=== PATIENT | female | born 1965 | race Caucasian/White ===

== ENCOUNTER → 2017-11-01 15:20 | Outpatient (CLI) | payer MEDICARE, MEDICAID, SELFPAY ==
[2017-11-01 17:20] LABS: Absolute Lymphocyte Count 2.15 X10^3/ul (0.83-4.51); Absolute Neutrophil Count 4.9 X10^3/uL (2.0-7.7); Basophil# 0.01 X10^3/uL; Basophil% 0.1 % (0-1); Eosinophil# 0.13 X10^3/uL; Eosinophils% 1.6 % (0-5); Hematocrit 39.1 % (37-47); Hemoglobin 12.7 g/dl (12.0-15.0); Lymphocyte # 2.15 X10^3/ul (4.0); Lymphocyte % 27.2 % (19-41); Mean Corp Hgb Conc 32.5 g/gl (32-36); Mean Corpuscular Volume 92.4 fL (81-99); Mean Platelet Vol. 9.5 fl (6.2-12.0); Monocyte# 0.69 X10^3/uL; Monocyte% 8.7 % (0-10); Neutrophil # 4.86 X10^3/uL (2.7-7.7); Neutrophil % 61.6 % (47-70); Platelet Count 293 K/mm3 (150-450); RBC Distribution Width CV 14.3 % (11.6-14.6); RBC Distribution Width SD 46.8 fl (35.1-43.9); Red Blood Count 4.23 M/mm3 (4.2-5.4); White Blood Count 7.9 K/mm3 (4.4-11.0)
[2017-11-01 17:30] LABS: POSITIVE COUNT NO; POSITIVE DIFFERENTIAL NO; POSITIVE MORPHOLOGY NO
[2017-11-01 17:31] LABS: ALB/GLOB Ratio 0.7 RATIO (0.9-2.4); AST(SGOT) 21 U/L (15-37); Alanine Aminotransfer ALT/SGPT 36 U/L (13-56); Albumin, Serum 3.3 g/dL (3.2-5.0); Alkaline Phosphatase 97 U/L (45-117); Anion Gap 9 (5-15); BUN 18 mg/dL (7-18); BUN/Creat Ratio 35.2 RATIO (10-20); Calcium,Total 8.4 mg/dL (8.5-10.1); Chloride 100 mmol/L (98-107); Creatinine, Serum 0.51 mg/dL (0.55-1.02); EST Glomerular Filtration Rate 133 mL/min (>60); Est Glom Filt Rate - Afr Amer 161 mL/min (>60); Globulin 4.7 g/dL (2.2-4.2); Glucose 91 mg/dL (74-106); Potassium 3.8 mmol/L (3.5-5.1); Sodium Level 140 mmol/L (136-145); Thyroid Stim Hormone (TSH) 1.01 uIU/mL (0.358-3.74)
[2017-11-03 10:28] LABS: Vitamin D,25 Hydroxy 67.4 ng/mL (19.95-100.01)
== END ==
PROVIDERS: Family Provider Family Medicine Geriatric Medicine; PCP Family Medicine Geriatric Medicine; Visit Provider Family Medicine Geriatric Medicine
DX: E11.9 Type 2 diabetes mellitus without complications (principal); E55.9 Vitamin D deficiency, unspecified; I10 Essential (primary) hypertension
CPT/HCPCS: 36415; 80053; 82306; 84443; 85025

== ENCOUNTER → 2017-11-24 12:44 | Outpatient (CLI) | payer MEDICARE, MEDICAID, SELFPAY | PROVIDERS: Family Provider Family Medicine Geriatric Medicine; PCP Family Medicine Geriatric Medicine; Visit Provider Family Medicine Geriatric Medicine | DX: R68.83 Chills (without fever) (principal) | CPT/HCPCS: 87633 ==

== ENCOUNTER → 2018-01-10 11:16 | Outpatient (CLI) | payer MEDICARE, MEDICAID, SELFPAY ==
--- NOTE | 2018-01-10 11:20 | RAD_ITS ---
STUDY: X-RAY - CERVICAL SPINE REASON FOR EXAM: Female, 52 years old. Chronic neck pain which has recently worsened. TECHNIQUE: 4 view(s) of the cervical spine were obtained. COMPARISON: August 03, 2010. FINDINGS: There are degenerative changes of the anterior atlantoaxial articulation. Normal odontoid process. Normal cervical lordosis. There is multi-level endplate spondylosis.. This is most marked at C5-6 and C6-7. Normal disc space heights. There is no evidence of acute fracture or loss of vertebral axial height. There is maintenance of normal alignment. The soft tissue structures are unremarkable. RAD/Cerv Spine 2 or 3 Views IMPRESSION: Stable degenerative changes of the cervical spine. Electronically Signed: Joes Donovan DO at 13:39 EDT Tel [phone], Service support ,
== END ==
PROVIDERS: Family Provider Family Medicine Geriatric Medicine; PCP Family Medicine Geriatric Medicine; Visit Provider Anesthesiology Pain Medicine
DX: M54.2 Cervicalgia (principal); M25.519 Pain in unspecified shoulder
CPT/HCPCS: 72040

== ENCOUNTER → 2018-03-09 12:26 | Outpatient (CLI) | payer MEDICARE, MEDICAID, SELFPAY | PROVIDERS: Family Provider Family Medicine Geriatric Medicine; PCP Family Medicine Geriatric Medicine; Visit Provider Family Medicine Geriatric Medicine | DX: R68.83 Chills (without fever) (principal) | CPT/HCPCS: 87633 ==

== ENCOUNTER → 2018-05-09 15:10 | Outpatient (CLI) | payer MEDICARE, MEDICAID, SELFPAY ==
[2018-05-09 16:17] LABS: Absolute Lymphocyte Count 2.68 X10^3/ul (0.83-4.51); Absolute Neutrophil Count 4.2 X10^3/uL (2.0-7.7); Basophil# 0.03 X10^3/uL; Basophil% 0.4 % (0-1); Eosinophil# 0.09 X10^3/uL; Eosinophils% 1.2 % (0-5); Hematocrit 43.3 % (37-47); Hemoglobin 14.1 g/dl (12.0-15.0); Lymphocyte # 2.68 X10^3/ul (4.0); Lymphocyte % 34.6 % (19-41); Mean Corp Hgb Conc 32.6 g/gl (32-36); Mean Corpuscular Hgb 30.3 pg (27.0-32.0); Mean Corpuscular Volume 93.1 fL (81-99); Mean Platelet Vol. 9.6 fl (6.2-12.0); Monocyte# 0.68 X10^3/uL; Monocyte% 8.8 % (0-10); Neutrophil # 4.23 X10^3/uL (2.7-7.7); Neutrophil % 54.5 % (47-70); Platelet Count 365 K/mm3 (150-450); RBC Distribution Width SD 46.1 fl (35.1-43.9); Red Blood Count 4.65 M/mm3 (4.2-5.4); White Blood Count 7.8 K/mm3 (4.4-11.0)
[2018-05-09 16:19] LABS: POSITIVE DIFFERENTIAL NO
[2018-05-09 16:20] LABS: POSITIVE COUNT NO; POSITIVE MORPHOLOGY NO
[2018-05-09 16:35] LABS: Vitamin D,25 Hydroxy 59.2 ng/mL (29.95-100.01)
[2018-05-09 16:37] LABS: ALB/GLOB Ratio 0.8 RATIO (0.9-2.4); AST(SGOT) 49 U/L (15-37); Alanine Aminotransfer ALT/SGPT 57 U/L (13-56); Albumin, Serum 3.6 g/dL (3.2-5.0); Alkaline Phosphatase 97 U/L (45-117); Anion Gap 9 (5-15); BUN 15 mg/dL (7-18); BUN/Creat Ratio 21.6 RATIO (10-20); Calcium,Total 8.3 mg/dL (8.5-10.1); Chloride 99 mmol/L (98-107); EST Glomerular Filtration Rate 94 mL/min (>60); Est Glom Filt Rate - Afr Amer 113 mL/min (>60); Globulin 4.7 g/dL (2.2-4.2); Glucose 174 mg/dL (74-106); Potassium 3.9 mmol/L (3.5-5.1); Protein, Total 8.3 g/dL (6.4-8.2); Sodium Level 138 mmol/L (136-145); Thyroid Stim Hormone (TSH) 1.57 uIU/mL (0.358-3.74)
[2018-05-11 14:20] LABS: Hep C Antibodies 0.1 s/co ratio (0.0-0.9)
== END ==
PROVIDERS: Family Provider Family Medicine Geriatric Medicine; PCP Family Medicine Geriatric Medicine; Visit Provider Family Medicine Geriatric Medicine
DX: E11.9 Type 2 diabetes mellitus without complications (principal); E55.9 Vitamin D deficiency, unspecified; I10 Essential (primary) hypertension; Z13.89 Encounter for screening for other disorder
CPT/HCPCS: 36415; 80053; 82306; 84443; 85025; 86803

== ENCOUNTER → 2018-08-14 15:37 | Outpatient (CLI) | payer MEDICARE, MEDICAID, SELFPAY ==
[2018-08-14 16:44] LABS: Absolute Lymphocyte Count 2.43 X10^3/ul (0.83-4.51); Absolute Neutrophil Count 4.5 X10^3/uL (2.0-7.7); Basophil# 0.01 X10^3/uL; Basophil% 0.1 % (0-1); Eosinophil# 0.11 X10^3/uL; Eosinophils% 1.4 % (0-5); Hematocrit 42.2 % (37-47); Hemoglobin 13.6 g/dl (12.0-15.0); Lymphocyte # 2.43 X10^3/ul (4.0); Lymphocyte % 31.9 % (19-41); Mean Corp Hgb Conc 32.2 g/gl (32-36); Mean Corpuscular Hgb 29.8 pg (27.0-32.0); Mean Corpuscular Volume 92.3 fL (81-99); Mean Platelet Vol. 9.5 fl (6.2-12.0); Monocyte# 0.56 X10^3/uL; Monocyte% 7.3 % (0-10); Neutrophil % 59.2 % (47-70); Platelet Count 351 K/mm3 (150-450); RBC Distribution Width CV 14.4 % (11.6-14.6); RBC Distribution Width SD 47.8 fl (35.1-43.9); Red Blood Count 4.57 M/mm3 (4.2-5.4); White Blood Count 7.6 K/mm3 (4.4-11.0)
[2018-08-14 17:00] LABS: POSITIVE COUNT NO; POSITIVE DIFFERENTIAL NO; POSITIVE MORPHOLOGY NO
[2018-08-14 17:13] LABS: Vitamin D,25 Hydroxy 84.6 ng/mL (29.95-100.01)
[2018-08-14 17:14] LABS: ALB/GLOB Ratio 0.7 RATIO (0.9-2.4); AST(SGOT) 31 U/L (15-37); Alanine Aminotransfer ALT/SGPT 42 U/L (13-56); Albumin, Serum 3.5 g/dL (3.2-5.0); Alkaline Phosphatase 116 U/L (45-117); Anion Gap 9 (5-15); BUN 14 mg/dL (7-18); BUN/Creat Ratio 21.5 RATIO (10-20); Calcium,Total 8.7 mg/dL (8.5-10.1); Chloride 101 mmol/L (98-107); Creatinine, Serum 0.65 mg/dL (0.55-1.02); EST Glomerular Filtration Rate 101 mL/min (>60); Est Glom Filt Rate - Afr Amer 122 mL/min (>60); Globulin 4.7 g/dL (2.2-4.2); Glucose 151 mg/dL (74-106); Potassium 4.1 mmol/L (3.5-5.1); Protein, Total 8.2 g/dL (6.4-8.2); Sodium Level 142 mmol/L (136-145); Thyroid Stim Hormone (TSH) 2.11 uIU/mL (0.358-3.74); Uric Acid 3.9 mg/dL (2.6-6.0)
== END ==
PROVIDERS: Family Provider Family Medicine Geriatric Medicine; PCP Family Medicine Geriatric Medicine; Visit Provider Family Medicine Geriatric Medicine
DX: E11.9 Type 2 diabetes mellitus without complications (principal); E55.9 Vitamin D deficiency, unspecified; I10 Essential (primary) hypertension; M10.9 Gout, unspecified
CPT/HCPCS: 36415; 80053; 82306; 84443; 84550; 85025

== ENCOUNTER → 2018-10-18 10:44 | Outpatient (CLI) | payer MEDICARE, MEDICAID, SELFPAY ==
[2018-10-18 10:29] VITALS: BMI 41.0
--- NOTE | 2018-10-18 10:46 | RAD_ITS ---
STUDY: X-RAY - LEFT KNEE REASON FOR EXAM: Female, 53 years old. Pain. TECHNIQUE: 4 view(s) of the knee. COMPARISON: None. FINDINGS: Normal visualized distal femur. Normal visualized proximal tibia and fibula. Normal proximal tibiofibular articulation. There is moderate degenerative arthrosis of the medial femorotibial compartment with moderate joint space narrowing. There is moderate degenerative arthrosis of the lateral femorotibial compartment with moderate joint space narrowing. There is moderate degenerative arthrosis of the patellofemoral articulation. There is a soft tissue prominence in the suprapatellar region suggesting a small volume joint effusion. The soft tissue structures are unremarkable. RAD/Knee 4 or More Views IMPRESSION: Degenerative arthrosis. Small joint effusion. Electronically Signed: Dannielle Leroy MD at 22:47 EST Tel , Service support ,
--- NOTE | 2018-10-18 10:46 | RAD_ITS ---
STUDY: X-RAY - RIGHT KNEE REASON FOR EXAM: Female, 53 years old. Pain. TECHNIQUE: 4 view(s) of the knee. COMPARISON: None. FINDINGS: Normal visualized distal femur. Normal visualized proximal tibia and fibula. Normal proximal tibiofibular articulation. There is no demonstrated fracture. There is mild degenerative arthrosis of the medial femorotibial compartment. Normal lateral femorotibial compartment. There is mild degenerative arthrosis of the patellofemoral articulation. There is no demonstrated joint effusion. The soft tissue structures are unremarkable. RAD/Knee 4 or More Views IMPRESSION: Mild degenerative changes. No acute abnormalities. Electronically Signed: Ivan Dovre MD at 16:00 EST , Service support ,
== END ==
PROVIDERS: Family Provider Family Medicine Geriatric Medicine; PCP Family Medicine Geriatric Medicine; Referring Provider Orthopaedic Surgery; Visit Provider Orthopaedic Surgery
DX: M25.561 Pain in right knee (principal); M25.562 Pain in left knee
CPT/HCPCS: 73564

== ENCOUNTER → 2019-01-02 | Outpatient (CLI) | payer MEDICARE, MEDICAID, SELFPAY ==
[2018-11-08 10:05] VITALS: BMI 41.0
== END | disposition home or self-care (01) ==
LOC: PSN 09:15
PROVIDERS: Family Provider Family Medicine Geriatric Medicine; PCP Family Medicine Geriatric Medicine; Referring Provider Family Medicine Geriatric Medicine; Visit Provider Family Medicine Geriatric Medicine
DX: R68.83 Chills (without fever) (principal)
CPT/HCPCS: 87633

== ENCOUNTER → 2019-01-29 | Outpatient (CLI) | payer MEDICARE, MEDICAID, SELFPAY ==
[2018-11-08 10:05] VITALS: BMI 41.0
--- NOTE | 2019-01-29 17:16 | RAD_ITS ---
STUDY: X-RAY CHEST REASON FOR EXAM: Female, 53 years old. Shortness of breath TECHNIQUE: PA and lateral views of the chest COMPARISON: X-Ray Chest history 2016 FINDINGS: Mild bibasilar atelectasis is present. There is no consolidation. There are no pleural effusions. There is no pneumothorax. The heart is normal in size. The visualized osseous structures are within normal limits. RAD/Chest PA and Lateral IMPRESSION: No acute thoracic pathology. Electronically Signed: Tereso Harrison, at 17:59 EDT Tel , Service support ,
== END | disposition home or self-care (01) ==
LOC: RAD 17:12
PROVIDERS: Family Provider Family Medicine Geriatric Medicine; PCP Family Medicine Geriatric Medicine; Referring Provider Family Medicine Geriatric Medicine; Visit Provider Family Medicine Geriatric Medicine
DX: J40 Bronchitis, not specified as acute or chronic (principal); R68.83 Chills (without fever)
CPT/HCPCS: 71046; 87633

== ENCOUNTER → 2019-01-31 | Outpatient (CLI) | payer MEDICARE, MEDICAID, SELFPAY ==
[2018-11-08 10:05] VITALS: BMI 41.0
[2019-01-31 17:36] LABS: Absolute Lymphocyte Count 2.68 X10^3/ul (0.83-4.51); Absolute Neutrophil Count 5.7 X10^3/uL (2.0-7.7); Basophil# 0.01 X10^3/uL; Basophil% 0.1 % (0-1); Eosinophil# 0.02 X10^3/uL; Eosinophils% 0.2 % (0-5); Hematocrit 41.2 % (37-47); Hemoglobin 13.3 g/dl (12.0-15.0); Lymphocyte # 2.68 X10^3/ul (4.0); Lymphocyte % 28.9 % (19-41); Mean Corp Hgb Conc 32.3 g/gl (32-36); Mean Corpuscular Hgb 29.4 pg (27.0-32.0); Mean Corpuscular Volume 90.9 fL (81-99); Mean Platelet Vol. 9.5 fl (6.2-12.0); Monocyte# 0.81 X10^3/uL; Monocyte% 8.7 % (0-10); Neutrophil # 5.69 X10^3/uL (2.7-7.7); Neutrophil % 61.6 % (47-70); Platelet Count 365 K/mm3 (150-450); RBC Distribution Width CV 15.3 % (11.6-14.6); RBC Distribution Width SD 49.2 fl (35.1-43.9); Red Blood Count 4.53 M/mm3 (4.2-5.4); White Blood Count 9.3 K/mm3 (4.4-11.0)
[2019-01-31 17:48] LABS: POSITIVE COUNT NO; POSITIVE DIFFERENTIAL NO; POSITIVE MORPHOLOGY NO
[2019-01-31 17:53] LABS: ALB/GLOB Ratio 0.8 RATIO (0.9-2.4); AST(SGOT) 24 U/L (15-37); Alanine Aminotransfer ALT/SGPT 39 U/L (13-56); Albumin, Serum 3.5 g/dL (3.2-5.0); Alkaline Phosphatase 96 U/L (45-117); Anion Gap 7 (5-15); BUN 18 mg/dL (7-18); BUN/Creat Ratio 24.3 RATIO (10-20); Calcium,Total 8.8 mg/dL (8.5-10.1); Chloride 108 mmol/L (98-107); Creatinine, Serum 0.74 mg/dL (0.55-1.02); EST Glomerular Filtration Rate 87 mL/min (>60); Est Glom Filt Rate - Afr Amer 105 mL/min (>60); Globulin 4.2 g/dL (2.2-4.2); Glucose 82 mg/dL (74-106); Potassium 3.7 mmol/L (3.5-5.1); Protein, Total 7.7 g/dL (6.4-8.2); Sodium Level 141 mmol/L (136-145); Thyroid Stim Hormone (TSH) 0.34 uIU/mL (0.358-3.74)
[2019-01-31 17:55] LABS: Vitamin D,25 Hydroxy 88.5 ng/mL (29.95-100.01)
== END | disposition home or self-care (01) ==
LOC: POLAB3 16:19
PROVIDERS: Family Provider Family Medicine Geriatric Medicine; PCP Family Medicine Geriatric Medicine; Visit Provider Family Medicine Geriatric Medicine
DX: E11.9 Type 2 diabetes mellitus without complications (principal); E55.9 Vitamin D deficiency, unspecified; I10 Essential (primary) hypertension
CPT/HCPCS: 36415; 80053; 82306; 84443; 85025

== ENCOUNTER → 2019-05-30 11:21 | Outpatient (CLI) | payer MEDICARE, MEDICAID, SELFPAY ==
[2018-11-08 10:05] VITALS: BMI 41.0
[2019-05-30 17:35] LABS: Absolute Lymphocyte Count 1.79 X10^3/uL (0.83-4.51); Absolute Neutrophil Count 4.7 X10^3/uL (2.0-7.7); Basophil# 0.02 X10^3/uL; Basophil% 0.3 % (0-1); Eosinophil# 0.06 X10^3/uL; Eosinophils% 0.8 % (0-5); Hemoglobin 13.4 g/dL (12.0-15.0); Lymphocyte # 1.79 X10^3/ul (4.0); Lymphocyte % 24.9 % (19-41); Mean Corp Hgb Conc 31.9 g/dL (32-36); Mean Corpuscular Hgb 30.4 pg (27.0-32.0); Mean Corpuscular Volume 95.2 fL (81-99); Mean Platelet Vol. 9.4 fl (6.2-12.0); Monocyte# 0.56 X10^3/uL; Monocyte% 7.8 % (0-10); NRBC Flagged by Analyzer 0.4 % (0-5); Neutrophil # 4.69 X10^3/uL (2.7-7.7); Neutrophil % 65.4 % (47-70); Platelet Count 325 K/mm3 (150-450); RBC Distribution Width CV 14.1 % (11.6-14.6); RBC Distribution Width SD 48.5 fl (35.1-43.9); Red Blood Count 4.41 M/mm3 (4.2-5.4); White Blood Count 7.2 K/mm3 (4.4-11.0)
[2019-05-30 17:55] LABS: Vitamin D,25 Hydroxy 80.1 ng/mL (29.95-100.01)
[2019-05-30 17:57] LABS: ALB/GLOB Ratio 0.8 RATIO (0.9-2.4); AST(SGOT) 25 U/L (15-37); Alanine Aminotransfer ALT/SGPT 34 U/L (13-56); Albumin, Serum 3.3 g/dL (3.2-5.0); Alkaline Phosphatase 101 U/L (45-117); Anion Gap 9 (5-15); BUN 18 mg/dL (7-18); BUN/Creat Ratio 27.1 RATIO (10-20); Calcium,Total 8.1 mg/dL (8.5-10.1); Chloride 105 mmol/L (98-107); Creatinine, Serum 0.66 mg/dL (0.55-1.02); EST Glomerular Filtration Rate 98 mL/min (>60); Est Glom Filt Rate - Afr Amer 119 mL/min (>60); Globulin 4.4 g/dL (2.2-4.2); Glucose 148 mg/dL (74-106); Protein, Total 7.7 g/dL (6.4-8.2); Sodium Level 142 mmol/L (136-145); Thyroid Stim Hormone (TSH) 0.21 uIU/mL (0.358-3.74)
== END ==
PROVIDERS: Family Provider Family Medicine Geriatric Medicine; PCP Family Medicine Geriatric Medicine; Visit Provider Family Medicine Geriatric Medicine
DX: E11.9 Type 2 diabetes mellitus without complications (principal); E55.9 Vitamin D deficiency, unspecified; I10 Essential (primary) hypertension
CPT/HCPCS: 36415; 80053; 82306; 84443; 85025

== ENCOUNTER → 2019-06-20 16:42 | Outpatient (CLI) | payer MEDICARE, MEDICAID, SELFPAY ==
[2018-11-08 10:05] VITALS: BMI 41.0
--- NOTE | 2019-06-20 16:44 | BI_ITS ---
BILATERAL DIGITAL MAMMOGRAM WITH TOMOSYNTHESIS: Mediolateraloblique and craniocaudal views demonstrate no evidence of dominant parenchymal masses. No cluster of microcalcifications or architectural distortion is seen. No evidence of skin thickening is identified. There has been no significant change since 04/15/2015 . Breast Density: The breast tissue is almost entirely fatty. CAD was used to assist in final assessment. BI/SCREEN MAMM (CAD) W/RACHAEL BILAT IMPRESSION: NORMAL MAMMOGRAM BILATERALLY.) ASSESSMENT CATEGORY: FINAL ASSESSMENT: BI-RAD CATEGORY I (NEGATIVE) YEARLY MAMMOGRAPHY RECOMMENDED Approximately 10% of breast cancers are not detected by mammography. A normal mammogram should not delay biopsy of a clinically suspicious abnormality. [id number] Electronically Signed: Phuc Strange, at 18:02 EDT Tel , Service support ,
== END ==
PROVIDERS: Family Provider Family Medicine Geriatric Medicine; PCP Family Medicine Geriatric Medicine; Referring Provider Family Medicine Geriatric Medicine; Visit Provider Family Medicine Geriatric Medicine
DX: Z12.31 Encounter for screening mammogram for malignant neoplasm of breast (principal)
CPT/HCPCS: 77063; 77067

== ENCOUNTER → 2019-08-28 15:45 | Outpatient (CLI) | payer MEDICARE, MEDICAID, SELFPAY ==
[2018-11-08 10:05] VITALS: BMI 41.0
[2019-08-28 17:18] LABS: Absolute Lymphocyte Count 2.65 X10^3/uL (0.83-4.51); Absolute Neutrophil Count 3.7 X10^3/uL (2.0-7.7); Basophil# 0.04 X10^3/uL; Basophil% 0.6 % (0-1); Eosinophil# 0.07 X10^3/uL; Hematocrit 43.3 % (37-47); Hemoglobin 13.9 g/dL (12.0-15.0); Lymphocyte # 2.65 X10^3/ul (4.0); Lymphocyte % 37.3 % (19-41); Mean Corp Hgb Conc 32.1 g/dL (32-36); Mean Corpuscular Hgb 30.6 pg (27.0-32.0); Mean Corpuscular Volume 95.4 fL (81-99); Mean Platelet Vol. 9.4 fl (6.2-12.0); Monocyte# 0.59 X10^3/uL; Monocyte% 8.3 % (0-10); NRBC Flagged by Analyzer 0 % (0-5); Neutrophil # 3.71 X10^3/uL (2.7-7.7); Neutrophil % 52.1 % (47-70); Platelet Count 326 K/mm3 (150-450); RBC Distribution Width CV 14.9 % (11.6-14.6); RBC Distribution Width SD 50.6 fl (35.1-43.9); Red Blood Count 4.54 M/mm3 (4.2-5.4); White Blood Count 7.1 K/mm3 (4.4-11.0)
[2019-08-28 17:37] LABS: Vitamin D,25 Hydroxy 65.3 ng/mL (29.95-100.01)
[2019-08-28 17:55] LABS: ALB/GLOB Ratio 0.8 RATIO (0.9-2.4); AST(SGOT) 32 U/L (15-37); Alanine Aminotransfer ALT/SGPT 39 U/L (13-56); Albumin, Serum 3.6 g/dL (3.2-5.0); Alkaline Phosphatase 109 U/L (45-117); Anion Gap 5 (5-15); BUN 16 mg/dL (7-18); BUN/Creat Ratio 21.3 RATIO (10-20); Calcium,Total 8.1 mg/dL (8.5-10.1); Chloride 100 mmol/L (98-107); Creatinine, Serum 0.75 mg/dL (0.55-1.02); EST Glomerular Filtration Rate 85 mL/min (>60); Est Glom Filt Rate - Afr Amer 103 mL/min (>60); Globulin 4.4 g/dL (2.2-4.2); Glucose 148 mg/dL (74-106); Potassium 3.5 mmol/L (3.5-5.1); Sodium Level 138 mmol/L (136-145)
== END ==
PROVIDERS: Family Provider Family Medicine Geriatric Medicine; PCP Family Medicine Geriatric Medicine; Visit Provider Family Medicine Geriatric Medicine
DX: E11.9 Type 2 diabetes mellitus without complications (principal); E55.9 Vitamin D deficiency, unspecified; I10 Essential (primary) hypertension
CPT/HCPCS: 36415; 80053; 82306; 84443; 85025

== ENCOUNTER → 2019-10-24 15:57 | Outpatient (CLI) | payer MEDICARE, MEDICAID, SELFPAY ==
[2019-10-16 11:46] VITALS: BMI 41.0
--- NOTE | 2019-10-24 16:01 | CT_ITS ---
HISTORY: [facility] PLANNING TECHNIQUE: Noncontrast bone protocol CT of the left lower extremity was performed without contrast per [facility] planning protocol. 2D reformats were performed by the technologist. Number of images including paperwork: [phone]. A radiation dose optimization technique was used for this scan. COMPARISON: Left knee 10/18/2018 FINDINGS: BONES: No acute fracture. JOINTS: No subluxation. Mild to moderate degenerative changes of the right hip. Severe tricompartmental degenerative changes. Small to moderate sized left knee joint effusion. SOFT TISSUES: Vascular calcifications. FOREIGN BODY: No radiopaque foreign body. Moderate amount of stool in the visualized colon. CT/Extremity Lower without Contra IMPRESSION: No acute findings. Severe degenerative changes of the left knee. Left knee joint effusion. Individualized dose optimization techniques were used for this CT. at 0547 Reported and signed by: Charissa Michelle MD Electronically Signed: Charissa Michelle MD at 5:46 EST Tel , Service support ,
== END ==
PROVIDERS: PCP Family Medicine Geriatric Medicine; Referring Provider Orthopaedic Surgery; Visit Provider Orthopaedic Surgery
DX: M17.12 Unilateral primary osteoarthritis, left knee (principal)
CPT/HCPCS: 73700

== ENCOUNTER 2019-11-12 10:30 | Observation (INO) | payer MEDICARE, MEDICAID, SELFPAY ==
[2019-10-16 11:46] VITALS: BMI 41.0
[2019-10-28 14:38] VITALS: BMI 41.0
[2019-10-29 11:03] VITALS: BP 117/72; PULSE 86; RESP 16; TEMP 36.6; O2SAT 94; BMI 38.9
--- NOTE | 2019-10-29 11:10 | SDCEKG_ITS ---
Test Reason : Blood Pressure : / mmHG Vent. Rate : 082 BPM Atrial Rate : 082 BPM P-R Int : 152 ms QRS Dur : 086 ms QT Int : 382 ms P-R-T Axes : 047 -08 019 degrees QTc Int : 446 ms Normal sinus rhythm Normal ECG Confirmed by JONI VEGA, TEJAS ([id number]), fashion editor JG JUAREZ ([id number]) on 10/30/2019 9:19:39 AM Referred By: Clyde Almanza Confirmed By:TEJAS QUINONES MD
[2019-10-29 11:39] LABS: Hematocrit 40.2 % (37-47); Hemoglobin 13.1 g/dL (12.0-15.0); Mean Corp Hgb Conc 32.6 g/dL (32-36); Mean Corpuscular Hgb 30.8 pg (27.0-32.0); Mean Corpuscular Volume 94.4 fL (81-99); Platelet Count 294 K/mm3 (150-450); RBC Distribution Width CV 14.4 % (11.6-14.6); RBC Distribution Width SD 49.4 fl (35.1-43.9); Red Blood Count 4.26 M/mm3 (4.2-5.4); White Blood Count 5.7 K/mm3 (4.4-11.0)
[2019-10-29 11:48] LABS: Prothrombin Time (Protime)PT. 13.3 SECONDS (11.7-14.9)
[2019-10-29 11:49] LABS: Partial Thromboplast Time 29.2 Seconds (24.1-36.2)
[2019-10-29 12:03] LABS: AST(SGOT) 24 U/L (15-37); Alanine Aminotransfer ALT/SGPT 32 U/L (13-56); Albumin, Serum 3.2 g/dL (3.2-5.0); Alkaline Phosphatase 86 U/L (45-117); Anion Gap 6 (5-15); BUN 16 mg/dL (7-18); Bilirubin, Direct 0.14 mg/dL (0.00-0.30); Calcium,Total 7.7 mg/dL (8.5-10.1); Chloride 108 mmol/L (98-107); Creatinine, Serum 0.73 mg/dL (0.55-1.02); EST Glomerular Filtration Rate 88 mL/min (>60); Est Glom Filt Rate - Afr Amer 107 mL/min (>60); Estimated Creatinine Clearance 87.84 ml/min; Glucose 98 mg/dL (74-106); Potassium 3.8 mmol/L (3.5-5.1); Protein, Total 7.2 g/dL (6.4-8.2); Sodium Level 143 mmol/L (136-145); Thyroid Stim Hormone (TSH) 2.62 uIU/mL (0.358-3.74)
[2019-10-29 12:12] LABS: Hemoglobin A1c 6.7 % (4.2-6.3)
--- NOTE | 2019-11-11 15:06 | PCM.HP.BLA ---
History and Physical Date of Admission: 11/11/19 Intake Vital Signs 10/28/19 BMI 41.0 Intake Visit Reasons: left knee Is patient in pain?: Yes Allergies latex Allergy (Verified 10/18/18 10:29) Rash tetanus and diphtheria toxoids [Tetanus&Diphtheria Toxoid] Allergy (Verified 10/18/18 10:29) Anaphylaxis Medications Albuterol Aerosols [Ventolin Aerosols] 2.5 mg INHALATION Q6H PRN 11/13/15 [History Confirmed 10/28/19] Aspirin [Aspirin, Baby] 81 mg PO DAILY@0800 11/13/15 [History Confirmed 10/28/19] Calcium Carbonate/Vitamin D3 [Oysco D Tablet] 1 ea PO DAILY 11/13/15 [History Confirmed 10/28/19] Ferrous Sulfate [Iron Supplement] 325 mg PO DAILY 11/13/15 [History Confirmed 10/28/19] Atorvastatin Calcium [Lipitor] 80 mg PO QHS 04/28/16 [History Confirmed 10/28/19] Albuterol IH (ProAir) [Proair Hfa] 2 puff INHALATION 4X/DAY PRN PRN #1 inhaler 10/07/16 [Rx Confirmed 10/28/19] Duloxetine Hcl [Cymbalta] 120 mg PO QHS #60 cap 10/07/16 [Rx Confirmed 10/28/19] Acetaminophen [Tylenol Tablet] 650 mg PO Q6H PRN PRN tab 04/21/17 [Rx Confirmed 10/28/19] Cilostazol [Pletal] 100 mg PO BIDAC #1 tab 05/06/17 [Rx Confirmed 10/28/19] celecoxib 200 mg capsule 200 mg PO DAILY 10/18/18 [History Confirmed 10/28/19] cyclobenzaprine 10 mg tablet 10 mg PO TID 10/18/18 [History Confirmed 10/28/19] empagliflozin 25 mg tablet 25 mg PO DAILY 10/18/18 [History Confirmed 10/28/19] levothyroxine 175 mcg tablet 175 mcg PO DAILY 10/18/18 [History Confirmed 10/28/19] lisinopril 5 mg tablet 5 mg PO DAILY 10/18/18 [History Confirmed 10/28/19] loratadine 10 mg capsule 10 mg PO DAILY 10/18/18 [History Confirmed 10/28/19] metformin 1,000 mg tablet 1,000 mg PO DAILY 10/18/18 [History Confirmed 10/28/19] metoprolol succinate 200 mg capsule sprinkle, ext. release 24 hr 200 mg PO DAILY 10/18/18 [History Confirmed 10/28/19] montelukast 10 mg tablet 10 mg PO QPM 10/18/18 [History Confirmed 10/28/19] omeprazole 40 mg capsule,delayed release 40 mg PO DAILY 10/18/18 [History Confirmed 10/28/19] hydrocodone 5 mg-acetaminophen 325 mg tablet 1 tab PO Q6H PRN tab 10/16/19 [History Confirmed 10/28/19] PFSH Medical History (Updated 09/13/17 @ 09:21 by Yudy Coon MD) Depression (Acute) Dermatitis (Acute) Hyperlipemia (Acute) Social History (Updated 10/28/19 @ 15:21 by Clyde Almanza DO) Smoking Status: Former smoker HPI left knee: Details: Parts of this documentation were recorded by a scribe, this documentation accurately reflects the service provided and the decisions made by me, Clyde Almanza DO 10/28/19 0754. REMI TREVINO is a 54 year old F here today for left knee pain and patient does state that she had a recent fall. She tripped and landed directly on the anterior left knee, there is a scab over the abrasion she got. Denies numbness, tingling or other associated symptoms. Patient is ambulating with a cane today. ROS Musc Reports as per HPI, Reports abnormal walking, Reports joint pain, Reports muscle weakness Skin/Breast Reports system reviewed and no additional complaints, except as docu Neuro Yes system reviewed and no additional complaints, except as docu, Yes abnormal walking Ortho Exam Left Knee Skin/Wound: No ecchymosis, No erythema, Yes swelling Knee ROM: Yes ROM-Extension -20 to 0, No ROM-Flexion 0-140 Examination: Yes Pain with flexion KNEE: abrasion anterior left knee with scabbing no sign of infection. Office Procedures Iovera Details:: Preoperative diagnosis : left knee pain Postoperative diagnosis: Same Procedure: Cryotherapy with Iovera device to anterior femoral cutaneous nerve and 2 branches of the infrapatellar saphenous nerve III nerves in total Description of procedure: Patient was brought back to the procedure room the operative extremity was identified by both patient and physician. The PIP flexion crease was measured to the midpoint of the patella and this distance was divided in 3 resulting in 10 cm location proximal to the midpoint of the patella. This line was extended medial and lateral to the extent of the edges of the patella. This was our treatment line for the anterior femoral cutaneous nerve. A second treatment line was made 5 cm medial to the inferior pole of the patella and 5 cm distally. The leg was prepped with alcohol and Betadine. Lidocaine with epi was used along the treatment lines. Using the Iovera device treatment lines were treated with 1 minute cycles. Reproduction of paresthesias was monitored in the area of nerve distribution. Once all 3 nerves were treated across the 2 treatment lines patient was cleaned and a light dressing with 4 x 4 and Mustapha wrap was applied. Patient tolerated the procedure without complication. Assessment & Plan Problems 1. Chronic pain of left knee M25.562; G89.29 Plan Instructed to do all normal activities, allow for healing of the abrasion. Instructed to stop her Aspirin one week prior to her surgery. Reviewed the risk of increased swelling due to her current lower leg edema and that she will go home with compression stockings. Follow up post op or sooner if pain, swelling, numbness or associated symptoms, or concerns develop. All questions answered. Patient in agreement of plan. Orders Orders: Iovera Today M25.569 Coding Level of Care Code Attention Framing Consultant Diagnoses Chronic pain of left knee M25.562; G89.29 ??Chronicity: chronic I have re-examined the patient. There are no clinical changes since date of exam
[2019-11-12] VITALS (10 sets, daily range): BP systolic 94–112; BP diastolic 54–85; PULSE 80–99; RESP 16–18; TEMP 36.3–36.9; O2SAT 91–100; BMI 40.6
[2019-11-12 06:16] LABS: Bedside Glucose 161 mg/dL (70-110)
[2019-11-12] MEDS: Acetaminophen 500 MG Tablet 1000 MG PO ×3 (06:21→22:30)
[2019-11-12] MEDS: Scopolamine 1mg/72hr Patch 1 PATCH TRANSDERM. (06:21)
[2019-11-12] MEDS: Gabapentin 600 MG Tablet PO (06:22)
[2019-11-12] MEDS: Celecoxib 200 MG Capsule 400 MG PO (06:22)
[2019-11-12] MEDS: Lactated Ringers 1,000 ML 100 ML IV (06:23)
[2019-11-12 06:34] LABS: Magnesium 1.4 mg/dL (1.6-2.6)
[2019-11-12] MEDS: dexAMETHasone 10 MG/ML Vial IV (08:03)
[2019-11-12] MEDS: Lactated Ringers 1,000 ML 125 ML IV (09:00)
[2019-11-12] MEDS: Epinephrine (1 mg/ml) 1 MG/ML VIAL (09:39)
[2019-11-12] MEDS: Bupivacaine 0.5% PF 10 ML VIAL (09:40)
[2019-11-12] MEDS: Betamethasone/Betamethasone 30 MG/5 ML Vial (09:40)
[2019-11-12] MEDS: 0.9% Normal Saline (Pres. free 10 ML Vial (09:40)
--- NOTE | 2019-11-12 10:34 | OP.PCM_ITS ---
Report of Operation Date of Procedure: 11/12/19 Description of Surgical Findings:: Preoperative diagnosis: Left knee DJD Postoperative diagnosis: Same Procedure: Left total knee arthroplasty CT guided Robotic Assisted Implant: Kt triathlon press-fit femoral component size 5, press-fit tibial baseplate size 4, cemented asymmetric patella size 35 polyethylene X3 size 9 CS Anesthesia: Spinal with adductor canal block Tourniquet time: 0 minutes Complications: None Condition: Stable to PACU Estimated blood loss: 150 cc Indication for procedure: This is a 54-year-old female with long standing degenerative joint disease of the knee who has failed conservative treatment and wished to proceed with elective total knee arthroplasty. Risk benefits and alternatives were reviewed including; risk of bleeding, infection, nerve artery and tissue damage, continued pain, postoperative stiffness, venous thrombo embolism, need for postoperative rehabilitation, mechanical feel to the knee, and expected postoperative course. The operative CT and templating was performed with component sizing Procedure: The patient was met in the preoperative holding area. The operative extremity was identified by both patient and physician and was marked. Patient was met by anesthesia. An adductor canal block was placed by anesthesia postoperatively the patient was brought back to the operating room on a wheeled cart and transferred to the operating table in the supine position. Anesthesia was started. A well-padded tourniquet was placed on the operative extremity. The patient was prepped and draped in the usual sterile fashion. A timeout was called to ensure the proper patient procedure and extremity were being contemplated. An Esmarch was used to exsanguinate the extremity. The tourniquet was inflated. A 10 blade scalpel was used to make a midline incision down through the skin and subcutaneous tissue. Skin retractors placed. Bovie was used to perform meticulous hemostasis. full-thickness flaps were elevated medial and lateral along the joint capsule. A deep blade scalpel was used to perform a medial parapatellar arthrotomy. The knee was brought to full extension. A Bovie was used to release the soft tissues off the most proximal aspect of the medial tibial plateau a three-quarter inch curved osteotome was also used for this process. The infrapatellar fat pad was excised. The fat pad was excised partially anterior lateral portion the anterior medial was elevated from the femur. At this point our intra-articular femoral array was placed of a 45 degree angle proximal and posterior to the medial epicondyle. Our tibial array was placed greater than 1 hands breath below the incision at a 20 degree angle stab incisions were used for this case were attached and checked with the robotic software. At this point registration cross were taken throughout the knee as well as checkpoints placed in the femur and tibia once the knee was registered then tensioned the medial and lateral ligaments in extension and 90 degrees of flexion. We then used these numbers to adjust our components within parameters to balance the knee in both flexion and extension once this was done on our monitor we then proceeded with using the robotic arm to make our tibial plateau cut and anterior posterior and chamfer cuts on the femur we then trialed and achieved the desired plan with a well-balanced knee. Lug holes were drilled in the femur the tibia preparation was completed with a fin punch and the patella was prepared by first using a caliper to ensure sufficient bone stock and a patellar reamer to remove the desired amount of bone locals were drilled for an asymmetric poly-. We then brought the knee through range of motion with excellent patellar tracking. We thoroughly irrigated the knee with a trial components were removed a posterior capsular injection with her standard [place] was performed the aqua Toi was also used to aid in hemostasis. Betadine rinse was allowed to sit and washed out components were press-fit into place never the patellar component did not have as well of a tight fit and it was decided to cement the patellar component only. Aricept rinse was then used followed by several more rate liters of irrigation after it was allowed to sit. Joint capsule was closed with #1 Ethibond [id number] followed by Vicryl in the subcutaneous tissues staple in the skin arrays and checkpoints were removed prior to closure all counts were correct stab incisions were closed with a stable standard dressing in the form of Mepilex for the main incision Xeroform 4 x 4 and Tegaderm over pin site holes web roll and Mustapha wrap applied from the foot to the groin. Patient tolerated the procedure well she was directed to PACU in stable condition no intraoperative complications
--- NOTE | 2019-11-12 11:10 | RAD_ITS ---
STUDY: X-RAY - LEFT KNEE REASON FOR EXAM: Female, 54 years old. POST OP TECHNIQUE: 2 view(s) of the knee. COMPARISON: FINDINGS: Normal visualized distal femur. Normal visualized proximal tibia and fibula. Normal proximal tibiofibular articulation. Status post interval recent knee arthroplasty with subcutaneous emphysema and skin tawny.. The soft tissue structures are unremarkable. RAD/Knee 1 or 2 Views IMPRESSION: Status post interval recent total knee arthroplasty. Electronically Signed: Favian Bryant MD at 12:35 EST Tel , Service support ,
[2019-11-12] MEDS: Cefazolin 1 GM/50 ML BAG IV ×2 (11:30→19:00)
[2019-11-12 11:51] LABS: Bedside Glucose 134 mg/dL (70-110)
[2019-11-12] MEDS: oxyCODONE 5 MG Tablet PO ×2 (13:18→19:45)
--- NOTE | 2019-11-12 22:04 | PCM.CONS.GEN ---
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: with assisted use Diabetes mellitus complication status: with circulatory complication Diabetes mellitus complication detail: with other circulatory complications Qualified Code(s): E11.59 - Type 2 diabetes mellitus with other circulatory complications; Z79.4 - [facility] (current) use of insulin Comment: poorly controlled diabetic foot Charcot joints (3) HTN (hypertension) Status: Chronic Qualifiers: Hypertension type: essential hypertension Qualified Code(s): I10 - Essential (primary) hypertension (4) Dyslipidemia Status: Chronic (5) Mild intermittent asthma Status: Chronic Qualifiers: Asthma complication type: uncomplicated Qualified Code(s): J45.20 - Mild intermittent asthma, uncomplicated (6) Obesity (BMI 35.0-39.9 without comorbidity) Status: Chronic (7) DM neuropathy, type II diabetes mellitus Status: Chronic (8) Venous stasis dermatitis of both lower extremities Status: Chronic (9) Diabetes type 2, uncontrolled Status: Chronic (10) Skin ulcer of third toe of left foot Status: Chronic (11) Pressure ulcer of toe of left foot, stage 3 Status: Chronic (12) H/O amputation of lesser toe Status: Chronic Qualifiers: Laterality: left Qualified Code(s): Z89.422 - Acquired absence of other left toe(s) Comment: 3rd toe, 04/26 (13) Morbid obesity with BMI of 40.0-44.9, adult Status: Chronic (14) Diabetes, polyneuropathy Status: Chronic Qualifiers: Diabetes mellitus type: type 2 Qualified Code(s): E11.42 - Type 2 diabetes mellitus with diabetic polyneuropathy (15) Hammertoe of left foot Status: Chronic (16) Other specified peripheral vascular diseases Status: Chronic (17) PAD (peripheral artery disease) Status: Chronic Reason for Consult Date of Consultation: 11/12/19 Reason for Consultation: Medical management History of Present Illness: The patient is a 54 year old F with a significant history of asthma; diabetes mellitus; fibromyalgia; restless leg syndrome; sleep apnea; hypertension; PAD; who had a left knee replacement on 11/12/2019 and internal medicine has been consulted for medical management. Pain in the left knee is controllable with pain medicine. Past Medical History Past Medical History (Chronic Problems): Chronic Problems (Last Reviewed 11/12/19 @ 22:[address] Clyde Ervin MD) Hypergammaglobulinemia (Chronic) Diabetes mellitus (Chronic) poorly controlled diabetic foot Charcot joints HTN (hypertension) (Chronic) Dyslipidemia (Chronic) Mild intermittent asthma (Chronic) Obesity (BMI 35.0-39.9 without comorbidity) (Chronic) DM neuropathy, type II diabetes mellitus (Chronic) Venous stasis dermatitis of both lower extremities (Chronic) Diabetes type 2, uncontrolled (Chronic) Skin ulcer of third toe of left foot (Chronic) Pressure ulcer of toe of left foot, stage 3 (Chronic) H/O amputation of lesser toe (Chronic) 3rd toe, 04/26 Morbid obesity with BMI of 40.0-44.9, adult (Chronic) Diabetes, polyneuropathy (Chronic) Hammertoe of left foot (Chronic) Other specified peripheral vascular diseases (Chronic) PAD (peripheral artery disease) (Chronic) Medical History: Medical History (Last Reviewed 11/12/19 @ 23:[address] Clyde Ervin MD) Depression F32.9 Dermatitis L30.9 Hyperlipemia E78.5 Allergies latex Allergy (Verified 11/12/19 05:49) Rash tetanus and diphtheria toxoids [Tetanus&Diphtheria Toxoid] Allergy (Verified 11/12/19 05:49) Anaphylaxis Home Medications: Ambulatory Orders Medication Instructions Recorded Albuterol Aerosols [Ventolin 2.5 mg INHALATION Q6H PRN 11/13/15 Aerosols] Aspirin [Aspirin, Baby] 81 mg PO DAILY@0800 11/13/15 Ferrous Sulfate [Iron Supplement] 325 mg PO DAILY 11/13/15 Atorvastatin Calcium [Lipitor] 80 mg PO QHS 04/28/16 Albuterol IH (ProAir) [Proair Hfa] 2 puff INHALATION 4X/DAY PRN PRN 10/07/16 #1 inhaler Acetaminophen [Tylenol Tablet] 650 mg PO Q6H PRN PRN tab 04/21/17 celecoxib 200 mg capsule 200 mg PO DAILY 10/18/18 cyclobenzaprine 10 mg tablet 10 mg PO QHS 10/18/18 levothyroxine 175 mcg tablet 150 mcg PO DAILY 10/18/18 lisinopril 5 mg tablet 5 mg PO DAILY 10/18/18 loratadine 10 mg capsule 10 mg PO DAILY 10/18/18 metformin 1,000 mg tablet 1,000 mg PO BID 10/18/18 metoprolol succinate 200 mg 200 mg PO DAILY 10/18/18 capsule sprinkle, ext. release 24 hr montelukast 10 mg tablet 10 mg PO QHS 10/18/18 omeprazole 40 mg capsule,delayed 40 mg PO DAILY 10/18/18 release hydrocodone 5 mg-acetaminophen 325 1 tab PO Q6H PRN tab 10/16/19 mg tablet Calcium Carbonate/Vitamin D3 1 ea PO DAILY 10/29/19 [Oyster Shell Calcium-Vit D Tab] Cilostazol [Pletal] 100 mg PO BIDAC 10/29/19 Doxepin HCl [Sinequan] 25 mg PO QHS 10/29/19 Dulaglutide [Trulicity] 1.5 mg SQ QWEEK 10/29/19 Empagliflozin [Jardiance] 25 mg PO DAILY 10/29/19 Ergocalciferol (Vitamin D2) 50,000 unit PO QWEEK 10/29/19 [Vitamin D2] Insulin Glargine,Hum.rec.anlog 75 unit SQ BID 10/29/19 [Basaglar Kwikpen U-100] Paroxetine HCl [Paxil] 40 mg PO DAILY 10/29/19 Potassium Chloride [K-Dur] 20 meq PO DAILY 10/29/19 Pregabalin [Lyrica] 150 mg PO BID 10/29/19 Surgical History: cholecystectomy, - - left partial 1st toe, 3rd toe amp. 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 Smoking Status: Former smoker Tobacco Use: Non-smoker - *Family History Paternal History Items: Diabetes, Heart Disease - Father had DE at age 47., Hypertension Maternal History Items: Diabetes, Hypertension Review of Systems Constitutional: Denies: Chills, Fever, Weight Change HEENT: Denies: Head Aches, Sinus Congestion, Sinus Drainage Cardiovascular: Denies: Chest Pain, Palpitations Respiratory: Denies: Cough, Shortness of breath at rest, Sputum production Gastrointestinal: Denies: Abdominal Pain, Nausea, Vomiting Genitourinary: Denies: Dysuria Musculoskeletal: Denies: Joint Pain, Joint Tenderness Skin: Denies: Rash, Wounds Neurological: Denies: Numbness, Tingling, Focal weakness Psychiatric: Denies: Anxiety, Depression, Homicidal Ideations, Suicidal Ideations Hematologic/ Lymphatic: Denies: Easy Bruising, Easy Bleeding - Physical Exam Vitals/I&O's: Vital Signs Temp Pulse Resp BP Pulse Ox 98.3 F 98 18 112/59 L 95 11/12/19 20:00 11/12/19 20:00 11/12/19 20:00 11/12/19 20:00 11/12/19 20:00 Oxygen Flow Rate (L/min) 2 Oxygen Delivery Method Room Air Weight: 117.8 kg Body Mass Index (BMI) 40.6 Finger Stick Blood Glucose 134 Intake and Output for Last 24 Hours 11/10/19 11/11/19 11/12/19 23:59 23:59 23:59 Intake Total 2538 / 2538 Balance 2538 / 2538 General: Alert, Oriented x3, Cooperative HEENT: Atraumatic, PERRLA, EOMI, Normocephalic Neck: Supple, No JVD, Negative Carotid Bruits Lungs: Clear to auscultation, Normal air movement Cardiovascular: Regular rate, No murmurs Abdomen: Bowel Sounds Present, Soft, Non Tender Extremities: No edema, Capillary Refill Less than 3 Seconds Skin: No rashes, No breakdown Musculoskeletal: - - Left knee with dressing and ice apparatus. Amputation of digits of second and third toe of left knee. Neurological: Cranial nerves II-XII grossly intact Psych/Mental Status: Normal Affect, Appropriate Laboratory Results 11/12/19 06:08: POC Glucose 161 H 11/12/19 06:10: Magnesium 1.4 L 11/12/19 11:45: POC Glucose 134 H Current Medications Acetaminophen (Tylenol) 1,000 mg PO Q8 [facility] Last Admin: 11/12/19 15:10 Dose: 1,000 mg Documented by: Albuterol Sulfate (Ventolin Aerosols) 2.5 mg INHALATION Q4H PRN PRN Apixaban (Eliquis) 2.5 mg PO BID [facility] Atorvastatin Calcium (Lipitor) 80 mg PO QHS [facility] Calcium/Vitamin D (Os-German 500mg + D) 1 tablet PO DAILY [facility] Celecoxib (Celebrex) 200 mg PO DAILY [facility] Cyclobenzaprine HCl (Flexeril) 10 mg PO QHS [facility] Doxepin HCl (Sinequan) 25 mg PO QHS [facility] Empagliflozin (Jardiance) 25 mg PO DAILY [facility] Ergocalciferol (Vitamin D) 50,000 unit PO QWEEK [facility] Ferrous Sulfate (Ferrous Sulfate) 325 mg PO DAILYCM [facility] Hydromorphone HCl (Dilaudid Inj) 0.5 mg IV Q2H PRN PRN PRN Reason: Pain Score 6-10/10 Lactated Ringer's () 1,000 mls @ 100 mls/hr IV .Q10H [facility] Last Admin: 11/12/19 18:57 Dose: Not Given Documented by: Lactated Ringer's () 1,000 mls @ 125 mls/hr IV .Q8H [facility] Last Infusion: 11/12/19 19:36 Dose: Infused Documented by: Lactated Ringer's () 1,000 mls @ 125 mls/hr IV .Q8H [facility] Last Admin: 11/12/19 15:10 Dose: Not Given Documented by: Cefazolin Sodium () 1 gm in 50 mls @ 100 mls/hr IV Q8H [facility] Stop: 11/13/19 03:59 Last Infusion: 11/12/19 19:30 Dose: Infused Documented by: Sodium Chloride () 250 mls @ 15 mls/hr IV .[id number] PRN PRN Reason: Saline Flush Sodium Chloride () 250 mls @ 15 mls/hr IV .[id number] PRN PRN Reason: Additional IVPB Infusion Insulin Glargine (Lantus (Bk)) 75 units SC BID [facility] Insulin Human Lispro (Humalog Kwikpen ([facility])) 1 - 6 unit SC Q4H PRN PRN; Protocol PRN Reason: BG>/= 180, SEE PROTOCOL Insulin Human Lispro (Humalog Kwikpen (Bk)) 0 unit SC ACHS [facility]; Protocol Ketorolac Tromethamine (Toradol ([facility])) 15 mg IV Q6H PRN PRN PRN Reason: Pain Score 1-5/10 Stop: 11/14/19 10:33 Levothyroxine Sodium (Synthroid) 150 mcg PO DAILY@0600 [facility] Lisinopril (Zestril) 5 mg PO DAILY [facility] Loratadine (Claritin) 10 mg PO DAILY [facility] Metoprolol Succinate (Toprol Xl (Beta Zak)) 200 mg PO DAILY [facility] Montelukast Sodium (Singulair) 10 mg PO QHS [facility] Ondansetron HCl (Zofran) 4 mg IV Q6H PRN PRN PRN Reason: NAUSEA Oxycodone HCl (Oxyir) 5 - 10 mg PO Q4H PRN PRN PRN Reason: Pain Score 4-10/10 Last Admin: 11/12/19 19:45 Dose: 10 mg Documented by: Pantoprazole Sodium (Protonix) 40 mg PO DAILY [facility] Paroxetine HCl (Paxil) 40 mg PO DAILY [facility] Potassium Chloride (K-Dur) 20 meq PO DAILY [facility] Pregabalin (Lyrica) 150 mg PO BID [facility] Senna/Docusate Sodium (Senokot-S, Yanely-Colace) 2 tablet PO BID [facility] Sodium Chloride () 10 - 40 ml IV UD PRN PRN Reason: SALINE FLUSH Assessment/Plan All Active Problems (Last Reviewed 11/12/19 @ 22:[address] Clyde Ervin MD) History of MRSA infection (Resolved) Anaphylaxis (Resolved) Cellulitis and abscess of leg, except foot (Resolved) Contusion, shoulder /upper arm (Resolved) Infection of toe (Resolved) Pressure ulcer of foot (Resolved) The patient is a 54 year old F with a significant history of asthma; diabetes mellitus; fibromyalgia; restless leg syndrome; sleep apnea; hypertension; PAD; who had a left knee replacement on 11/12/2019 and internal medicine has been consulted for medical management. Status post left knee replacement On Toradol as needed; Dilaudid as needed. Oxycodone as needed. Celebrex daily. Ice pack in place. Bowel protocol in place. Zofran for antiemetics. Management by orthopedic surgery. Apixaban for DVT prophylaxis. On cefazolin. Fibromyalgia On Lyrica On Flexeril. Diabetes mellitus Patient is noted to have hyperglycemia; mild. A1c is 6.7. Home basal insulin de-escalated. On Jardiance. Home Trulicity held. Accu-Chek QA CHS with correction scale insulin. Vitamin D deficiency On calcium and vitamin D. Asthma Stable PRN albuterol. Claritin continued. Singular continued. Iron deficiency On ferrous sulfate. Depression/anxiety On doxepin. On paroxetine. Hypothyroidism Synthroid continued Hypertension Blood pressure is low normal. Lisinopril and metoprolol continued with parameters placed. Trend blood pressures and adjust blood pressure medication as necessary. GERD On Protonix. PAD Cilostazol held in the setting of recent surgery. Morbid obesity: Complicates care. DVT prophylaxis: on Eliquis. Code Visit Office Visits / Consults: [id number] IP Consult L3
[2019-11-12] MEDS: Atorvastatin Calcium 80 MG Tablet PO (22:27)
[2019-11-12] MEDS: Montelukast 10 MG Tablet PO (22:27)
[2019-11-12] MEDS: Pregabalin 75 MG Capsule 150 MG PO (22:27)
[2019-11-12] MEDS: cycloBENZAPRine HCl 10 MG Tablet PO (22:27)
[2019-11-12] MEDS: Insulin Lispro 100 UNIT/ML INSULN.PEN SC (22:28)
[2019-11-12] MEDS: Senna/Docusate Sodium 1 Tablet 2 TABLET PO (22:30)
[2019-11-12] MEDS: Doxepin Hcl 25 MG Capsule PO (22:52)
[2019-11-13 01:06] LABS: Bedside Glucose 210 mg/dL (70-110)
[2019-11-13 02:00] VITALS: BP 102/63; PULSE 85; RESP 18; TEMP 36.9; O2SAT 97
[2019-11-13] MEDS: oxyCODONE 5 MG Tablet PO ×3 (03:22→15:13)
[2019-11-13] MEDS: Cefazolin 1 GM/50 ML BAG IV (03:22)
[2019-11-13 06:18] LABS: Hematocrit 31.3 % (37-47); Hemoglobin 10.2 g/dL (12.0-15.0); Mean Corp Hgb Conc 32.6 g/dL (32-36); Mean Corpuscular Hgb 30.3 pg (27.0-32.0); Mean Corpuscular Volume 92.9 fL (81-99); Mean Platelet Vol. 9.6 fl (6.2-12.0); Platelet Count 274 K/mm3 (150-450); RBC Distribution Width CV 13.6 % (11.6-14.6); RBC Distribution Width SD 46.1 fl (35.1-43.9); Red Blood Count 3.37 M/mm3 (4.2-5.4); White Blood Count 10.6 K/mm3 (4.4-11.0)
[2019-11-13] MEDS: Acetaminophen 500 MG Tablet 1000 MG PO ×2 (06:24→15:05)
[2019-11-13] MEDS: APIXABAN 2.5 MG TABLET PO (06:25)
[2019-11-13] MEDS: Levothyroxine 150 MCG Tablet PO (06:25)
[2019-11-13 06:44] LABS: Anion Gap 6 (5-15); BUN 17 mg/dL (7-18); BUN/Creat Ratio 23.6 RATIO (10-20); Calcium,Total 7.4 mg/dL (8.5-10.1); Chloride 103 mmol/L (98-107); Creatinine, Serum 0.72 mg/dL (0.55-1.02); EST Glomerular Filtration Rate 89 mL/min (>60); Est Glom Filt Rate - Afr Amer 108 mL/min (>60); Estimated Creatinine Clearance 85.85 ml/min; Glucose 156 mg/dL (74-106); Potassium 3.7 mmol/L (3.5-5.1); Sodium Level 138 mmol/L (136-145)
[2019-11-13 07:20] LABS: Bedside Glucose 141 mg/dL (70-110)
[2019-11-13 07:35] VITALS: BP 118/64; PULSE 88; RESP 16; TEMP 36.6; O2SAT 95
[2019-11-13] MEDS: Empagliflozin 25 MG Tablet PO (07:49)
[2019-11-13] MEDS: Loratadine 10 MG Tablet PO (07:49)
[2019-11-13] MEDS: Ferrous Sulfate 325 MG Tablet PO (07:49)
[2019-11-13] MEDS: Paroxetine 20 MG Tablet 40 MG PO (07:49)
[2019-11-13] MEDS: Senna/Docusate Sodium 1 Tablet 2 TABLET PO (07:49)
[2019-11-13] MEDS: Pantoprazole Sodium 40 MG Tablet PO (07:49)
[2019-11-13] MEDS: Calcium Carb/Vitamin D 1 TABLET Tablet PO (07:49)
[2019-11-13] MEDS: Celecoxib 200 MG Capsule PO (07:54)
[2019-11-13 08:40] LABS: AST(SGOT) 23 U/L (15-37); Alanine Aminotransfer ALT/SGPT 25 U/L (13-56); Albumin, Serum 2.9 g/dL (3.2-5.0); Alkaline Phosphatase 74 U/L (45-117); Bilirubin, Direct 0.07 mg/dL (0.00-0.30); Globulin 3.4 g/dL (2.2-4.2); Magnesium 1.8 mg/dL (1.6-2.6); Protein, Total 6.3 g/dL (6.4-8.2)
--- NOTE | 2019-11-13 11:00 | CASEMGMT ---
SID MENON Face to Face with patient for initial transition planning/care coordination assessment. RN SINAN introduced self and role at [facility]. Patient lying in bed, alert and oriented. Patient willing to participate in assessment and is able to answer all questions appropriately. Care providers, pharmacy, and demographics verified. Patient wishes to discharge home, and would like C at discharge. SID MENON provided list of [facility]gencies in-network with insurance to review. Patient states she has no further needs or concerns at this time. CM to follow for discharge planning needs that may arise. PCP: Sharath Specialists: Cami, ortho; Cheryl, vascular; Fascione, podiatry Preferred Pharmacy: [facility] Insurance: clipkit [facility] Prescription Benefit: yes Living Will/HPOA: yes, daughter Ariella Arriaza LNOK: daughter and mother Living Arrangements: Patient lives alone in 1st floor apartment, no steps to enter the home. Patient independent at home prior to surgery. Transportation: daughter DME/HHC: Patient has shower chair, raised toilet, cane, walker, cpap, and nebulizer at home. Disposition Plan: Patient to discharge home with HHC, family support, and follow-up plans in place. Krystyna REGALADO, RN, CM
[2019-11-13] MEDS: Pregabalin 75 MG Capsule 150 MG PO (11:21)
[2019-11-13] MEDS: Insulin Lispro 100 UNIT/ML INSULN.PEN SC ×2 (11:26→16:50)
[2019-11-13 11:30] VITALS: BP 127/73; PULSE 92
[2019-11-13] MEDS: Lisinopril 5 MG Tablet PO (11:31)
[2019-11-13 11:40] LABS: Bedside Glucose 202 mg/dL (70-110)
--- NOTE | 2019-11-13 12:22 | PCM.DC.SUM ---
Discharge Date and Diagnosis Date of Admission: 11/11/19 Date of Discharge: 11/13/19 - Secondary Discharge Diagnosis Chronic Problems (Last Reviewed 11/12/19 @ 23:[address] Clyde Ervin MD) Hypergammaglobulinemia (Chronic) Diabetes mellitus (Chronic) poorly controlled diabetic foot Charcot joints HTN (hypertension) (Chronic) Dyslipidemia (Chronic) Mild intermittent asthma (Chronic) Obesity (BMI 35.0-39.9 without comorbidity) (Chronic) DM neuropathy, type II diabetes mellitus (Chronic) Venous stasis dermatitis of both lower extremities (Chronic) Diabetes type 2, uncontrolled (Chronic) Skin ulcer of third toe of left foot (Chronic) Pressure ulcer of toe of left foot, stage 3 (Chronic) H/O amputation of lesser toe (Chronic) 3rd toe, 04/26 Morbid obesity with BMI of 40.0-44.9, adult (Chronic) Diabetes, polyneuropathy (Chronic) Hammertoe of left foot (Chronic) Other specified peripheral vascular diseases (Chronic) PAD (peripheral artery disease) (Chronic) Hospital Course and Treatment Operations: total knee replacement, - - Partial left second toe amputation Summary of Care Provided: The patient is a 54 year old F who has long history of degenerative joint disease to the knee who has failed conservative treatment and wished to undergo elective total knee arthroplasty. Patient underwent the aformentioned procedure on the admission date without any intraoperative complications. Patient did receive pre-and postoperative antibiotics which were discontinued within 23 hours postoperatively. Patient did receive spinal anesthesia as well as an adductor canal block postoperatively. pain was controlled with IV and transition to p.o. pain medication Patient will be discharged home with oxycodone and will continue Tylenol as well. Patient had minimal intraoperative blood loss and 2gm tranexamic acid was administered there was no need for postoperative blood transfusion Patients vital signs remained stable. Patient was started on both mechanical and chemical DVT per prophylaxis postoperatively in the form of SCDs BRIDGER hose and Eliquis 2.5 mg twice daily for which she will continue for 2 additional weeks post hospital discharge. Mustapha removed post op day number one and thigh high bridger hose placed over top of the meplix silver dressing. This should be removed 72 hrs post operatively and showering begun daily at that time with warm water and antibacterial soap. not to submerge for 3 weeks. To change dressing daily after first dressing change. Patient will follow-up in the office in 2 weeks. No intrahospital complications. Subjective: Complain of pain but controlled with medication denies nausea vomiting shortness of breath chest pain diarrhea constipation dizziness fever or chills - Physical Exam Vitals/I&O's: Vital Signs Temp Pulse Resp BP Pulse Ox 97.9 F 92 16 127/73 H 95 11/13/19 07:35 11/13/19 11:30 11/13/19 07:35 11/13/19 11:30 11/13/19 07:35 Oxygen Flow Rate (L/min) 2 Oxygen Delivery Method Room Air Weight: 259 lb 11.272 oz Body Mass Index (BMI) 40.6 Finger Stick Blood Glucose 134 Intake and Output for Last 24 Hours 11/11/19 11/12/19 11/13/19 23:59 23:59 23:59 Intake Total 2539 / 2539 1250 / 1250 Output Total 2750 / 2750 Balance 2539 / 1539 -1500 / -1500 General: Alert, Oriented x3, Cooperative, No apparent distress Extremities: - - Dressing clean dry and intact neurovascular intact EHL tibialis anterior gastrocsoleus compartment soft compressible Laboratory Results 11/12/19 22:14: POC Glucose 210 H 11/13/19 05:36: WBC 10.6, RBC 3.37 L, Hgb 10.2 L, Hct 31.3 L, MCV 92.9, MCH 30.3, MCHC 32.6, RDW Std Deviation 46.1 H, RDW Coeff of Kami 13.6, Plt Count 274, MPV 9.6 11/13/19 05:36: Sodium 138, Potassium 3.7, Chloride 103, Carbon Dioxide 29.0, Anion Gap 6, BUN 17, Creatinine 0.72, Estim Creat Clear Calc 85.85, Est GFR (MDRD) Af Amer 108, Est GFR (MDRD) Non-Af 89, BUN/Creatinine Ratio 23.6 H, Glucose 156 H, Calcium 7.4 L 11/13/19 05:36: Magnesium 1.8, Total Bilirubin 0.20, Direct Bilirubin 0.07, AST 23, ALT 25, Alkaline Phosphatase 74, Total Protein 6.3 L, Albumin 2.9 L, Globulin 3.4 11/13/19 06:23: POC Glucose 141 H 11/13/19 11:24: POC Glucose 202 H Current Medications Acetaminophen (Tylenol) 1,000 mg PO Q8 [facility] Last Admin: 11/13/19 06:24 Dose: 1,000 mg Documented by: Albuterol Sulfate (Ventolin Aerosols) 2.5 mg INHALATION Q4H PRN PRN Apixaban (Eliquis) 2.5 mg PO BID [facility] Last Admin: 11/13/19 06:25 Dose: 2.5 mg Documented by: Atorvastatin Calcium (Lipitor) 80 mg PO QHS [facility] Last Admin: 11/12/19 22:27 Dose: 80 mg Documented by: Calcium/Vitamin D (Os-German 500mg + D) 1 tablet PO DAILY [facility] Last Admin: 11/13/19 07:49 Dose: 1 tablet Documented by: Celecoxib (Celebrex) 200 mg PO DAILY [facility] Last Admin: 11/13/19 07:54 Dose: 200 mg Documented by: Cyclobenzaprine HCl (Flexeril) 10 mg PO QHS [facility] Last Admin: 11/12/19 22:27 Dose: 10 mg Documented by: Doxepin HCl (Sinequan) 25 mg PO QHS [facility] Last Admin: 11/12/19 22:52 Dose: 25 mg Documented by: Empagliflozin (Jardiance) 25 mg PO DAILY [facility] Last Admin: 11/13/19 07:49 Dose: 25 mg Documented by: Ergocalciferol (Vitamin D) 50,000 unit PO QWEEK [facility]ous S[facility]) [facility] Last Admin: 11/13/19 07:49 Dose: 325 mg Documented by: Hydromorphone HCl (Dilaudid Inj) 0.5 mg IV Q2H PRN PRN PRN Reason: Pain Score 6-10/10 Sodium Chloride () 250 mls @ 15 mls/hr IV .[id number] PRN PRN Reason: Saline Flush Sodium Chloride () 250 mls @ 15 mls/hr IV .[id number] PRN PRN Reason: Additional IVPB Infusion Insulin Glargine (Lantus ([facility])) 40 units SC BID [facility] Last Admin: 11/13/19 11:22 Dose: 40 units Documented by: Insulin Human Lispro (Humalog Kwikpen ([facility])) 1 - 6 unit SC Q4H PRN PRN; Protocol PRN Reason: BG>/= 180, SEE PROTOCOL Insulin Human Lispro (Humalog Kwikpen (Bk)) 0 unit SC ACHS [facility]; Protocol Last Admin: 11/13/19 11:26 Dose: 4 u Documented by: Ketorolac Tromethamine (Toradol (Bk)) 15 mg IV Q6H PRN PRN PRN Reason: Pain Score 1-5/10 Stop: 11/14/19 10:33 Levothyroxine Sodium (Synthroid) 150 mcg PO DAILY@0600 [facility] Last Admin: 11/13/19 06:25 Dose: 150 mcg Documented by: Lisinopril (Zestril) 5 mg PO DAILY [facility] Last Admin: 11/13/19 11:31 Dose: 5 mg Documented by: Loratadine (Claritin) 10 mg PO DAILY [facility] Last Admin: 11/13/19 07:49 Dose: 10 mg Documented by: Metoprolol Succinate (Toprol Xl (Beta Zak)) 200 mg PO DAILY [facility] Last Admin: 11/13/19 11:30 Dose: Not Given Documented by: Montelukast Sodium (Singulair) 10 mg PO QHS [facility] Last Admin: 11/12/19 22:27 Dose: 10 mg Documented by: Ondansetron HCl (Zofran) 4 mg IV Q6H PRN PRN PRN Reason: NAUSEA Oxycodone HCl (Oxyir) 5 - 10 mg PO Q4H PRN PRN PRN Reason: Pain Score 4-10/10 Last Admin: 11/13/19 07:54 Dose: 10 mg Documented by: Pantoprazole Sodium (Protonix) 40 mg PO DAILY [facility] Last Admin: 11/13/19 07:49 Dose: 40 mg Documented by: Paroxetine HCl (Paxil) 40 mg PO DAILY [facility] Last Admin: 11/13/19 07:49 Dose: 40 mg Documented by: Potassium Chloride (K-Dur) 20 meq PO DAILY [facility] Last Admin: 11/13/19 07:49 Dose: 20 meq Documented by: Pregabalin (Lyrica) 150 mg PO BID [facility] Last Admin: 11/13/19 11:21 Dose: 150 mg Documented by: Senna/Docusate Sodium (Senokot-S, Yanely-Colace) 2 tablet PO BID [facility] Last Admin: 11/13/19 07:49 Dose: 2 tablet Documented by: Sodium Chloride () 10 - 40 ml IV UD PRN PRN Reason: SALINE FLUSH Discharge Diet: No Restrictions Weight Bearing Status: Weight bearing as tolerated Call your doctor if you observe: Fever of 101 or Higher, Shortness of breath, Chest pain Home Medications: Medications to take at Discharge Albuterol Aerosols [Ventolin Aerosols] 2.5 mg INHALATION Q6H PRN 11/13/15 Ferrous Sulfate [Iron Supplement] 325 mg PO DAILY 11/13/15 Atorvastatin Calcium [Lipitor] 80 mg PO QHS 04/28/16 Albuterol IH (ProAir) [Proair Hfa] 2 puff INHALATION 4X/DAY PRN PRN #1 inhaler 10/07/16 celecoxib 200 mg capsule 200 mg PO DAILY 10/18/18 cyclobenzaprine 10 mg tablet 10 mg PO QHS 10/18/18 levothyroxine 175 mcg tablet 150 mcg PO DAILY 10/18/18 lisinopril 5 mg tablet 5 mg PO DAILY 10/18/18 loratadine 10 mg capsule 10 mg PO DAILY 10/18/18 metformin 1,000 mg tablet 1,000 mg PO BID 10/18/18 metoprolol succinate 200 mg capsule sprinkle, ext. release 24 hr 200 mg PO DAILY 10/18/18 montelukast 10 mg tablet 10 mg PO QHS 10/18/18 omeprazole 40 mg capsule,delayed release 40 mg PO DAILY 10/18/18 Calcium Carbonate/Vitamin D3 [Oyster Shell Calcium-Vit D Tab] 1 ea PO DAILY 10/29/19 Cilostazol [Pletal] 100 mg PO BIDAC 10/29/19 Doxepin HCl [Sinequan] 25 mg PO QHS 10/29/19 Dulaglutide [Trulicity] 1.5 mg SQ QWEEK 10/29/19 Empagliflozin [Jardiance] 25 mg PO DAILY 10/29/19 Ergocalciferol (Vitamin D2) [Vitamin D2] 50,000 unit PO QWEEK 10/29/19 Insulin Glargine,Hum.rec.anlog [Basaglar Kwikpen U-100] 75 unit SQ BID 10/29/19 Paroxetine HCl [Paxil] 40 mg PO DAILY 10/29/19 Potassium Chloride [K-Dur] 20 meq PO DAILY 10/29/19 Pregabalin [Lyrica] 150 mg PO BID 10/29/19 Acetaminophen [Tylenol] 1,000 mg PO Q6H PRN #100 tab 11/13/19 Apixaban [Eliquis] 2.5 mg PO BID #28 tab 11/13/19 Oxycodone [Oxyir] 5 - 10 mg PO Q4H PRN PRN #60 tablet 11/13/19 Following Prescrptions Were Given to Patient: Apixaban [Eliquis] 2.5 mg PO BID #28 tab Transmission Status: Pending to [facility] Oxycodone [Oxyir] 5 - 10 mg PO Q4H PRN PRN #60 tablet PRN Reason: Pain Score 4-1010 Transmission Status: Sent to [facility] Acetaminophen [Tylenol] 1,000 mg PO Q6H PRN #100 tab Transmission Status: Pending to [facility] Primary Care Physician: Gulshan Early Chi, MD [Primary Care Provider] - Additional Instructions: Ice and elevate next week while not ambulating. Encourage ambulation weightbearing as tolerated. Encourage FULL knee extension and flexion 1 time EVERY time you get up and down and MULTIPLE times per day. Begin showering postop day #3. Remove the dressing prior to shower gently wash with warm water and antibacterial soap then pat dry place ABD pad and BRIDGER hose over top. This is to be done daily. do not submerge for 3 weeks. If not showering daily must clean incision and change dressing daily. Do not allow animals near incision keep clean. Follow anticoagulation recommendations. Start physical therapy as directed in the hospital. call Dr. Almanza with any concerns. Medical Necessity - Tobacco Use Smoking Status: Former smoker Tobacco Use: Non-smoker Meaningful Use Info Meaningful Use Diagnoses (Choose all that apply): None applicable
[2019-11-13 13:39] VITALS: BP 119/70; PULSE 89; RESP 16; TEMP 36.6; O2SAT 97
--- NOTE | 2019-11-13 14:00 | CASEMGMT ---
SID CM in to review patient's choices for [facility]. Patient would like [facility]. RN CM sent referral and they are able to accept the patient. RN CM updated the patient regarding acceptance.
--- NOTE | 2019-11-13 14:07 | CASEMGMT ---
Intro role of CM to patient and [facility] form explained re: Observation status for treatment of TKR. Explained hospitalization will be paid per? insurance policy for Outpatient billing?and condition will continue to be evaluated for Inpt necessity. Also let pt know that [facility] sends paper in the billing packet with their phone number if questions arise. Discussed Pharmacy section of [facility] form and self administered medication guideline.? Pt verbalizes understanding and does not have further questions. Form signed and placed in chart, copy to pt. EULA LAU BSN CM
--- NOTE | 2019-11-13 15:19 | PN_ITS ---
Reason for Visit: Follow-up on left knee robotic replacement Subjective: Patient was seen and examined. Denied any new complaint. Denied any fever or chills. Been working with therapy. Objective: Physical exam: General: Alert, Oriented x3, Cooperative HEENT: Atraumatic, PERRLA, EOMI, Normocephalic Neck: Supple, No JVD, Negative Carotid Bruits Lungs: Clear to auscultation, Normal air movement Cardiovascular: Regular rate, No murmurs Abdomen: Bowel Sounds Present, Soft, Non Tender Extremities: No edema, Capillary Refill Less than 3 Seconds Skin: No rashes, No breakdown Musculoskeletal: - - Left knee with dressing and ice apparatus. BRIDGER hoses on lower legs. Neurological: Cranial nerves II-XII grossly intact Psych/Mental Status: Normal Affect, Appropriate Vitals/I&O's: Vital Signs Temp Pulse Resp BP Pulse Ox 97.9 F 89 16 119/70 97 11/13/19 13:39 11/13/19 13:39 11/13/19 13:39 11/13/19 13:39 11/13/19 13:39 Oxygen Flow Rate (L/min) 2 Oxygen Delivery Method Room Air Weight: 117.8 kg Body Mass Index (BMI) 40.6 Finger Stick Blood Glucose 134 Intake and Output for Last 24 Hours 11/11/19 11/12/19 11/13/19 23:59 23:59 23:59 Intake Total 2539 / 2539 1250 / 1250 Output Total 2750 / 2750 Balance 2539 / 1539 -1500 / -1500 Laboratory Results 11/12/19 22:14: POC Glucose 210 H 11/13/19 05:36: WBC 10.6, RBC 3.37 L, Hgb 10.2 L, Hct 31.3 L, MCV 92.9, MCH 30.3, MCHC 32.6, RDW Std Deviation 46.1 H, RDW Coeff of Kami 13.6, Plt Count 274, MPV 9.6 11/13/19 05:36: Sodium 138, Potassium 3.7, Chloride 103, Carbon Dioxide 29.0, Anion Gap 6, BUN 17, Creatinine 0.72, Estim Creat Clear Calc 85.85, Est GFR (MDRD) Af Amer 108, Est GFR (MDRD) Non-Af 89, BUN/Creatinine Ratio 23.6 H, Glucose 156 H, Calcium 7.4 L 11/13/19 05:36: Magnesium 1.8, Total Bilirubin 0.20, Direct Bilirubin 0.07, AST 23, ALT 25, Alkaline Phosphatase 74, Total Protein 6.3 L, Albumin 2.9 L, Globulin 3.4 11/13/19 06:23: POC Glucose 141 H 11/13/19 11:24: POC Glucose 202 H Current Medications Acetaminophen (Tylenol) 1,000 mg PO Q8 [facility] Last Admin: 11/13/19 15:05 Dose: 1,000 mg Documented by: Albuterol Sulfate (Ventolin Aerosols) 2.5 mg INHALATION Q4H PRN PRN Apixaban (Eliquis) 2.5 mg PO BID [facility] Last Admin: 11/13/19 06:25 Dose: 2.5 mg Documented by: Atorvastatin Calcium (Lipitor) 80 mg PO QHS [facility] Last Admin: 11/12/19 22:27 Dose: 80 mg Documented by: Calcium/Vitamin D (Os-German 500mg + D) 1 tablet PO DAILY [facility] Last Admin: 11/13/19 07:49 Dose: 1 tablet Documented by: Celecoxib (Celebrex) 200 mg PO DAILY [facility] Last Admin: 11/13/19 07:54 Dose: 200 mg Documented by: Cyclobenzaprine HCl (Flexeril) 10 mg PO QHS [facility] Last Admin: 11/12/19 22:27 Dose: 10 mg Documented by: Doxepin HCl (Sinequan) 25 mg PO QHS [facility] Last Admin: 11/12/19 22:52 Dose: 25 mg Documented by: Empagliflozin (Jardiance) 25 mg PO DAILY [facility] Last Admin: 11/13/19 07:49 Dose: 25 mg Documented by: Ergocalciferol (Vitamin D) 50,000 unit PO QWEEK [facility] Ferrous Sulfate (F[facility]ous Sulfate) [facility] Last Admin: 11/13/19 07:49 Dose: 325 mg Documented by: Hydromorphone HCl (Dilaudid Inj) 0.5 mg IV Q2H PRN PRN PRN Reason: Pain Score 6-10/10 Sodium Chloride () 250 mls @ 15 mls/hr IV .[id number] PRN PRN Reason: Saline Flush Sodium Chloride () 250 mls @ 15 mls/hr IV .[id number] PRN PRN Reason: Additional IVPB Infusion Insulin Glargine (Lantus ([facility])) 40 units SC BID [facility] Last Admin: 11/13/19 11:22 Dose: 40 units Documented by: Insulin Human Lispro (Humalog Kwikpen ([facility])) 1 - 6 unit SC Q4H PRN PRN; Protocol PRN Reason: BG>/= 180, SEE PROTOCOL Insulin Human Lispro (Humalog Kwikpen ([facility])) 0 unit SC ACHS [facility]; Protocol Last Admin: 11/13/19 11:26 Dose: 4 u Documented by: Ketorolac Tromethamine (Toradol ([facility])) 15 mg IV Q6H PRN PRN PRN Reason: Pain Score 1-5/10 Stop: 11/14/19 10:33 Levothyroxine Sodium (Synthroid) 150 mcg PO DAILY@0600 [facility] Last Admin: 11/13/19 06:25 Dose: 150 mcg Documented by: Lisinopril (Zestril) 5 mg PO DAILY [facility] Last Admin: 11/13/19 11:31 Dose: 5 mg Documented by: Loratadine (Claritin) 10 mg PO DAILY [facility] Last Admin: 11/13/19 07:49 Dose: 10 mg Documented by: Metoprolol Succinate (Toprol Xl (Beta Zak)) 200 mg PO DAILY [facility] Last Admin: 11/13/19 11:30 Dose: Not Given Documented by: Montelukast Sodium (Singulair) 10 mg PO QHS [facility] Last Admin: 11/12/19 22:27 Dose: 10 mg Documented by: Ondansetron HCl (Zofran) 4 mg IV Q6H PRN PRN PRN Reason: NAUSEA Oxycodone HCl (Oxyir) 5 - 10 mg PO Q4H PRN PRN PRN Reason: Pain Score 4-10/10 Last Admin: 11/13/19 15:13 Dose: 10 mg Documented by: Pantoprazole Sodium (Protonix) 40 mg PO DAILY [facility] Last Admin: 11/13/19 07:49 Dose: 40 mg Documented by: Paroxetine HCl (Paxil) 40 mg PO DAILY [facility] Last Admin: 11/13/19 07:49 Dose: 40 mg Documented by: Potassium Chloride (K-Dur) 20 meq PO DAILY [facility] Last Admin: 11/13/19 07:49 Dose: 20 meq Documented by: Pregabalin (Lyrica) 150 mg PO BID [facility] Last Admin: 11/13/19 11:21 Dose: 150 mg Documented by: Senna/Docusate Sodium (Senokot-S, Yanely-Colace) 2 tablet PO BID [facility] Last Admin: 11/13/19 07:49 Dose: 2 tablet Documented by: Sodium Chloride () 10 - 40 ml IV UD PRN PRN Reason: SALINE FLUSH STROKE Vital Signs/Narrative: Vital Signs Temp Pulse Resp BP Pulse Ox 11/13/19 13:39 97.9 F 89 16 119/70 97 11/13/19 11:30 92 127/73 H Medical Necessity - Tobacco Use Smoking Status: Former smoker Tobacco Use: Non-smoker Assessment/Plan All Active Problems (Last Reviewed 11/12/19 @ 23:[address] Clyde Ervin MD) History of MRSA infection (Resolved) Anaphylaxis (Resolved) Cellulitis and abscess of leg, except foot (Resolved) Contusion, shoulder /upper arm (Resolved) Infection of toe (Resolved) Pressure ulcer of foot (Resolved) 1. Postop day #1 status post left knee replacement, pain is controlled, continue to orthopedic recommendation 2. Hypomagnesemia, Mg 1.8, replaced 3. Hypertension, controlled, continue current regimen, insulin sliding scale with glucose checks 4. Hypertension, controlled, continue lisinopril and metoprolol 5. Hypothyroidism, continue Synthroid 6. Anxiety/depression, iron deficiency anemia, asthma, vitamin D, fibromyalgia, GERD, all remain stable 7. DVT PPx- on apixaban Code Visit Inpatient E&M: 23834 Subs Hosp L2
[2019-11-13 17:00] LABS: Bedside Glucose 150 mg/dL (70-110)
--- NOTE | 2019-11-13 19:48 | NURSING ---
magnesium oxide had been ordered by dr. maria to be filled at [facility] pharmacy= this rn called pharmacy and pt notified it is over the counter or they can fill and bring up. Pt requested to chart picker at her own pharmacy- and was then d/c'ed home. Notified of low mg level and pt was to take 1 tab qday. understanding verbalized.
== END 2019-11-13 18:10 | disposition home health service (06) ==
LOC: SDC 10:59 → MS3 11:00
PROVIDERS: Anesthesiology; Admitting Provider Orthopaedic Surgery; PCP Family Medicine Geriatric Medicine; Referring Provider Orthopaedic Surgery; Visit Provider Internal Medicine
PROC: 0SRD0JZ Replacement of Left Knee Joint with Synthetic Substitute, Open Approach (ICD-10-PCS; CPT 27447; principal; 2019-11-12 07:15)
DX: M17.12 Unilateral primary osteoarthritis, left knee (principal); K21.9 Gastro-esophageal reflux disease without esophagitis; I10 Essential (primary) hypertension; L30.9 Dermatitis, unspecified; G89.29 Other chronic pain; D89.2 Hypergammaglobulinemia, unspecified; E78.5 Hyperlipidemia, unspecified; J45.20 Mild intermittent asthma, uncomplicated; E66.01 Morbid (severe) obesity due to excess calories; E11.42 Type 2 diabetes mellitus with diabetic polyneuropathy; E11.51 Type 2 diabetes mellitus with diabetic peripheral angiopathy without gangrene; E55.9 Vitamin D deficiency, unspecified; E11.65 Type 2 diabetes mellitus with hyperglycemia; E03.9 Hypothyroidism, unspecified; F41.9 Anxiety disorder, unspecified; F32.9 Major depressive disorder, single episode, unspecified; M79.7 Fibromyalgia; G25.81 Restless legs syndrome; G47.30 Sleep apnea, unspecified; Z79.899 Other long term (current) drug therapy; Z79.82 Long term (current) use of aspirin; Z87.891 Personal history of nicotine dependence; Z68.41 Body mass index [BMI] 40.0-44.9, adult; Z71.3 Dietary counseling and surveillance; Z79.4 Long term (current) use of insulin
CPT/HCPCS: 01400; 27447; 64447; S2900; 36415; 73560; 80048; 80076; 82962; 83036; 83735; 84443; 85027; 85610; 85730; 87077; 87081; 93005; 94762; 96361; 96365; 96366; 97116; 97162; 97166; 97530; 97535; 99218; 99251; C1776; J7120; G0378; G0379; G0463; J0702; J3490

== ENCOUNTER → 2019-12-16 11:01 | Outpatient (CLI) | payer MEDICARE, MEDICAID, SELFPAY ==
[2019-11-25 07:52] VITALS: BMI 40.6
[2019-12-16 12:30] LABS: Erythrocyte Sedimentation Rate 14 mm/hr (0-30)
[2019-12-16 12:31] LABS: Absolute Lymphocyte Count 1.94 X10^3/uL (0.83-4.51); Absolute Neutrophil Count 3.4 X10^3/uL (2.0-7.7); Basophil# 0.03 X10^3/uL; Basophil% 0.5 % (0-1); Eosinophil# 0.24 X10^3/uL; Eosinophils% 3.9 % (0-5); Hematocrit 39.1 % (37-47); Lymphocyte # 1.94 X10^3/ul (4.0); Lymphocyte % 31.1 % (19-41); Mean Corp Hgb Conc 30.7 g/dL (32-36); Mean Corpuscular Hgb 28.4 pg (27.0-32.0); Mean Corpuscular Volume 92.4 fL (81-99); Mean Platelet Vol. 9.1 fl (6.2-12.0); Monocyte# 0.59 X10^3/uL; Monocyte% 9.5 % (0-10); NRBC Flagged by Analyzer 0 % (0-5); Neutrophil % 54.5 % (47-70); Platelet Count 334 K/mm3 (150-450); RBC Distribution Width CV 14.5 % (11.6-14.6); RBC Distribution Width SD 48.8 fl (35.1-43.9); Red Blood Count 4.23 M/mm3 (4.2-5.4); White Blood Count 6.2 K/mm3 (4.4-11.0)
[2019-12-16 12:41] LABS: Anion Gap 7 (5-15); BUN 15 mg/dL (7-18); BUN/Creat Ratio 22.2 RATIO (10-20); Calcium,Total 8.9 mg/dL (8.5-10.1); Chloride 103 mmol/L (98-107); Creatinine, Serum 0.68 mg/dL (0.55-1.02); EST Glomerular Filtration Rate 96 mL/min (>60); Est Glom Filt Rate - Afr Amer 116 mL/min (>60); Glucose 140 mg/dL (74-106); Potassium 4.1 mmol/L (3.5-5.1); Sodium Level 141 mmol/L (136-145)
[2019-12-16 13:37] LABS: M R Staph aureus DNA By PCR Negative (Negative); Probe Check PASS; Specimen Processing Control PASS; Staph aureus DNA By PCR POSITIVE (Negative)
== END ==
PROVIDERS: PCP Family Medicine Geriatric Medicine; Visit Provider Family Medicine Geriatric Medicine
DX: Z22.322 Carrier or suspected carrier of Methicillin resistant Staphylococcus aureus (principal); L03.90 Cellulitis, unspecified
CPT/HCPCS: 80048; 85025; 85652; 86140; 87070; 87186; 87205; 87640

== ENCOUNTER → 2020-03-03 13:48 | Outpatient (CLI) | payer MEDICARE, MEDICAID, SELFPAY ==
[2018-11-08 10:05] VITALS: BMI 41.0
[2020-01-31 11:01] VITALS: BMI 40.6
[2020-03-03 17:41] LABS: Absolute Lymphocyte Count 2.19 X10^3/uL (0.83-4.51); Absolute Neutrophil Count 4.1 X10^3/uL (2.0-7.7); Basophil# 0.03 X10^3/uL; Basophil% 0.4 % (0-1); Eosinophil# 0.12 X10^3/uL; Eosinophils% 1.7 % (0-5); Hematocrit 42.7 % (37-47); Hemoglobin 12.6 g/dL (12.0-15.0); Lymphocyte # 2.19 X10^3/ul (4.0); Lymphocyte % 31.1 % (19-41); Mean Corp Hgb Conc 29.5 g/dL (32-36); Mean Corpuscular Hgb 27.1 pg (27.0-32.0); Mean Corpuscular Volume 91.8 fL (81-99); Mean Platelet Vol. 9.1 fl (6.2-12.0); Monocyte# 0.57 X10^3/uL; Monocyte% 8.1 % (0-10); NRBC Flagged by Analyzer 0 % (0-5); Neutrophil # 4.08 X10^3/uL (2.7-7.7); Neutrophil % 57.8 % (47-70); Platelet Count 408 K/mm3 (150-450); RBC Distribution Width CV 15.9 % (11.6-14.6); RBC Distribution Width SD 53.2 fl (35.1-43.9); Red Blood Count 4.65 M/mm3 (4.2-5.4); White Blood Count 7.1 K/mm3 (4.4-11.0)
[2020-03-03 18:05] LABS: Vitamin D,25 Hydroxy 84.2 ng/mL
[2020-03-03 18:25] LABS: ALB/GLOB Ratio 0.8 RATIO (0.9-2.4); AST(SGOT) 22 U/L (15-37); Alanine Aminotransfer ALT/SGPT 42 U/L (13-56); Albumin, Serum 3.6 g/dL (3.2-5.0); Alkaline Phosphatase 124 U/L (45-117); Anion Gap 7 (5-15); BUN 23 mg/dL (7-18); BUN/Creat Ratio 32.1 RATIO (10-20); Calcium,Total 8.5 mg/dL (8.5-10.1); Chloride 101 mmol/L (98-107); Creatinine, Serum 0.72 mg/dL (0.55-1.02); EST Glomerular Filtration Rate 90 mL/min (>60); Est Glom Filt Rate - Afr Amer 108 mL/min (>60); Globulin 4.7 g/dL (2.2-4.2); Glucose 119 mg/dL (74-106); Potassium 4.4 mmol/L (3.5-5.1); Protein, Total 8.3 g/dL (6.4-8.2); Sodium Level 137 mmol/L (136-145); Thyroid Stim Hormone (TSH) 2.74 uIU/mL (0.358-3.74); Uric Acid 4.4 mg/dL (2.6-6.0)
== END ==
PROVIDERS: Family Provider Family Medicine Geriatric Medicine; PCP Family Medicine Geriatric Medicine; Visit Provider Family Medicine Geriatric Medicine
DX: E11.9 Type 2 diabetes mellitus without complications (principal); E55.9 Vitamin D deficiency, unspecified; M10.9 Gout, unspecified; I10 Essential (primary) hypertension; E03.9 Hypothyroidism, unspecified
CPT/HCPCS: 36415; 80053; 82306; 84443; 84550; 85025

== ENCOUNTER → 2020-06-01 16:10 | Outpatient (CLI) | payer MEDICARE, MEDICAID, SELFPAY ==
[2020-01-31 11:01] VITALS: BMI 40.6
[2020-06-01 17:28] LABS: Absolute Lymphocyte Count 1.38 X10^3/uL (0.83-4.51); Absolute Neutrophil Count 3.2 X10^3/uL (2.0-7.7); Basophil# 0.02 X10^3/uL; Basophil% 0.4 % (0-1); Eosinophil# 0.11 X10^3/uL; Eosinophils% 2.1 % (0-5); Hematocrit 41.5 % (37-47); Hemoglobin 12.9 g/dL (12.0-15.0); Lymphocyte # 1.38 X10^3/ul (4.0); Lymphocyte % 26.5 % (19-41); Mean Corp Hgb Conc 31.1 g/dL (32-36); Mean Corpuscular Hgb 27.9 pg (27.0-32.0); Mean Corpuscular Volume 89.6 fL (81-99); Mean Platelet Vol. 9.8 fl (6.2-12.0); Monocyte# 0.49 X10^3/uL; Monocyte% 9.4 % (0-10); NRBC Flagged by Analyzer 0 % (0-5); Neutrophil # 3.18 X10^3/uL (2.7-7.7); Neutrophil % 61.2 % (47-70); Platelet Count 375 K/mm3 (150-450); RBC Distribution Width CV 15.7 % (11.6-14.6); RBC Distribution Width SD 50.8 fl (35.1-43.9); Red Blood Count 4.63 M/mm3 (4.2-5.4); White Blood Count 5.2 K/mm3 (4.4-11.0)
[2020-06-01 17:44] LABS: Vitamin D,25 Hydroxy 83.3 ng/mL
[2020-06-01 17:54] LABS: ALB/GLOB Ratio 0.8 RATIO (0.9-2.4); AST(SGOT) 48 U/L (15-37); Alanine Aminotransfer ALT/SGPT 48 U/L (13-56); Albumin, Serum 3.6 g/dL (3.2-5.0); Alkaline Phosphatase 107 U/L (45-117); Anion Gap 8 (5-15); BUN 14 mg/dL (7-18); BUN/Creat Ratio 20.5 RATIO (10-20); Calcium,Total 8.8 mg/dL (8.5-10.1); Chloride 104 mmol/L (98-107); Creatinine, Serum 0.68 mg/dL (0.55-1.02); EST Glomerular Filtration Rate 95 mL/min (>60); Est Glom Filt Rate - Afr Amer 114 mL/min (>60); Globulin 4.4 g/dL (2.2-4.2); Glucose 171 mg/dL (74-106); Potassium 4.1 mmol/L (3.5-5.1); Sodium Level 138 mmol/L (136-145); Thyroid Stim Hormone (TSH) 0.13 uIU/mL (0.358-3.74); Uric Acid 4.8 mg/dL (2.6-6.0)
== END ==
PROVIDERS: PCP Family Medicine Geriatric Medicine; Visit Provider Family Medicine Geriatric Medicine
DX: E11.9 Type 2 diabetes mellitus without complications (principal); E55.9 Vitamin D deficiency, unspecified; I10 Essential (primary) hypertension; M10.9 Gout, unspecified
CPT/HCPCS: 36415; 80053; 82306; 84443; 84550; 85025

== ENCOUNTER → 2020-06-22 17:26 | Outpatient (CLI) | payer MEDICARE, MEDICAID, SELFPAY ==
[2020-01-31 11:01] VITALS: BMI 40.6
[2020-06-22 17:52] LABS: Absolute Lymphocyte Count 1.69 X10^3/uL (0.83-4.51); Absolute Neutrophil Count 4.2 X10^3/uL (2.0-7.7); Basophil# 0.02 X10^3/uL; Basophil% 0.3 % (0-1); Eosinophil# 0.13 X10^3/uL; Eosinophils% 1.9 % (0-5); Hematocrit 41.9 % (37-47); Hemoglobin 13.1 g/dL (12.0-15.0); Lymphocyte # 1.69 X10^3/ul (4.0); Lymphocyte % 25.3 % (19-41); Mean Corp Hgb Conc 31.3 g/dL (32-36); Mean Corpuscular Hgb 27.9 pg (27.0-32.0); Mean Corpuscular Volume 89.1 fL (81-99); Mean Platelet Vol. 8.8 fl (6.2-12.0); Monocyte# 0.61 X10^3/uL; Monocyte% 9.1 % (0-10); NRBC Flagged by Analyzer 0 % (0-5); Neutrophil # 4.22 X10^3/uL (2.7-7.7); Neutrophil % 63.1 % (47-70); Platelet Count 356 K/mm3 (150-450); RBC Distribution Width CV 15.5 % (11.6-14.6); RBC Distribution Width SD 50.4 fl (35.1-43.9); White Blood Count 6.7 K/mm3 (4.4-11.0)
[2020-06-22 18:49] LABS: ALB/GLOB Ratio 0.7 RATIO (0.9-2.4); AST(SGOT) 37 U/L (15-37); Alanine Aminotransfer ALT/SGPT 41 U/L (13-56); Albumin, Serum 3.6 g/dL (3.2-5.0); Alkaline Phosphatase 108 U/L (45-117); Anion Gap 8 (5-15); BUN 10 mg/dL (7-18); BUN/Creat Ratio 12.2 RATIO (10-20); Chloride 105 mmol/L (98-107); Creatinine, Serum 0.82 mg/dL (0.55-1.02); EST Glomerular Filtration Rate 76 mL/min (>60); Est Glom Filt Rate - Afr Amer 92 mL/min (>60); Globulin 4.9 g/dL (2.2-4.2); Glucose 171 mg/dL (74-106); Magnesium 1.6 mg/dL (1.6-2.6); Potassium 3.6 mmol/L (3.5-5.1); Protein, Total 8.5 g/dL (6.4-8.2); Sodium Level 140 mmol/L (136-145)
== END ==
PROVIDERS: PCP Family Medicine Geriatric Medicine; Referring Provider Family Medicine Geriatric Medicine; Visit Provider Family Medicine Geriatric Medicine
DX: E86.0 Dehydration (principal); E83.49 Other disorders of magnesium metabolism
CPT/HCPCS: 36415; 80053; 83735; 85025

== ENCOUNTER → 2020-07-17 11:47 | Outpatient (CLI) | payer MEDICARE, MEDICAID, SELFPAY ==
[2020-01-31 11:01] VITALS: BMI 40.6
== END ==
PROVIDERS: PCP Family Medicine Geriatric Medicine; Referring Provider Family Medicine Geriatric Medicine; Visit Provider Family Medicine Geriatric Medicine
DX: R68.89 Other general symptoms and signs (principal)
CPT/HCPCS: 87633

== ENCOUNTER → 2020-08-19 06:19 | Outpatient (CLI) | payer MEDICARE, MEDICAID, SELFPAY ==
[2020-07-22 10:41] VITALS: BMI 38.9
--- NOTE | 2020-08-19 18:11 | STRESSREP_ITS ---
Stress Test Report Pharmacologic myocardial perfusion stress test. 55-year-old lady with a history of hypertension hyperlipidemia. Stress protocol: Resting EKG demonstrates normal sinus rhythm with a rate of 78 bpm normal intervals are noted resting blood pressure is 130/68 mmHg. 0.4 mg of regadenoson was infused per usual protocol followed by rapid venous saline flush injection continuous EKG monitoring is performed. The maximum heart rate attained was 101 bpm which was 61% of max impacted heart rate the maximum workload was 1 metabolic equivalent. At rest there were no ST or T wave changes noted suggest abnormal flow reserve at peak infusion nonspecific ST-T wave changes were noted with no meet the criteria for ischemia. No clinical angina w as noted. The peak blood pressure was 130/68 mmHg. Myocardial perfusion protocol. 14.9 mCi of technetium 99m sestamibi was injected at rest. 0.4 mg of regadenoson was infused per usual protocol. Peak infusion 44.8 mCi of technetium 99m sestamibi was injected stress images were obtained stress and rest images were reconstructed in comparing the short axis vertical long horizontal long axis. Gated images were also obtained Perfusion SPECT analysis: Review of the stress images demonstrate normal uptake of tracer noted in all areas of the myocardium the resting images similarly demonstrate normal uptake of tracer noted in all areas of the myocardium. No areas of reversibility are noted to suggest ischemia. No previous infarct is noted. Gated SPECT analysis: The gated ejection fraction is noted to be 60%. Conclusion: Normal pharmacologic myocardial perfusion stress test Preserved ejection fraction.
== END ==
PROVIDERS: PCP Family Medicine Geriatric Medicine; Referring Provider Internal Medicine Cardiovascular Disease; Visit Provider Internal Medicine Cardiovascular Disease
DX: I20.8 Other forms of angina pectoris (principal)
CPT/HCPCS: 78452; 93017; A9500; A4216; J2785

== ENCOUNTER → 2020-11-16 13:21 | Outpatient (CLI) | payer MEDICARE, MEDICAID, SELFPAY ==
[2020-01-31 11:01] VITALS: BMI 40.6
[2020-07-22 10:41] VITALS: BMI 38.9
--- NOTE | 2020-11-16 14:30 | RAD_ITS ---
STUDY: X-RAY - ABDOMEN/PELVIS REASON FOR EXAM: Female, 55 years old. DIARRHEA TECHNIQUE: 5 views COMPARISON: None. FINDINGS: Normal visualized lung bases. There is an unremarkable bowel gas pattern. There is no demonstrated free abdominal air. The visualized liver, spleen and kidneys are grossly normal in size and morphology. Normal soft tissue structures. There are diffuse degenerative changes of the visualized lumbar spine. There is a rotatory scoliosis RAD/Abd Inc Decub and/or Erect IMPRESSION: No acute findings Degenerative bony changes Electronically Signed: Tomas Lambert MD at 19:04 EST , Service support ,
[2020-11-16 15:23] LABS: Absolute Lymphocyte Count 1.72 X10^3/uL (0.83-4.51); Absolute Neutrophil Count 5.3 X10^3/uL (2.0-7.7); Basophil# 0.04 X10^3/uL; Basophil% 0.5 % (0-1); Eosinophils% 1.3 % (0-5); Hematocrit 41.1 % (37-47); Hemoglobin 13.2 g/dL (12.0-15.0); Lymphocyte # 1.72 X10^3/ul (4.0); Lymphocyte % 21.9 % (19-41); Mean Corp Hgb Conc 32.1 g/dL (32-36); Mean Corpuscular Hgb 29.5 pg (27.0-32.0); Mean Corpuscular Volume 91.9 fL (81-99); Mean Platelet Vol. 9.4 fl (6.2-12.0); Monocyte% 8.9 % (0-10); NRBC Flagged by Analyzer 0 % (0-5); Neutrophil # 5.26 X10^3/uL (2.7-7.7); Neutrophil % 66.9 % (47-70); Platelet Count 419 K/mm3 (150-450); RBC Distribution Width CV 15.1 % (11.6-14.6); RBC Distribution Width SD 50.5 fl (35.1-43.9); Red Blood Count 4.47 M/mm3 (4.2-5.4); White Blood Count 7.9 K/mm3 (4.4-11.0)
[2020-11-16 15:37] LABS: Vitamin D,25 Hydroxy 48.1 ng/mL
[2020-11-16 15:46] LABS: ALB/GLOB Ratio 0.7 RATIO (0.9-2.4); AST(SGOT) 54 U/L (15-37); Alanine Aminotransfer ALT/SGPT 56 U/L (13-56); Albumin, Serum 3.6 g/dL (3.2-5.0); Alkaline Phosphatase 119 U/L (45-117); Anion Gap 8 (5-15); BUN 13 mg/dL (7-18); BUN/Creat Ratio 13.6 RATIO (10-20); Calcium,Total 8.5 mg/dL (8.5-10.1); Chloride 98 mmol/L (98-107); Creatinine, Serum 0.96 mg/dL (0.55-1.02); EST Glomerular Filtration Rate 64 mL/min (>60); Est Glom Filt Rate - Afr Amer 78 mL/min (>60); Globulin 4.9 g/dL (2.2-4.2); Glucose 185 mg/dL (74-106); Potassium 3.5 mmol/L (3.5-5.1); Protein, Total 8.5 g/dL (6.4-8.2); Sodium Level 137 mmol/L (136-145); Thyroid Stim Hormone (TSH) 6.66 uIU/mL (0.358-3.74); Uric Acid 6.3 mg/dL (2.6-6.0)
== END ==
PROVIDERS: PCP Family Medicine Geriatric Medicine; Visit Provider Family Medicine Geriatric Medicine
DX: E11.9 Type 2 diabetes mellitus without complications (principal); E55.9 Vitamin D deficiency, unspecified; I10 Essential (primary) hypertension; M10.9 Gout, unspecified
CPT/HCPCS: 36415; 74019; 80053; 82306; 84443; 84550; 85025

== ENCOUNTER 2020-12-04 12:16 | Outpatient (RCR) | payer MEDICARE, MEDICAID, SELFPAY ==
[2020-07-22 10:41] VITALS: BMI 38.9
== END 2021-02-16 23:59 ==
LOC: IMMUN 12:16
PROVIDERS: PCP Family Medicine Geriatric Medicine; Visit Provider Family Medicine
DX: Z23 Encounter for immunization (principal)
CPT/HCPCS: 0001A; 0002A; 91300

== ENCOUNTER → 2021-02-10 14:50 | Outpatient (CLI) | payer MEDICARE, MEDICAID, SELFPAY ==
[2020-07-22 10:41] VITALS: BMI 38.9
[2021-02-10 16:03] LABS: Absolute Lymphocyte Count 1.58 X10^3/uL (0.83-4.51); Absolute Neutrophil Count 3.8 X10^3/uL (2.0-7.7); Basophil# 0.02 X10^3/uL; Basophil% 0.3 % (0-1); Eosinophil# 0.06 X10^3/uL; Hemoglobin 12.3 g/dL (12.0-15.0); Lymphocyte # 1.58 X10^3/ul (0.83-4.51); Lymphocyte % 26.5 % (19-41); Mean Corp Hgb Conc 32.4 g/dL (32-36); Mean Corpuscular Hgb 30.1 pg (27.0-32.0); Mean Corpuscular Volume 92.9 fL (81-99); Mean Platelet Vol. 9.7 fl (6.2-12.0); Monocyte# 0.51 X10^3/uL; Monocyte% 8.5 % (0-10); NRBC Flagged by Analyzer 0 % (0-5); Neutrophil # 3.78 X10^3/uL (2.7-7.7); Neutrophil % 63.4 % (47-70); Platelet Count 290 K/mm3 (150-450); RBC Distribution Width CV 13.1 % (11.6-14.6); RBC Distribution Width SD 44.8 fl (35.1-43.9); Red Blood Count 4.09 M/mm3 (4.2-5.4)
[2021-02-10 16:32] LABS: ALB/GLOB Ratio 0.8 RATIO (0.9-2.4); AST(SGOT) 32 U/L (15-37); Alanine Aminotransfer ALT/SGPT 42 U/L (13-56); Albumin, Serum 3.5 g/dL (3.2-5.0); Alkaline Phosphatase 102 U/L (45-117); Anion Gap 7 (5-15); BUN 20 mg/dL (7-18); BUN/Creat Ratio 24.9 RATIO (10-20); Calcium,Total 8.5 mg/dL (8.5-10.1); Chloride 100 mmol/L (98-107); EST Glomerular Filtration Rate 78 mL/min (>60); Est Glom Filt Rate - Afr Amer 95 mL/min (>60); Globulin 4.3 g/dL (2.2-4.2); Glucose 149 mg/dL (74-106); Potassium 4.7 mmol/L (3.5-5.1); Protein, Total 7.8 g/dL (6.4-8.2); Sodium Level 139 mmol/L (136-145); Thyroid Stim Hormone (TSH) 1.37 uIU/mL (0.358-3.74); Vitamin D,25 Hydroxy 62.4 ng/mL
== END ==
PROVIDERS: PCP Family Medicine Geriatric Medicine; Visit Provider Family Medicine Geriatric Medicine
DX: E11.9 Type 2 diabetes mellitus without complications (principal); E55.9 Vitamin D deficiency, unspecified; I10 Essential (primary) hypertension
CPT/HCPCS: 36415; 80053; 82306; 84443; 85025

== ENCOUNTER → 2021-05-14 | Outpatient (CLI) | payer MEDICARE, MEDICAID, SELFPAY | END | disposition home or self-care (01) | PROVIDERS: PCP Family Medicine Geriatric Medicine; Visit Provider Family Medicine Geriatric Medicine | DX: N39.0 Urinary tract infection, site not specified (principal) | CPT/HCPCS: 87077; 87086; 87088; 87186 ==

== ENCOUNTER → 2021-05-18 | Outpatient (CLI) | payer MEDICARE, MEDICAID, SELFPAY | END | disposition home or self-care (01) | PROVIDERS: PCP Family Medicine Geriatric Medicine; Referring Provider Physician Assistant Surgical; Visit Provider Physician Assistant Surgical | DX: Z11.52 Encounter for screening for COVID-19 (principal); R68.83 Chills (without fever) | CPT/HCPCS: 87635; U0005; U0003 ==

== ENCOUNTER → 2021-05-20 13:57 | Outpatient (CLI) | payer MEDICARE, SELFPAY ==
--- NOTE | 2021-05-20 13:59 | VDLE_ITS ---
Reason For Study: Swelling RIGHT LEFT GSV is normal. CFV is compressible, spontaneous, phasic, CFV is compressible, spontaneous, phasic, competent, and demonstrates normal competent and demonstrates normal augmentation. augmentation. FV is compressible, spontaneous, phasic, competent and demonstrates normal augmentation. POP V is compressible, spontaneous, phasic, competent and demonstrates normal augmentation. T/P Trunk is compressible. PTV is compressible. RT PerV is compressible. Procedure This is a venous duplex using B-mode, color flow and spectral Doppler. Exam performed in department. A preliminary report was called and/or faxed to [place]. VL/Venous Duplex US, Unilateral Interpretation Summary Deep veins of the right lower extremity are patent and compressible segmentally . There is no evidence of right lower extremity deep vein thrombosis. Valvular competence elva ears intact within the proximal deep venous system on the right . The right great saphenous vein a ppears patent and compressible segmentally. Ordering Physician: Jory Reynoso Referring Physician: Gulshan Early Chi Performed By: Krystyna Rahman RVT
== END ==
LOC: CVS 13:58
PROVIDERS: PCP Family Medicine Geriatric Medicine
DX: M79.604 Pain in right leg (principal); M79.605 Pain in left leg; R60.9 Edema, unspecified
CPT/HCPCS: 93971

== ENCOUNTER → 2021-06-03 15:20 | Outpatient (CLI) | payer MEDICARE, SELFPAY ==
[2021-06-03 16:08] LABS: Absolute Lymphocyte Count 1.82 X10^3/uL (0.83-4.51); Basophil# 0.02 X10^3/uL; Basophil% 0.3 % (0-1); Eosinophil# 0.07 X10^3/uL; Eosinophils% 1.1 % (0-5); Hematocrit 37.5 % (37-47); Hemoglobin 11.7 g/dL (12.0-15.0); Lymphocyte # 1.82 X10^3/ul (0.83-4.51); Lymphocyte % 27.5 % (19-41); Mean Corp Hgb Conc 31.2 g/dL (32-36); Mean Corpuscular Volume 92.8 fL (81-99); Mean Platelet Vol. 9.8 fl (6.2-12.0); Monocyte# 0.63 X10^3/uL; Monocyte% 9.5 % (0-10); NRBC Flagged by Analyzer 0 % (0-5); Neutrophil # 3.98 X10^3/uL (2.7-7.7); Neutrophil % 60.2 % (47-70); Platelet Count 297 K/mm3 (150-450); RBC Distribution Width CV 13.7 % (11.6-14.6); RBC Distribution Width SD 46.3 fl (35.1-43.9); Red Blood Count 4.04 M/mm3 (4.2-5.4); White Blood Count 6.6 K/mm3 (4.4-11.0)
[2021-06-03 16:28] LABS: Vitamin D,25 Hydroxy 68.2 ng/mL
[2021-06-03 16:41] LABS: ALB/GLOB Ratio 0.7 RATIO (0.9-2.4); AST(SGOT) 17 U/L (15-37); Alanine Aminotransfer ALT/SGPT 23 U/L (13-56); Albumin, Serum 3.4 g/dL (3.2-5.0); Alkaline Phosphatase 93 U/L (45-117); Anion Gap 7 (5-15); BUN 17 mg/dL (7-18); BUN/Creat Ratio 16.8 RATIO (10-20); Calcium,Total 8.7 mg/dL (8.5-10.1); Chloride 97 mmol/L (98-107); Cholesterol 113 mg/dL (200); Creatinine, Serum 1.01 mg/dL (0.55-1.02); EST Glomerular Filtration Rate 60 mL/min (>60); Est Glom Filt Rate - Afr Amer 73 mL/min (>60); Globulin 4.6 g/dL (2.2-4.2); Glucose 378 mg/dL (74-106); High Density Lipoprotein 40 mg/dL; Sodium Level 134 mmol/L (136-145); Thyroid Stim Hormone (TSH) 2.91 uIU/mL (0.358-3.74); Triglycerides 318 mg/dL; Uric Acid 3.8 mg/dL (2.6-6.0); Very Low Density Lipoprotein 64 mg/dL (5-40)
== END ==
LOC: POLAB3 15:21
PROVIDERS: PCP Family Medicine Geriatric Medicine; Visit Provider Family Medicine Geriatric Medicine
DX: E11.9 Type 2 diabetes mellitus without complications (principal); E55.9 Vitamin D deficiency, unspecified; E78.5 Hyperlipidemia, unspecified; I10 Essential (primary) hypertension; M10.9 Gout, unspecified
CPT/HCPCS: 36415; 80053; 80061; 82306; 84443; 84550; 85025

== ENCOUNTER → 2021-07-26 15:43 | Outpatient (CLI) | payer MEDICARE, SELFPAY ==
--- NOTE | 2021-07-26 15:44 | MRI_ITS ---
STUDY: MRI LUMBAR SPINE WITHOUT CONTRAST REASON FOR EXAM: Female, 56 years old patient with low back pain and right leg weakness. TECHNIQUE: Standardized fat and water weighted pulse sequences were obtained in the sagittal and axial planes. COMPARISON: Radiographs of the lumbar spine dated 01/25/2021. FINDINGS: T12-L1: There is irregularity of the endplates probably secondary to small Schmorl''s nodes. There is narrowing of the disc. There is annular disc bulge and osteophyte complex. There is mild central acquired canal stenosis. Neural foramina are patent. There is an exaggerated lumbar lordosis. There is mild curvature of the thoracic and lumbar spine with convexity towards the left. Normal conus medullaris that terminates at the L1 level. L1-2: There is irregularity of the endplates suggesting possible sequela Schmorl''s nodes. There is mild annular disk bulge and osteophyte complex. There is mild degenerative arthropathy of the facet joints. Bilateral neuroforamina are moderately narrowed without MR evidence for nerve impingement. There is no significant acquired central canal stenosis. L2-3: There is a broad central disc protrusion with [id number] central canal stenosis. There is severe degenerative arthropathy of the facet joints. The neural foramina are narrowed with potential impingement of the right L2 nerve root at the neural foramen. L3-4: There is a moderately large annular disk bulge and osteophyte complex. There is moderately severe degenerative arthropathy of the facet joints. Bilateral neuroforamina are narrowed with MR evidence for right-sided L3 nerve impingement. There is moderate acquired central canal stenosis. L4-5: There is mild annular disk bulge and osteophyte complex. There is severe degenerative arthropathy of the facet joints. Bilateral neuroforamina are narrowed with MR evidence for potential bilateral L4 nerve impingement. There is moderate acquired central canal stenosis. L5-S1: There is mild annular disk bulge and osteophyte complex. There is mild degenerative arthropathy of the facet joints. Bilateral neuroforamina are narrowed without MR evidence for nerve impingement. There is no significant acquired central canal stenosis. Normal visualized sacral ala. There is mild paraspinal muscular atrophy. MRI/Spine Lumbar (Routine) IMPRESSION: Moderately severe multilevel degenerative disc disease and degenerative arthropathy of the lumbar spine with neural foraminal narrowing, central canal stenosis and potential nerve impingement, as described. Electronically Signed: Salima Sarkar MD at 4:49 EST , Service support ,
--- NOTE | 2021-07-26 16:50 | MRI_ITS ---
STUDY: MRI RIGHT KNEE REASON FOR EXAM: Female, 56 years old. Pain. Knee popping. TECHNIQUE: Standardized fat and water weighted pulse sequences were obtained in all 3 orthogonal planes. COMPARISON: X-ray dated 01/25/2021. FINDINGS: Grade 2/3 cartilage loss at the patellofemoral articulation with additional chondromalacia at the lateral patellar facet. Lateral compartment grade 2/3 cartilage loss. Medial compartment grade 3/4 cartilage loss. No acute fracture, dislocation or bone destruction. Medial meniscus posterior horn oblique tear predominating at the free edge (sagittal images 19 through 21 series 5). Lateral meniscus degeneration with oblique tear at the meniscal body/anterior horn extending to the inferior articular surface (coronal images 16 through 20 series 7). Anterior cruciate ligament degeneration with high-grade partial tear (sagittal image 13 series 5). Posterior cruciate ligament with degeneration without tear. Large volume joint effusion. Small leaking popliteal cyst. Mild subcutaneous soft tissue swelling. Intact medial collateral ligamentous complex (MCL). Normal distal semimembranosus, gracilis and semitendinosus tendons. Normal proximal tibiofibular articulation. Intact lateral collateral (fibular) ligament. Normal popliteus tendon. Normal biceps femoris tendon. Normal medial and lateral patellar retinaculum. Normal quadriceps tendon. Normal patellar tendon. Normal Hoffa''s fat pad. MRI/Lower Ext Joint Only (Routine) IMPRESSION: Medial and lateral meniscal tears ACL degeneration with high-grade partial tear (correlate laxity) PCL degeneration without tear Moderate/severe tricompartmental osteoarthritis predominating medially Large volume joint effusion, small popliteal cyst and mild subcutaneous swelling Electronically Signed: Pérez Elias DO at 9:18 EST Tel , Service support ,
== END ==
PROVIDERS: PCP Family Medicine Geriatric Medicine; Visit Provider Orthopaedic Surgery
DX: M54.16 Radiculopathy, lumbar region (principal); R29.898 Other symptoms and signs involving the musculoskeletal system; M25.561 Pain in right knee; M21.061 Valgus deformity, not elsewhere classified, right knee; M17.11 Unilateral primary osteoarthritis, right knee; M79.604 Pain in right leg; M79.89 Other specified soft tissue disorders
CPT/HCPCS: 72148; 73721

== ENCOUNTER → 2021-08-25 15:22 | Outpatient (CLI) | payer MEDICARE, SELFPAY ==
[2021-08-25 16:41] LABS: Absolute Lymphocyte Count 1.69 X10^3/uL (0.83-4.51); Absolute Neutrophil Count 5.3 X10^3/uL (2.0-7.7); Basophil# 0.03 X10^3/uL; Basophil% 0.4 % (0-1); Eosinophil# 0.09 X10^3/uL; Eosinophils% 1.1 % (0-5); Hematocrit 39.5 % (37-47); Hemoglobin 12.4 g/dL (12.0-15.0); Lymphocyte # 1.69 X10^3/ul (0.83-4.51); Lymphocyte % 21.6 % (19-41); Mean Corp Hgb Conc 31.4 g/dL (32-36); Mean Corpuscular Volume 92.5 fL (81-99); Mean Platelet Vol. 9.5 fl (6.2-12.0); Monocyte# 0.75 X10^3/uL; Monocyte% 9.6 % (0-10); NRBC Flagged by Analyzer 0 % (0-5); Neutrophil # 5.26 X10^3/uL (2.7-7.7); Platelet Count 289 K/mm3 (150-450); RBC Distribution Width CV 14.2 % (11.6-14.6); RBC Distribution Width SD 47.7 fl (35.1-43.9); Red Blood Count 4.27 M/mm3 (4.2-5.4); White Blood Count 7.8 K/mm3 (4.4-11.0)
[2021-08-25 16:55] LABS: Vitamin D,25 Hydroxy 68.4 ng/mL
[2021-08-25 17:11] LABS: ALB/GLOB Ratio 0.8 RATIO (0.9-2.4); AST(SGOT) 16 U/L (15-37); Alanine Aminotransfer ALT/SGPT 28 U/L (13-56); Albumin, Serum 3.4 g/dL (3.2-5.0); Alkaline Phosphatase 82 U/L (45-117); Anion Gap 7 (5-15); BUN 17 mg/dL (7-18); BUN/Creat Ratio 21.5 RATIO (10-20); Calcium,Total 8.1 mg/dL (8.5-10.1); Chloride 104 mmol/L (98-107); Cholesterol 114 mg/dL (200); Creatinine, Serum 0.79 mg/dL (0.55-1.02); EST Glomerular Filtration Rate 80 mL/min (>60); Est Glom Filt Rate - Afr Amer 96 mL/min (>60); Globulin 4.5 g/dL (2.2-4.2); Glucose 127 mg/dL (74-106); High Density Lipoprotein 52 mg/dL; Potassium 4.3 mmol/L (3.5-5.1); Protein, Total 7.9 g/dL (6.4-8.2); Sodium Level 141 mmol/L (136-145); Thyroid Stim Hormone (TSH) 2.03 uIU/mL (0.358-3.74); Triglycerides 254 mg/dL; Very Low Density Lipoprotein 51 mg/dL (5-40)
[2021-08-27 14:14] LABS: Fructosamine 308 umol/L (0-285)
== END ==
LOC: POLAB3 15:24
PROVIDERS: Orthopaedic Surgery; PCP Family Medicine Geriatric Medicine; Visit Provider Family Medicine Geriatric Medicine
DX: E11.9 Type 2 diabetes mellitus without complications (principal); E55.9 Vitamin D deficiency, unspecified; E78.5 Hyperlipidemia, unspecified; I10 Essential (primary) hypertension
CPT/HCPCS: 36415; 80053; 80061; 82306; 82985; 84443; 85025

== ENCOUNTER 2021-11-23 14:58 | Outpatient (CLI) | payer MEDICARE, SELFPAY ==
[2021-11-23 17:14] LABS: Absolute Lymphocyte Count 2.31 X10^3/uL (0.83-4.51); Basophil# 0.04 X10^3/uL; Basophil% 0.5 % (0-1); Eosinophil# 0.09 X10^3/uL; Eosinophils% 1.1 % (0-5); Hemoglobin 11.9 g/dL (12.0-15.0); Lymphocyte # 2.31 X10^3/ul (0.83-4.51); Lymphocyte % 28.2 % (19-41); Mean Corp Hgb Conc 31.3 g/dL (32-36); Mean Corpuscular Hgb 28.7 pg (27.0-32.0); Mean Corpuscular Volume 91.6 fL (81-99); Mean Platelet Vol. 10.1 fl (6.2-12.0); Monocyte# 0.73 X10^3/uL; Monocyte% 8.9 % (0-10); NRBC Flagged by Analyzer 0 % (0-5); Neutrophil # 4.99 X10^3/uL (2.7-7.7); Neutrophil % 61.1 % (47-70); Platelet Count 307 K/mm3 (150-450); RBC Distribution Width CV 14.7 % (11.6-14.6); RBC Distribution Width SD 49.7 fl (35.1-43.9); Red Blood Count 4.15 M/mm3 (4.2-5.4); White Blood Count 8.2 K/mm3 (4.4-11.0)
[2021-11-23 17:31] LABS: Vitamin D,25 Hydroxy 63.4 ng/mL
[2021-11-23 17:38] LABS: ALB/GLOB Ratio 0.9 RATIO (0.9-2.4); AST(SGOT) 18 U/L (15-37); Alanine Aminotransfer ALT/SGPT 27 U/L (13-56); Albumin, Serum 3.6 g/dL (3.2-5.0); Alkaline Phosphatase 80 U/L (45-117); Anion Gap 5 (5-15); BUN 22 mg/dL (7-18); BUN/Creat Ratio 22.1 RATIO (10-20); Calcium,Total 8.6 mg/dL (8.5-10.1); Chloride 105 mmol/L (98-107); Creatinine, Serum 0.99 mg/dL (0.55-1.02); EST Glomerular Filtration Rate 61 mL/min (>60); Est Glom Filt Rate - Afr Amer 74 mL/min (>60); Glucose 103 mg/dL (74-106); Potassium 4.4 mmol/L (3.5-5.1); Protein, Total 7.6 g/dL (6.4-8.2); Sodium Level 137 mmol/L (136-145); Thyroid Stim Hormone (TSH) 0.92 uIU/mL (0.358-3.74); Uric Acid 3.3 mg/dL (2.6-6.0)
== END 2021-11-23 23:59 | disposition home or self-care (01) ==
LOC: POLAB3 14:59
PROVIDERS: PCP Family Medicine Geriatric Medicine; Visit Provider Family Medicine Geriatric Medicine
DX: E11.9 Type 2 diabetes mellitus without complications (principal); E55.9 Vitamin D deficiency, unspecified; I10 Essential (primary) hypertension; M10.9 Gout, unspecified
CPT/HCPCS: 36415; 80053; 82306; 84443; 84550; 85025; 87077; 87086; 87088; 87186

== ENCOUNTER → 2022-02-23 | Outpatient (CLI) | payer MEDICARE, SELFPAY | END | disposition home or self-care (01) | LOC: POLAB3 12:58 | PROVIDERS: PCP Family Medicine Geriatric Medicine; Visit Provider Family Medicine Geriatric Medicine | DX: E11.9 Type 2 diabetes mellitus without complications (principal); E55.9 Vitamin D deficiency, unspecified; I10 Essential (primary) hypertension ==

== ENCOUNTER 2022-04-08 11:17 | Outpatient (CLI) | payer MEDICARE, MEDICAID, SELFPAY ==
--- NOTE | 2022-04-08 11:19 | VDUE_ITS ---
Reason For Study: Edema Left Proximal Left jugular vein is spontaneous, widely patent, phasic, with no intraluminal echogenicity noted. Left subclavian vein is spontaneous, widely patent, phasic, with no intraluminal echogenicity noted. Left Arm Left axillary vein is spontaneous, patent, phasic, competent, compressible and demonstrates augmentation. Left brachial vein is compressible. Left cephalic vein is compressible. Left basilic vein is compressible. Left Lower Arm Left radial vein is compressible. Left ulnar vein is compressible. Patient Safety Preliminary faxed to [facility]. VL/Venous Duplex US, Unilateral Interpretation Summary Deep veins of the left upper extremity are patent and compressible segmentally. There is no evidence of deep vein thrombosis. The superficial veins of the left upper extremity, the basilic and cephalic veins, are patent and compressible. There is no evidence of left upper extremit y superficial thrombophlebitis involving the veins imaged. Ordering Physician: Gulshan Early Referring Physician: Gulshan Early Chi Performed By: Krystyna Rahman RVT ?
== END 2022-04-08 23:59 | disposition home or self-care (01) ==
LOC: CVS 11:18
PROVIDERS: PCP Family Medicine Geriatric Medicine; Referring Provider Family Medicine Geriatric Medicine; Visit Provider Family Medicine Geriatric Medicine
DX: R60.0 Localized edema (principal)
CPT/HCPCS: 93971

== ENCOUNTER → 2022-07-13 | Outpatient (CLI) | payer MEDICARE, MEDICAID, SELFPAY ==
[2022-07-13 13:15] LABS: Hemoglobin A1c 7.5 % (3.8-5.6)
[2022-07-14 16:19] LABS: Fructosamine 285 umol/L (0-285)
== END | disposition home or self-care (01) ==
PROVIDERS: PCP Family Medicine Geriatric Medicine; Referring Provider Orthopaedic Surgery; Visit Provider Orthopaedic Surgery
DX: E11.65 Type 2 diabetes mellitus with hyperglycemia (principal)
CPT/HCPCS: 36415; 82985; 83036

== ENCOUNTER → 2022-08-19 | Outpatient (CLI) | payer MEDICARE, MEDICAID, SELFPAY ==
--- NOTE | 2022-08-19 16:51 | CT_ITS ---
HISTORY: templating for right TKA. TECHNIQUE: Helically acquired images were obtained of the right lower extremity without intravenous contrast utilizing LAZARUS protocol. 2-D reformats were performed by the technologist. A radiation dose optimization technique was used for this scan. 1164 images. COMPARISON: 01/25/2021. FINDINGS: BONES: No acute osseous abnormality identified. Left knee arthroplasty noted on the merchandising execution manager image. JOINT SPACES: No right hip dislocation. Tricompartment osteophytes and joint space narrowing of the knee. Moderate joint effusion of the right knee. SOFT TISSUES: Overlying markers identified. Subcutaneous edema of the ankle. Peripheral vascular disease present. CT/Extremity Lower without Contra IMPRESSION: CT right knee LAZARUS protocol. Degenerative changes of the right knee with joint effusion. Electronically Signed: Gillian Moss MD at 10:03 EST Reading Location ID and State: [facility] / [place] Tel , Service support ,
== END | disposition home or self-care (01) ==
LOC: CT 16:49
PROVIDERS: PCP Family Medicine Geriatric Medicine; Referring Provider Orthopaedic Surgery; Visit Provider Orthopaedic Surgery
DX: M17.11 Unilateral primary osteoarthritis, right knee (principal); R60.0 Localized edema; Z96.652 Presence of left artificial knee joint
CPT/HCPCS: 73700

== ENCOUNTER → 2022-08-29 | Outpatient (CLI) | payer MEDICARE, MEDICAID, SELFPAY ==
--- NOTE | 2022-08-29 14:12 | EKG12_ITS ---
Test Reason : PREOP Blood Pressure : / mmHG Vent. Rate : 094 BPM Atrial Rate : 094 BPM P-R Int : 152 ms QRS Dur : 090 ms QT Int : 368 ms P-R-T Axes : 031 -05 008 degrees QTc Int : 460 ms Normal sinus rhythm Nonspecific ST abnormality Abnormal ECG Confirmed by GUTIERREZ VEGA, SUZAN ([id number]), online editor JG JUAREZ ([id number]) on 08/30/2022 7:54:30 AM Referred By: GLENROY Confirmed By:SUZAN WHITLEY MD
[2022-08-29 14:56] LABS: Absolute Lymphocyte Count 1.22 X10^3/uL (0.83-4.51); Absolute Neutrophil Count 3.2 X10^3/uL (2.0-7.7); Basophil# 0.03 X10^3/uL; Basophil% 0.6 % (0-1); Eosinophil# 0.07 X10^3/uL; Eosinophils% 1.4 % (0-5); Hemoglobin 12.8 g/dL (12.0-15.0); Lymphocyte # 1.22 X10^3/ul (0.83-4.51); Lymphocyte % 24.5 % (19-41); Mean Corp Hgb Conc 31.2 g/dL (32-36); Mean Corpuscular Hgb 28.4 pg (27.0-32.0); Mean Corpuscular Volume 90.9 fL (81-99); Mean Platelet Vol. 9.5 fl (6.2-12.0); Monocyte# 0.43 X10^3/uL; Monocyte% 8.6 % (0-10); NRBC Flagged by Analyzer 0 % (0-5); Neutrophil # 3.22 X10^3/uL (2.7-7.7); Neutrophil % 64.7 % (47-70); Platelet Count 313 K/mm3 (150-450); RBC Distribution Width CV 14.8 % (11.6-14.6); RBC Distribution Width SD 48.9 fl (35.1-43.9); Red Blood Count 4.51 M/mm3 (4.2-5.4)
[2022-08-29 15:09] LABS: International Normalized Ratio 1.1; Prothrombin Time (Protime)PT. 14.1 SECONDS (11.7-14.9)
[2022-08-29 15:10] LABS: Partial Thromboplast Time 32.4 Seconds (24.1-36.2)
[2022-08-29 15:24] LABS: Anion Gap 8 (5-15); BUN 13 mg/dL (7-18); BUN/Creat Ratio 14.8 RATIO (10-20); Calcium,Total 8.9 mg/dL (8.5-10.1); Chloride 103 mmol/L (98-107); Creatinine, Serum 0.88 mg/dL (0.55-1.02); EST Glomerular Filtration Rate 70 mL/min (>60); Est Glom Filt Rate - Afr Amer 85 mL/min (>60); Glucose 354 mg/dL (74-106); Potassium 3.7 mmol/L (3.5-5.1); Sodium Level 138 mmol/L (136-145)
[2022-08-29 15:43] LABS: Hemoglobin A1c 7.9 % (3.8-5.6)
[2022-08-29 15:44] LABS: Magnesium 1.9 mg/dL (1.6-2.6)
== END | disposition home or self-care (01) ==
LOC: PAT 09-06 17:43
PROVIDERS: Anesthesiology; PCP Family Medicine Geriatric Medicine; Visit Provider Orthopaedic Surgery
DX: Z01.810 Encounter for preprocedural cardiovascular examination (principal); R94.31 Abnormal electrocardiogram [ECG] [EKG]; Z01.818 Encounter for other preprocedural examination; Z01.812 Encounter for preprocedural laboratory examination
CPT/HCPCS: 36415; 80048; 83036; 83735; 84443; 85025; 85610; 85730; 86850; 86900; 86901; 87077; 87081; 93005

== ENCOUNTER 2022-09-09 11:30 | Outpatient (CLI) | payer MEDICARE, MEDICAID, SELFPAY | END 2022-09-09 23:59 | disposition home or self-care (01) | LOC: PSN 11:31 | PROVIDERS: PCP Family Medicine Geriatric Medicine; Referring Provider Family Medicine Geriatric Medicine; Visit Provider Family Medicine Geriatric Medicine | DX: R68.83 Chills (without fever) (principal); E11.65 Type 2 diabetes mellitus with hyperglycemia; E55.9 Vitamin D deficiency, unspecified; I10 Essential (primary) hypertension | CPT/HCPCS: 36415; 80053; 80061; 82306; 82985; 84443; 85025; 87635; 87804; 87807; C9803; U0003; U0005 ==

== ENCOUNTER → 2022-09-09 | Outpatient (CLI) | payer MEDICARE, MEDICAID, SELFPAY ==
[2022-09-09 13:42] LABS: Absolute Lymphocyte Count 1.25 X10^3/uL (0.83-4.51); Absolute Neutrophil Count 3.7 X10^3/uL (2.0-7.7); Basophil# 0.02 X10^3/uL; Basophil% 0.4 % (0-1); Eosinophils% 1.8 % (0-5); Hematocrit 39.8 % (37-47); Hemoglobin 12.4 g/dL (12.0-15.0); Lymphocyte # 1.25 X10^3/ul (0.83-4.51); Lymphocyte % 22.6 % (19-41); Mean Corp Hgb Conc 31.2 g/dL (32-36); Mean Corpuscular Hgb 28.8 pg (27.0-32.0); Mean Corpuscular Volume 92.3 fL (81-99); Mean Platelet Vol. 9.6 fl (6.2-12.0); Monocyte# 0.47 X10^3/uL; Monocyte% 8.5 % (0-10); NRBC Flagged by Analyzer 0 % (0-5); Neutrophil # 3.67 X10^3/uL (2.7-7.7); Neutrophil % 66.5 % (47-70); Platelet Count 278 K/mm3 (150-450); RBC Distribution Width CV 14.3 % (11.6-14.6); RBC Distribution Width SD 48.6 fl (35.1-43.9); Red Blood Count 4.31 M/mm3 (4.2-5.4); White Blood Count 5.5 K/mm3 (4.4-11.0)
[2022-09-09 13:54] LABS: Vitamin D,25 Hydroxy 46.8 ng/mL
[2022-09-09 13:59] LABS: ALB/GLOB Ratio 0.8 RATIO (0.9-2.4); AST(SGOT) 14 U/L (15-37); Alanine Aminotransfer ALT/SGPT 21 U/L (13-56); Albumin, Serum 3.4 g/dL (3.2-5.0); Alkaline Phosphatase 84 U/L (45-117); Anion Gap 6 (5-15); BUN 17 mg/dL (7-18); BUN/Creat Ratio 18.9 RATIO (10-20); Calcium,Total 8.3 mg/dL (8.5-10.1); Chloride 104 mmol/L (98-107); Cholesterol 139 mg/dL (200); EST Glomerular Filtration Rate 69 mL/min (>60); Est Glom Filt Rate - Afr Amer 83 mL/min (>60); Globulin 4.2 g/dL (2.2-4.2); Glucose 257 mg/dL (74-106); High Density Lipoprotein 52 mg/dL; Protein, Total 7.6 g/dL (6.4-8.2); Sodium Level 140 mmol/L (136-145); Triglycerides 377 mg/dL; Very Low Density Lipoprotein 75 mg/dL (5-40)
[2022-09-11 12:11] LABS: Fructosamine 281 umol/L (0-285)
== END | disposition home or self-care (01) ==
LOC: POLAB3 10:19
PROVIDERS: Orthopaedic Surgery; PCP Family Medicine Geriatric Medicine; Visit Provider Family Medicine Geriatric Medicine
DX: E55.9 Vitamin D deficiency, unspecified (principal); E11.65 Type 2 diabetes mellitus with hyperglycemia; I10 Essential (primary) hypertension
CPT/HCPCS: 36415; 80053; 80061; 82306; 82985; 84443; 85025

== ENCOUNTER → 2022-10-11 | Outpatient (CLI) | payer MEDICARE, MEDICAID, SELFPAY | END | disposition home or self-care (01) | LOC: PSN 13:39 | PROVIDERS: PCP Family Medicine Geriatric Medicine; Referring Provider Family Medicine Geriatric Medicine; Visit Provider Family Medicine Geriatric Medicine | DX: R68.83 Chills (without fever) (principal) | CPT/HCPCS: 87635; 87804; 87807; C9803; U0003; U0005 ==

== ENCOUNTER → 2022-11-21 | Outpatient (CLI) | payer MEDICARE, MEDICAID, SELFPAY ==
[2022-11-21 17:33] LABS: Absolute Neutrophil Count 3.5 X10^3/uL (2.0-7.7); Basophil# 0.03 X10^3/uL; Basophil% 0.5 % (0-1); Eosinophil# 0.11 X10^3/uL; Eosinophils% 1.9 % (0-5); Hematocrit 38.8 % (37-47); Hemoglobin 12.1 g/dL (12.0-15.0); Lymphocyte % 28.3 % (19-41); Mean Corp Hgb Conc 31.2 g/dL (32-36); Mean Corpuscular Hgb 28.5 pg (27.0-32.0); Mean Corpuscular Volume 91.5 fL (81-99); Mean Platelet Vol. 9.5 fl (6.2-12.0); Monocyte# 0.44 X10^3/uL; Monocyte% 7.8 % (0-10); NRBC Flagged by Analyzer 0 % (0-5); Neutrophil # 3.45 X10^3/uL (2.7-7.7); Neutrophil % 61.1 % (47-70); Platelet Count 285 K/mm3 (150-450); RBC Distribution Width CV 14.2 % (11.6-14.6); RBC Distribution Width SD 47.4 fl (35.1-43.9); Red Blood Count 4.24 M/mm3 (4.2-5.4); White Blood Count 5.7 K/mm3 (4.4-11.0)
[2022-11-21 17:49] LABS: Vitamin D,25 Hydroxy 51.4 ng/mL
[2022-11-21 17:55] LABS: ALB/GLOB Ratio 0.8 RATIO (0.9-2.4); AST(SGOT) 16 U/L (15-37); Alanine Aminotransfer ALT/SGPT 22 U/L (13-56); Albumin, Serum 3.4 g/dL (3.2-5.0); Alkaline Phosphatase 81 U/L (45-117); Anion Gap 7 (5-15); BUN 15 mg/dL (7-18); BUN/Creat Ratio 19.9 RATIO (10-20); Calcium,Total 8.8 mg/dL (8.5-10.1); Chloride 104 mmol/L (98-107); Cholesterol 105 mg/dL (200); Creatinine, Serum 0.75 mg/dL (0.55-1.02); EST Glomerular Filtration Rate 84 mL/min (>60); Est Glom Filt Rate - Afr Amer 102 mL/min (>60); Globulin 4.1 g/dL (2.2-4.2); Glucose 156 mg/dL (74-106); High Density Lipoprotein 48 mg/dL; Potassium 4.6 mmol/L (3.5-5.1); Protein, Total 7.5 g/dL (6.4-8.2); Sodium Level 142 mmol/L (136-145); Thyroid Stim Hormone (TSH) 0.99 uIU/mL (0.358-3.74); Triglycerides 243 mg/dL; Very Low Density Lipoprotein 49 mg/dL (5-40)
== END | disposition home or self-care (01) ==
LOC: POLAB3 14:03
PROVIDERS: PCP Family Medicine Geriatric Medicine; Visit Provider Family Medicine Geriatric Medicine
DX: E03.9 Hypothyroidism, unspecified (principal); E11.65 Type 2 diabetes mellitus with hyperglycemia; E55.9 Vitamin D deficiency, unspecified; I10 Essential (primary) hypertension; E78.5 Hyperlipidemia, unspecified
CPT/HCPCS: 36415; 80053; 80061; 82306; 84443; 85025

== ENCOUNTER → 2023-01-19 | Outpatient (CLI) | payer MEDICARE, MEDICAID, SELFPAY | END | disposition home or self-care (01) | PROVIDERS: PCP Family Medicine Geriatric Medicine; Referring Provider Podiatrist; Visit Provider Podiatrist | DX: L03.115 Cellulitis of right lower limb (principal) | CPT/HCPCS: 87070; 87077; 87186; 87205 ==

== ENCOUNTER → 2023-02-20 | Outpatient (CLI) | payer MEDICARE, MEDICAID, SELFPAY ==
[2023-02-20 15:40] LABS: Absolute Neutrophil Count 5.2 X10^3/uL (2.0-7.7); Basophil# 0.02 X10^3/uL; Basophil% 0.3 % (0-1); Eosinophil# 0.14 X10^3/uL; Eosinophils% 1.9 % (0-5); Hematocrit 38.8 % (37-47); Hemoglobin 11.9 g/dL (12.0-15.0); Lymphocyte % 18.8 % (19-41); Mean Corp Hgb Conc 30.7 g/dL (32-36); Mean Corpuscular Hgb 27.8 pg (27.0-32.0); Mean Corpuscular Volume 90.7 fL (81-99); Mean Platelet Vol. 9.3 fl (6.2-12.0); Monocyte# 0.63 X10^3/uL; Monocyte% 8.5 % (0-10); NRBC Flagged by Analyzer 0 % (0-5); Neutrophil # 5.22 X10^3/uL (2.7-7.7); Neutrophil % 70.2 % (47-70); Platelet Count 296 K/mm3 (150-450); RBC Distribution Width CV 14.3 % (11.6-14.6); RBC Distribution Width SD 47.8 fl (35.1-43.9); Red Blood Count 4.28 M/mm3 (4.2-5.4); White Blood Count 7.4 K/mm3 (4.4-11.0)
[2023-02-20 16:04] LABS: Hemoglobin A1c 6.4 % (3.8-5.6)
[2023-02-20 16:31] LABS: ALB/GLOB Ratio 0.7 RATIO (0.9-2.4); AST(SGOT) 19 U/L (15-37); Alanine Aminotransfer ALT/SGPT 26 U/L (13-56); Albumin, Serum 3.2 g/dL (3.2-5.0); Alkaline Phosphatase 91 U/L (45-117); Anion Gap 5 (5-15); BUN 20 mg/dL (7-18); BUN/Creat Ratio 31.5 RATIO (10-20); Calcium,Total 8.2 mg/dL (8.5-10.1); Chloride 105 mmol/L (98-107); Cholesterol 93 mg/dL (200); Creatinine, Serum 0.64 mg/dL (0.55-1.02); EST Glomerular Filtration Rate 102 mL/min (>60); Est Glom Filt Rate - Afr Amer 123 mL/min (>60); Globulin 4.8 g/dL (2.2-4.2); Glucose 91 mg/dL (74-106); High Density Lipoprotein 57 mg/dL; Potassium 4.7 mmol/L (3.5-5.1); Sodium Level 139 mmol/L (136-145); Thyroid Stim Hormone (TSH) 0.16 uIU/mL (0.358-3.74); Triglycerides 101 mg/dL; Very Low Density Lipoprotein 20 mg/dL (5-40)
== END | disposition home or self-care (01) ==
LOC: LAB 15:02
PROVIDERS: PCP Family Medicine Geriatric Medicine; Referring Provider Family Medicine Geriatric Medicine; Visit Provider Family Medicine Geriatric Medicine
DX: E11.65 Type 2 diabetes mellitus with hyperglycemia (principal); I10 Essential (primary) hypertension
CPT/HCPCS: 36415; 80053; 80061; 83036; 84443; 85025

== ENCOUNTER 2023-03-01 09:23 | Inpatient (IN) | payer MEDICARE, MEDICAID, SELFPAY ==
[2023-03-01] VITALS (9 sets, daily range): BP systolic 97–142; BP diastolic 53–89; PULSE 68–93; RESP 16–31; TEMP 36.4–36.7; O2SAT 79–100; BMI 36.5; BMI 37.1
--- NOTE | 2023-03-01 09:31 | EDS_ITS ---
HPI History of Present Illness Chief Complaint: Wound [facility] Medical History Anxiety Arthritis Asthma Asthma Back pain Broken teeth Cardiology follow-up encounter Chronic steroid use CPAP (continuous positive airway pressure) dependence Depression Dermatitis Diabetes type 2, uncontrolled Dietary restriction Difficulty balancing when standing Edema Essential (primary) hypertension Fibromyalgia GERD (gastroesophageal reflux disease) Hammertoe of left foot History of pain when walking History of stress test Hypergammaglobulinemia Hyperlipemia Hypertension Hypothyroidism Iron deficiency Leg cramping Morbid obesity with BMI of 40.0-44.9, adult Multinodular thyroid Non-smoker Normal echocardiogram Osteomyelitis of toe Other specified peripheral vascular diseases PAD (peripheral artery disease) Shortness of breath Skin ulcer of right foot including toes with fat layer exposed Venous stasis dermatitis of both lower extremities Wears glasses Home Medications celecoxib 200 mg capsule 200 mg PO DAILY arthritis 10/18/18 [History Last Taken 11/12/19 09:00] loratadine 10 mg capsule 10 mg PO DAILY allergies 10/18/18 [History Last Taken 11/11/19 09:00] metformin 1,000 mg tablet 1,000 mg PO BID diabetes 10/18/18 [History Last Taken 11/11/19 22:00] montelukast 10 mg tablet 10 mg PO QHS asthma 10/18/18 [History Last Taken 11/11/19 22:00] omeprazole 40 mg capsule,delayed release 40 mg PO DAILY gerd 10/18/18 [History Last Taken 11/11/19 05:00] calcium carbonate 500 mg-vitamin D3 10 mcg (400 unit) tablet 1 ea PO DAILY supplement 10/29/19 [History Last Taken 11/12/19 09:00] paroxetine HCl 40 mg tablet 40 mg PO DAILY depression 10/29/19 [History Last Taken 11/11/19 22:00] potassium chloride 20 mEq tablet,extended release(part/cryst) 20 meq PO DAILY supplement 10/29/19 [History Last Taken 11/11/19 09:00] pregabalin 150 mg capsule 150 mg PO TID nerve pain 10/29/19 [History Last Taken 11/12/19 05:00] aspirin 81 mg tablet,delayed release (Adult Low Dose Aspirin) 81 mg PO DAILY HEART 07/21/20 [History Last Taken Unknown] cilostazol 100 mg tablet 100 mg PO BID CHOLESTEOL 07/21/20 [History Last Taken Unknown] levothyroxine 175 mcg tablet 175 mcg PO DAILY THYROID 07/21/20 [History Last Taken Unknown] metoprolol succinate 200 mg tablet,extended release 24 hr 200 mg PO DAILY BP 07/21/20 [History Last Taken Unknown] albuterol sulfate 90 mcg/actuation aerosol inhaler (ProAir HFA) 1 inh inhalation Q6H PRN SOB 08/26/22 [History Last Taken Unknown] ferrous sulfate 325 mg (65 mg iron) tablet (iron) 325 mg PO DAILY ANEMIA 08/26/22 [History Last Taken Unknown] rosuvastatin 40 mg tablet (Crestor) 40 mg PO DAILY CHOLESTEROL 08/26/22 [History Last Taken Unknown] insulin detemir U-100 100 unit/mL (3 mL) subcutaneous pen (Levemir FlexPen) 60 unit (0.6 mL) subcut DAILY #18 mL 02/13/23 [Rx Last Taken Unknown] pen needle, diabetic 32 gauge x 5/32 (BD Ultra-Fine Catalina Pen Needle) #100 ea 02/13/23 [Rx Last Taken Unknown] tirzepatide 2.5 mg/0.5 mL subcutaneous pen injector (Mounjaro) 2.5 mg (0.5 mL) subcut QWEEK 4 weeks #2 mL 02/13/23 [Rx Last Taken Unknown] Allergy/AdvReac Type Severity Reaction Status Date / Time piperacillin [From Zosyn] Allergy Severe Anaphylaxis Verified 03/01/23 10:39 tazobactam [From Zosyn] Allergy Severe Anaphylaxis Verified 03/01/23 10:39 latex Allergy Rash Verified 03/01/23 09:27 tetanus and diphtheria Allergy Anaphylaxis Verified 03/01/23 09:27 toxoids [Tetanus&Diphtheria Toxoid] flea medicine Allergy Anaphylaxis, Uncoded 03/01/23 09:27 Diarrhea Family History Mother Diabetes Dementia Father Diabetes Myocardial infarction Surgical History H/O amputation of lesser toe (05/05/17) H/O arthroscopic knee surgery (11/2019) History of cholecystectomy History of nasal septoplasty History of thyroidectomy Hx of total knee arthroplasty Social History Smoking Status: Never smoker alcohol intake: current alcohol intake frequency: holidays/special occasions only EXAM Physical Exam Const Vital Signs: 03/01/23 09:24 03/01/23 10:36 Temperature 97.6 F L 98.1 F Temperature Source Temporal Oral Pulse Rate 74 93 Respiratory Rate 16 31 H Blood Pressure 122/77 H 101/89 H Blood Pressure Mean 92 93 Pulse Ox 100 79 Oxygen Delivery Method Room Air Room Air [facility] Narrative Medical decision making narrative: HISTORY OF PRESENT ILLNESS: 57-year-old female here with concern for diabetic foot infection. She was sent in by her master at arms Dr. Navarro who requested patient be admitted to medicine service with a podiatry consult. He further requested placing the patient on broad-spectrum antibiotics. The patient states REVIEW OF SYSTEMS: Pertinent positives: Wound Pertinent negatives: PHYSICAL EXAM: Nursing triage notes reviewed, Vital signs reviewed Constitutional: please see mdm HENT: MMM Eyes: Pupils equal round and reactive to light, Extraocular muscles intact Neck: No stridor, no JVD, full neck ROM Lungs: Clear to auscultation, No wheezing or rales. No increased work of breathing, no conversational dyspnea, no accessory muscle use, no nasal flaring. No respiratory distress noted Heart: Regular rate and rhythm, No murmurs, No rubs and No gallops, 2+ distal pulses (radial, femoral, posterior tibial) in all extremities Abdomen: Soft, there is no tenderness, rigidity, rebound or guarding, no obvious peritoneal signs, no palpable pulsatile abdominal masses, no auscultated abdominal bruit : No CVAT Extremities: No edema Neuro: Intact sensation L1-S1 dermatomal distributions. Intact 5/5 strength in hip flexion (T12-L3). Knee extension (L2-L4). Ankle dorsiflexion (L4-L5). Ankle plantar flexion (S1). Great toe extension (L5). 2+ patellar and Achilles DTRs. Skin: 2 x 2 cm ulceration noted to the lateral surface of the fifth metatarsal, fifth digit MEDICAL DECISION MAKING: Chief Complaint: Wound External records reviewed: History of cellulitis Factors affecting care: Type 2 diabetes Social determinants of health: Current alcohol History obtained from others: Consults: Internal medicine, podiatry ALL IMAGES (IF OBTAINED) HAVE BEEN PERSONALLY REVIEWED AND INTERPRETED BY MYSELF. [facility] Narrative: The patient was hemodynamically stable, afebrile, nontoxic-appearing. Exam approximately 2 x 2 cm ulceration with purulent drainage. No obvious surroundi ng cellulitis crepitus or bullae. Will give broad-spectrum antibiotics as per podiatry recommendation. X-ray shows evidence of osteomyelitis . will admit the patient. During the patient's ED course after receiving just a small amount of Zosyn and topical bacitracin she began to have an anaphylactic reaction including throat scratchiness, shortness of breath, wheezing and nausea. She was given 1 dose of IM epinephrine 0.3 mg. She was given 25 mg of oral Benadryl. Symptoms resolved quickly. Zosyn was added to her allergy list. Penicillin antibiotic was changed to levofloxacin per our sepsis order set. Patient was admitted in stable condition. The patient and/or family, caregivers express understanding. The patient and/or family, caregivers agrees with the plan. Total critical care time today provided was at least 0 minutes. This excludes separately billable procedures. Critical care time (if documented) is secondary to the patient having high probability of clinically significant/life threatening deterioration in the patient's condition which required my urgent intervention. Shared decision making: I will have a discussion with the patient and or visitors regarding risk/benefits of further testing or admission. They will be made aware of of the risk/benefits inherent in this decision they will be given the opportunity to voice understanding. Lab Data Attestation: I reviewed the patient's lab results. Lab results narrative: BMP without significant Luz normalities, no anion gap, no JAMES CRP grossly elevated concerning for systemic inflammation LFTs show no evidence of hepatobiliary pathology. X-ray of the right foot was personally read by myself shows evidence of bony erosion into the head of the fifth metatarsal Labs: Laboratory Results - last 24 hr 03/01/23 03/01/23 09:56 09:56 ESR 54 H Sodium 136 Potassium 4.3 Chloride 103 Carbon Dioxide 30.0 Anion Gap 3 L BUN 23 H Creatinine 0.93 Estim Creat Clear Calc 66.51 Est GFR (MDRD) Af Amer 79 Est GFR (MDRD) Non-Af 66 BUN/Creatinine Ratio 24.7 H Glucose 204 H Calcium 8.8 Total Bilirubin 0.60 AST 37 ALT 46 Alkaline Phosphatase 107 C-React Prot Ext Range 116.00 H Total Protein 7.6 Albumin 2.8 L Globulin 4.8 H Albumin/Globulin Ratio 0.6 L Radiography Diagnostic Testing: Clinical Impression(s) from Imaging Studies Foot X-Ray 03/01/23 10:00 IMPRESSION: 1. Erosion of the head of the fifth metatarsal and the fifth toe consistent with osteomyelitis. 2. Soft tissue ulceration near the fifth metatarsal phalangeal joint. Electronically Signed: Zack Montenegro MD at 10:20 EDT , Discharge Plan Triage Chief Complaint: Wound ED Provider: Aditya Xiao Dx/Rx/DC Orders Clinical Impression: Diabetic foot ulcer, Osteomyelitis Prescriptions: No Action celecoxib 200 mg capsule 200 mg PO DAILY montelukast 10 mg tablet 10 mg PO QHS metformin 1,000 mg tablet 1,000 mg PO BID omeprazole 40 mg capsule,delayed release(DR/EC) 40 mg PO DAILY loratadine 10 mg capsule 10 mg PO DAILY cilostazol 100 mg tablet 100 mg PO BID levothyroxine 175 mcg tablet 175 mcg PO DAILY aspirin [Adult Low Dose Aspirin] 81 mg tablet,delayed release (DR/EC) 81 mg PO DAILY metoprolol succinate 200 mg tablet extended release 24 hr 200 mg PO DAILY Mounjaro 2.5 mg/0.5 mL pen injector 2.5 mg subcut QWEEK 28 Days Qty: 2 1RF Levemir FlexPen 100 unit/mL (3 mL) insulin pen 60 unit subcut DAILY Qty: 18 5RF (DME) pen needle, diabetic [BD Ultra-Fine Catalina Pen Needle] 32 gauge x 5/32 needle See Rx Instructions .Route Qty: 100 3RF Rx Instructions: daily potassium chloride 20 MEQ tablet 20 meq PO DAILY paroxetine HCl 40 MG tablet 40 mg PO DAILY pregabalin 150 MG capsule 150 mg PO TID calcium carbonate-vitamin D3 1 EACH tablet 1 ea PO DAILY ferrous sulfate [iron] 325 mg (65 mg iron) Tablet 325 mg PO DAILY albuterol sulfate [ProAir HFA] 90 mcg/actuation Hfa Aerosol Inhaler 1 inh INHALATION Q6H PRN (Reason: SOB) rosuvastatin [Crestor] 40 mg Tablet 40 mg PO DAILY Primary Care Provider: Gulshan Early Chi Referrals: Gulshan Early Chi, MD [Primary Care Provider] - Disposition Disposition: Acute Care Hospital [facility]
--- NOTE | 2023-03-01 09:31 | EX.ED.DYSGE1 ---
HPI History of Present Illness Chief Complaint: Wound [facility] Medical History Anxiety Arthritis Asthma Asthma Back pain Broken teeth Cardiology follow-up encounter Chronic steroid use CPAP (continuous positive airway pressure) dependence Depression Dermatitis Diabetes type 2, uncontrolled Dietary restriction Difficulty balancing when standing Edema Essential (primary) hypertension Fibromyalgia GERD (gastroesophageal reflux disease) Hammertoe of left foot History of pain when walking History of stress test Hypergammaglobulinemia Hyperlipemia Hypertension Hypothyroidism Iron deficiency Leg cramping Morbid obesity with BMI of 40.0-44.9, adult Multinodular thyroid Non-smoker Normal echocardiogram Osteomyelitis of toe Other specified peripheral vascular diseases PAD (peripheral artery disease) Shortness of breath Skin ulcer of right foot including toes with fat layer exposed Venous stasis dermatitis of both lower extremities Wears glasses Home Medications celecoxib 200 mg capsule 200 mg PO DAILY ARTHRITIS/INFLAMMATION 10/18/18 [History Last Taken 02/28/23] loratadine 10 mg capsule 10 mg PO DAILY ALLERGIES 10/18/18 [History Last Taken 02/28/23] metformin 1,000 mg tablet 1,000 mg PO BID DIABETES 10/18/18 [History Last Taken 02/28/23] montelukast 10 mg tablet 10 mg PO QHS ASTHMA/ALLERGIES 10/18/18 [History Last Taken 02/28/23] omeprazole 40 mg capsule,delayed release 40 mg PO DAILY ACID REFLUX 10/18/18 [History Last Taken 02/28/23] calcium carbonate 500 mg-vitamin D3 10 mcg (400 unit) tablet 1 ea PO DAILY SUPPLEMENT 10/29/19 [History Last Taken 02/28/23] paroxetine HCl 40 mg tablet 40 mg PO DAILY DEPRESSION 10/29/19 [History Last Taken 02/28/23] potassium chloride 20 mEq tablet,extended release(part/cryst) 20 meq PO DAILY SUPPLEMENT 10/29/19 [History Last Taken 02/28/23] pregabalin 150 mg capsule 150 mg PO TID NERVE PAIN 10/29/19 [History Last Taken 02/28/23] aspirin 81 mg tablet,delayed release (Adult Low Dose Aspirin) 81 mg PO DAILY HEART HEALTH 07/21/20 [History Last Taken 02/28/23] cilostazol 100 mg tablet 100 mg PO DAILY CHOLESTEROL 07/21/20 [History Last Taken 02/28/23] levothyroxine 175 mcg tablet 175 mcg PO DAILY THYROID 07/21/20 [History Last Taken 02/28/23] metoprolol succinate 200 mg tablet,extended release 24 hr 200 mg PO DAILY BLOOD PRESSURE 07/21/20 [History Last Taken 02/28/23] albuterol sulfate 90 mcg/actuation aerosol inhaler (ProAir HFA) 1 inh inhalation Q6H PRN SHORTNESS OF BREATH 08/26/22 [History Last Taken 2 Days Ago ~02/27/23] ferrous sulfate 325 mg (65 mg iron) tablet (iron) 325 mg PO DAILY ANEMIA 08/26/22 [History Last Taken 02/28/23] rosuvastatin 40 mg tablet (Crestor) 40 mg PO DAILY CHOLESTEROL 08/26/22 [History Last Taken 02/28/23] pen needle, diabetic 32 gauge x 5/32 (BD Ultra-Fine Catalina Pen Needle) #100 ea 02/13/23 [Rx Last Taken Unknown] dapagliflozin propanediol 10 mg tablet (Farxiga) 10 mg PO DAILY DIABETES 03/01/23 [History Last Taken 02/28/23] glimepiride 4 mg tablet 4 mg PO BID DIABETES 03/01/23 [History Last Taken 02/28/23] insulin detemir U-100 100 unit/mL (3 mL) subcutaneous pen (Levemir FlexPen) 55 unit subcut DAILY DIABETES 03/01/23 [History Last Taken 02/28/23] ipratropium bromide 42 mcg (0.06 %) nasal spray 2 spray intranasal DAILY NASAL DRAINAGE 03/01/23 [History Last Taken 02/28/23] losartan 100 mg tablet 100 mg PO DAILY BLOOD PRESSURE 03/01/23 [History Last Taken 02/28/23] multivitamin 1 tab PO DAILY HEALTH MAINTENANCE 03/01/23 [History Last Taken 02/28/23] tirzepatide 2.5 mg/0.5 mL subcutaneous pen injector (Mounjaro) 2.5 mg subcut WE DIABETES 03/01/23 [History Last Taken 02/22/23] trazodone 100 mg tablet 200 mg PO QHS SLEEP 03/01/23 [History Last Taken 02/28/23] vitamin B complex 1 cap PO DAILY SUPPLEMENT 03/01/23 [History Last Taken 02/28/23] Allergy/AdvReac Type Severity Reaction Status Date / Time piperacillin [From Zosyn] Allergy Severe Anaphylaxis Verified 03/01/23 10:39 tazobactam [From Zosyn] Allergy Severe Anaphylaxis Verified 03/01/23 10:39 latex Allergy Rash Verified 03/01/23 09:27 tetanus and diphtheria Allergy Anaphylaxis Verified 03/01/23 09:27 toxoids [Tetanus&Diphtheria Toxoid] bactrim Allergy Unknown Anaphylaxis Uncoded 03/01/23 13:23 flea medicine Allergy Anaphylaxis, Uncoded 03/01/23 09:27 Diarrhea Family History Mother Diabetes Dementia Father Diabetes Myocardial infarction Surgical History H/O amputation of lesser toe (05/05/17) H/O arthroscopic knee surgery (11/2019) History of cholecystectomy History of nasal septoplasty History of thyroidectomy Hx of total knee arthroplasty Social History Smoking Status: Never smoker alcohol intake: current alcohol intake frequency: holidays/special occasions only EXAM Physical Exam Const Vital Signs: 03/01/23 09:24 03/01/23 10:36 03/01/23 10:55 Temperature 97.6 F L 98.1 F Temperature Source Temporal Oral Pulse Rate 74 93 88 Respiratory Rate 16 31 H 20 H Blood Pressure 122/77 H 101/89 H 97/53 L Blood Pressure Mean 92 93 67 Pulse Ox 100 79 92 Oxygen Delivery Method Room Air Room Air Nasal Cannula Oxygen Flow Rate (L/min) 5 03/01/23 11:10 03/01/23 11:00 Temperature 98 F Temperature Source Temporal Pulse Rate 85 87 Respiratory Rate 22 H 19 H Blood Pressure 108/69 112/59 L Blood Pressure Mean 82 76 Pulse Ox 95 98 Oxygen Delivery Method Nasal Cannula Nasal Cannula Oxygen Flow Rate (L/min) 3 3 MDM MDM MDM Narrative Medical decision making narrative: HISTORY OF PRESENT ILLNESS: 57-year-old female here with concern for diabetic foot infection. She was sent in by her bean dumper Dr. Navarro who requested patient be admitted to medicine service with a podiatry consult. He further requested placing the patient on broad-spectrum antibiotics. The patient states REVIEW OF SYSTEMS: Pertinent positives: Wound Pertinent negatives: PHYSICAL EXAM: Nursing triage notes reviewed, Vital signs reviewed Constitutional: please see mdm HENT: MMM Eyes: Pupils equal round and reactive to light, Extraocular muscles intact Neck: No stridor, no JVD, full neck ROM Lungs: Clear to auscultation, No wheezing or rales. No increased work of breathing, no conversational dyspnea, no accessory muscle use, no nasal flaring. No respiratory distress noted Heart: Regular rate and rhythm, No murmurs, No rubs and No gallops, 2+ distal pulses (radial, femoral, posterior tibial) in all extremities Abdomen: Soft, there is no tenderness, rigidity, rebound or guarding, no obvious peritoneal signs, no palpable pulsatile abdominal masses, no auscultated abdominal bruit : No CVAT Extremities: No edema Neuro: Intact sensation L1-S1 dermatomal distributions. Intact 5/5 strength in hip flexion (T12-L3). Knee extension (L2-L4). Ankle dorsiflexion (L4-L5). Ankle plantar flexion (S1). Great toe extension (L5). 2+ patellar and Achilles DTRs. Skin: 2 x 2 cm ulceration noted to the lateral surface of the fifth metatarsal, fifth digit MEDICAL DECISION MAKING: Chief Complaint: Wound External records reviewed: History of cellulitis Factors affecting care: Type 2 diabetes Social determinants of health: Current alcohol History obtained from others: Consults: Internal medicine, podiatry ALL IMAGES (IF OBTAINED) HAVE BEEN PERSONALLY REVIEWED AND INTERPRETED BY MYSELF. [facility] Narrative: The patient was hemodynamically stable, afebrile, nontoxic-appearing. Exam approximately 2 x 2 cm ulceration with purulent drainage. No obvious surrounding cellulitis crepitus or bullae. Will give broad-spectrum antibiotics as per podiatry recommendation. X-ray shows evidence of osteomyelitis . will admit the patient. During the patient's ED course after receiving just a small amount of Zosyn and topical bacitracin she began to have an anaphylactic reaction including throat scratchiness, shortness of breath, wheezing and nausea. She was given 1 dose of IM epinephrine 0.3 mg. She was given 25 mg of oral Benadryl. Symptoms resolved quickly. Zosyn was added to her allergy list. Penicillin antibiotic was changed to levofloxacin per our sepsis order set. Patient was admitted in stable condition. The patient and/or family, caregivers express understanding. The patient and/or family, caregivers agrees with the plan. Total critical care time today provided was at least 0 minutes. This excludes separately billable procedures. Critical care time (if documented) is secondary to the patient having high probability of clinically significant/life threatening deterioration in the patient's condition which required my urgent intervention. Shared decision making: I will have a discussion with the patient and or visitors regarding risk/benefits of further testing or admission. They will be made aware of of the risk/benefits inherent in this decision they will be given the opportunity to voice understanding. Lab Data Attestation: I reviewed the patient's lab results. Lab results narrative: BMP without significant Todd normalities, no anion gap, no JAMES CRP grossly elevated concerning for systemic inflammation LFTs show no evidence of hepatobiliary pathology. X-ray of the right foot was personally read by myself shows evidence of bony erosion into the head of the fifth metatarsal Labs: Laboratory Results - last 24 hr 03/01/23 03/01/23 09:56 09:56 WBC 8.5 RBC 3.93 L Hgb 10.9 L Hct 35.4 L MCV 90.1 MCH 27.7 MCHC 30.8 L RDW Std Deviation 46.1 H RDW Coeff of Kami 13.9 Plt Count 313 MPV 9.4 Immature Gran % (Auto) 0.400 Neut % (Auto) 75.8 H Lymph % (Auto) 15.2 L [place] % (Auto) 7.8 Eos % (Auto) 0.6 Baso % (Auto) 0.2 Absolute Neuts (auto) 6.4 Absolute Lymphs (auto) 1.29 Nucleated RBC % 0 ESR 54 H Sodium 136 Potassium 4.3 Chloride 103 Carbon Dioxide 30.0 Anion Gap 3 L BUN 23 H Creatinine 0.93 Estim Creat Clear Calc 66.51 Est GFR (MDRD) Af Amer 79 Est GFR (MDRD) Non-Af 66 BUN/Creatinine Ratio 24.7 H Glucose 204 H Calcium 8.8 Total Bilirubin 0.60 AST 37 ALT 46 Alkaline Phosphatase 107 C-React Prot Ext Range 116.00 H Total Protein 7.6 Albumin 2.8 L Globulin 4.8 H Albumin/Globulin Ratio 0.6 L Radiography Diagnostic Testing: Clinical Impression(s) from Imaging Studies Foot X-Ray 03/01/23 10:00 IMPRESSION: 1. Erosion of the head of the fifth metatarsal and the fifth toe consistent with osteomyelitis. 2. Soft tissue ulceration near the fifth metatarsal phalangeal joint. Electronically Signed: Zack Montenegro MD at 10:20 EDT , Discharge Plan Dx/Rx/DC Orders Clinical Impression: Diabetic foot ulcer, Osteomyelitis Disposition Disposition: Acute Care [facility] Discharge Date/Time: 03/01/23 12:05
--- NOTE | 2023-03-01 10:00 | RAD_ITS ---
EXAM: XR RIGHT FOOT COMPLETE, 3 OR MORE VIEWS CLINICAL INDICATION: right 5th digit diabetic foot ulcer r/o osteo TECHNIQUE: Frontal, lateral and oblique views of the right foot. COMPARISON: No relevant prior studies available. FINDINGS: BONES/JOINTS: Erosion of the head of the fifth metatarsal and the fifth toe consistent with osteomyelitis. No acute fracture. No subluxation. Normal alignment. Preservation of the joint space SOFT TISSUES: Soft tissue ulceration near the fifth metatarsal phalangeal joint. No soft tissue swelling or gas. No radiopaque foreign body. RAD/Foot min 3 Views IMPRESSION: 1. Erosion of the head of the fifth metatarsal and the fifth toe consistent with osteomyelitis. 2. Soft tissue ulceration near the fifth metatarsal phalangeal joint. Electronically Signed: Zack Montenegro MD at 10:20 EDT ,
[2023-03-01 10:31] LABS: ALB/GLOB Ratio 0.6 RATIO (0.9-2.4); AST(SGOT) 37 U/L (15-37); Alanine Aminotransfer ALT/SGPT 46 U/L (13-56); Albumin, Serum 2.8 g/dL (3.2-5.0); Alkaline Phosphatase 107 U/L (45-117); Anion Gap 3 (5-15); BUN 23 mg/dL (7-18); BUN/Creat Ratio 24.7 RATIO (10-20); Calcium,Total 8.8 mg/dL (8.5-10.1); Chloride 103 mmol/L (98-107); Creatinine, Serum 0.93 mg/dL (0.55-1.02); EST Glomerular Filtration Rate 66 mL/min (>60); Est Glom Filt Rate - Afr Amer 79 mL/min (>60); Estimated Creatinine Clearance 66.51 ml/min; Globulin 4.8 g/dL (2.2-4.2); Glucose 204 mg/dL (74-106); Potassium 4.3 mmol/L (3.5-5.1); Protein, Total 7.6 g/dL (6.4-8.2); Sodium Level 136 mmol/L (136-145)
[2023-03-01] MEDS: DiphenhydrAMINE 25 MG Capsule PO (10:33)
[2023-03-01] MEDS: Epi Pen (EQUIV) 0.3 MG Syringe IM (10:33)
[2023-03-01] MEDS: Ondansetron 4 MG/2 ML Vial IV (10:33)
[2023-03-01 10:43] LABS: Erythrocyte Sedimentation Rate 54 mm/hr (0-30)
[2023-03-01 10:50] LABS: Absolute Lymphocyte Count 1.29 X10^3/uL (0.83-4.51); Absolute Neutrophil Count 6.4 X10^3/uL (2.0-7.7); Basophil# 0.02 X10^3/uL; Basophil% 0.2 % (0-1); Eosinophil# 0.05 X10^3/uL; Eosinophils% 0.6 % (0-5); Hematocrit 35.4 % (37-47); Hemoglobin 10.9 g/dL (12.0-15.0); Lymphocyte # 1.29 X10^3/ul (0.83-4.51); Lymphocyte % 15.2 % (19-41); Mean Corp Hgb Conc 30.8 g/dL (32-36); Mean Corpuscular Hgb 27.7 pg (27.0-32.0); Mean Corpuscular Volume 90.1 fL (81-99); Mean Platelet Vol. 9.4 fl (6.2-12.0); Monocyte# 0.66 X10^3/uL; Monocyte% 7.8 % (0-10); NRBC Flagged by Analyzer 0 % (0-5); Neutrophil # 6.44 X10^3/uL (2.7-7.7); Neutrophil % 75.8 % (47-70); Platelet Count 313 K/mm3 (150-450); RBC Distribution Width CV 13.9 % (11.6-14.6); RBC Distribution Width SD 46.1 fl (35.1-43.9); Red Blood Count 3.93 M/mm3 (4.2-5.4); White Blood Count 8.5 K/mm3 (4.4-11.0)
[2023-03-01] MEDS: DiphenhydrAMINE 50 MG/ML Syringe 25 MG IV (10:52)
[2023-03-01] MEDS: 0.9% Normal Saline 1,000 ML 999 ML IV (10:55)
--- NOTE | 2023-03-01 11:37 | ED.RN ---
VANCOMYCIN STARTED LATE PER ED MD AFTER REACTION TO ZOSYN.
--- NOTE | 2023-03-01 13:34 | WOUNDNOTE ---
wound photo: right lateral foot
--- NOTE | 2023-03-01 13:34 | WOUNDNOTE ---
wound photo: right foot
--- NOTE | 2023-03-01 13:36 | PCM.CONS.GEN ---
Assessment & Plan Assessment/Plan (1) Diabetic foot ulcer: (2) Osteomyelitis: PLAN: R foot osteo seen on xray. Dr. Navarro consulted. Wound cx pending. Wound cx from 01/2023 with mssa and enterobacter. Will check bcx x2. May need MRI. Had reaction with zosyn in ED. Will cover with vanc/cefepime/flagyl for now. Will follow, thank you HPI Consult Data Date of Consult: 03/01/23 HPI Narrative Reason for Consultation: osteo HPI Narrative: REMI RTEVINO, is a 57 F with DM (last A1c 6.4), PAD, presented with one week worsening R plantar wound, has been seeing Dr. Navarro. New redness, drainage, foul odor. No recent abx. One day h/o some chills. Came to ED, given vanc/zosyn, but developed some flushing, n/v/d with zosyn; denies any trouble breathing. Abx changed to vanc/levaquin, admitted. Full ROS performed and neg except as noted above. [facility] Medical History Anxiety Arthritis Asthma Asthma Back pain Broken teeth Cardiology follow-up encounter Chronic steroid use CPAP (continuous positive airway pressure) dependence Depression Dermatitis Diabetes type 2, uncontrolled Dietary restriction Difficulty balancing when standing Edema Essential (primary) hypertension Fibromyalgia GERD (gastroesophageal reflux disease) Hammertoe of left foot History of pain when walking History of stress test Hypergammaglobulinemia Hyperlipemia Hypertension Hypothyroidism Iron deficiency Leg cramping Morbid obesity with BMI of 40.0-44.9, adult Multinodular thyroid Non-smoker Normal echocardiogram Osteomyelitis of toe Other specified peripheral vascular diseases PAD (peripheral artery disease) Shortness of breath Skin ulcer of right foot including toes with fat layer exposed Venous stasis dermatitis of both lower extremities Wears glasses Home Medications celecoxib 200 mg capsule 200 mg PO DAILY ARTHRITIS/INFLAMMATION 10/18/18 [History Last Taken 02/28/23] loratadine 10 mg capsule 10 mg PO DAILY ALLERGIES 10/18/18 [History Last Taken 02/28/23] metformin 1,000 mg tablet 1,000 mg PO BID DIABETES 10/18/18 [History Last Taken 02/28/23] montelukast 10 mg tablet 10 mg PO QHS ASTHMA/ALLERGIES 10/18/18 [History Last Taken 02/28/23] omeprazole 40 mg capsule,delayed release 40 mg PO DAILY ACID REFLUX 10/18/18 [History Last Taken 02/28/23] calcium carbonate 500 mg-vitamin D3 10 mcg (400 unit) tablet 1 ea PO DAILY SUPPLEMENT 10/29/19 [History Last Taken 02/28/23] paroxetine HCl 40 mg tablet 40 mg PO DAILY DEPRESSION 10/29/19 [History Last Taken 02/28/23] potassium chloride 20 mEq tablet,extended release(part/cryst) 20 meq PO DAILY SUPPLEMENT 10/29/19 [History Last Taken 02/28/23] pregabalin 150 mg capsule 150 mg PO TID NERVE PAIN 10/29/19 [History Last Taken 02/28/23] aspirin 81 mg tablet,delayed release (Adult Low Dose Aspirin) 81 mg PO DAILY HEART HEALTH 07/21/20 [History Last Taken 02/28/23] cilostazol 100 mg tablet 100 mg PO DAILY CHOLESTEROL 07/21/20 [History Last Taken 02/28/23] levothyroxine 175 mcg tablet 175 mcg PO DAILY THYROID 07/21/20 [History Last Taken 02/28/23] metoprolol succinate 200 mg tablet,extended release 24 hr 200 mg PO DAILY BLOOD PRESSURE 07/21/20 [History Last Taken 02/28/23] albuterol sulfate 90 mcg/actuation aerosol inhaler (ProAir HFA) 1 inh inhalation Q6H PRN SHORTNESS OF BREATH 08/26/22 [History Last Taken 2 Days Ago ~02/27/23] ferrous sulfate 325 mg (65 mg iron) tablet (iron) 325 mg PO DAILY ANEMIA 08/26/22 [History Last Taken 02/28/23] rosuvastatin 40 mg tablet (Crestor) 40 mg PO DAILY CHOLESTEROL 08/26/22 [History Last Taken 02/28/23] pen needle, diabetic 32 gauge x 5/32 (BD Ultra-Fine Catalina Pen Needle) #100 ea 02/13/23 [Rx Last Taken Unknown] dapagliflozin propanediol 10 mg tablet (Farxiga) 10 mg PO DAILY DIABETES 03/01/23 [History Last Taken 02/28/23] glimepiride 4 mg tablet 4 mg PO BID DIABETES 03/01/23 [History Last Taken 02/28/23] insulin detemir U-100 100 unit/mL (3 mL) subcutaneous pen (Levemir FlexPen) 55 unit subcut DAILY DIABETES 03/01/23 [History Last Taken 02/28/23] ipratropium bromide 42 mcg (0.06 %) nasal spray 2 spray intranasal DAILY NASAL DRAINAGE 03/01/23 [History Last Taken 02/28/23] losartan 100 mg tablet 100 mg PO DAILY BLOOD PRESSURE 03/01/23 [History Last Taken 02/28/23] multivitamin 1 tab PO DAILY HEALTH MAINTENANCE 03/01/23 [History Last Taken 02/28/23] tirzepatide 2.5 mg/0.5 mL subcutaneous pen injector (Mounjaro) 2.5 mg subcut WE DIABETES 03/01/23 [History Last Taken 02/22/23] trazodone 100 mg tablet 200 mg PO QHS SLEEP 03/01/23 [History Last Taken 02/28/23] vitamin B complex 1 cap PO DAILY SUPPLEMENT 03/01/23 [History Last Taken 02/28/23] Allergy/AdvReac Type Severity Reaction Status Date / Time piperacillin [From Zosyn] Allergy Severe Anaphylaxis Verified 03/01/23 10:39 tazobactam [From Zosyn] Allergy Severe Anaphylaxis Verified 03/01/23 10:39 sulfamethoxazole Allergy Unknown Anaphylaxis Verified 03/01/23 13:34 [From Bactrim] trimethoprim [From Bactrim] Allergy Unknown Anaphylaxis Verified 03/01/23 13:34 latex Allergy Rash Verified 03/01/23 09:27 tetanus and diphtheria Allergy Anaphylaxis Verified 03/01/23 09:27 toxoids [Tetanus&Diphtheria Toxoid] flea medicine Allergy Anaphylaxis, Uncoded 03/01/23 09:27 Diarrhea Family History Mother Diabetes Dementia Father Diabetes Myocardial infarction Surgical History H/O amputation of lesser toe (05/05/17) H/O arthroscopic knee surgery (11/2019) History of cholecystectomy History of nasal septoplasty History of thyroidectomy Hx of total knee arthroplasty Social History Smoking Status: Never smoker alcohol intake: current alcohol intake frequency: holidays/special occasions only Physical Exam Const alert, oriented x3 and no apparent distress General Appearance: cooperative Eyes PERRL and EOMs intact bilaterally Neck supple and No nodes Resp normal air movement and clear to auscultation bilaterally Cardio regular rate and regular rhythm GI soft to palpation, non-tender and non-distended Extremity General Extremity: Negative for edema Skin Skin Narrative: L plantar wound under 5th met with some redness, foul smelling drainage Neuro CN's II-XII intact bilaterally Lab / Micro Data Attestation: I reviewed the patient's lab results. Result Diagrams: 03/01/23 09:56 03/01/23 09:56 Labs: Laboratory Results - last 24 hr 03/01/23 09:56: WBC 8.5, RBC 3.93 L, Hgb 10.9 L, Hct 35.4 L, MCV 90.1, MCH 27.7, MCHC 30.8 L, RDW Std Deviation 46.1 H, RDW Coeff of Kami 13.9, Plt Count 313, MPV 9.4, Immature Gran % (Auto) 0.400, Neut % (Auto) 75.8 H, Lymph % (Auto) 15.2 L, [place] % (Auto) 7.8, Eos % (Auto) 0.6, Baso % (Auto) 0.2, Absolute Neuts (auto) 6.4, Absolute Lymphs (auto) 1.29, Nucleated RBC % 0, ESR 54 H 03/01/23 09:56: Sodium 136, Potassium 4.3, Chloride 103, Carbon Dioxide 30.0, Anion Gap 3 L, BUN 23 H, Creatinine 0.93, Estim Creat Clear Calc 66.51, Est GFR (MDRD) Af Amer 79, Est GFR (MDRD) Non-Af 66, BUN/Creatinine Ratio 24.7 H, Glucose 204 H, Calcium 8.8, Total Bilirubin 0.60, AST 37, ALT 46, Alkaline Phosphatase 107, C-React Prot Ext Range 116.00 H, Total Protein 7.6, Albumin 2.8 L, Globulin 4.8 H, Albumin/Globulin Ratio 0.6 L Radiology Impression Foot X-Ray 03/01/23 10:00 IMPRESSION: 1. Erosion of the head of the fifth metatarsal and the fifth toe consistent with osteomyelitis. 2. Soft tissue ulceration near the fifth metatarsal phalangeal joint. Electronically Signed: Zack Montenegro MD at 10:20 EDT ,
--- NOTE | 2023-03-01 13:48 | PHA.PHARE_ITS ---
Consult Pharmacy has been consulted to manage selected antiobiotic: Vancomycin Type of Consult: New start Suspected Infection: Osteomyelitis Prior Doses of Antibiotics Received/Current Regimen: received vanc 1500mg IV x1 in E.D. starting at 11:29 today Labs: Sodium 136 mmol/L (136-145) 03/01/23 09:56 Potassium 4.3 mmol/L (3.5-5.1) 03/01/23 09:56 Chloride 103 mmol/L (98-107) 03/01/23 09:56 Carbon Dioxide 30.0 mmol/L (21.0-32.0) 03/01/23 09:56 Anion Gap 3 (5-15) L 03/01/23 09:56 BUN 23 mg/dL (7-18) H 03/01/23 09:56 Creatinine 0.93 mg/dL (0.55-1.02) 03/01/23 09:56 Est GFR (MDRD) Af Amer 79 mL/min (>60) 03/01/23 09:56 Est GFR (MDRD) Non-Af 66 mL/min (>60) 03/01/23 09:56 BUN/Creatinine Ratio 24.7 RATIO (10-20) H 03/01/23 09:56 Glucose 204 mg/dL (74-106) H 03/01/23 09:56 Weight used for dosin.8 kg Estimated Creatinine Clearance: 86 ml/min Goal Trough: 15-20 mcg/mL Pharmacy Plan for Drug Dosing: Starting 12 hours after the dose in E.D., continue with vanc 2000mg IV q12h per [facility] dosing protocol. Will check a trough before the 4th total dose. The patient's CrCl of 86 ml/min was calculated using an adjusted body weight. Pharmacy Service will continue to monitor and adjust dosing as required. Follow-Up Labs: Trough Vancomycin Labs to be done on [date and time ordered]: 03/02/23 22:30
[2023-03-01] MEDS: metroNIDAZOLE 500 MG Tablet PO ×2 (14:14→21:08)
[2023-03-01] MEDS: Pregabalin 75 MG Capsule 150 MG PO ×2 (14:14→21:11)
--- NOTE | 2023-03-01 15:21 | MRI_ITS ---
EXAM: MR RIGHT LOWER EXTREMITY WITHOUT INTRAVENOUS CONTRAST, FOOT CLINICAL INDICATION: osteomyelitis 5th metatarsal TECHNIQUE: Multiplanar and multisequence MR images of the right foot without intravenous contrast. COMPARISON: Foot x-ray March 01, 2023 FINDINGS: Bones/Joints: Abnormal signal involving the fifth digit including all phalanges as well as the fifth metatarsal head/neck. No other concerning bone marrow signal alterations. Significant motion artifact limits assessment. Soft tissues: Diffuse subcutaneous edema more prominent dorsally is nonspecific. No phlegmon or abscess. Tendons and plantar aponeurosis are unremarkable as imaged. MRI/Lower Ext/No Jt/w/o IMPRESSION: 1. Fifth digit osteomyelitis as above. 2. No soft tissue abscess or phlegmon. Electronically Signed: Oneil Botello MD at 1:13 EDT ,
--- NOTE | 2023-03-01 15:22 | CON.PCM_ITS ---
Assessment & Plan Assessment/Plan (1) Cellulitis of right lower limb: (2) Diabetic foot ulcer: (3) Osteomyelitis: (4) Neuropathy: (5) Type 2 diabetes mellitus with foot ulcer: PLAN: Plan Patient has been admitted. She has been started on IV antibiotics and Infectious Disease is following. A culture has been obtained and is pending. MRI was ordered for further workup. Will likely plan for OR debridement, however would like to see MRI first. Wound care: Betadine soln, gauze, kerlix and nirav - change daily. No weightbearing right foot. LEAS for further evaluation of artieral flow. Hospital medicine following patient as well. Podiatry will continue to follow patient. HPI Consult Data Date of Consult: 03/01/23 HPI Narrative HPI Narrative: REMI TREVINO, is a 57 F who was sent from my office for right foot infection with concern for 5th metatarsal osteomyelitis. She has been followed for wound which was healing, however she missed last appointment in office and she relates last week foot turned red, swollen and there is bad oder from it. On exam she was sent to ER to be admitted and for further work up and management. [facility] Medical History Anxiety Arthritis Asthma Asthma Back pain Broken teeth Cardiology follow-up encounter Chronic steroid use CPAP (continuous positive airway pressure) dependence Depression Dermatitis Diabetes type 2, uncontrolled Dietary restriction Difficulty balancing when standing Edema Essential (primary) hypertension Fibromyalgia GERD (gastroesophageal reflux disease) Hammertoe of left foot History of pain when walking History of stress test Hypergammaglobulinemia Hyperlipemia Hypertension Hypothyroidism Iron deficiency Leg cramping Morbid obesity with BMI of 40.0-44.9, adult Multinodular thyroid Non-smoker Normal echocardiogram Osteomyelitis of toe Other specified peripheral vascular diseases PAD (peripheral artery disease) Shortness of breath Skin ulcer of right foot including toes with fat layer exposed Venous stasis dermatitis of both lower extremities Wears glasses Home Medications celecoxib 200 mg capsule 200 mg PO DAILY ARTHRITIS/INFLAMMATION 10/18/18 [History Last Taken 02/28/23] loratadine 10 mg capsule 10 mg PO DAILY ALLERGIES 10/18/18 [History Last Taken 02/28/23] metformin 1,000 mg tablet 1,000 mg PO BID DIABETES 10/18/18 [History Last Taken 02/28/23] montelukast 10 mg tablet 10 mg PO QHS ASTHMA/ALLERGIES 10/18/18 [History Last Taken 02/28/23] omeprazole 40 mg capsule,delayed release 40 mg PO DAILY ACID REFLUX 10/18/18 [History Last Taken 02/28/23] calcium carbonate 500 mg-vitamin D3 10 mcg (400 unit) tablet 1 ea PO DAILY SUPPLEMENT 10/29/19 [History Last Taken 02/28/23] paroxetine HCl 40 mg tablet 40 mg PO DAILY DEPRESSION 10/29/19 [History Last Taken 02/28/23] potassium chloride 20 mEq tablet,extended release(part/cryst) 20 meq PO DAILY SUPPLEMENT 10/29/19 [History Last Taken 02/28/23] pregabalin 150 mg capsule 150 mg PO TID NERVE PAIN 10/29/19 [History Last Taken 02/28/23] aspirin 81 mg tablet,delayed release (Adult Low Dose Aspirin) 81 mg PO DAILY HEART HEALTH 07/21/20 [History Last Taken 02/28/23] cilostazol 100 mg tablet 100 mg PO DAILY CHOLESTEROL 07/21/20 [History Last Taken 02/28/23] levothyroxine 175 mcg tablet 175 mcg PO DAILY THYROID 07/21/20 [History Last Taken 02/28/23] metoprolol succinate 200 mg tablet,extended release 24 hr 200 mg PO DAILY BLOOD PRESSURE 07/21/20 [History Last Taken 02/28/23] albuterol sulfate 90 mcg/actuation aerosol inhaler (ProAir HFA) 1 inh inhalation Q6H PRN SHORTNESS OF BREATH 08/26/22 [History Last Taken 2 Days Ago ~02/27/23] ferrous sulfate 325 mg (65 mg iron) tablet (iron) 325 mg PO DAILY ANEMIA 08/26/22 [History Last Taken 02/28/23] rosuvastatin 40 mg tablet (Crestor) 40 mg PO DAILY CHOLESTEROL 08/26/22 [History Last Taken 02/28/23] pen needle, diabetic 32 gauge x 5/32 (BD Ultra-Fine Catalina Pen Needle) #100 ea 02/13/23 [Rx Last Taken Unknown] dapagliflozin propanediol 10 mg tablet (Farxiga) 10 mg PO DAILY DIABETES 03/01/23 [History Last Taken 02/28/23] glimepiride 4 mg tablet 4 mg PO BID DIABETES 03/01/23 [History Last Taken 02/28/23] insulin detemir U-100 100 unit/mL (3 mL) subcutaneous pen (Levemir FlexPen) 55 unit subcut DAILY DIABETES 03/01/23 [History Last Taken 02/28/23] ipratropium bromide 42 mcg (0.06 %) nasal spray 2 spray intranasal DAILY NASAL DRAINAGE 03/01/23 [History Last Taken 02/28/23] losartan 100 mg tablet 100 mg PO DAILY BLOOD PRESSURE 03/01/23 [History Last Taken 02/28/23] multivitamin 1 tab PO DAILY HEALTH MAINTENANCE 03/01/23 [History Last Taken 02/28/23] tirzepatide 2.5 mg/0.5 mL subcutaneous pen injector (Mounjaro) 2.5 mg subcut WE DIABETES 03/01/23 [History Last Taken 02/22/23] trazodone 100 mg tablet 200 mg PO QHS SLEEP 03/01/23 [History Last Taken 02/28/23] vitamin B complex 1 cap PO DAILY SUPPLEMENT 03/01/23 [History Last Taken 02/28/23] Allergy/AdvReac Type Severity Reaction Status Date / Time piperacillin [From Zosyn] Allergy Severe Anaphylaxis Verified 03/01/23 10:39 tazobactam [From Zosyn] Allergy Severe Anaphylaxis Verified 03/01/23 10:39 sulfamethoxazole Allergy Unknown Anaphylaxis Verified 03/01/23 13:34 [From Bactrim] trimethoprim [From Bactrim] Allergy Unknown Anaphylaxis Verified 03/01/23 13:34 latex Allergy Rash Verified 03/01/23 09:27 tetanus and diphtheria Allergy Anaphylaxis Verified 03/01/23 09:27 toxoids [Tetanus&Diphtheria Toxoid] flea medicine Allergy Anaphylaxis, Uncoded 03/01/23 09:27 Diarrhea Family History Mother Diabetes Dementia Father Diabetes Myocardial infarction Surgical History H/O amputation of lesser toe (05/05/17) H/O arthroscopic knee surgery (11/2019) History of cholecystectomy History of nasal septoplasty History of thyroidectomy Hx of total knee arthroplasty Social History Smoking Status: Never smoker alcohol intake: current alcohol intake frequency: holidays/special occasions on ly Physical Exam Narrative per exam in office this morning there was noted to be cellulitis to the right foot, there was noted to be open wound to the lateral 5th met head right foot down to nonviable fascia layer, there was probe to bone to the 5th metatarsal head, there was significant maloder present, no visible abscess or marita gangrene, no evidence of acute ischemia noted. Lab / Micro Data Result Diagrams: 03/01/23 09:56 03/01/23 09:56 Labs: Laboratory Results - last 24 hr 03/01/23 09:56: WBC 8.5, RBC 3.93 L, Hgb 10.9 L, Hct 35.4 L, MCV 90.1, MCH 27.7, MCHC 30.8 L, RDW Std Deviation 46.1 H, RDW Coeff of Kami 13.9, Plt Count 313, MPV 9.4, Immature Gran % (Auto) 0.400, Neut % (Auto) 75.8 H, Lymph % (Auto) 15.2 L, [place] % (Auto) 7.8, Eos % (Auto) 0.6, Baso % (Auto) 0.2, Absolute Neuts (auto) 6.4, Absolute Lymphs (auto) 1.29, Nucleated RBC % 0, ESR 54 H 03/01/23 09:56: Sodium 136, Potassium 4.3, Chloride 103, Carbon Dioxide 30.0, Anion Gap 3 L, BUN 23 H, Creatinine 0.93, Estim Creat Clear Calc 66.51, Est GFR (MDRD) Af Amer 79, Est GFR (MDRD) Non-Af 66, BUN/Creatinine Ratio 24.7 H, Glucose 204 H, Calcium 8.8, Total Bilirubin 0.60, AST 37, ALT 46, Alkaline Phosphatase 107, C-React Prot Ext Range 116.00 H, Total Protein 7.6, Albumin 2.8 L, Globulin 4.8 H, Albumin/Globulin Ratio 0.6 L Radiology Impression Foot X-Ray 03/01/23 10:00 IMPRESSION: 1. Erosion of the head of the fifth metatarsal and the fifth toe consistent with osteomyelitis. 2. Soft tissue ulceration near the fifth metatarsal phalangeal joint. Electronically Signed: Zack Montenegro MD at 10:20 EDT ,
--- NOTE | 2023-03-01 15:27 | ART_ITS ---
Reason For Study: Right lower extremity ulcer Procedure A bilateral lower extremity continuous wave Doppler with analog waveform analysis,segmental pressures,and ankle brachial indexes without exercise. Left Segmental Pressures Left brachial= 117mmHg. Left posterior tibial artery = 131mmHg. Left dorsalis pedis artery = 126mmHg. The left dorsalis pedis waveforms are triphasic. The left posterior tibial artery waveforms are triphasic. Right Segmental Pressures Right brachial= 120mmHg. Right posterior tibial artery = 136mmHg. Right dorsalis pedis artery = 131mmHg. Right digit = 87 mmHg. The right dorsalis pedis waveforms are triphasic. The right posterior tibial artery waveforms are triphasic. Indices The right ankle brachial index by the dorsalis pedis is 1.09. The right ankle brachial index by the posterior tibial artery is 1.13. The right digital-brachial index is 0.73. The left ankle brachial index by the dorsalis pedis is 1.05. The left ankle brachial index by the posterior tibial artery is 1.09. VL/Lower Ext Art Exam w/o Exercis Interpretation Summary Right HIMA 1.13, normal. Doppler/PVR waveforms of the right leg normal at rest. TBI diminished, pedal/digit disease vs spasm Left HIMA 1.09, normal. Doppler/PVR waveforms of the left leg normal at rest. Ordering Physician: Tereso Navarro Referring Physician: Gulshan Early Chi Performed By: Krystyna Rahman RVT
--- NOTE | 2023-03-01 15:38 | PCM.HP.STD ---
HPI - General General Date of Admission: 03/01/23 HPI Narrative REMI TREVINO, is a 57 F who presents to the hospital with a right foot osteo. She has a history of diabetes and was following up with podiatry secondary to a right foot wound that has since progressed. She went to her financial planning adviser office today and based on the redness and drainage he recommended presenting to the emergency room for admission as well as IV antibiotics and possible debridement. In the ER x-ray demonstrated right foot osteo, she does not have a leukocytosis and she is afebrile. Unfortunately, she was started on Zosyn and had what appeared to the ED physician to be an anaphylactic reaction and she was treated appropriately with epinephrine. She never lost her airway and is completely recovered. [facility] Medical History Anxiety Arthritis Asthma Asthma Back pain Broken teeth Cardiology follow-up encounter Chronic steroid use CPAP (continuous positive airway pressure) dependence Depression Dermatitis Diabetes type 2, uncontrolled Dietary restriction Difficulty balancing when standing Edema Essential (primary) hypertension Fibromyalgia GERD (gastroesophageal reflux disease) Hammertoe of left foot History of pain when walking History of stress test Hypergammaglobulinemia Hyperlipemia Hypertension Hypothyroidism Iron deficiency Leg cramping Morbid obesity with BMI of 40.0-44.9, adult Multinodular thyroid Non-smoker Normal echocardiogram Osteomyelitis of toe Other specified peripheral vascular diseases PAD (peripheral artery disease) Shortness of breath Skin ulcer of right foot including toes with fat layer exposed Venous stasis dermatitis of both lower extremities Wears glasses Home Medications celecoxib 200 mg capsule 200 mg PO DAILY ARTHRITIS/INFLAMMATION 10/18/18 [History Last Taken 02/28/23] loratadine 10 mg capsule 10 mg PO DAILY ALLERGIES 10/18/18 [History Last Taken 02/28/23] metformin 1,000 mg tablet 1,000 mg PO BID DIABETES 10/18/18 [History Last Taken 02/28/23] montelukast 10 mg tablet 10 mg PO QHS ASTHMA/ALLERGIES 10/18/18 [History Last Taken 02/28/23] omeprazole 40 mg capsule,delayed release 40 mg PO DAILY ACID REFLUX 10/18/18 [History Last Taken 02/28/23] calcium carbonate 500 mg-vitamin D3 10 mcg (400 unit) tablet 1 ea PO DAILY SUPPLEMENT 10/29/19 [History Last Taken 02/28/23] paroxetine HCl 40 mg tablet 40 mg PO DAILY DEPRESSION 10/29/19 [History Last Taken 02/28/23] potassium chloride 20 mEq tablet,extended release(part/cryst) 20 meq PO DAILY SUPPLEMENT 10/29/19 [History Last Taken 02/28/23] pregabalin 150 mg capsule 150 mg PO TID NERVE PAIN 10/29/19 [History Last Taken 02/28/23] aspirin 81 mg tablet,delayed release (Adult Low Dose Aspirin) 81 mg PO DAILY HEART HEALTH 07/21/20 [History Last Taken 02/28/23] cilostazol 100 mg tablet 100 mg PO DAILY CHOLESTEROL 07/21/20 [History Last Taken 02/28/23] levothyroxine 175 mcg tablet 175 mcg PO DAILY THYROID 07/21/20 [History Last Taken 02/28/23] metoprolol succinate 200 mg tablet,extended release 24 hr 200 mg PO DAILY BLOOD PRESSURE 07/21/20 [History Last Taken 02/28/23] albuterol sulfate 90 mcg/actuation aerosol inhaler (ProAir HFA) 1 inh inhalation Q6H PRN SHORTNESS OF BREATH 08/26/22 [History Last Taken 2 Days Ago ~02/27/23] ferrous sulfate 325 mg (65 mg iron) tablet (iron) 325 mg PO DAILY ANEMIA 08/26/22 [History Last Taken 02/28/23] rosuvastatin 40 mg tablet (Crestor) 40 mg PO DAILY CHOLESTEROL 08/26/22 [History Last Taken 02/28/23] pen needle, diabetic 32 gauge x 5/32 (BD Ultra-Fine [place]ina Pen Needle) #100 ea 02/13/23 [Rx Last Taken Unknown] dapagliflozin propanediol 10 mg tablet (Farxiga) 10 mg PO DAILY DIABETES 03/01/23 [History Last Taken 02/28/23] glimepiride 4 mg tablet 4 mg PO BID DIABETES 03/01/23 [History Last Taken 02/28/23] insulin detemir U-100 100 unit/mL (3 mL) subcutaneous pen (Levemir FlexPen) 55 unit subcut DAILY DIABETES 03/01/23 [History Last Taken 02/28/23] ipratropium bromide 42 mcg (0.06 %) nasal spray 2 spray intranasal DAILY NASAL DRAINAGE 03/01/23 [History Last Taken 02/28/23] losartan 100 mg tablet 100 mg PO DAILY BLOOD PRESSURE 03/01/23 [History Last Taken 02/28/23] multivitamin 1 tab PO DAILY HEALTH MAINTENANCE 03/01/23 [History Last Taken 02/28/23] tirzepatide 2.5 mg/0.5 mL subcutaneous pen injector (Mounjaro) 2.5 mg subcut WE DIABETES 03/01/23 [History Last Taken 02/22/23] trazodone 100 mg tablet 200 mg PO QHS SLEEP 03/01/23 [History Last Taken 02/28/23] vitamin B complex 1 cap PO DAILY SUPPLEMENT 03/01/23 [History Last Taken 02/28/23] Allergy/AdvReac Type Severity Reaction Status Date / Time piperacillin [From Zosyn] Allergy Severe Anaphylaxis Verified 03/01/23 10:39 tazobactam [From Zosyn] Allergy Severe Anaphylaxis Verified 03/01/23 10:39 sulfamethoxazole Allergy Unknown Anaphylaxis Verified 03/01/23 13:34 [From Bactrim] trimethoprim [From Bactrim] Allergy Unknown Anaphylaxis Verified 03/01/23 13:34 latex Allergy Rash Verified 03/01/23 09:27 tetanus and diphtheria Allergy Anaphylaxis Verified 03/01/23 09:27 toxoids [Tetanus&Diphtheria Toxoid] flea medicine Allergy Anaphylaxis, Uncoded 03/01/23 09:27 Diarrhea Family History Mother Diabetes Dementia Father Diabetes Myocardial infarction Surgical History H/O amputation of lesser toe (05/05/17) H/O arthroscopic knee surgery (11/2019) History of cholecystectomy History of nasal septoplasty History of thyroidectomy Hx of total knee arthroplasty Social History Smoking Status: Never smoker alcohol intake: current alcohol intake frequency: holidays/special occasions only ROS Constitutional Constitutional: Denies chills, fatigue, fever(s) or malaise Eyes Eyes: Denies blurry vision ENT HEENT: Denies headache(s) or nasal discharge Cardiovascular Cardiovascular: Denies chest pain, dyspnea on exertion or syncope Respiratory/Chest Respiratory/Chest: Denies cough, shortness of breath at rest or shortness of breath with exertion Gastrointestinal Gastrointestinal: Denies constipation, diarrhea, nausea or vomiting Genitourinary Genitourinary: Denies dysuria Integumentary Integumentary: Reports wounds Neurologic Neurologic: Denies focal weakness, numbness or tremor(s) Psychiatric Psychiatric: Denies anxiety or depression Vital Signs Vital Signs Vital Signs: 03/01/23 09:24 03/01/23 10:36 03/01/23 10:55 Temperature 97.6 F L 98.1 F Temperature Source Temporal Oral Pulse Rate 74 93 88 Respiratory Rate 16 31 H 20 H Respiratory Effort Blood Pressure 122/77 H 101/89 H 97/53 L Blood Pressure Mean 92 93 67 Blood Pressure Source Blood Pressure Position Blood Pressure Location Pulse Ox 100 79 92 Oxygen Delivery Method Room Air Room Air Nasal Cannula Oxygen Flow Rate (L/min) 5 03/01/23 11:10 03/01/23 11:00 03/01/23 12:27 Temperature 98 F 97.8 F Temperature Source Temporal Oral Pulse Rate 85 87 86 Respiratory Rate 22 H 19 H 18 Respiratory Effort Blood Pressure 108/69 112/59 L 142/80 H Blood Pressure Mean 82 76 100 Blood Pressure Source Monitor Blood Pressure Position Sitting Blood Pressure Location Left Arm Pulse Ox 95 98 98 Oxygen Delivery Method Nasal Cannula Nasal Cannula Room Air Oxygen Flow Rate (L/min) 3 3 03/01/23 11:52 03/01/23 12:00 03/01/23 12:46 Temperature 97.8 F 97.7 F L Temperature Source Temporal Temporal Pulse Rate 89 91 Respiratory Rate 22 H 21 H Respiratory Effort Normal Blood Pressure 121/78 H 117/82 H Blood Pressure Mean 92 93 Blood Pressure Source Blood Pressure Position Blood Pressure Location Pulse Ox 98 97 Oxygen Delivery Method Nasal Cannula Room Air Room Air Oxygen Flow Rate (L/min) 1 Weight Weight: 244 lb 4.355 oz Body Mass Index (BMI) 37.1 Physical Exam Narrative General: Alert, Oriented x3, Cooperative, No apparent distress HEENT: Atraumatic, PERRLA, EOMI, Normocephalic Oral: Moist Mucosa Neck: Supple, No JVD Lungs: Diminished, Normal air movement, No rhonchi, No wheeze, No rales Cardiovascular: Regular rate, Regular Rhythm, Normal S1, Normal S2, No murmurs Abdomen: Soft, Non Tender, Non-Distended, No Hepato-splenomegaly Extremities: No edema, Capillary Refill Less than 3 Seconds Skin: Right lower extremity wound dressed Musculoskeletal: No Tenderness to Palpation of Joints or Extremities Neurological: Cranial nerves II-XII grossly intact, Motor Exam 5/5 strength throughout, Sensory exam intact to light touch and pain Psych/Mental Status: Normal Affect, Appropriate Results Lab / Micro Data Result Diagrams: 03/01/23 09:56 03/01/23 09:56 Labs: Laboratory Results - last 24 hr 03/01/23 09:56: WBC 8.5, RBC 3.93 L, Hgb 10.9 L, Hct 35.4 L, MCV 90.1, MCH 27.7, MCHC 30.8 L, RDW Std Deviation 46.1 H, RDW Coeff of Kami 13.9, Plt Count 313, MPV 9.4, Immature Gran % (Auto) 0.400, Neut % (Auto) 75.8 H, Lymph % (Auto) 15.2 L, [place] % (Auto) 7.8, Eos % (Auto) 0.6, Baso % (Auto) 0.2, Absolute Neuts (auto) 6.4, Absolute Lymphs (auto) 1.29, Nucleated RBC % 0, ESR 54 H 03/01/23 09:56: Sodium 136, Potassium 4.3, Chloride 103, Carbon Dioxide 30.0, Anion Gap 3 L, BUN 23 H, Creatinine 0.93, Estim Creat Clear Calc 66.51, Est GFR (MDRD) Af Amer 79, Est GFR (MDRD) Non-Af 66, BUN/Creatinine Ratio 24.7 H, Glucose 204 H, Calcium 8.8, Total Bilirubin 0.60, AST 37, ALT 46, Alkaline Phosphatase 107, C-React Prot Ext Range 116.00 H, Total Protein 7.6, Albumin 2.8 L, Globulin 4.8 H, Albumin/Globulin Ratio 0.6 L Radiology Impression Foot X-Ray 03/01/23 10:00 IMPRESSION: 1. Erosion of the head of the fifth metatarsal and the fifth toe consistent with osteomyelitis. 2. Soft tissue ulceration near the fifth metatarsal phalangeal joint. Electronically Signed: Zack Montenegro MD at 10:20 EDT , Assessment & Plan Assessment/Plan (1) Type 2 diabetes mellitus with foot ulcer: (2) Cellulitis of right lower limb: (3) Osteomyelitis: PLAN: Plan 1. Type 2 diabetes with diabetic foot ulcer and osteomyelitis of her right fifth metatarsal and neuropathy ? She did have what appeared to be an anaphylactic reaction to Zosyn ? We will consult infectious disease for antibiotic recommendations ? We will consult podiatry for wound management ? We will continue with insulin long-acting and sliding scale and make adjustments as necessary ? Accu-Cheks ACHS ? We will hold her home diabetic medications ? Continue with Lyrica 2. HTN/HLD/peripheral artery disease ? Blood pressure are stable ? Can resume her home blood pressure medications ? We will hold aspirin secondary to possible surgical intervention ? Continue cilostazol, it appears her last ABIs were done in 2018 we will repeat ? Continue with statin 3. Hypothyroidism ? Stable ? Continue with Synthroid 4. GERD ? Stable ? Continue with PPI 5. Anxiety/depression ? Stable ? Continue with her home medications DVT: Lovenox 75 minutes was spent on direct patient care as well as chart review and collaboration with colleagues Charges/Coding Visit Charges Inpatient E&M: 77840 Init Hosp L3
[2023-03-01] MEDS: 0.9% Saline Lock 10 ML Syringe IV (16:20)
[2023-03-01 16:35] LABS: M R Staph aureus DNA By PCR Negative (Negative); Probe Check PASS; Specimen Processing Control PASS; Staph aureus DNA By PCR POSITIVE (Negative)
[2023-03-01 16:40] LABS: Bedside Glucose 172 mg/dL (74-106)
[2023-03-01] MEDS: Insulin Lispro 100 UNIT/ML INSULN.PEN SC ×2 (18:03→21:15)
[2023-03-01] MEDS: Atorvastatin Calcium 80 MG Tablet PO (21:09)
[2023-03-01] MEDS: Insulin Glargine-YFGN 100 UNIT/ML Pen 30 UNIT SC (21:15)
[2023-03-01 22:40] LABS: Bedside Glucose 180 mg/dL (74-106)
[2023-03-02] VITALS (9 sets, daily range): BP systolic 89–136; BP diastolic 54–88; PULSE 72–86; RESP 16–18; TEMP 36.4–37.3; O2SAT 93–99; BMI 37.1
[2023-03-02] MEDS: Pregabalin 75 MG Capsule 150 MG PO ×3 (04:41→21:00)
[2023-03-02] MEDS: metroNIDAZOLE 500 MG Tablet PO ×3 (04:41→21:00)
[2023-03-02] MEDS: Levothyroxine 175 MCG Tablet PO (04:42)
[2023-03-02 06:11] LABS: Absolute Neutrophil Count 4.5 X10^3/uL (2.0-7.7); Basophil# 0.02 X10^3/uL; Basophil% 0.3 % (0-1); Eosinophil# 0.11 X10^3/uL; Eosinophils% 1.7 % (0-5); Hematocrit 30.9 % (37-47); Hemoglobin 9.4 g/dL (12.0-15.0); Lymphocyte % 18.8 % (19-41); Mean Corp Hgb Conc 30.4 g/dL (32-36); Mean Corpuscular Hgb 27.2 pg (27.0-32.0); Mean Corpuscular Volume 89.3 fL (81-99); Monocyte# 0.52 X10^3/uL; Monocyte% 8.2 % (0-10); NRBC Flagged by Analyzer 0 % (0-5); Neutrophil # 4.49 X10^3/uL (2.7-7.7); Neutrophil % 70.5 % (47-70); Platelet Count 252 K/mm3 (150-450); RBC Distribution Width SD 45.6 fl (35.1-43.9); Red Blood Count 3.46 M/mm3 (4.2-5.4); White Blood Count 6.4 K/mm3 (4.4-11.0)
[2023-03-02 06:38] LABS: Bedside Glucose 124 mg/dL (74-106)
[2023-03-02 06:57] LABS: Anion Gap 5 (5-15); BUN 18 mg/dL (7-18); BUN/Creat Ratio 26.4 RATIO (10-20); Chloride 107 mmol/L (98-107); Creatinine, Serum 0.68 mg/dL (0.55-1.02); EST Glomerular Filtration Rate 94 mL/min (>60); Est Glom Filt Rate - Afr Amer 114 mL/min (>60); Estimated Creatinine Clearance 90.97 ml/min; Glucose 130 mg/dL (74-106); Potassium 3.9 mmol/L (3.5-5.1); Sodium Level 140 mmol/L (136-145)
--- NOTE | 2023-03-02 08:00 | WOUNDNOTE ---
wound photo: right foot
--- NOTE | 2023-03-02 08:01 | WOUNDNOTE ---
wound photo: right foot
--- NOTE | 2023-03-02 08:32 | WOUNDNOTE ---
Talked with Dr Navarro. plan is for OR later today. Vascular lab had just been in for LEAS. dressing remains D&I at this time. will follow post op.
[2023-03-02] MEDS: 0.9% Saline Lock 10 ML Syringe IV (08:41)
--- NOTE | 2023-03-02 08:42 | PN.HOSP_ITS ---
Subjective Subjective Doing well, no issues overnight Objective Data Objective Data Vital Signs: Vital Signs Temp Pulse Resp BP Pulse Ox O2 Del Method O2 Flow Rate 97.9 F 86 16 133/62 H 94 Room Air 1 03/02/23 04:46 03/02/23 04:46 03/02/23 04:46 03/02/23 04:46 03/02/23 04:46 03/02/23 07:53 03/01/23 11:52 Oxygen Flow Rate (L/min) 1 Oxygen Delivery Method Room Air Weight: 244 lb 4.355 oz Body Mass Index (BMI) 37.1 Intake & Output: Intake and Output for Last 24 Hours 03/01/23 03/02/23 03/03/23 03:59 03:59 03:59 Intake Total 2680 / 2680 100 / 100 Balance 2680 / 2680 100 / 100 Lab / Micro Data Result Diagrams: 03/02/23 05:50 03/02/23 05:50 Labs: Laboratory Results - last 24 hr 03/01/23 09:56: WBC 8.5, RBC 3.93 L, Hgb 10.9 L, Hct 35.4 L, MCV 90.1, MCH 27.7, MCHC 30.8 L, RDW Std Deviation 46.1 H, RDW Coeff of Kami 13.9, Plt Count 313, MPV 9.4, Immature Gran % (Auto) 0.400, Neut % (Auto) 75.8 H, Lymph % (Auto) 15.2 L, [place] % (Auto) 7.8, Eos % (Auto) 0.6, Baso % (Auto) 0.2, Absolute Neuts (auto) 6.4, Absolute Lymphs (auto) 1.29, Nucleated RBC % 0, ESR 54 H 03/01/23 09:56: Sodium 136, Potassium 4.3, Chloride 103, Carbon Dioxide 30.0, Anion Gap 3 L, BUN 23 H, Creatinine 0.93, Estim Creat Clear Calc 66.51, Est GFR (MDRD) Af Amer 79, Est GFR (MDRD) Non-Af 66, BUN/Creatinine Ratio 24.7 H, Glucose 204 H, Calcium 8.8, Total Bilirubin 0.60, AST 37, ALT 46, Alkaline Phosphatase 107, C-React Prot Ext Range 116.00 H, Total Protein 7.6, Albumin 2.8 L, Globulin 4.8 H, Albumin/Globulin Ratio 0.6 L 03/01/23 12:45: S.aureus Protein A PCR POSITIVE H, MRSA (PCR) Negative 03/01/23 16:18: POC Glucose 172 H 03/01/23 21:14: POC Glucose 180 H 03/02/23 05:50: WBC 6.4, RBC 3.46 L, Hgb 9.4 L, Hct 30.9 L, MCV 89.3, MCH 27.2, MCHC 30.4 L, RDW Std Deviation 45.6 H, RDW Coeff of Kami 14.0, Plt Count 252, MPV 9.0, Immature Gran % (Auto) 0.500, Neut % (Auto) 70.5 H, Lymph % (Auto) 18.8 L, [place] % (Auto) 8.2, Eos % (Auto) 1.7, Baso % (Auto) 0.3, Absolute Neuts (auto) 4.5, Absolute Lymphs (auto) 1.20, Nucleated RBC % 0 03/02/23 05:50: Sodium 140, Potassium 3.9, Chloride 107, Carbon Dioxide 28.0, Anion Gap 5, BUN 18, Creatinine 0.68, Estim Creat Clear Calc 90.97, Est GFR (MDRD) Af Amer 114, Est GFR (MDRD) Non-Af 94, BUN/Creatinine Ratio 26.4 H, Glucose 130 H, Calcium 8.0 L 03/02/23 06:20: POC Glucose 124 H Radiography Diagnostic Testing: Radiology Impression Foot X-Ray 03/01/23 10:00 IMPRESSION: 1. Erosion of the head of the fifth metatarsal and the fifth toe consistent with osteomyelitis. 2. Soft tissue ulceration near the fifth metatarsal phalangeal joint. Electronically Signed: Zack Montenegro MD at 10:20 EDT , Lower Extremity MRI 03/01/23 15:21 IMPRESSION: 1. Fifth digit osteomyelitis as above. 2. No soft tissue abscess or phlegmon. Electronically Signed: Oneil Botello MD at 1:13 EDT , ADDENDUM: 03/02/23 0124 IMPRESSION: 1. Fifth digit osteomyelitis as above. 2. No soft tissue abscess or phlegmon. N.B. : lenka bowen RN, confirmed on 03/02/2023 01:17:59 (ET) that the healthcare facility has received the radiology report. Electronically Signed: Oneil Botello MD at 1:13 EDT , Physical Exam Narrative General: Alert, Oriented x3, Cooperative, No apparent distress HEENT: Atraumatic, PERRLA, EOMI, Normocephalic Oral: Moist Mucosa Neck: Supple, No JVD Lungs: Diminished, Normal air movement, No rhonchi, No wheeze, No rales Cardiovascular: Regular rate, Regular Rhythm, Normal S1, Normal S2, No murmurs Abdomen: Soft, Non Tender, Non-Distended, No Hepato-splenomegaly Extremities: No edema, Capillary Refill Less than 3 Seconds Skin: Right lower extremity wound dressed Musculoskeletal: No Tenderness to Palpation of Joints or Extremities Neurological: Cranial nerves II-XII grossly intact, Motor Exam 5/5 strength throughout, Sensory exam intact to light touch and pain Psych/Mental Status: Normal Affect, Appropriate Assessment & Plan Assessment/Plan (1) Type 2 diabetes mellitus with foot ulcer: (2) Cellulitis of right lower limb: (3) Osteomyelitis: PLAN: Plan 1. Type 2 diabetes with diabetic foot ulcer and osteomyelitis of her right f ifth metatarsal and neuropathy ? She did have what appeared to be an anaphylactic reaction to Zosyn ? We will consult infectious disease for antibiotic recommendations ? MRI with osteomyelitis, plan for operative treatment today ? We will continue with insulin long-acting and sliding scale and make adjustments as necessary ? Accu-Cheks ACHS ? We will hold her home diabetic medications ? Continue with Lyrica 2. HTN/HLD/peripheral artery disease ? Blood pressure are stable ? Can resume her home blood pressure medications ? We will hold aspirin secondary to possible surgical intervention ? Continue cilostazol, it appears her last ABIs were done in 2018 we will repeat ? Continue with statin 3. Hypothyroidism ? Stable ? Continue with Synthroid 4. GERD ? Stable ? Continue with PPI 5. Anxiety/depression ? Stable ? Continue with her home medications DVT: Lovenox Charges/Coding Visit Charges Inpatient E&M: 02279 Subs Hosp L2
[2023-03-02 09:08] LABS: Thyroid Stim Hormone (TSH) 0.07 uIU/mL (0.358-3.74)
[2023-03-02 09:14] LABS: Hemoglobin A1c 6.2 % (3.8-5.6)
--- NOTE | 2023-03-02 10:02 | PCM.PN.ID ---
Physical Exam Narrative Feeling ok, OR today. No fever, no issues with abx. No rash, no n/v/d. Const alert and no apparent distress General Appearance: cooperative Resp normal air movement and clear to auscultation bilaterally Cardio regular rate and regular rhythm GI soft to palpation, non-tender and non-distended Skin Skin Narrative: R foot wrapped ID ID: Route of nutrition/ use of supplements: [] Nutritional Intake: [] IV Site: [] Song Catheter: [] Assessment & Plan Assessment/Plan (1) Diabetic foot ulcer: (2) Osteomyelitis: PLAN: R foot osteo seen on MRI. Dr. Navarro consulted. Wound cx pending. Wound cx from 01/2023 with mssa and enterobacter. OR today. Had reaction with zosyn in ED. Will cover with vanc/cefepime/flagyl for now. Will follow
--- NOTE | 2023-03-02 11:20 | CASEMGMT ---
SID MENON Discharge Planning Assessment: Face to Face with patient for initial transition planning/care coordination assessment.?SID MENON introduced self and role at [facility], pt alert, oriented, voices understanding, and is agreeable to participating in assessment.? Care providers, pharmacy,?and demographics verified. ? Admitting dx: Osteomyelitis right foot PCP: Sharath Specialists: Melanie (podiatry), Angel (Pain), Cami (orthopedics) Preferred Pharmacy: [facility] Pharmacy Insurance: [employer] [facility] Prescription Benefit:?yes Living Will/HPOA: yes, HPOA: Daughter Bambi LNOK: daughter Bambi Living Arrangements: Pt lives alone in a single story home with a ramp entrance. Pt states she is independent with ADLs and IADLs. Transportation: Pt drives and denies any concerns with transportation DME: cane, walker, raised toilet seat, grab bars, hand held shower, glucometer and supplies (checks glucose twice a day), CPAP from [employer] which she states is not working. SNF: [facility]: yes but unable to recall the provider Plan: TBD. Pt's goal is to return home. Pt for OR today. Will continue to monitor pt's progress with PT/OT postoperatively and watch for IV antibiotic need at discharge. Pt states she has had these in the past and is familiar with administration. When asked if IV atb were needed at discharge if she would have someone available to assist her with these, pt states she would need to think about this. Aysha Ahuja RN CM
[2023-03-02 12:30] LABS: Bedside Glucose 92 mg/dL (74-106)
[2023-03-02] MEDS: Lactated Ringers 1,000 ML 15 ML IV (12:43)
--- NOTE | 2023-03-02 13:30 | AMP_PTH ---
PATIENT: REMI TREVINO LOC: MS3 U#:[id number] AGE/SX: 57/F ROOM: [facility] RE03/01/[address]: Dr. Macario Tyler MD : 1965 BED: 1 DIS: 03/07/2023 SPEC #: [id number] RECD: 03/02/23 14:34 STATUS: ROYER JEFFERY #: [id number] TATE: 03/02/23 13:[address]: Tereso Navarro DEPT: SURGICAL PATHOLOGY RECD BY: Kevan Patel ENTERED: 03/03/23 07:43 SP TYPE: Amputation OTHR DR: MD Dr. Victorino Mahmood MD Dr. Tai Chi Kwok, MD Tissues: A - Bone of foot, NOS B - Toe, NOS Procedures: Decalcification bone/plaque Surgery Specimen Level III Surgery Specimen Level IV HEADER OPERATION: Amputation fifth ray and fifth toe PRE-OP DIAGNOSIS: Cellulitis of right lower limb; diabetic foot ulcer; osteomyelitis; neuropathy TISSUE SUBMITTED: A - Right foot clearance fragment, B - Right fifth toe and metatarsal head amputation MICROSCOPIC DIAGNOSIS A. Right foot clearance fragment: A piece of bone with reactive changes, negative for acute osteomyelitis. B. Right fifth toe bone and metatarsal, amputation: Focal ulceration and associated acute inflammation. Underlying bone with acute osteomyelitis. SJ:nan 03/08/2023 MICROSCOPIC DESCRIPTION Slides are reviewed. GROSS DESCRIPTION A - Received in fixative is one container labeled with the patient's name and designated right foot clearance fragment. The specimen consists of a single irregular fragment of jimenez bone measuring 0.3 x 0.2 x 0.1 cm. The specimen is totally submitted in one cassette after decalcification. B - Received in fixative is one container labeled with the patient's name and designated right fifth toe bone and metatarsal. The specimen consists of two fragments. One fragment consists of bone measuring 3.5 cm in length and 1.5 cm in diameter. The second fragment consists of a toe with nail, skin and attached soft tissue measuring 7.0 cm in length and with a diameter of 2.5 cm. The lateral aspect of the toe contains an ulcer measuring 2.5 x 2.2 x 0.2 cm. Carpenter Assembler sections are submitted in two cassettes as follows: 1 - longitudinal section of distal toe, 2 - wireless sales representative section of ulcer and underlying soft tissue and bone. The specimen is submitted after decalcification. / AM:nan 03/03/2023 TC:2 CPT: 40796, 55584, 04497 x2
[2023-03-02] MEDS: Bupivacaine Mpf 0.5% 30 ML VIAL (13:50)
--- NOTE | 2023-03-02 14:11 | PCM.OPRPT ---
Report of Operation Date of Procedure: 03/02/23 Pre-Operative Diagnosis: Osteomyelitis right 5th toe and 5th metatarsal Post-Operative Diagnosis: Same Surgery/Procedure Performed:: Amputation of 5th toe and partial 5th metatarsal, right foot Surgeon: Tereso Navarro senior licensing manager: None Type of Anesthesia: Local and MAC Specimen's removed: 1. Right 5th toe and distal 5th metatarsal - sent to pathology 2. Bone from right 5th metatarsal - sent to microbiology 3. Clearance fragment 5th metatarsal - sent to pathology and microbiology Description of Procedure: Indications: 57 year old female with history of many medical problems including diabetes with neuropathy developed an infected right foot ulceration and subsequent osteomyelitis of the 5th toe and 5th metatarsal, there was drainage consistent with infection, cellulitis, maloder and probe to 5th metatarsal head. Xrays and MRI showed osteomyelitis to the 5th toe and 5th metatarsal of the right foot. The options were discussed with her - antibiotics, wound care, and debridement, also 5th toe and partial 5th metatarsal amputation. This was discussed with her in detail. She would like to proceed with the amputation. The possible benefits vs risks were discussed with her. She was informed the risks include but not limited to nonhealing, delayed healing, need for further surgery, worsening, loss of function, deformity, bleeding, blood clots, loss of limb, loss of life. The consent form was reviewed with her and she freely signed it. No guarantees were given nor implied. No warranties were given. She is on antibiotic therapy per Infectious Disease. Operative Procedure: The patient was brought back into the operating room and was placed on the operating room in the supine position. Patient was secured to the operating room table with safety belt around her waist. A time out was performed the she was properly identified and the surgical plan was confirmed. The patient received MAC anesthesia per the anesthesia team. The skin of the right foot was cleansed with 70% Isopropyl alcohol and 10mL of 0.5% Bupivacaine plain was given as a right foot 5th ray block. A well padded pneumatic tourniquet was applied around the right ankle. The right foot was scrubbed, prepped, and draped in the usual aseptic fashion. Further attention was directed to the right foot where again there was noted to be deep infected ulceration to the lateral 5th metatarsal phalangeal joint with probe to bone. There was cellulitis, drainage and edema to the site with maloder. The tissue in the ulcer was nonviable and necrotic as well - this involved the skin, subcutaneous and fascia layer. The right foot was elevated for 3 minutes and the right ankle tourniquet was inflated to 250mmHg. Using a 15 blade the ulceration was excised and the 5th toe was amputated. All nonviable soft tissue was debrided from the site using a 15 blade down to healthy viable soft tissue. The area debrided measured 9cm x 4cm and 2cm in depth. The 5th metatarsal head was visible and noted to be necrotic, soft and infected. This involved the head and neck of the 5th metatarsal. The shaft of the 5th metatarsal appeared white and was hard and viable. Using a powered sagittal saw an osteotomy was completed to the shaft of the 5th metatarsal and the distal 5th metatarsal was resected. The 5th toe, ulcer and distal 5th metatarsal which was resected was sent to pathology. However first a piece of bone was obtained from the 5th metatarsal necrotic area and sent to microbiology as culture. The site was flushed out with copious amounts of normal saline solution. A piece of bone was obtained of the residual 5th metatarsal and sent to microbiology and pathology as a clearance fragment. The site was flushed out with copious amounts of normal saline solution. The proximal incision site was reapproximated using 3-0 Prolene. A dressing was applied which consisted of 4x4 gauze, kerlix, abd pads and nirav bandage. The tourniquet was deflated and there was immediate return of warmth and perfusion to the foot with CFT < 2 seconds to all remaining toes. Total tourniquet time was 15 minutes. The patient tolerated the above procedure and anesthesia well with no complications. She was transported from the operating room to the recovery room with vital signs stable and in good condition. Post op orders were placed. Patient will be followed as an inpatient. Grafts/Implants Used: None Complications None
[2023-03-02 14:57] LABS: Bedside Glucose 93 mg/dL (74-106)
[2023-03-02 17:00] LABS: Bedside Glucose 112 mg/dL (74-106)
[2023-03-02] MEDS: oxyCODONE 5 MG Tablet PO (21:00)
[2023-03-02] MEDS: Atorvastatin Calcium 80 MG Tablet PO (21:00)
[2023-03-02] MEDS: Insulin Glargine-YFGN 100 UNIT/ML Pen 30 UNIT SC (21:07)
[2023-03-02] MEDS: Insulin Lispro 100 UNIT/ML INSULN.PEN SC (21:07)
[2023-03-02 21:29] LABS: Bedside Glucose 177 mg/dL (74-106)
[2023-03-02 22:51] LABS: Vancomycin, Trough Level 23.7 ug/mL (5.0-15.0)
--- NOTE | 2023-03-02 23:01 | PCM.RX.CS ---
Consult Pharmacy has been consulted to manage selected antiobiotic: Vancomycin Type of Consult: Follow-up Suspected Infection: Osteomyelitis Prior Doses of Antibiotics Received/Current Regimen: Medications Discontinued Medications Vancomycin HCl 2,000 mg/ (Sodium Chloride) 540 mls @ 250 mls/hr IV Q12H RUTH Last Admin: 03/02/23 15:21 Dose: Infused Labs: Sodium 140 mmol/L (136-145) 03/02/23 05:50 Potassium 3.9 mmol/L (3.5-5.1) 03/02/23 05:50 Chloride 107 mmol/L (98-107) 03/02/23 05:50 Carbon Dioxide 28.0 mmol/L (21.0-32.0) 03/02/23 05:50 Anion Gap 5 (5-15) 03/02/23 05:50 BUN 18 mg/dL (7-18) 03/02/23 05:50 Creatinine 0.68 mg/dL (0.55-1.02) 03/02/23 05:50 Est GFR (MDRD) Af Amer 114 mL/min (>60) 03/02/23 05:50 Est GFR (MDRD) Non-Af 94 mL/min (>60) 03/02/23 05:50 BUN/Creatinine Ratio 26.4 RATIO (10-20) H 03/02/23 05:50 Glucose 130 mg/dL (74-106) H 03/02/23 05:50 Vancomycin Trough 23.7 ug/mL (5.0-15.0) H 03/02/23 22:13 Microbiology: Microbiology 03/01/23 12:45 Wound - Right Foot Gram Stain - Final 03/01/23 12:45 Wound - Right Foot Wound Culture - Preliminary Staphylococcus aureus Staphylococcus species Beta streptococcus Weight used for dosin.8 kg Estimated Creatinine Clearance: 118 Goal Trough: 15-20 mcg/mL Pharmacy Plan for Drug Dosing: Vancomycin trough level, drawn 11.25hrs post-dose, was high at 23.7. This was despite decrease in SCr (0.93 to 0.68). Current dose was held and a random level was ordered in 12 hours. Further dosing will be determined from this result. Pharmacy Service will continue to monitor and adjust dosing as required. Follow-Up Labs: Trough Vancomycin - random Labs to be done on [date and time ordered]: 03/03/23 @1000 random
[2023-03-03 02:20] VITALS: BP 141/71; PULSE 79; RESP 16; TEMP 36.7; O2SAT 95
[2023-03-03 06:08] LABS: Absolute Lymphocyte Count 1.12 X10^3/uL (0.83-4.51); Absolute Neutrophil Count 4.5 X10^3/uL (2.0-7.7); Basophil# 0.02 X10^3/uL; Basophil% 0.3 % (0-1); Eosinophil# 0.13 X10^3/uL; Hematocrit 30.9 % (37-47); Hemoglobin 9.9 g/dL (12.0-15.0); Lymphocyte # 1.12 X10^3/ul (0.83-4.51); Lymphocyte % 17.4 % (19-41); Mean Corpuscular Hgb 28.2 pg (27.0-32.0); Mean Platelet Vol. 8.8 fl (6.2-12.0); Monocyte# 0.63 X10^3/uL; Monocyte% 9.8 % (0-10); NRBC Flagged by Analyzer 0 % (0-5); Neutrophil # 4.51 X10^3/uL (2.7-7.7); Neutrophil % 70.3 % (47-70); Platelet Count 270 K/mm3 (150-450); RBC Distribution Width SD 45.3 fl (35.1-43.9); Red Blood Count 3.51 M/mm3 (4.2-5.4); White Blood Count 6.4 K/mm3 (4.4-11.0)
[2023-03-03] MEDS: Pregabalin 75 MG Capsule 150 MG PO ×3 (06:22→21:25)
[2023-03-03] MEDS: metroNIDAZOLE 500 MG Tablet PO ×3 (06:22→21:21)
[2023-03-03] MEDS: Levothyroxine 175 MCG Tablet PO (06:23)
[2023-03-03 06:35] LABS: Anion Gap 5 (5-15); BUN 17 mg/dL (7-18); Calcium,Total 8.4 mg/dL (8.5-10.1); Chloride 105 mmol/L (98-107); Creatinine, Serum 0.63 mg/dL (0.55-1.02); EST Glomerular Filtration Rate 103 mL/min (>60); Est Glom Filt Rate - Afr Amer 125 mL/min (>60); Estimated Creatinine Clearance 98.19 ml/min; Glucose 101 mg/dL (74-106); Potassium 3.6 mmol/L (3.5-5.1); Sodium Level 139 mmol/L (136-145)
[2023-03-03 06:45] LABS: Bedside Glucose 105 mg/dL (74-106)
--- NOTE | 2023-03-03 06:59 | PCM.PROGNOTE ---
Subjective Subjective Patient was seen this morning for follow up on left foot. She is resting in bed, no complaints. She did get up and walk on foot last evening. There was bleeding and bandage was reinforced. Objective Data Objective Data Vital Signs: Vital Signs Temp Pulse Resp BP Pulse Ox O2 Del Method O2 Flow Rate 98.1 F 79 16 141/71 H 95 Room Air 6 03/03/23 02:20 03/03/23 02:20 03/03/23 02:20 03/03/23 02:20 03/03/23 02:20 03/03/23 02:20 03/02/23 14:20 Oxygen Flow Rate (L/min) 6 Oxygen Delivery Method Room Air Weight: 110.8 kg Body Mass Index (BMI) 37.1 Intake & Output: Intake and Output for Last 24 Hours 03/01/23 03/02/23 03/03/23 23:59 23:59 23:59 Intake Total 1740 / 1740 2019 / 2019 Output Total 800 / 800 Balance 1740 / 1740 2019 / 1719 -800 / -800 Lab / Micro Data Result Diagrams: 03/03/23 05:24 03/03/23 05:24 Labs: Laboratory Results - last 24 hr 03/02/23 05:50: TSH 0.07 L 03/02/23 05:50: Hemoglobin A1c 6.2 H 03/02/23 11:00: POC Glucose 92 03/02/23 14:38: POC Glucose 93 03/02/23 16:41: POC Glucose 112 H 03/02/23 21:06: POC Glucose 177 H 03/02/23 22:13: Vancomycin Trough 23.7 H 03/03/23 05:24: WBC 6.4, RBC 3.51 L, Hgb 9.9 L, Hct 30.9 L, MCV 88.0, MCH 28.2, MCHC 32.0 D, RDW Std Deviation 45.3 H, RDW Coeff of Kami 14.0, Plt Count 270, MPV 8.8, Immature Gran % (Auto) 0.200, Neut % (Auto) 70.3 H, Lymph % (Auto) 17.4 L, [place] % (Auto) 9.8, Eos % (Auto) 2.0, Baso % (Auto) 0.3, Absolute Neuts (auto) 4.5, Absolute Lymphs (auto) 1.12, Nucleated RBC % 0 03/03/23 05:24: Sodium 139, Potassium 3.6, Chloride 105, Carbon Dioxide 29.0, Anion Gap 5, BUN 17, Creatinine 0.63, Estim Creat Clear Calc 98.19, Est GFR (MDRD) Af Amer 125, Est GFR (MDRD) Non-Af 103, BUN/Creatinine Ratio 27.0 H, Glucose 101, Calcium 8.4 L 03/03/23 06:22: POC Glucose 105 Micro: Microbiology 03/01/23 12:45 Wound - Right Foot Gram Stain - Final 03/01/23 12:45 Wound - Right Foot Wound Culture - Preliminary Staphylococcus aureus Staphylococcus species Beta streptococcus Radiography Diagnostic Testing: Radiology Impression Extremity Arterial Study 03/01/23 15:27 Interpretation Summary Right HIMA 1.13, normal. Doppler/PVR waveforms of the right leg normal at rest. TBI diminished, pedal/digit disease vs spasm Left HIMA 1.09, normal. Doppler/PVR waveforms of the left leg normal at rest. Ordering Physician: Tereso Navarro Referring Physician: Gulshan Early Chi Performed By: Krystyna Rahman RVT Physical Exam Narrative Left foot s/p left 5th toe and 5th met head amputation - wound is health and viable, bleeding has stopped, erythema to foot significant improved, no maloder, no fluctuance, no crepitus present - CFT < 2 seconds to remaining toes, no evidence of complication at this time. Const alert, oriented x3 and no apparent distress Assessment & Plan Assessment/Plan (1) Cellulitis of right lower limb: (2) Diabetic foot ulcer: (3) Osteomyelitis: (4) Neuropathy: (5) Type 2 diabetes mellitus with foot ulcer: PLAN: Plan s/p left foot 5th toe and 5th metatarsal head amputation on 03/02/23 - site healing and foot improved today. Patient on IV antibiotic therapy per Infectious Disease - surgical culture results pending. Wound care: Dakins wet to dry gauze dressing changes daily - will likely plan for wound vac in future. No weightbearing right foot. LEAS for further evaluation of arterial flow - reviewed results, some PVD noted - will consult vascular. Hospital medicine following patient as well. Podiatry will continue to follow patient.
[2023-03-03] MEDS: oxyCODONE 5 MG Tablet PO ×3 (08:32→21:25)
[2023-03-03 08:33] VITALS: PULSE 74
[2023-03-03] MEDS: Metoprolol(XL)Succ 200 MG Tablet PO (08:33)
[2023-03-03] MEDS: Losartan Potassium 100 MG Tablet PO (08:33)
[2023-03-03] MEDS: Pantoprazole Sodium 40 MG Tablet PO (08:33)
[2023-03-03] MEDS: Enoxaparin 40 MG/0.4 ML Syringe SC (08:34)
[2023-03-03] MEDS: Insulin Glargine-YFGN 100 UNIT/ML Pen 30 UNIT SC ×2 (08:34→21:20)
[2023-03-03] MEDS: Paroxetine 20 MG Tablet 40 MG PO (08:35)
--- NOTE | 2023-03-03 08:58 | PCM.PN.HOSP ---
Subjective Subjective Doing well, ABIs demonstrate calcifications. Pain is fairly well controlled Objective Data Objective Data Vital Signs: Vital Signs Temp Pulse Resp BP Pulse Ox O2 Del Method O2 Flow Rate 98.1 F 74 16 141/71 H 95 Room Air 6 03/03/23 02:20 03/03/23 08:33 03/03/23 02:20 03/03/23 02:20 03/03/23 02:20 03/03/23 02:20 03/02/23 14:20 Oxygen Flow Rate (L/min) 6 Oxygen Delivery Method Room Air Weight: 244 lb 4.355 oz Body Mass Index (BMI) 37.1 Intake & Output: Intake and Output for Last 24 Hours 03/02/23 03/03/23 03/04/23 03:59 03:59 03:59 Intake Total 2680 / 2680 1080 / 1080 100 / 100 Output Total 300 / 300 500 / 500 Balance 2680 / 2680 780 / 780 -400 / -400 Lab / Micro Data Result Diagrams: 03/03/23 05:24 03/03/23 05:24 Labs: Laboratory Results - last 24 hr 03/02/23 05:50: TSH 0.07 L 03/02/23 05:50: Hemoglobin A1c 6.2 H 03/02/23 11:00: POC Glucose 92 03/02/23 14:38: POC Glucose 93 03/02/23 16:41: POC Glucose 112 H 03/02/23 21:06: POC Glucose 177 H 03/02/23 22:13: Vancomycin Trough 23.7 H 03/03/23 05:24: WBC 6.4, RBC 3.51 L, Hgb 9.9 L, Hct 30.9 L, MCV 88.0, MCH 28.2, MCHC 32.0 D, RDW Std Deviation 45.3 H, RDW Coeff of Kami 14.0, Plt Count 270, MPV 8.8, Immature Gran % (Auto) 0.200, Neut % (Auto) 70.3 H, Lymph % (Auto) 17.4 L, [place] % (Auto) 9.8, Eos % (Auto) 2.0, Baso % (Auto) 0.3, Absolute Neuts (auto) 4.5, Absolute Lymphs (auto) 1.12, Nucleated RBC % 0 03/03/23 05:24: Sodium 139, Potassium 3.6, Chloride 105, Carbon Dioxide 29.0, Anion Gap 5, BUN 17, Creatinine 0.63, Estim Creat Clear Calc 98.19, Est GFR (MDRD) Af Amer 125, Est GFR (MDRD) Non-Af 103, BUN/Creatinine Ratio 27.0 H, Glucose 101, Calcium 8.4 L 03/03/23 06:22: POC Glucose 105 Micro: Microbiology 03/01/23 12:45 Wound - Right Foot Gram Stain - Final 03/01/23 12:45 Wound - Right Foot Wound Culture - Preliminary Staphylococcus aureus Staphylococcus species Beta streptococcus Gram negative elizabeth Radiography Diagnostic Testing: Radiology Impression Extremity Arterial Study 03/01/23 15:27 Interpretation Summary Right HIMA 1.13, normal. Doppler/PVR waveforms of the right leg normal at rest. TBI diminished, pedal/digit disease vs spasm Left HIMA 1.09, normal. Doppler/PVR waveforms of the left leg normal at rest. Ordering Physician: Tereso Navarro Referring Physician: Gulshan Early Chi Performed By: Krystyna Rahman RVT Physical Exam Narrative General: Alert, Oriented x3, Cooperative, No apparent distress HEENT: Atraumatic, PERRLA, EOMI, Normocephalic Oral: Moist Mucosa Neck: Supple, No JVD Lungs: Diminished, Normal air movement, No rhonchi, No wheeze, No rales Cardiovascular: Regular rate, Regular Rhythm, Normal S1, Normal S2, No murmurs Abdomen: Soft, Non Tender, Non-Distended, No Hepato-splenomegaly Extremities: No edema, Capillary Refill Less than 3 Seconds Skin: Right lower extremity wound dressed Musculoskeletal: No Tenderness to Palpation of Joints or Extremities Neurological: Cranial nerves II-XII grossly intact, Motor Exam 5/5 strength throughout, Sensory exam intact to light touch and pain Psych/Mental Status: Normal Affect, Appropriate Assessment & Plan Assessment/Plan (1) Type 2 diabetes mellitus with foot ulcer: (2) Cellulitis of right lower limb: (3) Osteomyelitis: PLAN: Plan 1. Type 2 diabetes with diabetic foot ulcer and osteomyelitis of her right fifth metatarsal and neuropathy ? She did have what appeared to be an anaphylactic reaction to Zosyn ? We will consult infectious disease for antibiotic recommendations, awaiting cultures ? MRI with osteomyelitis, status post operative intervention 03/02/2023 ? We will continue with insulin long-acting and sliding scale and make adjustments as necessary ? Accu-Cheks ACHS ? We will hold her home diabetic medications ? Continue with Lyrica 2. HTN/HLD/peripheral artery disease ? Blood pressure are stable ? Can resume her home blood pressure medications ? We will hold aspirin secondary to possible surgical intervention ? Continue cilostazol, it appears her last ABIs were done in 2018 we will repeat ? Continue with statin 3. Hypothyroidism ? Stable ? Continue with Synthroid 4. GERD ? Stable ? Continue with PPI 5. Anxiety/depression ? Stable ? Continue with her home medications DVT: Lovenox Charges/Coding Visit Charges Inpatient E&M: 18535 Subs Hosp L2
[2023-03-03 09:09] VITALS: BP 123/70; PULSE 74; RESP 16; TEMP 36.7; O2SAT 94
--- NOTE | 2023-03-03 09:21 | WOUNDNOTE ---
wound photo: right foot
--- NOTE | 2023-03-03 09:25 | WOUNDNOTE ---
wound photo: right foot
[2023-03-03 10:52] LABS: Vancomycin, Random Level 13.3 ug/mL (0.0-15.0)
--- NOTE | 2023-03-03 11:12 | PCM.RX.CS ---
Consult Type of Consult: Follow-up Suspected Infection: Osteomyelitis Labs: Sodium 139 mmol/L (136-145) 03/03/23 05:24 Potassium 3.6 mmol/L (3.5-5.1) 03/03/23 05:24 Chloride 105 mmol/L (98-107) 03/03/23 05:24 Carbon Dioxide 29.0 mmol/L (21.0-32.0) 03/03/23 05:24 Anion Gap 5 (5-15) 03/03/23 05:24 BUN 17 mg/dL (7-18) 03/03/23 05:24 Creatinine 0.63 mg/dL (0.55-1.02) 03/03/23 05:24 Est GFR (MDRD) Af Amer 125 mL/min (>60) 03/03/23 05:24 Est GFR (MDRD) Non-Af 103 mL/min (>60) 03/03/23 05:24 BUN/Creatinine Ratio 27.0 RATIO (10-20) H 03/03/23 05:24 Glucose 101 mg/dL (74-106) 03/03/23 05:24 Vancomycin Trough 23.7 ug/mL (5.0-15.0) H 03/02/23 22:13 Random Vancomycin 13.3 ug/mL (0.0-15.0) 03/03/23 10:10 Microbiology: Microbiology 03/01/23 15:15 Blood Culture (Wb) - Anticubital Left Blood Culture - Preliminary No growth in 48 hours. 03/01/23 14:40 Blood Culture (Wb) - Anticubital Left Blood Culture - Preliminary No growth in 48 hours. 03/02/23 14:10 Bone - 5th Toe Gram Stain - Final 03/02/23 14:06 Bone - 5th Toe Gram Stain - Final 03/01/23 12:45 Wound - Right Foot Gram Stain - Final 03/01/23 12:45 Wound - Right Foot Wound Culture - Preliminary Staphylococcus aureus Staphylococcus species Beta streptococcus Gram negative elizabeth Goal Trough: 15-20 mcg/mL Pharmacy Plan for Drug Dosing: VANCOMYCIN LEVEL RECEIVED Current Vancomycin Dose: on hold following SUPRAtherapeutic trough Number of Doses Received: 2000mg x2, 1500mg x1 Vancomycin Level: 13.3 Hours Since Last Dose: 23 Renal Function: sCr 0.63 (CrCl > 100 ml/min) Renal Function Trend: stable Vancomycin Plan/Comments: Resume Vancomycin 1250mg Q12H Pending Level: Vancomycin trough @ 2330 03/04/23 Pharmacy Service will continue to monitor and adjust dosing as required. Labs to be done on [date and time ordered]: Vancomycin trough @ 2330 03/04/23
[2023-03-03 11:20] VITALS: BP 108/63; PULSE 71; RESP 16; TEMP 36.7; O2SAT 97
[2023-03-03 11:30] LABS: Bedside Glucose 139 mg/dL (74-106)
[2023-03-03] MEDS: Ferrous Sulfate 325 MG Tablet PO (11:56)
--- NOTE | 2023-03-03 12:51 | CON.PCM.SX_ITS ---
Assessment & Plan Assessment/Plan (1) Diabetic foot ulcer: PLAN: Patient has mildly diminished R TBI of 0.73 but otherwise normal LEAS with R HIMA 1.13 which suggests sufficient arterial inflow to heal R fifth digit amputation. To this point, wound bed is viable and well-healing. Maintaining good glycemic control will likely be of greatest benefit to wound healing. No further imaging or vascular intervention indicated at this time. Should wound healing be delayed or complicated would recommend reassessment on an outpatient basis. The above was discussed with the patient and she was agreeable with this plan. No medication changes recommended, continue ASA and statin. HPI Consult Data Date of Consult: 03/03/23 HPI Narrative HPI Narrative: REMI TREVINO, is a 57 F who presented to the [facility] ED on 03/01/2023 with diabetic foot infection involving the right fifth digit and lateral aspect of the foot. X-rays revealed evidence of osteomyelitis. She was admitted for IV antibiotics and podiatry evaluation. 03/02/2023 Dr. Navarro performed amputation of the right fifth toe and partial fifth metatarsal. The amputation site was noted to appear well perfused during the operation. In podiatry evaluation today, wound bed was noted to appear healthy and viable. A lower extremity arterial study was obtained on 03/01/2023 which revealed right HIMA 1.13 with triphasic waveforms, but with right TBI slightly diminished at 0.73. Left HIMA was 1.09 with triphasic waveforms no TBI due to prior left great toe amputation. Patient reports a history of prior diabetic foot ulcers which led to being partial amputation of multiple toes on her left foot. She reports that once palpitations occurred she had no issues healing. She denies any history of prior vascular surgical intervention, VTE. She currently has no significant pain in her foot other than immediately around the surgical site. She denies symptoms such as claudication, rest/nocturnal pain, discoloration or pallor of her BLE. She is healing well following surgery and has no specific complaints today. [facility] Medical History Anxiety Arthritis Asthma Asthma Back pain Broken teeth Cardiology follow-up encounter Chronic steroid use CPAP (continuous positive airway pressure) dependence Depression Dermatitis Diabetes type 2, uncontrolled Dietary restriction Difficulty balancing when standing Edema Essential (primary) hypertension Fibromyalgia GERD (gastroesophageal reflux disease) Hammertoe of left foot History of pain when walking History of stress test Hypergammaglobulinemia Hyperlipemia Hypertension Hypothyroidism Iron deficiency Leg cramping Morbid obesity with BMI of 40.0-44.9, adult Multinodular thyroid Non-smoker Normal echocardiogram Osteomyelitis of toe Other specified peripheral vascular diseases PAD (peripheral artery disease) Shortness of breath Skin ulcer of right foot including toes with fat layer exposed Venous stasis dermatitis of both lower extremities Wears glasses Home Medications celecoxib 200 mg capsule 200 mg PO DAILY ARTHRITIS/INFLAMMATION 10/18/18 [History Last Taken 02/28/23] loratadine 10 mg capsule 10 mg PO DAILY ALLERGIES 10/18/18 [History Last Taken 02/28/23] metformin 1,000 mg tablet 1,000 mg PO BID DIABETES 10/18/18 [History Last Taken 02/28/23] montelukast 10 mg tablet 10 mg PO QHS ASTHMA/ALLERGIES 10/18/18 [History Last Taken 02/28/23] omeprazole 40 mg capsule,delayed release 40 mg PO DAILY ACID REFLUX 10/18/18 [History Last Taken 02/28/23] calcium carbonate 500 mg-vitamin D3 10 mcg (400 unit) tablet 1 ea PO DAILY SUPPLEMENT 10/29/19 [History Last Taken 02/28/23] paroxetine HCl 40 mg tablet 40 mg PO DAILY DEPRESSION 10/29/19 [History Last Taken 02/28/23] potassium chloride 20 mEq tablet,extended release(part/cryst) 20 meq PO DAILY SUPPLEMENT 10/29/19 [History Last Taken 02/28/23] pregabalin 150 mg capsule 150 mg PO TID NERVE PAIN 10/29/19 [History Last Taken 02/28/23] aspirin 81 mg tablet,delayed release (Adult Low Dose Aspirin) 81 mg PO DAILY HEART HEALTH 07/21/20 [History Last Taken 02/28/23] cilostazol 100 mg tablet 100 mg PO DAILY CHOLESTEROL 07/21/20 [History Last Taken 02/28/23] levothyroxine 175 mcg tablet 175 mcg PO DAILY THYROID 07/21/20 [History Last Taken 02/28/23] metoprolol succinate 200 mg tablet,extended release 24 hr 200 mg PO DAILY BLOOD PRESSURE 07/21/20 [History Last Taken 02/28/23] albuterol sulfate 90 mcg/actuation aerosol inhaler (ProAir HFA) 1 inh inhalation Q6H PRN SHORTNESS OF BREATH 08/26/22 [History Last Taken 2 Days Ago ~02/27/23] ferrous sulfate 325 mg (65 mg iron) tablet (iron) 325 mg PO DAILY ANEMIA 08/26/22 [History Last Taken 02/28/23] rosuvastatin 40 mg tablet (Crestor) 40 mg PO DAILY CHOLESTEROL 08/26/22 [History Last Taken 02/28/23] pen needle, diabetic 32 gauge x 5/32 (BD Ultra-Fine Catalina Pen Needle) #100 ea 02/13/23 [Rx Last Taken Unknown] dapagliflozin propanediol 10 mg tablet (Farxiga) 10 mg PO DAILY DIABETES 03/01/23 [History Last Taken 02/28/23] glimepiride 4 mg tablet 4 mg PO BID DIABETES 03/01/23 [History Last Taken 02/28/23] insulin detemir U-100 100 unit/mL (3 mL) subcutaneous pen (Levemir FlexPen) 55 unit subcut DAILY DIABETES 03/01/23 [History Last Taken 02/28/23] ipratropium bromide 42 mcg (0.06 %) nasal spray 2 spray intranasal DAILY NASAL DRAINAGE 03/01/23 [History Last Taken 02/28/23] losartan 100 mg tablet 100 mg PO DAILY BLOOD PRESSURE 03/01/23 [History Last Taken 02/28/23] multivitamin 1 tab PO DAILY HEALTH MAINTENANCE 03/01/23 [History Last Taken 02/28/23] tirzepatide 2.5 mg/0.5 mL subcutaneous pen injector (Mounjaro) 2.5 mg subcut WE DIABETES 03/01/23 [History Last Taken 02/22/23] trazodone 100 mg tablet 200 mg PO QHS SLEEP 03/01/23 [History Last Taken 02/28/23] vitamin B complex 1 cap PO DAILY SUPPLEMENT 03/01/23 [History Last Taken 02/28/23] Allergy/AdvReac Type Severity Reaction Status Date / Time piperacillin [From Zosyn] Allergy Severe Anaphylaxis Verified 03/01/23 10:39 tazobactam [From Zosyn] Allergy Severe Anaphylaxis Verified 03/01/23 10:39 sulfamethoxazole Allergy Unknown Anaphylaxis Verified 03/01/23 13:34 [From Bactrim] trimethoprim [From Bactrim] Allergy Unknown Anaphylaxis Verified 03/01/23 13:34 latex Allergy Rash Verified 03/01/23 09:27 tetanus and diphtheria Allergy Anaphylaxis Verified 03/01/23 09:27 toxoids [Tetanus&Diphtheria Toxoid] flea medicine Allergy Anaphylaxis, Uncoded 03/01/23 09:27 Diarrhea Family History Mother Diabetes Dementia Father Diabetes Myocardial infarction Surgical History H/O amputation of lesser toe (05/05/17) H/O arthroscopic knee surgery (11/2019) History of cholecystectomy History of nasal septoplasty History of thyroidectomy Hx of total knee arthroplasty Social History Smoking Status: Never smoker alcohol intake: current alcohol intake frequency: holidays/special occasions only Physical Exam Const alert, oriented x3 and no apparent distress General Appearance: cooperative and comfortable HEENT normocephalic, head/scalp atraumatic, hearing grossly normal bilaterally, external ears normal and external nose normal Eyes EOMs intact bilaterally General Eye: normal appearance of both eyes Neck full ROM General: normal visual inspection and trachea midline Resp normal respiratory effort, normal air movement, no retractions, no use of accessory muscles and clear to auscultation bilaterally Effort and Inspection: able to speak in complete sentences; Negative for labored, stridor or audible wheezes Cardio regular rate and regular rhythm Peripheral Pulses: brachial pulses present and radial pulses present Extremity Extremity Narrative: Right foot with dressing in place and was not removed for exam. PT pulses palpable bilaterally. Skin Wounds: wounds noted Wound Narrative: R 5th toe amputation site with dressing in place, no bleed through noted. Neuro oriented x3, CN's II-XII intact bilaterally, moves all extremities, no focal motor deficits and no sensory deficits noted Speech: speech normal Psych Appearance: grossly normal Attitude: calm and engaged Activity / Motor Behavior: appropriate eye contact Speech: normal speech Mood & Affect: euthymic mood Lab / Micro Data Result Diagrams: 03/03/23 05:24 03/03/23 05:24 Labs: Laboratory Results - last 24 hr 03/02/23 14:38: POC Glucose 93 03/02/23 16:41: POC Glucose 112 H 03/02/23 21:06: POC Glucose 177 H 03/02/23 22:13: Vancomycin Trough 23.7 H 03/03/23 05:24: WBC 6.4, RBC 3.51 L, Hgb 9.9 L, Hct 30.9 L, MCV 88.0, MCH 28.2, MCHC 32.0 D, RDW Std Deviation 45.3 H, RDW Coeff of Kami 14.0, Plt Count 270, MPV 8.8, Immature Gran % (Auto) 0.200, Neut % (Auto) 70.3 H, Lymph % (Auto) 17.4 L, Leslie % (Auto) 9.8, Eos % (Auto) 2.0, Baso % (Auto) 0.3, Absolute Neuts (auto) 4.5, Absolute Lymphs (auto) 1.12, Nucleated RBC % 0 03/03/23 05:24: Sodium 139, Potassium 3.6, Chloride 105, Carbon Dioxide 29.0, Anion Gap 5, BUN 17, Creatinine 0.63, Estim Creat Clear Calc 98.19, Est GFR (MDRD) Af Amer 125, Est GFR (MDRD) Non-Af 103, BUN/Creatinine Ratio 27.0 H, Glucose 101, Calcium 8.4 L 03/03/23 06:22: POC Glucose 105 03/03/23 10:10: Random Vancomycin 13.3 03/03/23 11:11: POC Glucose 139 H Micro: Microbiology 03/02/23 14:10 Bone - 5th Toe Gram Stain - Final 03/02/23 14:10 Bone - 5th Toe Wound Culture - Preliminary Gram positive organism 03/02/23 14:06 Bone - 5th Toe Gram Stain - Final 03/02/23 14:06 Bone - 5th Toe Wound Culture - Preliminary 03/01/23 15:15 Blood Culture (Wb) - Anticubital Left Blood Culture - Preliminary No growth in 48 hours. 03/01/23 14:40 Blood Culture (Wb) - Anticubital Left Blood Culture - Preliminary No growth in 48 hours. 03/01/23 12:45 Wound - Right Foot Gram Stain - Final 03/01/23 12:45 Wound - Right Foot Wound Culture - Preliminary Staphylococcus aureus Staphylococcus species Beta streptococcus Gram negative elizabeth Radiology Impression Extremity Arterial Study 03/01/23 15:27 Interpretation Summary Right HIMA 1.13, normal. Doppler/PVR waveforms of the right leg normal at rest. TBI diminished, pedal/digit disease vs spasm Left HIMA 1.09, normal. Doppler/PVR waveforms of the left leg normal at rest. Ordering Physician: Tereso Navarro Referring Physician: Gulshan Early Chi Performed By: Krystyna Rahman RVT Charges/Coding Visit Charges Inpatient E&M: 80591 Init Hosp L2
--- NOTE | 2023-03-03 13:24 | CASEMGMT ---
Discharge Planning HH list created and sent to RN CM. Dorothy Kamara, Discharge Planning Asst.
--- NOTE | 2023-03-03 13:53 | PCM.PN.ID ---
Physical Exam Narrative Some pain in foot, no fever, no n/v/d. Const alert and no apparent distress General Appearance: cooperative Resp normal air movement and clear to auscultation bilaterally Cardio regular rate and regular rhythm GI soft to palpation, non-tender and non-distended Skin Skin Narrative: foot wrapped ID ID: Route of nutrition/ use of supplements: [] Nutritional Intake: [] IV Site: [] Song Catheter: [] Assessment & Plan Assessment/Plan (1) Diabetic foot ulcer: (2) Osteomyelitis: PLAN: R foot osteo seen on MRI. Dr. Navarro consulted. Wound cx with staph x2, strep, GNR. Wound cx from 01/2023 with mssa and enterobacter. OR 03/02/[address] Navarro for 5th toe amp and partial 5th ray resection. Had reaction with zosyn in ED. Cont with vanc/cefepime/flagyl for now. Will follow
[2023-03-03 14:57] VITALS: BP 120/67; PULSE 62; RESP 16; TEMP 36.8; O2SAT 94
--- NOTE | 2023-03-03 14:59 | CASEMGMT ---
SID MENON into pt room to discuss dc planning. Pt states she is not sure yet if she would have someone available to do the IV antibiotics if needed. She will talk to her dtr this weekend. Also discussed wound care. Pt to talk to her dtr regarding both. SID MENON to follow up with pt on Monday.
[2023-03-03 16:24] LABS: Bedside Glucose 145 mg/dL (74-106)
[2023-03-03] MEDS: Juven (unflavored) Packet 1 PACKET PO (17:29)
[2023-03-03 21:13] VITALS: BP 127/71; PULSE 72; RESP 16; TEMP 36.8; O2SAT 94
[2023-03-03] MEDS: Atorvastatin Calcium 80 MG Tablet PO (21:18)
[2023-03-03 22:27] LABS: Bedside Glucose 136 mg/dL (74-106)
[2023-03-04 04:05] VITALS: BP 135/71; PULSE 65; RESP 16; TEMP 37.1; O2SAT 93
[2023-03-04] MEDS: oxyCODONE 5 MG Tablet PO ×3 (04:21→19:38)
[2023-03-04] MEDS: Levothyroxine 175 MCG Tablet PO (06:09)
[2023-03-04] MEDS: metroNIDAZOLE 500 MG Tablet PO ×3 (06:09→21:54)
[2023-03-04] MEDS: Pregabalin 75 MG Capsule 150 MG PO ×3 (06:18→22:27)
[2023-03-04 06:45] LABS: Bedside Glucose 128 mg/dL (74-106)
--- NOTE | 2023-03-04 07:17 | PCM.PROGNOTE ---
Subjective Subjective Patient was seen this morning. She is resting comfortably in bed, no complaints. No f/c/n/v. Objective Data Objective Data Vital Signs: Vital Signs Temp Pulse Resp BP Pulse Ox O2 Del Method O2 Flow Rate 98.8 F 65 16 135/71 H 93 Room Air 6 03/04/23 04:05 03/04/23 04:05 03/04/23 04:05 03/04/23 04:05 03/04/23 04:05 03/04/23 04:05 03/02/23 14:20 Oxygen Flow Rate (L/min) 6 Oxygen Delivery Method Room Air Weight: 110.8 kg Body Mass Index (BMI) 37.1 Intake & Output: Intake and Output for Last 24 Hours 03/02/23 03/03/23 03/04/23 23:59 23:59 23:59 Intake Total 2019 1877.5 / 2277.5 1075 / 1075 Output Total 3350 / 3650 1300 / 1300 Balance 2020 / 1720 -1472.5 / -1372.5 -225 / -225 Lab / Micro Data Result Diagrams: 03/03/23 05:24 03/03/23 05:24 Labs: Laboratory Results - last 24 hr 03/03/23 10:10: Random Vancomycin 13.3 03/03/23 11:11: POC Glucose 139 H 03/03/23 16:05: POC Glucose 145 H 03/03/23 21:17: POC Glucose 136 H 03/04/23 06:11: POC Glucose 128 H Micro: Microbiology 03/02/23 14:10 Bone - 5th Toe Gram Stain - Final 03/02/23 14:10 Bone - 5th Toe Wound Culture - Preliminary Gram positive organism 03/02/23 14:06 Bone - 5th Toe Gram Stain - Final 03/02/23 14:06 Bone - 5th Toe Wound Culture - Preliminary 03/01/23 15:15 Blood Culture (Wb) - Anticubital Left Blood Culture - Preliminary No growth in 48 hours. 03/01/23 14:40 Blood Culture (Wb) - Anticubital Left Blood Culture - Preliminary No growth in 48 hours. 03/01/23 12:45 Wound - Right Foot Gram Stain - Final 03/01/23 12:45 Wound - Right Foot Wound Culture - Preliminary Staphylococcus aureus Staphylococcus species Beta streptococcus Gram negative eilzabeth Physical Exam Narrative Left foot s/p left 5th toe and 5th met head amputation - wound is health and viable, bleeding has stopped, erythema to foot significant improved, no maloder, no fluctuance, no crepitus present - CFT < 2 seconds to remaining toes, no evidence of complication at this time. Const alert, oriented x3 and no apparent distress Assessment & Plan Assessment/Plan (1) Cellulitis of right lower limb: (2) Diabetic foot ulcer: (3) Osteomyelitis: (4) Neuropathy: (5) Type 2 diabetes mellitus with foot ulcer: PLAN: Plan s/p left foot 5th toe and 5th metatarsal head amputation on 03/02/23 - site continues to heal and improve. Patient on IV antibiotic therapy per Infectious Disease - surgical culture results pending. Wound care: Dakins wet to dry gauze dressing changes daily - will likely plan for wound vac in future. No weightbearing right foot. LEAS for further evaluation of arterial flow - reviewed results, some PVD noted - will consult vascular. Hospital medicine following patient as well. Podiatry will continue to follow patient.
[2023-03-04] MEDS: Juven (unflavored) Packet 1 PACKET PO ×2 (07:28→16:54)
[2023-03-04] MEDS: Losartan Potassium 100 MG Tablet PO (07:28)
[2023-03-04] MEDS: Enoxaparin 40 MG/0.4 ML Syringe SC (07:29)
[2023-03-04] MEDS: Paroxetine 20 MG Tablet 40 MG PO (07:29)
[2023-03-04] MEDS: Pantoprazole Sodium 40 MG Tablet PO (07:30)
[2023-03-04 07:33] VITALS: PULSE 63
[2023-03-04] MEDS: Metoprolol(XL)Succ 200 MG Tablet PO (07:33)
[2023-03-04] MEDS: Insulin Glargine-YFGN 100 UNIT/ML Pen 30 UNIT SC ×2 (07:35→21:55)
[2023-03-04 08:29] VITALS: BP 128/69; PULSE 63; RESP 16; TEMP 36.6; O2SAT 94
--- NOTE | 2023-03-04 08:49 | PCM.PN.HOSP ---
Subjective Subjective Doing well, pain is controlled. No issues overnight Objective Data Objective Data Vital Signs: Vital Signs Temp Pulse Resp BP Pulse Ox O2 Del Method O2 Flow Rate 98 F 63 16 128/69 H 94 Room Air 6 03/04/23 08:29 03/04/23 08:29 03/04/23 08:29 03/04/23 08:29 03/04/23 08:29 03/04/23 08:29 03/02/23 14:20 Oxygen Flow Rate (L/min) 6 Oxygen Delivery Method Room Air Weight: 244 lb 4.355 oz Body Mass Index (BMI) 37.1 Intake & Output: Intake and Output for Last 24 Hours 03/03/23 03/04/23 03/05/23 03:59 03:59 03:59 Intake Total 1080 / 1080 2552.5 / 2552.5 400 / 400 Output Total 300 / 300 3350 / 3350 1000 / 1000 Balance 780 / 780 -797.5 / -797.5 -600 / -600 Lab / Micro Data Result Diagrams: 03/03/23 05:24 03/03/23 05:24 Labs: Laboratory Results - last 24 hr 03/03/23 10:10: Random Vancomycin 13.3 03/03/23 11:11: POC Glucose 139 H 03/03/23 16:05: POC Glucose 145 H 03/03/23 21:17: POC Glucose 136 H 03/04/23 06:11: POC Glucose 128 H Micro: Microbiology 03/02/23 14:10 Bone - 5th Toe Gram Stain - Final 03/02/23 14:10 Bone - 5th Toe Wound Culture - Preliminary Gram positive organism 03/02/23 14:06 Bone - 5th Toe Gram Stain - Final 03/02/23 14:06 Bone - 5th Toe Wound Culture - Preliminary 03/01/23 15:15 Blood Culture (Wb) - Anticubital Left Blood Culture - Preliminary No growth in 48 hours. 03/01/23 14:40 Blood Culture (Wb) - Anticubital Left Blood Culture - Preliminary No growth in 48 hours. 03/01/23 12:45 Wound - Right Foot Gram Stain - Final 03/01/23 12:45 Wound - Right Foot Wound Culture - Preliminary Staphylococcus aureus Staphylococcus species Beta streptococcus Gram negative elizabeth Physical Exam Narrative General: Alert, Oriented x3, Cooperative, No apparent distress HEENT: Atraumatic, PERRLA, EOMI, Normocephalic Oral: Moist Mucosa Neck: Supple, No JVD Lungs: Diminished, Normal air movement, No rhonchi, No wheeze, No rales Cardiovascular: Regular rate, Regular Rhythm, Normal S1, Normal S2, No murmurs Abdomen: Soft, Non Tender, Non-Distended, No Hepato-splenomegaly Extremities: No edema, Capillary Refill Less than 3 Seconds Skin: Right lower extremity wound dressed Musculoskeletal: No Tenderness to Palpation of Joints or Extremities Neurological: Cranial nerves II-XII grossly intact, Motor Exam 5/5 strength throughout, Sensory exam intact to light touch and pain Psych/Mental Status: Normal Affect, Appropriate Assessment & Plan Assessment/Plan (1) Type 2 diabetes mellitus with foot ulcer: (2) Cellulitis of right lower limb: (3) Osteomyelitis: PLAN: Plan 1. Type 2 diabetes with diabetic foot ulcer and osteomyelitis of her right fifth metatarsal and neuropathy ? She did have what appeared to be an anaphylactic reaction to Zosyn ? We will consult infectious disease for antibiotic recommendations, awaiting cultures ? MRI with osteomyelitis, status post operative intervention 03/02/2023 ? We will continue with insulin long-acting and sliding scale and make adjustments as necessary ? Accu-Cheks ACHS ? We will hold her home diabetic medications ? Continue with Lyrica 2. HTN/HLD/peripheral artery disease ? Blood pressure are stable ? Can resume her home blood pressure medications ? We will hold aspirin secondary to possible surgical intervention ? Continue cilostazol, it appears her last ABIs were done in 2018 we will repeat ? Continue with statin 3. Hypothyroidism ? Stable ? Continue with Synthroid 4. GERD ? Stable ? Continue with PPI 5. Anxiety/depression ? Stable ? Continue with her home medications DVT: Lovenox Charges/Coding Visit Charges Inpatient E&M: 51256 Subs Hosp L2
[2023-03-04] MEDS: Insulin Lispro 100 UNIT/ML INSULN.PEN SC ×2 (10:58→21:58)
[2023-03-04] MEDS: DAKIN'S SOL HALF STRENGTH (=0.25%) 1 APPLIC TOPICAL (10:59)
[2023-03-04] MEDS: Ferrous Sulfate 325 MG Tablet PO (11:01)
[2023-03-04 11:21] VITALS: BP 117/69; PULSE 61; RESP 16; TEMP 36.6; O2SAT 95
[2023-03-04 11:29] LABS: Bedside Glucose 175 mg/dL (74-106)
[2023-03-04 15:29] VITALS: BP 114/66; PULSE 56; RESP 16; TEMP 36.6; O2SAT 95
[2023-03-04 16:28] LABS: Bedside Glucose 122 mg/dL (74-106)
[2023-03-04] MEDS: Atorvastatin Calcium 80 MG Tablet PO (21:54)
[2023-03-04 22:02] VITALS: BP 138/75; PULSE 63; RESP 16; TEMP 36.5; O2SAT 96
[2023-03-04 22:47] LABS: Bedside Glucose 182 mg/dL (74-106)
[2023-03-05] VITALS (8 sets, daily range): BP systolic 108–155; BP diastolic 68–90; PULSE 56–65; RESP 16–18; TEMP 36.4–37.1; O2SAT 94–98
--- NOTE | 2023-03-05 00:21 | PCM.RX.CS ---
Consult Pharmacy has been consulted to manage selected antiobiotic: Vancomycin Type of Consult: Follow-up Suspected Infection: Osteomyelitis Prior Doses of Antibiotics Received/Current Regimen: Medications Vancomycin HCl 1,250 mg/ (Sodium Chloride) 275 mls @ 167 mls/hr IV Q12H RUTH Last Admin: 03/04/23 23:40 Dose: 167 mls/hr Labs: Sodium 139 mmol/L (136-145) 03/03/23 05:24 Potassium 3.6 mmol/L (3.5-5.1) 03/03/23 05:24 Chloride 105 mmol/L (98-107) 03/03/23 05:24 Carbon Dioxide 29.0 mmol/L (21.0-32.0) 03/03/23 05:24 Anion Gap 5 (5-15) 03/03/23 05:24 BUN 17 mg/dL (7-18) 03/03/23 05:24 Creatinine 0.63 mg/dL (0.55-1.02) 03/03/23 05:24 Est GFR (MDRD) Af Amer 125 mL/min (>60) 03/03/23 05:24 Est GFR (MDRD) Non-Af 103 mL/min (>60) 03/03/23 05:24 BUN/Creatinine Ratio 27.0 RATIO (10-20) H 03/03/23 05:24 Glucose 101 mg/dL (74-106) 03/03/23 05:24 Vancomycin Trough 17.0 ug/mL (5.0-15.0) H 03/04/23 23:33 Random Vancomycin 13.3 ug/mL (0.0-15.0) 03/03/23 10:10 Microbiology: Microbiology 03/02/23 14:10 Bone - 5th Toe Gram Stain - Final 03/02/23 14:10 Bone - 5th Toe Wound Culture - Preliminary Beta streptococcus Gram negative elizabeth 03/02/23 14:06 Bone - 5th Toe Gram Stain - Final 03/02/23 14:06 Bone - 5th Toe Wound Culture - Preliminary 03/01/23 12:45 Wound - Right Foot Gram Stain - Final 03/01/23 12:45 Wound - Right Foot Wound Culture - Final Staphylococcus aureus Streptococcus agalactiae (B) Proteus penneri 03/01/23 15:15 Blood Culture (Wb) - Anticubital Left Blood Culture - Preliminary No growth in 48 hours. 03/01/23 14:40 Blood Culture (Wb) - Anticubital Left Blood Culture - Preliminary No growth in 48 hours. Weight used for dosin.8 kg Estimated Creatinine Clearance: >100 Goal Trough: 15-20 mcg/mL Pharmacy Plan for Drug Dosing: Vancomycin trough level, drawn 11.5hrs post-dose, was 17.0. This is within the target range of 15-20, so will continue dosing at 1250mg q12h, and will re-draw a trough in two days. Pharmacy Service will continue to monitor and adjust dosing as required. Follow-Up Labs: Trough Vancomycin Labs to be done on [date and time ordered]: 03/06/23 @2942
[2023-03-05] MEDS: oxyCODONE 5 MG Tablet PO ×3 (01:55→21:00)
[2023-03-05] MEDS: metroNIDAZOLE 500 MG Tablet PO ×3 (06:13→21:02)
[2023-03-05] MEDS: Levothyroxine 175 MCG Tablet PO (06:14)
[2023-03-05] MEDS: Pregabalin 75 MG Capsule 150 MG PO ×3 (06:15→21:00)
[2023-03-05 06:18] LABS: Absolute Lymphocyte Count 1.29 X10^3/uL (0.83-4.51); Basophil# 0.03 X10^3/uL; Basophil% 0.6 % (0-1); Eosinophil# 0.21 X10^3/uL; Eosinophils% 4.1 % (0-5); Hemoglobin 10.3 g/dL (12.0-15.0); Lymphocyte # 1.29 X10^3/ul (0.83-4.51); Lymphocyte % 25.2 % (19-41); Mean Corp Hgb Conc 31.2 g/dL (32-36); Mean Corpuscular Hgb 27.5 pg (27.0-32.0); Mean Corpuscular Volume 88.2 fL (81-99); Mean Platelet Vol. 8.7 fl (6.2-12.0); Monocyte# 0.59 X10^3/uL; Monocyte% 11.5 % (0-10); NRBC Flagged by Analyzer 0 % (0-5); Neutrophil # 2.97 X10^3/uL (2.7-7.7); Neutrophil % 58.2 % (47-70); Platelet Count 331 K/mm3 (150-450); RBC Distribution Width CV 13.6 % (11.6-14.6); Red Blood Count 3.74 M/mm3 (4.2-5.4); White Blood Count 5.1 K/mm3 (4.4-11.0)
[2023-03-05 06:23] LABS: Bedside Glucose 129 mg/dL (74-106)
[2023-03-05 06:48] LABS: Anion Gap 4 (5-15); BUN 19 mg/dL (7-18); BUN/Creat Ratio 30.5 RATIO (10-20); Calcium,Total 8.4 mg/dL (8.5-10.1); Chloride 104 mmol/L (98-107); Creatinine, Serum 0.62 mg/dL (0.55-1.02); EST Glomerular Filtration Rate 105 mL/min (>60); Est Glom Filt Rate - Afr Amer 126 mL/min (>60); Estimated Creatinine Clearance 99.77 ml/min; Glucose 137 mg/dL (74-106); Potassium 4.1 mmol/L (3.5-5.1); Sodium Level 141 mmol/L (136-145)
[2023-03-05] MEDS: Juven (unflavored) Packet 1 PACKET PO ×2 (07:49→16:30)
[2023-03-05] MEDS: Enoxaparin 40 MG/0.4 ML Syringe SC (07:49)
[2023-03-05] MEDS: Insulin Glargine-YFGN 100 UNIT/ML Pen 30 UNIT SC ×2 (07:49→21:07)
[2023-03-05] MEDS: Metoprolol(XL)Succ 200 MG Tablet PO (07:50)
[2023-03-05] MEDS: Paroxetine 20 MG Tablet 40 MG PO (07:51)
[2023-03-05] MEDS: Losartan Potassium 100 MG Tablet PO (07:51)
[2023-03-05] MEDS: Nystatin Powder 15gm Bottle 1 APPLIC TOPICAL ×2 (07:51→21:02)
[2023-03-05] MEDS: Pantoprazole Sodium 40 MG Tablet PO (07:52)
--- NOTE | 2023-03-05 09:40 | PN.HOSP_ITS ---
Subjective Subjective Doing well, no issues overnight. Ambulation is difficult having to be nonweightbearing on her right leg which is her dominant leg will likely need SNF placement for rehab Objective Data Objective Data Vital Signs: Vital Signs Temp Pulse Resp BP Pulse Ox O2 Del Method O2 Flow Rate 97.8 F 57 L 16 138/73 H 97 Room Air 6 03/05/23 08:47 03/05/23 08:47 03/05/23 08:47 03/05/23 08:47 03/05/23 08:47 03/05/23 08:47 03/02/23 14:20 Oxygen Flow Rate (L/min) 6 Oxygen Delivery Method Room Air Weight: 244 lb 4.355 oz Body Mass Index (BMI) 37.1 Intake & Output: Intake and Output for Last 24 Hours 03/04/23 03/05/23 03/06/23 03:59 03:59 03:59 Intake Total 2552.5 / 2552.5 1750 / 1750 700 / 700 Output Total 3350 / 3350 4425 / 4425 1150 / 1150 Balance -797.5 / -797.5 -2675 / -2675 -450 / -450 Lab / Micro Data Result Diagrams: 03/05/23 05:54 03/05/23 05:54 Labs: Laboratory Results - last 24 hr 03/04/23 10:57: POC Glucose 175 H 03/04/23 16:08: POC Glucose 122 H 03/04/23 21:57: POC Glucose 182 H 03/04/23 23:33: Vancomycin Trough 17.0 H 03/05/23 05:54: WBC 5.1, RBC 3.74 L, Hgb 10.3 L, Hct 33.0 L, MCV 88.2, MCH 27.5, MCHC 31.2 L, RDW Std Deviation 44.0 H, RDW Coeff of Kami 13.6, Plt Count 331, MPV 8.7, Immature Gran % (Auto) 0.400, Neut % (Auto) 58.2, Lymph % (Auto) 25.2, [place] % (Auto) 11.5 H, Eos % (Auto) 4.1, Baso % (Auto) 0.6, Absolute Neuts (auto) 3.0, Absolute Lymphs (auto) 1.29, Nucleated RBC % 0 03/05/23 05:54: Sodium 141, Potassium 4.1, Chloride 104, Carbon Dioxide 33.0 H, Anion Gap 4 L, BUN 19 H, Creatinine 0.62, Estim Creat Clear Calc 99.77, Est GFR (MDRD) Af Amer 126, Est GFR (MDRD) Non-Af 105, BUN/Creatinine Ratio 30.5 H, Gl ucose 137 H, Calcium 8.4 L 03/05/23 06:04: POC Glucose 129 H Micro: Microbiology 03/01/23 12:45 Wound - Right Foot Gram Stain - Final 03/01/23 12:45 Wound - Right Foot Wound Culture - Final Staphylococcus aureus Streptococcus agalactiae (B) Proteus penneri 03/01/23 12:45 Wound - Right Foot Anaerobic Culture - Preliminary Checking for anaerobes, further studies to follow. 03/02/23 14:10 Bone - 5th Toe Gram Stain - Final 03/02/23 14:10 Bone - 5th Toe Wound Culture - Preliminary Beta streptococcus Gram negative elizabeth 03/02/23 14:10 Bone - 5th Toe Anaerobic Culture - Preliminary Checking for anaerobes, further studies to follow. 03/02/23 14:06 Bone - 5th Toe Gram Stain - Final 03/02/23 14:06 Bone - 5th Toe Wound Culture - Preliminary 03/02/23 14:06 Bone - 5th Toe Anaerobic Culture - Preliminary Checking for anaerobes, further studies to follow. 03/01/23 15:15 Blood Culture (Wb) - Anticubital Left Blood Culture - Preliminary No growth in 48 hours. 03/01/23 14:40 Blood Culture (Wb) - Anticubital Left Blood Culture - Preliminary No growth in 48 hours. Physical Exam Narrative General: Alert, Oriented x3, Cooperative, No apparent distress HEENT: Atraumatic, PERRLA, EOMI, Normocephalic Oral: Moist Mucosa Neck: Supple, No JVD Lungs: Diminished, Normal air movement, No rhonchi, No wheeze, No rales Cardiovascular: Regular rate, Regular Rhythm, Normal S1, Normal S2, No murmurs Abdomen: Soft, Non Tender, Non-Distended, No Hepato-splenomegaly Extremities: No edema, Capillary Refill Less than 3 Seconds Skin: Right lower extremity wound dressed Musculoskeletal: No Tenderness to Palpation of Joints or Extremities Neurological: Cranial nerves II-XII grossly intact, Motor Exam 5/5 strength throughout, Sensory exam intact to light touch and pain Psych/Mental Status: Normal Affect, Appropriate Assessment & Plan Assessment/Plan (1) Type 2 diabetes mellitus with foot ulcer: (2) Cellulitis of right lower limb: (3) Osteomyelitis: PLAN: Plan 1. Type 2 diabetes with diabetic foot ulcer and osteomyelitis of her right fifth metatarsal and neuropathy ? She did have what appeared to be an anaphylactic reaction to Zosyn ? We will consult infectious disease for antibiotic recommendations, triggers with MSSA and Proteus as well as strep agalactiae ? MRI with osteomyelitis, status post operative intervention 03/02/2023 ? We will continue with insulin long-acting and sliding scale and make adjustments as necessary ? Accu-Cheks ACHS ? We will hold her home diabetic medications ? Continue with Lyrica ? PT/OT for evaluation and possible placement 2. HTN/HLD/peripheral artery disease ? Blood pressure are stable ? Can resume her home blood pressure medications ? We will hold aspirin secondary to possible surgical intervention ? Continue cilostazol, it appears her last ABIs were done in 2018 we will repeat ? Continue with statin 3. Hypothyroidism ? Stable ? Continue with Synthroid 4. GERD ? Stable ? Continue with PPI 5. Anxiety/depression ? Stable ? Continue with her home medications DVT: Lovenox Charges/Coding Visit Charges Inpatient E&M: 18488 Subs Hosp L2
[2023-03-05] MEDS: Insulin Lispro 100 UNIT/ML INSULN.PEN SC ×2 (11:06→21:08)
[2023-03-05] MEDS: Ferrous Sulfate 325 MG Tablet PO (11:06)
[2023-03-05] MEDS: DAKIN'S SOL HALF STRENGTH (=0.25%) 1 APPLIC TOPICAL (11:06)
[2023-03-05 11:29] LABS: Bedside Glucose 169 mg/dL (74-106)
--- NOTE | 2023-03-05 11:31 | PN_ITS ---
Subjective Subjective Patient was seen this morning for follow up on right foot. She is resting, sitting in chair, no complaint. She is asking if she can go to the TCU. Objective Data Objective Data Vital Signs: Vital Signs Temp Pulse Resp BP Pulse Ox O2 Del Method O2 Flow Rate 98.1 F 60 16 119/73 95 Room Air 6 03/05/23 11:25 03/05/23 11:25 03/05/23 11:25 03/05/23 11:25 03/05/23 11:25 03/05/23 11:25 03/02/23 14:20 Oxygen Flow Rate (L/min) 6 Oxygen Delivery Method Room Air Weight: 110.8 kg Body Mass Index (BMI) 37.1 Intake & Output: Intake and Output for Last 24 Hours 03/03/23 03/04/23 03/05/23 23:59 23:59 23:59 Intake Total 1877.5 / 2277.5 1950 / 2150 1625 / 1625 Output Total 3350 / 3650 3800 / 4725 2075 / 2075 Balance -1472.5 / -1372.5 -1850 / -2575 -450 / -450 Lab / Micro Data Result Diagrams: 03/05/23 05:54 03/05/23 05:54 Labs: Laboratory Results - last 24 hr 03/04/23 16:08: POC Glucose 122 H 03/04/23 21:57: POC Glucose 182 H 03/04/23 23:33: Vancomycin Trough 17.0 H 03/05/23 05:54: WBC 5.1, RBC 3.74 L, Hgb 10.3 L, Hct 33.0 L, MCV 88.2, MCH 27.5, MCHC 31.2 L, RDW Std Deviation 44.0 H, RDW Coeff of Kami 13.6, Plt Count 331, MPV 8.7, Immature Gran % (Auto) 0.400, Neut % (Auto) 58.2, Lymph % (Auto) 25.2, [place] % (Auto) 11.5 H, Eos % (Auto) 4.1, Baso % (Auto) 0.6, Absolute Neuts (auto) 3.0, Absolute Lymphs (auto) 1.29, Nucleated RBC % 0 03/05/23 05:54: Sodium 141, Potassium 4.1, Chloride 104, Carbon Dioxide 33.0 H, Anion Gap 4 L, BUN 19 H, Creatinine 0.62, Estim Creat Clear Calc 99.77, Est GFR (MDRD) Af Amer 126, Est GFR (MDRD) Non-Af 105, BUN/Creatinine Ratio 30.5 H, Glucose 137 H, Calcium 8.4 L 03/05/23 06:04: POC Glucose 129 H 03/05/23 11:04: POC Glucose 169 H Micro: Microbiology 03/02/23 14:10 Bone - 5th Toe Gram Stain - Final 03/02/23 14:10 Bone - 5th Toe Wound Culture - Final Streptococcus agalactiae (B) Pseudomonas aeruginosa 03/02/23 14:10 Bone - 5th Toe Anaerobic Culture - Preliminary Checking for anaerobes, further studies to follow. 03/02/23 14:06 Bone - 5th Toe Gram Stain - Final 03/02/23 14:06 Bone - 5th Toe Wound Culture - Preliminary Strep anginosus Streptococcus agalactiae (B) 03/02/23 14:06 Bone - 5th Toe Anaerobic Culture - Preliminary Checking for anaerobes, further studies to follow. 03/01/23 12:45 Wound - Right Foot Gram Stain - Final 03/01/23 12:45 Wound - Right Foot Wound Culture - Final Staphylococcus aureus Streptococcus agalactiae (B) Proteus penneri 03/01/23 12:45 Wound - Right Foot Anaerobic Culture - Preliminary Checking for anaerobes, further studies to follow. 03/01/23 15:15 Blood Culture (Wb) - Anticubital Left Blood Culture - Preliminary No growth in 48 hours. 03/01/23 14:40 Blood Culture (Wb) - Anticubital Left Blood Culture - Preliminary No growth in 48 hours. Physical Exam Narrative Left foot s/p left 5th toe and 5th met head amputation - wound is health and viable, bleeding controlled, erythema to foot with further improvement, no maloder, no fluctuance, no crepitus present - CFT < 2 seconds to remaining toes, no evidence of complication at this time. Const alert, oriented x3 and no apparent distress Assessment & Plan Assessment/Plan (1) Cellulitis of right lower limb: (2) Diabetic foot ulcer: (3) Osteomyelitis: (4) Neuropathy: (5) Type 2 diabetes mellitus with foot ulcer: PLAN: Plan s/p left foot 5th toe and 5th metatarsal head amputation on 03/02/23 - site continues to heal and improve. Patient on IV antibiotic therapy per Infectious Disease - surgical culture results pending. Wound care: Dakins wet to dry gauze dressing changes daily - will likely plan for wound vac in future. No weightbearing right foot. LEAS for further evaluation of arterial flow - reviewed results, some PVD noted - vascular surgery consulted. Hospital medicine following patient as well. Podiatry will continue to follow patient.
[2023-03-05 16:24] LABS: Bedside Glucose 142 mg/dL (74-106)
[2023-03-05] MEDS: Atorvastatin Calcium 80 MG Tablet PO (21:02)
[2023-03-05 22:21] LABS: Bedside Glucose 160 mg/dL (74-106)
[2023-03-06] VITALS (7 sets, daily range): BP systolic 119–149; BP diastolic 63–76; PULSE 59–73; RESP 16–18; TEMP 36.7–36.8; O2SAT 95–100
[2023-03-06] MEDS: Levothyroxine 175 MCG Tablet PO (06:25)
[2023-03-06] MEDS: metroNIDAZOLE 500 MG Tablet PO ×3 (06:25→21:05)
[2023-03-06] MEDS: Pregabalin 75 MG Capsule 150 MG PO ×3 (06:25→21:05)
--- NOTE | 2023-03-06 06:30 | NURSING ---
started cefapime @ 0620 and pt immediately c/o pain and discomfort w/iv leaking. iv dc'd. 3 attempts to insert new iv failed. dr lemus notifed and picc/midline requested.
--- NOTE | 2023-03-06 07:06 | PCM.PROGNOTE ---
Subjective Subjective Patient was seen this morning for follow up on right foot. She is resting comfortably in bed, no complaints. No f/c/n/v. Objective Data Objective Data Vital Signs: Vital Signs Temp Pulse Resp BP Pulse Ox O2 Del Method O2 Flow Rate 98.1 F 59 L 18 149/67 H 96 Room Air 6 03/06/23 02:15 03/06/23 02:15 03/06/23 02:15 03/06/23 02:15 03/06/23 02:15 03/06/23 02:15 03/02/23 14:20 Oxygen Flow Rate (L/min) 6 Oxygen Delivery Method Room Air Weight: 110.8 kg Body Mass Index (BMI) 37.1 Intake & Output: Intake and Output for Last 24 Hours 03/04/23 03/05/23 03/06/23 23:59 23:59 23:59 Intake Total 1950 / 2150 4236.75 / 4236.75 275 / 275 Output Total 3800 / 4725 4775 / 4775 Balance -1850 / -2575 -538.25 / -538.25 275 / 275 Lab / Micro Data Result Diagrams: 03/05/23 05:54 03/05/23 05:54 Labs: Laboratory Results - last 24 hr 03/05/23 11:04: POC Glucose 169 H 03/05/23 16:06: POC Glucose 142 H 03/05/23 21:06: POC Glucose 160 H Micro: Microbiology 03/02/23 14:06 Bone - 5th Toe Gram Stain - Final 03/02/23 14:06 Bone - 5th Toe Wound Culture - Preliminary Strep anginosus Streptococcus agalactiae (B) Gram negative elizabeth 03/02/23 14:06 Bone - 5th Toe Anaerobic Culture - Preliminary Checking for anaerobes, further studies to follow. 03/02/23 14:10 Bone - 5th Toe Gram Stain - Final 03/02/23 14:10 Bone - 5th Toe Wound Culture - Final Streptococcus agalactiae (B) Pseudomonas aeruginosa 03/02/23 14:10 Bone - 5th Toe Anaerobic Culture - Preliminary Checking for anaerobes, further studies to follow. 03/01/23 12:45 Wound - Right Foot Gram Stain - Final 03/01/23 12:45 Wound - Right Foot Wound Culture - Final Staphylococcus aureus Streptococcus agalactiae (B) Proteus penneri 03/01/23 12:45 Wound - Right Foot Anaerobic Culture - Preliminary Checking for anaerobes, further studies to follow. 03/01/23 15:15 Blood Culture (Wb) - Anticubital Left Blood Culture - Preliminary No growth in 48 hours. 03/01/23 14:40 Blood Culture (Wb) - Anticubital Left Blood Culture - Preliminary No growth in 48 hours. Physical Exam Narrative Left foot s/p left 5th toe and 5th met head amputation - wound is health and viable, bleeding controlled, erythema to foot with further improvement and is resolved at this time, no maloder, no fluctuance, no crepitus present - CFT < 2 seconds to remaining toes, no evidence of complication at this time. Const alert, oriented x3 and no apparent distress Assessment & Plan Assessment/Plan (1) Cellulitis of right lower limb: (2) Diabetic foot ulcer: (3) Osteomyelitis: (4) Neuropathy: (5) Type 2 diabetes mellitus with foot ulcer: PLAN: Plan s/p left foot 5th toe and 5th metatarsal head amputation on 03/02/23 - site continues to heal and improve. Patient on IV antibiotic therapy per Infectious Disease - surgical culture results pending. Wound care: Dakins wet to dry gauze dressing changes daily - will proceed with wound vac. No weightbearing right foot. LEAS for further evaluation of arterial flow - reviewed results, some PVD noted - vascular surgery consulted. Hospital medicine following patient as well. Podiatry will continue to follow patient.
[2023-03-06 07:23] LABS: Bedside Glucose 125 mg/dL (74-106)
--- NOTE | 2023-03-06 07:36 | NURSING ---
Patient is without working IV. SID Barnett messaged Dr. Tyler to see if we could get a PICC since the patient has osteomyletis.
[2023-03-06] MEDS: 0.9% Saline Lock 10 ML Syringe IV ×2 (08:17→08:34)
[2023-03-06] MEDS: Juven (unflavored) Packet 1 PACKET PO ×2 (08:29→16:48)
--- NOTE | 2023-03-06 08:29 | WOUNDNOTE ---
wound photo: right foot
[2023-03-06] MEDS: DAKIN'S SOL HALF STRENGTH (=0.25%) 1 APPLIC TOPICAL (08:34)
[2023-03-06] MEDS: Enoxaparin 40 MG/0.4 ML Syringe SC (08:36)
[2023-03-06] MEDS: Pantoprazole Sodium 40 MG Tablet PO (08:36)
--- NOTE | 2023-03-06 09:22 | CASEMGMT ---
SID CM into pt room, pt sitting up in chair. Pt states she did discuss with her dtr about going to her home to be cared for but she has a large dog and there is concern for a fall hazard. Pt states she would like to go to [facility]CU. Pt aware that SW will be in to discuss with her. Updated SW.
--- NOTE | 2023-03-06 09:30 | CASEMGMT ---
Social Work Referral for long term placement per RN CM. This social sciences department chair met with patient in room. Introduced self and social sciences department chair role. Patient agreeable to speak with this social sciences department chair. This social sciences department chair broached conversation of long term placement. Patient request for a referral to be made to the transitional care unit at [facility] and is declining a list of long term that are local to patient geographical region. This social sciences department chair educating patient on acceptance and insurance approval process, patient voiced understanding to having to have a pre-cert for insurance to cover long term. Telephone call to [facility]. [facility] reviewed patient case and is reporting to be able to accept patient. [facility] to wait to start precert as patient is not medically cleared. This social sciences department chair informed patient that patient has been accepted to TCU and is now waiting on medical clearance and pre-cert. Social Work to continue to follow. PLAN: TCU, pending pre-cert and medical clearance. Migdalia RINALDI, RUDDY-S
[2023-03-06] MEDS: Insulin Glargine-YFGN 100 UNIT/ML Pen 30 UNIT SC ×2 (09:51→21:06)
[2023-03-06] MEDS: Paroxetine 20 MG Tablet 40 MG PO (09:53)
[2023-03-06] MEDS: Nystatin Powder 15gm Bottle 1 APPLIC TOPICAL ×2 (09:54→21:08)
[2023-03-06] MEDS: Metoprolol(XL)Succ 200 MG Tablet PO (10:05)
[2023-03-06] MEDS: Losartan Potassium 100 MG Tablet PO (10:06)
[2023-03-06] MEDS: oxyCODONE 5 MG Tablet PO ×2 (10:10→16:53)
--- NOTE | 2023-03-06 10:18 | PN.HOSP_ITS ---
Subjective Subjective Doing well, no issues overnight Objective Data Objective Data Vital Signs: Vital Signs Temp Pulse Resp BP Pulse Ox O2 Del Method O2 Flow Rate 98.3 F 73 18 119/67 95 Room Air 6 03/06/23 08:31 03/06/23 10:05 03/06/23 08:31 03/06/23 10:05 03/06/23 08:31 03/06/23 09:30 03/02/23 14:20 Oxygen Flow Rate (L/min) 6 Oxygen Delivery Method Room Air Weight: 244 lb 4.355 oz Body Mass Index (BMI) 37.1 Intake & Output: Intake and Output for Last 24 Hours 03/05/23 03/06/23 03/07/23 03:59 03:59 03:59 Intake Total 1750 / 1750 4036.75 / 4036.75 100 / 100 Output Total 4425 / 4425 3850 / 3850 600 / 600 Balance -2675 / -2675 186.75 / 186.75 -500 / -500 Lab / Micro Data Result Diagrams: 03/05/23 05:54 03/05/23 05:54 Labs: Laboratory Results - last 24 hr 03/05/23 11:04: POC Glucose 169 H 03/05/23 16:06: POC Glucose 142 H 03/05/23 21:06: POC Glucose 160 H 03/06/23 06:28: POC Glucose 125 H Micro: Microbiology 03/02/23 14:06 Bone - 5th Toe Gram Stain - Final 03/02/23 14:06 Bone - 5th Toe Wound Culture - Final Strep anginosus Streptococcus agalactiae (B) Pseudomonas aeruginosa 03/02/23 14:06 Bone - 5th Toe Anaerobic Culture - Preliminary Checking for anaerobes, further studies to follow. 03/02/23 14:10 Bone - 5th Toe Gram Stain - Final 03/02/23 14:10 Bone - 5th Toe Wound Culture - Final Streptococcus agalactiae (B) Pseudomonas aeruginosa 03/02/23 14:10 Bone - 5th Toe Anaerobic Culture - Preliminary Checking for anaerobes, further studies to follow. 03/01/23 12:45 Wound - Right Foot Gram Stain - Final 03/01/23 12:45 Wound - Right Foot Wound Culture - Final Staphylococcus aureus Streptococcus agalactiae (B) Proteus penneri 03/01/23 12:45 Wound - Right Foot Anaerobic Culture - Preliminary Checking for anaerobes, further studies to follow. 03/01/23 15:15 Blood Culture (Wb) - Anticubital Left Blood Culture - Pr eliminary No growth in 48 hours. 03/01/23 14:40 Blood Culture (Wb) - Anticubital Left Blood Culture - Preliminary No growth in 48 hours. Physical Exam Narrative General: Alert, Oriented x3, Cooperative, No apparent distress HEENT: Atraumatic, PERRLA, EOMI, Normocephalic Oral: Moist Mucosa Neck: Supple, No JVD Lungs: Diminished, Normal air movement, No rhonchi, No wheeze, No rales Cardiovascular: Regular rate, Regular Rhythm, Normal S1, Normal S2, No murmurs Abdomen: Soft, Non Tender, Non-Distended, No Hepato-splenomegaly Extremities: No edema, Capillary Refill Less than 3 Seconds Skin: Right lower extremity wound dressed Musculoskeletal: No Tenderness to Palpation of Joints or Extremities Neurological: Cranial nerves II-XII grossly intact, Motor Exam 5/5 strength throughout, Sensory exam intact to light touch and pain Psych/Mental Status: Normal Affect, Appropriate Assessment & Plan Assessment/Plan (1) Type 2 diabetes mellitus with foot ulcer: (2) Cellulitis of right lower limb: (3) Osteomyelitis: PLAN: Plan 1. Type 2 diabetes with diabetic foot ulcer and osteomyelitis of her right fifth metatarsal and neuropathy ? She did have what appeared to be an anaphylactic reaction to Zosyn ? We will consult infectious disease for antibiotic recommendations, cultures with MSSA and Proteus as well as strep agalactiae ? MRI with osteomyelitis, status post operative intervention 03/02/2023 ? We will continue with insulin long-acting and sliding scale and make adjustments as necessary ? Accu-Cheks ACHS ? We will hold her home diabetic medications ? Continue with Lyrica ? PT/OT will likely need placement 2. HTN/HLD/peripheral artery disease ? Blood pressure are stable ? Can resume her home blood pressure medications ? We will hold aspirin secondary to possible surgical intervention ? Continue cilostazol, ABIs here show calcification, will follow-up with vascular surgery as an outpatient ? Continue with statin 3. Hypothyroidism ? Stable ? Continue with Synthroid 4. GERD ? Stable ? Continue with PPI 5. Anxiety/depression ? Stable ? Continue with her home medications DVT: Lovenox Charges/Coding Visit Charges Inpatient E&M: 65883 Subs Hosp L2
[2023-03-06 11:39] LABS: Bedside Glucose 184 mg/dL (74-106)
[2023-03-06] MEDS: Ferrous Sulfate 325 MG Tablet PO (11:49)
[2023-03-06] MEDS: Insulin Lispro 100 UNIT/ML INSULN.PEN SC ×3 (11:49→21:06)
--- NOTE | 2023-03-06 13:55 | CASEMGMT ---
Pt to dc on oral antibiotics, TCU updated per SW and precert to be started.
--- NOTE | 2023-03-06 13:58 | PCM.PN.ID ---
Physical Exam Narrative Feeling better, no fever, no n/v/d. Const alert and no apparent distress General Appearance: cooperative Resp normal air movement and clear to auscultation bilaterally Cardio regular rate and regular rhythm GI soft to palpation, non-tender and non-distended Skin Skin Narrative: foot wrapped ID ID: Route of nutrition/ use of supplements: [] Nutritional Intake: [] IV Site: [] Song Catheter: [] Assessment & Plan Assessment/Plan (1) Diabetic foot ulcer: (2) Osteomyelitis: PLAN: R foot osteo seen on MRI. Dr. Navarro consulted. Wound cx with GBS, PsA, strep. Wound cx from 01/2023 with mssa and enterobacter. OR 03/02/[address] Navarro for 5th toe amp and partial 5th ray resection. Had reaction with zosyn in ED. Cont with cefepime/flagyl for now. Clearance cx (+). Will plan on 37 more days po levaquin at discharge, QTC here 453, counseled re: risk of diarrhea, peripheral neuropathy, tendonopathy. ID followup in 2 weeks. Will follow, d/w Dr. Tyler
[2023-03-06 17:14] LABS: Bedside Glucose 170 mg/dL (74-106)
[2023-03-06] MEDS: Atorvastatin Calcium 80 MG Tablet PO (21:09)
[2023-03-06 21:31] LABS: Bedside Glucose 178 mg/dL (74-106)
[2023-03-07] MEDS: oxyCODONE 5 MG Tablet PO (01:17)
[2023-03-07 03:00] VITALS: BP 147/59; PULSE 59; RESP 16; TEMP 36.7; O2SAT 96
[2023-03-07] MEDS: metroNIDAZOLE 500 MG Tablet PO (05:51)
[2023-03-07] MEDS: Levothyroxine 175 MCG Tablet PO (05:51)
[2023-03-07] MEDS: Pregabalin 75 MG Capsule 150 MG PO (05:54)
[2023-03-07 06:05] LABS: Absolute Neutrophil Count 3.1 X10^3/uL (2.0-7.7); Basophil# 0.03 X10^3/uL; Basophil% 0.5 % (0-1); Eosinophil# 0.16 X10^3/uL; Eosinophils% 2.9 % (0-5); Hemoglobin 10.4 g/dL (12.0-15.0); Lymphocyte % 31.1 % (19-41); Mean Corp Hgb Conc 31.5 g/dL (32-36); Mean Corpuscular Hgb 27.7 pg (27.0-32.0); Mean Corpuscular Volume 87.8 fL (81-99); Mean Platelet Vol. 8.6 fl (6.2-12.0); Monocyte# 0.47 X10^3/uL; Monocyte% 8.6 % (0-10); NRBC Flagged by Analyzer 0 % (0-5); Neutrophil # 3.08 X10^3/uL (2.7-7.7); Neutrophil % 56.4 % (47-70); Platelet Count 360 K/mm3 (150-450); RBC Distribution Width CV 14.2 % (11.6-14.6); RBC Distribution Width SD 44.8 fl (35.1-43.9); Red Blood Count 3.76 M/mm3 (4.2-5.4); White Blood Count 5.5 K/mm3 (4.4-11.0)
[2023-03-07 06:54] LABS: Anion Gap 5 (5-15); BUN 24 mg/dL (7-18); BUN/Creat Ratio 45.5 RATIO (10-20); Calcium,Total 8.6 mg/dL (8.5-10.1); Chloride 104 mmol/L (98-107); Creatinine, Serum 0.53 mg/dL (0.55-1.02); EST Glomerular Filtration Rate 126 mL/min (>60); Est Glom Filt Rate - Afr Amer 153 mL/min (>60); Estimated Creatinine Clearance 116.71 ml/min; Glucose 163 mg/dL (74-106); Potassium 3.4 mmol/L (3.5-5.1); Sodium Level 140 mmol/L (136-145)
[2023-03-07 06:56] LABS: Bedside Glucose 156 mg/dL (74-106)
[2023-03-07] MEDS: Juven (unflavored) Packet 1 PACKET PO (08:36)
[2023-03-07 08:39] VITALS: BP 125/72; PULSE 65; RESP 16; TEMP 36.5; O2SAT 95
--- NOTE | 2023-03-07 08:56 | PN.HOSP_ITS ---
Subjective Subjective Doing well, no issues overnight Objective Data Objective Data Vital Signs: Vital Signs Temp Pulse Resp BP Pulse Ox O2 Del Method O2 Flow Rate 97.7 F L 65 16 125/72 H 95 Room Air 6 03/07/23 08:39 03/07/23 08:39 03/07/23 08:39 03/07/23 08:39 03/07/23 08:39 03/07/23 08:46 03/02/23 14:20 Oxygen Flow Rate (L/min) 6 Oxygen Delivery Method Room Air Weight: 244 lb 4.355 oz Body Mass Index (BMI) 37.1 Intake & Output: Intake and Output for Last 24 Hours 03/06/23 03/07/23 03/08/23 03:59 03:59 03:59 Intake Total 4036.75 / 4036.75 1475 / 1475 600 / 600 Output Total 3850 / 3850 3050 / 3050 300 / 300 Balance 186.75 / 186.75 -1575 / -1575 300 / 300 Lab / Micro Data Result Diagrams: 03/07/23 05:25 03/07/23 05:25 Labs: Laboratory Results - last 24 hr 03/06/23 11:21: POC Glucose 184 H 03/06/23 16:44: POC Glucose 170 H 03/06/23 21:04: POC Glucose 178 H 03/07/23 05:25: WBC 5.5, RBC 3.76 L, Hgb 10.4 L, Hct 33.0 L, MCV 87.8, MCH 27.7, MCHC 31.5 L, RDW Std Deviation 44.8 H, RDW Coeff of Kami 14.2, Plt Count 360, MPV 8.6, Immature Gran % (Auto) 0.500, Neut % (Auto) 56.4, Lymph % (Auto) 31.1, [place] % (Auto) 8.6, Eos % (Auto) 2.9, Baso % (Auto) 0.5, Absolute Neuts (auto) 3.1, Absolute Lymphs (auto) 1.70, Nucleated RBC % 0 03/07/23 05:25: Sodium 140, Potassium 3.4 L, Chloride 104, Carbon Dioxide 31.0, Anion Gap 5, BUN 24 H, Creatinine 0.53 L, Estim Creat Clear Calc 116.71, Est GFR (MDRD) Af Amer 153, Est GFR (MDRD) Non-Af 126, BUN/Creatinine Ratio 45.5 H, Glucose 163 H, Calcium 8.6 03/07/23 05:59: POC Glucose 156 H Micro: Microbiology 03/01/23 15:15 Blood Culture (Wb) - Anticubital Left Blood Culture - Final No growth in 5 days. 03/01/23 14:40 Blood Culture (Wb) - Anticubital Left Blood Culture - Final No growth in 5 days. 03/02/23 14:06 Bone - 5th Toe Gram Stain - Final 03/02/23 14:06 Bone - 5th Toe Wound Culture - Final Strep anginosus Streptococcus agalactiae (B) Pseudomonas aeruginosa 03/02/23 14:06 Bone - 5th Toe Anaerobic Culture - Preliminary Checking for anaerobes, further studies to follow. 03/02/23 14:10 Bone - 5th Toe Gram Stain - Final 03/02/23 14:10 Bone - 5th Toe Wound Culture - Final Streptococcus agalactiae (B) Pseudomonas aeruginosa 03/02/23 14:10 Bone - 5th Toe Anaerobic Culture - Preliminary Checking for anaerobes, further studies to follow. 03/01/23 12:45 Wound - Right Foot Gram Stain - Final 03/01/23 12:45 Wound - Right Foot Wound Culture - Final Staphylococcus aureus Streptococcus agalactiae (B) Proteus penneri 03/01/23 12:45 Wound - Right Foot Anaerobic Culture - Preliminary Checking for anaerobes, further studies to follow. Physical Exam Narrative General: Alert, Oriented x3, Cooperative, No apparent distress HEENT: Atraumatic, PERRLA, EOMI, Normocephalic Oral: Moist Mucosa Neck: Supple, No JVD Lungs: Diminished, Normal air movement, No rhonchi, No wheeze, No rales Cardiovascular: Regular rate, Regular Rhythm, Normal S1, Normal S2, No murmurs Abdomen: Soft, Non Tender, Non-Distended, No Hepato-splenomegaly Extremities: No edema, Capillary Refill Less than 3 Seconds Skin: Right lower extremity wound dressed with wound VAC in place Musculoskeletal: No Tenderness to Palpation of Joints or Extremities Neurological: Cranial nerves II-XII grossly intact, Motor Exam 5/5 strength throughout, Sensory exam intact to light touch and pain Psych/Mental Status: Normal Affect, Appropriate Assessment & Plan Assessment/Plan (1) Type 2 diabetes mellitus with foot ulcer: (2) Cellulitis of right lower limb: (3) Osteomyelitis: PLAN: Plan 1. Type 2 diabetes with diabetic foot ulcer and osteomyelitis of her right fifth metatarsal and neuropathy ? She did have what appeared to be an anaphylactic reaction to Zosyn ? We will consult infectious disease for antibiotic recommendations, cultures with MSSA and Proteus as well as strep agalactiae ? MRI with osteomyelitis, status post operative intervention 03/02/2023 ? We will continue with insulin long-acting and sliding scale and make adjustments as necessary ? Accu-Cheks ACHS ? We will hold her home diabetic medications ? Continue with Lyrica ? PT/OT will likely need placement 2. HTN/HLD/peripheral artery disease ? Blood pressure are stable ? Can resume her home blood pressure medications ? We will hold aspirin secondary to possible surgical intervention ? Continue cilostazol, ABIs here show calcification, will follow-up with vascular surgery as an outpatient ? Continue with statin 3. Hypothyroidism ? Stable ? Continue with Synthroid 4. GERD ? Stable ? Continue with PPI 5. Anxiety/depression ? Stable ? Continue with her home medications DVT: Lovenox Charges/Coding Visit Charges Inpatient E&M: 45930 Subs Hosp L2
--- NOTE | 2023-03-07 09:02 | CASEMGMT ---
Addendum entered by Radha Quintana 03/07/23 09:07: Patient requested for this social sciences instructor to contact patient daughterBambi about discharge plan. Telephone call to Lisseth Lacya updated on discharge and is agreeable. Original Note: Social Work Notified by Faith PONCE that pre-cert has been obtained and patient is able to admit today. This social sciences instructor communicating above information to patient, physician, and nursing staff. HAVEN: TCU, pending discharge being completed. Migdalia RINALDI, SOCORRO
[2023-03-07] MEDS: Enoxaparin 40 MG/0.4 ML Syringe SC (10:06)
[2023-03-07] MEDS: Losartan Potassium 100 MG Tablet PO (10:06)
[2023-03-07] MEDS: Nystatin Powder 15gm Bottle 1 APPLIC TOPICAL (10:07)
[2023-03-07] MEDS: Paroxetine 20 MG Tablet 40 MG PO (10:07)
[2023-03-07] MEDS: Pantoprazole Sodium 40 MG Tablet PO (10:07)
[2023-03-07] MEDS: Insulin Glargine-YFGN 100 UNIT/ML Pen 30 UNIT SC (10:08)
[2023-03-07 10:09] VITALS: BP 125/72; PULSE 65
[2023-03-07] MEDS: Metoprolol(XL)Succ 200 MG Tablet PO (10:09)
[2023-03-07] MEDS: Potassium Chloride Oral Tablet 20 MEQ 40 MEQ PO (10:13)
--- NOTE | 2023-03-07 10:40 | PN_ITS ---
Subjective Subjective Patient seen resting in chair bedside this AM with feet elevated. Wound VAC in place to the right foot amputation site. Patient states she is doing well and is ready to go to the TCU later today. Objective Data Objective Data Vital Signs: Vital Signs Temp Pulse Resp BP Pulse Ox O2 Del Method O2 Flow Rate 97.7 F L 65 16 125/72 H 95 Room Air 6 03/07/23 08:39 03/07/23 10:09 03/07/23 08:39 03/07/23 10:09 03/07/23 08:39 03/07/23 08:46 03/02/23 14:20 Oxygen Flow Rate (L/min) 6 Oxygen Delivery Method Room Air Weight: 110.8 kg Body Mass Index (BMI) 37.1 Intake & Output: Intake and Output for Last 24 Hours 03/05/23 03/06/23 03/07/23 23:59 23:59 23:59 Intake Total 4236.75 / 4236.75 1750 / 1750 600 / 600 Output Total 4775 / 4775 2750 / 2750 600 / 600 Balance -538.25 / -538.25 -1000 / -1000 0 / 0 Lab / Micro Data Result Diagrams: 03/07/23 05:25 03/07/23 05:25 Labs: Laboratory Results - last 24 hr 03/06/23 11:21: POC Glucose 184 H 03/06/23 16:44: POC Glucose 170 H 03/06/23 21:04: POC Glucose 178 H 03/07/23 05:25: WBC 5.5, RBC 3.76 L, Hgb 10.4 L, Hct 33.0 L, MCV 87.8, MCH 27.7, MCHC 31.5 L, RDW Std Deviation 44.8 H, RDW Coeff of Kami 14.2, Plt Count 360, MPV 8.6, Immature Gran % (Auto) 0.500, Neut % (Auto) 56.4, Lymph % (Auto) 31.1, [place] % (Auto) 8.6, Eos % (Auto) 2.9, Baso % (Auto) 0.5, Absolute Neuts (auto) 3.1, Absolute Lymphs (auto) 1.70, Nucleated RBC % 0 03/07/23 05:25: Sodium 140, Potassium 3.4 L, Chloride 104, Carbon Dioxide 31.0, Anion Gap 5, BUN 24 H, Creatinine 0.53 L, Estim Creat Clear Calc 116.71, Est GFR (MDRD) Af Amer 153, Est GFR (MDRD) Non-Af 126, BUN/Creatinine Ratio 45.5 H, Glucose 163 H, Calcium 8.6 03/07/23 05:59: POC Glucose 156 H Micro: Microbiology 03/01/23 12:45 Wound - Right Foot Gram Stain - Final 03/01/23 12:45 Wound - Right Foot Wound Culture - Final Staphylococcus aureus Streptococcus agalactiae (B) Proteus penneri 03/01/23 12:45 Wound - Right Foot Anaerobic Culture - Preliminary Anaerobic cocci Anaerobic cocci#2 03/02/23 14:10 Bone - 5th Toe Gram Stain - Final 03/02/23 14:10 Bone - 5th Toe Wound Culture - Final Streptococcus agalactiae (B) Pseudomonas aeruginosa 03/02/23 14:10 Bone - 5th Toe Anaerobic Culture - Preliminary Gram negative elizabeth Anaerobic cocci 03/02/23 14:06 Bone - 5th Toe Gram Stain - Final 03/02/23 14:06 Bone - 5th Toe Wound Culture - Final Strep anginosus Streptococcus agalactiae (B) Pseudomonas aeruginosa 03/02/23 14:06 Bone - 5th Toe Anaerobic Culture - Final Anaerobic cocci 03/01/23 15:15 Blood Culture (Wb) - Anticubital Left Blood Culture - Final No growth in 5 days. 03/01/23 14:40 Blood Culture (Wb) - Anticubital Left Blood Culture - Final No growth in 5 days. Physical Exam Narrative Left foot s/p left 5th toe and 5th met head amputation - wound is health and viable, bleeding controlled, erythema to foot with further improvement and is resolved at this time, no maloder, no fluctuance, no crepitus present - CFT < 2 seconds to remaining toes, no evidence of complication at this time. Const alert, oriented x3 and no apparent distress HEENT normocephalic Eyes General Eye: normal appearance of both eyes Neck General: normal visual inspection Lymph Lymphatic: no lymphadenopathy noted and no lymphedema noted Resp normal respiratory effort Cardio regular rate and regular rhythm Extremity normal capillary refill, no joint enlargement, no calf tenderness and no pedal edema Skin skin turgor normal and no jaundice Neuro moves all extremities Assessment & Plan Assessment/Plan (1) Cellulitis of right lower limb: (2) Diabetic foot ulcer: (3) Osteomyelitis: (4) Neuropathy: (5) Type 2 diabetes mellitus with foot ulcer: PLAN: Plan Patient seen and evaluated s/p left foot 5th toe and 5th metatarsal head amputation on 03/02/23, POD #5- site continues to heal and improve. Patient on IV antibiotic therapy per Infectious Disease - surgical culture results demonstrate strep agalactiae and PsA. Wound care: Wound VAC in place to amputation stump, changed (M, W, F) She is to remain non-weightbearing right foot. LEAS for further evaluation of arterial flow - reviewed results, some PVD noted - vascular surgery consulted. Hospital medicine following patient as well. Podiatry will continue to follow patient.
--- NOTE | 2023-03-07 10:41 | TREXTCAR_ITS ---
Diet Diet Order/Speech Therapy: 03/02/23 14:10 Diet: Consistent Carb - Calorie Controlled Is pt able to select menu?: Yes How many daily calories?: 1800 calorie Routine Orders/Code Status Routine Lab Work: CBC and BMP Code Status: Full Code Wound(s) right outer edge of foot: Wound Type: Neuropathic/Diabetic Foot Ulcer right lateral foot: Wound Type: open surgical wound/incision Dressing Change: wound VAC to the open wound/dry dressing to incision Therapies Weight Bearing: Non weight bearing Physical Therapy: Eval and Treat Occupational Therapy: Eval and Treat Problem/Diagnosis (1) Type 2 diabetes mellitus with foot ulcer: Status: Acute Code(s): E11.621 - Type 2 diabetes mellitus with foot ulcer; L97.509 - Non-pressure chronic ulcer of other part of unspecified foot with unspecified severity (2) Cellulitis of right lower limb: Status: Acute Code(s): L03.115 - Cellulitis of right lower limb (3) Osteomyelitis: Status: Acute Code(s): M86.9 - Osteomyelitis, unspecified Plan 1. Type 2 diabetes with diabetic foot ulcer and osteomyelitis of her right fi fth metatarsal and neuropathy ? She did have what appeared to be an anaphylactic reaction to Zosyn ? We will consult infectious disease for antibiotic recommendations, cultures with MSSA and Proteus as well as strep agalactiae ? MRI with osteomyelitis, status post operative intervention 03/02/2023 ? We will continue with insulin long-acting and sliding scale and make adjustments as necessary ? Accu-Cheks ACHS ? We will hold her home diabetic medications ? Continue with Lyrica ? PT/OT will likely need placement 2. HTN/HLD/peripheral artery disease ? Blood pressure are stable ? Can resume her home blood pressure medications ? We will hold aspirin secondary to possible surgical intervention ? Continue cilostazol, ABIs here show calcification, will follow-up with vascular surgery as an outpatient ? Continue with statin 3. Hypothyroidism ? Stable ? Continue with Synthroid 4. GERD ? Stable ? Continue with PPI 5. Anxiety/depression ? Stable ? Continue with her home medications DVT: Lovenox Allergies/Procedures Done in Hospital Allergies piperacillin [From Zosyn] Allergy (Severe, Verified 03/01/23 10:39) Anaphylaxis tazobactam [From Zosyn] Allergy (Severe, Verified 03/01/23 10:39) Anaphylaxis sulfamethoxazole [From Bactrim] Allergy (Unknown, Verified 03/01/23 13:34) Anaphylaxis trimethoprim [From Bactrim] Allergy (Unknown, Verified 03/01/23 13:34) Anaphylaxis latex Allergy (Verified 03/01/23 09:27) Rash tetanus and diphtheria toxoids [Tetanus&Diphtheria Toxoid] Allergy (Verified 03/01/23 09:27) Anaphylaxis flea medicine Allergy (Uncoded 03/01/23 09:27) Anaphylaxis, Diarrhea Procedures: - (ABIs, status post amputation of fifth metatarsal and toe on the right foot) Type of Care/Length of Stay Estimated LOS: Convalescent Care Less Than 30 days Type of Care Needed: Skilled Rehab Potential: Good Prognosis: Good Additional Orders/Day of Discharge Day of Discharge: 03/07/23 Dietary and Speech Recommendations Dietitian Recommendations/Changes: Will continue 1800 [place] Consistent CHO diet Will order Drew bid to help w/ wound healing. Discharge Plan Admission Admit Date/Time: 03/01/23 11:11 Attending Provider: Macario Tyler Primary Care Provider: Gulshan Early Chi Consulting Providers: Tereso Navarro ; Victorino Mixon ; Pérez Araya Discharge Orders/Prescriptions Prescriptions: New levofloxacin 500 mg tablet 500 mg PO DAILY Qty: 37 0RF Continued celecoxib 200 mg capsule 200 mg PO DAILY montelukast 10 mg tablet 10 mg PO QHS metformin 1,000 mg tablet 1,000 mg PO BID omeprazole 40 mg capsule,delayed release(DR/EC) 40 mg PO DAILY loratadine 10 mg capsule 10 mg PO DAILY cilostazol 100 mg tablet 100 mg PO DAILY levothyroxine 175 mcg tablet 175 mcg PO DAILY aspirin [Adult Low Dose Aspirin] 81 mg tablet,delayed release (DR/EC) 81 mg PO DAILY metoprolol succinate 200 mg tablet extended release 24 hr 200 mg PO DAILY (DME) pen needle, diabetic [BD Ultra-Fine Catalina Pen Needle] 32 gauge x 5/32 needle See Rx Instructions .Route Qty: 100 3RF Rx Instructions: daily potassium chloride 20 MEQ tablet 20 meq PO DAILY paroxetine HCl 40 MG tablet 40 mg PO DAILY pregabalin 150 MG capsule 150 mg PO TID calcium carbonate-vitamin D3 1 EACH tablet 1 ea PO DAILY ferrous sulfate [iron] 325 mg (65 mg iron) Tablet 325 mg PO DAILY albuterol sulfate [ProAir HFA] 90 mcg/actuation Hfa Aerosol Inhaler 1 inh INHALATION Q6H PRN (Reason: SHORTNESS OF BREATH ) rosuvastatin [Crestor] 40 mg Tablet 40 mg PO DAILY multivitamin Tablet 1 tab PO DAILY trazodone 100 mg tablet 200 mg PO QHS glimepiride 4 mg tablet 4 mg PO BID ipratropium bromide 42 mcg (0.06 %) spray,non-aerosol 2 spray INTRANASAL DAILY losartan 100 mg tablet 100 mg PO DAILY vitamin B complex Capsule 1 cap PO DAILY Farxiga 10 mg tablet 10 mg PO DAILY Levemir FlexPen 100 unit/mL (3 mL) insulin pen 55 unit subcut DAILY Mounjaro 2.5 mg/0.5 mL pen injector 2.5 mg subcut WE Referrals / Follow Up: Gulshan Early Chi, MD [Primary Care Provider] - Disposition Disposition (needs filled in before D/C Order can be placed): [facility]
--- NOTE | 2023-03-07 11:11 | CASEMGMT ---
Social Work Telephone call from Faith PONCE. Faith request for patient to bring in own Mounjaro medication from home. This director social welfare communicated above information to both patient and patient daughter, Bambi. PLAN: skilled. Migdalia OPNCE, SOCORRO
--- NOTE | 2023-03-07 11:28 | DS.PCM_ITS ---
Providers Date of Admission: 03/01/23 Primary Care Physician: Dr. Gulshan Early MD Consultations 03/01/23 12:29 Consult: Infectious Disease Routine Consulting Provider: Victorino Mixon Reason for Consult: Diabetic foot infection with anaphylaxis to Zosyn EMERGENT Consult: No Notified: Yes Date Notified: 03/01/23 Time Notified: 13:20 Method of Notification: via answering servicwe Consult: Onc/Wound/premium cancellation clerk Routine Comment: Consult: Podiatry Routine Consulting Provider: Tereso Navarro Reason for Consult: Osteo EMERGENT Consult: No Notified: Yes Date Notified: 03/01/23 Time Notified: 11:18 Method of Notification: ED Physician Initiated 03/03/23 07:35 Consult: Vascular Surgery Routine Consulting Provider: Pérez Araya Reason for Consult: Diabetic pt with PVD and foot ulcer EMERGENT Consult: No Notified: Yes Date Notified: 03/03/23 Time Notified: 07:35 Method of Notification: cortext Comments:: lynn says it was viewed Reason For Visit: OSTEO Diagnosis Discharge Diagnosis (1) Cellulitis of right lower limb: Status: Acute Code(s): L03.115 - Cellulitis of right lower limb (2) Diabetic foot ulcer: Status: Acute Code(s): E11.621 - Type 2 diabetes mellitus with foot ulcer; L97.509 - Non-pressure chronic ulcer of other part of unspecified foot with unspecified severity (3) Osteomyelitis: Status: Acute Code(s): M86.9 - Osteomyelitis, unspecified (4) Neuropathy: Status: Chronic Code(s): G62.9 - Polyneuropathy, unspecified (5) Type 2 diabetes mellitus with foot ulcer: Status: Acute Code(s): E11.621 - Type 2 diabetes mellitus with foot ulcer; L97.509 - Non-pressure chronic ulcer of other part of unspecified foot with unspecified severity Medications at Discharge Home Medications celecoxib 200 mg capsule 200 mg PO DAILY ARTHRITIS/INFLAMMATION 10/18/18 loratadine 10 mg capsule 10 mg PO DAILY ALLERGIES 10/18/18 metformin 1,000 mg tablet 1,000 mg PO BID DIABETES 10/18/18 montelukast 10 mg tablet 10 mg PO QHS ASTHMA/ALLERGIES 10/18/18 omeprazole 40 mg capsule,delayed release 40 mg PO DAILY ACID REFLUX 10/18/18 calcium carbonate 500 mg-vitamin D3 10 mcg (400 unit) tablet 1 ea PO DAILY SUPPLEMENT 10/29/19 paroxetine HCl 40 mg tablet 40 mg PO DAILY DEPRESSION 10/29/19 potassium chloride 20 mEq tablet,extended release(part/cryst) 20 meq PO DAILY SUPPLEMENT 10/29/19 pregabalin 150 mg capsule 150 mg PO TID NERVE PAIN 10/29/19 aspirin 81 mg tablet,delayed release (Adult Low Dose Aspirin) 81 mg PO DAILY HEART HEALTH 07/21/20 cilostazol 100 mg tablet 100 mg PO DAILY CHOLESTEROL 07/21/20 levothyroxine 175 mcg tablet 175 mcg PO DAILY THYROID 07/21/20 metoprolol succinate 200 mg tablet,extended release 24 hr 200 mg PO DAILY BLOOD PRESSURE 07/21/20 albuterol sulfate 90 mcg/actuation aerosol inhaler (ProAir HFA) 1 inh inhalation Q6H PRN SHORTNESS OF BREATH 08/26/22 ferrous sulfate 325 mg (65 mg iron) tablet (iron) 325 mg PO DAILY ANEMIA 08/26/22 rosuvastatin 40 mg tablet (Crestor) 40 mg PO DAILY CHOLESTEROL 08/26/22 pen needle, diabetic 32 gauge x 5/32 (BD Ultra-Fine Catalina Pen Needle) #100 ea 02/13/23 dapagliflozin propanediol 10 mg tablet (Farxiga) 10 mg PO DAILY DIABETES 03/01/23 glimepiride 4 mg tablet 4 mg PO BID DIABETES 03/01/23 insulin detemir U-100 100 unit/mL (3 mL) subcutaneous pen (Levemir FlexPen) 55 unit subcut DAILY DIABETES 03/01/23 ipratropium bromide 42 mcg (0.06 %) nasal spray 2 spray intranasal DAILY NASAL DRAINAGE 03/01/23 losartan 100 mg tablet 100 mg PO DAILY BLOOD PRESSURE 03/01/23 multivitamin 1 tab PO DAILY HEALTH MAINTENANCE 03/01/23 tirzepatide 2.5 mg/0.5 mL subcutaneous pen injector (Mounjaro) 2.5 mg subcut WE DIABETES 03/01/23 trazodone 100 mg tablet 200 mg PO QHS SLEEP 03/01/23 vitamin B complex 1 cap PO DAILY SUPPLEMENT 03/01/23 levofloxacin 500 mg tablet 500 mg PO DAILY #37 tabs 03/06/23 Hospital Course Procedures - (ABIs, fifth toe amputation on the right) Summary of Care Provided Minutes Spent on Discharge: 38 Hospital Course: Per HPI: REMI TREVINO, is a 57 F who presents to the hospital with a right foot osteo.? She has a history of diabetes and was following up with podiatry secondary to a right foot wound that has since progressed.? 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 In the ER x-ray demonstrated right foot osteo, she does not have a leukocytosis and she is afebrile.? Unfortunately, she was started on Zosyn and had what appeared to the ED physician to be an anaphylactic reaction and she was treated appropriately with epinephrine.? She never lost her airway and is completely recovered. Hospital Course: 1. Type 2 diabetes with diabetic foot ulcer and osteomyelitis of her right fifth metatarsal and neuropathy?57-year-old female with a history of type 2 diabetes hospital with a worsening infected ulcer on the lateral aspect of her right foot she was taken to the OR and proceeded to have 5 toe amputation and partial metatarsal amputation secondary to osteomyelitis. Infectious disease was consulted and ordered outpatient p.o. Levaquin 500 mg daily for 37 days. She is nonweightbearing on her right lower extremity therefore based on physical therapy evaluation was discharged to a SNF. I discussed with her the plan for discharge today she expressed understanding of the risk benefits of going to the prison today and would like to go today. Do recommend following up with wound care on discharge from prison. She does have a wound VAC in place and she can resume all of her home blood sugar medications. 2. Hypertension, hyperlipidemia, peripheral artery disease, hypothyroidism, GERD, anxiety, depression all chronic medical conditions which complicate her care. Her home medications were continued where appropriate. She did have another set of ABIs done during this admission which demonstrated calcifications. I do recommend outpatient follow-up with vascular surgery when she is discharged from SNF. Weight / BMI Weight Weight: 244 lb 4.355 oz Body Mass Index (BMI) 37.1 ABG / Lab / Microbiology Data Result Diagrams: 03/07/23 05:25 03/07/23 05:25 Laboratory: Laboratory Results - last 24 hr 03/06/23 11:21: POC Glucose 184 H 03/06/23 16:44: POC Glucose 170 H 03/06/23 21:04: POC Glucose 178 H 03/07/23 05:25: WBC 5.5, RBC 3.76 L, Hgb 10.4 L, Hct 33.0 L, MCV 87.8, MCH 27.7, MCHC 31.5 L, RDW Std Deviation 44.8 H, RDW Coeff of Kami 14.2, Plt Count 360, MPV 8.6, Immature Gran % (Auto) 0.500, Neut % (Auto) 56.4, Lymph % (Auto) 31.1, [place] % (Auto) 8.6, Eos % (Auto) 2.9, Baso % (Auto) 0.5, Absolute Neuts (auto) 3.1, Absolute Lymphs (auto) 1.70, Nucleated RBC % 0 03/07/23 05:25: Sodium 140, Potassium 3.4 L, Chloride 104, Carbon Dioxide 31.0, Anion Gap 5, BUN 24 H, Creatinine 0.53 L, Estim Creat Clear Calc 116.71, Est GFR (MDRD) Af Amer 153, Est GFR (MDRD) Non-Af 126, BUN/Creatinine Ratio 45.5 H, Glucose 163 H, Calcium 8.6 03/07/23 05:59: POC Glucose 156 H Microbiology: Microbiology 03/01/23 12:45 Wound - Right Foot Gram Stain - Final 03/01/23 12:45 Wound - Right Foot Wound Culture - Final Staphylococcus aureus Streptococcus agalactiae (B) Proteus penneri 03/01/23 12:45 Wound - Right Foot Anaerobic Culture - Preliminary Anaerobic cocci Anaerobic cocci#2 03/02/23 14:10 Bone - 5th Toe Gram Stain - Final 03/02/23 14:10 Bone - 5th Toe Wound Culture - Final Streptococcus agalactiae (B) Pseudomonas aeruginosa 03/02/23 14:10 Bone - 5th Toe Anaerobic Culture - Preliminary Gram negative elizabeth Anaerobic cocci 03/02/23 14:06 Bone - 5th Toe Gram Stain - Final 03/02/23 14:06 Bone - 5th Toe Wound Culture - Final Strep anginosus Streptococcus agalactiae (B) Pseudomonas aeruginosa 03/02/23 14:06 Bone - 5th Toe Anaerobic Culture - Final Anaerobic cocci 03/01/23 15:15 Blood Culture (Wb) - Anticubital Left Blood Culture - Final No growth in 5 days. 03/01/23 14:40 Blood Culture (Wb) - Anticubital Left Blood Culture - Final No growth in 5 days. Meaningful Use Info Meaningful Use Diagnoses (Choose all that apply): None applicable Discharge Plan Admission Admit Date/Time: 03/01/23 11:11 Attending Provider: Macario Tyler Primary Care Provider: Gulshan Early Chi Consulting Providers: Tereso Navarro ; Victorino Mixon ; Pérez Araya Discharge Orders/Prescriptions Prescriptions: New levofloxacin 500 mg tablet 500 mg PO DAILY Qty: 37 0RF Continued celecoxib 200 mg capsule 200 mg PO DAILY montelukast 10 mg tablet 10 mg PO QHS metformin 1,000 mg tablet 1,000 mg PO BID omeprazole 40 mg capsule,delayed release(DR/EC) 40 mg PO DAILY loratadine 10 mg capsule 10 mg PO DAILY cilostazol 100 mg tablet 100 mg PO DAILY levothyroxine 175 mcg tablet 175 mcg PO DAILY aspirin [Adult Low Dose Aspirin] 81 mg tablet,delayed release (DR/EC) 81 mg PO DAILY metoprolol succinate 200 mg tablet extended release 24 hr 200 mg PO DAILY (DME) pen needle, diabetic [BD Ultra-Fine [place] Pen Needle] 32 gauge x 5/32 n eedle See Rx Instructions .Route Qty: 100 3RF Rx Instructions: daily potassium chloride 20 MEQ tablet 20 meq PO DAILY paroxetine HCl 40 MG tablet 40 mg PO DAILY pregabalin 150 MG capsule 150 mg PO TID calcium carbonate-vitamin D3 1 EACH tablet 1 ea PO DAILY ferrous sulfate [iron] 325 mg (65 mg iron) Tablet 325 mg PO DAILY albuterol sulfate [ProAir HFA] 90 mcg/actuation Hfa Aerosol Inhaler 1 inh INHALATION Q6H PRN (Reason: SHORTNESS OF BREATH ) rosuvastatin [Crestor] 40 mg Tablet 40 mg PO DAILY multivitamin Tablet 1 tab PO DAILY trazodone 100 mg tablet 200 mg PO QHS glimepiride 4 mg tablet 4 mg PO BID ipratropium bromide 42 mcg (0.06 %) spray,non-aerosol 2 spray INTRANASAL DAILY losartan 100 mg tablet 100 mg PO DAILY vitamin B complex Capsule 1 cap PO DAILY Farxiga 10 mg tablet 10 mg PO DAILY Levemir FlexPen 100 unit/mL (3 mL) insulin pen 55 unit subcut DAILY Mounjaro 2.5 mg/0.5 mL pen injector 2.5 mg subcut WE Referrals / Follow Up: Gulshan Early Chi, MD [Primary Care Provider] - Disposition Disposition (needs filled in before D/C Order can be placed): Longterm Facility Charges/Coding Visit Charges Inpatient E&M: 61673 Disch Hosp >30min
[2023-03-07 11:38] LABS: Bedside Glucose 185 mg/dL (74-106)
[2023-03-07] MEDS: Ferrous Sulfate 325 MG Tablet PO (12:03)
[2023-03-07] MEDS: Insulin Lispro 100 UNIT/ML INSULN.PEN SC (12:03)
--- NOTE | 2023-03-07 12:19 | NURSING ---
report called to tcu
[2023-03-07 12:29] VITALS: BP 146/60; PULSE 58; RESP 16; TEMP 36.6; O2SAT 96
--- NOTE | 2023-03-07 14:15 | PHA.DC.MR ---
Pharmacy Service has performed discharge medication reconciliation for this patient. The patient's discharge medication list was reviewed for discrepancies and discrepancies were resolved. Home Medications celecoxib 200 mg capsule 200 mg PO DAILY ARTHRITIS/INFLAMMATION 10/18/18 loratadine 10 mg capsule 10 mg PO DAILY ALLERGIES 10/18/18 metformin 1,000 mg tablet 1,000 mg PO BID DIABETES 10/18/18 montelukast 10 mg tablet 10 mg PO QHS ASTHMA/ALLERGIES 10/18/18 omeprazole 40 mg capsule,delayed release 40 mg PO DAILY ACID REFLUX 10/18/18 calcium carbonate 500 mg-vitamin D3 10 mcg (400 unit) tablet 1 ea PO DAILY SUPPLEMENT 10/29/19 paroxetine HCl 40 mg tablet 40 mg PO DAILY DEPRESSION 10/29/19 potassium chloride 20 mEq tablet,extended release(part/cryst) 20 meq PO DAILY SUPPLEMENT 10/29/19 pregabalin 150 mg capsule 150 mg PO TID NERVE PAIN 10/29/19 aspirin 81 mg tablet,delayed release (Adult Low Dose Aspirin) 81 mg PO DAILY HEART HEALTH 07/21/20 cilostazol 100 mg tablet 100 mg PO DAILY CHOLESTEROL 07/21/20 levothyroxine 175 mcg tablet 175 mcg PO DAILY THYROID 07/21/20 metoprolol succinate 200 mg tablet,extended release 24 hr 200 mg PO DAILY BLOOD PRESSURE 07/21/20 albuterol sulfate 90 mcg/actuation aerosol inhaler (ProAir HFA) 1 inh inhalation Q6H PRN SHORTNESS OF BREATH 08/26/22 ferrous sulfate 325 mg (65 mg iron) tablet (iron) 325 mg PO DAILY ANEMIA 08/26/22 rosuvastatin 40 mg tablet (Crestor) 40 mg PO DAILY CHOLESTEROL 08/26/22 pen needle, diabetic 32 gauge x 5/32 (BD Ultra-Fine [place] Pen Needle) #100 ea 02/13/23 dapagliflozin propanediol 10 mg tablet (Farxiga) 10 mg PO DAILY DIABETES 03/01/23 glimepiride 4 mg tablet 4 mg PO BID DIABETES 03/01/23 insulin detemir U-100 100 unit/mL (3 mL) subcutaneous pen (Levemir FlexPen) 55 unit subcut DAILY DIABETES 03/01/23 ipratropium bromide 42 mcg (0.06 %) nasal spray 2 spray intranasal DAILY NASAL DRAINAGE 03/01/23 losartan 100 mg tablet 100 mg PO DAILY BLOOD PRESSURE 03/01/23 multivitamin 1 tab PO DAILY HEALTH MAINTENANCE 03/01/23 tirzepatide 2.5 mg/0.5 mL subcutaneous pen injector (Rex) 2.5 mg subcut WE DIABETES 03/01/23 trazodone 100 mg tablet 200 mg PO QHS SLEEP 03/01/23 vitamin B complex 1 cap PO DAILY SUPPLEMENT 03/01/23 levofloxacin 500 mg tablet 500 mg PO DAILY antibiotic 03/07/23
== END 2023-03-07 13:00 | disposition skilled nursing facility (03) | DRG 617 ==
LOC: ED 10:47 → MS3 11:51
PROVIDERS: Anesthesiology; Hospitalist; Podiatrist; Admitting Provider Family Medicine; Emergency Provider Emergency Medicine; PCP Family Medicine Geriatric Medicine; Visit Provider Family Medicine
PROC: 0Y6M0ZF Detachment at Right Foot, Partial 5th Ray, Open Approach (ICD-10-PCS; principal; 2023-03-02 13:15)
DX: E11.621 Type 2 diabetes mellitus with foot ulcer (principal); L03.115 Cellulitis of right lower limb; M86.8X7 Other osteomyelitis, ankle and foot; T88.6XXA Anaphylactic reaction due to adverse effect of correct drug or medicament properly administered, initial encounter; E11.51 Type 2 diabetes mellitus with diabetic peripheral angiopathy without gangrene; E11.42 Type 2 diabetes mellitus with diabetic polyneuropathy; L97.519 Non-pressure chronic ulcer of other part of right foot with unspecified severity; Z79.4 Long term (current) use of insulin; E11.69 Type 2 diabetes mellitus with other specified complication; E78.5 Hyperlipidemia, unspecified; I10 Essential (primary) hypertension; K21.9 Gastro-esophageal reflux disease without esophagitis; M79.7 Fibromyalgia; F32.A Depression, unspecified; F41.9 Anxiety disorder, unspecified; E03.9 Hypothyroidism, unspecified; Z79.02 Long term (current) use of antithrombotics/antiplatelets; Z79.82 Long term (current) use of aspirin; Z79.2 Long term (current) use of antibiotics
CPT/HCPCS: 36415; 73630; 73718; 80048; 80053; 80202; 82962; 83036; 84443; 85025; 85652; 86140; 87015; 87040; 87070; 87075; 87077; 87102; 87116; 87186; 87205; 87206; 87640; 88304; 88305; 88311; 93005; 93923; 97110; 97116; 97162; 97165; 97530; 97535; 99284; J7030; J7040; J7050; J7120; A4216; J2405

== ENCOUNTER 2023-03-07 13:10 | Inpatient (IN) | payer MEDICARE, MEDICAID, SELFPAY ==
[2023-03-07 13:17] VITALS: BP 145/69; PULSE 68; RESP 16; TEMP 35.9; O2SAT 95; BMI 36.7
--- NOTE | 2023-03-07 14:31 | NURSING ---
Pt's family will bring in her own Mounjaro (Non Formulary)medication. Will send to pharm for label when it arrives ( tonight or tomorrow) per pt
[2023-03-07 16:35] LABS: Bedside Glucose 174 mg/dL (74-106)
[2023-03-07] MEDS: metFORMIN HCl 1,000 MG Tablet 1000 MG PO (18:10)
[2023-03-07] MEDS: Glimepiride 4 MG Tablet PO (18:10)
[2023-03-07] MEDS: Acetaminophen 500 MG Tablet 1000 MG PO (18:10)
[2023-03-07] MEDS: Pregabalin 75 MG Capsule 150 MG PO (21:33)
[2023-03-07] MEDS: Atorvastatin Calcium 80 MG Tablet PO (21:33)
[2023-03-07] MEDS: Montelukast 10 MG Tablet PO (21:33)
[2023-03-07] MEDS: traZODone 100 MG Tablet 200 MG PO (21:33)
[2023-03-07] MEDS: oxyCODONE 5 MG Tablet PO (21:33)
[2023-03-07 21:58] LABS: Bedside Glucose 176 mg/dL (74-106)
--- NOTE | 2023-03-07 22:24 | HP.PCM_ITS ---
HPI - General General Date of Admission: 03/07/23 Date of Service: 03/07/23 Chief Complaint: Here for rehabilitation. HPI Narrative 03/01/2023 REMI TREVINO, is a 57 Female who presents to [facility] Emergency Department with wound. Dr. Navarro recommend admission for diabetic foot infection. Right 5th toe wound. X-ray shows osteomyelitis. Zosyn given, anaphylaxis, resolved with Benadryl. Levaquin given instead. 03/01/2023 Admit to Hospital. 01/2023 wound culture MSSA, Enterobacter. Dr. Mixon recommended blood cultures x 2, MRI right lower extremity. Vancomycin, Cefepime, Flagyl for right foot osteomyelitis. Dr. Navarro consulted. 03/02/2023 MRI right foot showed osteomyelitis. HIMA doppler normal. 03/02/2023 Dr. Navarro amputated 5th toe, partial 5th metatarsal, right foot. 03/03/2023 Stable. 03/04/2023 Pain controlled. NWB right lower extremity. Wound culture with staph x 2, strep, gram negative rods, continue Vancomycin, Cefepime, Flagyl. 03/05/2023 PT/OT recommended SNF. Dr. Mixon wound GBS, PsA, Strep, continue Cefepime/Flagyl for now. Clearance culture positive, recommend 37 more days of Levaquin at discharge. 03/07/2023 Admit to TCU with debility, here for rehabilitation, strengthening, prior to discharge home alone. [facility] Medical History (Updated 03/07/23 @ 22:[address] Gulshan Early MD) Anxiety Arthritis Asthma Asthma Back pain Broken teeth Cardiology follow-up encounter Chronic steroid use CPAP (continuous positive airway pressure) dependence Depression Dermatitis Diabetes type 2, uncontrolled Dietary restriction Difficulty balancing when standing Edema Essential (primary) hypertension Fibromyalgia GERD (gastroesophageal reflux disease) Hammertoe of left foot History of pain when walking History of partial ray amputation of fifth toe of right foot History of stress test Hypergammaglobulinemia Hyperlipemia Hypertension Hypothyroidism Iron deficiency Leg cramping Morbid obesity with BMI of 40.0-44.9, adult Multinodular thyroid Non-smoker Normal echocardiogram Osteomyelitis of toe Other specified peripheral vascular diseases PAD (peripheral artery disease) Shortness of breath Skin ulcer of right foot including toes with fat layer exposed Venous stasis dermatitis of both lower extremities Wears glasses Home Medications celecoxib 200 mg capsule 200 mg PO DAILY ARTHRITIS/INFLAMMATION 10/18/18 [History Last Taken 02/28/23] loratadine 10 mg capsule 10 mg PO DAILY ALLERGIES 10/18/18 [History Last Taken 02/28/23] metformin 1,000 mg tablet 1,000 mg PO BID DIABETES 10/18/18 [History Last Taken 02/28/23] montelukast 10 mg tablet 10 mg PO QHS ASTHMA/ALLERGIES 10/18/18 [History Last Taken 02/28/23] omeprazole 40 mg capsule,delayed release 40 mg PO DAILY ACID REFLUX 10/18/18 [History Last Taken 02/28/23] calcium carbonate 500 mg-vitamin D3 10 mcg (400 unit) tablet 1 ea PO DAILY SUPPLEMENT 10/29/19 [History Last Taken 02/28/23] paroxetine HCl 40 mg tablet 40 mg PO DAILY DEPRESSION 10/29/19 [History Last Taken 02/28/23] potassium chloride 20 mEq tablet,extended release(part/cryst) 20 meq PO DAILY SUPPLEMENT 10/29/19 [History Last Taken 02/28/23] pregabalin 150 mg capsule 150 mg PO TID NERVE PAIN 10/29/19 [History Last Taken 02/28/23] aspirin 81 mg tablet,delayed release (Adult Low Dose Aspirin) 81 mg PO DAILY HEART HEALTH 07/21/20 [History Last Taken 02/28/23] cilostazol 100 mg tablet 100 mg PO DAILY CHOLESTEROL 07/21/20 [History Last Taken 02/28/23] levothyroxine 175 mcg tablet 175 mcg PO DAILY THYROID 07/21/20 [History Last Taken 02/28/23] metoprolol succinate 200 mg tablet,extended release 24 hr 200 mg PO DAILY BLOOD PRESSURE 07/21/20 [History Last Taken 02/28/23] albuterol sulfate 90 mcg/actuation aerosol inhaler (ProAir HFA) 1 inh inhalation Q6H PRN SHORTNESS OF BREATH 08/26/22 [History Last Taken 2 Days Ago ~02/27/23] ferrous sulfate 325 mg (65 mg iron) tablet (iron) 325 mg PO DAILY ANEMIA 08/26/22 [History Last Taken 02/28/23] rosuvastatin 40 mg tablet (Crestor) 40 mg PO DAILY CHOLESTEROL 08/26/22 [History Last Taken 02/28/23] pen needle, diabetic 32 gauge x 5/32 (BD Ultra-Fine Catalina Pen Needle) #100 ea 02/13/23 [Rx Last Taken Unknown] dapagliflozin propanediol 10 mg tablet (Farxiga) 10 mg PO DAILY DIABETES 03/01/23 [History Last Taken 02/28/23] glimepiride 4 mg tablet 4 mg PO BID DIABETES 03/01/23 [History Last Taken ] insulin detemir U-100 100 unit/mL (3 mL) subcutaneous pen (Levemir FlexPen) 55 unit subcut DAILY DIABETES 03/01/23 [History Last Taken 02/28/23] ipratropium bromide 42 mcg (0.06 %) nasal spray 2 spray intranasal DAILY NASAL DRAINAGE 03/01/23 [History Last Taken 02/28/23] losartan 100 mg tablet 100 mg PO DAILY BLOOD PRESSURE 03/01/23 [History Last Taken 02/28/23] multivitamin 1 tab PO DAILY HEALTH MAINTENANCE 03/01/23 [History Last Taken 02/28/23] tirzepatide 2.5 mg/0.5 mL subcutaneous pen injector (Vaughnunmemoro) 2.5 mg subcut WE DIABETES 03/01/23 [History Last Taken 02/22/23] trazodone 100 mg tablet 200 mg PO QHS SLEEP 03/01/23 [History Last Taken 02/28/23] vitamin B complex 1 cap PO DAILY SUPPLEMENT 03/01/23 [History Last Taken 02/28/23] levofloxacin 500 mg tablet 500 mg PO DAILY antibiotic 03/07/23 [History Last Taken Unknown] Allergy/AdvReac Type Severity Reaction Status Date / Time piperacillin [From Zosyn] Allergy Severe Anaphylaxis Verified 03/01/23 10:39 tazobactam [From Zosyn] Allergy Severe Anaphylaxis Verified 03/01/23 10:39 sulfamethoxazole Allergy Unknown Anaphylaxis Verified 03/01/23 13:34 [From Bactrim] trimethoprim [From Bactrim] Allergy Unknown Anaphylaxis Verified 03/01/23 13:34 latex Allergy Rash Verified 03/01/23 09:27 tetanus and diphtheria Allergy Anaphylaxis Verified 03/01/23 09:27 toxoids [Tetanus&Diphtheria Toxoid] flea medicine Allergy Anaphylaxis, Uncoded 03/01/23 09:27 Diarrhea Family History Mother Diabetes Dementia Father Diabetes Myocardial infarction Surgical History H/O amputation of lesser toe (05/05/17) H/O arthroscopic knee surgery (11/2019) History of cholecystectomy History of nasal septoplasty History of thyroidectomy Hx of total knee arthroplasty Social History (Updated 03/07/23 @ 22:[address] Gulshan Early MD) household members: none Smoking Status: Never smoker alcohol intake: current alcohol intake frequency: holidays/special occasions only substance use type: does not use ROS Constitutional Constitutional: Denies chills, fever(s) or weight gain ENT HEENT: Denies headache(s), nasal congestion or nasal discharge Cardiovascular Cardiovascular: Denies chest pain or palpitations Respiratory/Chest Respiratory/Chest: Denies cough, excessive phlegm production or shortness of breath with exertion Gastrointestinal Gastrointestinal: Denies abdominal pain, nausea or vomiting Genitourinary Genitourinary: Denies dysuria Musculoskeletal Musculoskeletal: Denies joint pain or joint swelling Integumentary Integumentary: Denies rash or wounds Neurologic Neurologic: Denies focal weakness, numbness or tingling Psychiatric Psychiatric: Denies anxiety, auditory hallucinations, depression, homicidal ideation or suicidal ideation Vital Signs Vital Signs Vital Signs: 03/07/23 13:17 03/07/23 13:17 Temperature 96.6 F L Temperature Source Temporal Pulse Rate 68 Pulse Rhythm Regular Pulse Strength Normal (2+) Respiratory Rate 16 Respiratory Effort Normal Non-Labored Respiratory Depth Normal Respiratory Pattern Normal Blood Pressure 145/69 H Blood Pressure Mean 94 Blood Pressure Source Monitor Blood Pressure Position Semi-Fowlers Blood Pressure Location Right Arm Pulse Ox 95 Oxygen Delivery Method Room Air Room Air Weight Weight: 109.679 kg Body Mass Index (BMI) 36.7 Physical Exam Const alert General Appearance: cooperative HEENT normocephalic Eyes PERRL and EOMs intact bilaterally Neck supple, no JVD and no carotid bruits Resp normal respiratory effort, normal air movement and clear to auscultation bilaterally Cardio regular rate and regular rhythm GI normal to inspection, nondistended, normoactive bowel sounds, non-tender and non-distended Extremity normal capillary refill Extremity Narrative: Right foot dressed, wound VAC present. General Extremity: Negative for edema Skin no rashes or lesions noted General Skin Exam: no breakdown Psych affect normal Appearance: appropriate Results Lab / Micro Data Labs: Laboratory Results - last 24 hr 03/07/23 16:16: POC Glucose 174 H 03/07/23 21:39: POC Glucose 176 H Assessment & Plan Assessment/Plan (1) Debility: (2) Type 2 diabetes mellitus with foot ulcer: (3) Foot osteomyelitis, right: (4) Diabetes mellitus: (5) GERD (gastroesophageal reflux disease): (6) Depression: (7) Hypokalemia: (8) Diabetic polyneuropathy: (9) Hypothyroidism: (10) Hyperlipidemia: (11) Insomnia: PLAN: Plan 57 year old female with below past medical history hospitalized for osteomyelitis right foot, underwent right 5th toe amputation, partial 5th metatarsal amputation 03/02/[address] Navarro, admitted to TCU with debility, here for rehabilitation, strengthening, prior to discharge home alone. * Debility - PT/OT. * Pain - Tylenol 1000mg q8h, Tramadol 50mg q6h prn pain (1-5), Oxycodone 5mg q4h prn pain (6-10). * Bowel - senna/colace 1 tablet bid, Magnesium citrate 300ml po x 1 prn. * Adult immunization - Administer pneumonia vaccine, covid19 vaccine, flu vaccine as appropriate. * DVT prophylaxis - Hold, monitor. * CV prophylaxis - Aspirin 81mg daily. * Hyperlipidemia - Atorvastatin 80mg qhs. * Diabetes Mellitus II - Metformin 1000mg bidcm, Glimepiride 4mg bid, Jardiance 25mg daily, Glargine 55 units daily, Mounjaro 2.5mg qweek. * Osteomyelitis right foot status post amputation - Levaquin 500mg daily thru 04/14/2023, Consult Dr. Navarro. * Hypothyroidism - Levothyroxine 175mcg daily. * Hypertension - Metoprolol succinate 200mg daily, Losartan 100mg daily. * Tinea Corporis - Nystatin topical bid. * GERD - Pantoprazole 40mg daily. 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 * Hypokalemia - KCL 20meq daily. * Diabetic polyneuropathy - Lyrica 150mg tid. * Insomnia - Trazodone 200mg qhs, stable chronic manager business operations use, GDR not recommended.
[2023-03-08] MEDS: Potassium Chloride Oral Tablet 20 MEQ PO ×2 (06:00→17:17)
[2023-03-08] MEDS: Paroxetine 20 MG Tablet 40 MG PO (06:00)
[2023-03-08] MEDS: Senna/Docusate Sodium 1 Tablet PO ×2 (06:00→17:18)
[2023-03-08] MEDS: Pantoprazole Sodium 40 MG Tablet PO (06:00)
[2023-03-08] MEDS: Aspirin E.C. 81 MG Tablet PO (06:00)
[2023-03-08] MEDS: Insulin Glargine-YFGN 100 UNIT/ML Pen 55 UNIT SC (06:00)
[2023-03-08] MEDS: Losartan Potassium 100 MG Tablet PO (06:00)
[2023-03-08] MEDS: Acetaminophen 500 MG Tablet 1000 MG PO ×3 (06:00→20:34)
[2023-03-08] MEDS: Glimepiride 4 MG Tablet PO (06:00)
[2023-03-08] MEDS: Empagliflozin 25 MG Tablet PO (06:00)
[2023-03-08] MEDS: Pregabalin 75 MG Capsule 150 MG PO ×3 (06:00→20:34)
[2023-03-08] MEDS: levoFLOXacin 500 MG Tablet PO (06:00)
[2023-03-08] MEDS: Levothyroxine 175 MCG Tablet PO (06:00)
[2023-03-08 06:26] LABS: Bedside Glucose 123 mg/dL (74-106)
[2023-03-08 07:09] LABS: Absolute Lymphocyte Count 2.37 X10^3/uL (0.83-4.51); Absolute Neutrophil Count 3.2 X10^3/uL (2.0-7.7); Basophil# 0.04 X10^3/uL; Basophil% 0.6 % (0-1); Eosinophil# 0.15 X10^3/uL; Eosinophils% 2.4 % (0-5); Hematocrit 33.2 % (37-47); Hemoglobin 10.2 g/dL (12.0-15.0); Lymphocyte # 2.37 X10^3/ul (0.83-4.51); Lymphocyte % 37.1 % (19-41); Mean Corp Hgb Conc 30.7 g/dL (32-36); Mean Corpuscular Hgb 27.4 pg (27.0-32.0); Mean Corpuscular Volume 89.2 fL (81-99); Monocyte# 0.61 X10^3/uL; Monocyte% 9.6 % (0-10); NRBC Flagged by Analyzer 0 % (0-5); Neutrophil # 3.15 X10^3/uL (2.7-7.7); Neutrophil % 49.4 % (47-70); Platelet Count 390 K/mm3 (150-450); RBC Distribution Width CV 14.5 % (11.6-14.6); RBC Distribution Width SD 46.7 fl (35.1-43.9); Red Blood Count 3.72 M/mm3 (4.2-5.4); White Blood Count 6.4 K/mm3 (4.4-11.0)
[2023-03-08 07:39] LABS: Anion Gap 5 (5-15); BUN 24 mg/dL (7-18); BUN/Creat Ratio 39.7 RATIO (10-20); Calcium,Total 8.9 mg/dL (8.5-10.1); Chloride 106 mmol/L (98-107); EST Glomerular Filtration Rate 108 mL/min (>60); Est Glom Filt Rate - Afr Amer 131 mL/min (>60); Glucose 126 mg/dL (74-106); Potassium 3.4 mmol/L (3.5-5.1); Sodium Level 142 mmol/L (136-145)
[2023-03-08] MEDS: metFORMIN HCl 1,000 MG Tablet 1000 MG PO ×2 (08:12→18:25)
[2023-03-08 09:28] VITALS: PULSE 58
[2023-03-08 10:22] LABS: Hemoglobin A1c 6.3 % (3.8-5.6)
--- NOTE | 2023-03-08 11:21 | CASEMGMT ---
Social Work SW met w/pt to complete initial assessment. Introduced self and role of SW in TCU. SW verified daughter as main contact and POA. Discussed code status and MOLST Form. Pt verified she is a full code. MOST form in physician folder. Educated pt to insurance benefit and that length of stay determined by insurance, if more time is needed than initially given, continued stay requested. SW also educated pt to team meeting to review plan and goals. Pt wishes to return home at discharge. She is open to C if needed, had in past though does not remember agency. SW will continue to follow for discharge planning. SOCORRO Cano
[2023-03-08 11:30] LABS: Bedside Glucose 103 mg/dL (74-106)
--- NOTE | 2023-03-08 12:18 | NURSING ---
Diver Tender Note; Activity Asset: Theodora Palomo is independent in her choice of daily activities. She has a smartphone she use to talk w/family and friends along w/games. She will work on the word search and search and find papers I gave her when not in therapy or visiting w/family. Dewey stated she will welcome visits from the mold maker helper and the therapy dog.
[2023-03-08] MEDS: Tuberculin,Purif.prot.deriv. 50 TU/ML Vial 0.1 ML ID (12:33)
[2023-03-08] MEDS: Nystatin Powder 15gm Bottle 1 APPLIC TOPICAL ×2 (12:33→20:35)
--- NOTE | 2023-03-08 15:01 | WOUNDNOTE ---
wound photo: right foot
[2023-03-08 15:07] VITALS: BP 132/71; PULSE 58; RESP 17; TEMP 35.9; O2SAT 17
--- NOTE | 2023-03-08 16:34 | NURSING ---
BS 54 pt requested a pop. Will recheck sugar.
[2023-03-08 16:55] LABS: Bedside Glucose 55 mg/dL (74-106)
[2023-03-08] MEDS: oxyCODONE 5 MG Tablet PO (17:14)
[2023-03-08] MEDS: Juven (unflavored) Packet 1 PACKET PO (17:17)
[2023-03-08 17:23] LABS: Bedside Glucose 56 mg/dL (74-106)
[2023-03-08 17:48] LABS: Bedside Glucose 81 mg/dL (74-106)
[2023-03-08] MEDS: Atorvastatin Calcium 80 MG Tablet PO (20:34)
[2023-03-08] MEDS: traZODone 100 MG Tablet 200 MG PO (20:34)
[2023-03-08 21:53] VITALS: PULSE 77; O2SAT 97
[2023-03-09 05:00] VITALS: BP 132/68; PULSE 62
[2023-03-09 06:28] LABS: Bedside Glucose 83 mg/dL (74-106)
[2023-03-09] MEDS: Empagliflozin 25 MG Tablet PO (06:31)
[2023-03-09] MEDS: Pantoprazole Sodium 40 MG Tablet PO (06:31)
[2023-03-09] MEDS: Levothyroxine 175 MCG Tablet PO (06:31)
[2023-03-09] MEDS: Paroxetine 20 MG Tablet 40 MG PO (06:31)
[2023-03-09 06:32] VITALS: BP 132/68; PULSE 62
[2023-03-09] MEDS: Aspirin E.C. 81 MG Tablet PO (06:32)
[2023-03-09] MEDS: Senna/Docusate Sodium 1 Tablet PO ×2 (06:32→17:36)
[2023-03-09] MEDS: Acetaminophen 500 MG Tablet 1000 MG PO ×2 (06:32→13:07)
[2023-03-09] MEDS: levoFLOXacin 500 MG Tablet PO (06:32)
[2023-03-09] MEDS: Losartan Potassium 100 MG Tablet PO (06:32)
[2023-03-09] MEDS: Pregabalin 75 MG Capsule 150 MG PO ×3 (06:34→21:52)
[2023-03-09 06:42] LABS: Anion Gap 4 (5-15); BUN 25 mg/dL (7-18); BUN/Creat Ratio 44.2 RATIO (10-20); Calcium,Total 8.6 mg/dL (8.5-10.1); Chloride 103 mmol/L (98-107); Creatinine, Serum 0.57 mg/dL (0.55-1.02); EST Glomerular Filtration Rate 117 mL/min (>60); Est Glom Filt Rate - Afr Amer 141 mL/min (>60); Estimated Creatinine Clearance 108.52 ml/min; Glucose 88 mg/dL (74-106); Potassium 3.8 mmol/L (3.5-5.1); Sodium Level 139 mmol/L (136-145)
[2023-03-09] MEDS: Potassium Chloride Oral Tablet 20 MEQ PO ×2 (08:13→17:36)
[2023-03-09] MEDS: Juven (unflavored) Packet 1 PACKET PO ×2 (08:13→17:36)
[2023-03-09] MEDS: Nystatin Powder 15gm Bottle 1 APPLIC TOPICAL ×2 (08:13→21:55)
[2023-03-09] MEDS: oxyCODONE 5 MG Tablet PO ×2 (08:19→21:52)
[2023-03-09 09:43] VITALS: PULSE 92; RESP 16; O2SAT 98
[2023-03-09 11:36] LABS: Bedside Glucose 155 mg/dL (74-106)
[2023-03-09 13:45] VITALS: BP 112/60; PULSE 77; RESP 17; TEMP 35.5; O2SAT 94
[2023-03-09 16:27] LABS: Bedside Glucose 114 mg/dL (74-106)
[2023-03-09] MEDS: traZODone 100 MG Tablet 150 MG PO (21:54)
[2023-03-09] MEDS: Atorvastatin Calcium 80 MG Tablet PO (21:55)
--- NOTE | 2023-03-10 06:33 | NURSING ---
bar staff reports glucometer unalbe to scan barcode requiring override, blood glucose result 165 per FEATURES REPORTER Brandon. Lab contacted and notified of glucometer issue.
[2023-03-10] MEDS: Acetaminophen 500 MG Tablet 1000 MG PO ×3 (06:41→21:43)
[2023-03-10] MEDS: Paroxetine 20 MG Tablet 40 MG PO (06:41)
[2023-03-10] MEDS: Pantoprazole Sodium 40 MG Tablet PO (06:41)
[2023-03-10] MEDS: Pregabalin 75 MG Capsule 150 MG PO ×3 (06:41→21:38)
[2023-03-10] MEDS: Levothyroxine 175 MCG Tablet PO (06:41)
[2023-03-10] MEDS: Senna/Docusate Sodium 1 Tablet PO ×2 (06:41→17:32)
[2023-03-10 06:42] LABS: Bedside Glucose 153 mg/dL (74-106)
[2023-03-10] MEDS: Losartan Potassium 100 MG Tablet PO (06:42)
[2023-03-10] MEDS: Aspirin E.C. 81 MG Tablet PO (06:42)
[2023-03-10] MEDS: levoFLOXacin 500 MG Tablet PO (06:42)
[2023-03-10 06:45] VITALS: BP 125/71; PULSE 78
[2023-03-10] MEDS: Metoprolol(XL)Succ 200 MG Tablet PO (06:45)
[2023-03-10 08:26] VITALS: BP 88/50; PULSE 64; RESP 18; TEMP 35.8; O2SAT 92
[2023-03-10] MEDS: Potassium Chloride Oral Tablet 20 MEQ PO ×2 (08:30→17:32)
[2023-03-10] MEDS: Juven (unflavored) Packet 1 PACKET PO ×2 (08:32→17:32)
[2023-03-10] MEDS: Nystatin Powder 15gm Bottle 1 APPLIC TOPICAL ×2 (08:33→21:43)
[2023-03-10 11:37] VITALS: BP 95/47; PULSE 68
--- NOTE | 2023-03-10 11:37 | MDS.RN ---
Pain interview for MDS completed.
--- NOTE | 2023-03-10 11:40 | CASEMGMT ---
Social Work BIMS () and PHQ-9 (10/07) completed for MDS assessment. Verito Bassett MSW [employer]
--- NOTE | 2023-03-10 13:25 | WOUNDNOTE ---
Called to give daughter, Bambi and update on the right foot wound per patient request. daughter very appreciative.
--- NOTE | 2023-03-10 15:38 | PHA.CONS_ITS ---
TCU RX Drug Regimen Review Subjective/Objective Subjective/Objective: Subjective: TCU Admission. 57 YOF presented to the ER with a wound. Hospitalized for osteomyelitis right foot, underwent right 5th toe amputation, partial 5th metatarsal amputation 03/02/[address] Navarro. Admitted to TCU with debility for strengthening and rehabilitation. Objective: Allergies piperacillin [From Zosyn] Allergy (Severe, Verified 03/01/23 10:39) Anaphylaxis tazobactam [From Zosyn] Allergy (Severe, Verified 03/01/23 10:39) Anaphylaxis sulfamethoxazole [From Bactrim] Allergy (Unknown, Verified 03/01/23 13:34) Anaphylaxis trimethoprim [From Bactrim] Allergy (Unknown, Verified 03/01/23 13:34) Anaphylaxis latex Allergy (Verified 03/01/23 09:27) Rash tetanus and diphtheria toxoids [Tetanus&Diphtheria Toxoid] Allergy (Verified 03/01/23 09:27) Anaphylaxis flea medicine Allergy (Uncoded 03/01/23 09:27) Anaphylaxis, Diarrhea Current Medications Generic Name Dose Route Start Last Admin Trade Name Freq PRN Reason Stop Dose Admin Acetaminophen 1,000 mg 03/07/23 17:45 03/10/23 13:27 Acetaminophen 500 Mg Tablet PO 1,000 mg Q8 RUTH Administration Aspirin 81 mg 03/08/23 06:00 03/10/23 06:42 Aspirin E.C. 81 Mg Tablet PO 81 mg DAILY RUTH Administration Atorvastatin Calcium 80 mg 03/07/23 22:00 03/09/23 21:55 Atorvastatin Calcium 80 Mg Tablet PO 80 mg QHS RUTH Administration Empagliflozin 25 mg 03/08/23 06:00 03/10/23 06:51 Empagliflozin 25 Mg Tablet PO Not Given DAILY RUTH L-Arginine/L-Glutamine/Calcium HMB 1 packet 03/08/23 17:00 03/10/23 08:32 Drew (Unflavored) Packet PO 1 packet BIDCM RUTH Administration Levofloxacin 500 mg 03/08/23 06:00 03/10/23 06:42 Levofloxacin 500 Mg Tablet PO 04/14/23 06:01 500 mg DAILY RUTH Administration Levothyroxine Sodium 175 mcg 03/08/23 06:00 03/10/23 06:41 Levothyroxine 175 Mcg Tablet PO 175 mcg DAILY RUTH Administration Losartan Potassium 100 mg 03/08/23 06:00 03/10/23 06:42 Losartan Potassium 100 Mg Tablet PO 100 mg DAILY RUTH Administration Magnesium Citrate 300 ml 03/07/23 22:42 Magnesium Citrate 300 Ml PO X1 PRN Constipation Metoprolol Succinate 200 mg 03/08/23 06:00 03/10/23 06:45 Metoprolol(Xl)Succ 200 Mg Tablet PO 200 mg DAILY RUTH Administration Nystatin 1 applic 03/07/23 22:00 03/10/23 08:33 Nystatin Powder 15gm Bottle TOPICAL 1 applic 1000,2200 RUTH Administration Protocol Oxycodone HCl 5 mg 03/07/23 17:32 03/09/23 21:52 Oxycodone 5 Mg Tablet PO 5 mg Q4H PRN PRN Administration Pain Score 6-10 Pantoprazole Sodium 40 mg 03/08/23 06:00 03/10/23 06:41 Pantoprazole Sodium 40 Mg Tablet PO 40 mg DAILY RUTH Administration Paroxetine HCl 40 mg 03/08/23 06:00 03/10/23 06:41 Paroxetine 20 Mg Tablet PO 40 mg DAILY RUTH Administration Potassium Chloride 20 meq 03/08/23 08:00 03/10/23 08:30 Potassium Chloride Oral Tablet 20 Meq PO 20 meq BIDCM RUTH Administration Pregabalin 150 mg 03/07/23 22:00 03/10/23 13:27 Pregabalin 75 Mg Capsule PO 150 mg TID RUTH Administration Senna/Docusate Sodium 1 tablet 03/07/23 22:45 03/10/23 06:41 Senna/Docusate Sodium 1 Tablet PO 1 tablet BID RUTH Administration Tramadol HCl 50 mg 03/07/23 17:32 Tramadol 50 Mg Tablet PO Q6H PRN PRN Pain Score 1-5 Trazodone HCl 150 mg 03/09/23 22:00 03/09/23 21:54 Trazodone 100 Mg Tablet PO 150 mg QHS RUTH Administration Tuberculin PPD 0.1 ml 03/15/23 10:00 Tuberculin,Purif.Prot.Deriv. 50 Tu/Ml Vial ID 03/15/23 10:01 X1 ONE Problem List Insomnia (Acute) Hyperlipidemia (Acute) Hypothyroidism (Acute) Diabetic polyneuropathy (Acute) Hypokalemia (Acute) Depression (Acute) GERD (gastroesophageal reflux disease) (Acute) Diabetes mellitus (Acute) Foot osteomyelitis, right (Acute) Debility (Acute) Type 2 diabetes mellitus with foot ulcer (Acute) Vital Signs Temp Pulse Resp BP Pulse Ox O2 Del Method FiO2 96.5 F L 68 18 95/47 L 92 Room Air 21 03/10/23 08:26 03/10/23 11:37 03/10/23 08:26 03/10/23 11:37 03/10/23 08:26 03/10/23 08:26 03/08/23 21:53 Oxygen Delivery Method Room Air Weight: 109.679 kg Body Mass Index (BMI) 36.7 Sodium 139 mmol/L (136-145) 03/09/23 05:21 Potassium 3.8 mmol/L (3.5-5.1) 03/09/23 05:21 Chloride 103 mmol/L (98-107) 03/09/23 05:21 Carbon Dioxide 32.0 mmol/L (21.0-32.0) 03/09/23 05:21 Anion Gap 4 (5-15) L 03/09/23 05:21 BUN 25 mg/dL (7-18) H 03/09/23 05:21 Creatinine 0.57 mg/dL (0.55-1.02) 03/09/23 05:21 Est GFR (MDRD) Af Amer 141 mL/min (>60) 03/09/23 05:21 Est GFR (MDRD) Non-Af 117 mL/min (>60) 03/09/23 05:21 BUN/Creatinine Ratio 44.2 RATIO (10-20) H 03/09/23 05:21 Glucose 88 mg/dL (74-106) 03/09/23 05:21 Assessment/Plan: ? 1. Pain: acetaminophen 1000mg PO Q8, tramadol 50mg PO Q6H PRN pain 1-5 and oxycodone 5mg PO Q4H PRN pain 6-10. Resident has had 4 doses of oxycodone for a pain scores of 6 and 9 in the foot/toe. No doses of tramadol have been given. Please continue to monitor for constipation, PRN usage, increased pain and respiratory depression. 2. Bowel: senna/docusate 1T PO BID and magnesium citrate 300mL PO x1 PRN constipation. No PRN doses have been given. Please continue to monitor for constipation and PRN usage. Last documented bowel movement 03/09. 3. Osteomyelitis of R foot s/p amputation: levofloxacin 500mg PO daily thru 04/14/23 (recommended by ID). Podiatry consulted. Please continue to monitor for S/S of infection, diarrhea and renal function. 4. CV prophylaxis: aspirin 81mg PO daily. Please continue to monitor for S/S of bleeding/chest pain/stroke and hemoglobin (last 10.2g/dL). 5. Hyperlipidemia: atorvastatin 80mg PO QHS. Please continue to monitor for muscle pain, lipid panel (last 02/20/23) and LFTs (last 03/01/23). 6. Diabetes Mellitus II: empagliflozin 25mg PO daily and Mounjaro 2.5mg SC Wednesdays. Please continue to monitor for S/S of hypoglycemia, eGFR (last 117mL/min), hemoglobin A1c (last 6.3% 03/08/23), diarrhea, and glucose (last 153mg/dL). 7. Hypertension: metoprolol succinate 200mg PO daily and losartan 100mg PO daily. Please continue to monitor BP (last 95/47), renal function and HR (last 68). Please consider adding hold parameters if clinically appropriate as the las t two blood pressures were 95/47 and 88/50. Thanks. 8. Hypothyroidism: levothyroxine 175mcg PO daily. Please continue to monitor for S/S of hypo/hyperthyroidism and TSH (last 03/02/23). 9. GERD: pantoprazole 40mg PO daily. Please continue to monitor for S/S of GERD and diarrhea. 10. Hypokalemia: potassium chloride 20mEq PO BIDCM. Please continue to monitor potassium (last 3.8mmol/L). Assessment/Plan for indications treated with psychotropic medications: 1. Depression: paroxetine 40mg PO daily. Please see physician note regarding GDR. Please continue to monitor for suicidal ideation (black box warning), weight gain, GI side effects, insomnia and dry mouth. 2. Insomnia: trazodone 150mg PO QHS. Please see physician note regarding GDR. Please continue to monitor for excessive drowsiness, dizziness, dry mouth and suicidal ideation (black box warning). 3. Diabetic polyneuropathy: pregabalin 150mg PO TID. GDR not appropriate as this medication is being used for polyneuropathy. Please continue to monitor renal function and nerve pain. Medical chart and medication regimen reviewed. The following medication irregularities or issues were identified: *1. Metoprolol succinate 200mg PO daily and losartan 100mg PO daily. Please consider adding hold parameters if clinically appropriate as the last two blood pressures were 95/47 and 88/50. Thanks. Date Date of Note:: 03/10/23
[2023-03-10 17:46] LABS: T4 Free Direct 1.29 ng/dL (0.76-1.46)
--- NOTE | 2023-03-10 18:45 | PCM.CONS.GEN ---
Assessment & Plan Assessment/Plan (1) Obesity: (2) Diabetic foot ulcer: (3) Cellulitis of right lower limb: (4) Type 2 diabetes mellitus with foot ulcer: (5) Foot osteomyelitis, right: (6) Non-pressure chronic ulcer of other part of right foot with fat layer exposed: (7) History of partial ray amputation of fifth toe of right foot: (8) Diabetes mellitus with diabetic polyneuropathy: PLAN: Plan Patient seen and evaluated She is s/p partial fifth ray amputation right foot. DOS: 03/02/2023, POD #8 Surgical cultures demonstrate strep agalactiae and PsA. Patient on IV antibiotic therapy per infectious disease recommendation Wound VAC removed from right amputation stump and wound was inspected. Right foot fifth digit amputation and fifth metatarsal head amputation noted. Distal wound is noted with proximal sutures intact. wound base is healthy and viable in appearance with goose pimple texture consistent with granular tissue. No signs of infection. Cellulitis resolved. Currently healing well Wound VAC was reapplied to the distal amputation stump. Wound VAC seal achieved and is set to 125 mm intermittent pressure. Wound VAC to be changed M, W, F. Wound nurse is assisting in dressing changes, she is greatly appreciated Patient is to remain nonweightbearing to the right foot. Podiatry will continue to follow weekly Please do not hesitate to call for any questions or concerns Zack Smith Jr. D.P.M. [facility] [phone] HPI Consult Data Date of Consult: 03/10/23 HPI Narrative Reason for Consultation: S/p partial fifth ray amputation right foot HPI Narrative: REMI TREVINO, is a 57 F who presents to the TCU for rehabilitation s/p partial fifth ray amputation of the right foot. DOS: 03/02/2023. Podiatry consulted for continued management in her postoperative setting in addition to local wound care. [facility] Medical History (Updated 03/10/23 @ 19:[address] Zack Smith, DPM) Anxiety Arthritis Asthma Asthma Back pain Broken teeth Cardiology follow-up encounter Chronic steroid use CPAP (continuous positive airway pressure) dependence Depression Dermatitis Diabetes type 2, uncontrolled Dietary restriction Difficulty balancing when standing Edema Essential (primary) hypertension Fibromyalgia GERD (gastroesophageal reflux disease) Hammertoe of left foot History of pain when walking History of partial ray amputation of fifth toe of right foot History of stress test Hypergammaglobulinemia Hyperlipemia Hypertension Hypothyroidism Iron deficiency Leg cramping Morbid obesity with BMI of 40.0-44.9, adult Multinodular thyroid Non-smoker Normal echocardiogram Osteomyelitis of toe Other specified peripheral vascular diseases PAD (peripheral artery disease) Shortness of breath Skin ulcer of right foot including toes with fat layer exposed Venous stasis dermatitis of both lower extremities Wears glasses Home Medications celecoxib 200 mg capsule 200 mg PO DAILY ARTHRITIS/INFLAMMATION 10/18/18 [History Last Taken 02/28/23] loratadine 10 mg capsule 10 mg PO DAILY ALLERGIES 10/18/18 [History Last Taken 02/28/23] metformin 1,000 mg tablet 1,000 mg PO BID DIABETES 10/18/18 [History Last Taken 02/28/23] montelukast 10 mg tablet 10 mg PO QHS ASTHMA/ALLERGIES 10/18/18 [History Last Taken 02/28/23] omeprazole 40 mg capsule,delayed release 40 mg PO DAILY ACID REFLUX 10/18/18 [History Last Taken 02/28/23] calcium carbonate 500 mg-vitamin D3 10 mcg (400 unit) tablet 1 ea PO DAILY SUPPLEMENT 10/29/19 [History Last Taken 02/28/23] paroxetine HCl 40 mg tablet 40 mg PO DAILY DEPRESSION 10/29/19 [History Last Taken 02/28/23] potassium chloride 20 mEq tablet,extended release(part/cryst) 20 meq PO DAILY SUPPLEMENT 10/29/19 [History Last Taken 02/28/23] pregabalin 150 mg capsule 150 mg PO TID NERVE PAIN 10/29/19 [History Last Taken 02/28/23] aspirin 81 mg tablet,delayed release (Adult Low Dose Aspirin) 81 mg PO DAILY HEART HEALTH 07/21/20 [History Last Taken 02/28/23] cilostazol 100 mg tablet 100 mg PO DAILY CHOLESTEROL 07/21/20 [History Last Taken 02/28/23] levothyroxine 175 mcg tablet 175 mcg PO DAILY THYROID 07/21/20 [History Last Taken 02/28/23] metoprolol succinate 200 mg tablet,extended release 24 hr 200 mg PO DAILY BLOOD PRESSURE 07/21/20 [History Last Taken 02/28/23] albuterol sulfate 90 mcg/actuation aerosol inhaler (ProAir HFA) 1 inh inhalation Q6H PRN SHORTNESS OF BREATH 08/26/22 [History Last Taken 2 Days Ago ~02/27/23] ferrous sulfate 325 mg (65 mg iron) tablet (iron) 325 mg PO DAILY ANEMIA 08/26/22 [History Last Taken 02/28/23] rosuvastatin 40 mg tablet (Crestor) 40 mg PO DAILY CHOLESTEROL 08/26/22 [History Last Taken 02/28/23] pen needle, diabetic 32 gauge x 5/32 (BD Ultra-Fine Catalina Pen Needle) #100 ea 02/13/23 [Rx Last Taken Unknown] dapagliflozin propanediol 10 mg tablet (Farxiga) 10 mg PO DAILY DIABETES 03/01/23 [History Last Taken 02/28/23] glimepiride 4 mg tablet 4 mg PO BID DIABETES 03/01/23 [History Last Taken 02/28/23] insulin detemir U-100 100 unit/mL (3 mL) subcutaneous pen (Levemir FlexPen) 55 unit subcut DAILY DIABETES 03/01/23 [History Last Taken 02/28/23] ipratropium bromide 42 mcg (0.06 %) nasal spray 2 spray intranasal DAILY NASAL DRAINAGE 03/01/23 [History Last Taken 02/28/23] losartan 100 mg tablet 100 mg PO DAILY BLOOD PRESSURE 03/01/23 [History Last Taken 02/28/23] multivitamin 1 tab PO DAILY HEALTH MAINTENANCE 03/01/23 [History Last Taken 02/28/23] tirzepatide 2.5 mg/0.5 mL subcutaneous pen injector (Mounjaro) 2.5 mg subcut WE DIABETES 03/01/23 [History Last Taken 02/22/23] trazodone 100 mg tablet 200 mg PO QHS SLEEP 03/01/23 [History Last Taken 02/28/23] vitamin B complex 1 cap PO DAILY SUPPLEMENT 03/01/23 [History Last Taken 02/28/23] levofloxacin 500 mg tablet 500 mg PO DAILY antibiotic 03/07/23 [History Last Taken Unknown] Allergy/AdvReac Type Severity Reaction Status Date / Time piperacillin [From Zosyn] Allergy Severe Anaphylaxis Verified 03/01/23 10:39 tazobactam [From Zosyn] Allergy Severe Anaphylaxis Verified 03/01/23 10:39 sulfamethoxazole Allergy Unknown Anaphylaxis Verified 03/01/23 13:34 [From Bactrim] trimethoprim [From Bactrim] Allergy Unknown Anaphylaxis Verified 03/01/23 13:34 latex Allergy Rash Verified 03/01/23 09:27 tetanus and diphtheria Allergy Anaphylaxis Verified 03/01/23 09:27 toxoids [Tetanus&Diphtheria Toxoid] flea medicine Allergy Anaphylaxis, Uncoded 03/01/23 09:27 Diarrhea Family History Mother Diabetes Dementia Father Diabetes Myocardial infarction Surgical History H/O amputation of lesser toe (05/05/17) H/O arthroscopic knee surgery (11/2019) History of cholecystectomy History of nasal septoplasty History of thyroidectomy Hx of total knee arthroplasty Social History (Updated 03/07/23 @ 22:[address] Gulshan Early MD) household members: none Smoking Status: Never smoker alcohol intake: current alcohol intake frequency: holidays/special occasions only substance use type: does not use ROS Constitutional Constitutional: Denies body ache(s), chills, fatigue or fever(s) Eyes Eyes: Denies change in vision, diplopia or erythema ENT HEENT: Denies dysphagia, nasal congestion, nasal discharge or sore throat Cardiovascular Cardiovascular: Denies chest pain, claudication or palpitations Respiratory/Chest Respiratory/Chest: Denies cough, dyspnea or shortness of breath at rest Gastrointestinal Gastrointestinal: Denies constipation, diarrhea, nausea or vomiting Genitourinary Genitourinary: Denies dysuria, urinary frequency or urinary urgency Musculoskeletal Musculoskeletal: Denies joint pain, joint stiffness or joint swelling Integumentary Integumentary: Denies lesions, pruritus or rash Neurologic Neurologic: Denies dizziness, numbness or seizures Endocrine Endocrinology: Denies cold intolerance or heat intolerance Hematologic/Lymphatic Hematologic/Lymphatic: Denies easy bleeding or easy bruising Allergic/Immunologic Allergic/Immunologic: Denies wheezing Physical Exam Const alert, oriented x3 and no apparent distress HEENT normocephalic Eyes General Eye: normal appearance of both eyes Neck General: normal visual inspection Lymph Lymphatic: no lymphadenopathy noted and no lymphedema noted Resp normal respiratory effort Cardio regular rate and regular rhythm Extremity normal capillary refill, no calf tenderness and no pedal edema Extremity Narrative: DP and PT pulses palpable with adequate capillary fill time to the digits of the right foot. Dermatological: Right foot fifth digit amputation and fifth metatarsal head amputation noted. Distal wound is noted with proximal sutures intact. wound base is healthy and viable in appearance with goose pimple texture consistent with granular tissue. No purulent drainage, no malodor, no erythema, no palpable fluctuance/bogginess noted, no visible abscess formation, no lymphangitic streaking. Musculoskeletal: Muscle strength is 5 of 5 age-appropriate. No pain to palpation about the amputation stump or along suture line. Skin no rashes or lesions noted, skin turgor normal and no jaundice Neuro moves all extremities Neuro Narrative: Decreased sensation to the foot secondary to diabetic peripheral polyneuropathy Lab / Micro Data 03/08/23 05:16 03/09/23 05:21 Labs: Laboratory Results - last 24 hr 03/09/23 05:21: Free T4 1.29 03/10/23 06:18: POC Glucose 153 H
[2023-03-10 21:00] VITALS: PULSE 76; RESP 14; O2SAT 98
[2023-03-10] MEDS: oxyCODONE 5 MG Tablet PO (21:38)
[2023-03-10] MEDS: traZODone 100 MG Tablet 150 MG PO (21:41)
[2023-03-10] MEDS: Atorvastatin Calcium 80 MG Tablet PO (21:42)
[2023-03-11 06:24] LABS: Bedside Glucose 158 mg/dL (74-106)
[2023-03-11] MEDS: Pregabalin 75 MG Capsule 150 MG PO ×2 (06:36→22:59)
[2023-03-11] MEDS: Senna/Docusate Sodium 1 Tablet PO ×2 (06:40→20:07)
[2023-03-11] MEDS: Paroxetine 20 MG Tablet 40 MG PO (06:40)
[2023-03-11] MEDS: Levothyroxine 175 MCG Tablet PO (06:40)
[2023-03-11] MEDS: Acetaminophen 500 MG Tablet 1000 MG PO ×2 (06:41→22:58)
[2023-03-11] MEDS: Aspirin E.C. 81 MG Tablet PO (06:41)
[2023-03-11] MEDS: Losartan Potassium 100 MG Tablet PO (06:41)
[2023-03-11] MEDS: levoFLOXacin 500 MG Tablet PO (06:41)
[2023-03-11] MEDS: Pantoprazole Sodium 40 MG Tablet PO (06:42)
[2023-03-11 06:46] VITALS: BP 122/64; PULSE 60
[2023-03-11] MEDS: Metoprolol(XL)Succ 100 MG Tablet 150 MG PO (06:46)
[2023-03-11] MEDS: Potassium Chloride Oral Tablet 20 MEQ PO ×2 (08:06→20:06)
[2023-03-11] MEDS: Juven (unflavored) Packet 1 PACKET PO ×2 (08:07→20:00)
[2023-03-11 10:00] VITALS: PULSE 58; O2SAT 98
[2023-03-11] MEDS: oxyCODONE 5 MG Tablet PO (20:06)
[2023-03-11] MEDS: traZODone 100 MG Tablet 150 MG PO (22:59)
[2023-03-11] MEDS: Atorvastatin Calcium 80 MG Tablet PO (22:59)
[2023-03-11] MEDS: Nystatin Powder 15gm Bottle 1 APPLIC TOPICAL (23:00)
[2023-03-12 06:18] LABS: Bedside Glucose 190 mg/dL (74-106)
[2023-03-12] MEDS: Pregabalin 75 MG Capsule 150 MG PO ×3 (06:28→21:15)
[2023-03-12] MEDS: Losartan Potassium 100 MG Tablet PO (06:28)
[2023-03-12] MEDS: Acetaminophen 500 MG Tablet 1000 MG PO ×3 (06:29→21:15)
[2023-03-12] MEDS: Paroxetine 20 MG Tablet 40 MG PO (06:29)
[2023-03-12] MEDS: Levothyroxine 175 MCG Tablet PO (06:30)
[2023-03-12] MEDS: Senna/Docusate Sodium 1 Tablet PO ×2 (06:30→16:50)
[2023-03-12] MEDS: Pantoprazole Sodium 40 MG Tablet PO (06:30)
[2023-03-12] MEDS: levoFLOXacin 500 MG Tablet PO (06:30)
[2023-03-12 06:31] VITALS: BP 112/59; PULSE 62
[2023-03-12] MEDS: Metoprolol(XL)Succ 100 MG Tablet 150 MG PO (06:31)
[2023-03-12] MEDS: Potassium Chloride Oral Tablet 20 MEQ PO ×2 (07:54→16:50)
[2023-03-12] MEDS: Aspirin E.C. 81 MG Tablet PO (07:54)
[2023-03-12] MEDS: Juven (unflavored) Packet 1 PACKET PO ×2 (07:54→16:50)
[2023-03-12 11:33] LABS: Bedside Glucose 229 mg/dL (74-106)
[2023-03-12] MEDS: Nystatin Powder 15gm Bottle 1 APPLIC TOPICAL ×2 (13:26→21:17)
[2023-03-12 14:35] VITALS: BP 116/53; PULSE 66; RESP 16; TEMP 36.6; O2SAT 96
--- NOTE | 2023-03-12 16:23 | NURSING ---
Pt BS 300. Dr. Ramon updated N.O. for Humalog Medium Sliding Scale. Order read back.
[2023-03-12 16:30] LABS: Bedside Glucose 300 mg/dL (74-106)
[2023-03-12] MEDS: oxyCODONE 5 MG Tablet PO (16:49)
[2023-03-12] MEDS: Insulin Lispro 100 UNIT/ML INSULN.PEN SC (18:04)
[2023-03-12] MEDS: Atorvastatin Calcium 80 MG Tablet PO (21:14)
[2023-03-12] MEDS: traZODone 100 MG Tablet 150 MG PO (21:14)
[2023-03-13 06:40] LABS: Bedside Glucose 241 mg/dL (74-106)
[2023-03-13] MEDS: Acetaminophen 500 MG Tablet 1000 MG PO ×3 (06:46→23:09)
[2023-03-13] MEDS: Pregabalin 75 MG Capsule 150 MG PO ×3 (06:47→23:07)
[2023-03-13] MEDS: Pantoprazole Sodium 40 MG Tablet PO (06:50)
[2023-03-13] MEDS: Paroxetine 20 MG Tablet 40 MG PO (06:50)
[2023-03-13] MEDS: Losartan Potassium 100 MG Tablet PO (06:50)
[2023-03-13] MEDS: levoFLOXacin 500 MG Tablet PO (06:51)
[2023-03-13] MEDS: Senna/Docusate Sodium 1 Tablet PO ×2 (06:51→18:15)
[2023-03-13] MEDS: Levothyroxine 175 MCG Tablet PO (06:51)
[2023-03-13 06:53] VITALS: BP 144/68; PULSE 56
[2023-03-13] MEDS: Metoprolol(XL)Succ 100 MG Tablet 150 MG PO (06:53)
[2023-03-13] MEDS: Insulin Lispro 100 UNIT/ML INSULN.PEN SC ×3 (08:57→18:14)
[2023-03-13] MEDS: Aspirin E.C. 81 MG Tablet PO (08:58)
[2023-03-13] MEDS: Juven (unflavored) Packet 1 PACKET PO ×2 (08:58→18:15)
[2023-03-13] MEDS: Potassium Chloride Oral Tablet 20 MEQ PO ×2 (08:58→18:15)
[2023-03-13] MEDS: Nystatin Powder 15gm Bottle 1 APPLIC TOPICAL ×2 (08:58→23:09)
[2023-03-13 11:07] VITALS: BP 110/59; PULSE 66; RESP 17; TEMP 35.8; O2SAT 94
[2023-03-13 11:35] LABS: Bedside Glucose 332 mg/dL (74-106)
--- NOTE | 2023-03-13 12:58 | NURSING ---
Offered latest covid booster, education about vaccine provided. Patient refuses at this time.
--- NOTE | 2023-03-13 15:28 | WOUNDNOTE ---
wound photo: right foot
[2023-03-13 16:51] LABS: Bedside Glucose 200 mg/dL (74-106)
[2023-03-13] MEDS: traZODone 100 MG Tablet 150 MG PO (23:09)
[2023-03-13] MEDS: Atorvastatin Calcium 80 MG Tablet PO (23:09)
[2023-03-14 06:03] VITALS: BP 115/66; PULSE 56
[2023-03-14] MEDS: Levothyroxine 175 MCG Tablet PO (06:03)
[2023-03-14] MEDS: Losartan Potassium 100 MG Tablet PO (06:04)
[2023-03-14] MEDS: Pantoprazole Sodium 40 MG Tablet PO (06:04)
[2023-03-14] MEDS: Acetaminophen 500 MG Tablet 1000 MG PO ×3 (06:04→22:14)
[2023-03-14] MEDS: Pregabalin 75 MG Capsule 150 MG PO ×3 (06:04→22:13)
[2023-03-14] MEDS: Senna/Docusate Sodium 1 Tablet PO ×2 (06:05→17:17)
[2023-03-14] MEDS: Paroxetine 20 MG Tablet 40 MG PO (06:05)
[2023-03-14] MEDS: levoFLOXacin 500 MG Tablet PO (06:05)
[2023-03-14 06:40] LABS: Bedside Glucose 225 mg/dL (74-106)
[2023-03-14] MEDS: Insulin Lispro 100 UNIT/ML INSULN.PEN SC ×4 (08:02→22:16)
[2023-03-14] MEDS: Potassium Chloride Oral Tablet 20 MEQ PO ×2 (08:04→17:17)
[2023-03-14] MEDS: Juven (unflavored) Packet 1 PACKET PO ×2 (08:04→17:17)
[2023-03-14] MEDS: Nystatin Powder 15gm Bottle 1 APPLIC TOPICAL ×2 (08:04→22:15)
[2023-03-14] MEDS: Aspirin E.C. 81 MG Tablet PO (08:04)
[2023-03-14 11:50] LABS: Bedside Glucose 285 mg/dL (74-106)
[2023-03-14 13:29] VITALS: BMI 37.0
[2023-03-14 14:17] VITALS: BP 133/76; PULSE 67; RESP 16; TEMP 36.8; O2SAT 100
[2023-03-14 17:43] LABS: Bedside Glucose 269 mg/dL (74-106)
[2023-03-14 22:00] VITALS: PULSE 78; RESP 16; O2SAT 99
[2023-03-14] MEDS: traZODone 100 MG Tablet 150 MG PO (22:14)
[2023-03-14] MEDS: Atorvastatin Calcium 80 MG Tablet PO (22:15)
[2023-03-14 22:37] LABS: Bedside Glucose 273 mg/dL (74-106)
[2023-03-15 05:51] LABS: Absolute Lymphocyte Count 2.32 X10^3/uL (0.83-4.51); Absolute Neutrophil Count 2.2 X10^3/uL (2.0-7.7); Basophil# 0.04 X10^3/uL; Basophil% 0.8 % (0-1); Eosinophil# 0.18 X10^3/uL; Eosinophils% 3.4 % (0-5); Hematocrit 34.4 % (37-47); Hemoglobin 10.2 g/dL (12.0-15.0); Lymphocyte # 2.32 X10^3/ul (0.83-4.51); Lymphocyte % 44.2 % (19-41); Mean Corp Hgb Conc 29.7 g/dL (32-36); Mean Corpuscular Hgb 27.4 pg (27.0-32.0); Mean Corpuscular Volume 92.5 fL (81-99); Mean Platelet Vol. 9.2 fl (6.2-12.0); Monocyte# 0.49 X10^3/uL; Monocyte% 9.3 % (0-10); NRBC Flagged by Analyzer 0 % (0-5); Neutrophil % 41.9 % (47-70); Platelet Count 293 K/mm3 (150-450); RBC Distribution Width CV 15.2 % (11.6-14.6); RBC Distribution Width SD 50.9 fl (35.1-43.9); Red Blood Count 3.72 M/mm3 (4.2-5.4); White Blood Count 5.3 K/mm3 (4.4-11.0)
[2023-03-15] MEDS: Paroxetine 20 MG Tablet 40 MG PO (06:07)
[2023-03-15] MEDS: Pantoprazole Sodium 40 MG Tablet PO (06:08)
[2023-03-15] MEDS: Losartan Potassium 100 MG Tablet PO (06:08)
[2023-03-15] MEDS: Levothyroxine 175 MCG Tablet PO (06:08)
[2023-03-15] MEDS: levoFLOXacin 500 MG Tablet PO (06:08)
[2023-03-15 06:09] VITALS: BP 149/68; PULSE 80
[2023-03-15] MEDS: Acetaminophen 500 MG Tablet 1000 MG PO ×3 (06:09→21:35)
[2023-03-15] MEDS: Metoprolol(XL)Succ 100 MG Tablet 150 MG PO (06:09)
[2023-03-15] MEDS: Pregabalin 75 MG Capsule 150 MG PO ×3 (06:09→21:36)
[2023-03-15] MEDS: Senna/Docusate Sodium 1 Tablet PO ×2 (06:10→17:42)
--- NOTE | 2023-03-15 06:15 | NURSING ---
patient sagrario not available to be administered at this time as ordered, patient states daughter to bring in later today
[2023-03-15 06:46] LABS: Anion Gap 4 (5-15); BUN 24 mg/dL (7-18); BUN/Creat Ratio 37.9 RATIO (10-20); Calcium,Total 8.4 mg/dL (8.5-10.1); Chloride 103 mmol/L (98-107); Creatinine, Serum 0.63 mg/dL (0.55-1.02); EST Glomerular Filtration Rate 102 mL/min (>60); Est Glom Filt Rate - Afr Amer 124 mL/min (>60); Estimated Creatinine Clearance 98.19 ml/min; Glucose 214 mg/dL (74-106); Potassium 3.8 mmol/L (3.5-5.1); Sodium Level 140 mmol/L (136-145)
[2023-03-15 07:19] LABS: Bedside Glucose 186 mg/dL (74-106)
[2023-03-15] MEDS: Aspirin E.C. 81 MG Tablet PO (07:56)
[2023-03-15] MEDS: Insulin Lispro 100 UNIT/ML INSULN.PEN SC ×3 (07:56→17:41)
[2023-03-15] MEDS: Potassium Chloride Oral Tablet 20 MEQ PO ×2 (07:56→17:42)
[2023-03-15] MEDS: Juven (unflavored) Packet 1 PACKET PO ×2 (07:56→17:42)
[2023-03-15 11:43] LABS: Bedside Glucose 269 mg/dL (74-106)
[2023-03-15] MEDS: Tuberculin,Purif.prot.deriv. 50 TU/ML Vial 0.1 ML ID (11:45)
[2023-03-15] MEDS: Nystatin Powder 15gm Bottle 1 APPLIC TOPICAL ×2 (11:45→21:37)
[2023-03-15 11:55] VITALS: PULSE 66; O2SAT 98
--- NOTE | 2023-03-15 13:04 | WOUNDNOTE ---
wound photo: right foot
--- NOTE | 2023-03-15 13:27 | CASEMGMT ---
Addendum entered by Verito Bassett 03/15/23 15:21: Insurance approved with [employer] 03/17 and indicating LCD 03/19 as pt is improving well. SW confirmed with wound nurse there is no anticipated time frame for DC of the wound vac. Pt would DC home with wound vac. Dtr still present with pt. SW spoke with pt and dtr to update. Both are agreeable to DC. Dtr states she works 12 hrs on 03/20. SW offered DC 03/18 or 03/19. Pt/dtr electing 03/19. Dtr offered for pt to stay at dtr's house. Pt to decide and notify this worker. Dtr lives in [facility]. SW to coordinate skilled HHC agency that can service both locations. SW provided printed skilled HHC list with quality and resource data for pt/dtr to review. SW updated wound nurse on DC date. Plan: DC home 03/19 with dtr support, HHC PT/OT/SN. Original Note: Social Work IDT met with patient and dtr for care plan meeting. Discussed patient's progress in PT/OT/SN. Educated to [facility] insurance with [employer] 03/15, EDC 03/24, continued stay is not guaranteed with each review. Pt has wound vac and PO ATB. Pt's goal is to return home once wound is healed and and closer to PLOF. Pt lives home alone. Pt requesting w/c at home. SW to coordinate at DC. Will continue to follow for DC planning. Verito Bassett, GENTRY SANCHEZW
[2023-03-15 14:56] VITALS: BP 122/57; PULSE 64; RESP 16; TEMP 36.1; O2SAT 95
[2023-03-15 16:41] LABS: Bedside Glucose 220 mg/dL (74-106)
[2023-03-15 17:10] LABS: Bedside Glucose 125 mg/dL (74-106)
[2023-03-15 17:12] LABS: Bedside Glucose 122 mg/dL (74-106)
[2023-03-15 17:12] LABS: Bedside Glucose 125 mg/dL (74-106)
--- NOTE | 2023-03-15 19:01 | NURSING ---
ELECTRONIC PLOTTING SYSTEM OPERATOR came to this nurse after she thought she seen a vape pen in pt's pocket. Pt confronted and denied using a vape pen in room. Educated pt that we are a non-smoking facility.
--- NOTE | 2023-03-15 20:08 | DS.PCM_ITS ---
Providers Date of Admission: 03/07/23 Primary Care Physician: Dr. Gulshan Early MD Consultations 03/07/23 14:55 Consult: Onc/Wound/patient transport officer Routine Comment: wound VAC Reason for Consult:: right foot wound 03/07/23 22:42 Consult: Podiatry Routine Consulting Provider: Tereso Navarro Reason for Consult: Right foot osteo, s/p right 5th toe amp, s/p right 5th metatarsal partial EMERGENT Consult: No MD Notified: Yes Date Notified: 03/08/23 Time Notified: 09:50 Method of Notification: Answering Service Reason For Visit: OSTEO Diagnosis Discharge Diagnosis (1) Obesity: Status: Chronic Code(s): E66.9 - Obesity, unspecified (2) Diabetic foot ulcer: Status: Acute Code(s): E11.621 - Type 2 diabetes mellitus with foot ulcer; L97.509 - Non-pressure chronic ulcer of other part of unspecified foot with unspecified severity (3) Cellulitis of right lower limb: Status: Acute Code(s): L03.115 - Cellulitis of right lower limb (4) Type 2 diabetes mellitus with foot ulcer: Status: Acute Code(s): E11.621 - Type 2 diabetes mellitus with foot ulcer; L97.509 - Non-pressure chronic ulcer of other part of unspecified foot with unspecified severity (5) Foot osteomyelitis, right: Status: Acute Code(s): M86.9 - Osteomyelitis, unspecified (6) Non-pressure chronic ulcer of other part of right foot with fat layer exposed: Status: Chronic Code(s): L97.512 - Non-pressure chronic ulcer of other part of right foot with fat layer exposed (7) History of partial ray amputation of fifth toe of right foot: Status: Acute Code(s): Z89.421 - Acquired absence of other right toe(s) (8) Diabetes mellitus with diabetic polyneuropathy: Status: Acute Code(s): E11.42 - Type 2 diabetes mellitus with diabetic polyneuropathy Plan 57 year old female with below past medical history hospitalized for osteom yelitis right foot, underwent right 5th toe amputation, partial 5th metatarsal amputation 03/02/[address] Navarro, admitted to TCU with debility, here for rehabilitation, strengthening, prior to discharge home alone. * Debility - PT/OT. * Pain - Tylenol 1000mg q8h, Tramadol 50mg q6h prn pain (1-5), Oxycodone 5mg q4h prn pain (6-10). * Bowel - senna/colace 1 tablet bid, Magnesium citrate 300ml po x 1 prn. * Adult immunization - Administer pneumonia vaccine, covid19 vaccine, flu vaccine as appropriate. * DVT prophylaxis - Hold, monitor. * CV prophylaxis - Aspirin 81mg daily. * Hyperlipidemia - Atorvastatin 80mg qhs. * Diabetes Mellitus II - Metformin 1000mg bidcm, Glimepiride 4mg bid, Jardiance 25mg daily, Glargine 55 units daily, Mounjaro 2.5mg qweek. * Osteomyelitis right foot status post amputation - Levaquin 500mg daily thru 04/14/2023, Consult Dr. Navarro. * Hypothyroidism - Levothyroxine 175mcg daily. * Hypertension - Metoprolol succinate 200mg daily, Losartan 100mg daily. * Tinea Corporis - Nystatin topical bid. * GERD - Pantoprazole 40mg daily. * Depression - Paroxetine 40mg daily, stable chronic custodial use, GDR not recommended. * Hypokalemia - KCL 20meq daily. * Diabetic polyneuropathy - Lyrica 150mg tid. 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 Medications at Discharge Home Medications celecoxib 200 mg capsule 200 mg PO DAILY ARTHRITIS/INFLAMMATION 10/18/18 loratadine 10 mg capsule 10 mg PO DAILY ALLERGIES 10/18/18 metformin 1,000 mg tablet 1,000 mg PO BID DIABETES 10/18/18 montelukast 10 mg tablet 10 mg PO QHS ASTHMA/ALLERGIES 10/18/18 omeprazole 40 mg capsule,delayed release 40 mg PO DAILY ACID REFLUX 10/18/18 calcium carbonate 500 mg-vitamin D3 10 mcg (400 unit) tablet 1 ea PO DAILY SUPPLEMENT 10/29/19 paroxetine HCl 40 mg tablet 40 mg PO DAILY DEPRESSION 10/29/19 potassium chloride 20 mEq tablet,extended release(part/cryst) 20 meq PO DAILY SUPPLEMENT 10/29/19 pregabalin 150 mg capsule 150 mg PO TID NERVE PAIN 10/29/19 aspirin 81 mg tablet,delayed release (Adult Low Dose Aspirin) 81 mg PO DAILY HEART HEALTH 11/10/20 cilostazol 100 mg tablet 100 mg PO DAILY CHOLESTEROL 07/21/20 levothyroxine 175 mcg tablet 175 mcg PO DAILY THYROID 07/21/20 metoprolol succinate 200 mg tablet,extended release 24 hr 200 mg PO DAILY BLOOD PRESSURE 07/21/20 albuterol sulfate 90 mcg/actuation aerosol inhaler (ProAir HFA) 1 inh inhalation Q6H PRN SHORTNESS OF BREATH 08/26/22 ferrous sulfate 325 mg (65 mg iron) tablet (iron) 325 mg PO DAILY ANEMIA rosuvastatin 40 mg tablet (Crestor) 40 mg PO DAILY CHOLESTEROL 08/26/22 pen needle, diabetic 32 gauge x 5/32 (BD Ultra-Fine Catalina Pen Needle) #100 ea 02/13/23 dapagliflozin propanediol 10 mg tablet (Farxiga) 10 mg PO DAILY DIABETES 03/01/23 glimepiride 4 mg tablet 4 mg PO BID DIABETES 03/01/23 insulin detemir U-100 100 unit/mL (3 mL) subcutaneous pen (Levemir FlexPen) 55 unit subcut DAILY DIABETES 03/01/23 ipratropium bromide 42 mcg (0.06 %) nasal spray 2 spray intranasal DAILY NASAL DRAINAGE 03/01/23 losartan 100 mg tablet 100 mg PO DAILY BLOOD PRESSURE 03/01/23 multivitamin 1 tab PO DAILY HEALTH MAINTENANCE 03/01/23 tirzepatide 2.5 mg/0.5 mL subcutaneous pen injector (Mounjaro) 2.5 mg subcut WE DIABETES 03/01/23 trazodone 100 mg tablet 200 mg PO QHS SLEEP 03/01/23 vitamin B complex 1 cap PO DAILY SUPPLEMENT 03/01/23 levofloxacin 500 mg tablet 500 mg PO DAILY antibiotic 03/07/23 Hospital Course Operations - (See below.) Procedures None Summary of Care Provided Minutes Spent on Discharge: 35 Hospital Course: 57 year old female with below past medical history hospitalized for osteomyelitis right foot, underwent right 5th toe amputation, partial 5th metatarsal amputation 03/02/[address] Navarro, admitted to TCU with debility, here for rehabilitation, strengthening, prior to discharge home alone. Discharge home 03/19/2023 with daughter support, Home Health Care PT/OT/SN. Physical Exam Const alert General Appearance: cooperative HEENT normocephalic Eyes PERRL and EOMs intact bilaterally Neck supple, no JVD and no carotid bruits Resp normal respiratory effort, normal air movement and clear to auscultation bilat erally Cardio regular rate and regular rhythm GI normal to inspection, nondistended, normoactive bowel sounds, non-tender and non-distended Extremity normal capillary refill General Extremity: Negative for edema Skin no rashes or lesions noted General Skin Exam: no breakdown Psych affect normal Appearance: appropriate Weight / BMI Weight Weight: 110.421 kg Body Mass Index (BMI) 37.0 ABG / Lab / Microbiology Data 03/15/23 05:13 03/15/23 05:13 Laboratory: Laboratory Results - last 24 hr 03/03/23 16:00: POC Glucose 125 H 03/04/23 11:00: POC Glucose 125 H 03/04/23 16:00: POC Glucose 122 H 03/14/23 22:12: POC Glucose 273 H 03/15/23 05:13: WBC 5.3, RBC 3.72 L, Hgb 10.2 L, Hct 34.4 L, MCV 92.5, MCH 27.4, MCHC 29.7 L, RDW Std Deviation 50.9 H, RDW Coeff of Kami 15.2 H, Plt Count 293, MPV 9.2, Immature Gran % (Auto) 0.400, Neut % (Auto) 41.9 L, Lymph % (Auto) 44.2 H, [place] % (Auto) 9.3, Eos % (Auto) 3.4, Baso % (Auto) 0.8, Absolute Neuts (auto) 2.2, Absolute Lymphs (auto) 2.32, Nucleated RBC % 0, Sodium 140, Potassium 3.8, Chloride 103, Carbon Dioxide 33.0 H, Anion Gap 4 L, BUN 24 H, Creatinine 0.63, Estim Creat Clear Calc 98.19, Est GFR (MDRD) Af Amer 124, Est GFR (MDRD) Non-Af 102, BUN/Creatinine Ratio 37.9 H, Glucose 214 H, Calcium 8.4 L 03/15/23 06:32: POC Glucose 186 H 03/15/23 11:17: POC Glucose 269 H 03/15/23 16:15: POC Glucose 220 H D/C Instructions Discharge Diet: No restrictions Discharge Activity: Return to Normal Activity, May Shower and Use Walker Weight Bearing Status: No weight bearing (Right lower extremity.) Call your doctor if you observe: Fever of 101 or Higher, Inability to urinate, Inability to have a bowel movement, Shortness of breath, Dizziness, Fainting spells, Swelling in the ankles, Chest pain and Uncontrolled pain Additional Instructions: Discharge home 03/19/2023 with daughter support, Home Health Care PT/OT/SN. Please Follow Up With: Zack Smith DPM When: 1 week. Meaningful Use Info Meaningful Use Diagnoses (Choose all that apply): None applicable Discharge Plan Admission Admit Date/Time: 03/07/23 13:10 Primary Reason for Your Visit: Debility. Attending Provider: Gulshan Early Chi Primary Care Provider: Gulshan Early Chi Consulting Providers: Tereso Navarro Instructions Additional Instructions / Restrictions: Discharge home 03/19/2023 with daughter support, Home Health Care PT/OT/SN. Discharge Orders/Prescriptions Prescriptions: No Action celecoxib 200 mg capsule 200 mg PO DAILY montelukast 10 mg tablet 10 mg PO QHS metformin 1,000 mg tablet 1,000 mg PO BID omeprazole 40 mg capsule,delayed release(DR/EC) 40 mg PO DAILY loratadine 10 mg capsule 10 mg PO DAILY cilostazol 100 mg tablet 100 mg PO DAILY levothyroxine 175 mcg tablet 175 mcg PO DAILY aspirin [Adult Low Dose Aspirin] 81 mg tablet,delayed release (DR/EC) 81 mg PO DAILY metoprolol succinate 200 mg tablet extended release 24 hr 200 mg PO DAILY (DME) pen needle, diabetic [BD Ultra-Fine Catalina Pen Needle] 32 gauge x 5/32 needle See Rx Instructions .Route Qty: 100 3RF Rx Instructions: daily potassium chloride 20 MEQ tablet 20 meq PO DAILY paroxetine HCl 40 MG tablet 40 mg PO DAILY pregabalin 150 MG capsule 150 mg PO TID calcium carbonate-vitamin D3 1 EACH tablet 1 ea PO DAILY ferrous sulfate [iron] 325 mg (65 mg iron) Tablet 325 mg PO DAILY albuterol sulfate [ProAir HFA] 90 mcg/actuation Hfa Aerosol Inhaler 1 inh INHALATION Q6H PRN (Reason: SHORTNESS OF BREATH ) rosuvastatin [Crestor] 40 mg Tablet 40 mg PO DAILY multivitamin Tablet 1 tab PO DAILY trazodone 100 mg tablet 200 mg PO QHS glimepiride 4 mg tablet 4 mg PO BID ipratropium bromide 42 mcg (0.06 %) spray,non-aerosol 2 spray INTRANASAL DAILY losartan 100 mg tablet 100 mg PO DAILY vitamin B complex Capsule 1 cap PO DAILY Farxiga 10 mg tablet 10 mg PO DAILY Levemir FlexPen 100 unit/mL (3 mL) insulin pen 55 unit subcut DAILY Mounjaro 2.5 mg/0.5 mL pen injector 2.5 mg subcut WE levofloxacin 500 mg tablet 500 mg PO DAILY Referrals / Follow Up: Gulshan Early Chi, MD [Primary Care Provider] - Disposition Disposition (needs filled in before D/C Order can be placed): Home Health Service
[2023-03-15 21:23] LABS: Bedside Glucose 185 mg/dL (74-106)
[2023-03-15] MEDS: Atorvastatin Calcium 80 MG Tablet PO (21:35)
[2023-03-15] MEDS: traZODone 100 MG Tablet 150 MG PO (21:35)
[2023-03-16 05:55] VITALS: BP 151/61; PULSE 60
[2023-03-16] MEDS: Metoprolol(XL)Succ 100 MG Tablet 150 MG PO (05:55)
[2023-03-16] MEDS: levoFLOXacin 500 MG Tablet PO (05:56)
[2023-03-16] MEDS: Levothyroxine 175 MCG Tablet PO (05:56)
[2023-03-16] MEDS: Pantoprazole Sodium 40 MG Tablet PO (05:56)
[2023-03-16] MEDS: Senna/Docusate Sodium 1 Tablet PO ×2 (05:56→16:53)
[2023-03-16] MEDS: Pregabalin 75 MG Capsule 150 MG PO ×3 (05:56→22:35)
[2023-03-16] MEDS: Losartan Potassium 100 MG Tablet PO (05:57)
[2023-03-16] MEDS: Acetaminophen 500 MG Tablet 1000 MG PO ×3 (05:57→22:37)
[2023-03-16] MEDS: Paroxetine 20 MG Tablet 40 MG PO (05:57)
[2023-03-16 06:45] LABS: Bedside Glucose 182 mg/dL (74-106)
[2023-03-16 06:57] VITALS: BP 151/61; PULSE 60
[2023-03-16] MEDS: Juven (unflavored) Packet 1 PACKET PO ×2 (08:08→16:53)
[2023-03-16] MEDS: Aspirin E.C. 81 MG Tablet PO (08:08)
[2023-03-16] MEDS: Potassium Chloride Oral Tablet 20 MEQ PO ×2 (08:08→16:53)
[2023-03-16] MEDS: Nystatin Powder 15gm Bottle 1 APPLIC TOPICAL ×2 (08:09→22:37)
[2023-03-16 11:48] LABS: Bedside Glucose 240 mg/dL (74-106)
[2023-03-16 16:00] VITALS: BP 153/71; PULSE 67; RESP 16; TEMP 36.1
[2023-03-16 17:40] LABS: Bedside Glucose 173 mg/dL (74-106)
[2023-03-16 22:00] VITALS: PULSE 64; RESP 14; O2SAT 96
[2023-03-16 22:09] LABS: Bedside Glucose 291 mg/dL (74-106)
[2023-03-16] MEDS: Atorvastatin Calcium 80 MG Tablet PO (22:37)
[2023-03-16] MEDS: traZODone 100 MG Tablet 150 MG PO (22:38)
[2023-03-17] MEDS: Pregabalin 75 MG Capsule 150 MG PO ×3 (05:24→22:13)
[2023-03-17 05:27] VITALS: BP 115/51; PULSE 62
[2023-03-17] MEDS: levoFLOXacin 500 MG Tablet PO (05:27)
[2023-03-17] MEDS: Losartan Potassium 100 MG Tablet PO (05:27)
[2023-03-17] MEDS: Pantoprazole Sodium 40 MG Tablet PO (05:27)
[2023-03-17] MEDS: Levothyroxine 175 MCG Tablet PO (05:27)
[2023-03-17] MEDS: Senna/Docusate Sodium 1 Tablet PO ×2 (05:27→17:38)
[2023-03-17] MEDS: Metoprolol(XL)Succ 100 MG Tablet 150 MG PO (05:27)
[2023-03-17] MEDS: Acetaminophen 500 MG Tablet 1000 MG PO ×3 (05:27→22:13)
[2023-03-17] MEDS: Paroxetine 20 MG Tablet 40 MG PO (05:28)
[2023-03-17 06:29] LABS: Bedside Glucose 213 mg/dL (74-106)
[2023-03-17] MEDS: Aspirin E.C. 81 MG Tablet PO (08:44)
[2023-03-17] MEDS: Insulin Lispro 100 UNIT/ML INSULN.PEN 10 UNIT SC (08:44)
[2023-03-17] MEDS: Juven (unflavored) Packet 1 PACKET PO ×2 (08:45→17:39)
[2023-03-17] MEDS: Potassium Chloride Oral Tablet 20 MEQ PO ×2 (08:45→17:39)
[2023-03-17] MEDS: Nystatin Powder 15gm Bottle 1 APPLIC TOPICAL ×2 (08:47→22:14)
--- NOTE | 2023-03-17 09:19 | PCM.PROGNOTE ---
Objective Data Objective Data Vital Signs: Vital Signs Temp Pulse Resp BP Pulse Ox O2 Del Method FiO2 96.9 F L 62 14 115/51 L 96 Room Air 21 03/16/23 16:00 03/17/23 05:27 03/16/23 22:00 03/17/23 05:27 03/16/23 22:00 03/16/23 22:00 03/08/23 21:53 Oxygen Delivery Method Room Air Weight: 110.421 kg Body Mass Index (BMI) 37.0 Intake & Output: Intake and Output for Last 24 Hours 03/15/23 03/16/23 03/17/23 23:59 23:59 23:59 Intake Total 1080 / 1080 840 / 840 Output Total 500 / 500 Balance 580 / 580 840 / 840 Lab / Micro Data 03/15/23 05:13 03/15/23 05:13 Labs: Laboratory Results - last 24 hr 03/16/23 11:13: POC Glucose 240 H 03/16/23 17:18: POC Glucose 173 H 03/16/23 21:51: POC Glucose 291 H 03/17/23 06:11: POC Glucose 213 H Physical Exam Const alert, oriented x3 and no apparent distress HEENT normocephalic Eyes General Eye: normal appearance of both eyes Neck General: normal visual inspection Lymph Lymphatic: no lymphadenopathy noted and no lymphedema noted Resp normal respiratory effort Cardio regular rate and regular rhythm Extremity normal capillary refill, no calf tenderness and no pedal edema Extremity Narrative: DP and PT pulses palpable with adequate capillary fill time to the digits of the right foot. Dermatological: Right foot fifth digit amputation and fifth metatarsal head amputation noted. Distal wound is noted with proximal sutures intact. wound base is healthy and viable in appearance with goose pimple texture consistent with granular tissue. No purulent drainage, no malodor, no erythema, no palpable fluctuance/bogginess noted, no visible abscess formation, no lymphangitic streaking. Musculoskeletal: Muscle strength is 5 of 5 age-appropriate. No pain to palpation about the amputation stump or along suture line. 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 DOS: 03/02/2023, 2 weeks post op Surgical cultures demonstrate strep agalactiae and PsA. Patient on IV antibiotic therapy per infectious disease recommendation Wound VAC removed from right amputation stump and wound was inspected. Right foot fifth digit amputation and fifth metatarsal head amputation noted. Distal wound is noted with proximal sutures intact. wound base is healthy and viable in appearance with goose pimple texture consistent with granular tissue. No signs of infection. Cellulitis resolved. Currently healing well Wound VAC was reapplied to the distal amputation stump. Wound VAC seal achieved and is set to 125 mm intermittent pressure. Wound VAC to be changed M, W, F. Wound nurse is assisting in dressing changes, she is greatly appreciated Patient is to remain nonweightbearing to the right foot. Podiatry will continue to follow weekly Please do not hesitate to call for any questions or concerns Gautam Walters D.P.M. [facility] [phone]
--- NOTE | 2023-03-17 11:32 | CASEMGMT ---
Addendum entered by Verito Bassett 03/17/23 15:14: No other [facility] agency can accept pt d/t to staffing or OON. However, [facility] phoned this worker that they had a cancelation and can provide services with SOC 03/20. Pt has PCP appt 03/[address] Early verbally agreed to follow orders prior to appt. SW updated [facility]. SW spoke with pt about [facility] acceptance and w/c approved through [employer]. Pt has FWW at home, but it is older than 5 years, and that is why the FWW was requested. [employer] will deliver to pt's room or dtr will cigar packer and picker from [place]. SW coordinating home wound vac with wound nurse. Wound nurse has not obtained approval from insurance at this time for home vac, and it may not be until next business day, 03/20. Insurance has approved with [employer] 03/19, it was for dtr's schedule to prefer DC 03/19. SW explained to pt that if wound vac is not approved until 03/20, SW to assist with transport home on 03/20. Pt expressed understanding. Plan: DC to dtr's home 03/19, pending home wound vac approval, with [facility] PT/OT/SN, w/c GENTRY Vogt CONSERVATION AGENT Addendum entered by Verito Bassett 03/17/23 13:57: [facility] is verifying insurance. [facility] is not INN w/insurance. SW referred to several other [facility] agencies via [employer] d/t to complexity. [employer] also requesting w/c and FWW. SW can coordinate w/c but pt will need to pay OOP for walker as insurance only pays for one ambulation device and w/c is more expensive. SW sent referral to [facility] for w/c via [employer]. Will continue to follow. Original Note: Social Work SW followed up with pt on [facility] agency and DC location. Pt selected [facility], [facility] and [facility]. Pt will DC to dtr's house in [place]. Address added in pt's chart. SW phoned referral to [facility] and they cannot staff referral for SOC needed. SW sent referral to [facility] and [facility] via [employer]. Verito Bassett GENTRY SANCHEZW
[2023-03-17 11:48] VITALS: PULSE 64; RESP 16; O2SAT 94
[2023-03-17 11:51] LABS: Bedside Glucose 267 mg/dL (74-106)
[2023-03-17] MEDS: Insulin Lispro 100 UNIT/ML INSULN.PEN 15 UNIT SC ×2 (12:12→17:38)
[2023-03-17 16:00] VITALS: BP 113/65; PULSE 64; RESP 17; TEMP 36.8; O2SAT 95
--- NOTE | 2023-03-17 16:13 | CASEMGMT ---
Social Work BIMS () and PHQ-9 () completed for MDS assessment. Verito Bassett MSW PERSONAL SECURITY SPECIALIST
[2023-03-17 16:48] LABS: Bedside Glucose 245 mg/dL (74-106)
[2023-03-17 21:50] LABS: Bedside Glucose 150 mg/dL (74-106)
[2023-03-17] MEDS: Atorvastatin Calcium 80 MG Tablet PO (22:13)
[2023-03-17] MEDS: traZODone 100 MG Tablet 150 MG PO (22:13)
[2023-03-17] MEDS: Insulin Glargine-YFGN 100 UNIT/ML Pen 30 UNIT SC (22:14)
[2023-03-18] MEDS: Senna/Docusate Sodium 1 Tablet PO ×2 (05:34→17:51)
[2023-03-18] MEDS: Paroxetine 20 MG Tablet 40 MG PO (05:34)
[2023-03-18] MEDS: Levothyroxine 175 MCG Tablet PO (05:34)
[2023-03-18] MEDS: Losartan Potassium 100 MG Tablet PO (05:34)
[2023-03-18] MEDS: Acetaminophen 500 MG Tablet 1000 MG PO ×3 (05:34→23:05)
[2023-03-18] MEDS: levoFLOXacin 500 MG Tablet PO (05:34)
[2023-03-18] MEDS: Pregabalin 75 MG Capsule 150 MG PO ×3 (05:34→23:05)
[2023-03-18 05:36] VITALS: BP 152/70; PULSE 73
[2023-03-18] MEDS: Metoprolol(XL)Succ 100 MG Tablet 150 MG PO (05:36)
[2023-03-18] MEDS: Pantoprazole Sodium 40 MG Tablet PO (05:36)
[2023-03-18 06:33] LABS: Bedside Glucose 176 mg/dL (74-106)
[2023-03-18] MEDS: Insulin Lispro 100 UNIT/ML INSULN.PEN 15 UNIT SC (08:03)
[2023-03-18] MEDS: Potassium Chloride Oral Tablet 20 MEQ PO ×2 (08:04→17:51)
[2023-03-18] MEDS: Aspirin E.C. 81 MG Tablet PO (08:04)
[2023-03-18] MEDS: Nystatin Powder 15gm Bottle 1 APPLIC TOPICAL ×2 (08:04→23:06)
[2023-03-18] MEDS: Juven (unflavored) Packet 1 PACKET PO (08:04)
[2023-03-18 09:55] VITALS: BP 125/72; PULSE 69; RESP 17; TEMP 36.4; O2SAT 93
[2023-03-18 11:02] LABS: Bedside Glucose 231 mg/dL (74-106)
[2023-03-18] MEDS: Insulin Lispro 100 UNIT/ML INSULN.PEN SC ×2 (11:53→17:51)
[2023-03-18 16:46] LABS: Bedside Glucose 181 mg/dL (74-106)
[2023-03-18 21:26] LABS: Bedside Glucose 251 mg/dL (74-106)
[2023-03-18] MEDS: Atorvastatin Calcium 80 MG Tablet PO (23:05)
[2023-03-18] MEDS: Insulin Glargine-YFGN 100 UNIT/ML Pen 30 UNIT SC (23:05)
[2023-03-18] MEDS: traZODone 100 MG Tablet 150 MG PO (23:06)
[2023-03-19] MEDS: Acetaminophen 500 MG Tablet 1000 MG PO ×3 (05:16→21:28)
[2023-03-19] MEDS: Pregabalin 75 MG Capsule 150 MG PO ×3 (05:16→21:30)
[2023-03-19 05:17] VITALS: BP 127/61; PULSE 60
[2023-03-19] MEDS: Metoprolol(XL)Succ 100 MG Tablet 150 MG PO (05:17)
[2023-03-19] MEDS: Senna/Docusate Sodium 1 Tablet PO ×2 (05:18→21:32)
[2023-03-19] MEDS: Pantoprazole Sodium 40 MG Tablet PO (05:18)
[2023-03-19] MEDS: Losartan Potassium 100 MG Tablet PO (05:18)
[2023-03-19] MEDS: levoFLOXacin 500 MG Tablet PO (05:18)
[2023-03-19] MEDS: Levothyroxine 175 MCG Tablet PO (05:18)
[2023-03-19] MEDS: Paroxetine 20 MG Tablet 40 MG PO (05:19)
[2023-03-19 06:28] LABS: Bedside Glucose 208 mg/dL (74-106)
[2023-03-19] MEDS: Insulin Lispro 100 UNIT/ML INSULN.PEN SC (07:56)
[2023-03-19] MEDS: Aspirin E.C. 81 MG Tablet PO (07:57)
[2023-03-19] MEDS: Potassium Chloride Oral Tablet 20 MEQ PO ×2 (07:57→21:31)
[2023-03-19] MEDS: Nystatin Powder 15gm Bottle 1 APPLIC TOPICAL ×2 (07:57→21:33)
[2023-03-19 11:14] VITALS: BP 133/74; PULSE 69; RESP 18; TEMP 36.4; O2SAT 93
[2023-03-19 11:21] LABS: Bedside Glucose 229 mg/dL (74-106)
[2023-03-19] MEDS: Insulin Lispro 100 UNIT/ML INSULN.PEN 10 UNIT SC (11:53)
--- NOTE | 2023-03-19 13:18 | NURSING ---
Wound vac removed. Replaced with wet to dry for PILAR.
--- NOTE | 2023-03-19 14:36 | NURSING ---
Patient leaving with daughter. PILAR order in place.
[2023-03-19] MEDS: Juven (unflavored) Packet 1 PACKET PO (21:24)
[2023-03-19] MEDS: traZODone 100 MG Tablet 150 MG PO (21:29)
[2023-03-19] MEDS: Atorvastatin Calcium 80 MG Tablet PO (21:29)
[2023-03-19] MEDS: Insulin Glargine-YFGN 100 UNIT/ML Pen 30 UNIT SC (21:34)
[2023-03-19 21:49] LABS: Bedside Glucose 249 mg/dL (74-106)
[2023-03-20] MEDS: levoFLOXacin 500 MG Tablet PO (05:50)
[2023-03-20] MEDS: Pregabalin 75 MG Capsule 150 MG PO ×2 (05:50→13:42)
[2023-03-20] MEDS: Acetaminophen 500 MG Tablet 1000 MG PO ×2 (05:50→13:41)
[2023-03-20] MEDS: Levothyroxine 175 MCG Tablet PO (05:51)
[2023-03-20] MEDS: Senna/Docusate Sodium 1 Tablet PO (05:51)
[2023-03-20] MEDS: Pantoprazole Sodium 40 MG Tablet PO (05:51)
[2023-03-20] MEDS: Losartan Potassium 100 MG Tablet PO (05:51)
[2023-03-20] MEDS: Paroxetine 20 MG Tablet 40 MG PO (05:52)
[2023-03-20 06:00] VITALS: BP 143/62; PULSE 54
--- NOTE | 2023-03-20 06:07 | NURSING ---
Metoprolol Succinate held at this time d/t low HR at 54. Will report to oncoming nurse. Wet to dry dressing to rt foot wound completed.
[2023-03-20 06:31] LABS: Bedside Glucose 157 mg/dL (74-106)
[2023-03-20 08:28] VITALS: BP 127/68; PULSE 69
[2023-03-20] MEDS: Metoprolol(XL)Succ 100 MG Tablet 150 MG PO (08:28)
[2023-03-20] MEDS: Potassium Chloride Oral Tablet 20 MEQ PO (08:29)
[2023-03-20] MEDS: Juven (unflavored) Packet 1 PACKET PO (08:29)
[2023-03-20] MEDS: Aspirin E.C. 81 MG Tablet PO (08:29)
[2023-03-20] MEDS: Insulin Lispro 100 UNIT/ML INSULN.PEN 10 UNIT SC ×2 (08:29→12:10)
[2023-03-20] MEDS: Nystatin Powder 15gm Bottle 1 APPLIC TOPICAL (08:29)
--- NOTE | 2023-03-20 08:39 | MDS.RN ---
Information for the mds was obtained from review of the clinical record, interview of resident, staff and direct observation of resident's care.
--- NOTE | 2023-03-20 09:50 | CASEMGMT ---
Social Work BIMS and PHQ-9 completed for MDS assessment. Verito Bassett, DRAW TENDER SELF DEFENSE INSTRUCTOR
[2023-03-20 11:41] LABS: Bedside Glucose 290 mg/dL (74-106)
--- NOTE | 2023-03-20 12:00 | CASEMGMT ---
Addendum entered by Verito Bassett 03/20/23 14:21: Received call from wound nurse that insurance denied home vac. Nurse spoke with Dr and updated order for dressing changes. Pt will complete and dtr to assist at home. MALIA spoke with pt confirm DC and no concerns. Pt has transport for DC today. MALIA phoned [facility] to update. Plan: DC to dtr's house 03/21, [facility] PT/OT/SN Original Note: Social Work Precert has not be obtained for home wound vac, per wound nurse. Awaiting approval this date for pt to DC home. MALIA updated [facility]. Will continue to follow. GENTRY VogtW
--- NOTE | 2023-03-20 14:02 | WOUNDNOTE ---
wound photo: right foot
[2023-03-20 14:56] VITALS: BP 134/77; PULSE 62; RESP 16; TEMP 36.2; O2SAT 98
== END 2023-03-20 14:35 | disposition home health service (06) | DRG 560 ==
PROVIDERS: Internal Medicine; Admitting Provider Family Medicine Geriatric Medicine; PCP Family Medicine Geriatric Medicine; Visit Provider Family Medicine Geriatric Medicine
DX: Z47.81 Encounter for orthopedic aftercare following surgical amputation (principal); M86.8X7 Other osteomyelitis, ankle and foot; L03.115 Cellulitis of right lower limb; L97.512 Non-pressure chronic ulcer of other part of right foot with fat layer exposed; E11.42 Type 2 diabetes mellitus with diabetic polyneuropathy; B35.4 Tinea corporis; E11.51 Type 2 diabetes mellitus with diabetic peripheral angiopathy without gangrene; E11.69 Type 2 diabetes mellitus with other specified complication; E11.621 Type 2 diabetes mellitus with foot ulcer; Z79.4 Long term (current) use of insulin; Z89.421 Acquired absence of other right toe(s); I10 Essential (primary) hypertension; E78.5 Hyperlipidemia, unspecified; E89.0 Postprocedural hypothyroidism; M79.7 Fibromyalgia; K21.9 Gastro-esophageal reflux disease without esophagitis; E87.6 Hypokalemia; F32.A Depression, unspecified; B95.5 Unspecified streptococcus as the cause of diseases classified elsewhere; Z79.82 Long term (current) use of aspirin; G47.00 Insomnia, unspecified; Z79.02 Long term (current) use of antithrombotics/antiplatelets; Z79.899 Other long term (current) drug therapy; Z79.84 Long term (current) use of oral hypoglycemic drugs; E66.9 Obesity, unspecified; Z68.37 Body mass index [BMI] 37.0-37.9, adult
CPT/HCPCS: 36415; 80048; 82533; 82962; 83036; 84439; 85025; 94762; 97110; 97112; 97116; 97162; 97166; 97530; 97535; 97802

== ENCOUNTER → 2023-06-27 | Outpatient (CLI) | payer MEDICARE, MEDICAID, SELFPAY ==
[2023-06-27 11:43] LABS: Absolute Lymphocyte Count 2.39 X10^3/uL (0.83-4.51); Absolute Neutrophil Count 3.1 X10^3/uL (2.0-7.7); Basophil# 0.03 X10^3/uL; Basophil% 0.5 % (0-1); Eosinophil# 0.18 X10^3/uL; Eosinophils% 2.8 % (0-5); Hematocrit 41.2 % (37-47); Hemoglobin 12.6 g/dL (12.0-15.0); Lymphocyte # 2.39 X10^3/ul (0.83-4.51); Lymphocyte % 37.1 % (19-41); Mean Corp Hgb Conc 30.6 g/dL (32-36); Mean Corpuscular Hgb 27.6 pg (27.0-32.0); Mean Corpuscular Volume 90.2 fL (81-99); Mean Platelet Vol. 9.9 fl (6.2-12.0); Monocyte# 0.69 X10^3/uL; Monocyte% 10.7 % (0-10); NRBC Flagged by Analyzer 0 % (0-5); Neutrophil # 3.14 X10^3/uL (2.7-7.7); Neutrophil % 48.6 % (47-70); Platelet Count 287 K/mm3 (150-450); RBC Distribution Width CV 14.9 % (11.6-14.6); RBC Distribution Width SD 49.1 fl (35.1-43.9); Red Blood Count 4.57 M/mm3 (4.2-5.4); White Blood Count 6.5 K/mm3 (4.4-11.0)
[2023-06-27 12:14] LABS: ALB/GLOB Ratio 0.9 RATIO (0.9-2.4); AST(SGOT) 15 U/L (15-37); Alanine Aminotransfer ALT/SGPT 26 U/L (13-56); Albumin, Serum 3.5 g/dL (3.2-5.0); Alkaline Phosphatase 96 U/L (45-117); Anion Gap 3 (5-15); BUN 22 mg/dL (7-18); BUN/Creat Ratio 21.6 RATIO (10-20); Calcium,Total 8.4 mg/dL (8.5-10.1); Chloride 105 mmol/L (98-107); Cholesterol 114 mg/dL (200); Creatinine, Serum 1.02 mg/dL (0.55-1.02); EST Glomerular Filtration Rate 59 mL/min (>60); Est Glom Filt Rate - Afr Amer 71 mL/min (>60); Globulin 3.7 g/dL (2.2-4.2); Glucose 149 mg/dL (74-106); High Density Lipoprotein 46 mg/dL; Potassium 3.8 mmol/L (3.5-5.1); Protein, Total 7.2 g/dL (6.4-8.2); Sodium Level 138 mmol/L (136-145); Thyroid Stim Hormone (TSH) 0.03 uIU/mL (0.358-3.74); Triglycerides 369 mg/dL; Very Low Density Lipoprotein 74 mg/dL (5-40)
[2023-06-27 12:16] LABS: Hemoglobin A1c 6.7 % (3.8-5.6)
== END | disposition home or self-care (01) ==
LOC: POLAB3 10:46
PROVIDERS: PCP Family Medicine Geriatric Medicine; Visit Provider Family Medicine Geriatric Medicine
DX: E11.42 Type 2 diabetes mellitus with diabetic polyneuropathy (principal); I10 Essential (primary) hypertension; E78.5 Hyperlipidemia, unspecified
CPT/HCPCS: 36415; 80053; 80061; 82043; 83036; 84443; 85025

== ENCOUNTER → 2023-11-01 | Outpatient (CLI) | payer MEDICARE, MEDICAID, SELFPAY ==
--- OUTSIDE RECORDS SUMMARY | 2023-11-01 09:48 | XMS RPT_ITS | CCD ---
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 Name Role Phone Zack Borges Unavailable Unavailable Primary Care Provider Iva GARCIA MD, DR REID Primary Care Physician Allergies Allergy Classification Reported Allergen(s) Allergy Type Date of Onset Reaction(s) Facility (5 sources) Latex drug allergy 4 Anaphylaxis [facility] Work Phone: (2 sources) FLEA MEDICINE drug allergy [facility] Work Phone: (2 sources) TETANUS SHOT drug allergy 4 [facility] Work Phone: (2 sources) Tetanus vaccine Propensity to adverse reactions to drug 0 Shortness Of Breath [place], [place] (2 sources) Other Propensity to adverse reactions 0 Shortness Of Breath [place] (1 source) tetanus toxoid vaccine, inactivated; Translations: [tetanus toxoid] Drug Allergy difficulty breathing, diarrhea, vomiting [facility] Medications Current Medications Medication Drug Class(es) Dates Sig (Normalized) Sig (Original) acetaminophen (3 sources) Start: 06-18-2020 acetaminophen (TYLENOL) tablet 650 mg Completed/Discontinued Medications Medication Drug Class(es) Dates Sig (Normalized) Sig (Original) acetaminophen 325 mg / HYDROcodone bitartrate 5 mg oral tablet (3 sources) Opioid Agonist Start: 06-12-2020 End: 06-15-2020 take 1 tablet by mouth every six hours as needed for pain [place] 325- 5 mg oral tablet Dose = 1 tab(s), Oral, q6h, PRN as needed for pain, # 12 tab(s), 0 Refill(s), Contusion of knee, 113.6 Start Date: 06/12/20 Stop Date: 06/15/20 Status: Ordered Problems Active Problems Problem Classification Problem Date Documented Date Episodic/Chronic Asthma (3 sources) Asthma; Translations: [Unspecified asthma, uncomplicated] Onset: 10-19-2016 10-20-2016 Chronic Diabetes mellitus without complication (1 source) Diabetes mellitus 12-19-2014 Chronic Esophageal disorders (1 source) Acid reflux 12-19-2014 Chronic Essential hypertension (1 source) Hypertensive disorder 12-19-2014 Chronic Infective arthritis and osteomyelitis (except that caused by tuberculosis or sexually transmitted di (4 sources) Acute osteomyelitis of ankle and/or foot; Translations: [Other acute osteomyelitis, unspecified ankle and foot] Onset: 10-15-2014 10-20-2016 Chronic Osteoarthritis (3 sources) Osteoarthritis of knee; Translations: [Arthritis] Onset: 04-25-2016 05-04-2016 Chronic Other connective tissue disease (1 source) Bursitis of shoulder 12-19-2014 Episodic Past or Other Problems Problem Classification Problem Date Documented Da te Episodic/Chronic Bacterial infection (6 sources) Streptococcus, group B, as the cause of diseases classified elsewhere; Translations: [Methicillin susceptible Staphylococcus aureus infection as the cause of diseases classified elsewhere] Onset: 10-15-2014 10-15-2014 Episodic Cardiac dysrhythmias (3 sources) Tachycardia; Translations: [Tachycardia] Onset: 06-17-2020 06-17-2020 Episodic Influenza (2 sources) Influenza due to Influenza A virus; Translations: [Influenza due to identified novel influenza A virus with other respiratory manifestations] Onset: 11-28-2016 11-29-2016 Episodic Open wounds of extremities (2 sources) Open wound of toe with complication; Translations: [Unspecified open wound of unspecified toe(s) without damage to nail] Onset: 09-10-2014 09-10-2014 Episodic Other gastrointestinal disorders (2 sources) Diarrhea; Translations: [Diarrhea, unspecified] Onset: 11-10-2016 11-10-2016 Episodic Other lower respiratory disease (2 sources) Cough; Translations: [Cough] Onset: 11-28-2016 11-28-2016 Episodic Other non-traumatic joint disorders (2 sources) Knee pain; Translations: [Pain in right knee] Onset: 04-25-2016 04-25-2016 Episodic Other nutritional; endocrine; and metabolic disorders (2 sources) H/O: diabetes mellitus; Translations: [Personal history of other endocrine, nutritional and metabolic disease] Onset: 07-13-2016 07-25-2016 Episodic Skin and subcutaneous tissue infections (2 sources) Abscess of skin AND/OR subcutaneous tissue; Translations: [Cutaneous abscess, unspecified] Onset: 09-10-2014 09-17-2014 Episodic Skull and face fractures (1 source) Closed fracture of nasal bones; Translations: [Closed fracture of nasal bone, initial encounter] Episodic Superficial injury; contusion (2 sources) Contusion of right knee, initial encounter; Translations: [Contusion of right knee, initial encounter] Onset: 04-25-2016 05-04-2016 Episodic Results Test Name Value Interpretation Reference Range Facil it Vital Signs Date Time Vital Sign Value Performing Clinician Facility 06-19-2020 12:00-0400 Pulse (Heart Rate) 89 /min [place] 06-19-2020 11:50-0400 Body Temperature 96.91 [degF] [place] 06-19-2020 11:50-0400 BP Diastolic 68 mm[Hg] [place] 06-19-2020 11:50-0400 BP Systolic 112 mm[Hg] [place] 06-19-2020 11:50-0400 Pulse Oximetry 90 % [place] 06-19-2020 11:50-0400 Respiratory Rate 18 /min [place] 06-17-2020 16:53-0400 BMI (Body Mass Index) 45.61 kg/m2 [facility], [place] 06-17-2020 16:53-0400 Body weight 136.08 kg [place] 06-17-2020 16:53-0400 Height 172.7 cm [place] 06-17-2020 15:20-0400 BMI (Body Mass Index) 38.06 kg/m2 [facility], [place] 06-17-2020 15:20-0400 Body Temperature 96.4 [degF] [facility] 06-17-2020 15:20-0400 Body weight 115.21 kg [facility] , [place] 06-17-2020 15:20-0400 BP Diastolic 89 mm[Hg] [facility] , [place] 06-17-2020 15:20-0400 BP Systolic 121 mm[Hg] [facility] [place] 06-17-2020 15:20-0400 Height 174 cm [facility] , [place] 06-17-2020 15:20-0400 Pulse (Heart Rate) 147 /min [facility], [place] 06-17-2020 15:20-0400 Pulse Oximetry 92 % [facility] , [place] 06-17-2020 15:20-0400 Respiratory Rate 20 /min [place] 11-28-2016 10:29-0400 BMI (Body Mass Index) 40.94 kg/m2 [facility] Work Phone: 11-28-2016 10:29-0400 Body Temperature 98.3 [degF] [facility] Work Phone: 11-28-2016 10:29-0400 BP Diastolic 91 mm[Hg] [facility] Work Phone: 11-28-2016 10:29-0400 BP Systolic 141 mm[Hg] [facility] Work Phone: 11-28-2016 10:29-0400 Height 172.72 cm [facility] Work Phone: 11-28-2016 10:29-0400 Pulse (Heart Rate) 97 /min [facility] Work Phone: 11-28-2016 10:29-0400 Pulse Oximetry 97 % Zack Borges [facility] Work Phone: 11-28-2016 10:29-0400 Respiratory Rate 18 /min Zack Borges [facility] Work Phone: 11-28-2016 10:29-0400 Weight 122.15 kg Zack Borges [facility] Work Phone: 06-16-2014 13:190400 BSA (Body Surface Area) 2.35 m2 [facility] Work Phone: Encounters Encounter Date Encounter Type Care Provider Facility Start: 04-05-2022 End: 04-05-2022 Emergency department patient visit ALBERTO PEREZ MD [facility] Start: 06-17-2020 End: 06-19-2020 Emergency department patient visit Maria Del Rosario Segura Work Phone: [facility] Procedures Date Procedure Procedure Detail Performing Clinician Start: 06-19-2020 Gluc bld gluc mntr d ev cleared fda spec home use Brandon Ridley Work Phone: Start: 06-19-2020 Echo tthrc r-t 2d w/ wom-mode compl spec&colr d Micaela Tierney Work Phone: Start: 06-19-2020 Gluc bld gluc mntr d ev cleared fda spec home use Brandon Ridley Work Phone: Start: 06-18-2020 Gluc bld gluc mntr d ev cleared fda spec home use Brandon Ridley Work Phone: Start: 06-18-2020 Gluc bld gluc mntr d ev cleared fda spec home use Brandon Ridley Work Phone: Start: 06-18-2020 Gluc bld gluc mntr d ev cleared fda spec home use Brandon Ridley Work Phone: Start: 06-18-2020 Gluc bld gluc mntr d ev cleared fda spec home use Brandon Ridley Work Phone: Start: 06-18-2020 Gluc bld gluc mntr d ev cleared fda spec home use Brandon Ridley Work Phone: Start: 06-18-2020 Gluc bld gluc mntr d ev cleared fda spec home use Brandon Ridley Work Phone: Start: 06-18-2020 Assay of magnesium Raman Ridley Work Phone: Start: 06-18-2020 Assay of troponin quantitative Brandon Ridley Work Phone: Start: 06-18-2020 Basic metabolic pane l calcium total Brandon Ridley Work Phone: Start: 06-18-2020 Hemoglobin glycosylated a1c Brandon Ridley Work Phone: Start: 06-17-2020 End: 06-17-2020 ADD ON LAB TEST [employer] Work Phone: Start: 06-17-2020 Urnls dip stick/tabl et rgnt auto w/o microscopy [employer] Work Phone: Start: 06-17-2020 Assay of free thyroxine Ochoa Jose E Yasir Work Phone: Start: 06-17-2020 Assay of triiodothyr onine t3 free Ochoa Jose E Deloit Work Phone: Start: 06-17-2020 Assay of magnesium Cameron remington Jose E Cooley Work Phone: Start: 06-17-2020 Assay of thyroid sti mulating hormone tsh Ochoa Jose E Yasir Work Phone: Start: 06-17-2020 Assay of troponin quantitative Ochoa Jose E Deloit Work Phone: Start: 06-17-2020 Blood count complete auto&auto difrntl wbc Ochoa Jose E Yasir Work Phone: Start: 06-17-2020 Comprehensive metabolic panel Ochoa Jose E Yasir Work Phone: Start: 06-17-2020 Fibrin dgradj produc ts d-dimer quantitative Ochoa Jose E Yasir Work Phone: Start: 06-17-2020 Radiologic exam ches t single view Ochoa Cooley Work Phone: Start: 06-17-2020 Basic metabolic pane l calcium total Nadeen Nicholson Work Phone: Start: 06-17-2020 Blood count hemoglobin Nadeen Nicholson Work Phone: Start: 06-17-2020 Ecg routine ecg w/le ast 12 lds w/i&r Nadeen Nicholson Work Phone: Start: 05-27-2016 End: 05-27-2016 *CBC with Differential Vidhya Art MD Start: 05-27-2016 End: 05-27-2016 C reactive protein (hsCRP) Vidhya arriaga MD Start: 05-27-2016 End: 05-27-2016 Erythrocyte sedimentation rate Vidhya Art MD Start: 04-25-2016 End: 05-04-2016 Drain/inject, joint/bursa Zack Borges Work Phone: Start: 01-01-2015 Thyroidectomy ALBERTO HOGUE MD Start: 10-15-2014 End: 10-21-2014 *BMP Vidhya Art MD Start: 10-15-2014 End: 10-21-2014 *CBC with Differential Vidhya Art MD Start: 10-15-2014 End: 10-16-2014 Documentation of current medications Vidhya Art MD Start: 10-15-2014 End: 10-21-2014 Erythrocyte sedimentation rate Vidhya Art MD Start: 09-23-2014 Amputated toe (finding) ALBERTO PEREZ MD Plan of Treatment Date Care Activity Detail Author Start: 06-18-2020 Hospital Encounter 06/18/2020 Hospital Encounter General Surgery Terrell Sexton, [address] [place], [place] [address] [facility] Start: 05-12-2020 Influenza vaccination Flu vaccine (#1) [place] Start: 11-28-2016 End: 11-28-2016 Influenza virus A+B Ag [Presence] in Unspecified specimen *FLU - FLU A + B Direct AG, (Rapid) [facility] Work Phone: Start: 11-10-2016 End: 11-10-2016 *CDIF - Clostridium Diff. Toxin Stool *CDIF - Clostridium Diff. Toxin Stool [facility] Work Phone: Start: 10-27-2016 End: 10-27-2016 Jasmina subq tissue 20 sq cm/< Debridement, subcutaneous tissue first 20 sq cm or less [facility] Work Phone: Start: 10-27-2016 End: 10-27-2016 X-ray exam of foot X-Ray, Foot [facility] Work Phone: Start: 05-27-2016 End: 05-27-2016 *CBC with Differential *CBC with Differential [facility] Work Phone: Start: 05-27-2016 End: 05-27-2016 C reactive protein (hsCRP) *CRP - C-Reative Protein [facility] Work Phone: Start: 05-27-2016 End: 05-27-2016 Erythrocyte sedimentation rate *Sedimentation Rate (ESR) [facility] Work Phone: Start: 04-27-2016 End: 04-27-2016 Physical Therapy General Physical [facility], [address] [place] [address], [id number] [facility] Work Phone: Start: 04-25-2016 End: 04-25-2016 X-ray exam, knee, 4 or more X-Ray, Knee [facility] Work Phone: Start: 10-15-2014 End: 10-21-2014 *BMP *BMP [facility] Work Phone: Start: 10-15-2014 End: 10-21-2014 *CBC with Differential *CBC with Differential [facility] Work Phone: Start: 10-15-2014 End: 10-21-2014 Erythrocyte sedimentation rate *Sedimentation Rate (ESR) [facility] Work Phone: Start: 09-15-2014 End: 09-15-2014 Podiatry Referral Podiatry Referral [facility] [place], [address], [place], [address] [facility] Work Phone: Start: 09-10-2014 End: 10-21-2014 *MISC - Miscellaneous Lab Test #1 *MISC - Miscellaneous Lab Test #1 [facility] Work Phone: Start: 2014 Screening for malignant neoplasm of breast Breast cancer screen [place] Start: 2014 Screening for malignant neoplasm of colon Colon cancer screen colonoscopy [place] Start: 2014 Shingles Vaccine (1 of 2) Shingles Vaccine (1 of 2) [place], [place] Start: 2004 Diabetes screen Diabetes screen [place] Start: 1985 Screening for malignant neoplasm of cervix Cervical cancer screen [place] Start: 1982 Diabetic microalbuminuria test Diabetic microalbuminuria test [place] Start: 1979 HIV screening HIV screen [place] Start: 1974 Diabetic foot examination Diabetic foot exam [place] Start: 1974 Diabetic retinal exam Diabetic retinal exam [place], [place] Start: 1974 HbA1c (Bld) [Mass fraction] A1C test (Diabetic or Prediabetic) [place] Start: 1974 Lipid panel Lipid screen [place] Start: 1964 Hepatitis C screening Hepatitis C screen [place] End: 06-18-2020 Basic metabolic 2000 panel Basic Metabolic Panel Lab Routine Tomorrow AM for 1 Occurrences starting 06/18/2020 until 06/18/2020 [place] Social History Date Type Detail Facility Start: 07-10-2019 End: 06-17-2020 Tobacco smoking status NHIS Former smoker [facility] End: 09-11-1996 History of tobacco use Current [place] End: 09-11-1996 History of tobacco use Cigarette [place] Start: 06-17-2020 Cigarettes smoked current (pack per day) - Reported [place] Start: 06-17-2020 Tobacco use and exposure Never used [place] Start: 06-17-2020 Alcohol intake Current drinke r of alcohol (finding) [place] Start: 06-17-2020 Alcohol Comment very seldom [place], [place] Sex Assigned At Not on file [place] Exposure to SARS-CoV -2 (event) Not sure [place] Sex Assigned At Sex [facility] Functional Status Date Assessment Result Facility 04-05-2022 Functional Status Independent [facility] Mental Status Date Assessment Result Facility 04-05-2022 Mental Status Orientation Oriented x 4 [facility] Hospital Discharge instructions 04-05-2022 Note Date & Type Note Facility 04-05-2022 Hospital Discharg e instructions Patient Education 04/05/2022 12:49:29 R.I.C.E. RICE RICE stands for rest, ice, compression, and elevation. Doing these things helps limit pain and swelling after an injury. RICE also helps injuries heal faster. Use RICE for sprains, strains, and severe bruises or bumps. Follow the tips on this handout and begin RICE as soon as possible after an injury. Rest Pain is your body s way of telling you to rest an injured area. Whether you have hurt an elbow, hand, foot, or knee, limiting its use will prevent further injury and help you heal. Ice Applying ice right after an injury helps prevent swelling and reduce pain. Don t place ice directly on your skin. Wrap a cold pack or bag of ice in a thin cloth. Place it over the injured area. Ice for 10 minutes every 3 hours. Don t ice for more than 20 minutes at a time. Compression Putting pressure (compression) on an injury helps prevent swelling and provides support. Wrap the injured area firmly with an elastic bandage. If your hand or foot tingles, becomes discolored, or feels cold to the touch, the bandage may be too tight. Rewrap it more loosely. If your bandage becomes too loose, rewrap it. Do not wear an elastic bandage overnight. Elevation Keeping an injury elevated helps reduce swelling, pain, and throbbing. Elevation is most effective when the injury is kept elevated higher than the heart. Call your healthcare provider if you notice any of the following: Fingers or toes feel numb, are cold to the touch, or change color. Skin looks shiny or tight. Pain, swelling, or bruising worsens and is not improved with elevation. [phone] [employer] [address] [place] [address]. All rights reserved. This information is not intended as a substitute for professional medical care. Always follow your healthcare professional's instructions. Follow Up Care 04/05/2022 11:46:56 With:JAELYN TIM DO Address: [address] [place] [address] [facility] [address] [phone] When:2-4 days With:Go to emergency room if symptoms worsen Address:Unknown When:2-4 days [facility] Clinical Note 04-05-2022 Note Date & Type Note Facility 04-05-2022 Note Discharge Instructions Thank you for allowing [facility] to assist you with your healthcare needs. The following is important discharge information regarding your hospital visit. Diagnosis from Today's Visit Wrist pain Wrist pain-swelling What to Do Next Instructions from Your Care Team No qualifying data available. Post Acute Orders No qualifying data available. You Need to Schedule the Following Appointments Follow Up with JAELYN TIM DO When Within 2-4 days Where: [address] [place] [address] 5 [facility] [address]- [phone] Follow Up with Go to emergency room if symptoms worsen When Within 2-4 days Allergies Latex (hives, swelling) tetanus toxoid (difficulty breathing, diarrhea, vomiting) Medications Please ask your primary doctor or pharmacist before taking any other medication not listed, including over the counter drugs, herbal medications, vitamins and or supplements as they may interact with your home medications. What How Much When Why Instructions Last Dose Unchanged acetaminophen-hydrocodone ([place] 325- 5 mg oral tablet) 1 tab(s) by mouth Every 6 hours as needed for as needed for pain Contusion of knee Duration: 3 Days Unchanged albuterol (albuterol 2.5 mg/ 3 mL (0.083%) inhalation solution) 3 Milliliter by inhalation Every 6 hours as needed for for wheezing Unchanged albuterol (albuterol 2.5 mg/ 3 mL (0.083%) inhalation solution) 3 Milliliter by inhalation Every 6 hours as needed for Wheezing Unchanged atorvastatin (atorvastatin 80 mg oral tablet) 1 tab(s) by mouth Once a day Unchanged canagliflozin (Invokana 300 mg oral tablet) 1 tab(s) by mouth Before breakfast Unchanged celecoxib (celecoxib 200 mg oral capsule) 1 cap by mouth Once a day Unchanged cilostazol (cilostazol 100 mg oral tablet) 1 tab(s) by mouth Two (2) times a day Unchanged cyclobenzaprine (Flexeril 10 mg oral tablet) 1 tab(s) by mouth Every day Unchanged doxepin (doxepin 25 mg oral capsule) 1 cap by mouth Two (2) times a day Unchanged dulaglutide (Trulicity Pen 1.5 mg/ 0.5 mL subcutaneous solution) 0.5 Milliliter Subcutaneous Every week Unchanged empagliflozin (Jardiance 25 mg oral tablet) 1 tab(s) by mouth Once a day (in the morning) Unchanged ergocalciferol (Vitamin D2 50,000 intl units capsule) 1 cap by mouth Every week Unchanged ferrous sulfate (IRON (ferrous sulfate 325 mg) 65 mg oral tablet) 1 tab(s) by mouth Once a day Unchanged fluticasone nasal (fluticasone proprionate NASAL 50 mcg/ spray) 2 spray(s) each nostril Two (2) times a day Unchanged gabapentin 1,200 Milligram by mouth Three (3) times a day Unchanged insulin aspart (Novolog) (NovoLOG) 15 unit(s) Subcutaneous Daily at 12 noon Unchanged insulin aspart (Novolog) (NovoLOG) 15 unit(s) Subcutaneous Once a day (in the evening) Unchanged insulin aspart (Novolog) (NovoLOG) 10 unit(s) Subcutaneous Once a day (in the morning) Unchanged insulin glargine (Lantus) (Lantus Solostar Pen 100 units/ mL 3 mL Pen (NF)) 80 unit(s) Subcutaneous Two (2) times daily before meals Unchanged levothyroxine (levothyroxine 175 mcg (0.175 mg) oral tablet) 1 tab(s) by mouth Once a day Unchanged lisinopril (lisinopril 20 mg oral tablet) 1 tab(s) by mouth Every day Unchanged metFORMIN (metFORMIN 1000 mg oral tablet) 1 tab(s) by mouth Twice daily with meals Unchanged metoprolol (metoprolol succinate 200 mg oral tablet, extended release) 1 tab(s) by mouth Once a day with a meal Unchanged montelukast (Singulair 10 mg oral tablet) 1 tab(s) by mouth Once a day (in the evening) Unchanged omeprazole (NF) (omeprazole 40 mg oral delayed release capsule (NF)) 1 cap by mouth Once a day before a meal Unchanged PARoxetine (PARoxetine 40 mg oral tablet) 1 tab(s) by mouth Once a day Unchanged potassium chloride (potassium chloride 20 mEq oral tablet, extended release) 1 tab(s) by mouth Two (2) times a day Unchanged pregabalin (Lyrica 150 mg oral capsule) 1 cap by mouth Three (3) times a day Please take this list to your next doctor s visit. Bring all medications you take, including over the counter medications, herbals and other supplements with you to your doctor s visit. Patients and families are reminded to discard old lists and to update any records with all medication providers or retail pharmacies. Education Materials RICE RICE stands for rest, ice, compression, and elevation. Doing these things helps limit pain and swelling after an injury. RICE also helps injuries heal faster. Use RICE for sprains, strains, and severe bruises or bumps. Follow the tips on this handout and begin RICE as soon as possible after an injury. Rest Pain is your body s way of telling you to rest an injured area. Whether you have hurt an elbow, hand, foot, or knee, limiting its use will prevent further injury and help you heal. Ice Applying ice right after an injury helps prevent swelling and reduce pain. Don t place ice directly on your skin. Wrap a cold pack or bag of ice in a thin cloth. Place it over the injured area. Ice for 10 minutes every 3 hours. Don t ice for more than 20 minutes at a time. Compression Putting pressure (compression) on an injury helps prevent swelling and provides support. Wrap the injured area firmly with an elastic bandage. If your hand or foot tingles, becomes discolored, or feels cold to the touch, the bandage may be too tight. Rewrap it more loosely. If your bandage becomes too loose, rewrap it. Do not wear an elastic bandage overnight. Elevation Keeping an injury elevated helps reduce swelling, pain, and throbbing. Elevation is most effective when the injury is kept elevated higher than the heart. Call your healthcare provider if you notice any of the following: Fingers or toes feel numb, are cold to the touch, or change color. Skin looks shiny or tight. Pain, swelling, or bruising worsens and is not improved with elevation. [phone] [employer] [address] [place] [address]. All rights reserved. This information is not intended as a substitute for professional medical care. Always follow your healthcare professional's instructions. Additional Information VACCINATE! IT SAVES LIVES! Members of the community who have not yet received the COVID-19 vaccine and would like to receive it can visit one of [facility] vaccine clinics. There are many vaccine clinic locations within the [facility]. For locations and available times, please visit [email or web address]. It is important to note that some COVID mobile vaccine clinics are held outdoors and may be canceled in rainy or stormy conditions. To learn more about pediatric vaccinations (ages 5-11), we invite you to visit the [facility] webpage. [email or web address] -[email or web address] To learn more about the COVID-19 vaccine, we invite you to visit the [facility] website for a list of frequently asked questions. [email or web address] [facility] Patient Portal Access Instructions: Stay connected with your healthcare team and access your personal medical information anytime with the [facility] Patient Portal. If you would like a full copy of your medical records please contact the [facility] Medical Records Department Monday through Monday between 8a.m. and 4:30p.m. Please follow the directions below to access the portal: 1.Access the email account you provided upon registration to the [facility].2.Look for an invitation email from [facility].3.Open the email and access the invitation link: Accept Invitation to [facility]4.Fill in the required franco to create your account. Sign into www.[email or web address] with your username and password that you created in the above steps to stay up to date. You can then view a summary of results, a summary of your visits, and the ability to download your summaries to your computer or send the information securely to a physician. Remember that your healthcare information is confidential, so carefully consider who you will allow to register on the [facility] Patient Portal for access to your information. You can also access the [facility] Patient Portal on the [facility]. Simply click on Health Records under Health Data and then click on the [facility] logo. HOW TO SAFELY DISPOSE OF PRESCRIPTION MEDICATIONS Please use one of the following methods to safely dispose of your unused medications. 1.Use a drug disposal kit: the drug disposal pouch allows you to safely discard your old and unused drugs. Ask your nurse to give you one when you are discharged.2.Visit a local take-back location: Many local pharmacies and police departments have programs that collect old and unwanted prescription drugs. Call your local pharmacy or go to http://bit.ly/6J9Ls8i to find one close to you.3.Make use of household items: Use cat litter or old coffee grounds to dispose medications if other options are not available. Mix your drugs with these household products, seal them in an airtight container and throw it into the garbage. Call [facility]: [phone] to be sure your drugs can be disposed of in this way. Some medicines may require a different approach.4.Never flush your medications down the toilet. IF YOU HAVE BEEN PRESCRIBED AN OPIOIDS FOR PAIN If you have been prescribed an opioid (such as hydrocodone, oxycodone or morphine), it is critical to understand the possible side effects and risks of opioid pain medications. Even when taken as directed, opioids can have several side effects including: Tolerance, meaning you might need to take more of a medication for the same pain relief. Nausea, vomiting and/or constipation. Sleepiness, dizziness, dry mouth, confusion, depression or itching. Physical dependence, meaning you have withdrawal symptoms when a medication is stopped ? this can develop within a few days. KNOW YOUR RESPONSIBILITIES It is important to know exactly how much and how often to take the opioid pain medications you are prescribed. Never take opioids in higher amounts or more often than prescribed. Do not combine opioids with alcohol or other drugs that cause drowsiness, such as benzodiazepines, also known as benzos, including diazepam and alprazolam, muscle relaxants or sleep aids. Never sell or share prescription opioids. This is illegal. Store opioids in a secure place and out of reach of others (including children, family, friends and visitors). The last page(s) of this document has been signed and retained as a CHART COPY Signatures Patient Education Materials [employer] Medication Leaflets My discharge plan and instructions have been reviewed and explained to me and I,DEWEY BELTRAN M understand my current condition and have read and understand these discharge instructions. I have received a written copy of the plan/instructions. If I have questions, I am aware that I should contact my doctor. Patient/Supervisor Heading Signature: _ Date/Time: Relationship to Patient: Witness Name/Signature: Date/Time: [facility] Clinical Note 04-05-2022 Note Date & Type Note Facility 04-05-2022 Note ORIGINAL EXAMINATION: THREE XRAY VIEWS OF THE LEFT WRIST04/05/2022 12:13 pm TECHNIQUE: Three views of the left wrist COMPARISON: None HISTORY: ORDERING SYSTEM PROVIDED HISTORY: Reason for Exam: Fall FINDINGS: An avulsion fracture of the triquetrum is best seen on the lateral view. The distal radioulnar are and radiocarpal joints are preserved. The carpal rows are intact. Soft tissue swelling overlies the dorsum of the wrist. No evidence of a radiopaque foreign body or soft tissue gas. IMPRESSION: Avulsion fracture of the triquetrum with associated soft tissue swelling. Interpreted by: Victorino Solano MD Preliminary Report By: Victorino Solano MD Electronically signed By Victorino Solano MD Dictated Date: 04/05/2022 12:17:54 PM Prelim Date: 04/05/2022 12:20:27 PM Sign Date: 04/05/2022 12:20:27 PM Ordering Provider: [facility] Clinical Note 04-05-2022 Note Date & Type Note Facility 04-05-2022 Note ORIGINAL EXAMINATION: THREE XRAY VIEWS OF THE LEFT WRIST04/05/2022 12:13 pm TECHNIQUE: Three views of the left wrist COMPARISON: None HISTORY: ORDERING SYSTEM PROVIDED HISTORY: Reason for Exam: Fall FINDINGS: An avulsion fracture of the triquetrum is best seen on the lateral view. The distal radioulnar are and radiocarpal joints are preserved. The carpal rows are intact. Soft tissue swelling overlies the dorsum of the wrist. No evidence of a radiopaque foreign body or soft tissue gas. IMPRESSION: Avulsion fracture of the triquetrum with associated soft tissue swelling. Interpreted by: Victorino Solano MD Preliminary Report By: Victorino Solano MD Electronically signed By Victorino Solano MD Dictated Date: 04/05/2022 12:17:54 PM Prelim Date: 04/05/2022 12:20:27 PM Sign Date: 04/05/2022 12:20:27 PM Ordering Provider: [facility] Evaluation + Plan note Note Date & Type Note Facility Evaluation + Plan note No data available for this section [facility] Discharge Instructions * Instructions* Del Willard, Sonia M., RN - 06/17/2020 Trish: ? Enter through Door number 2 ? Registration department is located here ? Patient will be escorted to [facility] ? Trish does not open before 6am Please bring your [facility] [employer] [facility] Information folder on the day of surgery. Please terrell the last dose taken (date and time ) on your Daily Medications List provided in your After Visit Summary. Please bring a photo ID and insurance information TAKE the following medications the morning of your surgery - Celebrex, Lyrica, Paxil, Metoprolol, Flexeril, Levothyroxine. Basal Insulin: If you are using long acting insulin in the morning, take 56 units of Basaglar insulin the morning of surgery. Basal Insulin: If you are using long acting insulin at bedtime, take 60 units of Basaglar insulin the night before the surgery. DO NOT take your oral diabetic medications, Jardiance and Metformin , the morning of surgery. You may take your prescription pain medications. You may take Tylenol (Acetaminophen) if needed forpain. No Motrin, Ibuprofen, or Advil 24 hours prior to surgery, or longer if instructed by your surgeon. No Aleve or Naprosyn 3 days prior to surgery, or longer if instructed by your surgeon. If you are on BLOOD THINNERS or ASPIRIN - Last dose of Aspirin 81mg 06/16. Hold Pletal DOS. Additional instructions - Follow all instructions given to you by Dr. Sexton. You will receive a reminder call the day before surgery with your Same Day Surgery arrival time. If you have specific questions, please call your surgeon. * Attachments The following attachments cannot be sent through Care Everywhere. * Nose Fracture (Portuguese) documented in this encounter History of Present Illness * Graeme Figueroa - 06/17/2020 3:00 PM EDT Labs obtained on first attempt with 22 gauge needle at R AC site, patient tolerated well, site benign. * Sonia Valdez, RN - 06/17/2020 3:00 PM EDT Informed pt of need to refrain from smoking, vaping, using snuff or chew for 24 hours before surgery. Informed pt of anesthesia's right to cancel surgery if they have used these products. Pt verbalizes understanding. Surgery Scheduling notified of latex allergy. documented in this encounter* Micaela Tierney MD - 06/18/2020 11:37 AM EDT PROGRESS NOTE SUBJECTIVE: Patient seen and examined, I was wearing N95 mask throughout the patient encounter Interval history: On admission Presented from pre-admission testing for tachycardia 145 Overnight event : No No Palpitation at this time, nose bridge pain 06/20, lower extremity dependent edema, improved in morning Review of System: No CP No SOB No fever No cough No nausea No constipation No diarrhea No Abdominal Pain No dizziness No headache No focal weakness No dysuria No edema DIET CARB CONTROL; Carb Control: 5 carb choices (75 gms)/meal VITALS: BP 119/66 Pulse 112 Temp 98.3 F (36.8 C) (Temporal) Resp 18 Ht 5' 8 (1.727 m) Wt 300 lb (136.1 kg) SpO2 91% BMI 45.61 kg/m BLOOD PRESSURE RANGE: Systolic (24hrs), Av , Min:92 , Max:141 ; Diastolic (24hrs), Av, Min:55, Max:89 24HR INTAKE/OUTPUT: Intake/Output Summary (Last 24 hours) at 06/18/2020 1137 Last data filed at 06/17/2020 1940 Gross per 24 hour Intake 1000 ml Output Net 1000 ml PHYSICAL EXAM: General appearance: No apparent distress, appears stated age and cooperative. AOx3 HEENT: Normal cephalic, atraumatic without obvious deformity. PERRL. Extra ocular muscles intact. Conjunctivae/corneas clear. Neck: Supple, No JVD. Trachea midline. No lymphadenopathy. Respiratory: Normal respiratory effort. no Rales. no Wheezes. No Rhonchi. Cardiovascular: Regular rate and rhythm, normal S1/S2. no murmurs, no rubs, no gallops. Abdomen: Soft, non-tender, non-distended, normal bowel sounds. No rebound or guarding. Musculoskeletal: No clubbing, no cyanosis. No LE edema bilaterally. Skin: No rashes. Neurologic: No focal sensory, no motor deficits. Cranial nerves: II-XII intact LABS: Recent Labs 06/17/20 16406/17/20 173 WBC -- 7.4 HGB 13.9 13.7 HCT 41.9 41.6 MCV -- 86.7 PLT -- 340 Recent Labs 06/17/20 1645 06/17/20 17306/18/20 0131 NA 145 145 143 K 3.8 3.9 3.7 CL 105 105 107 CO2 25 25 24 GLUCOSE 170* 171* 173* MG -- 1.3* 1.8 BUN 12 12 13 CREATININE 0.63 0.62 0.63 Ionized Calcium: No results found for: IONCA Magnesium: Lab Results Component Value Date MG 1.8 06/18/2020 Phosphorus: No results found for: PHOS LIVER PROFILE: Recent Labs 06/17/20 173 AST 50* ALT 33 BILITOT 0.8 ALKPHOS 115 LABALBU 4.5 PROT 8.4* PT/INR: No results for input(s): PROTIME, INR in the last 72 hours. CARDIAC ENZYMES: Recent Labs 06/17/20173006/18/20 013 TROPONINI <0.012 <0.012 Procalcitonin: No results found for: PROCAL U/A: Lab Results Component Value Date COLORU Light-Yellow 06/17/2020 WBCUA 0-2 06/17/2020 RBCUA 0-2 06/17/2020 LEUKOCYTESUR Negative 06/17/2020 UROBILINOGEN Normal 06/17/2020 BILIRUBINUR Negative 06/17/2020 GLUCOSEU >1,000 06/17/2020 Urine Culture: No results for input(s): LABURIN in the last 72 hours. Blood Culture: No results found for: BC IMAGINGS: XR CHEST PORTABLE Final Result Scheduled Meds: aspirin 81 mg Oral Daily atorvastatin 80 mg Oral Daily celecoxib 200 mg Oral Daily cilostazol 100 mg Oral BID cyclobenzaprine 10 mg Oral Daily empagliflozin 25 mg Oral Daily insulin glargine 75 Units Subcutaneous Nightly insulin glargine 75 Units Subcutaneous Daily levothyroxine 175 mcg Oral Daily cetirizine 10 mg Oral Daily metFORMIN 1,000 mg Oral BID WC metoprolol 200 mg Oral Daily montelukast 10 mg Oral Daily PARoxetine 40 mg Oral QAM potassium chloride 20 mEq Oral Daily pregabalin 150 mg Oral TID sodium chloride flush 10 mL Intravenous 2 times per day enoxaparin 40 mg Subcutaneous Daily insulin lispro 0-6 Units Subcutaneous TID insulin lispro 0-3 Units Subcutaneous Nightly Continuous Infusions: sodium chloride 100 mL/hr at 06/18/20 0130 dextrose PRN Meds:sodium chloride flush, acetaminophen OR acetaminophen, polyethylene glycol, promethazine OR ondansetron, metoprolol, glucose, dextrose, glucagon (rDNA), dextrose, perflutren lipid microspheres, sodium chloride flush, oxyCODONE DIET CARB CONTROL; Carb Control: 5 carb choices (75 gms)/meal Advance Directive: Full Code ASSESSMENT AND PLAN Palpitation Sinus tachycardia Nose bridge fracture Morbid obesity Secondary hypothyroid DM2 DALIA CPAP asthma Check orthostatic Echo manager monitoring Pain control with oxy D dimer trop FT3/4 UA negative IVF for borderline BP Continue synthroid, metoprolol, CPAP at HS lantus and humalog Continue inhaler/nebulizer Morbidly Obese (>40.0) Discharge planning: TBD Following past medical problems has been monitored in hospital Diagnosis Date Arthritis Asthma Diabetes mellitus (HCC) Fibromyalgia Fracture of nasal bones, closed GERD (gastroesophageal reflux disease) Hyperlipidemia Hypertension DALIA on CPAP Thyroid disease Micaela Tierney MD On 06/18/2020 at 11:37 AM documented in this encounter Summary Purpose Family History No Family History Records FoundNo Family History Records Found Advance Directives No Advanced Directives Records FoundLatest Code Status on File Code Status Date Activated Date Inactivated Comments Full Code 06/18/2020 1:06 AM Hospital Course Note Internal Medicine Discharge Summary Patient ID: Dewey Beltran Patient's PCP: No primary care provider on file. Admit Date: 06/17/2020 Discharge Date: 06/19/2020 Visit Status: Observation Admitting Physician: Brandon Ridley MD Discharge Physician: Micaela Tierney MD Active Hospital Problems Diagnosis Date Noted ? Tachycardia [R00.0] 06/17/2020 Diagnosis Date ? Arthritis ? Asthma ? Diabetes mellitus (HCC) ? Fibromyalgia ? Fracture of nasal bones, closed ? GERD (gastroesophageal reflux disease) ? Hyperlipidemia ? Hypertension ? DALIA on CPAP ? Thyroid disease Code Status: Full Code Hospital Course: The patient is a 54 yo female who presented from [facility] for persistent tachycardia. Sinus tachycardia 2/2 multifactorial Nose bridge fracture Hypomagnesemia dehydration Morbid obesity BMI>45 Secondary hypothyroid DM2 DALIA CPAP Asthma not in exacerbation ? She was hydrated and repleted magnesium. Pain controlled with oxycodone. Echo unremarkable. D dimer trop FT3/4 UA negative Recommends (more content not included)... Assessments Diagnosis Tachycardia Tachycardia, unspecified Closed fracture of nasal bone, initial encounter Additional Source Comments INFORMATION SOURCE (unrecogn ized section and content) DATE CREATED AUTHOR AUTHOR'S ORGANIZ ATION 04/21/2022 [facility] ([place]) Care Team (unrecognized sect ion and content) Care Team Personnel Name: FRANKLIN GARCIA MD Member Role: Primary Care Physician Address: Address: [facility]/[address] [place] [address]- Care Team Related Persons Name: QUYNH AL Name: QUYNH AL Name: QUYNH AL FOR RECORDS PERTAINING TO PATIENTS WHO ARE OR HAVE BEEN ENROLLED IN A CHEMICAL DEPENDENCY/SUBSTANCEABUSE PROGRAM, SOME INFORMATION MAY BE OMITTED. This clinical summary was aggregated from multiple sources. Caution should be exercised in using it in the provision of clinical care. This summary normalizes information from multiple sources, and as a consequence, information in this document may materially change the coding, format and clinical context of patient data. In addition, data may be omitted in some cases. CLINICAL DECISIONS SHOULD BE BASED ON THE PRIMARY CLINICAL RECORDS. [facility] [employer] [facility]. provides no warranty or guarantee of the accuracy or completeness of information in this document.
== END | disposition home or self-care (01) ==
LOC: PSN 09:10
PROVIDERS: PCP Family Medicine Geriatric Medicine; Referring Provider Family Medicine Geriatric Medicine; Visit Provider Family Medicine Geriatric Medicine
DX: R68.83 Chills (without fever) (principal)
CPT/HCPCS: 87631

== ENCOUNTER 2023-11-02 09:45 | Outpatient (RCR) | payer MEDICARE, MEDICAID, SELFPAY ==
[2023-10-19 10:01] VITALS: BP 130/55; PULSE 70; RESP 18; TEMP 35.8; BMI 31.3
--- NOTE | 2023-10-19 12:48 | PCM.WC.HP ---
History of Present Illness Date of Service: 10/19/23 Chief Complaint: Left plantar heel ulceration History of Wound: 58 y/o woman with diabetes, neuropathy, peripheral vascular disease asthma, morbid obesity, HTN and hyperlipidemia. She presents to the wound care center for continued care of plantar heel ulceration of the left foot. She has been following with Dr. Navarro in office over the last several weeks with minimal improvement noted to left plantar heel ulceration and has been applying Neosporin and dry dressings to the site. Patient denies stepping on any objects that may have created a puncture wound however does have significant diabetic peripheral polyneuropathy with absent sensation to the foot. She is continue to change dressings daily. States ulceration has been present for a few weeks. She does have history of multiple ulcerations and multiple amputations of both feet. She is ambulating in surgical shoe with small cut out and for the heel. She denies N/V/F/chills. She denies further complaints. [facility] Medical History Anxiety Arthritis Asthma Asthma Back pain Broken teeth Cardiology follow-up encounter Chronic steroid use CPAP (continuous positive airway pressure) dependence Depression Dermatitis Diabetes type 2, uncontrolled Dietary restriction Difficulty balancing when standing Edema Essential (primary) hypertension Fibromyalgia GERD (gastroesophageal reflux disease) Hammertoe of left foot History of pain when walking History of partial ray amputation of fifth toe of right foot History of stress test Hypergammaglobulinemia Hyperlipemia Hypertension Hypothyroidism Iron deficiency Leg cramping Morbid obesity with BMI of 40.0-44.9, adult Multinodular thyroid Non-smoker Normal echocardiogram Osteomyelitis of toe Other specified peripheral vascular diseases PAD (peripheral artery disease) Shortness of breath Skin ulcer of right foot including toes with fat layer exposed Venous stasis dermatitis of both lower extremities Wears glasses Home Medications omeprazole 40 mg capsule,delayed release 40 mg PO DAILY ACID REFLUX 10/18/18 [History Last Taken 02/28/23] paroxetine HCl 40 mg tablet 40 mg PO DAILY DEPRESSION 10/29/19 [History Last Taken 02/28/23] pregabalin 150 mg capsule 150 mg PO TID NERVE PAIN 10/29/19 [History Last Taken 02/28/23] aspirin 81 mg tablet,delayed release (Adult Low Dose Aspirin) 81 mg PO DAILY HEART HEALTH 07/21/20 [History Last Taken 02/28/23] levothyroxine 175 mcg tablet 175 mcg PO DAILY THYROID 07/21/20 [History Last Taken 02/28/23] metoprolol succinate 200 mg tablet,extended release 24 hr 200 mg PO DAILY BLOOD PRESSURE 07/21/20 [History Last Taken 02/28/23] rosuvastatin 40 mg tablet (Crestor) 40 mg PO DAILY CHOLESTEROL 08/26/22 [History Last Taken 02/28/23] pen needle, diabetic 32 gauge x 5/32 (BD Ultra-Fine Catalina Pen Needle) #100 ea 02/13/23 [Rx Last Taken Unknown] dapagliflozin propanediol 10 mg tablet (Farxiga) 10 mg PO DAILY DIABETES 03/01/23 [History Last Taken 02/28/23] losartan 100 mg tablet 100 mg PO DAILY BLOOD PRESSURE 03/01/23 [History Last Taken 02/28/23] acetaminophen 500 mg tablet 1,000 mg (2 x 500 mg) PO Q8 #0 tabs 03/15/23 [Rx Last Taken Unknown] levofloxacin 500 mg tablet 500 mg PO DAILY 26 days #26 tabs 03/15/23 [Rx Last Taken Unknown] potassium chloride 20 mEq tablet,extended release(part/cryst) (Klor-Con M) 20 meq PO BIDCM 30 days #60 tabs 03/15/23 [Rx Last Taken Unknown] trazodone 100 mg tablet 150 mg (1.5 x 100 mg) PO QHS 30 days #45 tabs 03/15/23 [Rx Last Taken Unknown] blood sugar diagnostic (True Metrix Glucose Test Strip) #100 ea 03/24/23 [Rx Last Taken Unknown] glimepiride 4 mg tablet 4 mg PO DAILY #30 tabs 04/10/23 [Rx Last Taken Unknown] insulin aspart (niacinamide)(U-100) 100 unit/mL(3 mL) subcutaneous pen (Fiasp FlexTouch U-100 Insulin) 10 unit subcut TID #9 mL 05/29/23 [Rx Last Taken Unknown] insulin detemir U-100 100 unit/mL (3 mL) subcutaneous pen (Levemir FlexPen) 30 unit (0.3 mL) subcut QHS #9 mL 05/29/23 [Rx Last Taken Unknown] tirzepatide 7.5 mg/0.5 mL subcutaneous pen injector (Mounjaro) 7.5 mg (0.5 mL) subcut QWEEK #2 mL 10/11/23 [Rx Last Taken Unknown] Allergy/AdvReac Type Severity Reaction Status Date / Time piperacillin [From Zosyn] Allergy Severe Anaphylaxis Verified 05/29/23 13:54 tazobactam [From Zosyn] Allergy Severe Anaphylaxis Verified 05/29/23 13:54 sulfamethoxazole Allergy Unknown Anaphylaxis Verified 05/29/23 13:54 [From Bactrim] trimethoprim [From Bactrim] Allergy Unknown Anaphylaxis Verified 05/29/23 13:54 latex Allergy Rash Verified 05/29/23 13:54 pyrethrins Allergy Anaphylaxis Verified 05/29/23 13:54 tetanus and diphtheria Allergy Anaphylaxis Verified 05/29/23 13:54 toxoids [Tetanus&Diphtheria Toxoid] Family History Mother Diabetes Dementia Father Diabetes Myocardial infarction Surgical History H/O amputation of lesser toe (05/05/17) H/O arthroscopic knee surgery (11/2019) History of cholecystectomy History of nasal septoplasty History of thyroidectomy Hx of total knee arthroplasty Social History household members: none Smoking Status: Current every day smoker alcohol intake: current alcohol intake frequency: holidays/special occasions only substance use type: does not use ROS Constitutional Constitutional: Denies anorexia, change in weight, chills, fatigue or fever(s) Eyes Eyes: Denies blurry vision, change in vision or double vision ENT HEENT: Denies dysphagia, nasal congestion, nasal discharge or sore throat Cardiovascular Cardiovascular: Denies chest pain, claudication or palpitations Respiratory/Chest Respiratory/Chest: Denies cough, shortness of breath at rest or wheezing Gastrointestinal Gastrointestinal: Denies abdominal pain, constipation, diarrhea, nausea or vomiting Genitourinary Genitourinary: Denies dysuria, hematuria or urinary urgency Musculoskeletal Musculoskeletal: Denies joint pain, joint stiffness or joint swelling Integumentary Integumentary: Denies lesions, pruritus or rash Neurologic Neurologic: Denies dizziness, numbness or seizures Psychiatric Psychiatric: Reports depression Endocrine Endocrinology: Denies cold intolerance or heat intolerance Hematologic/Lymphatic Hematologic/Lymphatic: Denies easy bleeding or easy bruising Vital Signs Vital Signs Vital Signs: 10/19/23 10:01 Temperature 96.5 F L Temperature Source Temporal Pulse Rate 70 Respiratory Rate 18 Blood Pressure 130/55 H Blood Pressure Mean 80 Blood Pressure Source Monitor Blood Pressure Position Semi-Fowlers Blood Pressure Location Left Arm Weight Weight: 93.44 kg Body Mass Index (BMI) 31.3 Physical Exam Const alert, oriented x3, no apparent distress and well nourished General Appearance: cooperative HEENT normocephalic Eyes Eyes Narrative: Wears glasses General Eye: normal appearance of both eyes Neck General: normal visual inspection Lymph Lymphatic: no lymphadenopathy noted and no lymphedema noted Resp normal respiratory effort Cardio regular rate and regular rhythm Extremity normal capillary refill, no joint enlargement, no calf tenderness and no pedal edema Extremity Narrative: DP and PT pulses weakly palpable bilateral. Capillary fill time is less than 5 seconds to digits. DP and PT pulses monophasic on Doppler bilateral. Dermatological: There is a small ulceration noted in the central plantar aspect of the left heel with local hyperkeratotic tissue and serosanguineous drainage that is scant. No palpable fluctuance, no visible abscess formation, no erythema, no purulent drainage, no malodor. Surrounding skin is xerotic in nature secondary to diabetic autonomic neuropathy and trophic changes to the skin consistent with microvascular disease. Neurological: Absent protective sensation tested with 5.07 Kenna Macie monofilament consistent with diabetic peripheral polyneuropathy. Musculoskeletal: Multiple partial digit amputations noted to the left foot and partial fifth ray amputation to the right foot. Muscle strength 5 of 5 age-appropriate. Decreased range of motion of the ankle joint dorsiflexion with the knee extended without pain or crepitus. Decreased range of motion to the subtalar joint, midtarsal joint, and first metatarsophalangeal joint without pain or crepitus. No pain to palpation about ulcerative site secondary to diabetic peripheral polyneuropathy. Skin no rashes or lesions noted, skin turgor normal and no jaundice Neuro moves all extremities Debridement Note Debridement Note Wound debrided: Left heel Laterality: Left Wound Grade/Stage: Galvan stage I Type of Debridement: Excisional debridement Anesthesia Used: 5% Lidocaine Gel Depth: Down to and including healthy tissue and in the subcutaneous layer Percentage of wound debrided: 100 Instrument Used: #15 blade Tissue Removed: Fibrous, devitalized subcutaneous, biofilm, slough Severity: Fat Layer Exposed Amount of bleeding with debridement: Mild Bleeding Controlled with: Compression and gauze Patient tolerated procedure: Patient tolerated procedure well Post-Debridement Measurements and Additional Note: Post-Debridement Measurements/Treatment - Nurse 1 - General Ulcer Assessment Start: 10/19/23 10:00 Freq: Status: Active Protocol: [email or web address] Activity Type Activity Date Activity User E-sign Co-sign Detail Recorded Client Recorded Date Recorded By Document 10/19/23 10:01 Laptop 10/19/23 10:16 10/19/23 10:01 - Today's Visit Information Type of service Initial Visit Arrival Mode Ambulatory,Cane Patient Identification Verified (Name & Yes ) Patient Requires Transmission-Based No Precautions Finger Stick Blood Sugar(mg/dl) (if 100 indicated): Blood Sugar Stated by Patient Height and Weight Height 5 ft 8 in Weight 93.44 kg Weight in Pounds 206.0 lbs Weight Measurement Method Estimated by Patient Body Mass Index (BMI) 31.3 BMI Classification Obese BSA - Charlene 2.07 Vital Signs Temperature (97.8 F-99.1 F) 96.5 F L Temperature Source Temporal Pulse Rate (60-100) 70 Pulse Location Monitor Respiratory Rate (12-18) 18 Respiratory rate source Observation Blood Pressure (90/60-120/80) 130/55 H Blood Pressure Mean 80 Source Monitor Position Semi-Fowlers Blood Pressure Location Left Arm History Since Last Visit- (Skip if this is Patient's initial visit) Left Footwear Surgical Shoe with pressure relief insole Right Footwear Regular Shoe Pain Scale: 0-10 Numeric Is Patient Pain Free? Yes Lower Extremity Assessment/ Foot Assessment/ Toe Nail Assessment Right -Posterior Tibial Palpable No -Posterior Tibial Doppler Inaudible -Dorsalis Pedis Palpable Yes -Dorsalis Pedis Doppler Multiphasic -Hair Growth on Legs No -Hair Growth on Toes No -Temperature of Extremity Cool -Capillary Refill Greater than 3 Seconds -Dependent Rubor No -Blanched when Elevated Yes -Thick Yes -Discolored Yes -Deformed Yes -Improper Length & Hygeine No Left -Posterior Tibial Palpable Yes -Posterior Tibial Doppler Multiphasic -Dorsalis Pedis Palpable Yes -Dorsalis Pedis Doppler Multiphasic -Extremity Color Pale -Hair Growth on Legs No -Hair Growth on Toes No -Temperature of Extremity Cool -Capillary Refill Greater than 3 Seconds -Dependent Rubor No -Blanched when Elevated Yes -Thick Yes -Discolored Yes -Deformed Yes -Improper Length & Hygeine No Communication Assessment Preferred language Guinean Able to Read Yes Able to Write Yes Communication Tools None Right Hearing Abillity Normal Left Hearing Abillity Normal Visual Assistive Devices Glasses Teaching Assessment Preferences Verbal,Written, Audio/Visual, Demonstration Barriers to Learning None Readiness To Learn Good Willingness to Engage in Self Management Med Activies Readiness to Engage in Self Management Med Activities Anxiety Level Calm Cooperation Cooperative Perception Coherent Interest in Health Problem Asks Questions Education Importance Acknowledges Need Does Patient Smoke tobacco or other Yes substances Smoking Status Current every day smoker Is Patient Diabetic Yes Functional Assessment Recent Decline in Ability to Perform Ambulation Culture/Hinduism/Aviation [employer] Cultural/Hinduism Needs that may affect No Treatment Plan Would you allow our [facility] welding pantograph operator to No meet you for the purpose of spiritual/ emotional support? Aviation [employer] to contact place of protestant No WC - Nurse 1 - General Ulcer Measurement Start: 10/19/23 10:00 Freq: Status: Active Protocol: Activity Type Activity Date Activity User E-sign Co-sign Detail Recorded Client Recorded Date Recorded By Document 10/19/23 10:01 Laptop 10/19/23 10:16 [email or web address] 10/19/23 10:01 Wound Center Nurse 1 3-left heel -Combined with other wound No -Current Size (cm) - Length 0.3 -Current Size (cm) - Width 0.2 -Current Size (cm) - Depth 0.3 -Total Square Cm 0.06 -Photo Taken Yes -Epithelialization Large 67-100% -Tunneling No -Undermining/Tunneling No -Circular Undermining No -Classification - Galvan Grading ( Grade 2 Diabetic Ulcer) -Exudate Amt Small -Exudate Type Serosanguineous -Wound Margin Flat & Intact -Granulation Amt Medium (34-66%) -Granulation Quality [place] -Slough/Fibrin Yes -Necrosis Amt Small (1-33%) -Necrotic Tissue Type Adherent Slough -Structure Exposed N/A -Texture (Yanely-wound Skin Appearance) Assessed,Callus -Moisture (Yanely-wound Skin Appearance) Assessed,Dry/ Scaly -Color (Yanely-wound Skin Appearance) Assessed -Temperature (Yanely-wound Skin No Abnormality Appearance) (Pt Warm) -Tenderness on Palpation (Yanely-wound No Skin Appearance) -Ulcer Cleansing Wound Cleanser -Foul Odor after Cleansing No -Anesthetic Used 5% Lidocaine Gel Right Calf (cm) 34.5 Right Ankle (cm) 23.0 WC - Nurse 2 - General Ulcer CM Notes Start: 10/19/23 10:00 Freq: Status: Active Protocol: Activity Type Activity Date Activity User E-sign Co-sign Detail Recorded Client Recorded Date Recorded By Document 10/19/23 12:06 PL [id number] 10/19/23 12:07 PL 10/19/23 12:06 Wound Center Nurse 2 3-left heel -Time 10:50 -Correct Patient Yes -Correct Side, Site, Position Yes -Correct Procedure Yes -Procedure Performed Yes -Type of Procedure Debridement -Clinical Debridement Subcutaneous -Tissue Removed Subcutaneous -Post Debridement (cm) - Length 0.3 -Post Debridement (cm) - Width 0.2 -Post Debridement (cm) - Depth 0.2 -Total Square (Post) (cm) 0.06 -Area of Debridement (cm) - Length 0.3 -Area of Debridement (cm) - Width 0.2 -Total Square (Area) (cm) 0.06 -Tunneling No -Undermining/Tunneling No -Circular Undermining No -Wound/Ulcer Outcome Not Healed -Ulcer Cleansing Rinsed/ Irrigated with Saline -Foul Odor after Cleansing No -Bioengineered Tissue No -Debridement - Subq, 1st 20sq cm Yes Pain Scale: 0-10 Numeric Is Patient Pain Free? 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 insulin use: with residential use Qualified Code(s): E11.42 - Type 2 diabetes mellitus with diabetic polyneuropathy; Z79.4 - reservoir engineering manager (current) use of insulin (3) Type 2 diabetes mellitus with foot ulcer: CODE(S): E11.621 - Type 2 diabetes mellitus with foot ulcer; L97.509 - Non-pressure chronic ulcer of other part of unspecified foot with unspecified severity (4) Peripheral vascular disease, unspecified: CODE(S): I73.9 - Peripheral vascular disease, unspecified (5) Essential (primary) hypertension: CODE(S): I10 - Essential (primary) hypertension (6) Hyperlipidemia: CODE(S): E78.5 - Hyperlipidemia, unspecified PLAN: Plan Patient seen and evaluated Ulceration underwent debridement as noted in clinical panel above. Ulceration measures 0.3 cm x 0.2 cm x 0.2 cm. Ulcerative site was dressed with Marry to the wound base and dry sterile dressing. She is to change dressing daily. A felt offloading cut out was applied around the wound site and she may continue to ambulate in surgical shoe with a this offloading padding to left heel. Discussed with her proper diabetic diet to ensure tight glycemic control. States her last A1c was around 7%. Discussed the importance of not ambulating barefoot, this includes socks. Encouraged protective shoe gear to be worn at all times. Discussed the need for proper foot checks nightly and if any suspicious cuts or lesions or wounds appear she is to report to the foot and ankle Center. Discussed essential to continue to offload ulceration as direct pressure and continued ambulation may be affecting her healing. Discussed with her today the signs and symptoms of infection. Discussed if she notices increasing redness about the wound that creeps up to the side of the foot or up the leg, increasing foul odor from the wound site, purulent drainage from the wound site, or if she experiences fever greater than 101 degree accompanied by nausea, vomiting, and chills that these are signs of a progressing infection and she should report to the ED to receive IV antibiotics. She voices understanding of this today. The following work up and care recommendations were made: Dressing: Marry dry sterile dressing. Change dressing daily. Wash: Soap and water Tissue growth optimization: Marry Offload: Plantar offloading padding about the heel and surgical shoe to left foot Vascular: Weakly palpable DP and PT pulses that are monophasic on Doppler. There is a component of microvascular disease with trophic changes to the skin. However I do not feel this is impacting healing status at this time as wound is more related to pressure. Edema: Recommended Tubigrip compression stockings and elevation of lower extremities at times of rest Infection: No signs of infection Pain: May take [id number] Tylenol as needed for discomfort. She is to avoid ibuprofen. Host factors: DM type II with peripheral polyneuropathy, peripheral vascular disease, HTN, HLD, pressure. I answered all the patient's questions. To return to the wound healing center in 1 week or call sooner if the patient has any questions or concerns.
[2023-11-02 09:19] VITALS: BP 132/74; PULSE 76; RESP 18; BMI 31.3
--- NOTE | 2023-11-02 10:03 | PCM.WC.PN ---
History of Present Illness Date of Service: 11/02/23 Chief Complaint: Left plantar heel ulceration History of Wound: 58 y/o woman with diabetes, neuropathy, peripheral vascular disease asthma, morbid obesity, HTN and hyperlipidemia. She presents to the wound care center for continued care of plantar heel ulceration of the left foot. She has been following with Dr. Navraro in office over the last several weeks with minimal improvement noted to left plantar heel ulceration and has been applying Neosporin and dry dressings to the site. Patient denies stepping on any objects that may have created a puncture wound however does have significant diabetic peripheral polyneuropathy with absent sensation to the foot. She is continue to change dressings daily. States ulceration has been present for a few weeks. She does have history of multiple ulcerations and multiple amputations of both feet. She is ambulating in surgical shoe with small cut out and for the heel. She denies N/V/F/chills. She denies further complaints. Subjective Subjective Patient is a 58-year-old female who follows to the wound care center for plantar central heel ulceration. Patient had previously missed last week's appointment and states she has been on her foot more lately. She states she continues to try to offload with surgical shoe with heel cut out. States she is continuing to change dressings daily. Denies constitutional symptoms. Denies further complaints. Objective Data Objective Data Vital Signs: Vital Signs Temp Pulse Resp BP O2 Del Method 96.5 F L 76 18 132/74 H Room Air 10/19/23 10:01 11/02/23 09:19 11/02/23 09:19 11/02/23 09:19 11/02/23 09:19 Oxygen Delivery Method Room Air Weight: 93.44 kg Body Mass Index (BMI) 31.3 Physical Exam Const alert, oriented x3, no apparent distress and well nourished General Appearance: cooperative HEENT normocephalic Eyes Eyes Narrative: Wears glasses General Eye: normal appearance of both eyes Neck General: normal visual inspection Lymph Lymphatic: no lymphadenopathy noted and no lymphedema noted Resp normal respiratory effort Cardio regular rate and regular rhythm Extremity normal capillary refill, no joint enlargement, no calf tenderness and no pedal edema Extremity Narrative: DP and PT pulses weakly palpable bilateral. Capillary fill time is less than 5 seconds to digits. DP and PT pulses monophasic on Doppler bilateral. Dermatological: There is a small ulceration noted in the central plantar aspect of the left heel with local hyperkeratotic tissue and serosanguineous drainage that is scant. No palpable fluctuance, no visible abscess formation, no erythema, no purulent drainage, no malodor. Surrounding skin is xerotic in nature secondary to diabetic autonomic neuropathy and trophic changes to the skin consistent with microvascular disease. Neurological: Absent protective sensation tested with 5.07 Beauty Macie monofilament consistent with diabetic peripheral polyneuropathy. Musculoskeletal: Multiple partial digit amputations noted to the left foot and partial fifth ray amputation to the right foot. Muscle strength 5 of 5 age-appropriate. Decreased range of motion of the ankle joint dorsiflexion with the knee extended without pain or crepitus. Decreased range of motion to the subtalar joint, midtarsal joint, and first metatarsophalangeal joint without pain or crepitus. No pain to palpation about ulcerative site secondary to diabetic peripheral polyneuropathy. Skin no rashes or lesions noted, skin turgor normal and no jaundice Neuro moves all extremities Debridement Note Debridement Note Wound debrided: Plantar central heel ulceration left foot Laterality: Left Wound Grade/Stage: Galvan stage I Type of Debridement: Excisional debridement Anesthesia Used: 5% Lidocaine Gel Depth: Down to and including healthy tissue and in the subcutaneous layer Percentage of wound debrided: 100 Instrument Used: #15 blade Tissue Removed: Fibrous, devitalized subcutaneous, biofilm, slough Severity: Fat Layer Exposed Amount of bleeding with debridement: Mild Bleeding Controlled with: Compression and gauze Patient tolerated procedure: Patient tolerated procedure well Post-Debridement Measurements and Additional Note: Post-Debridement Measurements/Treatment - Nurse 1 - General Ulcer Assessment Start: 10/19/23 10:00 Freq: Status: Active Protocol: MILADY.ASHLEE Activity Type Activity Date Activity User E-sign Co-sign Detail Recorded Client Recorded Date Recorded By Document 10/19/23 10:01 GONZALO Laptop 10/19/23 10:16 Document 11/02/23 09:19 KW Desktop 11/02/23 09:26 KW 10/19/23 11/02/23 10:01 09:19 - Today's Visit Information Type of service Initial Visit Follow-up Visit (Physician/INTERNATIONAL PROJECT MANAGER ) Arrival Mode Ambulatory,Cane Ambulatory,Cane Patient Identification Verified (Name & Yes Yes ) Patient Requires Transmission-Based No Precautions Finger Stick Blood Sugar(mg/dl) (if 100 indicated): Blood Sugar Stated by Patient Height and Weight Height 5 ft 8 in Weight 93.44 kg Weight in Pounds 206.0 lbs Weight Measurement Method Estimated by Patient Body Mass Index (BMI) 31.3 31.3 BMI Classification Obese Obese BSA - Charlene 2.07 Vital Signs Temperature (97.8 F-99.1 F) 96.5 F L Temperature Source Temporal Pulse Rate (60-100) 70 76 Pulse Location Monitor Monitor Respiratory Rate (12-18) 18 18 Respiratory rate source Observation Observation Oxygen Delivery Method Room Air Blood Pressure (90/60-120/80) 130/55 H 132/74 H Blood Pressure Mean (mm Hg) 80 93 Source Monitor Monitor Position Semi-Fowlers Semi-Fowlers Blood Pressure Location Left Arm Left Arm History Since Last Visit- (Skip if this is Patient's initial visit) Have you changed medications since your No last visit? Any new allergies or adverse reactions No Had a fall/change in ADL's that may No increase risk of falls Signs or symptoms of abuse and/or No neglect since last visit Have you been in the hospital since your No last visit? Has dressing in place as prescribed Yes Has compression in place as prescribed N/A Has offloadiing in place as prescribed Yes Experienced any changes in pain level or No management Left Footwear Surgical Shoe Surgical Shoe with pressure with pressure relief insole relief insole Right Footwear Regular Shoe Regular Shoe Pain Scale: 0-10 Numeric Is Patient Pain Free? Yes Yes Lower Extremity Assessment/ Foot Assessment/ Toe Nail Assessment Right -Posterior Tibial Palpable No -Posterior Tibial Doppler Inaudible -Dorsalis Pedis Palpable Yes -Dorsalis Pedis Doppler Multiphasic -Hair Growth on Legs No -Hair Growth on Toes No -Temperature of Extremity Cool -Capillary Refill Greater than 3 Seconds -Dependent Rubor No -Blanched when Elevated Yes -Thick Yes -Discolored Yes -Deformed Yes -Improper Length & Hygeine No Left -Posterior Tibial Palpable Yes -Posterior Tibial Doppler Multiphasic -Dorsalis Pedis Palpable Yes -Dorsalis Pedis Doppler Multiphasic -Extremity Color Pale -Hair Growth on Legs No -Hair Growth on Toes No -Temperature of Extremity Cool -Capillary Refill Greater than 3 Seconds -Dependent Rubor No -Blanched when Elevated Yes -Thick Yes -Discolored Yes -Deformed Yes -Improper Length & Hygeine No Communication Assessment Preferred language Citizen Of [place] Able to Read Yes Able to Write Yes Communication Tools None Right Hearing Abillity Normal Left Hearing Abillity Normal Visual Assistive Devices Glasses Teaching Assessment Preferences Verbal,Written, Audio/Visual, Demonstration Barriers to Learning None Readiness To Learn Good Willingness to Engage in Self Management Med Activies Readiness to Engage in Self Management Med Activities Anxiety Level Calm Cooperation Cooperative Perception Coherent Interest in Health Problem Asks Questions Education Importance Acknowledges Need Does Patient Smoke tobacco or other Yes substances Smoking Status Current every day smoker Is Patient Diabetic Yes Functional Assessment Recent Decline in Ability to Perform Ambulation Culture/Religion/Auction Assistant Cultural/Religion Needs that may affect No Treatment Plan Would you allow our hospital stone driller helper to No meet you for the purpose of spiritual/ emotional support? Auction Assistant to contact place of restorationist No WC - Nurse 1 - General Ulcer Measurement Start: 10/19/23 10:00 Freq: Status: Active Protocol: Activity Type Activity Date Activity User E-sign Co-sign Detail Recorded Client Recorded Date Recorded By Document 10/19/23 10:01 Maclear Laptop 10/19/23 10:16 Maclear Document 11/02/23 09:19 Diagonal View Desktop 11/02/23 09:26 KW 10/19/23 11/02/23 10:01 09:19 Wound Center Nurse 1 3-left heel -Combined with other wound No -Current Size (cm) - Length 0.3 0.2 -Current Size (cm) - Width 0.2 0.2 -Current Size (cm) - Depth 0.3 0.5 -Total Square Cm 0.06 0.04 -Photo Taken Yes -Epithelialization Large 67-100% -Tunneling No -Undermining/Tunneling No -Undermining/Tunneling Starts (O'clock 12 ) -Undermining/Tunneling Ends (O'clock) 12 -Maximum Distance (cm) 0.4 -Circular Undermining No Yes -Classification - Galvan Grading ( Grade 2 Diabetic Ulcer) -Exudate Amt Small Small -Exudate Type Serosanguineous Serosanguineous -Wound Margin Flat & Intact Distinct, Outline Attached -Granulation Amt Medium (34-66%) Large (67-100%) -Granulation Quality [place] -Slough/Fibrin Yes -Necrosis Amt Small (1-33%) -Necrotic Tissue Type Adherent Slough -Structure Exposed N/A -Texture (Yanely-wound Skin Appearance) Assessed,Callus Assessed,Callus -Moisture (Yanely-wound Skin Appearance) Assessed,Dry/ Assessed,Dry/ Scaly Scaly -Color (Yanely-wound Skin Appearance) Assessed Assessed -Temperature (Yanely-wound Skin No Abnormality Appearance) (Pt Warm) -Tenderness on Palpation (Yanely-wound No Skin Appearance) -Ulcer Cleansing Wound Cleanser Rinsed/ Irrigated with Saline -Foul Odor after Cleansing No -Anesthetic Used 5% Lidocaine 5% Lidocaine Gel Gel Right Calf (cm) 34.5 Right Ankle (cm) 23.0 WC - Nurse 2 - General Ulcer CM Notes Start: 10/19/23 10:00 Freq: Status: Active Protocol: Activity Type Activity Date Activity User E-sign Co-sign Detail Recorded Client Recorded Date Recorded By Document 10/19/23 12:06 PL [id number] 10/19/23 12:07 PL 10/19/23 12:06 Wound Center Nurse 2 -Time 10:50 -Correct Patient Yes -Correct Side, Site, Position Yes -Correct Procedure Yes -Procedure Performed Yes -Type of Procedure Debridement -Clinical Debridement Subcutaneous -Tissue Removed Subcutaneous -Post Debridement (cm) - Length 0.3 -Post Debridement (cm) - Width 0.2 -Post Debridement (cm) - Depth 0.2 -Total Square (Post) (cm) 0.06 -Area of Debridement (cm) - Length 0.3 -Area of Debridement (cm) - Width 0.2 -Total Square (Area) (cm) 0.06 -Tunneling No -Undermining/Tunneling No -Circular Undermining No -Wound/Ulcer Outcome Not Healed -Ulcer Cleansing Rinsed/ Irrigated with Saline -Foul Odor after Cleansing No -Bioengineered Tissue No -Debridement - Subq, 1st 20sq cm Yes Pain Scale: 0-10 Numeric Is Patient Pain Free? Yes MILADY - Nurse 3 - General Ulcer D/C NN Start: 10/19/23 10:00 Freq: Status: Active Protocol: Activity Type Activity Date Activity User E-sign Co-sign Detail Recorded Client Recorded Date Recorded By Document 11/02/23 09:54 DL Desktop 11/02/23 09:55 DL 11/02/23 09:54 Wound Care Center Nurse 3 3-left heel -Ulcer Cleansing Rinsed/ Irrigated with Saline -Foul Odor after Cleansing No -Primary Dressing Applied Promogran Marry Matter -Primary Dressing Covered/Secured with Dry Gauze & Roll Gauze, Secured with Tape -Promogran Marry Matter 1 Treatment Response Procedure Tolerated Well Pain Scale: 0-10 Numeric Is Patient Pain Free? Yes WC - Visit Discharge Discharge Condition Stable Ambulatory Status Ambulatory,Cane Transportation Private Auto Assessment/Plan Assessment/Plan (1) Non-pressure chronic ulcer of left heel and midfoot with fat layer exposed: CODE(S): L97.422 - Non-pressure chronic ulcer of left heel and midfoot with fat layer exposed (2) Diabetes mellitus with diabetic polyneuropathy: CODE(S): E11.42 - Type 2 diabetes mellitus with diabetic polyneuropathy QUALIFIERS: Diabetes mellitus type: type 2 Diabetes mellitus continuous churn buttermaker insulin use: with continuous churn buttermaker use Qualified Code(s): E11.42 - Type 2 diabetes mellitus with diabetic polyneuropathy; Z79.4 - terminal worker (current) use of insulin (3) Type 2 diabetes mellitus with foot ulcer: CODE(S): E11.621 - Type 2 diabetes mellitus with foot ulcer; L97.509 - Non-pressure chronic ulcer of other part of unspecified foot with unspecified severity (4) Peripheral vascular disease, unspecified: CODE(S): I73.9 - Peripheral vascular disease, unspecified (5) Essential (primary) hypertension: CODE(S): I10 - Essential (primary) hypertension (6) Hyperlipidemia: CODE(S): E78.5 - Hyperlipidemia, unspecified PLAN: Plan Patient seen and evaluated Ulceration underwent debridement as noted in clinical panel above. Ulceration measures 0.4 cm x 0.3 cm x 0.2 cm. Ulcerative site was dressed with Marry to the wound base and dry sterile dressing. She is to change dressing daily. A felt offloading cut out was applied around the wound site and she may continue to ambulate in surgical shoe with a this offloading padding to left heel. There is a slight increase in size in ulceration versus her previous visit Upon range of motion it is noted significantly increased ankle dorsiflexion of the left foot versus right foot. 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 It is likely that tendo Achilles is over length and causing calcaneal gait and contributing to her ulceration. Discussed with her proper diabetic diet to ensure tight glycemic control. States her last A1c was around 7%. Discussed the importance of not ambulating barefoot, this includes socks. Encouraged protective shoe gear to be worn at all times. Discussed the need for proper foot checks nightly and if any suspicious cuts or lesions or wounds appear she is to report to the foot and ankle Center. Discussed essential to continue to offload ulceration as direct pressure and continued ambulation may be affecting her healing. Discussed with her today the signs and symptoms of infection. Discussed if she notices increasing redness about the wound that creeps up to the side of the foot or up the leg, increasing foul odor from the wound site, purulent drainage from the wound site, or if she experiences fever greater than 101 degree accompanied by nausea, vomiting, and chills that these are signs of a progressing infection and she should report to the ED to receive IV antibiotics. She voices understanding of this today. The following work up and care recommendations were made: Dressing: Marry dry sterile dressing. Change dressing daily. Wash: Soap and water Tissue growth optimization: Marry Offload: Plantar offloading padding about the heel and surgical shoe to left foot Vascular: Weakly palpable DP and PT pulses that are monophasic on Doppler. There is a component of microvascular disease with trophic changes to the skin. However I do not feel this is impacting healing status at this time as wound is more related to pressure. Edema: Recommended Tubigrip compression stockings and elevation of lower extremities at times of rest Infection: No signs of infection Pain: May take [id number] Tylenol as needed for discomfort. She is to avoid ibuprofen. Host factors: DM type II with peripheral polyneuropathy, peripheral vascular disease, HTN, HLD, pressure. Discussed at this time all service site does not qualify for applications of advanced wound care products based upon size and thus we will continue local wound care in the office. Patient will call to make appointment in office for next week. I answered all the patient's questions. To return to the wound healing center as needed or call sooner if the patient has any questions or concerns.
== END 2023-11-02 10:09 | disposition home or self-care (01) ==
LOC: WC 09:45
PROVIDERS: PCP Family Medicine Geriatric Medicine; Referring Provider Podiatrist; Visit Provider Student in an Organized Health Care Education/Training Program
DX: E11.621 Type 2 diabetes mellitus with foot ulcer (principal); L97.422 Non-pressure chronic ulcer of left heel and midfoot with fat layer exposed; E11.51 Type 2 diabetes mellitus with diabetic peripheral angiopathy without gangrene; E11.42 Type 2 diabetes mellitus with diabetic polyneuropathy; Z79.4 Long term (current) use of insulin; I10 Essential (primary) hypertension; E78.5 Hyperlipidemia, unspecified; J45.909 Unspecified asthma, uncomplicated; F17.200 Nicotine dependence, unspecified, uncomplicated; Z79.82 Long term (current) use of aspirin; Z79.890 Hormone replacement therapy; Z79.899 Other long term (current) drug therapy
CPT/HCPCS: 11042; 99213; G0463

== ENCOUNTER → 2023-12-28 | Outpatient (CLI) | payer MEDICARE, MEDICAID, SELFPAY ==
[2023-12-28 15:00] LABS: Absolute Lymphocyte Count 1.94 X10^3/uL (0.83-4.51); Absolute Neutrophil Count 3.4 X10^3/uL (2.0-7.7); Basophil# 0.04 X10^3/uL; Basophil% 0.7 % (0-1); Eosinophil# 0.12 X10^3/uL; Hematocrit 38.6 % (37-47); Hemoglobin 11.9 g/dL (12.0-15.0); Lymphocyte # 1.94 X10^3/ul (0.83-4.51); Lymphocyte % 32.7 % (19-41); Mean Corp Hgb Conc 30.8 g/dL (32-36); Mean Corpuscular Hgb 26.9 pg (27.0-32.0); Mean Corpuscular Volume 87.1 fL (81-99); Mean Platelet Vol. 9.5 fl (6.2-12.0); Monocyte# 0.46 X10^3/uL; Monocyte% 7.8 % (0-10); NRBC Flagged by Analyzer 0 % (0-5); Neutrophil # 3.35 X10^3/uL (2.7-7.7); Neutrophil % 56.5 % (47-70); Platelet Count 247 K/mm3 (150-450); RBC Distribution Width CV 14.9 % (11.6-14.6); RBC Distribution Width SD 47.8 fl (35.1-43.9); Red Blood Count 4.43 M/mm3 (4.2-5.4); White Blood Count 5.9 K/mm3 (4.4-11.0)
[2023-12-28 15:53] LABS: ALB/GLOB Ratio 0.8 RATIO (0.9-2.4); AST(SGOT) 20 U/L (15-37); Alanine Aminotransfer ALT/SGPT 19 U/L (13-56); Albumin, Serum 3.4 g/dL (3.2-5.0); Alkaline Phosphatase 77 U/L (45-117); Anion Gap 4 (5-15); BUN 13 mg/dL (7-18); BUN/Creat Ratio 18.1 RATIO (10-20); Calcium,Total 8.3 mg/dL (8.5-10.1); Chloride 106 mmol/L (98-107); Cholesterol 114 mg/dL (200); Creatinine, Serum 0.72 mg/dL (0.55-1.02); EST Glomerular Filtration Rate 88 mL/min (>60); Est Glom Filt Rate - Afr Amer 107 mL/min (>60); Glucose 103 mg/dL (74-106); High Density Lipoprotein 53 mg/dL; Potassium 4.2 mmol/L (3.5-5.1); Protein, Total 7.4 g/dL (6.4-8.2); Sodium Level 139 mmol/L (136-145); Triglycerides 167 mg/dL; Very Low Density Lipoprotein 33 mg/dL (5-40)
[2023-12-28 16:03] LABS: Hemoglobin A1c 6.2 % (3.8-5.6); Vitamin D,25 Hydroxy 52.6 ng/mL
== END | disposition home or self-care (01) ==
LOC: LAB 14:17
PROVIDERS: PCP Family Medicine Geriatric Medicine; Visit Provider Family Medicine Geriatric Medicine
DX: E11.65 Type 2 diabetes mellitus with hyperglycemia (principal); I10 Essential (primary) hypertension; E55.9 Vitamin D deficiency, unspecified; E78.5 Hyperlipidemia, unspecified
CPT/HCPCS: 36415; 80053; 80061; 82306; 83036; 84443; 85025

== ENCOUNTER → 2024-01-08 | Outpatient (CLI) | payer MEDICARE, MEDICAID, SELFPAY | END | disposition home or self-care (01) | LOC: PSN 13:02 | PROVIDERS: PCP Family Medicine Geriatric Medicine; Referring Provider Family Medicine Geriatric Medicine; Visit Provider Family Medicine Geriatric Medicine | DX: R06.02 Shortness of breath (principal) | CPT/HCPCS: 94060 ==

== ENCOUNTER → 2024-01-18 | Outpatient (CLI) | payer MEDICARE, MEDICAID, SELFPAY ==
[2024-01-18 17:20] LABS: Absolute Lymphocyte Count 1.86 X10^3/uL (0.83-4.51); Absolute Neutrophil Count 3.6 X10^3/uL (2.0-7.7); Basophil# 0.04 X10^3/uL; Basophil% 0.6 % (0-1); Eosinophils% 3.2 % (0-5); Hematocrit 41.9 % (37-47); Hemoglobin 12.9 g/dL (12.0-15.0); Lymphocyte # 1.86 X10^3/ul (0.83-4.51); Lymphocyte % 30.2 % (19-41); Mean Corp Hgb Conc 30.8 g/dL (32-36); Mean Corpuscular Hgb 27.4 pg (27.0-32.0); Mean Corpuscular Volume 89.1 fL (81-99); Mean Platelet Vol. 9.2 fl (6.2-12.0); Monocyte# 0.45 X10^3/uL; Monocyte% 7.3 % (0-10); NRBC Flagged by Analyzer 0 % (0-5); Neutrophil # 3.59 X10^3/uL (2.7-7.7); Neutrophil % 58.4 % (47-70); Platelet Count 336 K/mm3 (150-450); RBC Distribution Width SD 49.2 fl (35.1-43.9); White Blood Count 6.2 K/mm3 (4.4-11.0)
[2024-01-18 17:26] LABS: Prothrombin Time (Protime)PT. 13.2 SECONDS (11.7-14.9)
[2024-01-18 17:32] LABS: ALB/GLOB Ratio 0.9 RATIO (0.9-2.4); AST(SGOT) 21 U/L (15-37); Alanine Aminotransfer ALT/SGPT 22 U/L (13-56); Albumin, Serum 3.5 g/dL (3.2-5.0); Alkaline Phosphatase 82 U/L (45-117); Anion Gap 3 (5-15); BUN 16 mg/dL (7-18); BUN/Creat Ratio 19.9 RATIO (10-20); Calcium,Total 8.7 mg/dL (8.5-10.1); Chloride 105 mmol/L (98-107); EST Glomerular Filtration Rate 78 mL/min (>60); Est Glom Filt Rate - Afr Amer 94 mL/min (>60); Globulin 4.1 g/dL (2.2-4.2); Glucose 208 mg/dL (74-106); Potassium 4.8 mmol/L (3.5-5.1); Protein, Total 7.6 g/dL (6.4-8.2); Sodium Level 138 mmol/L (136-145)
[2024-01-18 17:39] LABS: Hemoglobin A1c 6.1 % (3.8-5.6)
== END | disposition home or self-care (01) ==
LOC: LAB 16:19
PROVIDERS: PCP Family Medicine Geriatric Medicine; Referring Provider Family Medicine Geriatric Medicine; Visit Provider Family Medicine Geriatric Medicine
DX: E11.65 Type 2 diabetes mellitus with hyperglycemia (principal); R06.02 Shortness of breath; I10 Essential (primary) hypertension
CPT/HCPCS: 36415; 80053; 83036; 85025; 85610

== ENCOUNTER 2024-01-26 11:09 | Day surgery (SDC) | payer MEDICARE, MEDICAID, SELFPAY ==
[2024-01-26] VITALS (7 sets, daily range): BP systolic 135–168; BP diastolic 77–95; PULSE 65–80; RESP 16; TEMP 36.1–36.4; O2SAT 92–100; BMI 33.0
--- NOTE | 2024-01-26 11:20 | RAD_ITS ---
INDICATION: PREOP EXAMINATION/TECHNIQUE: X-RAY - XR Chest 2 Views COMPARISON: None. FINDINGS: LINES/DEVICES: None. LUNGS: No consolidation, edema or effusion. No pneumothorax. MEDIASTINUM AND CARDIOVASCULAR STRUCTURES: Cardiac silhouette not enlarged. Central airways and mediastinal contour are unremarkable. BONES AND SOFT TISSUES: No acute findings. RAD/Chest PA and Lateral IMPRESSION: No radiographic evidence of acute cardiopulmonary disease. Electronically Signed: Gary Mazariegos MD at 22:25 EDT ,
[2024-01-26] MEDS: Lactated Ringers 1,000 ML 15 ML IV (11:58)
--- NOTE | 2024-01-26 12:03 | DCINST_ITS ---
Discharge Instructions Diet Discharge Diet: No restrictions Activity Discharge Activity: May Drive (May resume driving when no longer taking narcotic medication.) and May Shower (Please utilize cast bag covering when showering while seated on shower chair to keep dressings clean, dry, and intact to the left lower extremity) Weight Bearing Status: No weight bearing (Please remain nonweightbearing to left lower extremity with the assistance of walker/knee scooter/wheelchair) Keep extremity elevated above heart level: Left Leg (Elevate left lower extremity at all times of rest for postoperative edema control) Dressing / Incision Call your doctor if you observe: Fever of 101 or Higher, Shortness of breath, Chest pain, Calf discomfort and Uncontrolled pain Change Dressing in: do not change dressing Remove Dressing in: leave in place till F/U (Do not change dressing. Leave dressing in place as physician will change dressing at first postoperative appointment) Cleanse incision/area with: Do not get Incision Wet and Keep Dressing Clean & Dry (Do not get site wet. Please keep dressings clean, dry, and intact to the left lower extremity.) Follow Up Care Please Follow Up With: Zack Smith DPM When: Patient has first postoperative appointment with me in office early next week Test Results: Test results from this visit will be discussed in further detail at your follow- up appointment, if applicable. Discharge Plan Admission Attending Provider: Zack Smith Primary Care Provider: Gulshan Early Chi Instructions Print Language: [place]itanian Discharge Orders/Prescriptions Prescriptions: New ondansetron 4 mg tablet,disintegrating 4 mg PO Q8H Qty: 28 0RF aspirin 325 mg capsule 325 mg PO DAILY Qty: 20 0RF doxycycline hyclate 100 mg capsule 100 mg PO DAILY Qty: 10 0RF oxycodone-acetaminophen 5-325 mg tablet 1 tab PO Q8H PRN (Reason: pain) 7 Days Qty: 28 0RF No Action omeprazole 40 mg capsule,delayed release(DR/EC) 40 mg PO DAILY levothyroxine 175 mcg tablet 175 mcg PO DAILY aspirin [Adult Low Dose Aspirin] 81 mg tablet,delayed release (DR/EC) 81 mg PO DAILY metoprolol succinate 200 mg tablet extended release 24 hr 200 mg PO DAILY (DME) pen needle, diabetic [BD Ultra-Fine [place] Pen Needle] 32 gauge x 5/32 needle See Rx Instructions .Route Qty: 100 3RF Rx Instructions: daily Fiasp FlexTouch U-100 Insulin 100 unit/mL (3 mL) insulin pen 10 unit subcut TID Qty: 9 5RF (DME) True Metrix Glucose Test Strip Strip See Rx Instructions .Route Qty: 100 6RF Rx Instructions: three times dailyl glimepiride 4 mg tablet 4 mg PO DAILY Qty: 30 6RF paroxetine HCl 40 MG tablet 40 mg PO DAILY pregabalin 150 MG capsule 150 mg PO TID rosuvastatin [Crestor] 40 mg Tablet 40 mg PO DAILY losartan 100 mg tablet 100 mg PO DAILY dapagliflozin propanediol [Farxiga] 10 mg tablet 10 mg PO DAILY potassium chloride [Klor-Con M20] 20 mEq Tablet,Er Particles/Crystals 20 meq PO BIDCM 30 Days Qty: 60 0RF albuterol sulfate 90 mcg/actuation HFA aerosol inhaler 1 puff inhalation Q6H PRN PRN (Reason: shortness of breath or wheezing) trazodone 100 mg Tablet 200 mg PO QHS Mounjaro 7.5 mg/0.5 mL pen injector 7.5 mg subcut MO Referrals / Follow Up: Gulshan Early Chi, MD [Primary Care Provider] - Disposition Disposition (needs filled in before D/C Order can be placed): Home, Self Care
[2024-01-26 12:16] LABS: Bedside Glucose 155 mg/dL (74-106)
[2024-01-26] MEDS: Clindamycin 900 MG/50 ML BAG 75 MG IV (13:17)
--- NOTE | 2024-01-26 13:47 | RAD_ITS ---
STUDY: X-RAY - LEFT ANKLE REASON FOR EXAM: Female, 58 years old. PAIN TECHNIQUE: 2 view(s) of the ankle. COMPARISON: None. FINDINGS: 35 seconds of fluoroscopy of the left ankle was utilized in the operating room during Achilles tendon surgery in 3 images are submitted for interpretation. . RAD/Ankle 2 Views IMPRESSION: Fluoroscopy during surgery. Electronically Signed: Favian Bryant MD at 20:37 EDT ,
[2024-01-26] MEDS: Bupivacaine Mpf 0.5% 30 ML VIAL (13:54)
[2024-01-26] MEDS: Lidocaine 1% (20 ml mdv) 20 ML Vial (13:54)
--- NOTE | 2024-01-26 17:40 | RAD_ITS ---
STUDY: X-RAY - LEFT FOOT CLINICAL: Female, 58 years old. Post-op Achilles Tendon shortening/FHL transfer TECHNIQUE: 3 view(s) of the foot. COMPARISON: None. FINDINGS: Normal talus, calcaneus, and tarsal bones. Small plantar calcaneal enthesophyte. Normal visualized subtalar, talonavicular, calcaneocuboid, tarsal and tarsometatarsal articulations. Normal metatarsi. Normal metatarsophalangeal joint of the great toe. Normal tibial and fibular sesamoid bones. Status post partial indication of the first digit. Normal second through fifth metatarsophalangeal joints. Status post partial amputation of the second and third digits. Subcutaneous emphysema posteriorly consistent with recent Achilles tendon surgery. Fiberglass cast obscures soft tissue and bony detail. RAD/Foot min 3 Views IMPRESSION: Recent Achilles tendon surgery. Electronically Signed: Favian Bryant MD at 16:18 EDT ,
[2024-01-26 17:52] LABS: Bedside Glucose 169 mg/dL (74-106)
--- NOTE | 2024-01-26 18:02 | PCM.OPRPT ---
Problems Associated Problem List Diagnoses (1) Partial tear of left Achilles tendon: (2) Degeneration of Achilles tendon: (3) Calcaneal gait: (4) Achilles tendinitis, left leg: (5) Non-pressure chronic ulcer of left heel and midfoot with fat layer exposed: (6) Diabetes mellitus with diabetic polyneuropathy: (7) Peripheral vascular disease, unspecified: Report of Operation Date of Procedure: 01/26/24 Pre-Operative Diagnosis: 1. Calcaneal gait left foot 2. Pressure ulceration left heel 3. Diabetes mellitus type 2 with peripheral polyneuropathy 4. Diabetes mellitus type 2 with ulceration left foot 5. Peripheral vascular disease Post-Operative Diagnosis: 1. Partial tear Left Achilles tendon 2. Degeneration Left Achilles tendon 3. Achilles tendinitis Left foot 4. Calcaneal gait Left foot 5. Healed Pressure ulceration Left heel 6. Peripheral vascular disease Surgery/Procedure Performed:: 1. Primary repair of Achilles tendon tear Left foot 2. Tendo Achilles shortening/advancement Left foot 3. Flexor hallucis longus tendon transfer Left foot 4. Debridement of Achilles tendon and tenosynovitis of Left foot 5. Application of AO splint left foot Surgeon: Zack Smith coffee sampler: None Type of Anesthesia: General and Local (20 cc one-to-one mixture 1% lidocaine plain and 0.5% Marcaine plain) Anesthesiologist: Glenn Katz Specimen's removed: None Drains: None Estimated Blood Loss (mL): < 4 mL Description of Procedure: HPI/indication: Patient is a 58-year-old female who has been followed by another provider for plantar calcaneal wound which was nonhealing for greater than 6 months. Patient was then referred to the wound care center and I did see her there. At that time she had noted nonhealing ulceration measuring 0.5 cm x 0.5 cm x 0.2 cm. She was ambulating in surgical shoe with plantar offloading padding about the heel. She had tried multiple interventions of localized wound care, Betadine, Marry, hydrogel, but had failed these interventions and was referred to the wound care center for applications of advanced wound care product. Upon my review of patient's history and examination it was determined the patient had a calcaneal gait contributing to plantar heel ulceration. At that time she did have excessive dorsiflexion versus contralateral limb and did have palpable Achilles tendon. Patient states that several years ago following an infection in which they performed a partial hallux amputation with surgeon performed a tendo Achilles lengthening of the left foot. Patient states that her gait has been off since recovery from that surgical procedure and had thought this was from her diabetes. Discussed with patient the need to undergo surgical intervention to correct the left foot deformity to allow for ulceration to heal. Patient did continue to follow for local wound care in office and was returned to [facility] to restrict ankle motion and thus ulceration did heal. Surgical intervention was continued to be discussed with patient and she was willing to move forward with the procedure. Discussed the surgery in great detail. Discussed the risks and benefits of the surgical procedure. Discussed that the risks include but are not limited to the following: Pain, continued pain, complex regional pain syndrome, neuritis/numbness, edema, scarring, poor cosmetic result, overcorrection, under correction, scar tissue, tendon adhesions, fracture, bleeding, delayed healing/nonhealing, dehiscence, infection, deformity, worsening deformity, floating toe, difficulty with ambulation, difficulty wearing shoe gear, blood clot, stroke, allergic reaction, loss of function, loss of limb, loss of life. Patient voices understanding of these and was able to repeat these back. Patient wishes to move forward with surgical intervention. Patient signed consent forms freely. All questions were answered to patient's satisfaction. No promises were made. No guarantees were given. Patient underwent medical clearance and was cleared for surgery by PCP. Surgical intervention was scheduled at [facility] on 01/26/2024. Patient was seen prior to intervention and operative limb was signed prior to entering the OR. Procedure: Under mild sedation was patient brought into the operating room and underwent general anesthesia. Following induction of general anesthesia patient was transferred to the table in the prone position with all prominences well padded and offloaded. A pneumatic thigh tourniquet was placed about the patient's left thigh. Patient was secured to table with safety belt. [place] bump was utilized to elevate the left lower extremity and aid in offloading of the knee. The left lower extremity was then scrubbed, prepped, and draped in usual aseptic manner. A local anesthetic block was then performed about the proximal lower leg consisting of 10 cc one-to-one mixture 1% lidocaine plain and 0.5% Marcaine plain. An Esmarch bandage was utilized to exsanguinate the left lower extremity the foot was then elevated and the pneumatic thigh tourniquet was inflated to 300 mmHg. At this time attention was directed to the left lower extremity where range of motion testing was performed demonstrating excessive dorsiflexion versus the contralateral limb. Next, a linear incision was made parallel to the Achilles tendon proximally and curved off of the heel distally utilizing a #15 blade. Incision was deepened through sharp and blunt dissection and care was taken to identify and retract all vital neurovascular structures. Upon entry into the subcutaneous tissues there is noted to be multiple regions of tendon adhesion, rupture of the peritenon covering, scar tissue, and excessive serous fluid collection. What remained of the the peritenon was incised centrally and tagged on the left and right utilizing a 4-0 Vicryl. Upon entry into the peritenon there is noted to be significant inflammation and degeneration of the peritenon and Achilles tendon. Previous tendon lengthening was noted in addition to partial Achilles tendon rupture just proximal to the watershed region. There is also noted to be significant fraying of the tendon and degeneration consistent with longstanding Achilles tendinitis and tendinopathy in addition to prior partial Achilles tendon tear. It is noted with these findings it is possible following a successful prior tendo Achilles lengthening the patient may have fallen or missed stepped causing rupture of the Achilles tendon within the last year and given patient's diabetic peripheral polyneuropathy she was unaware of the tear and developed calcaneal gait. Portions of the nonviable Achilles tendon were debrided to healthy-appearing tendon. Peritenon was debrided of all tenosynovitis and all tendon adhesions were released for sufficient mobilization of the Achilles tendon. Next, a Z cut was made through the Achilles tendon and the proximal portion was clamped with a hemostat and reflected proximally and the plantar portion was clamped with a hemostat and reflected distally. The fascia covering of the deep muscular layer was identified and transected linearly with a #15 blade. The hallux was then mobilized and the flexor hallucis longus tendon was identified. Tendon was clamped proximally near the musculotendinous junction with hemostat and the tendon was tracked distally to the tunnel of the marcie pedis and was transected for FHL tendon transfer. Next, fluoroscopy was utilized to assist in placement of the tenodesis screw. Following AO technique the implantation site was prepared for tendon transfer. A #2 Dynacord suture was utilized to aid in anchoring the tendon and was advanced via suture passer through the plantar calcaneus and through the bottom of the foot. Foot was held in slight plantarflexion and an Arthrex 7 x 20 mm tenodesis screw was inserted into the calcaneus to anchor the flexor hallucis longus tendon. During anchoring the head of the tenodesis screw did fracture with the head removed and passed to the table the remaining portion of the tenodesis screw was debrided flush to the bone and the tendon was noted to be anchored well at this time. A single 4-0 Prolene stitch was utilized to close the plantar heel stab incision. Next, site was then irrigated with copious amounts of normal sterile saline. Following irrigation the portions of the Achilles tendon were reapproximated with the foot in plantarflexion to allow for shortening of the Achilles tendon and the tendon underwent primary repair utilizing 0 Prolene utilizing a modified Benitez suture technique. At this time the foot was put through a gentle range of motion testing dorsiflexion and the FHL tendon broke free of the tenodesis screw. Next, the FHL was then transferred and sutured into the Achilles tendon for reinforcement/augmentation and completion of the tendon transfer. The Achilles tendon was then reinforced with a #2 Ethibond in a modified Benitez suture technique with the FHL bound to the Achilles tendon. The site was again flushed with copious amounts of normal sterile saline. At this time the foot again went through range of motion and dorsiflexion was noted to be comparable to the left foot indicating correction of deformity. Following this utilizing fluoroscopy two 4.5mm Mytek suture anchors with #2 Dynacord sutures were implanted at the insertion of the Achilles tendon medial and lateral and the tendon was reinforced with the sutures with knots buried. At this time the pneumatic thigh tourniquet was deflated and a prompt hyperemic response was noted to the digits of the left foot. Site was again flushed with copious amounts of normal sterile saline. Final fluoroscopic images were obtained and reviewed prior to closure. The peritenon was then repaired overlying the Achilles tendon utilizing a 4-0 Vicryl. Next, a subcuticular closure was performed utilizing 4-0 Monocryl. The skin was then reapproximated utilizing 2-0 Prolene in simple interrupted fashion. A postoperative block was then performed about the proximal lower leg consisting of 10 cc one-to-one mixture 1% lidocaine plain and 0.5% Marcaine plain. Incision site was then dressed utilizing Betadine soaked Adaptic, 4 x 4 gauze, Kerlix, ABD, Webril cast padding, 4 inch Mustapha, 6 inch Mustapha. A well molded AO splint was applied to the left lower extremity with the foot in gravity equinus and anchored utilizing 4 inch Mustapha and 6 inch Mustapha wrap and modified Espinoza compression fashion. The patient tolerated the procedure and anesthesia well and was transported the PACU vital signs stable and vascular status intact to the left foot. Discharge instructions were given to patient and family outlining postoperative care. Discussed with family patient is not to get the dressings wet and utilize a cast bag when showering. She is also to remain nonweightbearing to the left lower extremity at all times utilizing wheelchair/knee scooter/walker. Patient is to keep all dressings clean, dry, and intact to the left lower extremity. Patient also instructed to elevate lower extremity at all times of rest for postoperative edema control. Patient has appointment with me in office early next week for continued postoperative care. Grafts/Implants Used: 7 x 20 mm tenodesis screw; 4.5mm Mytek anchor and # 2 Dynacord suture Complications None Admit VTE Documentation VTE Present on Admission: Yes VTE Mechan Device Prophylaxis: SCD's VTE Pharm Prophylaxis ordered?: Yes
[2024-01-26] MEDS: Ketorolac 30 MG/ML Syringe IM (18:13)
== END 2024-01-26 18:46 | disposition home or self-care (01) ==
LOC: SDC 11:10 → AC 11:11
PROVIDERS: PCP Family Medicine Geriatric Medicine; Referring Provider Student in an Organized Health Care Education/Training Program; Visit Provider Student in an Organized Health Care Education/Training Program
PROC: (CPT 27650; principal; 2024-01-26 12:45)
DX: E11.621 Type 2 diabetes mellitus with foot ulcer (principal); L97.302 Non-pressure chronic ulcer of unspecified ankle with fat layer exposed; E11.51 Type 2 diabetes mellitus with diabetic peripheral angiopathy without gangrene; E11.42 Type 2 diabetes mellitus with diabetic polyneuropathy; E11.65 Type 2 diabetes mellitus with hyperglycemia; L89.629 Pressure ulcer of left heel, unspecified stage; M76.62 Achilles tendinitis, left leg; S86.012A Strain of left Achilles tendon, initial encounter; F17.210 Nicotine dependence, cigarettes, uncomplicated; Z98.51 Tubal ligation status; Z90.49 Acquired absence of other specified parts of digestive tract; R06.02 Shortness of breath; D50.9 Iron deficiency anemia, unspecified; G47.00 Insomnia, unspecified; F33.42 Major depressive disorder, recurrent, in full remission; M79.7 Fibromyalgia; E78.5 Hyperlipidemia, unspecified; I10 Essential (primary) hypertension; M46.96 Unspecified inflammatory spondylopathy, lumbar region; Z89.412 Acquired absence of left great toe; E87.6 Hypokalemia; K21.9 Gastro-esophageal reflux disease without esophagitis; E03.9 Hypothyroidism, unspecified; M54.16 Radiculopathy, lumbar region; E55.9 Vitamin D deficiency, unspecified
CPT/HCPCS: 27685; 27650; 27691; 01470; 71046; 73600; 73630; 76000; 82962; 93005; C1713; J7120; J2405

== ENCOUNTER 2024-02-21 16:45 | Inpatient (IN) | payer MEDICARE, MEDICAID, SELFPAY ==
[2024-02-21 16:46] VITALS: BP 120/86; PULSE 71; RESP 16; TEMP 36.6; O2SAT 95
[2024-02-21 17:05] VITALS: BMI 33.2
--- NOTE | 2024-02-21 17:06 | ED.VIS.LOWEX ---
HPI History of Present Illness Chief Complaint: Wound Informant: patient Narrative Narrative: Patient states she had surgery on her left foot and Achilles area about 3-1/[address] Smith podiatry, she states a week or 2 ago she stepped funny and the wound by her Achilles started bleeding, she took the gauze off and it removed some tissue, and today was the first time she saw her automobile sales representative to show him. She states that she sent him here to the ER to get admitted because she will need grafting. She states she has been feeling subjective fevers, chills, malaise recently but no other systemic symptoms. She states the area is a little sore but she does have neuropathy in both of her feet from diabetes. [facility] Medical History (Updated 02/21/24 @ 20:12 by Madison Campbell) Current use of insulin Post-menopausal Hiatal hernia Back pain due to injury Osteoporosis Sleep apnea Insulin dependent diabetes mellitus Easy bruising Restless legs Difficulty swallowing Tachycardia Smoker Wears dentures Wears glasses Anxiety Iron deficiency Back pain Dietary restriction GERD (gastroesophageal reflux disease) Shortness of breath Asthma CPAP (continuous positive airway pressure) dependence Leg cramping History of pain when walking Edema Cardiology follow-up encounter History of stress test Normal echocardiogram Hypertension Difficulty balancing when standing Asthma Arthritis Fibromyalgia Multinodular thyroid Hypothyroidism Essential (primary) hypertension Hypergammaglobulinemia Hyperlipemia Dermatitis Depression PAD (peripheral artery disease) Other specified peripheral vascular diseases Hammertoe of left foot Skin ulcer of right foot including toes with fat layer exposed Osteomyelitis of toe Morbid obesity with BMI of 40.0-44.9, adult Diabetes type 2, uncontrolled Venous stasis dermatitis of both lower extremities Home Medications ?Medication ?Instructions ?Recorded ?Last Taken ?Type omeprazole 40 mg capsule,delayed 40 mg PO DAILY ACID REFLUX 10/18/18 01/25/24 History release paroxetine HCl 40 mg tablet 40 mg PO DAILY DEPRESSION 10/29/19 02/28/23 History pregabalin 150 mg capsule 150 mg PO TID NERVE PAIN 10/29/19 02/28/23 History aspirin 81 mg tablet,delayed 81 mg PO DAILY HEART HEALTH 07/21/20 01/24/24 History release (Adult Low Dose Aspirin) metoprolol succinate 200 mg 200 mg PO DAILY BLOOD PRESSURE 07/21/20 01/25/24 07:00 History tablet,extended release 24 hr rosuvastatin 40 mg tablet (Crestor) 40 mg PO DAILY CHOLESTEROL 08/26/22 02/28/23 History pen needle, diabetic 32 gauge x #100 ea 02/13/23 Unknown Rx (BD Ultra-Fine [place] Pen Needle) dapagliflozin propanediol 10 mg 10 mg PO DAILY DIABETES 03/01/23 02/28/23 History tablet (Farxiga) losartan 100 mg tablet 100 mg PO DAILY BLOOD PRESSURE 03/01/23 01/25/24 History blood sugar diagnostic (True #100 ea 03/24/23 Unknown Rx Metrix Glucose Test Strip) glimepiride 4 mg tablet 4 mg PO DAILY #30 tabs 04/10/23 Unknown Rx insulin aspart 10 unit subcut TID #9 mL 05/29/23 Unknown Rx (niacinamide)(U-100) 100 unit/mL(3 mL) subcutaneous pen (Fiasp FlexTouch U-100 Insulin) albuterol sulfate 90 mcg/actuation 1 puff inhalation Q6H PRN PRN 01/19/24 01/26/24 10:00 History aerosol inhaler shortness of breath or wheezing tirzepatide 7.5 mg/0.5 mL 7.5 mg subcut QWEEK 01/19/24 01/15/24 History subcutaneous pen injector (Rex) oxycodone-acetaminophen 5 mg-325 1 tab PO Q8H PRN pain 7 days #28 01/26/24 Unknown Rx mg tablet tabs celecoxib 200 mg capsule 200 mg PO DAILY 02/21/24 Unknown History doxepin 25 mg capsule 25 mg PO QHS 02/21/24 Unknown History levothyroxine 150 mcg tablet 150 mcg PO DAILY 02/21/24 Unknown History montelukast 10 mg tablet 10 mg PO DAILY 02/21/24 Unknown History ondansetron 4 mg disintegrating 4 mg PO Q8H PRN nausea and vomiting 02/21/24 Unknown History tablet potassium chloride 20 mEq 20 meq PO DAILY 02/21/24 Unknown History tablet,extended release(part/cryst) (Klor-Con M) trazodone 150 mg tablet 150 mg PO QHS 02/21/24 Unknown History Allergy/AdvReac Type Severity Reaction Status Date / Time piperacillin (From Zosyn) Allergy Severe Anaphylaxis Verified 02/21/24 16:47 tazobactam (From Zosyn) Allergy Severe Anaphylaxis Verified 02/21/24 16:47 sulfamethoxazole (From Allergy Unknown Anaphylaxis Verified 02/21/24 16:47 Bactrim) trimethoprim (From Bactrim) Allergy Unknown Anaphylaxis Verified 02/21/24 16:47 latex Allergy Rash Verified 02/21/24 16:47 pyrethrins Allergy Anaphylaxis Verified 02/21/24 16:47 tetanus and diphtheria Allergy Anaphylaxis Verified 02/21/24 16:47 toxoids (Tetanus&Diphtheria Toxoid) Family History Mother Diabetes Dementia Father Diabetes Myocardial infarction Surgical History Hx of toe surgery History of partial ray amputation of fifth toe of right foot Hx of total knee arthroplasty History of nasal septoplasty History of cholecystectomy History of thyroidectomy H/O arthroscopic knee surgery (11/2019) H/O amputation of lesser toe (05/05/17) Social History household members: none Smoking Status: Current every day smoker tobacco type: cigarettes alcohol intake: current alcohol intake frequency: holidays/special occasions only substance use type: does not use ROS ROS ED Constitutional Constitutional ED: Reports chills, fever(s), malaise and subjective Respiratory/Chest Respiratory/Chest: Denies dyspnea Gastrointestinal Gastrointestinal: Denies abdominal pain or vomiting Musculoskeletal Musculoskeletal: Reports extremity pain; Denies neck pain Integumentary Reports wounds; Denies Abrasions Neurologic Neurologic: Reports paresthesias RLE (Chronic, neuropathy no different now) and LLE (Chronic, neuropathy no different now); Denies weakness EXAM Physical Exam Const Vital Signs: 02/21/24 16:46 02/21/24 16:46 02/21/24 17:47 Temperature 97.8 F 97.8 F 98.8 F Temperature Source Temporal Temporal Oral Pulse Rate 71 71 67 Respiratory Rate 16 16 18 Blood Pressure 120/86 H 120/86 H 117/67 Blood Pressure Mean 97 97 83 Pulse Ox 95 95 95 Oxygen Delivery Method Room Air Room Air Room Air 02/21/24 18:45 Temperature Temperature Source Pulse Rate 66 Respiratory Rate 18 Blood Pressure 124/67 H Blood Pressure Mean 86 Pulse Ox 94 Oxygen Delivery Method Room Air Positive well nourished, well developed and obese General Appearance ED: well developed and NAD Nutritional Appearance: obese Neck full ROM and supple Back/Spine normal ROM and normal to inspection Extremity Extremity Narrative: Left lower extremity: Posterior aspect of foot/ankle at Achilles area there is an approximately 3 x 6 cm patch of skin that is completely missing and the surgical area is completely exposed. There is subcutaneous tissue present, I do not see the Achilles tendon or any bone. There is no active discharge and none expressible when I palpate the soft tissues around it. There is surrounding erythema that extends several centimeters up the lower leg, but there is no erythema beyond the middle of the left lower leg and besides the immediate skin around the wound, there is none in the foot. No subcutaneous emphysema or lymphangitic streaking. No palpable collection/abscess. Neuro oriented x3, no focal motor deficits and no sensory deficits noted Sensorium / Orientation: alert Psych mental status grossly normal and thought process normal Skin Skin Narrative: See left lower extremity for description of posterior ankle wound and erythema. Rashes: no rashes MDM MDM MDM Narrative Medical decision making narrative: Labs and x-rays obtained. Three-view x-rays of the left ankle on my interpretation show no acute fractures, I agree with radiologist interpretation that there may be some demineralization at the upper aspect of the posterior calcaneus which may indicate osteomyelitis. CRP and ESR elevated. No significant leukocytosis. Patient is clinically and hemodynamically stable, started on vancomycin. Discussed with podiatry, they request that we add cefepime to cover Pseudomonas since she is penicillin allergic, and admit to medicine given diabetic infection. Lab Data Attestation: I reviewed the patient's lab results. Labs: Laboratory Results - last 24 hr 02/21/24 17:11 WBC 6.8 RBC 4.05 L Hgb 11.1 L Hct 35.5 L MCV 87.7 MCH 27.4 MCHC 31.3 L RDW Std Deviation 43.6 RDW Coeff of Kami 13.6 Plt Count 288 MPV 9.3 Immature Gran % (Auto) 0.100 Neut % (Auto) 58.5 Lymph % (Auto) 30.4 [place] % (Auto) 8.5 Eos % (Auto) 2.1 Baso % (Auto) 0.4 Absolute Neuts (auto) 4.0 Absolute Lymphs (auto) 2.07 Nucleated RBC % 0 ESR 63 H Sodium 141 Potassium 3.7 Chloride 106 Carbon Dioxide 31.0 Anion Gap 4 L BUN 13 Creatinine 0.66 Estim Creat Clear Calc 112.98 Est GFR (MDRD) Af Amer 117 Est GFR (MDRD) Non-Af 96 BUN/Creatinine Ratio 19.5 Glucose 95 Lactic Acid 1.0 Calcium 8.5 C-React Prot Ext Range 25.90 H Radiography Diagnostic Testing: Clinical Impression(s) from Imaging Studies Ankle X-Ray 02/21/24 17:25 IMPRESSION: Findings which may be consistent with early changes of acute osteomyelitis of the posterior calcaneus. Would recommend clinical correlation and further assessment with MRI if indicated Electronically Signed: Tereso Lara MD at 17:55 EDT , Management Discussion w/another healthcare provider: Hospitalist and Rn Relief Charge (Podiatry Dr. Walters) Discharge Plan Dx/Rx/DC Orders Clinical Impression: Acute osteomyelitis of left calcaneus, Diabetic infection of left foot, Dehiscence of wound Disposition Disposition: Acute Care Hospital [facility] Discharge Date/Time: 02/21/24 19:39
[2024-02-21 17:13] VITALS: BMI 33.2
--- NOTE | 2024-02-21 17:25 | RAD_ITS ---
STUDY: X-RAY - LEFT ANKLE REASON FOR EXAM: Female, 58 years old. infection TECHNIQUE: 3 view(s) of the ankle. COMPARISON: None. FINDINGS: Normal visualized distal tibia and fibula. Normal medial and lateral malleoli. Normal tibiotalar articulation and ankle mortise. Normal visualized talus. There is a large plantar calcaneal spur. There is subchondral lucency and soft tissue swelling of the posterior superior calcaneus suggesting early changes of acute osteomyelitis The visualized subtalar, talonavicular, calcaneocuboid and tarsal articulations are normal. Mild bimalleolar soft tissue swelling RAD/Ankle min 3 Views IMPRESSION: Findings which may be consistent with early changes of acute osteomyelitis of the posterior calcaneus. Would recommend clinical correlation and further assessment with MRI if indicated Electronically Signed: Tereso Lara MD at 17:55 EDT ,
[2024-02-21 17:35] LABS: Erythrocyte Sedimentation Rate 63 mm/hr (0-30)
[2024-02-21 17:37] LABS: Absolute Lymphocyte Count 2.07 X10^3/uL (0.83-4.51); Basophil# 0.03 X10^3/uL; Basophil% 0.4 % (0-1); Eosinophil# 0.14 X10^3/uL; Eosinophils% 2.1 % (0-5); Hematocrit 35.5 % (37-47); Hemoglobin 11.1 g/dL (12.0-15.0); Lymphocyte # 2.07 X10^3/ul (0.83-4.51); Lymphocyte % 30.4 % (19-41); Mean Corp Hgb Conc 31.3 g/dL (32-36); Mean Corpuscular Hgb 27.4 pg (27.0-32.0); Mean Corpuscular Volume 87.7 fL (81-99); Mean Platelet Vol. 9.3 fl (6.2-12.0); Monocyte# 0.58 X10^3/uL; Monocyte% 8.5 % (0-10); NRBC Flagged by Analyzer 0 % (0-5); Neutrophil # 3.99 X10^3/uL (2.7-7.7); Neutrophil % 58.5 % (47-70); Platelet Count 288 K/mm3 (150-450); RBC Distribution Width CV 13.6 % (11.6-14.6); RBC Distribution Width SD 43.6 fl (35.1-43.9); Red Blood Count 4.05 M/mm3 (4.2-5.4); White Blood Count 6.8 K/mm3 (4.4-11.0)
[2024-02-21 17:45] LABS: Anion Gap 4 (5-15); BUN 13 mg/dL (7-18); BUN/Creat Ratio 19.5 RATIO (10-20); Calcium,Total 8.5 mg/dL (8.5-10.1); Chloride 106 mmol/L (98-107); Creatinine, Serum 0.66 mg/dL (0.55-1.02); EST Glomerular Filtration Rate 96 mL/min (>60); Est Glom Filt Rate - Afr Amer 117 mL/min (>60); Estimated Creatinine Clearance 112.98 ml/min; Glucose 95 mg/dL (74-106); Potassium 3.7 mmol/L (3.5-5.1); Sodium Level 141 mmol/L (136-145)
[2024-02-21 17:47] VITALS: BP 117/67; PULSE 67; RESP 18; TEMP 37.1; O2SAT 95
[2024-02-21 18:45] VITALS: BP 124/67; PULSE 66; RESP 18; O2SAT 94
--- NOTE | 2024-02-21 18:46 | PCM.HP.STD ---
HPI - General General Date of Admission: 02/21/24 Date of Service: 02/21/24 Chief Complaint: Ankle osteomyelitis HPI Narrative REMI TREVINO, is a 58 F with past medical history of type 2 diabetes mellitus follows up with endocrinology, diabetic foot, peripheral artery disease, GERD, asthma, morbid obesity BMI 33.2, who presents from the [facility] [employer] office regarding management of her left ankle wound. She underwent a primary repair of her Achilles tendon tear of the left foot on 01/26/2024 and was scheduled for an outpatient follow-up today. She reports some pain over the site and recurrent bleeding on light touch. No fever no nausea no vomiting no other active concerns. In the ED, Blood pressure 130s/67 pulse 67 temperature 98.8, WBC 6.8, hemoglobin 11.1, ESR 63, sodium 141, CRP 25.9. X-ray ankle showed early changes of acute osteomyelitis of the posterior calcaneus. She was started on cefepime in the ED. [facility] Medical History Insulin dependent diabetes mellitus Easy bruising Restless legs Difficulty swallowing Tachycardia Smoker Wears dentures Wears glasses Anxiety Iron deficiency Back pain Dietary restriction GERD (gastroesophageal reflux disease) Shortness of breath Asthma CPAP (continuous positive airway pressure) dependence Leg cramping History of pain when walking Edema Cardiology follow-up encounter History of stress test Normal echocardiogram Hypertension Difficulty balancing when standing Asthma Arthritis Fibromyalgia Multinodular thyroid Hypothyroidism Essential (primary) hypertension Hypergammaglobulinemia Hyperlipemia Dermatitis Depression PAD (peripheral artery disease) Other specified peripheral vascular diseases Hammertoe of left foot Skin ulcer of right foot including toes with fat layer exposed Osteomyelitis of toe Morbid obesity with BMI of 40.0-44.9, adult Diabetes type 2, uncontrolled Venous stasis dermatitis of both lower extremities Home Medications ?Medication ?Instructions ?Recorded ?Last Taken ?Type omeprazole 40 mg capsule,delayed 40 mg PO DAILY ACID REFLUX 10/18/18 01/25/24 History release paroxetine HCl 40 mg tablet 40 mg PO DAILY DEPRESSION 10/29/19 02/28/23 History pregabalin 150 mg capsule 150 mg PO TID NERVE PAIN 10/29/19 02/28/23 History aspirin 81 mg tablet,delayed 81 mg PO DAILY HEART HEALTH 07/21/20 01/24/24 History release (Adult Low Dose Aspirin) levothyroxine 175 mcg tablet 175 mcg PO DAILY THYROID 07/21/20 01/25/24 History metoprolol succinate 200 mg 200 mg PO DAILY BLOOD PRESSURE 07/21/20 01/25/24 07:00 History tablet,extended release 24 hr rosuvastatin 40 mg tablet (Crestor) 40 mg PO DAILY CHOLESTEROL 08/26/22 02/28/23 History pen needle, diabetic 32 gauge x #100 ea 02/13/23 Unknown Rx (BD Ultra-Fine [place]ina Pen Needle) dapagliflozin propanediol 10 mg 10 mg PO DAILY DIABETES 03/01/23 02/28/23 History tablet (Farxiga) losartan 100 mg tablet 100 mg PO DAILY BLOOD PRESSURE 03/01/23 01/25/24 History potassium chloride 20 mEq 20 meq PO BIDCM 30 days #60 tabs 03/15/23 Unknown Rx tablet,extended release(part/cryst) (Klor-Con M) blood sugar diagnostic (True #100 ea 03/24/23 Unknown Rx Metrix Glucose Test Strip) glimepiride 4 mg tablet 4 mg PO DAILY #30 tabs 04/10/23 Unknown Rx insulin aspart 10 unit subcut TID #9 mL 05/29/23 Unknown Rx (niacinamide)(U-100) 100 unit/mL(3 mL) subcutaneous pen (Fiasp FlexTouch U-100 Insulin) albuterol sulfate 90 mcg/actuation 1 puff inhalation Q6H PRN PRN 01/19/24 01/26/24 10:00 History aerosol inhaler shortness of breath or wheezing tirzepatide 7.5 mg/0.5 mL 7.5 mg subcut MO 01/19/24 01/15/24 History subcutaneous pen injector (Vaughnunjaro) trazodone 100 mg tablet 200 mg PO QHS 01/19/24 Unknown History aspirin 325 mg capsule 325 mg PO DAILY #20 caps 01/26/24 Unknown Rx doxycycline hyclate 100 mg capsule 100 mg PO DAILY #10 caps 01/26/24 Unknown Rx ondansetron 4 mg disintegrating 4 mg PO Q8H #28 tabs 01/26/24 Unknown Rx tablet oxycodone-acetaminophen 5 mg-325 1 tab PO Q8H PRN pain 7 days #28 01/26/24 Unknown Rx mg tablet tabs Allergy/AdvReac Type Severity Reaction Status Date / Time piperacillin (From Zosyn) Allergy Severe Anaphylaxis Verified 02/21/24 16:47 tazobactam (From Zosyn) Allergy Severe Anaphylaxis Verified 02/21/24 16:47 sulfamethoxazole (From Allergy Unknown Anaphylaxis Verified 02/21/24 16:47 Bactrim) trimethoprim (From Bactrim) Allergy Unknown Anaphylaxis Verified 02/21/24 16:47 latex Allergy Rash Verified 02/21/24 16:47 pyrethrins Allergy Anaphylaxis Verified 02/21/24 16:47 tetanus and diphtheria Allergy Anaphylaxis Verified 02/21/24 16:47 toxoids (Tetanus&Diphtheria Toxoid) Family History Mother Diabetes Dementia Father Diabetes Myocardial infarction Surgical History Hx of toe surgery History of partial ray amputation of fifth toe of right foot Hx of total knee arthroplasty History of nasal septoplasty History of cholecystectomy History of thyroidectomy H/O arthroscopic knee surgery (11/2019) H/O amputation of lesser toe (05/05/17) Social History household members: none Smoking Status: Current every day smoker tobacco type: cigarettes alcohol intake: current alcohol intake frequency: holidays/special occasions only substance use type: does not use ROS Review of Systems ROS Unobtainable: due to encephalopathy, due to endotracheal tube, due to mental condition, due to mental status and other Constitutional Constitutional: Reports malaise and night sweats Eyes Eyes: Denies blurry vision, change in eye color, change in vision, discharge from eye(s), double vision, erythema, eye pain, loss of vision or other ENT HEENT: Denies abnormal hearing, dysphagia, ear pain, epistaxis, headache(s), hearing loss, nasal congestion, nasal discharge, post nasal drip, sinus pressure, sore throat or other Cardiovascular Cardiovascular: Denies chest pain, claudication, dyspnea on exertion, edema, lightheadedness, orthopnea, palpitations, paroxysmal nocturnal dyspnea, rapid heart rate, syncope or other Respiratory/Chest Respiratory/Chest: Denies cough, dyspnea, excessive phlegm production, hemoptysis, productive cough, shortness of breath at rest, shortness of breath with exertion, wheezing or other Gastrointestinal Gastrointestinal: Denies abdominal pain, coffee ground emesis, constipation, diarrhea, dyspepsia, hematemesis, hematochezia, loose stools, melena, nausea, vomiting or other Genitourinary Genitourinary: Denies burning urination, difficulty urinating, dysuria, hematuria, nocturia, urinary frequency, urinary hesitancy, urinary incontinence, urinary urgency or other Musculoskeletal Musculoskeletal: Reports arthralgias, joint pain, joint stiffness and joint swelling Neurologic Neurologic: Denies abnormal gait, abnormal speech, confusion, disequilibrium, dizziness, focal weakness, headache(s), numbness, paresthesias, seizure-like activity, seizures, syncope, tingling, tremor(s) or other Psychiatric Psychiatric: Denies anxiety, depression, homicidal ideation, suicidal ideation or other Endocrine Endocrinology: Denies change in body appearance, cold intolerance, excessive sweating, heat intolerance, polydipsia, polyuria or other Hematologic/Lymphatic Hematologic/Lymphatic: Denies anemia, easy bleeding, easy bruising, lymphadenopathy or other Allergic/Immunologic Allergic/Immunologic: Denies rhinitis, hives, eczemia, asthma or other Vital Signs Vital Signs Vital Signs: 02/21/24 16:46 02/21/24 16:46 02/21/24 17:47 Temperature 97.8 F 97.8 F 98.8 F Temperature Source Temporal Temporal Oral Pulse Rate 71 71 67 Respiratory Rate 16 16 18 Blood Pressure 120/86 H 120/86 H 117/67 Blood Pressure Mean 97 97 83 Pulse Ox 95 95 95 Oxygen Delivery Method Room Air Room Air Room Air Weight Weight: 218 lb 7.649 oz Body Mass Index (BMI) 33.2 Physical Exam Const alert and oriented x3 HEENT normocephalic and head/scalp atraumatic Eyes PERRL Resp normal respiratory effort Cardio regular rate and regular rhythm GI normal to inspection, nondistended, normoactive bowel sounds Extremity Extremity Narrative: Left ankle wound with mild induration on the edges, underlying sutures can be seen, no bleeding. Neuro oriented x3, moves all extremities and no focal motor deficits Results Medical Records Data Attestation: I reviewed the patient's medical records Lab / Micro Data Attestation: I reviewed the patient's lab results. 02/21/24 17:11 02/21/24 17:11 Labs: Laboratory Results - last 24 hr 02/21/24 17:11: WBC 6.8, RBC 4.05 L, Hgb 11.1 L, Hct 35.5 L, MCV 87.7, MCH 27.4, MCHC 31.3 L, RDW Std Deviation 43.6, RDW Coeff of Kami 13.6, Plt Count 288, MPV 9.3, Immature Gran % (Auto) 0.100, Neut % (Auto) 58.5, Lymph % (Auto) 30.4, [place] % (Auto) 8.5, Eos % (Auto) 2.1, Baso % (Auto) 0.4, Absolute Neuts (auto) 4.0, Absolute Lymphs (auto) 2.07, Nucleated RBC % 0, ESR 63 H, Sodium 141, Potassium 3.7, Chloride 106, Carbon Dioxide 31.0, Anion Gap 4 L, BUN 13, Creatinine 0.66, Estim Creat Clear Calc 112.98, Est GFR (MDRD) Af Amer 117, Est GFR (MDRD) Non-Af 96, BUN/Creatinine Ratio 19.5, Glucose 95, Lactic Acid 1.0, Calcium 8.5, C-React Prot Ext Range 25.90 H Imaging Radiology Impression Ankle X-Ray 02/21/24 17:25 IMPRESSION: Findings which may be consistent with early changes of acute osteomyelitis of the posterior calcaneus. Would recommend clinical correlation and further assessment with MRI if indicated Electronically Signed: Tereso Lara MD at 17:55 EDT Reading Location ID and State: [address] [place] [address] Tel , Service support , Assessment & Plan Assessment/Plan (1) Diabetic infection of left foot: PLAN: Plan 48-year-old female with a history of type 2 diabetes, hypothyroidism, diabetic foot with osteomyelitis presents to the ED for management of a nonhealing postsurgical wound of her left ankle. She underwent left calcaneal tear repair on 01/26/2024 that is not healing. #Type 2 diabetes with diabetic foot ulcer, osteomyelitis -Podiatry already consulted, plan for washout tomorrow -Continue insulin aspart 10 units subcu 3 times daily -Nutrition consult -N.p.o. after midnight -Continue cefazolin 1 g every 8 hours #Diabetic neuropathy: Continue pregabalin #Hypertension -losartan 100 mg daily -Metoprolol succinate 200 mg daily # Hypothyroidism: Continue home thyroxine #GERD: Continue omeprazole 40 daily #Anxiety/depression: Paroxetine 40 mg daily # DVT prophylaxis: Enoxaparin 40 mg SQ
[2024-02-21] MEDS: Cefepime HCl 2 GM in 0.9% Normal Saline (100mL MB+) 100 ML IV (18:56)
[2024-02-21 19:00] VITALS: BP 134/58; PULSE 67; RESP 20; TEMP 37.1; O2SAT 96
[2024-02-21 19:24] VITALS: BP 131/68; PULSE 70; RESP 16; TEMP 37.1; O2SAT 97
[2024-02-21 19:59] VITALS: BMI 32.4
[2024-02-21 20:13] VITALS: BMI 32.4
[2024-02-21 20:20] VITALS: BP 127/70; PULSE 70; RESP 16; TEMP 36.1; O2SAT 96
[2024-02-21] MEDS: oxyCODONE 5 MG Tablet PO (20:35)
[2024-02-21] MEDS: Ondansetron ODT 4 MG Tablet PO (20:36)
[2024-02-21] MEDS: Pregabalin 75 MG Capsule 150 MG PO (21:53)
[2024-02-21] MEDS: Atorvastatin Calcium 80 MG Tablet PO (21:53)
[2024-02-21] MEDS: Cefazolin 1 GM/50 ML BAG IV (21:53)
[2024-02-21] MEDS: traZODone 100 MG Tablet 200 MG PO (21:53)
[2024-02-21] MEDS: Glucerna Shake 120 ML LIQUID PO (21:54)
[2024-02-21 22:30] LABS: Bedside Glucose 96 mg/dL (74-106)
[2024-02-22] VITALS (10 sets, daily range): BP systolic 108–160; BP diastolic 65–85; PULSE 64–74; RESP 14–18; TEMP 36.2–36.6; O2SAT 89–100
[2024-02-22 04:36] LABS: Bedside Glucose 141 mg/dL (74-106)
--- NOTE | 2024-02-22 05:00 | EKG12_ITS ---
Test Reason : AM EKG Blood Pressure : / mmHG Vent. Rate : 060 BPM Atrial Rate : 060 BPM P-R Int : 160 ms QRS Dur : 100 ms QT Int : 440 ms P-R-T Axes : 046 -07 023 degrees QTc Int : 440 ms Normal sinus rhythm Normal ECG When compared with ECG of 23-JAN-2024 13:18, No significant change was found Confirmed by Zack Rosenbaum [id number]), editor & co founder JG JUAREZ ([id number]) on 02/22/2024 9:50:01 AM Referred By: CATA Confirmed By:Zack Rosenbaum
[2024-02-22] MEDS: Levothyroxine 175 MCG Tablet PO (06:42)
[2024-02-22] MEDS: Cefazolin 1 GM/50 ML BAG IV ×3 (06:42→20:47)
[2024-02-22] MEDS: Pregabalin 75 MG Capsule 150 MG PO ×3 (06:42→22:13)
[2024-02-22 07:08] LABS: Bedside Glucose 96 mg/dL (74-106)
[2024-02-22 07:38] LABS: Absolute Lymphocyte Count 2.09 X10^3/uL (0.83-4.51); Absolute Neutrophil Count 2.9 X10^3/uL (2.0-7.7); Basophil# 0.03 X10^3/uL; Basophil% 0.5 % (0-1); Eosinophil# 0.15 X10^3/uL; Eosinophils% 2.6 % (0-5); Hematocrit 35.7 % (37-47); Hemoglobin 10.8 g/dL (12.0-15.0); Lymphocyte # 2.09 X10^3/ul (0.83-4.51); Lymphocyte % 36.2 % (19-41); Mean Corp Hgb Conc 30.3 g/dL (32-36); Mean Corpuscular Hgb 27.3 pg (27.0-32.0); Mean Corpuscular Volume 90.2 fL (81-99); Mean Platelet Vol. 9.1 fl (6.2-12.0); Monocyte% 10.4 % (0-10); NRBC Flagged by Analyzer 0 % (0-5); Neutrophil # 2.89 X10^3/uL (2.7-7.7); Platelet Count 238 K/mm3 (150-450); RBC Distribution Width CV 13.8 % (11.6-14.6); RBC Distribution Width SD 45.1 fl (35.1-43.9); Red Blood Count 3.96 M/mm3 (4.2-5.4); White Blood Count 5.8 K/mm3 (4.4-11.0)
--- NOTE | 2024-02-22 07:40 | PCM.PN.HOSP ---
Reason for Visit Reason for Visit: Diagnoses Type 2 diabetes mellitus with other skin complications (02/21/24) Local infection of the skin and subcutaneous tissue, unspecified (02/21/24) Subjective Subjective Has neuropathy so did not feel the injury when it initially occurred. Objective Data Objective Data Vital Signs: Vital Signs Temp Pulse Resp BP Pulse Ox O2 Del Method 36.4 C L 64 18 109/84 H 95 Room Air 02/22/24 03:29 02/22/24 03:29 02/22/24 03:29 02/22/24 03:29 02/22/24 03:29 02/22/24 03:29 Oxygen Delivery Method Room Air Weight: 96.9 kg Body Mass Index (BMI) 32.4 Intake & Output: Intake and Output for Last 24 Hours 02/20/24 02/21/24 02/22/24 23:59 23:59 23:59 Intake Total 150 / 650 550 / 550 Balance 150 / 650 550 / 550 Lab / Micro Data 02/22/24 07:17 02/22/24 07:17 Labs: Laboratory Results - last 24 hr 02/21/24 17:11: WBC 6.8, RBC 4.05 L, Hgb 11.1 L, Hct 35.5 L, MCV 87.7, MCH 27.4, MCHC 31.3 L, RDW Std Deviation 43.6, RDW Coeff of Kami 13.6, Plt Count 288, MPV 9.3, Immature Gran % (Auto) 0.100, Neut % (Auto) 58.5, Lymph % (Auto) 30.4, [place] % (Auto) 8.5, Eos % (Auto) 2.1, Baso % (Auto) 0.4, Absolute Neuts (auto) 4.0, Absolute Lymphs (auto) 2.07, Nucleated RBC % 0, ESR 63 H, Sodium 141, Potassium 3.7, Chloride 106, Carbon Dioxide 31.0, Anion Gap 4 L, BUN 13, Creatinine 0.66, Estim Creat Clear Calc 112.98, Est GFR (MDRD) Af Amer 117, Est GFR (MDRD) Non-Af 96, BUN/Creatinine Ratio 19.5, Glucose 95, Lactic Acid 1.0, Calcium 8.5, C-React Prot Ext Range 25.90 H 02/21/24 21:51: POC Glucose 96 02/22/24 04:18: POC Glucose 141 H 02/22/24 06:48: POC Glucose 96 02/22/24 07:17: WBC 5.8, RBC 3.96 L, Hgb 10.8 L, Hct 35.7 L, MCV 90.2, MCH 27.3, MCHC 30.3 L, RDW Std Deviation 45.1 H, RDW Coeff of Kami 13.8, Plt Count 238, MPV 9.1, Immature Gran % (Auto) 0.300, Neut % (Auto) 50.0, Lymph % (Auto) 36.2, [place] % (Auto) 10.4 H, Eos % (Auto) 2.6, Baso % (Auto) 0.5, Absolute Neuts (auto) 2.9, Absolute Lymphs (auto) 2.09, Nucleated RBC % 0 Radiography Diagnostic Testing: Radiology Impression Ankle X-Ray 02/21/24 17:25 IMPRESSION: Findings which may be consistent with early changes of acute osteomyelitis of the posterior calcaneus. Would recommend clinical correlation and further assessment with MRI if indicated Electronically Signed: Tereso Lara MD at 17:55 EDT Reading Location ID and State: [address] [place] [address] Tel , Service support , Physical Exam Const alert and no apparent distress HEENT head/scalp atraumatic and moist oral mucous membranes Resp normal respiratory effort, no retractions, no use of accessory muscles and clear to auscultation bilaterally Cardio regular rate, regular rhythm, S1 normal heart sound and S2 normal heart sound GI normal to inspection, nondistended, normoactive bowel sounds, soft to palpation and non-tender Extremity Extremity Narrative: left leg wrapped--did not remove. Neuro Sensorium / Orientation: awake and alert Psych affect normal Assessment & Plan Assessment/Plan (1) Diabetic infection of left foot: PLAN: Plan Left Calcaneal osteomyelitis noted on ankle xray. ESR 63 and CRP of 25.9. pt had repair of Achilles tendon tear left foot, tendo Achilles shortening/advancement left foot, flexor hallux longus tendon transfer left foot, debridement of Achilles tendon and tenosynovitis of the left foot on January 25. But a week or 2 prior to presentation here, she 7 something and had wound that developed and started bleeding. When she followed up with podiatry on the , she was directed to the emergency room. Received cefepime in the emergency room and cefazolin on the floor. Will add vancomycin to cover MRSA. Check wound culture Podiatry on consult and plan for washout today. Consult infectious disease for long-term IV antibiotic recommendations. Type 2 diabetes with diabetic foot ulcer Continue home insulin aspart 10 units subcu 3 times daily and glimepiride Not a basal insulin. A1c pending Chronic conditions: Diabetic neuropathy: Continue pregabalin Hypertension -losartan 100 mg daily-Metoprolol succinate 200 mg daily Hypothyroidism: levothyroxine GERD: Continue omeprazole 40 daily Anxiety/depression: Paroxetine 40 mg daily DVT prophylaxis: Enoxaparin 40 mg SQ Charges/Coding Visit Charges Inpatient E&M: [id number] [facility] Hosp L2
--- NOTE | 2024-02-22 08:19 | WOUNDNOTE ---
wound photo: left Achilles area
[2024-02-22] MEDS: Metoprolol(XL)Succ 200 MG Tablet PO (08:32)
[2024-02-22] MEDS: oxyCODONE 5 MG Tablet PO ×2 (08:32→20:47)
[2024-02-22] MEDS: Vancomycin HCl 2,000 MG in 0.9% Normal Saline (500mL Bag) 500 ML 250 MG IV (08:34)
[2024-02-22 08:37] LABS: ALB/GLOB Ratio 0.7 RATIO (0.9-2.4); AST(SGOT) 21 U/L (15-37); Alanine Aminotransfer ALT/SGPT 22 U/L (13-56); Alkaline Phosphatase 94 U/L (45-117); Anion Gap 7 (5-15); BUN 12 mg/dL (7-18); BUN/Creat Ratio 20.3 RATIO (10-20); Bilirubin, Direct 0.11 mg/dL (0.00-0.30); Calcium,Total 8.7 mg/dL (8.5-10.1); Chloride 103 mmol/L (98-107); Creatinine, Serum 0.59 mg/dL (0.55-1.02); EST Glomerular Filtration Rate 111 mL/min (>60); Est Glom Filt Rate - Afr Amer 134 mL/min (>60); Estimated Creatinine Clearance 124.96 ml/min; Globulin 4.3 g/dL (2.2-4.2); Glucose 126 mg/dL (74-106); Magnesium 2.2 mg/dL (1.6-2.6); Phosphorus 4.6 mg/dL (2.5-4.9); Potassium 3.8 mmol/L (3.5-5.1); Protein, Total 7.3 g/dL (6.4-8.2); Sodium Level 140 mmol/L (136-145); Thyroid Stim Hormone (TSH) 0.13 uIU/mL (0.358-3.74)
--- NOTE | 2024-02-22 08:45 | CASEMGMT ---
Discharge Planning A list of?SNF providers including quality and resource use data and consistent with the patient's preferred geographic region, medical needs, and insurance network was created in [employer] Guide.? This list was provided to the SW. Dorothy Kamara Discharge Planning Asst.
[2024-02-22 08:57] LABS: International Normalized Ratio 1.2
--- NOTE | 2024-02-22 09:28 | PCM.RX.CS ---
Consult Antibiotic Management Pharmacy has been consulted to manage selected antibiotic: Vancomycin Type of Intervention Type of Consult: New start Suspected Infection Suspected Infection: Other Prior Doses of Antibiotics Prior Doses of Antibiotics Received/Current Regimen: 02/22/24 @ 0834 2000MG GIVEN Labs Labs: Sodium 140 mmol/L (136-145) 02/22/24 07:17 Potassium 3.8 mmol/L (3.5-5.1) 02/22/24 07:17 Chloride 103 mmol/L (98-107) 02/22/24 07:17 Carbon Dioxide 30.0 mmol/L (21.0-32.0) 02/22/24 07:17 Anion Gap 7 (5-15) 02/22/24 07:17 BUN 12 mg/dL (7-18) 02/22/24 07:17 Creatinine 0.59 mg/dL (0.55-1.02) 02/22/24 07:17 Est GFR (MDRD) Af Amer 134 mL/min (>60) 02/22/24 07:17 Est GFR (MDRD) Non-Af 111 mL/min (>60) 02/22/24 07:17 BUN/Creatinine Ratio 20.3 RATIO (10-20) H 02/22/24 07:17 Glucose 126 mg/dL (74-106) H 02/22/24 07:17 Dosing Weight Weight used for dosin.9 kg Goal Trough Goal Trough: 15-20 mcg/mL Pharmacy Plan for Drug Dosing Pharmacy Plan for Drug Dosing: Start Vancomycin 1250mg every 8 hours on 02/22/24 @ 1630 Pharmacy Service will continue to monitor and adjust dosing as required. Follow-Up Labs Follow-Up Labs: Trough: Vancomycin Date/Time Labs Ordered Labs to be done on [date and time ordered]: 02/23/24 @ 0800
[2024-02-22 11:04] LABS: Bedside Glucose 102 mg/dL (74-106)
--- NOTE | 2024-02-22 11:23 | PCM.PRE.AN2 ---
ASA Classification* ASA Classification ASA Classification: 3 and E Assessment & Plan Anesthesia* Anesthesia Assessment Anesthesia Assessment: Discussed sedation and/or anesthesia options, risks, benefits, and alternatives with patient/parents/legal guardian/POA. Questions invited. The patient/parents/legal guardian/POA seems to understand and agrees to proceed with anesthesia plan. Reviewed the physical assessment, medical history, allergy history and patient home medications list prior to surgery/procedure/anesthetic and documented any changes. Performed airway and anesthesia risk assessments. Anesthesia Type Anesthesia Type: General Pre-Assessment Diagnosis/Proposed Procedure Planned Operative Procedure(s): 3 Anesthesia History Anesthesia History - sharepoint consultant: Anesthesia History - sharepoint consultant Hx Hospitalization No 01/19/24 15:07 Any Problems With Anesthesia No 02/21/24 20:13 Cholinesterase deficiency No 02/21/24 20:13 You/Your Family Experience No 02/21/24 20:13 fever (hyperthermia) with Relationship Recent Exposure to Contagious No 02/21/24 20:13 Disease Does patient have nerve No 02/21/24 20:13 stimulator Patient instructed to have No 02/21/24 20:13 device shut off --Does patient have Pacemaker No 02/21/24 20:13 or ICD? When Was Last Pacemaker Check QUESTION #4 FULL TEXT: You/Your Family Experience fever (hyperthermia) with Anesthesia Last Oral Intake Last Oral intake: Last Oral Intake NPO since 00:00 02/21/24 20:13 Meds taken in AM with sips of water? Meds patient instructed to take am of surgery PONV PONV - sharepoint consultant: PONV - sharepoint consultant Female HX of Motion Sickness HX of N/V After Surgery Non-Smoker Duration of Surgery greater than 60 minutes Number of Risk Factors PONV Score Height & Weight Height & Weight: Anesthesia: Height & Weight Height 5 ft 8 in 02/21/24 20:13 Weight: 96.9 kg 02/21/24 20:13 Body Mass Index (BMI) 32.4 02/21/24 20:13 Respiratory Assessment Respiratory Assessment - sharepoint consultant: Respiratory Tract Infection Hx - sharepoint consultant Hx Respiratory Tract Infection No 02/21/24 20:13 STOP Sleep Apnea STOP Sleep Apnea - sharepoint consultant: STOP Sleep Apnea - sharepoint consultant Hx Hypertension Yes: CONTROLLED WITH MEDS 02/21/24 19:59 Hx Sleep Apnea Yes 02/21/24 19:59 CPAP Yes: NONCOMPLIANT 02/21/24 19:59 BIPAP No 02/21/24 19:59 Do you snore loudly (louder than talking or can be heard Do you often feel tired/ fatigued/ sleepy during daytime? Has anyone observed you stop breathing during sleep? STOP Results Positive 02/21/24 19:59 QUESTION #5 FULL TEXT : Do you snore loudly (louder than talking or can be heard through closed doors)? 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 Specify any problems Hx of Preganancy in last 3 No 02/21/24 19:59 Months Nurse Filling Out Transfusion TMELLOR 02/21/24 19:59 & Questions: Date: 02/21/24 02/21/24 19:59 Time: 20:02 02/21/24 19:59 Patient unable to answer at this time (ie. confused, unrespo /Reproduction History /Reproductive History - sharepoint consultant: /Reproductive Hx- sharepoint consultant Hx Now No: post menopause 02/21/24 20:13 Gestational Age (in weeks): EDC: Hx Hx Para Hx Section SAB No 01/19/24 15:07 Active Medications Active Medications: Current Medications Generic Name Dose Route Start Last Admin Trade Name Freq PRN Reason Stop Dose Admin Albuterol Sulfate 2.5 mg 02/21/24 19:56 Albuterol 2.5 Mg/3 Ml Vial.Neb. INHALATION Q6H PRN PRN shortness of breath or wheezing Aspirin 81 mg 02/22/24 08:00 02/22/24 08:27 Aspirin E.C. 81 Mg [facility]t [facility] Atorvastatin Calcium 80 mg 02/21/24 22:00 02/21/24 21:53 Atorvastatin Calcium 80 Mg Tablet PO 80 mg QHS RUTH Administration Dextrose 0 gm 02/21/24 19:50 Dextrose 50%-Water 25 Gm/50 Ml Disp.Syrin IV X1 PRN Hypoglycemia Protocol Enoxaparin Sodium 40 mg 02/22/24 10:00 02/22/24 08:27 Enoxaparin 40 Mg/0.4 Ml Syringe SC Not Given DAILY RUTH Glucagon 1 mg 02/21/24 19:50 Glucagon 1 Mg/Ml Syringe IM X1 PRN Hypoglycemia Cefazolin Sodium 1 gm in 50 mls @ 100 mls/hr 02/21/24 22:00 02/22/24 07:23 IV Infused Q8 RUTH Infusion Sodium Chloride 250 mls @ 15 mls/hr 02/21/24 19:56 IV .[id number] PRN Additional IVPB Infusion Sodium Chloride 250 mls @ 15 mls/hr 02/21/24 19:56 IV .[id number] PRN Saline Flush Vancomycin IV-PHARMACY TO DOSE 500 mls @ 250 mls/hr 02/22/24 07:47 1 each/ Sodium Chloride IV X1 PRN Rx to Dose Protocol Vancomycin HCl 1,250 mg/ 275 mls @ 167 mls/hr 02/22/24 16:30 Sodium Chloride IV Q8H [facility] Insulin Human Lispro 10 unit 02/22/24 08:00 02/22/24 10:45 Insulin Lispro 100 Unit/Ml Insuln.Pen SC Not Given 0800,1200,1700 [facility] Insulin Human Lispro 0 unit 02/21/24 22:00 02/22/24 10:44 Insulin Lispro 100 Unit/Ml Insuln.Pen SC Not Given ACHS & 3AM [facility] Protocol Levothyroxine Sodium 175 mcg 02/22/24 06:00 02/22/24 06:42 Levothyroxine 175 Mcg Tablet PO 175 mcg 0600 RUTH Administration Losartan Potassium 100 mg 02/22/24 10:00 02/22/24 08:28 Losartan Potassium 100 Mg Tablet PO Not Given DAILY RUTH Protocol Metoprolol Succinate 200 mg 02/22/24 10:00 02/22/24 08:32 Metoprolol(Xl)Succ 200 Mg Tablet PO 200 mg DAILY RUTH Administration Protocol Nutritional Formula (Lactose Free) 120 ml 02/21/24 22:00 02/22/24 08:27 Glucerna Shake 120 Ml Liquid PO Not Given 4X/DAY [facility] Ondansetron HCl 4 mg 02/21/24 22:00 02/21/24 20:36 Ondansetron Odt 4 Mg Tablet PO 4 mg Q8 PRN Administration NAUSEA/VOMITING Oxycodone HCl 5 mg 02/21/24 19:59 02/22/24 08:32 Oxycodone 5 Mg Tablet PO 5 mg Q8H PRN Administration PAIN 1-10 Pantoprazole Sodium 40 mg 02/22/24 10:00 02/22/24 08:28 Pantoprazole Sodium 40 Mg Tablet PO Not Given DAILY RUTH Paroxetine HCl 40 mg 02/22/24 10:00 02/22/24 08:28 Paroxetine 20 Mg Tablet PO Not Given DAILY RUTH Pregabalin 150 mg 02/21/24 22:00 02/22/24 06:42 Pregabalin 75 Mg Capsule PO 150 mg TID RUTH Administration Sodium Chloride 10 - 40 ml 02/21/24 19:56 0.9% Saline Lock 10 Ml Syringe IV UD PRN SALINE FLUSH Sodium Hypochlorite 1 applic 02/22/24 10:00 02/22/24 09:23 Dakin's Kelsea Half Strength (=0.25%) TOPICAL Not Given DAILY [facility] Protocol Trazodone HCl 200 mg 02/21/24 22:00 02/21/24 21:53 Trazodone 100 Mg Tablet PO 200 mg QHS RUTH Administration Vancomycin Protocol 1 lab 02/23/24 06:00 Vancomycin Trough/Random Due MC 02/23/24 10:00 DAILY [facility] Anesthesia Focused Assessment* Temperature: 97.8 F Pulse Rate: 65 Blood Pressure: 108/65 Respiratory Rate: 18 Pulse Ox: 99 Airway Assessment Mouth opens: >3 cm Mallampati Score: I Focused Labs Anesthesia Preop lab: CBC WBC 5.8 K/mm3 (4.4-11.0) 02/22/24 07:17 RBC 3.96 M/mm3 (4.2-5.4) L 02/22/24 07:17 Hgb 10.8 g/dL (12.0-15.0) L 02/22/24 07:17 Hct 35.7 % (37-47) L 02/22/24 07:17 Plt Count 238 K/mm3 (150-450) 02/22/24 07:17 CHEMISTRY Potassium 3.8 mmol/L (3.5-5.1) 02/22/24 07:17 Sodium 140 mmol/L (136-145) 02/22/24 07:17 Magnesium 2.2 mg/dL (1.6-2.6) 02/22/24 07:17 Phosphorus 4.6 mg/dL (2.5-4.9) 02/22/24 07:17 BUN 12 mg/dL (7-18) 02/22/24 07:17 Creatinine 0.59 mg/dL (0.55-1.02) 02/22/24 07:17 Glucose 126 mg/dL (74-106) H 02/22/24 07:17 TSH 0.13 uIU/mL (0.358-3.74) L 02/22/24 07:17 COAG PT 15.0 SECONDS (11.7-14.9) H 02/22/24 07:17 Review of Systems (Anesthesia) ROS Narrative System reviewed and no additional complaints, except as documented. [facility] Medical History Current use of insulin Post-menopausal Hiatal hernia Back pain due to injury Osteoporosis Sleep apnea Insulin dependent diabetes mellitus Easy bruising Restless legs Difficulty swallowing Tachycardia Smoker Wears dentures Wears glasses Anxiety Iron deficiency Back pain Dietary restriction GERD (gastroesophageal reflux disease) Shortness of breath Asthma CPAP (continuous positive airway pressure) dependence Leg cramping History of pain when walking Edema Cardiology follow-up encounter History of stress test Normal echocardiogram Hypertension Difficulty balancing when standing Asthma Arthritis Fibromyalgia Multinodular thyroid Hypothyroidism Essential (primary) hypertension Hypergammaglobulinemia Hyperlipemia Dermatitis Depression PAD (peripheral artery disease) Other specified peripheral vascular diseases Hammertoe of left foot Skin ulcer of right foot including toes with fat layer exposed Osteomyelitis of toe Morbid obesity with BMI of 40.0-44.9, adult Diabetes type 2, uncontrolled Venous stasis dermatitis of both lower extremities Home Medications ?Medication ?Instructions ?Recorded ?Last Taken ?Type omeprazole 40 mg capsule,delayed 40 mg PO DAILY ACID REFLUX 10/18/18 01/25/24 History release paroxetine HCl 40 mg tablet 40 mg PO DAILY DEPRESSION 10/29/19 02/28/23 History pregabalin 150 mg capsule 150 mg PO TID NERVE PAIN 10/29/19 02/28/23 History aspirin 81 mg tablet,delayed 81 mg PO DAILY HEART HEALTH 07/21/20 01/24/24 History release (Adult Low Dose Aspirin) metoprolol succinate 200 mg 200 mg PO DAILY BLOOD PRESSURE 07/21/20 01/25/24 07:00 History tablet,extended release 24 hr rosuvastatin 40 mg tablet (Crestor) 40 mg PO DAILY CHOLESTEROL 08/26/22 02/28/23 History pen needle, diabetic 32 gauge x #100 ea 02/13/23 Unknown Rx (BD Ultra-Fine Catalina Pen Needle) dapagliflozin propanediol 10 mg 10 mg PO DAILY DIABETES 03/01/23 02/28/23 History tablet (Farxiga) losartan 100 mg tablet 100 mg PO DAILY BLOOD PRESSURE 03/01/23 01/25/24 History blood sugar diagnostic (True #100 ea 03/24/23 Unknown Rx Metrix Glucose Test Strip) glimepiride 4 mg tablet 4 mg PO DAILY #30 tabs 04/10/23 Unknown Rx insulin aspart 10 unit subcut TID #9 mL 05/29/23 Unknown Rx (niacinamide)(U-100) 100 unit/mL(3 mL) subcutaneous pen (Fiasp FlexTouch U-100 Insulin) albuterol sulfate 90 mcg/actuation 1 puff inhalation Q6H PRN PRN 01/19/24 01/26/24 10:00 History aerosol inhaler shortness of breath or wheezing tirzepatide 7.5 mg/0.5 mL 7.5 mg subcut QWEEK 01/19/24 01/15/24 History subcutaneous pen injector (Mounjaro) oxycodone-acetaminophen 5 mg-325 1 tab PO Q8H PRN pain 7 days #28 01/26/24 Unknown Rx mg tablet tabs celecoxib 200 mg capsule 200 mg PO DAILY 02/21/24 Unknown History doxepin 25 mg capsule 25 mg PO QHS 02/21/24 Unknown History levothyroxine 150 mcg tablet 150 mcg PO DAILY 02/21/24 Unknown History montelukast 10 mg tablet 10 mg PO DAILY 02/21/24 Unknown History ondansetron 4 mg disintegrating 4 mg PO Q8H PRN nausea and vomiting 02/21/24 Unknown History tablet potassium chloride 20 mEq 20 meq PO DAILY 02/21/24 Unknown History tablet,extended release(part/cryst) (Klor-Con M) trazodone 150 mg tablet 150 mg PO QHS 02/21/24 Unknown History Allergy/AdvReac Type Severity Reaction Status Date / Time piperacillin (From Zosyn) Allergy Severe Anaphylaxis Verified 02/21/24 16:47 tazobactam (From Zosyn) Allergy Severe Anaphylaxis Verified 02/21/24 16:47 sulfamethoxazole (From Allergy Unknown Anaphylaxis Verified 02/21/24 16:47 Bactrim) trimethoprim (From Bactrim) Allergy Unknown Anaphylaxis Verified 02/21/24 16:47 latex Allergy Rash Verified 02/21/24 16:47 pyrethrins Allergy Anaphylaxis Verified 02/21/24 16:47 tetanus and diphtheria Allergy Anaphylaxis Verified 02/21/24 16:47 toxoids (Tetanus&Diphtheria Toxoid) Family History Mother Diabetes Dementia Father Diabetes Myocardial infarction Surgical History Hx of toe surgery History of partial ray amputation of fifth toe of right foot Hx of total knee arthroplasty History of nasal septoplasty History of cholecystectomy History of thyroidectomy H/O arthroscopic knee surgery (11/2019) H/O amputation of lesser toe (05/05/17) Social History household members: none Smoking Status: Current every day smoker tobacco type: cigarettes alcohol intake: current alcohol intake frequency: holidays/special occasions only substance use type: does not use
--- NOTE | 2024-02-22 13:45 | PCM.POST.ANE ---
Anesthesia: Postop Eval I Current Vital Signs Temperature: 97.1 F Pulse Rate: 74 Blood Pressure: 141/69 Respiratory Rate: 16 Pulse Ox: 97 Oxygen Delivery Method: Room Air Assessment Airway patent: Yes Spontaneous unlabored respirations: Yes Mental status: Awake and Calm nausea: No Vomiting: No Anesthesia Complication: No Fluid Hydration Crystalloid volume administer (ml): 1,000 Total IV fluid infused: 1,000 Progress Note Anesthesia document: Postop Eval 1 completed: Yes
--- NOTE | 2024-02-22 13:59 | OP.PCM_ITS ---
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 Nonpressure ulceration posterior left lower extremity to the level of the Achilles tendon 2. Surgical dehiscence left lower extremity 3. DM foot infection/cellulitis left lower extremity 4. DM type II with peripheral polyneuropathy Post-Operative Diagnosis: 1. Nonpressure ulceration posterior left lower extremity to the level of the Achilles tendon 2. Surgical dehiscence left lower extremity 3. DM foot infection/cellulitis left lower extremity 4. DM type II with peripheral polyneuropathy Surgery/Procedure Performed:: 1. I&D left lower extremity 2. Debridement of ulceration and necrotic tissue to the level of the Achilles tendon/musculotendinous junction left lower extremity 3. Application of advanced wound care product left lower extremity 4. Application of wound VAC left lower extremity Description of Surgical Findings:: See operative note for findings Surgeon: Zack Smith game developer: None Type of Anesthesia: General/Regional (Popliteal block left lower extremity by anesthesia team) Anesthesiologist: Pérez Angelo Specimen's removed: Necrotic Tissue Left Leg Drains: None Estimated Blood Loss (mL): < 2mL Description of Procedure: HPI/indication: Patient is a 58-year-old female who underwent surgical repair of a partial torn Achilles tendon that resulted in calcaneal gait and ulceration to the plantar aspect of the left heel on 01/26/2024. Patient missed first postoperative appointment and was seen for her first postoperative visit 2 weeks following surgery secondary to difficulty with transportation. During this time sutures were intact and surgical site appeared healthy without signs of infection. Patient then again missed the following weeks postoperative appointment and again reported 2 weeks following her last appointment. During this visit on 02/21/2024 she reports that she did place weight to the foot and did feel a tear in the posterior aspect of the leg and noted significant amounts of serosanguineous drainage and strikethrough through the dressing but did not call office or seek treatment. Upon removal of the dressings there was significant serosanguineous strikethrough to the dressings and dehiscence of the surgical site with significant desquamation of the skin with exposure of the Achilles tendon and surgical sutures. It is noted at this time Achilles tendon is intact with no signs of tearing. Inspection of the tissue demonstrates significant tissue necrosis and fibrous tissue along the wound margins and throughout the wound bed with no purulent drainage noted. There is localized erythema that is consistent with localized cellulitis versus irritation secondary to significant drainage. She was sent to the ED for admittance and starting of IV antibiotics Vanco/cefepime. I have discussed needing to perform an I&D in addition to washout with debridement of all necrotic tissue to the level of the Achilles tendon, application of advanced wound product, and application of wound VAC to the left lower extremity. I reminded the patient of our previous discussion and discussed with the patient her high risk of left lower extremity amputation. Patient voices understanding of our discussion and her current situation. Discussed risks and benefits of the procedure in detail and discussed that the risks include but are not limited to the following: Pain, continued pain, neuritis/numbness, complex regional pain syndrome, deformity, continued deformity, scar tissue, poor cosmetic result, infection, inability to wear shoe gear, contracture, difficulty with ambulation, rerupture of the Achilles tendon, need for further surgical procedures/debridement, blood clot, stroke, heart attack, addiction to pain medication, loss of function, loss of limb, loss of life. Patient was able to voice understanding of these and able to repeat these back. Patient understands that this is not an elective procedure but a limb salvage procedure. Patient acknowledges this and wishes to proceed forward with surgical intervention. She was scheduled for I&D with debridement of the necrotic tissue left lower extremity/Achilles tendon with application of advanced wound care product and application of wound VAC left lower extremity at [facility] on 02/22/2024. Procedure: Prior to surgical intervention patient did receive popliteal block by anesthesia team in PACU. Under mild sedation patient was then brought into the operating room and underwent induction of general anesthesia. Following induction of general anesthesia patient was transferred to the operative table in the prone position with all prominences well-padded. Patient was then secured to table with safety belt. Left lower extremity was then scrubbed, prepped, and draped in the usual aseptic manner. No tourniquet was applied. At this time attention was directed to the posterior aspect of the left lower extremity where there is an ulceration noted measuring 9.8 cm x 3.4 cm x 0.5 cm with fibrous tissue in the wound base and exposed Achilles tendon with surgical sutures intact and exposed. No purulent drainage is noted throughout the duration of this case. Utilizing #15 blade all necrotic tissue was then debrided about the wound margin to the level of the Achilles tendon/musculocutaneous junction. Debridement consisted of removal of all nonviable tissue, necrotic tissue, fibrous tissue, biofilm, and slough. Following debridement healthy bleeding tissue was noted. Some segments of the Achilles tendon were also debrided to healthy viable appearing tendon with care taken not to disrupt the surgical sutures maintaining repair of her previous acute Achilles tendon rupture. Next, site was flushed with copious amounts normal sterile saline. Further debridement was then performed to the level of the muscle utilizing curettage, rongeur, and #15 blade to healthy bleeding viable tissue. Next, site was copiously irrigated with 3000 cc pulse lavage and following irrigation healthy tissue was noted with no evidence of necrotic tissue remaining. Postoperative debridement measurement noted to be 10.0 cm x 3.5 cm x 1.0 cm application of advanced wound care product, axiofill 500cc was applied to the about wound and wound base. Posterior aspect of the heel was dressed with Adaptic and anchored with Steri-Strips. Wound VAC was then applied overlying the posterior aspect of the Achilles tendon/ulceration. The wound VAC was then turned on to setting of 125mmgH of continuous pressure with no leaks detected. Site was then dressed with 4 x 4 gauze and Kerlix. Patient tolerated the procedure and anesthesia well was transported the PACU vital signs stable vascular status intact to the left foot. Following anesthesia protocol she will be returned to the medical surgical floor and continue to receive IV antibiotics. Wound VAC will stay intact to the left lower extremity with expected wound VAC change on 02/26/2024. I will continue to follow while in house. Grafts/Implants Used: Axiofill Advanced wound product Complications None Admit VTE Documentation VTE Present on Admission: No VTE Mechan Device Prophylaxis: SCD's VTE Pharm Prophylaxis ordered?: Yes
--- NOTE | 2024-02-22 14:20 | POSTOPAN2_ITS ---
Anesthesia Postop Eval I Sum Postop Eval Completion status Anesthesia document: Postop Eval 1 completed: Yes Anesthesia Postop Eval I Summary Anesthesia Postop Eval I Summary: Anesthesia Postop Eval I: Assessment Summary Airway patent Yes 02/22/24 13:46 AUTO RADIO [email or web address] Spontaneous unlabored Yes 02/22/24 13:46 AUTO RADIO MECHANIC.TANVIR respirations Mental status Awake,Calm 02/22/24 13:46 AUTO RADIO MECHANIC.[email or web address] nausea No 02/22/24 13:46 AUTO RADIO MECHANIC.ILIROBAnita Vomiting No 02/22/24 13:46 AUTO RADIO MECHANIC.ILIROBAnita Anesthesia Postop Eval I: Fluid Summary Crystalloid volume administer 1,000 02/22/24 13:46 AUTO RADIO MECHANIC.ILIROBY (ml) Colloids volume administered ( ml) Blood Product volume administered (ml) Total IV fluid infused 1,000 02/22/24 13:46 AUTO RADIO MECHANIC.TANVIR Anesthesia Postop Eval I: Summary Notes Anesthesia Complication No 02/22/24 13:46 AUTO RADIO MECHANIC.TANVIR Anesthesia Complication Comment: Post-operative progress note Anesthesia: Postop Eval II Evaluation Mental status: Awake Pain Level: 0 nausea: No Vomiting: No Complications Anesthesia Complication: No
--- NOTE | 2024-02-22 14:20 | PCM.POSTANE2 ---
Anesthesia Postop Eval I Sum Postop Eval Completion status Anesthesia document: Postop Eval 1 completed: Yes Anesthesia Postop Eval I Summary Anesthesia Postop Eval I Summary: Anesthesia Postop Eval I: Assessment Summary Airway patent Yes 02/22/24 13:46 HEEL ATTACHER [email or web address].[email or web address] Spontaneous unlabored Yes 02/22/24 13:46 HEEL ATTACHER WOOD.[email or web address] respirations Mental status Awake,Calm 02/22/24 13:46 HEEL ATTACHER WOOD.[email or web address] nausea No 02/22/24 13:46 HEEL ATTACHER WOOD.ILIROBAnita Vomiting No 02/22/24 13:46 HEEL ATTACHER WOOD.ILIROBAnita Anesthesia Postop Eval I: Fluid Summary Crystalloid volume administer 1,000 02/22/24 13:46 HEEL ATTACHER WOOD.ILIROBY (ml) Colloids volume administered ( ml) Blood Product volume administered (ml) Total IV fluid infused 1,000 02/22/24 13:46 HEEL ATTACHER WOOD.[email or web address] Anesthesia Postop Eval I: Summary Notes Anesthesia Complication No 02/22/24 13:46 HEEL ATTACHER WOOD.[email or web address] Anesthesia Complication Comment: Post-operative progress note Anesthesia: Postop Eval II Evaluation Mental status: Awake Pain Level: 0 nausea: No Vomiting: No Complications Anesthesia Complication: No
[2024-02-22] MEDS: 0.9% Normal Saline (250mL Bag) 250 ML 15 ML IV (14:27)
--- NOTE | 2024-02-22 14:40 | CASEMGMT ---
SID MENON Assessment: Face to Face with pt for initial transition planning/care coordination assessment. RN SINAN introduced self and role at [facility], pt voices understanding and consents to assessment. Pt sitting up in bed in no distress. Pt is A&O x4 and answers all questions appropriately at this time. Care providers, pharmacy, and demographics verified/updated. Admitting Dx: eGrtrudis ancelmo osteomyelitis PCP: Sharath Specialists: Dr. Knight - pain management Preferred Pharmacy: [facility] Insurance: [employer] [facility] [place] Prescription Benefit: yes LNOK: Bambi - dtr Living Arrangements: Pt lives alone in a 1 story apt. States was I with ADLs and IADLs unti a few weeks ago when needed some asssistance with IADLs from dtr. Transportation: Pt drives self and denies concerns with transportation. Daughter has been driving her the past few weeks, and is able to assist upon dc. DME: raised toilet, cane, walker, wheelchair, shower bench, grab bars HHC/SNF: Previously on TCU and used [facility]. Pt states her goal is to dc home but agreeable to SNF if recommended. Pt currenlty on Oxygen at post-op, but states does not use O2 at home. Provided verbal list of local providers to pt. if O2 is needed at DC, pt would like to use [facility]. Will follow therapy eval and recommendations. Notified SW. Pt states no further concerns/needs. CM to follow. Advised pt to ask CM if any further question/concerns/needs arise, voices understanding. Pt Goal: Home Plan: TBD, will follow therapy for recommendation. Ad LAU CM
--- NOTE | 2024-02-22 14:44 | CHAPLAIN ---
Type of Pastoral Visit ___ Initial Visit ___ Follow-up Visit ___ On-call Visit ___ General Patient Visit ___ Spiritual Assessment ___ Family Conference ___ Bereavement ___ Rapid Response ___ Code Blue ___ Other (describe below) Pastoral Care Referral From ___ Patient ___ Family ___ Nurse ___ Physician ___ Preventive Maintenance Coordinator ___ Screw Down ___ Other (describe below) Sacrament/Intervention ___ Active listening ___ Anointing ___ Episcopalian ___ Bereavement ___ Communion ___ Anamaria exploration ___ ___ Life review ___ Prayer ___ Reconciliation ___ Sacrament of Sick ___ Supportive presence ___ Wedding ___ Other (describe below) Pastoral Comments patient and bed are out of the room; calling card is left
--- NOTE | 2024-02-22 15:11 | CASEMGMT ---
Social Work SW met w/pt in room in regard to discharge plan. Pt had told CM that she wants to go home if she can, but if needed she would be open to SNF, has been to TCU before. SW spoke w/pt again about the SNF option at discharge, provided SNF list to her. Pt states if she were to need SNF again would want TCU. SW/CM will continue to follow, will follow up w/pt after PT/OT tomorrow to see what would be the best plan. SOCORRO Cano
[2024-02-22 15:41] LABS: Hemoglobin A1c 6.2 % (3.8-5.6)
[2024-02-22] MEDS: Vancomycin HCl 1,250 MG in 0.9% Normal Saline (250mL Bag) 250 ML 167 MG IV (16:41)
[2024-02-22 17:08] LABS: Bedside Glucose 127 mg/dL (74-106)
--- NOTE | 2024-02-22 19:01 | CON.PCM_ITS ---
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 There is fibrous tissue, nonviable tissue, necrotic tissue, biofilm, and slough of the wound site with necrosis/crust of the tissue margins at the lateral aspect. No purulent drainage, no palpable fluctuance/bogginess. There is localized erythema about the wound margin consistent with localized cellulitis versus tissue irritation secondary to drainage. Achilles tendon is visible and appears intact distally with sutures exposed. WBC 6.8, Hgb 11.1, Hct 35.5, platelet 288, HgbA1c 6.2% on 02/21/24. Patient was empirically started on Vanco/cefepime due to PCN allergy. Dakin's wet to dry dressing was applied to the lower extremity. Patient is to remain nonweightbearing to the left lower extremity with the assistance of walker/wheelchair She is to elevate the left lower extremity at all times of rest and is to not have pressure against the posterior aspect of the lower left extremity/Achilles tendon area Medicine currently following for medical management, they are greatly appreciated Infectious disease following for IV antibiotic guidance Wound nurse following for assistance in dressing changes, she is greatly appreciated. Discussed with patient need to go to the OR for debridement of the Achilles tendon on the left lower extremity with washout, application of Seaman wound care product, and wound VAC application. Patient scheduled for surgical intervention 02/22/2024 at 12 PM Podiatry will continue to follow while in house Jr. Kathryn BustosP.M[facility] [phone] HPI Consult Data Date of Consult: 02/22/24 HPI Narrative Reason for Consultation: Left lower extremity surgical dehiscence w/ exposure of the Achilles tendon HPI Narrative: REMI TREVINO, is a 58 F who presents to [facility] evening of 02/21/2024 for a left lower extremity ulceration with exposure of her Achilles tendon. She has PMHx of DM type II with peripheral polyneuropathy, HTN, HLD, PAD, previous amputations of multiple digits, chronic venous insufficiency, nicotine dependence, GERD. Patient had previously undergone surgical intervention for repair of torn Achilles tendon with tendo Achilles shortening and FHL tendon transfer on 01/26/2024. Patient had missed her first postoperative appointment but did come to the second appointment and noted to be healing well at that time with intact sutures to the posterior aspect of the lower extremity. She states she had remained nonweightbearing at that time with the assistance of a knee scooter in addition to a wheelchair. Patient then missed her third postoperative appointment in office with me last week and reports sometime since then and being seen in office on 02/21/2024 that she had placed weight to the foot and felt a tear in the back of her leg and increased drainage and seeping. Patient states that she had not seen the leg since this happened and reports sitting in the wet dressings until her follow-up. Patient did not call office to report this incident. Upon arrival for postoperative appointment on 02/21/2024 dressings were removed and noted to have significant serosanguineous strikethrough and drainage to the dressing and upon examination of the surgical site there is noted dehiscence of the surgical incision in addition to significant desquamation of the skin overlying the Achilles tendon with exposure of the Achilles tendon and surgical sutures. Due to concern for infection patient was instructed to go to the ED at that time for admittance and receiving of IV antibiotics and debridement of the site with washout. Patient was consulted to podiatry for continued care of the postsurgical dehiscence and ulceration of the left lower extremity. [facility] Medical History Current use of insulin Post-menopausal Hiatal hernia Back pain due to injury Osteoporosis Sleep apnea Insulin dependent diabetes mellitus Easy bruising Restless legs Difficulty swallowing Tachycardia Smoker Wears dentures Wears glasses Anxiety Iron deficiency Back pain Dietary restriction GERD (gastroesophageal reflux disease) Shortness of breath Asthma CPAP (continuous positive airway pressure) dependence Leg cramping History of pain when walking Edema Cardiology follow-up encounter History of stress test Normal echocardiogram Hypertension Difficulty balancing when standing Asthma Arthritis Fibromyalgia Multinodular thyroid Hypothyroidism Essential (primary) hypertension Hypergammaglobulinemia Hyperlipemia Dermatitis Depression PAD (peripheral artery disease) Other specified peripheral vascular diseases Hammertoe of left foot Skin ulcer of right foot including toes with fat layer exposed Osteomyelitis of toe Morbid obesity with BMI of 40.0-44.9, adult Diabetes type 2, uncontrolled Venous stasis dermatitis of both lower extremities Home Medications ?Medication ?Instructions ?Recorded ?Last Taken ?Type omeprazole 40 mg capsule,delayed 40 mg PO DAILY ACID REFLUX 10/18/18 01/25/24 History release paroxetine HCl 40 mg tablet 40 mg PO DAILY DEPRESSION 10/29/19 02/28/23 History pregabalin 150 mg capsule 150 mg PO TID NERVE PAIN 10/29/19 02/28/23 History aspirin 81 mg tablet,delayed 81 mg PO DAILY HEART HEALTH 07/21/20 01/24/24 History release (Adult Low Dose Aspirin) metoprolol succinate 200 mg 200 mg PO DAILY BLOOD PRESSURE 07/21/20 01/25/24 07:00 History tablet,extended release 24 hr rosuvastatin 40 mg tablet (Crestor) 40 mg PO DAILY CHOLESTEROL 08/26/22 02/28/23 History pen needle, diabetic 32 gauge x #100 ea 02/13/23 Unknown Rx (BD Ultra-Fine Catalina Pen Needle) dapagliflozin propanediol 10 mg 10 mg PO DAILY DIABETES 03/01/23 02/28/23 History tablet (Farxiga) losartan 100 mg tablet 100 mg PO DAILY BLOOD PRESSURE 03/01/23 01/25/24 History blood sugar diagnostic (True #100 ea 03/24/23 Unknown Rx Metrix Glucose Test Strip) glimepiride 4 mg tablet 4 mg PO DAILY #30 tabs 04/10/23 Unknown Rx insulin aspart 10 unit subcut TID #9 mL 05/29/23 Unknown Rx (niacinamide)(U-100) 100 unit/mL(3 mL) subcutaneous pen (Fiasp FlexTouch U-100 Insulin) albuterol sulfate 90 mcg/actuation 1 puff inhalation Q6H PRN PRN 01/19/24 01/26/24 10:00 History aerosol inhaler shortness of breath or wheezing tirzepatide 7.5 mg/0.5 mL 7.5 mg subcut QWEEK 01/19/24 01/15/24 History subcutaneous pen injector (Rex) oxycodone-acetaminophen 5 mg-325 1 tab PO Q8H PRN pain 7 days #28 01/26/24 Unknown Rx mg tablet tabs celecoxib 200 mg capsule 200 mg PO DAILY 02/21/24 Unknown History doxepin 25 mg capsule 25 mg PO QHS 02/21/24 Unknown History levothyroxine 150 mcg tablet 150 mcg PO DAILY 02/21/24 Unknown History montelukast 10 mg tablet 10 mg PO DAILY 02/21/24 Unknown History ondansetron 4 mg disintegrating 4 mg PO Q8H PRN nausea and vomiting 02/21/24 Unknown History tablet potassium chloride 20 mEq 20 meq PO DAILY 02/21/24 Unknown History tablet,extended release(part/cryst) (Klor-Con M) trazodone 150 mg tablet 150 mg PO QHS 02/21/24 Unknown History Allergy/AdvReac Type Severity Reaction Status Date / Time piperacillin (From Zosyn) Allergy Severe Anaphylaxis Verified 02/21/24 16:47 tazobactam (From Zosyn) Allergy Severe Anaphylaxis Verified 02/21/24 16:47 sulfamethoxazole (From Allergy Unknown Anaphylaxis Verified 02/21/24 16:47 Bactrim) trimethoprim (From Bactrim) Allergy Unknown Anaphylaxis Verified 02/21/24 16:47 latex Allergy Rash Verified 02/21/24 16:47 pyrethrins Allergy Anaphylaxis Verified 02/21/24 16:47 tetanus and diphtheria Allergy Anaphylaxis Verified 02/21/24 16:47 toxoids (Tetanus&Diphtheria Toxoid) Family History Mother Diabetes Dementia Father Diabetes Myocardial infarction Surgical History Hx of toe surgery History of partial ray amputation of fifth toe of right foot Hx of total knee arthroplasty History of nasal septoplasty History of cholecystectomy History of thyroidectomy H/O arthroscopic knee surgery (11/2019) H/O amputation of lesser toe (05/05/17) Social History household members: none Smoking Status: Current every day smoker tobacco type: cigarettes alcohol intake: current alcohol intake frequency: holidays/special occasions only substance use type: does not use ROS Constitutional Constitutional: Reports malaise and night sweats; Denies chills or fatigue Eyes Eyes: Denies diplopia or loss of vision ENT HEENT: Denies dysphagia, nasal congestion or sore throat Cardiovascular Cardiovascular: Denies chest pain, claudication or palpitations Respiratory/Chest Respiratory/Chest: Denies cough, dyspnea or shortness of breath at rest Gastrointestinal Gastrointestinal: Denies abdominal pain, constipation, diarrhea, nausea or vomiting Genitourinary Genitourinary: Denies dysuria, hematuria or urinary urgency Musculoskeletal Musculoskeletal: Denies joint pain, joint stiffness or joint swelling Integumentary Integumentary: Denies lesions, pruritus or rash Neurologic Neurologic: Denies dizziness, numbness or seizures Psychiatric Psychiatric: Reports depression Endocrine Endocrinology: Denies cold intolerance, heat intolerance or polydipsia Hematologic/Lymphatic Hematologic/Lymphatic: Denies easy bleeding or easy bruising Allergic/Immunologic Allergic/Immunologic: Denies wheezing Physical Exam Const alert, oriented x3 and no apparent distress General Appearance: cooperative HEENT Head and Scalp: normal to inspection Eyes Eyes Narrative: Wears glasses General Eye: normal appearance of both eyes Neck General: normal visual inspection Lymph Lymphatic: no lymphadenopathy noted and no lymphedema noted Resp normal respiratory effort Cardio regular rate and regular rhythm Extremity Extremity Narrative: Left lower extremity: Vascular: DP and PT pulses weakly palpable. CFT less than 5 seconds to the digits. Normal temperature gradient. Hair growth is absent to digits/foot. Neurologic: Decreased protective sensation tested with 5.07g [place]ie monofilament consistent with diabetic peripheral polyneuropathy. Gross sensation is intact. Light touch sensation diminished. Musculoskeletal: Muscle strength was deferred secondary to previous Achilles tendon surgery Dermatologic: There is an ulceration noted to the posterior aspect of the left lower extremity secondary to surgical dehiscence with significant desquamation of the skin overlying the Achilles tendon with exposure of the Achilles tendon and surgical sutures. There is fibrous tissue, nonviable tissue, necrotic tissue, biofilm, and slough of the wound site with necrosis/crust of the tissue margins at the lateral aspect. No purulent drainage, no palpable fluctuance/bogginess. There is localized erythema about the wound margin consistent with localized cellulitis versus tissue irritation secondary to drainage. Achilles tendon is visible and appears intact distally with sutures exposed. Skin no rashes or lesions noted and skin turgor normal Neuro moves all extremities Lab / Micro Data 02/22/24 07:17 02/22/24 07:17 Labs: Laboratory Results - last 24 hr 02/21/24 21:51: POC Glucose 96 02/22/24 04:18: POC Glucose 141 H 02/22/24 06:48: POC Glucose 96 02/22/24 07:17: WBC 5.8, RBC 3.96 L, Hgb 10.8 L, Hct 35.7 L, MCV 90.2, MCH 27.3, MCHC 30.3 L, RDW Std Deviation 45.1 H, RDW Coeff of Kami 13.8, Plt Count 238, MPV 9.1, Immature Gran % (Auto) 0.300, Neut % (Auto) 50.0, Lymph % (Auto) 36.2, Emmet % (Auto) 10.4 H, Eos % (Auto) 2.6, Baso % (Auto) 0.5, Absolute Neuts (auto) 2.9, Absolute Lymphs (auto) 2.09, Nucleated RBC % 0, PT 15.0 H, INR 1.2, Sodium 140, Potassium 3.8, Chloride 103, Carbon Dioxide 30.0, Anion Gap 7, BUN 12, Creatinine 0.59, Estim Creat Clear Calc 124.96, Est GFR (MDRD) Af Amer 134, Est GFR (MDRD) Non-Af 111, BUN/Creatinine Ratio 20.3 H, Glucose 126 H, Hemoglobin A1c 6.2 H, Calcium 8.7, Phosphorus 4.6, Magnesium 2.2, Total Bilirubin 0.30, Direct Bilirubin 0.11, AST 21, ALT 22, Alkaline Phosphatase 94, Total Protein 7.3, Albumin 3.0 L, Globulin 4.3 H, Albumin/Globulin Ratio 0.7 L, TSH 0.13 L 02/22/24 10:42: POC Glucose 102 02/22/24 16:36: POC Glucose 127 H Micro: Microbiology 02/22/24 08:00 Wound - Heel, Left Gram Stain - Final
[2024-02-22] MEDS: Insulin Lispro 100 UNIT/ML INSULN.PEN SC (22:12)
[2024-02-22] MEDS: traZODone 100 MG Tablet 200 MG PO (22:13)
[2024-02-22] MEDS: Glucerna Shake 120 ML LIQUID PO (22:13)
[2024-02-22] MEDS: Atorvastatin Calcium 80 MG Tablet PO (22:13)
[2024-02-22 22:44] LABS: Bedside Glucose 204 mg/dL (74-106)
[2024-02-23] MEDS: Vancomycin HCl 1,250 MG in 0.9% Normal Saline (250mL Bag) 250 ML 167 MG IV (00:16)
[2024-02-23 02:57] VITALS: BP 157/80; PULSE 60; RESP 16; TEMP 36.5; O2SAT 96
[2024-02-23] MEDS: Insulin Lispro 100 UNIT/ML INSULN.PEN SC ×2 (03:00→16:58)
[2024-02-23 03:56] LABS: Bedside Glucose 173 mg/dL (74-106)
[2024-02-23] MEDS: Cefazolin 1 GM/50 ML BAG IV ×3 (06:17→22:59)
[2024-02-23] MEDS: Levothyroxine 175 MCG Tablet PO (06:25)
[2024-02-23] MEDS: oxyCODONE 5 MG Tablet PO ×3 (06:25→23:57)
[2024-02-23] MEDS: Pregabalin 75 MG Capsule 150 MG PO ×3 (06:25→23:34)
--- NOTE | 2024-02-23 07:02 | PCM.PN.HOSP ---
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 No new events. Did not sleep well last night even though taking her trazodone at around 8:00. Objective Data Objective Data Vital Signs: Vital Signs Temp Pulse Resp BP Pulse Ox O2 Del Method O2 Flow Rate 36.5 C L 60 16 157/80 H 96 Room Air 2 02/23/24 02:57 02/23/24 02:57 02/23/24 02:57 02/23/24 02:57 02/23/24 02:57 02/23/24 02:57 02/22/24 14:30 Oxygen Flow Rate (L/min) 2 Oxygen Delivery Method Room Air Weight: 96.9 kg Body Mass Index (BMI) 32.4 Intake & Output: Intake and Output for Last 24 Hours 02/21/24 02/22/24 02/23/24 23:59 23:59 23:59 Intake Total 150 / 650 2491.5 / 2491.5 565 / 565 Balance 150 / 650 2491.5 / 2491.5 565 / 565 Lab / Micro Data 02/23/24 07:31 02/23/24 07:31 Labs: Laboratory Results - last 24 hr 02/22/24 06:48: POC Glucose 96 02/22/24 07:17: WBC 5.8, RBC 3.96 L, Hgb 10.8 L, Hct 35.7 L, MCV 90.2, MCH 27.3, MCHC 30.3 L, RDW Std Deviation 45.1 H, RDW Coeff of Kami 13.8, Plt Count 238, MPV 9.1, Immature Gran % (Auto) 0.300, Neut % (Auto) 50.0, Lymph % (Auto) 36.2, Pickett % (Auto) 10.4 H, Eos % (Auto) 2.6, Baso % (Auto) 0.5, Absolute Neuts (auto) 2.9, Absolute Lymphs (auto) 2.09, Nucleated RBC % 0, PT 15.0 H, INR 1.2, Sodium 140, Potassium 3.8, Chloride 103, Carbon Dioxide 30.0, Anion Gap 7, BUN 12, Creatinine 0.59, Estim Creat Clear Calc 124.96, Est GFR (MDRD) Af Amer 134, Est GFR (MDRD) Non-Af 111, BUN/Creatinine Ratio 20.3 H, Glucose 126 H, Hemoglobin A1c 6.2 H, Calcium 8.7, Phosphorus 4.6, Magnesium 2.2, Total Bilirubin 0.30, Direct Bilirubin 0.11, AST 21, ALT 22, Alkaline Phosphatase 94, Total Protein 7.3, Albumin 3.0 L, Globulin 4.3 H, Albumin/Globulin Ratio 0.7 L, TSH 0.13 L 02/22/24 10:42: POC Glucose 102 02/22/24 16:36: POC Glucose 127 H 02/22/24 22:11: POC Glucose 204 H 02/23/24 02:51: POC Glucose 173 H Micro: Microbiology 02/22/24 08:00 Wound - Heel, Left Gram Stain - Final Physical Exam Const alert and no apparent distress HEENT head/scalp atraumatic and moist oral mucous membranes Resp normal respiratory effort, no retractions, no use of accessory muscles and clear to auscultation bilaterally Cardio regular rate, regular rhythm, S1 normal heart sound and S2 normal heart sound GI normal to inspection, nondistended, normoactive bowel sounds, soft to palpation, non-tender and non-distended Extremity Extremity Narrative: Left foot wrapped, did not remove. Assessment & Plan Assessment/Plan (1) Diabetic infection of left foot: PLAN: Plan Left Calcaneal osteomyelitis noted on ankle xray. ESR 63 and CRP of 25.9. pt had repair of Achilles tendon tear left foot, tendo Achilles shortening/advancement left foot, flexor hallux longus tendon transfer left foot, debridement of Achilles tendon and tenosynovitis of the left foot on January 25. But a week or 2 prior to presentation here, she hit something and had wound that developed and started bleeding. When she followed up with podiatry on the , she was directed to the emergency room. Abx with cefazolin and vancomycin Check wound culture Podiatry took patient to OR 02/21: Surgery performed: I+D, debridement of ulceration and necrotic tissue to the level of the Achilles tendon/musculotendinous junction. Application of wound vac. Consult infectious disease for long-term IV antibiotic recommendations. Type 2 diabetes with diabetic foot ulcer Continue home insulin aspart 10 units subcu 3 times daily and glimepiride Not a basal insulin. A1c pending Insomnia Patient takes trazodone nightly. She is inquiring if we can increase the dose. Asked her about her screen habits at night and she said that she is premed on her screen until she can fall asleep. Advised her to have a hard stop time around 10 PM and see if that would help. Also explained to her that she may have not slept well last night because she just had surgery and sounds like a lot of other social issues around her mind. She was agreeable and will try to minimize her screen usage as it may limit her ability to fall asleep easily. Chronic conditions: Diabetic neuropathy: Continue pregabalin Hypertension -losartan 100 mg daily-Metoprolol succinate 200 mg daily Hypothyroidism: levothyroxine GERD: Continue omeprazole 40 daily Anxiety/depression: Paroxetine 40 mg daily DVT prophylaxis: Enoxaparin 40 mg SQ Charges/Coding Visit Charges Inpatient E&M: 65891 Subs Hosp L2
[2024-02-23 07:40] LABS: Absolute Lymphocyte Count 1.13 X10^3/uL (0.83-4.51); Absolute Neutrophil Count 4.9 X10^3/uL (2.0-7.7); Basophil# 0.01 X10^3/uL; Basophil% 0.2 % (0-1); Eosinophil# 0.02 X10^3/uL; Eosinophils% 0.3 % (0-5); Hematocrit 35.3 % (37-47); Hemoglobin 11.1 g/dL (12.0-15.0); Lymphocyte # 1.13 X10^3/ul (0.83-4.51); Lymphocyte % 17.4 % (19-41); Mean Corp Hgb Conc 31.4 g/dL (32-36); Mean Corpuscular Hgb 27.3 pg (27.0-32.0); Mean Corpuscular Volume 86.7 fL (81-99); Mean Platelet Vol. 8.8 fl (6.2-12.0); Monocyte# 0.41 X10^3/uL; Monocyte% 6.3 % (0-10); NRBC Flagged by Analyzer 0 % (0-5); Neutrophil # 4.89 X10^3/uL (2.7-7.7); Neutrophil % 75.3 % (47-70); Platelet Count 295 K/mm3 (150-450); RBC Distribution Width CV 13.2 % (11.6-14.6); RBC Distribution Width SD 41.3 fl (35.1-43.9); Red Blood Count 4.07 M/mm3 (4.2-5.4); White Blood Count 6.5 K/mm3 (4.4-11.0)
--- NOTE | 2024-02-23 07:41 | PN_ITS ---
Subjective Subjective Patient seen early this a.m. with left foot elevated and wound VAC intact. Patient states that she did have a little insomnia overnight but otherwise denies pain. Patient has been able to void without difficulty. Denies constitutional symptoms. Denies further complaints. Objective Data Objective Data Vital Signs: Vital Signs Temp Pulse Resp BP Pulse Ox O2 Del Method O2 Flow Rate 97.7 F L 60 16 157/80 H 96 Room Air 2 02/23/24 02:57 02/23/24 02:57 02/23/24 02:57 02/23/24 02:57 02/23/24 02:57 02/23/24 02:57 02/22/24 14:30 Oxygen Flow Rate (L/min) 2 Oxygen Delivery Method Room Air Weight: 96.9 kg Body Mass Index (BMI) 32.4 Intake & Output: Intake and Output for Last 24 Hours 02/21/24 02/22/24 02/23/24 23:59 23:59 23:59 Intake Total 150 / 650 2491.5 / 2491.5 565 / 565 Balance 150 / 650 2491.5 / 2491.5 565 / 565 Lab / Micro Data 02/23/24 07:31 02/22/24 07:17 Labs: Laboratory Results - last 24 hr 02/22/24 07:17: PT 15.0 H, INR 1.2, Sodium 140, Potassium 3.8, Chloride 103, Carbon Dioxide 30.0, Anion Gap 7, BUN 12, Creatinine 0.59, Estim Creat Clear Calc 124.96, Est GFR (MDRD) Af Amer 134, Est GFR (MDRD) Non-Af 111, B UN/Creatinine Ratio 20.3 H, Glucose 126 H, Hemoglobin A1c 6.2 H, Calcium 8.7, Phosphorus 4.6, Magnesium 2.2, Total Bilirubin 0.30, Direct Bilirubin 0.11, AST 21, ALT 22, Alkaline Phosphatase 94, Total Protein 7.3, Albumin 3.0 L, Globulin 4.3 H, Albumin/Globulin Ratio 0.7 L, TSH 0.13 L 02/22/24 10:42: POC Glucose 102 02/22/24 16:36: POC Glucose 127 H 02/22/24 22:11: POC Glucose 204 H 02/23/24 02:51: POC Glucose 173 H 02/23/24 07:31: WBC 6.5, RBC 4.07 L, Hgb 11.1 L, Hct 35.3 L, MCV 86.7, MCH 27.3, MCHC 31.4 L, RDW Std Deviation 41.3, RDW Coeff of Kami 13.2, Plt Count 295, MPV 8.8, Immature Gran % (Auto) 0.500, Neut % (Auto) 75.3 H, Lymph % (Auto) 17.4 L, [place] % (Auto) 6.3, Eos % (Auto) 0.3, Baso % (Auto) 0.2, Absolute Neuts (auto) 4.9, Absolute Lymphs (auto) 1.13, Nucleated RBC % 0 Micro: Microbiology 02/22/24 08:00 Wound - Heel, Left Gram Stain - Final Physical Exam Const alert, oriented x3 and no apparent distress General Appearance: cooperative Eyes Eyes Narrative: Wears glasses General Eye: normal appearance of both eyes Neck General: normal visual inspection Lymph Lymphatic: no lymphadenopathy noted and no lymphedema noted Resp normal respiratory effort Cardio regular rate and regular rhythm Extremity Extremity Narrative: Left lower extremity: Vascular: DP and PT pulses weakly palpable. CFT less than 5 seconds to the digits. Normal temperature gradient. Hair growth is absent to digits/foot. Neurologic: Decreased protective sensation tested with 5.07g [place] monofilament consistent with diabetic peripheral polyneuropathy. Gross sensation is intact. Light touch sensation diminished. Musculoskeletal: Muscle strength was deferred secondary to previous Achilles tendon surgery Dermatologic: There is an ulceration noted to the posterior aspect of the left lower extremity secondary to surgical dehiscence with significant desquamation of the skin overlying the Achilles tendon with exposure of the Achilles tendon and surgical sutures. Achilles tendon is intact. Healthy bleeding tissue was noted postdebridement. Advanced wound care product in place with wound VAC over the Adaptic. 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 POD #28 Due to surgical dehiscence secondary to placing weight to the foot she did return to the OR on 02/22/2024 for debridement of necrotic tissue with application of advanced wound care product and application of wound VAC to left lower extremity. Left Lower Extremity: There is an ulceration noted to the posterior aspect of the left lower extremity secondary to surgical dehiscence with significant desquamation of the skin overlying the Achilles tendon with exposure of the Achilles tendon and surgical sutures. Achilles tendon is intact. There is healthy bleeding tissue noted postdebridement. Advanced wound care product is in place and dressed with Adaptic and anchored with Steri-Strips. Wound VAC is in place over the Adaptic with good seal and no leak detected at 125 mmHg continuous pressure. WBC 6.8, Hgb 11.1, Hct 35.5, platelet 288, HgbA1c 6.2% on 02/21/24. Patient currently on on Vanco/cefepime due to PCN allergy. Wound VAC in place to left lower extremity. Do not disturb dressing as the graft is in place under the VAC. Will change VAC with the assistance of wound nurse on 02/26/2024 Patient is to remain nonweightbearing to the left lower extremity with the assistance of walker/wheelchair She is to elevate the left lower extremity at all times of rest and is to not have pressure against the posterior aspect of the lower left extremity/Achilles tendon area Patient does have significant neuropathy and lacks adequate sensation from the knee down, however may take oxycodone-acetaminophen 5/325mg as needed for pain. Medicine currently following for medical management, they are greatly appreciated Infectious disease following for IV antibiotic guidance Wound nurse following for assistance in dressing changes, she is greatly appreciated. Discussed with patient placement in SNF likely the transitional care unit if possible for continued care and assistance with VAC changes and continued monitoring. Podiatry will continue to follow while in house Jr. Gibran Bustos.P.[facility] [phone]
[2024-02-23 07:47] VITALS: PULSE 64
[2024-02-23] MEDS: Metoprolol(XL)Succ 200 MG Tablet PO (07:47)
[2024-02-23] MEDS: Aspirin E.C. 81 MG Tablet PO (07:47)
[2024-02-23] MEDS: Paroxetine 20 MG Tablet 40 MG PO (07:47)
[2024-02-23] MEDS: Enoxaparin 40 MG/0.4 ML Syringe SC (07:47)
[2024-02-23] MEDS: Insulin Lispro 100 UNIT/ML INSULN.PEN 10 UNIT SC ×3 (07:48→16:58)
[2024-02-23] MEDS: Losartan Potassium 100 MG Tablet PO (07:48)
[2024-02-23] MEDS: Pantoprazole Sodium 40 MG Tablet PO (07:48)
--- NOTE | 2024-02-23 07:52 | WOUNDNOTE ---
wound VAC dressing intact. Good seal noted at 125mmHg low continuous suction. dressing intact. plan is for wound VAC dressing change Monday with podiatry. Pt denies needs at this time.
[2024-02-23 08:10] LABS: Anion Gap 6 (5-15); BUN 12 mg/dL (7-18); BUN/Creat Ratio 19.9 RATIO (10-20); Calcium,Total 8.8 mg/dL (8.5-10.1); Chloride 100 mmol/L (98-107); EST Glomerular Filtration Rate 108 mL/min (>60); Est Glom Filt Rate - Afr Amer 131 mL/min (>60); Estimated Creatinine Clearance 122.88 ml/min; Glucose 191 mg/dL (74-106); Potassium 3.8 mmol/L (3.5-5.1); Sodium Level 138 mmol/L (136-145)
[2024-02-23 08:12] LABS: Vancomycin, Trough Level 26.8 ug/mL (5.0-15.0)
[2024-02-23 08:16] LABS: Bedside Glucose 143 mg/dL (74-106)
[2024-02-23 09:00] VITALS: BP 150/77; PULSE 64; RESP 18; TEMP 36.1; O2SAT 99
--- NOTE | 2024-02-23 09:50 | PCM.RX.CS ---
Consult Antibiotic Management Pharmacy has been consulted to manage selected antibiotic: Vancomycin Type of Intervention Type of Consult: Follow-up Suspected Infection Suspected Infection: Osteomyelitis Prior Doses of Antibiotics Prior Doses of Antibiotics Received/Current Regimen: Vancomycin 1250 mg IV Q8H given 02/21 @ 1641, 02/22 @ 0016 Labs Labs: Sodium 138 mmol/L (136-145) 02/23/24 07:31 Potassium 3.8 mmol/L (3.5-5.1) 02/23/24 07:31 Chloride 100 mmol/L (98-107) 02/23/24 07:31 Carbon Dioxide 32.0 mmol/L (21.0-32.0) 02/23/24 07:31 Anion Gap 6 (5-15) 02/23/24 07:31 BUN 12 mg/dL (7-18) 02/23/24 07:31 Creatinine 0.60 mg/dL (0.55-1.02) 02/23/24 07:31 Est GFR (MDRD) Af Amer 131 mL/min (>60) 02/23/24 07:31 Est GFR (MDRD) Non-Af 108 mL/min (>60) 02/23/24 07:31 BUN/Creatinine Ratio 19.9 RATIO (10-20) 02/23/24 07:31 Glucose 191 mg/dL (74-106) H 02/23/24 07:31 Vancomycin Trough 26.8 ug/mL (5.0-15.0) H 02/23/24 07:31 Microbiology Microbiology: Microbiology 02/22/24 08:00 Wound - Heel, Left Gram Stain - Final Dosing Weight Weight used for dosin.9 kg Estimated Creatinine Clearance Estimated Creatinine Clearance: ~120 Goal Trough Goal Trough: 15-20 mcg/mL Pharmacy Plan for Drug Dosing Pharmacy Plan for Drug Dosing: Vancomycin trough = 26.8 drawn 7.25 hours after previous dose, will hold until random level tomorrow AM then reassess Pharmacy Service will continue to monitor and adjust dosing as required. Follow-Up Labs Follow-Up Labs: Trough: Vancomycin Date/Time Labs Ordered Labs to be done on [date and time ordered]: 02/23 @ 0600
--- NOTE | 2024-02-23 11:01 | CASEMGMT ---
Addendum entered by Rissa Jiang 02/23/24 13:27: Social Work Pt was accepted into TCU and precert started. SOCORRO Cano Original Note: Social Work PT/OT evaluations are completed. SW spoke w/pt, she would like a referral to TCU. SW called TCU, referral made, [facility] is to let SW know if they can take pt and will start precert if they can take. SW will continue to follow. SOCORRO Cano
--- NOTE | 2024-02-23 13:34 | CASEMGMT ---
Addendum entered by Hailey Cooper 02/23/24 13:56: Social Work- Paperwork not sent, as physician reports that pt will not be ready to leave until after the weekend. MIGUELINA Sorto Original Note: Social Work- SW received word of precert approval. SW advised pt and bedside nurse. MALIA advised pt that she would need to supply Mounjaro; pt agreeable. MALIA sent paperwork to TCU. MIGUELINA Sorto
[2024-02-23 14:00] VITALS: BP 123/74; PULSE 74; RESP 18; TEMP 36.2; O2SAT 95
--- NOTE | 2024-02-23 15:14 | CHAPLAIN ---
Type of Pastoral Visit _x__ Initial Visit ___ Follow-up Visit ___ On-call Visit ___ General Patient Visit ___ Spiritual Assessment ___ Family Conference ___ Bereavement ___ Rapid Response ___ Code Blue ___ Other (describe below) Pastoral Care Referral From _x__ Patient ___ Family ___ Nurse ___ Physician ___ Microstrategy Reports Developer ___ Creosoting Engineer ___ Other (describe below) Sacrament/Intervention _x__ Active listening ___ Anointing ___ Mandaeism ___ Bereavement ___ Communion ___ [place] exploration ___ ___ Life review _x__ Prayer ___ Reconciliation ___ Sacrament of Sick _x__ Supportive presence ___ Wedding ___ Other (describe below) Pastoral Comments
[2024-02-23 17:17] LABS: Bedside Glucose 165 mg/dL (74-106)
[2024-02-23 22:50] VITALS: BP 150/79; PULSE 58; RESP 18; TEMP 36.5; O2SAT 96
[2024-02-23] MEDS: Atorvastatin Calcium 80 MG Tablet PO (23:00)
[2024-02-23] MEDS: traZODone 100 MG Tablet 200 MG PO (23:00)
[2024-02-23] MEDS: Acetaminophen 325 MG Tablet 650 MG PO (23:57)
[2024-02-24] VITALS (10 sets, daily range): BP systolic 103–152; BP diastolic 62–82; PULSE 51–80; RESP 18; TEMP 35.7–36.6; O2SAT 94–96
[2024-02-24] MEDS: 0.9% Normal Saline (250mL Bag) 250 ML 15 ML IV ×2 (00:05→18:44)
[2024-02-24 00:57] LABS: Bedside Glucose 134 mg/dL (74-106)
[2024-02-24 00:57] LABS: Bedside Glucose 131 mg/dL (74-106)
[2024-02-24 03:13] LABS: Bedside Glucose 108 mg/dL (74-106)
[2024-02-24 05:44] LABS: Absolute Lymphocyte Count 2.39 X10^3/uL (0.83-4.51); Absolute Neutrophil Count 3.6 X10^3/uL (2.0-7.7); Basophil# 0.03 X10^3/uL; Basophil% 0.4 % (0-1); Eosinophil# 0.15 X10^3/uL; Eosinophils% 2.2 % (0-5); Hematocrit 36.5 % (37-47); Hemoglobin 11.3 g/dL (12.0-15.0); Lymphocyte # 2.39 X10^3/ul (0.83-4.51); Lymphocyte % 35.3 % (19-41); Mean Corpuscular Hgb 27.1 pg (27.0-32.0); Mean Corpuscular Volume 87.5 fL (81-99); Mean Platelet Vol. 8.9 fl (6.2-12.0); Monocyte# 0.56 X10^3/uL; Monocyte% 8.3 % (0-10); NRBC Flagged by Analyzer 0 % (0-5); Neutrophil # 3.63 X10^3/uL (2.7-7.7); Neutrophil % 53.5 % (47-70); Platelet Count 283 K/mm3 (150-450); RBC Distribution Width CV 13.6 % (11.6-14.6); RBC Distribution Width SD 43.4 fl (35.1-43.9); Red Blood Count 4.17 M/mm3 (4.2-5.4); White Blood Count 6.8 K/mm3 (4.4-11.0)
[2024-02-24] MEDS: Cefazolin 1 GM/50 ML BAG IV (06:14)
[2024-02-24] MEDS: Levothyroxine 175 MCG Tablet PO (06:18)
[2024-02-24] MEDS: Acetaminophen 325 MG Tablet 650 MG PO ×3 (06:18→19:55)
[2024-02-24 06:19] LABS: Anion Gap 8 (5-15); BUN 18 mg/dL (7-18); BUN/Creat Ratio 29.3 RATIO (10-20); Calcium,Total 8.6 mg/dL (8.5-10.1); Chloride 102 mmol/L (98-107); Creatinine, Serum 0.61 mg/dL (0.55-1.02); EST Glomerular Filtration Rate 106 mL/min (>60); Est Glom Filt Rate - Afr Amer 128 mL/min (>60); Estimated Creatinine Clearance 120.86 ml/min; Glucose 146 mg/dL (74-106); Potassium 3.5 mmol/L (3.5-5.1); Sodium Level 140 mmol/L (136-145)
[2024-02-24] MEDS: Pregabalin 75 MG Capsule 150 MG PO ×3 (06:19→21:31)
[2024-02-24 06:22] LABS: Vancomycin, Random Level 9.7 ug/mL (0.0-15.0)
--- NOTE | 2024-02-24 06:48 | PCM.RX.CS ---
Consult Antibiotic Management Pharmacy has been consulted to manage selected antibiotic: Vancomycin Type of Intervention Type of Consult: Follow-up Labs Labs: Sodium 140 mmol/L (136-145) 02/24/24 05:31 Potassium 3.5 mmol/L (3.5-5.1) 02/24/24 05:31 Chloride 102 mmol/L (98-107) 02/24/24 05:31 Carbon Dioxide 30.0 mmol/L (21.0-32.0) 02/24/24 05:31 Anion Gap 8 (5-15) 02/24/24 05:31 BUN 18 mg/dL (7-18) 02/24/24 05:31 Creatinine 0.61 mg/dL (0.55-1.02) 02/24/24 05:31 Est GFR (MDRD) Af Amer 128 mL/min (>60) 02/24/24 05:31 Est GFR (MDRD) Non-Af 106 mL/min (>60) 02/24/24 05:31 BUN/Creatinine Ratio 29.3 RATIO (10-20) H 02/24/24 05:31 Glucose 146 mg/dL (74-106) H 02/24/24 05:31 Vancomycin Trough 26.8 ug/mL (5.0-15.0) H 02/23/24 07:31 Random Vancomycin 9.7 ug/mL (0.0-15.0) 02/24/24 05:31 Microbiology Microbiology: Microbiology 02/22/24 08:00 Wound - Heel, Left Gram Stain - Final 02/22/24 08:00 Wound - Heel, Left Wound Culture - Preliminary Staphylococcus aureus Gram negative elizabeth Goal Trough Goal Trough: 15-20 mcg/mL Pharmacy Plan for Drug Dosing Pharmacy Plan for Drug Dosing: Pharmacy Service will continue to monitor and adjust dosing as required. RANDOM LEVEL 9.7 @ 29 HOURS. DECREASE TO 750MG Q8H AND FOLLOW UP TROUGH PRIOR TO 4TH DOSE Follow-Up Labs Follow-Up Labs: Trough: Vancomycin Date/Time Labs Ordered Labs to be done on [date and time ordered]: 02/24 @ 4524
[2024-02-24] MEDS: Vancomycin HCl 750 MG in 0.9% Normal Saline (250mL Bag) 250 ML 250 MG IV (07:41)
[2024-02-24] MEDS: Aspirin E.C. 81 MG Tablet PO (08:18)
[2024-02-24] MEDS: Insulin Lispro 100 UNIT/ML INSULN.PEN 10 UNIT SC ×2 (08:19→12:41)
[2024-02-24 08:48] LABS: Bedside Glucose 116 mg/dL (74-106)
--- NOTE | 2024-02-24 09:58 | PN.HOSP_ITS ---
Subjective Subjective Doing well, no issues overnight Objective Data Objective Data Vital Signs: Vital Signs Temp Pulse Resp BP Pulse Ox O2 Del Method O2 Flow Rate 97.5 F L 80 18 131/62 H 96 Room Air 2 02/24/24 04:13 02/24/24 08:23 02/24/24 08:23 02/24/24 04:13 02/24/24 08:23 02/24/24 08:23 02/22/24 14:30 Oxygen Flow Rate (L/min) 2 Oxygen Delivery Method Room Air Weight: 213 lb 10.047 oz Body Mass Index (BMI) 32.4 Intake & Output: Intake and Output for Last 24 Hours 02/23/24 02/24/24 02/25/24 03:59 03:59 03:59 Intake Total 2266.5 / 2266.5 613.5 / 613.5 50 / 50 Balance 2266.5 / 2266.5 613.5 / 613.5 50 / 50 Lab / Micro Data 02/24/24 05:31 02/24/24 05:31 Labs: Laboratory Results - last 24 hr 02/23/24 11:46: POC Glucose 131 H 02/23/24 16:57: POC Glucose 165 H 02/23/24 23:11: POC Glucose 134 H 02/24/24 02:31: POC Glucose 108 H 02/24/24 05:31: WBC 6.8, RBC 4.17 L, Hgb 11.3 L, Hct 36.5 L, MCV 87.5, MCH 27.1, MCHC 31.0 L, RDW Std Deviation 43.4, RDW Coeff of Kami 13.6, Plt Count 283, MPV 8.9, Immature Gran % (Auto) 0.300, Neut % (Auto) 53.5, Lymph % (Auto) 35.3, [place] % (Auto) 8.3, Eos % (Auto) 2.2, Baso % (Auto) 0.4, Absolute Neuts (auto) 3.6, Absolute Lymphs (auto) 2.39, Nucleated RBC % 0, Sodium 140, Potassium 3.5, Chloride 102, Carbon Dioxide 30.0, Anion Gap 8, BUN 18, Creatinine 0.61, Estim Creat Clear Calc 120.86, Est GFR (MDRD) Af Amer 128, Est GFR (MDRD) Non-Af 106, BUN/Creatinine Ratio 29.3 H, Glucose 146 H, Calcium 8.6, Random Vancomycin 9.7 02/24/24 08:16: POC Glucose 116 H Micro: Microbiology 02/22/24 08:00 Wound - Heel, Left Gram Stain - Final 02/22/24 08:00 Wound - Heel, Left Wound Culture - Preliminary Staphylococcus aureus Gram negative elizabeth Physical Exam Narrative General: Alert, Oriented x3, Cooperative, No apparent distress HEENT: Atraumatic, PERRLA, EOMI, Normocephalic Oral: Moist Mucosa Neck: Supple, No JVD Lungs: Clear to auscultation, Normal air movement, No rhonchi, No wheeze, No rales Cardiovascular: Regular rate, Regular Rhythm, Normal S1, Normal S2, No murmurs Abdomen: Soft, Non Tender, Non-Distended, No Hepato-splenomegaly Extremities: No edema, Capillary Refill Less than 3 Seconds Skin: Left lower extremity wound dressed, intact and clean Musculoskeletal: No Tenderness to Palpation of Joints or Extremities Neurological: No focal neurological deficits, Motor Exam 5/5 strength throughout, Sensory exam intact to light touch and pain Psych/Mental Status: Normal Affect, Appropriate Assessment & Plan Assessment/Plan (1) Diabetic infection of left foot: PLAN: Plan Left Calcaneal osteomyelitis * noted on ankle xray. ESR 63 and CRP of 25.9. * pt had repair of Achilles tendon tear left foot, tendo Achilles shortening/advancement left foot, flexor hallux longus tendon transfer left foot, debridement of Achilles tendon and tenosynovitis of the left foot on January 25. * But a week or 2 prior to presentation here, she hit something and had wound that developed and started bleeding. When she followed up with podiatry on the , she was directed to the emergency room. * Will DC Ancef and vancomycin and transition to cefepime as she has MSSA previous cultures with Pseudomonas and she has an unidentified gram-negative elizabeth at the moment * Podiatry took patient to OR 02/21: Surgery performed: I+D, debridement of ulceration and necrotic tissue to the level of the Achilles tendon/musculotendinous junction. Application of wound vac. * Consult infectious disease for long-term IV antibiotic recommendations on Monday Type 2 diabetes with diabetic foot ulcer with neuropathy * Continue home insulin aspart 10 units subcu 3 times daily and glimepiride * Not a basal insulin. * A1c is 6.2 * Continue with Lyrica Insomnia * Patient takes trazodone nightly. Chronic conditions: * Hypertension -losartan 100 mg daily-Metoprolol succinate 200 mg daily * Hypothyroidism: levothyroxine * GERD: Continue omeprazole 40 daily * Anxiety/depression: Paroxetine 40 mg daily DVT: Lovenox Charges/Coding Visit Charges Inpatient E&M: 38285 Subs Hosp L2
[2024-02-24] MEDS: Losartan Potassium 100 MG Tablet PO (10:15)
[2024-02-24] MEDS: Enoxaparin 40 MG/0.4 ML Syringe SC (10:15)
[2024-02-24] MEDS: Paroxetine 20 MG Tablet 40 MG PO (10:16)
[2024-02-24] MEDS: Pantoprazole Sodium 40 MG Tablet PO (10:17)
--- NOTE | 2024-02-24 10:25 | NURSING ---
1025 texted about Bp 103/65 pulse 60, checking about administering am med. Alberto Flowers RN
--- NOTE | 2024-02-24 10:43 | NURSING ---
1030 responded to Text, ok to hold am BP med. Alberto Flowers RN
[2024-02-24] MEDS: oxyCODONE 5 MG Tablet PO ×2 (12:45→19:56)
[2024-02-24 12:57] LABS: Bedside Glucose 107 mg/dL (74-106)
[2024-02-24] MEDS: Cefepime HCl 2 GM in 0.9% Normal Saline (100mL MB+) 100 ML IV ×2 (14:54→21:31)
[2024-02-24 17:56] LABS: Bedside Glucose 100 mg/dL (74-106)
[2024-02-24] MEDS: traZODone 100 MG Tablet 200 MG PO (21:31)
[2024-02-24] MEDS: Glucerna Shake 120 ML LIQUID PO (21:31)
[2024-02-24] MEDS: Insulin Lispro 100 UNIT/ML INSULN.PEN SC (21:31)
[2024-02-24] MEDS: Atorvastatin Calcium 80 MG Tablet PO (21:31)
[2024-02-25 00:25] LABS: Bedside Glucose 159 mg/dL (74-106)
[2024-02-25 02:00] VITALS: BP 134/59; PULSE 69; PULSE 80; RESP 18; TEMP 36.3; O2SAT 94; O2SAT 96
[2024-02-25] MEDS: Pregabalin 75 MG Capsule 150 MG PO ×3 (05:16→22:32)
[2024-02-25] MEDS: Levothyroxine 175 MCG Tablet PO (05:16)
[2024-02-25] MEDS: Cefepime HCl 2 GM in 0.9% Normal Saline (100mL MB+) 100 ML IV ×3 (05:17→22:36)
[2024-02-25 07:14] LABS: Bedside Glucose 137 mg/dL (74-106)
[2024-02-25] MEDS: Glucerna Shake 120 ML LIQUID PO ×4 (08:25→22:41)
[2024-02-25] MEDS: Enoxaparin 40 MG/0.4 ML Syringe SC (08:25)
[2024-02-25] MEDS: Insulin Lispro 100 UNIT/ML INSULN.PEN 10 UNIT SC ×3 (08:25→16:28)
[2024-02-25] MEDS: Pantoprazole Sodium 40 MG Tablet PO (08:26)
[2024-02-25] MEDS: Losartan Potassium 100 MG Tablet PO (08:26)
[2024-02-25 08:27] VITALS: PULSE 88
[2024-02-25] MEDS: Aspirin E.C. 81 MG Tablet PO (08:27)
[2024-02-25] MEDS: Metoprolol(XL)Succ 200 MG Tablet PO (08:27)
[2024-02-25] MEDS: Paroxetine 20 MG Tablet 40 MG PO (08:28)
[2024-02-25] MEDS: Acetaminophen 325 MG Tablet 650 MG PO ×3 (08:28→22:32)
[2024-02-25] MEDS: oxyCODONE 5 MG Tablet PO ×3 (08:28→22:32)
[2024-02-25 08:30] VITALS: BP 117/64; PULSE 66; RESP 16; TEMP 36.3; O2SAT 98
[2024-02-25 08:50] LABS: Bedside Glucose 133 mg/dL (74-106)
--- NOTE | 2024-02-25 10:15 | PN.HOSP_ITS ---
Subjective Subjective Doing well, no issues overnight currently awaiting finalization of cultures Objective Data Objective Data Vital Signs: Vital Signs Temp Pulse Resp BP Pulse Ox O2 Del Method O2 Flow Rate 97.4 F L 66 16 117/64 98 Room Air 2 02/25/24 08:30 02/25/24 08:30 02/25/24 08:30 02/25/24 08:30 02/25/24 08:30 02/25/24 08:30 02/22/24 14:30 Oxygen Flow Rate (L/min) 2 Oxygen Delivery Method Room Air Weight: 213 lb 10.047 oz Body Mass Index (BMI) 32.4 Intake & Output: Intake and Output for Last 24 Hours 02/24/24 02/25/24 02/26/24 03:59 03:59 03:59 Intake Total 613.5 / 613.5 1465 / 1465 170 / 170 Balance 613.5 / 613.5 1465 / 1465 170 / 170 Lab / Micro Data 02/24/24 05:31 02/24/24 05:31 Labs: Laboratory Results - last 24 hr 02/24/24 12:39: POC Glucose 107 H 02/24/24 17:24: POC Glucose 100 02/24/24 21:29: POC Glucose 159 H 02/25/24 05:16: POC Glucose 137 H 02/25/24 08:21: POC Glucose 133 H Micro: Microbiology 02/22/24 08:00 Wound - Heel, Left Gram Stain - Final 02/22/24 08:00 Wound - Heel, Left Wound Culture - Preliminary Staphylococcus aureus Gram negative elizabeth Physical Exam Narrative General: Alert, Oriented x3, Cooperative, No apparent distress HEENT: Atraumatic, PERRLA, EOMI, Normocephalic Oral: Moist Mucosa Neck: Supple, No JVD Lungs: Clear to auscultation, Normal air movement, No rhonchi, No wheeze, No rales Cardiovascular: Regular rate, Regular Rhythm, Normal S1, Normal S2, No murmurs Abdomen: Soft, Non Tender, Non-Distended, No Hepato-splenomegaly Extremities: No edema, Capillary Refill Less than 3 Seconds Skin: Left lower extremity wound dressed, intact and clean Musculoskeletal: No Tenderness to Palpation of Joints or Extremities Neurological: No focal neurological deficits, Motor Exam 5/5 strength throughout, Sensory exam intact to light touch and pain Psych/Mental Status: Normal Affect, Appropriate Assessment & Plan Assessment/Plan (1) Diabetic infection of left foot: PLAN: Plan Left Calcaneal osteomyelitis * noted on ankle xray. ESR 63 and CRP of 25.9. * pt had repair of Achilles tendon tear left foot, tendo Achilles shortening/advancement left foot, flexor hallux longus tendon transfer left foot, debridement of Achilles tendon and tenosynovitis of the left foot on January 25. * But a week or 2 prior to presentation here, she hit something and had wound that developed and started bleeding. When she followed up with podiatry on the , she was directed to the emergency room. * Will DC Ancef and vancomycin and transition to cefepime as she has MSSA previous cultures with Pseudomonas and she has an unidentified gram-negative elizabeth at the moment, awaiting finalization of culture * Podiatry took patient to OR 02/21: Surgery performed: I+D, debridement of ulceration and necrotic tissue to the level of the Achilles tendon/musculotendinous junction. Application of wound vac. * Consult infectious disease for long-term IV antibiotic recommendations on Monday Type 2 diabetes with diabetic foot ulcer with neuropathy * Continue home insulin aspart 10 units subcu 3 times daily and glimepiride * Not a basal insulin. * A1c is 6.2 * Continue with Lyrica Insomnia * Patient takes trazodone nightly. Chronic conditions: * Hypertension -losartan 100 mg daily-Metoprolol succinate 200 mg daily * Hypothyroidism: levothyroxine * GERD: Continue omeprazole 40 daily * Anxiety/depression: Paroxetine 40 mg daily DVT: Lovenox Charges/Coding Visit Charges Inpatient E&M: 63084 Subs Hosp L2
[2024-02-25 12:47] LABS: Bedside Glucose 140 mg/dL (74-106)
[2024-02-25 14:33] VITALS: BP 129/72; PULSE 76; RESP 18; TEMP 36.7; O2SAT 97
[2024-02-25] MEDS: Insulin Lispro 100 UNIT/ML INSULN.PEN SC (16:28)
[2024-02-25 16:50] LABS: Bedside Glucose 160 mg/dL (74-106)
[2024-02-25 22:30] VITALS: BP 128/71; PULSE 62; RESP 16; TEMP 36.4; O2SAT 94
[2024-02-25] MEDS: traZODone 100 MG Tablet 200 MG PO (22:32)
[2024-02-25] MEDS: Atorvastatin Calcium 80 MG Tablet PO (22:33)
[2024-02-25 23:10] LABS: Bedside Glucose 141 mg/dL (74-106)
[2024-02-26 05:05] LABS: Bedside Glucose 146 mg/dL (74-106)
[2024-02-26] MEDS: Cefepime HCl 2 GM in 0.9% Normal Saline (100mL MB+) 100 ML IV ×2 (05:21→15:07)
[2024-02-26 05:48] VITALS: BP 156/80; PULSE 61; RESP 16; TEMP 36.3; O2SAT 95
[2024-02-26] MEDS: Levothyroxine 175 MCG Tablet PO (05:53)
[2024-02-26] MEDS: Pregabalin 75 MG Capsule 150 MG PO ×2 (05:53→15:47)
[2024-02-26] MEDS: Acetaminophen 325 MG Tablet 650 MG PO ×2 (05:57→16:01)
[2024-02-26] MEDS: oxyCODONE 5 MG Tablet PO ×2 (05:57→16:00)
[2024-02-26 06:56] LABS: Bedside Glucose 128 mg/dL (74-106)
[2024-02-26 08:00] VITALS: BP 127/80; PULSE 73; RESP 18; TEMP 36.3; O2SAT 98
[2024-02-26] MEDS: Insulin Lispro 100 UNIT/ML INSULN.PEN 10 UNIT SC ×3 (08:09→16:07)
[2024-02-26] MEDS: Aspirin E.C. 81 MG Tablet PO (08:09)
[2024-02-26] MEDS: Glucerna Shake 120 ML LIQUID PO (08:09)
--- NOTE | 2024-02-26 08:14 | PN_ITS ---
Subjective Subjective Patient seen early this a.m. with the wound nurse for wound VAC change. Pictures taken today s/p debridement of the Achilles tendon with application of advanced wound care product and application of wound VAC. VAC was intact through the weekend without leak. She continues to offload the left lower extremity with the assistance of a blanket bump. Continues to remain on nonweightbearing status. Continuing IV antibiotics. Denies constitutional symptoms. Denies further complaints. Objective Data Objective Data Vital Signs: Vital Signs Temp Pulse Resp BP Pulse Ox O2 Del Method O2 Flow Rate 97.3 F L 61 16 156/80 H 95 Room Air 2 02/26/24 05:48 02/26/24 05:48 02/26/24 05:48 02/26/24 05:48 02/26/24 05:48 02/26/24 05:48 02/22/24 14:30 Oxygen Flow Rate (L/min) 2 Oxygen Delivery Method Room Air Weight: 96.9 kg Body Mass Index (BMI) 32.4 Intake & Output: Intake and Output for Last 24 Hours 02/24/24 02/25/24 02/26/24 23:59 23:59 23:59 Intake Total 1465 / 1465 300 / 300 Balance 1465 / 1465 300 / 300 Lab / Micro Data 02/24/24 05:31 02/24/24 05:31 Labs: Laboratory Results - last 24 hr 02/25/24 08:21: POC Glucose 133 H 02/25/24 11:33: POC Glucose 140 H 02/25/24 16:27: POC Glucose 160 H 02/25/24 22:35: POC Glucose 141 H 02/26/24 04:40: POC Glucose 146 H 02/26/24 06:38: POC Glucose 128 H Micro: Microbiology 02/22/24 08:00 Wound - Heel, Left Gram Stain - Final 02/22/24 08:00 Wound - Heel, Left Wound Culture - Preliminary Staphylococcus aureus Enterobacter cloacae complex Gram negative elizabeth Physical Exam Const alert, oriented x3 and no apparent distress General Appearance: cooperative Eyes Eyes Narrative: Wears glasses General Eye: normal appearance of both eyes Neck General: normal visual inspection Lymph Lymphatic: no lymphadenopathy noted and no lymphedema noted Resp normal respiratory effort Cardio regular rate and regular rhythm Extremity Extremity Narrative: Left lower extremity: Vascular: DP and PT pulses weakly palpable. CFT less than 5 seconds to the digits. Normal temperature gradient. Hair growth is absent to digits/foot. Neurologic: Decreased protective sensation tested with 5.07g [place] monofilament consistent with diabetic peripheral polyneuropathy. Gross sensation is intact. Light touch sensation diminished. Musculoskeletal: Muscle strength was deferred secondary to previous Achilles tendon surgery Dermatologic: There is an ulceration noted to the posterior aspect of the left lower extremity secondary to surgical dehiscence with significant desquamation of the skin overlying the Achilles tendon with exposure of the Achilles tendon and surgical sutures. Achilles tendon is intact. Healthy bleeding tissue was noted postdebridement. Advanced wound care product in place with wound VAC over the Adaptic. 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: (2) Disruption of internal operation (surgical) wound, not elsewhere classified, initial encounter: (3) Diabetic infection of left foot: (4) Partial tear of left Achilles tendon: (5) Diabetes mellitus with diabetic polyneuropathy: QUALIFIERS: Diabetes mellitus type: type 2 Diabetes mellitus correction insulin use: with longwall machine operator helper use Qualified Code(s): E11.42 - Type 2 diabetes mellitus with diabetic polyneuropathy; Z79.4 - intermediate manager (current) use of insulin (6) Peripheral vascular disease, unspecified: PLAN: Plan Patient seen and evaluated She underwent repair of Achilles tendon tear, tendo Achilles shortening with FHL transfer on 01/26/2024. POD #31 Due to surgical dehiscence secondary to placing weight to the foot she did return to the OR on 02/22/2024 for debridement of necrotic tissue with application of advanced wound care product and application of wound VAC to left lower extremity. Left Lower Extremity: There is an ulceration noted to the posterior aspect of the left lower extremity secondary to surgical dehiscence with significant desquamation of the skin overlying the Achilles tendon with exposure of the Achilles tendon and surgical sutures. Achilles tendon is intact. There is healthy bleeding tissue noted postdebridement. Advanced wound care product was placed on 02/22/2024. Wound VAC is in place over the Adaptic with good seal and no leak detected at 125 mmHg continuous pressure. WBC 6.8, HgbA1c 6.2% on 02/21/24. Patient currently on on Vanco/cefepime due to PCN allergy. Wound VAC was changed 02/26/2024. New wound photographs are in patient's chart from today. Next VAC change 02/28/2024. Wound nurse will continue assisting in VAC changes/dressing changes. Expected VAC changes M, W, F Patient is to remain nonweightbearing to the left lower extremity with the assistance of walker/wheelchair She is to elevate the left lower extremity at all times of rest and is to not have pressure against the posterior aspect of the lower left extremity/Achilles tendon area Patient does have significant neuropathy and lacks adequate sensation from the knee down, however may take oxycodone-acetaminophen 5/325mg as needed for pain. Medicine currently following for medical management, they are greatly appreciated Infectious disease following for IV antibiotic guidance. Possible PICC line due to exposure of the Achilles tendon and positive cultures. Wound nurse following for assistance in dressing changes, she is greatly appreciated. Discussed with patient placement in SNF likely the transitional care unit if possible for continued care and assistance with VAC changes and continued monitoring. Podiatry will continue to follow while in house Jr. Gibran Bustos.P.M. [facility] [phone]
[2024-02-26] MEDS: Losartan Potassium 100 MG Tablet PO (08:15)
[2024-02-26] MEDS: Enoxaparin 40 MG/0.4 ML Syringe SC (08:15)
--- NOTE | 2024-02-26 08:15 | WOUNDNOTE ---
wound photo: left Achilles area
--- NOTE | 2024-02-26 08:15 | WOUNDNOTE ---
wound photo: left plantar heel
[2024-02-26 08:16] VITALS: BP 127/80; PULSE 70
[2024-02-26] MEDS: Metoprolol(XL)Succ 200 MG Tablet PO (08:16)
[2024-02-26] MEDS: Pantoprazole Sodium 40 MG Tablet PO (08:16)
[2024-02-26] MEDS: Paroxetine 20 MG Tablet 40 MG PO (08:18)
[2024-02-26 12:38] LABS: Bedside Glucose 135 mg/dL (74-106)
--- NOTE | 2024-02-26 12:39 | PCM.CONS.GEN ---
Assessment & Plan Assessment/Plan (1) Acute osteomyelitis of left calcaneus: PLAN: Previous surgery was 01/26/24 for tendon repair. No fever, pain was moderate. Taken to OR 02/22/[address] Smith for I&D. Surg cx with mssa, enterobacter, and GNR. Will order picc and 6 weeks iv cefepime with weekly labs, ID followup in 3 weeks. Stop date 04/04/24. Will follow, thank you (2) Diabetes mellitus with diabetic polyneuropathy: QUALIFIERS: Diabetes mellitus type: type 2 Diabetes mellitus alf insulin use: with alf use Qualified Code(s): E11.42 - Type 2 diabetes mellitus with diabetic polyneuropathy; Z79.4 - assisted (current) use of insulin (3) Dehiscence of wound: HPI Consult Data Date of Consult: 02/26/24 HPI Narrative Reason for Consultation: osteo HPI Narrative: REMI TREVINO, is a 58 F with h/o DM, PVD, obesity, presented with worsening over past week of L achilles surgical site. Previous surgery was 01/26/24 for tendon repair. No fever, pain was moderate. Taken to OR 02/22/[address] Smith for I&D. Now on cefepime, feeling ok. No n/v/d. Full ROS performed and neg except as noted above. [facility] Medical History Current use of insulin Post-menopausal Hiatal hernia Back pain due to injury Osteoporosis Sleep apnea Insulin dependent diabetes mellitus Easy bruising Restless legs Difficulty swallowing Tachycardia Smoker Wears dentures Wears glasses Anxiety Iron deficiency Back pain Dietary restriction GERD (gastroesophageal reflux disease) Shortness of breath Asthma CPAP (continuous positive airway pressure) dependence Leg cramping History of pain when walking Edema Cardiology follow-up encounter History of stress test Normal echocardiogram Hypertension Difficulty balancing when standing Asthma Arthritis Fibromyalgia Multinodular thyroid Hypothyroidism Essential (primary) hypertension Hypergammaglobulinemia Hyperlipemia Dermatitis Depression PAD (peripheral artery disease) Other specified peripheral vascular diseases Hammertoe of left foot Skin ulcer of right foot including toes with fat layer exposed Osteomyelitis of toe Morbid obesity with BMI of 40.0-44.9, adult Diabetes type 2, uncontrolled Venous stasis dermatitis of both lower extremities Home Medications ?Medication ?Instructions ?Recorded ?Last Taken ?Type omeprazole 40 mg capsule,delayed 40 mg PO DAILY ACID REFLUX 10/18/18 01/25/24 History release paroxetine HCl 40 mg tablet 40 mg PO DAILY DEPRESSION 10/29/19 02/28/23 History pregabalin 150 mg capsule 150 mg PO TID NERVE PAIN 10/29/19 02/28/23 History aspirin 81 mg tablet,delayed 81 mg PO DAILY HEART HEALTH 07/21/20 01/24/24 History release (Adult Low Dose Aspirin) metoprolol succinate 200 mg 200 mg PO DAILY BLOOD PRESSURE 07/21/20 01/25/24 07:00 History tablet,extended release 24 hr rosuvastatin 40 mg tablet (Crestor) 40 mg PO DAILY CHOLESTEROL 08/26/22 02/28/23 History pen needle, diabetic 32 gauge x #100 ea 02/13/23 Unknown Rx (BD Ultra-Fine Catalina Pen Needle) dapagliflozin propanediol 10 mg 10 mg PO DAILY DIABETES 03/01/23 02/28/23 History tablet (Farxiga) losartan 100 mg tablet 100 mg PO DAILY BLOOD PRESSURE 03/01/23 01/25/24 History blood sugar diagnostic (True #100 ea 03/24/23 Unknown Rx Metrix Glucose Test Strip) glimepiride 4 mg tablet 4 mg PO DAILY #30 tabs 04/10/23 Unknown Rx insulin aspart 10 unit subcut TID #9 mL 05/29/23 Unknown Rx (niacinamide)(U-100) 100 unit/mL(3 mL) subcutaneous pen (Fiasp FlexTouch U-100 Insulin) albuterol sulfate 90 mcg/actuation 1 puff inhalation Q6H PRN PRN 01/19/24 01/26/24 10:00 History aerosol inhaler shortness of breath or wheezing tirzepatide 7.5 mg/0.5 mL 7.5 mg subcut QWEEK 01/19/24 01/15/24 History subcutaneous pen injector (Rex) oxycodone-acetaminophen 5 mg-325 1 tab PO Q8H PRN pain 7 days #28 01/26/24 Unknown Rx mg tablet tabs celecoxib 200 mg capsule 200 mg PO DAILY 02/21/24 Unknown History doxepin 25 mg capsule 25 mg PO QHS 02/21/24 Unknown History levothyroxine 150 mcg tablet 150 mcg PO DAILY 02/21/24 Unknown History montelukast 10 mg tablet 10 mg PO DAILY 02/21/24 Unknown History ondansetron 4 mg disintegrating 4 mg PO Q8H PRN nausea and vomiting 02/21/24 Unknown History tablet potassium chloride 20 mEq 20 meq PO DAILY 02/21/24 Unknown History tablet,extended release(part/cryst) (Klor-Con M) trazodone 150 mg tablet 150 mg PO QHS 02/21/24 Unknown History cefepime 2 gram solution for 2 g IV Q8 38 days #114 ea 02/26/24 Unknown Rx injection Allergy/AdvReac Type Severity Reaction Status Date / Time piperacillin (From Zosyn) Allergy Severe Anaphylaxis Verified 02/21/24 16:47 tazobactam (From Zosyn) Allergy Severe Anaphylaxis Verified 02/21/24 16:47 sulfamethoxazole (From Allergy Unknown Anaphylaxis Verified 02/21/24 16:47 Bactrim) trimethoprim (From Bactrim) Allergy Unknown Anaphylaxis Verified 02/21/24 16:47 latex Allergy Rash Verified 02/21/24 16:47 pyrethrins Allergy Anaphylaxis Verified 02/21/24 16:47 tetanus and diphtheria Allergy Anaphylaxis Verified 02/21/24 16:47 toxoids (Tetanus&Diphtheria Toxoid) Family History Mother Diabetes Dementia Father Diabetes Myocardial infarction Surgical History Hx of toe surgery History of partial ray amputation of fifth toe of right foot Hx of total knee arthroplasty History of nasal septoplasty History of cholecystectomy History of thyroidectomy H/O arthroscopic knee surgery (11/2019) H/O amputation of lesser toe (05/05/17) Social History household members: none Smoking Status: Current every day smoker tobacco type: cigarettes alcohol intake: current alcohol intake frequency: holidays/special occasions only substance use type: does not use Physical Exam Const alert, oriented x3 and no apparent distress General Appearance: cooperative HEENT normocephalic and head/scalp atraumatic Eyes PERRL and EOMs intact bilaterally Neck supple and No nodes Resp normal air movement and clear to auscultation bilaterally Cardio regular rate and regular rhythm GI soft to palpation, non-tender and non-distended Extremity General Extremity: edema Skin Skin Narrative: reviewed wound photos Neuro CN's II-XII intact bilaterally Lab / Micro Data Attestation: I reviewed the patient's lab results. 02/24/24 05:31 02/24/24 05:31 Labs: Laboratory Results - last 24 hr 02/25/24 11:33: POC Glucose 140 H 02/25/24 16:27: POC Glucose 160 H 02/25/24 22:35: POC Glucose 141 H 02/26/24 04:40: POC Glucose 146 H 02/26/24 06:38: POC Glucose 128 H 02/26/24 12:05: POC Glucose 135 H Micro: Microbiology 02/22/24 08:00 Wound - Heel, Left Gram Stain - Final 02/22/24 08:00 Wound - Heel, Left Wound Culture - Preliminary Staphylococcus aureus Enterobacter cloacae complex Gram negative elizabeth
--- NOTE | 2024-02-26 14:51 | TREXTCAR_ITS ---
Diet Diet Order/Speech Therapy: 02/22/24 15:16 Carb [Diet: Carbohydrate Controlled] Is pt able to select menu?: Yes Routine Orders/Code Status Routine Lab Work: CBC and BMP Code Status: Full Code Wound(s) left heel: Wound Type: Pressure Injury back of left achilles leg: Wound Type: Neuropathic/Diabetic Foot Ulcer left Achilles heel: Wound Type: Neuropathic/Diabetic Foot Ulcer Dressing Change: KCI wound VAC Therapies Weight Bearing: Non weight bearing Extremity Affected:: Left Lower Problem/Diagnosis (1) Acute osteomyelitis of left calcaneus: Status: Acute Code(s): M86.172 - Other acute osteomyelitis, left ankle and foot (2) Diabetes mellitus with diabetic polyneuropathy: Status: Chronic Code(s): E11.42 - Type 2 diabetes mellitus with diabetic polyneuropathy (3) Dehiscence of wound: Status: Acute Code(s): T81.30XA - Disruption of wound, unspecified, initial encounter Plan Left Calcaneal osteomyelitis * noted on ankle xray. ESR 63 and CRP of 25.9. * pt had repair of Achilles tendon tear left foot, tendo Achilles shortening/advancement left foot, flexor hallux longus tendon transfer left foot, debridement of Achilles tendon and tenosynovitis of the left foot on January 25. * But a week or 2 prior to presentation here, she hit something and had wound that developed and started bleeding. When she followed up with podiatry on the , she was directed to the emergency room. * Will DC Ancef and vancomycin and transition to cefepime as she has MSSA previous cultures with Pseudomonas and she has an unidentified gram-negative elizabeth at the moment, awaiting finalization of culture * Podiatry took patient to OR 02/21: Surgery performed: I+D, debridement of ulceration and necrotic tissue to the level of the Achilles tendon/musculotendinous junction. Application of wound vac. * Consult infectious disease for long-term IV antibiotic recommendations on Monday Type 2 diabetes with diabetic foot ulcer with neuropathy * Continue home insulin aspart 10 units subcu 3 times daily and glimepiride * Not a basal insulin. * A1c is 6.2 * Continue with Lyrica Insomnia * Patient takes trazodone nightly. Chronic conditions: * Hypertension -losartan 100 mg daily-Metoprolol succinate 200 mg daily * Hypothyroidism: levothyroxine * GERD: Continue omeprazole 40 daily * Anxiety/depression: Paroxetine 40 mg daily DVT: Lovenox Allergies/Procedures Done in Hospital Allergies piperacillin (From Zosyn) Allergy (Severe, Verified 02/21/24 16:47) Anaphylaxis tazobactam (From Zosyn) Allergy (Severe, Verified 02/21/24 16:47) Anaphylaxis sulfamethoxazole (From Bactrim) Allergy (Unknown, Verified 02/21/24 16:47) Anaphylaxis trimethoprim (From Bactrim) Allergy (Unknown, Verified 02/21/24 16:47) Anaphylaxis latex Allergy (Verified 02/21/24 16:47) Rash pyrethrins Allergy (Verified 02/21/24 16:47) Anaphylaxis Flea medications tetanus and diphtheria toxoids (Tetanus&Diphtheria Toxoid) Allergy (Verified 02/21/24 16:47) Anaphylaxis Type of Care/Length of Stay Estimated LOS: Convalescent Care Less Than 30 days Type of Care Needed: Skilled Rehab Potential: Good Prognosis: Good Additional Orders/Day of Discharge Day of Discharge: 02/26/24 Dietary and Speech Recommendations Dietitian Recommendations/Changes: Continue CHO Control diet as ordered Will d/c glucerna shake w/ meals as po intake good and instead, order Drew bid w/ medpass to help wound healing. Discharge Plan Admission Admit Date/Time: 02/21/24 18:59 Attending Provider: Macario Tyler Primary Care Provider: Gulshan Early Chi Consulting Providers: FABI VALDEZ; Joni Hedrick; Victorino Mixon; Pérez Ayala Discharge Orders/Prescriptions Prescriptions: New cefepime 2 gram Recon Soln 2 g IV Q8 38 Days Qty: 114 0RF Rx Instructions: stop date 04/04/24. dx: ankle osteo. Weekly bmp, cbc, and esr. Fax to [phone] routine picc care per protocol Continued omeprazole 40 mg capsule,delayed release(DR/EC) 40 mg PO DAILY aspirin [Adult Low Dose Aspirin] 81 mg tablet,delayed release (DR/EC) 81 mg PO DAILY metoprolol succinate 200 mg tablet extended release 24 hr 200 mg PO DAILY (DME) pen needle, diabetic [BD Ultra-Fine [place] Pen Needle] 32 gauge x 5/32 needle See Rx Instructions .Route Qty: 100 3RF Rx Instructions: daily Fiasp FlexTouch U-100 Insulin 100 unit/mL (3 mL) insulin pen 10 unit subcut TID Qty: 9 5RF (DME) True Metrix Glucose Test Strip Strip See Rx Instructions .Route Qty: 100 6RF Rx Instructions: three times dailyl glimepiride 4 mg tablet 4 mg PO DAILY Qty: 30 6RF paroxetine HCl 40 MG tablet 40 mg PO DAILY pregabalin 150 MG capsule 150 mg PO TID rosuvastatin [Crestor] 40 mg Tablet 40 mg PO DAILY losartan 100 mg tablet 100 mg PO DAILY dapagliflozin propanediol [Farxiga] 10 mg tablet 10 mg PO DAILY albuterol sulfate 90 mcg/actuation HFA aerosol inhaler 1 puff inhalation Q6H PRN PRN (Reason: shortness of breath or wheezing) Mounjaro 7.5 mg/0.5 mL pen injector 7.5 mg subcut QWEEK oxycodone-acetaminophen 5-325 mg tablet 1 tab PO Q8H PRN (Reason: pain) 7 Days Qty: 28 0RF celecoxib 200 mg capsule 200 mg PO DAILY doxepin 25 mg capsule 25 mg PO QHS potassium chloride [Klor-Con M20] 20 mEq Tablet,Er Particles/Crystals 20 meq PO DAILY trazodone 150 mg tablet 150 mg PO QHS levothyroxine 150 mcg tablet 150 mcg PO DAILY montelukast 10 mg tablet 10 mg PO DAILY ondansetron 4 mg tablet,disintegrating 4 mg PO Q8H PRN (Reason: nausea and vomiting) Referrals / Follow Up: Gulshan Early Chi, MD [Primary Care Provider] - Disposition Disposition (needs filled in before D/C Order can be placed): Senior Living Facility (2) Diabetes mellitus with diabetic polyneuropathy Qualifiers: Diabetes mellitus type: type 2 Diabetes mellitus extermination supervisor insulin use: with extermination supervisor use Qualified Code(s): E11.42 - Type 2 diabetes mellitus with diabetic polyneuropathy; Z79.4 - medical terminologist (current) use of insulin
[2024-02-26] MEDS: 0.9% Saline Lock 10 ML Syringe IV (15:08)
--- NOTE | 2024-02-26 15:09 | PCM.DC.SUM ---
Providers Date of Admission: 02/21/24 Primary Care Physician: Dr. Gulshan Early MD Consultations 02/21/24 19:50 Consult: Podiatry Routine Consulting Provider: FABI VALDEZ Reason for Consult: osteomyelitis EMERGENT Consult: Yes MD Notified: Yes Date Notified: 02/21/24 Time Notified: 19:05 Method of Notification: ED Physician Initiated 02/21/24 20:26 Consult: Onc/Wound/family services worker Routine Comment: 02/22/24 07:47 Consult: Infectious Disease Routine Consulting Provider: Victorino Mixon Reason for Consult: calcaneal osteomyelitis EMERGENT Consult: No MD Notified: Yes Date Notified: 02/22/24 Time Notified: 10:04 Method of Notification: Text Reason For Visit: LEFT ANKLE OSTEOMYELITIS Diagnosis Discharge Diagnosis (1) Acute osteomyelitis of left calcaneus: Status: Acute Code(s): M86.172 - Other acute osteomyelitis, left ankle and foot (2) Diabetes mellitus with diabetic polyneuropathy: Status: Chronic Code(s): E11.42 - Type 2 diabetes mellitus with diabetic polyneuropathy Qualifiers: Diabetes mellitus type: type 2 Diabetes mellitus long-term insulin use: with long-term use Qualified Code(s): E11.42 - Type 2 diabetes mellitus with diabetic polyneuropathy; Z79.4 - snf (current) use of insulin (3) Dehiscence of wound: Status: Acute Code(s): T81.30XA - Disruption of wound, unspecified, initial encounter Medications at Discharge Home Medications omeprazole 40 mg capsule,delayed release 40 mg PO DAILY ACID REFLUX 10/18/18 paroxetine HCl 40 mg tablet 40 mg PO DAILY DEPRESSION 10/29/19 pregabalin 150 mg capsule 150 mg PO TID NERVE PAIN 10/29/19 aspirin 81 mg tablet,delayed release (Adult Low Dose Aspirin) 81 mg PO DAILY HEART HEALTH 07/21/20 metoprolol succinate 200 mg tablet,extended release 24 hr 200 mg PO DAILY BLOOD PRESSURE 07/21/20 rosuvastatin 40 mg tablet (Crestor) 40 mg PO DAILY CHOLESTEROL 08/26/22 pen needle, diabetic 32 gauge x 5/32 (BD Ultra-Fine Catalina Pen Needle) #100 ea 02/13/23 dapagliflozin propanediol 10 mg tablet (Farxiga) 10 mg PO DAILY DIABETES 03/01/23 losartan 100 mg tablet 100 mg PO DAILY BLOOD PRESSURE 03/01/23 blood sugar diagnostic (True Metrix Glucose Test Strip) #100 ea 03/24/23 glimepiride 4 mg tablet 4 mg PO DAILY #30 tabs 04/10/23 insulin aspart (niacinamide)(U-100) 100 unit/mL(3 mL) subcutaneous pen (Fiasp FlexTouch U-100 Insulin) 10 unit subcut TID #9 mL 05/29/23 albuterol sulfate 90 mcg/actuation aerosol inhaler 1 puff inhalation Q6H PRN PRN shortness of breath or wheezing 01/19/24 tirzepatide 7.5 mg/0.5 mL subcutaneous pen injector (Mounjaro) 7.5 mg subcut QWEEK 01/19/24 oxycodone-acetaminophen 5 mg-325 mg tablet 1 tab PO Q8H PRN pain 7 days #28 tabs 01/26/24 celecoxib 200 mg capsule 200 mg PO DAILY 02/21/24 doxepin 25 mg capsule 25 mg PO QHS 02/21/24 levothyroxine 150 mcg tablet 150 mcg PO DAILY 02/21/24 montelukast 10 mg tablet 10 mg PO DAILY 02/21/24 ondansetron 4 mg disintegrating tablet 4 mg PO Q8H PRN nausea and vomiting 02/21/24 potassium chloride 20 mEq tablet,extended release(part/cryst) (Klor-Con M) 20 meq PO DAILY 02/21/24 trazodone 150 mg tablet 150 mg PO QHS 02/21/24 cefepime 2 gram solution for injection 2 g IV Q8 38 days #114 ea 02/26/24 Hospital Course Operations - (1. I&D left lower extremity 2. Debridement of ulceration and necrotic tissue to the level of the Achilles tendon/musculotendinous junction left lower extremity 3. Application of advanced wound care product left lower extremity 4. 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 She underwent a primary repair of her Achilles tendon tear of the left foot on 01/26/2024 and was scheduled for an outpatient follow-up today. She reports some pain over the site and recurrent bleeding on light touch. No fever no nausea no vomiting no other active concerns. In the ED, Blood pressure 130s/67 pulse 67 temperature 98.8, WBC 6.8, hemoglobin 11.1, ESR 63, sodium 141, CRP 25.9. X-ray ankle showed early changes of acute osteomyelitis of the posterior calcaneus. She was started on cefepime in the ED. Hospital Course: 1. Left calcaneal osteomyelitis status postsurgical intervention on 02/22/2024?58-year-old female presented to the hospital with left lower extremity ankle and foot wound she had undergone a primary repair of the Achilles tendon of her left foot on 01/26/2024 and now she is found to have osteomyelitis. She was placed on broad-spectrum antibiotics and cultures are demonstrating MSSA as well as an Enterobacter and as of yet another unidentified gram-negative elizabeth. Infectious disease was consulted and recommended transitioning to cefepime, no further leukocytosis or fevers during her hospitalization. A1c on admission is 6.2 so we will continue with her home blood sugar medications. She will be nonweightbearing on the left lower extremity and will need SNF placement. I discussed with her the plan for discharge today she expressed understanding of the risk benefits of going to the senior care and would like to go today. 2. Type 2 diabetes with diabetic foot ulcers and neuropathy, insomnia, essential hypertension, hypothyroidism, GERD, anxiety, depression all chronic medical conditions which complicate her care. Her home medications were continued where appropriate Physical Exam Narrative General: Alert, Oriented x3, Cooperative, No apparent distress HEENT: Atraumatic, PERRLA, EOMI, Normocephalic Oral: Moist Mucosa Neck: Supple, No JVD Lungs: Clear to auscultation, Normal air movement, No rhonchi, No wheeze, No rales Cardiovascular: Regular rate, Regular Rhythm, Normal S1, Normal S2, No murmurs Abdomen: Soft, Non Tender, Non-Distended, No Hepato-splenomegaly Extremities: No edema, Capillary Refill Less than 3 Seconds Skin: Left lower extremity wound dressed, intact and clean Musculoskeletal: No Tenderness to Palpation of Joints or Extremities Neurological: No focal neurological deficits, Motor Exam 5/5 strength throughout, Sensory exam intact to light touch and pain Psych/Mental Status: Normal Affect, Appropriate Weight / BMI Weight Weight: 213 lb 10.047 oz Body Mass Index (BMI) 32.4 ABG / Lab / Microbiology Data 02/24/24 05:31 02/24/24 05:31 Laboratory: Laboratory Results - last 24 hr 02/25/24 16:27: POC Glucose 160 H 02/25/24 22:35: POC Glucose 141 H 02/26/24 04:40: POC Glucose 146 H 02/26/24 06:38: POC Glucose 128 H 02/26/24 12:05: POC Glucose 135 H Microbiology: Microbiology 02/22/24 08:00 Wound - Heel, Left Gram Stain - Final 02/22/24 08:00 Wound - Heel, Left Wound Culture - Preliminary Staphylococcus aureus Enterobacter cloacae complex Gram negative elizabeth Meaningful Use Info Meaningful Use Meaningful Use Diagnoses (Choose all that apply): None applicable Ischemic Stroke Statin Dosing Therapy Reference: STATIN DOSE THERAPY REFERENCE: * Patients > 75 years receive moderate or high dose statin therapy. * Patients 75 years or YOUNGER should receive HIGH intensity statin dose unless contraindicated. You will be required to document reason for non-treatment if statin daily dose does not meet guidelines. HIGH DOSE STATIN THERAPY DAILY Atorvastatin > than or = to 40 mg Rosuvastatin > than or = to 20 mg Amlodipine + Atorvastatin > than or = to 2.5/40 mg Ezetimibe + Simvastatin 10/80 mg Simvastatin 80mg Discharge Plan Admission Admit Date/Time: 02/21/24 18:59 Attending Provider: Macario Tyler Primary Care Provider: Gulshan Early Chi Consulting Providers: FABI VALDEZ; Joni Hedrick; Victorino Mixon; Pérez Ayala Discharge Orders/Prescriptions Prescriptions: New cefepime 2 gram Recon Soln 2 g IV Q8 38 Days Qty: 114 0RF Rx Instructions: stop date 04/04/24. dx: ankle osteo. Weekly bmp, cbc, and esr. Fax to [phone] routine picc care per protocol Continued omeprazole 40 mg capsule,delayed release(DR/EC) 40 mg PO DAILY aspirin [Adult Low Dose Aspirin] 81 mg tablet,delayed release (DR/EC) 81 mg PO DAILY metoprolol succinate 200 mg tablet extended release 24 hr 200 mg PO DAILY (DME) pen needle, diabetic [BD Ultra-Fine Catalina Pen Needle] 32 gauge x 5/32 needle See Rx Instructions .Route Qty: 100 3RF Rx Instructions: daily Fiasp FlexTouch U-100 Insulin 100 unit/mL (3 mL) insulin pen 10 unit subcut TID Qty: 9 5RF (DME) True Metrix Glucose Test Strip Strip See Rx Instructions .Route Qty: 100 6RF Rx Instructions: three times dailyl glimepiride 4 mg tablet 4 mg PO DAILY Qty: 30 6RF paroxetine HCl 40 MG tablet 40 mg PO DAILY pregabalin 150 MG capsule 150 mg PO TID rosuvastatin [Crestor] 40 mg Tablet 40 mg PO DAILY losartan 100 mg tablet 100 mg PO DAILY dapagliflozin propanediol [Farxiga] 10 mg tablet 10 mg PO DAILY albuterol sulfate 90 mcg/actuation HFA aerosol inhaler 1 puff inhalation Q6H PRN PRN (Reason: shortness of breath or wheezing) Mounjaro 7.5 mg/0.5 mL pen injector 7.5 mg subcut QWEEK oxycodone-acetaminophen 5-325 mg tablet 1 tab PO Q8H PRN (Reason: pain) 7 Days Qty: 28 0RF celecoxib 200 mg capsule 200 mg PO DAILY doxepin 25 mg capsule 25 mg PO QHS potassium chloride [Klor-Con M20] 20 mEq Tablet,Er Particles/Crystals 20 meq PO DAILY trazodone 150 mg tablet 150 mg PO QHS levothyroxine 150 mcg tablet 150 mcg PO DAILY montelukast 10 mg tablet 10 mg PO DAILY ondansetron 4 mg tablet,disintegrating 4 mg PO Q8H PRN (Reason: nausea and vomiting) Referrals / Follow Up: Gulshan Early Chi, MD [Primary Care Provider] - Disposition Disposition (needs filled in before D/C Order can be placed): Jail Facility Charges/Coding Visit Charges Inpatient E&M: 81589 Disch Hosp >30min
[2024-02-26] MEDS: Juven (unflavored) Packet 1 PACKET PO (16:08)
--- NOTE | 2024-02-26 16:09 | CASEMGMT ---
Social Work- Pt was determined to be medically ready for d/c. SW forwarded OZIEL and med list to TCU. MALIA notified pt and bedside nurse. MIGUELINA Sorto
[2024-02-26 17:02] VITALS: BP 151/63; PULSE 78; RESP 18; TEMP 36.8; O2SAT 98
[2024-02-26 18:32] LABS: Bedside Glucose 146 mg/dL (74-106)
== END 2024-02-26 18:03 | disposition skilled nursing facility (03) | DRG 638 ==
LOC: ED 18:34 → MS3 19:31
PROVIDERS: Anesthesiology; Internal Medicine Infectious Disease; Student in an Organized Health Care Education/Training Program; Admitting Provider Internal Medicine; Emergency Provider Emergency Medicine; PCP Family Medicine Geriatric Medicine; Visit Provider Family Medicine
PROC: 0HBLXZZ Excision of Left Lower Leg Skin, External Approach (ICD-10-PCS; principal; 2024-02-22 12:45)
DX: E11.69 Type 2 diabetes mellitus with other specified complication (principal); T81.32XA Disruption of internal operation (surgical) wound, not elsewhere classified, initial encounter; L97.213 Non-pressure chronic ulcer of right calf with necrosis of muscle; L97.423 Non-pressure chronic ulcer of left heel and midfoot with necrosis of muscle; L03.116 Cellulitis of left lower limb; M86.172 Other acute osteomyelitis, left ankle and foot; E11.42 Type 2 diabetes mellitus with diabetic polyneuropathy; E03.9 Hypothyroidism, unspecified; B96.5 Pseudomonas (aeruginosa) (mallei) (pseudomallei) as the cause of diseases classified elsewhere; E11.621 Type 2 diabetes mellitus with foot ulcer; E11.51 Type 2 diabetes mellitus with diabetic peripheral angiopathy without gangrene; E11.628 Type 2 diabetes mellitus with other skin complications; Z79.4 Long term (current) use of insulin; I10 Essential (primary) hypertension; F32.A Depression, unspecified; E78.5 Hyperlipidemia, unspecified; F17.200 Nicotine dependence, unspecified, uncomplicated; K21.9 Gastro-esophageal reflux disease without esophagitis; M81.8 Other osteoporosis without current pathological fracture; Z79.82 Long term (current) use of aspirin; Z79.84 Long term (current) use of oral hypoglycemic drugs; G47.00 Insomnia, unspecified
CPT/HCPCS: 36415; 36569; 73610; 80048; 80053; 80202; 82248; 82962; 83036; 83605; 83735; 84100; 84443; 85025; 85610; 85652; 86140; 87070; 87077; 87186; 87205; 93005; 97110; 97162; 97166; 97530; 97535; 97802; 99284; 99406; J7040; J7050; J7120; A4216; J2405

== ENCOUNTER 2024-02-26 18:15 | Inpatient (IN) | payer MEDICARE, MEDICAID, SELFPAY ==
[2024-02-26 19:49] VITALS: BMI 33.3
[2024-02-26 20:08] VITALS: BP 117/70; PULSE 60; RESP 16; TEMP 36.1; O2SAT 94
--- NOTE | 2024-02-26 20:39 | PCM.HP.STD ---
HPI - General General Date of Admission: 02/26/24 Date of Service: 02/27/24 Chief Complaint: Here for rehabilitation, intravenous antibiotics. HPI Narrative 02/21/2024 REMI TREVINO, is a 58 Female who presents to [facility] ED with wound. Had left achilles foot surgery 3.[address] Smith. 1-2 weeks ago, stepped funny, left foot bleeding. Dr. Smith referred her to ER, left foot needs grafting. Fever, chills, myalgias. X-ray left posterior heel showed osteomyelitis, CRP elevated, ESR elevated. Vancomycin, Cefepime iv given. 02/21/2024 Admit [facility]. Cefazolin 1gm iv q8, podiatry consult left heel osteomyelitis. Lovenox 40ms sc daily dvt prophylaxis. 02/22/2024 No pain with left food injury 2/2 diabetic polyneuropathy.. Cefazolin, Vancomycin left foot/heel osteomyelitis. Consult ID for iv antibiotic coverage. 02/22/2024 Dr. Smith performed incision and drainage left lower extremity, debridement left achilles tendon. Application of wound care product, Application wound VAC left lower extremity. 02/23/2024 Feels well, Did not sleep well. Continue Cefazolin, Vancomycin for diabetic left heel osteomyelitis. Minimize screen time use to help with insomnia. 02/23/2024 Wound VAC change 02/26/2024. [facility]TCU upon discharge. Surgical culture growing staph aureus, gram negative elizabeth. 02/24/2024 Doing well. Previous culture growing MSSA, Pseudomonas. Stop Cefazolin, Vancomycin, start Cefepime. 02/25/2024 Doing well. Await final culture results. 02/26/2024 Dr. Mixon surgical cultures growing MSSA, enterobacter, GNR. Cefepime iv x 6 weeks via PICC, stop date 04/04/2024. ID f/u 3 weeks. 02/26/2024 Admit to TCU with debility, here for rehabilitation, strengthening, intravenous antibiotics, prior to discharge home alone. [facility] Medical History Current use of insulin Post-menopausal Hiatal hernia Back pain due to injury Osteoporosis Sleep apnea Insulin dependent diabetes mellitus Easy bruising Restless legs Difficulty swallowing Tachycardia Smoker Wears dentures Wears glasses Anxiety Iron deficiency Back pain Dietary restriction GERD (gastroesophageal reflux disease) Shortness of breath Asthma CPAP (continuous positive airway pressure) dependence Leg cramping History of pain when walking Edema Cardiology follow-up encounter History of stress test Normal echocardiogram Hypertension Difficulty balancing when standing Asthma Arthritis Fibromyalgia Multinodular thyroid Hypothyroidism Essential (primary) hypertension Hypergammaglobulinemia Hyperlipemia Dermatitis Depression PAD (peripheral artery disease) Other specified peripheral vascular diseases Hammertoe of left foot Skin ulcer of right foot including toes with fat layer exposed Osteomyelitis of toe Morbid obesity with BMI of 40.0-44.9, adult Diabetes type 2, uncontrolled Venous stasis dermatitis of both lower extremities Home Medications ?Medication ?Instructions ?Recorded ?Last Taken ?Type omeprazole 40 mg capsule,delayed 40 mg PO DAILY ACID REFLUX 10/18/18 02/26/24 History release paroxetine HCl 40 mg tablet 40 mg PO DAILY DEPRESSION 10/29/19 02/26/24 History pregabalin 150 mg capsule 150 mg PO TID NERVE PAIN 10/29/19 02/26/24 History aspirin 81 mg tablet,delayed 81 mg PO DAILY HEART HEALTH 07/21/20 02/26/24 08:10 History release (Adult Low Dose Aspirin) metoprolol succinate 200 mg 200 mg PO DAILY BLOOD PRESSURE 07/21/20 02/26/24 History tablet,extended release 24 hr rosuvastatin 40 mg tablet (Crestor) 40 mg PO DAILY CHOLESTEROL 08/26/22 02/25/24 History pen needle, diabetic 32 gauge x #100 ea 02/13/23 Unknown Rx (BD Ultra-Fine Catalina Pen Needle) dapagliflozin propanediol 10 mg 10 mg PO DAILY DIABETES 03/01/23 02/28/23 History tablet (Farxiga) losartan 100 mg tablet 100 mg PO DAILY BLOOD PRESSURE 03/01/23 02/26/24 History blood sugar diagnostic (True #100 ea 03/24/23 Unknown Rx Metrix Glucose Test Strip) glimepiride 4 mg tablet 4 mg PO DAILY diabetes #30 tabs 04/10/23 Unknown Rx insulin aspart 10 unit subcut TID diabetes #9 mL 05/29/23 02/26/24 Rx (niacinamide)(U-100) 100 unit/mL(3 mL) subcutaneous pen (Fiasp FlexTouch U-100 Insulin) albuterol sulfate 90 mcg/actuation 1 puff inhalation Q6H PRN PRN 01/19/24 01/26/24 10:00 History aerosol inhaler shortness of breath or wheezing tirzepatide 7.5 mg/0.5 mL 7.5 mg subcut QWEEK diabetes 01/19/24 01/15/24 History subcutaneous pen injector (Rex) oxycodone-acetaminophen 5 mg-325 1 tab PO Q8H PRN pain 7 days #28 01/26/24 02/26/24 Rx mg tablet tabs celecoxib 200 mg capsule 200 mg PO DAILY pain 02/21/24 Unknown History doxepin 25 mg capsule 25 mg PO QHS sleep 02/21/24 Unknown History levothyroxine 150 mcg tablet 150 mcg PO DAILY hypothyroid 02/21/24 Unknown History montelukast 10 mg tablet 10 mg PO DAILY allergies/asthma 02/21/24 Unknown History ondansetron 4 mg disintegrating 4 mg PO Q8H PRN nausea and vomiting 02/21/24 02/21/24 History tablet potassium chloride 20 mEq 20 meq PO DAILY potassium 02/21/24 Unknown History tablet,extended supplement release(part/cryst) (Klor-Con M) trazodone 150 mg tablet 150 mg PO QHS sleep 02/21/24 Unknown History cefepime 2 gram solution for 2 g IV Q8 wound infection 38 days 02/26/24 02/26/24 Rx injection #114 ea Allergy/AdvReac Type Severity Reaction Status Date / Time piperacillin (From Zosyn) Allergy Severe Anaphylaxis Verified 02/21/24 16:47 tazobactam (From Zosyn) Allergy Severe Anaphylaxis Verified 02/21/24 16:47 sulfamethoxazole (From Allergy Unknown Anaphylaxis Verified 02/21/24 16:47 Bactrim) trimethoprim (From Bactrim) Allergy Unknown Anaphylaxis Verified 02/21/24 16:47 latex Allergy Rash Verified 02/21/24 16:47 pyrethrins Allergy Anaphylaxis Verified 02/21/24 16:47 tetanus and diphtheria Allergy Anaphylaxis Verified 02/21/24 16:47 toxoids (Tetanus&Diphtheria Toxoid) Family History Mother Diabetes Dementia Father Diabetes Myocardial infarction Surgical History Hx of toe surgery History of partial ray amputation of fifth toe of right foot Hx of total knee arthroplasty History of nasal septoplasty History of cholecystectomy History of thyroidectomy H/O arthroscopic knee surgery (11/2019) H/O amputation of lesser toe (05/05/17) Social History household members: none Smoking Status: Current every day smoker tobacco type: cigarettes alcohol intake: current alcohol intake frequency: holidays/special occasions only substance use type: does not use ROS Constitutional Constitutional: Reports weakness; Denies chills, fever(s) or weight gain ENT HEENT: Denies headache(s), nasal congestion or nasal discharge Cardiovascular Cardiovascular: Denies chest pain or palpitations Respiratory/Chest Respiratory/Chest: Denies cough, excessive phlegm production or shortness of breath with exertion Gastrointestinal Gastrointestinal: Denies abdominal pain, nausea or vomiting Genitourinary Genitourinary: Denies dysuria Musculoskeletal Musculoskeletal: Denies joint pain or joint swelling Integumentary Integumentary: Denies rash or wounds Neurologic Neurologic: Denies focal weakness, numbness or tingling Psychiatric Psychiatric: Denies anxiety, auditory hallucinations, depression, homicidal ideation or suicidal ideation Vital Signs Vital Signs Vital Signs: 02/26/24 20:08 Temperature 97 F L Temperature Source Temporal Pulse Rate 60 Respiratory Rate 16 Blood Pressure 117/70 Blood Pressure Mean 85 Blood Pressure Source Monitor Blood Pressure Position Sitting Blood Pressure Location Left Arm Pulse Ox 94 Oxygen Delivery Method Room Air Weight Weight: 99.45 kg Body Mass Index (BMI) 0.0 Physical Exam Const alert General Appearance: cooperative HEENT normocephalic Eyes PERRL and EOMs intact bilaterally Neck supple, no JVD and no carotid bruits Resp normal respiratory effort, normal air movement and clear to auscultation bilaterally Cardio regular rate and regular rhythm GI normal to inspection, nondistended, normoactive bowel sounds, non-tender and non-distended Extremity normal capillary refill Extremity Narrative: Left foot dressed, wound VAC in place. PICC right upper extremity. General Extremity: Negative for edema Skin no rashes or lesions noted General Skin Exam: no breakdown Psych affect normal Appearance: appropriate Results Lab / Micro Data 02/27/24 05:22 02/27/24 05:22 Assessment & Plan Assessment/Plan (1) Debility: (2) Diabetic infection of left foot: (3) Acute osteomyelitis of left calcaneus: (4) Diabetes mellitus with diabetic polyneuropathy: QUALIFIERS: Diabetes mellitus skilled nursing insulin use: with continuous churn buttermaker use Diabetes mellitus type: type 2 Qualified Code(s): E11.42 - Type 2 diabetes mellitus with diabetic polyneuropathy; Z79.4 - alf (current) use of insulin (5) Type 2 diabetes mellitus with hyperglycemia: (6) GERD (gastroesophageal reflux disease): (7) Depression: (8) Hyperlipidemia: (9) Essential (primary) hypertension: (10) Osteoarthritis: (11) Insomnia: (12) Hypothyroidism: QUALIFIERS: Hypothyroidism type: unspecified Qualified Code(s): E03.9 - Hypothyroidism, unspecified (13) Asthma: (14) Hypokalemia: PLAN: Plan 58 year old female with below past medical history significant for Type 2 Diabetes Mellitus hospitalized for osteomyelitis left heel, underwent debridement 02/22/[address] Smith, admitted to TCU with debility, here for rehabilitation, strengthening, intravenous antibiotics, prior to discharge alone. Debility - PT/OT. Pain - Tylenol 1000mg q6 prn pain (1-3), Tramadol 50mg q6 prn pain (4-5), Oxycodone 5mg q4 prn pain (6-10). Bowel - senna/colace 2 tablets bid, Magnesium citrate 300ml daily prn. Adult immunization - Administer pneumonia vaccine, covid vaccine, flu vaccine as appropriate. DVT prophylaxis - Lovenox 40mg sc daily. Asthma - Singulair 10mg daily, Albuterol 1 puff q6 prn. CV prophylaxis - Aspirin 81mg daily. Left heel osteomyelitis s/p debridement - Cefepime 2gm iv q8 thru 04/04/2024, Juvien 1 packet bidcm, consult Dr. Smith, consult Dr. Mixon to follow. Diabetes Mellitus II - Glimepiride 4mg daily, Farxiga 10mg daily, Lispro 10 units tid, Mounjaro 7.5mg per week. Insomnia - Trazodone 150mg qhs, Doxepin 25mg qhs, stable chronic continuous churn buttermaker use, GDR not recommended. Hypothyroidism - Levothyroxine 150mcg daily. Hypertension - Metoprolol succinate 200mg daily, Losartan 100mg daily. Nausea - Zofran odt 4mg q8h prn. GERD - Pantoprazole 40mg daily. Depression - Paroxetine 40mg daily, stable chronic continuous churn buttermaker use, GDR not recommended. Hypokalemia - KCL 20meq daily. Diabetic polyneuropathy - Lyrica 150mg tid. Hyperlipidemia - Rosuvastatin 40mg qhs.
[2024-02-26 21:39] LABS: Bedside Glucose 138 mg/dL (74-106)
[2024-02-26] MEDS: oxyCODONE 5 MG Tablet PO (23:13)
[2024-02-26] MEDS: traZODone 50 MG Tablet 150 MG PO (23:14)
[2024-02-26] MEDS: Senna/Docusate Sodium 1 Tablet 2 TABLET PO (23:14)
[2024-02-26] MEDS: Atorvastatin Calcium 80 MG Tablet PO (23:14)
[2024-02-26] MEDS: Pregabalin 75 MG Capsule 150 MG PO (23:14)
[2024-02-26] MEDS: Doxepin Hcl 25 MG Capsule PO (23:14)
[2024-02-26] MEDS: 0.9% Normal Saline (250mL Bag) 250 ML 15 ML IV (23:15)
[2024-02-26] MEDS: 0.9% Saline Lock 10 ML Syringe IV (23:15)
[2024-02-26] MEDS: Cefepime HCl 2 GM in 0.9% NS 100 ML Minibag Q8 IV (23:15)
[2024-02-27 06:04] LABS: Absolute Lymphocyte Count 1.71 X10^3/uL (0.83-4.51); Absolute Neutrophil Count 3.7 X10^3/uL (2.0-7.7); Basophil# 0.03 X10^3/uL; Basophil% 0.5 % (0-1); Eosinophil# 0.22 X10^3/uL; Eosinophils% 3.5 % (0-5); Hematocrit 33.7 % (37-47); Hemoglobin 10.3 g/dL (12.0-15.0); Lymphocyte # 1.71 X10^3/ul (0.83-4.51); Lymphocyte % 26.9 % (19-41); Mean Corp Hgb Conc 30.6 g/dL (32-36); Mean Corpuscular Hgb 26.9 pg (27.0-32.0); Mean Platelet Vol. 9.4 fl (6.2-12.0); Monocyte# 0.63 X10^3/uL; Monocyte% 9.9 % (0-10); NRBC Flagged by Analyzer 0 % (0-5); Neutrophil # 3.71 X10^3/uL (2.7-7.7); Neutrophil % 58.4 % (47-70); Platelet Count 252 K/mm3 (150-450); RBC Distribution Width CV 13.5 % (11.6-14.6); RBC Distribution Width SD 43.3 fl (35.1-43.9); Red Blood Count 3.83 M/mm3 (4.2-5.4); White Blood Count 6.4 K/mm3 (4.4-11.0)
[2024-02-27 06:11] LABS: Erythrocyte Sedimentation Rate 48 mm/hr (0-30)
[2024-02-27 06:18] LABS: Bedside Glucose 147 mg/dL (74-106)
[2024-02-27 06:20] LABS: Anion Gap 7 (5-15); BUN 19 mg/dL (7-18); BUN/Creat Ratio 27.5 RATIO (10-20); Calcium,Total 8.5 mg/dL (8.5-10.1); Chloride 102 mmol/L (98-107); Creatinine, Serum 0.69 mg/dL (0.55-1.02); EST Glomerular Filtration Rate 92 mL/min (>60); Est Glom Filt Rate - Afr Amer 111 mL/min (>60); Estimated Creatinine Clearance 137.82 ml/min; Glucose 201 mg/dL (74-106); Potassium 3.6 mmol/L (3.5-5.1); Sodium Level 138 mmol/L (136-145)
[2024-02-27] MEDS: Cefepime HCl 2 GM in 0.9% NS 100 ML Minibag Q8 IV ×3 (06:43→22:54)
[2024-02-27] MEDS: Enoxaparin 40 MG/0.4 ML Syringe SC (06:43)
[2024-02-27] MEDS: Levothyroxine 150 MCG Tablet PO (06:43)
[2024-02-27] MEDS: Pregabalin 75 MG Capsule 150 MG PO ×3 (06:43→22:54)
--- NOTE | 2024-02-27 08:24 | NURSING ---
Sports Complex Attendant Note; Activity Asset: Theodora Palomo is independent in her choice of daily activities. She has been w/TCU in the past and stated she enjoys reading, watching tv, she uses her cell phone to play games and talk w/family. She will work on trivia and word puzzles when in room. Dewey welcomes visits from the load manager and therapy Dog when available. Staff will remind her of weekly activities, encourage socialization and respect her right to say no.
[2024-02-27] MEDS: Glimepiride 4 MG Tablet PO (08:32)
[2024-02-27] MEDS: Juven (unflavored) Packet 1 PACKET PO ×2 (08:32→17:51)
[2024-02-27] MEDS: Celecoxib 200 MG Capsule PO (08:32)
[2024-02-27] MEDS: Aspirin E.C. 81 MG Tablet PO (08:33)
[2024-02-27] MEDS: Pantoprazole Sodium 40 MG Tablet PO (08:33)
[2024-02-27] MEDS: Empagliflozin 25 MG Tablet PO (08:33)
[2024-02-27] MEDS: Potassium Chloride Oral Tablet 20 MEQ PO (08:33)
[2024-02-27] MEDS: Montelukast 10 MG Tablet PO (08:34)
[2024-02-27] MEDS: Paroxetine 20 MG Tablet 40 MG PO (08:34)
[2024-02-27] MEDS: Senna/Docusate Sodium 1 Tablet 2 TABLET PO ×2 (08:34→22:54)
[2024-02-27] MEDS: Insulin Lispro 100 UNIT/ML INSULN.PEN 10 UNIT SC ×3 (08:42→17:48)
[2024-02-27] MEDS: Tuberculin,Purif.prot.deriv. 50 TU/ML Vial 0.1 ML ID (08:45)
[2024-02-27] MEDS: oxyCODONE 5 MG Tablet PO (08:47)
[2024-02-27] MEDS: Acetaminophen 500 MG Tablet 1000 MG PO (08:47)
[2024-02-27 08:53] VITALS: BP 88/50; PULSE 71
--- NOTE | 2024-02-27 10:02 | PCM.PN.ID ---
Physical Exam Narrative Feeling ok, now in TCU, no fever, no n/v/d. Const alert and no apparent distress General Appearance: cooperative Resp normal air movement and clear to auscultation bilaterally Cardio regular rate and regular rhythm GI soft to palpation, non-tender and non-distended Skin Skin Narrative: foot wrapped ID ID: Route of nutrition/ use of supplements: [] Nutritional Intake: [] IV Site: [] Song Catheter: [] Assessment & Plan Assessment/Plan (1) Acute osteomyelitis of left calcaneus: PLAN: Previous surgery was 01/26/24 for tendon repair. No fever, pain was moderate. Taken to OR 02/22/[address] Smith for I&D. Surg cx with mssa, enterobacter, and steno. Picc in place for 6 weeks iv cefepime with weekly labs, ID followup in 3 weeks. Stop date 04/04/24. Surg cx now also with steno, will add po levaquin. Last QTC less than 450. 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
[2024-02-27] MEDS: levoFLOXacin 500 MG Tablet PO (10:51)
[2024-02-27 11:25] LABS: Bedside Glucose 137 mg/dL (74-106)
--- NOTE | 2024-02-27 13:21 | PHA.CONS_ITS ---
Documented by User: Christen Presley 02/27/24 15:41 TCU RX Drug Regimen Review Subjective/Objective Subjective/Objective: Subjective: TCU Admission. 58 YOF presented to the ER with a wound. Hospitalized for osteomyelitis left heel, underwent debridement 02/22/[address] Smith. Admitted to TCU with debility for strengthening, rehabilitation and IV antibiotics. Objective: Allergies piperacillin (From Zosyn) Allergy (Severe, Verified 02/21/24 16:47) Anaphylaxis tazobactam (From Zosyn) Allergy (Severe, Verified 02/21/24 16:47) Anaphylaxis sulfamethoxazole (From Bactrim) Allergy (Unknown, Verified 02/21/24 16:47) Anaphylaxis trimethoprim (From Bactrim) Allergy (Unknown, Verified 02/21/24 16:47) Anaphylaxis latex Allergy (Verified 02/21/24 16:47) Rash pyrethrins Allergy (Verified 02/21/24 16:47) Anaphylaxis Flea medications tetanus and diphtheria toxoids (Tetanus&Diphtheria Toxoid) Allergy (Verified 02/21/24 16:47) Anaphylaxis Current Medications Generic Name Dose Route Start Last Admin Trade Name Freq PRN Reason Stop Dose Admin Acetaminophen 1,000 mg 02/26/24 21:01 02/27/24 08:47 Acetaminophen 500 Mg Tablet PO 1,000 mg Q6H PRN PRN Administration Pain Score 1-3 Albuterol Sulfate 1 puff 02/26/24 20:57 Albuterol Ih (6.7 Gm) 1 Puff Inhaler INHALATION Q6H PRN PRN shortness of breath or wheezing Aspirin 81 mg 02/27/24 10:00 02/27/24 08:33 Aspirin E.C. 81 Mg Tablet PO 81 mg DAILY RUTH Administration Atorvastatin Calcium 80 mg 02/26/24 22:00 02/26/24 23:14 Atorvastatin Calcium 80 Mg Tablet PO 80 mg QHS RUTH Administration Celecoxib 200 mg 02/27/24 10:00 02/27/24 08:32 Celecoxib 200 Mg Capsule PO 200 mg DAILY RUTH Administration Doxepin HCl 25 mg 02/26/24 22:00 02/26/24 23:14 Doxepin Hcl 25 Mg Capsule PO 25 mg QHS RUTH Administration Empagliflozin 25 mg 02/27/24 10:00 02/27/24 08:33 Empagliflozin 25 Mg Tablet PO 25 mg DAILY RUTH Administration Enoxaparin Sodium 40 mg 02/27/24 06:00 02/27/24 06:43 Enoxaparin 40 Mg/0.4 Ml Syringe SC 40 mg DAILY@0600 RUTH Administration Glimepiride 4 mg 02/27/24 08:00 02/27/24 08:32 Glimepiride 4 Mg Tablet PO 4 mg DAILYCM RUTH Administration Sodium Chloride 250 mls @ 15 mls/hr 02/26/24 20:10 02/27/24 09:34 IV 0 mls/hr .[id number] PRN Infusion Additional IVPB Infusion Sodium Chloride 250 mls @ 15 mls/hr 02/26/24 20:10 IV .[id number] PRN Saline Flush Cefepime HCl 2 gm/ Sodium 100 mls @ 200 mls/hr 02/26/24 22:00 02/27/24 09:34 Chloride IV Infused Q8 RUTH Infusion Insulin Human Lispro 10 unit 02/27/24 08:00 02/27/24 12:08 Insulin Lispro 100 Unit/Ml Insuln.Pen SC 10 u 0800,1200,1700 RUTH Administration L-Arginine/L-Glutamine/Calcium HMB 1 packet 02/27/24 08:00 02/27/24 08:32 Drew (Unflavored) Packet PO 1 packet BIDCM RUTH Administration Levofloxacin 500 mg 02/27/24 09:45 02/27/24 10:51 Levofloxacin 500 Mg Tablet PO 500 mg DAILY@0600 RUTH Administration Levothyroxine Sodium 150 mcg 02/27/24 06:00 02/27/24 06:43 Levothyroxine 150 Mcg Tablet PO 150 mcg DAILY@0600 RUTH Administration Losartan Potassium 100 mg 02/27/24 10:00 02/27/24 08:53 Losartan Potassium 100 Mg Tablet PO Not Given DAILY [facility] Protocol Magnesium Citrate 300 ml 02/26/24 21:01 Magnesium Citrate 300 Ml PO DAILY PRN Constipation Metoprolol Succinate 200 mg 02/27/24 10:00 02/27/24 08:53 Metoprolol(Xl)Succ 200 Mg Tablet PO Not Given DAILY [facility] Protocol Montelukast Sodium 10 mg 02/27/24 10:00 02/27/24 08:34 Montelukast 10 Mg Tablet PO 10 mg DAILY RUTH Administration Ondansetron HCl 4 mg 02/26/24 20:39 Ondansetron Odt 4 Mg Tablet PO Q8H PRN nausea and vomiting Oxycodone HCl 5 mg 02/26/24 21:01 02/27/24 08:47 Oxycodone 5 Mg Tablet PO 5 mg Q4H PRN PRN Administration Pain Score 6-10 or Pre PT/OT Pantoprazole Sodium 40 mg 02/27/24 10:00 02/27/24 08:33 Pantoprazole Sodium 40 Mg Tablet PO 40 mg DAILY RUTH Administration Paroxetine HCl 40 mg 02/27/24 10:00 02/27/24 08:34 Paroxetine 20 Mg Tablet PO 40 mg DAILY RUTH Administration Potassium Chloride 20 meq 02/27/24 10:00 02/27/24 08:33 Potassium Chloride Oral Tablet 20 Meq PO 20 meq DAILY RUTH Administration Pregabalin 150 mg 02/26/24 22:00 02/27/24 06:43 Pregabalin 75 Mg Capsule PO 150 mg TID RUTH Administration Senna/Docusate Sodium 2 tablet 02/26/24 22:00 02/27/24 08:34 Senna/Docusate Sodium 1 Tablet PO 2 tablet BID RUTH Administration Sodium Chloride 10 - 40 ml 02/26/24 20:10 02/26/24 23:15 0.9% Saline Lock 10 Ml Syringe IV 10 ml UD PRN Administration SALINE FLUSH Sodium Chloride 10 - 40 ml 02/26/24 20:26 0.9 % Nacl (Sterile) Posiflush 10 Ml IV UD PRN Port access or dressing change Sodium Chloride 10 - 40 ml 02/26/24 20:26 0.9% Saline Lock 10 Ml Syringe IV UD PRN Closed End PICC Flush Tramadol HCl 50 mg 02/26/24 21:01 Tramadol 50 Mg Tablet PO Q6H PRN PRN Pain Score 4-5 or Pre PT/OT Trazodone HCl 150 mg 02/26/24 22:00 02/26/24 23:14 Trazodone 50 Mg Tablet PO 150 mg QHS RUTH Administration Tuberculin PPD 0.1 ml 03/05/24 10:00 Tuberculin,Purif.Prot.Deriv. 50 Tu/Ml Vial ID 03/05/24 10:01 X1 ONE Problem List Osteoarthritis (Acute) Essential (primary) hypertension (Acute) Type 2 diabetes mellitus with hyperglycemia (Acute) Dehiscence of wound (Acute) Diabetic infection of left foot (Acute) Acute osteomyelitis of left calcaneus (Acute) Diabetes mellitus with diabetic polyneuropathy (Chronic) Insomnia (Acute) Hyperlipidemia (Acute) Hypothyroidism (Chronic) Hypokalemia (Acute) Depression (Acute) GERD (gastroesophageal reflux disease) (Acute) Debility (Acute) Asthma (Acute) Vital Signs Temp Pulse Resp BP Pulse Ox O2 Del Method 97 F L 71 16 88/50 L 94 Room Air 02/26/24 20:08 02/27/24 08:53 02/26/24 20:08 02/27/24 08:53 02/26/24 20:08 02/27/24 10:00 Oxygen Delivery Method Room Air Weight: 99.473 kg Body Mass Index (BMI) 0.0 Sodium 138 mmol/L (136-145) 02/27/24 05:22 Potassium 3.6 mmol/L (3.5-5.1) 02/27/24 05:22 Chloride 102 mmol/L (98-107) 02/27/24 05:22 Carbon Dioxide 29.0 mmol/L (21.0-32.0) 02/27/24 05:22 Anion Gap 7 (5-15) 02/27/24 05:22 BUN 19 mg/dL (7-18) H 02/27/24 05:22 Creatinine 0.69 mg/dL (0.55-1.02) 02/27/24 05:22 Est GFR (MDRD) Af Amer 111 mL/min (>60) 02/27/24 05:22 Est GFR (MDRD) Non-Af 92 mL/min (>60) 02/27/24 05:22 BUN/Creatinine Ratio 27.5 RATIO (10-20) H 02/27/24 05:22 Glucose 201 mg/dL (74-106) H 02/27/24 05:22 Assessment/Plan: 1. Pain/Arthritis: celecoxib 200mg PO daily, acetaminophen 1000mg Q6H PO PRN for pain scores 1-3, tramadol 50mg Q6H PO PRN for pain scores 4-5, and oxycodone 5mg PO Q4H PRN for pain scores 6-10. Please continue to monitor for increasing/decreasing pain, PRN medication use (tramadol has not yet been administered, 2 oxycodone given for pain 8 and 6 in ankle/foot, acetaminophen given for pain of 6 in ankle), kidney function (last 138ml/min on 02/26), liver function (last WNL on 02/21), constipation, respiratory depression, PRN usage and for falls/oversedation. 2. Bowel: senna/docusate 2T PO BID and magnesium citrate 300ml PO daily PRN constipation. Please continue to monitor for increasing/decreasing constipation/diarrhea (no BM documented yet), and PRN medication use (magnesium citrate has not yet been administered). 3. Left heel osteomyelitis: cefepime 2gm IV Q8H through 04/04/24, levofloxacin 500mg PO daily, Drew 1 packet PO BID with meals. Please continue to monitor kidney function (last 138ml/min on 02/26), for S&S of sepsis, wound cultures (heel culture growing staph/enterobacter/stenotrophomonas), increasing/decreasing erythema, diarrhea, tendonitis, QT/C (last 440ms on 02/21). Please consider adding stop date for levofloxacin. Thanks. 4. DVT: enoxaparin 40mg SC daily. Please continue to monitor for increasing/decreasing bleeding/bruising, Hgb (last 10.3g/dl on 02/26), Hct (last 33.7% on 02/26), kidney function (last 138ml/min on 02/26) and platelets (last 252,000). 5. Hyperlipidemia/Hypertension/CV prophylaxis: atorvastatin 80mg PO QHS, metoprolol succinate 200mg PO daily, losartan 100mg PO daily, aspirin 81mg PO daily. Please continue to monitor BP (91/48mmHg), HR (80bpm on 02/26), Hgb (last 10.3g/dl on 02/26), Hct (last 33.7% on 02/26), kidney function (last 138ml/min on 02/26), liver function (last WNL on 02/21), lipid panel (last 12/28/23), S/S of bleeding/bruising, and potassium (last 3.6mmol/L). Resident did refused morning doses of losartan and metoprolol. Please consider adding hold parameters as the last BPs have been low, 91/48 and 88/50. Thanks. 6. Diabetes Mellitus II: glimepiride 4mg PO daily, empagliflozin 25mg PO daily, insulin lispro 10 units SC TID, Mounjaro 7.5mg SubQ once weekly. Please continue to monitor blood glucose (last 147mg/dL 02/26), A1C (last 6.2% on 02/21), dysuria, S&S of hypoglycemia (hunger, dizziness, sweating), increasing/decreasing constipation/diarrhea (no BM documented yet), and weight change. 7. Hypothyroid: levothyroxine 150mcg PO daily. Please continue to monitor thyroid function (last TSH 0.13uIU/ml on 02/21), increasing/decreasing insomnia, increasing/decreasing anxiety, fatigue, and sensitivity to heat/cold. 8. Hypokalemia: potassium chloride 20meq PO daily. Please continue to monitor serum potassium (last 3.6mmol/L). 9. GERD: pantoprazole 40mg PO daily. Please continue to monitor magnesium (last 2.2mg/dL), diarrhea and for S/S of acid reflux. 10. Nausea: ondansetron 4mg ODT PO Q8H PRN nausea/vomiting. Please continue to monitor for increasing/decreasing nausea/vomiting and PRN medication use (medication has not yet been administered), QT/C (last 440ms, 440ms on 02/21). 11. Asthma: montelukast 10mg PO daily, albuterol 90mcg 1 puff Q6H PRN shortness of breath or wheezing. Please continue to monitor for increasing/decreasing PRN medication use (no use of albuterol documented yet), increasing/decreasing wheezing/SOB. Assessment/Plan for indications treated with psychotropic medications: 1. Insomnia/Depression: trazodone 150mg PO QHS, doxepin 25mg QHS and paroxetine 40mg PO daily. Please continue to monitor for increasing/decreasing depression, insomnia, and anxiety, suicidality (black box), BP (117/70mmHg on 02/25, 88/50mmHg on 02/26), HR (71bpm on 02/26), liver function (last WNL on 02/21), and seizure. a. See provider note, controlled on long-term use, not appropriate for gradual dose reduction. 2. Diabetic neuropathy: pregabalin 150mg PO daily. Please continue to monitor for oversedation, falls, kidney function (last 138ml/min on 02/26), increasing/decreasing neuropathic pain. GDR not applicable due to being used for neuropathy. Medical chart and medication regimen reviewed. The following medication irregularities or issues were identified: 1. Levofloxacin 500mg PO daily. Please consider adding stop date for levofloxacin. Thanks. 2. Metoprolol succinate 200mg PO daily and losartan 100mg PO daily. Resident did refused morning doses of losartan and metoprolol. Please consider adding hold parameters as the last BPs have been low, 91/48 and 88/50. Thanks. Date Date of Note:: 02/27/24 Documented by User: Dr. Gulshan Early MD 02/27/24 17:18 TCU RX Drug Regimen Review Provider Comments Provider responsibility Provider Comments to Recommendations by Pharmacy: Agree
[2024-02-27 14:13] VITALS: BP 91/48; PULSE 80; RESP 16; TEMP 36.1; O2SAT 94
--- NOTE | 2024-02-27 16:10 | NURSING ---
Dr. Mixon in to see patient today. No order for PO Levaquin.
[2024-02-27 16:59] LABS: Bedside Glucose 130 mg/dL (74-106)
[2024-02-27 21:48] LABS: Bedside Glucose 154 mg/dL (74-106)
[2024-02-27] MEDS: traZODone 50 MG Tablet 150 MG PO (22:54)
[2024-02-27] MEDS: Atorvastatin Calcium 80 MG Tablet PO (22:54)
[2024-02-27] MEDS: Doxepin Hcl 25 MG Capsule PO (22:54)
[2024-02-27] MEDS: 0.9% Saline Lock 10 ML Syringe IV (22:54)
[2024-02-27] MEDS: 0.9% Normal Saline (250mL Bag) 250 ML 15 ML IV (22:54)
[2024-02-28 06:29] LABS: Bedside Glucose 120 mg/dL (74-106)
[2024-02-28] MEDS: Enoxaparin 40 MG/0.4 ML Syringe SC (06:32)
[2024-02-28] MEDS: levoFLOXacin 500 MG Tablet PO (06:32)
[2024-02-28] MEDS: 0.9% Saline Lock 10 ML Syringe IV ×3 (06:32→21:25)
[2024-02-28] MEDS: Levothyroxine 150 MCG Tablet PO (06:33)
[2024-02-28] MEDS: traMADol 50 MG Tablet PO (06:33)
[2024-02-28] MEDS: Pregabalin 75 MG Capsule 150 MG PO ×3 (06:33→21:20)
[2024-02-28] MEDS: Cefepime HCl 2 GM in 0.9% NS 100 ML Minibag Q8 IV ×3 (06:33→21:20)
[2024-02-28] MEDS: oxyCODONE 5 MG Tablet PO ×3 (08:35→21:20)
[2024-02-28 08:36] VITALS: BP 110/70; PULSE 84
[2024-02-28] MEDS: Juven (unflavored) Packet 1 PACKET PO ×2 (08:36→17:52)
[2024-02-28] MEDS: Glimepiride 4 MG Tablet PO (08:36)
[2024-02-28] MEDS: Paroxetine 20 MG Tablet 40 MG PO (08:36)
[2024-02-28] MEDS: Metoprolol(XL)Succ 200 MG Tablet PO (08:36)
[2024-02-28] MEDS: Pantoprazole Sodium 40 MG Tablet PO (08:36)
[2024-02-28] MEDS: Losartan Potassium 100 MG Tablet PO (08:37)
[2024-02-28] MEDS: Celecoxib 200 MG Capsule PO (08:37)
[2024-02-28] MEDS: Potassium Chloride Oral Tablet 20 MEQ PO (08:37)
[2024-02-28] MEDS: Montelukast 10 MG Tablet PO (08:37)
[2024-02-28] MEDS: Senna/Docusate Sodium 1 Tablet 2 TABLET PO ×2 (08:37→21:20)
[2024-02-28] MEDS: Empagliflozin 25 MG Tablet PO (08:37)
[2024-02-28] MEDS: Aspirin E.C. 81 MG Tablet PO (08:37)
[2024-02-28] MEDS: Insulin Lispro 100 UNIT/ML INSULN.PEN 10 UNIT SC ×3 (08:38→17:52)
[2024-02-28 11:21] LABS: Bedside Glucose 146 mg/dL (74-106)
[2024-02-28 14:01] VITALS: BP 101/57; PULSE 75; RESP 18; TEMP 36.1; O2SAT 97
--- NOTE | 2024-02-28 14:35 | WOUNDNOTE ---
wound photo: left Achilles area
--- NOTE | 2024-02-28 16:10 | CHAPLAIN ---
Type of Pastoral Visit ___ Initial Visit _x__ Follow-up Visit ___ On-call Visit ___ General Patient Visit ___ Spiritual Assessment ___ Family Conference ___ Bereavement ___ Rapid Response ___ Code Blue ___ Other (describe below) Pastoral Care Referral From _x__ Patient ___ Family ___ Nurse ___ Physician ___ Actuarial Assistant ___ Liberal Arts Dean ___ Other (describe below) Sacrament/Intervention _x__ Active listening ___ Anointing ___ Congregational ___ Bereavement ___ Communion ___ [place] exploration ___ ___ Life review ___ Prayer ___ Reconciliation ___ Sacrament of Sick ___ Supportive presence ___ Wedding ___ Other (describe below) Pastoral Comments patient was previously seen on [facility] and is now in TCU; pt is watching sports on TV and looking at her smartphone; pt states that all is going well like it did last year and that she is okay with her stay so far; pt denies any needs or concerns; offer of future support given as she desires
[2024-02-28 16:30] LABS: Bedside Glucose 115 mg/dL (74-106)
[2024-02-28] MEDS: traZODone 50 MG Tablet 150 MG PO (21:19)
[2024-02-28] MEDS: Atorvastatin Calcium 80 MG Tablet PO (21:20)
[2024-02-28] MEDS: Doxepin Hcl 25 MG Capsule PO (21:20)
[2024-02-28] MEDS: 0.9% Normal Saline (250mL Bag) 250 ML 15 ML IV (21:21)
[2024-02-28 21:39] LABS: Bedside Glucose 195 mg/dL (74-106)
[2024-02-29] MEDS: 0.9% Saline Lock 10 ML Syringe IV ×2 (04:55→22:37)
[2024-02-29] MEDS: Cefepime HCl 2 GM in 0.9% NS 100 ML Minibag Q8 IV ×3 (05:01→22:35)
[2024-02-29] MEDS: levoFLOXacin 500 MG Tablet PO (05:05)
[2024-02-29] MEDS: Pregabalin 75 MG Capsule 150 MG PO ×3 (05:05→22:34)
[2024-02-29] MEDS: 0.9% Normal Saline (250mL Bag) 250 ML 15 ML IV (05:05)
[2024-02-29] MEDS: Enoxaparin 40 MG/0.4 ML Syringe SC (05:05)
[2024-02-29] MEDS: Levothyroxine 150 MCG Tablet PO (05:06)
[2024-02-29] MEDS: oxyCODONE 5 MG Tablet PO ×3 (05:10→14:05)
[2024-02-29] MEDS: Acetaminophen 500 MG Tablet 1000 MG PO (05:11)
[2024-02-29 06:35] LABS: Bedside Glucose 161 mg/dL (74-106)
[2024-02-29 09:27] VITALS: BP 93/55; PULSE 64; RESP 16; O2SAT 98
[2024-02-29] MEDS: Glimepiride 4 MG Tablet PO (09:33)
[2024-02-29] MEDS: Aspirin E.C. 81 MG Tablet PO (09:33)
[2024-02-29] MEDS: Pantoprazole Sodium 40 MG Tablet PO (09:33)
[2024-02-29] MEDS: Celecoxib 200 MG Capsule PO (09:33)
[2024-02-29] MEDS: Senna/Docusate Sodium 1 Tablet 2 TABLET PO ×2 (09:33→22:34)
[2024-02-29] MEDS: Paroxetine 20 MG Tablet 40 MG PO (09:33)
[2024-02-29] MEDS: Montelukast 10 MG Tablet PO (09:33)
[2024-02-29 09:34] VITALS: PULSE 65
[2024-02-29] MEDS: Metoprolol(XL)Succ 200 MG Tablet PO (09:34)
[2024-02-29] MEDS: Juven (unflavored) Packet 1 PACKET PO ×2 (09:34→17:19)
[2024-02-29] MEDS: Insulin Lispro 100 UNIT/ML INSULN.PEN 10 UNIT SC ×3 (09:35→17:19)
[2024-02-29] MEDS: Potassium Chloride Oral Tablet 20 MEQ PO (09:36)
[2024-02-29] MEDS: Empagliflozin 25 MG Tablet PO (09:36)
[2024-02-29 11:15] LABS: Bedside Glucose 150 mg/dL (74-106)
[2024-02-29 16:00] VITALS: TEMP 36.3
[2024-02-29 16:18] LABS: Bedside Glucose 118 mg/dL (74-106)
[2024-02-29 22:04] LABS: Bedside Glucose 144 mg/dL (74-106)
[2024-02-29] MEDS: Doxepin Hcl 25 MG Capsule PO (22:34)
[2024-02-29] MEDS: Atorvastatin Calcium 80 MG Tablet PO (22:34)
[2024-02-29] MEDS: traZODone 50 MG Tablet 150 MG PO (22:34)
[2024-02-29] MEDS: 0.9% Normal Saline (250mL Bag) 250 ML 200 ML IV (22:37)
--- NOTE | 2024-03-01 06:34 | NURSING ---
Patient incontinent of urine at HS, requesting Purewik. Written communication left for Dr. Early
[2024-03-01] MEDS: Pregabalin 75 MG Capsule 150 MG PO ×3 (06:37→21:43)
[2024-03-01] MEDS: Cefepime HCl 2 GM in 0.9% NS 100 ML Minibag Q8 IV ×3 (06:37→21:43)
[2024-03-01] MEDS: 0.9% Saline Lock 10 ML Syringe IV ×5 (06:37→21:43)
[2024-03-01] MEDS: levoFLOXacin 500 MG Tablet PO (06:38)
[2024-03-01] MEDS: Enoxaparin 40 MG/0.4 ML Syringe SC (06:38)
[2024-03-01] MEDS: Levothyroxine 150 MCG Tablet PO (06:38)
[2024-03-01 06:44] LABS: Bedside Glucose 146 mg/dL (74-106)
[2024-03-01] MEDS: oxyCODONE 5 MG Tablet PO ×2 (06:53→14:57)
[2024-03-01 09:00] VITALS: BP 88/58; PULSE 72; RESP 17; TEMP 36.2; O2SAT 96
[2024-03-01] MEDS: Glimepiride 4 MG Tablet PO (09:06)
[2024-03-01] MEDS: Insulin Lispro 100 UNIT/ML INSULN.PEN 10 UNIT SC ×3 (09:06→18:03)
[2024-03-01] MEDS: Aspirin E.C. 81 MG Tablet PO (09:07)
[2024-03-01] MEDS: Celecoxib 200 MG Capsule PO (09:07)
[2024-03-01] MEDS: Juven (unflavored) Packet 1 PACKET PO ×2 (09:07→18:03)
[2024-03-01] MEDS: Potassium Chloride Oral Tablet 20 MEQ PO (09:08)
[2024-03-01] MEDS: Senna/Docusate Sodium 1 Tablet 2 TABLET PO ×2 (09:09→21:43)
[2024-03-01] MEDS: Montelukast 10 MG Tablet PO (09:09)
[2024-03-01] MEDS: Pantoprazole Sodium 40 MG Tablet PO (09:09)
[2024-03-01] MEDS: Paroxetine 20 MG Tablet 40 MG PO (09:09)
[2024-03-01] MEDS: TIRZEPATIDE 7.5 MG/0.5 ML PEN.INJCTR SQ (09:12)
[2024-03-01] MEDS: Acetaminophen 500 MG Tablet 1000 MG PO ×2 (09:23→16:06)
[2024-03-01 11:33] LABS: Bedside Glucose 123 mg/dL (74-106)
[2024-03-01 11:36] VITALS: BP 101/50; PULSE 68
[2024-03-01] MEDS: 0.9% Normal Saline (250mL Bag) 250 ML 15 ML IV (14:45)
[2024-03-01 16:58] LABS: Bedside Glucose 118 mg/dL (74-106)
--- NOTE | 2024-03-01 17:31 | CASEMGMT ---
Social Work SW met with pt and introduced self and role of SW. Initial assessment completed, contacts and code status verified - pt wishes to be full code. SW educated pt on [employer] Medicare benefit and that NRD is 03/01 and continued stay is not guaranteed. Pt's goal is to return home alone. Pt does require 6 weeks of IV ATB with a stop date of 04/04 and a wound vac at this time. SW will continue to follow for dc planning and support. MIGEULINA Alcocer
--- NOTE | 2024-03-01 17:33 | CASEMGMT ---
BIMS () and PHQ9 () interviews completed on this date for MDS assessment. MIGUELINA Lugo
[2024-03-01] MEDS: Doxepin Hcl 25 MG Capsule PO (21:43)
[2024-03-01] MEDS: Atorvastatin Calcium 80 MG Tablet PO (21:43)
[2024-03-01] MEDS: traZODone 50 MG Tablet 150 MG PO (21:43)
[2024-03-01 21:46] LABS: Bedside Glucose 131 mg/dL (74-106)
[2024-03-02] MEDS: Pregabalin 75 MG Capsule 150 MG PO ×3 (06:19→21:48)
[2024-03-02] MEDS: levoFLOXacin 500 MG Tablet PO (06:19)
[2024-03-02] MEDS: Levothyroxine 150 MCG Tablet PO (06:19)
[2024-03-02] MEDS: Enoxaparin 40 MG/0.4 ML Syringe SC (06:19)
[2024-03-02] MEDS: Cefepime HCl 2 GM in 0.9% NS 100 ML Minibag Q8 IV ×3 (06:22→21:48)
[2024-03-02 06:38] LABS: Bedside Glucose 108 mg/dL (74-106)
[2024-03-02] MEDS: Juven (unflavored) Packet 1 PACKET PO ×2 (08:15→18:08)
[2024-03-02] MEDS: Senna/Docusate Sodium 1 Tablet 2 TABLET PO ×2 (08:15→21:48)
[2024-03-02] MEDS: 0.9% Saline Lock 10 ML Syringe IV ×4 (08:15→22:41)
[2024-03-02] MEDS: Montelukast 10 MG Tablet PO (08:15)
[2024-03-02] MEDS: Celecoxib 200 MG Capsule PO (08:16)
[2024-03-02] MEDS: Potassium Chloride Oral Tablet 20 MEQ PO (08:16)
[2024-03-02] MEDS: Pantoprazole Sodium 40 MG Tablet PO (08:16)
[2024-03-02] MEDS: Aspirin E.C. 81 MG Tablet PO (08:16)
[2024-03-02] MEDS: Losartan Potassium 100 MG Tablet PO (08:16)
[2024-03-02] MEDS: Paroxetine 20 MG Tablet 40 MG PO (08:16)
[2024-03-02] MEDS: Insulin Lispro 100 UNIT/ML INSULN.PEN 10 UNIT SC ×3 (08:17→18:08)
[2024-03-02 08:18] VITALS: BP 128/72; PULSE 72
[2024-03-02] MEDS: Metoprolol(XL)Succ 200 MG Tablet PO (08:18)
[2024-03-02] MEDS: Glimepiride 4 MG Tablet PO (08:18)
[2024-03-02 11:25] LABS: Bedside Glucose 158 mg/dL (74-106)
[2024-03-02 13:12] VITALS: BP 150/78; PULSE 73; RESP 14; TEMP 36.1; O2SAT 95
[2024-03-02] MEDS: oxyCODONE 5 MG Tablet PO ×3 (13:26→22:28)
[2024-03-02 16:31] LABS: Bedside Glucose 120 mg/dL (74-106)
--- NOTE | 2024-03-02 17:07 | NURSING ---
COLLETER found Vape Pen in Pts room Pt educated that [facility] is a [facility]. Vape Pen removed from room and put in Med Room may return to pt when discharged.
[2024-03-02 21:34] LABS: Bedside Glucose 126 mg/dL (74-106)
[2024-03-02] MEDS: traZODone 50 MG Tablet 150 MG PO (21:48)
[2024-03-02] MEDS: Atorvastatin Calcium 80 MG Tablet PO (21:48)
[2024-03-02] MEDS: Doxepin Hcl 25 MG Capsule PO (21:48)
[2024-03-02] MEDS: Acetaminophen 500 MG Tablet 1000 MG PO (22:29)
[2024-03-03] MEDS: Pregabalin 75 MG Capsule 150 MG PO ×3 (06:12→21:56)
[2024-03-03] MEDS: Cefepime HCl 2 GM in 0.9% NS 100 ML Minibag Q8 IV ×3 (06:12→21:56)
[2024-03-03] MEDS: Enoxaparin 40 MG/0.4 ML Syringe SC (06:12)
[2024-03-03] MEDS: levoFLOXacin 500 MG Tablet PO (06:12)
[2024-03-03] MEDS: Levothyroxine 150 MCG Tablet PO (06:12)
[2024-03-03] MEDS: oxyCODONE 5 MG Tablet PO ×2 (06:13→22:27)
[2024-03-03] MEDS: 0.9% Saline Lock 10 ML Syringe IV ×2 (06:13→13:05)
[2024-03-03 07:07] LABS: Bedside Glucose 127 mg/dL (74-106)
[2024-03-03] MEDS: Juven (unflavored) Packet 1 PACKET PO ×2 (08:08→17:27)
[2024-03-03] MEDS: Pantoprazole Sodium 40 MG Tablet PO (08:08)
[2024-03-03] MEDS: Senna/Docusate Sodium 1 Tablet 2 TABLET PO ×2 (08:08→22:00)
[2024-03-03] MEDS: Insulin Lispro 100 UNIT/ML INSULN.PEN 10 UNIT SC ×2 (08:08→11:50)
[2024-03-03] MEDS: Glimepiride 4 MG Tablet PO (08:08)
[2024-03-03] MEDS: Potassium Chloride Oral Tablet 20 MEQ PO (08:08)
[2024-03-03 08:09] VITALS: BP 113/64; PULSE 72
[2024-03-03] MEDS: Montelukast 10 MG Tablet PO (08:09)
[2024-03-03] MEDS: Celecoxib 200 MG Capsule PO (08:09)
[2024-03-03] MEDS: Losartan Potassium 100 MG Tablet PO (08:09)
[2024-03-03] MEDS: Aspirin E.C. 81 MG Tablet PO (08:09)
[2024-03-03] MEDS: Paroxetine 20 MG Tablet 40 MG PO (08:09)
[2024-03-03] MEDS: Metoprolol(XL)Succ 200 MG Tablet PO (08:09)
[2024-03-03 11:25] LABS: Bedside Glucose 144 mg/dL (74-106)
[2024-03-03] MEDS: 0.9% Normal Saline (250mL Bag) 250 ML 15 ML IV (13:06)
[2024-03-03 13:38] VITALS: BP 101/60; PULSE 69; RESP 16; TEMP 36.2; O2SAT 95
[2024-03-03 16:39] LABS: Bedside Glucose 84 mg/dL (74-106)
--- NOTE | 2024-03-03 19:11 | NURSING ---
Vape Pen give to daughter to take home. Per Daughter Pt wants to go home tomorrow. Educated daughter that pt is on Antibiotics until 04/04/24. Daughter stated This isn't her first rodeo. She misses her dogs they are her support system. Will talk with pt.
[2024-03-03 21:31] LABS: Bedside Glucose 124 mg/dL (74-106)
[2024-03-03] MEDS: traZODone 50 MG Tablet 150 MG PO (21:59)
[2024-03-03] MEDS: Atorvastatin Calcium 80 MG Tablet PO (21:59)
[2024-03-03] MEDS: Doxepin Hcl 25 MG Capsule PO (22:01)
[2024-03-03] MEDS: Acetaminophen 500 MG Tablet 1000 MG PO (22:27)
[2024-03-04] MEDS: Enoxaparin 40 MG/0.4 ML Syringe SC (05:21)
[2024-03-04] MEDS: Acetaminophen 500 MG Tablet 1000 MG PO ×3 (05:21→22:02)
[2024-03-04] MEDS: Pregabalin 75 MG Capsule 150 MG PO ×3 (05:22→21:50)
[2024-03-04] MEDS: oxyCODONE 5 MG Tablet PO ×3 (05:22→22:00)
[2024-03-04] MEDS: levoFLOXacin 500 MG Tablet PO (05:22)
[2024-03-04] MEDS: Levothyroxine 150 MCG Tablet PO (05:23)
[2024-03-04] MEDS: Cefepime HCl 2 GM in 0.9% NS 100 ML Minibag Q8 IV ×3 (05:25→21:52)
[2024-03-04 06:24] LABS: Bedside Glucose 135 mg/dL (74-106)
[2024-03-04] MEDS: Insulin Lispro 100 UNIT/ML INSULN.PEN 10 UNIT SC ×3 (07:58→17:33)
[2024-03-04] MEDS: Juven (unflavored) Packet 1 PACKET PO ×2 (07:58→17:33)
[2024-03-04] MEDS: Glimepiride 4 MG Tablet PO (07:59)
[2024-03-04] MEDS: Losartan Potassium 100 MG Tablet PO (07:59)
[2024-03-04] MEDS: Aspirin E.C. 81 MG Tablet PO (07:59)
[2024-03-04] MEDS: Potassium Chloride Oral Tablet 20 MEQ PO (07:59)
[2024-03-04] MEDS: Pantoprazole Sodium 40 MG Tablet PO (08:00)
[2024-03-04] MEDS: Senna/Docusate Sodium 1 Tablet 2 TABLET PO ×2 (08:00→21:52)
[2024-03-04] MEDS: Montelukast 10 MG Tablet PO (08:00)
[2024-03-04] MEDS: Paroxetine 20 MG Tablet 40 MG PO (08:00)
[2024-03-04] MEDS: Celecoxib 200 MG Capsule PO (08:00)
[2024-03-04 08:05] VITALS: BP 131/60; PULSE 74
[2024-03-04] MEDS: Metoprolol(XL)Succ 200 MG Tablet PO (08:05)
[2024-03-04] MEDS: 0.9% Saline Lock 10 ML Syringe IV ×5 (08:11→22:42)
[2024-03-04 08:14] VITALS: BP 131/60; PULSE 74
--- NOTE | 2024-03-04 10:25 | NURSING ---
WOUND VAC MAINTAINED TO LEFT ACHILLIES. MAINTAINED AT 125 mmHg. SEAL INTACT.
[2024-03-04 11:07] LABS: Bedside Glucose 138 mg/dL (74-106)
--- NOTE | 2024-03-04 11:26 | CASEMGMT ---
Social Work Insurance extended pt's stay with NRD of 03/15 and expected dc of 03/25. SW met with pt and updated on this. IV ATB are currently scheduled to run through 04/04. Pt states that if she does get cut by insurance prior to completion of IV ATB she or dgt may be able to administer at home. SW to follow for dc planning. MIGUELINA Lugo
--- NOTE | 2024-03-04 12:42 | WOUNDNOTE ---
wound photo: left Achilles area
[2024-03-04 14:20] VITALS: BP 110/54; PULSE 68; RESP 14; TEMP 35.6; O2SAT 96
[2024-03-04] MEDS: 0.9% Normal Saline (250mL Bag) 250 ML 15 ML IV (14:32)
[2024-03-04 16:26] LABS: Bedside Glucose 112 mg/dL (74-106)
--- NOTE | 2024-03-04 16:41 | PCM.CONS.GEN ---
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: (2) Disruption of internal operation (surgical) wound, not elsewhere classified, initial encounter: (3) Partial tear of left Achilles tendon: (4) Diabetes mellitus with diabetic polyneuropathy: QUALIFIERS: Diabetes mellitus [facility] insulin use: with long term acute care registered nurse use Diabetes mellitus type: type 2 Qualified Code(s): E11.42 - Type 2 diabetes mellitus with diabetic polyneuropathy; Z79.4 - terminal computer operator (current) use of insulin (5) Essential (primary) hypertension: (6) Peripheral vascular disease, unspecified: PLAN: Plan Patient seen and evaluated She underwent repair of Achilles tendon tear, tendo Achilles shortening with FHL transfer on 01/26/2024. POD #38 Due to surgical dehiscence secondary to placing weight to the foot she did return to the OR on 02/22/2024 for debridement of the necrotic tissue with application of advanced wound care product and application of wound VAC to the left lower extremity. Left Lower Extremity: There is an ulceration noted to the posterior aspect of the left lower extremity secondary to surgical dehiscence with significant desquamation of the skin overlying the Achilles tendon with exposure of the Achilles tendon and surgical sutures. There is healthy granular tissue postdebridement. No purulent drainage, no palpable fluctuance/bogginess, no localized erythema about the wound. Achilles tendon is visible and appears intact distally with sutures exposed. There is a wound VAC applied to the wound site There is noted improvement in granulation tissue about the ulceration site today. No signs of infection. WBC WNL, HgbA1c 6.2% on 02/21/2024. Patient continuing IV antibiotic via PICC line Vanco/cefepime due to PCN allergy. Patient did undergo wound VAC change today with assistance of wound nurse. Following placement of wound VAC over the Adaptic there is a good seal with no leak detected 125 mmHg continuous pressure. VAC change M, W, F Patient is to remain nonweightbearing to the left lower extremity with the assistance of walker/wheelchair She is to elevate left lower extremity at all times of rest and is to not have pressure against the posterior aspect of the left lower extremity/Achilles tendon area. Medicine currently following for medical management, they are greatly appreciated Infectious disease following for IV antibiotic guidance Wound nurse following for assistance in changing of wound VAC, she is greatly appreciated. Discussed with patient continue plan for wound VAC changes every M, W, F and to continue therapy to aid in building strength and for rehabilitation prior to her discharge home. Discussed continued wound care with application of the wound VAC. Discussed possible further debridement may be required until site is healed. Also discussed possibility of continuing applications of advanced wound care product/grafting to aid in her healing. I will continue to follow the patient weekly while in house in the transitional care unit. Zack Smtih Jr. D.P.M. [facility] [phone] HPI Consult Data Date of Consult: 03/04/24 HPI Narrative HPI Narrative: REMI TREVINO, is a 58 F who presented to [facility] ED on 02/21/2024 for left lower extremity ulceration with exposure of the Achilles tendon. She has PMX HF DM type II with peripheral polyneuropathy, HTN, HLD, PAD, previous amputations of multiple digits, chronic venous insufficiency, nicotine dependence, GERD. Patient had previously undergone surgical intervention for repair of a torn Achilles tendon with tendo Achilles lengthening and FHL tendon transfer on 01/26/2024. Postoperatively she did miss first appointment and did attend the second appointment which sutures were intact and surgical site appeared healthy. She subsequently then missed third postoperative appointment and presented the following week with surgical dehiscence and exposure of the distal portion of the Achilles tendon. She states that she did trip during the week and did place weight to the foot and felt a tear in the back of the leg and she did have increased drainage following this but never did call office to notify of incident or for dressing change. She was admitted to the [facility] for infection and to receive IV antibiotics and did undergo surgical debridement of the left Achilles tendon ulceration and application of advanced wound care product and application of wound VAC on 02/22/2024. She did undergo placement of PICC line following the surgical procedure and continues to receive IV antibiotics. She was then discharged from the [facility] and transferred to the transitional care unit on 02/28/2024 for continued care and assistance and strengthening and rehabilitation prior to her discharge home. Wound VAC continues to be changed M, W, F with assistance of wound care nurse while in the facility. She was consulted to podiatry for continued follow-up care while in the TCU. [facility] Medical History Current use of insulin Post-menopausal Hiatal hernia Back pain due to injury Osteoporosis Sleep apnea Insulin dependent diabetes mellitus Easy bruising Restless legs Difficulty swallowing Tachycardia Smoker Wears dentures Wears glasses Anxiety Iron deficiency Back pain Dietary restriction GERD (gastroesophageal reflux disease) Shortness of breath Asthma CPAP (continuous positive airway pressure) dependence Leg cramping History of pain when walking Edema Cardiology follow-up encounter History of stress test Normal echocardiogram Hypertension Difficulty balancing when standing Asthma Arthritis Fibromyalgia Multinodular thyroid Hypothyroidism Essential (primary) hypertension Hypergammaglobulinemia Hyperlipemia Dermatitis Depression PAD (peripheral artery disease) Other specified peripheral vascular diseases Hammertoe of left foot Skin ulcer of right foot including toes with fat layer exposed Osteomyelitis of toe Morbid obesity with BMI of 40.0-44.9, adult Diabetes type 2, uncontrolled Venous stasis dermatitis of both lower extremities Home Medications ?Medication ?Instructions ?Recorded ?Last Taken ?Type omeprazole 40 mg capsule,delayed 40 mg PO DAILY ACID REFLUX 10/18/18 02/26/24 History release paroxetine HCl 40 mg tablet 40 mg PO DAILY DEPRESSION 10/29/19 02/26/24 History pregabalin 150 mg capsule 150 mg PO TID NERVE PAIN 10/29/19 02/26/24 History aspirin 81 mg tablet,delayed 81 mg PO DAILY HEART HEALTH 07/21/20 02/26/24 08:10 History release (Adult Low Dose Aspirin) metoprolol succinate 200 mg 200 mg PO DAILY BLOOD PRESSURE 07/21/20 02/26/24 History tablet,extended release 24 hr rosuvastatin 40 mg tablet (Crestor) 40 mg PO DAILY CHOLESTEROL 08/26/22 02/25/24 History pen needle, diabetic 32 gauge x #100 ea 02/13/23 Unknown Rx (BD Ultra-Fine [place]ina Pen Needle) dapagliflozin propanediol 10 mg 10 mg PO DAILY DIABETES 03/01/23 02/28/23 History tablet (Farxiga) losartan 100 mg tablet 100 mg PO DAILY BLOOD PRESSURE 03/01/23 02/26/24 History blood sugar diagnostic (True #100 ea 03/24/23 Unknown Rx Metrix Glucose Test Strip) glimepiride 4 mg tablet 4 mg PO DAILY diabetes #30 tabs 04/10/23 Unknown Rx insulin aspart 10 unit subcut TID diabetes #9 mL 05/29/23 02/26/24 Rx (niacinamide)(U-100) 100 unit/mL(3 mL) subcutaneous pen (Fiasp FlexTouch U-100 Insulin) albuterol sulfate 90 mcg/actuation 1 puff inhalation Q6H PRN PRN 01/19/24 01/26/24 10:00 History aerosol inhaler shortness of breath or wheezing tirzepatide 7.5 mg/0.5 mL 7.5 mg subcut QWEEK diabetes 01/19/24 01/15/24 History subcutaneous pen injector (Rex) oxycodone-acetaminophen 5 mg-325 1 tab PO Q8H PRN pain 7 days #28 01/26/24 02/26/24 Rx mg tablet tabs celecoxib 200 mg capsule 200 mg PO DAILY pain 02/21/24 Unknown History doxepin 25 mg capsule 25 mg PO QHS sleep 02/21/24 Unknown History levothyroxine 150 mcg tablet 150 mcg PO DAILY hypothyroid 02/21/24 Unknown History montelukast 10 mg tablet 10 mg PO DAILY allergies/asthma 02/21/24 Unknown History ondansetron 4 mg disintegrating 4 mg PO Q8H PRN nausea and vomiting 02/21/24 02/21/24 History tablet potassium chloride 20 mEq 20 meq PO DAILY potassium 02/21/24 Unknown History tablet,extended supplement release(part/cryst) (Klor-Con M) trazodone 150 mg tablet 150 mg PO QHS sleep 02/21/24 Unknown History cefepime 2 gram solution for 2 g IV Q8 wound infection 38 days 02/26/24 02/26/24 Rx injection #114 ea Allergy/AdvReac Type Severity Reaction Status Date / Time piperacillin (From Zosyn) Allergy Severe Anaphylaxis Verified 02/21/24 16:47 tazobactam (From Zosyn) Allergy Severe Anaphylaxis Verified 02/21/24 16:47 sulfamethoxazole (From Allergy Unknown Anaphylaxis Verified 02/21/24 16:47 Bactrim) trimethoprim (From Bactrim) Allergy Unknown Anaphylaxis Verified 02/21/24 16:47 latex Allergy Rash Verified 02/21/24 16:47 pyrethrins Allergy Anaphylaxis Verified 02/21/24 16:47 tetanus and diphtheria Allergy Anaphylaxis Verified 02/21/24 16:47 toxoids (Tetanus&Diphtheria Toxoid) Family History Mother Diabetes Dementia Father Diabetes Myocardial infarction Surgical History Hx of toe surgery History of partial ray amputation of fifth toe of right foot Hx of total knee arthroplasty History of nasal septoplasty History of cholecystectomy History of thyroidectomy H/O arthroscopic knee surgery (11/2019) H/O amputation of lesser toe (05/05/17) Social History household members: none Smoking Status: Current every day smoker tobacco type: cigarettes alcohol intake: current alcohol intake frequency: holidays/special occasions only substance use type: does not use ROS Constitutional Constitutional: Denies chills, fever(s), malaise or weakness Eyes Eyes: Denies diplopia or loss of vision ENT HEENT: Denies dysphagia, rhinorrhea or sore throat Cardiovascular Cardiovascular: Denies chest pain, claudication or palpitations Respiratory/Chest Respiratory/Chest: Denies dyspnea, shortness of breath at rest or wheezing Gastrointestinal Gastrointestinal: Denies abdominal pain, constipation, diarrhea, nausea or vomiting Genitourinary Genitourinary: Denies dysuria, hematuria or urinary urgency Musculoskeletal Musculoskeletal: Denies joint pain, joint stiffness or joint swelling Integumentary Integumentary: Denies lesions, pruritus or rash Neurologic Neurologic: Denies dizziness, numbness or seizures Psychiatric Psychiatric: Reports depression Endocrine Endocrinology: Denies cold intolerance, heat intolerance or polydipsia Hematologic/Lymphatic Hematologic/Lymphatic: Denies easy bleeding or easy bruising Allergic/Immunologic Allergic/Immunologic: Denies hives, urticaria or wheezing Physical Exam Const alert, oriented x3 and no apparent distress Constitutional Narrative: Nontoxic-appearing General Appearance: cooperative HEENT normocephalic Eyes General Eye: normal appearance of both eyes Neck General: normal visual inspection Lymph Lymphatic: no lymphadenopathy noted and no lymphedema noted Resp normal respiratory effort Cardio regular rate and regular rhythm Extremity Extremity Narrative: Lower extremity: Vascular: DP and PT pulses weakly palpable. CFT less than 5 seconds to digits. Normal temperature gradient. Hair growth is absent to digits/foot. Neurologic: Decreased protective sensation tested with 5.07 g [place] monofilament consistent with diabetic peripheral polyneuropathy. Gross sensation is intact. Light sensation is diminished. Musculoskeletal: Muscle strength was deferred secondary to previous Achilles tendon surgery Dermatologic: There is an ulceration noted to the posterior aspect of the left lower extremity secondary to surgical dehiscence with significant desquamation of the skin overlying the Achilles tendon with exposure of the Achilles tendon and surgical sutures. There is healthy granular tissue postdebridement. No purulent drainage, no palpable fluctuance/bogginess, no localized erythema about the wound. Achilles tendon is visible and appears intact distally with sutures exposed. There is a wound VAC applied to the wound site. Skin no rashes or lesions noted, skin turgor normal and no jaundice Neuro moves all extremities Lab / Micro Data 02/27/24 05:22 02/27/24 05:22 Labs: Laboratory Results - last 24 hr 03/03/24 21:10: POC Glucose 124 H 03/04/24 06:05: POC Glucose 135 H 03/04/24 10:50: POC Glucose 138 H 03/04/24 16:08: POC Glucose 112 H
[2024-03-04 21:31] LABS: Bedside Glucose 121 mg/dL (74-106)
[2024-03-04] MEDS: Doxepin Hcl 25 MG Capsule PO (21:53)
[2024-03-04] MEDS: traZODone 50 MG Tablet 150 MG PO (21:53)
[2024-03-04] MEDS: Atorvastatin Calcium 80 MG Tablet PO (21:53)
[2024-03-04 22:46] VITALS: PULSE 75; RESP 18; O2SAT 96
[2024-03-05] MEDS: Enoxaparin 40 MG/0.4 ML Syringe SC (05:48)
[2024-03-05] MEDS: levoFLOXacin 500 MG Tablet PO (05:48)
[2024-03-05] MEDS: Cefepime HCl 2 GM in 0.9% NS 100 ML Minibag Q8 IV ×3 (05:48→22:12)
[2024-03-05] MEDS: Pregabalin 75 MG Capsule 150 MG PO ×3 (05:48→22:11)
[2024-03-05] MEDS: 0.9% Saline Lock 10 ML Syringe IV ×4 (05:48→23:11)
[2024-03-05] MEDS: Levothyroxine 150 MCG Tablet PO (05:48)
[2024-03-05 07:08] LABS: Anion Gap 6 (5-15); BUN 30 mg/dL (7-18); Calcium,Total 8.5 mg/dL (8.5-10.1); Chloride 105 mmol/L (98-107); EST Glomerular Filtration Rate 109 mL/min (>60); Est Glom Filt Rate - Afr Amer 132 mL/min (>60); Estimated Creatinine Clearance 124.49 ml/min; Glucose 128 mg/dL (74-106); Potassium 3.8 mmol/L (3.5-5.1); Sodium Level 140 mmol/L (136-145)
[2024-03-05 07:11] LABS: Bedside Glucose 128 mg/dL (74-106)
[2024-03-05 10:05] VITALS: BMI 33.1
[2024-03-05 10:13] LABS: Absolute Lymphocyte Count 1.81 X10^3/uL (0.83-4.51); Absolute Neutrophil Count 1.9 X10^3/uL (2.0-7.7); Basophil# 0.05 X10^3/uL; Basophil% 1.1 % (0-1); Eosinophil# 0.16 X10^3/uL; Eosinophils% 3.6 % (0-5); Hematocrit 33.8 % (37-47); Hemoglobin 10.2 g/dL (12.0-15.0); Lymphocyte # 1.81 X10^3/ul (0.83-4.51); Lymphocyte % 40.5 % (19-41); Mean Corp Hgb Conc 30.2 g/dL (32-36); Mean Corpuscular Hgb 26.8 pg (27.0-32.0); Mean Corpuscular Volume 88.9 fL (81-99); Monocyte# 0.53 X10^3/uL; Monocyte% 11.9 % (0-10); NRBC Flagged by Analyzer 0 % (0-5); Neutrophil # 1.88 X10^3/uL (2.7-7.7); Platelet Count 218 K/mm3 (150-450); RBC Distribution Width SD 44.9 fl (35.1-43.9); White Blood Count 4.5 K/mm3 (4.4-11.0)
[2024-03-05 10:27] VITALS: BP 131/56; PULSE 73; RESP 18; O2SAT 97
[2024-03-05] MEDS: Insulin Lispro 100 UNIT/ML INSULN.PEN 10 UNIT SC ×3 (10:30→18:19)
[2024-03-05 10:32] VITALS: PULSE 73
[2024-03-05] MEDS: Glimepiride 4 MG Tablet PO (10:32)
[2024-03-05] MEDS: Montelukast 10 MG Tablet PO (10:32)
[2024-03-05] MEDS: Losartan Potassium 100 MG Tablet PO (10:32)
[2024-03-05] MEDS: Potassium Chloride Oral Tablet 20 MEQ PO (10:32)
[2024-03-05] MEDS: Metoprolol(XL)Succ 200 MG Tablet PO (10:32)
[2024-03-05] MEDS: Senna/Docusate Sodium 1 Tablet 2 TABLET PO ×2 (10:32→22:12)
[2024-03-05] MEDS: Celecoxib 200 MG Capsule PO (10:32)
[2024-03-05] MEDS: Pantoprazole Sodium 40 MG Tablet PO (10:32)
[2024-03-05] MEDS: Paroxetine 20 MG Tablet 40 MG PO (10:33)
[2024-03-05] MEDS: Aspirin E.C. 81 MG Tablet PO (10:33)
[2024-03-05] MEDS: Juven (unflavored) Packet 1 PACKET PO ×2 (10:33→18:12)
[2024-03-05] MEDS: oxyCODONE 5 MG Tablet PO ×3 (10:39→22:23)
[2024-03-05 10:59] LABS: Erythrocyte Sedimentation Rate 42 mm/hr (0-30)
[2024-03-05 11:27] LABS: Bedside Glucose 169 mg/dL (74-106)
[2024-03-05] MEDS: 0.9% Normal Saline (250mL Bag) 250 ML 15 ML IV ×2 (13:34→22:13)
[2024-03-05] MEDS: Tuberculin,Purif.prot.deriv. 50 TU/ML Vial 0.1 ML ID (13:47)
[2024-03-05 16:00] VITALS: TEMP 36.2
[2024-03-05 16:28] LABS: Bedside Glucose 80 mg/dL (74-106)
[2024-03-05 18:40] LABS: Bedside Glucose 127 mg/dL (74-106)
[2024-03-05 22:00] VITALS: PULSE 70; RESP 16; O2SAT 95
[2024-03-05] MEDS: Atorvastatin Calcium 80 MG Tablet PO (22:12)
[2024-03-05 22:13] LABS: Bedside Glucose 140 mg/dL (74-106)
[2024-03-05] MEDS: Doxepin Hcl 25 MG Capsule PO (22:13)
[2024-03-05] MEDS: traZODone 50 MG Tablet 150 MG PO (22:13)
[2024-03-06] MEDS: Enoxaparin 40 MG/0.4 ML Syringe SC (06:29)
[2024-03-06] MEDS: Pregabalin 75 MG Capsule 150 MG PO ×3 (06:29→22:24)
[2024-03-06] MEDS: 0.9% Saline Lock 10 ML Syringe IV ×5 (06:29→23:23)
[2024-03-06] MEDS: levoFLOXacin 500 MG Tablet PO (06:29)
[2024-03-06] MEDS: Cefepime HCl 2 GM in 0.9% NS 100 ML Minibag Q8 IV ×3 (06:30→22:24)
[2024-03-06] MEDS: Levothyroxine 150 MCG Tablet PO (06:30)
[2024-03-06 06:58] LABS: Bedside Glucose 141 mg/dL (74-106)
[2024-03-06 08:12] VITALS: BP 130/57; PULSE 67
[2024-03-06] MEDS: Aspirin E.C. 81 MG Tablet PO (08:12)
[2024-03-06] MEDS: Glimepiride 4 MG Tablet PO (08:12)
[2024-03-06] MEDS: Metoprolol(XL)Succ 200 MG Tablet PO (08:12)
[2024-03-06] MEDS: Potassium Chloride Oral Tablet 20 MEQ PO (08:12)
[2024-03-06] MEDS: Paroxetine 20 MG Tablet 40 MG PO (08:12)
[2024-03-06] MEDS: Pantoprazole Sodium 40 MG Tablet PO (08:12)
[2024-03-06] MEDS: Juven (unflavored) Packet 1 PACKET PO ×2 (08:13→17:39)
[2024-03-06] MEDS: Insulin Lispro 100 UNIT/ML INSULN.PEN 10 UNIT SC ×3 (08:13→17:37)
[2024-03-06] MEDS: Celecoxib 200 MG Capsule PO (08:13)
[2024-03-06] MEDS: Losartan Potassium 100 MG Tablet PO (08:13)
[2024-03-06] MEDS: Montelukast 10 MG Tablet PO (08:13)
[2024-03-06] MEDS: Senna/Docusate Sodium 1 Tablet 2 TABLET PO ×2 (08:13→22:25)
[2024-03-06] MEDS: oxyCODONE 5 MG Tablet PO ×3 (08:21→22:24)
--- NOTE | 2024-03-06 10:21 | CASEMGMT ---
Social Work- Care Planning IDT met with patient at bedside with daughter, Bambi via phone. Discussed patient progress with therapy (PT/OT) and activities. Patient is independent with activities. Per therapy, the patient is supervision/ SBA for bed mobility. Patient is independent with self propelling in wheelchair. Patient require assistance with stand pivot. Patient is min A for lower extremity care. Patient is SBA for toileting transfers. Patient is safe to discharge home when appropriate. Patient is on a 1600 calorie carb diet. Patient is on jacquie for wound care. Patient has a history of IV abx and wound vac in the past. Patient's daughter, Bambi is requesting that patient obtain more activities due to depression. Bambi expressed concerns that the patient was depressed prior to admission. Patient has emotional support dogs. SW informed daughter that the dogs can come to TCU with vaccination history. Patient informed SW that she will communicate concerns for depression as needed. SW discussed increase activity with patient getting out of room. MALIA educated patient and daughterBambi on [employer] Medicare coverage; next review date 03/15 with estimated discharge 03/25. Bambi ended phone call and presented at bedside during IDT conversation. Bambi requested to arrange discharge prior to estimated discharge date due to patient depression. MALIA provided daughter with information for [employer]. Bambi informed MALIA that the patient's mother is currently going to [facility]. Bambi spoke with Lap Cutter Truer Operator regarding increased patient engagement. Bambi informed MALIA that she will provide care with patient care and abx at home. Bambi informed MALIA that she will contact Dr. Smith to discuss discharge. MALIA provided home health care list with geographic area, medical needs, and insurance network via [employer]. [facility] to be contacted to arrange IV Abx. MALIA will continue to follow to support discharge planning. RUDDY Rizo
[2024-03-06 11:10] LABS: Bedside Glucose 175 mg/dL (74-106)
--- NOTE | 2024-03-06 12:52 | MDS.RN ---
Information for the MDS was obtained from review of the clinical record, interview of resident, staff, and direct observation of resident?s care.
[2024-03-06 13:20] VITALS: BP 112/64; PULSE 70; RESP 16; TEMP 35.7; O2SAT 96
[2024-03-06] MEDS: COVID VAC 23-24(12UP)(ANDU)/PF 50 MCG/0.5 ML SYR/VIAL IM (14:20)
[2024-03-06 16:41] LABS: Bedside Glucose 147 mg/dL (74-106)
--- NOTE | 2024-03-06 21:17 | NURSING ---
RETAIL TEAM LEADER reports patient vape in shirt pocket noted while providing HS care. Patient immediately assessed, educated on non-smoking policy, vapes not allowed. Patient states I just keep it in my pocket for comfort, I haven't been using it. Patient encouraged to allow this nurse to remove vape from room and lock up until patient rep can return to patient home, patient agrees. Patient states vape was provided by daughter. Written communication left for Dr. Early notifying that this is the second vape pen removed from patient room this week and requesting if nicotene patch would be appropriate to reduce nicotene cravings.
[2024-03-06 21:21] LABS: Bedside Glucose 133 mg/dL (74-106)
[2024-03-06] MEDS: Atorvastatin Calcium 80 MG Tablet PO (22:25)
[2024-03-06] MEDS: traZODone 50 MG Tablet 150 MG PO (22:25)
[2024-03-06] MEDS: Doxepin Hcl 25 MG Capsule PO (22:25)
[2024-03-06] MEDS: 0.9% Normal Saline (250mL Bag) 250 ML 15 ML IV (22:26)
[2024-03-07] MEDS: Cefepime HCl 2 GM in 0.9% NS 100 ML Minibag Q8 IV ×3 (06:31→22:52)
[2024-03-07] MEDS: levoFLOXacin 500 MG Tablet PO (06:32)
[2024-03-07] MEDS: Enoxaparin 40 MG/0.4 ML Syringe SC (06:32)
[2024-03-07] MEDS: 0.9% Saline Lock 10 ML Syringe IV ×2 (06:32→22:50)
[2024-03-07] MEDS: Pregabalin 75 MG Capsule 150 MG PO ×3 (06:32→22:49)
[2024-03-07] MEDS: Levothyroxine 150 MCG Tablet PO (06:32)
[2024-03-07 06:58] LABS: Bedside Glucose 155 mg/dL (74-106)
[2024-03-07] MEDS: Glimepiride 4 MG Tablet PO (08:16)
[2024-03-07] MEDS: Insulin Lispro 100 UNIT/ML INSULN.PEN 10 UNIT SC ×3 (08:16→18:01)
[2024-03-07] MEDS: Juven (unflavored) Packet 1 PACKET PO ×2 (08:17→18:01)
[2024-03-07] MEDS: Celecoxib 200 MG Capsule PO (08:17)
[2024-03-07] MEDS: Losartan Potassium 100 MG Tablet PO (08:17)
[2024-03-07] MEDS: Aspirin E.C. 81 MG Tablet PO (08:17)
[2024-03-07] MEDS: Potassium Chloride Oral Tablet 20 MEQ PO (08:17)
[2024-03-07] MEDS: Montelukast 10 MG Tablet PO (08:18)
[2024-03-07] MEDS: Senna/Docusate Sodium 1 Tablet 2 TABLET PO ×2 (08:18→22:45)
[2024-03-07] MEDS: Paroxetine 20 MG Tablet 40 MG PO (08:18)
[2024-03-07] MEDS: Pantoprazole Sodium 40 MG Tablet PO (08:18)
[2024-03-07 08:20] VITALS: BP 102/52; PULSE 67
[2024-03-07] MEDS: Metoprolol(XL)Succ 200 MG Tablet PO (08:20)
[2024-03-07] MEDS: oxyCODONE 5 MG Tablet PO ×2 (08:28→22:45)
[2024-03-07] MEDS: Acetaminophen 500 MG Tablet 1000 MG PO ×2 (08:28→22:49)
[2024-03-07 11:45] LABS: Bedside Glucose 142 mg/dL (74-106)
[2024-03-07 16:00] VITALS: BP 109/47; PULSE 71; RESP 15; TEMP 36.4; O2SAT 93
[2024-03-07 16:14] LABS: Bedside Glucose 118 mg/dL (74-106)
--- NOTE | 2024-03-07 16:54 | NURSING ---
NO for nicotine patch per Dr. Early. Patient made aware and placed on left shoulder.
[2024-03-07 22:09] LABS: Bedside Glucose 140 mg/dL (74-106)
[2024-03-07] MEDS: Doxepin Hcl 25 MG Capsule PO (22:44)
[2024-03-07] MEDS: traZODone 50 MG Tablet 150 MG PO (22:44)
[2024-03-07] MEDS: Atorvastatin Calcium 80 MG Tablet PO (22:44)
[2024-03-07] MEDS: 0.9% Normal Saline (250mL Bag) 250 ML 15 ML IV (22:52)
[2024-03-08] MEDS: levoFLOXacin 500 MG Tablet PO (06:05)
[2024-03-08] MEDS: Pregabalin 75 MG Capsule 150 MG PO ×3 (06:05→22:40)
[2024-03-08] MEDS: Levothyroxine 150 MCG Tablet PO (06:05)
[2024-03-08] MEDS: Enoxaparin 40 MG/0.4 ML Syringe SC (06:06)
[2024-03-08] MEDS: 0.9% Saline Lock 10 ML Syringe IV ×3 (06:06→22:47)
[2024-03-08] MEDS: Cefepime HCl 2 GM in 0.9% NS 100 ML Minibag Q8 IV ×3 (06:09→22:47)
[2024-03-08 06:50] LABS: Bedside Glucose 157 mg/dL (74-106)
[2024-03-08] MEDS: Glimepiride 4 MG Tablet PO (07:50)
[2024-03-08] MEDS: Celecoxib 200 MG Capsule PO (07:51)
[2024-03-08] MEDS: Losartan Potassium 100 MG Tablet PO (07:51)
[2024-03-08] MEDS: Juven (unflavored) Packet 1 PACKET PO ×2 (07:51→17:50)
[2024-03-08] MEDS: Paroxetine 20 MG Tablet 40 MG PO (07:52)
[2024-03-08] MEDS: Potassium Chloride Oral Tablet 20 MEQ PO (07:52)
[2024-03-08] MEDS: Aspirin E.C. 81 MG Tablet PO (07:52)
[2024-03-08] MEDS: Montelukast 10 MG Tablet PO (07:53)
[2024-03-08] MEDS: Senna/Docusate Sodium 1 Tablet 2 TABLET PO ×2 (07:53→22:41)
[2024-03-08] MEDS: Pantoprazole Sodium 40 MG Tablet PO (07:53)
[2024-03-08] MEDS: TIRZEPATIDE 7.5 MG/0.5 ML PEN.INJCTR SQ (07:56)
[2024-03-08] MEDS: Insulin Lispro 100 UNIT/ML INSULN.PEN 10 UNIT SC ×3 (07:57→17:50)
[2024-03-08 07:58] VITALS: BP 112/50; PULSE 70
[2024-03-08] MEDS: Metoprolol(XL)Succ 200 MG Tablet PO (07:58)
[2024-03-08 11:20] LABS: Bedside Glucose 134 mg/dL (74-106)
[2024-03-08] MEDS: oxyCODONE 5 MG Tablet PO ×2 (15:10→22:40)
--- NOTE | 2024-03-08 15:18 | PCM.PN.ID ---
Physical Exam Narrative Feeling better, foot improving, no fever, no n/v/d. Const alert and no apparent distress General Appearance: cooperative Resp normal air movement and clear to auscultation bilaterally Cardio regular rate and regular rhythm GI soft to palpation, non-tender and non-distended Skin Skin Narrative: reviewed photos ID ID: Route of nutrition/ use of supplements: [] Nutritional Intake: [] IV Site: [] Song Catheter: [] Assessment & Plan Assessment/Plan (1) Acute osteomyelitis of left calcaneus: PLAN: Previous surgery was 01/26/24 for tendon repair. No fever, pain was moderate. Taken to OR 02/22/[address] Smith for I&D. Surg cx with mssa, enterobacter, and steno. Picc in place for 6 weeks iv cefepime and po levaquin with weekly labs, ID followup in 3 weeks. Stop date 04/04/24. Will follow (2) Dehiscence of wound: (3) Diabetes mellitus with diabetic polyneuropathy: QUALIFIERS: Diabetes mellitus type: type 2 Diabetes mellitus superintendent marine oil terminal insulin use: with fpc use Qualified Code(s): E11.42 - Type 2 diabetes mellitus with diabetic polyneuropathy; Z79.4 - detention (current) use of insulin
--- NOTE | 2024-03-08 15:26 | CASEMGMT ---
Social Work SW met with patient at bedside to discuss discharge. Patient informed SW that her physician informed her that she should remain in rehab a little bit longer. SW inquired about patient's feelings regarding discharge. Patient informed SW that she is agreeable to stay on rehab longer. The patient informed SW that she would like to remain on rehab with Abx. Patient informed SW that she had [facility] in the past. SW to arrange home health care services when medically appropriate. RUDDY Rizo
[2024-03-08 15:34] VITALS: BP 121/73; PULSE 86; RESP 15; TEMP 36.2
[2024-03-08 16:37] LABS: Bedside Glucose 199 mg/dL (74-106)
[2024-03-08 21:34] LABS: Bedside Glucose 193 mg/dL (74-106)
[2024-03-08 22:30] VITALS: BP 137/75; PULSE 83; RESP 16; TEMP 36.1; O2SAT 95
[2024-03-08] MEDS: 0.9% Normal Saline (250mL Bag) 250 ML 15 ML IV (22:37)
[2024-03-08] MEDS: Acetaminophen 500 MG Tablet 1000 MG PO (22:40)
[2024-03-08] MEDS: Doxepin Hcl 25 MG Capsule PO (22:40)
[2024-03-08] MEDS: Atorvastatin Calcium 80 MG Tablet PO (22:40)
[2024-03-08] MEDS: traZODone 50 MG Tablet 150 MG PO (22:41)
[2024-03-09] MEDS: Pregabalin 75 MG Capsule 150 MG PO ×3 (05:52→22:51)
[2024-03-09] MEDS: Acetaminophen 500 MG Tablet 1000 MG PO ×2 (05:52→22:52)
[2024-03-09] MEDS: levoFLOXacin 500 MG Tablet PO (05:53)
[2024-03-09] MEDS: oxyCODONE 5 MG Tablet PO ×4 (05:53→22:51)
[2024-03-09] MEDS: Enoxaparin 40 MG/0.4 ML Syringe SC (05:53)
[2024-03-09] MEDS: Levothyroxine 150 MCG Tablet PO (05:53)
[2024-03-09 06:00] VITALS: BP 112/68; PULSE 78; RESP 17; TEMP 36.1; O2SAT 95
[2024-03-09] MEDS: Magnesium Citrate 300 ML PO (06:08)
[2024-03-09] MEDS: 0.9% Saline Lock 10 ML Syringe IV ×3 (06:26→23:42)
[2024-03-09] MEDS: Cefepime HCl 2 GM in 0.9% NS 100 ML Minibag Q8 IV ×3 (06:27→22:52)
[2024-03-09 06:45] LABS: Bedside Glucose 130 mg/dL (74-106)
[2024-03-09] MEDS: Aspirin E.C. 81 MG Tablet PO (08:09)
[2024-03-09] MEDS: Potassium Chloride Oral Tablet 20 MEQ PO (08:09)
[2024-03-09] MEDS: Pantoprazole Sodium 40 MG Tablet PO (08:09)
[2024-03-09 08:10] VITALS: BP 111/65; PULSE 75
[2024-03-09] MEDS: Senna/Docusate Sodium 1 Tablet 2 TABLET PO ×2 (08:10→22:51)
[2024-03-09] MEDS: Metoprolol(XL)Succ 200 MG Tablet PO (08:10)
[2024-03-09] MEDS: Celecoxib 200 MG Capsule PO (08:11)
[2024-03-09] MEDS: Losartan Potassium 100 MG Tablet PO (08:11)
[2024-03-09] MEDS: Montelukast 10 MG Tablet PO (08:11)
[2024-03-09] MEDS: Paroxetine 20 MG Tablet 40 MG PO (08:11)
[2024-03-09] MEDS: Glimepiride 4 MG Tablet PO (08:12)
[2024-03-09] MEDS: Insulin Lispro 100 UNIT/ML INSULN.PEN 10 UNIT SC ×3 (08:12→18:07)
[2024-03-09] MEDS: Juven (unflavored) Packet 1 PACKET PO ×2 (08:14→18:05)
[2024-03-09 10:21] LABS: Bedside Glucose 182 mg/dL (74-106)
[2024-03-09 15:20] VITALS: BP 155/75; PULSE 73; RESP 16; TEMP 35.8; O2SAT 97
[2024-03-09 16:19] LABS: Bedside Glucose 148 mg/dL (74-106)
[2024-03-09 21:30] LABS: Bedside Glucose 158 mg/dL (74-106)
[2024-03-09] MEDS: Atorvastatin Calcium 80 MG Tablet PO (22:51)
[2024-03-09] MEDS: Doxepin Hcl 25 MG Capsule PO (22:51)
[2024-03-09] MEDS: traZODone 50 MG Tablet 150 MG PO (22:51)
[2024-03-10 06:17] LABS: Bedside Glucose 93 mg/dL (74-106)
[2024-03-10] MEDS: 0.9% Saline Lock 10 ML Syringe IV ×4 (06:18→23:23)
[2024-03-10] MEDS: Cefepime HCl 2 GM in 0.9% NS 100 ML Minibag Q8 IV ×3 (06:22→22:34)
[2024-03-10] MEDS: oxyCODONE 5 MG Tablet PO ×2 (06:25→22:40)
[2024-03-10] MEDS: levoFLOXacin 500 MG Tablet PO (06:25)
[2024-03-10] MEDS: Enoxaparin 40 MG/0.4 ML Syringe SC (06:25)
[2024-03-10] MEDS: Levothyroxine 150 MCG Tablet PO (06:25)
[2024-03-10] MEDS: Acetaminophen 500 MG Tablet 1000 MG PO ×2 (06:26→22:40)
[2024-03-10] MEDS: Pregabalin 75 MG Capsule 150 MG PO ×3 (06:50→22:39)
[2024-03-10] MEDS: Juven (unflavored) Packet 1 PACKET PO ×2 (08:39→17:43)
[2024-03-10] MEDS: Senna/Docusate Sodium 1 Tablet 2 TABLET PO ×2 (08:42→22:39)
[2024-03-10] MEDS: Paroxetine 20 MG Tablet 40 MG PO (08:42)
[2024-03-10 08:43] VITALS: BP 115/64; PULSE 71
[2024-03-10] MEDS: Metoprolol(XL)Succ 200 MG Tablet PO (08:43)
[2024-03-10] MEDS: Pantoprazole Sodium 40 MG Tablet PO (08:44)
[2024-03-10] MEDS: Glimepiride 4 MG Tablet PO (08:44)
[2024-03-10] MEDS: Celecoxib 200 MG Capsule PO (08:44)
[2024-03-10] MEDS: Montelukast 10 MG Tablet PO (08:44)
[2024-03-10] MEDS: Potassium Chloride Oral Tablet 20 MEQ PO (08:44)
[2024-03-10] MEDS: Aspirin E.C. 81 MG Tablet PO (08:45)
[2024-03-10] MEDS: Losartan Potassium 100 MG Tablet PO (08:45)
[2024-03-10] MEDS: Insulin Lispro 100 UNIT/ML INSULN.PEN 10 UNIT SC ×3 (08:46→17:43)
[2024-03-10 11:25] LABS: Bedside Glucose 145 mg/dL (74-106)
[2024-03-10 12:31] VITALS: BP 115/64; PULSE 71; RESP 16; TEMP 36; O2SAT 95
[2024-03-10 16:45] LABS: Bedside Glucose 161 mg/dL (74-106)
[2024-03-10 21:31] LABS: Bedside Glucose 148 mg/dL (74-106)
[2024-03-10] MEDS: Doxepin Hcl 25 MG Capsule PO (22:39)
[2024-03-10] MEDS: traZODone 50 MG Tablet 150 MG PO (22:39)
[2024-03-10] MEDS: Atorvastatin Calcium 80 MG Tablet PO (22:39)
[2024-03-11] MEDS: Enoxaparin 40 MG/0.4 ML Syringe SC (05:40)
[2024-03-11] MEDS: 0.9% Saline Lock 10 ML Syringe IV ×4 (05:40→21:51)
[2024-03-11] MEDS: Pregabalin 75 MG Capsule 150 MG PO ×3 (05:40→21:51)
[2024-03-11] MEDS: Cefepime HCl 2 GM in 0.9% NS 100 ML Minibag Q8 IV ×3 (05:40→21:57)
[2024-03-11] MEDS: Levothyroxine 150 MCG Tablet PO (05:40)
[2024-03-11] MEDS: levoFLOXacin 500 MG Tablet PO (05:40)
[2024-03-11 06:51] LABS: Bedside Glucose 145 mg/dL (74-106)
[2024-03-11 08:12] VITALS: BP 131/75; PULSE 69
[2024-03-11] MEDS: Metoprolol(XL)Succ 200 MG Tablet PO (08:12)
[2024-03-11] MEDS: Montelukast 10 MG Tablet PO (08:12)
[2024-03-11] MEDS: Insulin Lispro 100 UNIT/ML INSULN.PEN 10 UNIT SC ×3 (08:12→17:41)
[2024-03-11] MEDS: Juven (unflavored) Packet 1 PACKET PO ×2 (08:13→17:41)
[2024-03-11] MEDS: Pantoprazole Sodium 40 MG Tablet PO (08:13)
[2024-03-11] MEDS: Potassium Chloride Oral Tablet 20 MEQ PO (08:13)
[2024-03-11] MEDS: Senna/Docusate Sodium 1 Tablet 2 TABLET PO ×2 (08:13→22:00)
[2024-03-11] MEDS: Losartan Potassium 100 MG Tablet PO (08:13)
[2024-03-11] MEDS: Aspirin E.C. 81 MG Tablet PO (08:13)
[2024-03-11] MEDS: Celecoxib 200 MG Capsule PO (08:13)
[2024-03-11] MEDS: Paroxetine 20 MG Tablet 40 MG PO (08:13)
[2024-03-11] MEDS: Glimepiride 4 MG Tablet PO (08:14)
[2024-03-11 11:17] LABS: Bedside Glucose 149 mg/dL (74-106)
[2024-03-11] MEDS: oxyCODONE 5 MG Tablet PO ×2 (11:28→21:51)
[2024-03-11] MEDS: Acetaminophen 500 MG Tablet 1000 MG PO (11:29)
[2024-03-11] MEDS: 0.9% Normal Saline (250mL Bag) 250 ML 15 ML IV (13:12)
[2024-03-11 13:41] VITALS: BP 132/68; PULSE 70; RESP 18; TEMP 36.1; O2SAT 96
--- NOTE | 2024-03-11 13:54 | WOUNDNOTE ---
wound photo: left Achilles
[2024-03-11 17:06] LABS: Bedside Glucose 166 mg/dL (74-106)
[2024-03-11 21:41] LABS: Bedside Glucose 161 mg/dL (74-106)
[2024-03-11] MEDS: 0.9% Normal Saline (250mL Bag) 250 ML 200 ML IV (21:58)
[2024-03-11] MEDS: Doxepin Hcl 25 MG Capsule PO (22:00)
[2024-03-11] MEDS: Atorvastatin Calcium 80 MG Tablet PO (22:00)
[2024-03-11] MEDS: traZODone 50 MG Tablet 150 MG PO (22:00)
[2024-03-12] MEDS: levoFLOXacin 500 MG Tablet PO (05:48)
[2024-03-12] MEDS: Levothyroxine 150 MCG Tablet PO (05:48)
[2024-03-12] MEDS: Enoxaparin 40 MG/0.4 ML Syringe SC (05:48)
[2024-03-12] MEDS: Pregabalin 75 MG Capsule 150 MG PO ×3 (05:48→21:46)
[2024-03-12] MEDS: 0.9% Saline Lock 10 ML Syringe IV ×3 (05:49→21:45)
[2024-03-12] MEDS: Cefepime HCl 2 GM in 0.9% NS 100 ML Minibag Q8 IV ×3 (05:50→21:51)
[2024-03-12] MEDS: 0.9% Normal Saline (250mL Bag) 250 ML 15 ML IV ×2 (05:53→21:51)
[2024-03-12 05:58] LABS: Absolute Lymphocyte Count 1.45 X10^3/uL (0.83-4.51); Absolute Neutrophil Count 1.8 X10^3/uL (2.0-7.7); Basophil# 0.02 X10^3/uL; Basophil% 0.5 % (0-1); Eosinophil# 0.21 X10^3/uL; Eosinophils% 5.2 % (0-5); Erythrocyte Sedimentation Rate 26 mm/hr (0-30); Hematocrit 31.9 % (37-47); Hemoglobin 9.9 g/dL (12.0-15.0); Lymphocyte # 1.45 X10^3/ul (0.83-4.51); Lymphocyte % 35.9 % (19-41); Mean Corpuscular Hgb 27.1 pg (27.0-32.0); Mean Corpuscular Volume 87.4 fL (81-99); Mean Platelet Vol. 9.5 fl (6.2-12.0); Monocyte# 0.58 X10^3/uL; Monocyte% 14.4 % (0-10); NRBC Flagged by Analyzer 0 % (0-5); Neutrophil # 1.75 X10^3/uL (2.7-7.7); Neutrophil % 43.3 % (47-70); Platelet Count 177 K/mm3 (150-450); RBC Distribution Width SD 44.3 fl (35.1-43.9); Red Blood Count 3.65 M/mm3 (4.2-5.4)
[2024-03-12 06:10] LABS: Anion Gap 5 (5-15); BUN 24 mg/dL (7-18); BUN/Creat Ratio 39.5 RATIO (10-20); Calcium,Total 8.3 mg/dL (8.5-10.1); Chloride 104 mmol/L (98-107); Creatinine, Serum 0.61 mg/dL (0.55-1.02); EST Glomerular Filtration Rate 107 mL/min (>60); Est Glom Filt Rate - Afr Amer 129 mL/min (>60); Estimated Creatinine Clearance 122.14 ml/min; Glucose 172 mg/dL (74-106); Potassium 3.8 mmol/L (3.5-5.1); Sodium Level 140 mmol/L (136-145)
[2024-03-12 06:38] LABS: Bedside Glucose 150 mg/dL (74-106)
[2024-03-12 08:48] VITALS: BP 116/65; PULSE 72
[2024-03-12] MEDS: Montelukast 10 MG Tablet PO (08:48)
[2024-03-12] MEDS: Senna/Docusate Sodium 1 Tablet 2 TABLET PO ×2 (08:48→21:46)
[2024-03-12] MEDS: Metoprolol(XL)Succ 200 MG Tablet PO (08:48)
[2024-03-12] MEDS: Paroxetine 20 MG Tablet 40 MG PO (08:49)
[2024-03-12] MEDS: Aspirin E.C. 81 MG Tablet PO (08:49)
[2024-03-12] MEDS: Glimepiride 4 MG Tablet PO (08:49)
[2024-03-12] MEDS: Celecoxib 200 MG Capsule PO (08:49)
[2024-03-12] MEDS: Losartan Potassium 100 MG Tablet PO (08:49)
[2024-03-12] MEDS: Pantoprazole Sodium 40 MG Tablet PO (08:49)
[2024-03-12] MEDS: Acetaminophen 500 MG Tablet 1000 MG PO (08:49)
[2024-03-12] MEDS: Potassium Chloride Oral Tablet 20 MEQ PO (08:49)
[2024-03-12] MEDS: oxyCODONE 5 MG Tablet PO ×3 (08:49→21:46)
[2024-03-12] MEDS: Juven (unflavored) Packet 1 PACKET PO ×2 (08:50→17:50)
[2024-03-12] MEDS: Insulin Lispro 100 UNIT/ML INSULN.PEN 10 UNIT SC ×3 (08:50→17:49)
[2024-03-12 10:00] VITALS: BMI 34.1
[2024-03-12 11:43] LABS: Bedside Glucose 181 mg/dL (74-106)
[2024-03-12 15:12] VITALS: BP 157/72; PULSE 65; RESP 14; TEMP 36.1
[2024-03-12 16:29] LABS: Bedside Glucose 143 mg/dL (74-106)
[2024-03-12 21:42] LABS: Bedside Glucose 195 mg/dL (74-106)
[2024-03-12] MEDS: Doxepin Hcl 25 MG Capsule PO (21:46)
[2024-03-12] MEDS: traZODone 50 MG Tablet 150 MG PO (21:46)
[2024-03-12] MEDS: Atorvastatin Calcium 80 MG Tablet PO (21:46)
[2024-03-13] MEDS: levoFLOXacin 500 MG Tablet PO (06:08)
[2024-03-13] MEDS: Pregabalin 75 MG Capsule 150 MG PO ×3 (06:08→21:05)
[2024-03-13] MEDS: Enoxaparin 40 MG/0.4 ML Syringe SC (06:08)
[2024-03-13] MEDS: 0.9% Saline Lock 10 ML Syringe IV ×3 (06:08→21:10)
[2024-03-13] MEDS: Levothyroxine 150 MCG Tablet PO (06:09)
[2024-03-13] MEDS: Cefepime HCl 2 GM in 0.9% NS 100 ML Minibag Q8 IV ×3 (06:11→21:12)
[2024-03-13 06:32] LABS: Bedside Glucose 122 mg/dL (74-106)
[2024-03-13 08:39] VITALS: BP 117/74; PULSE 72
[2024-03-13] MEDS: Senna/Docusate Sodium 1 Tablet 2 TABLET PO ×2 (08:39→21:04)
[2024-03-13] MEDS: Pantoprazole Sodium 40 MG Tablet PO (08:39)
[2024-03-13] MEDS: Montelukast 10 MG Tablet PO (08:39)
[2024-03-13] MEDS: Aspirin E.C. 81 MG Tablet PO (08:39)
[2024-03-13] MEDS: Celecoxib 200 MG Capsule PO (08:39)
[2024-03-13] MEDS: Potassium Chloride Oral Tablet 20 MEQ PO (08:39)
[2024-03-13] MEDS: Metoprolol(XL)Succ 200 MG Tablet PO (08:39)
[2024-03-13] MEDS: Losartan Potassium 100 MG Tablet PO (08:39)
[2024-03-13] MEDS: Glimepiride 4 MG Tablet PO (08:40)
[2024-03-13] MEDS: Insulin Lispro 100 UNIT/ML INSULN.PEN 10 UNIT SC ×3 (08:40→17:40)
[2024-03-13] MEDS: Juven (unflavored) Packet 1 PACKET PO ×2 (08:40→17:40)
[2024-03-13] MEDS: Paroxetine 20 MG Tablet 40 MG PO (08:40)
[2024-03-13] MEDS: oxyCODONE 5 MG Tablet PO ×2 (08:47→21:09)
[2024-03-13 11:14] LABS: Bedside Glucose 171 mg/dL (74-106)
[2024-03-13 12:27] VITALS: BP 121/59; PULSE 68; RESP 14; TEMP 36.2; O2SAT 95
--- NOTE | 2024-03-13 12:45 | NURSING ---
Pt educated on Nicotine patch and that while wearing Nicotine patch no form of Nicotine should be used d/t increased risk of cardiac issues. Pt stated she understood.
[2024-03-13] MEDS: 0.9% Normal Saline (250mL Bag) 250 ML 15 ML IV (14:19)
[2024-03-13 16:26] LABS: Bedside Glucose 135 mg/dL (74-106)
[2024-03-13] MEDS: traZODone 50 MG Tablet 150 MG PO (21:06)
[2024-03-13] MEDS: Doxepin Hcl 25 MG Capsule PO (21:07)
[2024-03-13] MEDS: Atorvastatin Calcium 80 MG Tablet PO (21:08)
[2024-03-13] MEDS: Acetaminophen 500 MG Tablet 1000 MG PO (21:09)
[2024-03-13 21:19] LABS: Bedside Glucose 197 mg/dL (74-106)
[2024-03-14] MEDS: Enoxaparin 40 MG/0.4 ML Syringe SC (06:11)
[2024-03-14] MEDS: Levothyroxine 150 MCG Tablet PO (06:11)
[2024-03-14] MEDS: Pregabalin 75 MG Capsule 150 MG PO ×3 (06:12→21:43)
[2024-03-14] MEDS: levoFLOXacin 500 MG Tablet PO (06:12)
[2024-03-14] MEDS: 0.9% Saline Lock 10 ML Syringe IV ×2 (06:12→21:43)
[2024-03-14 06:14] LABS: Bedside Glucose 128 mg/dL (74-106)
[2024-03-14] MEDS: Cefepime HCl 2 GM in 0.9% NS 100 ML Minibag Q8 IV ×3 (06:15→21:51)
[2024-03-14] MEDS: Juven (unflavored) Packet 1 PACKET PO ×2 (09:43→16:58)
[2024-03-14] MEDS: Pantoprazole Sodium 40 MG Tablet PO (09:44)
[2024-03-14] MEDS: Losartan Potassium 100 MG Tablet PO (09:44)
[2024-03-14] MEDS: Senna/Docusate Sodium 1 Tablet 2 TABLET PO ×2 (09:44→21:44)
[2024-03-14] MEDS: Glimepiride 4 MG Tablet PO (09:44)
[2024-03-14] MEDS: Celecoxib 200 MG Capsule PO (09:44)
[2024-03-14] MEDS: Aspirin E.C. 81 MG Tablet PO (09:44)
[2024-03-14] MEDS: Montelukast 10 MG Tablet PO (09:44)
[2024-03-14] MEDS: Potassium Chloride Oral Tablet 20 MEQ PO (09:44)
[2024-03-14] MEDS: Paroxetine 20 MG Tablet 40 MG PO (09:44)
[2024-03-14] MEDS: Insulin Lispro 100 UNIT/ML INSULN.PEN 10 UNIT SC ×3 (09:45→17:01)
[2024-03-14 10:43] VITALS: BP 100/55; PULSE 72
[2024-03-14] MEDS: oxyCODONE 5 MG Tablet PO ×3 (10:50→21:43)
[2024-03-14 11:50] LABS: Bedside Glucose 197 mg/dL (74-106)
[2024-03-14 13:29] VITALS: BP 110/61; PULSE 73; RESP 14; TEMP 36; O2SAT 98
[2024-03-14 16:45] LABS: Bedside Glucose 144 mg/dL (74-106)
[2024-03-14] MEDS: Acetaminophen 500 MG Tablet 1000 MG PO (17:10)
[2024-03-14 21:33] LABS: Bedside Glucose 167 mg/dL (74-106)
[2024-03-14] MEDS: traZODone 50 MG Tablet 150 MG PO (21:44)
[2024-03-14] MEDS: Doxepin Hcl 25 MG Capsule PO (21:44)
[2024-03-14 21:50] VITALS: RESP 16
[2024-03-14] MEDS: Atorvastatin Calcium 80 MG Tablet PO (21:51)
[2024-03-15] MEDS: Pregabalin 75 MG Capsule 150 MG PO ×3 (05:07→22:06)
[2024-03-15] MEDS: Levothyroxine 150 MCG Tablet PO (05:08)
[2024-03-15] MEDS: 0.9% Saline Lock 10 ML Syringe IV ×3 (05:08→23:02)
[2024-03-15] MEDS: levoFLOXacin 500 MG Tablet PO (05:08)
[2024-03-15] MEDS: Enoxaparin 40 MG/0.4 ML Syringe SC (05:08)
[2024-03-15] MEDS: 0.9% Normal Saline (250mL Bag) 250 ML 15 ML IV ×2 (05:09→22:06)
[2024-03-15] MEDS: Cefepime HCl 2 GM in 0.9% NS 100 ML Minibag Q8 IV ×3 (05:09→22:11)
--- NOTE | 2024-03-15 05:14 | NURSING ---
Wound Vac changed per order.
[2024-03-15 05:17] VITALS: RESP 16
[2024-03-15 06:05] LABS: Bedside Glucose 163 mg/dL (74-106)
--- NOTE | 2024-03-15 06:17 | NURSING ---
Wound vac dressing removed including one piece of black foam and one piece of adaptic. Small amount of bleeding noted when dressing removed. Using clean technique, wound bed and periwound skin cleansed w/ NS. Skin prep applied to periwound skin. One piece of adaptic placed over area of white tissue and sutures. Drape applied to periwound skin. One piece of black foam applied over adaptic and wound bed. Remainder of wound bed w/ granulation tissue. Drape applied over black foam. Quarter-size hole cut prior to placing track pad. Secured w additional drape. Tubing connected to wound vac at 125 mmHg. No leaks noted. Small amount of sanguinous drainage noted in canister. Resident tolerated well. Will continue to monitor.
[2024-03-15] MEDS: Glimepiride 4 MG Tablet PO (08:52)
[2024-03-15] MEDS: Potassium Chloride Oral Tablet 20 MEQ PO (08:52)
[2024-03-15] MEDS: Juven (unflavored) Packet 1 PACKET PO ×2 (08:52→16:43)
[2024-03-15] MEDS: Celecoxib 200 MG Capsule PO (08:52)
[2024-03-15] MEDS: Aspirin E.C. 81 MG Tablet PO (08:52)
[2024-03-15] MEDS: Insulin Lispro 100 UNIT/ML INSULN.PEN 10 UNIT SC ×3 (08:52→16:43)
[2024-03-15] MEDS: Senna/Docusate Sodium 1 Tablet 2 TABLET PO ×2 (08:53→22:11)
[2024-03-15] MEDS: Paroxetine 20 MG Tablet 40 MG PO (08:53)
[2024-03-15] MEDS: Pantoprazole Sodium 40 MG Tablet PO (08:53)
[2024-03-15] MEDS: Montelukast 10 MG Tablet PO (08:53)
[2024-03-15] MEDS: TIRZEPATIDE 7.5 MG/0.5 ML PEN.INJCTR SQ (09:02)
[2024-03-15 10:20] VITALS: BP 91/55; PULSE 68; RESP 18; TEMP 36.4; O2SAT 99
[2024-03-15 11:26] LABS: Bedside Glucose 188 mg/dL (74-106)
[2024-03-15] MEDS: oxyCODONE 5 MG Tablet PO ×2 (15:47→22:05)
[2024-03-15 16:37] LABS: Bedside Glucose 173 mg/dL (74-106)
[2024-03-15] MEDS: Acetaminophen 500 MG Tablet 1000 MG PO ×2 (16:47→23:02)
[2024-03-15 21:27] LABS: Bedside Glucose 163 mg/dL (74-106)
[2024-03-15] MEDS: traZODone 50 MG Tablet 150 MG PO (22:11)
[2024-03-15] MEDS: Atorvastatin Calcium 80 MG Tablet PO (22:11)
[2024-03-15] MEDS: Doxepin Hcl 25 MG Capsule PO (22:11)
[2024-03-16] MEDS: Enoxaparin 40 MG/0.4 ML Syringe SC (05:59)
[2024-03-16] MEDS: Pregabalin 75 MG Capsule 150 MG PO ×3 (06:00→21:51)
[2024-03-16] MEDS: 0.9% Saline Lock 10 ML Syringe IV ×4 (06:00→22:36)
[2024-03-16] MEDS: oxyCODONE 5 MG Tablet PO ×3 (06:00→21:51)
[2024-03-16] MEDS: levoFLOXacin 500 MG Tablet PO (06:00)
[2024-03-16] MEDS: Cefepime HCl 2 GM in 0.9% NS 100 ML Minibag Q8 IV ×3 (06:00→21:47)
[2024-03-16] MEDS: Levothyroxine 150 MCG Tablet PO (06:01)
[2024-03-16 06:29] LABS: Bedside Glucose 129 mg/dL (74-106)
[2024-03-16 08:30] VITALS: BP 135/72; PULSE 76; RESP 16; TEMP 36.6; O2SAT 97
[2024-03-16] MEDS: Juven (unflavored) Packet 1 PACKET PO ×2 (08:31→17:16)
[2024-03-16] MEDS: Celecoxib 200 MG Capsule PO (08:34)
[2024-03-16] MEDS: Potassium Chloride Oral Tablet 20 MEQ PO (08:34)
[2024-03-16] MEDS: Losartan Potassium 100 MG Tablet PO (08:34)
[2024-03-16 08:35] VITALS: PULSE 76
[2024-03-16] MEDS: Pantoprazole Sodium 40 MG Tablet PO (08:35)
[2024-03-16] MEDS: Senna/Docusate Sodium 1 Tablet 2 TABLET PO ×2 (08:35→21:52)
[2024-03-16] MEDS: Aspirin E.C. 81 MG Tablet PO (08:35)
[2024-03-16] MEDS: Paroxetine 20 MG Tablet 40 MG PO (08:35)
[2024-03-16] MEDS: Metoprolol(XL)Succ 200 MG Tablet PO (08:35)
[2024-03-16] MEDS: Montelukast 10 MG Tablet PO (08:35)
[2024-03-16] MEDS: Insulin Lispro 100 UNIT/ML INSULN.PEN 10 UNIT SC ×3 (08:37→17:16)
[2024-03-16] MEDS: Glimepiride 4 MG Tablet PO (08:37)
[2024-03-16 12:07] LABS: Bedside Glucose 160 mg/dL (74-106)
[2024-03-16 13:46] VITALS: PULSE 70; RESP 17; O2SAT 99
[2024-03-16 17:08] LABS: Bedside Glucose 110 mg/dL (74-106)
[2024-03-16] MEDS: Acetaminophen 500 MG Tablet 1000 MG PO (17:21)
[2024-03-16 21:29] LABS: Bedside Glucose 160 mg/dL (74-106)
[2024-03-16] MEDS: traZODone 50 MG Tablet 150 MG PO (21:51)
[2024-03-16] MEDS: Atorvastatin Calcium 80 MG Tablet PO (21:52)
[2024-03-16] MEDS: Doxepin Hcl 25 MG Capsule PO (21:52)
[2024-03-17] MEDS: Acetaminophen 500 MG Tablet 1000 MG PO ×2 (05:56→22:08)
[2024-03-17] MEDS: Cefepime HCl 2 GM in 0.9% NS 100 ML Minibag Q8 IV ×3 (05:56→22:07)
[2024-03-17] MEDS: 0.9% Normal Saline (250mL Bag) 250 ML 15 ML IV (05:57)
[2024-03-17] MEDS: 0.9% Saline Lock 10 ML Syringe IV ×5 (05:58→22:59)
[2024-03-17] MEDS: Pregabalin 75 MG Capsule 150 MG PO ×3 (06:01→22:08)
[2024-03-17] MEDS: oxyCODONE 5 MG Tablet PO ×2 (06:01→22:08)
[2024-03-17] MEDS: Levothyroxine 150 MCG Tablet PO (06:02)
[2024-03-17] MEDS: Enoxaparin 40 MG/0.4 ML Syringe SC (06:02)
[2024-03-17] MEDS: levoFLOXacin 500 MG Tablet PO (06:02)
[2024-03-17 06:12] LABS: Bedside Glucose 125 mg/dL (74-106)
[2024-03-17 08:38] VITALS: BP 107/72; PULSE 76; RESP 15; TEMP 36.2; O2SAT 97
[2024-03-17] MEDS: Juven (unflavored) Packet 1 PACKET PO ×2 (08:42→16:30)
[2024-03-17] MEDS: Aspirin E.C. 81 MG Tablet PO (08:42)
[2024-03-17 08:43] VITALS: PULSE 76
[2024-03-17] MEDS: Pantoprazole Sodium 40 MG Tablet PO (08:43)
[2024-03-17] MEDS: Insulin Lispro 100 UNIT/ML INSULN.PEN 10 UNIT SC ×3 (08:43→17:49)
[2024-03-17] MEDS: Losartan Potassium 100 MG Tablet PO (08:43)
[2024-03-17] MEDS: Potassium Chloride Oral Tablet 20 MEQ PO (08:43)
[2024-03-17] MEDS: Senna/Docusate Sodium 1 Tablet 2 TABLET PO ×2 (08:43→22:09)
[2024-03-17] MEDS: Paroxetine 20 MG Tablet 40 MG PO (08:43)
[2024-03-17] MEDS: Celecoxib 200 MG Capsule PO (08:43)
[2024-03-17] MEDS: Metoprolol(XL)Succ 200 MG Tablet PO (08:43)
[2024-03-17] MEDS: Glimepiride 4 MG Tablet PO (08:43)
[2024-03-17] MEDS: Montelukast 10 MG Tablet PO (08:43)
[2024-03-17 11:53] LABS: Bedside Glucose 151 mg/dL (74-106)
[2024-03-17 14:34] VITALS: PULSE 76; RESP 16; O2SAT 97
[2024-03-17 17:48] LABS: Bedside Glucose 174 mg/dL (74-106)
[2024-03-17 21:24] LABS: Bedside Glucose 169 mg/dL (74-106)
[2024-03-17] MEDS: Menthol/Lanolin/Calamine/Znox 113 GM Tube 1 APPLIC TOPICAL (22:07)
[2024-03-17] MEDS: traZODone 50 MG Tablet 150 MG PO (22:09)
[2024-03-17] MEDS: Atorvastatin Calcium 80 MG Tablet PO (22:09)
[2024-03-17] MEDS: Doxepin Hcl 25 MG Capsule PO (22:09)
[2024-03-18] MEDS: Levothyroxine 150 MCG Tablet PO (05:43)
[2024-03-18] MEDS: 0.9% Saline Lock 10 ML Syringe IV ×4 (05:43→22:23)
[2024-03-18] MEDS: Pregabalin 75 MG Capsule 150 MG PO ×3 (05:43→22:20)
[2024-03-18] MEDS: levoFLOXacin 500 MG Tablet PO (05:43)
[2024-03-18] MEDS: Cefepime HCl 2 GM in 0.9% NS 100 ML Minibag Q8 IV ×3 (05:43→22:25)
[2024-03-18] MEDS: Enoxaparin 40 MG/0.4 ML Syringe SC (05:43)
[2024-03-18 06:36] LABS: Bedside Glucose 117 mg/dL (74-106)
[2024-03-18] MEDS: Juven (unflavored) Packet 1 PACKET PO ×2 (08:19→17:35)
[2024-03-18] MEDS: Insulin Lispro 100 UNIT/ML INSULN.PEN 10 UNIT SC ×3 (08:19→17:35)
[2024-03-18] MEDS: Potassium Chloride Oral Tablet 20 MEQ PO (08:19)
[2024-03-18 08:20] VITALS: BP 118/81; PULSE 75; RESP 16; TEMP 35.9; O2SAT 99
[2024-03-18] MEDS: Senna/Docusate Sodium 1 Tablet 2 TABLET PO ×2 (08:20→22:19)
[2024-03-18] MEDS: Glimepiride 4 MG Tablet PO (08:20)
[2024-03-18] MEDS: Pantoprazole Sodium 40 MG Tablet PO (08:20)
[2024-03-18] MEDS: Losartan Potassium 100 MG Tablet PO (08:20)
[2024-03-18] MEDS: Paroxetine 20 MG Tablet 40 MG PO (08:20)
[2024-03-18] MEDS: Montelukast 10 MG Tablet PO (08:20)
[2024-03-18] MEDS: Celecoxib 200 MG Capsule PO (08:20)
[2024-03-18] MEDS: Metoprolol(XL)Succ 200 MG Tablet PO (08:20)
[2024-03-18] MEDS: Aspirin E.C. 81 MG Tablet PO (08:21)
[2024-03-18] MEDS: Menthol/Lanolin/Calamine/Znox 113 GM Tube 1 APPLIC TOPICAL ×2 (08:21→22:23)
[2024-03-18] MEDS: oxyCODONE 5 MG Tablet PO ×2 (08:32→22:21)
[2024-03-18 11:15] LABS: Bedside Glucose 146 mg/dL (74-106)
--- NOTE | 2024-03-18 14:38 | WOUNDNOTE ---
wound photo: left Achilles
[2024-03-18 16:36] LABS: Bedside Glucose 77 mg/dL (74-106)
[2024-03-18 21:44] LABS: Bedside Glucose 187 mg/dL (74-106)
[2024-03-18] MEDS: Acetaminophen 500 MG Tablet 1000 MG PO (22:19)
[2024-03-18] MEDS: traZODone 50 MG Tablet 150 MG PO (22:19)
[2024-03-18] MEDS: Atorvastatin Calcium 80 MG Tablet PO (22:20)
[2024-03-18] MEDS: Doxepin Hcl 25 MG Capsule PO (22:20)
[2024-03-18] MEDS: 0.9% Normal Saline (250mL Bag) 250 ML 15 ML IV (22:26)
[2024-03-19 05:57] LABS: Absolute Lymphocyte Count 1.61 X10^3/uL (0.83-4.51); Absolute Neutrophil Count 1.6 X10^3/uL (2.0-7.7); Basophil# 0.03 X10^3/uL; Basophil% 0.7 % (0-1); Eosinophil# 0.29 X10^3/uL; Eosinophils% 7.1 % (0-5); Hematocrit 32.9 % (37-47); Lymphocyte # 1.61 X10^3/ul (0.83-4.51); Lymphocyte % 39.3 % (19-41); Mean Corp Hgb Conc 30.4 g/dL (32-36); Mean Corpuscular Hgb 26.8 pg (27.0-32.0); Mean Corpuscular Volume 88.2 fL (81-99); Mean Platelet Vol. 9.7 fl (6.2-12.0); Monocyte# 0.58 X10^3/uL; Monocyte% 14.1 % (0-10); NRBC Flagged by Analyzer 0 % (0-5); Neutrophil # 1.57 X10^3/uL (2.7-7.7); Neutrophil % 38.3 % (47-70); Platelet Count 188 K/mm3 (150-450); RBC Distribution Width CV 14.2 % (11.6-14.6); RBC Distribution Width SD 45.2 fl (35.1-43.9); Red Blood Count 3.73 M/mm3 (4.2-5.4); White Blood Count 4.1 K/mm3 (4.4-11.0)
[2024-03-19] MEDS: 0.9% Saline Lock 10 ML Syringe IV ×3 (06:21→21:11)
[2024-03-19 06:23] LABS: Bedside Glucose 152 mg/dL (74-106)
[2024-03-19] MEDS: Cefepime HCl 2 GM in 0.9% NS 100 ML Minibag Q8 IV ×3 (06:23→21:13)
[2024-03-19] MEDS: Enoxaparin 40 MG/0.4 ML Syringe SC (06:23)
[2024-03-19 06:24] LABS: Anion Gap 4 (5-15); BUN 29 mg/dL (7-18); Calcium,Total 8.4 mg/dL (8.5-10.1); Chloride 104 mmol/L (98-107); Creatinine, Serum 0.69 mg/dL (0.55-1.02); EST Glomerular Filtration Rate 92 mL/min (>60); Est Glom Filt Rate - Afr Amer 112 mL/min (>60); Estimated Creatinine Clearance 109.56 ml/min; Glucose 183 mg/dL (74-106); Potassium 3.8 mmol/L (3.5-5.1); Sodium Level 139 mmol/L (136-145)
[2024-03-19] MEDS: levoFLOXacin 500 MG Tablet PO (06:24)
[2024-03-19] MEDS: Pregabalin 50 MG Capsule 150 MG PO ×3 (06:24→21:05)
[2024-03-19] MEDS: Levothyroxine 150 MCG Tablet PO (06:24)
[2024-03-19 06:35] LABS: Erythrocyte Sedimentation Rate 17 mm/hr (0-30)
--- NOTE | 2024-03-19 07:22 | NURSING ---
0400: Spoke w/ pharmacist, Pérez, as this nurse administered the last two capsules of Lyrica 75 mg during hs med pass. He notes the pharmacy only has 50 mg capsules in stock currently and will adjust dosing on the NOV to administer three capsules per each dose. Pharmacy will follow-up with the rotary driller helper on the status of the 75 mg capsules.
[2024-03-19] MEDS: Insulin Lispro 100 UNIT/ML INSULN.PEN 10 UNIT SC ×3 (07:53→18:02)
[2024-03-19] MEDS: Juven (unflavored) Packet 1 PACKET PO ×2 (07:53→18:02)
[2024-03-19 08:00] VITALS: BP 126/70; PULSE 74
[2024-03-19] MEDS: Aspirin E.C. 81 MG Tablet PO (08:00)
[2024-03-19] MEDS: Paroxetine 20 MG Tablet 40 MG PO (08:00)
[2024-03-19] MEDS: Metoprolol(XL)Succ 200 MG Tablet PO (08:00)
[2024-03-19] MEDS: Glimepiride 4 MG Tablet PO (08:00)
[2024-03-19] MEDS: Montelukast 10 MG Tablet PO (08:00)
[2024-03-19] MEDS: Senna/Docusate Sodium 1 Tablet 2 TABLET PO ×2 (08:00→21:10)
[2024-03-19] MEDS: Pantoprazole Sodium 40 MG Tablet PO (08:00)
[2024-03-19] MEDS: Losartan Potassium 100 MG Tablet PO (08:01)
[2024-03-19] MEDS: Celecoxib 200 MG Capsule PO (08:01)
[2024-03-19] MEDS: Potassium Chloride Oral Tablet 20 MEQ PO (08:01)
[2024-03-19] MEDS: Menthol/Lanolin/Calamine/Znox 113 GM Tube 1 APPLIC TOPICAL ×2 (08:01→21:11)
[2024-03-19 10:00] VITALS: BMI 34.4
[2024-03-19 11:24] LABS: Bedside Glucose 159 mg/dL (74-106)
[2024-03-19] MEDS: oxyCODONE 5 MG Tablet PO ×2 (12:07→21:05)
[2024-03-19 13:15] VITALS: BP 123/70; PULSE 73; RESP 16; TEMP 35.8; O2SAT 98
[2024-03-19 16:54] LABS: Bedside Glucose 164 mg/dL (74-106)
[2024-03-19] MEDS: Acetaminophen 500 MG Tablet 1000 MG PO (21:04)
[2024-03-19] MEDS: traZODone 50 MG Tablet 150 MG PO (21:09)
[2024-03-19] MEDS: Doxepin Hcl 25 MG Capsule PO (21:10)
[2024-03-19] MEDS: Atorvastatin Calcium 80 MG Tablet PO (21:10)
[2024-03-19 21:23] LABS: Bedside Glucose 205 mg/dL (74-106)
[2024-03-20] MEDS: 0.9% Saline Lock 10 ML Syringe IV ×3 (06:11→20:48)
[2024-03-20] MEDS: Cefepime HCl 2 GM in 0.9% NS 100 ML Minibag Q8 IV ×3 (06:12→20:48)
[2024-03-20] MEDS: 0.9% Normal Saline (250mL Bag) 250 ML 15 ML IV (06:13)
[2024-03-20] MEDS: Enoxaparin 40 MG/0.4 ML Syringe SC (06:13)
[2024-03-20] MEDS: Pregabalin 75 MG Capsule 150 MG PO ×3 (06:14→20:48)
[2024-03-20] MEDS: levoFLOXacin 500 MG Tablet PO (06:14)
[2024-03-20] MEDS: Acetaminophen 500 MG Tablet 1000 MG PO ×3 (06:15→21:01)
[2024-03-20] MEDS: Levothyroxine 150 MCG Tablet PO (06:15)
[2024-03-20] MEDS: oxyCODONE 5 MG Tablet PO ×3 (06:16→21:02)
[2024-03-20 06:24] LABS: Bedside Glucose 128 mg/dL (74-106)
--- NOTE | 2024-03-20 07:59 | PCM.PROGNOTE ---
Subjective Subjective Patient seen and evaluated this a.m. with wound care nurse present to assist for wound VAC change. Patient does state a little tenderness to the outside of the ankle and states that it kind of comes and goes. She continues to remain nonweightbearing to the left lower extremity and also continues to elevate the extremity when at rest. Cites no difficulties with wound VAC. Denies constitutional symptoms. Denies further complaints. Objective Data Objective Data Vital Signs: Vital Signs Temp Pulse Resp BP Pulse Ox O2 Del Method 96.5 F L 73 16 123/70 H 98 Room Air 03/19/24 13:15 03/19/24 13:15 03/19/24 13:15 03/19/24 13:15 03/19/24 13:15 03/19/24 14:20 Oxygen Delivery Method Room Air Weight: 102.739 kg Body Mass Index (BMI) 34.4 Intake & Output: Intake and Output for Last 24 Hours 03/18/24 03/19/24 03/20/24 23:59 23:59 23:59 Intake Total 1260 / 1260 2225.25 / 2225.25 100 / 100 Output Total 800 / 800 1100 / 1100 Balance 460 / 460 2225.25 / 2225.25 -1000 / -1000 Lab / Micro Data 03/19/24 05:25 03/19/24 05:25 Labs: Laboratory Results - last 24 hr 03/19/24 11:07: POC Glucose 159 H 03/19/24 16:36: POC Glucose 164 H 03/19/24 21:03: POC Glucose 205 H 03/20/24 06:04: POC Glucose 128 H Micro: Microbiology 03/08/24 06:10 Nasal Secretion SARS-CoV-2 Antigen (Rapid) - Final 03/01/24 06:46 Nasal Secretion SARS-CoV-2 Antigen (Rapid) - Final Physical Exam Const alert, oriented x3 and no apparent distress Constitutional Narrative: Nontoxic-appearing General Appearance: cooperative HEENT normocephalic Eyes General Eye: normal appearance of both eyes Neck General: normal visual inspection Lymph Lymphatic: no lymphadenopathy noted and no lymphedema noted Resp normal respiratory effort Cardio regular rate and regular rhythm Extremity Extremity Narrative: Lower extremity: Vascular: DP and PT pulses weakly palpable. CFT less than 5 seconds to digits. Normal temperature gradient. Hair growth is absent to digits/foot. Neurologic: Decreased protective sensation tested with 5.07 g Lindsay Macie monofilament consistent with diabetic peripheral polyneuropathy. Gross sensation is intact. Light sensation is diminished. Musculoskeletal: Muscle strength was deferred secondary to previous Achilles tendon surgery Dermatologic: There is an ulceration noted to the posterior aspect of the left lower extremity secondary to surgical dehiscence with significant desquamation of the skin overlying the Achilles tendon with exposure of the Achilles tendon and surgical sutures. There is healthy granular tissue postdebridement. No purulent drainage, no palpable fluctuance/bogginess, no localized erythema about the wound. Achilles tendon is visible and appears intact distally with sutures exposed. There is a wound VAC applied to the wound site. 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 POD #54 Due to surgical dehiscence secondary to placing weight to the foot she did return to the OR on 02/22/2024 for debridement of the necrotic tissue with application of advanced wound care product and application of wound VAC to the left lower extremity. Left Lower Extremity: There is an ulceration noted to the posterior aspect of the left lower extremity secondary to surgical dehiscence with significant desquamation of the skin overlying the Achilles tendon with exposure of the Achilles tendon and surgical sutures. There is healthy granular tissue postdebridement. No purulent drainage, no palpable fluctuance/bogginess, no localized erythema about the wound. Achilles tendon is visible and appears intact distally with sutures exposed. There is a wound VAC applied to the wound site There is noted continued improvement in granulation tissue about the ulceration site today. No signs of infection. Overall tissue is healthy. Tendon remains intact and viable. WBC WNL, HgbA1c 6.2% on 02/21/2024. Patient continuing IV antibiotic via PICC line Vanco/cefepime due to PCN allergy. Patient did undergo wound VAC change today with assistance of wound nurse. Following placement of wound VAC over the Adaptic there is a good seal with no leak detected 125 mmHg continuous pressure. VAC change M, W, F Patient is to remain nonweightbearing to the left lower extremity with the assistance of walker/wheelchair She is to elevate left lower extremity at all times of rest and is to not have pressure against the posterior aspect of the left lower extremity/Achilles tendon area. Medicine currently following for medical management, they are greatly appreciated Infectious disease following for IV antibiotic guidance Wound nurse following for assistance in changing of wound VAC, she is greatly appreciated. Discussed with patient continue plan for wound VAC changes every M, W, F and to continue therapy to aid in building strength and for rehabilitation prior to her discharge home. Discussed continued wound care with application of the wound VAC. Discussed possible further debridement may be required until site is healed. Also discussed possibility of continuing applications of advanced wound care product/grafting to aid in her healing. I will continue to follow the patient weekly while in house in the transitional care unit. As granulation tissue continues to improve and coverage begins to occur over the Achilles tendon consideration will be given to follow-up in wound care center for application of advanced wound care product/grafting. Jr. Kathryn BustsoP.M. [facility] [phone]
[2024-03-20] MEDS: Insulin Lispro 100 UNIT/ML INSULN.PEN 10 UNIT SC ×3 (08:43→17:47)
[2024-03-20] MEDS: Montelukast 10 MG Tablet PO (08:44)
[2024-03-20] MEDS: Aspirin E.C. 81 MG Tablet PO (08:44)
[2024-03-20] MEDS: Paroxetine 20 MG Tablet 40 MG PO (08:44)
[2024-03-20] MEDS: Juven (unflavored) Packet 1 PACKET PO ×2 (08:44→17:48)
[2024-03-20] MEDS: Glimepiride 4 MG Tablet PO (08:44)
[2024-03-20] MEDS: Senna/Docusate Sodium 1 Tablet 2 TABLET PO ×2 (08:44→20:49)
[2024-03-20] MEDS: Pantoprazole Sodium 40 MG Tablet PO (08:44)
[2024-03-20 08:45] VITALS: BP 116/70; PULSE 69
[2024-03-20] MEDS: Metoprolol(XL)Succ 200 MG Tablet PO (08:45)
[2024-03-20] MEDS: Celecoxib 200 MG Capsule PO (08:45)
[2024-03-20] MEDS: Losartan Potassium 100 MG Tablet PO (08:45)
[2024-03-20] MEDS: Potassium Chloride Oral Tablet 20 MEQ PO (08:45)
[2024-03-20 11:41] LABS: Bedside Glucose 151 mg/dL (74-106)
[2024-03-20] MEDS: Menthol/Lanolin/Calamine/Znox 113 GM Tube 1 APPLIC TOPICAL ×2 (11:56→20:49)
[2024-03-20 16:00] VITALS: BP 142/73; PULSE 73; RESP 16; TEMP 35.6; O2SAT 94
[2024-03-20 17:12] LABS: Bedside Glucose 188 mg/dL (74-106)
[2024-03-20] MEDS: traZODone 50 MG Tablet 150 MG PO (20:49)
[2024-03-20] MEDS: Atorvastatin Calcium 80 MG Tablet PO (20:50)
[2024-03-20] MEDS: Doxepin Hcl 25 MG Capsule PO (20:50)
[2024-03-20 21:40] LABS: Bedside Glucose 174 mg/dL (74-106)
[2024-03-21 06:33] LABS: Bedside Glucose 159 mg/dL (74-106)
[2024-03-21] MEDS: levoFLOXacin 500 MG Tablet PO (06:49)
[2024-03-21] MEDS: Cefepime HCl 2 GM in 0.9% NS 100 ML Minibag Q8 IV ×3 (06:49→21:01)
[2024-03-21] MEDS: Levothyroxine 150 MCG Tablet PO (06:49)
[2024-03-21] MEDS: 0.9% Saline Lock 10 ML Syringe IV ×4 (06:49→21:50)
[2024-03-21] MEDS: Enoxaparin 40 MG/0.4 ML Syringe SC (06:49)
[2024-03-21] MEDS: Pregabalin 75 MG Capsule 150 MG PO ×3 (06:51→21:02)
[2024-03-21 07:52] VITALS: BP 126/88; PULSE 69; RESP 16; TEMP 35.9; O2SAT 94
[2024-03-21] MEDS: Glimepiride 4 MG Tablet PO (08:04)
[2024-03-21] MEDS: Insulin Lispro 100 UNIT/ML INSULN.PEN 10 UNIT SC ×3 (08:04→17:41)
[2024-03-21] MEDS: Juven (unflavored) Packet 1 PACKET PO ×2 (08:04→17:41)
[2024-03-21] MEDS: Losartan Potassium 100 MG Tablet PO (08:05)
[2024-03-21] MEDS: Celecoxib 200 MG Capsule PO (08:05)
[2024-03-21] MEDS: Aspirin E.C. 81 MG Tablet PO (08:05)
[2024-03-21] MEDS: Menthol/Lanolin/Calamine/Znox 113 GM Tube 1 APPLIC TOPICAL ×2 (08:05→21:02)
[2024-03-21] MEDS: Pantoprazole Sodium 40 MG Tablet PO (08:06)
[2024-03-21] MEDS: Paroxetine 20 MG Tablet 40 MG PO (08:06)
[2024-03-21] MEDS: Montelukast 10 MG Tablet PO (08:06)
[2024-03-21] MEDS: Potassium Chloride Oral Tablet 20 MEQ PO (08:06)
[2024-03-21] MEDS: Senna/Docusate Sodium 1 Tablet 2 TABLET PO ×2 (08:06→21:03)
[2024-03-21 08:07] VITALS: PULSE 69
[2024-03-21] MEDS: Metoprolol(XL)Succ 200 MG Tablet PO (08:07)
[2024-03-21] MEDS: Acetaminophen 500 MG Tablet 1000 MG PO ×2 (08:10→14:12)
[2024-03-21] MEDS: oxyCODONE 5 MG Tablet PO ×3 (08:10→21:02)
[2024-03-21 11:12] LABS: Bedside Glucose 220 mg/dL (74-106)
[2024-03-21] MEDS: 0.9% Normal Saline (250mL Bag) 250 ML 15 ML IV (13:18)
[2024-03-21 16:28] LABS: Bedside Glucose 118 mg/dL (74-106)
[2024-03-21] MEDS: Atorvastatin Calcium 80 MG Tablet PO (21:03)
[2024-03-21] MEDS: traZODone 50 MG Tablet 150 MG PO (21:03)
[2024-03-21] MEDS: Doxepin Hcl 25 MG Capsule PO (21:03)
[2024-03-21 21:28] LABS: Bedside Glucose 162 mg/dL (74-106)
[2024-03-22] MEDS: Cefepime HCl 2 GM in 0.9% NS 100 ML Minibag Q8 IV ×3 (06:24→22:44)
[2024-03-22] MEDS: Pregabalin 75 MG Capsule 150 MG PO ×3 (06:24→22:48)
[2024-03-22] MEDS: 0.9% Saline Lock 10 ML Syringe IV ×4 (06:24→22:45)
[2024-03-22] MEDS: Enoxaparin 40 MG/0.4 ML Syringe SC (06:25)
[2024-03-22] MEDS: Levothyroxine 150 MCG Tablet PO (06:25)
[2024-03-22] MEDS: levoFLOXacin 500 MG Tablet PO (06:25)
[2024-03-22 06:32] VITALS: BP 125/47; PULSE 70; RESP 16; O2SAT 93
[2024-03-22 06:38] LABS: Bedside Glucose 145 mg/dL (74-106)
[2024-03-22 06:53] VITALS: RESP 14
[2024-03-22 08:21] VITALS: BP 100/53; PULSE 75; RESP 16; TEMP 36.1; O2SAT 94
[2024-03-22] MEDS: Juven (unflavored) Packet 1 PACKET PO ×2 (08:23→17:30)
[2024-03-22] MEDS: Menthol/Lanolin/Calamine/Znox 113 GM Tube 1 APPLIC TOPICAL ×2 (08:23→22:50)
[2024-03-22 08:24] VITALS: PULSE 75
[2024-03-22] MEDS: Pantoprazole Sodium 40 MG Tablet PO (08:24)
[2024-03-22] MEDS: Metoprolol(XL)Succ 200 MG Tablet PO (08:24)
[2024-03-22] MEDS: Insulin Lispro 100 UNIT/ML INSULN.PEN 10 UNIT SC ×3 (08:24→17:30)
[2024-03-22] MEDS: Losartan Potassium 100 MG Tablet PO (08:24)
[2024-03-22] MEDS: Glimepiride 4 MG Tablet PO (08:24)
[2024-03-22] MEDS: Paroxetine 20 MG Tablet 40 MG PO (08:24)
[2024-03-22] MEDS: Celecoxib 200 MG Capsule PO (08:24)
[2024-03-22] MEDS: Aspirin E.C. 81 MG Tablet PO (08:24)
[2024-03-22] MEDS: Senna/Docusate Sodium 1 Tablet 2 TABLET PO ×2 (08:24→22:50)
[2024-03-22] MEDS: Montelukast 10 MG Tablet PO (08:25)
[2024-03-22] MEDS: Potassium Chloride Oral Tablet 20 MEQ PO (08:25)
[2024-03-22] MEDS: TIRZEPATIDE 7.5 MG/0.5 ML PEN.INJCTR SQ (08:28)
[2024-03-22 11:41] LABS: Bedside Glucose 201 mg/dL (74-106)
[2024-03-22] MEDS: oxyCODONE 5 MG Tablet PO ×2 (14:22→22:48)
[2024-03-22 18:06] LABS: Bedside Glucose 134 mg/dL (74-106)
[2024-03-22] MEDS: 0.9% Normal Saline (250mL Bag) 250 ML 15 ML IV (22:44)
[2024-03-22] MEDS: traZODone 50 MG Tablet 150 MG PO (22:49)
[2024-03-22] MEDS: Atorvastatin Calcium 80 MG Tablet PO (22:49)
[2024-03-22] MEDS: Doxepin Hcl 25 MG Capsule PO (22:50)
[2024-03-22] MEDS: Acetaminophen 500 MG Tablet 1000 MG PO (22:52)
[2024-03-22 23:07] LABS: Bedside Glucose 131 mg/dL (74-106)
[2024-03-23] MEDS: 0.9% Saline Lock 10 ML Syringe IV ×4 (06:24→23:23)
[2024-03-23] MEDS: Cefepime HCl 2 GM in 0.9% NS 100 ML Minibag Q8 IV ×3 (06:24→21:39)
[2024-03-23] MEDS: 0.9% Normal Saline (250mL Bag) 250 ML 15 ML IV (06:25)
[2024-03-23] MEDS: Enoxaparin 40 MG/0.4 ML Syringe SC (06:28)
[2024-03-23] MEDS: Levothyroxine 150 MCG Tablet PO (06:29)
[2024-03-23] MEDS: Pregabalin 75 MG Capsule 150 MG PO ×3 (06:29→21:33)
[2024-03-23] MEDS: levoFLOXacin 500 MG Tablet PO (06:29)
[2024-03-23 06:48] LABS: Bedside Glucose 95 mg/dL (74-106)
[2024-03-23] MEDS: Juven (unflavored) Packet 1 PACKET PO ×2 (08:35→17:43)
[2024-03-23] MEDS: Potassium Chloride Oral Tablet 20 MEQ PO (08:35)
[2024-03-23 08:36] VITALS: BP 129/69; PULSE 78
[2024-03-23] MEDS: Montelukast 10 MG Tablet PO (08:36)
[2024-03-23] MEDS: Metoprolol(XL)Succ 200 MG Tablet PO (08:36)
[2024-03-23] MEDS: Glimepiride 4 MG Tablet PO (08:36)
[2024-03-23] MEDS: Aspirin E.C. 81 MG Tablet PO (08:36)
[2024-03-23] MEDS: Paroxetine 20 MG Tablet 40 MG PO (08:36)
[2024-03-23] MEDS: Senna/Docusate Sodium 1 Tablet 2 TABLET PO ×2 (08:36→21:32)
[2024-03-23] MEDS: Losartan Potassium 100 MG Tablet PO (08:36)
[2024-03-23] MEDS: Pantoprazole Sodium 40 MG Tablet PO (08:36)
[2024-03-23] MEDS: Celecoxib 200 MG Capsule PO (08:36)
[2024-03-23] MEDS: Menthol/Lanolin/Calamine/Znox 113 GM Tube 1 APPLIC TOPICAL ×2 (08:37→21:33)
[2024-03-23 11:50] LABS: Bedside Glucose 207 mg/dL (74-106)
[2024-03-23] MEDS: Insulin Lispro 100 UNIT/ML INSULN.PEN 10 UNIT SC ×2 (11:54→17:42)
[2024-03-23 14:57] VITALS: BP 139/73; PULSE 71; RESP 16; TEMP 36.1; O2SAT 95
[2024-03-23 16:49] LABS: Bedside Glucose 148 mg/dL (74-106)
[2024-03-23] MEDS: traZODone 50 MG Tablet 150 MG PO (21:32)
[2024-03-23] MEDS: Atorvastatin Calcium 80 MG Tablet PO (21:32)
[2024-03-23] MEDS: Acetaminophen 500 MG Tablet 1000 MG PO (21:32)
[2024-03-23] MEDS: Doxepin Hcl 25 MG Capsule PO (21:32)
[2024-03-23] MEDS: oxyCODONE 5 MG Tablet PO (21:33)
[2024-03-23 21:37] LABS: Bedside Glucose 173 mg/dL (74-106)
[2024-03-24] MEDS: Enoxaparin 40 MG/0.4 ML Syringe SC (05:48)
[2024-03-24] MEDS: Levothyroxine 150 MCG Tablet PO (05:49)
[2024-03-24] MEDS: levoFLOXacin 500 MG Tablet PO (05:49)
[2024-03-24] MEDS: Pregabalin 75 MG Capsule 150 MG PO ×3 (05:49→21:51)
[2024-03-24] MEDS: Cefepime HCl 2 GM in 0.9% NS 100 ML Minibag Q8 IV ×3 (05:49→21:48)
[2024-03-24] MEDS: 0.9% Saline Lock 10 ML Syringe IV ×4 (05:50→19:54)
[2024-03-24] MEDS: oxyCODONE 5 MG Tablet PO ×2 (06:00→19:53)
[2024-03-24] MEDS: Acetaminophen 500 MG Tablet 1000 MG PO ×2 (06:00→19:53)
[2024-03-24 06:46] LABS: Bedside Glucose 116 mg/dL (74-106)
[2024-03-24 08:21] VITALS: BP 132/67; PULSE 72
[2024-03-24] MEDS: Metoprolol(XL)Succ 200 MG Tablet PO (08:21)
[2024-03-24] MEDS: Juven (unflavored) Packet 1 PACKET PO ×2 (08:21→17:47)
[2024-03-24] MEDS: Insulin Lispro 100 UNIT/ML INSULN.PEN 10 UNIT SC ×3 (08:21→17:47)
[2024-03-24] MEDS: Potassium Chloride Oral Tablet 20 MEQ PO (08:22)
[2024-03-24] MEDS: Montelukast 10 MG Tablet PO (08:22)
[2024-03-24] MEDS: Glimepiride 4 MG Tablet PO (08:22)
[2024-03-24] MEDS: Senna/Docusate Sodium 1 Tablet 2 TABLET PO ×2 (08:22→21:48)
[2024-03-24] MEDS: Pantoprazole Sodium 40 MG Tablet PO (08:22)
[2024-03-24] MEDS: Paroxetine 20 MG Tablet 40 MG PO (08:22)
[2024-03-24] MEDS: Celecoxib 200 MG Capsule PO (08:22)
[2024-03-24] MEDS: Aspirin E.C. 81 MG Tablet PO (08:22)
[2024-03-24] MEDS: Losartan Potassium 100 MG Tablet PO (08:22)
[2024-03-24] MEDS: Menthol/Lanolin/Calamine/Znox 113 GM Tube 1 APPLIC TOPICAL ×2 (08:25→21:54)
[2024-03-24 10:00] VITALS: BP 132/67; PULSE 96; RESP 16; TEMP 35.8; O2SAT 96
[2024-03-24 11:34] LABS: Bedside Glucose 166 mg/dL (74-106)
[2024-03-24] MEDS: 0.9% Normal Saline (250mL Bag) 250 ML 15 ML IV (13:11)
[2024-03-24 17:16] LABS: Bedside Glucose 155 mg/dL (74-106)
[2024-03-24 21:44] LABS: Bedside Glucose 162 mg/dL (74-106)
[2024-03-24] MEDS: Doxepin Hcl 25 MG Capsule PO (21:48)
[2024-03-24] MEDS: Atorvastatin Calcium 80 MG Tablet PO (21:48)
[2024-03-24] MEDS: traZODone 50 MG Tablet 150 MG PO (21:49)
[2024-03-25 06:00] VITALS: O2SAT 98
[2024-03-25] MEDS: 0.9% Saline Lock 10 ML Syringe IV ×3 (06:31→22:01)
[2024-03-25] MEDS: Pregabalin 75 MG Capsule 150 MG PO ×3 (06:33→21:59)
[2024-03-25] MEDS: Cefepime HCl 2 GM in 0.9% NS 100 ML Minibag Q8 IV ×3 (06:33→22:01)
[2024-03-25] MEDS: oxyCODONE 5 MG Tablet PO ×3 (06:34→21:58)
[2024-03-25] MEDS: Acetaminophen 500 MG Tablet 1000 MG PO ×3 (06:34→21:59)
[2024-03-25] MEDS: Enoxaparin 40 MG/0.4 ML Syringe SC (06:35)
[2024-03-25] MEDS: Levothyroxine 150 MCG Tablet PO (06:35)
[2024-03-25] MEDS: levoFLOXacin 500 MG Tablet PO (06:35)
[2024-03-25 06:46] LABS: Bedside Glucose 160 mg/dL (74-106)
[2024-03-25] MEDS: Glimepiride 4 MG Tablet PO (07:59)
[2024-03-25] MEDS: Insulin Lispro 100 UNIT/ML INSULN.PEN 10 UNIT SC ×3 (07:59→17:48)
[2024-03-25] MEDS: Celecoxib 200 MG Capsule PO (08:00)
[2024-03-25] MEDS: Losartan Potassium 100 MG Tablet PO (08:00)
[2024-03-25] MEDS: Aspirin E.C. 81 MG Tablet PO (08:00)
[2024-03-25] MEDS: Juven (unflavored) Packet 1 PACKET PO ×2 (08:00→17:51)
[2024-03-25] MEDS: Pantoprazole Sodium 40 MG Tablet PO (08:01)
[2024-03-25] MEDS: Potassium Chloride Oral Tablet 20 MEQ PO (08:01)
[2024-03-25] MEDS: Paroxetine 20 MG Tablet 40 MG PO (08:01)
[2024-03-25 08:02] VITALS: BP 116/74; PULSE 80
[2024-03-25] MEDS: Metoprolol(XL)Succ 200 MG Tablet PO (08:02)
[2024-03-25] MEDS: Senna/Docusate Sodium 1 Tablet 2 TABLET PO ×2 (08:02→22:50)
[2024-03-25] MEDS: Montelukast 10 MG Tablet PO (08:02)
[2024-03-25] MEDS: Menthol/Lanolin/Calamine/Znox 113 GM Tube 1 APPLIC TOPICAL ×2 (08:10→22:50)
--- NOTE | 2024-03-25 08:38 | PN.TCU_ITS ---
Subjective Subjective Resident seen examined for regulatory visit. She is doing well, eating breakfast, no new problems, concerns, issues, complaints. Dr. Smith following wound VAC left foot MWF. Dr. Mixon following, Cefepime iv, Levaquin po thru 04/04/2024. Objective Data Objective Data Vital Signs: Vital Signs Temp Pulse Resp BP Pulse Ox O2 Del Method 96.5 F L 80 16 116/74 98 Room Air 03/24/24 10:00 03/25/24 08:02 03/24/24 10:00 03/25/24 08:02 03/25/24 06:00 03/25/24 06:00 Oxygen Delivery Method Room Air Weight: 102.739 kg Body Mass Index (BMI) 34.4 Intake & Output: Intake and Output for Last 24 Hours 03/23/24 03/24/24 03/25/24 23:59 23:59 23:59 Intake Total 1750 / 1750 2403.25 / 2403.25 Output Total 600 / 600 550 / 550 Balance 1750 / 1750 1803.25 / 1803.25 -550 / -550 Lab / Micro Data Attestation: I reviewed the patient's lab results. 03/19/24 05:25 03/19/24 05:25 Labs: Laboratory Results - last 24 hr 03/24/24 11:09: POC Glucose 166 H 03/24/24 16:53: POC Glucose 155 H 03/24/24 21:12: POC Glucose 162 H 03/25/24 06:25: POC Glucose 160 H Micro: Microbiology 03/08/24 06:10 Nasal Secretion SARS-CoV-2 Antigen (Rapid) - Final 03/01/24 06:46 Nasal Secretion SARS-CoV-2 Antigen (Rapid) - Final Physical Exam Const alert General Appearance: cooperative HEENT normocephalic Eyes PERRL and EOMs intact bilaterally Neck supple, no JVD and no carotid bruits Resp normal respiratory effort, normal air movement and clear to auscultation bilaterally Cardio regular rate and regular rhythm GI normal to inspection, nondistended, normoactive bowel sounds, non-tender and non-distended Extremity normal capillary refill Extremity Narrative: Left lower extremity wound VAC, dressed. General Extremity: Negative for edema Skin no rashes or lesions noted General Skin Exam: no breakdown Psych affect normal Appearance: appropriate Assessment & Plan Assessment/Plan (1) Debility: (2) Diabetic infection of left foot: (3) Acute osteomyelitis of left calcaneus: (4) Diabetes mellitus with diabetic polyneuropathy: QUALIFIERS: Diabetes mellitus prison insulin use: with terminologist use Diabetes mellitus type: type 2 Qualified Code(s): E11.42 - Type 2 diabetes mellitus with diabetic polyneuropathy; Z79.4 - alf (current) use of insulin (5) Type 2 diabetes mellitus with hyperglycemia: (6) GERD (gastroesophageal reflux disease): (7) Depression: (8) Hyperlipidemia: (9) Essential (primary) hypertension: (10) Osteoarthritis: (11) Insomnia: (12) Hypothyroidism: QUALIFIERS: Hypothyroidism type: unspecified Qualified Code(s): E 03.9 - Hypothyroidism, unspecified (13) Asthma: (14) Hypokalemia: PLAN: Plan 58 year old female with below past medical history significant for Type 2 Diabetes Mellitus hospitalized for osteomyelitis left heel, underwent debridement 02/22/[address] Smith, admitted to TCU with debility, here for rehabilitation, strengthening, intravenous antibiotics, prior to discharge alone. * Debility - PT/OT. * Pain - Tylenol 1000mg q6 prn pain (1-3), Tramadol 50mg q6 prn pain (4-5), Oxycodone 5mg q4 prn pain (6-10). * Bowel - senna/colace 2 tablets bid, Magnesium citrate 300ml daily prn. * Adult immunization - Administer pneumonia vaccine, covid vaccine, flu vaccine as appropriate. * DVT prophylaxis - Lovenox 40mg sc daily. * Asthma - Singulair 10mg daily, Albuterol 1 puff q6 prn. * CV prophylaxis - Aspirin 81mg daily. * Left heel osteomyelitis s/p debridement - Cefepime 2gm iv q8/Levaquin 500mg po daily thru 04/04/2024, Juvien 1 packet bidcm, consult Dr. Smith, consult Dr. Mixon to follow. * Diabetes Mellitus II - Glimepiride 4mg daily, Lispro 10 units tid, Mounjaro 7.5mg per week. * Insomnia - Trazodone 150mg qhs, Doxepin 25mg qhs, stable chronic terminologist use, GDR not recommended. * Hypothyroidism - Levothyroxine 150mcg daily. * Hypertension - Metoprolol succinate 200mg daily, Losartan 100mg daily. * Nausea - Zofran odt 4mg q8h prn. * GERD - Pantoprazole 40mg daily. * Depression - Paroxetine 40mg daily, stable chronic terminologist use, GDR not recommended. * Hypokalemia - KCL 20meq daily. * Diabetic polyneuropathy - Lyrica 150mg tid. * Hyperlipidemia - Rosuvastatin 40mg qhs. * Osteoarthritis - Celebrex 200mg daily. * Nutrition - Drew 1 packet po bidcm. * Skin irritation - Calmoseptine topical bid. * Tobacco Abuse - Nicotine 21mg td daily.
[2024-03-25 11:22] LABS: Bedside Glucose 237 mg/dL (74-106)
--- NOTE | 2024-03-25 11:39 | WOUNDNOTE ---
wound photo: left Achilles
[2024-03-25] MEDS: 0.9% Normal Saline (250mL Bag) 250 ML 200 ML IV (14:33)
[2024-03-25 16:00] VITALS: BP 123/61; PULSE 80; RESP 16; TEMP 35.6; O2SAT 94
[2024-03-25 16:44] LABS: Bedside Glucose 171 mg/dL (74-106)
[2024-03-25 22:00] LABS: Bedside Glucose 263 mg/dL (74-106)
[2024-03-25] MEDS: 0.9% Normal Saline (250mL Bag) 250 ML 15 ML IV (22:02)
[2024-03-25] MEDS: traZODone 50 MG Tablet 150 MG PO (22:50)
[2024-03-25] MEDS: Doxepin Hcl 25 MG Capsule PO (22:50)
[2024-03-25] MEDS: Atorvastatin Calcium 80 MG Tablet PO (22:50)
[2024-03-26] MEDS: Enoxaparin 40 MG/0.4 ML Syringe SC (05:43)
[2024-03-26] MEDS: levoFLOXacin 500 MG Tablet PO (05:44)
[2024-03-26] MEDS: Cefepime HCl 2 GM in 0.9% NS 100 ML Minibag Q8 IV ×3 (05:44→22:56)
[2024-03-26] MEDS: 0.9% Saline Lock 10 ML Syringe IV ×3 (05:44→22:57)
[2024-03-26] MEDS: Levothyroxine 150 MCG Tablet PO (05:44)
[2024-03-26] MEDS: Pregabalin 75 MG Capsule 150 MG PO ×3 (05:44→23:00)
[2024-03-26] MEDS: 0.9% Normal Saline (250mL Bag) 250 ML 15 ML IV ×2 (05:46→22:57)
[2024-03-26 06:21] LABS: Bedside Glucose 147 mg/dL (74-106)
[2024-03-26 08:23] LABS: Erythrocyte Sedimentation Rate 20 mm/hr (0-30)
[2024-03-26 08:30] VITALS: BP 117/59; PULSE 701; RESP 18; TEMP 35.9; O2SAT 96
[2024-03-26 08:30] LABS: Absolute Lymphocyte Count 1.38 X10^3/uL (0.83-4.51); Absolute Neutrophil Count 1.4 X10^3/uL (2.0-7.7); Basophil# 0.03 X10^3/uL; Basophil% 0.8 % (0-1); Eosinophil# 0.27 X10^3/uL; Eosinophils% 7.6 % (0-5); Hematocrit 33.8 % (37-47); Hemoglobin 10.3 g/dL (12.0-15.0); Lymphocyte # 1.38 X10^3/ul (0.83-4.51); Lymphocyte % 38.7 % (19-41); Mean Corp Hgb Conc 30.5 g/dL (32-36); Mean Corpuscular Hgb 26.4 pg (27.0-32.0); Mean Corpuscular Volume 86.7 fL (81-99); Mean Platelet Vol. 9.6 fl (6.2-12.0); NRBC Flagged by Analyzer 0 % (0-5); Neutrophil # 1.38 X10^3/uL (2.7-7.7); Neutrophil % 38.6 % (47-70); Platelet Count 180 K/mm3 (150-450); RBC Distribution Width CV 14.1 % (11.6-14.6); White Blood Count 3.6 K/mm3 (4.4-11.0)
[2024-03-26] MEDS: Insulin Lispro 100 UNIT/ML INSULN.PEN 10 UNIT SC ×3 (08:47→17:41)
[2024-03-26] MEDS: Losartan Potassium 100 MG Tablet PO (08:48)
[2024-03-26] MEDS: Glimepiride 4 MG Tablet PO (08:48)
[2024-03-26] MEDS: Celecoxib 200 MG Capsule PO (08:48)
[2024-03-26] MEDS: Juven (unflavored) Packet 1 PACKET PO ×2 (08:48→17:41)
[2024-03-26 08:49] VITALS: BP 117/59; PULSE 70
[2024-03-26] MEDS: Aspirin E.C. 81 MG Tablet PO (08:49)
[2024-03-26] MEDS: Pantoprazole Sodium 40 MG Tablet PO (08:49)
[2024-03-26] MEDS: Senna/Docusate Sodium 1 Tablet 2 TABLET PO ×2 (08:49→23:01)
[2024-03-26] MEDS: Montelukast 10 MG Tablet PO (08:49)
[2024-03-26] MEDS: Metoprolol(XL)Succ 200 MG Tablet PO (08:49)
[2024-03-26] MEDS: Potassium Chloride Oral Tablet 20 MEQ PO (08:50)
[2024-03-26] MEDS: Paroxetine 20 MG Tablet 40 MG PO (08:50)
[2024-03-26] MEDS: Menthol/Lanolin/Calamine/Znox 113 GM Tube 1 APPLIC TOPICAL ×2 (08:51→23:02)
[2024-03-26] MEDS: oxyCODONE 5 MG Tablet PO ×2 (08:59→23:00)
[2024-03-26 09:53] LABS: Anion Gap 3 (5-15); BUN 27 mg/dL (7-18); Calcium,Total 8.2 mg/dL (8.5-10.1); Chloride 107 mmol/L (98-107); Glucose 133 mg/dL (74-106); Potassium 3.8 mmol/L (3.5-5.1); Sodium Level 140 mmol/L (136-145)
[2024-03-26 10:00] VITALS: BMI 35.2
--- NOTE | 2024-03-26 11:12 | NURSING ---
Labs faxed to Dr Mixon.
[2024-03-26 11:20] LABS: Bedside Glucose 175 mg/dL (74-106)
--- NOTE | 2024-03-26 13:22 | CASEMGMT ---
Social Work ROMEO reported to this worker pt would benefit from additional assistance and connection to resources in the community. Pt unsure if she has a CM through [facility]. SW to follow up. Paper resources have previously been given to pt during this stay. Pt is active on Medicaid. SW phoned [facility] and pt is not listed as a client. SW completed a Care Coordination referral online via [facility]. GENTRY VogtW
[2024-03-26 16:44] LABS: BUN/Creat Ratio 33.3 RATIO (10-20); Creatinine, Serum 0.81 mg/dL (0.55-1.02); EST Glomerular Filtration Rate 77 mL/min (>60); Est Glom Filt Rate - Afr Amer 93 mL/min (>60); Estimated Creatinine Clearance 94.81 ml/min
[2024-03-26 18:02] LABS: Bedside Glucose 178 mg/dL (74-106)
[2024-03-26 21:52] LABS: Bedside Glucose 180 mg/dL (74-106)
[2024-03-26] MEDS: Acetaminophen 500 MG Tablet 1000 MG PO (23:00)
[2024-03-26] MEDS: Atorvastatin Calcium 80 MG Tablet PO (23:01)
[2024-03-26] MEDS: traZODone 50 MG Tablet 150 MG PO (23:01)
[2024-03-26] MEDS: Doxepin Hcl 25 MG Capsule PO (23:02)
[2024-03-26 23:08] VITALS: RESP 17
[2024-03-27] MEDS: 0.9% Saline Lock 10 ML Syringe IV ×3 (06:15→23:02)
[2024-03-27] MEDS: Pregabalin 75 MG Capsule 150 MG PO ×3 (06:15→23:02)
[2024-03-27] MEDS: Cefepime HCl 2 GM in 0.9% NS 100 ML Minibag Q8 IV ×3 (06:15→23:00)
[2024-03-27] MEDS: 0.9% Normal Saline (250mL Bag) 250 ML 15 ML IV (06:16)
[2024-03-27] MEDS: Enoxaparin 40 MG/0.4 ML Syringe SC (06:18)
[2024-03-27] MEDS: levoFLOXacin 500 MG Tablet PO (06:20)
[2024-03-27] MEDS: Levothyroxine 150 MCG Tablet PO (06:20)
[2024-03-27 06:35] LABS: Bedside Glucose 144 mg/dL (74-106)
[2024-03-27 08:35] VITALS: BP 121/78; PULSE 80; RESP 16; TEMP 35.6; O2SAT 98
[2024-03-27] MEDS: Insulin Lispro 100 UNIT/ML INSULN.PEN 10 UNIT SC ×3 (08:37→18:07)
[2024-03-27] MEDS: Glimepiride 4 MG Tablet PO (08:37)
[2024-03-27] MEDS: Juven (unflavored) Packet 1 PACKET PO ×2 (08:37→18:07)
[2024-03-27] MEDS: Menthol/Lanolin/Calamine/Znox 113 GM Tube 1 APPLIC TOPICAL ×2 (08:37→23:06)
[2024-03-27] MEDS: Losartan Potassium 100 MG Tablet PO (08:38)
[2024-03-27] MEDS: Aspirin E.C. 81 MG Tablet PO (08:38)
[2024-03-27] MEDS: Potassium Chloride Oral Tablet 20 MEQ PO (08:38)
[2024-03-27] MEDS: Celecoxib 200 MG Capsule PO (08:38)
[2024-03-27 08:39] VITALS: PULSE 80
[2024-03-27] MEDS: Metoprolol(XL)Succ 200 MG Tablet PO (08:39)
[2024-03-27] MEDS: Montelukast 10 MG Tablet PO (08:39)
[2024-03-27] MEDS: Paroxetine 20 MG Tablet 40 MG PO (08:39)
[2024-03-27] MEDS: Senna/Docusate Sodium 1 Tablet 2 TABLET PO ×2 (08:39→23:04)
[2024-03-27] MEDS: Pantoprazole Sodium 40 MG Tablet PO (08:39)
[2024-03-27 11:25] VITALS: PULSE 72; RESP 16; O2SAT 95
[2024-03-27 11:33] LABS: Bedside Glucose 161 mg/dL (74-106)
[2024-03-27] MEDS: oxyCODONE 5 MG Tablet PO ×2 (11:33→23:02)
[2024-03-27 17:45] LABS: Bedside Glucose 179 mg/dL (74-106)
[2024-03-27 22:00] LABS: Bedside Glucose 190 mg/dL (74-106)
[2024-03-27] MEDS: Atorvastatin Calcium 80 MG Tablet PO (23:03)
[2024-03-27] MEDS: Acetaminophen 500 MG Tablet 1000 MG PO (23:03)
[2024-03-27] MEDS: Doxepin Hcl 25 MG Capsule PO (23:04)
[2024-03-27] MEDS: traZODone 50 MG Tablet 150 MG PO (23:04)
[2024-03-28] MEDS: Cefepime HCl 2 GM in 0.9% NS 100 ML Minibag Q8 IV ×3 (06:01→22:41)
[2024-03-28] MEDS: 0.9% Normal Saline (250mL Bag) 250 ML 15 ML IV (06:03)
[2024-03-28] MEDS: levoFLOXacin 500 MG Tablet PO (06:03)
[2024-03-28] MEDS: Levothyroxine 150 MCG Tablet PO (06:03)
[2024-03-28] MEDS: Pregabalin 75 MG Capsule 150 MG PO ×3 (06:03→22:39)
[2024-03-28] MEDS: Enoxaparin 40 MG/0.4 ML Syringe SC (06:04)
[2024-03-28 06:31] LABS: Bedside Glucose 223 mg/dL (74-106)
[2024-03-28] MEDS: Glimepiride 4 MG Tablet PO (08:51)
[2024-03-28] MEDS: Juven (unflavored) Packet 1 PACKET PO ×2 (08:52→17:58)
[2024-03-28] MEDS: Insulin Lispro 100 UNIT/ML INSULN.PEN 10 UNIT SC ×3 (08:52→17:58)
[2024-03-28 10:00] VITALS: RESP 16
[2024-03-28 10:19] VITALS: RESP 16; O2SAT 98
[2024-03-28] MEDS: Celecoxib 200 MG Capsule PO (10:26)
[2024-03-28] MEDS: Losartan Potassium 100 MG Tablet PO (10:26)
[2024-03-28] MEDS: Menthol/Lanolin/Calamine/Znox 113 GM Tube 1 APPLIC TOPICAL ×2 (10:26→22:41)
[2024-03-28] MEDS: Aspirin E.C. 81 MG Tablet PO (10:27)
[2024-03-28] MEDS: Potassium Chloride Oral Tablet 20 MEQ PO (10:27)
[2024-03-28] MEDS: Paroxetine 20 MG Tablet 40 MG PO (10:28)
[2024-03-28] MEDS: Pantoprazole Sodium 40 MG Tablet PO (10:28)
[2024-03-28] MEDS: Senna/Docusate Sodium 1 Tablet 2 TABLET PO ×2 (10:28→22:31)
[2024-03-28 10:29] VITALS: BP 108/52; PULSE 82
[2024-03-28] MEDS: Metoprolol(XL)Succ 200 MG Tablet PO (10:29)
[2024-03-28] MEDS: Montelukast 10 MG Tablet PO (10:29)
[2024-03-28] MEDS: oxyCODONE 5 MG Tablet PO ×2 (10:33→22:39)
[2024-03-28] MEDS: Acetaminophen 500 MG Tablet 1000 MG PO ×2 (10:34→22:38)
[2024-03-28 11:08] LABS: Bedside Glucose 266 mg/dL (74-106)
[2024-03-28 16:37] LABS: Bedside Glucose 175 mg/dL (74-106)
[2024-03-28 19:27] VITALS: BP 131/71; PULSE 86; RESP 16; TEMP 36.1; O2SAT 95
[2024-03-28 21:39] LABS: Bedside Glucose 274 mg/dL (74-106)
[2024-03-28] MEDS: Atorvastatin Calcium 80 MG Tablet PO (22:31)
[2024-03-28] MEDS: traZODone 50 MG Tablet 150 MG PO (22:32)
[2024-03-28] MEDS: Doxepin Hcl 25 MG Capsule PO (22:33)
[2024-03-28] MEDS: 0.9% Saline Lock 10 ML Syringe IV (23:34)
[2024-03-29] MEDS: Enoxaparin 40 MG/0.4 ML Syringe SC (05:52)
[2024-03-29] MEDS: Levothyroxine 150 MCG Tablet PO (05:52)
[2024-03-29] MEDS: levoFLOXacin 500 MG Tablet PO (05:52)
[2024-03-29] MEDS: Pregabalin 75 MG Capsule 150 MG PO ×3 (05:52→21:29)
[2024-03-29] MEDS: 0.9% Saline Lock 10 ML Syringe IV (05:55)
[2024-03-29] MEDS: Cefepime HCl 2 GM in 0.9% NS 100 ML Minibag Q8 IV ×3 (05:55→21:29)
[2024-03-29] MEDS: 0.9% Normal Saline (250mL Bag) 250 ML 15 ML IV ×2 (05:57→21:29)
[2024-03-29 07:06] LABS: Bedside Glucose 237 mg/dL (74-106)
[2024-03-29] MEDS: Celecoxib 200 MG Capsule PO (08:35)
[2024-03-29] MEDS: Glimepiride 4 MG Tablet PO (08:35)
[2024-03-29] MEDS: Senna/Docusate Sodium 1 Tablet 2 TABLET PO ×2 (08:35→21:30)
[2024-03-29] MEDS: Aspirin E.C. 81 MG Tablet PO (08:35)
[2024-03-29] MEDS: Losartan Potassium 100 MG Tablet PO (08:35)
[2024-03-29] MEDS: Montelukast 10 MG Tablet PO (08:35)
[2024-03-29] MEDS: Pantoprazole Sodium 40 MG Tablet PO (08:35)
[2024-03-29] MEDS: Potassium Chloride Oral Tablet 20 MEQ PO (08:35)
[2024-03-29] MEDS: Paroxetine 20 MG Tablet 40 MG PO (08:35)
[2024-03-29 08:36] VITALS: BP 145/66; PULSE 71
[2024-03-29] MEDS: Metoprolol(XL)Succ 200 MG Tablet PO (08:36)
[2024-03-29] MEDS: Juven (unflavored) Packet 1 PACKET PO ×2 (08:36→17:53)
[2024-03-29] MEDS: Menthol/Lanolin/Calamine/Znox 113 GM Tube 1 APPLIC TOPICAL ×2 (08:37→21:39)
[2024-03-29] MEDS: Insulin Lispro 100 UNIT/ML INSULN.PEN 10 UNIT SC ×3 (08:47→17:53)
[2024-03-29 11:43] LABS: Bedside Glucose 269 mg/dL (74-106)
[2024-03-29] MEDS: Acetaminophen 500 MG Tablet 1000 MG PO ×2 (12:48→21:43)
[2024-03-29] MEDS: oxyCODONE 5 MG Tablet PO ×2 (12:48→21:42)
[2024-03-29 13:16] VITALS: BP 127/69; PULSE 69; RESP 16; TEMP 36.1; O2SAT 96
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
[2024-03-29 16:43] LABS: Bedside Glucose 212 mg/dL (74-106)
[2024-03-29] MEDS: Doxepin Hcl 25 MG Capsule PO (21:30)
[2024-03-29] MEDS: traZODone 50 MG Tablet 150 MG PO (21:30)
[2024-03-29] MEDS: Atorvastatin Calcium 80 MG Tablet PO (21:30)
[2024-03-29 22:29] LABS: Bedside Glucose 170 mg/dL (74-106)
[2024-03-30] MEDS: 0.9% Saline Lock 10 ML Syringe IV ×5 (06:28→23:37)
[2024-03-30] MEDS: Enoxaparin 40 MG/0.4 ML Syringe SC (06:28)
[2024-03-30] MEDS: levoFLOXacin 500 MG Tablet PO (06:29)
[2024-03-30] MEDS: Pregabalin 75 MG Capsule 150 MG PO ×3 (06:29→22:43)
[2024-03-30] MEDS: Levothyroxine 150 MCG Tablet PO (06:29)
[2024-03-30] MEDS: Cefepime HCl 2 GM in 0.9% NS 100 ML Minibag Q8 IV ×3 (06:31→22:40)
[2024-03-30 06:51] LABS: Bedside Glucose 201 mg/dL (74-106)
[2024-03-30 08:27] VITALS: BP 175/150; PULSE 70; RESP 16; TEMP 36.5; O2SAT 93
[2024-03-30] MEDS: Glimepiride 4 MG Tablet PO (08:30)
[2024-03-30] MEDS: Insulin Lispro 100 UNIT/ML INSULN.PEN 10 UNIT SC ×3 (08:31→17:47)
[2024-03-30] MEDS: Juven (unflavored) Packet 1 PACKET PO ×2 (08:31→17:47)
[2024-03-30] MEDS: Menthol/Lanolin/Calamine/Znox 113 GM Tube 1 APPLIC TOPICAL ×2 (08:31→22:45)
[2024-03-30] MEDS: Losartan Potassium 100 MG Tablet PO (08:32)
[2024-03-30] MEDS: Potassium Chloride Oral Tablet 20 MEQ PO (08:32)
[2024-03-30] MEDS: Aspirin E.C. 81 MG Tablet PO (08:32)
[2024-03-30] MEDS: Celecoxib 200 MG Capsule PO (08:32)
[2024-03-30] MEDS: Paroxetine 20 MG Tablet 40 MG PO (08:33)
[2024-03-30] MEDS: Senna/Docusate Sodium 1 Tablet 2 TABLET PO ×2 (08:33→22:42)
[2024-03-30] MEDS: Pantoprazole Sodium 40 MG Tablet PO (08:33)
[2024-03-30 08:34] VITALS: PULSE 70
[2024-03-30] MEDS: Montelukast 10 MG Tablet PO (08:34)
[2024-03-30] MEDS: Metoprolol(XL)Succ 200 MG Tablet PO (08:34)
[2024-03-30] MEDS: Acetaminophen 500 MG Tablet 1000 MG PO ×2 (08:40→20:03)
[2024-03-30] MEDS: oxyCODONE 5 MG Tablet PO ×2 (08:40→20:04)
[2024-03-30 09:57] VITALS: BP 111/65; PULSE 72
[2024-03-30 11:24] LABS: Bedside Glucose 207 mg/dL (74-106)
[2024-03-30 17:42] LABS: Bedside Glucose 141 mg/dL (74-106)
[2024-03-30 21:53] LABS: Bedside Glucose 202 mg/dL (74-106)
[2024-03-30] MEDS: 0.9% Normal Saline (250mL Bag) 250 ML 15 ML IV (22:41)
[2024-03-30] MEDS: traZODone 50 MG Tablet 150 MG PO (22:44)
[2024-03-30] MEDS: Doxepin Hcl 25 MG Capsule PO (22:44)
[2024-03-30] MEDS: Atorvastatin Calcium 80 MG Tablet PO (22:44)
[2024-03-31] MEDS: Acetaminophen 500 MG Tablet 1000 MG PO ×2 (06:12→22:56)
[2024-03-31] MEDS: Pregabalin 75 MG Capsule 150 MG PO ×3 (06:12→22:55)
[2024-03-31] MEDS: oxyCODONE 5 MG Tablet PO ×2 (06:13→22:56)
[2024-03-31] MEDS: Cefepime HCl 2 GM in 0.9% NS 100 ML Minibag Q8 IV ×3 (06:13→22:51)
[2024-03-31] MEDS: levoFLOXacin 500 MG Tablet PO (06:13)
[2024-03-31] MEDS: Levothyroxine 150 MCG Tablet PO (06:13)
[2024-03-31] MEDS: Enoxaparin 40 MG/0.4 ML Syringe SC (06:14)
[2024-03-31] MEDS: 0.9% Saline Lock 10 ML Syringe IV ×3 (06:14→22:50)
[2024-03-31 06:50] LABS: Bedside Glucose 162 mg/dL (74-106)
[2024-03-31 08:25] VITALS: BP 107/60; PULSE 71; RESP 16; TEMP 36.4; O2SAT 95
[2024-03-31] MEDS: Glimepiride 4 MG Tablet PO (08:28)
[2024-03-31] MEDS: Insulin Lispro 100 UNIT/ML INSULN.PEN 10 UNIT SC ×3 (08:28→17:51)
[2024-03-31] MEDS: Menthol/Lanolin/Calamine/Znox 113 GM Tube 1 APPLIC TOPICAL ×2 (08:29→22:59)
[2024-03-31] MEDS: Juven (unflavored) Packet 1 PACKET PO ×2 (08:29→17:52)
[2024-03-31] MEDS: Celecoxib 200 MG Capsule PO (08:30)
[2024-03-31] MEDS: Aspirin E.C. 81 MG Tablet PO (08:30)
[2024-03-31] MEDS: Losartan Potassium 100 MG Tablet PO (08:30)
[2024-03-31] MEDS: Potassium Chloride Oral Tablet 20 MEQ PO (08:30)
[2024-03-31] MEDS: Paroxetine 20 MG Tablet 40 MG PO (08:31)
[2024-03-31] MEDS: Senna/Docusate Sodium 1 Tablet 2 TABLET PO ×2 (08:31→22:57)
[2024-03-31] MEDS: Pantoprazole Sodium 40 MG Tablet PO (08:31)
[2024-03-31 08:32] VITALS: PULSE 71
[2024-03-31] MEDS: Metoprolol(XL)Succ 200 MG Tablet PO (08:32)
[2024-03-31] MEDS: Montelukast 10 MG Tablet PO (08:32)
[2024-03-31 12:36] LABS: Bedside Glucose 263 mg/dL (74-106)
[2024-03-31 16:58] LABS: Bedside Glucose 183 mg/dL (74-106)
[2024-03-31 21:48] LABS: Bedside Glucose 197 mg/dL (74-106)
[2024-03-31] MEDS: Atorvastatin Calcium 80 MG Tablet PO (22:57)
[2024-03-31] MEDS: Doxepin Hcl 25 MG Capsule PO (22:58)
[2024-03-31] MEDS: traZODone 50 MG Tablet 150 MG PO (22:58)
[2024-03-31] MEDS: 0.9% Normal Saline (250mL Bag) 250 ML 15 ML IV (23:00)
[2024-04-01] MEDS: 0.9% Saline Lock 10 ML Syringe IV ×3 (06:11→22:30)
[2024-04-01] MEDS: Enoxaparin 40 MG/0.4 ML Syringe SC (06:12)
[2024-04-01] MEDS: levoFLOXacin 500 MG Tablet PO (06:12)
[2024-04-01] MEDS: Cefepime HCl 2 GM in 0.9% NS 100 ML Minibag Q8 IV ×3 (06:12→22:29)
[2024-04-01] MEDS: Levothyroxine 150 MCG Tablet PO (06:13)
[2024-04-01] MEDS: Pregabalin 75 MG Capsule 150 MG PO ×3 (06:13→22:26)
[2024-04-01 06:30] LABS: Bedside Glucose 216 mg/dL (74-106)
[2024-04-01] MEDS: Insulin Lispro 100 UNIT/ML INSULN.PEN 10 UNIT SC ×3 (08:05→17:47)
[2024-04-01] MEDS: Montelukast 10 MG Tablet PO (08:06)
[2024-04-01] MEDS: Celecoxib 200 MG Capsule PO (08:06)
[2024-04-01] MEDS: Losartan Potassium 100 MG Tablet PO (08:06)
[2024-04-01] MEDS: Aspirin E.C. 81 MG Tablet PO (08:06)
[2024-04-01] MEDS: Paroxetine 20 MG Tablet 40 MG PO (08:06)
[2024-04-01] MEDS: Potassium Chloride Oral Tablet 20 MEQ PO (08:06)
[2024-04-01] MEDS: Glimepiride 4 MG Tablet PO (08:06)
[2024-04-01] MEDS: Senna/Docusate Sodium 1 Tablet 2 TABLET PO ×2 (08:06→22:26)
[2024-04-01 08:07] VITALS: BP 119/54; PULSE 68
[2024-04-01] MEDS: Pantoprazole Sodium 40 MG Tablet PO (08:07)
[2024-04-01] MEDS: Juven (unflavored) Packet 1 PACKET PO ×2 (08:07→17:47)
[2024-04-01] MEDS: Metoprolol(XL)Succ 200 MG Tablet PO (08:07)
[2024-04-01] MEDS: Menthol/Lanolin/Calamine/Znox 113 GM Tube 1 APPLIC TOPICAL ×2 (08:08→22:26)
[2024-04-01 11:32] LABS: Bedside Glucose 204 mg/dL (74-106)
[2024-04-01 14:01] VITALS: BP 134/68; PULSE 71; RESP 16; TEMP 36.1; O2SAT 96
--- NOTE | 2024-04-01 14:37 | WOUNDNOTE ---
wound photo: left Achilles area
--- NOTE | 2024-04-01 15:29 | CASEMGMT ---
Addendum entered by Verito Bassett 04/05/24 10:02: MALIA updated [facility] on pt not discharging home with wound vac d/t insurance denial. Pt will have daily dressing changes and reports dtr can assist. [facility] changed SOC to 04/08. Pt aware. Addendum entered by Verito Bassett 04/02/24 11:13: Received return correspondence from wound nurse that a 3rd green party company must approve the pt's home vac and that typically takes 4-5 days. If the vac is approved and delivered to the hospital, the wound nurse will place the vac on 04/05. If the vac is approved but delivered to the pt's home, [facility] will place vac at SOC on 04/05. TCU Director updated. PCP needs to sign HH orders prior to SOC and earliest appt is not until 04/08. SW left written communication to inquiring about signing of orders 04/05 for SOC prior to appt. Will await outcome. [facility] updated. GENTRY Vogt Original Note: Social Work SW spoke with pt at bedside to finalize DC plans. SW confirmed IV ATB are completed on 04/04 and pt can DC 04/05. Insurance update is 04/02 and a NOMNC will be issued for DC 04/05. Pt confirmed. Pt will DC home alone with home wound vac. SW to coordinate [facility] SN. Offered PT. Pt denied. MALIA offered skilled C agency list with quality and resource data but pt denied, stating she has used [facility] prior and prefers to use again. Pt confirms no DME needs and dtr can transport. MALIA phoned [facility] for SN. Secure email sent to wound nurse to notify of DC. Plan: DC home alone 04/05, wound vac, [facility] SN GENTRY Vogt
[2024-04-01 16:47] LABS: Bedside Glucose 184 mg/dL (74-106)
[2024-04-01 22:20] LABS: Bedside Glucose 243 mg/dL (74-106)
[2024-04-01] MEDS: Atorvastatin Calcium 80 MG Tablet PO (22:26)
[2024-04-01] MEDS: Doxepin Hcl 25 MG Capsule PO (22:26)
[2024-04-01] MEDS: traZODone 50 MG Tablet 150 MG PO (22:26)
[2024-04-01] MEDS: oxyCODONE 5 MG Tablet PO (22:29)
[2024-04-01] MEDS: Acetaminophen 500 MG Tablet 1000 MG PO (22:29)
[2024-04-02] MEDS: Enoxaparin 40 MG/0.4 ML Syringe SC (05:10)
[2024-04-02] MEDS: 0.9% Saline Lock 10 ML Syringe IV ×3 (05:10→23:15)
[2024-04-02] MEDS: Cefepime HCl 2 GM in 0.9% NS 100 ML Minibag Q8 IV ×3 (05:15→23:15)
[2024-04-02] MEDS: Pregabalin 75 MG Capsule 150 MG PO ×3 (05:15→23:14)
[2024-04-02] MEDS: levoFLOXacin 500 MG Tablet PO (05:16)
[2024-04-02] MEDS: 0.9% Normal Saline (250mL Bag) 250 ML 15 ML IV (05:16)
[2024-04-02] MEDS: Levothyroxine 150 MCG Tablet PO (05:17)
[2024-04-02 06:05] LABS: Erythrocyte Sedimentation Rate 21 mm/hr (0-30)
[2024-04-02 06:07] LABS: Absolute Lymphocyte Count 1.54 X10^3/uL (0.83-4.51); Absolute Neutrophil Count 1.9 X10^3/uL (2.0-7.7); Basophil# 0.03 X10^3/uL; Basophil% 0.7 % (0-1); Eosinophil# 0.31 X10^3/uL; Eosinophils% 7.1 % (0-5); Hematocrit 33.6 % (37-47); Hemoglobin 10.6 g/dL (12.0-15.0); Lymphocyte # 1.54 X10^3/ul (0.83-4.51); Lymphocyte % 35.5 % (19-41); Mean Corp Hgb Conc 31.5 g/dL (32-36); Mean Corpuscular Hgb 27.2 pg (27.0-32.0); Mean Corpuscular Volume 86.2 fL (81-99); Mean Platelet Vol. 9.6 fl (6.2-12.0); Monocyte# 0.58 X10^3/uL; Monocyte% 13.4 % (0-10); NRBC Flagged by Analyzer 0 % (0-5); Neutrophil # 1.86 X10^3/uL (2.7-7.7); Neutrophil % 42.8 % (47-70); Platelet Count 204 K/mm3 (150-450); RBC Distribution Width CV 14.2 % (11.6-14.6); RBC Distribution Width SD 43.9 fl (35.1-43.9); White Blood Count 4.3 K/mm3 (4.4-11.0)
[2024-04-02 06:47] LABS: Anion Gap 8 (5-15); BUN 30 mg/dL (7-18); BUN/Creat Ratio 44.3 RATIO (10-20); Chloride 104 mmol/L (98-107); Creatinine, Serum 0.68 mg/dL (0.55-1.02); EST Glomerular Filtration Rate 94 mL/min (>60); Est Glom Filt Rate - Afr Amer 114 mL/min (>60); Estimated Creatinine Clearance 112.93 ml/min; Glucose 243 mg/dL (74-106); Sodium Level 141 mmol/L (136-145)
[2024-04-02 06:47] LABS: Bedside Glucose 227 mg/dL (74-106)
[2024-04-02] MEDS: Insulin Lispro 100 UNIT/ML INSULN.PEN 10 UNIT SC ×3 (08:19→17:53)
[2024-04-02 08:20] VITALS: BP 131/68; PULSE 69
[2024-04-02] MEDS: Paroxetine 20 MG Tablet 40 MG PO (08:20)
[2024-04-02] MEDS: Potassium Chloride Oral Tablet 20 MEQ PO (08:20)
[2024-04-02] MEDS: Losartan Potassium 100 MG Tablet PO (08:20)
[2024-04-02] MEDS: Aspirin E.C. 81 MG Tablet PO (08:20)
[2024-04-02] MEDS: Metoprolol(XL)Succ 200 MG Tablet PO (08:20)
[2024-04-02] MEDS: Juven (unflavored) Packet 1 PACKET PO ×2 (08:20→17:53)
[2024-04-02] MEDS: Senna/Docusate Sodium 1 Tablet 2 TABLET PO ×2 (08:20→23:08)
[2024-04-02] MEDS: Montelukast 10 MG Tablet PO (08:21)
[2024-04-02] MEDS: Pantoprazole Sodium 40 MG Tablet PO (08:21)
[2024-04-02] MEDS: Celecoxib 200 MG Capsule PO (08:21)
[2024-04-02] MEDS: Glimepiride 4 MG Tablet PO (08:24)
[2024-04-02] MEDS: Menthol/Lanolin/Calamine/Znox 113 GM Tube 1 APPLIC TOPICAL ×2 (08:27→23:07)
--- NOTE | 2024-04-02 10:57 | PCM.PN.ID ---
Physical Exam Narrative Feeling better, wound improved, no fever, no n/v/d. Const alert and no apparent distress General Appearance: cooperative Resp normal air movement and clear to auscultation bilaterally Cardio regular rate and regular rhythm GI soft to palpation, non-tender and non-distended Skin Skin Narrative: reviewed most recent wound photos ID ID: Route of nutrition/ use of supplements: [] Nutritional Intake: [] IV Site: [] Song Catheter: [] Assessment & Plan Assessment/Plan (1) Acute osteomyelitis of left calcaneus: PLAN: Previous surgery was 01/26/24 for tendon repair. No fever, pain was moderate. Taken to OR 02/22/[address] Smith for I&D. Surg cx with mssa, enterobacter, and steno. Picc in place for 6 weeks iv cefepime and po levaquin with weekly labs. Overall improved, stop date as planned for 04/04/24. 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
[2024-04-02 11:29] LABS: Bedside Glucose 235 mg/dL (74-106)
[2024-04-02 14:52] VITALS: BP 131/58; PULSE 80; RESP 14; TEMP 36.6; O2SAT 95
[2024-04-02 16:03] VITALS: BMI 36.1
[2024-04-02 16:41] LABS: Bedside Glucose 181 mg/dL (74-106)
[2024-04-02] MEDS: oxyCODONE 5 MG Tablet PO (20:06)
[2024-04-02] MEDS: Acetaminophen 500 MG Tablet 1000 MG PO (20:06)
--- NOTE | 2024-04-02 20:29 | PCM.DC.SUM ---
Providers Date of Admission: 02/26/24 Primary Care Physician: Dr. Gulshan Early MD Consultations 02/26/24 21:01 Consult: Infectious Disease Routine Consulting Provider: Victorino Mixon Reason for Consult: Left heel osteomyelitis s/p debridement. EMERGENT Consult: No Notified: Yes Date Notified: 02/26/24 Time Notified: 21:04 Method of Notification: Text Consult: Podiatry Routine Consulting Provider: Zack Smith Reason for Consult: Left heel osteomyelitis s/p debridement. EMERGENT Consult: No Notified: Yes Date Notified: 02/27/24 Time Notified: 09:49 Method of Notification: Text 02/27/24 08:37 Consult: Onc/Wound/hospitalist physician Routine Comment: Reason for Consult:: wound VAC left Achilles Reason For Visit: ACHILLES TENDON TEAR AND DEBRIDEMENT Diagnosis Discharge Diagnosis (1) Acute osteomyelitis of left calcaneus: Status: Acute Code(s): M86.172 - Other acute osteomyelitis, left ankle and foot (2) Dehiscence of wound: Status: Acute Code(s): T81.30XA - Disruption of wound, unspecified, initial encounter (3) Diabetes mellitus with diabetic polyneuropathy: Status: Chronic Code(s): E11.42 - Type 2 diabetes mellitus with diabetic polyneuropathy Qualifiers: Diabetes mellitus type: type 2 Diabetes mellitus penitentiary insulin use: with penitentiary use Qualified Code(s): E11.42 - Type 2 diabetes mellitus with diabetic polyneuropathy; Z79.4 - penitentiary (current) use of insulin Plan 58 year old female with below past medical history significant for Type 2 Diabetes Mellitus hospitalized for osteomyelitis left heel, underwent debridement 02/22/[address] Smith, admitted to TCU with debility, here for rehabilitation, strengthening, intravenous antibiotics, prior to discharge alone. Debility - PT/OT. Pain - Tylenol 1000mg q6 prn pain (1-3), Tramadol 50mg q6 prn pain (4-5), Oxycodone 5mg q4 prn pain (6-10). Bowel - senna/colace 2 tablets bid, Magnesium citrate 300ml daily prn. Adult immunization - Administer pneumonia vaccine, covid vaccine, flu vaccine as appropriate. DVT prophylaxis - Lovenox 40mg sc daily. Asthma - Singulair 10mg daily, Albuterol 1 puff q6 prn. CV prophylaxis - Aspirin 81mg daily. Left heel osteomyelitis s/p debridement - Cefepime 2gm iv q8/Levaquin 500mg po daily thru 04/04/2024, Juvien 1 packet bidcm, consult Dr. Smith, consult Dr. Mixon to follow. Diabetes Mellitus II - Glimepiride 4mg daily, Lispro 10 units tid, Mounjaro 7.5mg per week. Insomnia - Trazodone 150mg qhs, Doxepin 25mg qhs, stable chronic long term care social worker use, GDR not recommended. Hypothyroidism - Levothyroxine 150mcg daily. Hypertension - Metoprolol succinate 200mg daily, Losartan 100mg daily. Nausea - Zofran odt 4mg q8h prn. GERD - Pantoprazole 40mg daily. Depression - Paroxetine 40mg daily, stable chronic long term care social worker use, GDR not recommended. Hypokalemia - KCL 20meq daily. Diabetic polyneuropathy - Lyrica 150mg tid. Hyperlipidemia - Rosuvastatin 40mg qhs. Osteoarthritis - Celebrex 200mg daily. Nutrition - Drew 1 packet po bidcm. Skin irritation - Calmoseptine topical bid. Tobacco Abuse - Nicotine 21mg td daily. Medications at Discharge Home Medications omeprazole 40 mg capsule,delayed release 40 mg PO DAILY ACID REFLUX 10/18/18 paroxetine HCl 40 mg tablet 40 mg PO DAILY DEPRESSION 10/29/19 pregabalin 150 mg capsule 150 mg PO TID NERVE PAIN 10/29/19 aspirin 81 mg tablet,delayed release (Adult Low Dose Aspirin) 81 mg PO DAILY HEART HEALTH 07/21/20 metoprolol succinate 200 mg tablet,extended release 24 hr 200 mg PO DAILY BLOOD PRESSURE 07/21/20 rosuvastatin 40 mg tablet (Crestor) 40 mg PO DAILY CHOLESTEROL 08/26/22 pen needle, diabetic 32 gauge x 5/32 (BD Ultra-Fine Catalina Pen Needle) #100 ea 02/13/23 dapagliflozin propanediol 10 mg tablet (Farxiga) 10 mg PO DAILY DIABETES 03/01/23 losartan 100 mg tablet 100 mg PO DAILY BLOOD PRESSURE 03/01/23 blood sugar diagnostic (True Metrix Glucose Test Strip) #100 ea 03/24/23 glimepiride 4 mg tablet 4 mg PO DAILY diabetes #30 tabs 04/10/23 insulin aspart (niacinamide)(U-100) 100 unit/mL(3 mL) subcutaneous pen (Fiasp FlexTouch U-100 Insulin) 10 unit subcut TID diabetes #9 mL 05/29/23 albuterol sulfate 90 mcg/actuation aerosol inhaler 1 puff inhalation Q6H PRN PRN shortness of breath or wheezing 01/19/24 tirzepatide 7.5 mg/0.5 mL subcutaneous pen injector (Mounjaro) 7.5 mg subcut QWEEK diabetes 01/19/24 celecoxib 200 mg capsule 200 mg PO DAILY pain 02/21/24 doxepin 25 mg capsule 25 mg PO QHS sleep 02/21/24 levothyroxine 150 mcg tablet 150 mcg PO DAILY hypothyroid 02/21/24 montelukast 10 mg tablet 10 mg PO DAILY allergies/asthma 02/21/24 potassium chloride 20 mEq tablet,extended release(part/cryst) (Klor-Con M) 20 meq PO DAILY potassium supplement 02/21/24 trazodone 150 mg tablet 150 mg PO QHS sleep 02/21/24 acetaminophen 500 mg tablet 1,000 mg (2 x 500 mg) PO Q6H PRN PRN Pain Score 1-3 #0 tabs 04/02/24 arginine 7 gram-glutam 7 gram-CaHMB 1.5 [id number]-min oral pwd pkt (Drew (with collagen)) 1 packet PO BIDCM 30 days #60 ea 04/02/24 nicotine 21 mg/24 hr daily transdermal patch 21 mg transdermal DAILY 30 days #28 ea 04/02/24 oxycodone 5 mg tablet 5 mg PO Q4H PRN PRN Pain Score 6-10 Or Pre Pt/Ot 7 days #42 tabs 04/02/24 sennosides 8.6 mg-docusate sodium 50 mg tablet (Stimulant Laxative Plus) 2 tab PO BID 30 days #120 tabs 04/02/24 Hospital Course Operations - (See below.) Procedures PICC line placement Summary of Care Provided Minutes Spent on Discharge: 35 Hospital Course: 58 year old female with below past medical history significant for Type 2 Diabetes Mellitus hospitalized for osteomyelitis left heel, underwent debridement 02/22/[address] Smith, admitted to TCU with debility, here for rehabilitation, strengthening, intravenous antibiotics, prior to discharge alone. Discharge home alone 04/05/2024, wound vac, [facility]. Physical Exam Const alert General Appearance: cooperative HEENT normocephalic Eyes PERRL and EOMs intact bilaterally Neck supple, no JVD and no carotid bruits Resp normal respiratory effort, normal air movement and clear to auscultation bilaterally Cardio regular rate and regular rhythm GI normal to inspection, nondistended, normoactive bowel sounds, non-tender and non-distended Extremity normal capillary refill Extremity Narrative: Left lower extremity wound VAC, dressed. General Extremity: Negative for edema Skin no rashes or lesions noted General Skin Exam: no breakdown Psych affect normal Appearance: appropriate Weight / BMI Weight Weight: 108.012 kg Body Mass Index (BMI) 36.1 ABG / Lab / Microbiology Data 04/02/24 05:40 04/02/24 05:40 Laboratory: Laboratory Results - last 24 hr 04/01/24 22:03: POC Glucose 243 H 04/02/24 05:40: WBC 4.3 L, RBC 3.90 L, Hgb 10.6 L, Hct 33.6 L, MCV 86.2, MCH 27.2, MCHC 31.5 L, RDW Std Deviation 43.9, RDW Coeff of Kami 14.2, Plt Count 204, MPV 9.6, Immature Gran % (Auto) 0.500, Neut % (Auto) 42.8 L, Lymph % (Auto) 35.5, [place] % (Auto) 13.4 H, Eos % (Auto) 7.1 H, Baso % (Auto) 0.7, Absolute Neuts (auto) 1.9 L, Absolute Lymphs (auto) 1.54, Nucleated RBC % 0, ESR 21, Sodium 141, Potassium 4.0, Chloride 104, Carbon Dioxide 29.0, Anion Gap 8, BUN 30 H, Creatinine 0.68, Estim Creat Clear Calc 112.93, Est GFR (MDRD) Af Amer 114, Est GFR (MDRD) Non-Af 94, BUN/Creatinine Ratio 44.3 H, Glucose 243 H, Calcium 8.0 L 04/02/24 06:23: POC Glucose 227 H 04/02/24 11:02: POC Glucose 235 H 04/02/24 16:18: POC Glucose 181 H Microbiology: Microbiology 03/08/24 06:10 Nasal Secretion SARS-CoV-2 Antigen (Rapid) - Final 03/01/24 06:46 Nasal Secretion SARS-CoV-2 Antigen (Rapid) - Final D/C Instructions Discharge Diet: No restrictions Discharge Activity: Return to Normal Activity, May Shower and Use Walker Weight Bearing Status: No weight bearing (Left lower extremity.) Call your doctor if you observe: Fever of 101 or Higher, Inability to urinate, Inability to have a bowel movement, Shortness of breath, Dizziness, Fainting spells, Swelling in the ankles, Chest pain and Uncontrolled pain Additional Instructions: Discharge home alone 04/05/2024, wound vac, [facility]. Please Follow Up With: Zack Smith DPM When: 1 week wound center. Meaningful Use Info Meaningful Use Meaningful Use Diagnoses (Choose all that apply): None applicable Ischemic Stroke Statin Dosing Therapy Reference: STATIN DOSE THERAPY REFERENCE: * Patients > 75 years receive moderate or high dose statin therapy. * Patients 75 years or YOUNGER should receive HIGH intensity statin dose unless contraindicated. You will be required to document reason for non-treatment if statin daily dose does not meet guidelines. HIGH DOSE STATIN THERAPY DAILY Atorvastatin > than or = to 40 mg Rosuvastatin > than or = to 20 mg Amlodipine + Atorvastatin > than or = to 2.5/40 mg Ezetimibe + Simvastatin 10/80 mg Simvastatin 80mg Discharge Plan Admission Admit Date/Time: 02/26/24 18:15 Primary Reason for Your Visit: Debility. Attending Provider: Gulshan Early Chi Primary Care Provider: Gulshan Early Chi Consulting Providers: Victorino Mixon; Zack Smith Instructions Additional Instructions / Restrictions: Discharge home alone 04/05/2024, wound vac, [facility]. Discharge Orders/Prescriptions Prescriptions: New acetaminophen 500 mg Tablet 1,000 mg PO Q6H PRN PRN (Reason: Pain Score 1-3) Qty: 0 0RF nicotine 21 mg/24 hr Patch 24 Hour 21 mg transdermal DAILY 30 Days Qty: 28 0RF Drew (with collagen) 7-7-1.5 gram Powder In Packet 1 packet PO BIDCM 30 Days Qty: 60 0RF sennosides-docusate sodium [Stimulant Laxative Plus] 8.6-50 mg Tablet 2 tab PO BID 30 Days Qty: 120 0RF oxycodone 5 mg Tablet 5 mg PO Q4H PRN PRN (Reason: Pain Score 6-10 Or Pre Pt/Ot) 7 Days Qty: 42 0RF Continued omeprazole 40 mg capsule,delayed release(DR/EC) 40 mg PO DAILY aspirin [Adult Low Dose Aspirin] 81 mg tablet,delayed release (DR/EC) 81 mg PO DAILY metoprolol succinate 200 mg tablet extended release 24 hr 200 mg PO DAILY Fiasp FlexTouch U-100 Insulin 100 unit/mL (3 mL) insulin pen 10 unit subcut TID Qty: 9 5RF glimepiride 4 mg tablet 4 mg PO DAILY Qty: 30 6RF paroxetine HCl 40 MG tablet 40 mg PO DAILY pregabalin 150 MG capsule 150 mg PO TID rosuvastatin [Crestor] 40 mg Tablet 40 mg PO DAILY losartan 100 mg tablet 100 mg PO DAILY dapagliflozin propanediol [Farxiga] 10 mg tablet 10 mg PO DAILY albuterol sulfate 90 mcg/actuation HFA aerosol inhaler 1 puff inhalation Q6H PRN PRN (Reason: shortness of breath or wheezing) Mounjaro 7.5 mg/0.5 mL pen injector 7.5 mg subcut QWEEK celecoxib 200 mg capsule 200 mg PO DAILY doxepin 25 mg capsule 25 mg PO QHS potassium chloride [Klor-Con M20] 20 mEq Tablet,Er Particles/Crystals 20 meq PO DAILY trazodone 150 mg tablet 150 mg PO QHS levothyroxine 150 mcg tablet 150 mcg PO DAILY montelukast 10 mg tablet 10 mg PO DAILY Discontinued oxycodone-acetaminophen 5-325 mg tablet 1 tab PO Q8H PRN (Reason: pain) 7 Days Qty: 28 0RF ondansetron 4 mg tablet,disintegrating 4 mg PO Q8H PRN (Reason: nausea and vomiting) cefepime 2 gram Recon Soln 2 g IV Q8 38 Days Qty: 114 0RF Rx Instructions: stop date 04/04/24. dx: ankle osteo. Weekly bmp, cbc, and esr. Fax to [phone] routine picc care per protocol No Action (DME) pen needle, diabetic [BD Ultra-Fine Catalina Pen Needle] 32 gauge x 5/32 needle See Rx Instructions .Route Qty: 100 3RF Rx Instructions: daily (DME) True Metrix Glucose Test Strip Strip See Rx Instructions .Route Qty: 100 6RF Rx Instructions: three times dailyl Referrals / Follow Up: Gulshan Early Chi, MD [Primary Care Provider] - 04/08/24 9:40 am Disposition Disposition (needs filled in before D/C Order can be placed): Home Health Service
[2024-04-02 21:36] LABS: Bedside Glucose 207 mg/dL (74-106)
[2024-04-02] MEDS: traZODone 50 MG Tablet 150 MG PO (23:07)
[2024-04-02] MEDS: Atorvastatin Calcium 80 MG Tablet PO (23:08)
[2024-04-02] MEDS: Doxepin Hcl 25 MG Capsule PO (23:09)
[2024-04-02] MEDS: traMADol 50 MG Tablet PO (23:14)
[2024-04-03] MEDS: 0.9% Saline Lock 10 ML Syringe IV ×4 (06:07→23:48)
[2024-04-03] MEDS: Cefepime HCl 2 GM in 0.9% NS 100 ML Minibag Q8 IV ×3 (06:09→22:52)
[2024-04-03] MEDS: Levothyroxine 150 MCG Tablet PO (06:10)
[2024-04-03] MEDS: Pregabalin 75 MG Capsule 150 MG PO ×3 (06:10→22:53)
[2024-04-03] MEDS: levoFLOXacin 500 MG Tablet PO (06:10)
[2024-04-03] MEDS: Enoxaparin 40 MG/0.4 ML Syringe SC (06:10)
[2024-04-03] MEDS: 0.9% Normal Saline (250mL Bag) 250 ML 15 ML IV ×2 (06:11→22:52)
[2024-04-03 06:32] LABS: Bedside Glucose 156 mg/dL (74-106)
[2024-04-03] MEDS: Pantoprazole Sodium 40 MG Tablet PO (08:21)
[2024-04-03] MEDS: Aspirin E.C. 81 MG Tablet PO (08:21)
[2024-04-03] MEDS: Senna/Docusate Sodium 1 Tablet 2 TABLET PO ×2 (08:21→22:54)
[2024-04-03] MEDS: Montelukast 10 MG Tablet PO (08:21)
[2024-04-03] MEDS: Losartan Potassium 100 MG Tablet PO (08:21)
[2024-04-03] MEDS: Celecoxib 200 MG Capsule PO (08:21)
[2024-04-03] MEDS: Juven (unflavored) Packet 1 PACKET PO ×2 (08:21→17:43)
[2024-04-03] MEDS: Glimepiride 4 MG Tablet PO (08:21)
[2024-04-03 08:22] VITALS: BP 117/62; PULSE 64
[2024-04-03] MEDS: Metoprolol(XL)Succ 200 MG Tablet PO (08:22)
[2024-04-03] MEDS: Insulin Lispro 100 UNIT/ML INSULN.PEN 10 UNIT SC ×3 (08:22→17:45)
[2024-04-03] MEDS: Paroxetine 20 MG Tablet 40 MG PO (08:26)
[2024-04-03] MEDS: Potassium Chloride Oral Tablet 20 MEQ PO (08:26)
[2024-04-03] MEDS: Menthol/Lanolin/Calamine/Znox 113 GM Tube 1 APPLIC TOPICAL ×2 (08:27→22:55)
[2024-04-03 11:30] LABS: Bedside Glucose 211 mg/dL (74-106)
[2024-04-03] MEDS: Nystatin Powder 15gm Bottle 1 APPLIC TOPICAL ×2 (12:15→22:54)
--- NOTE | 2024-04-03 14:04 | WOUNDNOTE ---
Plan is for patient to be discharged home on 04/05/24. Pt has [employer] HMO. This nurse has tried 3 different NPWT companies and none of them contract with patient's insurance. [facility] used to contract with insurance, but now state they no longer do either. Reached out to [facility] and still waiting to hear back with an answer. Notified Dr Smith. Dr Smith states pt can be discharged with daily Dakins moistened gauze dressings if [facility] denies. updated nursing and patient. will update SW if dressing orders change.
[2024-04-03 14:30] VITALS: BP 127/69; PULSE 67; RESP 16; TEMP 36.3; O2SAT 98
[2024-04-03 17:01] LABS: Bedside Glucose 256 mg/dL (74-106)
[2024-04-03] MEDS: oxyCODONE 5 MG Tablet PO (17:44)
[2024-04-03] MEDS: Acetaminophen 500 MG Tablet 1000 MG PO (17:44)
[2024-04-03 22:01] LABS: Bedside Glucose 253 mg/dL (74-106)
[2024-04-03] MEDS: traZODone 50 MG Tablet 150 MG PO (22:54)
[2024-04-03] MEDS: Doxepin Hcl 25 MG Capsule PO (22:54)
[2024-04-03] MEDS: Atorvastatin Calcium 80 MG Tablet PO (22:54)
[2024-04-04 06:35] LABS: Bedside Glucose 126 mg/dL (74-106)
[2024-04-04] MEDS: Enoxaparin 40 MG/0.4 ML Syringe SC (06:43)
[2024-04-04] MEDS: Pregabalin 75 MG Capsule 150 MG PO ×3 (06:44→22:01)
[2024-04-04] MEDS: levoFLOXacin 500 MG Tablet PO (06:44)
[2024-04-04] MEDS: 0.9% Saline Lock 10 ML Syringe IV ×4 (06:44→22:04)
[2024-04-04] MEDS: Levothyroxine 150 MCG Tablet PO (06:44)
[2024-04-04] MEDS: Cefepime HCl 2 GM in 0.9% NS 100 ML Minibag Q8 IV ×3 (06:44→22:03)
[2024-04-04 08:17] VITALS: BP 116/61; PULSE 66; RESP 18; TEMP 35.9; O2SAT 97
[2024-04-04] MEDS: Glimepiride 4 MG Tablet PO (08:18)
[2024-04-04] MEDS: Insulin Lispro 100 UNIT/ML INSULN.PEN 10 UNIT SC ×3 (08:18→17:49)
[2024-04-04] MEDS: Nystatin Powder 15gm Bottle 1 APPLIC TOPICAL ×2 (08:19→22:02)
[2024-04-04] MEDS: Losartan Potassium 100 MG Tablet PO (08:19)
[2024-04-04] MEDS: Menthol/Lanolin/Calamine/Znox 113 GM Tube 1 APPLIC TOPICAL ×2 (08:19→22:02)
[2024-04-04] MEDS: Potassium Chloride Oral Tablet 20 MEQ PO (08:19)
[2024-04-04] MEDS: Juven (unflavored) Packet 1 PACKET PO ×2 (08:19→17:49)
[2024-04-04] MEDS: Celecoxib 200 MG Capsule PO (08:19)
[2024-04-04] MEDS: Aspirin E.C. 81 MG Tablet PO (08:19)
[2024-04-04] MEDS: Paroxetine 20 MG Tablet 40 MG PO (08:20)
[2024-04-04] MEDS: Pantoprazole Sodium 40 MG Tablet PO (08:20)
[2024-04-04 08:21] VITALS: PULSE 66
[2024-04-04] MEDS: Senna/Docusate Sodium 1 Tablet 2 TABLET PO ×2 (08:21→22:03)
[2024-04-04] MEDS: Montelukast 10 MG Tablet PO (08:21)
[2024-04-04] MEDS: Metoprolol(XL)Succ 200 MG Tablet PO (08:21)
[2024-04-04] MEDS: Acetaminophen 500 MG Tablet 1000 MG PO ×2 (08:56→22:01)
[2024-04-04] MEDS: oxyCODONE 5 MG Tablet PO ×2 (08:57→22:00)
[2024-04-04 12:09] LABS: Bedside Glucose 233 mg/dL (74-106)
--- NOTE | 2024-04-04 14:20 | WOUNDNOTE ---
Have not heard back from [facility] yet about the home VAC order. pt is scheduled to be discharged home tomorrow. plan will be for Dakins moistened gauze dressings daily. pt will follow with the wound center and will have home health care at home to assist with dressing changes. Had tried getting a VAC through [employer], [employer], [employer] [facility], [facility], and [facility]. All except [facility], have denied coverage through [facility].
--- NOTE | 2024-04-04 14:21 | MDS.RN ---
MDS pain interview complete.
--- NOTE | 2024-04-04 15:55 | CASEMGMT ---
Social Work BIMS () and PHQ-2 () completed for MDS assessment. \ Verito Bassett, GENTRY SANCHEZW
[2024-04-04 16:36] LABS: Bedside Glucose 197 mg/dL (74-106)
[2024-04-04 21:49] LABS: Bedside Glucose 198 mg/dL (74-106)
[2024-04-04] MEDS: traZODone 50 MG Tablet 150 MG PO (22:01)
[2024-04-04] MEDS: Atorvastatin Calcium 80 MG Tablet PO (22:02)
[2024-04-04] MEDS: Doxepin Hcl 25 MG Capsule PO (22:03)
[2024-04-04] MEDS: 0.9% Normal Saline (250mL Bag) 250 ML 15 ML IV (22:04)
[2024-04-04 22:10] VITALS: RESP 16
[2024-04-05] MEDS: Enoxaparin 40 MG/0.4 ML Syringe SC (06:11)
[2024-04-05] MEDS: Pregabalin 75 MG Capsule 150 MG PO ×2 (06:11→13:51)
[2024-04-05] MEDS: Levothyroxine 150 MCG Tablet PO (06:12)
--- NOTE | 2024-04-05 06:21 | NURSING ---
PICC to CONNIE removed, trim length 38cm, trim length after removal 38cm. Site has no s/s of infection, DSD in place.
[2024-04-05 06:29] VITALS: RESP 17
[2024-04-05 06:38] LABS: Bedside Glucose 163 mg/dL (74-106)
[2024-04-05] MEDS: Juven (unflavored) Packet 1 PACKET PO (08:01)
[2024-04-05] MEDS: Glimepiride 4 MG Tablet PO (08:01)
[2024-04-05] MEDS: Insulin Lispro 100 UNIT/ML INSULN.PEN 10 UNIT SC ×2 (08:01→12:18)
--- NOTE | 2024-04-05 08:21 | NURSING ---
Patient discharging home today. Reviewed medications and wound care. Patient had no questions at this time.
[2024-04-05] MEDS: Celecoxib 200 MG Capsule PO (10:38)
[2024-04-05] MEDS: Losartan Potassium 100 MG Tablet PO (10:38)
[2024-04-05 10:39] VITALS: BP 100/61; PULSE 60
[2024-04-05] MEDS: Metoprolol(XL)Succ 200 MG Tablet PO (10:39)
[2024-04-05] MEDS: Aspirin E.C. 81 MG Tablet PO (10:39)
[2024-04-05] MEDS: Montelukast 10 MG Tablet PO (10:39)
[2024-04-05] MEDS: Pantoprazole Sodium 40 MG Tablet PO (10:39)
[2024-04-05] MEDS: Senna/Docusate Sodium 1 Tablet 2 TABLET PO (10:40)
[2024-04-05] MEDS: Paroxetine 20 MG Tablet 40 MG PO (10:40)
[2024-04-05] MEDS: Potassium Chloride Oral Tablet 20 MEQ PO (10:41)
[2024-04-05] MEDS: Nystatin Powder 15gm Bottle 1 APPLIC TOPICAL (10:42)
[2024-04-05] MEDS: Menthol/Lanolin/Calamine/Znox 113 GM Tube 1 APPLIC TOPICAL (10:42)
[2024-04-05 11:23] LABS: Bedside Glucose 211 mg/dL (74-106)
[2024-04-05] MEDS: DAKIN'S SOL HALF STRENGTH (=0.25%) 1 APPLIC TOPICAL (13:53)
--- NOTE | 2024-04-05 14:41 | WOUNDNOTE ---
Educated patient and daughter on Dakins moistened gauze dressing to the left Achilles wound. removed the wound VAC. cleaned wound and periwound with soap and water. pat dry. placed Dakins moistened gauze over wound. reminded patient and daughter the importance of keeping the moist dressing off of the periwound to prevent maceration. both state understanding. covered packing dry dressings and wrapped with kerlix. reapplied the JOE wrap. pt tolerated well. Home health to start care Monday. pt will follow with Dr Smith at discharge as well.
[2024-04-05 15:00] VITALS: BP 110/61; PULSE 60; RESP 16; TEMP 36.3; O2SAT 98
--- NOTE | 2024-04-05 15:28 | NURSING ---
Elo in to see patient prior to discharge. Wound vac removed, wet to dry dressing applied. Patient, daughter verbalized understanding of wound care.
== END 2024-04-05 15:28 | disposition home health service (06) | DRG 949 ==
PROVIDERS: Admitting Provider Family Medicine Geriatric Medicine; PCP Family Medicine Geriatric Medicine; Visit Provider Family Medicine Geriatric Medicine
DX: Z48.817 Encounter for surgical aftercare following surgery on the skin and subcutaneous tissue (principal); L97.429 Non-pressure chronic ulcer of left heel and midfoot with unspecified severity; M86.172 Other acute osteomyelitis, left ankle and foot; L97.213 Non-pressure chronic ulcer of right calf with necrosis of muscle; E11.42 Type 2 diabetes mellitus with diabetic polyneuropathy; E11.51 Type 2 diabetes mellitus with diabetic peripheral angiopathy without gangrene; B95.61 Methicillin susceptible Staphylococcus aureus infection as the cause of diseases classified elsewhere; B96.89 Other specified bacterial agents as the cause of diseases classified elsewhere; E66.01 Morbid (severe) obesity due to excess calories; E11.69 Type 2 diabetes mellitus with other specified complication; E11.621 Type 2 diabetes mellitus with foot ulcer; E11.65 Type 2 diabetes mellitus with hyperglycemia; Z79.4 Long term (current) use of insulin; E11.622 Type 2 diabetes mellitus with other skin ulcer; I10 Essential (primary) hypertension; J45.909 Unspecified asthma, uncomplicated; F32.A Depression, unspecified; E89.0 Postprocedural hypothyroidism; M19.90 Unspecified osteoarthritis, unspecified site; F17.210 Nicotine dependence, cigarettes, uncomplicated; E78.5 Hyperlipidemia, unspecified; K21.9 Gastro-esophageal reflux disease without esophagitis; E87.6 Hypokalemia; Z79.82 Long term (current) use of aspirin; Z79.899 Other long term (current) drug therapy; Z79.890 Hormone replacement therapy; Z79.84 Long term (current) use of oral hypoglycemic drugs; Z79.85 Long-term (current) use of injectable non-insulin antidiabetic drugs; Z23 Encounter for immunization; Z68.36 Body mass index [BMI] 36.0-36.9, adult; T81.31XD Disruption of external operation (surgical) wound, not elsewhere classified, subsequent encounter; Y83.8 Other surgical procedures as the cause of abnormal reaction of the patient, or of later complication, without mention of misadventure at the time of the procedure; S86.012D Strain of left Achilles tendon, subsequent encounter; X58.XXXD Exposure to other specified factors, subsequent encounter
CPT/HCPCS: 36415; 80048; 82962; 85025; 85652; 87811; 90480; 97110; 97116; 97162; 97166; 97530; 97535; 97802; J7050; 91322; A4216

== ENCOUNTER 2024-05-09 10:08 | Outpatient (RCR) | payer MEDICARE, MEDICAID, SELFPAY ==
[2024-05-09 10:17] VITALS: BP 129/74; PULSE 76; RESP 18; TEMP 36.2
--- NOTE | 2024-05-09 10:31 | PCM.WC.HP ---
History of Present Illness Date of Service: 05/09/24 Chief Complaint: Surgical dehiscence with exposure of the Achilles tendon left lower extremity History of Wound: 58 y/o female with DM type II with peripheral polyneuropathy, peripheral vascular disease, asthma, morbid obesity, HTN, and hyperlipidemia presents to the wound care center for continued care of surgical dehiscence of her posterior left lower extremity with exposure of the Achilles tendon. Patient underwent surgical intervention to correct calcaneal gait with plantar ulceration of the left heel on 01/26/2024. At that time of surgery she was found to have tendo Achilles tear to the left lower extremity resulting in a calcaneal gait. Tendon was debrided and a shortening of the tendo Achilles was performed in addition to FHL tendon transfer. 3 weeks later patient had fallen placing weight to the foot resulting in a tear and dehiscence of the surgical site with exposure of the Achilles tendon. She was returned to the OR for debridement on 02/22/2024 and wound VAC was applied over ulcerative area. She did have PICC line and completed 6 weeks of IV antibiotics during stay in the transitional care unit. She completed IV antibiotic 04/04/2024 PICC line was pulled and she was discharged from the transitional care unit to home. Visiting nursing has continued to assist in dressing changes while at home. Patient has missed follow-up to the wound care center but does present today 05/09/2024 for continued care. She denies N/V/F/chills. Denies further complaints. [facility] Medical History Current use of insulin Post-menopausal Hiatal hernia Back pain due to injury Osteoporosis Sleep apnea Insulin dependent diabetes mellitus Easy bruising Restless legs Difficulty swallowing Tachycardia Smoker Wears dentures Wears glasses Anxiety Iron deficiency Back pain Dietary restriction GERD (gastroesophageal reflux disease) Shortness of breath Asthma CPAP (continuous positive airway pressure) dependence Leg cramping History of pain when walking Edema Cardiology follow-up encounter History of stress test Normal echocardiogram Hypertension Difficulty balancing when standing Asthma Arthritis Fibromyalgia Multinodular thyroid Hypothyroidism Essential (primary) hypertension Hypergammaglobulinemia Hyperlipemia Dermatitis Depression PAD (peripheral artery disease) Other specified peripheral vascular diseases Hammertoe of left foot Skin ulcer of right foot including toes with fat layer exposed Osteomyelitis of toe Morbid obesity with BMI of 40.0-44.9, adult Diabetes type 2, uncontrolled Venous stasis dermatitis of both lower extremities Home Medications ?Medication ?Instructions ?Recorded ?Last Taken ?Type omeprazole 40 mg capsule,delayed 40 mg PO DAILY ACID REFLUX 10/18/18 02/26/24 History release paroxetine HCl 40 mg tablet 40 mg PO DAILY DEPRESSION 10/29/19 02/26/24 History pregabalin 150 mg capsule 150 mg PO TID NERVE PAIN 10/29/19 02/26/24 History aspirin 81 mg tablet,delayed 81 mg PO DAILY HEART HEALTH 07/21/20 02/26/24 08:10 History release (Adult Low Dose Aspirin) metoprolol succinate 200 mg 200 mg PO DAILY BLOOD PRESSURE 07/21/20 02/26/24 History tablet,extended release 24 hr rosuvastatin 40 mg tablet (Crestor) 40 mg PO DAILY CHOLESTEROL 08/26/22 02/25/24 History pen needle, diabetic 32 gauge x #100 ea 02/13/23 Unknown Rx (BD Ultra-Fine Catalina Pen Needle) dapagliflozin propanediol 10 mg 10 mg PO DAILY DIABETES 03/01/23 02/28/23 History tablet (Farxiga) losartan 100 mg tablet 100 mg PO DAILY BLOOD PRESSURE 03/01/23 02/26/24 History blood sugar diagnostic (True #100 ea 03/24/23 Unknown Rx Metrix Glucose Test Strip) glimepiride 4 mg tablet 4 mg PO DAILY diabetes #30 tabs 04/10/23 Unknown Rx insulin aspart 10 unit subcut TID diabetes #9 mL 05/29/23 02/26/24 Rx (niacinamide)(U-100) 100 unit/mL(3 mL) subcutaneous pen (Fiasp FlexTouch U-100 Insulin) albuterol sulfate 90 mcg/actuation 1 puff inhalation Q6H PRN PRN 01/19/24 01/26/24 10:00 History aerosol inhaler shortness of breath or wheezing tirzepatide 7.5 mg/0.5 mL 7.5 mg subcut QWEEK diabetes 01/19/24 01/15/24 History subcutaneous pen injector (Vaughnunmemoro) celecoxib 200 mg capsule 200 mg PO DAILY pain 02/21/24 Unknown History doxepin 25 mg capsule 25 mg PO QHS sleep 02/21/24 Unknown History levothyroxine 150 mcg tablet 150 mcg PO DAILY hypothyroid 02/21/24 Unknown History montelukast 10 mg tablet 10 mg PO DAILY allergies/asthma 02/21/24 Unknown History potassium chloride 20 mEq 20 meq PO DAILY potassium 02/21/24 Unknown History tablet,extended supplement release(part/cryst) (Klor-Con M) trazodone 150 mg tablet 150 mg PO QHS sleep 02/21/24 Unknown History acetaminophen 500 mg tablet 1,000 mg (2 x 500 mg) PO Q6H PRN 04/02/24 Unknown Rx PRN Pain Score 1-3 #0 tabs arginine 7 gram-glutam 7 1 packet PO BIDCM 30 days #60 ea 04/02/24 Unknown Rx gram-CaHMB 1.5 [id number]-me-min oral pwd pkt (Drew (with collagen)) oxycodone 5 mg tablet 5 mg PO Q4H PRN PRN Pain Score 04/02/24 Unknown Rx 6-10 Or Pre Pt/Ot 7 days #42 tabs Allergy/AdvReac Type Severity Reaction Status Date / Time piperacillin (From Zosyn) Allergy Severe Anaphylaxis Verified 05/09/24 10:34 tazobactam (From Zosyn) Allergy Severe Anaphylaxis Verified 05/09/24 10:34 sulfamethoxazole (From Allergy Unknown Anaphylaxis Verified 05/09/24 10:34 Bactrim) trimethoprim (From Bactrim) Allergy Unknown Anaphylaxis Verified 05/09/24 10:34 latex Allergy Rash Verified 05/09/24 10:34 pyrethrins Allergy Anaphylaxis Verified 05/09/24 10:34 tetanus and diphtheria Allergy Anaphylaxis Verified 05/09/24 10:34 toxoids (Tetanus&Diphtheria Toxoid) Family History Mother Diabetes Dementia Father Diabetes Myocardial infarction Surgical History Hx of toe surgery History of partial ray amputation of fifth toe of right foot Hx of total knee arthroplasty History of nasal septoplasty History of cholecystectomy History of thyroidectomy H/O arthroscopic knee surgery (11/2019) H/O amputation of lesser toe (05/05/17) Social History household members: none Smoking Status: Current some day smoker tobacco type: cigarettes alcohol intake: current alcohol intake frequency: holidays/special occasions only substance use type: does not use ROS Constitutional Constitutional: Denies anorexia, change in weight, chills, fatigue or fever(s) Eyes Eyes: Denies blurry vision, change in vision or double vision ENT HEENT: Denies dysphagia, nasal discharge or sore throat Cardiovascular Cardiovascular: Denies chest pain, claudication or palpitations Respiratory/Chest Respiratory/Chest: Denies cough, shortness of breath at rest or wheezing Gastrointestinal Gastrointestinal: Denies abdominal pain, constipation, diarrhea, nausea or vomiting Genitourinary Genitourinary: Denies dysuria, hematuria or urinary urgency Musculoskeletal Musculoskeletal: Denies joint pain, joint stiffness or joint swelling Integumentary Integumentary: Denies jaundice, lesions, pruritus or rash Neurologic Neurologic: Denies dizziness, numbness or seizures Psychiatric Psychiatric: Reports depression Endocrine Endocrinology: Denies cold intolerance or heat intolerance Hematologic/Lymphatic Hematologic/Lymphatic: Denies easy bleeding or easy bruising Physical Exam Const alert, oriented x3 and no apparent distress General Appearance: cooperative HEENT normocephalic Eyes Eyes Narrative: Wears glasses General Eye: normal appearance of both eyes Neck General: normal visual inspection Lymph Lymphatic: no lymphadenopathy noted and no lymphedema noted Resp normal respiratory effort Cardio regular rate and regular rhythm Extremity normal capillary refill, no calf tenderness and no pedal edema Extremity Narrative: Left lower extremity: Vascular: DP and PT pulses palpable. CFT less than 5 seconds to the digits. Hair growth is absent. Normal temperature gradient. Neurologic: Light touch sensation is diminished. Gross sensation intact. Protective sensation is diminished to the foot consistent with diabetic peripheral polyneuropathy. Musculoskeletal: Muscle strength 5 of 5 age-appropriate. No pain to palpation about the posterior aspect of the Achilles tendon/ulcerative site. Achilles tendon appears intact however there is exposure of the sutures at the surgical site secondary to previous dehiscence. Dermatologic: There is an ulceration to the posterior aspect of the distal left lower extremity overlying the Achilles tendon with exposure of the tendon secondary to surgical dehiscence. The tendon is intact with exposure of the braided suture and desiccation and overlying crusting of the superficial portion of the Achilles tendon. Periwound demonstrates healthy appearing fibrogranular border. No purulent drainage, no malodor, no palpable fluctuance/bogginess, no visible abscess. Ulcerative site measures 7.4 cm x 2.2 cm x 0.1 cm. 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 (2) Wound of left ankle: CODE(S): S91.002A - Unspecified open wound, left ankle, initial encounter (3) Degeneration of Achilles tendon: CODE(S): M67.88 - Other specified disorders of synovium and tendon, other site (4) Diabetes mellitus with diabetic polyneuropathy: CODE(S): E11.42 - Type 2 diabetes mellitus with diabetic polyneuropathy QUALIFIERS: Diabetes mellitus termite control technician insulin use: with termite control technician use Diabetes mellitus type: type 2 Qualified Code(s): E11.42 - Type 2 diabetes mellitus with diabetic polyneuropathy; Z79.4 - residential (current) use of insulin (5) Peripheral vascular disease, unspecified: CODE(S): I73.9 - Peripheral vascular disease, unspecified (6) Disruption of internal operation (surgical) wound, not elsewhere classified, initial encounter: CODE(S): T81.32XA - Disruption of internal operation (surgical) wound, not elsewhere classified, initial encounter (7) Diabetes mellitus with ulcer of calf: CODE(S): E11.622 - Type 2 diabetes mellitus with other skin ulcer; L97.209 - Non-pressure chronic ulcer of unspecified calf with unspecified severity PLAN: Plan Patient seen and evaluated. Dr. Stinson, plastic surgeon present for discussion as he will be assisting for possible skin flap harvested from proximal site. Ulcerative site did not undergo debridement today as noted in the clinical panel above. Ulceration to the posterior aspect of the distal left lower extremity overlying the Achilles tendon with exposure of the tendon secondary to surgical dehiscence. The tendon is intact with exposure of the braided suture and desiccation and overlying crusting of the superficial portion of the Achilles tendon. Periwound demonstrates healthy appearing fibrogranular border. No signs of infection. Ulcerative site measures 7.4 cm x 2.2 cm x 0.1 cm. Patient has continued ambulation on this lower extremity following her discharge from the transitional care unit. She was instructed to remain nonweightbearing to the left lower extremity at that time, however did ambulate into wound clinic today. Laboratory data was ordered 05/09/2024 CBC with differential, Chem-12, prealbumin, CRP, ESR, HgbA1c. LEAS also ordered for further evaluation and optimization of the surgical site. Vascular surgery has been consulted for further evaluation and preparation and anticipation of surgical intervention. HgbA1c was 6.9% WBC 8.6, Hgb 11.7 HCT 39.0, platelet 284, ESR 18, CRP 13.10, Sodium 140, potassium 3.7, chloride 104, CO2 31.0, BUN 14, Cr 0.76, glucose 161, calcium 9.0, AST 14, ALT 13, alkaline phosphatase 106, albumin 3.4, prealbumin is pending. Discussed with the patient the need to perform surgical intervention of the surgical dehiscence site in order to remove the braided suture and performed a debridement of the Achilles tendon to healthy viable tendon. Discussed possible placement of incisional wound VAC that would provide irrigation of the surgical site in order to better optimize the field for acceptance of skin flap. Dr. Solano is in agreement and he also discussed surgical intervention with the patient as well. Discussed possibility of intervention for next 05/15/2024. Site was dressed with Dakin's wet to dry dressing. She was instructed to change the dressing daily. Necessary supplies were ordered for patient so that she may continue dressing changes at home with the assistance of visiting nursing. Discussed with patient this will continue to reduce colonization of the braided suture prior to removal. Patient is understanding of this. All questions were answered to patient's level of satisfaction today. Podiatry will continue to follow with assistance in surgical intervention with Dr. Solano for debridement of the Achilles tendon in preparation for advanced skin substitute versus skin flap harvested from proximal site.
--- NOTE | 2024-05-09 12:08 | VDLE_ITS ---
Reason For Study: EDEMA RIGHT LEFT GSV is normal. GSV is normal. CFV is compressible, spontaneous, phasic, CFV is compressible, spontaneous, phasic, competent and demonstrates normal competent, and demonstrates normal augmentation. augmentation. FV is compressible, spontaneous, phasic, FV is compressible, spontaneous, phasic, competent and demonstrates normal competent and demonstrates normal augmentation. augmentation. POP V is compressible, spontaneous, phasic, POP V is compressible, spontaneous, phasic, competent and demonstrates normal competent and demonstrates normal augmentation. augmentation. T/P Trunk is compressible. T/P Trunk is compressible. PTV is compressible. PTV is compressible. RT PerV is compressible. LT PerV is compressible. Procedure This is a venous duplex using B-mode, color flow and spectral Doppler. A preliminary report was called and/or faxed to @ 12:40 pm. VL/Venous Duplex US - Kartik Extrem Interpretation Summary Deep veins of the lower extremities are bilaterally patent and compressible seg mentally. There is no evidence of deep vein thrombosis on either side. Valvular competence appears in tact within the proximal deep venous systems bilaterally. The great saphenous veins appear bila terally patent and compressible segmentally. Ordering Physician: Zack Smith Referring Physician: Gulshan Early Chi Performed By: Wendi Michelle, GUILLAUME, RVT
[2024-05-09 13:10] LABS: Absolute Lymphocyte Count 1.78 X10^3/uL (0.83-4.51); Absolute Neutrophil Count 5.9 X10^3/uL (2.0-7.7); Basophil# 0.05 X10^3/uL; Basophil% 0.6 % (0-1); Eosinophil# 0.19 X10^3/uL; Eosinophils% 2.2 % (0-5); Hemoglobin 11.7 g/dL (12.0-15.0); Lymphocyte # 1.78 X10^3/ul (0.83-4.51); Lymphocyte % 20.8 % (19-41); Mean Corpuscular Hgb 25.5 pg (27.0-32.0); Mean Corpuscular Volume 85.2 fL (81-99); Mean Platelet Vol. 9.3 fl (6.2-12.0); Monocyte# 0.58 X10^3/uL; Monocyte% 6.8 % (0-10); NRBC Flagged by Analyzer 0 % (0-5); Neutrophil # 5.94 X10^3/uL (2.7-7.7); Neutrophil % 69.2 % (47-70); Platelet Count 284 K/mm3 (150-450); RBC Distribution Width CV 14.6 % (11.6-14.6); RBC Distribution Width SD 45.2 fl (35.1-43.9); Red Blood Count 4.58 M/mm3 (4.2-5.4); White Blood Count 8.6 K/mm3 (4.4-11.0)
[2024-05-09 13:12] LABS: Erythrocyte Sedimentation Rate 18 mm/hr (0-30)
[2024-05-09 13:20] LABS: ALB/GLOB Ratio 0.8 RATIO (0.9-2.4); AST(SGOT) 14 U/L (15-37); Alanine Aminotransfer ALT/SGPT 13 U/L (13-56); Albumin, Serum 3.4 g/dL (3.2-5.0); Alkaline Phosphatase 106 U/L (45-117); Anion Gap 5 (5-15); BUN 14 mg/dL (7-18); BUN/Creat Ratio 18.1 RATIO (10-20); Chloride 104 mmol/L (98-107); Creatinine, Serum 0.78 mg/dL (0.55-1.02); EST Glomerular Filtration Rate 81 mL/min (>60); Est Glom Filt Rate - Afr Amer 98 mL/min (>60); Globulin 4.4 g/dL (2.2-4.2); Glucose 161 mg/dL (74-106); Potassium 3.7 mmol/L (3.5-5.1); Protein, Total 7.8 g/dL (6.4-8.2); Sodium Level 140 mmol/L (136-145)
--- NOTE | 2024-05-09 13:51 | EX.PCM.CON.S ---
Assessment & Plan Assessment/Plan (1) Wound of left ankle: PLAN: I discussed with Dr. Smith this patient's condition after I saw and examined her myself at the wound care center as a consultation. The patient will require new labs including A1c, CMP, CBC, and prealbumin. We are also ordering ABIs. I think at this point it is reasonable to attempt excision of the wound/desiccated tendon with removal of the sutures with Dr. Smith (he is in agreement about doing a joint case where we do this), followed by cultures, vancomycin powder, and washout with irrigating wound VAC. After that I would debride the wound once again and potentially place a dermal substitute like Integra. If that does not work, Dr. Smith may need to remove all of the Achilles tendon and the patient may need to wear a brace permanently, which is another option. I do not think she is a great free flap candidate, and even without the Achilles tendon present, we may have trouble healing the wound. I think it is also reasonable that we refer her to Dr. Araya with vascular once we see the results of the ABIs to see if there is anything he can do to improve blood flow to the lower extremity. I talked to the patient extensively about this plan and how there are no guarantees we will be able to reconstruct the soft tissue over the Achilles tendon. She would like to try. She understands the risks of failure to obtain desired result, infection, damage to surrounding structures, persistent wound healing problems, risk of anesthesia including blood clots and problems with her heart and lungs. She would like to proceed. Plan for debridement and removal of sutures with Dr. Smith and myself on 15 May 2024 as a joint case. I have placed a consultation to vascular as well and we will follow-up the ABIs. HPI Consult Data Date of Consult: 05/09/24 Attending Care Provider: Remi Beltran is a 58-year-old female with past medical history of type 2 diabetes, peripheral neuropathy, peripheral vascular disease, asthma, morbid obesity, hypertension, and a left Achilles tendon repair who presents today in the wound care center with Dr. Zack Smith (director of human resources) out of concern for exposure of her Achilles tendon repair. Patient had a calcaneal gait and a calcaneal wound forming earlier this year, which was treated with an Achilles tendon procedure (including flexor houses longus transfer) and subsequent repair. The calcaneal wound healed, but there was breakdown over the Achilles tendon repair of the soft tissue leading to the current exposure. There have been some noncompliance issues, for example she no-showed to her appointment last at the wound care center with Dr. Smith. No recent A1c Patient has had multiple digital amputations on the foot from diabetes and from peripheral arterial disease No recent arterial brachial indices She is a current smoker No history of bleeding or clotting problems personally or in her family (I calculated Caprini score of 4 today with the patient) HPI Narrative HPI Narrative: REMI BELTRAN, is a 58 F who presents [facility] Medical History Current use of insulin Post-menopausal Hiatal hernia Back pain due to injury Osteoporosis Sleep apnea Insulin dependent diabetes mellitus Easy bruising Restless legs Difficulty swallowing Tachycardia Smoker Wears dentures Wears glasses Anxiety Iron deficiency Back pain Dietary restriction GERD (gastroesophageal reflux disease) Shortness of breath Asthma CPAP (continuous positive airway pressure) dependence Leg cramping History of pain when walking Edema Cardiology follow-up encounter History of stress test Normal echocardiogram Hypertension Difficulty balancing when standing Asthma Arthritis Fibromyalgia Multinodular thyroid Hypothyroidism Essential (primary) hypertension Hypergammaglobulinemia Hyperlipemia Dermatitis Depression PAD (peripheral artery disease) Other specified peripheral vascular diseases Hammertoe of left foot Skin ulcer of right foot including toes with fat layer exposed Osteomyelitis of toe Morbid obesity with BMI of 40.0-44.9, adult Diabetes type 2, uncontrolled Venous stasis dermatitis of both lower extremities Home Medications ?Medication ?Instructions ?Recorded ?Last Taken ?Type omeprazole 40 mg capsule,delayed 40 mg PO DAILY ACID REFLUX 10/18/18 02/26/24 History release paroxetine HCl 40 mg tablet 40 mg PO DAILY DEPRESSION 10/29/19 02/26/24 History pregabalin 150 mg capsule 150 mg PO TID NERVE PAIN 10/29/19 02/26/24 History aspirin 81 mg tablet,delayed 81 mg PO DAILY HEART HEALTH 07/21/20 02/26/24 08:10 History release (Adult Low Dose Aspirin) metoprolol succinate 200 mg 200 mg PO DAILY BLOOD PRESSURE 07/21/20 02/26/24 History tablet,extended release 24 hr rosuvastatin 40 mg tablet (Crestor) 40 mg PO DAILY CHOLESTEROL 08/26/22 02/25/24 History pen needle, diabetic 32 gauge x #100 ea 02/13/23 Unknown Rx (BD Ultra-Fine Catalina Pen Needle) dapagliflozin propanediol 10 mg 10 mg PO DAILY DIABETES 03/01/23 02/28/23 History tablet (Farxiga) losartan 100 mg tablet 100 mg PO DAILY BLOOD PRESSURE 03/01/23 02/26/24 History blood sugar diagnostic (True #100 ea 03/24/23 Unknown Rx Metrix Glucose Test Strip) glimepiride 4 mg tablet 4 mg PO DAILY diabetes #30 tabs 04/10/23 Unknown Rx insulin aspart 10 unit subcut TID diabetes #9 mL 05/29/23 02/26/24 Rx (niacinamide)(U-100) 100 unit/mL(3 mL) subcutaneous pen (Fiasp FlexTouch U-100 Insulin) albuterol sulfate 90 mcg/actuation 1 puff inhalation Q6H PRN PRN 01/19/24 01/26/24 10:00 History aerosol inhaler shortness of breath or wheezing tirzepatide 7.5 mg/0.5 mL 7.5 mg subcut QWEEK diabetes 01/19/24 01/15/24 History subcutaneous pen injector (Vaughnunmemoro) celecoxib 200 mg capsule 200 mg PO DAILY pain 02/21/24 Unknown History doxepin 25 mg capsule 25 mg PO QHS sleep 02/21/24 Unknown History levothyroxine 150 mcg tablet 150 mcg PO DAILY hypothyroid 02/21/24 Unknown History montelukast 10 mg tablet 10 mg PO DAILY allergies/asthma 02/21/24 Unknown History potassium chloride 20 mEq 20 meq PO DAILY potassium 02/21/24 Unknown History tablet,extended supplement release(part/cryst) (Klor-Con M) trazodone 150 mg tablet 150 mg PO QHS sleep 02/21/24 Unknown History acetaminophen 500 mg tablet 1,000 mg (2 x 500 mg) PO Q6H PRN 04/02/24 Unknown Rx PRN Pain Score 1-3 #0 tabs arginine 7 gram-glutam 7 1 packet PO BIDCM 30 days #60 ea 04/02/24 Unknown Rx gram-CaHMB 1.5 culo-[id number]-bp-min oral pwd pkt (Drew (with collagen)) oxycodone 5 mg tablet 5 mg PO Q4H PRN PRN Pain Score 07/23/24 Unknown Rx 6-10 Or Pre Pt/Ot 7 days #42 tabs Allergy/AdvReac Type Severity Reaction Status Date / Time piperacillin (From Zosyn) Allergy Severe Anaphylaxis Verified 05/09/24 10:34 tazobactam (From Zosyn) Allergy Severe Anaphylaxis Verified 05/09/24 10:34 sulfamethoxazole (From Allergy Unknown Anaphylaxis Verified 05/09/24 10:34 Bactrim) trimethoprim (From Bactrim) Allergy Unknown Anaphylaxis Verified 05/09/24 10:34 latex Allergy Rash Verified 05/09/24 10:34 pyrethrins Allergy Anaphylaxis Verified 05/09/24 10:34 tetanus and diphtheria Allergy Anaphylaxis Verified 05/09/24 10:34 toxoids (Tetanus&Diphtheria Toxoid) Family History Mother Diabetes Dementia Father Diabetes Myocardial infarction Surgical History Hx of toe surgery History of partial ray amputation of fifth toe of right foot Hx of total knee arthroplasty History of nasal septoplasty History of cholecystectomy History of thyroidectomy H/O arthroscopic knee surgery (11/2019) H/O amputation of lesser toe (05/05/17) Social History household members: none Smoking Status: Current some day smoker tobacco type: cigarettes alcohol intake: current alcohol intake frequency: holidays/special occasions only substance use type: does not use Physical Exam Narrative Approximately 9 x 3 cm area of exposed Achilles tendon with braided suture in the wound. No signs of fluid collections or induration/infection around the open wound. Const alert and oriented x3 HEENT normocephalic Resp normal respiratory effort Cardio Rate: regular rate Extremity Extremity Narrative: 2+ posterior tibial pulses bilaterally Lab / Micro Data 05/09/24 12:15 05/09/24 12:15 Labs: Laboratory Results - last 24 hr 05/09/24 12:15: WBC 8.6, RBC 4.58, Hgb 11.7 L, Hct 39.0, MCV 85.2, MCH 25.5 L, MCHC 30.0 L, RDW Std Deviation 45.2 H, RDW Coeff of Kami 14.6, Plt Count 284, MPV 9.3, Immature Gran % (Auto) 0.400, Neut % (Auto) 69.2, Lymph % (Auto) 20.8, Hale % (Auto) 6.8, Eos % (Auto) 2.2, Baso % (Auto) 0.6, Absolute Neuts (auto) 5.9, Absolute Lymphs (auto) 1.78, Nucleated RBC % 0, ESR 18, Sodium 140, Potassium 3.7, Chloride 104, Carbon Dioxide 31.0, Anion Gap 5, BUN 14, Creatinine 0.78, Est GFR (MDRD) Af Amer 98, Est GFR (MDRD) Non-Af 81, BUN/Creatinine Ratio 18.1, Glucose 161 H, Calcium 9.0, Total Bilirubin 0.40, AST 14 L, ALT 13, Alkaline Phosphatase 106, Total Protein 7.8, Albumin 3.4, Globulin 4.4 H, Albumin/Globulin Ratio 0.8 L Charges/Coding Visit Charges Office Visits / Consults: 86480 OV L5 New 60min
[2024-05-09 13:52] LABS: Hemoglobin A1c 6.9 % (3.8-5.6)
[2024-05-11 06:10] LABS: Prealbumin 21 mg/dL (10-36)
--- NOTE | 2024-05-15 09:03 | WC ---
PHOTO 05/09/24 DANIEL(I)
--- NOTE | 2024-05-15 16:05 | OP.PCM_ITS ---
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 Nonpressure ulceration distal calf to the level of muscle/Achilles tendon Left Leg 2. Superficial foreign body Left Leg 3. Degeneration of the Achilles tendon Left Leg 4. DM type II with peripheral polyneuropathy 5. PVD Post-Operative Diagnosis: 1. Nonpressure ulceration distal calf to the level of muscle/Achilles tendon Left Leg 2. Superficial foreign body Left Leg 3. Degeneration of the Achilles tendon Left Leg 4. DM type II with peripheral polyneuropathy 5. PVD Surgery/Procedure Performed:: 1. Removal of superficial foreign body Left leg by Dr. Smith 2. Debridement of nonpressure ulceration distal calf to the level of muscle /Achilles tendon Left Leg by Dr. Smith 3. Excision of skin ulceration and preparation of graft placement by Dr. Solano 4. Application of Veraflo wound Vac by Dr. Solano Description of Surgical Findings:: Surgery performed with Dr. Solano in tandem. Removal of all foreign body/braided wire left Achilles tendon and debridement of Achilles tendon and all nonviable tissue. Achilles tendon remains intact with healing granulation tissue covering bulk of the tendon. Negative Zayas Test Left Lower Extremity. Surgeon: Zack Smith virtualization engineer: Victorino Solano Type of Anesthesia: General and Local (15 cc 0.25% Marcaine with epinephrine) Specimen's removed: Superficial foreign body/braided suture wire left Achilles tendon Drains: None Estimated Blood Loss (mL): < 2mL Description of Procedure: HPI/indication: Patient is a 58-year-old female with DM type II with peripheral polyneuropathy, peripheral vascular disease, asthma, morbid obesity, HTN, hyperlipidemia and history of prior calcaneal ulceration was transferred to my care from another provider following nonhealing ulceration to the plantar aspect of the left heel. She underwent surgical intervention to correct her calcaneal gait with plantar ulceration of the left heel on 01/26/2024. At the time of surgery she was found to have a tendo Achilles tear to the left lower extremity that resulted in her calcaneal gait. Tendon was debrided and shortening of the tendo Achilles was performed in addition to a flexor hallucis longus (FHL) tendon transfer. 3 weeks later patient did fall placing weight to the foot resulting in a tear of incision site resulting in dehiscence of the surgical site with exposure of the Achilles tendon. She was returned to the OR for debridement on 02/22/2024 and a wound VAC was applied over the ulcerative area. She did undergo PICC line placement and completed 6 weeks of IV antibiotics during her stay in the transitional care unit. Antibiotics were completed and PICC line was removed on 04/04/2024 and patient was transferred home. Patient was assisted in dressing changes with visiting nursing however was lost to follow-up and did no-show first wound care appointment on 05/02/2024. She did return to the wound care center on 05/09/2024, and at that time due to continued non-healing and risk of infection/amputation I discussed with her the need to remove the exposed sutures and perform debridement of the Achilles tendon. Dr. Solano, plastic surgeon, also saw patient in consultation and discussed intervention for optimizing the wound bed for harvest and placement of graft in a stepwise process. Possibility of Integra graft was also discussed with her at that time. I have discussed needing to perform removal of the exposed suture/foreign body in addition to washout with debridement of all necrotic tissue to the level of the Achilles tendon. Dr. Solano discussed optimizing the wound bed with excision of skin ulceration and application of wound VAC to the left lower extremity. I reminded the patient of our previous discussions her high risk of left lower extremity amputation. Patient voices understanding of our discussion and her current situation. Discussed risks and benefits of the procedure in detail and discussed that the risks include but are not limited to the following: Pain, continued pain, neuritis/numbness, complex regional pain syndrome, deformity, continued deformity, scar tissue, poor cosmetic result, infection, inability to wear shoe gear, contracture, difficulty with ambulation, rerupture of the Achilles tendon, need for further surgical procedures/debridement, blood clot, stroke, heart attack, addiction to pain medication, loss of function, loss of limb, loss of life. Patient was able to voice understanding of these and able to repeat these back. Patient understands that this is not an elective procedure but a limb salvage procedure. Patient acknowledges this and wishes to proceed forward with surgical intervention. She was scheduled for Removal of superficial foreign body with debridement of the necrotic tissue left lower extremity/Achilles tendon, Wound bed preparation with excision of ulcer, and application of Veraflow wound VAC left lower extremity at [facility] on 05/15/2024. Procedure: Under mild sedation patient was brought into the operating room and underwent induction of general anesthesia. Following induction of general anesthesia patient was transferred to the operative table in the prone position with all prominences well-padded. Patient was then secured to table with safety belt. Left lower extremity was then scrubbed, prepped, and draped in usual aseptic manner. No tourniquet was applied. At this time attention was directed to the posterior aspect of the left lower extremity where there is an ulceration noted measuring 7.6 cm x 2.8 cm x 0.3 cm with exposure of the Achilles tendon and superficial foreign body/braided suture wire exposed at the operative field. There is also noted to be nonviable tissue, desiccated tendon, and fibrotic tissue in the wound base. No purulent drainage is noted throughout the duration of this case. Utilizing a #15 blade the superficial foreign body/braided suture wire was removed from the portions of the exposed Achilles tendon and transected as far deep as possible. Site was examined and no remaining foreign body was present. Following removal of all noted foreign body a fresh #15 blade was utilized to perform a debridement about the wound margin and to the musculotendinous junction/Achilles tendon. Debridement consisted of removal of nonviable tissue, necrotic tissue, fibrous tissue, biofilm, and slough. Following debridement healthy bleeding tissue was noted. There is no further exposure of the Achilles tendon and there was noted to be healing of the deeper portions with granulation tissue covering the deeper portions of the previous exposed tendon. The foot was then dorsiflexed and noted to have 5 degrees range of motion with intact Achilles tendon. A Zayas test was then performed on the table and noted to be negative indicating intact Achilles tendon. Next, the site was copiously irrigated with 3000 cc pulse lavage. Following irrigation Dr. Solano obtain tissue cultures to send for microbiology. He also performed excision of ulceration to level of healthy bleeding tissue at margins for optimization of graft placement. There was no necrotic tissue remaining following debridement. All remaining portions of skin margin, wound bed, and Achilles tendon are noted to be healthy and viable. Postdebridement measurements obtained noted to be 8.0 cm x 3.0 cm x 0.4 cm. Next, local anesthetic block was then performed about the ulcerative margins consisting of 15 cc 0.25% Marcaine with epinephrine. Following local anesthetic block, 1 g of vancomycin powder was then placed throughout the wound bed. Next, a Veraflow wound VAC was applied by Dr. Solano overlying the area of defect/wound bed. Wound VAC was turned on to a setting of 125 mmHg continuous pressure with no leaks detected. Veraflow was then initiated for continued irrigation of wound with antibiotic wash to optimize wound bed for acceptance of graft. Site was then dressed with 4 x 4 gauze, Kerlix, and a 4 inch JOE wrap rolled onto the foot. Patient tolerated the procedure and anesthesia well was transported to PACU vital signs stable vascular status intact to the left foot. Following anesthesia protocol she will be admitted under medicine and return to the floor and continue to receive IV antibiotics. Wound VAC will stay intact to the left lower extremity and Dr. Solano will come to examine wound bed for placement of graft to be anticipated on 05/20/2024. I will also follow while in house. Grafts/Implants Used: 1 g Vancomycin Powder; VeraFlow Wound Vac Left Leg Complications None Admit VTE Documentation VTE Present on Admission: No VTE Mechan Device Prophylaxis: SCD's VTE Pharm Prophylaxis ordered?: Yes
== END 2024-05-11 23:59 | disposition home or self-care (01) ==
LOC: WC 10:08
PROVIDERS: PCP Family Medicine Geriatric Medicine; Referring Provider Student in an Organized Health Care Education/Training Program; Visit Provider Student in an Organized Health Care Education/Training Program
DX: T81.32XA Disruption of internal operation (surgical) wound, not elsewhere classified, initial encounter (principal); L97.423 Non-pressure chronic ulcer of left heel and midfoot with necrosis of muscle; E66.01 Morbid (severe) obesity due to excess calories; E11.51 Type 2 diabetes mellitus with diabetic peripheral angiopathy without gangrene; Z79.4 Long term (current) use of insulin; E11.42 Type 2 diabetes mellitus with diabetic polyneuropathy; R60.0 Localized edema; Y83.8 Other surgical procedures as the cause of abnormal reaction of the patient, or of later complication, without mention of misadventure at the time of the procedure; I10 Essential (primary) hypertension; E78.5 Hyperlipidemia, unspecified; J45.909 Unspecified asthma, uncomplicated; L03.116 Cellulitis of left lower limb; W19.XXXD Unspecified fall, subsequent encounter; F17.210 Nicotine dependence, cigarettes, uncomplicated; Z79.82 Long term (current) use of aspirin; Z79.84 Long term (current) use of oral hypoglycemic drugs; Z79.85 Long-term (current) use of injectable non-insulin antidiabetic drugs; Z79.891 Long term (current) use of opiate analgesic; Z79.899 Other long term (current) drug therapy; Z89.421 Acquired absence of other right toe(s)
CPT/HCPCS: 36415; 80053; 83036; 84134; 85025; 85652; 86140; 93970; 99213; 99214; G0463

== ENCOUNTER → 2024-05-14 14:10 | Outpatient (RCR) | payer MEDICARE, MEDICAID, SELFPAY ==
[2024-05-12 00:33] VITALS: BP 129/74; PULSE 76; RESP 18; TEMP 36.2
--- NOTE | 2024-05-14 14:11 | ART_ITS ---
Reason For Study: PVD Procedure A bilateral lower extremity continuous wave Doppler with analog waveform analysis,segmental pressures,and ankle brachial indexes without exercise. Left Segmental Pressures Left brachial= 120mmHg. Left posterior tibial artery = 129mmHg. Left dorsalis pedis artery = 138mmHg. Left digit = 91 mmHg. The left posterior tibial artery waveforms are triphasic. The left dorsalis pedis waveforms are triphasic. Right Segmental Pressures Right brachial= 117mmHg. Right posterior tibial artery = 153mmHg. Right dorsalis pedis artery = 132mmHg. Right digit = 107 mmHg. The right posterior tibial artery waveforms are triphasic. The right dorsalis pedis waveforms are triphasic. Indices The right ankle brachial index by the posterior tibial artery is 1.28. The right ankle brachial index by the dorsalis pedis is 1.10. The right digital-brachial index is 0.89. The left ankle brachial index by the posterior tibial artery is 1.08. The left ankle brachial index by the dorsalis pedis is 1.15. The left digital-brachial index is 0.76. VL/Lower Ext Art Exam w/o Exercis Interpretation Summary Triphasic Doppler waveforms are noted at ankle level bilaterally. Pulse-volume recordings appear satisfactory at all levels bilaterally. Resting ankle-brachial indices are norm al bilaterally. Digital-brachial indices are normal bilaterally. There is no evidence of significant arterial occlusive disease in the lower ext remities bilaterally. Ordering Physician: Zack Smith Referring Physician: Gulshan Early Chi Performed By: Jerry Berumen RVYong
== END ==
LOC: CVS 14:10
PROVIDERS: PCP Family Medicine Geriatric Medicine; Referring Provider Student in an Organized Health Care Education/Training Program; Visit Provider Student in an Organized Health Care Education/Training Program
DX: I73.9 Peripheral vascular disease, unspecified (principal); R60.0 Localized edema
CPT/HCPCS: 93923; J2405

== ENCOUNTER 2024-05-15 15:01 | Inpatient (IN) | payer MEDICARE, MEDICAID, SELFPAY ==
[2024-05-15] VITALS (17 sets, daily range): BP systolic 104–157; BP diastolic 52–82; PULSE 53–90; RESP 14–18; TEMP 36.1–36.6; O2SAT 88–100; BMI 32.8; BMI 34.9
[2024-05-15] MEDS: Lactated Ringers 1,000 ML 15 ML IV (13:34)
--- NOTE | 2024-05-15 13:44 | HP.PCM.HOS_ITS ---
HPI - General General Date of Admission: 05/15/24 Date of Service: 05/15/24 Chief Complaint: Left achilles wound HPI Narrative REMI TREVINO, is a 58 F with an extensive past medical history as outlined including hypertension diabetes with a chronic left heel ulcer who was admitted on 05/15/2024 for debridement of the left ankle wound. Patient was admitted as a courtesy to Dr. Nix the plastic surgeon. Patient was seen in the preop [facility] room. Her daughter was by her bedside. She had had this ulcer for several months and says she had seen wound care and podiatry for treatment but the wound still persisted. She complained of 7-8/10 pain in the left ankle. She denies any fever chills or any other symptoms.. Systems otherwise negative. Patient was therefore brought in for wound debridement and application of the mid back and probable Achilles tendon repair subsequently. Vitals in the ED were blood pressure 104/58, pulse rate of 62, respiratory of 16 and symptoms of 97 Fahrenheit. She was saturating at 98% on room air. No CBC and BMP had been done and these were ordered. [facility] Medical History (Updated 05/14/24 @ 12:36 by Davey Wilkerson) Open wound Current use of insulin Post-menopausal Hiatal hernia Back pain due to injury Osteoporosis Sleep apnea Insulin dependent diabetes mellitus Easy bruising Restless legs Difficulty swallowing Tachycardia Smoker Wears dentures Wears glasses Anxiety Iron deficiency Back pain Dietary restriction GERD (gastroesophageal reflux disease) Shortness of breath Asthma CPAP (continuous positive airway pressure) dependence Leg cramping History of pain when walking Edema Cardiology follow-up encounter History of stress test Normal echocardiogram Hypertension Difficulty balancing when standing Asthma Arthritis Fibromyalgia Multinodular thyroid Hypothyroidism Essential (primary) hypertension Hypergammaglobulinemia Hyperlipemia Dermatitis Depression PAD (peripheral artery disease) Other specified peripheral vascular diseases Hammertoe of left foot Skin ulcer of right foot including toes with fat layer exposed Osteomyelitis of toe Morbid obesity with BMI of 40.0-44.9, adult Diabetes type 2, uncontrolled Venous stasis dermatitis of both lower extremities Home Medications ?Medication ?Instructions ?Recorded ?Last Taken ?Type omeprazole 40 mg capsule,delayed 40 mg PO DAILY ACID REFLUX 10/18/18 05/14/24 History release paroxetine HCl 40 mg tablet 40 mg PO DAILY DEPRESSION 10/29/19 05/14/24 History pregabalin 150 mg capsule 150 mg PO TID NERVE PAIN 10/29/19 05/14/24 History aspirin 81 mg tablet,delayed 81 mg PO DAILY HEART HEALTH 07/21/20 05/08/24 History release (Adult Low Dose Aspirin) metoprolol succinate 200 mg 200 mg PO DAILY BLOOD PRESSURE 07/21/20 05/14/24 History tablet,extended release 24 hr rosuvastatin 40 mg tablet (Crestor) 40 mg PO DAILY CHOLESTEROL 08/26/22 05/14/24 History pen needle, diabetic 32 gauge x #100 ea 02/13/23 Unknown Rx (BD Ultra-Fine Catalina Pen Needle) dapagliflozin propanediol 10 mg 10 mg PO DAILY DIABETES 03/01/23 05/14/24 History tablet (Farxiga) losartan 100 mg tablet 100 mg PO DAILY BLOOD PRESSURE 03/01/23 05/14/24 History blood sugar diagnostic (True #100 ea 03/24/23 Unknown Rx Metrix Glucose Test Strip) glimepiride 4 mg tablet 4 mg PO DAILY diabetes #30 tabs 04/10/23 05/14/24 Rx insulin aspart 10 unit subcut TID diabetes #9 mL 05/29/23 02/26/24 Rx (niacinamide)(U-100) 100 unit/mL(3 mL) subcutaneous pen (Fiasp FlexTouch U-100 Insulin) albuterol sulfate 90 mcg/actuation 1 puff inhalation Q6H PRN PRN 01/19/24 05/12/24 History aerosol inhaler shortness of breath or wheezing tirzepatide 7.5 mg/0.5 mL 7.5 mg subcut QWEEK diabetes 01/19/24 04/29/24 History subcutaneous pen injector (Rex) celecoxib 200 mg capsule 200 mg PO DAILY pain 02/21/24 05/14/24 History doxepin 25 mg capsule 25 mg PO QHS sleep 02/21/24 05/14/24 History levothyroxine 150 mcg tablet 150 mcg PO DAILY hypothyroid 02/21/24 05/14/24 History montelukast 10 mg tablet 10 mg PO DAILY allergies/asthma 02/21/24 05/14/24 History potassium chloride 20 mEq 20 meq PO DAILY potassium 02/21/24 05/14/24 History tablet,extended supplement release(part/cryst) (Klor-Con M) trazodone 150 mg tablet 150 mg PO QHS sleep 02/21/24 05/14/24 History acetaminophen 500 mg tablet 1,000 mg (2 x 500 mg) PO Q6H PRN 04/02/24 Unknown Rx PRN Pain Score 1-3 #0 tabs arginine 7 gram-glutam 7 1 packet PO BIDCM 30 days #60 ea 04/02/24 Unknown Rx gram-CaHMB 1.5 gpef-[id number]-ch-min oral pwd pkt (Drew (with collagen)) oxycodone 5 mg tablet 5 mg PO Q4H PRN PRN Pain Score 04/02/24 05/14/24 Rx 6-10 Or Pre Pt/Ot 7 days #42 tabs vitamin B complex (Vitamins B 1 cap PO DAILY 05/15/24 05/14/24 History Complex capsule) Allergy/AdvReac Type Severity Reaction Status Date / Time piperacillin (From Zosyn) Allergy Severe Anaphylaxis Verified 05/15/24 13:21 tazobactam (From Zosyn) Allergy Severe Anaphylaxis Verified 05/15/24 13:21 sulfamethoxazole (From Allergy Unknown Anaphylaxis Verified 05/15/24 13:21 Bactrim) trimethoprim (From Bactrim) Allergy Unknown Anaphylaxis Verified 05/15/24 13:21 latex Allergy Rash Verified 05/15/24 13:21 pyrethrins Allergy Anaphylaxis Verified 05/15/24 13:21 tetanus and diphtheria Allergy Anaphylaxis Verified 05/15/24 13:21 toxoids (Tetanus&Diphtheria Toxoid) Family History Mother Diabetes Dementia Father Diabetes Myocardial infarction Surgical History Hx of toe surgery History of partial ray amputation of fifth toe of right foot Hx of total knee arthroplasty History of nasal septoplasty History of cholecystectomy History of thyroidectomy H/O arthroscopic knee surgery (11/2019) H/O amputation of lesser toe (05/05/17) Social History household members: none Smoking Status: Current some day smoker tobacco type: cigarettes and e- cigarettes alcohol intake: current alcohol intake frequency: holidays/special occasions only substance use type: does not use ROS Constitutional Constitutional: Denies anorexia, chills, fatigue, fever(s), malaise or weakness Eyes Eyes: Denies change in vision ENT HEENT: Denies dysphagia, epistaxis, headache(s) or nasal congestion Cardiovascular Cardiovascular: Denies chest pain, dyspnea on exertion, edema, lightheadedness, orthopnea, palpitations, paroxysmal nocturnal dyspnea, rapid heart rate or syncope Respiratory/Chest Respiratory/Chest: Denies cough, dyspnea, productive cough, shortness of breath at rest or shortness of breath with exertion Gastrointestinal Gastrointestinal: Denies abdominal pain, constipation, diarrhea, nausea or vomiting Genitourinary Genitourinary: Denies burning urination or dysuria Musculoskeletal Musculoskeletal: Reports joint pain; Denies arthralgias, back pain, joint stiffness or joint swelling Neurologic Neurologic: Denies confusion, dizziness, focal weakness, headache(s) or numbness Psychiatric Psychiatric: Denies anxiety or depression Endocrine Endocrinology: Denies change in body appearance Hematologic/Lymphatic Hematologic/Lymphatic: Denies anemia Vital Signs Vital Signs Vital Signs: 05/15/24 13:27 05/15/24 13:27 Temperature 97 F L Temperature Source Temporal Pulse Rate 62 Respiratory Rate 16 Respiratory Pattern Normal Blood Pressure 104/58 L Blood Pressure Mean 73 Blood Pressure Source Monitor Blood Pressure Position Semi-Fowlers Blood Pressure Location Right Arm Pulse Ox 98 Oxygen Delivery Method Room Air Weight Weight: 216 lb Body Mass Index (BMI) 32.8 Physical Exam Const alert, oriented x3 and no apparent distress Constitutional Narrative: obese General Appearance: cooperative HEENT normocephalic, head/scalp atraumatic, hearing grossly normal bilaterally and moist oral mucous membranes Mouth: oral and palatal mucosa normal Eyes PERRL, EOMs intact bilaterally and conjunctivae normal Neck no lymphadenopathy and supple Resp normal respiratory effort, no retractions, no use of accessory muscles and clear to auscultation bilaterally Cardio regular rate, regular rhythm, S1 normal heart sound, S2 normal heart sound and no murmurs GI normal to inspection, nondistended, normoactive bowel sounds, soft to palpation, non-tender and non-distended Extremity normal to inspection and full ROM Extremity Narrative: intact bandage over left ankle Skin Skin Narrative: left ankle bandaged. Neuro oriented x3, CN's II-XII intact bilaterally, moves all extremities and no focal motor deficits Sensorium / Orientation: awake and alert Motor Exam: strength 5/5 throughout Psych affect normal Assessment & Plan Assessment/Plan (1) Diabetes mellitus with ulcer of calf: (2) Wound of left ankle: (3) Essential (primary) hypertension: (4) Type 2 diabetes mellitus with hyperglycemia: PLAN: Plan #Chronic left heel ulcer in the setting of diabetes mellitus * says she has had the ulcer for several months, and all outpatient management as not been successful * for wound debridement with application of wound vac by plastic surgery and podiatry today * management as per plastic surgery * CBC and BMP ordered * PT OT consulted #Type 2 diabetes mellitus * On Farxiga as well as glimepiride. Insulin sliding scale. Accu-Cheks ACHS. Patient says she is allergic to Jardiance. We do not have Farxiga nonformulary. Will hold Farxiga. Also on Mounjaro weekly. #Hypertension: On metoprolol and losartan. IV hydralazine as needed #Hypothyroidism: On Synthroid #Hyperlipidemia: On statin DVT prophylaxis: Lovenox CODE STATUS: Full code * Patient counseled extensively about different types of CODE STATUS including full code, DNR CCA and DNR CCA. Patient elects to be full code. * Total [id number]-gf-[id number] time 17 minutes. # Charges/Coding Visit Charges Inpatient E&M: 42083 Init Hosp L3 Procedures Hospitalists Procedures: 20331 Advncd Care Plan 30 Min
[2024-05-15 13:59] LABS: Bedside Glucose 161 mg/dL (74-106)
[2024-05-15 14:16] LABS: Absolute Lymphocyte Count 1.63 X10^3/uL (0.83-4.51); Absolute Neutrophil Count 3.3 X10^3/uL (2.0-7.7); Basophil# 0.04 X10^3/uL; Basophil% 0.7 % (0-1); Eosinophil# 0.15 X10^3/uL; Eosinophils% 2.7 % (0-5); Hematocrit 35.9 % (37-47); Hemoglobin 10.9 g/dL (12.0-15.0); Lymphocyte # 1.63 X10^3/ul (0.83-4.51); Lymphocyte % 29.2 % (19-41); Mean Corp Hgb Conc 30.4 g/dL (32-36); Mean Corpuscular Hgb 25.7 pg (27.0-32.0); Mean Corpuscular Volume 84.7 fL (81-99); Mean Platelet Vol. 9.3 fl (6.2-12.0); Monocyte# 0.47 X10^3/uL; Monocyte% 8.4 % (0-10); NRBC Flagged by Analyzer 0 % (0-5); Neutrophil # 3.28 X10^3/uL (2.7-7.7); Neutrophil % 58.6 % (47-70); Platelet Count 260 K/mm3 (150-450); RBC Distribution Width CV 14.3 % (11.6-14.6); RBC Distribution Width SD 44.2 fl (35.1-43.9); Red Blood Count 4.24 M/mm3 (4.2-5.4); White Blood Count 5.6 K/mm3 (4.4-11.0)
--- NOTE | 2024-05-15 14:16 | PCM.PRE.AN2 ---
ASA Classification* ASA Classification ASA Classification: 3 Assessment & Plan Anesthesia* Anesthesia Assessment Anesthesia Assessment: Discussed sedation and/or anesthesia options, risks, benefits, and alternatives with patient/parents/legal guardian/POA. Questions invited. The patient/parents/legal guardian/POA seems to understand and agrees to proceed with anesthesia plan. Reviewed the physical assessment, medical history, allergy history and patient home medications list prior to surgery/procedure/anesthetic and documented any changes. Performed airway and anesthesia risk assessments. Anesthesia Type Anesthesia Type: General History Source History Obtained from:: Patient and Chart Anesthesia Focused Assessment* Temperature: 97 F Pulse Rate: 62 Blood Pressure: 104/58 Respiratory Rate: 16 Pulse Ox: 98 Oxygen Delivery Method: Room Air Airway Assessment Mouth opens: >3 cm Mallampati Score: II Teeth Condition: Missing Neck Range of motion (ROM): Full ROM Focused Labs Anesthesia Preop lab: CBC WBC 5.6 K/mm3 (4.4-11.0) 05/15/24 14:00 RBC 4.24 M/mm3 (4.2-5.4) 05/15/24 14:00 Hgb 10.9 g/dL (12.0-15.0) L 05/15/24 14:00 Hct 35.9 % (37-47) L 05/15/24 14:00 Plt Count 260 K/mm3 (150-450) 05/15/24 14:00 CHEMISTRY Potassium 3.7 mmol/L (3.5-5.1) 05/09/24 12:15 Sodium 140 mmol/L (136-145) 05/09/24 12:15 Magnesium 2.2 mg/dL (1.6-2.6) 02/22/24 07:17 Phosphorus 4.6 mg/dL (2.5-4.9) 02/22/24 07:17 BUN 14 mg/dL (7-18) 05/09/24 12:15 Creatinine 0.78 mg/dL (0.55-1.02) 05/09/24 12:15 Glucose 161 mg/dL (74-106) H 05/09/24 12:15 POC Glucose 161 mg/dL (74-106) H 05/15/24 13:23 TSH 0.13 uIU/mL (0.358-3.74) L 02/22/24 07:17 COAG PT 15.0 SECONDS (11.7-14.9) H 02/22/24 07:17 Pre-Assessment Diagnosis/Proposed Procedure Planned Operative Procedure(s): EXCISION OF LEFT ANKLE WOUND Anesthesia History 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 When Was Last Pacemaker Check QUESTION #4 FULL TEXT: You/Your Family Experience fever (hyperthermia) with Anesthesia Any additional information?: No Last Oral Intake Last Oral intake: Last Oral Intake NPO since 11:45 05/15/24 13:27 Meds taken in AM with sips of Yes 05/15/24 13:27 water? Meds patient instructed to see chart 05/15/24 13:27 take am of surgery Any additional information?: No PONV PONV - flight attendant ramp: PONV - flight attendant ramp Female Yes 05/14/24 12:28 HX of Motion Sickness No 05/14/24 12:28 HX of N/V After Surgery No 05/14/24 12:28 Non-Smoker No 05/14/24 12:28 Duration of Surgery greater Yes 05/14/24 12:28 than 60 minutes Number of Risk Factors 2 05/14/24 12:28 PONV Score Moderate Risk 05/14/24 12:28 Any additional information?: No Height & Weight Height & Weight: Anesthesia: Height & Weight Height 5 ft 8 in 05/15/24 13:27 Weight: 97.976 kg 05/15/24 13:27 Body Mass Index (BMI) 32.8 05/15/24 13:27 Respiratory Assessment Respiratory Assessment - flight attendant ramp: Respiratory Tract Infection Hx - flight attendant ramp Hx Respiratory Tract Infection No 05/14/24 12:28 Any additional information?: No STOP Sleep Apnea STOP Sleep Apnea - flight attendant ramp: STOP Sleep Apnea - flight attendant ramp Hx Hypertension Yes: CONTROLLED 05/14/24 12:28 Hx Sleep Apnea Yes 05/14/24 12:28 CPAP Yes: DOESN'T WEAR 05/14/24 12:28 BIPAP No 05/14/24 12:28 Do you snore loudly (louder than talking or can be heard Do you often feel tired/ fatigued/ sleepy during daytime? Has anyone observed you stop breathing during sleep? STOP Results Positive 05/14/24 12:28 QUESTION #5 FULL TEXT : Do you snore loudly (louder than talking or can be heard through closed doors)? 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 Specify any problems Hx of Preganancy in last 3 No 05/14/24 12:28 Months Nurse Filling Out Transfusion [id number] 05/14/24 12:28 & Questions: Date: 05/14/24 05/14/24 12:28 Time: 12:31 05/14/24 12:28 Patient unable to answer at this time (ie. confused, unrespo Any additional information?: No /Reproduction History /Reproductive History - flight attendant ramp: /Reproductive Hx- flight attendant ramp Hx Now Gestational Age (in weeks): EDC: Hx Hx Para Hx Section SAB No 05/14/24 12:28 Any additional information?: No Active Medications Active Medications: Current Medications Generic Name Dose Route Start Last Admin Trade Name Freq PRN Reason Stop Dose Admin Lactated Ringer's 1,000 mls @ 15 mls/hr 05/15/24 13:15 05/15/24 13:34 IV 15 mls/hr .Q48H RUTH Administration Clindamycin Phosphate 900 mg in 50 mls @ 75 mls/hr 05/15/24 14:00 Cleocin IV 05/15/24 14:39 PREOP ONE PFSH Medical History (Updated 05/14/24 @ 12:36 by Davey Wilkerson) Open wound Current use of insulin Post-menopausal Hiatal hernia Back pain due to injury Osteoporosis Sleep apnea Insulin dependent diabetes mellitus Easy bruising Restless legs Difficulty swallowing Tachycardia Smoker Wears dentures Wears glasses Anxiety Iron deficiency Back pain Dietary restriction GERD (gastroesophageal reflux disease) Shortness of breath Asthma CPAP (continuous positive airway pressure) dependence Leg cramping History of pain when walking Edema Cardiology follow-up encounter History of stress test Normal echocardiogram Hypertension Difficulty balancing when standing Asthma Arthritis Fibromyalgia Multinodular thyroid Hypothyroidism Essential (primary) hypertension Hypergammaglobulinemia Hyperlipemia Dermatitis Depression PAD (peripheral artery disease) Other specified peripheral vascular diseases Hammertoe of left foot Skin ulcer of right foot including toes with fat layer exposed Osteomyelitis of toe Morbid obesity with BMI of 40.0-44.9, adult Diabetes type 2, uncontrolled Venous stasis dermatitis of both lower extremities Home Medications ?Medication ?Instructions ?Recorded ?Last Taken ?Type omeprazole 40 mg capsule,delayed 40 mg PO DAILY ACID REFLUX 10/18/18 05/14/24 History release paroxetine HCl 40 mg tablet 40 mg PO DAILY DEPRESSION 10/29/19 05/14/24 History pregabalin 150 mg capsule 150 mg PO TID NERVE PAIN 10/29/19 05/14/24 History aspirin 81 mg tablet,delayed 81 mg PO DAILY HEART HEALTH 07/21/20 05/08/24 History release (Adult Low Dose Aspirin) metoprolol succinate 200 mg 200 mg PO DAILY BLOOD PRESSURE 07/21/20 05/14/24 History tablet,extended release 24 hr rosuvastatin 40 mg tablet (Crestor) 40 mg PO DAILY CHOLESTEROL 08/26/22 05/14/24 History pen needle, diabetic 32 gauge x #100 ea 02/13/23 Unknown Rx (BD Ultra-Fine Catalina Pen Needle) dapagliflozin propanediol 10 mg 10 mg PO DAILY DIABETES 03/01/23 05/14/24 History tablet (Farxiga) losartan 100 mg tablet 100 mg PO DAILY BLOOD PRESSURE 03/01/23 05/14/24 History blood sugar diagnostic (True #100 ea 03/24/23 Unknown Rx Metrix Glucose Test Strip) glimepiride 4 mg tablet 4 mg PO DAILY diabetes #30 tabs 04/10/23 05/14/24 Rx insulin aspart 10 unit subcut TID diabetes #9 mL 05/29/23 02/26/24 Rx (niacinamide)(U-100) 100 unit/mL(3 mL) subcutaneous pen (Fiasp FlexTouch U-100 Insulin) albuterol sulfate 90 mcg/actuation 1 puff inhalation Q6H PRN PRN 01/19/24 05/12/24 History aerosol inhaler shortness of breath or wheezing tirzepatide 7.5 mg/0.5 mL 7.5 mg subcut QWEEK diabetes 01/19/24 04/29/24 History subcutaneous pen injector (Rex) celecoxib 200 mg capsule 200 mg PO DAILY pain 02/21/24 05/14/24 History doxepin 25 mg capsule 25 mg PO QHS sleep 02/21/24 05/14/24 History levothyroxine 150 mcg tablet 150 mcg PO DAILY hypothyroid 02/21/24 05/14/24 History montelukast 10 mg tablet 10 mg PO DAILY allergies/asthma 02/21/24 05/14/24 History potassium chloride 20 mEq 20 meq PO DAILY potassium 02/21/24 05/14/24 History tablet,extended supplement release(part/cryst) (Klor-Con M) trazodone 150 mg tablet 150 mg PO QHS sleep 02/21/24 05/14/24 History acetaminophen 500 mg tablet 1,000 mg (2 x 500 mg) PO Q6H PRN 04/02/24 Unknown Rx PRN Pain Score 1-3 #0 tabs arginine 7 gram-glutam 7 1 packet PO BIDCM 30 days #60 ea 04/02/24 Unknown Rx gram-CaHMB 1.5 dqrr-zmaag-nd-min oral pwd pkt (Drew (with collagen)) oxycodone 5 mg tablet 5 mg PO Q4H PRN PRN Pain Score 04/02/24 05/14/24 Rx 6-10 Or Pre Pt/Ot 7 days #42 tabs vitamin B complex (Vitamins B 1 cap PO DAILY 05/15/24 05/14/24 History Complex capsule) Allergy/AdvReac Type Severity Reaction Status Date / Time piperacillin (From Zosyn) Allergy Severe Anaphylaxis Verified 05/15/24 13:21 tazobactam (From Zosyn) Allergy Severe Anaphylaxis Verified 05/15/24 13:21 sulfamethoxazole (From Allergy Unknown Anaphylaxis Verified 05/15/24 13:21 Bactrim) trimethoprim (From Bactrim) Allergy Unknown Anaphylaxis Verified 05/15/24 13:21 latex Allergy Rash Verified 05/15/24 13:21 pyrethrins Allergy Anaphylaxis Verified 05/15/24 13:21 tetanus and diphtheria Allergy Anaphylaxis Verified 05/15/24 13:21 toxoids (Tetanus&Diphtheria Toxoid) Family History Mother Diabetes Dementia Father Diabetes Myocardial infarction Surgical History Hx of toe surgery History of partial ray amputation of fifth toe of right foot Hx of total knee arthroplasty History of nasal septoplasty History of cholecystectomy History of thyroidectomy H/O arthroscopic knee surgery (11/2019) H/O amputation of lesser toe (05/05/17) Social History household members: none Smoking Status: Current some day smoker tobacco type: cigarettes and e-cigarettes alcohol intake: current alcohol intake frequency: holidays/special occasions only substance use type: does not use Review of Systems (Anesthesia) ROS Narrative System reviewed and no additional complaints, except as documented. Constitutional Constitutional: Denies anorexia, chills, fatigue, fever(s), malaise or weakness Eyes Eyes: Denies change in vision ENT HEENT: Denies dysphagia, epistaxis, headache(s) or nasal congestion Cardiovascular Cardiovascular: Denies chest pain, dyspnea on exertion, edema, lightheadedness, orthopnea, palpitations, paroxysmal nocturnal dyspnea, rapid heart rate or syncope Respiratory/Chest Respiratory/Chest: Denies cough, dyspnea, productive cough, shortness of breath at rest or shortness of breath with exertion Gastrointestinal Gastrointestinal: Denies abdominal pain, constipation, diarrhea, nausea or vomiting Genitourinary Genitourinary: Denies burning urination or dysuria Musculoskeletal Musculoskeletal: Reports joint pain; Denies arthralgias, back pain, joint stiffness or joint swelling Neurologic Neurologic: Denies confusion, dizziness, focal weakness, headache(s) or numbness Psychiatric Psychiatric: Denies anxiety or depression Endocrine Endocrinology: Denies change in body appearance Hematologic/Lymphatic Hematologic/Lymphatic: Denies anemia Physical Exam Const alert and oriented x3 Orientation / Consciousness: awake Neck full ROM Resp normal respiratory effort and normal air movement Cardio regular rate and regular rhythm Back/Spine normal ROM Extremity full ROM Neuro oriented x3 and moves all extremities
--- NOTE | 2024-05-15 14:17 | PCM.HP.STD ---
HPI - General General Date of Admission: 05/15/24 Chief Complaint: Left achilles wound HPI Narrative Dewey Beltran is a 58-year-old female with past medical history of type 2 diabetes, peripheral neuropathy, peripheral vascular disease, asthma, morbid obesity, hypertension, and a left Achilles tendon repair who presents today in the wound care center with Dr. Zack Smith (research environmental scientist) out of concern for exposure of her Achilles tendon repair. Patient had a calcaneal gait and a calcaneal wound forming earlier this year, which was treated with an Achilles tendon procedure (including flexor houses longus transfer) and subsequent repair. The calcaneal wound healed, but there was breakdown over the Achilles tendon repair of the soft tissue leading to the current exposure. There have been some noncompliance issues, for example she no-showed to her appointment last at the wound care center with Dr. Smith. No recent A1c Patient has had multiple digital amputations on the foot from diabetes and from peripheral arterial disease No recent arterial brachial indices She is a current smoker No history of bleeding or clotting problems personally or in her family (I calculated Caprini score of 4 today with the patient) Current Encounter (DATE OF SURGERY H&P UPDATE): I saw and examined the patient this morning in pre-operative holding. We discussed risks and benefits of today's surgery and they would like to proceed. NO CHANGE in health history since last seen and evaluated. Ready to proceed with surgery. [facility] Medical History (Updated 05/14/24 @ 12:36 by Davey Wilkerson) Open wound Current use of insulin Post-menopausal Hiatal hernia Back pain due to injury Osteoporosis Sleep apnea Insulin dependent diabetes mellitus Easy bruising Restless legs Difficulty swallowing Tachycardia Smoker Wears dentures Wears glasses Anxiety Iron deficiency Back pain Dietary restriction GERD (gastroesophageal reflux disease) Shortness of breath Asthma CPAP (continuous positive airway pressure) dependence Leg cramping History of pain when walking Edema Cardiology follow-up encounter History of stress test Normal echocardiogram Hypertension Difficulty balancing when standing Asthma Arthritis Fibromyalgia Multinodular thyroid Hypothyroidism Essential (primary) hypertension Hypergammaglobulinemia Hyperlipemia Dermatitis Depression PAD (peripheral artery disease) Other specified peripheral vascular diseases Hammertoe of left foot Skin ulcer of right foot including toes with fat layer exposed Osteomyelitis of toe Morbid obesity with BMI of 40.0-44.9, adult Diabetes type 2, uncontrolled Venous stasis dermatitis of both lower extremities Home Medications ?Medication ?Instructions ?Recorded ?Last Taken ?Type omeprazole 40 mg capsule,delayed 40 mg PO DAILY ACID REFLUX 10/18/18 05/14/24 History release paroxetine HCl 40 mg tablet 40 mg PO DAILY DEPRESSION 10/29/19 05/14/24 History pregabalin 150 mg capsule 150 mg PO TID NERVE PAIN 10/29/19 05/14/24 History aspirin 81 mg tablet,delayed 81 mg PO DAILY HEART HEALTH 07/21/20 05/08/24 History release (Adult Low Dose Aspirin) metoprolol succinate 200 mg 200 mg PO DAILY BLOOD PRESSURE 07/21/20 05/14/24 History tablet,extended release 24 hr rosuvastatin 40 mg tablet (Crestor) 40 mg PO DAILY CHOLESTEROL 08/26/22 05/14/24 History pen needle, diabetic 32 gauge x #100 ea 02/13/23 Unknown Rx (BD Ultra-Fine [place] Pen Needle) dapagliflozin propanediol 10 mg 10 mg PO DAILY DIABETES 03/01/23 05/14/24 History tablet (Farxiga) losartan 100 mg tablet 100 mg PO DAILY BLOOD PRESSURE 03/01/23 05/14/24 History blood sugar diagnostic (True #100 ea 03/24/23 Unknown Rx Metrix Glucose Test Strip) glimepiride 4 mg tablet 4 mg PO DAILY diabetes #30 tabs 04/10/23 05/14/24 Rx insulin aspart 10 unit subcut TID diabetes #9 mL 05/29/23 02/26/24 Rx (niacinamide)(U-100) 100 unit/mL(3 mL) subcutaneous pen (Fiasp FlexTouch U-100 Insulin) albuterol sulfate 90 mcg/actuation 1 puff inhalation Q6H PRN PRN 01/19/24 05/12/24 History aerosol inhaler shortness of breath or wheezing tirzepatide 7.5 mg/0.5 mL 7.5 mg subcut QWEEK diabetes 01/19/24 04/29/24 History subcutaneous pen injector (Rex) celecoxib 200 mg capsule 200 mg PO DAILY pain 02/21/24 05/14/24 History doxepin 25 mg capsule 25 mg PO QHS sleep 02/21/24 05/14/24 History levothyroxine 150 mcg tablet 150 mcg PO DAILY hypothyroid 02/21/24 05/14/24 History montelukast 10 mg tablet 10 mg PO DAILY allergies/asthma 02/21/24 05/14/24 History potassium chloride 20 mEq 20 meq PO DAILY potassium 02/21/24 05/14/24 History tablet,extended supplement release(part/cryst) (Klor-Con M) trazodone 150 mg tablet 150 mg PO QHS sleep 02/21/24 05/14/24 History acetaminophen 500 mg tablet 1,000 mg (2 x 500 mg) PO Q6H PRN 04/02/24 Unknown Rx PRN Pain Score 1-3 #0 tabs arginine 7 gram-glutam 7 1 packet PO BIDCM 30 days #60 ea 04/02/24 Unknown Rx gram-CaHMB 1.5 [id number] oral pwd pkt (Drew (with collagen)) oxycodone 5 mg tablet 5 mg PO Q4H PRN PRN Pain Score 04/02/24 05/14/24 Rx 6-10 Or Pre Pt/Ot 7 days #42 tabs vitamin B complex (Vitamins B 1 cap PO DAILY 05/15/24 05/14/24 History Complex capsule) Allergy/AdvReac Type Severity Reaction Status Date / Time piperacillin (From Zosyn) Allergy Severe Anaphylaxis Verified 05/15/24 13:21 tazobactam (From Zosyn) Allergy Severe Anaphylaxis Verified 05/15/24 13:21 sulfamethoxazole (From Allergy Unknown Anaphylaxis Verified 05/15/24 13:21 Bactrim) trimethoprim (From Bactrim) Allergy Unknown Anaphylaxis Verified 05/15/24 13:21 latex Allergy Rash Verified 05/15/24 13:21 pyrethrins Allergy Anaphylaxis Verified 05/15/24 13:21 tetanus and diphtheria Allergy Anaphylaxis Verified 05/15/24 13:21 toxoids (Tetanus&Diphtheria Toxoid) Family History Mother Diabetes Dementia Father Diabetes Myocardial infarction Surgical History Hx of toe surgery History of partial ray amputation of fifth toe of right foot Hx of total knee arthroplasty History of nasal septoplasty History of cholecystectomy History of thyroidectomy H/O arthroscopic knee surgery (11/2019) H/O amputation of lesser toe (05/05/17) Social History household members: none Smoking Status: Current some day smoker tobacco type: cigarettes and e-cigarettes alcohol intake: current alcohol intake frequency: holidays/special occasions only substance use type: does not use Vital Signs Vital Signs Vital Signs: 05/15/24 13:27 05/15/24 13:27 Temperature 97 F L Temperature Source Temporal Pulse Rate 62 Respiratory Rate 16 Respiratory Pattern Normal Blood Pressure 104/58 L Blood Pressure Mean 73 Blood Pressure Source Monitor Blood Pressure Position Semi-Fowlers Blood Pressure Location Right Arm Pulse Ox 98 Oxygen Delivery Method Room Air Weight Weight: 216 lb Body Mass Index (BMI) 32.8 Physical Exam Narrative Approximately 9 x 3 cm area of exposed Achilles tendon with braided suture in the wound. No signs of fluid collections or induration/infection around the open wound. Results Lab / Micro Data 05/15/24 14:00 05/15/24 14:00 Labs: Laboratory Results - last 24 hr 05/15/24 13:23: POC Glucose 161 H 05/15/24 14:00: WBC 5.6, RBC 4.24, Hgb 10.9 L, Hct 35.9 L, MCV 84.7, MCH 25.7 L, MCHC 30.4 L, RDW Std Deviation 44.2 H, RDW Coeff of Kami 14.3, Plt Count 260, MPV 9.3, Immature Gran % (Auto) 0.400, Neut % (Auto) 58.6, Lymph % (Auto) 29.2, Mccurtain % (Auto) 8.4, Eos % (Auto) 2.7, Baso % (Auto) 0.7, Absolute Neuts (auto) 3.3, Absolute Lymphs (auto) 1.63, Nucleated RBC % 0 Assessment & Plan Assessment/Plan (1) Wound of left ankle: PLAN: PLAN: I discussed with Dr. Smith this patient's condition after I saw and examined her myself at the wound care center as a consultation. The patient will require new labs including A1c, CMP, CBC, and prealbumin. We are also ordering ABIs. I think at this point it is reasonable to attempt excision of the wound/desiccated tendon with removal of the sutures with Dr. Smith (he is in agreement about doing a joint case where we do this), followed by cultures, vancomycin powder, and washout with irrigating wound VAC. After that I would debride the wound once again and potentially place a dermal substitute like Integra. If that does not work, Dr. Smith may need to remove all of the Achilles tendon and the patient may need to wear a brace permanently, which is another option. I do not think she is a great free flap candidate, and even without the Achilles tendon present, we may have trouble healing the wound. I think it is also reasonable that we refer her to Dr. Araya with vascular once we see the results of the ABIs to see if there is anything he can do to improve blood flow to the lower extremity. I talked to the patient extensively about this plan and how there are no guarantees we will be able to reconstruct the soft tissue over the Achilles tendon. She would like to try. She understands the risks of failure to obtain desired result, infection, damage to surrounding structures, persistent wound healing problems, risk of anesthesia including blood clots and problems with her heart and lungs. She would like to proceed. Plan for debridement and removal of sutures with Dr. Smith and myself on 15 May 2024 as a joint case. I have placed a consultation to vascular as well and we will follow-up the ABIs. INTERVAL H&P PLAN, DATE OF SURGERY: We will proceed with surgery today.
[2024-05-15 14:29] LABS: Anion Gap 4 (5-15); BUN 10 mg/dL (7-18); BUN/Creat Ratio 13.2 RATIO (10-20); Calcium,Total 8.6 mg/dL (8.5-10.1); Chloride 105 mmol/L (98-107); Creatinine, Serum 0.76 mg/dL (0.55-1.02); EST Glomerular Filtration Rate 83 mL/min (>60); Est Glom Filt Rate - Afr Amer 100 mL/min (>60); Estimated Creatinine Clearance 97.55 ml/min; Glucose 178 mg/dL (74-106); Potassium 3.7 mmol/L (3.5-5.1); Sodium Level 141 mmol/L (136-145)
[2024-05-15] MEDS: Clindamycin 900 MG/50 ML BAG 75 MG IV (14:30)
[2024-05-15] MEDS: Vancomycin IV 1,000 MG/20 ML Vial 1000 MG IV (15:00)
[2024-05-15] MEDS: Bupiv/Epi 0.25% 30 ML Vial (15:05)
--- NOTE | 2024-05-15 15:39 | PCM.POST.ANE ---
Anesthesia: Postop Eval I Current Vital Signs Temperature: 97.5 F Pulse Rate: 62 Blood Pressure: 133/62 Respiratory Rate: 14 Pulse Ox: 97 Oxygen Delivery Method: Room Air Assessment Airway patent: Yes Spontaneous unlabored respirations: Yes Mental status: Awake and Calm nausea: No Vomiting: No Anesthesia Complication: No Fluid Hydration Crystalloid volume administer (ml): 800 Total IV fluid infused: 800 Progress Note Anesthesia document: Postop Eval 1 completed: Yes
--- NOTE | 2024-05-15 16:07 | POSTOPAN2_ITS ---
Anesthesia Postop Eval I Sum Postop Eval Completion status Anesthesia document: Postop Eval 1 completed: Yes Anesthesia Postop Eval I Summary Anesthesia Postop Eval I Summary: Anesthesia Postop Eval I: Assessment Summary Airway patent Yes 05/15/24 15:40 SURGICAL SERVICES [email or web address] Spontaneous unlabored Yes 05/15/24 15:40 SURGICAL SERVICES DIRECTOR.[email or web address] respirations Mental status Awake,Calm 05/15/24 15:40 SURGICAL SERVICES [email or web address] nausea No 05/15/24 15:40 SURGICAL SERVICES DIRECTOR.[email or web address] Vomiting No 05/15/24 15:40 SURGICAL SERVICES DIRECTOR.[email or web address] Anesthesia Postop Eval I: Fluid Summary Crystalloid volume administer 800 05/15/24 15:40 SURGICAL SERVICES DIRECTOR.[email or web address] (ml) Colloids volume administered ( ml) Blood Product volume administered (ml) Total IV fluid infused 800 05/15/24 15:40 SURGICAL SERVICES DIRECTOR.[email or web address] Anesthesia Postop Eval I: Summary Notes Anesthesia Complication No 05/15/24 15:40 SURGICAL SERVICES DIRECTOR.[email or web address] Anesthesia Complication Comment: Post-operative progress note Anesthesia: Postop Eval II Evaluation Mental status: Awake and Calm Pain Level: 1 nausea: No Vomiting: No Complications Anesthesia Complication: No
--- NOTE | 2024-05-15 16:07 | PCM.POSTANE2 ---
Anesthesia Postop Eval I Sum Postop Eval Completion status Anesthesia document: Postop Eval 1 completed: Yes Anesthesia Postop Eval I Summary Anesthesia Postop Eval I Summary: Anesthesia Postop Eval I: Assessment Summary Airway patent Yes 05/15/24 15:40 [email or web address] [email or web address] Spontaneous unlabored Yes 05/15/24 15:40 [email or web address] [email or web address] respirations Mental status Awake,Calm 05/15/24 15:40 [email or web address] [email or web address] nausea No 05/15/24 15:40 [email or web address] [email or web address] Vomiting No 05/15/24 15:40 [email or web address] [email or web address] Anesthesia Postop Eval I: Fluid Summary Crystalloid volume administer 800 05/15/24 15:40 [email or web address] [email or web address] (ml) Colloids volume administered ( ml) Blood Product volume administered (ml) Total IV fluid infused 800 05/15/24 15:40 [email or web address] [email or web address] Anesthesia Postop Eval I: Summary Notes Anesthesia Complication No 05/15/24 15:40 [email or web address] [email or web address] Anesthesia Complication Comment: Post-operative progress note Anesthesia: Postop Eval II Evaluation Mental status: Awake and Calm Pain Level: 1 nausea: No Vomiting: No Complications Anesthesia Complication: No
[2024-05-15 17:04] LABS: M R Staph aureus DNA By PCR Negative (Negative); Staph aureus DNA By PCR NEGATIVE (Negative)
--- NOTE | 2024-05-15 17:14 | PCM.OP.BLANK ---
Operative Report Date of Procedure: 05/15/24 Surgery/Procedure Date: 15 May 2024 Incision/Procedure Start Time: 14:30 Incision Close/Procedure End Time: 15:17 PATIENT: Dewey Beltran SURGEON: Victorino Solano MD CO-SURGEON: Zack Smith DPM PRE-OPERATIVE DIAGNOSIS: Left posterior ankle wound over Achilles tendon repair POST-OPERATIVE DIAGNOSIS: Same PROCEDURE PERFORMED: 1) Excision of left posterior ankle wound, including skin and subcutaneous tissue, 8 x 3 cm (CPT: 63068) 2) irrigating wound VAC, vera flow, not disposable, less than 50 cm? (CPT: 98202) OPERATIVE FINDINGS: Healthy appearing Achilles tendon at the base of the wound with healthy appearing surrounding wound bed INDICATIONS: Patient is a 58-year-old female who underwent an Achilles tendon reconstruction with podiatry with loss of soft tissue over the reconstruction and wound breakdown. She continues to use nicotine products (uses a vape pen) and has diabetes and peripheral vascular disease. We have consulted the vascular surgery. Plan today is for podiatry to remove their sutures and debride the Achilles tendon as needed. Of note there was calcaneal osteomyelitis called on imaging; however, after discussion with the podiatry team (Dr. Smith), they do not believe this is calcaneal osteomyelitis, rather it is artifact from their suture anchors. Patient understands risks and benefits of surgery, including failure to obtain the desired result and need for repeat surgeries, as well as risks of anesthesia including . OPERATIVE DETAILS: Patient was correct identified in preoperative holding by Dr. Smith and by myself. I marked the patient's left leg. She was taken back to the operating room where she was administered general anesthesia after timeout was performed. She was flipped in a prone position and care was taken to pad her bony prominences, as well as her breasts, face/eyes appropriately so as to prevent an injury. Her leg was prepped and draped in sterile fashion. We began the procedure with Dr. Smith excising the necrotic portions of the Achilles tendon repair and removing all foreign body suture. Please see his separate dictation for this portion of the procedure. I then took a 10 blade scalpel and excised skin and subcutaneous tissue from the wound edges and took a culture for less than 100 cm? (wound measured 8 x 3 cm) excision of wound. Hemostasis was obtained with Bovie electrocautery and the local block (epinephrine and Marcaine). The patient tolerated the procedure well. 500 cc of Irrisept was then used to irrigate the wound as well as 3 L of normal saline through a pulse lavage. An irrigating wound VAC was applied for a less than 50 cm? irrigating wound VAC not disposable. Anesthesia: General anesthesia in the prone position with 5 cc of 0.25% Marcaine with 1-200,000 epinephrine for local block ASA 3 IV fluids: 500 cc of lactated Ringer's Urine output: Unmeasured, no Song EBL: 5 cc Specimens: Deep soft tissue culture from the base of the wound after debridement POST-OPERATIVE PLAN: Patient will be admitted for monitoring and irrigation and washout with inpatient vera flow wound VAC. Plan will be for return to the OR on Monday, 20 May 2024, for repeat washout debridement and possible dermal substitute placement (Integra). Patient has been admitted to the medicine team for medical management and plastics and podiatry will follow along. Follow-up are vascular surgery consult (I talked to Dr. Araya today about her in the recent ABIs that were performed).
[2024-05-15 17:36] LABS: Bedside Glucose 152 mg/dL (74-106)
[2024-05-15] MEDS: Insulin Lispro 100 UNIT/ML INSULN.PEN SC (20:17)
[2024-05-15 20:37] LABS: Bedside Glucose 259 mg/dL (74-106)
[2024-05-15] MEDS: oxyCODONE 5 MG Tablet PO (21:38)
[2024-05-15] MEDS: Acetaminophen 500 MG Tablet 1000 MG PO (21:38)
--- NOTE | 2024-05-15 21:48 | PCM.CONS.GEN ---
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: (3) Degeneration of Achilles tendon: (4) Diabetes mellitus with diabetic polyneuropathy: QUALIFIERS: Diabetes mellitus care home insulin use: with care home use Diabetes mellitus type: type 2 Qualified Code(s): E11.42 - Type 2 diabetes mellitus with diabetic polyneuropathy; Z79.4 - long term care administrator (current) use of insulin (5) Diabetes mellitus with ulcer of calf: (6) Peripheral vascular disease, unspecified: PLAN: Plan Patient seen and evaluated prior to surgical intervention She is set to undergo Removal of Foreign Body Left Lower Extremity with Debridement of Ulceration to the level of the Musculotendinous junction/Achilles Tendon with me. Following this procedure she will undergo excision of ulceration and debridement of tissue for preparation of wound bed for graft placement and application of Veraflow Irrigating wound vac with Dr. Victorino Solano, Plastic Surgeon and Co-Surgeon for this case at 2:30pm on 05/15/24. Left Lower Extremity: There is a full thickness ulceration to the posterior aspect of the Left Lower extremity with portion of the Achilles tendon visible with exposure of the braided FiberWire suture. There is some desiccation of the visible portion of the Achilles Tendon. There is some fibrotic tissue about the margin of the ulceration. Ulceration site measures 7.6cm x 2.8cm x 0.3cm pre-surgery. No signs of infection. Negative Zayas Test. Ankle ROM is 5 degrees in Dorsiflexion with knee extended without pain or crepitus. Full Ankle ROM with knee flexed. Achilles intact LLE with exposure of portion of tendon with braided suture wire visible. No pain to palpation about the ulceration site or Achilles Tendon consistent with Diabetic Peripheral Polyneuropathy. Pre-operative labs were reviewed prior to surgery from 05/15/24 WBC 5.6; Hbg 10.9; Hct 35.9; Platlet 260 HgbA1c was 6.9% on 05/09/24 Continue IV Abx Wound culture 05/15/24: Staph aureus protein A PCR Negative; MRSA PCR Negative Medicine is following for medical management, they are greatly appreciated. Dr. Solano, Plastic Surgeon is on board and following with plan for Graft application on 05/20/24. Vascular Surgery following Wound Nurse assisting in dressing changes Surgical plan was discussed with patient in detail. She is understanding of the risks and complications listed in surgical dictation and is willing to proceed with surgical intervention for limb salvage. Surgical consent was obtained prior to entering the OR. Operative limb signed prior to entering the OR. Following procedure she is to remain non-weight bearing to the Left Lower Extremity with assistance of walker. She is to keep LLE elevated for post-operative edema control. She will keep irrigating wound vac intact to the surgical site for to optimize field for anticipation of graft with Plastic Surgery. Dr. Smith will continue to follow. Zack Smith Jr., D.P.[facility] [phone] HPI Consult Data Date of Consult: 05/16/24 HPI Narrative Reason for Consultation: Left Lower Extremity Ulceration with Foreign Body. HPI Narrative: REMI TREVINO, is a 58 F who presents to [facility] on 05/15/24 with Left Lower Extremity ulceration with Foreign Body present. She has PMHx of DM type II with peripheral polyneuropathy, peripheral vascular disease, asthma, morbid obesity, HTN, hyperlipidemia and history of prior calcaneal ulceration. She was transferred to my care from another provider following nonhealing ulceration to the plantar aspect of the left heel. She underwent surgical intervention to correct her calcaneal gait with debridement of plantar ulceration of the left heel on 01/26/2024. At the time of surgery she was found to have a tendo Achilles tear to the left lower extremity that resulted in her calcaneal gait. Tendon was debrided and shortening of the tendo Achilles was performed in addition to a flexor hallucis longus (FHL) tendon transfer. 3 weeks later patient did fall placing weight to the foot resulting in a tear of incision site resulting in dehiscence of the surgical site with exposure of the Achilles tendon. She was returned to the OR for debridement on 02/22/2024 and a wound VAC was applied over the ulcerative area. She did undergo PICC line placement and completed 6 weeks of IV antibiotics during her stay in the transitional care unit. Antibiotics were completed and PICC line was removed on 04/04/2024 and patient was transferred home. Patient was assisted in dressing changes with visiting nursing however was lost to follow-up and did no-show first wound care appointment on 05/02/2024. She did present to wound care on 05/09/2024 and due to lack of healing and chronic exposure of the Achilles tendon it was discussed at that time surgical intervention will be required to remove the foreign body braided FiberWire suture to perform a debridement of the Achilles tendon to allow for preparation of the surgical site for acceptance of the graft placement with co-surgeon Dr. Solano, Plastic Surgeon. Patient did present for procedure on 05/15/2024 and was seen and evaluated by both Dr. Solano and myself. She reports she is willing to undergo intervention and medicine has agreed to admit patient following procedure with anticipated stay greater than 3 days prior to her graft placement next week. [facility] Medical History (Updated 05/15/24 @ 22:[address] Zack Smith, ROXANNE) Open wound Current use of insulin Post-menopausal Hiatal hernia Back pain due to injury Osteoporosis Sleep apnea Insulin dependent diabetes mellitus Easy bruising Restless legs Difficulty swallowing Tachycardia Smoker Wears dentures Wears glasses Anxiety Iron deficiency Back pain Dietary restriction GERD (gastroesophageal reflux disease) Shortness of breath Asthma CPAP (continuous positive airway pressure) dependence Leg cramping History of pain when walking Edema Cardiology follow-up encounter History of stress test Normal echocardiogram Hypertension Difficulty balancing when standing Asthma Arthritis Fibromyalgia Multinodular thyroid Hypothyroidism Essential (primary) hypertension Hypergammaglobulinemia Hyperlipemia Dermatitis Depression PAD (peripheral artery disease) Other specified peripheral vascular diseases Hammertoe of left foot Skin ulcer of right foot including toes with fat layer exposed Osteomyelitis of toe Morbid obesity with BMI of 40.0-44.9, adult Diabetes type 2, uncontrolled Venous stasis dermatitis of both lower extremities Home Medications ?Medication ?Instructions ?Recorded ?Last Taken ?Type omeprazole 40 mg capsule,delayed 40 mg PO DAILY ACID REFLUX 10/18/18 05/14/24 History release paroxetine HCl 40 mg tablet 40 mg PO DAILY DEPRESSION 10/29/19 05/14/24 History pregabalin 150 mg capsule 150 mg PO TID NERVE PAIN 10/29/19 05/14/24 History aspirin 81 mg tablet,delayed 81 mg PO DAILY HEART HEALTH 07/21/20 05/08/24 History release (Adult Low Dose Aspirin) metoprolol succinate 200 mg 200 mg PO DAILY BLOOD PRESSURE 07/21/20 05/14/24 History tablet,extended release 24 hr rosuvastatin 40 mg tablet (Crestor) 40 mg PO DAILY CHOLESTEROL 08/26/22 05/14/24 History pen needle, diabetic 32 gauge x #100 ea 02/13/23 Unknown Rx (BD Ultra-Fine Catalina Pen Needle) dapagliflozin propanediol 10 mg 10 mg PO DAILY DIABETES 03/01/23 05/14/24 History tablet (Farxiga) losartan 100 mg tablet 100 mg PO DAILY BLOOD PRESSURE 03/01/23 05/14/24 History blood sugar diagnostic (True #100 ea 03/24/23 Unknown Rx Metrix Glucose Test Strip) glimepiride 4 mg tablet 4 mg PO DAILY diabetes #30 tabs 04/10/23 05/14/24 Rx insulin aspart 10 unit subcut TID diabetes #9 mL 05/29/23 02/26/24 Rx (niacinamide)(U-100) 100 unit/mL(3 mL) subcutaneous pen (Fiasp FlexTouch U-100 Insulin) albuterol sulfate 90 mcg/actuation 1 puff inhalation Q6H PRN PRN 01/19/24 05/12/24 History aerosol inhaler shortness of breath or wheezing tirzepatide 7.5 mg/0.5 mL 7.5 mg subcut QWEEK diabetes 01/19/24 04/29/24 History subcutaneous pen injector (Rex) celecoxib 200 mg capsule 200 mg PO DAILY pain 02/21/24 05/14/24 History doxepin 25 mg capsule 25 mg PO QHS sleep 02/21/24 05/14/24 History levothyroxine 150 mcg tablet 150 mcg PO DAILY hypothyroid 02/21/24 05/14/24 History montelukast 10 mg tablet 10 mg PO DAILY allergies/asthma 02/21/24 05/14/24 History potassium chloride 20 mEq 20 meq PO DAILY potassium 02/21/24 05/14/24 History tablet,extended supplement release(part/cryst) (Klor-Con M) trazodone 150 mg tablet 150 mg PO QHS sleep 02/21/24 05/14/24 History acetaminophen 500 mg tablet 1,000 mg (2 x 500 mg) PO Q6H PRN 04/02/24 Unknown Rx PRN Pain Score 1-3 #0 tabs arginine 7 gram-glutam 7 1 packet PO BIDCM 30 days #60 ea 04/02/24 Unknown Rx gram-CaHMB 1.5 coew-cqnqk-lc-min oral pwd pkt (Drew (with collagen)) oxycodone 5 mg tablet 5 mg PO Q4H PRN PRN Pain Score 04/02/24 05/14/24 Rx 6-10 Or Pre Pt/Ot 7 days #42 tabs vitamin B complex (Vitamins B 1 cap PO DAILY 05/15/24 05/14/24 History Complex capsule) Allergy/AdvReac Type Severity Reaction Status Date / Time piperacillin (From Zosyn) Allergy Severe Anaphylaxis Verified 05/15/24 13:21 tazobactam (From Zosyn) Allergy Severe Anaphylaxis Verified 05/15/24 13:21 sulfamethoxazole (From Allergy Unknown Anaphylaxis Verified 05/15/24 13:21 Bactrim) trimethoprim (From Bactrim) Allergy Unknown Anaphylaxis Verified 05/15/24 13:21 latex Allergy Rash Verified 05/15/24 13:21 pyrethrins Allergy Anaphylaxis Verified 05/15/24 13:21 tetanus and diphtheria Allergy Anaphylaxis Verified 05/15/24 13:21 toxoids (Tetanus&Diphtheria Toxoid) Family History Mother Diabetes Dementia Father Diabetes Myocardial infarction Surgical History Hx of toe surgery History of partial ray amputation of fifth toe of right foot Hx of total knee arthroplasty History of nasal septoplasty History of cholecystectomy History of thyroidectomy H/O arthroscopic knee surgery (11/2019) H/O amputation of lesser toe (05/05/17) Social History household members: none Smoking Status: Current some day smoker tobacco type: e-cigarettes alcohol intake: current alcohol intake frequency: holidays/special occasions only substance use type: does not use ROS Constitutional Constitutional: Denies fatigue, fever(s), malaise or weakness Eyes Eyes: Denies diplopia or loss of vision ENT HEENT: Denies dysphagia, rhinorrhea or sore throat Cardiovascular Cardiovascular: Denies chest pain, claudication or palpitations Respiratory/Chest Respiratory/Chest: Denies cough, dyspnea or shortness of breath at rest Gastrointestinal Gastrointestinal: Denies abdominal pain, constipation, diarrhea, nausea or vomiting Genitourinary Genitourinary: Denies dysuria, hematuria, urinary frequency or urinary urgency Musculoskeletal Musculoskeletal: Denies joint pain, joint stiffness or joint swelling Integumentary Integumentary: Denies lesions, pruritus or rash Neurologic Neurologic: Denies dizziness, numbness or seizures Psychiatric Psychiatric: Reports depression Endocrine Endocrinology: Denies cold intolerance, heat intolerance, polydipsia, polyphagia or polyuria Hematologic/Lymphatic Hematologic/Lymphatic: Denies easy bleeding or easy bruising Allergic/Immunologic Allergic/Immunologic: Denies urticaria or wheezing Physical Exam Const alert, oriented x3 and no apparent distress General Appearance: cooperative HEENT normocephalic Eyes Eyes Narrative: Wears glasses General Eye: normal appearance of both eyes Neck General: normal visual inspection Lymph Lymphatic: no lymphadenopathy noted and no lymphedema noted Resp normal respiratory effort Cardio regular rate and regular rhythm Extremity no joint enlargement and no calf tenderness Extremity Narrative: Left Lower Extremity: Vascular: DP and PT pusles palpable. CFT < 5 seconds to digits of the foot. Normal temperature gradient. Hair growth is absent to digits. Neurologic: Protective sensation absent to foot consistent with Diabetic Peripheral Polyneuropathy. Gross sensation intact Musculoskeletal: Muscle strength 5/5 and age-appropriate. Negative Zayas Test. Ankle ROM is 5 degrees in Dorsiflexion with knee extended without pain or crepitus. Full Ankle ROM with knee flexed. Achilles intact LLE with exposure of portion of tendon with braided suture wire visible. No pain to palpation about the ulceration site or Achilles Tendon consistent with Diabetic Peripheral Polyneuropathy. Dermatologic: There is a full thickness ulceration to the posterior aspect of the Left Lower extremity with portion of the Achilles tendon visible with exposure of the braided FiberWire suture. There is some desiccation of the visible portion of the Achilles Tendon. There is some fibrotic tissue about the margin of the ulceration. Ulceration site measures 7.6cm x 2.8cm x 0.3cm pre-surgery. No signs of infection. Skin no rashes or lesions noted, skin turgor normal and no jaundice Neuro moves all extremities Lab / Micro Data 05/16/24 06:21 05/16/24 06:21 Labs: Laboratory Results - last 24 hr 05/15/24 13:23: POC Glucose 161 H 05/15/24 14:00: WBC 5.6, RBC 4.24, Hgb 10.9 L, Hct 35.9 L, MCV 84.7, MCH 25.7 L, MCHC 30.4 L, RDW Std Deviation 44.2 H, RDW Coeff of Kami 14.3, Plt Count 260, MPV 9.3, Immature Gran % (Auto) 0.400, Neut % (Auto) 58.6, Lymph % (Auto) 29.2, Cavalier % (Auto) 8.4, Eos % (Auto) 2.7, Baso % (Auto) 0.7, Absolute Neuts (auto) 3.3, Absolute Lymphs (auto) 1.63, Nucleated RBC % 0, Sodium 141, Potassium 3.7, Chloride 105, Carbon Dioxide 32.0, Anion Gap 4 L, BUN 10, Creatinine 0.76, Estim Creat Clear Calc 97.55, Est GFR (MDRD) Af Amer 100, Est GFR (MDRD) Non-Af 83, BUN/Creatinine Ratio 13.2, Glucose 178 H, Calcium 8.6 05/15/24 17:18: POC Glucose 152 H 05/15/24 20:13: POC Glucose 259 H 05/15/24 : S.aureus Protein A PCR NEGATIVE, MRSA (PCR) Negative
[2024-05-15] MEDS: Pregabalin 75 MG Capsule 150 MG PO (23:06)
[2024-05-15] MEDS: Doxepin Hcl 25 MG Capsule PO (23:07)
[2024-05-15] MEDS: Atorvastatin Calcium 80 MG Tablet PO (23:07)
[2024-05-15] MEDS: traZODone 100 MG Tablet 150 MG PO (23:07)
[2024-05-15] MEDS: Menthol/Lanolin/Calamine/Znox 113 GM Tube 1 APPLIC TOPICAL (23:10)
[2024-05-16 02:56] VITALS: BP 128/79; PULSE 80; RESP 16; TEMP 36.8; O2SAT 97
[2024-05-16] MEDS: Pregabalin 75 MG Capsule 150 MG PO ×3 (06:11→21:16)
[2024-05-16] MEDS: Insulin Lispro 100 UNIT/ML INSULN.PEN SC ×4 (06:12→21:08)
[2024-05-16 06:33] LABS: Bedside Glucose 223 mg/dL (74-106)
[2024-05-16 07:07] LABS: Absolute Lymphocyte Count 1.04 X10^3/uL (0.83-4.51); Absolute Neutrophil Count 6.6 X10^3/uL (2.0-7.7); Basophil# 0.01 X10^3/uL; Basophil% 0.1 % (0-1); Eosinophil# 0.01 X10^3/uL; Eosinophils% 0.1 % (0-5); Hematocrit 35.5 % (37-47); Hemoglobin 11.1 g/dL (12.0-15.0); Lymphocyte # 1.04 X10^3/ul (0.83-4.51); Lymphocyte % 12.9 % (19-41); Mean Corp Hgb Conc 31.3 g/dL (32-36); Mean Corpuscular Hgb 25.9 pg (27.0-32.0); Mean Corpuscular Volume 82.9 fL (81-99); Mean Platelet Vol. 9.4 fl (6.2-12.0); Monocyte# 0.38 X10^3/uL; Monocyte% 4.7 % (0-10); NRBC Flagged by Analyzer 0 % (0-5); Neutrophil # 6.61 X10^3/uL (2.7-7.7); Neutrophil % 81.7 % (47-70); Platelet Count 281 K/mm3 (150-450); RBC Distribution Width CV 14.1 % (11.6-14.6); RBC Distribution Width SD 42.6 fl (35.1-43.9); Red Blood Count 4.28 M/mm3 (4.2-5.4); White Blood Count 8.1 K/mm3 (4.4-11.0)
--- NOTE | 2024-05-16 07:29 | PCM.PN.HOSP ---
Reason for Visit Reason for Visit: Diagnoses Type 2 diabetes mellitus with other skin ulcer (05/15/24) Type 2 diabetes mellitus with hyperglycemia (05/15/24) Essential (primary) hypertension (05/15/24) Non-pressure chronic ulcer of unspecified calf with unspecified severity (05/15/24) Unspecified open wound, left ankle, initial encounter (05/15/24) Subjective Subjective Patient is a 58-year-old female admitted with left posterior ankle wound over Achilles tendon, underwent wound debridement with application of wound VAC by plastic surgery and podiatry subsequently admitted to the medical service Objective Data Objective Data Vital Signs: Vital Signs Temp Pulse Resp BP Pulse Ox O2 Del Method O2 Flow Rate 98.2 F 80 16 128/79 H 97 Nasal Cannula 2 05/16/24 02:56 05/16/24 02:56 05/16/24 02:56 05/16/24 02:56 05/16/24 02:56 05/16/24 02:56 05/16/24 02:56 Oxygen Flow Rate (L/min) 2 Oxygen Delivery Method Nasal Cannula Weight: 104.3 kg Body Mass Index (BMI) 34.9 Intake & Output: Intake and Output for Last 24 Hours 05/14/24 05/15/24 05/16/24 23:59 23:59 23:59 Intake Total 1200 / 1200 1000 / 1000 Output Total 1050 / 1050 700 / 700 Balance 150 / 150 300 / 300 Lab / Micro Data 05/16/24 06:21 05/15/24 14:00 Labs: Laboratory Results - last 24 hr 05/15/24 13:23: POC Glucose 161 H 05/15/24 14:00: WBC 5.6, RBC 4.24, Hgb 10.9 L, Hct 35.9 L, MCV 84.7, MCH 25.7 L, MCHC 30.4 L, RDW Std Deviation 44.2 H, RDW Coeff of Akmi 14.3, Plt Count 260, MPV 9.3, Immature Gran % (Auto) 0.400, Neut % (Auto) 58.6, Lymph % (Auto) 29.2, Terrell % (Auto) 8.4, Eos % (Auto) 2.7, Baso % (Auto) 0.7, Absolute Neuts (auto) 3.3, Absolute Lymphs (auto) 1.63, Nucleated RBC % 0, Sodium 141, Potassium 3.7, Chloride 105, Carbon Dioxide 32.0, Anion Gap 4 L, BUN 10, Creatinine 0.76, Estim Creat Clear Calc 97.55, Est GFR (MDRD) Af Amer 100, Est GFR (MDRD) Non-Af 83, BUN/Creatinine Ratio 13.2, Glucose 178 H, Calcium 8.6 05/15/24 17:18: POC Glucose 152 H 05/15/24 20:13: POC Glucose 259 H 05/15/24 : S.aureus Protein A PCR NEGATIVE, MRSA (PCR) Negative 05/16/24 06:10: POC Glucose 223 H 05/16/24 06:21: WBC 8.1, RBC 4.28, Hgb 11.1 L, Hct 35.5 L, MCV 82.9, MCH 25.9 L, MCHC 31.3 L, RDW Std Deviation 42.6, RDW Coeff of Kami 14.1, Plt Count 281, MPV 9.4, Immature Gran % (Auto) 0.500, Neut % (Auto) 81.7 H, Lymph % (Auto) 12.9 L, Terrell % (Auto) 4.7, Eos % (Auto) 0.1, Baso % (Auto) 0.1, Absolute Neuts (auto) 6.6, Absolute Lymphs (auto) 1.04, Nucleated RBC % 0 Physical Exam Narrative GENERAL: cooperative HEENT: Atraumatic; normocephalic EYES; Anicteric, Normal Conjunctiva NECK; supple, normal thyroid, RESPIRATORY: Diminished to auscultation CARDIOVASCULAR: Regular S1 S2, GI: soft, normoactive bowel sounds, : No Renal angle tenderness; EXTREMITIES: No edema, no clubbing, MUSCULOSKELETAL: Left ankle in surgical dressing with wound VAC in place NEURO: Awake; no lateralizing signs. SKIN: No Rash PSYCH; Flat affect Assessment & Plan Assessment/Plan (1) Diabetes mellitus with ulcer of calf: (2) Wound of left ankle: (3) Essential (primary) hypertension: (4) Type 2 diabetes mellitus with hyperglycemia: PLAN: Plan Patient is a 58-year-old female admitted with left posterior ankle wound over Achilles tendon, underwent wound debridement with application of wound VAC by plastic surgery and podiatry subsequently admitted to the medical service Repair 1. Left posterior ankle wound over Achilles tendon, Underwent wound debridement with application of wound VAC by plastic surgery and podiatry on 05/15/2024 subsequently admitted to the medical service 2. Diabetes mellitus type II -patient's oral hypoglycemics held. Placed on long acting insulin, Accu-Cheks a.c. and at bedtime and covered with sliding scale insulin 3. Hypertension ? Blood pressure controlled, home medications continued with dose adjustment as needed 4. Hypothyroidism ? Patient is on levothyroxine home dose continued 5. Dyslipidemia 6. Class II obesity with BMI of 35 ? Complicating care weight loss advised 7. Anemia ? Secondary to chronic disorder monitoring H&H and transfuse if patient becomes symptomatic or hemoglobin falls below 7 8. Tobacco dependence ? Counseled on cessation, offered nicotine patch for tobacco cravings 9. DVT prophylaxis ? On enoxaparin Time spent in the patient's overall evaluation,decision-making process, review of diagnostic data, adjustment of management, discussion with other providers, nursing nursing and ancillary staff involved in patient's care documentation, 50 minutes Charges/Coding Visit Charges Inpatient E&M: 35692 [facility] L3
[2024-05-16 08:30] LABS: Anion Gap 6 (5-15); BUN 14 mg/dL (7-18); BUN/Creat Ratio 17.8 RATIO (10-20); Calcium,Total 8.5 mg/dL (8.5-10.1); Chloride 102 mmol/L (98-107); Creatinine, Serum 0.78 mg/dL (0.55-1.02); EST Glomerular Filtration Rate 80 mL/min (>60); Est Glom Filt Rate - Afr Amer 96 mL/min (>60); Estimated Creatinine Clearance 98.15 ml/min; Glucose 232 mg/dL (74-106); Potassium 4.2 mmol/L (3.5-5.1); Sodium Level 137 mmol/L (136-145)
[2024-05-16 08:56] VITALS: BP 125/65; PULSE 68; RESP 18; TEMP 36.4; O2SAT 98
[2024-05-16] MEDS: Glimepiride 4 MG Tablet PO (09:05)
[2024-05-16] MEDS: Aspirin E.C. 81 MG Tablet PO (09:05)
[2024-05-16] MEDS: Potassium Chloride Oral Tablet 20 MEQ PO (09:06)
[2024-05-16] MEDS: Menthol/Lanolin/Calamine/Znox 113 GM Tube 1 APPLIC TOPICAL ×2 (09:06→21:10)
[2024-05-16] MEDS: Enoxaparin 40 MG/0.4 ML Syringe SC (09:07)
[2024-05-16] MEDS: Celecoxib 200 MG Capsule PO (09:07)
[2024-05-16] MEDS: Losartan Potassium 100 MG Tablet PO (09:07)
[2024-05-16] MEDS: Paroxetine 20 MG Tablet 40 MG PO (09:08)
[2024-05-16] MEDS: Pantoprazole Sodium 40 MG Tablet PO (09:08)
[2024-05-16] MEDS: Montelukast 10 MG Tablet PO (09:08)
[2024-05-16] MEDS: Glucerna Shake 120 ML LIQUID PO ×3 (09:15→16:37)
[2024-05-16 09:17] VITALS: BP 125/65; PULSE 68
[2024-05-16] MEDS: Metoprolol(XL)Succ 200 MG Tablet PO (09:17)
[2024-05-16 09:30] VITALS: O2SAT 99
--- NOTE | 2024-05-16 09:41 | PN.SURG_ITS ---
Subjective Subjective I saw and examined the patient this morning She reports her pain is controlled and she has been elevating her left lower extremity. The VAC has been working. Objective Data Objective Data Vital Signs: Vital Signs Temp Pulse Resp BP Pulse Ox O2 Del Method O2 Flow Rate 97.6 F L 68 18 125/65 H 98 Nasal Cannula 2 05/16/24 08:56 05/16/24 09:17 05/16/24 08:56 05/16/24 09:17 05/16/24 08:56 05/16/24 08:57 05/16/24 08:57 Oxygen Flow Rate (L/min) 2 Oxygen Delivery Method Nasal Cannula Weight: 229 lb 15.074 oz Body Mass Index (BMI) 34.9 Intake & Output: Intake and Output for Last 24 Hours 05/14/24 05/15/24 05/16/24 23:59 23:59 23:59 Intake Total 1200 / 1200 1000 / 1000 Output Total 1050 / 1050 700 / 700 Balance 150 / 150 300 / 300 Lab / Micro Data 05/16/24 06:21 05/16/24 06:21 Labs: Laboratory Results - last 24 hr 05/15/24 13:23: POC Glucose 161 H 05/15/24 14:00: WBC 5.6, RBC 4.24, Hgb 10.9 L, Hct 35.9 L, MCV 84.7, MCH 25.7 L, MCHC 30.4 L, RDW Std Deviation 44.2 H, RDW Coeff of Kami 14.3, Plt Count 260, MPV 9.3, Immature Gran % (Auto) 0.400, Neut % (Auto) 58.6, Lymph % (Auto) 29.2, [place] % (Auto) 8.4, Eos % (Auto) 2.7, Baso % (Auto) 0.7, Absolute Neuts (auto) 3.3, Absolute Lymphs (auto) 1.63, Nucleated RBC % 0, Sodium 141, Potassium 3.7, Chloride 105, Carbon Dioxide 32.0, Anion Gap 4 L, BUN 10, Creatinine 0.76, Estim Creat Clear Calc 97.55, Est GFR (MDRD) Af Amer 100, Est GFR (MDRD) Non-Af 83, BUN/Creatinine Ratio 13.2, Glucose 178 H, Calcium 8.6 09/04/24 17:18: POC Glucose 152 H 05/15/24 20:13: POC Glucose 259 H 05/15/24 : S.aureus Protein A PCR NEGATIVE, MRSA (PCR) Negative 05/16/24 06:10: POC Glucose 223 H 05/16/24 06:21: WBC 8.1, RBC 4.28, Hgb 11.1 L, Hct 35.5 L, MCV 82.9, MCH 25.9 L, MCHC 31.3 L, RDW Std Deviation 42.6, RDW Coeff of Kami 14.1, Plt Count 281, MPV 9.4, Immature Gran % (Auto) 0.500, Neut % (Auto) 81.7 H, Lymph % (Auto) 12.9 L, [place] % (Auto) 4.7, Eos % (Auto) 0.1, Baso % (Auto) 0.1, Absolute Neuts (auto) 6.6, Absolute Lymphs (auto) 1.04, Nucleated RBC % 0, Sodium 137, Potassium 4.2, Chloride 102, Carbon Dioxide 29.0, Anion Gap 6, BUN 14, Creatinine 0.78, Estim Creat Clear Calc 98.15, Est GFR (MDRD) Af Amer 96, Est GFR (MDRD) Non-Af 80, BUN/Creatinine Ratio 17.8, Glucose 232 H, Calcium 8.5 Physical Exam Narrative Left lower extremity The VAC is holding suction over the left Achilles no pressure points her left leg is elevated and no pressure over the Achilles There is no blood in the VAC, just serosanguineous fluid from the irrigations. Distal foot is warm and well-perfused. Assessment & Plan Assessment/Plan (1) Wound of left ankle: PLAN: Continue irrigating wound VAC until Monday, 20 May 2024, with plan to return to the OR for VAC removal and Integra placement on this date (okay for discharge after Monday's surgery with home wound VAC). I have talked to the wound care team about ordering a home wound VAC In the meantime I agree with vascular surgery consultation to see if we any improvement in the left lower extremity blood flow. Charges/Coding Procedures Integumentary [id number]: [id number] Global Visit
--- NOTE | 2024-05-16 10:48 | CASEMGMT ---
SID MENON Assessment: Face to Face with pt for initial transition planning/care coordination assessment. SID MENON introduced self and role at [facility], pt voices understanding and consents to assessment. Pt is A&O x4 and answers all questions appropriately at this time. Care providers, pharmacy, and demographics verified/updated. Admitting Dx: Chronic L diabetic ulcer Strata Score: 2 PCP:Sharath Specialists:Luis, pod; [facility], cardio Preferred Pharmacy: [facility] [employer] [facility] [place] Prescription Benefit: yes LNOK: Bambi Arriaza dtr Living Arrangements: Pt lives alone in a ground level apt with no steps to enter. Pt reports she was I in ADL/IADLs prior to surgery. Pt denies concerns at home. Transportation: Pt drives self and denies concerns with transportation. Pt dtrs are able to provide transportation also. DME:BGM with sufficient supply of strips and lancets, CGM with sufficient supply of sensors, Insulin of sufficient supply and needles, CPAP but does not use; to schedule sleep study, cane, FWW, w/c, shower chair HHC/SNF: Pt is active with [facility] SN and SW; Pt has been to [facility] and [facility] in the past. Pt states no concerns with going home at time of dc. Pt states she can maintain non wtbearing with her w/c. Pt wants to resume with [facility] and denies need for list of other options of agencies. Pt to go back to OR on Monday with plans of dc after. Pt states no further concerns/needs. CM to follow. Advised pt to ask CM if any further question/concerns/needs arise, voices understanding. Pt Goal: Home with [facility] resuming Plan: Home with [facility] resuming pending course of hospitalization, therapy and OR Monday JESSICA Alonso at [facility] to make aware that current plan is to dc on Monday. Mark LAU CM
[2024-05-16 11:39] LABS: Bedside Glucose 264 mg/dL (74-106)
[2024-05-16 14:09] VITALS: BP 136/70; PULSE 66; RESP 18; TEMP 36.3; O2SAT 99
[2024-05-16] MEDS: oxyCODONE 5 MG Tablet PO ×2 (14:18→21:16)
[2024-05-16] MEDS: Vitamin B Comp W-C Capsule 1 CAP PO (14:18)
[2024-05-16] MEDS: Acetaminophen 500 MG Tablet 1000 MG PO ×2 (14:19→21:17)
[2024-05-16 16:21] LABS: Bedside Glucose 253 mg/dL (74-106)
[2024-05-16 21:06] VITALS: BP 130/63; PULSE 68; RESP 18; TEMP 37.1; O2SAT 94
[2024-05-16] MEDS: 0.9% Saline Lock 10 ML Syringe IV (21:08)
[2024-05-16] MEDS: traZODone 100 MG Tablet 150 MG PO (21:17)
[2024-05-16] MEDS: Doxepin Hcl 25 MG Capsule PO (21:18)
[2024-05-16] MEDS: Atorvastatin Calcium 80 MG Tablet PO (21:19)
[2024-05-16 21:38] LABS: Bedside Glucose 322 mg/dL (74-106)
[2024-05-17 06:31] VITALS: BP 130/66; PULSE 61; RESP 18; TEMP 36.4; O2SAT 93
[2024-05-17] MEDS: Pregabalin 75 MG Capsule 150 MG PO ×3 (06:35→23:54)
[2024-05-17] MEDS: Insulin Lispro 100 UNIT/ML INSULN.PEN SC ×4 (06:35→23:48)
[2024-05-17 06:56] LABS: Bedside Glucose 231 mg/dL (74-106)
--- NOTE | 2024-05-17 07:24 | WOUNDNOTE ---
Wound VAC remains in place to the left Achilles area. Good seal noted at 125mmHg. Plan is for VAC dressing to remain in place until Monday.
--- NOTE | 2024-05-17 07:30 | PCM.PN.SRG ---
Subjective Subjective Doing well. Pain controlled. Objective Data Objective Data Vital Signs: Vital Signs Temp Pulse Resp BP Pulse Ox O2 Del Method O2 Flow Rate 97.5 F L 61 18 130/66 H 93 Room Air 2 05/17/24 06:31 05/17/24 06:31 05/17/24 06:31 05/17/24 06:31 05/17/24 06:31 05/17/24 06:31 05/16/24 08:57 Oxygen Flow Rate (L/min) 2 Oxygen Delivery Method Room Air Weight: 229 lb 15.074 oz Body Mass Index (BMI) 34.9 Intake & Output: Intake and Output for Last 24 Hours 05/15/24 05/16/24 05/17/24 23:59 23:59 23:59 Intake Total 1200 / 1200 1400 / 1400 200 / 200 Output Total 1050 / 1050 3900 / 3900 500 / 500 Balance 150 / 150 -2500 / -2500 -300 / -300 Lab / Micro Data 05/16/24 06:21 05/16/24 06:21 Labs: Laboratory Results - last 24 hr 05/16/24 06:21: Sodium 137, Potassium 4.2, Chloride 102, Carbon Dioxide 29.0, Anion Gap 6, BUN 14, Creatinine 0.78, Estim Creat Clear Calc 98.15, Est GFR (MDRD) Af Amer 96, Est GFR (MDRD) Non-Af 80, BUN/Creatinine Ratio 17.8, Glucose 232 H, Calcium 8.5 05/16/24 11:19: POC Glucose 264 H 05/16/24 16:04: POC Glucose 253 H 05/16/24 21:04: POC Glucose 322 H 05/17/24 06:34: POC Glucose 231 H Micro: Microbiology 05/15/24 Unknown Tissue - Ankle Gram Stain - Final Physical Exam Narrative Dressing removed over the VAC Left lower extremity VeraFlow VAC holding suction, no issues. No blood in the VAC. Heal and foot are appropriately offloaded. Assessment & Plan Assessment/Plan (1) Wound of left ankle: PLAN: Continue irrigating wound VAC until Monday, 20 May 2024, with plan to return to the OR for VAC removal and Integra placement on this date (okay for discharge after Monday's surgery with home wound VAC). I have talked to the wound care team about ordering a home wound VAC Vascular consultation performed, no need for intervention (good flow for healing the wound). I spoke with Dr. Araya myself. OK for DVT prophylaxis No need to hold for surgery either
--- NOTE | 2024-05-17 07:45 | PN.HOSP_ITS ---
Reason for Visit Reason for Visit: Diagnoses Type 2 diabetes mellitus with diabetic polyneuropathy (05/15/24) Type 2 diabetes mellitus with other skin ulcer (05/15/24) Type 2 diabetes mellitus with hyperglycemia (05/15/24) Essential (primary) hypertension (05/15/24) Peripheral vascular disease, unspecified (05/15/24) Non-pressure chronic ulcer of unspecified calf with unspecified severity (05/15/24) Non-pressure chronic ulcer of left calf with necrosis of muscle (05/15/24) Other specified disorders of synovium and tendon, other site (05/15/24) Superficial foreign body, left lower leg, initial encounter (05/15/24) Unspecified open wound, left ankle, initial encounter (05/15/24) 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 Objective Data Objective Data Vital Signs: Vital Signs Temp Pulse Resp BP Pulse Ox O2 Del Method O2 Flow Rate 97.5 F L 61 18 130/66 H 93 Room Air 2 05/17/24 06:31 05/17/24 06:31 05/17/24 06:31 05/17/24 06:31 05/17/24 06:31 05/17/24 06:31 05/16/24 08:57 Oxygen Flow Rate (L/min) 2 Oxygen Delivery Method Room Air Weight: 104.3 kg Body Mass Index (BMI) 34.9 Intake & Output: Intake and Output for Last 24 Hours 05/15/24 05/16/24 05/17/24 23:59 23:59 23:59 Intake Total 1200 / 1200 1400 / 1400 200 / 200 Output Total 1050 / 1050 3900 / 3900 500 / 500 Balance 150 / 150 -2500 / -2500 -300 / -300 Lab / Micro Data 05/16/24 06:21 05/16/24 06:21 Labs: Laboratory Results - last 24 hr 05/16/24 06:21: Sodium 137, Potassium 4.2, Chloride 102, Carbon Dioxide 29.0, Anion Gap 6, BUN 14, Creatinine 0.78, Estim Creat Clear Calc 98.15, Est GFR (MDRD) Af Amer 96, Est GFR (MDRD) Non-Af 80, BUN/Creatinine Ratio 17.8, Glucose 232 H, Calcium 8.5 05/16/24 11:19: POC Glucose 264 H 05/16/24 16:04: POC Glucose 253 H 05/16/24 21:04: POC Glucose 322 H 05/17/24 06:34: POC Glucose 231 H Micro: Microbiology 05/15/24 Unknown Tissue - Ankle Gram Stain - Final Physical Exam Narrative GENERAL: cooperative HEENT: Atraumatic; normocephalic EYES; Anicteric, Normal Conjunctiva NECK; supple, normal thyroid, RESPIRATORY: Diminished to auscultation CARDIOVASCULAR: Regular S1 S2, GI: soft, normoactive bowel sounds, : No Renal angle tenderness; EXTREMITIES: No edema, no clubbing, MUSCULOSKELETAL: Left ankle in surgical dressing with wound VAC in place NEURO: Awake; no lateralizing signs. SKIN: No Rash PSYCH; Flat affect Assessment & Plan Assessment/Plan (1) Diabetes mellitus with ulcer of calf: (2) Wound of left ankle: (3) Essential (primary) hypertension: (4) Type 2 diabetes mellitus with hyperglycemia: PLAN: Plan Patient is a 58-year-old female admitted with left posterior ankle wound over Achilles tendon, underwent wound debridement with application of wound VAC by plastic surgery and podiatry subsequently admitted to the medical service Repair 1. Left posterior ankle wound over Achilles tendon, Underwent wound debridement with application of wound VAC by plastic surgery and podiatry on 05/15/2024 subsequently admitted to the medical service ? 05/17/2024; Case was discussed with Dr. Solano with plastic surgery recommended continuing with irrigating wound VAC until Monday, 20 May 2024, with plan to return to the OR for VAC removal and Integra placement on this date 2. Diabetes mellitus type II -patient's oral hypoglycemics held. Placed on long acting insulin, Accu-Cheks a.c. and at bedtime and covered with sliding scale insulin 3. Hypertension ? Blood pressure controlled, home medications continued with dose adjustment as needed 4. Hypothyroidism ? Patient is on levothyroxine home dose continued 5. Dyslipidemia 6. Class II obesity with BMI of 35 ? Complicating care weight loss advised 7. Anemia ? Secondary to chronic disorder monitoring H&H and transfuse if patient becomes symptomatic or hemoglobin falls below 7 8. Tobacco dependence ? Counseled on cessation, offered nicotine patch for tobacco cravings 9. DVT prophylaxis ? On enoxaparin Time spent in the patient's overall evaluation,decision-making process, review of diagnostic data, adjustment of management, discussion with other providers, nursing nursing and ancillary staff involved in patient's care documentation, 40 minutes Charges/Coding Visit Charges Inpatient E&M: 52831 Subs Hosp L2
[2024-05-17 08:11] LABS: Absolute Lymphocyte Count 2.84 X10^3/uL (0.83-4.51); Basophil# 0.04 X10^3/uL; Basophil% 0.6 % (0-1); Eosinophil# 0.19 X10^3/uL; Eosinophils% 2.9 % (0-5); Hematocrit 36.8 % (37-47); Hemoglobin 11.1 g/dL (12.0-15.0); Lymphocyte # 2.84 X10^3/ul (0.83-4.51); Lymphocyte % 43.2 % (19-41); Mean Corp Hgb Conc 30.2 g/dL (32-36); Mean Corpuscular Hgb 25.6 pg (27.0-32.0); Mean Corpuscular Volume 84.8 fL (81-99); Mean Platelet Vol. 9.6 fl (6.2-12.0); Monocyte# 0.53 X10^3/uL; Monocyte% 8.1 % (0-10); NRBC Flagged by Analyzer 0 % (0-5); Neutrophil # 2.95 X10^3/uL (2.7-7.7); Neutrophil % 44.7 % (47-70); Platelet Count 262 K/mm3 (150-450); RBC Distribution Width CV 14.4 % (11.6-14.6); RBC Distribution Width SD 44.2 fl (35.1-43.9); Red Blood Count 4.34 M/mm3 (4.2-5.4); White Blood Count 6.6 K/mm3 (4.4-11.0)
[2024-05-17 08:28] VITALS: BP 126/60; PULSE 50; RESP 18; TEMP 36.4; O2SAT 93
[2024-05-17 08:32] VITALS: PULSE 50
[2024-05-17] MEDS: oxyCODONE 5 MG Tablet PO (08:43)
[2024-05-17] MEDS: Enoxaparin 40 MG/0.4 ML Syringe SC (08:43)
[2024-05-17] MEDS: Glimepiride 4 MG Tablet PO (08:43)
[2024-05-17] MEDS: Aspirin E.C. 81 MG Tablet PO (08:43)
[2024-05-17] MEDS: Paroxetine 20 MG Tablet 40 MG PO (08:43)
[2024-05-17] MEDS: Acetaminophen 500 MG Tablet 1000 MG PO (08:43)
[2024-05-17] MEDS: Potassium Chloride Oral Tablet 20 MEQ PO (08:44)
[2024-05-17] MEDS: Vitamin B Comp W-C Capsule 1 CAP PO (08:44)
[2024-05-17] MEDS: Montelukast 10 MG Tablet PO (08:44)
[2024-05-17] MEDS: Celecoxib 200 MG Capsule PO (08:44)
[2024-05-17] MEDS: Menthol/Lanolin/Calamine/Znox 113 GM Tube 1 APPLIC TOPICAL ×2 (08:44→23:46)
[2024-05-17] MEDS: Pantoprazole Sodium 40 MG Tablet PO (08:44)
[2024-05-17 09:08] LABS: Anion Gap 5 (5-15); BUN 20 mg/dL (7-18); BUN/Creat Ratio 26.4 RATIO (10-20); Calcium,Total 8.5 mg/dL (8.5-10.1); Chloride 104 mmol/L (98-107); Creatinine, Serum 0.76 mg/dL (0.55-1.02); EST Glomerular Filtration Rate 83 mL/min (>60); Est Glom Filt Rate - Afr Amer 100 mL/min (>60); Estimated Creatinine Clearance 100.73 ml/min; Glucose 215 mg/dL (74-106); Phosphorus 3.6 mg/dL (2.5-4.9); Potassium 3.8 mmol/L (3.5-5.1); Sodium Level 138 mmol/L (136-145)
[2024-05-17 10:09] VITALS: PULSE 52
[2024-05-17 11:50] LABS: Bedside Glucose 294 mg/dL (74-106)
[2024-05-17 14:26] VITALS: BP 131/70; PULSE 57; RESP 18; TEMP 36.7; O2SAT 94
--- NOTE | 2024-05-17 15:44 | CON.PCM.SX_ITS ---
Assessment & Plan Assessment/Plan (1) Wound of left ankle: PLAN: Plan Her arterial inflow appears intact and sufficient to expect to heal, no interventions indicated from a vascular standpoint at this time. This was discussed with the patient and all her questions/concerns were addressed. HPI Consult Data Date of Consult: 05/17/24 HPI Narrative HPI Narrative: REMI TREVINO, is a 58 F who had undergone surgical intervention to correct calcaneal gait with plantar ulceration of the left heel on 01/26/2024. She subsequently had a fall placing weight on the left foot resulting in had dehiscence of this left lower extremity surgical site with exposure of the Achilles tendon. She underwent operative debridement of this site and 02/22/2024 with placement of a wound VAC. She then completed 6 weeks of IV antibiotics via PICC line with completion date 04/04/2024. She then presented for this admission for joint surgery between podiatry Dr. Smith and plastic surgery Dr. Solano including repeat operative debridement and placement of vera flow wound VAC on 05/15/2024 and now with plans for return to the OR on Monday for VAC removal and graft placement. We are consulted to evaluate for any arterial insufficiency which could be contributing to delayed healing. She is diabetic she reports fairly good control more recently with A1c this admission 6.9. She does smoke. She does have a history of prior diabetic ulcerations on her toes which have resulted in multiple prior digit amputations which she reports healed well. She denies any history of prior vascular surgical intervention, VTE. She did have arterial studies on 05/14/2024 which revealed left HIMA 1.15, TBI 0.76, triphasic waveforms throughout. Venous study was negative for any DVT or deep venous reflux. [facility] Medical History (Updated 05/15/24 @ 22:[address] Zack Smith, DPM) Open wound Current use of insulin Post-menopausal Hiatal hernia Back pain due to injury Osteoporosis Sleep apnea Insulin dependent diabetes mellitus Easy bruising Restless legs Difficulty swallowing Tachycardia Smoker Wears dentures Wears glasses Anxiety Iron deficiency Back pain Dietary restriction GERD (gastroesophageal reflux disease) Shortness of breath Asthma CPAP (continuous positive airway pressure) dependence Leg cramping History of pain when walking Edema Cardiology follow-up encounter History of stress test Normal echocardiogram Hypertension Difficulty balancing when standing Asthma Arthritis Fibromyalgia Multinodular thyroid Hypothyroidism Essential (primary) hypertension Hypergammaglobulinemia Hyperlipemia Dermatitis Depression PAD (peripheral artery disease) Other specified peripheral vascular diseases Hammertoe of left foot Skin ulcer of right foot including toes with fat layer exposed Osteomyelitis of toe Morbid obesity with BMI of 40.0-44.9, adult Diabetes type 2, uncontrolled Venous stasis dermatitis of both lower extremities Home Medications ?Medication ?Instructions ?Recorded ?Last Taken ?Type omeprazole 40 mg capsule,delayed 40 mg PO DAILY ACID REFLUX 10/18/18 05/14/24 History release paroxetine HCl 40 mg tablet 40 mg PO DAILY DEPRESSION 10/29/19 05/14/24 History pregabalin 150 mg capsule 150 mg PO TID NERVE PAIN 10/29/19 05/14/24 History aspirin 81 mg tablet,delayed 81 mg PO DAILY HEART HEALTH 07/21/20 05/08/24 History release (Adult Low Dose Aspirin) metoprolol succinate 200 mg 200 mg PO DAILY BLOOD PRESSURE 07/21/20 05/14/24 History tablet,extended release 24 hr rosuvastatin 40 mg tablet (Crestor) 40 mg PO DAILY CHOLESTEROL 08/26/22 05/14/24 History pen needle, diabetic 32 gauge x #100 ea 02/13/23 Unknown Rx (BD Ultra-Fine Catalina Pen Needle) dapagliflozin propanediol 10 mg 10 mg PO DAILY DIABETES 03/01/23 05/14/24 History tablet (Farxiga) losartan 100 mg tablet 100 mg PO DAILY BLOOD PRESSURE 03/01/23 05/14/24 History blood sugar diagnostic (True #100 ea 03/24/23 Unknown Rx Metrix Glucose Test Strip) glimepiride 4 mg tablet 4 mg PO DAILY diabetes #30 tabs 04/10/23 05/14/24 Rx insulin aspart 10 unit subcut TID diabetes #9 mL 05/29/23 02/26/24 Rx (niacinamide)(U-100) 100 unit/mL(3 mL) subcutaneous pen (Fiasp FlexTouch U-100 Insulin) albuterol sulfate 90 mcg/actuation 1 puff inhalation Q6H PRN PRN 01/19/24 05/12/24 History aerosol inhaler shortness of breath or wheezing tirzepatide 7.5 mg/0.5 mL 7.5 mg subcut QWEEK diabetes 01/19/24 04/29/24 History subcutaneous pen injector (Rex) celecoxib 200 mg capsule 200 mg PO DAILY pain 02/21/24 05/14/24 History doxepin 25 mg capsule 25 mg PO QHS sleep 02/21/24 05/14/24 History levothyroxine 150 mcg tablet 150 mcg PO DAILY hypothyroid 02/21/24 05/14/24 History montelukast 10 mg tablet 10 mg PO DAILY allergies/asthma 02/21/24 05/14/24 History potassium chloride 20 mEq 20 meq PO DAILY potassium 02/21/24 05/14/24 History tablet,extended supplement release(part/cryst) (Klor-Con M) trazodone 150 mg tablet 150 mg PO QHS sleep 02/21/24 05/14/24 History acetaminophen 500 mg tablet 1,000 mg (2 x 500 mg) PO Q6H PRN 04/02/24 Unknown Rx PRN Pain Score 1-3 #0 tabs arginine 7 gram-glutam 7 1 packet PO BIDCM 30 days #60 ea 04/02/24 Unknown Rx gram-CaHMB 1.5 oifs-chxvo-kg-min oral pwd pkt (Drew (with collagen)) oxycodone 5 mg tablet 5 mg PO Q4H PRN PRN Pain Score 04/02/24 05/14/24 Rx 6-10 Or Pre Pt/Ot 7 days #42 tabs vitamin B complex (Vitamins B 1 cap PO DAILY 05/15/24 05/14/24 History Complex capsule) Allergy/AdvReac Type Severity Reaction Status Date / Time piperacillin (From Zosyn) Allergy Severe Anaphylaxis Verified 05/15/24 13:21 tazobactam (From Zosyn) Allergy Severe Anaphylaxis Verified 05/15/24 13:21 sulfamethoxazole (From Allergy Unknown Anaphylaxis Verified 05/15/24 13:21 Bactrim) trimethoprim (From Bactrim) Allergy Unknown Anaphylaxis Verified 05/15/24 13:21 latex Allergy Rash Verified 05/15/24 13:21 pyrethrins Allergy Anaphylaxis Verified 05/15/24 13:21 tetanus and diphtheria Allergy Anaphylaxis Verified 05/15/24 13:21 toxoids (Tetanus&Diphtheria Toxoid) Family History Mother Diabetes Dementia Father Diabetes Myocardial infarction Surgical History Hx of toe surgery History of partial ray amputation of fifth toe of right foot Hx of total knee arthroplasty History of nasal septoplasty History of cholecystectomy History of thyroidectomy H/O arthroscopic knee surgery (11/2019) H/O amputation of lesser toe (05/05/17) Social History household members: none Smoking Status: Current some day smoker tobacco type: e-cigarettes alcohol intake: current alcohol intake frequency: holidays/special occasions only substance use type: does not use Physical Exam Const alert, oriented x3 and no apparent distress General Appearance: cooperative HEENT normocephalic, head/scalp atraumatic and external nose normal Eyes EOMs intact bilaterally Neck full ROM General: normal visual inspection Resp normal respiratory effort and no retractions Effort and Inspection: able to speak in complete sentences Cardio Rate: regular rate Rhythm: regular rhythm Extremity no calf tenderness Skin Wound Narrative: Left foot with vera flow wound VAC in place Neuro CN's II-XII intact bilaterally Psych mental status grossly normal Appearance: grossly normal Lab / Micro Data 05/17/24 07:22 05/17/24 07:22 Labs: Laboratory Results - last 24 hr 05/16/24 16:04: POC Glucose 253 H 05/16/24 21:04: POC Glucose 322 H 05/17/24 06:34: POC Glucose 231 H 05/17/24 07:22: WBC 6.6, RBC 4.34, Hgb 11.1 L, Hct 36.8 L, MCV 84.8, MCH 25.6 L, MCHC 30.2 L, RDW Std Deviation 44.2 H, RDW Coeff of Kami 14.4, Plt Count 262, MPV 9.6, Immature Gran % (Auto) 0.500, Neut % (Auto) 44.7 L, Lymph % (Auto) 43.2 H, [place] % (Auto) 8.1, Eos % (Auto) 2.9, Baso % (Auto) 0.6, Absolute Neuts (auto) 3.0, Absolute Lymphs (auto) 2.84, Nucleated RBC % 0, Sodium 138, Potassium 3.8, Chloride 104, Carbon Dioxide 29.0, Anion Gap 5, BUN 20 H, Creatinine 0.76, Estim Creat Clear Calc 100.73, Est GFR (MDRD) Af Amer 100, Est GFR (MDRD) Non-Af 83, B UN/Creatinine Ratio 26.4 H, Glucose 215 H, Calcium 8.5, Phosphorus 3.6, Magnesium 2.0 05/17/24 11:30: POC Glucose 294 H Micro: Microbiology 05/15/24 Unknown Tissue - Ankle Gram Stain - Final 05/15/24 Unknown Tissue - Ankle Wound Culture - Preliminary Staphylococcus aureus Charges/Coding Visit Charges Inpatient E&M: 75873 Init Hosp L1
[2024-05-17] MEDS: TIRZEPATIDE 7.5 MG/0.5 ML PEN.INJCTR SQ (16:26)
--- NOTE | 2024-05-17 16:28 | NURSING ---
pt own Rex in refrigerator per pharmacy verfication
[2024-05-17 16:49] LABS: Bedside Glucose 225 mg/dL (74-106)
[2024-05-17 20:28] VITALS: BP 108/68; PULSE 52; RESP 18; TEMP 36.6; O2SAT 92
[2024-05-17] MEDS: traZODone 100 MG Tablet 150 MG PO (23:47)
[2024-05-17] MEDS: Doxepin Hcl 25 MG Capsule PO (23:50)
[2024-05-17] MEDS: Atorvastatin Calcium 80 MG Tablet PO (23:50)
[2024-05-18] VITALS (7 sets, daily range): BP systolic 107–131; BP diastolic 58–89; PULSE 50–66; RESP 16–18; TEMP 36.4–37.1; O2SAT 95–99
[2024-05-18 00:34] LABS: Bedside Glucose 151 mg/dL (74-106)
[2024-05-18] MEDS: Pregabalin 75 MG Capsule 150 MG PO ×3 (06:12→21:30)
[2024-05-18 06:41] LABS: Bedside Glucose 134 mg/dL (74-106)
[2024-05-18 06:57] LABS: Absolute Lymphocyte Count 2.63 X10^3/uL (0.83-4.51); Absolute Neutrophil Count 2.5 X10^3/uL (2.0-7.7); Basophil# 0.05 X10^3/uL; Basophil% 0.8 % (0-1); Eosinophil# 0.26 X10^3/uL; Eosinophils% 4.4 % (0-5); Hematocrit 36.7 % (37-47); Hemoglobin 11.1 g/dL (12.0-15.0); Lymphocyte # 2.63 X10^3/ul (0.83-4.51); Lymphocyte % 44.1 % (19-41); Mean Corp Hgb Conc 30.2 g/dL (32-36); Mean Corpuscular Hgb 25.9 pg (27.0-32.0); Mean Corpuscular Volume 85.5 fL (81-99); Mean Platelet Vol. 9.4 fl (6.2-12.0); Monocyte# 0.47 X10^3/uL; Monocyte% 7.9 % (0-10); NRBC Flagged by Analyzer 0 % (0-5); Neutrophil # 2.53 X10^3/uL (2.7-7.7); Neutrophil % 42.3 % (47-70); Platelet Count 274 K/mm3 (150-450); RBC Distribution Width CV 14.4 % (11.6-14.6); RBC Distribution Width SD 44.4 fl (35.1-43.9); Red Blood Count 4.29 M/mm3 (4.2-5.4)
[2024-05-18 07:12] LABS: Anion Gap 4 (5-15); BUN 25 mg/dL (7-18); Calcium,Total 8.7 mg/dL (8.5-10.1); Chloride 101 mmol/L (98-107); Creatinine, Serum 0.78 mg/dL (0.55-1.02); EST Glomerular Filtration Rate 80 mL/min (>60); Est Glom Filt Rate - Afr Amer 97 mL/min (>60); Estimated Creatinine Clearance 98.15 ml/min; Glucose 138 mg/dL (74-106); Sodium Level 140 mmol/L (136-145)
--- NOTE | 2024-05-18 07:25 | PN.HOSP_ITS ---
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 Objective Data Objective Data Vital Signs: Vital Signs Temp Pulse Resp BP Pulse Ox O2 Del Method O2 Flow Rate 97.7 F L 50 L 18 128/89 H 99 Nasal Cannula 2 05/18/24 06:11 05/18/24 06:11 05/18/24 06:11 05/18/24 06:11 05/18/24 06:11 05/18/24 06:11 05/18/24 06:11 Oxygen Flow Rate (L/min) 2 Oxygen Delivery Method Nasal Cannula Weight: 104.3 kg Body Mass Index (BMI) 34.9 Intake & Output: Intake and Output for Last 24 Hours 05/16/24 05/17/24 05/18/24 23:59 23:59 23:59 Intake Total 1400 / 1400 200 / 200 Output Total 3900 / 3900 3300 / 3300 600 / 600 Balance -2500 / -2500 -3100 / -3100 -600 / -600 Lab / Micro Data 05/18/24 06:20 05/18/24 06:20 Labs: Laboratory Results - last 24 hr 05/17/24 07:22: WBC 6.6, RBC 4.34, Hgb 11.1 L, Hct 36.8 L, MCV 84.8, MCH 25.6 L, MCHC 30.2 L, RDW Std Deviation 44.2 H, RDW Coeff of Kami 14.4, Plt Count 262, MPV 9.6, Immature Gran % (Auto) 0.500, Neut % (Auto) 44.7 L, Lymph % (Auto) 43.2 H, [place] % (Auto) 8.1, Eos % (Auto) 2.9, Baso % (Auto) 0.6, Absolute Neuts (auto) 3.0, Absolute Lymphs (auto) 2.84, Nucleated RBC % 0, Sodium 138, Potassium 3.8, Chloride 104, Carbon Dioxide 29.0, Anion Gap 5, BUN 20 H, Creatinine 0.76, Estim Creat Clear Calc 100.73, Est GFR (MDRD) Af Amer 100, Est GFR (MDRD) Non-Af 83, B UN/Creatinine Ratio 26.4 H, Glucose 215 H, Calcium 8.5, Phosphorus 3.6, Magnesium 2.0 05/17/24 11:30: POC Glucose 294 H 05/17/24 16:24: POC Glucose 225 H 05/17/24 23:39: POC Glucose 151 H 05/18/24 06:10: POC Glucose 134 H 05/18/24 06:20: WBC 6.0, RBC 4.29, Hgb 11.1 L, Hct 36.7 L, MCV 85.5, MCH 25.9 L, MCHC 30.2 L, RDW Std Deviation 44.4 H, RDW Coeff of Kami 14.4, Plt Count 274, MPV 9.4, Immature Gran % (Auto) 0.500, Neut % (Auto) 42.3 L, Lymph % (Auto) 44.1 H, [place] % (Auto) 7.9, Eos % (Auto) 4.4, Baso % (Auto) 0.8, Absolute Neuts (auto) 2.5, Absolute Lymphs (auto) 2.63, Nucleated RBC % 0, Sodium 140, Potassium 4.0, Chloride 101, Carbon Dioxide 35.0 H, Anion Gap 4 L, BUN 25 H, Creatinine 0.78, Estim Creat Clear Calc 98.15, Est GFR (MDRD) Af Amer 97, Est GFR (MDRD) Non-Af 80, BUN/Creatinine Ratio 32.0 H, Glucose 138 H, Calcium 8.7 Micro: Microbiology 05/15/24 Unknown Tissue - Ankle Gram Stain - Final 05/15/24 Unknown Tissue - Ankle Wound Culture - Preliminary Staphylococcus aureus Physical Exam Narrative GENERAL: cooperative HEENT: Atraumatic; normocephalic EYES; Anicteric, Normal Conjunctiva NECK; supple, normal thyroid, RESPIRATORY: Diminished to auscultation CARDIOVASCULAR: Regular S1 S2, GI: soft, normoactive bowel sounds, : No Renal angle tenderness; EXTREMITIES: No edema, no clubbing, MUSCULOSKELETAL: Left ankle in surgical dressing with wound VAC in place NEURO: Awake; no lateralizing signs. SKIN: No Rash PSYCH; Flat affect Assessment & Plan Assessment/Plan (1) Diabetes mellitus with ulcer of calf: (2) Wound of left ankle: (3) Essential (primary) hypertension: (4) Type 2 diabetes mellitus with hyperglycemia: PLAN: Plan Patient is a 58-year-old female admitted with left posterior ankle wound over Achilles tendon, underwent wound debridement with application of wound VAC by plastic surgery and podiatry subsequently admitted to the medical service Repair 1. Left posterior ankle wound over Achilles tendon, Underwent wound debridement with application of wound VAC by plastic surgery and podiatry on 05/15/2024 subsequently admitted to the medical service ? 05/17/2024; Case was discussed with Dr. Solano with plastic surgery recommended continuing with irrigating wound VAC until Monday, 20 May 2024, with plan to return to the OR for VAC removal and Integra placement on this date ? 05/18/2024; pain remains controlled 2. Diabetes mellitus type II -patient's oral hypoglycemics held. Placed on long acting insulin, Accu-Cheks a.c. and at bedtime and covered with sliding scale insulin 3. Hypertension ? Blood pressure controlled, home medications continued with dose adjustment as needed 4. Hypothyroidism ? Patient is on levothyroxine home dose continued 5. Dyslipidemia 6. Class II obesity with BMI of 35 ? Complicating care weight loss advised 7. Anemia ? Secondary to chronic disorder monitoring H&H and transfuse if patient becomes symptomatic or hemoglobin falls below 7 8. Tobacco dependence ? Counseled on cessation, offered nicotine patch for tobacco cravings 9. DVT prophylaxis ? On enoxaparin Time spent in the patient's overall evaluation,decision-making process, review of diagnostic data, adjustment of management, discussion with other providers, nursing nursing and ancillary staff involved in patient's care documentation, 36 minutes
[2024-05-18] MEDS: Vitamin B Comp W-C Capsule 1 CAP PO (08:43)
[2024-05-18] MEDS: Aspirin E.C. 81 MG Tablet PO (08:44)
[2024-05-18] MEDS: Potassium Chloride Oral Tablet 20 MEQ PO (08:44)
[2024-05-18] MEDS: Pantoprazole Sodium 40 MG Tablet PO (08:44)
[2024-05-18] MEDS: Losartan Potassium 100 MG Tablet PO (08:44)
[2024-05-18] MEDS: Glimepiride 4 MG Tablet PO (08:44)
[2024-05-18] MEDS: Celecoxib 200 MG Capsule PO (08:45)
[2024-05-18] MEDS: Paroxetine 20 MG Tablet 40 MG PO (08:45)
[2024-05-18] MEDS: Enoxaparin 40 MG/0.4 ML Syringe SC (08:45)
[2024-05-18] MEDS: Montelukast 10 MG Tablet PO (08:46)
[2024-05-18] MEDS: Menthol/Lanolin/Calamine/Znox 113 GM Tube 1 APPLIC TOPICAL ×2 (08:47→21:22)
[2024-05-18] MEDS: Metoprolol(XL)Succ 50 MG Tablet PO (08:47)
[2024-05-18] MEDS: oxyCODONE 5 MG Tablet PO ×2 (08:53→17:39)
[2024-05-18] MEDS: Acetaminophen 500 MG Tablet 1000 MG PO ×2 (08:53→17:40)
--- NOTE | 2024-05-18 09:15 | PCM.PN.SRG ---
Subjective Subjective Doing well. Pain controlled. Got Lovenox yesterday. Objective Data Objective Data Vital Signs: Vital Signs Temp Pulse Resp BP Pulse Ox O2 Del Method O2 Flow Rate 97.7 F L 66 18 128/89 H 99 Room Air 2 05/18/24 06:11 05/18/24 08:47 05/18/24 06:11 05/18/24 06:11 05/18/24 06:11 05/18/24 08:46 05/18/24 06:11 Oxygen Flow Rate (L/min) 2 Oxygen Delivery Method Room Air Weight: 229 lb 15.074 oz Body Mass Index (BMI) 34.9 Intake & Output: Intake and Output for Last 24 Hours 05/16/24 05/17/24 05/18/24 23:59 23:59 23:59 Intake Total 1400 / 1400 200 / 200 Output Total 3900 / 3900 3300 / 3300 600 / 600 Balance -2500 / -2500 -3100 / -3100 -600 / -600 Lab / Micro Data 05/18/24 06:20 05/18/24 06:20 Labs: Laboratory Results - last 24 hr 05/17/24 11:30: POC Glucose 294 H 05/17/24 16:24: POC Glucose 225 H 05/17/24 23:39: POC Glucose 151 H 05/18/24 06:10: POC Glucose 134 H 05/18/24 06:20: WBC 6.0, RBC 4.29, Hgb 11.1 L, Hct 36.7 L, MCV 85.5, MCH 25.9 L, MCHC 30.2 L, RDW Std Deviation 44.4 H, RDW Coeff of Kami 14.4, Plt Count 274, MPV 9.4, Immature Gran % (Auto) 0.500, Neut % (Auto) 42.3 L, Lymph % (Auto) 44.1 H, [place] % (Auto) 7.9, Eos % (Auto) 4.4, Baso % (Auto) 0.8, Absolute Neuts (auto) 2.5, Absolute Lymphs (auto) 2.63, Nucleated RBC % 0, Sodium 140, Potassium 4.0, Chloride 101, Carbon Dioxide 35.0 H, Anion Gap 4 L, BUN 25 H, Creatinine 0.78, Estim Creat Clear Calc 98.15, Est GFR (MDRD) Af Amer 97, Est GFR (MDRD) Non-Af 80, BUN/Creatinine Ratio 32.0 H, Glucose 138 H, Calcium 8.7 Micro: Microbiology 05/15/24 Unknown Tissue - Ankle Gram Stain - Final 05/15/24 Unknown Tissue - Ankle Wound Culture - Final Staphylococcus aureus Physical Exam Narrative Dressing removed over the VAC Left lower extremity VeraFlow VAC holding suction, no issues. No blood in the VAC. Heal and foot are appropriately offloaded. Assessment & Plan Assessment/Plan (1) Wound of left ankle: PLAN: Continue irrigating wound VAC until Monday, 20 May 2024, with plan to return to the OR for VAC removal and Integra placement on this date (okay for discharge after Monday's surgery with home wound VAC). I have talked to the wound care team about ordering a home wound VAC Vascular consultation performed, no need for intervention (good flow for healing the wound). I spoke with Dr. Araya myself. OK for DVT prophylaxis No need to hold for surgery either Charges/Coding Procedures Integumentary [id number]: [id number] Global Visit
[2024-05-18] MEDS: Doxycycline 100 MG in Dextrose 5%-Water (250mL Bag) 250 ML 250 MG IV ×2 (10:07→21:38)
[2024-05-18] MEDS: Insulin Lispro 100 UNIT/ML INSULN.PEN SC ×3 (11:51→21:24)
[2024-05-18 12:12] LABS: Bedside Glucose 239 mg/dL (74-106)
[2024-05-18 18:15] LABS: Bedside Glucose 376 mg/dL (74-106)
[2024-05-18] MEDS: traZODone 100 MG Tablet 150 MG PO (21:27)
[2024-05-18] MEDS: Doxepin Hcl 25 MG Capsule PO (21:28)
[2024-05-18] MEDS: Atorvastatin Calcium 80 MG Tablet PO (21:28)
[2024-05-18 21:38] LABS: Bedside Glucose 202 mg/dL (74-106)
[2024-05-19] VITALS (9 sets, daily range): BP systolic 110–145; BP diastolic 60–75; PULSE 61–69; RESP 16–20; TEMP 36.6–36.8; O2SAT 88–97
[2024-05-19] MEDS: Pregabalin 75 MG Capsule 150 MG PO ×3 (05:16→23:18)
--- NOTE | 2024-05-19 06:22 | PN.SURG_ITS ---
Subjective Subjective Doing well today. Understands plan for surgery tomorrow with possible dermal substitute placement v. possible repeat debridement followed by dermal substitute later in the week. All questions answered. Objective Data Objective Data Vital Signs: Vital Signs Temp Pulse Resp BP Pulse Ox O2 Del Method O2 Flow Rate 98.3 F 61 16 110/60 95 Room Air 2 05/19/24 01:05/19/24 01:05/19/24 01:05/19/24 01:05/19/24 01:05/19/24 01:05/18/24 06:11 Oxygen Flow Rate (L/min) 2 Oxygen Delivery Method Room Air Weight: 229 lb 15.074 oz Body Mass Index (BMI) 34.9 Intake & Output: Intake and Output for Last 24 Hours 05/17/24 05/18/24 05/19/24 23:59 23:59 23:59 Intake Total 200 / 200 1820 / 1820 Output Total 3300 / 3300 1400 / 1400 Balance -3100 / -3100 420 / 420 Lab / Micro Data 05/19/24 06:05 05/19/24 06:05 Labs: Laboratory Results - last 24 hr 05/18/24 06:10: POC Glucose 134 H 05/18/24 06:20: WBC 6.0, RBC 4.29, Hgb 11.1 L, Hct 36.7 L, MCV 85.5, MCH 25.9 L, MCHC 30.2 L, RDW Std Deviation 44.4 H, RDW Coeff of Kami 14.4, Plt Count 274, MPV 9.4, Immature Gran % (Auto) 0.500, Neut % (Auto) 42.3 L, Lymph % (Auto) 44.1 H, [place] % (Auto) 7.9, Eos % (Auto) 4.4, Baso % (Auto) 0.8, Absolute Neuts (auto) 2.5, Absolute Lymphs (auto) 2.63, Nucleated RBC % 0, Sodium 140, Potassium 4.0, Chloride 101, Carbon Dioxide 35.0 H, Anion Gap 4 L, BUN 25 H, Creatinine 0.78, Estim Creat Clear Calc 98.15, Est GFR (MDRD) Af Amer 97, Est GFR (MDRD) Non-Af 80, BUN/Creatinine Ratio 32.0 H, Glucose 138 H, Calcium 8.7 09/07/24 11:50: POC Glucose 239 H 05/18/24 17:36: POC Glucose 376 H 05/18/24 21:17: POC Glucose 202 H Micro: Microbiology 05/15/24 Unknown Tissue - Ankle Gram Stain - Final 05/15/24 Unknown Tissue - Ankle Wound Culture - Final Staphylococcus aureus 05/15/24 Unknown Tissue - Ankle Anaerobic Culture - Preliminary Checking for anaerobes, further studies to follow. Assessment & Plan Assessment/Plan (1) Wound of left ankle: PLAN: Vascular consultation performed, no need for intervention (good flow for healing the wound). I spoke with Dr. Araya myself. OK for DVT prophylaxis (she's on Lovenox now), No need to hold for surgery either ID: Agree with continued Doxycycline for the MSSA positivity/susceptibility seen from OR cultures from debridement on 15 May 2024 Achilles Wound: * Continue irrigating wound VAC until Monday, 20 May 2024, with plan to return to the OR for VAC removal and debridement, followed by possible Integra placement on 22 May 2024 in the OR. NPO at midnight. She can be discharged tomorrow from my standpoint after the surgery and come back as an outpatient on Mon. She was non-ambulatory at home on the LLE (no change in status) and has appropriate DME supplies at home (discussed with patient again today. Daughters also helping to support her). * I have talked to the wound care team about ordering a home wound VAC. * Weight bearing status per Podiatry (Dr. Smith), which is NWB until 29 May 2024, then walk with a fracture boot. * She will need to be discharged on DVT prophylaxis Charges/Coding Procedures Integumentary [id number]: [id number] Global Visit
[2024-05-19] MEDS: Insulin Lispro 100 UNIT/ML INSULN.PEN SC ×4 (06:41→23:19)
[2024-05-19 06:54] LABS: Absolute Lymphocyte Count 2.56 X10^3/uL (0.83-4.51); Absolute Neutrophil Count 2.4 X10^3/uL (2.0-7.7); Basophil# 0.04 X10^3/uL; Basophil% 0.7 % (0-1); Eosinophil# 0.18 X10^3/uL; Eosinophils% 3.2 % (0-5); Hematocrit 34.9 % (37-47); Hemoglobin 10.6 g/dL (12.0-15.0); Lymphocyte # 2.56 X10^3/ul (0.83-4.51); Lymphocyte % 45.5 % (19-41); Mean Corp Hgb Conc 30.4 g/dL (32-36); Mean Corpuscular Hgb 25.8 pg (27.0-32.0); Mean Corpuscular Volume 84.9 fL (81-99); Mean Platelet Vol. 9.4 fl (6.2-12.0); Monocyte# 0.46 X10^3/uL; Monocyte% 8.2 % (0-10); NRBC Flagged by Analyzer 0 % (0-5); Neutrophil # 2.36 X10^3/uL (2.7-7.7); Neutrophil % 41.9 % (47-70); Platelet Count 275 K/mm3 (150-450); RBC Distribution Width CV 14.4 % (11.6-14.6); Red Blood Count 4.11 M/mm3 (4.2-5.4); White Blood Count 5.6 K/mm3 (4.4-11.0)
[2024-05-19 06:57] LABS: Bedside Glucose 223 mg/dL (74-106)
[2024-05-19 07:12] LABS: Anion Gap 4 (5-15); BUN 29 mg/dL (7-18); BUN/Creat Ratio 35.1 RATIO (10-20); Calcium,Total 8.6 mg/dL (8.5-10.1); Chloride 99 mmol/L (98-107); Creatinine, Serum 0.83 mg/dL (0.55-1.02); EST Glomerular Filtration Rate 75 mL/min (>60); Est Glom Filt Rate - Afr Amer 91 mL/min (>60); Estimated Creatinine Clearance 92.24 ml/min; Glucose 240 mg/dL (74-106); Potassium 3.6 mmol/L (3.5-5.1); Sodium Level 137 mmol/L (136-145)
--- NOTE | 2024-05-19 07:30 | PCM.PN.HOSP ---
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 Patient started on Unasyn consult placed to ID for discussion with Dr. Solano Objective Data Objective Data Vital Signs: Vital Signs Temp Pulse Resp BP Pulse Ox O2 Del Method O2 Flow Rate 98.3 F 61 16 110/60 95 Room Air 2 05/19/24 01:29 05/19/24 01:29 05/19/24 01:29 05/19/24 01:29 05/19/24 01:05/19/24 01:05/18/24 06:11 Oxygen Flow Rate (L/min) 2 Oxygen Delivery Method Room Air Weight: 104.3 kg Body Mass Index (BMI) 34.9 Intake & Output: Intake and Output for Last 24 Hours 05/17/24 05/18/24 05/19/24 23:59 23:59 23:59 Intake Total 200 / 200 1820 / 1820 300 / 300 Output Total 3300 / 3300 1400 / 1400 Balance -3100 / -3100 420 / 420 300 / 300 Lab / Micro Data 05/19/24 06:05 05/19/24 06:05 Labs: Laboratory Results - last 24 hr 05/18/24 11:50: POC Glucose 239 H 05/18/24 17:36: POC Glucose 376 H 05/18/24 21:17: POC Glucose 202 H 05/19/24 06:05: WBC 5.6, RBC 4.11 L, Hgb 10.6 L, Hct 34.9 L, MCV 84.9, MCH 25.8 L, MCHC 30.4 L, RDW Std Deviation 44.0 H, RDW Coeff of Kami 14.4, Plt Count 275, MPV 9.4, Immature Gran % (Auto) 0.500, Neut % (Auto) 41.9 L, Lymph % (Auto) 45.5 H, [place] % (Auto) 8.2, Eos % (Auto) 3.2, Baso % (Auto) 0.7, Absolute Neuts (auto) 2.4, Absolute Lymphs (auto) 2.56, Nucleated RBC % 0, Sodium 137, Potassium 3.6, Chloride 99, Carbon Dioxide 34.0 H, Anion Gap 4 L, BUN 29 H, Creatinine 0.83, Estim Creat Clear Calc 92.24, Est GFR (MDRD) Af Amer 91, Est GFR (MDRD) Non-Af 75, BUN/Creatinine Ratio 35.1 H, Glucose 240 H, Calcium 8.6 05/19/24 06:37: POC Glucose 223 H Micro: Microbiology 05/15/24 Unknown Tissue - Ankle Gram Stain - Final 05/15/24 Unknown Tissue - Ankle Wound Culture - Final Staphylococcus aureus 05/15/24 Unknown Tissue - Ankle Anaerobic Culture - Preliminary Checking for anaerobes, further studies to follow. Physical Exam Narrative GENERAL: cooperative HEENT: Atraumatic; normocephalic EYES; Anicteric, Normal Conjunctiva NECK; supple, normal thyroid, RESPIRATORY: Diminished to auscultation CARDIOVASCULAR: Regular S1 S2, GI: soft, normoactive bowel sounds, : No Renal angle tenderness; EXTREMITIES: No edema, no clubbing, MUSCULOSKELETAL: Left ankle in surgical dressing with wound VAC in place NEURO: Awake; no lateralizing signs. SKIN: No Rash PSYCH; Flat affect Assessment & Plan Assessment/Plan (1) Diabetes mellitus with ulcer of calf: (2) Wound of left ankle: (3) Essential (primary) hypertension: (4) Type 2 diabetes mellitus with hyperglycemia: PLAN: Plan Patient is a 58-year-old female admitted with left posterior ankle wound over Achilles tendon, underwent wound debridement with application of wound VAC by plastic surgery and podiatry subsequently admitted to the medical service Repair 1. Left posterior ankle wound over Achilles tendon, Underwent wound debridement with application of wound VAC by plastic surgery and podiatry on 05/15/2024 subsequently admitted to the medical service ? 05/17/2024; Case was discussed with Dr. Solano with plastic surgery recommended continuing with irrigating wound VAC until Monday, 20 May 2024, with plan to return to the OR for VAC removal and Integra placement on this date ? 05/18/2024; pain remains controlled ? 05/19/2024;Patient wound cultures positive for methicillin sensitive Staph aureus with. Patient started on Unasyn consult placed to ID for discussion with Dr. Solano 2. Diabetes mellitus type II -patient's oral hypoglycemics held. Placed on long acting insulin, Accu-Cheks a.c. and at bedtime and covered with sliding scale insulin 3. Hypertension ? Blood pressure controlled, home medications continued with dose adjustment as needed 4. Hypothyroidism ? Patient is on levothyroxine home dose continued 5. Dyslipidemia 6. Class II obesity with BMI of 35 ? Complicating care weight loss advised 7. Anemia ? Secondary to chronic disorder monitoring H&H and transfuse if patient becomes symptomatic or hemoglobin falls below 7 8. Tobacco dependence ? Counseled on cessation, offered nicotine patch for tobacco cravings 9. DVT prophylaxis ? On enoxaparin Time spent in the patient's overall evaluation,decision-making process, review of diagnostic data, adjustment of management, discussion with other providers, nursing nursing and ancillary staff involved in patient's care documentation, 36 minutes Charges/Coding Visit Charges Inpatient E&M: 63398 Subs Hosp L2
[2024-05-19] MEDS: Enoxaparin 40 MG/0.4 ML Syringe SC (08:58)
[2024-05-19] MEDS: Celecoxib 200 MG Capsule PO (08:58)
[2024-05-19] MEDS: Losartan Potassium 100 MG Tablet PO (08:59)
[2024-05-19] MEDS: Pantoprazole Sodium 40 MG Tablet PO (08:59)
[2024-05-19] MEDS: Vitamin B Comp W-C Capsule 1 CAP PO (08:59)
[2024-05-19] MEDS: Menthol/Lanolin/Calamine/Znox 113 GM Tube 1 APPLIC TOPICAL ×2 (08:59→23:18)
[2024-05-19] MEDS: Glimepiride 4 MG Tablet PO (08:59)
[2024-05-19] MEDS: Metoprolol(XL)Succ 50 MG Tablet PO (09:00)
[2024-05-19] MEDS: Paroxetine 20 MG Tablet 40 MG PO (09:00)
[2024-05-19] MEDS: Potassium Chloride Oral Tablet 20 MEQ PO (09:00)
[2024-05-19] MEDS: Aspirin E.C. 81 MG Tablet PO (09:00)
[2024-05-19] MEDS: Montelukast 10 MG Tablet PO (09:01)
[2024-05-19] MEDS: Doxycycline 100 MG in Dextrose 5%-Water (250mL Bag) 250 ML 250 MG IV ×2 (11:44→22:15)
[2024-05-19 12:11] LABS: Bedside Glucose 229 mg/dL (74-106)
[2024-05-19] MEDS: Acetaminophen 500 MG Tablet 1000 MG PO ×2 (14:12→23:17)
[2024-05-19] MEDS: oxyCODONE 5 MG Tablet PO ×2 (14:13→23:17)
[2024-05-19 16:31] LABS: Bedside Glucose 289 mg/dL (74-106)
--- NOTE | 2024-05-19 18:51 | NURSING ---
Family members are at bedside. Pt denies needs at this time.
[2024-05-19] MEDS: Doxepin Hcl 25 MG Capsule PO (23:20)
[2024-05-19] MEDS: traZODone 100 MG Tablet 150 MG PO (23:20)
[2024-05-19] MEDS: Atorvastatin Calcium 80 MG Tablet PO (23:21)
[2024-05-19 23:43] LABS: Bedside Glucose 329 mg/dL (74-106)
[2024-05-20] VITALS (13 sets, daily range): BP systolic 104–136; BP diastolic 58–77; PULSE 63–77; RESP 16–18; TEMP 36.4–36.8; O2SAT 92–99
--- NOTE | 2024-05-20 05:00 | EKG12_ITS ---
Test Reason : AM EKG Blood Pressure : / mmHG Vent. Rate : 061 BPM Atrial Rate : 061 BPM P-R Int : 164 ms QRS Dur : 096 ms QT Int : 426 ms P-R-T Axes : 063 -01 022 degrees QTc Int : 428 ms Normal sinus rhythm Low voltage QRS Borderline ECG When compared with ECG of 22-FEB-2024 05:33, No significant change was found Confirmed by GUTIERREZ VEGA, SUZAN ([id number]), online editor JG JUAREZ [id number] on 05/20/2024 2:53:03 PM Referred By: Cristóbal Ness Confirmed By:SUZAN WHITLEY MD
[2024-05-20] MEDS: Pregabalin 75 MG Capsule 150 MG PO ×3 (06:13→20:46)
[2024-05-20] MEDS: Insulin Lispro 100 UNIT/ML INSULN.PEN SC ×4 (06:14→20:47)
[2024-05-20 06:18] LABS: Hematocrit 35.8 % (37-47); Hemoglobin 10.9 g/dL (12.0-15.0); Mean Corp Hgb Conc 30.4 g/dL (32-36); Mean Corpuscular Hgb 25.8 pg (27.0-32.0); Mean Corpuscular Volume 84.8 fL (81-99); Platelet Count 258 K/mm3 (150-450); RBC Distribution Width CV 14.4 % (11.6-14.6); RBC Distribution Width SD 43.8 fl (35.1-43.9); Red Blood Count 4.22 M/mm3 (4.2-5.4); White Blood Count 6.2 K/mm3 (4.4-11.0)
--- NOTE | 2024-05-20 06:30 | NURSING ---
report called to [facility]
--- NOTE | 2024-05-20 06:35 | HP.PCM.SX_ITS ---
HPI - General General Date of Admission: 05/15/24 Chief Complaint: Left achilles wound HPI Narrative REMI TREVINO, is a 58 F who presents for repeat debridement and VAC change on POD 5 from excision of wound and removal of foreign body from left ankle (Achilles) wound. Cultures growing Staphlococcus aureus in the broth. [facility] Medical History Open wound Current use of insulin Post-menopausal Hiatal hernia Back pain due to injury Osteoporosis Sleep apnea Insulin dependent diabetes mellitus Easy bruising Restless legs Difficulty swallowing Tachycardia Smoker Wears dentures Wears glasses Anxiety Iron deficiency Back pain Dietary restriction GERD (gastroesophageal reflux disease) Shortness of breath Asthma CPAP (continuous positive airway pressure) dependence Leg cramping History of pain when walking Edema Cardiology follow-up encounter History of stress test Normal echocardiogram Hypertension Difficulty balancing when standing Asthma Arthritis Fibromyalgia Multinodular thyroid Hypothyroidism Essential (primary) hypertension Hypergammaglobulinemia Hyperlipemia Dermatitis Depression PAD (peripheral artery disease) Other specified peripheral vascular diseases Hammertoe of left foot Skin ulcer of right foot including toes with fat layer exposed Osteomyelitis of toe Morbid obesity with BMI of 40.0-44.9, adult Diabetes type 2, uncontrolled Venous stasis dermatitis of both lower extremities Home Medications ?Medication ?Instructions ?Recorded ?Last Taken ?Type omeprazole 40 mg capsule,delayed 40 mg PO DAILY ACID REFLUX 10/18/18 05/14/24 History release paroxetine HCl 40 mg tablet 40 mg PO DAILY DEPRESSION 10/29/19 05/14/24 History pregabalin 150 mg capsule 150 mg PO TID NERVE PAIN 10/29/19 05/14/24 History aspirin 81 mg tablet,delayed 81 mg PO DAILY HEART HEALTH 07/21/20 05/08/24 History release (Adult Low Dose Aspirin) metoprolol succinate 200 mg 200 mg PO DAILY BLOOD PRESSURE 07/21/20 05/14/24 History tablet,extended release 24 hr rosuvastatin 40 mg tablet (Crestor) 40 mg PO DAILY CHOLESTEROL 08/26/22 05/14/24 History pen needle, diabetic 32 gauge x #100 ea 02/13/23 Unknown Rx (BD Ultra-Fine Catalina Pen Needle) dapagliflozin propanediol 10 mg 10 mg PO DAILY DIABETES 03/01/23 05/14/24 History tablet (Farxiga) losartan 100 mg tablet 100 mg PO DAILY BLOOD PRESSURE 03/01/23 05/14/24 History blood sugar diagnostic (True #100 ea 03/24/23 Unknown Rx Metrix Glucose Test Strip) glimepiride 4 mg tablet 4 mg PO DAILY diabetes #30 tabs 04/10/23 05/14/24 Rx insulin aspart 10 unit subcut TID diabetes #9 mL 05/29/23 02/26/24 Rx (niacinamide)(U-100) 100 unit/mL(3 mL) subcutaneous pen (Fiasp FlexTouch U-100 Insulin) albuterol sulfate 90 mcg/actuation 1 puff inhalation Q6H PRN PRN 01/19/24 05/12/24 History aerosol inhaler shortness of breath or wheezing tirzepatide 7.5 mg/0.5 mL 7.5 mg subcut QWEEK diabetes 01/19/24 04/29/24 History subcutaneous pen injector (Rex) celecoxib 200 mg capsule 200 mg PO DAILY pain 02/21/24 05/14/24 History doxepin 25 mg capsule 25 mg PO QHS sleep 02/21/24 05/14/24 History levothyroxine 150 mcg tablet 150 mcg PO DAILY hypothyroid 02/21/24 05/14/24 History montelukast 10 mg tablet 10 mg PO DAILY allergies/asthma 02/21/24 05/14/24 History potassium chloride 20 mEq 20 meq PO DAILY potassium 02/21/24 05/14/24 History tablet,extended supplement release(part/cryst) (Klor-Con M) trazodone 150 mg tablet 150 mg PO QHS sleep 02/21/24 05/14/24 History acetaminophen 500 mg tablet 1,000 mg (2 x 500 mg) PO Q6H PRN 04/02/24 Unknown Rx PRN Pain Score 1-3 #0 tabs arginine 7 gram-glutam 7 1 packet PO BIDCM 30 days #60 ea 04/02/24 Unknown Rx gram-CaHMB 1.5 [id number]-kg-min oral pwd pkt (Drew (with collagen)) oxycodone 5 mg tablet 5 mg PO Q4H PRN PRN Pain Score 04/02/24 05/14/24 Rx 6-10 Or Pre Pt/Ot 7 days #42 tabs vitamin B complex (Vitamins B 1 cap PO DAILY 05/15/24 05/14/24 History Complex capsule) Allergy/AdvReac Type Severity Reaction Status Date / Time piperacillin (From Zosyn) Allergy Severe Anaphylaxis Verified 05/15/24 13:21 tazobactam (From Zosyn) Allergy Severe Anaphylaxis Verified 05/15/24 13:21 sulfamethoxazole (From Allergy Unknown Anaphylaxis Verified 05/15/24 13:21 Bactrim) trimethoprim (From Bactrim) Allergy Unknown Anaphylaxis Verified 05/15/24 13:21 latex Allergy Rash Verified 05/15/24 13:21 pyrethrins Allergy Anaphylaxis Verified 05/15/24 13:21 tetanus and diphtheria Allergy Anaphylaxis Verified 05/15/24 13:21 toxoids (Tetanus&Diphtheria Toxoid) Family History Mother Diabetes Dementia Father Diabetes Myocardial infarction Surgical History Hx of toe surgery History of partial ray amputation of fifth toe of right foot Hx of total knee arthroplasty History of nasal septoplasty History of cholecystectomy History of thyroidectomy H/O arthroscopic knee surgery (11/2019) H/O amputation of lesser toe (05/05/17) Social History household members: none Smoking Status: Current some day smoker tobacco type: e-cigarettes alcohol intake: current alcohol intake frequency: holidays/special occasions only substance use type: does not use Vital Signs Vital Signs Vital Signs: 05/19/24 07:45 05/19/24 07:57 05/19/24 08:40 Temperature 98.0 F Temperature Source Oral Pulse Rate 63 Pulse Strength Respiratory Rate 18 Respiratory Effort Respiratory Depth Respiratory Pattern Blood Pressure 123/74 H Blood Pressure Mean 90 Blood Pressure Source Blood Pressure Position Blood Pressure Location Pulse Ox 88 95 97 Oxygen Delivery Method Room Air Room Air Nasal Cannula Oxygen Flow Rate (L/min) 2 05/19/24 09:00 05/19/24 09:30 05/19/24 10:00 Temperature Temperature Source Pulse Rate 63 Pulse Strength Weak (1+) Respiratory Rate Respiratory Effort Normal Non-Labored Respiratory Depth Normal Respiratory Pattern Normal Blood Pressure Blood Pressure Mean Blood Pressure Source Blood Pressure Position Blood Pressure Location Pulse Ox 88 Oxygen Delivery Method Room Air Oxygen Flow Rate (L/min) 05/19/24 14:05 05/19/24 14:15 05/19/24 22:50 Temperature 97.8 F Temperature Source Oral Pulse Rate 69 Pulse Strength Respiratory Rate 16 Respiratory Effort Normal Non-Labored Respiratory Depth Normal Respiratory Pattern Normal Blood Pressure 143/75 H Blood Pressure Mean 97 Blood Pressure Source Monitor Blood Pressure Position Semi-Fowlers Blood Pressure Location Right Arm Pulse Ox 94 94 Oxygen Delivery Method Room Air Room Air Room Air Oxygen Flow Rate (L/min) 05/19/24 22:54 05/20/24 06:00 Temperature 97.9 F 97.6 F L Temperature Source Oral Oral Pulse Rate 65 65 Pulse Strength Respiratory Rate 20 H 18 Respiratory Effort Respiratory Depth Respiratory Pattern Blood Pressure 145/70 H 127/70 H Blood Pressure Mean 95 89 Blood Pressure Source Blood Pressure Position Blood Pressure Location Pulse Ox 93 93 Oxygen Delivery Method Room Air Room Air Oxygen Flow Rate (L/min) Weight Weight: 229 lb 15.074 oz Body Mass Index (BMI) 34.9 Physical Exam Narrative Dressing removed over the VAC Left lower extremity VeraFlow VAC holding suction, no issues. No blood in the VAC. Heal and foot are appropriately offloaded. Const oriented x3 Cardio regular rate Results Lab / Micro Data 05/20/24 06:10 05/19/24 06:05 Labs: Laboratory Results - last 24 hr 05/19/24 06:05: WBC 5.6, RBC 4.11 L, Hgb 10.6 L, Hct 34.9 L, MCV 84.9, MCH 25.8 L, MCHC 30.4 L, RDW Std Deviation 44.0 H, RDW Coeff of Kami 14.4, Plt Count 275, MPV 9.4, Immature Gran % (Auto) 0.500, Neut % (Auto) 41.9 L, Lymph % (Auto) 45.5 H, Gilmer % (Auto) 8.2, Eos % (Auto) 3.2, Baso % (Auto) 0.7, Absolute Neuts (auto) 2.4, Absolute Lymphs (auto) 2.56, Nucleated RBC % 0, Sodium 137, Potassium 3.6, Chloride 99, Carbon Dioxide 34.0 H, Anion Gap 4 L, BUN 29 H, Creatinine 0.83, Estim Creat Clear Calc 92.24, Est GFR (MDRD) Af Amer 91, Est GFR (MDRD) Non-Af 75, BUN/Creatinine Ratio 35.1 H, Glucose 240 H, Calcium 8.6 05/19/24 06:37: POC Glucose 223 H 05/19/24 11:50: POC Glucose 229 H 05/19/24 16:05: POC Glucose 289 H 05/19/24 23:15: POC Glucose 329 H 05/20/24 06:10: WBC 6.2, RBC 4.22, Hgb 10.9 L, Hct 35.8 L, MCV 84.8, MCH 25.8 L, MCHC 30.4 L, RDW Std Deviation 43.8, RDW Coeff of Kami 14.4, Plt Count 258, MPV 9.0 Assessment & Plan Assessment/Plan (1) Wound of left ankle: PLAN: Plan Discussed with patient plan for OR today for another wash out debridement and likely dermal substitute placement on Mon22 May 2024. I talked the patient extensively about the risks of surgery, including bleeding, infection, damage to surrounding structures, surgical site dehiscence and wound formation, need for wound care, need for repeat operations, failure to obtain the desired result, DVT/PE, and the risks of anesthesia including . All of their questions were answered, and they agreed to proceed with surgery.
[2024-05-20 06:38] LABS: Bedside Glucose 184 mg/dL (74-106)
--- NOTE | 2024-05-20 06:38 | WOUNDNOTE ---
Pt scheduled for surgery this am with Dr Solano. VeraFzuleika wound VAC dressing remains in place.
[2024-05-20] MEDS: 0.9% Normal Saline (1000mL) 1,000 ML 15 ML IV (06:48)
[2024-05-20 07:01] LABS: Anion Gap 4 (5-15); BUN 31 mg/dL (7-18); BUN/Creat Ratio 39.9 RATIO (10-20); Calcium,Total 8.7 mg/dL (8.5-10.1); Chloride 101 mmol/L (98-107); Creatinine, Serum 0.78 mg/dL (0.55-1.02); EST Glomerular Filtration Rate 81 mL/min (>60); Est Glom Filt Rate - Afr Amer 98 mL/min (>60); Estimated Creatinine Clearance 98.15 ml/min; Glucose 208 mg/dL (74-106); Potassium 3.8 mmol/L (3.5-5.1); Sodium Level 136 mmol/L (136-145)
--- NOTE | 2024-05-20 07:30 | PCM.PRE.AN2 ---
ASA Classification* ASA Classification ASA Classification: 4 Assessment & Plan Anesthesia* Anesthesia Assessment Anesthesia Assessment: Discussed sedation and/or anesthesia options, risks, benefits, and alternatives with patient/parents/legal guardian/POA. Questions invited. The patient/parents/legal guardian/POA seems to understand and agrees to proceed with anesthesia plan. Reviewed the physical assessment, medical history, allergy history and patient home medications list prior to surgery/procedure/anesthetic and documented any changes. Performed airway and anesthesia risk assessments. Anesthesia Type Anesthesia Type: MAC Anesthesia Focused Assessment* Temperature: 98.2 F Pulse Rate: 71 Blood Pressure: 136/71 Respiratory Rate: 16 Pulse Ox: 93 Airway Assessment Mouth opens: >3 cm Mallampati Score: II Focused Labs Anesthesia Preop lab: CBC WBC 6.2 K/mm3 (4.4-11.0) 05/20/24 06:10 RBC 4.22 M/mm3 (4.2-5.4) 05/20/24 06:10 Hgb 10.9 g/dL (12.0-15.0) L 05/20/24 06:10 Hct 35.8 % (37-47) L 05/20/24 06:10 Plt Count 258 K/mm3 (150-450) 05/20/24 06:10 CHEMISTRY Potassium 3.8 mmol/L (3.5-5.1) 05/20/24 06:10 Sodium 136 mmol/L (136-145) 05/20/24 06:10 Magnesium 2.0 mg/dL (1.6-2.6) 05/17/24 07:22 Phosphorus 3.6 mg/dL (2.5-4.9) 05/17/24 07:22 BUN 31 mg/dL (7-18) H 05/20/24 06:10 Creatinine 0.78 mg/dL (0.55-1.02) 05/20/24 06:10 Glucose 208 mg/dL (74-106) H 05/20/24 06:10 POC Glucose 180 mg/dL (74-106) H 05/20/24 09:31 TSH 0.13 uIU/mL (0.358-3.74) L 02/22/24 07:17 COAG PT 15.0 SECONDS (11.7-14.9) H 02/22/24 07:17 Pre-Assessment Diagnosis/Proposed Procedure Planned Operative Procedure(s): EXCISION OF LEFT ANKLE WOUND Anesthesia History 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 When Was Last Pacemaker Check QUESTION #4 FULL TEXT: You/Your Family Experience fever (hyperthermia) with Anesthesia Last Oral Intake Last Oral intake: Last Oral Intake NPO since 11:45 05/15/24 13:27 Meds taken in AM with sips of Yes 05/15/24 13:27 water? Meds patient instructed to see chart 05/15/24 13:27 take am of surgery PONV PONV - unified communications architect: PONV - unified communications architect Female Yes 05/14/24 12:28 HX of Motion Sickness No 05/14/24 12:28 HX of N/V After Surgery No 05/14/24 12:28 Non-Smoker No 05/14/24 12:28 Duration of Surgery greater Yes 05/14/24 12:28 than 60 minutes Number of Risk Factors 2 05/14/24 12:28 PONV Score Moderate Risk 05/14/24 12:28 Height & Weight Height & Weight: Anesthesia: Height & Weight Height 5 ft 8 in 05/16/24 15:02 Weight: 104.3 kg 05/16/24 15:02 Body Mass Index (BMI) 34.9 05/15/24 20:05 Respiratory Assessment Respiratory Assessment - unified communications architect: Respiratory Tract Infection Hx - unified communications architect Hx Respiratory Tract Infection No 05/19/24 21:33 STOP Sleep Apnea STOP Sleep Apnea - unified communications architect: STOP Sleep Apnea - unified communications architect Hx Hypertension Yes 05/16/24 11:13 Hx Sleep Apnea Yes 05/20/24 08:56 CPAP No: supposed to use cpap 05/15/24 20:02 BIPAP No 05/15/24 20:02 Do you snore loudly (louder than talking or can be heard Do you often feel tired/ fatigued/ sleepy during daytime? Has anyone observed you stop breathing during sleep? STOP Results Positive 05/15/24 20:02 QUESTION #5 FULL TEXT : Do you snore loudly (louder than talking or can be heard through closed doors)? 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 Specify any problems Hx of Preganancy in last 3 No 05/15/24 20:02 Months Nurse Filling Out Transfusion [id number] 05/15/24 20:02 & Questions: Date: 05/15/24 05/15/24 20:02 Time: 20:02 05/15/24 20:02 Patient unable to answer at this time (ie. confused, unrespo /Reproduction History /Reproductive History - unified communications architect: /Reproductive Hx- unified communications architect Hx Now No 05/19/24 21:33 Gestational Age (in weeks): EDC: Hx Hx Para Hx Section SAB No 05/19/24 21:33 Active Medications Active Medications: Current Medications Generic Name Dose Route Start Last Admin Trade Name Freq PRN Reason Stop Dose Admin Acetaminophen 1,000 mg 05/15/24 17:23 05/19/24 23:17 Acetaminophen 500 Mg Tablet PO 1,000 mg Q6H PRN PRN Administration Pain Score 1-10 Albuterol Sulfate 2.5 mg 05/15/24 17:39 Albuterol 2.5 Mg/3 Ml Vial.Neb. INHALATION Q6H PRN PRN shortness of breath or wheezing Aspirin 81 mg 05/16/24 08:00 05/20/24 09:47 Aspirin E.C. 81 Mg Tablet PO 81 mg DAILYCM RUTH Administration Atorvastatin Calcium 80 mg 05/15/24 22:00 05/19/24 23:21 Atorvastatin Calcium 80 Mg Tablet PO 80 mg QHS RUTH Administration Calamine/Phenol 1 applic 05/15/24 22:00 05/20/24 09:44 Menthol/Lanolin/Calamine/Znox 113 Gm Tube TOPICAL 1 applic BID RUTH Administration Protocol Celecoxib 200 mg 05/16/24 10:00 05/20/24 09:47 Celecoxib 200 Mg Capsule PO 200 mg DAILY RUTH Administration Doxepin HCl 25 mg 05/15/24 22:00 05/19/24 23:20 Doxepin Hcl 25 Mg Capsule PO 25 mg QHS RUTH Administration Enoxaparin Sodium 40 mg 05/16/24 10:00 05/20/24 09:47 Enoxaparin 40 Mg/0.4 Ml Syringe SC 40 mg DAILY RUTH Administration Glimepiride 4 mg 05/16/24 08:00 05/20/24 09:46 Glimepiride 4 Mg Tablet PO 4 mg DAILYCM RUTH Administration Glucagon 1 mg 05/15/24 17:23 Glucagon 1 Mg/Ml Syringe IM X1 PRN HYPOGLYCEMIA Protocol Dextrose 250 mls @ 0 mls/hr 05/15/24 17:23 Dextrose 10%-Water IV .Q0M PRN HYPOGLYCEMIA Protocol As Directed Sodium Chloride 250 mls @ 15 mls/hr 05/15/24 19:48 IV .[id number] PRN Additional IVPB Infusion Doxycycline Hyclate 100 mg/ 260 mls @ 250 mls/hr 05/18/24 10:00 05/20/24 09:51 Dextrose IV 250 mls/hr Q12 RUTH Administration Sodium Chloride 1,000 mls @ 15 mls/hr 05/20/24 06:45 05/20/24 06:48 IV 15 mls/hr .Q48H RUTH Administration Insulin Human Lispro 0 unit 05/15/24 20:00 05/20/24 06:14 Insulin Lispro 100 Unit/Ml Insuln.Pen SC 2 u ACHS RUTH Administration Protocol Levothyroxine Sodium 150 mcg 05/20/24 10:00 05/20/24 09:51 Levothyroxine 150 Mcg Tablet PO 150 mcg DAILY@0600 RUTH Administration Losartan Potassium 100 mg 05/16/24 10:00 05/20/24 09:47 Losartan Potassium 100 Mg Tablet PO 100 mg DAILY RUTH Administration Protocol Metoprolol Succinate 50 mg 05/17/24 10:00 05/20/24 09:50 Metoprolol(Xl)Succ 50 Mg Tablet PO 50 mg DAILY RUTH Administration Protocol Montelukast Sodium 10 mg 05/16/24 10:00 05/20/24 09:48 Montelukast 10 Mg Tablet PO 10 mg DAILY RUTH Administration Morphine Sulfate 2 - 4 mg 05/15/24 17:23 Morphine 2 Mg/Ml Syringe IV Q3H PRN PRN Pain Score 6-10 Morphine Sulfate 2 - 4 mg 05/15/24 17:40 Morphine 4 Mg/Ml Syringe IV Q3H PRN PRN Pain Score 6-10 Multivitamins 1 cap 05/16/24 08:00 05/20/24 09:46 Vitamin B Comp W-C Capsule PO 1 cap DAILYCM RUTH Administration Nitroglycerin 0.4 mg 05/15/24 17:23 Nitroglycerin (Inpatient Use) 0.4 Mg Tab.Subl SL Q5M PRN CARDIAC/CHEST PAIN Nystatin 1 applic 05/20/24 10:00 05/20/24 09:51 Nystatin Powder 15gm Bottle TOPICAL 1 applic BID RUTH Administration Protocol Ondansetron HCl 4 mg 05/15/24 17:23 Ondansetron 4 Mg/2 Ml Vial IV Q8H PRN PRN NAUSEA/VOMITING Oxycodone HCl 5 mg 05/15/24 17:23 05/19/24 23:17 Oxycodone 5 Mg Tablet PO 5 mg Q4H PRN PRN Administration Pain Score 6-10 Or Pre Pt/Ot Pantoprazole Sodium 40 mg 05/16/24 10:00 05/20/24 09:48 Pantoprazole Sodium 40 Mg Tablet PO 40 mg DAILY RUTH Administration Paroxetine HCl 40 mg 05/16/24 10:00 05/20/24 09:48 Paroxetine 20 Mg Tablet PO 40 mg DAILY RUTH Administration Potassium Chloride 20 meq 05/16/24 08:00 05/20/24 09:47 Potassium Chloride Oral Tablet 20 Meq PO 20 meq DAILYCM RUTH Administration Pregabalin 150 mg 05/15/24 22:00 05/20/24 06:13 Pregabalin 75 Mg Capsule PO 150 mg TID RUTH Administration Sodium Chloride 10 - 40 ml 05/15/24 19:48 05/20/24 10:00 0.9% Saline Lock 10 Ml Syringe IV 10 ml UD PRN Administration SALINE FLUSH Trazodone HCl 150 mg 05/15/24 22:00 05/19/24 23:20 Trazodone 100 Mg Tablet PO 150 mg QHS RUTH Administration PFSH Medical History Open wound Current use of insulin Post-menopausal Hiatal hernia Back pain due to injury Osteoporosis Sleep apnea Insulin dependent diabetes mellitus Easy bruising Restless legs Difficulty swallowing Tachycardia Smoker Wears dentures Wears glasses Anxiety Iron deficiency Back pain Dietary restriction GERD (gastroesophageal reflux disease) Shortness of breath Asthma CPAP (continuous positive airway pressure) dependence Leg cramping History of pain when walking Edema Cardiology follow-up encounter History of stress test Normal echocardiogram Hypertension Difficulty balancing when standing Asthma Arthritis Fibromyalgia Multinodular thyroid Hypothyroidism Essential (primary) hypertension Hypergammaglobulinemia Hyperlipemia Dermatitis Depression PAD (peripheral artery disease) Other specified peripheral vascular diseases Hammertoe of left foot Skin ulcer of right foot including toes with fat layer exposed Osteomyelitis of toe Morbid obesity with BMI of 40.0-44.9, adult Diabetes type 2, uncontrolled Venous stasis dermatitis of both lower extremities Home Medications ?Medication ?Instructions ?Recorded ?Last Taken ?Type omeprazole 40 mg capsule,delayed 40 mg PO DAILY ACID REFLUX 10/18/18 05/14/24 History release paroxetine HCl 40 mg tablet 40 mg PO DAILY DEPRESSION 10/29/19 05/14/24 History pregabalin 150 mg capsule 150 mg PO TID NERVE PAIN 10/29/19 05/14/24 History aspirin 81 mg tablet,delayed 81 mg PO DAILY HEART HEALTH 07/21/20 05/08/24 History release (Adult Low Dose Aspirin) metoprolol succinate 200 mg 200 mg PO DAILY BLOOD PRESSURE 07/21/20 05/14/24 History tablet,extended release 24 hr rosuvastatin 40 mg tablet (Crestor) 40 mg PO DAILY CHOLESTEROL 08/26/22 05/14/24 History pen needle, diabetic 32 gauge x #100 ea 02/13/23 Unknown Rx (BD Ultra-Fine [place]ina Pen Needle) dapagliflozin propanediol 10 mg 10 mg PO DAILY DIABETES 03/01/23 05/14/24 History tablet (Farxiga) losartan 100 mg tablet 100 mg PO DAILY BLOOD PRESSURE 03/01/23 05/14/24 History blood sugar diagnostic (True #100 ea 03/24/23 Unknown Rx Metrix Glucose Test Strip) glimepiride 4 mg tablet 4 mg PO DAILY diabetes #30 tabs 04/10/23 05/14/24 Rx insulin aspart 10 unit subcut TID diabetes #9 mL 05/29/23 02/26/24 Rx (niacinamide)(U-100) 100 unit/mL(3 mL) subcutaneous pen (Fiasp FlexTouch U-100 Insulin) albuterol sulfate 90 mcg/actuation 1 puff inhalation Q6H PRN PRN 01/19/24 05/12/24 History aerosol inhaler shortness of breath or wheezing tirzepatide 7.5 mg/0.5 mL 7.5 mg subcut QWEEK diabetes 01/19/24 04/29/24 History subcutaneous pen injector (Rex) celecoxib 200 mg capsule 200 mg PO DAILY pain 02/21/24 05/14/24 History doxepin 25 mg capsule 25 mg PO QHS sleep 02/21/24 05/14/24 History levothyroxine 150 mcg tablet 150 mcg PO DAILY hypothyroid 02/21/24 05/14/24 History montelukast 10 mg tablet 10 mg PO DAILY allergies/asthma 02/21/24 05/14/24 History potassium chloride 20 mEq 20 meq PO DAILY potassium 02/21/24 05/14/24 History tablet,extended supplement release(part/cryst) (Klor-Con M) trazodone 150 mg tablet 150 mg PO QHS sleep 02/21/24 05/14/24 History acetaminophen 500 mg tablet 1,000 mg (2 x 500 mg) PO Q6H PRN 04/02/24 Unknown Rx PRN Pain Score 1-3 #0 tabs arginine 7 gram-glutam 7 1 packet PO BIDCM 30 days #60 ea 04/02/24 Unknown Rx gram-CaHMB 1.5 [id number]-pd-min oral pwd pkt (Drew (with collagen)) oxycodone 5 mg tablet 5 mg PO Q4H PRN PRN Pain Score 04/02/24 05/14/24 Rx 6-10 Or Pre Pt/Ot 7 days #42 tabs vitamin B complex (Vitamins B 1 cap PO DAILY 05/15/24 05/14/24 History Complex capsule) Allergy/AdvReac Type Severity Reaction Status Date / Time piperacillin (From Zosyn) Allergy Severe Anaphylaxis Verified 05/15/24 13:21 tazobactam (From Zosyn) Allergy Severe Anaphylaxis Verified 05/15/24 13:21 sulfamethoxazole (From Allergy Unknown Anaphylaxis Verified 05/15/24 13:21 Bactrim) trimethoprim (From Bactrim) Allergy Unknown Anaphylaxis Verified 05/15/24 13:21 latex Allergy Rash Verified 05/15/24 13:21 pyrethrins Allergy Anaphylaxis Verified 05/15/24 13:21 tetanus and diphtheria Allergy Anaphylaxis Verified 05/15/24 13:21 toxoids (Tetanus&Diphtheria Toxoid) Family History Mother Diabetes Dementia Father Diabetes Myocardial infarction Surgical History Hx of toe surgery History of partial ray amputation of fifth toe of right foot Hx of total knee arthroplasty History of nasal septoplasty History of cholecystectomy History of thyroidectomy H/O arthroscopic knee surgery (11/2019) H/O amputation of lesser toe (05/05/17) Social History household members: none Smoking Status: Current some day smoker tobacco type: e-cigarettes alcohol intake: current alcohol intake frequency: holidays/special occasions only substance use type: does not use Review of Systems (Anesthesia) ROS Narrative System reviewed and no additional complaints, except as documented.
[2024-05-20] MEDS: Bupiv/Epi 0.25% 30 ML Vial (08:23)
--- NOTE | 2024-05-20 09:02 | PCM.OP.BLANK ---
Operative Report Date of Procedure: 05/20/24 Surgery/Procedure Date: 20 May 2024 Incision/Procedure Start Time: 8 am Incision Close/Procedure End Time: 8 25 am (25 min) PATIENT: Dewey Beltran SURGEON: Victorino Solano MD CO-SURGEON: none PRE-OPERATIVE DIAGNOSIS: Left posterior ankle wound over Achilles tendon repair POST-OPERATIVE DIAGNOSIS: Same PROCEDURE PERFORMED: 1) Excision of left posterior ankle wound, including biofilm, subcutaneous tissue, fascia, and tendon, 7 x 3 cm (CPT: 11587, 38458) 2) Irrigating wound VAC, vera flow, not disposable, less than 50 cm? (CPT: 76452) OPERATIVE FINDINGS: Overall healthy appearing except for some necrotic/devitalized tendon portions inferiorly that were frayed. INDICATIONS: Patient is a 58-year-old female who underwent an Achilles tendon reconstruction with podiatry with loss of soft tissue over the reconstruction and wound breakdown. Vascular surgery reported good blood flow to heal the wound. She has had an irrigating VAC on the wound x 5 days. Presents today for another washout and debridement (OR cultures from 5 days ago growing Staphlococcus areus). Patient understands risks and benefits of surgery, including failure to obtain the desired result and need for repeat surgeries, as well as risks of anesthesia including . OPERATIVE DETAILS: Patient was correct identified in preoperative holding. I marked the patient's left leg. She was taken back to the operating room where she was administered general anesthesia after timeout was performed. She was flipped in a supine position and care was taken to pad her bony prominences. Her leg was prepped and draped in sterile fashion. We began the procedure by excising the necrotic edges of the Achilles tendon with a curved Saucedo scissors. I then took a 10 blade scalpel and excised skin and subcutaneous tissue and biofilm as well from the wound edges for 7 x 3 cm excision of wound. Hemostasis was obtained with Bovie electrocautery and the local block (epinephrine and Marcaine). The patient tolerated the procedure well. 500 cc of Irrisept was then used to irrigate the wound as well as 3 L of normal saline. A soft tissue culture was also sent. An irrigating wound VAC was applied for a less than 50 cm? irrigating wound VAC not disposable. Anesthesia: General anesthesia in the supine position with 10 cc of 0.25% Marcaine with 1-200,000 epinephrine for local block ASA 3 IV fluids: 500 cc of NS Urine output: Unmeasured, no Song EBL: 5 cc Specimens: Repear deep soft tissue culture POST-OPERATIVE PLAN: Patient will continue as inpatient with vera flow wound VAC. Plan will be for return to the OR on 22 May 2024, for repeat washout debridement and possible dermal substitute placement (Integra).
[2024-05-20] MEDS: Menthol/Lanolin/Calamine/Znox 113 GM Tube 1 APPLIC TOPICAL ×2 (09:44→20:46)
[2024-05-20] MEDS: Vitamin B Comp W-C Capsule 1 CAP PO (09:46)
[2024-05-20] MEDS: Glimepiride 4 MG Tablet PO (09:46)
[2024-05-20] MEDS: Potassium Chloride Oral Tablet 20 MEQ PO (09:47)
[2024-05-20] MEDS: Aspirin E.C. 81 MG Tablet PO (09:47)
[2024-05-20] MEDS: Losartan Potassium 100 MG Tablet PO (09:47)
[2024-05-20] MEDS: Celecoxib 200 MG Capsule PO (09:47)
[2024-05-20] MEDS: Enoxaparin 40 MG/0.4 ML Syringe SC (09:47)
[2024-05-20] MEDS: Pantoprazole Sodium 40 MG Tablet PO (09:48)
[2024-05-20] MEDS: Montelukast 10 MG Tablet PO (09:48)
[2024-05-20] MEDS: Paroxetine 20 MG Tablet 40 MG PO (09:48)
[2024-05-20] MEDS: Metoprolol(XL)Succ 50 MG Tablet PO (09:50)
[2024-05-20 09:51] LABS: Bedside Glucose 180 mg/dL (74-106)
[2024-05-20] MEDS: Doxycycline 100 MG in Dextrose 5%-Water (250mL Bag) 250 ML 250 MG IV (09:51)
[2024-05-20] MEDS: Nystatin Powder 15gm Bottle 1 APPLIC TOPICAL ×2 (09:51→22:14)
[2024-05-20] MEDS: Levothyroxine 150 MCG Tablet PO (09:51)
--- NOTE | 2024-05-20 09:56 | PCM.POST.ANE ---
Anesthesia: Postop Eval I Current Vital Signs Temperature: 98.2 F Pulse Rate: 71 Blood Pressure: 136/71 Respiratory Rate: 16 Pulse Ox: 93 Oxygen Delivery Method: Nasal Cannula Oxygen Flow Rate (L/min): 2 Assessment Airway patent: Yes Spontaneous unlabored respirations: Yes Mental status: Awake and Calm nausea: No Vomiting: No Anesthesia Complication: No Fluid Hydration Crystalloid volume administer (ml): 500 Total IV fluid infused: 500 Progress Note Anesthesia document: Postop Eval 1 completed: Yes
[2024-05-20] MEDS: 0.9% Saline Lock 10 ML Syringe IV ×2 (10:00→22:07)
--- NOTE | 2024-05-20 10:08 | PCM.PN.HOSP ---
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 (05/15/24) Other specified disorders of synovium and tendon, other site (05/15/24) Superficial foreign body, left lower leg, initial encounter (05/15/24) Unspecified open wound, left ankle, initial encounter (05/15/24) Other injury of unspecified body region, initial encounter (05/15/24) prison (current) use of insulin (05/15/24) Subjective Subjective Feeling fair today, no significant pain, has not had bowel movement in several days but no nausea or abdominal pain, denies problems with urination, no chest pain or shortness of breath Objective Data Objective Data Vital Signs: Vital Signs Temp Pulse Resp BP Pulse Ox O2 Del Method O2 Flow Rate 97.9 F 71 16 107/59 L 99 Room Air 3 05/20/24 14:01 05/20/24 14:01 05/20/24 14:01 05/20/24 14:01 05/20/24 14:01 05/20/24 14:01 05/20/24 11:11 Oxygen Flow Rate (L/min) 3 Oxygen Delivery Method Room Air Weight: 104.3 kg Body Mass Index (BMI) 34.9 Intake & Output: Intake and Output for Last 24 Hours 05/18/24 05/19/24 05/20/24 23:59 23:59 23:59 Intake Total 1820 / 1820 1110 / 1110 604.75 / 604.75 Output Total 1400 / 1400 1000 / 1000 2200 / 2200 Balance 420 / 420 110 / 110 -1595.25 / -1595.25 Lab / Micro Data 05/20/24 06:10 05/20/24 06:10 Labs: Laboratory Results - last 24 hr 05/19/24 16:05: POC Glucose 289 H 05/19/24 23:15: POC Glucose 329 H 05/20/24 06:10: WBC 6.2, RBC 4.22, Hgb 10.9 L, Hct 35.8 L, MCV 84.8, MCH 25.8 L, MCHC 30.4 L, RDW Std Deviation 43.8, RDW Coeff of Kami 14.4, Plt Count 258, MPV 9.0, Sodium 136, Potassium 3.8, Chloride 101, Carbon Dioxide 31.0, Anion Gap 4 L, BUN 31 H, Creatinine 0.78, Estim Creat Clear Calc 98.15, Est GFR (MDRD) Af Amer 98, Est GFR (MDRD) Non-Af 81, BUN/Creatinine Ratio 39.9 H, Glucose 208 H, Calcium 8.7 05/20/24 06:12: POC Glucose 184 H 05/20/24 09:31: POC Glucose 180 H 05/20/24 11:18: POC Glucose 214 H Micro: Microbiology 05/20/24 08:21 Tissue - Left Foot Gram Stain - Final 05/15/24 Unknown Tissue - Ankle Gram Stain - Final 05/15/24 Unknown Tissue - Ankle Wound Culture - Final Staphylococcus aureus 05/15/24 Unknown Tissue - Ankle Anaerobic Culture - Final Anaerobic cocci Physical Exam Narrative General: Alert, oriented, no apparent distress HEENT: Atraumatic, normocephalic Eyes: Anicteric, normal conjunctiva, extraocular movements grossly intact Neck: Supple Respiratory: Clear to auscultation bilaterally, normal respiratory effort Cardiovascular: Regular rate and rhythm GI: Soft, nontender, nondistended Extremities: No significant pitting edema Musculoskeletal: Moving all extremities, left lower extremity wrapped Neuro: No overt focal neurological deficits Skin: Left lower extremity wrapped Psych: Cooperative Assessment & Plan Assessment/Plan (1) Wound of left ankle: PLAN: Plan # Left posterior ankle wound over Achilles tendon -Had debridement and wound VAC 05/15/24 with plastic surgery and podiatry -Wound growing MSSA -Patient back to the OR today 05/20 for wound VAC change and repeat debridement -Patient to go back to the OR Monday and if repeat cultures are negative and wound improving will have graft application and wound VAC and will likely be able to DC after that time -ID following, antibiotics changed to p.o. Doxy and cefdinir and Flagyl #Type 2 diabetes mellitus -Glucose checks and sliding scale insulin -Also had been continued on home glimepiride -A1c 6.9 on 05/09/2024 #Hypothyroidism -Continue Synthroid #Hypertension -Fairly well-controlled, presently on metoprolol and losartan # Depression -Continue Paxil and doxepin # Chronic normocytic anemia -Appears to be at baseline # Diabetic neuropathy -Continue Lyrica and managing underlying diabetes #DVT ppx: Lovenox subcu Ama Spring MD Time spent in the patient's overall evaluation,decision-making process, review of diagnostic data, adjustment of management, discussion with other providers, nursing nursing and ancillary staff involved in patient's care documentation, 36 minutes Charges/Coding Visit Charges Inpatient E&M: 75805 Subs Hosp L2
--- NOTE | 2024-05-20 10:11 | POSTOPAN2_ITS ---
Anesthesia Postop Eval I Sum Postop Eval Completion status Anesthesia document: Postop Eval 1 completed: Yes Anesthesia Postop Eval I Summary Anesthesia Postop Eval I Summary: Anesthesia Postop Eval I: Assessment Summary Airway patent Yes 05/20/24 09:57 IT RISK AND ASSURANCE MANAGER.MDOT Spontaneous unlabored Yes 05/20/24 09:57 IT RISK AND ASSURANCE MANAGER.OT respirations Mental status Awake,Calm 05/20/24 09:57 IT RISK AND ASSURANCE MANAGER.MDOT nausea No 05/20/24 09:57 IT RISK AND ASSURANCE MANAGER.MDOT Vomiting No 05/20/24 09:57 IT RISK AND ASSURANCE MANAGER.MDOT Anesthesia Postop Eval I: Fluid Summary Crystalloid volume administer 500 05/20/24 09:57 IT RISK AND ASSURANCE MANAGER.MDOT (ml) Colloids volume administered ( ml) Blood Product volume administered (ml) Total IV fluid infused 500 05/20/24 09:57 IT RISK AND ASSURANCE MANAGER.OT Anesthesia Postop Eval I: Summary Notes Anesthesia Complication No 05/20/24 09:57 IT RISK AND ASSURANCE MANAGER.OT Anesthesia Complication Comment: Post-operative progress note Anesthesia: Postop Eval II Evaluation Mental status: Awake Pain Level: 0 nausea: No Vomiting: No
--- NOTE | 2024-05-20 10:11 | PCM.POSTANE2 ---
Anesthesia Postop Eval I Sum Postop Eval Completion status Anesthesia document: Postop Eval 1 completed: Yes Anesthesia Postop Eval I Summary Anesthesia Postop Eval I Summary: Anesthesia Postop Eval I: Assessment Summary Airway patent Yes 05/20/24 09:57 SOFTWARE [email or web address] Spontaneous unlabored Yes 05/20/24 09:57 SOFTWARE [email or web address] respirations Mental status Awake,Calm 05/20/24 09:57 SOFTWARE [email or web address] nausea No 05/20/24 09:57 SOFTWARE [email or web address] Vomiting No 05/20/24 09:57 SOFTWARE [email or web address] Anesthesia Postop Eval I: Fluid Summary Crystalloid volume administer 500 05/20/24 09:57 SOFTWARE [email or web address] (ml) Colloids volume administered ( ml) Blood Product volume administered (ml) Total IV fluid infused 500 05/20/24 09:57 SOFTWARE INTERN.OT Anesthesia Postop Eval I: Summary Notes Anesthesia Complication No 05/20/24 09:57 SOFTWARE INTERN.[email or web address] Anesthesia Complication Comment: Post-operative progress note Anesthesia: Postop Eval II Evaluation Mental status: Awake Pain Level: 0 nausea: No Vomiting: No
[2024-05-20 11:41] LABS: Bedside Glucose 214 mg/dL (74-106)
--- NOTE | 2024-05-20 12:39 | CASEMGMT ---
SID CM updated [facility] on plan for pt for repeat surgery on Monday. SID MENON to follow.
--- NOTE | 2024-05-20 13:12 | POSTOPAN2_ITS ---
Anesthesia Postop Eval I Sum Postop Eval Completion status Anesthesia document: Postop Eval 1 completed: Yes Anesthesia Postop Eval I Summary Anesthesia Postop Eval I Summary: Anesthesia Postop Eval I: Assessment Summary Airway patent Yes 05/20/24 09:57 SOLAR ENERGY SALES SPECIALISTWEN Spontaneous unlabored Yes 05/20/24 09:57 SOLAR ENERGY SALES SPECIALISTWEN respirations Mental status Awake 05/20/24 10:11 nausea No 05/20/24 10:11 Vomiting No 05/20/24 10:11 Anesthesia Postop Eval I: Fluid Summary Crystalloid volume administer 500 05/20/24 09:57 SOLAR ENERGY SALES SPECIALISTWEN (ml) Colloids volume administered ( ml) Blood Product volume administered (ml) Total IV fluid infused 500 05/20/24 09:57 SOLAR ENERGY SALES SPECIALISTWEN Anesthesia Postop Eval I: Summary Notes Anesthesia Complication No 05/20/24 09:57 SOLAR ENERGY SALES SPECIALISTWEN Anesthesia Complication Comment: Post-operative progress note Anesthesia: Postop Eval II Evaluation Mental status: Awake Pain Level: 0 nausea: No Vomiting: No
--- NOTE | 2024-05-20 13:12 | PCM.POSTANE2 ---
Anesthesia Postop Eval I Sum Postop Eval Completion status Anesthesia document: Postop Eval 1 completed: Yes Anesthesia Postop Eval I Summary Anesthesia Postop Eval I Summary: Anesthesia Postop Eval I: Assessment Summary Airway patent Yes 05/20/24 09:57 WELL DRILL OPERATOR HELPER CABLE TOOLWEN Spontaneous unlabored Yes 05/20/24 09:57 WELL DRILL OPERATOR HELPER CABLE TOOLWEN respirations Mental status Awake 05/20/24 10:11 nausea No 05/20/24 10:11 Vomiting No 05/20/24 10:11 Anesthesia Postop Eval I: Fluid Summary Crystalloid volume administer 500 05/20/24 09:57 WELL DRILL OPERATOR HELPER CABLE TOOLWEN (ml) Colloids volume administered ( ml) Blood Product volume administered (ml) Total IV fluid infused 500 05/20/24 09:57 WELL DRILL OPERATOR HELPER CABLE TOOLWEN Anesthesia Postop Eval I: Summary Notes Anesthesia Complication No 05/20/24 09:57 WELL DRILL OPERATOR HELPER CABLE TOOLWEN Anesthesia Complication Comment: Post-operative progress note Anesthesia: Postop Eval II Evaluation Mental status: Awake Pain Level: 0 nausea: No Vomiting: No
[2024-05-20] MEDS: oxyCODONE 5 MG Tablet PO ×2 (14:13→22:11)
[2024-05-20] MEDS: Acetaminophen 500 MG Tablet 1000 MG PO ×2 (14:13→22:11)
--- NOTE | 2024-05-20 14:14 | PCM.CONS.GEN ---
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 Taken to OR 05/15/[address] Smith and Dr. Solano for I&D and wound vac placement. Feeling ok. Surg cx with mssa and anaerobes, on doxy. Will change to po doxy and add cefdinir and flagyl. Has tolerated cefepime here 02/2024. Will follow, thank you HPI Consult Data Date of Consult: 05/20/24 HPI Narrative Reason for Consultation: infected L heel ulcer HPI Narrative: REMI TREVINO, is a 58 F with h/o htn, DM, and several months of L heel ulcer after Achilles tendon repair. Has had some increasing pain, redness at the site. Admitted, taken to OR 05/15/[address] Smith and Dr. Solano for I&D and wound vac placement. Feeling ok. Surg cx with mssa, on doxy. Feeling better, no fever, no n/v/d. Full ROS performed and neg except as noted above. [facility] Medical History Open wound Current use of insulin Post-menopausal Hiatal hernia Back pain due to injury Osteoporosis Sleep apnea Insulin dependent diabetes mellitus Easy bruising Restless legs Difficulty swallowing Tachycardia Smoker Wears dentures Wears glasses Anxiety Iron deficiency Back pain Dietary restriction GERD (gastroesophageal reflux disease) Shortness of breath Asthma CPAP (continuous positive airway pressure) dependence Leg cramping History of pain when walking Edema Cardiology follow-up encounter History of stress test Normal echocardiogram Hypertension Difficulty balancing when standing Asthma Arthritis Fibromyalgia Multinodular thyroid Hypothyroidism Essential (primary) hypertension Hypergammaglobulinemia Hyperlipemia Dermatitis Depression PAD (peripheral artery disease) Other specified peripheral vascular diseases Hammertoe of left foot Skin ulcer of right foot including toes with fat layer exposed Osteomyelitis of toe Morbid obesity with BMI of 40.0-44.9, adult Diabetes type 2, uncontrolled Venous stasis dermatitis of both lower extremities Home Medications ?Medication ?Instructions ?Recorded ?Last Taken ?Type omeprazole 40 mg capsule,delayed 40 mg PO DAILY ACID REFLUX 10/18/18 05/14/24 History release paroxetine HCl 40 mg tablet 40 mg PO DAILY DEPRESSION 10/29/19 05/14/24 History pregabalin 150 mg capsule 150 mg PO TID NERVE PAIN 10/29/19 05/14/24 History aspirin 81 mg tablet,delayed 81 mg PO DAILY HEART HEALTH 07/21/20 05/08/24 History release (Adult Low Dose Aspirin) metoprolol succinate 200 mg 200 mg PO DAILY BLOOD PRESSURE 07/21/20 05/14/24 History tablet,extended release 24 hr rosuvastatin 40 mg tablet (Crestor) 40 mg PO DAILY CHOLESTEROL 08/26/22 05/14/24 History pen needle, diabetic 32 gauge x #100 ea 02/13/23 Unknown Rx (BD Ultra-Fine Catalina Pen Needle) dapagliflozin propanediol 10 mg 10 mg PO DAILY DIABETES 03/01/23 05/14/24 History tablet (Farxiga) losartan 100 mg tablet 100 mg PO DAILY BLOOD PRESSURE 03/01/23 05/14/24 History blood sugar diagnostic (True #100 ea 03/24/23 Unknown Rx Metrix Glucose Test Strip) glimepiride 4 mg tablet 4 mg PO DAILY diabetes #30 tabs 04/10/23 05/14/24 Rx insulin aspart 10 unit subcut TID diabetes #9 mL 05/29/23 02/26/24 Rx (niacinamide)(U-100) 100 unit/mL(3 mL) subcutaneous pen (Fiasp FlexTouch U-100 Insulin) albuterol sulfate 90 mcg/actuation 1 puff inhalation Q6H PRN PRN 01/19/24 05/12/24 History aerosol inhaler shortness of breath or wheezing tirzepatide 7.5 mg/0.5 mL 7.5 mg subcut QWEEK diabetes 01/19/24 04/29/24 History subcutaneous pen injector (Rex) celecoxib 200 mg capsule 200 mg PO DAILY pain 02/21/24 05/14/24 History doxepin 25 mg capsule 25 mg PO QHS sleep 02/21/24 05/14/24 History levothyroxine 150 mcg tablet 150 mcg PO DAILY hypothyroid 02/21/24 05/14/24 History montelukast 10 mg tablet 10 mg PO DAILY allergies/asthma 02/21/24 05/14/24 History potassium chloride 20 mEq 20 meq PO DAILY potassium 02/21/24 05/14/24 History tablet,extended supplement release(part/cryst) (Klor-Con M) trazodone 150 mg tablet 150 mg PO QHS sleep 02/21/24 05/14/24 History acetaminophen 500 mg tablet 1,000 mg (2 x 500 mg) PO Q6H PRN 04/02/24 Unknown Rx PRN Pain Score 1-3 #0 tabs arginine 7 gram-glutam 7 1 packet PO BIDCM 30 days #60 ea 04/02/24 Unknown Rx gram-CaHMB 1.5 pbqi-kmgul-md-min oral pwd pkt (Drew (with collagen)) oxycodone 5 mg tablet 5 mg PO Q4H PRN PRN Pain Score 04/02/24 05/14/24 Rx 6-10 Or Pre Pt/Ot 7 days #42 tabs vitamin B complex (Vitamins B 1 cap PO DAILY 05/15/24 05/14/24 History Complex capsule) Allergy/AdvReac Type Severity Reaction Status Date / Time piperacillin (From Zosyn) Allergy Severe Anaphylaxis Verified 05/15/24 13:21 tazobactam (From Zosyn) Allergy Severe Anaphylaxis Verified 05/15/24 13:21 sulfamethoxazole (From Allergy Unknown Anaphylaxis Verified 05/15/24 13:21 Bactrim) trimethoprim (From Bactrim) Allergy Unknown Anaphylaxis Verified 05/15/24 13:21 latex Allergy Rash Verified 05/15/24 13:21 pyrethrins Allergy Anaphylaxis Verified 05/15/24 13:21 tetanus and diphtheria Allergy Anaphylaxis Verified 05/15/24 13:21 toxoids (Tetanus&Diphtheria Toxoid) Family History Mother Diabetes Dementia Father Diabetes Myocardial infarction Surgical History Hx of toe surgery History of partial ray amputation of fifth toe of right foot Hx of total knee arthroplasty History of nasal septoplasty History of cholecystectomy History of thyroidectomy H/O arthroscopic knee surgery (11/2019) H/O amputation of lesser toe (05/05/17) Social History household members: none Smoking Status: Current some day smoker tobacco type: e-cigarettes alcohol intake: current alcohol intake frequency: holidays/special occasions only substance use type: does not use Physical Exam Const alert, oriented x3 and no apparent distress General Appearance: cooperative and well developed HEENT normocephalic and head/scalp atraumatic Eyes PERRL and EOMs intact bilaterally Neck supple and No nodes Resp normal air movement and clear to auscultation bilaterally Cardio regular rate and regular rhythm GI soft to palpation, non-tender and non-distended Extremity General Extremity: edema Skin Skin Narrative: L heel wound vac in place Neuro CN's II-XII intact bilaterally Lab / Micro Data Attestation: I reviewed the patient's lab results. 05/20/24 06:10 05/20/24 06:10 Labs: Laboratory Results - last 24 hr 05/19/24 16:05: POC Glucose 289 H 05/19/24 23:15: POC Glucose 329 H 05/20/24 06:10: WBC 6.2, RBC 4.22, Hgb 10.9 L, Hct 35.8 L, MCV 84.8, MCH 25.8 L, MCHC 30.4 L, RDW Std Deviation 43.8, RDW Coeff of Kami 14.4, Plt Count 258, MPV 9.0, Sodium 136, Potassium 3.8, Chloride 101, Carbon Dioxide 31.0, Anion Gap 4 L, BUN 31 H, Creatinine 0.78, Estim Creat Clear Calc 98.15, Est GFR (MDRD) Af Amer 98, Est GFR (MDRD) Non-Af 81, BUN/Creatinine Ratio 39.9 H, Glucose 208 H, Calcium 8.7 05/20/24 06:12: POC Glucose 184 H 05/20/24 09:31: POC Glucose 180 H 05/20/24 11:18: POC Glucose 214 H Micro: Microbiology 05/15/24 Unknown Tissue - Ankle Gram Stain - Final 05/15/24 Unknown Tissue - Ankle Wound Culture - Final Staphylococcus aureus 05/15/24 Unknown Tissue - Ankle Anaerobic Culture - Final Anaerobic cocci
--- NOTE | 2024-05-20 14:40 | ANES.CONFIRM ---
Anesthesia: Confirm Documents Multiple Procedures on Account (2) Confirmed Documents: Yes
[2024-05-20] MEDS: Polyethylene Glycol 3350 17 GM PACKET PO ×2 (15:13→22:08)
[2024-05-20] MEDS: Senna/Docusate Sodium 1 Tablet 2 TABLET PO (15:13)
[2024-05-20 16:47] LABS: Bedside Glucose 299 mg/dL (74-106)
[2024-05-20] MEDS: traZODone 100 MG Tablet 150 MG PO (22:07)
[2024-05-20] MEDS: metroNIDAZOLE 500 MG Tablet PO (22:08)
[2024-05-20] MEDS: Doxycycline 100 MG CAPSULE PO (22:08)
[2024-05-20] MEDS: Cefdinir 300 MG Capsule PO (22:08)
[2024-05-20] MEDS: Doxepin Hcl 25 MG Capsule PO (22:09)
[2024-05-20] MEDS: Atorvastatin Calcium 80 MG Tablet PO (22:11)
[2024-05-20 23:03] LABS: Bedside Glucose 301 mg/dL (74-106)
[2024-05-21 05:07] VITALS: BP 107/64; PULSE 64; RESP 18; TEMP 36.3; O2SAT 100
[2024-05-21] MEDS: Levothyroxine 150 MCG Tablet PO (05:08)
[2024-05-21] MEDS: metroNIDAZOLE 500 MG Tablet PO ×3 (05:08→22:54)
[2024-05-21] MEDS: Pregabalin 75 MG Capsule 150 MG PO ×3 (05:08→23:07)
[2024-05-21] MEDS: Senna/Docusate Sodium 1 Tablet 2 TABLET PO ×2 (05:10→18:02)
[2024-05-21] MEDS: Insulin Lispro 100 UNIT/ML INSULN.PEN SC ×4 (06:38→23:00)
[2024-05-21 06:53] LABS: Absolute Lymphocyte Count 2.38 X10^3/uL (0.83-4.51); Absolute Neutrophil Count 3.9 X10^3/uL (2.0-7.7); Basophil# 0.03 X10^3/uL; Basophil% 0.4 % (0-1); Eosinophil# 0.24 X10^3/uL; Eosinophils% 3.3 % (0-5); Hematocrit 35.2 % (37-47); Hemoglobin 10.6 g/dL (12.0-15.0); Lymphocyte # 2.38 X10^3/ul (0.83-4.51); Lymphocyte % 32.7 % (19-41); Mean Corp Hgb Conc 30.1 g/dL (32-36); Mean Corpuscular Hgb 25.7 pg (27.0-32.0); Mean Corpuscular Volume 85.2 fL (81-99); Mean Platelet Vol. 9.2 fl (6.2-12.0); Monocyte# 0.65 X10^3/uL; Monocyte% 8.9 % (0-10); NRBC Flagged by Analyzer 0 % (0-5); Neutrophil # 3.91 X10^3/uL (2.7-7.7); Neutrophil % 53.9 % (47-70); Platelet Count 231 K/mm3 (150-450); RBC Distribution Width CV 14.6 % (11.6-14.6); RBC Distribution Width SD 44.5 fl (35.1-43.9); Red Blood Count 4.13 M/mm3 (4.2-5.4); White Blood Count 7.3 K/mm3 (4.4-11.0)
[2024-05-21 07:00] LABS: Bedside Glucose 267 mg/dL (74-106)
[2024-05-21 07:44] LABS: Anion Gap 6 (5-15); BUN 29 mg/dL (7-18); BUN/Creat Ratio 40.2 RATIO (10-20); Calcium,Total 8.5 mg/dL (8.5-10.1); Chloride 104 mmol/L (98-107); Creatinine, Serum 0.72 mg/dL (0.55-1.02); EST Glomerular Filtration Rate 88 mL/min (>60); Est Glom Filt Rate - Afr Amer 106 mL/min (>60); Estimated Creatinine Clearance 106.33 ml/min; Glucose 248 mg/dL (74-106); Potassium 4.3 mmol/L (3.5-5.1); Sodium Level 136 mmol/L (136-145)
--- NOTE | 2024-05-21 08:26 | WOUNDNOTE ---
Wound VAC dressing intact to the left Achilles area. good seal noted at 125mmHg. plan is for another surgery tomorrow per Dr Solano. Working on getting home VAC approved through [facility] prior to surgery tomorrow.
[2024-05-21] MEDS: Glimepiride 4 MG Tablet PO (08:58)
[2024-05-21] MEDS: Pantoprazole Sodium 40 MG Tablet PO (08:58)
[2024-05-21] MEDS: Aspirin E.C. 81 MG Tablet PO (09:03)
[2024-05-21] MEDS: Cefdinir 300 MG Capsule PO ×2 (09:03→22:54)
[2024-05-21] MEDS: Enoxaparin 40 MG/0.4 ML Syringe SC (09:04)
[2024-05-21] MEDS: Menthol/Lanolin/Calamine/Znox 113 GM Tube 1 APPLIC TOPICAL ×2 (09:04→22:54)
[2024-05-21] MEDS: Potassium Chloride Oral Tablet 20 MEQ PO (09:04)
[2024-05-21] MEDS: Paroxetine 20 MG Tablet 40 MG PO (09:04)
[2024-05-21] MEDS: Montelukast 10 MG Tablet PO (09:04)
--- NOTE | 2024-05-21 09:06 | PCM.PN.SRG ---
Subjective Subjective Doing well today. Understands plan for surgery tomorrow with possible dermal substitute placement. All questions answered. Objective Data Objective Data Vital Signs: Vital Signs Temp Pulse Resp BP Pulse Ox O2 Del Method O2 Flow Rate 97.4 F L 64 18 107/64 100 Nasal Cannula 2 05/21/24 05:07 05/21/24 05:07 05/21/24 05:07 05/21/24 05:07 05/21/24 05:07 05/21/24 05:07 05/21/24 05:07 Oxygen Flow Rate (L/min) 2 Oxygen Delivery Method Nasal Cannula Weight: 229 lb 15.074 oz Body Mass Index (BMI) 34.9 Intake & Output: Intake and Output for Last 24 Hours 05/19/24 05/20/24 05/21/24 23:59 23:59 23:59 Intake Total 1110 / 1110 904.75 / 904.75 Output Total 1000 / 1000 4000 / 4000 Balance 110 / 110 -3095.25 / -3095.25 Lab / Micro Data 05/21/24 06:33 05/21/24 06:33 Labs: Laboratory Results - last 24 hr 05/20/24 09:31: POC Glucose 180 H 05/20/24 11:18: POC Glucose 214 H 05/20/24 16:27: POC Glucose 299 H 05/20/24 20:46: POC Glucose 301 H 05/21/24 06:33: WBC 7.3, RBC 4.13 L, Hgb 10.6 L, Hct 35.2 L, MCV 85.2, MCH 25.7 L, MCHC 30.1 L, RDW Std Deviation 44.5 H, RDW Coeff of Kami 14.6, Plt Count 231, MPV 9.2, Immature Gran % (Auto) 0.800, Neut % (Auto) 53.9, Lymph % (Auto) 32.7, [place] % (Auto) 8.9, Eos % (Auto) 3.3, Baso % (Auto) 0.4, Absolute Neuts (auto) 3.9, Absolute Lymphs (auto) 2.38, Nucleated RBC % 0, Sodium 136, Potassium 4.3, Chloride 104, Carbon Dioxide 26.0, Anion Gap 6, BUN 29 H, Creatinine 0.72, Estim Creat Clear Calc 106.33, Est GFR (MDRD) Af Amer 106, Est GFR (MDRD) Non-Af 88, BUN/Creatinine Ratio 40.2 H, Glucose 248 H, Calcium 8.5 05/21/24 06:37: POC Glucose 267 H Micro: Microbiology 05/20/24 08:21 Tissue - Left Foot Gram Stain - Final 05/20/24 08:21 Tissue - Left Foot Wound Culture - Preliminary No growth-Final to follow 05/15/24 Unknown Tissue - Ankle Gram Stain - Final 05/15/24 Unknown Tissue - Ankle Wound Culture - Final Staphylococcus aureus 05/15/24 Unknown Tissue - Ankle Anaerobic Culture - Final Anaerobic cocci Physical Exam Narrative Left lower extremity VeraFlow VAC holding suction, no issues. No blood in the VAC. Heal and foot are appropriately offloaded. Const oriented x3 Cardio regular rate Assessment & Plan Assessment/Plan (1) Wound of left ankle: PLAN: Plan Plan is OR tomorrow, 22 May 2024, for repeat washout and Integra placement. Patient has been approved for a home wound VAC and this will be placed tomorrow and she can be discharged. She will follow-up with me at the wound care center on Monday, 27 May 2024. No need for home wound VAC changes (we will examine the Integra at the wound care center weekly). No growth thus far from cultures taken to the OR yesterday, 20 May 2024. Cultures from the OR on 15 May 2024 demonstrated MSSA and anaerobic cocci, and ID recommended the following: Change to po doxy and add cefdinir and flagyl. Family updated Charges/Coding Procedures Integumentary [id number]: [id number] Global Visit
[2024-05-21] MEDS: Nystatin Powder 15gm Bottle 1 APPLIC TOPICAL ×2 (09:07→22:55)
[2024-05-21] MEDS: Polyethylene Glycol 3350 17 GM PACKET PO (09:16)
[2024-05-21] MEDS: Doxycycline 100 MG CAPSULE PO ×2 (09:16→22:56)
[2024-05-21 09:22] VITALS: BP 124/69; PULSE 66; RESP 18; TEMP 36.6; O2SAT 96
[2024-05-21 09:23] VITALS: BP 124/69; PULSE 66
[2024-05-21] MEDS: Metoprolol(XL)Succ 50 MG Tablet PO (09:23)
[2024-05-21 11:57] LABS: Bedside Glucose 255 mg/dL (74-106)
[2024-05-21] MEDS: Acetaminophen 500 MG Tablet 1000 MG PO ×2 (12:21→23:08)
[2024-05-21] MEDS: Vitamin B Comp W-C Capsule 1 CAP PO (12:22)
[2024-05-21] MEDS: Celecoxib 200 MG Capsule PO (12:22)
[2024-05-21] MEDS: Losartan Potassium 100 MG Tablet PO (12:22)
[2024-05-21] MEDS: oxyCODONE 5 MG Tablet PO ×2 (12:22→23:08)
[2024-05-21 14:28] VITALS: BP 99/55; PULSE 63; RESP 16; TEMP 36.6; O2SAT 92
[2024-05-21 16:41] LABS: Bedside Glucose 321 mg/dL (74-106)
--- NOTE | 2024-05-21 17:18 | PN.HOSP_ITS ---
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 No new or acute complaints. Objective Data Objective Data Vital Signs: Vital Signs Temp Pulse Resp BP Pulse Ox O2 Del Method O2 Flow Rate 97.8 F 63 16 99/55 L 92 Room Air 2 05/21/24 14:28 05/21/24 14:28 05/21/24 14:28 05/21/24 14:28 05/21/24 14:28 05/21/24 14:28 05/21/24 05:07 Oxygen Flow Rate (L/min) 2 Oxygen Delivery Method Room Air Weight: 104.3 kg Body Mass Index (BMI) 34.9 Intake & Output: Intake and Output for Last 24 Hours 05/19/24 05/20/24 05/21/24 23:59 23:59 23:59 Intake Total 1110 / 1110 904.75 / 904.75 450 / 450 Output Total 1000 / 1000 4000 / 4000 Balance 110 / 110 -3095.25 / -3095.25 450 / 450 Lab / Micro Data 05/21/24 06:33 05/21/24 06:33 Labs: Laboratory Results - last 24 hr 05/20/24 20:46: POC Glucose 301 H 05/21/24 06:33: WBC 7.3, RBC 4.13 L, Hgb 10.6 L, Hct 35.2 L, MCV 85.2, MCH 25.7 L, MCHC 30.1 L, RDW Std Deviation 44.5 H, RDW Coeff of Kami 14.6, Plt Count 231, MPV 9.2, Immature Gran % (Auto) 0.800, Neut % (Auto) 53.9, Lymph % (Auto) 32.7, Piatt % (Auto) 8.9, Eos % (Auto) 3.3, Baso % (Auto) 0.4, Absolute Neuts (auto) 3.9, Absolute Lymphs (auto) 2.38, Nucleated RBC % 0, Sodium 136, Potassium 4.3, Chloride 104, Carbon Dioxide 26.0, Anion Gap 6, BUN 29 H, Creatinine 0.72, Estim Creat Clear Calc 106.33, Est GFR (MDRD) Af Amer 106, Est GFR (MDRD) Non-Af 88, B UN/Creatinine Ratio 40.2 H, Glucose 248 H, Calcium 8.5 05/21/24 06:37: POC Glucose 267 H 05/21/24 11:04: POC Glucose 255 H 05/21/24 16:13: POC Glucose 321 H Micro: Microbiology 05/20/24 08:21 Tissue - Left Foot Gram Stain - Final 05/20/24 08:21 Tissue - Left Foot Wound Culture - Preliminary No growth-Final to follow 05/15/24 Unknown Tissue - Ankle Gram Stain - Final 05/15/24 Unknown Tissue - Ankle Wound Culture - Final Staphylococcus aureus 05/15/24 Unknown Tissue - Ankle Anaerobic Culture - Final Anaerobic cocci Physical Exam Narrative General: Alert, oriented, no apparent distress HEENT: Atraumatic, normocephalic Eyes: Anicteric, normal conjunctiva, extraocular movements grossly intact Neck: Supple Respiratory: Clear to auscultation bilaterally, normal respiratory effort Cardiovascular: Regular rate and rhythm GI: Soft, nontender, nondistended Extremities: No significant pitting edema Musculoskeletal: Moving all extremities, left lower with wound VAC in place Neuro: No overt focal neurological deficits Skin: Left lower extremity wrapped Psych: Cooperative Assessment & Plan Assessment/Plan (1) Wound of left ankle: PLAN: Plan # Left posterior ankle wound over Achilles tendon -Had debridement and wound VAC 05/15/24 with plastic surgery and podiatry -Wound growing MSSA -Patient back to the OR today 05/20 for wound VAC change and repeat debridement -Patient to go back to the OR Monday and if repeat cultures are negative and wound improving will have graft application and wound VAC and will likely be able to DC after that time -ID following, antibiotics changed to p.o. Doxy and cefdinir and Flagyl -05/21: Patient for OR tomorrow with washout and antegrade placement and wound VAC placement and will likely be discharged after. Will follow with Dr. Solano at the wound center May 27. On p.o. Doxy, cefdinir, Flagyl #Type 2 diabetes mellitus -Glucose checks and sliding scale insulin -Also had been continued on home glimepiride -A1c 6.9 on 05/09/2024 -05/21: Increase sliding scale factor, continue glimepiride. Patient to be n.p.o. at midnight and likely home tomorrow and will resume her home diabetic medications, will need to follow-up on outpatient basis for further management #Hypertension -Fairly well-controlled, presently on metoprolol and losartan -05/21: Decrease losartan as blood pressure somewhat lower, otherwise vitally stable and no new or acute complaints Chronic medical problems: #Hypothyroidism -Continue Synthroid # Depression -Continue Paxil and doxepin # Chronic normocytic anemia -Appears to be at baseline # Diabetic neuropathy -Continue Lyrica and managing underlying diabetes #DVT ppx: Lovenox subcu Ama Spring MD Time spent in the patient's overall evaluation,decision-making process, review of diagnostic data, adjustment of management, discussion with other providers, nursing nursing and ancillary staff involved in patient's care documentation, 35 minutes Charges/Coding Visit Charges Inpatient E&M: 94721 Subs Hosp L2
[2024-05-21 17:57] VITALS: BP 117/61; PULSE 69; RESP 18; TEMP 36.4; O2SAT 96
[2024-05-21] MEDS: traZODone 100 MG Tablet 150 MG PO (22:53)
[2024-05-21] MEDS: Atorvastatin Calcium 80 MG Tablet PO (22:53)
[2024-05-21] MEDS: Doxepin Hcl 25 MG Capsule PO (22:55)
[2024-05-21 23:25] VITALS: BP 100/60; PULSE 63; RESP 16; TEMP 36.1; O2SAT 95
[2024-05-21 23:41] LABS: Bedside Glucose 253 mg/dL (74-106)
[2024-05-22] VITALS (11 sets, daily range): BP systolic 104–151; BP diastolic 54–80; PULSE 64–76; RESP 16–18; TEMP 36.1–36.4; O2SAT 87–100
[2024-05-22] MEDS: Levothyroxine 150 MCG Tablet PO (05:21)
[2024-05-22] MEDS: metroNIDAZOLE 500 MG Tablet PO ×2 (05:21→17:58)
[2024-05-22] MEDS: Acetaminophen 500 MG Tablet 1000 MG PO (05:21)
[2024-05-22] MEDS: Pregabalin 75 MG Capsule 150 MG PO ×2 (05:21→18:16)
[2024-05-22 05:39] LABS: Absolute Lymphocyte Count 2.75 X10^3/uL (0.83-4.51); Absolute Neutrophil Count 2.4 X10^3/uL (2.0-7.7); Basophil# 0.04 X10^3/uL; Basophil% 0.7 % (0-1); Eosinophil# 0.26 X10^3/uL; Eosinophils% 4.4 % (0-5); Hematocrit 35.6 % (37-47); Hemoglobin 10.6 g/dL (12.0-15.0); Lymphocyte # 2.75 X10^3/ul (0.83-4.51); Lymphocyte % 46.5 % (19-41); Mean Corp Hgb Conc 29.8 g/dL (32-36); Mean Corpuscular Hgb 25.4 pg (27.0-32.0); Mean Corpuscular Volume 85.2 fL (81-99); Mean Platelet Vol. 9.5 fl (6.2-12.0); Monocyte# 0.46 X10^3/uL; Monocyte% 7.8 % (0-10); NRBC Flagged by Analyzer 0 % (0-5); Neutrophil # 2.37 X10^3/uL (2.7-7.7); Neutrophil % 39.9 % (47-70); Platelet Count 253 K/mm3 (150-450); RBC Distribution Width CV 14.6 % (11.6-14.6); Red Blood Count 4.18 M/mm3 (4.2-5.4); White Blood Count 5.9 K/mm3 (4.4-11.0)
[2024-05-22 05:48] LABS: International Normalized Ratio 1.1; Prothrombin Time (Protime)PT. 14.5 SECONDS (11.7-14.9)
[2024-05-22 05:53] LABS: Anion Gap 4 (5-15); BUN 36 mg/dL (7-18); BUN/Creat Ratio 42.4 RATIO (10-20); Calcium,Total 8.6 mg/dL (8.5-10.1); Chloride 100 mmol/L (98-107); Creatinine, Serum 0.85 mg/dL (0.55-1.02); EST Glomerular Filtration Rate 73 mL/min (>60); Est Glom Filt Rate - Afr Amer 88 mL/min (>60); Estimated Creatinine Clearance 90.07 ml/min; Glucose 237 mg/dL (74-106); Potassium 3.9 mmol/L (3.5-5.1); Sodium Level 135 mmol/L (136-145)
[2024-05-22] MEDS: Insulin Lispro 100 UNIT/ML INSULN.PEN SC ×2 (06:21→18:10)
[2024-05-22 06:40] LABS: Bedside Glucose 222 mg/dL (74-106)
--- NOTE | 2024-05-22 07:31 | PCM.HP.STD ---
HPI - General General Date of Admission: 05/15/24 Chief Complaint: Left achilles wound HPI Narrative REMI TREVINO, is a 58 F who presents for management of her achilles wound. Current Encounter (DATE OF SURGERY H&P UPDATE): I saw and examined the patient this morning in pre-operative holding. We discussed risks and benefits of today's surgery and they would like to proceed. NO CHANGE in health history since last seen and evaluated. Ready to proceed with surgery. [facility] Medical History Open wound Current use of insulin Post-menopausal Hiatal hernia Back pain due to injury Osteoporosis Sleep apnea Insulin dependent diabetes mellitus Easy bruising Restless legs Difficulty swallowing Tachycardia Smoker Wears dentures Wears glasses Anxiety Iron deficiency Back pain Dietary restriction GERD (gastroesophageal reflux disease) Shortness of breath Asthma CPAP (continuous positive airway pressure) dependence Leg cramping History of pain when walking Edema Cardiology follow-up encounter History of stress test Normal echocardiogram Hypertension Difficulty balancing when standing Asthma Arthritis Fibromyalgia Multinodular thyroid Hypothyroidism Essential (primary) hypertension Hypergammaglobulinemia Hyperlipemia Dermatitis Depression PAD (peripheral artery disease) Other specified peripheral vascular diseases Hammertoe of left foot Skin ulcer of right foot including toes with fat layer exposed Osteomyelitis of toe Morbid obesity with BMI of 40.0-44.9, adult Diabetes type 2, uncontrolled Venous stasis dermatitis of both lower extremities Home Medications ?Medication ?Instructions ?Recorded ?Last Taken ?Type omeprazole 40 mg capsule,delayed 40 mg PO DAILY ACID REFLUX 10/18/18 05/14/24 History release paroxetine HCl 40 mg tablet 40 mg PO DAILY DEPRESSION 10/29/19 05/14/24 History pregabalin 150 mg capsule 150 mg PO TID NERVE PAIN 10/29/19 05/14/24 History aspirin 81 mg tablet,delayed 81 mg PO DAILY HEART HEALTH 07/21/20 05/08/24 History release (Adult Low Dose Aspirin) metoprolol succinate 200 mg 200 mg PO DAILY BLOOD PRESSURE 07/21/20 05/14/24 History tablet,extended release 24 hr rosuvastatin 40 mg tablet (Crestor) 40 mg PO DAILY CHOLESTEROL 08/26/22 05/14/24 History pen needle, diabetic 32 gauge x #100 ea 02/13/23 Unknown Rx (BD Ultra-Fine Catalina Pen Needle) dapagliflozin propanediol 10 mg 10 mg PO DAILY DIABETES 03/01/23 05/14/24 History tablet (Farxiga) losartan 100 mg tablet 100 mg PO DAILY BLOOD PRESSURE 03/01/23 05/14/24 History blood sugar diagnostic (True #100 ea 03/24/23 Unknown Rx Metrix Glucose Test Strip) glimepiride 4 mg tablet 4 mg PO DAILY diabetes #30 tabs 04/10/23 05/14/24 Rx insulin aspart 10 unit subcut TID diabetes #9 mL 05/29/23 02/26/24 Rx (niacinamide)(U-100) 100 unit/mL(3 mL) subcutaneous pen (Fiasp FlexTouch U-100 Insulin) albuterol sulfate 90 mcg/actuation 1 puff inhalation Q6H PRN PRN 01/19/24 05/12/24 History aerosol inhaler shortness of breath or wheezing tirzepatide 7.5 mg/0.5 mL 7.5 mg subcut QWEEK diabetes 01/19/24 04/29/24 History subcutaneous pen injector (Rex) celecoxib 200 mg capsule 200 mg PO DAILY pain 02/21/24 05/14/24 History doxepin 25 mg capsule 25 mg PO QHS sleep 02/21/24 05/14/24 History levothyroxine 150 mcg tablet 150 mcg PO DAILY hypothyroid 02/21/24 05/14/24 History montelukast 10 mg tablet 10 mg PO DAILY allergies/asthma 02/21/24 05/14/24 History potassium chloride 20 mEq 20 meq PO DAILY potassium 02/21/24 05/14/24 History tablet,extended supplement release(part/cryst) (Klor-Con M) trazodone 150 mg tablet 150 mg PO QHS sleep 02/21/24 05/14/24 History acetaminophen 500 mg tablet 1,000 mg (2 x 500 mg) PO Q6H PRN 04/02/24 Unknown Rx PRN Pain Score 1-3 #0 tabs arginine 7 gram-glutam 7 1 packet PO BIDCM 30 days #60 ea 04/02/24 Unknown Rx gram-CaHMB 1.5 sojb-ebgla-mn-min oral pwd pkt (Drew (with collagen)) oxycodone 5 mg tablet 5 mg PO Q4H PRN PRN Pain Score 04/02/24 05/14/24 Rx 6-10 Or Pre Pt/Ot 7 days #42 tabs vitamin B complex (Vitamins B 1 cap PO DAILY 05/15/24 05/14/24 History Complex capsule) Allergy/AdvReac Type Severity Reaction Status Date / Time piperacillin (From Zosyn) Allergy Severe Anaphylaxis Verified 05/15/24 13:21 tazobactam (From Zosyn) Allergy Severe Anaphylaxis Verified 05/15/24 13:21 sulfamethoxazole (From Allergy Unknown Anaphylaxis Verified 05/15/24 13:21 Bactrim) trimethoprim (From Bactrim) Allergy Unknown Anaphylaxis Verified 05/15/24 13:21 latex Allergy Rash Verified 05/15/24 13:21 pyrethrins Allergy Anaphylaxis Verified 05/15/24 13:21 tetanus and diphtheria Allergy Anaphylaxis Verified 05/15/24 13:21 toxoids (Tetanus&Diphtheria Toxoid) Family History Mother Diabetes Dementia Father Diabetes Myocardial infarction Surgical History Hx of toe surgery History of partial ray amputation of fifth toe of right foot Hx of total knee arthroplasty History of nasal septoplasty History of cholecystectomy History of thyroidectomy H/O arthroscopic knee surgery (11/2019) H/O amputation of lesser toe (05/05/17) Social History household members: none Smoking Status: Current some day smoker tobacco type: e-cigarettes alcohol intake: current alcohol intake frequency: holidays/special occasions only substance use type: does not use Vital Signs Vital Signs Vital Signs: 05/21/24 09:22 05/21/24 09:23 05/21/24 10:00 Temperature 97.8 F Temperature Source Oral Pulse Rate 66 66 Pulse Strength Weak (1+) Respiratory Rate 18 Blood Pressure 124/69 H 124/69 H Blood Pressure Mean 87 Blood Pressure Source Monitor Blood Pressure Position Semi-Fowlers Blood Pressure Location Right Arm Pulse Ox 96 Oxygen Delivery Method Room Air Oxygen Flow Rate (L/min) 05/21/24 14:28 05/21/24 17:57 05/21/24 23:25 Temperature 97.8 F 97.5 F L 97 F L Temperature Source Oral Oral Temporal Pulse Rate 63 69 63 Pulse Strength Respiratory Rate 16 18 16 Blood Pressure 99/55 L 117/61 100/60 Blood Pressure Mean 69 79 73 Blood Pressure Source Monitor Monitor Monitor Blood Pressure Position Sitting Sitting Sitting Blood Pressure Location Left Arm Left Arm Left Arm Pulse Ox 92 96 95 Oxygen Delivery Method Room Air Room Air Room Air Oxygen Flow Rate (L/min) 05/22/24 05:28 Temperature 97.5 F L Temperature Source Oral Pulse Rate 64 Pulse Strength Respiratory Rate 16 Blood Pressure 109/60 Blood Pressure Mean 76 Blood Pressure Source Monitor Blood Pressure Position Semi-Fowlers Blood Pressure Location Right Arm Pulse Ox 100 Oxygen Delivery Method Nasal Cannula Oxygen Flow Rate (L/min) 3 Weight Weight: 229 lb 15.074 oz Body Mass Index (BMI) 34.9 Physical Exam Narrative Left lower extremity VeraFlow VAC holding suction, no issues. No blood in the VAC. Heal and foot are appropriately offloaded. Const oriented x3 Cardio regular rate Results Lab / Micro Data 05/22/24 05:13 05/22/24 05:13 Labs: Laboratory Results - last 24 hr 05/21/24 06:33: Sodium 136, Potassium 4.3, Chloride 104, Carbon Dioxide 26.0, Anion Gap 6, BUN 29 H, Creatinine 0.72, Estim Creat Clear Calc 106.33, Est GFR (MDRD) Af Amer 106, Est GFR (MDRD) Non-Af 88, BUN/Creatinine Ratio 40.2 H, Glucose 248 H, Calcium 8.5 05/21/24 11:04: POC Glucose 255 H 05/21/24 16:13: POC Glucose 321 H 05/21/24 22:59: POC Glucose 253 H 05/22/24 05:13: WBC 5.9, RBC 4.18 L, Hgb 10.6 L, Hct 35.6 L, MCV 85.2, MCH 25.4 L, MCHC 29.8 L, RDW Std Deviation 45.0 H, RDW Coeff of Kami 14.6, Plt Count 253, MPV 9.5, Immature Gran % (Auto) 0.700, Neut % (Auto) 39.9 L, Lymph % (Auto) 46.5 H, Simpson % (Auto) 7.8, Eos % (Auto) 4.4, Baso % (Auto) 0.7, Absolute Neuts (auto) 2.4, Absolute Lymphs (auto) 2.75, Nucleated RBC % 0, PT 14.5, INR 1.1, APTT 31.0, Sodium 135 L, Potassium 3.9, Chloride 100, Carbon Dioxide 31.0, Anion Gap 4 L, BUN 36 H, Creatinine 0.85, Estim Creat Clear Calc 90.07, Est GFR (MDRD) Af Amer 88, Est GFR (MDRD) Non-Af 73, BUN/Creatinine Ratio 42.4 H, Glucose 237 H, Calcium 8.6 05/22/24 06:20: POC Glucose 222 H Micro: Microbiology 05/20/24 08:21 Tissue - Left Foot Gram Stain - Final 05/20/24 08:21 Tissue - Left Foot Wound Culture - Preliminary No growth-Final to follow Assessment & Plan Assessment/Plan (1) Wound of left ankle: PLAN: INTERVAL H&P PLAN, DATE OF SURGERY: We will proceed with surgery today. I talked the patient extensively about the risks of surgery, including bleeding, infection, damage to surrounding structures, surgical site dehiscence and wound formation, need for wound care, need for repeat operations, failure to obtain the desired result, DVT/PE, and the risks of anesthesia including . All of their questions were answered, and they agreed to proceed with surgery.
--- NOTE | 2024-05-22 07:33 | PCM.OP.BLANK ---
Operative Report Date of Procedure: 05/22/24 Surgery/Procedure Date: 22 May 2024 Incision/Procedure Start Time: 15:25 Incision Close/Procedure End Time:15:58 PATIENT: Dewey Beltran SURGEON: Victorino Solano MD CO-SURGEON: none PRE-OPERATIVE DIAGNOSIS: Left posterior ankle wound over Achilles tendon repair POST-OPERATIVE DIAGNOSIS: Same PROCEDURE PERFORMED: 1) Excision of left posterior ankle wound, including biofilm, subcutaneous tissue, fascia, and tendon, 7 x 3 cm (CPT: 70449, 17495) 2) Placement of dermal substitute (Integra), 7 x 3 cm (CPT 66965, 71771) 3) Wound VAC, not disposable, less than 50 cm? (CPT: 47601) OPERATIVE FINDINGS: Overall healthy appearing wound requiring less debridement today. INDICATIONS: Patient is a 58-year-old female who underwent an Achilles tendon reconstruction with podiatry with loss of soft tissue over the reconstruction and wound breakdown. Vascular surgery reported good blood flow to heal the wound. She has had an irrigating VAC on the wound x 7 days. Presents today for another washout and debridement. No growth thus far from cultures taken to the OR on 20 May 2024. Cultures from the OR on 15 May 2024 demonstrated MSSA and anaerobic cocci, and ID recommended the following: Change to po doxy and add cefdinir and flagyl. Patient understands risks and benefits of surgery, including failure to obtain the desired result and need for repeat surgeries, as well as risks of anesthesia including . OPERATIVE DETAILS: Patient was correct identified in preoperative holding. I marked the patient's left leg. She was taken back to the operating room where she was administered general anesthesia after timeout was performed. She was flipped in a prone position and care was taken to pad her bony prominences and her face/eyes. Her leg was prepped and draped in sterile fashion. We began the procedure by excising the necrotic portions of the wound with a curved Saucedo scissors and 10 blade scalpel to further excise non-viable skin, fascia, tendon, and subcutaneous tissue and biofilm as well from the wound edges for 7 x 3 cm excision of wound. Hemostasis was obtained with Bovie electrocautery and the local block (epinephrine and Marcaine). 500 cc of Irrisept was then used to irrigate the wound as well as 3 L of normal saline. Integra was then placed as a dermal substitute 7 x 3 cm over the Achilles tendon. It was sutured into place with 3-0 chromic suture. Care was taken to perforate the center of the Integra a few times to prevent fluid collections. A wound VAC was applied over the entire for a less than 50 cm? irrigating wound VAC not disposable. Patient tolerated procedure well and was awakened and taken the PACU in stable condition. Fracture boot was applied to keep the foot in neutral position. Anesthesia: General anesthesia in the supine position with 10 cc of 0.25% Marcaine with 1-200,000 epinephrine for local block ASA 3 IV fluids: 500 cc of LR Urine output: Unmeasured, no Song EBL: 5 cc Specimens: Repeat deep soft tissue culture POST-OPERATIVE PLAN: Patient will continue wound VAC and changed weekly at the wound care center on Mondays (next appointment will be 27 May 2024 with me) to evaluate to take and readiness for a skin graft. She needs to continue pressure offloading heel and continue the VAC therapy at all times. She is nonweightbearing until 29 May 2024 per podiatry. She will need to go home on prophylactic anticoagulation (Lovenox injections). She is OK for discharge from plastic surgery standpoint.
--- NOTE | 2024-05-22 07:58 | PN_ITS ---
Subjective Subjective Patient seen resting in bed with left foot elevated and vera flow wound VAC intact to the posterior aspect of the left lower extremity. She denies pain to the left lower extremity. She is currently n.p.o. and awaiting graft placement by Dr. Solano this afternoon. Patient has no further complaints. Objective Data Objective Data Vital Signs: Vital Signs Temp Pulse Resp BP Pulse Ox O2 Del Method O2 Flow Rate 97.5 F L 64 16 109/60 100 Nasal Cannula 3 05/22/24 05:05/22/24 05:28 05/22/24 05:28 05/22/24 05:28 05/22/24 05:05/22/24 05:05/22/24 05:28 Oxygen Flow Rate (L/min) 3 Oxygen Delivery Method Nasal Cannula Weight: 104.3 kg Body Mass Index (BMI) 34.9 Intake & Output: Intake and Output for Last 24 Hours 05/20/24 05/21/24 05/22/24 23:59 23:59 23:59 Intake Total 904.75 / 904.75 450 / 450 Output Total 4000 / 4000 700 / 700 Balance -3095.25 / -3095.25 450 / 450 -700 / -700 Lab / Micro Data 05/22/24 05:13 05/22/24 05:13 Labs: Laboratory Results - last 24 hr 05/21/24 11:04: POC Glucose 255 H 05/21/24 16:13: POC Glucose 321 H 05/21/24 22:59: POC Glucose 253 H 05/22/24 05:13: WBC 5.9, RBC 4.18 L, Hgb 10.6 L, Hct 35.6 L, MCV 85.2, MCH 25.4 L, MCHC 29.8 L, RDW Std Deviation 45.0 H, RDW Coeff of Kami 14.6, Plt Count 253, MPV 9.5, Immature Gran % (Auto) 0.700, Neut % (Auto) 39.9 L, Lymph % (Auto) 46.5 H, Coryell % (Auto) 7.8, Eos % (Auto) 4.4, Baso % (Auto) 0.7, Absolute Neuts (auto) 2.4, Absolute Lymphs (auto) 2.75, Nucleated RBC % 0, PT 14.5, INR 1.1, APTT 31.0, Sodium 135 L, Potassium 3.9, Chloride 100, Carbon Dioxide 31.0, Anion Gap 4 L, BUN 36 H, Creatinine 0.85, Estim Creat Clear Calc 90.07, Est GFR (MDRD) Af Amer 88, Est GFR (MDRD) Non-Af 73, BUN/Creatinine Ratio 42.4 H, Glucose 237 H, Calcium 8.6 05/22/24 06:20: POC Glucose 222 H Micro: Microbiology 05/20/24 08:21 Tissue - Left Foot Gram Stain - Final 05/20/24 08:21 Tissue - Left Foot Wound Culture - Preliminary No growth-Final to follow 05/15/24 Unknown Tissue - Ankle Gram Stain - Final 05/15/24 Unknown Tissue - Ankle Wound Culture - Final Staphylococcus aureus 05/15/24 Unknown Tissue - Ankle Anaerobic Culture - Final Anaerobic cocci Physical Exam Const alert, oriented x3 and no apparent distress General Appearance: cooperative HEENT normocephalic Eyes Eyes Narrative: Wears glasses General Eye: normal appearance of both eyes Neck General: normal visual inspection Lymph Lymphatic: no lymphadenopathy noted and no lymphedema noted Resp normal respiratory effort Cardio regular rate and regular rhythm Extremity no joint enlargement and no calf tenderness Extremity Narrative: Left Lower Extremity: Vascular: DP and PT pusles palpable. CFT < 5 seconds to digits of the foot. Normal temperature gradient. Hair growth is absent to digits. Neurologic: Protective sensation absent to foot consistent with Diabetic Peripheral Polyneuropathy. Gross sensation intact Musculoskeletal: Muscle strength 5/5 and age-appropriate. Negative Zayas Test. Ankle ROM is 5 degrees in Dorsiflexion with knee extended without pain or crepitus. Full Ankle ROM with knee flexed. Achilles intact LLE with exposure of portion of tendon with braided suture wire visible. No pain to palpation about the ulceration site or Achilles Tendon consistent with Diabetic Peripheral Polyneuropathy. Dermatologic: There is a full thickness ulceration to the posterior aspect of the Left Lower extremity with healthy granular layer and no further exposure of Achilles tendon. Ulceration site measures 8.0cm x 3.0cm x 0.3cm post-surgery. No signs of infection. Veraflow wound VAC remains in place. 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 Left Lower Extremity: There is a full thickness ulceration to the posterior aspect of the Left Lower extremity with healthy granular layer postsurgical debridement. Ulceration site measures 8.0cm x 3.0cm x 0.3cm post-surgery. No signs of infection. Negative Zayas Test. Ankle ROM is 7 degrees in Dorsiflexion with knee extended without pain or crepitus at bedside today. There is slight increase in Dorsiflexion vs post-surgery on 05/15/24. Full Ankle ROM with knee flexed. Achilles intact LLE. No pain to palpation about the ulceration site or Achilles Tendon consistent with Diabetic Peripheral Polyneuropathy. Discussed possibility of AFO brace if her Achilles has been compromised following debridements but at this time tendon appears to be intact. She is understanding that this will be required to prevent recidivism of ulcerations to the plantar heel. She is set to undergo graft placement this afternoon 05/22/[address] Victorino Solano, Plastic Surgeon. HgbA1c was 6.9% on 05/09/24 Continue IV Abx Wound culture 05/15/24: Staph aureus protein A PCR Negative; MRSA PCR Negative Medicine is following for medical management, they are greatly appreciated. Dr. Solano, Plastic Surgeon is on board and following with plan for Graft application on 05/22/24. Vascular Surgery following Wound Nurse assisting in dressing changes Following procedure she is to remain non-weight bearing to the Left Lower Extremity with assistance of walker and CAM boot for 7 days. Will resume protective weightbearing in CAM boot 05/29/2024. She is to keep LLE elevated for post-operative edema control. Dr. Smith will continue to follow. Upon discharge we will also follow-up with me in office. Zack Smith Jr., D.P.[facility] [phone]
--- NOTE | 2024-05-22 08:05 | WOUNDNOTE ---
Pt going to surgery today. will leave dressing in place. Awaiting home VAC from [facility] to be delivered hopefully before surgery today.
[2024-05-22] MEDS: Menthol/Lanolin/Calamine/Znox 113 GM Tube 1 APPLIC TOPICAL (09:58)
[2024-05-22] MEDS: Nystatin Powder 15gm Bottle 1 APPLIC TOPICAL (09:58)
--- NOTE | 2024-05-22 10:04 | WOUNDNOTE ---
Received email from [employer] stating the NPWT has been approved. plan to deliver to patient's room. notified them of the time of delivery prior to patient going to surgery.
--- NOTE | 2024-05-22 10:41 | CASEMGMT ---
Addendum entered by Mary Mazariegos 05/22/24 11:15: JESSICA Alonso at [facility], made aware of [employer]'s phone number per request. . She is also aware that the wound vac has been approved. Addendum entered by Mary Mazariegos 05/22/24 10:51: Made Celeste aware pt vac is through [employer]. Original Note: TC brooklynn Alonso at [facility] to update on pt status. Per rounds, pt to have surgery this afternoon. Pt may dc today or tomorrow. Still awaiting home vac approval per wound nurse. Per Celeste, [facility] will see pt on Monday regardless of dc today or tomorrow.
[2024-05-22 12:24] LABS: Bedside Glucose 191 mg/dL (74-106)
--- NOTE | 2024-05-22 13:22 | PCM.PN.ID ---
Physical Exam Narrative Feeling ok, no fever, no n/v/d, wound vac in place with plan for OR today Const alert and no apparent distress General Appearance: cooperative Resp normal air movement and clear to auscultation bilaterally Cardio regular rate and regular rhythm GI soft to palpation, non-tender and non-distended Skin Skin Narrative: wound vac on L foot ID ID: Route of nutrition/ use of supplements: [] Nutritional Intake: [] IV Site: [] Song Catheter: [] Assessment & Plan Assessment/Plan (1) Diabetes mellitus with diabetic polyneuropathy: QUALIFIERS: Diabetes mellitus type: type 2 Diabetes mellitus snf insulin use: with intermission coordinator use Qualified Code(s): E11.42 - Type 2 diabetes mellitus with diabetic polyneuropathy; Z79.4 - ad terminal makeup operator (current) use of insulin (2) Infected wound: PLAN: Non healing wound after L Achilles tendon repair. Taken to OR 05/15/[address] Smith and Dr. Solano for I&D and wound vac placement. Feeling ok. Surg cx with mssa and anaerobes, on doxy. Cont po doxy, cefdinir and flagyl. Has tolerated cefepime here 02/2024. OR planned for today. Wound vac in place. Will follow
--- NOTE | 2024-05-22 14:45 | PRE.ANES_ITS ---
ASA Classification* ASA Classification ASA Classification: 3 Assessment & Plan Anesthesia* Anesthesia Assessment Anesthesia Assessment: Discussed sedation and/or anesthesia options, risks, benefits, and alternatives with patient/parents/legal guardian/POA. Questions invited. The patient/parents/legal guardian/POA seems to understand and agrees to proceed with anesthesia plan. Reviewed the physical assessment, medical history, allergy history and patient home medications list prior to surgery/procedure/anesthetic and documented any changes. Performed airway and anesthesia risk assessments. Anesthesia Type Anesthesia Type: General History Source History Obtained from:: Patient and Chart Anesthesia Focused Assessment* Temperature: 97.5 F Pulse Rate: 64 Blood Pressure: 141/80 Respiratory Rate: 16 Pulse Ox: 99 Oxygen Delivery Method: Room Air Airway Assessment Mouth opens: >3 cm Mallampati Score: I Teeth Condition: Full (Patient has full upper and lower dentures. These are out at the moment.) Neck Range of motion (ROM): Limited ROM (Slight decrease in extension.) Pertinent Findings EKG Pertinent Findings:: May 20, 2024. Normal sinus rhythm. Focused Labs Anesthesia Preop lab: CBC WBC 5.9 K/mm3 (4.4-11.0) 05/22/24 05:13 RBC 4.18 M/mm3 (4.2-5.4) L 05/22/24 05:13 Hgb 10.6 g/dL (12.0-15.0) L 05/22/24 05:13 Hct 35.6 % (37-47) L 05/22/24 05:13 Plt Count 253 K/mm3 (150-450) 05/22/24 05:13 CHEMISTRY Potassium 3.9 mmol/L (3.5-5.1) 05/22/24 05:13 Sodium 135 mmol/L (136-145) L 05/22/24 05:13 Magnesium 2.0 mg/dL (1.6-2.6) 05/17/24 07:22 Phosphorus 3.6 mg/dL (2.5-4.9) 05/17/24 07:22 BUN 36 mg/dL (7-18) H 05/22/24 05:13 Creatinine 0.85 mg/dL (0.55-1.02) 05/22/24 05:13 Glucose 237 mg/dL (74-106) H 05/22/24 05:13 POC Glucose 191 mg/dL (74-106) H 05/22/24 12:05 TSH 0.13 uIU/mL (0.358-3.74) L 02/22/24 07:17 COAG PT 14.5 SECONDS (11.7-14.9) 05/22/24 05:13 Pre-Assessment Diagnosis/Proposed Procedure Planned Operative Procedure(s): Integra placement left Achilles tendon Anesthesia History 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 When Was Last Pacemaker Check QUESTION #4 FULL TEXT: You/Your Family Experience fever (hyperthermia) with Anesthesia Last Oral Intake Last Oral intake: Last Oral Intake NPO since 11:45 05/15/24 13:27 Meds taken in AM with sips of Yes 05/15/24 13:27 water? 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 Female Yes 05/14/24 12:28 HX of Motion Sickness No 05/14/24 12:28 HX of N/V After Surgery No 05/14/24 12:28 Non-Smoker No 05/14/24 12:28 Duration of Surgery greater Yes 05/14/24 12:28 than 60 minutes Number of Risk Factors 2 05/14/24 12:28 PONV Score Moderate Risk 05/14/24 12:28 Height & Weight Height & Weight: Anesthesia: Height & Weight Height 5 ft 8 in 05/21/24 14:34 Weight: 104.3 kg 05/21/24 14:34 Body Mass Index (BMI) 34.9 05/15/24 20:05 Respiratory Assessment Respiratory Assessment - rotary envelope machine operator: Respiratory Tract Infection Hx - rotary envelope machine operator Hx Respiratory Tract Infection No 05/19/24 21:33 STOP Sleep Apnea STOP Sleep Apnea - rotary envelope machine operator: STOP Sleep Apnea - rotary envelope machine operator Hx Hypertension Yes 05/16/24 11:13 Hx Sleep Apnea Yes 05/20/24 08:56 CPAP No: supposed to use cpap 05/15/24 20:02 BIPAP No 05/15/24 20:02 Do you snore loudly (louder than talking or can be heard Do you often feel tired/ fatigued/ sleepy during daytime? Has anyone observed you stop breathing during sleep? STOP Results Positive 05/15/24 20:02 QUESTION #5 FULL TEXT : Do you snore loudly (louder than talking or can be heard through closed doors)? 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 Specify any problems Hx of Preganancy in last 3 No 05/15/24 20:02 Months Nurse Filling Out Transfusion [id number] 05/15/24 20:02 & Questions: Date: 05/15/24 05/15/24 20:02 Time: 20:02 05/15/24 20:02 Patient unable to answer at this time (ie. 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 INHALATION Q6H PRN PRN shortness of breath or wheezing Aspirin 81 mg 05/16/24 08:00 05/21/24 09:03 Aspirin E.C. 81 Mg Tablet PO 81 mg DAILYCM RUTH Administration Atorvastatin Calcium 80 mg 05/15/24 22:00 05/21/24 22:53 Atorvastatin Calcium 80 Mg Tablet PO 80 mg QHS RUTH Administration Calamine/Phenol 1 applic 05/15/24 22:00 05/22/24 09:58 Menthol/Lanolin/Calamine/Znox 113 Gm Tube TOPICAL 1 applic BID RUTH Administration Protocol Cefdinir 300 mg 05/20/24 22:00 05/21/24 22:54 Cefdinir 300 Mg Capsule PO 300 mg Q12 RUTH Administration Celecoxib 200 mg 05/16/24 10:00 05/21/24 12:22 Celecoxib 200 Mg Capsule PO 200 mg DAILY RUTH Administration Doxepin HCl 25 mg 05/15/24 22:00 05/21/24 22:55 Doxepin Hcl 25 Mg Capsule PO 25 mg QHS URTH Administration Doxycycline Monohydrate 100 mg 05/20/24 22:00 05/21/24 22:56 Doxycycline 100 Mg Capsule PO 100 mg BID RUTH Administration Enoxaparin Sodium 40 mg 05/16/24 10:00 05/21/24 09:04 Enoxaparin 40 Mg/0.4 Ml Syringe SC 40 mg DAILY RUTH Administration Glimepiride 4 mg 05/16/24 08:00 05/21/24 08:58 Glimepiride 4 Mg Tablet PO 4 mg DAILYCM RUTH Administration Glucagon 1 mg 05/15/24 17:23 Glucagon 1 Mg/Ml Syringe IM X1 PRN HYPOGLYCEMIA Protocol Dextrose 250 mls @ 0 mls/hr 05/15/24 17:23 Dextrose 10%-Water IV .Q0M PRN HYPOGLYCEMIA Protocol As Directed Sodium Chloride 250 mls @ 15 mls/hr 05/15/24 19:48 IV .[id number] PRN Additional IVPB Infusion Insulin Human Lispro 0 unit 05/15/24 20:00 05/22/24 06:21 Insulin Lispro 100 Unit/Ml Insuln.Pen SC 6 u ACHS RUTH Administration Protocol Levothyroxine Sodium 150 mcg 05/20/24 10:00 05/22/24 05:21 Levothyroxine 150 Mcg Tablet PO 150 mcg DAILY@0600 RUTH Administration Losartan Potassium 50 mg 05/22/24 10:00 Losartan Potassium 50 Mg Tablet PO DAILY RUTH Protocol Metoprolol Succinate 50 mg 05/17/24 10:00 05/21/24 09:23 Metoprolol(Xl)Succ 50 Mg Tablet PO 50 mg DAILY RUTH Administration Protocol Metronidazole 500 mg 05/20/24 22:00 05/22/24 05:21 Metronidazole 500 Mg Tablet PO 500 mg TID RUTH Administration Montelukast Sodium 10 mg 05/16/24 10:00 05/21/24 09:04 Montelukast 10 Mg Tablet PO 10 mg DAILY RUTH Administration Morphine Sulfate 2 - 4 mg 05/15/24 17:23 Morphine 2 Mg/Ml Syringe IV Q3H PRN PRN Pain Score 6-10 Morphine Sulfate 2 - 4 mg 05/15/24 17:40 Morphine 4 Mg/Ml Syringe IV Q3H PRN PRN Pain Score 6-10 Multivitamins 1 cap 05/16/24 08:00 05/21/24 12:22 Vitamin B Comp W-C Capsule PO 1 cap DAILYCM [facility] Administration Nitroglycerin 0.4 mg 05/15/24 17:23 Nitroglycerin (Inpatient Use) 0.4 Mg Tab.Subl SL Q5M PRN CARDIAC/CHEST PAIN Nystatin 1 applic 05/20/24 10:00 05/22/24 09:58 Nystatin Powder 15gm Bottle TOPICAL 1 applic BID RUTH Administration Protocol Ondansetron HCl 4 mg 05/15/24 17:23 Ondansetron 4 Mg/2 Ml Vial IV Q8H PRN PRN NAUSEA/VOMITING Oxycodone HCl 5 mg 05/15/24 17:23 05/21/24 23:08 Oxycodone 5 Mg Tablet PO 5 mg Q4H PRN PRN Administration Pain Score 6-10 Or Pre Pt/Ot Pantoprazole Sodium 40 mg 05/16/24 10:00 05/21/24 08:58 Pantoprazole Sodium 40 Mg Tablet PO 40 mg DAILY RUTH Administration Paroxetine HCl 40 mg 05/16/24 10:00 05/21/24 09:04 Paroxetine 20 Mg Tablet PO 40 mg DAILY RUTH Administration Polyethylene Glycol 17 gm 05/20/24 14:24 05/21/24 22:52 Polyethylene Glycol 3350 17 Gm Packet PO Not Given BID RUTH Potassium Chloride 20 meq 05/16/24 08:00 05/21/24 09:04 Potassium Chloride Oral Tablet 20 Meq PO 20 meq DAILYCM RUTH Administration Pregabalin 150 mg 05/15/24 22:00 05/22/24 05:21 Pregabalin 75 Mg Capsule PO 150 mg TID RUTH Administration Senna/Docusate Sodium 2 tablet 05/20/24 14:27 05/21/24 18:02 Senna/Docusate Sodium 1 Tablet PO 2 tablet BID PRN PRN Administration CONSTIPATION Sodium Chloride 10 - 40 ml 05/15/24 19:48 05/20/24 22:07 0.9% Saline Lock 10 Ml Syringe IV 10 ml UD PRN Administration SALINE FLUSH Trazodone HCl 150 mg 05/15/24 22:00 05/21/24 22:53 Trazodone 100 Mg Tablet PO 150 mg QHS RUTH Administration PFSH Medical History Open wound Current use of insulin Post-menopausal Hiatal hernia Back pain due to injury Osteoporosis Sleep apnea Insulin dependent diabetes mellitus Easy bruising Restless legs Difficulty swallowing Tachycardia Smoker Wears dentures Wears glasses Anxiety Iron deficiency Back pain Dietary restriction GERD (gastroesophageal reflux disease) Shortness of breath Asthma CPAP (continuous positive airway pressure) dependence Leg cramping History of pain when walking Edema Cardiology follow-up encounter History of stress test Normal echocardiogram Hypertension Difficulty balancing when standing Asthma Arthritis Fibromyalgia Multinodular thyroid Hypothyroidism Essential (primary) hypertension Hypergammaglobulinemia Hyperlipemia Dermatitis Depression PAD (peripheral artery disease) Other specified peripheral vascular diseases Hammertoe of left foot Skin ulcer of right foot including toes with fat layer exposed Osteomyelitis of toe Morbid obesity with BMI of 40.0-44.9, adult Diabetes type 2, uncontrolled Venous stasis dermatitis of both lower extremities Home Medications ?Medication ?Instructions ?Recorded ?Last Taken ?Type omeprazole 40 mg capsule,delayed 40 mg PO DAILY ACID REFLUX 10/18/18 05/14/24 History release paroxetine HCl 40 mg tablet 40 mg PO DAILY DEPRESSION 10/29/19 05/14/24 History pregabalin 150 mg capsule 150 mg PO TID NERVE PAIN 10/29/19 05/14/24 History aspirin 81 mg tablet,delayed 81 mg PO DAILY HEART HEALTH 07/21/20 05/08/24 History release (Adult Low Dose Aspirin) metoprolol succinate 200 mg 200 mg PO DAILY BLOOD PRESSURE 07/21/20 05/14/24 History tablet,extended release 24 hr rosuvastatin 40 mg tablet (Crestor) 40 mg PO DAILY CHOLESTEROL 08/26/22 05/14/24 History pen needle, diabetic 32 gauge x #100 ea 02/13/23 Unknown Rx (BD Ultra-Fine Catalina Pen Needle) dapagliflozin propanediol 10 mg 10 mg PO DAILY DIABETES 03/01/23 05/14/24 History tablet (Farxiga) losartan 100 mg tablet 100 mg PO DAILY BLOOD PRESSURE 03/01/23 05/14/24 History blood sugar diagnostic (True #100 ea 03/24/23 Unknown Rx Metrix Glucose Test Strip) glimepiride 4 mg tablet 4 mg PO DAILY diabetes #30 tabs 04/10/23 05/14/24 Rx insulin aspart 10 unit subcut TID diabetes #9 mL 05/29/23 02/26/24 Rx (niacinamide)(U-100) 100 unit/mL(3 mL) subcutaneous pen (Fiasp FlexTouch U-100 Insulin) albuterol sulfate 90 mcg/actuation 1 puff inhalation Q6H PRN PRN 01/19/24 05/12/24 History aerosol inhaler shortness of breath or wheezing tirzepatide 7.5 mg/0.5 mL 7.5 mg subcut QWEEK diabetes 01/19/24 04/29/24 History subcutaneous pen injector (Vaughnunmemoro) celecoxib 200 mg capsule 200 mg PO DAILY pain 02/21/24 05/14/24 History doxepin 25 mg capsule 25 mg PO QHS sleep 02/21/24 05/14/24 History levothyroxine 150 mcg tablet 150 mcg PO DAILY hypothyroid 02/21/24 05/22/24 History montelukast 10 mg tablet 10 mg PO DAILY allergies/asthma 02/21/24 05/14/24 History potassium chloride 20 mEq 20 meq PO DAILY potassium 02/21/24 05/14/24 History tablet,extended supplement release(part/cryst) (Klor-Con M) trazodone 150 mg tablet 150 mg PO QHS sleep 02/21/24 05/14/24 History acetaminophen 500 mg tablet 1,000 mg (2 x 500 mg) PO Q6H PRN 04/02/24 Unknown Rx PRN Pain Score 1-3 #0 tabs arginine 7 gram-glutam 7 1 packet PO BIDCM 30 days #60 ea 04/02/24 Unknown Rx gram-CaHMB 1.5 [id number] oral pwd pkt (Drew (with collagen)) oxycodone 5 mg tablet 5 mg PO Q4H PRN PRN Pain Score 04/02/24 05/14/24 Rx 6-10 Or Pre Pt/Ot 7 days #42 tabs vitamin B complex (Vitamins B 1 cap PO DAILY 05/15/24 05/14/24 History Complex capsule) Allergy/AdvReac Type Severity Reaction Status Date / Time piperacillin (From Zosyn) Allergy Severe Anaphylaxis Verified 05/15/24 13:21 tazobactam (From Zosyn) Allergy Severe Anaphylaxis Verified 05/15/24 13:21 sulfamethoxazole (From Allergy Unknown Anaphylaxis Verified 05/15/24 13:21 Bactrim) trimethoprim (From Bactrim) Allergy Unknown Anaphylaxis Verified 05/15/24 13:21 latex Allergy Rash Verified 05/15/24 13:21 pyrethrins Allergy Anaphylaxis Verified 05/15/24 13:21 tetanus and diphtheria Allergy Anaphylaxis Verified 05/15/24 13:21 toxoids (Tetanus&Diphtheria Toxoid) Family History Mother Diabetes Dementia Father Diabetes Myocardial infarction Surgical History Hx of toe surgery History of partial ray amputation of fifth toe of right foot Hx of total knee arthroplasty History of nasal septoplasty History of cholecystectomy History of thyroidectomy H/O arthroscopic knee surgery (11/2019) H/O amputation of lesser toe (05/05/17) Social History household members: none Smoking Status: Current some day smoker tobacco type: e-cigarettes alcohol intake: current alcohol intake frequency: holidays/special occasions only substance use type: does not use Review of Systems (Anesthesia) ROS Narrative System reviewed and no additional complaints, except as documented. Physical Exam Resp clear to auscultation bilaterally Auscultation: clear to auscultation bilaterally
[2024-05-22] MEDS: Lactated Ringers 1,000 ML 15 ML IV (15:00)
[2024-05-22] MEDS: Bupiv/Epi 0.25% 30 ML Vial (15:25)
--- NOTE | 2024-05-22 16:14 | PCM.POST.ANE ---
Anesthesia: Postop Eval I Current Vital Signs Temperature: 97.2 F Pulse Rate: 65 Blood Pressure: 131/54 Respiratory Rate: 16 Pulse Ox: 94 Oxygen Delivery Method: Room Air Assessment Airway patent: Yes Spontaneous unlabored respirations: Yes Mental status: Awake and Calm nausea: No Vomiting: No Anesthesia Complication: No Fluid Hydration Crystalloid volume administer (ml): 500 Total IV fluid infused: 500 Progress Note Anesthesia document: Postop Eval 1 completed: Yes
--- NOTE | 2024-05-22 16:25 | DCINST_ITS ---
Discharge Instructions Diet Discharge Diet: Carb Control Diet Activity Discharge Activity: - (Non weight bearing 7 days, keep extremity elevated) Follow Up Care Test Results: Test results from this visit will be discussed in further detail at your follow- up appointment, if applicable. Discharge Plan Admission Admit Date/Time: 05/15/24 15:01 Primary Reason for Your Visit: Left heel wound Attending Provider: Ama Spring Primary Care Provider: Gulshan Early Chi Consulting Providers: Victorino Solano; Zack Smith; Pérez Araya; Cristóbal Ness; Victorino Mixon Instructions Patient Instructions: Diabetes Foot Infections Tx, Diabetes Foot Injury Tx, Diabetes Food Shop Meals Prep Additional Instructions / Restrictions: DISCHARGE INSTRUCTIONS PLEASE READ *Please take this with you to your next doctors appointment* - You will need to take 3 more weeks of oral antibiotics, the scripts have been called into the [place] pharmacy -You will need to follow on Monday at the wound care center 05/27/[address] Solano -You required a decreased dose of metoprolol so he will be on metoprolol 50 mg extended release, new prescription will be called in for this. You will discontinue the 200 mg, it is important to not take these together -Your losartan was also decreased to 50mg -You will need to use Lovenox subcutaneous injection once daily to help prevent blood clots. Please discuss this with your surgeon at your follow-up appointment regarding optimal duration. A 2-week supply will be sent in in the interim -Please follow-up with Dr. Smith with podiatry upon discharge. Please call their office to schedule hospital follow-up appointment upon discharge. -Per podiatry you are remain non-weight bearing to the Left Lower Extremity with assistance of walker and CAM boot for 7 days. Resume protective weightbearing in CAM boot 05/29/2024. Keep LLE elevated for post-operative edema control. -Please call your primary care provider's office upon discharge to schedule a hospital follow up within 1 week. -For any concerning signs or symptoms please call 911 or proceed to the nearest emergency department Discharge Orders/Prescriptions Prescriptions: New cefdinir 300 mg Capsule 300 mg PO Q12 21 Days Qty: 42 0RF doxycycline monohydrate 100 mg Capsule 100 mg PO BID 21 Days Qty: 42 0RF metoprolol succinate 50 mg Tablet Extended Release 24 Hr 50 mg PO DAILY 30 Days Qty: 30 0RF metronidazole 500 mg Tablet 500 mg PO TID 21 Days Qty: 63 0RF enoxaparin 40 mg/0.4 mL Syringe 40 mg subcut DAILY 14 Days Qty: 5.6 0RF Continued omeprazole 40 mg capsule,delayed release(DR/EC) 40 mg PO DAILY aspirin [Adult Low Dose Aspirin] 81 mg tablet,delayed release (DR/EC) 81 mg PO DAILY (DME) pen needle, diabetic [BD Ultra-Fine Catalina Pen Needle] 32 gauge x 5/32 needle See Rx Instructions .Route Qty: 100 3RF Rx Instructions: daily Fiasp FlexTouch U-100 Insulin 100 unit/mL (3 mL) insulin pen 10 unit subcut TID Qty: 9 5RF (DME) True Metrix Glucose Test Strip Strip See Rx Instructions .Route Qty: 100 6RF Rx Instructions: three times dailyl glimepiride 4 mg tablet 4 mg PO DAILY Qty: 30 6RF paroxetine HCl 40 MG tablet 40 mg PO DAILY pregabalin 150 MG capsule 150 mg PO TID rosuvastatin [Crestor] 40 mg Tablet 40 mg PO DAILY dapagliflozin propanediol [Farxiga] 10 mg tablet 10 mg PO DAILY acetaminophen 500 mg Tablet 1,000 mg PO Q6H PRN PRN (Reason: Pain Score 1-3) Qty: 0 0RF vitamin B complex [Vitamins B Complex] Capsule 1 cap PO DAILY oxycodone 5 mg Tablet 5 mg PO Q4H PRN PRN (Reason: Pain Score 6-10 Or Pre Pt/Ot) 5 Days Qty: 42 0RF albuterol sulfate 90 mcg/actuation HFA aerosol inhaler 1 puff inhalation Q6H PRN PRN (Reason: shortness of breath or wheezing) Mounjaro 7.5 mg/0.5 mL pen injector 7.5 mg subcut QWEEK celecoxib 200 mg capsule 200 mg PO DAILY doxepin 25 mg capsule 25 mg PO QHS potassium chloride [Klor-Con M20] 20 mEq Tablet,Er Particles/Crystals 20 meq PO DAILY trazodone 150 mg tablet 150 mg PO QHS levothyroxine 150 mcg tablet 150 mcg PO DAILY montelukast 10 mg tablet 10 mg PO DAILY Changed losartan 100 mg tablet 50 mg PO DAILY Qty: 30 0RF Discontinued metoprolol succinate 200 mg tablet extended release 24 hr 200 mg PO DAILY Drew (with collagen) 7-7-1.5 gram Powder In Packet 1 packet PO BIDCM 30 Days Qty: 60 0RF Referrals / Follow Up: Zack Smith DPM [Med Staff - Active Staff] - Within 1 Week Victorino Mixon MD [Med Staff - Active Staff] - (Follow as needed) Victorino Solano MD [Med Staff - Active Staff] - 05/27/24 Gulshan Early Chi, MD [Primary Care Provider] - Within 1 Week Disposition Disposition (needs filled in before D/C Order can be placed): Home, Self Care
--- NOTE | 2024-05-22 16:30 | DS.PCM_ITS ---
Providers Date of Admission: 05/15/24 Date of Discharge: 05/22/24 Primary Care Physician: Dr. 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 Routine Comment: Consult: Plastic Surgery Routine Consulting Provider: Victorino Solano Reason for Consult: left ankle ulcer EMERGENT Consult: No Notified: Yes Date Notified: 05/15/24 Time Notified: 15:13 Method of Notification: Verbal Consult: Podiatry Routine Consulting Provider: Zack Smith Reason for Consult: left ankle ulcer EMERGENT Consult: No Notified: Yes Date Notified: 05/15/24 Time Notified: 19:50 Method of Notification: Text Comments:: podiatry already aware of patient 05/17/24 14:42 Consult: Vascular Surgery Routine Consulting Provider: Pérez Araya Reason for Consult: Non healing wound left lower posterior leg. Left HIMA-0.76 EMERGENT Consult: No Notified: Yes Date Notified: 05/17/24 Time Notified: 14:42 Method of Notification: Verbal 05/18/24 09:37 Consult: Infectious Disease Routine Consulting Provider: Victorino Mixon Reason for Consult: Staph aureus infection EMERGENT Consult: No Notified: Yes Date Notified: 05/18/24 Time Notified: 09:38 Method of Notification: Text Reason For Visit: CHRONIC LEFT DIABETIC ULCER Diagnosis Discharge Diagnosis (1) Wound of left ankle: Status: Acute Code(s): S91.002A - Unspecified open wound, left ankle, initial encounter Plan # Left posterior ankle wound over Achilles tendon growing MSSA status postdebridement and wound VAC placement #Type 2 diabetes mellitus #Hypertension #Hypothyroidism # Depression # Chronic normocytic anemia # Diabetic neuropathy Medications at Discharge Home Medications omeprazole 40 mg capsule,delayed release 40 mg PO DAILY ACID REFLUX 10/18/18 paroxetine HCl 40 mg tablet 40 mg PO DAILY DEPRESSION 10/29/19 pregabalin 150 mg capsule 150 mg PO TID NERVE PAIN 10/29/19 aspirin 81 mg tablet,delayed release (Adult Low Dose Aspirin) 81 mg PO DAILY HEART HEALTH 07/21/20 rosuvastatin 40 mg tablet (Crestor) 40 mg PO DAILY CHOLESTEROL 08/26/22 pen needle, diabetic 32 gauge x /32 (BD Ultra-Fine Catalina Pen Needle) #100 ea 06/05/23 dapagliflozin propanediol 10 mg tablet (Farxiga) 10 mg PO DAILY DIABETES 03/01/23 blood sugar diagnostic (True Metrix Glucose Test Strip) #100 ea 03/24/23 glimepiride 4 mg tablet 4 mg PO DAILY diabetes #30 tabs 04/10/23 insulin aspart (niacinamide)(U-100) 100 unit/mL(3 mL) subcutaneous pen (Fiasp FlexTouch U-100 Insulin) 10 unit subcut TID diabetes #9 mL 05/29/23 albuterol sulfate 90 mcg/actuation aerosol inhaler 1 puff inhalation Q6H PRN PRN shortness of breath or wheezing 01/19/24 tirzepatide 7.5 mg/0.5 mL subcutaneous pen injector (Mohilaria) 7.5 mg subcut QWEEK diabetes 01/19/24 celecoxib 200 mg capsule 200 mg PO DAILY pain 02/21/24 doxepin 25 mg capsule 25 mg PO QHS sleep 02/21/24 levothyroxine 150 mcg tablet 150 mcg PO DAILY hypothyroid 02/21/24 montelukast 10 mg tablet 10 mg PO DAILY allergies/asthma 02/21/24 potassium chloride 20 mEq tablet,extended release(part/cryst) (Klor-Con M) 20 meq PO DAILY potassium supplement 02/21/24 trazodone 150 mg tablet 150 mg PO QHS sleep 02/21/24 acetaminophen 500 mg tablet 1,000 mg (2 x 500 mg) PO Q6H PRN PRN Pain Score 1-3 #0 tabs 04/02/24 vitamin B complex (Vitamins B Complex capsule) 1 cap PO DAILY 05/15/24 cefdinir 300 mg capsule 300 mg PO Q12 3 weeks #42 caps 05/22/24 doxycycline monohydrate 100 mg capsule 100 mg PO BID 3 weeks #42 caps 05/22/24 enoxaparin 40 mg/0.4 mL subcutaneous syringe 40 mg (0.4 mL) subcut DAILY 14 days #5.6 mL 05/22/24 losartan 100 mg tablet 50 mg (1/2 x 100 mg) PO DAILY BLOOD PRESSURE #30 tabs 05/22/24 metoprolol succinate 50 mg tablet,extended release 24 hr 50 mg PO DAILY 30 days #30 tabs 05/22/24 metronidazole 500 mg tablet 500 mg PO TID 3 weeks #63 tabs 05/22/24 oxycodone 5 mg tablet 5 mg PO Q4H PRN PRN Pain Score 6-10 Or Pre Pt/Ot 5 days #42 tabs 05/22/24 Hospital Course Procedures Wound vac placement and - (05/15 debridement and wound VAC, 05/20 debridement and wound VAC, 05/22 graft placement and wound VAC) Summary of Care Provided Minutes Spent on Discharge: 40 Hospital Course: 58-year-old female history of type 2 diabetes, hypertension, hypothyroidism, depression, anemia, diabetic neuropathy presented to [facility] ED 05/15/2024 due to left Achilles wound. Patient taken to the OR 05/15 with podiatry and plastic surgery and had debridement and wound VAC placed. Patient grew MSSA and wound and ID consulted and adjusted antibiotics for p.o. Doxy, cefdinir, Flagyl. Patient taken back to the OR 05/20 for wound VAC change and repeat debridement and tolerated that well, then taken OR 05/22/2024 with graft application and wound VAC. Patient tolerated this very well and plastic surgery comfortable with patient discharge home same day after surgery with antibiotics, Lovenox, follow-up planned for May 27. Patient tolerated procedure well. Discharge instructions as followed: DISCHARGE INSTRUCTIONS PLEASE READ *Please take this with you to your next doctors appointment* - You will need to take 3 more weeks of oral antibiotics, the scripts have been called into the [facility] pharmacy -You will need to follow on Monday at the wound care center 05/27/[address] Solano -You required a decreased dose of metoprolol so he will be on metoprolol 50 mg extended release, new prescription will be called in for this. You will discontinue the 200 mg, it is important to not take these together -Your losartan was also decreased to 50mg -You will need to use Lovenox subcutaneous injection once daily to help prevent blood clots. Please discuss this with your surgeon at your follow-up appointment regarding optimal duration. A 2-week supply will be sent in in the interim -Please follow-up with Dr. Smith with podiatry upon discharge. Please call their office to schedule hospital follow-up appointment upon discharge. -Per podiatry you are remain non-weight bearing to the Left Lower Extremity with assistance of walker and CAM boot for 7 days. Resume protective weightbearing in CAM boot 05/29/2024. Keep LLE elevated for post-operative edema control. -Please call your primary care provider's office upon discharge to schedule a hospital follow up within 1 week. -For any concerning signs or symptoms please call 911 or proceed to the nearest emergency department Physical Exam Narrative General: Alert, oriented, no apparent distress HEENT: Atraumatic, normocephalic Eyes: Anicteric, normal conjunctiva, extraocular movements grossly intact Neck: Supple Respiratory: Clear to auscultation bilaterally, normal respiratory effort Cardiovascular: Regular rate and rhythm GI: Soft, nontender, nondistended Extremities: No significant pitting edema Musculoskeletal: Moving all extremities, left lower with wound VAC in place Neuro: No overt focal neurological deficits Skin: Left lower extremity wrapped Psych: Cooperative Weight / BMI Weight Weight: 104.3 kg Body Mass Index (BMI) 34.9 ABG / Lab / Microbiology Data 05/22/24 05:13 05/22/24 05:13 Laboratory: Laboratory Results - last 24 hr 05/21/24 16:13: POC Glucose 321 H 05/21/24 22:59: POC Glucose 253 H 05/22/24 05:13: WBC 5.9, RBC 4.18 L, Hgb 10.6 L, Hct 35.6 L, MCV 85.2, MCH 25.4 L, MCHC 29.8 L, RDW Std Deviation 45.0 H, RDW Coeff of Kami 14.6, Plt Count 253, MPV 9.5, Immature Gran % (Auto) 0.700, Neut % (Auto) 39.9 L, Lymph % (Auto) 46.5 H, [place] % (Auto) 7.8, Eos % (Auto) 4.4, Baso % (Auto) 0.7, Absolute Neuts (auto) 2.4, Absolute Lymphs (auto) 2.75, Nucleated RBC % 0, PT 14.5, INR 1.1, APTT 31.0, Sodium 135 L, Potassium 3.9, Chloride 100, Carbon Dioxide 31.0, Anion Gap 4 L, BUN 36 H, Creatinine 0.85, Estim Creat Clear Calc 90.07, Est GFR (MDRD) Af Amer 88, Est GFR (MDRD) Non-Af 73, BUN/Creatinine Ratio 42.4 H, Glucose 237 H, Calcium 8.6 05/22/24 06:20: POC Glucose 222 H 05/22/24 12:05: POC Glucose 191 H Microbiology: Microbiology 05/20/24 08:21 Tissue - Left Foot Gram Stain - Final 05/20/24 08:21 Tissue - Left Foot Wound Culture - Preliminary No growth-Final to follow 05/20/24 08:21 Tissue - Left Foot Anaerobic Culture - Preliminary No growth in 48 hours. 05/15/24 Unknown Tissue - Ankle Gram Stain - Final 05/15/24 Unknown Tissue - Ankle Wound Culture - Final Staphylococcus aureus 05/15/24 Unknown Tissue - Ankle Anaerobic Culture - Final Anaerobic cocci D/C Instructions Discharge Diet: Carb Control Diet Meaningful Use Info Meaningful Use Meaningful Use Diagnoses (Choose all that apply): None applicable Ischemic Stroke Statin Dosing Therapy Reference: STATIN DOSE THERAPY REFERENCE: * Patients > 75 years receive moderate or high dose statin therapy. * Patients 75 years or YOUNGER should receive HIGH intensity statin dose unless contraindicated. You will be required to document reason for non-treatment if statin daily dose does not meet guidelines. HIGH DOSE STATIN THERAPY DAILY Atorvastatin > than or = to 40 mg Rosuvastatin > than or = to 20 mg Amlodipine + Atorvastatin > than or = to 2.5/40 mg Ezetimibe + Simvastatin 10/80 mg Simvastatin 80mg Discharge Plan Admission Admit Date/Time: 05/15/24 15:01 Primary Reason for Your Visit: Left heel wound Attending Provider: Ama Spring Primary Care Provider: Gulshan Early Chi Consulting Providers: Victorino Solano; Zack Smith; Pérez Araya; Cristóbal Ness; Victorino Mixon Instructions Patient Instructions: Diabetes Foot Infections Tx, Diabetes Foot Injury Tx, Diabetes Food Shop Meals Prep Additional Instructions / Restrictions: DISCHARGE INSTRUCTIONS PLEASE READ *Please take this with you to your next doctors appointment* - You will need to take 3 more weeks of oral antibiotics, the scripts have been called into the [facility] pharmacy -You will need to follow on Monday at the wound care center 05/27/[address] Solano -You required a decreased dose of metoprolol so he will be on metoprolol 50 mg extended release, new prescription will be called in for this. You will discontinue the 200 mg, it is important to not take these together -Your losartan was also decreased to 50mg -You will need to use Lovenox subcutaneous injection once daily to help prevent blood clots. Please discuss this with your surgeon at your follow-up appointment regarding optimal duration. A 2-week supply will be sent in in the interim -Please follow-up with Dr. Smith with podiatry upon discharge. Please call their office to schedule hospital follow-up appointment upon discharge. -Per podiatry you are remain non-weight bearing to the Left Lower Extremity with assistance of walker and CAM boot for 7 days. Resume protective weightbearing in CAM boot 05/29/2024. Keep LLE elevated for post-operative edema control. -Please call your primary care provider's office upon discharge to schedule a hospital follow up within 1 week. -For any concerning signs or symptoms please call 911 or proceed to the nearest emergency department Discharge Orders/Prescriptions Prescriptions: New cefdinir 300 mg Capsule 300 mg PO Q12 21 Days Qty: 42 0RF doxycycline monohydrate 100 mg Capsule 100 mg PO BID 21 Days Qty: 42 0RF metoprolol succinate 50 mg Tablet Extended Release 24 Hr 50 mg PO DAILY 30 Days Qty: 30 0RF metronidazole 500 mg Tablet 500 mg PO TID 21 Days Qty: 63 0RF enoxaparin 40 mg/0.4 mL Syringe 40 mg subcut DAILY 14 Days Qty: 5.6 0RF Continued omeprazole 40 mg capsule,delayed release(DR/EC) 40 mg PO DAILY aspirin [Adult Low Dose Aspirin] 81 mg tablet,delayed release (DR/EC) 81 mg PO DAILY (DME) pen needle, diabetic [BD Ultra-Fine Catalina Pen Needle] 32 gauge x 5/32 needle See Rx Instructions .Route Qty: 100 3RF Rx Instructions: daily Fiasp FlexTouch U-100 Insulin 100 unit/mL (3 mL) insulin pen 10 unit subcut TID Qty: 9 5RF (DME) True Metrix Glucose Test Strip Strip See Rx Instructions .Route Qty: 100 6RF Rx Instructions: three times dailyl glimepiride 4 mg tablet 4 mg PO DAILY Qty: 30 6RF paroxetine HCl 40 MG tablet 40 mg PO DAILY pregabalin 150 MG capsule 150 mg PO TID rosuvastatin [Crestor] 40 mg Tablet 40 mg PO DAILY dapagliflozin propanediol [Farxiga] 10 mg tablet 10 mg PO DAILY acetaminophen 500 mg Tablet 1,000 mg PO Q6H PRN PRN (Reason: Pain Score 1-3) Qty: 0 0RF vitamin B complex [Vitamins B Complex] Capsule 1 cap PO DAILY oxycodone 5 mg Tablet 5 mg PO Q4H PRN PRN (Reason: Pain Score 6-10 Or Pre Pt/Ot) 5 Days Qty: 42 0RF albuterol sulfate 90 mcg/actuation HFA aerosol inhaler 1 puff inhalation Q6H PRN PRN (Reason: shortness of breath or wheezing) Mounjaro 7.5 mg/0.5 mL pen injector 7.5 mg subcut QWEEK celecoxib 200 mg capsule 200 mg PO DAILY doxepin 25 mg capsule 25 mg PO QHS potassium chloride [Klor-Con M20] 20 mEq Tablet,Er Particles/Crystals 20 meq PO DAILY trazodone 150 mg tablet 150 mg PO QHS levothyroxine 150 mcg tablet 150 mcg PO DAILY montelukast 10 mg tablet 10 mg PO DAILY Changed losartan 100 mg tablet 50 mg PO DAILY Qty: 30 0RF Discontinued metoprolol succinate 200 mg tablet extended release 24 hr 200 mg PO DAILY Drew (with collagen) 7-7-1.5 gram Powder In Packet 1 packet PO BIDCM 30 Days Qty: 60 0RF Referrals / Follow Up: Zack Smith DPM [Med Staff - Active Staff] - Within 1 Week Victorino Mixon MD [Med Staff - Active Staff] - (Follow as needed) Victorino Solano MD [Med Staff - Active Staff] - 05/27/24 Gulshan Early Chi, MD [Primary Care Provider] - Within 1 Week Disposition Disposition (needs filled in before D/C Order can be placed): Home, Self Care Charges/Coding Visit Charges Inpatient E&M: 85256 Disch Hosp >30min
[2024-05-22] MEDS: Enoxaparin 40 MG/0.4 ML Syringe SC (17:56)
[2024-05-22] MEDS: Pantoprazole Sodium 40 MG Tablet PO (17:56)
[2024-05-22] MEDS: Celecoxib 200 MG Capsule PO (17:57)
[2024-05-22] MEDS: Cefdinir 300 MG Capsule PO (17:57)
[2024-05-22] MEDS: Aspirin E.C. 81 MG Tablet PO (17:57)
[2024-05-22] MEDS: Vitamin B Comp W-C Capsule 1 CAP PO (17:58)
[2024-05-22] MEDS: Paroxetine 20 MG Tablet 40 MG PO (17:59)
[2024-05-22] MEDS: Doxycycline 100 MG CAPSULE PO (17:59)
[2024-05-22] MEDS: Losartan Potassium 50 MG Tablet PO (17:59)
[2024-05-22] MEDS: Montelukast 10 MG Tablet PO (17:59)
[2024-05-22] MEDS: Potassium Chloride Oral Tablet 20 MEQ PO (18:00)
[2024-05-22] MEDS: Glimepiride 4 MG Tablet PO (18:01)
[2024-05-22] MEDS: Metoprolol(XL)Succ 50 MG Tablet PO (18:02)
[2024-05-22 18:35] LABS: Bedside Glucose 185 mg/dL (74-106)
--- NOTE | 2024-05-23 08:42 | ANES.CONF2 ---
Anesthesia: Confirm Documents Multiple Procedures on Account (3) Confirmed Documents: Yes
== END 2024-05-22 20:05 | disposition home or self-care (01) | DRG 623 ==
LOC: MS3 05-16 07:35 → SDC 05-16 08:31 → MS3 05-16 08:31
PROVIDERS: Anesthesiology; Surgery Plastic and Reconstructive Surgery; Admitting Provider Student in an Organized Health Care Education/Training Program; PCP Family Medicine Geriatric Medicine; Referring Provider Internal Medicine; Visit Provider Internal Medicine
PROC: 0JBR0ZZ Excision of Left Foot Subcutaneous Tissue and Fascia, Open Approach (ICD-10-PCS; principal; 2024-05-15 14:15)
PROC: 0KBW0ZZ Excision of Left Foot Muscle, Open Approach (ICD-10-PCS; principal; 2024-05-20 07:15)
PROC: 0LBT0ZZ Excision of Left Ankle Tendon, Open Approach (ICD-10-PCS; principal; 2024-05-22 14:30)
DX: E11.622 Type 2 diabetes mellitus with other skin ulcer (principal); L97.223 Non-pressure chronic ulcer of left calf with necrosis of muscle; L97.423 Non-pressure chronic ulcer of left heel and midfoot with necrosis of muscle; E11.42 Type 2 diabetes mellitus with diabetic polyneuropathy; D64.9 Anemia, unspecified; E03.9 Hypothyroidism, unspecified; B95.61 Methicillin susceptible Staphylococcus aureus infection as the cause of diseases classified elsewhere; E11.51 Type 2 diabetes mellitus with diabetic peripheral angiopathy without gangrene; E66.01 Morbid (severe) obesity due to excess calories; I10 Essential (primary) hypertension; F32.A Depression, unspecified; S80.852A Superficial foreign body, left lower leg, initial encounter; Z79.4 Long term (current) use of insulin; E78.5 Hyperlipidemia, unspecified; F17.210 Nicotine dependence, cigarettes, uncomplicated; E11.65 Type 2 diabetes mellitus with hyperglycemia; F32.9 Major depressive disorder, single episode, unspecified; Z79.891 Long term (current) use of opiate analgesic; Z79.84 Long term (current) use of oral hypoglycemic drugs; Z68.35 Body mass index [BMI] 35.0-35.9, adult; Z79.85 Long-term (current) use of injectable non-insulin antidiabetic drugs; Z79.890 Hormone replacement therapy
CPT/HCPCS: 36415; 80048; 82962; 83735; 84100; 85025; 85027; 85610; 85730; 87015; 87070; 87075; 87077; 87102; 87116; 87176; 87186; 87205; 87206; 87640; 93005; 93923; 97110; 97162; 97166; 97530; 97802; 99406; J7030; J7040; J7120; A4216; J2405

== ENCOUNTER 2024-06-05 13:00 | Outpatient (RCR) | payer MEDICARE, MEDICAID, SELFPAY ==
[2024-05-29 13:32] VITALS: BP 125/77; PULSE 100; RESP 18; TEMP 36.4; BMI 34.9
--- NOTE | 2024-05-29 16:13 | PCM.WC.PN ---
History of Present Illness Date of Service: 05/29/24 Chief Complaint: Surgical dehiscence with exposure of the Achilles tendon left lower extremity History of Wound: 58 y/o female with DM type II with peripheral polyneuropathy, peripheral vascular disease, asthma, morbid obesity, HTN, and hyperlipidemia presents to the wound care center for continued care of surgical dehiscence of her posterior left lower extremity with exposure of the Achilles tendon. Patient underwent surgical intervention to correct calcaneal gait with plantar ulceration of the left heel on 01/26/2024. At that time of surgery she was found to have tendo Achilles tear to the left lower extremity resulting in a calcaneal gait. Tendon was debrided and a shortening of the tendo Achilles was performed in addition to FHL tendon transfer. 3 weeks later patient had fallen placing weight to the foot resulting in a tear and dehiscence of the surgical site with exposure of the Achilles tendon. She was returned to the OR for debridement on 02/22/2024 and wound VAC was applied over ulcerative area. She did have PICC line and completed 6 weeks of IV antibiotics during stay in the transitional care unit. She completed IV antibiotic 04/04/2024 PICC line was pulled and she was discharged from the transitional care unit to home. Surgery by Dr. Solano on 05/20/23 for Excision of left posterior ankle wound, including biofilm, subcutaneous tissue, fascia, and tendon, 7 x 3 cm and Irrigating wound VAC, vera flow, not disposable AND 05/22/24 - Excision of left posterior ankle wound, including biofilm, subcutaneous tissue, fascia, and tendon and Placement of dermal substitute (Integra) and wound VAC placed. Operative culture 05/15/24 positive for MSSA and Anaerobic cocci. She is still being treated with Doxy, cefdinir, Flagyl. She denies N/V/F/chills. Denies further complaints. Progress of Wound: Postop visit for her left posterior ankle wound debridement with placement of Integra. Integra is sutured in place. It is a nice pink color. There is some moisture on the distal edge of the ulcer. She is tolerating the wound VAC. Left pedal pulse +2 palp. She does have +2 edema of her left foot and lower leg. She has been wearing her CAM boot/walker. She is tolerating antibiotics. Objective Data Objective Data Vital Signs: Vital Signs Temp Pulse Resp BP 97.5 F L 100 18 125/77 H 05/29/24 13:32 05/29/24 13:32 05/29/24 13:32 05/29/24 13:32 Weight: 230 lb Body Mass Index (BMI) 34.9 Charges/Coding Procedures Integumentary 111xxx-113xx: 39711 Global Visit Debridement Note Debridement Note No debridement was completed: No debridement was completed today Post-Debridement Measurements and Additional Note: Post-Debridement Measurements/Treatment - Nurse 1 - General Ulcer Assessment Start: 05/29/24 13:32 Freq: Status: Active Protocol: [email or web address] Activity Type Activity Date Activity User E-sign Co-sign Detail Recorded Client Recorded Date Recorded By Document 05/29/24 13:32 RB [id number] 05/29/24 13:42 RB 05/29/24 13:32 - Today's Visit Information Type of service Initial Visit Arrival Mode Ambulatory, Walker Transfer Assistance None Patient Identification Verified (Name & Yes ) Patient Requires Transmission-Based No Precautions Height and Weight Height 5 ft 8 in Weight 230 lb Weight in Pounds 230.0 lbs Body Mass Index (BMI) 34.9 BMI Classification Obese BSA - Charlene 2.17 Vital Signs Temperature (97.8 F-99.1 F) 97.5 F L Temperature Source Temporal Pulse Rate (60-100) 100 Pulse Location Monitor Respiratory Rate (12-18) 18 Respiratory rate source Observation Blood Pressure (90/60-120/80) 125/77 H Blood Pressure Mean (mm Hg) 93 Source Monitor Position Semi-Fowlers Blood Pressure Location Left Arm History Since Last Visit- (Skip if this is Patient's initial visit) Have you changed medications since your No last visit? Any new allergies or adverse reactions No Had a fall/change in ADL's that may No increase risk of falls Signs or symptoms of abuse and/or No neglect since last visit Have you been in the hospital since your Yes last visit? Has dressing in place as prescribed Yes Has compression in place as prescribed No Has offloadiing in place as prescribed No Experienced any changes in pain level or No management Pain Scale: 0-10 Numeric Is Patient Pain Free? No L posterior ankle -Description Throbbing -Intensity 5 -Duration (hours) Acute -Pain Behavior Withdrawal from Touch -Pain Aggravating Factors Exercise/ Activity -Alleviating Factors/Interventions Medication -Effectiveness of Alleviating Factor/ Moderately Intervention effective Lower Extremity Assessment/ Foot Assessment/ Toe Nail Assessment Right -Posterior Tibial Palpable Yes -Dorsalis Pedis Palpable Yes -Hair Growth on Legs No -Hair Growth on Toes No -Temperature of Extremity Warm -Capillary Refill Greater than 3 Seconds -Dependent Rubor No -Blanched when Elevated No -Lipodermatosclerosis No -Other Deformity No -Prior Foot Ulcer No -Charcot Joint No -Prior Amputation Yes -Thick Yes -Discolored Yes -Deformed Yes -Improper Length & Hygeine No Left -Posterior Tibial Palpable Yes -Dorsalis Pedis Palpable Yes -Extremity Color Normal -Hair Growth on Legs No -Hair Growth on Toes No -Temperature of Extremity Warm -Capillary Refill Less than 3 Seconds -Dependent Rubor No -Blanched when Elevated No -Lipodermatosclerosis No -Other Deformity No -Prior Foot Ulcer No -Charcot Joint No -Prior Amputation Yes -Thick Yes -Discolored Yes -Deformed Yes -Improper Length & Hygeine No Neuropathy Assessment Feet - Top Side and Bottom <Entered> (a) Communication Assessment Preferred language Macedonian Director Phone Required No Able to Read Yes Able to Write Yes Communication Tools None Caregiver Communication Skills No Impairment Impairment Right Hearing Abillity Normal Left Hearing Abillity Normal Visual Assistive Devices Glasses Teaching Assessment Preferences Verbal,Written, Demonstration Barriers to Learning None Readiness To Learn Good Willingness to Engage in Self Management Med Activies Readiness to Engage in Self Management Med Activities Anxiety Level Calm Cooperation Cooperative Perception Coherent Interest in Health Problem Asks Questions Education Importance Acknowledges Need Does Patient Smoke tobacco or other No substances Smoking Status Light Smoker (< 10/day) Is Patient Diabetic Yes Functional Assessment Recent Decline in Ability to Perform Denies Any Declines Assistive Device With Patient No Culture/Denominational/Answering Service Operator Cultural/Denominational Needs that may affect No Treatment Plan Would you allow our hospital director biostatistics to No meet you for the purpose of spiritual/ emotional support? Answering Service Operator to contact place of spiritism No Teaching: Wound Center *Welcome to the Wound Center -Person Taught Patient -Teaching Method Discussion -Response to teaching Verbalize Understanding (a) 1 - + throughout WC - Nurse 1 - General Ulcer Measurement Start: 05/29/24 13:32 Freq: Status: Active Protocol: Activity Type Activity Date Activity User E-sign Co-sign Detail Recorded Client Recorded Date Recorded By Document 05/29/24 13:32 RB [id number] 05/29/24 13:42 RB 05/29/24 13:32 Wound Center Nurse 1 5. L post ankle/ Achilles repair post-op -Combined with other wound No -Current Size (cm) - Length 7 -Current Size (cm) - Width 3 -Current Size (cm) - Depth 0.3 -Total Square Cm 21 -Photo Taken Yes -Tunneling No -Undermining/Tunneling No -Circular Undermining No -Exudate Amt Large -Exudate Type Serosanguineous -Wound Margin Distinct, Outline Attached -Granulation Amt Large (67-100%) -Granulation Quality [place] -Slough/Fibrin Yes -Necrosis Amt Small (1-33%) -Necrotic Tissue Type Adherent Slough -Structure Exposed N/A -Texture (Yanely-wound Skin Appearance) Assessed -Moisture (Yanely-wound Skin Appearance) Assessed -Color (Yanely-wound Skin Appearance) Assessed -Temperature (Yanely-wound Skin No Abnormality Appearance) (Pt Warm) -Tenderness on Palpation (Yanely-wound No Skin Appearance) -Ulcer Cleansing Wound Cleanser -Foul Odor after Cleansing No -Anesthetic Used 4% Lidocaine Solution -Wound Comment(s) sutures noted around periulcer of wound Lower Limb Edema Present Yes Left Calf (cm) 37.4 Left Ankle (cm) 25.5 WC - Nurse 2 - General Ulcer CM Notes Start: 05/29/24 13:32 Freq: Status: Active Protocol: Activity Type Activity Date Activity User E-sign Co-sign Detail Recorded Client Recorded Date Recorded By Document 05/29/24 14:10 [id number] 05/29/24 14:14 05/29/24 14:10 Wound Center Nurse 2 5. L post ankle/ Achilles repair post-op -Time 14:10 -Correct Patient Yes -Correct Side, Site, Position Yes -Wound/Ulcer Outcome Not Healed -Ulcer Cleansing Not Cleansed -Wound Comment(s) post op, sutures are intact Pain Scale: 0-10 Numeric Is Patient Pain Free? Yes WC - Nurse 3 - General Ulcer D/C NN Start: 05/29/24 13:32 Freq: Status: Active Protocol: Activity Type Activity Date Activity User E-sign Co-sign Detail Recorded Client Recorded Date Recorded By Document 05/29/24 14:31 RB [id number] 05/29/24 14:33 RB Document 05/29/24 15:59 RB [id number] 05/29/24 16:00 RB 05/29/24 05/29/24 14:31 15:59 Wound Care Center Nurse 3 5. L post ankle/ Achilles repair post-op -Negative Pressure Wound Therapy Continue -Setting (mmHg) 125 -Negative Pressure is Continuous -Primary Dressing Covered/Secured with Dry Gauze,Dry Gauze & Roll Gauze,Secured with Tape -NPWT Application Charge NPWT </= 50 sq cm ($) -Wound Comment(s) renita GONZALEZ applied vac and mustapha wrap Treatment Response Procedure Tolerated Well Pain Scale: 0-10 Numeric Is Patient Pain Free? No Yes WC - Visit Discharge Discharge Condition Stable Stable Ambulatory Status Ambulatory Ambulatory Transportation Private Auto Private Auto Medication Reconcilliation completed & No No provided to patient/care provider Clinical Summary of Care Provided Yes Yes Notes: dry dressing applied to wound . pt went back home to collect vac dressing to apply today at wound center. 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 Wound care - Wound VAC at 125 mmHg dressing changes at the wound healing center. Compression - Mustapha wrap. Off load- use CAM walker to off load. Instructed to keep foot elevated as much as possible. Follow up Monday with Dr. Solano.
--- NOTE | 2024-05-30 08:46 | WC ---
PHOTO 05/29/24 POST ANKLE
[2024-06-05 13:05] VITALS: BP 128/66; PULSE 79; RESP 18; TEMP 36.2; BMI 34.9
--- NOTE | 2024-06-05 15:34 | PCM.WC.PN ---
History of Present Illness Date of Service: 06/05/24 Chief Complaint: Surgical dehiscence with exposure of the Achilles tendon left lower extremity History of Wound: 58 y/o female with DM type II with peripheral polyneuropathy, peripheral vascular disease, asthma, morbid obesity, HTN, and hyperlipidemia presents to the wound care center for continued care of surgical dehiscence of her posterior left lower extremity with exposure of the Achilles tendon. Patient underwent surgical intervention to correct calcaneal gait with plantar ulceration of the left heel on 01/26/2024. At that time of surgery she was found to have tendo Achilles tear to the left lower extremity resulting in a calcaneal gait. Tendon was debrided and a shortening of the tendo Achilles was performed in addition to FHL tendon transfer. 3 weeks later patient had fallen placing weight to the foot resulting in a tear and dehiscence of the surgical site with exposure of the Achilles tendon. She was returned to the OR for debridement on 02/22/2024 and wound VAC was applied over ulcerative area. She did have PICC line and completed 6 weeks of IV antibiotics during stay in the transitional care unit. She completed IV antibiotic 04/04/2024 PICC line was pulled and she was discharged from the transitional care unit to home. Surgery by Dr. Solano on 05/20/23 for Excision of left posterior ankle wound, including biofilm, subcutaneous tissue, fascia, and tendon, 7 x 3 cm and Irrigating wound VAC, vera flow, not disposable AND 05/22/24 - Excision of left posterior ankle wound, including biofilm, subcutaneous tissue, fascia, and tendon and Placement of dermal substitute (Integra) and wound VAC placed. Operative culture 05/15/24 positive for MSSA and Anaerobic cocci. She is still being treated with Doxy, cefdinir, Flagyl. She denies N/V/F/chills. Denies further complaints. Progress of Wound: Postop visit for her left posterior ankle wound debridement with placement of Integra. Integra is sutured in place. It is a nice pink color. There is some moisture on the distal edge of the ulcer. She is tolerating the wound VAC. Left pedal pulse +2 palp. She does have +2 edema of her left foot and lower leg. She has been wearing her CAM boot/walker. She is tolerating antibiotics. Objective Data Objective Data Vital Signs: Vital Signs Temp Pulse Resp BP 97.2 F L 79 18 128/66 H 06/05/24 13:05 06/05/24 13:05 06/05/24 13:05 06/05/24 13:05 Weight: 230 lb Body Mass Index (BMI) 34.9 Charges/Coding Procedures Integumentary 111xxx-113xx: 39514 Global Visit Debridement Note Debridement Note No debridement was completed: No debridement was completed today Post-Debridement Measurements and Additional Note: Post-Debridement Measurements/Treatment - Nurse 1 - General Ulcer Assessment Start: 05/29/24 13:32 Freq: Status: Active Protocol: [email or web address] Activity Type Activity Date Activity User E-sign Co-sign Detail Recorded Client Recorded Date Recorded By Document 05/29/24 13:32 RB [id number] 05/29/24 13:42 RB Document 06/05/24 13:05 BM [id number] 06/05/24 13:16 BMF 05/29/24 06/05/24 13:32 13:05 - Today's Visit Information Type of service Initial Visit Follow-up Visit (Physician/MANAGER TRANSFER ) Arrival Mode Ambulatory, Ambulatory, Walker Walker Transfer Assistance None None Patient Identification Verified (Name & Yes Yes ) Patient Requires Transmission-Based No No Precautions Finger Stick Blood Sugar(mg/dl) (if 189 indicated): Blood Sugar Stated by Patient Height and Weight Height 5 ft 8 in Weight 230 lb Weight in Pounds 230.0 lbs Body Mass Index (BMI) 34.9 34.9 BMI Classification Obese Obese BSA - Charlene 2.17 Vital Signs Temperature (97.8 F-99.1 F) 97.5 F L 97.2 F L Temperature Source Temporal Temporal Pulse Rate (60-100) 100 79 Pulse Location Monitor Monitor Respiratory Rate (12-18) 18 18 Respiratory rate source Observation Observation Blood Pressure (90/60-120/80) 125/77 H 128/66 H Blood Pressure Mean (mm Hg) 93 86 Source Monitor Monitor Position Semi-Fowlers Blood Pressure Location Left Arm History Since Last Visit- (Skip if this is Patient's initial visit) Have you changed medications since your No No last visit? Any new allergies or adverse reactions No No Had a fall/change in ADL's that may No No increase risk of falls Signs or symptoms of abuse and/or No No neglect since last visit Have you been in the hospital since your Yes No last visit? Has dressing in place as prescribed Yes Yes Has compression in place as prescribed No Yes Has offloadiing in place as prescribed No Yes Experienced any changes in pain level or No No management Left Footwear Removable Cast Walker/Walking Boot Right Footwear Regular Shoe Pain Scale: 0-10 Numeric Is Patient Pain Free? No Yes L posterior ankle -Description Throbbing -Intensity 5 -Duration (hours) Acute -Pain Behavior Withdrawal from Touch -Pain Aggravating Factors Exercise/ Activity -Alleviating Factors/Interventions Medication -Effectiveness of Alleviating Factor/ Moderately Intervention effective Lower Extremity Assessment/ Foot Assessment/ Toe Nail Assessment Right -Posterior Tibial Palpable Yes -Dorsalis Pedis Palpable Yes -Hair Growth on Legs No -Hair Growth on Toes No -Temperature of Extremity Warm -Capillary Refill Greater than 3 Seconds -Dependent Rubor No -Blanched when Elevated No -Lipodermatosclerosis No -Other Deformity No -Prior Foot Ulcer No -Charcot Joint No -Prior Amputation Yes -Thick Yes -Discolored Yes -Deformed Yes -Improper Length & Hygeine No Left -Posterior Tibial Palpable Yes -Dorsalis Pedis Palpable Yes -Extremity Color Normal -Hair Growth on Legs No -Hair Growth on Toes No -Temperature of Extremity Warm -Capillary Refill Less than 3 Seconds -Dependent Rubor No -Blanched when Elevated No -Lipodermatosclerosis No -Other Deformity No -Prior Foot Ulcer No -Charcot Joint No -Prior Amputation Yes -Thick Yes -Discolored Yes -Deformed Yes -Improper Length & Hygeine No Neuropathy Assessment Feet - Top Side and Bottom <Entered> (a) Communication Assessment Preferred language Estonian Computer Console Operator Required No Able to Read Yes Able to Write Yes Communication Tools None Caregiver Communication Skills No Impairment Impairment Right Hearing Abillity Normal Left Hearing Abillity Normal Visual Assistive Devices Glasses Teaching Assessment Preferences Verbal,Written, Demonstration Barriers to Learning None Readiness To Learn Good Willingness to Engage in Self Management Med Activies Readiness to Engage in Self Management Med Activities Anxiety Level Calm Cooperation Cooperative Perception Coherent Interest in Health Problem Asks Questions Education Importance Acknowledges Need Does Patient Smoke tobacco or other No substances Smoking Status Light Smoker (< 10/day) Is Patient Diabetic Yes Functional Assessment Recent Decline in Ability to Perform Denies Any Declines Assistive Device With Patient No Culture/Episcopalian/Ems Instructor Cultural/Episcopalian Needs that may affect No Treatment Plan Would you allow our hospital general magistrate to No meet you for the purpose of spiritual/ emotional support? Ems Instructor to contact place of jehovah's witness No Teaching: Wound Center *Welcome to the Wound Center -Person Taught Patient -Teaching Method Discussion -Response to teaching Verbalize Understanding (a) 1 - + throughout WC - Nurse 1 - General Ulcer Measurement Start: 05/29/24 13:32 Freq: Status: Active Protocol: Activity Type Activity Date Activity User E-sign Co-sign Detail Recorded Client Recorded Date Recorded By Document 05/29/24 13:32 RB [id number] 05/29/24 13:42 RB Document 06/05/24 13:05 BMF [id number] 06/05/24 13:16 BMF 05/29/24 06/05/24 13:32 13:05 Wound Center Nurse 1 5. L post ankle/ Achilles repair post-op -Combined with other wound No No -Current Size (cm) - Length 7 7.7 -Current Size (cm) - Width 3 2.6 -Current Size (cm) - Depth 0.3 0.1 -Total Square Cm 21 20.02 -Date of Last Picture (Recall this 06/05/24 field) -Photo Taken Yes Yes -Tunneling No No -Undermining/Tunneling No No -Circular Undermining No No -Exudate Amt Large Medium -Exudate Type Serosanguineous Serosanguineous -Wound Margin Distinct, Distinct, Outline Outline Attached Attached -Granulation Amt Large (67-100%) -Granulation Quality [place] -Slough/Fibrin Yes -Necrosis Amt Small (1-33%) -Necrotic Tissue Type Adherent Slough -Structure Exposed N/A -Texture (Yanely-wound Skin Appearance) Assessed Assessed -Moisture (Yanely-wound Skin Appearance) Assessed Assessed -Color (Yanely-wound Skin Appearance) Assessed Assessed -Temperature (Yanely-wound Skin No Abnormality No Abnormality Appearance) (Pt Warm) (Pt Warm) -Tenderness on Palpation (Yanely-wound No No Skin Appearance) -Ulcer Cleansing Wound Cleanser Soap and Water -Foul Odor after Cleansing No No -Anesthetic Used 4% Lidocaine Solution -Wound Comment(s) sutures noted around periulcer of wound Lower Limb Edema Present Yes Yes Left Calf (cm) 37.4 37.5 Left Ankle (cm) 25.5 23.7 WC - Nurse 2 - General Ulcer CM Notes Start: 05/29/24 13:32 Freq: Status: Active Protocol: Activity Type Activity Date Activity User E-sign Co-sign Detail Recorded Client Recorded Date Recorded By Document 05/29/24 14:10 GM [id number] 05/29/24 14:14 GM Document 06/05/24 13:24 DS [id number] 06/05/24 13:24 DS 05/29/24 06/05/24 14:10 13:24 Wound Center Nurse 2 5. L post ankle/ Achilles repair post-op -Time 14:10 13:24 -Correct Patient Yes -Correct Side, Site, Position Yes -Procedure Performed No -Wound/Ulcer Outcome Not Healed -Ulcer Cleansing Not Cleansed -Wound Comment(s) post op, sutures are intact Pain Scale: 0-10 Numeric Is Patient Pain Free? Yes Yes - Nurse 3 - General Ulcer D/C NN Start: 05/29/24 13:32 Freq: Status: Active Protocol: Activity Type Activity Date Activity User E-sign Co-sign Detail Recorded Client Recorded Date Recorded By Document 05/29/24 14:31 RB [id number] 05/29/24 14:33 RB Document 05/29/24 15:59 RB [id number] 05/29/24 16:00 RB Document 06/05/24 13:58 [facility] [id number] 06/05/24 13:58 [facility] 05/29/24 05/29/24 06/05/24 14:31 15:59 13:58 Wound Care Center Nurse 3 5. L post ankle/ Achilles repair post-op -Negative Pressure Wound Therapy Continue Continue -Setting (mmHg) 125 125 -Negative Pressure is Continuous Continuous -Primary Dressing Covered/Secured with Dry Gauze,Dry Gauze & Roll Gauze,Secured with Tape -NPWT Application Charge NPWT </= 50 sq NPWT </= 50 sq cm ($) cm ($) -Wound Comment(s) renita GONZALEZ applied vac and mustapha wrap Treatment Response Procedure Procedure Tolerated Well Tolerated Well Pain Scale: 0-10 Numeric Is Patient Pain Free? No Yes Yes WC - Visit Discharge Discharge Condition Stable Stable Stable Ambulatory Status Ambulatory Ambulatory Ambulatory, Walker Transportation Private Auto Private Auto Private Auto Medication Reconcilliation completed & No No provided to patient/care provider Clinical Summary of Care Provided Yes Yes Notes: dry dressing applied to wound . pt went back home to collect vac dressing to apply today at wound center. 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 Wound care - Wound VAC at 125 mmHg dressing changes at the wound healing center. Compression - Mustapha wrap. Off load- use CAM walker to off load. Instructed to keep foot elevated as much as possible. Follow up Monday with Dr. Solano.
--- NOTE | 2024-06-07 08:33 | WC ---
PHOTO 06/05/24 Gertrudis VAZQUEZ
== END 2024-06-10 23:59 | disposition home or self-care (01) ==
LOC: WC 13:00
PROVIDERS: PCP Family Medicine Geriatric Medicine; Referring Provider Surgery Plastic and Reconstructive Surgery; Visit Provider Nurse Practitioner Family
DX: T81.32XA Disruption of internal operation (surgical) wound, not elsewhere classified, initial encounter (principal); L97.223 Non-pressure chronic ulcer of left calf with necrosis of muscle; E66.01 Morbid (severe) obesity due to excess calories; E11.42 Type 2 diabetes mellitus with diabetic polyneuropathy; Z79.4 Long term (current) use of insulin; M76.62 Achilles tendinitis, left leg; I10 Essential (primary) hypertension; R60.0 Localized edema; E78.5 Hyperlipidemia, unspecified; Y83.8 Other surgical procedures as the cause of abnormal reaction of the patient, or of later complication, without mention of misadventure at the time of the procedure; Z79.82 Long term (current) use of aspirin; Z79.84 Long term (current) use of oral hypoglycemic drugs; Z79.85 Long-term (current) use of injectable non-insulin antidiabetic drugs; Z79.899 Other long term (current) drug therapy
CPT/HCPCS: 97605; 99203; 99212; G0463

== ENCOUNTER 2024-06-10 10:46 | Day surgery (SDC) | payer MEDICARE, MEDICAID, SELFPAY ==
[2024-06-10] VITALS (8 sets, daily range): BP systolic 129–138; BP diastolic 61–71; PULSE 70–77; RESP 14–16; TEMP 35.8–36.3; O2SAT 88–98; BMI 33.4
--- NOTE | 2024-06-10 10:24 | PCM.HP.STD ---
HPI - General HPI Narrative REMI TREVINO, is a 58 F who presents with left ankle wound s/p recon with Integra Current Encounter (DATE OF SURGERY H&P UPDATE): I saw and examined the patient this morning in pre-operative holding. We discussed risks and benefits of today's surgery and they would like to proceed. NO CHANGE in health history since last seen and evaluated. Ready to proceed with surgery. [facility] Medical History Open wound Current use of insulin Post-menopausal Hiatal hernia Back pain due to injury Osteoporosis Sleep apnea Insulin dependent diabetes mellitus Easy bruising Restless legs Difficulty swallowing Tachycardia Smoker Wears dentures Wears glasses Anxiety Iron deficiency Back pain Dietary restriction GERD (gastroesophageal reflux disease) Shortness of breath Asthma CPAP (continuous positive airway pressure) dependence Leg cramping History of pain when walking Edema Cardiology follow-up encounter History of stress test Normal echocardiogram Hypertension Difficulty balancing when standing Asthma Arthritis Fibromyalgia Multinodular thyroid Hypothyroidism Essential (primary) hypertension Hypergammaglobulinemia Hyperlipemia Dermatitis Depression PAD (peripheral artery disease) Other specified peripheral vascular diseases Hammertoe of left foot Skin ulcer of right foot including toes with fat layer exposed Osteomyelitis of toe Morbid obesity with BMI of 40.0-44.9, adult Diabetes type 2, uncontrolled Venous stasis dermatitis of both lower extremities Home Medications ?Medication ?Instructions ?Recorded ?Last Taken ?Type omeprazole 40 mg capsule,delayed 40 mg PO DAILY ACID REFLUX 10/18/18 05/14/24 History release paroxetine HCl 40 mg tablet 40 mg PO DAILY DEPRESSION 10/29/19 05/14/24 History pregabalin 150 mg capsule 150 mg PO TID NERVE PAIN 10/29/19 05/14/24 History aspirin 81 mg tablet,delayed 81 mg PO DAILY HEART HEALTH 07/21/20 05/08/24 History release (Adult Low Dose Aspirin) rosuvastatin 40 mg tablet (Crestor) 40 mg PO DAILY CHOLESTEROL 08/26/22 05/14/24 History pen needle, diabetic 32 gauge x #100 ea 02/13/23 Unknown Rx (BD Ultra-Fine Catalina Pen Needle) dapagliflozin propanediol 10 mg 10 mg PO DAILY DIABETES 03/01/23 05/14/24 History tablet (Farxiga) blood sugar diagnostic (True #100 ea 03/24/23 Unknown Rx Metrix Glucose Test Strip) glimepiride 4 mg tablet 4 mg PO DAILY diabetes #30 tabs 04/10/23 05/14/24 Rx insulin aspart 10 unit subcut TID diabetes #9 mL 05/29/23 02/26/24 Rx (niacinamide)(U-100) 100 unit/mL(3 mL) subcutaneous pen (Fiasp FlexTouch U-100 Insulin) albuterol sulfate 90 mcg/actuation 1 puff inhalation Q6H PRN PRN 01/19/24 05/12/24 History aerosol inhaler shortness of breath or wheezing tirzepatide 7.5 mg/0.5 mL 7.5 mg subcut MO diabetes 01/19/24 04/29/24 History subcutaneous pen injector (Rex) celecoxib 200 mg capsule 200 mg PO DAILY pain 02/21/24 05/14/24 History doxepin 25 mg capsule 25 mg PO QHS sleep 02/21/24 05/14/24 History levothyroxine 150 mcg tablet 150 mcg PO DAILY hypothyroid 02/21/24 05/22/24 History montelukast 10 mg tablet 10 mg PO DAILY allergies/asthma 02/21/24 05/14/24 History potassium chloride 20 mEq 20 meq PO DAILY potassium 02/21/24 05/14/24 History tablet,extended supplement release(part/cryst) (Klor-Con M) trazodone 150 mg tablet 150 mg PO QHS sleep 02/21/24 05/14/24 History acetaminophen 500 mg tablet 1,000 mg (2 x 500 mg) PO Q6H PRN 04/02/24 Unknown Rx PRN Pain Score 1-3 #0 tabs vitamin B complex (Vitamins B 1 cap PO DAILY 05/15/24 05/14/24 History Complex capsule) cefdinir 300 mg capsule 300 mg PO Q12 3 weeks #42 caps 05/22/24 Unknown Rx doxycycline monohydrate 100 mg 100 mg PO BID 3 weeks #42 caps 05/22/24 Unknown Rx capsule enoxaparin 40 mg/0.4 mL 40 mg (0.4 mL) subcut DAILY 14 05/22/24 Unknown Rx subcutaneous syringe days #5.6 mL losartan 100 mg tablet 50 mg (1/2 x 100 mg) PO DAILY 05/22/24 05/14/24 Rx BLOOD PRESSURE #30 tabs metoprolol succinate 50 mg 50 mg PO DAILY 30 days #30 tabs 05/22/24 Unknown Rx tablet,extended release 24 hr metronidazole 500 mg tablet 500 mg PO TID 3 weeks #63 tabs 05/22/24 Unknown Rx oxycodone 5 mg tablet 5 mg PO Q4H PRN PRN Pain Score 05/22/24 Unknown Rx 6-10 Or Pre Pt/Ot 5 days #42 tabs Allergy/AdvReac Type Severity Reaction Status Date / Time piperacillin (From Zosyn) Allergy Severe Anaphylaxis Verified 06/10/24 11:12 tazobactam (From Zosyn) Allergy Severe Anaphylaxis Verified 06/10/24 11:12 sulfamethoxazole (From Allergy Unknown Anaphylaxis Verified 06/10/24 11:12 Bactrim) trimethoprim (From Bactrim) Allergy Unknown Anaphylaxis Verified 06/10/24 11:12 latex Allergy Rash Verified 06/10/24 11:12 pyrethrins Allergy Anaphylaxis Verified 06/10/24 11:12 tetanus and diphtheria Allergy Anaphylaxis Verified 06/10/24 11:12 toxoids (Tetanus&Diphtheria Toxoid) Family History Mother Diabetes Dementia Father Diabetes Myocardial infarction Surgical History Hx of toe surgery History of partial ray amputation of fifth toe of right foot Hx of total knee arthroplasty History of nasal septoplasty History of cholecystectomy History of thyroidectomy H/O arthroscopic knee surgery (11/2019) H/O amputation of lesser toe (05/05/17) Social History household members: none Smoking Status: Light Smoker (<10/day) alcohol intake: current alcohol intake frequency: holidays/special occasions only substance use type: does not use Physical Exam Narrative LEFT ANKLE WOUND WITH vac HOLDING SUCTION Assessment & Plan Assessment/Plan (1) Wound of left ankle: PLAN: INTERVAL H&P PLAN, DATE OF SURGERY: We will proceed with surgery today. I talked the patient extensively about the risks of surgery, including bleeding, infection, damage to surrounding structures, surgical site dehiscence and wound formation, need for wound care, need for repeat operations, failure to obtain the desired result, DVT/PE, and the risks of anesthesia including . All of their questions were answered, and they agreed to proceed with surgery.
[2024-06-10] MEDS: Lactated Ringers 1,000 ML 15 ML IV (11:35)
[2024-06-10 11:56] LABS: Bedside Glucose 168 mg/dL (74-106)
--- NOTE | 2024-06-10 13:16 | PRE.ANES_ITS ---
ASA Classification* ASA Classification ASA Classification: 3 Assessment & Plan Anesthesia* Anesthesia Assessment Anesthesia Assessment: Discussed sedation and/or anesthesia options, risks, benefits, and alternatives with patient/parents/legal guardian/POA. Questions invited. The patient/parents/legal guardian/POA seems to understand and agrees to proceed with anesthesia plan. Reviewed the physical assessment, medical history, allergy history and patient home medications list prior to surgery/procedure/anesthetic and documented any changes. Performed airway and anesthesia risk assessments. Anesthesia Type Anesthesia Type: General (see written pre anesthesia record for full assessment) Anesthesia Focused Assessment* Temperature: 97.3 F Pulse Rate: 74 Blood Pressure: 138/71 Respiratory Rate: 16 Pulse Ox: 96 Airway Assessment Mouth opens: >3 cm Mallampati Score: II Focused Labs Anesthesia Preop lab: CBC WBC 5.9 K/mm3 (4.4-11.0) 05/22/24 05:13 RBC 4.18 M/mm3 (4.2-5.4) L 05/22/24 05:13 Hgb 10.6 g/dL (12.0-15.0) L 05/22/24 05:13 Hct 35.6 % (37-47) L 05/22/24 05:13 Plt Count 253 K/mm3 (150-450) 05/22/24 05:13 CHEMISTRY Potassium 3.9 mmol/L (3.5-5.1) 05/22/24 05:13 Sodium 135 mmol/L (136-145) L 05/22/24 05:13 Magnesium 2.0 mg/dL (1.6-2.6) 05/17/24 07:22 Phosphorus 3.6 mg/dL (2.5-4.9) 05/17/24 07:22 BUN 36 mg/dL (7-18) H 05/22/24 05:13 Creatinine 0.85 mg/dL (0.55-1.02) 05/22/24 05:13 Glucose 237 mg/dL (74-106) H 05/22/24 05:13 POC Glucose 168 mg/dL (74-106) H 06/10/24 11:21 TSH 0.13 uIU/mL (0.358-3.74) L 02/22/24 07:17 COAG PT 14.5 SECONDS (11.7-14.9) 05/22/24 05:13 Pre-Assessment Diagnosis/Proposed Procedure Planned Operative Procedure(s): (L) Skin graft left ankle Anesthesia History 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 When Was Last Pacemaker Check QUESTION #4 FULL TEXT: You/Your Family Experience fever (hyperthermia) with Anesthesia Last Oral Intake Last Oral intake: Last Oral Intake NPO since 22:00 06/10/24 11:14 Meds taken in AM with sips of No 06/10/24 11:14 water? Meds patient instructed to take am of surgery PONV PONV - cylinder die machine helper: PONV - cylinder die machine helper Female Yes 06/06/24 08:14 HX of Motion Sickness No 06/06/24 08:14 HX of N/V After Surgery No 06/06/24 08:14 Non-Smoker No 06/06/24 08:14 Duration of Surgery greater Yes 06/06/24 08:14 than 60 minutes Number of Risk Factors 2 06/06/24 08:14 PONV Score Moderate Risk 06/06/24 08:14 Height & Weight Height & Weight: Anesthesia: Height & Weight Height 5 ft 8 in 06/10/24 11:14 Weight: 99.79 kg 06/10/24 11:14 Body Mass Index (BMI) 33.4 06/10/24 11:14 Respiratory Assessment Respiratory Assessment - cylinder die machine helper: Respiratory Tract Infection Hx - cylinder die machine helper Hx Respiratory Tract Infection No 06/06/24 08:14 STOP Sleep Apnea STOP Sleep Apnea - cylinder die machine helper: STOP Sleep Apnea - cylinder die machine helper Hx Hypertension Yes 06/06/24 08:14 Hx Sleep Apnea Yes 06/06/24 08:14 CPAP No: supposed to use cpap 06/06/24 08:14 BIPAP No 06/06/24 08:14 Do you snore loudly (louder than talking or can be heard Do you often feel tired/ fatigued/ sleepy during daytime? Has anyone observed you stop breathing during sleep? STOP Results Positive 06/06/24 08:14 QUESTION #5 FULL TEXT : Do you snore loudly (louder than talking or can be heard through closed doors)? 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 Specify any problems Hx of Preganancy in last 3 N/A 06/06/24 08:14 Months Nurse Filling Out Transfusion NBUCHER 06/06/24 08:14 & Questions: Date: 06/06/24 06/06/24 08:14 Time: 08:15 06/06/24 08:14 Patient unable to answer at this time (ie. confused, unrespo /Reproduction History /Reproductive History - cylinder die machine helper: /Reproductive Hx- cylinder die machine helper Hx Now Gestational Age (in weeks): EDC: Hx Hx Para Hx Section SAB No 06/06/24 08:14 Active Medications Active Medications: Current Medications Generic Name Dose Route Start Last Admin Trade Name Freq PRN Reason Stop Dose Admin Lactated Ringer's 1,000 mls @ 15 mls/hr 06/10/24 11:00 06/10/24 11:35 IV 15 mls/hr .Q48H RUTH Administration PFSH Medical History Degeneration of Achilles tendon Open wound Current use of insulin Post-menopausal Hiatal hernia Back pain due to injury Osteoporosis Sleep apnea Insulin dependent diabetes mellitus Easy bruising Restless legs Difficulty swallowing Tachycardia Smoker Wears dentures Wears glasses Anxiety Iron deficiency Back pain Dietary restriction GERD (gastroesophageal reflux disease) Shortness of breath Asthma CPAP (continuous positive airway pressure) dependence Leg cramping History of pain when walking Edema Cardiology follow-up encounter History of stress test Normal echocardiogram Hypertension Difficulty balancing when standing Asthma Arthritis Fibromyalgia Multinodular thyroid Hypothyroidism Essential (primary) hypertension Hypergammaglobulinemia Hyperlipemia Dermatitis Depression PAD (peripheral artery disease) Other specified peripheral vascular diseases Hammertoe of left foot Skin ulcer of right foot including toes with fat layer exposed Osteomyelitis of toe Morbid obesity with BMI of 40.0-44.9, adult Diabetes type 2, uncontrolled Venous stasis dermatitis of both lower extremities Home Medications ?Medication ?Instructions ?Recorded ?Last Taken ?Type omeprazole 40 mg capsule,delayed 40 mg PO DAILY ACID REFLUX 10/18/18 05/14/24 History release paroxetine HCl 40 mg tablet 40 mg PO DAILY DEPRESSION 10/29/19 05/14/24 History pregabalin 150 mg capsule 150 mg PO TID NERVE PAIN 10/29/19 05/14/24 History aspirin 81 mg tablet,delayed 81 mg PO DAILY HEART HEALTH 07/21/20 05/08/24 History release (Adult Low Dose Aspirin) rosuvastatin 40 mg tablet (Crestor) 40 mg PO DAILY CHOLESTEROL 08/26/22 05/14/24 History pen needle, diabetic 32 gauge x #100 ea 02/13/23 Unknown Rx (BD Ultra-Fine Catalina Pen Needle) dapagliflozin propanediol 10 mg 10 mg PO DAILY DIABETES 03/01/23 05/14/24 History tablet (Farxiga) blood sugar diagnostic (True #100 ea 03/24/23 Unknown Rx Metrix Glucose Test Strip) glimepiride 4 mg tablet 4 mg PO DAILY diabetes #30 tabs 04/10/23 05/14/24 Rx insulin aspart 10 unit subcut TID diabetes #9 mL 05/29/23 02/26/24 Rx (niacinamide)(U-100) 100 unit/mL(3 mL) subcutaneous pen (Fiasp FlexTouch U-100 Insulin) albuterol sulfate 90 mcg/actuation 1 puff inhalation Q6H PRN PRN 01/19/24 05/12/24 History aerosol inhaler shortness of breath or wheezing tirzepatide 7.5 mg/0.5 mL 7.5 mg subcut MO diabetes 01/19/24 04/29/24 History subcutaneous pen injector (Rex) celecoxib 200 mg capsule 200 mg PO DAILY pain 02/21/24 05/14/24 History doxepin 25 mg capsule 25 mg PO QHS sleep 02/21/24 05/14/24 History levothyroxine 150 mcg tablet 150 mcg PO DAILY hypothyroid 02/21/24 05/22/24 History montelukast 10 mg tablet 10 mg PO DAILY allergies/asthma 02/21/24 05/14/24 History potassium chloride 20 mEq 20 meq PO DAILY potassium 02/21/24 05/14/24 History tablet,extended supplement release(part/cryst) (Klor-Con M) trazodone 150 mg tablet 150 mg PO QHS sleep 02/21/24 05/14/24 History acetaminophen 500 mg tablet 1,000 mg (2 x 500 mg) PO Q6H PRN 04/02/24 Unknown Rx PRN Pain Score 1-3 #0 tabs vitamin B complex (Vitamins B 1 cap PO DAILY 05/15/24 05/14/24 History Complex capsule) cefdinir 300 mg capsule 300 mg PO Q12 3 weeks #42 caps 05/22/24 Unknown Rx doxycycline monohydrate 100 mg 100 mg PO BID 3 weeks #42 caps 05/22/24 Unknown Rx capsule enoxaparin 40 mg/0.4 mL 40 mg (0.4 mL) subcut DAILY 14 05/22/24 Unknown Rx subcutaneous syringe days #5.6 mL losartan 100 mg tablet 50 mg (1/2 x 100 mg) PO DAILY 05/22/24 05/14/24 Rx BLOOD PRESSURE #30 tabs metoprolol succinate 50 mg 50 mg PO DAILY 30 days #30 tabs 05/22/24 Unknown Rx tablet,extended release 24 hr metronidazole 500 mg tablet 500 mg PO TID 3 weeks #63 tabs 05/22/24 Unknown Rx oxycodone 5 mg tablet 5 mg PO Q4H PRN PRN Pain Score 05/22/24 Unknown Rx 6-10 Or Pre Pt/Ot 5 days #42 tabs Allergy/AdvReac Type Severity Reaction Status Date / Time piperacillin (From Zosyn) Allergy Severe Anaphylaxis Verified 06/10/24 11:12 tazobactam (From Zosyn) Allergy Severe Anaphylaxis Verified 06/10/24 11:12 sulfamethoxazole (From Allergy Unknown Anaphylaxis Verified 06/10/24 11:12 Bactrim) trimethoprim (From Bactrim) Allergy Unknown Anaphylaxis Verified 06/10/24 11:12 latex Allergy Rash Verified 06/10/24 11:12 pyrethrins Allergy Anaphylaxis Verified 06/10/24 11:12 tetanus and diphtheria Allergy Anaphylaxis Verified 06/10/24 11:12 toxoids (Tetanus&Diphtheria Toxoid) Family History Mother Diabetes Dementia Father Diabetes Myocardial infarction Surgical History Hx of toe surgery History of partial ray amputation of fifth toe of right foot Hx of total knee arthroplasty History of nasal septoplasty History of cholecystectomy History of thyroidectomy H/O arthroscopic knee surgery (11/2019) H/O amputation of lesser toe (05/05/17) Social History household members: none Smoking Status: Light Smoker (<10/day) alcohol intake: current alcohol intake frequency: holidays/special occasions only substance use type: does not use Review of Systems (Anesthesia) ROS Narrative System reviewed and no additional complaints, except as documented.
[2024-06-10] MEDS: Cefazolin 2 GM in 0.9% Normal Saline (100mL Bag) 100 ML IV (13:23)
[2024-06-10] MEDS: Epinephrine (1 mg/ml) 1 MG/ML VIAL (13:55)
[2024-06-10] MEDS: Mineral Oil, Light Sterile 10 ML Vial MC (13:55)
[2024-06-10] MEDS: Lidocaine 1% /Epi 1:100 (20ml) 20 ML Vial (14:07)
[2024-06-10] MEDS: Bupivacaine 0.25% 30 ML Vial (14:07)
--- NOTE | 2024-06-10 14:44 | PCM.POST.ANE ---
Anesthesia: Postop Eval I Current Vital Signs Temperature: 97 F Pulse Rate: 76 Blood Pressure: 129/61 Respiratory Rate: 16 Pulse Ox: 95 Oxygen Delivery Method: Nasal Cannula Oxygen Flow Rate (L/min): 2 Assessment Airway patent: Yes Spontaneous unlabored respirations: Yes Mental status: Awake and Calm nausea: No Vomiting: No Anesthesia Complication: No Fluid Hydration Crystalloid volume administer (ml): 600 Total IV fluid infused: 600 Progress Note Anesthesia document: Postop Eval 1 completed: Yes
--- NOTE | 2024-06-10 14:51 | POSTOPAN2_ITS ---
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 BOARD MEMBER.[email or web address] Spontaneous unlabored Yes 06/10/24 14:45 PAROLE BOARD MEMBER.TANVIR respirations Mental status Awake,Calm 06/10/24 14:45 PAROLE BOARD MEMBER.ILIROBAnita nausea No 06/10/24 14:45 PAROLE BOARD MEMBER.ILIROBAnita Vomiting No 06/10/24 14:45 PAROLE BOARD MEMBER.TANVIR Anesthesia Postop Eval I: Fluid Summary Crystalloid volume administer 600 06/10/24 14:45 PAROLE BOARD MEMBER.ILIROBY (ml) Colloids volume administered ( ml) Blood Product volume administered (ml) Total IV fluid infused 600 06/10/24 14:45 PAROLE BOARD MEMBER.TANVIR Anesthesia Postop Eval I: Summary Notes Anesthesia Complication No 06/10/24 14:45 PAROLE BOARD MEMBER.TANVIR Anesthesia Complication Comment: Post-operative progress note Anesthesia: Postop Eval II Evaluation Mental status: Awake Pain Level: 0 nausea: No Vomiting: No
--- NOTE | 2024-06-10 14:51 | PCM.POSTANE2 ---
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 TENDER.SKOBY Spontaneous unlabored Yes 06/10/24 14:45 CURING OVEN TENDER.TANVIR respirations Mental status Awake,Calm 06/10/24 14:45 CURING OVEN TENDER.ILIROBAnita nausea No 06/10/24 14:45 CURING OVEN TENDER.ILIROBAnita Vomiting No 06/10/24 14:45 CURING OVEN TENDER.TANVIR Anesthesia Postop Eval I: Fluid Summary Crystalloid volume administer 600 06/10/24 14:45 CURING OVEN TENDER.ILIROBY (ml) Colloids volume administered ( ml) Blood Product volume administered (ml) Total IV fluid infused 600 06/10/24 14:45 CURING OVEN TENDER.TANVIR Anesthesia Postop Eval I: Summary Notes Anesthesia Complication No 06/10/24 14:45 CURING OVEN TENDER.TANVIR Anesthesia Complication Comment: Post-operative progress note Anesthesia: Postop Eval II Evaluation Mental status: Awake Pain Level: 0 nausea: No Vomiting: No
--- NOTE | 2024-06-11 11:01 | PCM.OP.BLANK ---
Operative Report Date of Procedure: 06/11/24 Surgery/Procedure Date: 10 Jun 2024 Incision/Procedure Start Time: 1:55 pm Incision Close/Procedure End Time: 2:21 pm (26 Min) PATIENT: Dewey Beltran SURGEON: Victorino Solano MD PRE-OPERATIVE DIAGNOSIS: Left ankle wound s/p Integra placement POST-OPERATIVE DIAGNOSIS: Same PROCEDURE PERFORMED: 1) Split-thickness skin grafting from the left lateral thigh to the left Achilles tendon ankle wound, 7 x 3 cm (06/1000'th inch dept with [facility]) (CPT 65523) OPERATIVE FINDINGS: Healthy wound bed following removal of the silicone layer of the Integra, ready for grafting INDICATIONS: This is a 58-year-old patient with a history of a left Achilles wound. She is status post Integra placement. Presents today for removal of the silicone and placement of a skin graft with VAC placement. OPERATIVE DETAILS: Patient was correctly identified in preoperative holding and taken back to the operating room where she was administered general anesthesia. She was flipped in the prone position and care was taken to pad all bony prominences and protect her face. She was prepped and draped in sterile fashion and all proper timeouts were performed. The silicone layer of the Integra was removed with scissors (sutures) and with a [place] elevator and pickup. It had excellent take. Decision was made to take a skin graft from the left thigh. Split-thickness skin graft from the left lateral thigh to the left Achilles tendon ankle wound was then taken, 7 x 3 cm at 06/1000'th inch dept with [facility]. Hemostasis was obtained with 0.25% Marcaine with 1-100,000 epinephrine injection at the site followed by epinephrine soaked Telfa. The donor site was dressed with Xeroform, Tegaderm, ABD, and Ioban. Attention was then turned to placing the graft on the wound and the graft was sutured into place after was trimmed to fit with 3-0 chromic. Small perforations were made in the graft to prevent fluid collection. Adaptic and a wound VAC was applied and was holding suction. The patient was placed back in her fracture boot. EBL: 5 cc Anesthesia: General and 0.25% marcaine with epi. ASA: 3 IVF: 600cc LR UOP: unmeasured Transfusions: none POST-OPERATIVE PLAN: Continue wound VAC and fracture boot (okay to ambulate in fracture boot) and plan for removal of wound VAC in clinic 17 June 2024 (Monday) to check on skin graft. OK to leave left thigh dressing in place until follow up.
== END 2024-06-10 16:00 | disposition home or self-care (01) ==
LOC: SDC 10:48 → AC 10:49
PROVIDERS: PCP Family Medicine Geriatric Medicine; Referring Provider Surgery Plastic and Reconstructive Surgery; Visit Provider Surgery Plastic and Reconstructive Surgery
PROC: (CPT 15100; principal; 2024-06-10 12:15)
DX: S91.002A Unspecified open wound, left ankle, initial encounter (principal); E11.9 Type 2 diabetes mellitus without complications; Z79.4 Long term (current) use of insulin; E78.5 Hyperlipidemia, unspecified; I10 Essential (primary) hypertension; F17.200 Nicotine dependence, unspecified, uncomplicated; Z79.01 Long term (current) use of anticoagulants; Z79.85 Long-term (current) use of injectable non-insulin antidiabetic drugs; Z79.84 Long term (current) use of oral hypoglycemic drugs
CPT/HCPCS: 15100; 00400; 82962; J7120; J2405

== ENCOUNTER → 2024-07-01 | Outpatient (CLI) | payer MEDICARE, MEDICAID, SELFPAY ==
[2024-07-01 15:43] LABS: Absolute Lymphocyte Count 2.08 X10^3/uL (0.83-4.51); Absolute Neutrophil Count 3.1 X10^3/uL (2.0-7.7); Basophil# 0.04 X10^3/uL; Basophil% 0.6 % (0-1); Eosinophils% 6.5 % (0-5); Hematocrit 39.2 % (37-47); Hemoglobin 12.1 g/dL (12.0-15.0); Lymphocyte # 2.08 X10^3/ul (0.83-4.51); Lymphocyte % 33.5 % (19-41); Mean Corp Hgb Conc 30.9 g/dL (32-36); Mean Corpuscular Hgb 25.9 pg (27.0-32.0); Mean Corpuscular Volume 83.9 fL (81-99); Mean Platelet Vol. 9.5 fl (6.2-12.0); Monocyte# 0.53 X10^3/uL; Monocyte% 8.5 % (0-10); NRBC Flagged by Analyzer 0 % (0-5); Neutrophil # 3.13 X10^3/uL (2.7-7.7); Neutrophil % 50.6 % (47-70); Platelet Count 368 K/mm3 (150-450); RBC Distribution Width CV 15.8 % (11.6-14.6); RBC Distribution Width SD 48.1 fl (35.1-43.9); Red Blood Count 4.67 M/mm3 (4.2-5.4); White Blood Count 6.2 K/mm3 (4.4-11.0)
[2024-07-01 16:33] LABS: ALB/GLOB Ratio 0.8 RATIO (0.9-2.4); AST(SGOT) 30 U/L (15-37); Alanine Aminotransfer ALT/SGPT 37 U/L (13-56); Albumin, Serum 3.5 g/dL (3.2-5.0); Alkaline Phosphatase 88 U/L (45-117); Anion Gap 4 (5-15); BUN 14 mg/dL (7-18); BUN/Creat Ratio 15.4 RATIO (10-20); Calcium,Total 8.5 mg/dL (8.5-10.1); Chloride 106 mmol/L (98-107); Cholesterol 105 mg/dL (200); Creatinine, Serum 0.91 mg/dL (0.55-1.02); EST Glomerular Filtration Rate 67 mL/min (>60); Est Glom Filt Rate - Afr Amer 81 mL/min (>60); Globulin 4.3 g/dL (2.2-4.2); Glucose 130 mg/dL (74-106); Hemoglobin A1c 7.2 % (3.8-5.6); High Density Lipoprotein 52 mg/dL; Potassium 4.2 mmol/L (3.5-5.1); Protein, Total 7.8 g/dL (6.4-8.2); Sodium Level 138 mmol/L (136-145); Thyroid Stim Hormone (TSH) 0.327 uIU/mL (0.358-3.740); Triglycerides 123 mg/dL; Very Low Density Lipoprotein 25 mg/dL (5-40)
== END | disposition home or self-care (01) ==
LOC: POLAB3 15:28
PROVIDERS: PCP Family Medicine Geriatric Medicine; Visit Provider Family Medicine Geriatric Medicine
DX: E78.5 Hyperlipidemia, unspecified (principal); E11.65 Type 2 diabetes mellitus with hyperglycemia; I10 Essential (primary) hypertension; E03.9 Hypothyroidism, unspecified
CPT/HCPCS: 36415; 80053; 80061; 82043; 83036; 84443; 85025

== ENCOUNTER 2024-07-11 10:00 | Outpatient (RCR) | payer MEDICARE, MEDICAID, SELFPAY ==
[2024-06-11 00:48] VITALS: BP 128/66; PULSE 79; RESP 18; TEMP 36.2; BMI 34.9
[2024-06-17 13:56] VITALS: BP 128/62; PULSE 75; RESP 18; TEMP 35.9; BMI 34.9
--- NOTE | 2024-06-17 14:20 | PCM.WC.PN ---
History of Present Illness Date of Service: 06/17/24 Chief Complaint: Surgical dehiscence with exposure of the Achilles tendon left lower extremity History of Wound: 58 y/o female with DM type II with peripheral polyneuropathy, peripheral vascular disease, asthma, morbid obesity, HTN, and hyperlipidemia presents to the wound care center for continued care of surgical dehiscence of her posterior left lower extremity with exposure of the Achilles tendon. Patient underwent surgical intervention to correct calcaneal gait with plantar ulceration of the left heel on 01/26/2024. At that time of surgery she was found to have tendo Achilles tear to the left lower extremity resulting in a calcaneal gait. Tendon was debrided and a shortening of the tendo Achilles was performed in addition to FHL tendon transfer. 3 weeks later patient had fallen placing weight to the foot resulting in a tear and dehiscence of the surgical site with exposure of the Achilles tendon. She was returned to the OR for debridement on 02/22/2024 and wound VAC was applied over ulcerative area. She did have PICC line and completed 6 weeks of IV antibiotics during stay in the transitional care unit. She completed IV antibiotic 04/04/2024 PICC line was pulled and she was discharged from the transitional care unit to home. Surgery by Dr. Solano on 05/20/23 for Excision of left posterior ankle wound, including biofilm, subcutaneous tissue, fascia, and tendon, 7 x 3 cm and Irrigating wound VAC, vera flow, not disposable AND 05/22/24 - Excision of left posterior ankle wound, including biofilm, subcutaneous tissue, fascia, and tendon and Placement of dermal substitute (Integra) and wound VAC placed. Operative culture 05/15/24 positive for MSSA and Anaerobic cocci. She is still being treated with Doxy, cefdinir, Flagyl. She denies N/V/F/chills. Denies further complaints. Subjective Subjective Doing well today. She's been compliant with the VAC (keeping it charged) and has had her fracture boot on the entire time. She's been walking. Objective Data Objective Data Vital Signs: Vital Signs Temp Pulse Resp BP O2 Del Method 96.7 F L 75 18 128/62 H Room Air 06/17/24 13:56 06/17/24 13:56 06/17/24 13:56 06/17/24 13:56 06/17/24 13:56 Oxygen Delivery Method Room Air Weight: 230 lb Body Mass Index (BMI) 34.9 Charges/Coding Procedures Integumentary 111xxx-113xx: 24705 Global Visit Physical Exam Narrative Skin graft is tenuous (color is too light), but it is stuck down on the wound bed. 80% compromise. Would benefit from HBO. No signs of infection Const alert and oriented x3 HEENT normocephalic Resp normal respiratory effort Cardio regular rate Extremity Extremity Narrative: Left thigh donor site healing well, xeroform reapplied (XF was not stuck down on wound bed and didn't dry out). Debridement Note Debridement Note Post-Debridement Measurements and Additional Note: Post-Debridement Measurements/Treatment WC - Nurse 1 - General Ulcer Assessment Start: 06/17/24 13:56 Freq: Status: Active Protocol: BUSTER Activity Type Activity Date Activity User E-sign Co-sign Detail Recorded Client Recorded Date Recorded By Document 06/17/24 13:56 [id number] 06/17/24 14:01 06/17/24 13:56 - Today's Visit Information Type of service Follow-up Visit (Physician/DIRECTOR OF ACQUISITION MARKETING ) Arrival Mode Ambulatory,Cane Patient Identification Verified (Name & Yes ) Height and Weight Body Mass Index (BMI) 34.9 BMI Classification Obese Vital Signs Temperature (97.8 F-99.1 F) 96.7 F L Temperature Source Temporal Pulse Rate (60-100) 75 Pulse Location Monitor Respiratory Rate (12-18) 18 Respiratory rate source Observation Oxygen Delivery Method Room Air Blood Pressure (90/60-120/80) 128/62 H Blood Pressure Mean (mm Hg) 84 Source Monitor Position Sitting Blood Pressure Location Left Arm History Since Last Visit- (Skip if this is Patient's initial visit) Have you changed medications since your No last visit? Any new allergies or adverse reactions No Had a fall/change in ADL's that may No increase risk of falls Signs or symptoms of abuse and/or No neglect since last visit Have you been in the hospital since your No last visit? Has dressing in place as prescribed Yes Has compression in place as prescribed Yes Has offloadiing in place as prescribed N/A Experienced any changes in pain level or No management Left Footwear Regular Shoe Right Footwear Regular Shoe Pain Scale: 0-10 Numeric Is Patient Pain Free? No L posterior ankle -Intensity 7 -Alleviating Factors/Interventions Medication WC - Nurse 1 - General Ulcer Measurement Start: 06/17/24 13:56 Freq: Status: Active Protocol: Activity Type Activity Date Activity User E-sign Co-sign Detail Recorded Client Recorded Date Recorded By Document 06/17/24 13:56 KW [id number] 06/17/24 14:01 06/17/24 13:56 Wound Center Nurse 1 #6 graft site LT UPPER LE -Current Size (cm) - Length 0.1 -Current Size (cm) - Width 0.1 -Current Size (cm) - Depth 0.1 -Total Square Cm 0.01 -Wound Margin Distinct, Outline Attached -Texture (Yanely-wound Skin Appearance) Assessed -Moisture (Yanely-wound Skin Appearance) Assessed -Color (Yanely-wound Skin Appearance) Assessed, Erythema -Temperature (Yanely-wound Skin No Abnormality Appearance) (Pt Warm) -Tenderness on Palpation (Yanely-wound No Skin Appearance) -Foul Odor after Cleansing No -Wound Comment(s) HANS INTACT 5. L post ankle/ Achilles repair post-op -Current Size (cm) - Length 0.1 -Current Size (cm) - Width 0.1 -Current Size (cm) - Depth 0.1 -Total Square Cm 0.01 -Exudate Amt Small -Exudate Type Serosanguineous -Wound Margin Distinct, Outline Attached -Texture (Yanely-wound Skin Appearance) Assessed -Moisture (Yanely-wound Skin Appearance) Assessed -Color (Yanely-wound Skin Appearance) Assessed -Temperature (Yanely-wound Skin No Abnormality Appearance) (Pt Warm) -Tenderness on Palpation (Yanely-wound No Skin Appearance) -Foul Odor after Cleansing No -Wound Comment(s) GRAFT WC - Nurse 2 - General Ulcer CM Notes Start: 06/17/24 13:56 Freq: Status: Active Protocol: Activity Type Activity Date Activity User E-sign Co-sign Detail Recorded Client Recorded Date Recorded By Document 06/17/24 14:11 JF [id number] 06/17/24 14:13 JF 06/17/24 14:11 Wound Center Nurse 2 #6 graft site LT UPPER LE -Correct Patient No -Correct Side, Site, Position No -Correct Procedure No -Procedure Performed No -Wound/Ulcer Outcome Not Healed 5. L post ankle/ Achilles repair post-op -Correct Patient No -Correct Side, Site, Position No -Correct Procedure No -Procedure Performed No -Wound/Ulcer Outcome Not Healed Pain Scale: 0-10 Numeric Is Patient Pain Free? Yes Assessment/Plan Assessment/Plan (1) Wound of left ankle: CODE(S): S91.002A - Unspecified open wound, left ankle, initial encounter PLAN: Tenuous left ankle wound skin graft, but it's stuck down at least to the wound bed. Wound VAC replaced with adaptic Continue VAC and fracture boot x 1 week Going to apply today for urgent hyperbaric oxygen (HBO) therapy (awaiting insurance approval) to start as soon as possible. F/u in 1 week
--- NOTE | 2024-06-18 10:57 | EKG12_ITS ---
Test Reason : HBO CLEARANCE Blood Pressure : / mmHG Vent. Rate : 068 BPM Atrial Rate : 068 BPM P-R Int : 192 ms QRS Dur : 096 ms QT Int : 416 ms P-R-T Axes : 050 -08 016 degrees QTc Int : 442 ms Normal sinus rhythm Normal ECG Confirmed by Zack Rosenbaum ([id number]), editorial project manager JG JUAREZ ([id number]) on 06/19/2024 6:48:29 AM Referred By: Victorino Solano Confirmed By:Zack Rosenbaum
--- NOTE | 2024-06-18 11:15 | RAD_ITS ---
INDICATION: HYPERBRIC OXYGEN THERAPY EXAMINATION/TECHNIQUE: X-RAY - XR Chest 2 Views COMPARISON: Prior study dated: 01/26/2024 FINDINGS: LINES/DEVICES: None. LUNGS: Stable small left upper lobe granuloma. No infiltrate or pleural effusions. MEDIASTINUM AND CARDIOVASCULAR STRUCTURES: Cardiac silhouette not enlarged. Central airways and mediastinal contour are unremarkable. BONES AND SOFT TISSUES: No demonstrated acute osseous changes. RAD/Chest PA and Lateral IMPRESSION: No radiographic evidence of acute cardiopulmonary disease. Electronically Signed: Arnie Luu MD at 11:34 EDT ,
[2024-06-24 14:05] VITALS: BMI 34.9
--- NOTE | 2024-06-24 17:59 | HP.PCM_ITS ---
History of Present Illness Date of Service: 06/24/24 Chief Complaint: Surgical dehiscence with exposure of the Achilles tendon left lower extremity History of Wound: 58 y/o female with DM type II with peripheral polyneuropathy, peripheral vascular disease, asthma, morbid obesity, HTN, and hyperlipidemia presents to the wound care center for continued care of surgical dehiscence of her posterior left lower extremity with exposure of the Achilles tendon. Patient underwent surgical intervention to correct calcaneal gait with plantar ulceration of the left heel on 01/26/2024. At that time of surgery she was found to have tendo Achilles tear to the left lower extremity resulting in a calcaneal gait. Tendon was debrided and a shortening of the tendo Achilles was performed in addition to FHL tendon transfer. 3 weeks later patient had fallen placing weight to the foot resulting in a tear and dehiscence of the surgical site with exposure of the Achilles tendon. She was returned to the OR for debridement on 02/22/2024 and wound VAC was applied over ulcerative area. She did have PICC line and completed 6 weeks of IV antibiotics during stay in the transitional care unit. She completed IV antibiotic 04/04/2024 PICC line was pulled and she was discharged from the transitional care unit to home. Surgery by Dr. Solano on 05/20/23 for Excision of left posterior ankle wound, including biofilm, subcutaneous tissue, fascia, and tendon, 7 x 3 cm and Irrigating wound VAC, vera flow, not disposable AND 05/22/24 - Excision of left posterior ankle wound, including biofilm, subcutaneous tissue, fascia, and tendon and Placement of dermal substitute (Integra) and wound VAC placed. Operative culture 05/15/24 positive for MSSA and Anaerobic cocci. She is still being treated with Doxy, cefdinir, Flagyl. She denies N/V/F/chills. Denies further complaints. Current encounter 24 June 2024 : patient underwent multiple debridements and eventual skin grafting on. 11 June 2024 following Integra placement. She has a partial take of the graft and presents today for evaluation for HBO therapy [facility] Medical History Degeneration of Achilles tendon Open wound Current use of insulin Post-menopausal Hiatal hernia Back pain due to injury Osteoporosis Sleep apnea Insulin dependent diabetes mellitus Easy bruising Restless legs Difficulty swallowing Tachycardia Smoker Wears dentures Wears glasses Anxiety Iron deficiency Back pain Dietary restriction GERD (gastroesophageal reflux disease) Shortness of breath Asthma CPAP (continuous positive airway pressure) dependence Leg cramping History of pain when walking Edema Cardiology follow-up encounter History of stress test Normal echocardiogram Hypertension Difficulty balancing when standing Asthma Arthritis Fibromyalgia Multinodular thyroid Hypothyroidism Essential (primary) hypertension Hypergammaglobulinemia Hyperlipemia Dermatitis Depression PAD (peripheral artery disease) Other specified peripheral vascular diseases Hammertoe of left foot Skin ulcer of right foot including toes with fat layer exposed Osteomyelitis of toe Morbid obesity with BMI of 40.0-44.9, adult Diabetes type 2, uncontrolled Venous stasis dermatitis of both lower extremities Home Medications ?Medication ?Instructions ?Recorded ?Last Taken ?Type omeprazole 40 mg capsule,delayed 40 mg PO DAILY ACID REFLUX 10/18/18 05/14/24 History release paroxetine HCl 40 mg tablet 40 mg PO DAILY DEPRESSION 10/29/19 05/14/24 History pregabalin 150 mg capsule 150 mg PO TID NERVE PAIN 10/29/19 05/14/24 History aspirin 81 mg tablet,delayed 81 mg PO DAILY HEART HEALTH 07/21/20 05/08/24 History release (Adult Low Dose Aspirin) rosuvastatin 40 mg tablet (Crestor) 40 mg PO DAILY CHOLESTEROL 08/26/22 05/14/24 History pen needle, diabetic 32 gauge x #100 ea 02/13/23 Unknown Rx (BD Ultra-Fine Catalina Pen Needle) dapagliflozin propanediol 10 mg 10 mg PO DAILY DIABETES 03/01/23 05/14/24 History tablet (Farxiga) blood sugar diagnostic (True #100 ea 03/24/23 Unknown Rx Metrix Glucose Test Strip) glimepiride 4 mg tablet 4 mg PO DAILY diabetes #30 tabs 04/10/23 05/14/24 Rx insulin aspart 10 unit subcut TID diabetes #9 mL 05/29/23 02/26/24 Rx (niacinamide)(U-100) 100 unit/mL(3 mL) subcutaneous pen (Fiasp FlexTouch U-100 Insulin) albuterol sulfate 90 mcg/actuation 1 puff inhalation Q6H PRN PRN 01/19/24 05/12/24 History aerosol inhaler shortness of breath or wheezing tirzepatide 7.5 mg/0.5 mL 7.5 mg subcut MO diabetes 01/19/24 04/29/24 History subcutaneous pen injector (Rex) celecoxib 200 mg capsule 200 mg PO DAILY pain 02/21/24 05/14/24 History doxepin 25 mg capsule 25 mg PO QHS sleep 02/21/24 05/14/24 History levothyroxine 150 mcg tablet 150 mcg PO DAILY hypothyroid 02/21/24 05/22/24 History montelukast 10 mg tablet 10 mg PO DAILY allergies/asthma 02/21/24 05/14/24 History potassium chloride 20 mEq 20 meq PO DAILY potassium 02/21/24 05/14/24 History tablet,extended supplement release(part/cryst) (Klor-Con M) trazodone 150 mg tablet 150 mg PO QHS sleep 02/21/24 05/14/24 History acetaminophen 500 mg tablet 1,000 mg (2 x 500 mg) PO Q6H PRN 04/02/24 Unknown Rx PRN Pain Score 1-3 #0 tabs vitamin B complex (Vitamins B 1 cap PO DAILY 05/15/24 05/14/24 History Complex capsule) cefdinir 300 mg capsule 300 mg PO Q12 3 weeks #42 caps 05/22/24 Unknown Rx doxycycline monohydrate 100 mg 100 mg PO BID 3 weeks #42 caps 05/22/24 Unknown Rx capsule enoxaparin 40 mg/0.4 mL 40 mg (0.4 mL) subcut DAILY 14 05/22/24 Unknown Rx subcutaneous syringe days #5.6 mL losartan 100 mg tablet 50 mg (1/2 x 100 mg) PO DAILY 05/22/24 05/14/24 Rx BLOOD PRESSURE #30 tabs metoprolol succinate 50 mg 50 mg PO DAILY 30 days #30 tabs 05/22/24 Unknown Rx tablet,extended release 24 hr metronidazole 500 mg tablet 500 mg PO TID 3 weeks #63 tabs 05/22/24 Unknown Rx oxycodone 5 mg tablet 5 mg PO Q4H PRN PRN Pain Score 05/22/24 Unknown Rx 6-10 Or Pre Pt/Ot 5 days #42 tabs Allergy/AdvReac Type Severity Reaction Status Date / Time piperacillin (From Zosyn) Allergy Severe Anaphylaxis Verified 06/10/24 11:12 tazobactam (From Zosyn) Allergy Severe Anaphylaxis Verified 06/10/24 11:12 sulfamethoxazole (From Allergy Unknown Anaphylaxis Verified 06/10/24 11:12 Bactrim) trimethoprim (From Bactrim) Allergy Unknown Anaphylaxis Verified 06/10/24 11:12 latex Allergy Rash Verified 06/10/24 11:12 pyrethrins Allergy Anaphylaxis Verified 06/10/24 11:12 tetanus and diphtheria Allergy Anaphylaxis Verified 06/10/24 11:12 toxoids (Tetanus&Diphtheria Toxoid) Family History Mother Diabetes Dementia Father Diabetes Myocardial infarction Surgical History Hx of toe surgery History of partial ray amputation of fifth toe of right foot Hx of total knee arthroplasty History of nasal septoplasty History of cholecystectomy History of thyroidectomy H/O arthroscopic knee surgery (11/2019) H/O amputation of lesser toe (05/05/17) Social History household members: none Smoking Status: Current every day smoker tobacco type: e-cigarettes alcohol intake: current alcohol intake frequency: holidays/special occasions only substance use type: does not use Vital Signs Vital Signs Vital Signs: Weight Weight: 230 lb Body Mass Index (BMI) 34.9 Physical Exam Narrative Skin graft is tenuous (color is too light), but it is stuck down on the wound bed. 80% compromise. No signs of infection. Central portion is stuck down. Const alert and oriented x3 General Appearance: cooperative HEENT normocephalic HEENT Narrative: Tympanic membranes were not visualized, too much cerumen Neck full ROM Resp normal respiratory effort Auscultation: clear to auscultation bilaterally Cardio regular rate, regular rhythm, S1 normal heart sound, S2 normal heart sound, no murmurs, no rub, no gallops and no clicks Extremity Extremity Narrative: Left thigh donor site healing well, xeroform reapplied (XF was not stuck down on wound bed and didn't dry out). Debridement Note Debridement Note Post-Debridement Measurements and Additional Note: Post-Debridement Measurements/Treatment WC - Nurse 1 - General Ulcer Assessment Start: 06/17/24 13:56 Freq: Status: Active Protocol: MILADY.LOWEXT Activity Type Activity Date Activity User E-sign Co-sign Detail Recorded Client Recorded Date Recorded By Document 06/17/24 13:56 KW [id number] 06/17/24 14:01 06/17/24 13:56 - Today's Visit Information Type of service Follow-up Visit (Physician/DIRECTOR CARDIOVASCULAR ) Arrival Mode Ambulatory,Cane Patient Identification Verified (Name & Yes ) Height and Weight Body Mass Index (BMI) 34.9 BMI Classification Obese Vital Signs Temperature (97.8 F-99.1 F) 96.7 F L Temperature Source Temporal Pulse Rate (60-100) 75 Pulse Location Monitor Respiratory Rate (12-18) 18 Respiratory rate source Observation Oxygen Delivery Method Room Air Blood Pressure (90/60-120/80) 128/62 H Blood Pressure Mean 84 Source Monitor Position Sitting Blood Pressure Location Left Arm History Since Last Visit- (Skip if this is Patient's initial visit) Have you changed medications since your No last visit? Any new allergies or adverse reactions No Had a fall/change in ADL's that may No increase risk of falls Signs or symptoms of abuse and/or No neglect since last visit Have you been in the hospital since your No last visit? Has dressing in place as prescribed Yes Has compression in place as prescribed Yes Has offloadiing in place as prescribed N/A Experienced any changes in pain level or No management Left Footwear Regular Shoe Right Footwear Regular Shoe Pain Scale: 0-10 Numeric Is Patient Pain Free? No L posterior ankle -Intensity 7 -Alleviating Factors/Interventions Medication - Nurse 1 - General Ulcer Measurement Start: 06/17/24 13:56 Freq: Status: Active Protocol: Activity Type Activity Date Activity User E-sign Co-sign Detail Recorded Client Recorded Date Recorded By Document 06/17/24 13:56 KW [id number] 06/17/24 14:01 KW 06/17/24 13:56 Wound Center Nurse 1 #6 graft site LT UPPER LE -Current Size (cm) - Length 0.1 -Current Size (cm) - Width 0.1 -Current Size (cm) - Depth 0.1 -Total Square Cm 0.01 -Wound Margin Distinct, Outline Attached -Texture (Yanely-wound Skin Appearance) Assessed -Moisture (Yanely-wound Skin Appearance) Assessed -Color (Yanely-wound Skin Appearance) Assessed, Erythema -Temperature (Yanely-wound Skin No Abnormality Appearance) (Pt Warm) -Tenderness on Palpation (Yanely-wound No Skin Appearance) -Foul Odor after Cleansing No -Wound Comment(s) HANS INTACT 5. L post ankle/ Achilles repair post-op -Current Size (cm) - Length 0.1 -Current Size (cm) - Width 0.1 -Current Size (cm) - Depth 0.1 -Total Square Cm 0.01 -Exudate Amt Small -Exudate Type Serosanguineous -Wound Margin Distinct, Outline Attached -Texture (Yanely-wound Skin Appearance) Assessed -Moisture (Yanely-wound Skin Appearance) Assessed -Color (Yanely-wound Skin Appearance) Assessed -Temperature (Yanely-wound Skin No Abnormality Appearance) (Pt Warm) -Tenderness on Palpation (Yanely-wound No Skin Appearance) -Foul Odor after Cleansing No -Wound Comment(s) GRAFT WC - Nurse 2 - General Ulcer CM Notes Start: 06/17/24 13:56 Freq: Status: Active Protocol: Activity Type Activity Date Activity User E-sign Co-sign Detail Recorded Client Recorded Date Recorded By Document 06/17/24 14:11 [id number] 06/17/24 14:13 06/17/24 14:11 Wound Center Nurse 2 #6 graft site LT UPPER LE -Correct Patient No -Correct Side, Site, Position No -Correct Procedure No -Procedure Performed No -Wound/Ulcer Outcome Not Healed 5. L post ankle/ Achilles repair post-op -Correct Patient No -Correct Side, Site, Position No -Correct Procedure No -Procedure Performed No -Wound/Ulcer Outcome Not Healed Pain Scale: 0-10 Numeric Is Patient Pain Free? Yes WC - Nurse 3 - General Ulcer D/C NN Start: 06/17/24 13:56 Freq: Status: Active Protocol: Activity Type Activity Date Activity User E-sign Co-sign Detail Recorded Client Recorded Date Recorded By Document 06/17/24 14:22 JF [id number] 06/17/24 14:23 JF Document 06/24/24 15:03 DL [id number] 06/24/24 15:04 DL Edit Result 06/24/24 15:03 DL (1) [id number] 06/24/24 15:08 DL (1) 5. L post ankle/ Achilles repair post-op - NPWT Application Charge NPWT & Debridement => NPWT </= 50 sq cm (nc) => ($) 06/17/24 06/24/24 14:22 15:03 Wound Care Center Nurse 3 #6 graft site LT UPPER LE -Ulcer Cleansing Rinsed/ Rinsed/ Irrigated with Irrigated with Saline Saline -Foul Odor after Cleansing No No -Other Dressing xeroform xerofrom -Primary Dressing Covered/Secured with Dry Gauze, Dry Gauze & Secured with Roll Gauze, Tape Secured with Tape 5. L post ankle/ Achilles repair post-op -Ulcer Cleansing Rinsed/ Irrigated with Saline -Foul Odor after Cleansing No -Negative Pressure Wound Therapy Continue Continue -Setting (mmHg) 125 125 -Negative Pressure is Continuous Continuous -Other Covering nirav -NPWT Application Charge NPWT </= 50 sq NPWT </= 50 sq cm ($) cm ($) Treatment Response Procedure Tolerated Well Pain Scale: 0-10 Numeric Is Patient Pain Free? Yes Yes WC - Visit Discharge Discharge Condition Stable Stable Ambulatory Status Ambulatory,Cane Ambulatory,Cane Transportation Private Auto Private Auto Medication Reconcilliation completed & Yes provided to patient/care provider Clinical Summary of Care Provided Yes Facility Type Home Health Orders Sent Yes Charges/Coding Procedures Integumentary 111xxx-113xx: 50683 Global Visit Assessment/Plan Assessment/Plan (1) Wound of left ankle: CODE(S): S91.002A - Unspecified open wound, left ankle, initial encounter PLAN: This wound is related to diabetes Patient has had hyperbaric oxygen before. She currently has a compromised skin graft that would benefit from hyperbaric oxygen. PLAN: Plan Referral to ENT physician assistant distribution manager for earwax removal and visualization of TMs for clearance for HBO. EKG and chest x-ray reviewed in preparation for HBO, no concerns at this time. Follow-up in 1 week in the wound care center. Continue wound VAC therapy to the right ankle (plan to change three times per week with home health. Told to use adaptic) Continue tight glucose control (discussed with patient low added sugar and high protein diet).
[2024-07-01 15:44] VITALS: BP 131/69; PULSE 70; RESP 16; TEMP 35.9; BMI 34.9
--- NOTE | 2024-07-01 17:35 | PCM.PN.SRG ---
Subjective Subjective Chief Complaint: Surgical dehiscence with exposure of the Achilles tendon left lower extremity History of Wound: 58 y/o female with DM type II with peripheral polyneuropathy, peripheral vascular disease, asthma, morbid obesity, HTN, and hyperlipidemia presents to the wound care center for continued care of surgical dehiscence of her posterior left lower extremity with exposure of the Achilles tendon. Patient underwent surgical intervention to correct calcaneal gait with plantar ulceration of the left heel on 01/26/2024. At that time of surgery she was found to have tendo Achilles tear to the left lower extremity resulting in a calcaneal gait. Tendon was debrided and a shortening of the tendo Achilles was performed in addition to FHL tendon transfer. 3 weeks later patient had fallen placing weight to the foot resulting in a tear and dehiscence of the surgical site with exposure of the Achilles tendon. She was returned to the OR for debridement on 02/22/2024 and wound VAC was applied over ulcerative area. She did have PICC line and completed 6 weeks of IV antibiotics during stay in the transitional care unit. She completed IV antibiotic 04/04/2024 PICC line was pulled and she was discharged from the transitional care unit to home. Surgery by Dr. Solano on 05/20/23 for Excision of left posterior ankle wound, including biofilm, subcutaneous tissue, fascia, and tendon, 7 x 3 cm and Irrigating wound VAC, vera flow, not disposable AND 05/22/24 - Excision of left posterior ankle wound, including biofilm, subcutaneous tissue, fascia, and tendon and Placement of dermal substitute (Integra) and wound VAC placed. Operative culture 05/15/24 positive for MSSA and Anaerobic cocci. She is still being treated with Doxy, cefdinir, Flagyl. She denies N/V/F/chills. Denies further complaints. 24 June 2024 : patient underwent multiple debridements and eventual skin grafting on. 11 June 2024 following Integra placement. She has a partial take of the graft and presents today for evaluation for HBO therapy Current Encounter 01 Jul 2024: Doing well overall with the VAC. No concerns at this time. No fevers or chills. Objective Data Objective Data Vital Signs: Vital Signs Temp Pulse Resp BP O2 Del Method 96.7 F L 70 16 131/69 H Room Air 07/01/24 15:44 07/01/24 15:44 07/01/24 15:44 07/01/24 15:44 07/01/24 15:44 Oxygen Delivery Method Room Air Weight: 230 lb Body Mass Index (BMI) 34.9 Physical Exam Narrative Near 100%skin graft compromise/loss (would benefit from hyperbaric oxygen therapy). No signs of infection. No exposed tendon at this time. Const alert and oriented x3 General Appearance: cooperative HEENT normocephalic HEENT Narrative: Tympanic membranes were not visualized, too much cerumen Neck full ROM Resp normal respiratory effort Auscultation: clear to auscultation bilaterally Cardio regular rate, regular rhythm, S1 normal heart sound, S2 normal heart sound, no murmurs, no rub, no gallops and no clicks Extremity Extremity Narrative: Left thigh donor site healing well, xeroform reapplied (XF was not stuck down on wound bed and didn't dry out). Assessment & Plan Assessment/Plan (1) Skin graft (allograft) (autograft) failure: PLAN: Plan for HBO therapy Starting tomorrow if cleared by ENT (seeing them immediately before) VAC changes three times per week F/u in the wound care center on Monday, 08 Jul 2024. Charges/Coding Procedures Integumentary [id number]: [id number] Global Visit
--- NOTE | 2024-07-02 08:26 | WC ---
PHOTO 07/01/24 LEFT UPPER LE GRAFT SITE
--- NOTE | 2024-07-02 08:27 | WC ---
PHOTO 07/01/24 LEFT POST EMELI GEE
[2024-07-02 09:47] LABS: Bedside Glucose 194 mg/dL (74-106)
--- NOTE | 2024-07-02 10:04 | PCM.HBO.PN ---
History of Present Illness Date of Service: 07/02/24 Chief Complaint: Surgical dehiscence with exposure of the Achilles tendon left lower extremity History of Wound: 58 y/o female with DM type II with peripheral polyneuropathy, peripheral vascular disease, asthma, morbid obesity, HTN, and hyperlipidemia presents to the wound care center for continued care of surgical dehiscence of her posterior left lower extremity with exposure of the Achilles tendon. Patient underwent surgical intervention to correct calcaneal gait with plantar ulceration of the left heel on 01/26/2024. At that time of surgery she was found to have tendo Achilles tear to the left lower extremity resulting in a calcaneal gait. Tendon was debrided and a shortening of the tendo Achilles was performed in addition to FHL tendon transfer. 3 weeks later patient had fallen placing weight to the foot resulting in a tear and dehiscence of the surgical site with exposure of the Achilles tendon. She was returned to the OR for debridement on 02/22/2024 and wound VAC was applied over ulcerative area. She did have PICC line and completed 6 weeks of IV antibiotics during stay in the transitional care unit. She completed IV antibiotic 04/04/2024 PICC line was pulled and she was discharged from the transitional care unit to home. Surgery by Dr. Solano on 06/10/24 for Split-thickness skin grafting from the left lateral thigh to the left Achilles tendon ankle wound 7 x [address] Solano on 05/20/23 for Excision of left posterior ankle wound, including biofilm, subcutaneous tissue, fascia, and tendon, 7 x 3 cm and Irrigating wound VAC, vera flow, not disposable AND 05/22/24 - Excision of left posterior ankle wound, including biofilm, subcutaneous tissue, fascia, and tendon and Placement of dermal substitute (Integra) and wound VAC placed. Operative culture 05/15/24 positive for MSSA and Anaerobic cocci. She is still being treated with Doxy, cefdinir, Flagyl. Patient underwent multiple debridements and eventual skin grafting on. 11 June 2024. She has developed compromise of her skin graft. Progress of Wound: Today is the 1st treatment of hyperbaric oxygen therapy. The patient is scheduled for 20 treatments total. Tolerance of hyperbaric oxygen therapy: Hyperbaric oxygen treatment was provided as the per the facility's protocol at 2.0 ALEYDA at 100% oxygen for 90 minutes without air breaks. The patient tolerated the hyperbatic oxygen well, without complications or complaints. Upon emergence of the hyperbaric chamber, the patient's vital signs remained stable. Blood sugars as documented. Objective Data Objective Data Vital Signs: Vital Signs Temp Pulse Resp BP O2 Del Method 96.7 F L 70 16 131/69 H Room Air 07/01/24 15:44 07/01/24 15:44 07/01/24 15:44 07/01/24 15:44 07/01/24 15:44 Oxygen Delivery Method Room Air Weight: 230 lb Body Mass Index (BMI) 34.9 Lab / Micro Data Labs: Laboratory Results - last 24 hr 07/02/24 09:28: POC Glucose 194 H Exam Physical Exam Const alert, oriented x3 and no apparent distress General Appearance: cooperative HEENT normocephalic Head and Scalp: atraumatic Eyes General Eye: normal appearance of both eyes Resp normal respiratory effort and no use of accessory muscles Resp Narrative: Right lung is clear. Left lung has some expiratory wheezes. Effort and Inspection: able to speak in complete sentences Cardio regular rate and regular rhythm Psych affect normal Nursing Assessment and Debridement Post-Debridement Measurements and Additional Note: Post-Debridement Measurements/Treatment - Nurse 1 - General Ulcer Assessment Start: 06/17/24 13:56 Freq: Status: Active Protocol: BUSTER Activity Type Activity Date Activity User E-sign Co-sign Detail Recorded Client Recorded Date Recorded By Document 07/01/24 15:44 [facility] [id number] 07/01/24 15:59 [facility] 07/01/24 15:44 - Today's Visit Information Type of service Follow-up Visit (Physician/STRUCTURAL WORKER ) Arrival Mode Ambulatory, Walker Transfer Assistance None Patient Identification Verified (Name & Yes ) Patient Requires Transmission-Based No Precautions Height and Weight Body Mass Index (BMI) 34.9 BMI Classification Obese Vital Signs Temperature (97.8 F-99.1 F) 96.7 F L Temperature Source Temporal Pulse Rate (60-100) 70 Pulse Location Monitor Respiratory Rate (12-18) 16 Respiratory rate source Observation Oxygen Delivery Method Room Air Blood Pressure (90/60-120/80) 131/69 H Blood Pressure Mean (mm Hg) 89 Source Monitor Position Sitting Blood Pressure Location Right Arm History Since Last Visit- (Skip if this is Patient's initial visit) Have you changed medications since your No last visit? Any new allergies or adverse reactions No Had a fall/change in ADL's that may No increase risk of falls Signs or symptoms of abuse and/or No neglect since last visit Have you been in the hospital since your No last visit? Has dressing in place as prescribed Yes Has compression in place as prescribed Yes Has offloadiing in place as prescribed Yes Experienced any changes in pain level or No management Left Footwear Removable Cast Walker/Walking Boot Right Footwear Diabetic Shoe Pain Scale: 0-10 Numeric Is Patient Pain Free? Yes WC - Nurse 1 - General Ulcer Measurement Start: 06/17/24 13:56 Freq: Status: Active Protocol: Activity Type Activity Date Activity User E-sign Co-sign Detail Recorded Client Recorded Date Recorded By Document 07/01/24 15:44 [facility] [id number] 07/01/24 15:59 [facility] 07/01/24 15:44 Wound Center Nurse 1 #6 graft site LT UPPER LE -Combined with other wound No -Current Size (cm) - Length 0.1 -Current Size (cm) - Width 0.1 -Current Size (cm) - Depth 0.1 -Total Square Cm 0.01 -Date of Last Picture (Recall this 07/01/24 field) -Photo Taken Yes -Epithelialization Large 67-100% 5. L post ankle/ Achilles repair post-op -Combined with other wound No -Current Size (cm) - Length 6 -Current Size (cm) - Width 2.1 -Current Size (cm) - Depth 0.1 -Total Square Cm 12.6 -Date of Last Picture (Recall this 07/01/24 field) -Photo Taken Yes -Epithelialization Small 1-33% -Tunneling No -Undermining/Tunneling No -Circular Undermining No -Exudate Amt Medium -Exudate Type Serosanguineous -Wound Margin Distinct, Outline Attached -Granulation Amt Large (67-100%) -Granulation Quality [place] -Slough/Fibrin Yes -Necrosis Amt Small (1-33%) -Necrotic Tissue Type Adherent Slough -Texture (Yanely-wound Skin Appearance) Assessed, Scarring -Moisture (Yanely-wound Skin Appearance) Assessed,Dry/ Scaly -Color (Yanely-wound Skin Appearance) Assessed -Temperature (Yanely-wound Skin No Abnormality Appearance) (Pt Warm) -Tenderness on Palpation (Yanely-wound No Skin Appearance) -Ulcer Cleansing Soap and Water -Foul Odor after Cleansing No -Anesthetic Used 5% Lidocaine Gel - Nurse 2 - General Ulcer CM Notes Start: 06/17/24 13:56 Freq: Status: Active Protocol: Activity Type Activity Date Activity User E-sign Co-sign Detail Recorded Client Recorded Date Recorded By Document 07/01/24 16:47 [id number] 07/01/24 16:48 07/01/24 16:47 Wound Center Nurse 2 #6 graft site LT UPPER LE -Correct Patient No -Correct Side, Site, Position No -Correct Procedure No -Procedure Performed No -Wound/Ulcer Outcome Not Healed 5. L post ankle/ Achilles repair post-op -Correct Patient No -Correct Side, Site, Position No -Correct Procedure No -Procedure Performed No -Wound/Ulcer Outcome Not Healed Pain Scale: 0-10 Numeric Is Patient Pain Free? Yes - Nurse 3 - General Ulcer D/C NN Start: 06/17/24 13:56 Freq: Status: Active Protocol: Activity Type Activity Date Activity User E-sign Co-sign Detail Recorded Client Recorded Date Recorded By Document 07/01/24 16:48 [id number] 07/01/24 16:49 07/01/24 16:48 Wound Care Center Nurse 3 5. L post ankle/ Achilles repair post-op -Ulcer Cleansing Rinsed/ Irrigated with Saline -Foul Odor after Cleansing No -Negative Pressure Wound Therapy Continue -Setting (mmHg) 125 -Negative Pressure is Continuous -NPWT Application Charge NPWT </= 50 sq cm ($) Pain Scale: 0-10 Numeric Is Patient Pain Free? Yes WC - Visit Discharge Discharge Condition Stable Ambulatory Status Ambulatory Transportation Private Auto Medication Reconcilliation completed & Yes provided to patient/care provider Clinical Summary of Care Provided Yes Charges/Coding Wound Center CF Procedures HBO Supervision: [id number] Hyperbaric Oxygen; supervision Assessment/Plan Assessment/Plan (1) Skin graft (allograft) (autograft) failure: CODE(S): T86.821 - Skin graft (allograft) (autograft) failure (2) Wound of left ankle: CODE(S): S91.002A - Unspecified open wound, left ankle, initial encounter (3) Type 2 diabetes mellitus with hyperglycemia: CODE(S): E11.65 - Type 2 diabetes mellitus with hyperglycemia PLAN: Plan The patient tolerated hyperbaric oxygen therapy well which will be continued per her medical plan.
[2024-07-02 12:16] VITALS: BP 119/72; BP 127/69; PULSE 66; PULSE 70; RESP 17; RESP 18; TEMP 36.6
[2024-07-02 12:22] LABS: Bedside Glucose 161 mg/dL (74-106)
[2024-07-03 11:46] LABS: Bedside Glucose 161 mg/dL (74-106)
--- NOTE | 2024-07-03 13:29 | HBO.PN.PCM_ITS ---
History of Present Illness Date of Service: 07/03/24 Chief Complaint: Surgical dehiscence with exposure of the Achilles tendon left lower extremity History of Wound: 58 y/o female with DM type II with peripheral polyneuropathy, peripheral vascular disease, asthma, morbid obesity, HTN, and hyperlipidemia presented to the Wound Center for continued care of surgical dehiscence of her posterior left lower extremity with exposure of the Achilles tendon. The patient underwent surgical intervention to correct calcaneal gait with plantar ulceration of the left heel on 01/26/2024. At that time of surgery she was found to have tendo Achilles tear to the left lower extremity resulting in a calcaneal gait. Tendon was debrided and a shortening of the tendo Achilles was performed in addition to FHL tendon transfer. 3 weeks later patient had fallen placing weight to the foot resulting in a tear and dehiscence of the surgical site with exposure of the Achilles tendon. She was returned to the OR for debridement on 02/22/2024 and wound VAC was applied over ulcerative area. She did have PICC line and completed 6 weeks of IV antibiotics during stay in the transitional care unit. She completed IV antibiotic 04/04/2024 PICC line was pulled and she was discharged from the transitional care unit to home. Surgery by Dr. Solano on 06/10/24 for Split-thickness skin grafting from the left lateral thigh to the left Achilles tendon ankle wound 7 x [address] Solano on 05/20/23 for Excision of left posterior ankle wound, including biofilm, subcutaneous tissue, fascia, and tendon, 7 x 3 cm and Irrigating wound VAC, vera flow, not disposable AND 05/22/24 - Excision of left posterior ankle wound, including biofilm, subcutaneous tissue, fascia, and tendon and Placement of dermal substitute (Integra) and wound VAC placed. Operative culture 05/15/24 positive for MSSA and Anaerobic cocci. She is still being treated with Doxy, cefdinir, Flagyl. Patient underwent multiple debridements and eventual skin grafting on 11 June 2024. She has developed compromise of her skin graft. Progress of Wound: Today is the 2nd treatment of hyperbaric oxygen therapy. The patient is scheduled for 20 treatments total. Tolerance of hyperbaric oxygen therapy: Hyperbaric oxygen treatment was provided as the per the facility's protocol at 2.0 ALEYDA at 100% oxygen for 90 minutes without air breaks. The patient tolerated the hyperbatic oxygen therapy well, without complications or complaints. Upon emergence of the hyperbaric chamber, the patient's vital signs remained stable. Blood sugars as documented - pre-HBO 161; post HBO - 166 Objective Data Objective Data Vital Signs: Vital Signs Temp Pulse Resp BP O2 Del Method 97.9 F 70 17 119/72 Room Air 07/02/24 12:16 07/02/24 12:16 07/02/24 12:16 07/02/24 12:16 07/01/24 15:44 Oxygen Delivery Method Room Air Weight: 230 lb Body Mass Index (BMI) 34.9 Lab / Micro Data Attestation: I reviewed the patient's lab results. Labs: Laboratory Results - last 24 hr 07/03/24 11:29: POC Glucose 161 H Exam Physical Exam Const alert, oriented x3 and no apparent distress General Appearance: cooperative and well developed HEENT normocephalic Head and Scalp: atraumatic Eyes EOMs intact bilaterally General Eye: normal appearance of both eyes Neck no JVD Resp normal respiratory effort and no use of accessory muscles Resp Narrative: Right lung is clear. Left lung has some expiratory wheezes. Effort and Inspection: able to speak in complete sentences Psych affect normal Appearance: grossly normal Speech: normal speech Nursing Assessment and Debridement Post-Debridement Measurements and Additional Note: Post-Debridement Measurements/Treatment - Nurse 1 - General Ulcer Assessment Start: 06/17/24 13:56 Freq: Status: Active Protocol: WC.LOWEXT Activity Type Activity Date Activity User E-sign Co-sign Detail Recorded Client Recorded Date Recorded By Document 07/01/24 15:44 [facility] [id number] 07/01/24 15:59 [facility] 07/01/24 15:44 - Today's Visit Information Type of service Follow-up Visit (Physician/SEMICONDUCTOR LAB TECHNICIAN ) Arrival Mode Ambulatory, Walker Transfer Assistance None Patient Identification Verified (Name & Yes ) Patient Requires Transmission-Based No Precautions Height and Weight Body Mass Index (BMI) 34.9 BMI Classification Obese Vital Signs Temperature (97.8 F-99.1 F) 96.7 F L Temperature Source Temporal Pulse Rate (60-100) 70 Pulse Location Monitor Respiratory Rate (12-18) 16 Respiratory rate source Observation Oxygen Delivery Method Room Air Blood Pressure (90/60-120/80) 131/69 H Blood Pressure Mean (mm Hg) 89 Source Monitor Position Sitting Blood Pressure Location Right Arm History Since Last Visit- (Skip if this is Patient's initial visit) Have you changed medications since your No last visit? Any new allergies or adverse reactions No Had a fall/change in ADL's that may No increase risk of falls Signs or symptoms of abuse and/or No neglect since last visit Have you been in the hospital since your No last visit? Has dressing in place as prescribed Yes Has compression in place as prescribed Yes Has offloadiing in place as prescribed Yes Experienced any changes in pain level or No management Left Footwear Removable Cast Walker/Walking Boot Right Footwear Diabetic Shoe Pain Scale: 0-10 Numeric Is Patient Pain Free? Yes WC - Nurse 1 - General Ulcer Measurement Start: 06/17/24 13:56 Freq: Status: Active Protocol: Activity Type Activity Date Activity User E-sign Co-sign Detail Recorded Client Recorded Date Recorded By Document 07/01/24 15:44 [facility] [id number] 07/01/24 15:59 [facility] 07/01/24 15:44 Wound Center Nurse 1 #6 graft site LT UPPER LE -Combined with other wound No -Current Size (cm) - Length 0.1 -Current Size (cm) - Width 0.1 -Current Size (cm) - Depth 0.1 -Total Square Cm 0.01 -Date of Last Picture (Recall this 07/01/24 field) -Photo Taken Yes -Epithelialization Large 67-100% 5. L post ankle/ Achilles repair post-op -Combined with other wound No -Current Size (cm) - Length 6 -Current Size (cm) - Width 2.1 -Current Size (cm) - Depth 0.1 -Total Square Cm 12.6 -Date of Last Picture (Recall this 07/01/24 field) -Photo Taken Yes -Epithelialization Small 1-33% -Tunneling No -Undermining/Tunneling No -Circular Undermining No -Exudate Amt Medium -Exudate Type Serosanguineous -Wound Margin Distinct, Outline Attached -Granulation Amt Large (67-100%) -Granulation Quality [place] -Slough/Fibrin Yes -Necrosis Amt Small (1-33%) -Necrotic Tissue Type Adherent Slough -Texture (Yanely-wound Skin Appearance) Assessed, Scarring -Moisture (Yanely-wound Skin Appearance) Assessed,Dry/ Scaly -Color (Yanely-wound Skin Appearance) Assessed -Temperature (Yanely-wound Skin No Abnormality Appearance) (Pt Warm) -Tenderness on Palpation (Yanely-wound No Skin Appearance) -Ulcer Cleansing Soap and Water -Foul Odor after Cleansing No -Anesthetic Used 5% Lidocaine Gel - Nurse 2 - General Ulcer CM Notes Start: 06/17/24 13:56 Freq: Status: Active Protocol: Activity Type Activity Date Activity User E-sign Co-sign Detail Recorded Client Recorded Date Recorded By Document 07/01/24 16:47 [id number] 07/01/24 16:48 JF 07/01/24 16:47 Wound Center Nurse 2 #6 graft site LT UPPER LE -Correct Patient No -Correct Side, Site, Position No -Correct Procedure No -Procedure Performed No -Wound/Ulcer Outcome Not Healed 5. L post ankle/ Achilles repair post-op -Correct Patient No -Correct Side, Site, Position No -Correct Procedure No -Procedure Performed No -Wound/Ulcer Outcome Not Healed Pain Scale: 0-10 Numeric Is Patient Pain Free? Yes - Nurse 3 - General Ulcer D/C NN Start: 06/17/24 13:56 Freq: Status: Active Protocol: Activity Type Activity Date Activity User E-sign Co-sign Detail Recorded Client Recorded Date Recorded By Document 07/01/24 16:48 [id number] 07/01/24 16:49 07/01/24 16:48 Wound Care Center Nurse 3 5. L post ankle/ Achilles repair post-op -Ulcer Cleansing Rinsed/ Irrigated with Saline -Foul Odor after Cleansing No -Negative Pressure Wound Therapy Continue -Setting (mmHg) 125 -Negative Pressure is Continuous -NPWT Application Charge NPWT </= 50 sq cm ($) Pain Scale: 0-10 Numeric Is Patient Pain Free? Yes WC - Visit Discharge Discharge Condition Stable Ambulatory Status Ambulatory Transportation Private Auto Medication Reconcilliation completed & Yes provided to patient/care provider Clinical Summary of Care Provided Yes Charges/Coding Wound Center CF Procedures HBO Supervision: [id number] Hyperbaric Oxygen; supervision Assessment/Plan Assessment/Plan (1) Skin graft (allograft) (autograft) failure: CODE(S): T86.821 - Skin graft (allograft) (autograft) failure (2) Wound of left ankle: CODE(S): S91.002A - Unspecified open wound, left ankle, initial encounter QUALIFIERS: Encounter type: initial encounter Qualified Code(s): S91.002A - Unspecified open wound, left ankle, initial encounter (3) Type 2 diabetes mellitus with hyperglycemia: CODE(S): E11.65 - Type 2 diabetes mellitus with hyperglycemia PLAN: Plan The patient tolerated hyperbaric oxygen therapy well, which will be continued as per her medical plan.
[2024-07-03 13:50] VITALS: BP 119/70; BP 141/81; PULSE 71; PULSE 75; RESP 17; RESP 18; TEMP 36.7
[2024-07-03 13:54] LABS: Bedside Glucose 166 mg/dL (74-106)
[2024-07-04 09:17] LABS: Bedside Glucose 128 mg/dL (74-106)
[2024-07-04 09:45] LABS: Bedside Glucose 176 mg/dL (74-106)
[2024-07-04 11:31] VITALS: BP 123/83; BP 124/71; PULSE 73; PULSE 76; RESP 17; RESP 18; TEMP 35.9; TEMP 36.2
[2024-07-04 11:35] LABS: Bedside Glucose 168 mg/dL (74-106)
--- NOTE | 2024-07-04 14:25 | PCM.HBO.PN ---
History of Present Illness Date of Service: 07/04/24 Chief Complaint: Surgical dehiscence with exposure of the Achilles tendon left lower extremity History of Wound: 58 y/o female with DM type II with peripheral polyneuropathy, peripheral vascular disease, asthma, morbid obesity, HTN, and hyperlipidemia presented to the [facility] for continued care of surgical dehiscence of her posterior left lower extremity with exposure of the Achilles tendon. The patient underwent surgical intervention to correct calcaneal gait with plantar ulceration of the left heel on 01/26/2024. At that time of surgery she was found to have tendo Achilles tear to the left lower extremity resulting in a calcaneal gait. Tendon was debrided and a shortening of the tendo Achilles was performed in addition to FHL tendon transfer. 3 weeks later patient had fallen placing weight to the foot resulting in a tear and dehiscence of the surgical site with exposure of the Achilles tendon. She was returned to the OR for debridement on 02/22/2024 and wound VAC was applied over ulcerative area. She did have PICC line and completed 6 weeks of IV antibiotics during stay in the transitional care unit. She completed IV antibiotic 04/04/2024 PICC line was pulled and she was discharged from the transitional care unit to home. Surgery by Dr. Solano on 06/10/24 for Split-thickness skin grafting from the left lateral thigh to the left Achilles tendon ankle wound 7 x [address] Solano on 05/20/23 for Excision of left posterior ankle wound, including biofilm, subcutaneous tissue, fascia, and tendon, 7 x 3 cm and Irrigating wound VAC, vera flow, not disposable AND 05/22/24 - Excision of left posterior ankle wound, including biofilm, subcutaneous tissue, fascia, and tendon and Placement of dermal substitute (Integra) and wound VAC placed. Operative culture 05/15/24 positive for MSSA and Anaerobic cocci. She is still being treated with Doxy, cefdinir, Flagyl. Patient underwent multiple debridements and eventual skin grafting on 11 June 2024. She has developed compromise of her skin graft. Progress of Wound: Progress: Today represents her third hyperbaric oxygen therapy treatment. She has been scheduled for 20 sessions. Tolerance of hyperbaric oxygen therapy: Hyperbaric oxygen treatment was administered as the per the facility's protocol, 100% oxygen at 2 ALEYDA for 90 minutes without air breaks. The patient tolerated the hyperbaric oxygen therapy well, without complications or complaints. Upon emergence from the hyperbaric chamber, the patient's vital signs remained stable. Pre and post blood sugars as documented. Objective Data Objective Data Vital Signs: Vital Signs Temp Pulse Resp BP O2 Del Method 97.2 F L 73 17 123/83 H Room Air 07/04/24 11:31 07/04/24 11:31 07/04/24 11:31 07/04/24 11:31 07/01/24 15:44 Oxygen Delivery Method Room Air Weight: 230 lb Body Mass Index (BMI) 34.9 Lab / Micro Data Labs: Laboratory Results - last 24 hr 07/04/24 08:58: POC Glucose 128 H 07/04/24 09:17: POC Glucose 176 H 07/04/24 11:17: POC Glucose 168 H Exam Physical Exam Const alert, oriented x3 and no apparent distress General Appearance: cooperative, comfortable and well kempt HEENT normocephalic, head/scalp atraumatic and hearing grossly normal bilaterally Tympanic Membrane: TM's normal bilaterally Eyes EOMs intact bilaterally Neck full ROM and supple General: normal visual inspection Resp normal respiratory effort Effort and Inspection: able to speak in complete sentences Neuro oriented x3, CN's II-XII intact bilaterally and moves all extremities Psych mental status grossly normal, thought process normal, cooperative and affect normal Nursing Assessment and Debridement Post-Debridement Measurements and Additional Note: Post-Debridement Measurements/Treatment WC - Nurse 1 - General Ulcer Assessment Start: 06/17/24 13:56 Freq: Status: Active Protocol: BUSTER Activity Type Activity Date Activity User E-sign Co-sign Detail Recorded Client Recorded Date Recorded By Document 07/01/24 15:44 [facility] [id number] 07/01/24 15:59 [facility] 07/01/24 15:44 - Today's Visit Information Type of service Follow-up Visit (Physician/HVAC R INSTRUCTOR ) Arrival Mode Ambulatory, Walker Transfer Assistance None Patient Identification Verified (Name & Yes ) Patient Requires Transmission-Based No Precautions Height and Weight Body Mass Index (BMI) 34.9 BMI Classification Obese Vital Signs Temperature (97.8 F-99.1 F) 96.7 F L Temperature Source Temporal Pulse Rate (60-100) 70 Pulse Location Monitor Respiratory Rate (12-18) 16 Respiratory rate source Observation Oxygen Delivery Method Room Air Blood Pressure (90/60-120/80) 131/69 H Blood Pressure Mean (mm Hg) 89 Source Monitor Position Sitting Blood Pressure Location Right Arm History Since Last Visit- (Skip if this is Patient's initial visit) Have you changed medications since your No last visit? Any new allergies or adverse reactions No Had a fall/change in ADL's that may No increase risk of falls Signs or symptoms of abuse and/or No neglect since last visit Have you been in the hospital since your No last visit? Has dressing in place as prescribed Yes Has compression in place as prescribed Yes Has offloadiing in place as prescribed Yes Experienced any changes in pain level or No management Left Footwear Removable Cast Walker/Walking Boot Right Footwear Diabetic Shoe Pain Scale: 0-10 Numeric Is Patient Pain Free? Yes WC - Nurse 1 - General Ulcer Measurement Start: 06/17/24 13:56 Freq: Status: Active Protocol: Activity Type Activity Date Activity User E-sign Co-sign Detail Recorded Client Recorded Date Recorded By Document 07/01/24 15:44 [facility] [id number] 07/01/24 15:59 [facility] 07/01/24 15:44 Wound Center Nurse 1 #6 graft site LT UPPER LE -Combined with other wound No -Current Size (cm) - Length 0.1 -Current Size (cm) - Width 0.1 -Current Size (cm) - Depth 0.1 -Total Square Cm 0.01 -Date of Last Picture (Recall this 07/01/24 field) -Photo Taken Yes -Epithelialization Large 67-100% 5. L post ankle/ Achilles repair post-op -Combined with other wound No -Current Size (cm) - Length 6 -Current Size (cm) - Width 2.1 -Current Size (cm) - Depth 0.1 -Total Square Cm 12.6 -Date of Last Picture (Recall this 07/01/24 field) -Photo Taken Yes -Epithelialization Small 1-33% -Tunneling No -Undermining/Tunneling No -Circular Undermining No -Exudate Amt Medium -Exudate Type Serosanguineous -Wound Margin Distinct, Outline Attached -Granulation Amt Large (67-100%) -Granulation Quality [place] -Slough/Fibrin Yes -Necrosis Amt Small (1-33%) -Necrotic Tissue Type Adherent Slough -Texture (Yanely-wound Skin Appearance) Assessed, Scarring -Moisture (Yanely-wound Skin Appearance) Assessed,Dry/ Scaly -Color (Yanely-wound Skin Appearance) Assessed -Temperature (Yanely-wound Skin No Abnormality Appearance) (Pt Warm) -Tenderness on Palpation (Yanely-wound No Skin Appearance) -Ulcer Cleansing Soap and Water -Foul Odor after Cleansing No -Anesthetic Used 5% Lidocaine Gel - Nurse 2 - General Ulcer CM Notes Start: 06/17/24 13:56 Freq: Status: Active Protocol: Activity Type Activity Date Activity User E-sign Co-sign Detail Recorded Client Recorded Date Recorded By Document 07/01/24 16:47 [id number] 07/01/24 16:48 07/01/24 16:47 Wound Center Nurse 2 #6 graft site LT UPPER LE -Correct Patient No -Correct Side, Site, Position No -Correct Procedure No -Procedure Performed No -Wound/Ulcer Outcome Not Healed 5. L post ankle/ Achilles repair post-op -Correct Patient No -Correct Side, Site, Position No -Correct Procedure No -Procedure Performed No -Wound/Ulcer Outcome Not Healed Pain Scale: 0-10 Numeric Is Patient Pain Free? Yes - Nurse 3 - General Ulcer D/C NN Start: 06/17/24 13:56 Freq: Status: Active Protocol: Activity Type Activity Date Activity User E-sign Co-sign Detail Recorded Client Recorded Date Recorded By Document 07/01/24 16:48 [id number] 07/01/24 16:49 07/01/24 16:48 Wound Care Center Nurse 3 5. L post ankle/ Achilles repair post-op -Ulcer Cleansing Rinsed/ Irrigated with Saline -Foul Odor after Cleansing No -Negative Pressure Wound Therapy Continue -Setting (mmHg) 125 -Negative Pressure is Continuous -NPWT Application Charge NPWT </= 50 sq cm ($) Pain Scale: 0-10 Numeric Is Patient Pain Free? Yes WC - Visit Discharge Discharge Condition Stable Ambulatory Status Ambulatory Transportation Private Auto Medication Reconcilliation completed & Yes provided to patient/care provider Clinical Summary of Care Provided Yes Charges/Coding Wound Center CF Procedures HBO Supervision: [id number] Hyperbaric Oxygen; supervision Assessment/Plan Assessment/Plan (1) Skin graft (allograft) (autograft) failure: CODE(S): T86.821 - Skin graft (allograft) (autograft) failure (2) Wound of left ankle: CODE(S): S91.002A - Unspecified open wound, left ankle, initial encounter QUALIFIERS: Encounter type: initial encounter Qualified Code(s): S91.002A - Unspecified open wound, left ankle, initial encounter (3) Type 2 diabetes mellitus with hyperglycemia: CODE(S): E11.65 - Type 2 diabetes mellitus with hyperglycemia PLAN: Plan The patient tolerated hyperbaric oxygen therapy well, which will be continued as per her medical plan. This note was generated with [employer] dictation software. It may contain incorrect words, spelling, and punctuation that were not noted in checking the note before signing.
[2024-07-05 09:33] LABS: Bedside Glucose 132 mg/dL (74-106)
--- NOTE | 2024-07-05 10:07 | WC ---
PHOTO 07/03/24 RIGHT FOREARM
[2024-07-05 11:54] LABS: Bedside Glucose 152 mg/dL (74-106)
[2024-07-05 12:07] VITALS: BP 131/72; BP 151/79; PULSE 73; PULSE 77; RESP 17; RESP 18; TEMP 35.9; TEMP 36.2
--- NOTE | 2024-07-05 13:18 | HBO.PN.PCM_ITS ---
History of Present Illness Date of Service: 07/05/24 Chief Complaint: Surgical dehiscence with exposure of the Achilles tendon left lower extremity History of Wound: 58 y/o female with DM type II with peripheral polyneuropathy, peripheral vascular disease, asthma, morbid obesity, HTN, and hyperlipidemia presented to the Wound Center for continued care of surgical dehiscence of her posterior left lower extremity with exposure of the Achilles tendon. The patient underwent surgical intervention to correct calcaneal gait with plantar ulceration of the left heel on 01/26/2024. At that time of surgery she was found to have tendo Achilles tear to the left lower extremity resulting in a calcaneal gait. Tendon was debrided and a shortening of the tendo Achilles was performed in addition to FHL tendon transfer. 3 weeks later patient had fallen placing weight to the foot resulting in a tear and dehiscence of the surgical site with exposure of the Achilles tendon. She was returned to the OR for debridement on 02/22/2024 and wound VAC was applied over ulcerative area. She did have PICC line and completed 6 weeks of IV antibiotics during stay in the transitional care unit. She completed IV antibiotic 04/04/2024 PICC line was pulled and she was discharged from the transitional care unit to home. Surgery by Dr. Solano on 06/10/24 for Split-thickness skin grafting from the left lateral thigh to the left Achilles tendon ankle wound 7 x [address] Solano on 05/20/23 for Excision of left posterior ankle wound, including biofilm, subcutaneous tissue, fascia, and tendon, 7 x 3 cm and Irrigating wound VAC, vera flow, not disposable AND 05/22/24 - Excision of left posterior ankle wound, including biofilm, subcutaneous tissue, fascia, and tendon and Placement of dermal substitute (Integra) and wound VAC placed. Operative culture 05/15/24 positive for MSSA and Anaerobic cocci. She is still being treated with Doxy, cefdinir, Flagyl. Patient underwent multiple debridements and eventual skin grafting on 11 June 2024. She has developed compromise of her skin graft. Progress of Wound: Progress: Today represents her 4th hyperbaric oxygen therapy treatment. She has been scheduled for 20 sessions. Tolerance of hyperbaric oxygen therapy: Hyperbaric oxygen treatment was administered as the per the facility's protocol, 100% oxygen at 2 ALEYDA for 90 minutes without air breaks. The patient tolerated the hyperbaric oxygen therapy well, without complications or complaints. Upon emergence from the hyperbaric chamber, the patient's vital signs remained stable. Pre and post blood sugars as documented. Objective Data Objective Data Vital Signs: Vital Signs Temp Pulse Resp BP O2 Del Method 96.7 F L 77 18 151/79 H Room Air 07/05/24 12:07 07/05/24 12:07 07/05/24 12:07 07/05/24 12:07 07/01/24 15:44 Oxygen Delivery Method Room Air Weight: 104.326 kg Body Mass Index (BMI) 34.9 Lab / Micro Data Labs: Laboratory Results - last 24 hr 07/05/24 09:16: POC Glucose 132 H 07/05/24 11:29: POC Glucose 152 H Exam Physical Exam Const alert, oriented x3 and no apparent distress Psych mental status grossly normal, thought process normal, cooperative, affect normal and speech normal Assessment/Plan Assessment/Plan (1) Skin graft (allograft) (autograft) failure: CODE(S): T86.821 - Skin graft (allograft) (autograft) failure (2) Wound of left ankle: CODE(S): S91.002A - Unspecified open wound, left ankle, initial encounter QUALIFIERS: Encounter type: initial encounter Qualified Code(s): S91.002A - Unspecified open wound, left ankle, initial encounter (3) Type 2 diabetes mellitus with hyperglycemia: CODE(S): E11.65 - Type 2 diabetes mellitus with hyperglycemia QUALIFIERS: Diabetes mellitus intermediate teacher insulin use: without assisted use Qualified Code(s): E11.65 - Type 2 diabetes mellitus with hyperglycemia PLAN: Plan The patient tolerated hyperbaric oxygen therapy well, which will be continued as per her medical plan. This note was generated with [employer] software. It may contain incorrect words, spelling, and punctuation that were not noted in checking the note before signing.
[2024-07-08 09:13] LABS: Bedside Glucose 165 mg/dL (74-106)
--- NOTE | 2024-07-08 09:32 | PCM.HBO.PN ---
History of Present Illness Date of Service: 07/08/24 Chief Complaint: Surgical dehiscence with exposure of the Achilles tendon left lower extremity History of Wound: 58 y/o female with DM type II with peripheral polyneuropathy, peripheral vascular disease, asthma, morbid obesity, HTN, and hyperlipidemia presented to the Wound Center for continued care of surgical dehiscence of her posterior left lower extremity with exposure of the Achilles tendon. The patient underwent surgical intervention to correct calcaneal gait with plantar ulceration of the left heel on 01/26/2024. At that time of surgery she was found to have tendo Achilles tear to the left lower extremity resulting in a calcaneal gait. Tendon was debrided and a shortening of the tendo Achilles was performed in addition to FHL tendon transfer. 3 weeks later patient had fallen placing weight to the foot resulting in a tear and dehiscence of the surgical site with exposure of the Achilles tendon. She was returned to the OR for debridement on 02/22/2024 and wound VAC was applied over ulcerative area. She did have PICC line and completed 6 weeks of IV antibiotics during stay in the transitional care unit. She completed IV antibiotic 04/04/2024 PICC line was pulled and she was discharged from the transitional care unit to home. Surgery by Dr. Solano on 06/10/24 for Split-thickness skin grafting from the left lateral thigh to the left Achilles tendon ankle wound 7 x [address] Solano on 05/20/23 for Excision of left posterior ankle wound, including biofilm, subcutaneous tissue, fascia, and tendon, 7 x 3 cm and Irrigating wound VAC, vera flow, not disposable AND 05/22/24 - Excision of left posterior ankle wound, including biofilm, subcutaneous tissue, fascia, and tendon and Placement of dermal substitute (Integra) and wound VAC placed. Operative culture 05/15/24 positive for MSSA and Anaerobic cocci. She is still being treated with Doxy, cefdinir, Flagyl. Patient underwent multiple debridements and eventual skin grafting on 11 June 2024. She has developed compromise of her skin graft. Progress of Wound: Progress: Today represents her 5th hyperbaric oxygen therapy treatment. She has been scheduled for 20 sessions. Tolerance of hyperbaric oxygen therapy: Hyperbaric oxygen treatment was administered as the per the facility's protocol, 100% oxygen at 2 ALEYDA for 90 minutes without air breaks. The patient tolerated the hyperbaric oxygen therapy well, without complications or complaints. Upon emergence from the hyperbaric chamber, the patient's vital signs remained stable. Pre and post blood sugars as documented. Objective Data Objective Data Vital Signs: Vital Signs Temp Pulse Resp BP O2 Del Method 96.7 F L 77 18 151/79 H Room Air 07/05/24 12:07 07/05/24 12:07 07/05/24 12:07 07/05/24 12:07 07/01/24 15:44 Oxygen Delivery Method Room Air Weight: 230 lb Body Mass Index (BMI) 34.9 Lab / Micro Data Labs: Laboratory Results - last 24 hr 07/08/24 08:56: POC Glucose 165 H Exam Physical Exam Const alert, oriented x3 and no apparent distress General Appearance: cooperative HEENT normocephalic Head and Scalp: atraumatic Eyes General Eye: normal appearance of both eyes Resp normal respiratory effort, no use of accessory muscles and clear to auscultation bilaterally Effort and Inspection: able to speak in complete sentences Cardio regular rate and regular rhythm Psych affect normal Charges/Coding Wound Center CF Procedures HBO Supervision: [id number] Hyperbaric Oxygen; supervision Assessment/Plan Assessment/Plan (1) Skin graft (allograft) (autograft) failure: CODE(S): T86.821 - Skin graft (allograft) (autograft) failure (2) Wound of left ankle: CODE(S): S91.002A - Unspecified open wound, left ankle, initial encounter QUALIFIERS: Encounter type: initial encounter Qualified Code(s): S91.002A - Unspecified open wound, left ankle, initial encounter (3) Type 2 diabetes mellitus with hyperglycemia: CODE(S): E11.65 - Type 2 diabetes mellitus with hyperglycemia QUALIFIERS: Diabetes mellitus fdc insulin use: without fdc use Qualified Code(s): E11.65 - Type 2 diabetes mellitus with hyperglycemia PLAN: Plan The patient tolerated hyperbaric oxygen therapy well which will be continued per her medical plan.
[2024-07-08 11:39] VITALS: BP 130/88; BP 131/71; PULSE 67; PULSE 80; RESP 16; TEMP 36.1; TEMP 36.8
[2024-07-08 11:39] LABS: Bedside Glucose 118 mg/dL (74-106)
[2024-07-08 14:02] VITALS: BP 144/74; PULSE 70; RESP 16; TEMP 35.8; BMI 34.9
--- NOTE | 2024-07-08 17:00 | PCM.PN.SRG ---
Subjective Subjective Doing well. Tolerating HBO and three times per week VAC changes. Objective Data Objective Data Vital Signs: Vital Signs Temp Pulse Resp BP O2 Del Method 96.5 F L 70 16 144/74 H Room Air 07/08/24 14:02 07/08/24 14:02 07/08/24 14:02 07/08/24 14:02 07/08/24 14:02 Oxygen Delivery Method Room Air Weight: 230 lb Body Mass Index (BMI) 34.9 Lab / Micro Data Labs: Laboratory Results - last 24 hr 07/08/24 08:56: POC Glucose 165 H 07/08/24 11:15: POC Glucose 118 H Physical Exam Narrative Near 100%skin graft compromise/loss (would benefit from hyperbaric oxygen therapy). No signs of infection. No exposed tendon at this time. Wound is granulating wtter since hyperbaric oxygen started. Also is smaller at 6.5 cm by 1.5 cm Const alert and oriented x3 General Appearance: cooperative HEENT normocephalic HEENT Narrative: Tympanic membranes were not visualized, too much cerumen Neck full ROM Resp normal respiratory effort Auscultation: clear to auscultation bilaterally Cardio regular rate, regular rhythm, S1 normal heart sound, S2 normal heart sound, no murmurs, no rub, no gallops and no clicks Extremity Extremity Narrative: Left thigh donor site healing well, xeroform reapplied (XF was not stuck down on wound bed and didn't dry out). Assessment & Plan Assessment/Plan (1) Skin graft (allograft) (autograft) failure: PLAN: Plan for continued HBO therapy daily, 100% oxygen at 2 ALEYDA for 90 minutes without air breaks. Scheduled for 20 sessions (has completed 5 thus far). VAC changes three times per week F/u in the wound care center on Monday, 22 Jul 2024. Charges/Coding Procedures Integumentary [id number]: [id number] Global Visit
--- NOTE | 2024-07-09 08:38 | WC ---
PHOTO 07/08/24 LEFT ACHILLES POST OP
[2024-07-09 09:20] LABS: Bedside Glucose 144 mg/dL (74-106)
[2024-07-09 11:44] LABS: Bedside Glucose 168 mg/dL (74-106)
[2024-07-09 11:48] VITALS: BP 116/70; BP 130/85; PULSE 70; PULSE 76; RESP 18; TEMP 36.5; TEMP 36.6
--- NOTE | 2024-07-09 12:54 | HBO.PN.PCM_ITS ---
History of Present Illness Date of Service: 07/09/24 Chief Complaint: Surgical dehiscence with exposure of the Achilles tendon left lower extremity History of Wound: 58 y/o female with DM type II with peripheral polyneuropathy, peripheral vascular disease, asthma, morbid obesity, HTN, and hyperlipidemia presented to [facility] for continued care of surgical dehiscence of her posterior left lower extremity with exposure of the Achilles tendon. The patient underwent surgical intervention to correct calcaneal gait with plantar ulceration of the left heel on 01/26/2024. At that time of surgery she was found to have tendo Achilles tear to the left lower extremity resulting in a calcaneal gait. Tendon was debrided and a shortening of the tendo Achilles was performed in addition to FHL tendon transfer. 3 weeks later patient had fallen placing weight to the foot resulting in a tear and dehiscence of the surgical site with exposure of the Achilles tendon. She was returned to the OR for debridement on 02/22/2024 and wound VAC was applied over ulcerative area. She did have PICC line and completed 6 weeks of IV antibiotics during stay in the transitional care unit. She completed IV antibiotic 04/04/2024 PICC line was pulled and she was discharged from the transitional care unit to home. Surgery by Dr. Solano on 06/10/24 for Split-thickness skin grafting from the left lateral thigh to the left Achilles tendon ankle wound 7 x [address] Solano on 05/20/23 for Excision of left posterior ankle wound, including biofilm, subcutaneous tissue, fascia, and tendon, 7 x 3 cm and Irrigating wound VAC, vera flow, not disposable AND 05/22/24 - Excision of left posterior ankle wound, including biofilm, subcutaneous tissue, fascia, and tendon and Placement of dermal substitute (Integra) and wound VAC placed. Operative culture 05/15/24 positive for MSSA and Anaerobic cocci. She is still being treated with Doxy, cefdinir, Flagyl. Patient underwent multiple debridements and eventual skin grafting on 11 June 2024. She has developed compromise of her skin graft. Progress of Wound: Progress: Today represents her 6th hyperbaric oxygen therapy treatment. She has been scheduled for 20 sessions. Tolerance of hyperbaric oxygen therapy: Hyperbaric oxygen treatment was administered as the per the facility's protocol, 100% oxygen at 2 ALEYDA for 90 minutes without air breaks. The patient tolerated the hyperbaric oxygen therapy well, without complications or complaints. Upon emergence from the hyperbaric chamber, the patient's vital signs remained stable. Pre and post blood sugars as documented. Objective Data Objective Data Vital Signs: Vital Signs Temp Pulse Resp BP O2 Del Method 97.8 F 76 18 130/85 H Room Air 07/09/24 11:48 07/09/24 11:48 07/09/24 11:48 07/09/24 11:48 07/08/24 14:02 Oxygen Delivery Method Room Air Weight: 230 lb Body Mass Index (BMI) 34.9 Lab / Micro Data Labs: Laboratory Results - last 24 hr 07/09/24 09:02: POC Glucose 144 H 07/09/24 11:22: POC Glucose 168 H Exam Physical Exam Const alert, oriented x3 and no apparent distress General Appearance: cooperative HEENT normocephalic and TM's normal bilaterally Head and Scalp: atraumatic Eyes General Eye: normal appearance of both eyes Resp normal respiratory effort, no use of accessory muscles and clear to auscultation bilaterally Effort and Inspection: able to speak in complete sentences Cardio regular rate and regular rhythm Psych affect normal Nursing Assessment and Debridement Post-Debridement Measurements and Additional Note: Post-Debridement Measurements/Treatment - Nurse 1 - General Ulcer Assessment Start: 06/17/24 13:56 Freq: Status: Active Protocol: [email or web address].[email or web address] Activity Type Activity Date Activity User E-sign Co-sign Detail Recorded Client Recorded Date Recorded By Document 07/08/24 14:02 KW [id number] 07/08/24 14:15 07/08/24 14:02 - Today's Visit Information Type of service Follow-up Visit (Physician/[employer] ) Arrival Mode Ambulatory Patient Identification Verified (Name & Yes ) Height and Weight Body Mass Index (BMI) 34.9 BMI Classification Obese Vital Signs Temperature (97.8 F-99.1 F) 96.5 F L Temperature Source Temporal Pulse Rate (60-100) 70 Pulse Location Monitor Respiratory Rate (12-18) 16 Respiratory rate source Observation Oxygen Delivery Method Room Air Blood Pressure (90/60-120/80) 144/74 H Blood Pressure Mean (mm Hg) 97 Source Monitor Position Sitting Blood Pressure Location Right Arm History Since Last Visit- (Skip if this is Patient's initial visit) Have you changed medications since your No last visit? Any new allergies or adverse reactions No Had a fall/change in ADL's that may No increase risk of falls Signs or symptoms of abuse and/or No neglect since last visit Have you been in the hospital since your No last visit? Has dressing in place as prescribed Yes Has compression in place as prescribed N/A Has offloadiing in place as prescribed N/A Experienced any changes in pain level or No management Left Footwear Removable Cast Walker/Walking Boot Right Footwear Regular Shoe Pain Scale: 0-10 Numeric Is Patient Pain Free? No L posterior ankle -Description Sharp,Aching -Intensity 6 -Alleviating Factors/Interventions Medication, Inactivity/ Resting WC - Nurse 1 - General Ulcer Measurement Start: 06/17/24 13:56 Freq: Status: Active Protocol: Activity Type Activity Date Activity User E-sign Co-sign Detail Recorded Client Recorded Date Recorded By Document 07/08/24 14:02 DOMO [id number] 07/08/24 14:15 DOMO 07/08/24 14:02 Wound Center Nurse 1 5. L post ankle/ Achilles repair post-op -Current Size (cm) - Length 7 -Current Size (cm) - Width 1.7 -Current Size (cm) - Depth 0.2 -Total Square Cm 11.9 -Date of Last Picture (Recall this 07/08/24 field) -Exudate Amt Medium -Exudate Type Serosanguineous -Wound Margin Distinct, Outline Attached -Granulation Amt Large (67-100%) -Granulation Quality Red -Necrosis Amt Small (1-33%) -Necrotic Tissue Type Adherent Slough -Texture (Yanely-wound Skin Appearance) Assessed -Moisture (Yanely-wound Skin Appearance) Assessed -Color (Yanely-wound Skin Appearance) Assessed -Temperature (Yanely-wound Skin No Abnormality Appearance) (Pt Warm) -Tenderness on Palpation (Yanely-wound No Skin Appearance) -Ulcer Cleansing Soap and Water -Foul Odor after Cleansing No -Anesthetic Used 5% Lidocaine Gel WC - Nurse 2 - General Ulcer CM Notes Start: 06/17/24 13:56 Freq: Status: Active Protocol: Activity Type Activity Date Activity User E-sign Co-sign Detail Recorded Client Recorded Date Recorded By Document 07/08/24 14:27 GONZALO [id number] 07/08/24 14:28 GONZALO 07/08/24 14:27 Wound Center Nurse 2 -Correct Patient No -Correct Side, Site, Position No -Correct Procedure No -Procedure Performed No -Post Debridement (cm) - Length 6.5 -Post Debridement (cm) - Width 1.5 -Post Debridement (cm) - Depth 0.1 -Total Square (Post) (cm) 9.75 -Area of Debridement (cm) - Length 6.5 -Area of Debridement (cm) - Width 1.5 -Total Square (Area) (cm) 9.75 -Wound/Ulcer Outcome Not Healed Pain Scale: 0-10 Numeric Is Patient Pain Free? Yes - Nurse 3 - General Ulcer D/C NN Start: 06/17/24 13:56 Freq: Status: Active Protocol: Activity Type Activity Date Activity User E-sign Co-sign Detail Recorded Client Recorded Date Recorded By Document 07/08/24 14:52 [facility] [id number] 07/08/24 14:52 [facility] 07/08/24 14:52 Wound Care Center Nurse 3 5. L post ankle/ Achilles repair post-op -Ulcer Cleansing Rinsed/ Irrigated with Saline -Foul Odor after Cleansing No -Negative Pressure Wound Therapy Continue -Setting (mmHg) 125 -Negative Pressure is Continuous -NPWT Application Charge NPWT & Debridement (nc ) Treatment Response Procedure Tolerated Well Pain Scale: 0-10 Numeric Is Patient Pain Free? Yes - Visit Discharge Discharge Condition Stable Ambulatory Status Ambulatory Transportation Private Auto Charges/Coding Wound Center CF Procedures HBO Supervision: [id number] Hyperbaric Oxygen; supervision Assessment/Plan Assessment/Plan (1) Skin graft (allograft) (autograft) failure: CODE(S): T86.821 - Skin graft (allograft) (autograft) failure (2) Wound of left ankle: CODE(S): S91.002A - Unspecified open wound, left ankle, initial encounter QUALIFIERS: Encounter type: initial encounter Qualified Code(s): S91.002A - Unspecified open wound, left ankle, initial encounter (3) Type 2 diabetes mellitus with hyperglycemia: CODE(S): E11.65 - Type 2 diabetes mellitus with hyperglycemia QUALIFIERS: Diabetes mellitus rat exterminator insulin use: without rat exterminator use Qualified Code(s): E11.65 - Type 2 diabetes mellitus with hyperglycemia PLAN: Plan The patient tolerated hyperbaric oxygen therapy well which will be continued per her medical plan.
[2024-07-10 09:19] LABS: Bedside Glucose 169 mg/dL (74-106)
[2024-07-10 11:36] VITALS: BP 125/76; BP 91/52; PULSE 76; PULSE 83; RESP 18; TEMP 36.3
[2024-07-10 11:47] LABS: Bedside Glucose 148 mg/dL (74-106)
--- NOTE | 2024-07-10 12:12 | HBO.PN.PCM_ITS ---
History of Present Illness Date of Service: 07/10/24 Chief Complaint: Surgical dehiscence with exposure of the Achilles tendon left lower extremity History of Wound: 58 y/o female with DM type II with peripheral polyneuropathy, peripheral vascular disease, asthma, morbid obesity, HTN, and hyperlipidemia presented to the [facility] Center for continued care of surgical dehiscence of her posterior left lower extremity with exposure of the Achilles tendon. The patient underwent surgical intervention to correct calcaneal gait with plantar ulceration of the left heel on 01/26/2024. At that time of surgery she was found to have tendo Achilles tear to the left lower extremity resulting in a calcaneal gait. Tendon was debrided and a shortening of the tendo Achilles was performed in addition to FHL tendon transfer. 3 weeks later patient had fallen placing weight to the foot resulting in a tear and dehiscence of the surgical site with exposure of the Achilles tendon. She was returned to the OR for debridement on 02/22/2024 and wound VAC was applied over ulcerative area. She did have PICC line and completed 6 weeks of IV antibiotics during stay in the transitional care unit. She completed IV antibiotic 04/04/2024 PICC line was pulled and she was discharged from the transitional care unit to home. Surgery by Dr. Solano on 06/10/24 for Split-thickness skin grafting from the left lateral thigh to the left Achilles tendon ankle wound 7 x [address] Solano on 05/20/23 for Excision of left posterior ankle wound, including biofilm, subcutaneous tissue, fascia, and tendon, 7 x 3 cm and Irrigating wound VAC, vera flow, not disposable AND 05/22/24 - Excision of left posterior ankle wound, including biofilm, subcutaneous tissue, fascia, and tendon and Placement of dermal substitute (Integra) and wound VAC placed. Operative culture 05/15/24 positive for MSSA and Anaerobic cocci. She is still being treated with Doxy, cefdinir, Flagyl. Patient underwent multiple debridements and eventual skin grafting on 11 June 2024. She has developed compromise of her skin graft. Progress of Wound: Progress: Today represents her 7th hyperbaric oxygen therapy treatment. She has been scheduled for 20 sessions. Tolerance of hyperbaric oxygen therapy: Hyperbaric oxygen treatment was administered as the per the facility's protocol, 100% oxygen at 2 ALEYDA for 90 minutes without air breaks. The patient tolerated the hyperbaric oxygen therapy well, without complications or complaints. Upon emergence from the hyperbaric chamber, the patient's vital signs remained stable. Pre and post blood sugars as documented. Subjective Subjective Vital signs were stable on entrance and discharge her blood pressure was a little low but she was feeling okay. Objective Data Objective Data Tolerating HBO treatments well we will continue with the ALEYDA 2.0 as ordered Vital Signs: Vital Signs Temp Pulse Resp BP O2 Del Method 97.3 F L 83 18 125/76 H Room Air 07/10/24 11:36 07/10/24 11:36 07/10/24 11:36 07/10/24 11:36 07/08/24 14:02 Oxygen Delivery Method Room Air Weight: 230 lb Body Mass Index (BMI) 34.9 Lab / Micro Data Labs: Laboratory Results - last 24 hr 07/10/24 09:01: POC Glucose 169 H 07/10/24 11:21: POC Glucose 148 H Exam Physical Exam Const alert, oriented x3 and no apparent distress General Appearance: cooperative HEENT normocephalic and TM's normal bilaterally Head and Scalp: atraumatic Eyes General Eye: normal appearance of both eyes Resp normal respiratory effort, no use of accessory muscles and clear to auscultation bilaterally Effort and Inspection: able to speak in complete sentences Cardio regular rate and regular rhythm Psych affect normal Nursing Assessment and Debridement Post-Debridement Measurements and Additional Note: Post-Debridement Measurements/Treatment - Nurse 1 - General Ulcer Assessment Start: 06/17/24 13:56 Freq: Status: Active Protocol: WC.LOWJOSELUIS Activity Type Activity Date Activity User E-sign Co-sign Detail Recorded Client Recorded Date Recorded By Document 07/08/24 14:02 [id number] 07/08/24 14:15 07/08/24 14:02 - Today's Visit Information Type of service Follow-up Visit (Physician/RACKET [employer]INGER ) Arrival Mode Ambulatory Patient Identification Verified (Name & Yes ) Height and Weight Body Mass Index (BMI) 34.9 BMI Classification Obese Vital Signs Temperature (97.8 F-99.1 F) 96.5 F L Temperature Source Temporal Pulse Rate (60-100) 70 Pulse Location Monitor Respiratory Rate (12-18) 16 Respiratory rate source Observation Oxygen Delivery Method Room Air Blood Pressure (90/60-120/80) 144/74 H Blood Pressure Mean (mm Hg) 97 Source Monitor Position Sitting Blood Pressure Location Right Arm History Since Last Visit- (Skip if this is Patient's initial visit) Have you changed medications since your No last visit? Any new allergies or adverse reactions No Had a fall/change in ADL's that may No increase risk of falls Signs or symptoms of abuse and/or No neglect since last visit Have you been in the hospital since your No last visit? Has dressing in place as prescribed Yes Has compression in place as prescribed N/A Has offloadiing in place as prescribed N/A Experienced any changes in pain level or No management Left Footwear Removable Cast Walker/Walking Boot Right Footwear Regular Shoe Pain Scale: 0-10 Numeric Is Patient Pain Free? No L posterior ankle -Description Sharp,Aching -Intensity 6 -Alleviating Factors/Interventions Medication, Inactivity/ Resting WC - Nurse 1 - General Ulcer Measurement Start: 06/17/24 13:56 Freq: Status: Active Protocol: Activity Type Activity Date Activity User E-sign Co-sign Detail Recorded Client Recorded Date Recorded By Document 07/08/24 14:02 KW [id number] 07/08/24 14:15 KW 07/08/24 14:02 Wound Center Nurse 1 5. L post ankle/ Achilles repair post-op -Current Size (cm) - Length 7 -Current Size (cm) - Width 1.7 -Current Size (cm) - Depth 0.2 -Total Square Cm 11.9 -Date of Last Picture (Recall this 07/08/24 field) -Exudate Amt Medium -Exudate Type Serosanguineous -Wound Margin Distinct, Outline Attached -Granulation Amt Large (67-100%) -Granulation Quality Red -Necrosis Amt Small (1-33%) -Necrotic Tissue Type Adherent Slough -Texture (Yanely-wound Skin Appearance) Assessed -Moisture (Yanely-wound Skin Appearance) Assessed -Color (Yanely-wound Skin Appearance) Assessed -Temperature (Yanely-wound Skin No Abnormality Appearance) (Pt Warm) -Tenderness on Palpation (Yanely-wound No Skin Appearance) -Ulcer Cleansing Soap and Water -Foul Odor after Cleansing No -Anesthetic Used 5% Lidocaine Gel WC - Nurse 2 - General Ulcer CM Notes Start: 06/17/24 13:56 Freq: Status: Active Protocol: Activity Type Activity Date Activity User E-sign Co-sign Detail Recorded Client Recorded Date Recorded By Document 07/08/24 14:27 [id number] 07/08/24 14:28 07/08/24 14:27 Wound Center Nurse 2 -Correct Patient No -Correct Side, Site, Position No -Correct Procedure No -Procedure Performed No -Post Debridement (cm) - Length 6.5 -Post Debridement (cm) - Width 1.5 -Post Debridement (cm) - Depth 0.1 -Total Square (Post) (cm) 9.75 -Area of Debridement (cm) - Length 6.5 -Area of Debridement (cm) - Width 1.5 -Total Square (Area) (cm) 9.75 -Wound/Ulcer Outcome Not Healed Pain Scale: 0-10 Numeric Is Patient Pain Free? Yes - Nurse 3 - General Ulcer D/C NN Start: 06/17/24 13:56 Freq: Status: Active Protocol: Activity Type Activity Date Activity User E-sign Co-sign Detail Recorded Client Recorded Date Recorded By Document 07/08/24 14:52 [facility] [id number] 07/08/24 14:52 [facility] 07/08/24 14:52 Wound Care Center Nurse 3 5. L post ankle/ Achilles repair post-op -Ulcer Cleansing Rinsed/ Irrigated with Saline -Foul Odor after Cleansing No -Negative Pressure Wound Therapy Continue -Setting (mmHg) 125 -Negative Pressure is Continuous -NPWT Application Charge NPWT & Debridement (nc ) Treatment Response Procedure Tolerated Well Pain Scale: 0-10 Numeric Is Patient Pain Free? Yes - Visit Discharge Discharge Condition Stable Ambulatory Status Ambulatory Transportation Private Auto Assessment/Plan Assessment/Plan (1) Skin graft (allograft) (autograft) failure: CODE(S): T86.821 - Skin graft (allograft) (autograft) failure (2) Wound of left ankle: CODE(S): S91.002A - Unspecified open wound, left ankle, initial encounter QUALIFIERS: Encounter type: initial encounter Qualified Code(s): S91.002A - Unspecified open wound, left ankle, initial encounter (3) Type 2 diabetes mellitus with hyperglycemia: CODE(S): E11.65 - Type 2 diabetes mellitus with hyperglycemia QUALIFIERS: Diabetes mellitus terminal gauger insulin use: without terminal gauger use Qualified Code(s): E11.65 - Type 2 diabetes mellitus with hyperglycemia PLAN: Plan The patient tolerated hyperbaric oxygen therapy well which will be continued per her medical plan.
== END 2024-07-11 23:59 | disposition home or self-care (01) ==
LOC: WC 10:00
PROVIDERS: PCP Family Medicine Geriatric Medicine; Referring Provider Surgery Plastic and Reconstructive Surgery; Visit Provider Surgery Plastic and Reconstructive Surgery
DX: T86.821 Skin graft (allograft) (autograft) failure (principal); E66.01 Morbid (severe) obesity due to excess calories; Z79.4 Long term (current) use of insulin; E11.51 Type 2 diabetes mellitus with diabetic peripheral angiopathy without gangrene; E11.42 Type 2 diabetes mellitus with diabetic polyneuropathy; E11.65 Type 2 diabetes mellitus with hyperglycemia; Z79.84 Long term (current) use of oral hypoglycemic drugs; E78.5 Hyperlipidemia, unspecified; Z79.85 Long-term (current) use of injectable non-insulin antidiabetic drugs; Z79.01 Long term (current) use of anticoagulants; I10 Essential (primary) hypertension; Y83.2 Surgical operation with anastomosis, bypass or graft as the cause of abnormal reaction of the patient, or of later complication, without mention of misadventure at the time of the procedure; J45.909 Unspecified asthma, uncomplicated; Z79.899 Other long term (current) drug therapy; F17.290 Nicotine dependence, other tobacco product, uncomplicated; S91.002A Unspecified open wound, left ankle, initial encounter; X58.XXXA Exposure to other specified factors, initial encounter
CPT/HCPCS: 71046; 82962; 93005; 97605; 99183; 99213; 99214; G0277; G0463

== ENCOUNTER 2024-08-02 10:30 | Outpatient (RCR) | payer MEDICARE, MEDICAID, SELFPAY ==
[2024-07-12 00:24] VITALS: BP 125/76; BP 128/66; BP 91/52; BMI 34.9
[2024-07-12 00:25] VITALS: PULSE 76; PULSE 79; PULSE 83; RESP 18; TEMP 36.2; TEMP 36.3
[2024-07-15 12:03] LABS: Bedside Glucose 145 mg/dL (74-106)
--- NOTE | 2024-07-15 12:25 | PCM.HBO.PN ---
History of Present Illness Date of Service: 07/15/24 Chief Complaint: Surgical dehiscence with exposure of the Achilles tendon left lower extremity History of Wound: 58 y/o female with DM type II with peripheral polyneuropathy, peripheral vascular disease, asthma, morbid obesity, HTN, and hyperlipidemia presented to the Wound Center for continued care of surgical dehiscence of her posterior left lower extremity with exposure of the Achilles tendon. The patient underwent surgical intervention to correct calcaneal gait with plantar ulceration of the left heel on 01/26/2024. At that time of surgery she was found to have tendo Achilles tear to the left lower extremity resulting in a calcaneal gait. Tendon was debrided and a shortening of the tendo Achilles was performed in addition to FHL tendon transfer. 3 weeks later patient had fallen placing weight to the foot resulting in a tear and dehiscence of the surgical site with exposure of the Achilles tendon. She was returned to the OR for debridement on 02/22/2024 and wound VAC was applied over ulcerative area. She did have PICC line and completed 6 weeks of IV antibiotics during stay in the transitional care unit. She completed IV antibiotic 04/04/2024 PICC line was pulled and she was discharged from the transitional care unit to home. Surgery by Dr. Solano on 06/10/24 for Split-thickness skin grafting from the left lateral thigh to the left Achilles tendon ankle wound 7 x [address] Solano on 05/20/23 for Excision of left posterior ankle wound, including biofilm, subcutaneous tissue, fascia, and tendon, 7 x 3 cm and Irrigating wound VAC, vera flow, not disposable AND 05/22/24 - Excision of left posterior ankle wound, including biofilm, subcutaneous tissue, fascia, and tendon and Placement of dermal substitute (Integra) and wound VAC placed. Operative culture 05/15/24 positive for MSSA and Anaerobic cocci. She is still being treated with Doxy, cefdinir, Flagyl. Patient underwent multiple debridements and eventual skin grafting on 11 June 2024. She has developed compromise of her skin graft. Progress of Wound: Progress: Today represents her 8th hyperbaric oxygen therapy treatment. She has been scheduled for 20 sessions. Tolerance of hyperbaric oxygen therapy: Hyperbaric oxygen treatment was administered as the per the facility's protocol, 100% oxygen at 2 ALEYDA for 90 minutes without air breaks. The patient tolerated the hyperbaric oxygen therapy well, without complications or complaints. Upon emergence from the hyperbaric chamber, the patient's vital signs remained stable. Pre and post blood sugars as documented. Objective Data Objective Data Vital Signs: Vital Signs Temp Pulse Resp BP 97.3 F L 83 18 125/76 H 07/12/24 00:25 07/12/24 00:25 07/12/24 00:25 07/12/24 00:24 Weight: 230 lb Body Mass Index (BMI) 34.9 Lab / Micro Data Labs: Laboratory Results - last 24 hr 07/15/24 11:46: POC Glucose 145 H Exam Physical Exam Const alert, oriented x3 and no apparent distress General Appearance: cooperative HEENT normocephalic and TM's normal bilaterally Head and Scalp: atraumatic Eyes General Eye: normal appearance of both eyes Resp normal respiratory effort, no use of accessory muscles and clear to auscultation bilaterally Effort and Inspection: able to speak in complete sentences Cardio regular rate and regular rhythm Psych affect normal Charges/Coding Wound Center CF Procedures HBO Supervision: [id number] Hyperbaric Oxygen; supervision Assessment/Plan Assessment/Plan (1) Skin graft (allograft) (autograft) failure: CODE(S): T86.821 - Skin graft (allograft) (autograft) failure (2) Wound of left ankle: CODE(S): S91.002A - Unspecified open wound, left ankle, initial encounter QUALIFIERS: Encounter type: initial encounter Qualified Code(s): S91.002A - Unspecified open wound, left ankle, initial encounter (3) Type 2 diabetes mellitus with hyperglycemia: CODE(S): E11.65 - Type 2 diabetes mellitus with hyperglycemia QUALIFIERS: Diabetes mellitus skilled nursing insulin use: without skilled nursing use Qualified Code(s): E11.65 - Type 2 diabetes mellitus with hyperglycemia PLAN: Plan The patient tolerated hyperbaric oxygen therapy well which will be continued per her medical plan.
[2024-07-15 14:12] VITALS: BP 115/63; BP 152/74; PULSE 73; PULSE 78; RESP 18; TEMP 36.2; TEMP 36.6
[2024-07-15 14:20] LABS: Bedside Glucose 154 mg/dL (74-106)
[2024-07-16 11:13] LABS: Bedside Glucose 145 mg/dL (74-106)
[2024-07-16 13:21] VITALS: BP 119/81; BP 139/71; PULSE 65; PULSE 69; RESP 17; RESP 18; TEMP 36.3; TEMP 36.6
--- NOTE | 2024-07-16 13:27 | PCM.HBO.PN ---
History of Present Illness Date of Service: 07/16/24 Chief Complaint: Surgical dehiscence with exposure of the Achilles tendon left lower extremity History of Wound: 58 y/o female with DM type II with peripheral polyneuropathy, peripheral vascular disease, asthma, morbid obesity, HTN, and hyperlipidemia presented [facility] for continued care of surgical dehiscence of her posterior left lower extremity with exposure of the Achilles tendon. The patient underwent surgical intervention to correct calcaneal gait with plantar ulceration of the left heel on 01/26/2024. At that time of surgery she was found to have tendo Achilles tear to the left lower extremity resulting in a calcaneal gait. Tendon was debrided and a shortening of the tendo Achilles was performed in addition to FHL tendon transfer. 3 weeks later patient had fallen placing weight to the foot resulting in a tear and dehiscence of the surgical site with exposure of the Achilles tendon. She was returned to the OR for debridement on 02/22/2024 and wound VAC was applied over ulcerative area. She did have PICC line and completed 6 weeks of IV antibiotics during stay in the transitional care unit. She completed IV antibiotic 04/04/2024 PICC line was pulled and she was discharged from the transitional care unit to home. Surgery by Dr. Solano on 06/10/24 for Split-thickness skin grafting from the left lateral thigh to the left Achilles tendon ankle wound 7 x [address] Solano on 05/20/23 for Excision of left posterior ankle wound, including biofilm, subcutaneous tissue, fascia, and tendon, 7 x 3 cm and Irrigating wound VAC, vera flow, not disposable AND 05/22/24 - Excision of left posterior ankle wound, including biofilm, subcutaneous tissue, fascia, and tendon and Placement of dermal substitute (Integra) and wound VAC placed. Operative culture 05/15/24 positive for MSSA and Anaerobic cocci. She is still being treated with Doxy, cefdinir, Flagyl. Patient underwent multiple debridements and eventual skin grafting on 11 June 2024. She has developed compromise of her skin graft. Progress of Wound: Progress: Today represents her hyperbaric oxygen therapy treatment. She has been scheduled for 20 sessions. Tolerance of hyperbaric oxygen therapy: Hyperbaric oxygen treatment was administered as the per the facility's protocol, 100% oxygen at 2 ALEYDA for 90 minutes without air breaks. The patient tolerated the hyperbaric oxygen therapy well, without complications or complaints. Upon emergence from the hyperbaric chamber, the patient's vital signs remained stable. Pre and post blood sugars as documented. Objective Data Objective Data Vital Signs: Vital Signs Temp Pulse Resp BP 97.9 F 69 18 139/71 H 07/16/24 13:21 07/16/24 13:21 07/16/24 13:21 07/16/24 13:21 Weight: 230 lb Body Mass Index (BMI) 34.9 Lab / Micro Data Labs: Laboratory Results - last 24 hr 07/15/24 13:56: POC Glucose 154 H 07/16/24 10:55: POC Glucose 145 H Exam Physical Exam Const alert, oriented x3 and no apparent distress General Appearance: cooperative HEENT normocephalic and TM's normal bilaterally Head and Scalp: atraumatic Eyes General Eye: normal appearance of both eyes Resp normal respiratory effort, no use of accessory muscles and clear to auscultation bilaterally Effort and Inspection: able to speak in complete sentences Cardio regular rate and regular rhythm Psych affect normal Charges/Coding [facility] CF Procedures HBO Supervision: 06000 Hyperbaric Oxygen; supervision Assessment/Plan Assessment/Plan (1) Skin graft (allograft) (autograft) failure: CODE(S): T86.821 - Skin graft (allograft) (autograft) failure (2) Wound of left ankle: CODE(S): S91.002A - Unspecified open wound, left ankle, initial encounter QUALIFIERS: Encounter type: initial encounter Qualified Code(s): S91.002A - Unspecified open wound, left ankle, initial encounter (3) Type 2 diabetes mellitus with hyperglycemia: CODE(S): E11.65 - Type 2 diabetes mellitus with hyperglycemia QUALIFIERS: Diabetes mellitus assistant terminal manager insulin use: without custodial use Qualified Code(s): E11.65 - Type 2 diabetes mellitus with hyperglycemia PLAN: Plan The patient tolerated hyperbaric oxygen therapy well which will be continued per her medical plan.
[2024-07-16 13:33] LABS: Bedside Glucose 155 mg/dL (74-106)
[2024-07-17 11:49] LABS: Bedside Glucose 173 mg/dL (74-106)
[2024-07-17 14:00] VITALS: BP 133/70; BP 137/62; PULSE 63; PULSE 73; RESP 18; TEMP 36.1; TEMP 36.3
[2024-07-17 14:07] LABS: Bedside Glucose 162 mg/dL (74-106)
--- NOTE | 2024-07-17 14:43 | HBO.PN.PCM_ITS ---
History of Present Illness Date of Service: 07/17/24 Chief Complaint: Surgical dehiscence with exposure of the Achilles tendon left lower extremity; Allograft failure History of Wound: 58 y/o female with DM type II with peripheral polyneuropathy, peripheral vascular disease, asthma, morbid obesity, HTN, and hyperlipidemia presented to the [facility] for continued care of surgical dehiscence of her posterior left lower extremity with exposure of the Achilles tendon. The patient underwent surgical intervention to correct calcaneal gait with plantar ulceration of the left heel on 01/26/2024. At that time of surgery she was found to have tendo Achilles tear to the left lower extremity resulting in a calcaneal gait. Tendon was debrided and a shortening of the tendo Achilles was performed in addition to FHL tendon transfer. 3 weeks later patient had fallen placing weight to the foot resulting in a tear and dehiscence of the surgical site with exposure of the Achilles tendon. She was returned to the OR for debridement on 02/22/2024 and wound VAC was applied over ulcerative area. She did have PICC line and completed 6 weeks of IV antibiotics during stay in the transitional care unit. She completed IV antibiotic 04/04/2024 PICC line was pulled and she was discharged from the transitional care unit to home. Surgery by Dr. Solano on 06/10/24 for Split-thickness skin grafting from the left lateral thigh to the left Achilles tendon ankle wound 7 x [address] Solano on 05/20/23 for Excision of left posterior ankle wound, including biofilm, subcutaneous tissue, fascia, and tendon, 7 x 3 cm and Irrigating wound VAC, vera flow, not disposable AND 05/22/24 - Excision of left posterior ankle wound, including biofilm, subcutaneous tissue, fascia, and tendon and Placement of dermal substitute (Integra) and wound VAC placed. Operative culture 05/15/24 positive for MSSA and Anaerobic cocci. Treated with Doxy, cefdinir, and Flagyl. Patient underwent multiple debridements and eventual skin grafting on 11 June 2024. She has developed compromise of her skin graft. Progress of Wound: Progress: Today represents her 10th hyperbaric oxygen therapy treatment. She has been scheduled for 20 sessions. Tolerance of hyperbaric oxygen therapy: Hyperbaric oxygen treatment was administered as the per the facility's protocol, 100% oxygen at 2 ALEYDA for 90 minutes without air breaks. The patient tolerated the hyperbaric oxygen therapy well, without complications or complaints. Upon emergence from the hyperbaric chamber, the patient's vital signs remained stable. Pre and post blood sugars as documented. Pre- 173 Post- 167 Objective Data Objective Data Vital Signs: Vital Signs Temp Pulse Resp BP 96.9 F L 73 18 137/62 H 07/17/24 14:00 07/17/24 14:00 07/17/24 14:00 07/17/24 14:00 Weight: 230 lb Body Mass Index (BMI) 34.9 Lab / Micro Data Labs: Laboratory Results - last 24 hr 07/17/24 11:30: POC Glucose 173 H 07/17/24 13:43: POC Glucose 162 H Exam Physical Exam Const alert, oriented x3 and no apparent distress General Appearance: cooperative and well developed HEENT normocephalic and TM's normal bilaterally Head and Scalp: atraumatic Eyes EOMs intact bilaterally General Eye: normal appearance of both eyes Resp normal respiratory effort, no use of accessory muscles and clear to auscultation bilaterally Effort and Inspection: able to speak in complete sentences Cardio regular rate and regular rhythm Psych affect normal Speech: normal speech Nursing Assessment and Debridement Post-Debridement Measurements and Additional Note: Post-Debridement Measurements/Treatment WC - Nurse 3 - General Ulcer D/C NN Start: 07/15/24 14:12 Freq: Status: Active Protocol: Activity Type Activity Date Activity User E-sign Co-sign Detail Recorded Client Recorded Date Recorded By Document 07/16/24 14:00 GONZALO [id number] 07/16/24 14:02 GONZALO 07/16/24 14:00 [facility] Nurse 3 5. L post ankle/ Achilles repair post-op -Ulcer Cleansing Soap and Water -Negative Pressure Wound Therapy Continue -Setting (mmHg) 125 -Negative Pressure is Continuous -NPWT Application Charge NPWT </= 50 sq cm ($) left leg -Compression Wrap Mustapha Wrap Pain Scale: 0-10 Numeric Is Patient Pain Free? Yes WC - Visit Discharge Discharge Condition Stable Ambulatory Status Ambulatory,Cane Transportation Private Auto Medication Reconcilliation completed & Yes provided to patient/care provider Clinical Summary of Care Provided Yes Charges/Coding Wound Center CF Procedures HBO Supervision: [id number] Hyperbaric Oxygen; supervision Assessment/Plan Assessment/Plan (1) Skin graft (allograft) (autograft) failure: CODE(S): T86.821 - Skin graft (allograft) (autograft) failure (2) Wound of left ankle: CODE(S): S91.002A - Unspecified open wound, left ankle, initial encounter QUALIFIERS: Encounter type: subsequent encounter Qualified Code(s): S91.002D - Unspecified open wound, left ankle, subsequent encounter (3) Type 2 diabetes mellitus with hyperglycemia: CODE(S): E11.65 - Type 2 diabetes mellitus with hyperglycemia QUALIFIERS: Diabetes mellitus senior care insulin use: without intermediate project manager use Qualified Code(s): E11.65 - Type 2 diabetes mellitus with hyperglycemia PLAN: Plan The patient tolerated hyperbaric oxygen therapy well, which will be continued per her medical plan.
[2024-07-18 10:56] LABS: Bedside Glucose 153 mg/dL (74-106)
--- NOTE | 2024-07-18 12:19 | HBO.PN.PCM_ITS ---
History of Present Illness Date of Service: 07/18/24 Chief Complaint: Surgical dehiscence with exposure of the Achilles tendon left lower extremity; Allograft failure History of Wound: 58 y/o female with DM type II with peripheral polyneuropathy, peripheral vascular disease, asthma, morbid obesity, HTN, and hyperlipidemia presented to the [facility] for continued care of surgical dehiscence of her posterior left lower extremity with exposure of the Achilles tendon. The patient underwent surgical intervention to correct calcaneal gait with plantar ulceration of the left heel on 01/26/2024. At that time of surgery she was found to have tendo Achilles tear to the left lower extremity resulting in a calcaneal gait. Tendon was debrided and a shortening of the tendo Achilles was performed in addition to FHL tendon transfer. 3 weeks later patient had fallen placing weight to the foot resulting in a tear and dehiscence of the surgical site with exposure of the Achilles tendon. She was returned to the OR for debridement on 02/22/2024 and wound VAC was applied over ulcerative area. She did have PICC line and completed 6 weeks of IV antibiotics during stay in the transitional care unit. She completed IV antibiotic 04/04/2024 PICC line was pulled and she was discharged from the transitional care unit to home. Surgery by Dr. Solano on 06/10/24 for Split-thickness skin grafting from the left lateral thigh to the left Achilles tendon ankle wound 7 x [address] Solano on 05/20/23 for Excision of left posterior ankle wound, including biofilm, subcutaneous tissue, fascia, and tendon, 7 x 3 cm and Irrigating wound VAC, vera flow, not disposable AND 05/22/24 - Excision of left posterior ankle wound, including biofilm, subcutaneous tissue, fascia, and tendon and Placement of dermal substitute (Integra) and wound VAC placed. Operative culture 05/15/24 positive for MSSA and Anaerobic cocci. Treated with Doxy, cefdinir, and Flagyl. Patient underwent multiple debridements and eventual skin grafting on 11 June 2024. She has developed compromise of her skin graft. Progress of Wound: Progress: Today represents her th hyperbaric oxygen therapy treatment. She has been scheduled for 20 sessions. Tolerance of hyperbaric oxygen therapy: Hyperbaric oxygen treatment was administered as the per the facility's protocol, 100% oxygen at 2 ALEYDA for 90 minutes without air breaks. The patient tolerated the hyperbaric oxygen therapy well, without complications or complaints. Upon emergence from the hyperbaric chamber, the patient's vital signs remained stable. Pre and post blood sugars as documented. Objective Data Objective Data Vital Signs: Vital Signs Temp Pulse Resp BP 96.9 F L 73 18 137/62 H 07/17/24 14:00 07/17/24 14:00 07/17/24 14:00 07/17/24 14:00 Weight: 230 lb Body Mass Index (BMI) 34.9 Lab / Micro Data Labs: Laboratory Results - last 24 hr 07/17/24 13:43: POC Glucose 162 H 07/18/24 10:37: POC Glucose 153 H Exam Physical Exam Const alert, oriented x3 and no apparent distress General Appearance: cooperative, comfortable and well kempt HEENT normocephalic, head/scalp atraumatic and hearing grossly normal bilaterally Tympanic Membrane: TM's normal bilaterally Eyes EOMs intact bilaterally Neck full ROM and supple General: normal visual inspection Resp normal respiratory effort Effort and Inspection: able to speak in complete sentences Neuro oriented x3, CN's II-XII intact bilaterally and moves all extremities Psych mental status grossly normal, thought process normal, cooperative and affect normal Nursing Assessment and Debridement Post-Debridement Measurements and Additional Note: Post-Debridement Measurements/Treatment WC - Nurse 3 - General Ulcer D/C NN Start: 07/15/24 14:12 Freq: Status: Active Protocol: Activity Type Activity Date Activity User E-sign Co-sign Detail Recorded Client Recorded Date Recorded By Document 07/16/24 14:00 GONZALO [id number] 07/16/24 14:02 07/16/24 14:00 [facility] Nurse 3 5. L post ankle/ Achilles repair post-op -Ulcer Cleansing Soap and Water -Negative Pressure Wound Therapy Continue -Setting (mmHg) 125 -Negative Pressure is Continuous -NPWT Application Charge NPWT </= 50 sq cm ($) left leg -Compression Wrap Mustapha Wrap Pain Scale: 0-10 Numeric Is Patient Pain Free? Yes WC - Visit Discharge Discharge Condition Stable Ambulatory Status Ambulatory,Cane Transportation Private Auto Medication Reconcilliation completed & Yes provided to patient/care provider Clinical Summary of Care Provided Yes Charges/Coding Wound Center CF Procedures HBO Supervision: [id number] Hyperbaric Oxygen; supervision Assessment/Plan Assessment/Plan (1) Skin graft (allograft) (autograft) failure: CODE(S): T86.821 - Skin graft (allograft) (autograft) failure (2) Wound of left ankle: CODE(S): S91.002A - Unspecified open wound, left ankle, initial encounter QUALIFIERS: Encounter type: subsequent encounter Qualified Code(s): S91.002D - Unspecified open wound, left ankle, subsequent encounter (3) Type 2 diabetes mellitus with hyperglycemia: CODE(S): E11.65 - Type 2 diabetes mellitus with hyperglycemia QUALIFIERS: Diabetes mellitus intermediate manager insulin use: without intermediate manager use Qualified Code(s): E11.65 - Type 2 diabetes mellitus with hyperglycemia PLAN: Plan The patient tolerated hyperbaric oxygen therapy well, which will be continued as per her medical plan. This note was generated with [employer] software. It may contain incorrect words, spelling, and punctuation that were not noted in checking the note before signing.
[2024-07-18 13:14] LABS: Bedside Glucose 148 mg/dL (74-106)
[2024-07-18 13:56] VITALS: BP 111/64; BP 149/86; PULSE 73; PULSE 85; RESP 16; RESP 18; TEMP 36.6
[2024-07-19 10:49] LABS: Bedside Glucose 141 mg/dL (74-106)
[2024-07-19 13:00] LABS: Bedside Glucose 172 mg/dL (74-106)
--- NOTE | 2024-07-19 13:23 | PCM.HBO.PN ---
History of Present Illness Date of Service: 07/19/24 Chief Complaint: Surgical dehiscence with exposure of the Achilles tendon left lower extremity; Allograft failure History of Wound: 58 y/o female with DM type II with peripheral polyneuropathy, peripheral vascular disease, asthma, morbid obesity, HTN, and hyperlipidemia presented to the [facility] for continued care of surgical dehiscence of her posterior left lower extremity with exposure of the Achilles tendon. The patient underwent surgical intervention to correct calcaneal gait with plantar ulceration of the left heel on 01/26/2024. At that time of surgery she was found to have tendo Achilles tear to the left lower extremity resulting in a calcaneal gait. Tendon was debrided and a shortening of the tendo Achilles was performed in addition to FHL tendon transfer. 3 weeks later patient had fallen placing weight to the foot resulting in a tear and dehiscence of the surgical site with exposure of the Achilles tendon. She was returned to the OR for debridement on 02/22/2024 and wound VAC was applied over ulcerative area. She did have PICC line and completed 6 weeks of IV antibiotics during stay in the transitional care unit. She completed IV antibiotic 04/04/2024 PICC line was pulled and she was discharged from the transitional care unit to home. Surgery by Dr. Solano on 06/10/24 for Split-thickness skin grafting from the left lateral thigh to the left Achilles tendon ankle wound 7 x [address] Solano on 05/20/23 for Excision of left posterior ankle wound, including biofilm, subcutaneous tissue, fascia, and tendon, 7 x 3 cm and Irrigating wound VAC, vera flow, not disposable AND 05/22/24 - Excision of left posterior ankle wound, including biofilm, subcutaneous tissue, fascia, and tendon and Placement of dermal substitute (Integra) and wound VAC placed. Operative culture 05/15/24 positive for MSSA and Anaerobic cocci. Treated with Doxy, cefdinir, and Flagyl. Patient underwent multiple debridements and eventual skin grafting on 11 June 2024. She has developed compromise of her skin graft. Progress of Wound: Progress: Today represents her 12th hyperbaric oxygen therapy treatment. She has been scheduled for 20 sessions. Tolerance of hyperbaric oxygen therapy: Hyperbaric oxygen treatment was administered as the per the facility's protocol. 100% oxygen at 2 ALEYDA for 90 minutes without air breaks. The patient tolerated the hyperbaric oxygen therapy well without complications or complaints. Upon emergence from the hyperbaric chamber, the patient's vital signs remained stable. Pre and post blood sugars as documented. Objective Data Objective Data Vital Signs: Vital Signs Temp Pulse Resp BP 97.9 F 85 18 149/86 H 07/18/24 13:56 07/18/24 13:56 07/18/24 13:56 07/18/24 13:56 Weight: 104.326 kg Body Mass Index (BMI) 34.9 Lab / Micro Data Labs: Laboratory Results - last 24 hr 07/19/24 10:31: POC Glucose 141 H 07/19/24 12:42: POC Glucose 172 H Exam Physical Exam Const alert, oriented x3 and no apparent distress Psych mental status grossly normal, thought process normal, cooperative, affect normal and speech normal Nursing Assessment and Debridement Post-Debridement Measurements and Additional Note: Post-Debridement Measurements/Treatment WC - Nurse 3 - General Ulcer D/C NN Start: 07/15/24 14:12 Freq: Status: Active Protocol: Activity Type Activity Date Activity User E-sign Co-sign Detail Recorded Client Recorded Date Recorded By Document 07/16/24 14:00 [id number] 07/16/24 14:02 07/16/24 14:00 W[facility] Care Center Nurse 3 5. L post ankle/ Achilles repair post-op -Ulcer Cleansing Soap and Water -Negative Pressure Wound Therapy Continue -Setting (mmHg) 125 -Negative Pressure is Continuous -NPWT Application Charge NPWT </= 50 sq cm ($) left leg -Compression Wrap Mustapha Wrap Pain Scale: 0-10 Numeric Is Patient Pain Free? Yes WC - Visit Discharge Discharge Condition Stable Ambulatory Status Ambulatory,Cane Transportation Private Auto Medication Reconcilliation completed & Yes provided to patient/care provider Clinical Summary of Care Provided Yes Assessment/Plan Assessment/Plan (1) Skin graft (allograft) (autograft) failure: CODE(S): T86.821 - Skin graft (allograft) (autograft) failure (2) Wound of left ankle: CODE(S): S91.002A - Unspecified open wound, left ankle, initial encounter QUALIFIERS: Encounter type: subsequent encounter Qualified Code(s): S91.002D - Unspecified open wound, left ankle, subsequent encounter (3) Type 2 diabetes mellitus with hyperglycemia: CODE(S): E11.65 - Type 2 diabetes mellitus with hyperglycemia QUALIFIERS: Diabetes mellitus custodial insulin use: without long chain beamer use Qualified Code(s): E11.65 - Type 2 diabetes mellitus with hyperglycemia PLAN: Plan The patient tolerated hyperbaric oxygen therapy well, which will be continued as per her medical plan. This note was generated with [employer] software. It may contain incorrect words, spelling, and punctuation that were not noted in checking the note before signing.
[2024-07-19 13:29] VITALS: BP 108/61; BP 135/77; PULSE 75; PULSE 82; RESP 18; TEMP 36.3; TEMP 36.8
[2024-07-22 11:25] LABS: Bedside Glucose 124 mg/dL (74-106)
[2024-07-22 13:13] LABS: Bedside Glucose 115 mg/dL (74-106)
[2024-07-22 13:14] LABS: Bedside Glucose 122 mg/dL (74-106)
--- NOTE | 2024-07-22 13:24 | WC ---
Pt arrived for HBOT this mornig and her blood sugar was to low to dive. Rechecked x3 124/111/121. Simran informed and dive cancelled.
[2024-07-22 13:36] VITALS: BP 134/78; PULSE 81; RESP 16; TEMP 36.8; BMI 34.9
--- NOTE | 2024-07-22 15:54 | HBO.PN.PCM_ITS ---
History of Present Illness Date of Service: 07/22/24 Chief Complaint: Surgical dehiscence with exposure of the Achilles tendon left lower extremity; Allograft failure History of Wound: 58 y/o female with DM type II with peripheral polyneuropathy, peripheral vascular disease, asthma, morbid obesity, HTN, and hyperlipidemia presented [facility] for continued care of surgical dehiscence of her posterior left lower extremity with exposure of the Achilles tendon. The patient underwent surgical intervention to correct calcaneal gait with plantar ulceration of the left heel on 01/26/2024. At that time of surgery she was found to have tendo Achilles tear to the left lower extremity resulting in a calcaneal gait. Tendon was debrided and a shortening of the tendo Achilles was performed in addition to FHL tendon transfer. 3 weeks later patient had fallen placing weight to the foot resulting in a tear and dehiscence of the surgical site with exposure of the Achilles tendon. She was returned to the OR for debridement on 02/22/2024 and wound VAC was applied over ulcerative area. She did have PICC line and completed 6 weeks of IV antibiotics during stay in the transitional care unit. She completed IV antibiotic 04/04/2024 PICC line was pulled and she was discharged from the transitional care unit to home. Surgery by Dr. Solano on 06/10/24 for Split-thickness skin grafting from the left lateral thigh to the left Achilles tendon ankle wound 7 x [address] Solano on 05/20/23 for Excision of left posterior ankle wound, including biofilm, subcutaneous tissue, fascia, and tendon, 7 x 3 cm and Irrigating wound VAC, vera flow, not disposable AND 05/22/24 - Excision of left posterior ankle wound, including biofilm, subcutaneous tissue, fascia, and tendon and Placement of dermal substitute (Integra) and wound VAC placed. Operative culture 05/15/24 positive for MSSA and Anaerobic cocci. Treated with Doxy, cefdinir, and Flagyl. Patient underwent multiple debridements and eventual skin grafting on 11 June 2024. She has developed compromise of her skin graft. Progress of Wound: Initial blood sugar was 125. Patient had a protein drink and some cookies. Repeat blood sugar was 115. After waiting another 15 minutes her repeat blood sugar was 121. It was decided to hold off on HBO today due to her blood sugar level. Objective Data Objective Data Vital Signs: Vital Signs Temp Pulse Resp BP O2 Del Method 98.2 F 81 16 134/78 H Room Air 07/22/24 13:36 07/22/24 13:36 07/22/24 13:36 07/22/24 13:36 07/22/24 13:36 Oxygen Delivery Method Room Air Weight: 230 lb Body Mass Index (BMI) 34.9 Lab / Micro Data Labs: Laboratory Results - last 24 hr 07/22/24 11:06: POC Glucose 124 H 07/22/24 11:24: POC Glucose 115 H 07/22/24 11:39: POC Glucose 122 H Exam Physical Exam Const alert, oriented x3 and no apparent distress General Appearance: cooperative HEENT normocephalic and TM's normal bilaterally Head and Scalp: atraumatic Eyes General Eye: normal appearance of both eyes Resp normal respiratory effort, no use of accessory muscles and clear to auscultation bilaterally Effort and Inspection: able to speak in complete sentences Cardio regular rate and regular rhythm Psych affect normal Nursing Assessment and Debridement Post-Debridement Measurements and Additional Note: Post-Debridement Measurements/Treatment - Nurse 1 - General Ulcer Assessment Start: 07/15/24 14:12 Freq: Status: Active Protocol: MILADY.ASHLEE Activity Type Activity Date Activity User E-sign Co-sign Detail Recorded Client Recorded Date Recorded By Document 07/22/24 13:36 [id number] 07/22/24 13:45 07/22/24 13:36 - Today's Visit Information Type of service Follow-up Visit (Physician/SYSTEMS SECURITY CONSULTANT ) Arrival Mode Ambulatory,Cane Patient Identification Verified (Name & Yes ) Height and Weight Body Mass Index (BMI) 34.9 BMI Classification Obese Vital Signs Temperature (97.8 F-99.1 F) 98.2 F Temperature Source Temporal Pulse Rate (60-100) 81 Pulse Location Monitor Respiratory Rate (12-18) 16 Respiratory rate source Monitor Oxygen Delivery Method Room Air Blood Pressure (90/60-120/80) 134/78 H Blood Pressure Mean (mm Hg) 96 Source Monitor Position Sitting Blood Pressure Location Left Arm History Since Last Visit- (Skip if this is Patient's initial visit) Have you changed medications since your No last visit? Any new allergies or adverse reactions No Had a fall/change in ADL's that may No increase risk of falls Signs or symptoms of abuse and/or No neglect since last visit Have you been in the hospital since your No last visit? Has dressing in place as prescribed Yes Has compression in place as prescribed Yes Has offloadiing in place as prescribed N/A Experienced any changes in pain level or No management Left Footwear Regular Shoe Right Footwear Regular Shoe Pain Scale: 0-10 Numeric Is Patient Pain Free? Yes WC - Nurse 1 - General Ulcer Measurement Start: 07/15/24 14:12 Freq: Status: Active Protocol: Activity Type Activity Date Activity User E-sign Co-sign Detail Recorded Client Recorded Date Recorded By Document 07/22/24 13:36 KW [id number] 07/22/24 13:45 07/22/24 13:36 Wound Center Nurse 1 5. L post ankle/ Achilles repair post-op -Current Size (cm) - Length 6.3 -Current Size (cm) - Width 2 -Current Size (cm) - Depth 0.3 -Total Square Cm 12.6 -Date of Last Picture (Recall this 07/22/24 field) -Exudate Amt Medium -Exudate Type Serosanguineous -Wound Margin Distinct, Outline Attached -Granulation Amt Large (67-100%) -Granulation Quality Red -Texture (Yanely-wound Skin Appearance) Assessed -Moisture (Yanely-wound Skin Appearance) Assessed, Maceration -Color (Yanely-wound Skin Appearance) Assessed -Temperature (Yanely-wound Skin No Abnormality Appearance) (Pt Warm) -Ulcer Cleansing Soap and Water -Foul Odor after Cleansing No -Anesthetic Used 5% Lidocaine Gel WC - Nurse 2 - General Ulcer CM Notes Start: 07/15/24 14:12 Freq: Status: Active Protocol: Activity Type Activity Date Activity User E-sign Co-sign Detail Recorded Client Recorded Date Recorded By Document 07/22/24 13:51 JF [id number] 07/22/24 13:58 07/22/24 13:51 Wound Center Nurse 2 -Correct Patient No -Correct Side, Site, Position No -Correct Procedure No -Procedure Performed No -Wound/Ulcer Outcome Not Healed -Bleeding Controlled with Pressure -Treatment Response Procedure Tolerated Well -Offloading No Pain Scale: 0-10 Numeric Is Patient Pain Free? Yes MILADY - Nurse 3 - General Ulcer D/C NN Start: 07/15/24 14:12 Freq: Status: Active Protocol: Activity Type Activity Date Activity User E-sign Co-sign Detail Recorded Client Recorded Date Recorded By Document 07/22/24 14:25 DL [id number] 07/22/24 14:27 DL 07/22/24 14:25 Wound Care Center Nurse 3 5. L post ankle/ Achilles repair post-op -Ulcer Cleansing Soap and Water -Foul Odor after Cleansing No -Negative Pressure Wound Therapy Continue -Setting (mmHg) 125 -Negative Pressure is Continuous -Other Covering mustapha -NPWT Application Charge NPWT & Debridement (nc ) left leg -Compression Wrap Mustapha Wrap Treatment Response Procedure Tolerated Well Pain Scale: 0-10 Numeric Is Patient Pain Free? Yes WC - Visit Discharge Discharge Condition Stable Ambulatory Status Ambulatory Transportation Private Auto Facility Type Home Health Orders Sent Yes Charges/Coding Visit Charges Office Visits / Consults: 51344 OV L2 Est 10min Assessment/Plan Assessment/Plan (1) Skin graft (allograft) (autograft) failure: CODE(S): T86.821 - Skin graft (allograft) (autograft) failure (2) Wound of left ankle: CODE(S): S91.002A - Unspecified open wound, left ankle, initial encounter QUALIFIERS: Encounter type: subsequent encounter Qualified Code(s): S91.002D - Unspecified open wound, left ankle, subsequent encounter (3) Type 2 diabetes mellitus with hyperglycemia: CODE(S): E11.65 - Type 2 diabetes mellitus with hyperglycemia QUALIFIERS: Diabetes mellitus shelter insulin use: without truck terminal manager use Qualified Code(s): E11.65 - Type 2 diabetes mellitus with hyperglycemia PLAN: Plan Hyperbaric oxygen therapy was canceled today due to her blood sugar levels
--- NOTE | 2024-07-22 17:14 | PCM.WC.PN ---
History of Present Illness Date of Service: 07/22/24 Chief Complaint: Surgical dehiscence with exposure of the Achilles tendon left lower extremity; Allograft failure History of Wound: 58 y/o female with DM type II with peripheral polyneuropathy, peripheral vascular disease, asthma, morbid obesity, HTN, and hyperlipidemia presented to the [facility] for continued care of surgical dehiscence of her posterior left lower extremity with exposure of the Achilles tendon. The patient underwent surgical intervention to correct calcaneal gait with plantar ulceration of the left heel on 01/26/2024. At that time of surgery she was found to have tendo Achilles tear to the left lower extremity resulting in a calcaneal gait. Tendon was debrided and a shortening of the tendo Achilles was performed in addition to FHL tendon transfer. 3 weeks later patient had fallen placing weight to the foot resulting in a tear and dehiscence of the surgical site with exposure of the Achilles tendon. She was returned to the OR for debridement on 02/22/2024 and wound VAC was applied over ulcerative area. She did have PICC line and completed 6 weeks of IV antibiotics during stay in the transitional care unit. She completed IV antibiotic 04/04/2024 PICC line was pulled and she was discharged from the transitional care unit to home. Surgery by Dr. Solano on 06/10/24 for Split-thickness skin grafting from the left lateral thigh to the left Achilles tendon ankle wound 7 x [address] Solano on 05/20/23 for Excision of left posterior ankle wound, including biofilm, subcutaneous tissue, fascia, and tendon, 7 x 3 cm and Irrigating wound VAC, vera flow, not disposable AND 05/22/24 - Excision of left posterior ankle wound, including biofilm, subcutaneous tissue, fascia, and tendon and Placement of dermal substitute (Integra) and wound VAC placed. Operative culture 05/15/24 positive for MSSA and Anaerobic cocci. Treated with Doxy, cefdinir, and Flagyl. Patient underwent multiple debridements and eventual skin grafting on 11 June 2024. She has developed compromise of her skin graft. Progress of Wound: Progress: Today represents her 12th hyperbaric oxygen therapy treatment. She has been scheduled for 20 sessions. Tolerance of hyperbaric oxygen therapy: Hyperbaric oxygen treatment was administered as the per the facility's protocol. 100% oxygen at 2 ALEYDA for 90 minutes without air breaks. The patient tolerated the hyperbaric oxygen therapy well without complications or complaints. Upon emergence from the hyperbaric chamber, the patient's vital signs remained stable. Pre and post blood sugars as documented. Subjective Subjective Has been tolerating HBOT and is on treatment 12 today. Reports excellent VAC changes by nursing. No new complaints. Walking well. Reports good sugar control. She's not smoking anymore, but is still using a vape pen. Objective Data Objective Data Vital Signs: Vital Signs Temp Pulse Resp BP O2 Del Method 98.2 F 81 16 134/78 H Room Air 07/22/24 13:36 07/22/24 13:36 07/22/24 13:36 07/22/24 13:36 07/22/24 13:36 Oxygen Delivery Method Room Air Weight: 230 lb Body Mass Index (BMI) 34.9 Lab / Micro Data Labs: Laboratory Results - last 24 hr 07/22/24 11:06: POC Glucose 124 H 07/22/24 11:24: POC Glucose 115 H 07/22/24 11:39: POC Glucose 122 H Charges/Coding Procedures Integumentary [id number]: [id number] Global Visit Physical Exam Narrative Near 100%skin graft compromise/loss (would benefit from hyperbaric oxygen therapy). No signs of infection. No exposed tendon at this time. 08 JUL 2024 TODAY, 22 JUL 2024 Wound is granulating wtter since hyperbaric oxygen started. Also is smaller at 6.2 cm by 2 cm Const alert and oriented x3 General Appearance: cooperative HEENT normocephalic HEENT Narrative: Tympanic membranes were not visualized, too much cerumen Neck full ROM Resp normal respiratory effort Auscultation: clear to auscultation bilaterally Cardio regular rate, regular rhythm, S1 normal heart sound, S2 normal heart sound, no murmurs, no rub, no gallops and no clicks Extremity Extremity Narrative: Left thigh donor site healing well, xeroform reapplied (XF was not stuck down on wound bed and didn't dry out). Debridement Note Debridement Note Post-Debridement Measurements and Additional Note: Post-Debridement Measurements/Treatment MILADY - Nurse 1 - General Ulcer Assessment Start: 07/15/24 14:12 Freq: Status: Active Protocol: BUSTER Activity Type Activity Date Activity User E-sign Co-sign Detail Recorded Client Recorded Date Recorded By Document 07/22/24 13:36 KW [id number] 07/22/24 13:45 07/22/24 13:36 WC - Today's Visit Information Type of service Follow-up Visit (Physician/PRODUCT MARKETING ANALYST ) Arrival Mode Ambulatory,Cane Patient Identification Verified (Name & Yes ) Height and Weight Body Mass Index (BMI) 34.9 BMI Classification Obese Vital Signs Temperature (97.8 F-99.1 F) 98.2 F Temperature Source Temporal Pulse Rate (60-100) 81 Pulse Location Monitor Respiratory Rate (12-18) 16 Respiratory rate source Monitor Oxygen Delivery Method Room Air Blood Pressure (90/60-120/80) 134/78 H Blood Pressure Mean (mm Hg) 96 Source Monitor Position Sitting Blood Pressure Location Left Arm History Since Last Visit- (Skip if this is Patient's initial visit) Have you changed medications since your No last visit? Any new allergies or adverse reactions No Had a fall/change in ADL's that may No increase risk of falls Signs or symptoms of abuse and/or No neglect since last visit Have you been in the hospital since your No last visit? Has dressing in place as prescribed Yes Has compression in place as prescribed Yes Has offloadiing in place as prescribed N/A Experienced any changes in pain level or No management Left Footwear Regular Shoe Right Footwear Regular Shoe Pain Scale: 0-10 Numeric Is Patient Pain Free? Yes - Nurse 1 - General Ulcer Measurement Start: 07/15/24 14:12 Freq: Status: Active Protocol: Activity Type Activity Date Activity User E-sign Co-sign Detail Recorded Client Recorded Date Recorded By Document 07/22/24 13:36 KW [id number] 07/22/24 13:45 07/22/24 13:36 Wound Center Nurse 1 5. L post ankle/ Achilles repair post-op -Current Size (cm) - Length 6.3 -Current Size (cm) - Width 2 -Current Size (cm) - Depth 0.3 -Total Square Cm 12.6 -Date of Last Picture (Recall this 07/22/24 field) -Exudate Amt Medium -Exudate Type Serosanguineous -Wound Margin Distinct, Outline Attached -Granulation Amt Large (67-100%) -Granulation Quality Red -Texture (Yanely-wound Skin Appearance) Assessed -Moisture (Yanely-wound Skin Appearance) Assessed, Maceration -Color (Yanely-wound Skin Appearance) Assessed -Temperature (Yanely-wound Skin No Abnormality Appearance) (Pt Warm) -Ulcer Cleansing Soap and Water -Foul Odor after Cleansing No -Anesthetic Used 5% Lidocaine Gel - Nurse 2 - General Ulcer CM Notes Start: 07/15/24 14:12 Freq: Status: Active Protocol: Activity Type Activity Date Activity User E-sign Co-sign Detail Recorded Client Recorded Date Recorded By Document 07/22/24 13:51 [id number] 07/22/24 13:58 07/22/24 13:51 Wound Center Nurse 2 -Correct Patient No -Correct Side, Site, Position No -Correct Procedure No -Procedure Performed No -Wound/Ulcer Outcome Not Healed -Bleeding Controlled with Pressure -Treatment Response Procedure Tolerated Well -Offloading No Pain Scale: 0-10 Numeric Is Patient Pain Free? Yes - Nurse 3 - General Ulcer D/C NN Start: 07/15/24 14:12 Freq: Status: Active Protocol: Activity Type Activity Date Activity User E-sign Co-sign Detail Recorded Client Recorded Date Recorded By Document 07/16/24 14:00 JF [id number] 07/16/24 14:02 JF Document 07/22/24 14:25 DL [id number] 07/22/24 14:27 DL 07/16/24 07/22/24 14:00 14:25 Wound Care Center Nurse 3 5. L post ankle/ Achilles repair post-op -Ulcer Cleansing Soap and Water Soap and Water -Foul Odor after Cleansing No -Negative Pressure Wound Therapy Continue Continue -Setting (mmHg) 125 125 -Negative Pressure is Continuous Continuous -Other Covering mustapha -NPWT Application Charge NPWT </= 50 sq NPWT & cm ($) Debridement (nc ) left leg -Compression Wrap Mustapha Wrap Mustapha Wrap Treatment Response Procedure Tolerated Well Pain Scale: 0-10 Numeric Is Patient Pain Free? Yes Yes - Visit Discharge Discharge Condition Stable Stable Ambulatory Status Ambulatory,Cane Ambulatory Transportation Private Auto Private Auto Medication Reconcilliation completed & Yes provided to patient/care provider Clinical Summary of Care Provided Yes Facility Type Home Health Orders Sent Yes Assessment/Plan Assessment/Plan (1) Skin graft (allograft) (autograft) failure: CODE(S): T86.821 - Skin graft (allograft) (autograft) failure (2) Wound of left ankle: CODE(S): S91.002A - Unspecified open wound, left ankle, initial encounter QUALIFIERS: Encounter type: subsequent encounter Qualified Code(s): S91.002D - Unspecified open wound, left ankle, subsequent encounter PLAN: Plan Hyperbaric oxygen seems to be helping the wound. Needs to continue VAC changes. The wound bed appears healthier and may be better optimized for a skin graft. I talked to her about the risks, benefits, and alternatives to attempting another skin graft. She understands that the graft could fail again, but that it may speed up wound healing. She would like to try a skin graft again. Continue HBOT and continue TIW VAC changes. Plan to schedule repeat STSG. CPT codes for insurance prior authorization are as follows: [id number], [id number]
--- NOTE | 2024-07-23 10:06 | WC ---
PHOTO 07/22/24 LEFT ACHILLES POST OP
[2024-07-23 11:17] LABS: Bedside Glucose 206 mg/dL (74-106)
[2024-07-23 13:24] VITALS: BP 111/60; BP 146/78; PULSE 66; PULSE 71; RESP 17; RESP 20; TEMP 35.9; TEMP 36.6
[2024-07-23 13:35] LABS: Bedside Glucose 216 mg/dL (74-106)
--- NOTE | 2024-07-24 10:36 | PCM.HBO.PN ---
History of Present Illness Date of Service: 07/23/24 Chief Complaint: Surgical dehiscence with exposure of the Achilles tendon left lower extremity; Allograft failure History of Wound: 59 y/o female with DM type II with peripheral polyneuropathy, peripheral vascular disease, asthma, morbid obesity, HTN, and hyperlipidemia presented [facility] for continued care of surgical dehiscence of her posterior left lower extremity with exposure of the Achilles tendon. The patient underwent surgical intervention to correct calcaneal gait with plantar ulceration of the left heel on 01/26/2024. At that time of surgery she was found to have tendo Achilles tear to the left lower extremity resulting in a calcaneal gait. Tendon was debrided and a shortening of the tendo Achilles was performed in addition to FHL tendon transfer. 3 weeks later patient had fallen placing weight to the foot resulting in a tear and dehiscence of the surgical site with exposure of the Achilles tendon. She was returned to the OR for debridement on 02/22/2024 and wound VAC was applied over ulcerative area. She did have PICC line and completed 6 weeks of IV antibiotics during stay in the transitional care unit. She completed IV antibiotic 04/04/2024 PICC line was pulled and she was discharged from the transitional care unit to home. Surgery by Dr. Solano on 06/10/24 for Split-thickness skin grafting from the left lateral thigh to the left Achilles tendon ankle wound 7 x [address] Solano on 05/20/23 for Excision of left posterior ankle wound, including biofilm, subcutaneous tissue, fascia, and tendon, 7 x 3 cm and Irrigating wound VAC, vera flow, not disposable AND 05/22/24 - Excision of left posterior ankle wound, including biofilm, subcutaneous tissue, fascia, and tendon and Placement of dermal substitute (Integra) and wound VAC placed. Operative culture 05/15/24 positive for MSSA and Anaerobic cocci. Treated with Doxy, cefdinir, and Flagyl. Patient underwent multiple debridements and eventual skin grafting on 11 June 2024. She has developed compromise of her skin graft. Progress of Wound: Today's hyperbaric oxygen therapy session represents the 13th such session. The patient is scheduled for 20 such sessions. Tolerance of hyperbaric oxygen therapy: Hyperbaric oxygen therapy was administered as per the facility's protocol. Hyperbaric oxygen therapy was administered and 100% oxygen at 2 richar for 90 minutes without air breaks. The patient tolerated hyperbaric oxygen therapy without complaints or complications. Upon emergence from the hyperbaric chamber, the patient's vital signs remained stable. She was discharged in good condition. Preprocedure blood sugar was 206. Postprocedure blood sugar was 216. Subjective Subjective The patient appears to be tolerating hyperbaric oxygen therapy well. Today represents the 13th such hyperbaric oxygen treatment. The patient appears to be doing well. Objective Data Objective Data Vital Signs: Vital Signs Temp Pulse Resp BP O2 Del Method 97.9 F 71 17 146/78 H Room Air 07/23/24 13:24 07/23/24 13:24 07/23/24 13:24 07/23/24 13:24 07/22/24 13:36 Oxygen Delivery Method Room Air Weight: 230 lb Body Mass Index (BMI) 34.9 Lab / Micro Data Labs: Laboratory Results - last 24 hr 07/23/24 10:57: POC Glucose 206 H 07/23/24 13:11: POC Glucose 216 H Exam Physical Exam Const alert, oriented x3, no apparent distress and well nourished General Appearance: cooperative and well developed HEENT normocephalic and EAC's normal Head and Scalp: atraumatic Eyes EOMs intact bilaterally Neck supple and no JVD General: trachea midline Resp normal respiratory effort and no use of accessory muscles Effort and Inspection: able to speak in complete sentences Psych affect normal Appearance: grossly normal and well kempt Speech: normal speech Nursing Assessment and Debridement Post-Debridement Measurements and Additional Note: Post-Debridement Measurements/Treatment - Nurse 1 - General Ulcer Assessment Start: 07/15/24 14:12 Freq: Status: Active Protocol: [email or web address] Activity Type Activity Date Activity User E-sign Co-sign Detail Recorded Client Recorded Date Recorded By Document 07/22/24 13:36 KW [id number] 07/22/24 13:45 KW 07/22/24 13:36 - Today's Visit Information Type of service Follow-up Visit (Physician/MUSIC EDUCATOR ) Arrival Mode Ambulatory,Cane Patient Identification Verified (Name & Yes ) Height and Weight Body Mass Index (BMI) 34.9 BMI Classification Obese Vital Signs Temperature (97.8 F-99.1 F) 98.2 F Temperature Source Temporal Pulse Rate (60-100) 81 Pulse Location Monitor Respiratory Rate (12-18) 16 Respiratory rate source Monitor Oxygen Delivery Method Room Air Blood Pressure (90/60-120/80) 134/78 H Blood Pressure Mean (mm Hg) 96 Source Monitor Position Sitting Blood Pressure Location Left Arm History Since Last Visit- (Skip if this is Patient's initial visit) Have you changed medications since your No last visit? Any new allergies or adverse reactions No Had a fall/change in ADL's that may No increase risk of falls Signs or symptoms of abuse and/or No neglect since last visit Have you been in the hospital since your No last visit? Has dressing in place as prescribed Yes Has compression in place as prescribed Yes Has offloadiing in place as prescribed N/A Experienced any changes in pain level or No management Left Footwear Regular Shoe Right Footwear Regular Shoe Pain Scale: 0-10 Numeric Is Patient Pain Free? Yes WC - Nurse 1 - General Ulcer Measurement Start: 07/15/24 14:12 Freq: Status: Active Protocol: Activity Type Activity Date Activity User E-sign Co-sign Detail Recorded Client Recorded Date Recorded By Document 07/22/24 13:36 DOMO [id number] 07/22/24 13:45 KW 07/22/24 13:36 Wound Center Nurse 1 5. L post ankle/ Achilles repair post-op -Current Size (cm) - Length 6.3 -Current Size (cm) - Width 2 -Current Size (cm) - Depth 0.3 -Total Square Cm 12.6 -Date of Last Picture (Recall this 07/22/24 field) -Exudate Amt Medium -Exudate Type Serosanguineous -Wound Margin Distinct, Outline Attached -Granulation Amt Large (67-100%) -Granulation Quality Red -Texture (Yanely-wound Skin Appearance) Assessed -Moisture (Yanely-wound Skin Appearance) Assessed, Maceration -Color (Yanely-wound Skin Appearance) Assessed -Temperature (Yanely-wound Skin No Abnormality Appearance) (Pt Warm) -Ulcer Cleansing Soap and Water -Foul Odor after Cleansing No -Anesthetic Used 5% Lidocaine Gel WC - Nurse 2 - General Ulcer CM Notes Start: 07/15/24 14:12 Freq: Status: Active Protocol: Activity Type Activity Date Activity User E-sign Co-sign Detail Recorded Client Recorded Date Recorded By Document 07/22/24 13:51 GONZALO [id number] 07/22/24 13:58 07/22/24 13:51 Wound Center Nurse 2 -Correct Patient No -Correct Side, Site, Position No -Correct Procedure No -Procedure Performed No -Wound/Ulcer Outcome Not Healed -Bleeding Controlled with Pressure -Treatment Response Procedure Tolerated Well -Offloading No Pain Scale: 0-10 Numeric Is Patient Pain Free? Yes - Nurse 3 - General Ulcer D/C NN Start: 07/15/24 14:12 Freq: Status: Active Protocol: Activity Type Activity Date Activity User E-sign Co-sign Detail Recorded Client Recorded Date Recorded By Document 07/22/24 14:25 DL [id number] 07/22/24 14:27 DL 07/22/24 14:25 Wound Care Center Nurse 3 5. L post ankle/ Achilles repair post-op -Ulcer Cleansing Soap and Water -Foul Odor after Cleansing No -Negative Pressure Wound Therapy Continue -Setting (mmHg) 125 -Negative Pressure is Continuous -Other Covering mustapha -NPWT Application Charge NPWT </= 50 sq cm ($) left leg -Compression Wrap Mustapha Wrap Treatment Response Procedure Tolerated Well Pain Scale: 0-10 Numeric Is Patient Pain Free? Yes WC - Visit Discharge Discharge Condition Stable Ambulatory Status Ambulatory Transportation Private Auto Facility Type Home Health Orders Sent Yes Charges/Coding Wound Center CF Procedures HBO Supervision: [id number] Hyperbaric Oxygen; supervision Assessment/Plan Assessment/Plan (1) Skin graft (allograft) (autograft) failure: CODE(S): T86.821 - Skin graft (allograft) (autograft) failure (2) Wound of left ankle: CODE(S): S91.002A - Unspecified open wound, left ankle, initial encounter QUALIFIERS: Encounter type: subsequent encounter Qualified Code(s): S91.002D - Unspecified open wound, left ankle, subsequent encounter (3) Type 2 diabetes mellitus with hyperglycemia: CODE(S): E11.65 - Type 2 diabetes mellitus with hyperglycemia QUALIFIERS: Diabetes mellitus intermediate school teacher insulin use: without intermediate school teacher use Qualified Code(s): E11.65 - Type 2 diabetes mellitus with hyperglycemia PLAN: Plan The patient appears to be tolerating hyperbaric oxygen therapy well. Hyperbaric oxygen therapy will continue as per the patient's medical plan. The patient is scheduled to return in 24 hours for her next hyperbaric oxygen treatment.
[2024-07-24 10:55] LABS: Bedside Glucose 195 mg/dL (74-106)
--- NOTE | 2024-07-24 12:57 | PCM.HBO.PN ---
History of Present Illness Date of Service: 07/24/24 Chief Complaint: Surgical dehiscence with exposure of the Achilles tendon left lower extremity; Allograft failure History of Wound: 59 y/o female with DM type II with peripheral polyneuropathy, peripheral vascular disease, asthma, morbid obesity, HTN, and hyperlipidemia presented to the [facility] for continued care of surgical dehiscence of her posterior left lower extremity with exposure of the Achilles tendon. The patient underwent surgical intervention to correct calcaneal gait with plantar ulceration of the left heel on 01/26/2024. At that time of surgery she was found to have tendo Achilles tear to the left lower extremity resulting in a calcaneal gait. Tendon was debrided and a shortening of the tendo Achilles was performed in addition to FHL tendon transfer. 3 weeks later patient had fallen placing weight to the foot resulting in a tear and dehiscence of the surgical site with exposure of the Achilles tendon. She was returned to the OR for debridement on 02/22/2024 and wound VAC was applied over ulcerative area. She did have PICC line and completed 6 weeks of IV antibiotics during stay in the transitional care unit. She completed IV antibiotic 04/04/2024 PICC line was pulled and she was discharged from the transitional care unit to home. Surgery by Dr. Solano on 06/10/24 for Split-thickness skin grafting from the left lateral thigh to the left Achilles tendon ankle wound 7 x [address] Solano on 05/20/23 for Excision of left posterior ankle wound, including biofilm, subcutaneous tissue, fascia, and tendon, 7 x 3 cm and Irrigating wound VAC, vera flow, not disposable AND 05/22/24 - Excision of left posterior ankle wound, including biofilm, subcutaneous tissue, fascia, and tendon and Placement of dermal substitute (Integra) and wound VAC placed. Operative culture 05/15/24 positive for MSSA and Anaerobic cocci. Treated with Doxy, cefdinir, and Flagyl. Patient underwent multiple debridements and eventual skin grafting on 11 June 2024. She has developed compromise of her skin graft. Progress of Wound: Today's hyperbaric oxygen therapy session represents the 14th such session. The patient is scheduled for 20 such sessions. Tolerance of hyperbaric oxygen therapy: Hyperbaric oxygen therapy was administered as per the facility's protocol. Hyperbaric oxygen therapy was administered and 100% oxygen at 2 richar for 90 minutes without air breaks. The patient tolerated hyperbaric oxygen therapy without complaints or complications. Upon emergence from the hyperbaric chamber, the patient's vital signs remained stable. She was discharged in good condition. Preprocedure blood sugar was 206. Postprocedure blood sugar was 216. Subjective Subjective Tolerating treatments well with no complaints Objective Data Objective Data Vital signs have been stable blood sugars good patient is taking the treatments well we will continue as prescribed Vital Signs: Vital Signs Temp Pulse Resp BP O2 Del Method 97.9 F 71 17 146/78 H Room Air 07/23/24 13:24 07/23/24 13:24 07/23/24 13:24 07/23/24 13:24 07/22/24 13:36 Oxygen Delivery Method Room Air Weight: 230 lb Body Mass Index (BMI) 34.9 Lab / Micro Data Labs: Laboratory Results - last 24 hr 07/23/24 13:11: POC Glucose 216 H 07/24/24 10:37: POC Glucose 195 H Exam Physical Exam Const alert, oriented x3, no apparent distress and well nourished General Appearance: cooperative and well developed HEENT normocephalic and EAC's normal Head and Scalp: atraumatic Eyes EOMs intact bilaterally Neck supple and no JVD General: trachea midline Resp normal respiratory effort and no use of accessory muscles Effort and Inspection: able to speak in complete sentences Psych affect normal Appearance: grossly normal and well kempt Speech: normal speech Nursing Assessment and Debridement Post-Debridement Measurements and Additional Note: Post-Debridement Measurements/Treatment - Nurse 1 - General Ulcer Assessment Start: 07/15/24 14:12 Freq: Status: Active Protocol: BUSTER Activity Type Activity Date Activity User E-sign Co-sign Detail Recorded Client Recorded Date Recorded By Document 07/22/24 13:36 KW [id number] 07/22/24 13:45 KW 07/22/24 13:36 - Today's Visit Information Type of service Follow-up Visit (Physician/SUPERVISOR ORNAMENTAL IRONWORKING ) Arrival Mode Ambulatory,Cane Patient Identification Verified (Name & Yes ) Height and Weight Body Mass Index (BMI) 34.9 BMI Classification Obese Vital Signs Temperature (97.8 F-99.1 F) 98.2 F Temperature Source Temporal Pulse Rate (60-100) 81 Pulse Location Monitor Respiratory Rate (12-18) 16 Respiratory rate source Monitor Oxygen Delivery Method Room Air Blood Pressure (90/60-120/80) 134/78 H Blood Pressure Mean (mm Hg) 96 Source Monitor Position Sitting Blood Pressure Location Left Arm History Since Last Visit- (Skip if this is Patient's initial visit) Have you changed medications since your No last visit? Any new allergies or adverse reactions No Had a fall/change in ADL's that may No increase risk of falls Signs or symptoms of abuse and/or No neglect since last visit Have you been in the hospital since your No last visit? Has dressing in place as prescribed Yes Has compression in place as prescribed Yes Has offloadiing in place as prescribed N/A Experienced any changes in pain level or No management Left Footwear Regular Shoe Right Footwear Regular Shoe Pain Scale: 0-10 Numeric Is Patient Pain Free? Yes - Nurse 1 - General Ulcer Measurement Start: 07/15/24 14:12 Freq: Status: Active Protocol: Activity Type Activity Date Activity User E-sign Co-sign Detail Recorded Client Recorded Date Recorded By Document 07/22/24 13:36 DOMO [id number] 07/22/24 13:45 DOMO 07/22/24 13:36 Wound Center Nurse 1 5. L post ankle/ Achilles repair post-op -Current Size (cm) - Length 6.3 -Current Size (cm) - Width 2 -Current Size (cm) - Depth 0.3 -Total Square Cm 12.6 -Date of Last Picture (Recall this 07/22/24 field) -Exudate Amt Medium -Exudate Type Serosanguineous -Wound Margin Distinct, Outline Attached -Granulation Amt Large (67-100%) -Granulation Quality Red -Texture (Yanely-wound Skin Appearance) Assessed -Moisture (Yanely-wound Skin Appearance) Assessed, Maceration -Color (Yanely-wound Skin Appearance) Assessed -Temperature (Yanely-wound Skin No Abnormality Appearance) (Pt Warm) -Ulcer Cleansing Soap and Water -Foul Odor after Cleansing No -Anesthetic Used 5% Lidocaine Gel - Nurse 2 - General Ulcer CM Notes Start: 07/15/24 14:12 Freq: Status: Active Protocol: Activity Type Activity Date Activity User E-sign Co-sign Detail Recorded Client Recorded Date Recorded By Document 07/22/24 13:51 GONZALO [id number] 07/22/24 13:58 JF 07/22/24 13:51 Wound Center Nurse 2 -Correct Patient No -Correct Side, Site, Position No -Correct Procedure No -Procedure Performed No -Wound/Ulcer Outcome Not Healed -Bleeding Controlled with Pressure -Treatment Response Procedure Tolerated Well -Offloading No Pain Scale: 0-10 Numeric Is Patient Pain Free? Yes - Nurse 3 - General Ulcer D/C NN Start: 07/15/24 14:12 Freq: Status: Active Protocol: Activity Type Activity Date Activity User E-sign Co-sign Detail Recorded Client Recorded Date Recorded By Document 07/22/24 14:25 DL [id number] 07/22/24 14:27 DL 07/22/24 14:25 Wound Care Center Nurse 3 5. L post ankle/ Achilles repair post-op -Ulcer Cleansing Soap and Water -Foul Odor after Cleansing No -Negative Pressure Wound Therapy Continue -Setting (mmHg) 125 -Negative Pressure is Continuous -Other Covering mustapha -NPWT Application Charge NPWT </= 50 sq cm ($) left leg -Compression Wrap Mustapha Wrap Treatment Response Procedure Tolerated Well Pain Scale: 0-10 Numeric Is Patient Pain Free? Yes - Visit Discharge Discharge Condition Stable Ambulatory Status Ambulatory Transportation Private [facility] Facility Type Home Health Orders Sent Yes Assessment/Plan Assessment/Plan (1) Skin graft (allograft) (autograft) failure: CODE(S): T86.821 - Skin graft (allograft) (autograft) failure (2) Wound of left ankle: CODE(S): S91.002A - Unspecified open wound, left ankle, initial encounter QUALIFIERS: Encounter type: subsequent encounter Qualified Code(s): S91.002D - Unspecified open wound, left ankle, subsequent encounter (3) Type 2 diabetes mellitus with hyperglycemia: CODE(S): E11.65 - Type 2 diabetes mellitus with hyperglycemia QUALIFIERS: Diabetes mellitus detention insulin use: without oil heaterman use Qualified Code(s): E11.65 - Type 2 diabetes mellitus with hyperglycemia PLAN: Plan The patient appears to be tolerating hyperbaric oxygen therapy well. Hyperbaric oxygen therapy will continue as per the patient's medical plan. The patient is scheduled to return in 24 hours for her next hyperbaric oxygen treatment.
[2024-07-24 13:12] LABS: Bedside Glucose 165 mg/dL (74-106)
[2024-07-24 13:47] VITALS: BP 127/73; BP 137/77; PULSE 73; PULSE 77; RESP 18; TEMP 36.1; TEMP 37.2
[2024-07-25 11:06] LABS: Bedside Glucose 215 mg/dL (74-106)
--- NOTE | 2024-07-25 12:17 | HBO.PN.PCM_ITS ---
History of Present Illness Date of Service: 07/25/24 Chief Complaint: Surgical dehiscence with exposure of the Achilles tendon left lower extremity; Allograft failure History of Wound: 59 y/o female with DM type II with peripheral polyneuropathy, peripheral vascular disease, asthma, morbid obesity, HTN, and hyperlipidemia presented [facility] for continued care of surgical dehiscence of her posterior left lower extremity with exposure of the Achilles tendon. The patient underwent surgical intervention to correct calcaneal gait with plantar ulceration of the left heel on 01/26/2024. At that time of surgery she was found to have tendo Achilles tear to the left lower extremity resulting in a calcaneal gait. Tendon was debrided and a shortening of the tendo Achilles was performed in addition to FHL tendon transfer. 3 weeks later patient had fallen placing weight to the foot resulting in a tear and dehiscence of the surgical site with exposure of the Achilles tendon. She was returned to the OR for debridement on 02/22/2024 and wound VAC was applied over ulcerative area. She did have PICC line and completed 6 weeks of IV antibiotics during stay in the transitional care unit. She completed IV antibiotic 04/04/2024 PICC line was pulled and she was discharged from the transitional care unit to home. Surgery by Dr. Solano on 06/10/24 for Split-thickness skin grafting from the left lateral thigh to the left Achilles tendon ankle wound 7 x [address] Solano on 05/20/23 for Excision of left posterior ankle wound, including biofilm, subcutaneous tissue, fascia, and tendon, 7 x 3 cm and Irrigating wound VAC, vera flow, not disposable AND 05/22/24 - Excision of left posterior ankle wound, including biofilm, subcutaneous tissue, fascia, and tendon and Placement of dermal substitute (Integra) and wound VAC placed. Operative culture 05/15/24 positive for MSSA and Anaerobic cocci. Treated with Doxy, cefdinir, and Flagyl. Patient underwent multiple debridements and eventual skin grafting on 11 June 2024. She has developed compromise of her skin graft. Progress of Wound: Progress: Today represents her th hyperbaric oxygen therapy treatment. She has been scheduled for 20 sessions. Tolerance of hyperbaric oxygen therapy: Hyperbaric oxygen treatment was administered as the per the facility's protocol. 100% oxygen at 2 ALEYDA for 90 minutes without air breaks. The patient tolerated the hyperbaric oxygen therapy well without complications or complaints. Upon emergence from the hyperbaric chamber, the patient's vital signs remained stable. Pre and post blood sugars as documented. She was discharged in stable condition. Objective Data Objective Data Vital Signs: Vital Signs Temp Pulse Resp BP O2 Del Method 98.9 F 77 18 137/77 H Room Air 07/24/24 13:47 07/24/24 13:47 07/24/24 13:47 07/24/24 13:47 07/22/24 13:36 Oxygen Delivery Method Room Air Weight: 230 lb Body Mass Index (BMI) 34.9 Lab / Micro Data Labs: Laboratory Results - last 24 hr 07/24/24 12:48: POC Glucose 165 H 07/25/24 10:48: POC Glucose 215 H Exam Physical Exam Const alert, oriented x3 and no apparent distress General Appearance: cooperative, comfortable and well kempt HEENT normocephalic, head/scalp atraumatic and hearing grossly normal bilaterally Eyes EOMs intact bilaterally Neck full ROM and supple General: normal visual inspection Resp normal respiratory effort Effort and Inspection: able to speak in complete sentences Neuro oriented x3, CN's II-XII intact bilaterally and moves all extremities Psych mental status grossly normal, thought process normal, cooperative and affect normal Nursing Assessment and Debridement Post-Debridement Measurements and Additional Note: Post-Debridement Measurements/Treatment - Nurse 1 - General Ulcer Assessment Start: 07/15/24 14:12 Freq: Status: Active Protocol: WC.LOWEXT Activity Type Activity Date Activity User E-sign Co-sign Detail Recorded Client Recorded Date Recorded By Document 07/22/24 13:36 [id number] 07/22/24 13:45 07/22/24 13:36 - Today's Visit Information Type of service Follow-up Visit (Physician/HIDE WASHER ) Arrival Mode Ambulatory,Cane Patient Identification Verified (Name & Yes ) Height and Weight Body Mass Index (BMI) 34.9 BMI Classification Obese Vital Signs Temperature (97.8 F-99.1 F) 98.2 F Temperature Source Temporal Pulse Rate (60-100) 81 Pulse Location Monitor Respiratory Rate (12-18) 16 Respiratory rate source Monitor Oxygen Delivery Method Room Air Blood Pressure (90/60-120/80) 134/78 H Blood Pressure Mean (mm Hg) 96 Source Monitor Position Sitting Blood Pressure Location Left Arm History Since Last Visit- (Skip if this is Patient's initial visit) Have you changed medications since your No last visit? Any new allergies or adverse reactions No Had a fall/change in ADL's that may No increase risk of falls Signs or symptoms of abuse and/or No neglect since last visit Have you been in the hospital since your No last visit? Has dressing in place as prescribed Yes Has compression in place as prescribed Yes Has offloadiing in place as prescribed N/A Experienced any changes in pain level or No management Left Footwear Regular Shoe Right Footwear Regular Shoe Pain Scale: 0-10 Numeric Is Patient Pain Free? Yes WC - Nurse 1 - General Ulcer Measurement Start: 07/15/24 14:12 Freq: Status: Active Protocol: Activity Type Activity Date Activity User E-sign Co-sign Detail Recorded Client Recorded Date Recorded By Document 07/22/24 13:36 DOMO [id number] 07/22/24 13:45 DOMO 07/22/24 13:36 Wound Center Nurse 1 5. L post ankle/ Achilles repair post-op -Current Size (cm) - Length 6.3 -Current Size (cm) - Width 2 -Current Size (cm) - Depth 0.3 -Total Square Cm 12.6 -Date of Last Picture (Recall this 07/22/24 field) -Exudate Amt Medium -Exudate Type Serosanguineous -Wound Margin Distinct, Outline Attached -Granulation Amt Large (67-100%) -Granulation Quality Red -Texture (Yanely-wound Skin Appearance) Assessed -Moisture (Yanely-wound Skin Appearance) Assessed, Maceration -Color (Yanely-wound Skin Appearance) Assessed -Temperature (Yanely-wound Skin No Abnormality Appearance) (Pt Warm) -Ulcer Cleansing Soap and Water -Foul Odor after Cleansing No -Anesthetic Used 5% Lidocaine Gel WC - Nurse 2 - General Ulcer CM Notes Start: 07/15/24 14:12 Freq: Status: Active Protocol: Activity Type Activity Date Activity User E-sign Co-sign Detail Recorded Client Recorded Date Recorded By Document 07/22/24 13:51 GONZALO [id number] 07/22/24 13:58 GONZALO 07/22/24 13:51 Wound Center Nurse 2 -Correct Patient No -Correct Side, Site, Position No -Correct Procedure No -Procedure Performed No -Wound/Ulcer Outcome Not Healed -Bleeding Controlled with Pressure -Treatment Response Procedure Tolerated Well -Offloading No Pain Scale: 0-10 Numeric Is Patient Pain Free? Yes WC - Nurse 3 - General Ulcer D/C NN Start: 07/15/24 14:12 Freq: Status: Active Protocol: Activity Type Activity Date Activity User E-sign Co-sign Detail Recorded Client Recorded Date Recorded By Document 07/22/24 14:25 DL [id number] 07/22/24 14:27 DL 07/22/24 14:25 Wound Care Center Nurse 3 5. L post ankle/ Achilles repair post-op -Ulcer Cleansing Soap and Water -Foul Odor after Cleansing No -Negative Pressure Wound Therapy Continue -Setting (mmHg) 125 -Negative Pressure is Continuous -Other Covering mustapha -NPWT Application Charge NPWT </= 50 sq cm ($) left leg -Compression Wrap Mustapha Wrap Treatment Response Procedure Tolerated Well Pain Scale: 0-10 Numeric Is Patient Pain Free? Yes WC - Visit Discharge Discharge Condition Stable Ambulatory Status Ambulatory Transportation Private Auto Facility Type Home Health Orders Sent Yes Charges/Coding Wound Center CF Procedures HBO Supervision: [id number] Hyperbaric Oxygen; supervision Assessment/Plan Assessment/Plan (1) Skin graft (allograft) (autograft) failure: CODE(S): T86.821 - Skin graft (allograft) (autograft) failure (2) Wound of left ankle: CODE(S): S91.002A - Unspecified open wound, left ankle, initial encounter QUALIFIERS: Encounter type: subsequent encounter Qualified Code(s): S91.002D - Unspecified open wound, left ankle, subsequent encounter (3) Type 2 diabetes mellitus with hyperglycemia: CODE(S): E11.65 - Type 2 diabetes mellitus with hyperglycemia QUALIFIERS: Diabetes mellitus buttermaker continuous churn insulin use: without buttermaker continuous churn use Qualified Code(s): E11.65 - Type 2 diabetes mellitus with hyperglycemia PLAN: Plan The patient tolerated hyperbaric oxygen therapy well, which will be continued as per her medical plan. This note was generated with [employer] software. It may contain incorrect words, spelling, and punctuation that were not noted in checking the note before signing.
[2024-07-25 13:27] LABS: Bedside Glucose 166 mg/dL (74-106)
[2024-07-25 13:45] VITALS: BP 132/68; BP 134/71; PULSE 68; PULSE 84; RESP 17; TEMP 36.6; TEMP 36.7
[2024-07-26 10:15] VITALS: BP 151/75; PULSE 76; RESP 17; TEMP 35.7; BMI 34.9
[2024-07-26 10:48] LABS: Bedside Glucose 192 mg/dL (74-106)
[2024-07-26 11:48] VITALS: BP 140/72; BP 151/75; PULSE 69; PULSE 76; RESP 17; RESP 18; TEMP 35.7; TEMP 36.5
[2024-07-26 13:00] LABS: Bedside Glucose 196 mg/dL (74-106)
--- NOTE | 2024-07-26 13:48 | PCM.HBO.PN ---
History of Present Illness Date of Service: 07/26/24 Chief Complaint: Surgical dehiscence with exposure of the Achilles tendon left lower extremity; Allograft failure History of Wound: 59 y/o female with DM type II with peripheral polyneuropathy, peripheral vascular disease, asthma, morbid obesity, HTN, and hyperlipidemia presented to the [facility] for continued care of surgical dehiscence of her posterior left lower extremity with exposure of the Achilles tendon. The patient underwent surgical intervention to correct calcaneal gait with plantar ulceration of the left heel on 01/26/2024. At that time of surgery she was found to have tendo Achilles tear to the left lower extremity resulting in a calcaneal gait. Tendon was debrided and a shortening of the tendo Achilles was performed in addition to FHL tendon transfer. 3 weeks later patient had fallen placing weight to the foot resulting in a tear and dehiscence of the surgical site with exposure of the Achilles tendon. She was returned to the OR for debridement on 02/22/2024 and wound VAC was applied over ulcerative area. She did have PICC line and completed 6 weeks of IV antibiotics during stay in the transitional care unit. She completed IV antibiotic 04/04/2024 PICC line was pulled and she was discharged from the transitional care unit to home. Surgery by Dr. Solano on 06/10/24 for Split-thickness skin grafting from the left lateral thigh to the left Achilles tendon ankle wound 7 x [address] Solano on 05/20/23 for Excision of left posterior ankle wound, including biofilm, subcutaneous tissue, fascia, and tendon, 7 x 3 cm and Irrigating wound VAC, vera flow, not disposable AND 05/22/24 - Excision of left posterior ankle wound, including biofilm, subcutaneous tissue, fascia, and tendon and Placement of dermal substitute (Integra) and wound VAC placed. Operative culture 05/15/24 positive for MSSA and Anaerobic cocci. Treated with Doxy, cefdinir, and Flagyl. Patient underwent multiple debridements and eventual skin grafting on 11 June 2024. She has developed compromise of her skin graft. Progress of Wound: Progress: Today represents her 15th hyperbaric oxygen therapy treatment. She has been scheduled for 20 sessions. Tolerance of hyperbaric oxygen therapy: Hyperbaric oxygen treatment was administered as the per the facility's protocol. 100% oxygen at 2 ALEYDA for 90 minutes without air breaks. The patient tolerated the hyperbaric oxygen therapy well without complications or complaints. Upon emergence from the hyperbaric chamber, the patient's vital signs remained stable. Pre and post blood sugars as documented. She was discharged in stable condition. Objective Data Objective Data Vital Signs: Vital Signs Temp Pulse Resp BP O2 Del Method 96.2 F L 76 17 151/75 H Room Air 07/26/24 11:48 07/26/24 11:48 07/26/24 11:48 07/26/24 11:48 07/22/24 13:36 Oxygen Delivery Method Room Air Weight: 104.326 kg Body Mass Index (BMI) 34.9 Lab / Micro Data Labs: Laboratory Results - last 24 hr 07/26/24 10:26: POC Glucose 192 H 07/26/24 12:38: POC Glucose 196 H Exam Physical Exam Const alert, oriented x3 and no apparent distress Psych mental status grossly normal, thought process normal, cooperative, affect normal and speech normal Nursing Assessment and Debridement Post-Debridement Measurements and Additional Note: Post-Debridement Measurements/Treatment - Nurse 1 - General Ulcer Assessment Start: 07/15/24 14:12 Freq: Status: Active Protocol: WC.LOWEXT Activity Type Activity Date Activity User E-sign Co-sign Detail Recorded Client Recorded Date Recorded By Document 07/26/24 10:15 ML [id number] 07/26/24 10:19 ML 07/26/24 10:15 - Today's Visit Information Type of service Nurse-only Visit Arrival Mode Ambulatory Transfer Assistance None Patient Identification Verified (Name & Yes ) Patient Requires Transmission-Based No Precautions Height and Weight Body Mass Index (BMI) 34.9 BMI Classification Obese Vital Signs Temperature (97.8 F-99.1 F) 96.2 F L Temperature Source Temporal Pulse Rate (60-100) 76 Pulse Location Monitor Respiratory Rate (12-18) 17 Respiratory rate source Observation Blood Pressure (90/60-120/80) 151/75 H Blood Pressure Mean (mm Hg) 100 Source Monitor Position Sitting Blood Pressure Location Right Arm History Since Last Visit- (Skip if this is Patient's initial visit) Have you changed medications since your No last visit? Any new allergies or adverse reactions No Had a fall/change in ADL's that may No increase risk of falls Signs or symptoms of abuse and/or No neglect since last visit Have you been in the hospital since your No last visit? Has dressing in place as prescribed Yes Has compression in place as prescribed No Has offloadiing in place as prescribed N/A Experienced any changes in pain level or No management Pain Scale: 0-10 Numeric Is Patient Pain Free? Yes WC - Nurse 3 - General Ulcer D/C NN Start: 07/15/24 14:12 Freq: Status: Active Protocol: Activity Type Activity Date Activity User E-sign Co-sign Detail Recorded Client Recorded Date Recorded By Document 07/26/24 10:15 ML [id number] 07/26/24 10:19 ML 07/26/24 10:15 Wound Care Center Nurse 3 5. L post ankle/ Achilles repair post-op -NPWT Application Charge NPWT </= 50 sq cm ($) -Wound Comment(s) Mustapha to be applied after HBO tx. Vital Signs Temperature (97.8 F-99.1 F) 96.2 F L Temperature Source Temporal Pulse Rate (60-100) 76 Pulse Location Monitor Respiratory Rate (12-18) 17 Respiratory rate source Observation Blood Pressure (90/60-120/80) 151/75 H Blood Pressure Mean (mm Hg) 100 Source Monitor Position Sitting Blood Pressure Location Right Arm Pain Scale: 0-10 Numeric Is Patient Pain Free? Yes Assessment/Plan Assessment/Plan (1) Skin graft (allograft) (autograft) failure: CODE(S): T86.821 - Skin graft (allograft) (autograft) failure (2) Wound of left ankle: CODE(S): S91.002A - Unspecified open wound, left ankle, initial encounter QUALIFIERS: Encounter type: subsequent encounter Qualified Code(s): S91.002D - Unspecified open wound, left ankle, subsequent encounter (3) Type 2 diabetes mellitus with hyperglycemia: CODE(S): E11.65 - Type 2 diabetes mellitus with hyperglycemia QUALIFIERS: Diabetes mellitus senior living insulin use: without senior living use Qualified Code(s): E11.65 - Type 2 diabetes mellitus with hyperglycemia PLAN: Plan The patient tolerated hyperbaric oxygen therapy well, which will be continued as per her medical plan. This note was generated with [employer] software. It may contain incorrect words, spelling, and punctuation that were not noted in checking the note before signing.
[2024-07-29 10:34] VITALS: BP 121/67; BP 131/70; PULSE 63; PULSE 70; RESP 18; TEMP 36.5
[2024-07-29 10:35] LABS: Bedside Glucose 187 mg/dL (74-106)
--- NOTE | 2024-07-29 11:23 | PCM.HBO.PN ---
History of Present Illness Date of Service: 07/29/24 Chief Complaint: Surgical dehiscence with exposure of the Achilles tendon left lower extremity; Allograft failure History of Wound: 59 y/o female with DM type II with peripheral polyneuropathy, peripheral vascular disease, asthma, morbid obesity, HTN, and hyperlipidemia presented to the [facility] for continued care of surgical dehiscence of her posterior left lower extremity with exposure of the Achilles tendon. The patient underwent surgical intervention to correct calcaneal gait with plantar ulceration of the left heel on 01/26/2024. At that time of surgery she was found to have tendo Achilles tear to the left lower extremity resulting in a calcaneal gait. Tendon was debrided and a shortening of the tendo Achilles was performed in addition to FHL tendon transfer. 3 weeks later patient had fallen placing weight to the foot resulting in a tear and dehiscence of the surgical site with exposure of the Achilles tendon. She was returned to the OR for debridement on 02/22/2024 and wound VAC was applied over ulcerative area. She did have PICC line and completed 6 weeks of IV antibiotics during stay in the transitional care unit. She completed IV antibiotic 04/04/2024 PICC line was pulled and she was discharged from the transitional care unit to home. Surgery by Dr. Solano on 06/10/24 for Split-thickness skin grafting from the left lateral thigh to the left Achilles tendon ankle wound 7 x [address] Solano on 05/20/23 for Excision of left posterior ankle wound, including biofilm, subcutaneous tissue, fascia, and tendon, 7 x 3 cm and Irrigating wound VAC, vera flow, not disposable AND 05/22/24 - Excision of left posterior ankle wound, including biofilm, subcutaneous tissue, fascia, and tendon and Placement of dermal substitute (Integra) and wound VAC placed. Operative culture 05/15/24 positive for MSSA and Anaerobic cocci. Treated with Doxy, cefdinir, and Flagyl. Patient underwent multiple debridements and eventual skin grafting on 11 June 2024. She has developed compromise of her skin graft. Progress of Wound: Progress: Today represents her 16th hyperbaric oxygen therapy treatment. She has been scheduled for 20 sessions. Tolerance of hyperbaric oxygen therapy: Hyperbaric oxygen treatment was administered as the per the facility's protocol. 100% oxygen at 2 ALEYDA for 90 minutes without air breaks. The patient tolerated the hyperbaric oxygen therapy well without complications or complaints. Upon emergence from the hyperbaric chamber, the patient's vital signs remained stable. Pre and post blood sugars as documented. She was discharged in stable condition. Objective Data Objective Data Vital Signs: Vital Signs Temp Pulse Resp BP O2 Del Method 97.7 F L 70 18 131/70 H Room Air 07/29/24 10:34 07/29/24 10:34 07/29/24 10:34 07/29/24 10:34 07/22/24 13:36 Oxygen Delivery Method Room Air Weight: 230 lb Body Mass Index (BMI) 34.9 Lab / Micro Data Labs: Laboratory Results - last 24 hr 07/29/24 10:16: POC Glucose 187 H Exam Physical Exam Const alert, oriented x3 and no apparent distress General Appearance: cooperative HEENT normocephalic and TM's normal bilaterally Head and Scalp: atraumatic Eyes General Eye: normal appearance of both eyes Resp normal respiratory effort, no use of accessory muscles and clear to auscultation bilaterally Effort and Inspection: able to speak in complete sentences Cardio regular rate and regular rhythm Psych affect normal Charges/Coding Wound Center CF Procedures HBO Supervision: [id number] Hyperbaric Oxygen; supervision Assessment/Plan Assessment/Plan (1) Skin graft (allograft) (autograft) failure: CODE(S): T86.821 - Skin graft (allograft) (autograft) failure (2) Wound of left ankle: CODE(S): S91.002A - Unspecified open wound, left ankle, initial encounter QUALIFIERS: Encounter type: subsequent encounter Qualified Code(s): S91.002D - Unspecified open wound, left ankle, subsequent encounter (3) Type 2 diabetes mellitus with hyperglycemia: CODE(S): E11.65 - Type 2 diabetes mellitus with hyperglycemia QUALIFIERS: Diabetes mellitus detention insulin use: without detention use Qualified Code(s): E11.65 - Type 2 diabetes mellitus with hyperglycemia PLAN: Plan The patient tolerated hyperbaric oxygen therapy well, which will be continued as per her medical plan.
[2024-07-29 12:42] LABS: Bedside Glucose 193 mg/dL (74-106)
--- NOTE | 2024-07-29 13:20 | PCM.WC.PN ---
History of Present Illness Date of Service: 07/29/24 Chief Complaint: Surgical dehiscence with exposure of the Achilles tendon left lower extremity; Allograft failure History of Wound: 59 y/o female with DM type II with peripheral polyneuropathy, peripheral vascular disease, asthma, morbid obesity, HTN, and hyperlipidemia presented [facility] for continued care of surgical dehiscence of her posterior left lower extremity with exposure of the Achilles tendon. The patient underwent surgical intervention to correct calcaneal gait with plantar ulceration of the left heel on 01/26/2024. At that time of surgery she was found to have tendo Achilles tear to the left lower extremity resulting in a calcaneal gait. Tendon was debrided and a shortening of the tendo Achilles was performed in addition to FHL tendon transfer. 3 weeks later patient had fallen placing weight to the foot resulting in a tear and dehiscence of the surgical site with exposure of the Achilles tendon. She was returned to the OR for debridement on 02/22/2024 and wound VAC was applied over ulcerative area. She did have PICC line and completed 6 weeks of IV antibiotics during stay in the transitional care unit. She completed IV antibiotic 04/04/2024 PICC line was pulled and she was discharged from the transitional care unit to home. Surgery by Dr. Solano on 06/10/24 for Split-thickness skin grafting from the left lateral thigh to the left Achilles tendon ankle wound 7 x [address] Solano on 05/20/23 for Excision of left posterior ankle wound, including biofilm, subcutaneous tissue, fascia, and tendon, 7 x 3 cm and Irrigating wound VAC, vera flow, not disposable AND 05/22/24 - Excision of left posterior ankle wound, including biofilm, subcutaneous tissue, fascia, and tendon and Placement of dermal substitute (Integra) and wound VAC placed. Operative culture 05/15/24 positive for MSSA and Anaerobic cocci. Treated with Doxy, cefdinir, and Flagyl. Patient underwent multiple debridements and eventual skin grafting on 11 June 2024. She has developed compromise of her skin graft. Progress of Wound: Progress: Today represents her 16th hyperbaric oxygen therapy treatment. She has been scheduled for 20 sessions. Tolerance of hyperbaric oxygen therapy: Hyperbaric oxygen treatment was administered as the per the facility's protocol. 100% oxygen at 2 ALEYDA for 90 minutes without air breaks. The patient tolerated the hyperbaric oxygen therapy well without complications or complaints. Upon emergence from the hyperbaric chamber, the patient's vital signs remained stable. Pre and post blood sugars as documented. She was discharged in stable condition. Subjective Subjective Has been tolerating HBOT and is on treatment 15 today. Reports excellent VAC changes by nursing. No new complaints. Walking well. Reports good sugar control. She's still using a vape pen. Objective Data Objective Data Vital Signs: Vital Signs Temp Pulse Resp BP O2 Del Method 97.7 F L 70 18 131/70 H Room Air 07/29/24 10:34 07/29/24 10:34 07/29/24 10:34 07/29/24 10:34 07/22/24 13:36 Oxygen Delivery Method Room Air Weight: 230 lb Body Mass Index (BMI) 34.9 Lab / Micro Data Labs: Laboratory Results - last 24 hr 07/29/24 10:16: POC Glucose 187 H 07/29/24 12:24: POC Glucose 193 H Charges/Coding Procedures Integumentary [id number]: 89103 Global Visit Physical Exam Narrative Near 100%skin graft compromise/loss (would benefit from hyperbaric oxygen therapy). No signs of infection. No exposed tendon at this time. 08 JUL 2024 22 JUL 2024 29 Jul 2024: Wound is granulating since hyperbaric oxygen started. Also is smaller at 6 cm by 1.6 cm Const alert and oriented x3 General Appearance: cooperative HEENT normocephalic HEENT Narrative: Tympanic membranes were not visualized, too much cerumen Neck full ROM Resp normal respiratory effort Auscultation: clear to auscultation bilaterally Cardio regular rate, regular rhythm, S1 normal heart sound, S2 normal heart sound, no murmurs, no rub, no gallops and no clicks Extremity Extremity Narrative: Left thigh donor site healing well, xeroform reapplied (XF was not stuck down on wound bed and didn't dry out). Debridement Note Debridement Note Post-Debridement Measurements and Additional Note: Post-Debridement Measurements/Treatment MILADY - Nurse 1 - General Ulcer Assessment Start: 07/15/24 14:12 Freq: Status: Active Protocol: BUSTER Activity Type Activity Date Activity User E-sign Co-sign Detail Recorded Client Recorded Date Recorded By Document 07/22/24 13:36 KW [id number] 07/22/24 13:45 KW Document 07/26/24 10:15 ML [id number] 07/26/24 10:19 ML 07/22/24 07/26/24 13:36 10:15 - Today's Visit Information Type of service Follow-up Visit Nurse-only (Physician/PARTNERSHIP MANAGER Visit ) Arrival Mode Ambulatory,Cane Ambulatory Transfer Assistance None Patient Identification Verified (Name & Yes Yes ) Patient Requires Transmission-Based No Precautions Height and Weight Body Mass Index (BMI) 34.9 34.9 BMI Classification Obese Obese Vital Signs Temperature (97.8 F-99.1 F) 98.2 F 96.2 F L Temperature Source Temporal Temporal Pulse Rate (60-100) 81 76 Pulse Location Monitor Monitor Respiratory Rate (12-18) 16 17 Respiratory rate source Monitor Observation Oxygen Delivery Method Room Air Blood Pressure (90/60-120/80) 134/78 H 151/75 H Blood Pressure Mean (mm Hg) 96 100 Source Monitor Monitor Position Sitting Sitting Blood Pressure Location Left Arm Right Arm History Since Last Visit- (Skip if this is Patient's initial visit) Have you changed medications since your No No last visit? Any new allergies or adverse reactions No No Had a fall/change in ADL's that may No No increase risk of falls Signs or symptoms of abuse and/or No No neglect since last visit Have you been in the hospital since your No No last visit? Has dressing in place as prescribed Yes Yes Has compression in place as prescribed Yes No Has offloadiing in place as prescribed N/A N/A Experienced any changes in pain level or No No management Left Footwear Regular Shoe Right Footwear Regular Shoe Pain Scale: 0-10 Numeric Is Patient Pain Free? Yes Yes - Nurse 1 - General Ulcer Measurement Start: 07/15/24 14:12 Freq: Status: Active Protocol: Activity Type Activity Date Activity User E-sign Co-sign Detail Recorded Client Recorded Date Recorded By Document 07/22/24 13:36 KW [id number] 07/22/24 13:45 KW 07/22/24 13:36 Wound Center Nurse 1 5. L post ankle/ Achilles repair post-op -Current Size (cm) - Length 6.3 -Current Size (cm) - Width 2 -Current Size (cm) - Depth 0.3 -Total Square Cm 12.6 -Date of Last Picture (Recall this 07/22/24 field) -Exudate Amt Medium -Exudate Type Serosanguineous -Wound Margin Distinct, Outline Attached -Granulation Amt Large (67-100%) -Granulation Quality Red -Texture (Yanely-wound Skin Appearance) Assessed -Moisture (Yanely-wound Skin Appearance) Assessed, Maceration -Color (Yanely-wound Skin Appearance) Assessed -Temperature (Yanely-wound Skin No Abnormality Appearance) (Pt Warm) -Ulcer Cleansing Soap and Water -Foul Odor after Cleansing No -Anesthetic Used 5% Lidocaine Gel WC - Nurse 2 - General Ulcer CM Notes Start: 07/15/24 14:12 Freq: Status: Active Protocol: Activity Type Activity Date Activity User E-sign Co-sign Detail Recorded Client Recorded Date Recorded By Document 07/22/24 13:51 [id number] 07/22/24 13:58 07/22/24 13:51 Wound Center Nurse 2 -Correct Patient No -Correct Side, Site, Position No -Correct Procedure No -Procedure Performed No -Wound/Ulcer Outcome Not Healed -Bleeding Controlled with Pressure -Treatment Response Procedure Tolerated Well -Offloading No Pain Scale: 0-10 Numeric Is Patient Pain Free? Yes WC - Nurse 3 - General Ulcer D/C NN Start: 07/15/24 14:12 Freq: Status: Active Protocol: Activity Type Activity Date Activity User E-sign Co-sign Detail Recorded Client Recorded Date Recorded By Document 07/16/24 14:00 JF [id number] 07/16/24 14:02 JF Document 07/22/24 14:25 DL [id number] 07/22/24 14:27 DL Edit Result 07/22/24 14:25 DL (1) [id number] 07/23/24 13:55 KW Document 07/26/24 10:15 ML [id number] 07/26/24 10:19 ML (1) 5. L post ankle/ Achilles repair post-op - NPWT Application Charge NPWT & Debridement => NPWT </= 50 sq cm (nc) => ($) 07/16/24 07/22/24 07/26/24 14:00 14:25 10:15 Wound Care Center Nurse 3 5. L post ankle/ Achilles repair post-op -Ulcer Cleansing Soap and Water Soap and Water -Foul Odor after Cleansing No -Negative Pressure Wound Therapy Continue Continue -Setting (mmHg) 125 125 -Negative Pressure is Continuous Continuous -Other Covering mustapha -NPWT Application Charge NPWT </= 50 sq NPWT </= 50 sq NPWT </= 50 sq cm ($) cm ($) cm ($) -Wound Comment(s) Mustapha to be applied after HBO tx. left leg -Compression Wrap Mustapha Wrap Mustapha Wrap Treatment Response Procedure Tolerated Well Vital Signs Temperature (97.8 F-99.1 F) 96.2 F L Temperature Source Temporal Pulse Rate (60-100) 76 Pulse Location Monitor Respiratory Rate (12-18) 17 Respiratory rate source Observation Blood Pressure (90/60-120/80) 151/75 H Blood Pressure Mean (mm Hg) 100 Source Monitor Position Sitting Blood Pressure Location Right Arm Pain Scale: 0-10 Numeric Is Patient Pain Free? Yes Yes Yes WC - Visit Discharge Discharge Condition Stable Stable Ambulatory Status Ambulatory,Cane Ambulatory Transportation Private Auto Private Auto Medication Reconcilliation completed & Yes provided to patient/care provider Clinical Summary of Care Provided Yes Facility Type Home Health Orders Sent Yes Assessment/Plan Assessment/Plan (1) Skin graft (allograft) (autograft) failure: CODE(S): T86.821 - Skin graft (allograft) (autograft) failure (2) Wound of left ankle: CODE(S): S91.002A - Unspecified open wound, left ankle, initial encounter QUALIFIERS: Encounter type: subsequent encounter Qualified Code(s): S91.002D - Unspecified open wound, left ankle, subsequent encounter PLAN: Plan Significant improvements 2/2 HBO therapy (helping to improve granulation and the overall health of the wound bed). Plan for skin grafting in the OR (repeat attempt in setting of healthier wound bed) Continue HBOT
[2024-07-29 13:26] VITALS: BP 134/72; PULSE 68; RESP 16; TEMP 36.2; BMI 34.9
[2024-07-30 10:33] LABS: Bedside Glucose 180 mg/dL (74-106)
[2024-07-30 12:47] LABS: Bedside Glucose 171 mg/dL (74-106)
[2024-07-30 13:20] VITALS: BP 136/67; BP 140/84; PULSE 66; PULSE 68; RESP 15; RESP 16; TEMP 36.6; TEMP 36.7
--- NOTE | 2024-07-30 13:54 | WC ---
PHOTO 07/29/24 Gertrudis GEE
[2024-07-31 10:07] LABS: Bedside Glucose 149 mg/dL (74-106)
[2024-07-31 12:08] VITALS: BP 113/70; BP 156/73; PULSE 64; PULSE 68; RESP 14; RESP 15; TEMP 36.6
[2024-07-31 12:20] LABS: Bedside Glucose 164 mg/dL (74-106)
--- NOTE | 2024-07-31 12:29 | PCM.HBO.PN ---
History of Present Illness Date of Service: 07/31/24 Chief Complaint: Surgical dehiscence with exposure of the Achilles tendon left lower extremity; Allograft failure History of Wound: 59 y/o female with DM type II with peripheral polyneuropathy, peripheral vascular disease, asthma, morbid obesity, HTN, and hyperlipidemia presented to the [facility] for continued care of surgical dehiscence of her posterior left lower extremity with exposure of the Achilles tendon. The patient underwent surgical intervention to correct calcaneal gait with plantar ulceration of the left heel on 01/26/2024. At that time of surgery she was found to have tendo Achilles tear to the left lower extremity resulting in a calcaneal gait. Tendon was debrided and a shortening of the tendo Achilles was performed in addition to FHL tendon transfer. 3 weeks later patient had fallen placing weight to the foot resulting in a tear and dehiscence of the surgical site with exposure of the Achilles tendon. She was returned to the OR for debridement on 02/22/2024 and wound VAC was applied over ulcerative area. She did have PICC line and completed 6 weeks of IV antibiotics during stay in the transitional care unit. She completed IV antibiotic 04/04/2024 PICC line was pulled and she was discharged from the transitional care unit to home. Surgery by Dr. Solano on 06/10/24 for Split-thickness skin grafting from the left lateral thigh to the left Achilles tendon ankle wound 7 x [address] Solano on 05/20/23 for Excision of left posterior ankle wound, including biofilm, subcutaneous tissue, fascia, and tendon, 7 x 3 cm and Irrigating wound VAC, vera flow, not disposable AND 05/22/24 - Excision of left posterior ankle wound, including biofilm, subcutaneous tissue, fascia, and tendon and Placement of dermal substitute (Integra) and wound VAC placed. Operative culture 05/15/24 positive for MSSA and Anaerobic cocci. Treated with Doxy, cefdinir, and Flagyl. Patient underwent multiple debridements and eventual skin grafting on 11 June 2024. She has developed compromise of her skin graft. Progress of Wound: Progress: Today represents her 18th hyperbaric oxygen therapy treatment. She has been scheduled for 20 sessions. Tolerance of hyperbaric oxygen therapy: Hyperbaric oxygen treatment was administered as the per the facility's protocol. 100% oxygen at 2 ALEYDA for 90 minutes without air breaks. The patient tolerated the hyperbaric oxygen therapy well without complications or complaints. Upon emergence from the hyperbaric chamber, the patient's vital signs remained stable. Pre and post blood sugars as documented. She was discharged in stable condition. Subjective Subjective Patient has no concerns doing well Objective Data Objective Data Vital signs are stable patient was admitted and discharged with no distress or problems Vital Signs: Vital Signs Temp Pulse Resp BP O2 Del Method 97.9 F 64 14 156/73 H Room Air 07/31/24 12:08 07/31/24 12:08 07/31/24 12:08 07/31/24 12:08 07/29/24 13:26 Oxygen Delivery Method Room Air Weight: 230 lb Body Mass Index (BMI) 34.9 Lab / Micro Data Attestation: I reviewed the patient's lab results. Labs: Laboratory Results - last 24 hr 07/30/24 12:25: POC Glucose 171 H 07/31/24 09:49: POC Glucose 149 H 07/31/24 11:56: POC Glucose 164 H Exam Physical Exam Const alert, oriented x3, no apparent distress and well nourished General Appearance: cooperative and well developed HEENT normocephalic and EAC's normal Head and Scalp: atraumatic Eyes EOMs intact bilaterally Neck supple and no JVD General: trachea midline Resp normal respiratory effort and no use of accessory muscles Effort and Inspection: able to speak in complete sentences Psych affect normal Appearance: grossly normal and well kempt Speech: normal speech Nursing Assessment and Debridement Post-Debridement Measurements and Additional Note: Post-Debridement Measurements/Treatment - Nurse 1 - General Ulcer Assessment Start: 07/15/24 14:12 Freq: Status: Active Protocol: MILADY.ASHLEE Activity Type Activity Date Activity User E-sign Co-sign Detail Recorded Client Recorded Date Recorded By Document 07/29/24 13:26 [facility] [id number] 07/29/24 13:33 [facility] 07/29/24 13:26 - Today's Visit Information Type of service Follow-up Visit (Physician/KEY PERSON ) Arrival Mode Ambulatory,Cane Transfer Assistance None Patient Identification Verified (Name & Yes ) Patient Requires Transmission-Based No Precautions Height and Weight Body Mass Index (BMI) 34.9 BMI Classification Obese Vital Signs Temperature (97.8 F-99.1 F) 97.1 F L Temperature Source Temporal Pulse Rate (60-100) 68 Pulse Location Monitor Respiratory Rate (12-18) 16 Respiratory rate source Observation Oxygen Delivery Method Room Air Blood Pressure (90/60-120/80) 134/72 H Blood Pressure Mean (mm Hg) 92 Source Monitor Position Sitting Blood Pressure Location Left Arm History Since Last Visit- (Skip if this is Patient's initial visit) Have you changed medications since your No last visit? Any new allergies or adverse reactions No Had a fall/change in ADL's that may No increase risk of falls Signs or symptoms of abuse and/or No neglect since last visit Have you been in the hospital since your No last visit? Has dressing in place as prescribed Yes Has compression in place as prescribed N/A Has offloadiing in place as prescribed N/A Experienced any changes in pain level or No management Left Footwear Regular Shoe Right Footwear Regular Shoe Pain Scale: 0-10 Numeric Is Patient Pain Free? Yes WC - Nurse 1 - General Ulcer Measurement Start: 07/15/24 14:12 Freq: Status: Active Protocol: Activity Type Activity Date Activity User E-sign Co-sign Detail Recorded Client Recorded Date Recorded By Document 07/29/24 13:26 [facility] [id number] 07/29/24 13:33 [facility] 07/29/24 13:26 Wound Center Nurse 1 5. L post ankle/ Achilles repair post-op -Combined with other wound No -Current Size (cm) - Length 6.2 -Current Size (cm) - Width 1.6 -Current Size (cm) - Depth 0.1 -Total Square Cm 9.92 -Date of Last Picture (Recall this 07/29/24 field) -Photo Taken Yes -Epithelialization Small 1-33% -Tunneling No -Undermining/Tunneling No -Circular Undermining No -Exudate Amt Medium -Exudate Type Serosanguineous -Wound Margin Distinct, Outline Attached -Granulation Amt Large (67-100%) -Granulation Quality Red -Texture (Yanely-wound Skin Appearance) Assessed, Scarring -Moisture (Yanely-wound Skin Appearance) Assessed -Color (Yanely-wound Skin Appearance) Assessed -Temperature (Yanely-wound Skin No Abnormality Appearance) (Pt Warm) -Tenderness on Palpation (Yanely-wound No Skin Appearance) -Ulcer Cleansing Soap and Water -Foul Odor after Cleansing No -Anesthetic Used 5% Lidocaine Gel WC - Nurse 2 - General Ulcer CM Notes Start: 07/15/24 14:12 Freq: Status: Active Protocol: Activity Type Activity Date Activity User E-sign Co-sign Detail Recorded Client Recorded Date Recorded By Document 07/29/24 14:01 [email or web address] [id number] 07/29/24 14:04 GONZALO 07/29/24 14:01 Wound Center Nurse 2 -Time 14:01 -Correct Patient Yes -Correct Side, Site, Position Yes -Correct Procedure Yes -Procedure Performed Yes -Type of Procedure Debridement -Clinical Debridement Subcutaneous -Tissue Removed Subcutaneous -Post Debridement (cm) - Length 6.0 -Post Debridement (cm) - Width 1.6 -Post Debridement (cm) - Depth 0.1 -Total Square (Post) (cm) 9.60 -Area of Debridement (cm) - Length 6.0 -Area of Debridement (cm) - Width 1.6 -Total Square (Area) (cm) 9.60 -Tunneling No -Undermining/Tunneling No -Circular Undermining No -Wound/Ulcer Outcome Not Healed -Ulcer Cleansing Rinsed/ Irrigated with Saline -Foul Odor after Cleansing No -Bioengineered Tissue No -Bleeding Controlled with Pressure -Treatment Response Procedure Tolerated Well -Offloading No -Debridement - Subq, 1st 20sq cm Yes Pain Scale: 0-10 Numeric Is Patient Pain Free? Yes - Nurse 3 - General Ulcer D/C NN Start: 07/15/24 14:12 Freq: Status: Active Protocol: Activity Type Activity Date Activity User E-sign Co-sign Detail Recorded Client Recorded Date Recorded By Document 07/29/24 14:11 [email or web address] [id number] 07/29/24 14:12 KW 07/29/24 14:11 Wound Care Center Nurse 3 5. L post ankle/ Achilles repair post-op -Negative Pressure Wound Therapy Continue -Setting (mmHg) 125 -Negative Pressure is Continuous -NPWT Application Charge NPWT & Debridement (nc ) left leg -Compression Wrap Mustapha Wrap Pain Scale: 0-10 Numeric Is Patient Pain Free? Yes Assessment/Plan Assessment/Plan (1) Skin graft (allograft) (autograft) failure: CODE(S): T86.821 - Skin graft (allograft) (autograft) failure (2) Wound of left ankle: CODE(S): S91.002A - Unspecified open wound, left ankle, initial encounter QUALIFIERS: Encounter type: subsequent encounter Qualified Code(s): S91.002D - Unspecified open wound, left ankle, subsequent encounter (3) Type 2 diabetes mellitus with hyperglycemia: CODE(S): E11.65 - Type 2 diabetes mellitus with hyperglycemia QUALIFIERS: Diabetes mellitus call center agent insulin use: without [place] use Qualified Code(s): E11.65 - Type 2 diabetes mellitus with hyperglycemia PLAN: Plan The patient appears to be tolerating hyperbaric oxygen therapy well. Hyperbaric oxygen therapy will continue as per the patient's medical plan. The patient is scheduled to return in 24 hours for her next hyperbaric oxygen treatment.
[2024-08-01 10:18] LABS: Bedside Glucose 135 mg/dL (74-106)
[2024-08-01 11:57] VITALS: BP 116/68; BP 147/82; PULSE 70; PULSE 72; RESP 16; TEMP 36.5; TEMP 36.7
--- NOTE | 2024-08-01 12:04 | PCM.HBO.PN ---
History of Present Illness Date of Service: 08/01/24 Chief Complaint: Surgical dehiscence with exposure of the Achilles tendon left lower extremity; Allograft failure History of Wound: 59 y/o female with DM type II with peripheral polyneuropathy, peripheral vascular disease, asthma, morbid obesity, HTN, and hyperlipidemia presented to [facility] for continued care of surgical dehiscence of her posterior left lower extremity with exposure of the Achilles tendon. The patient underwent surgical intervention to correct calcaneal gait with plantar ulceration of the left heel on 01/26/2024. At that time of surgery she was found to have tendo Achilles tear to the left lower extremity resulting in a calcaneal gait. Tendon was debrided and a shortening of the tendo Achilles was performed in addition to FHL tendon transfer. 3 weeks later patient had fallen placing weight to the foot resulting in a tear and dehiscence of the surgical site with exposure of the Achilles tendon. She was returned to the OR for debridement on 02/22/2024 and wound VAC was applied over ulcerative area. She did have PICC line and completed 6 weeks of IV antibiotics during stay in the transitional care unit. She completed IV antibiotic 04/04/2024 PICC line was pulled and she was discharged from the transitional care unit to home. Surgery by Dr. Solano on 06/10/24 for Split-thickness skin grafting from the left lateral thigh to the left Achilles tendon ankle wound 7 x [address] Solano on 05/20/23 for Excision of left posterior ankle wound, including biofilm, subcutaneous tissue, fascia, and tendon, 7 x 3 cm and Irrigating wound VAC, vera flow, not disposable AND 05/22/24 - Excision of left posterior ankle wound, including biofilm, subcutaneous tissue, fascia, and tendon and Placement of dermal substitute (Integra) and wound VAC placed. Operative culture 05/15/24 positive for MSSA and Anaerobic cocci. Treated with Doxy, cefdinir, and Flagyl. Patient underwent multiple debridements and eventual skin grafting on 11 June 2024. She has developed compromise of her skin graft. Progress of Wound: Progress: Today represents her hyperbaric oxygen therapy treatment. She has been scheduled for 20 sessions. Tolerance of hyperbaric oxygen therapy: Hyperbaric oxygen treatment was administered as per the facility's protocol. 100% oxygen at 2 ALEYDA for 90 minutes without air breaks. The patient tolerated the hyperbaric oxygen therapy well without complications or complaints. Upon emergence from the hyperbaric chamber, the patient's vital signs remained stable. Pre and post blood sugars as documented. She was discharged in stable condition. Objective Data Objective Data Vital Signs: Vital Signs Temp Pulse Resp BP O2 Del Method 97.9 F 64 14 156/73 H Room Air 07/31/24 12:08 07/31/24 12:08 07/31/24 12:08 07/31/24 12:08 07/29/24 13:26 Oxygen Delivery Method Room Air Weight: 230 lb Body Mass Index (BMI) 34.9 Lab / Micro Data Labs: Laboratory Results - last 24 hr 07/31/24 11:56: POC Glucose 164 H 08/01/24 10:00: POC Glucose 135 H Exam Physical Exam Const alert, oriented x3 and no apparent distress General Appearance: cooperative, comfortable and well kempt HEENT normocephalic, head/scalp atraumatic and hearing grossly normal bilaterally Tympanic Membrane: TM's normal bilaterally Eyes EOMs intact bilaterally Neck full ROM and supple General: normal visual inspection Resp normal respiratory effort Effort and Inspection: able to speak in complete sentences Neuro oriented x3, CN's II-XII intact bilaterally and moves all extremities Psych mental status grossly normal, thought process normal, cooperative and affect normal Nursing Assessment and Debridement Post-Debridement Measurements and Additional Note: Post-Debridement Measurements/Treatment - Nurse 1 - General Ulcer Assessment Start: 07/15/24 14:12 Freq: Status: Active Protocol: .LOWSERAT Activity Type Activity Date Activity User E-sign Co-sign Detail Recorded Client Recorded Date Recorded By Document 07/29/24 13:26 [facility] [id number] 07/29/24 13:33 [facility] 07/29/24 13:26 - Today's Visit Information Type of service Follow-up Visit (Physician/PRODUCT TESTER [employer] ) Arrival Mode Ambulatory,Cane Transfer Assistance None Patient Identification Verified (Name & Yes ) Patient Requires Transmission-Based No Precautions Height and Weight Body Mass Index (BMI) 34.9 BMI Classification Obese Vital Signs Temperature (97.8 F-99.1 F) 97.1 F L Temperature Source Temporal Pulse Rate (60-100) 68 Pulse Location Monitor Respiratory Rate (12-18) 16 Respiratory rate source Observation Oxygen Delivery Method Room Air Blood Pressure (90/60-120/80) 134/72 H Blood Pressure Mean (mm Hg) 92 Source Monitor Position Sitting Blood Pressure Location Left Arm History Since Last Visit- (Skip if this is Patient's initial visit) Have you changed medications since your No last visit? Any new allergies or adverse reactions No Had a fall/change in ADL's that may No increase risk of falls Signs or symptoms of abuse and/or No neglect since last visit Have you been in the hospital since your No last visit? Has dressing in place as prescribed Yes Has compression in place as prescribed N/A Has offloadiing in place as prescribed N/A Experienced any changes in pain level or No management Left Footwear Regular Shoe Right Footwear Regular Shoe Pain Scale: 0-10 Numeric Is Patient Pain Free? Yes WC - Nurse 1 - General Ulcer Measurement Start: 07/15/24 14:12 Freq: Status: Active Protocol: Activity Type Activity Date Activity User E-sign Co-sign Detail Recorded Client Recorded Date Recorded By Document 07/29/24 13:26 [facility] [id number] 07/29/24 13:33 [facility] 07/29/24 13:26 Wound Center Nurse 1 5. L post ankle/ Achilles repair post-op -Combined with other wound No -Current Size (cm) - Length 6.2 -Current Size (cm) - Width 1.6 -Current Size (cm) - Depth 0.1 -Total Square Cm 9.92 -Date of Last Picture (Recall this 07/29/24 field) -Photo Taken Yes -Epithelialization Small 1-33% -Tunneling No -Undermining/Tunneling No -Circular Undermining No -Exudate Amt Medium -Exudate Type Serosanguineous -Wound Margin Distinct, Outline Attached -Granulation Amt Large (67-100%) -Granulation Quality Red -Texture (Yanely-wound Skin Appearance) Assessed, Scarring -Moisture (Yanely-wound Skin Appearance) Assessed -Color (Yanely-wound Skin Appearance) Assessed -Temperature (Yanely-wound Skin No Abnormality Appearance) (Pt Warm) -Tenderness on Palpation (Yanely-wound No Skin Appearance) -Ulcer Cleansing Soap and Water -Foul Odor after Cleansing No -Anesthetic Used 5% Lidocaine Gel WC - Nurse 2 - General Ulcer CM Notes Start: 07/15/24 14:12 Freq: Status: Active Protocol: Activity Type Activity Date Activity User E-sign Co-sign Detail Recorded Client Recorded Date Recorded By Document 07/29/24 14:01 JF [id number] 07/29/24 14:04 07/29/24 14:01 Wound Center Nurse 2 -Time 14:01 -Correct Patient Yes -Correct Side, Site, Position Yes -Correct Procedure Yes -Procedure Performed Yes -Type of Procedure Debridement -Clinical Debridement Subcutaneous -Tissue Removed Subcutaneous -Post Debridement (cm) - Length 6.0 -Post Debridement (cm) - Width 1.6 -Post Debridement (cm) - Depth 0.1 -Total Square (Post) (cm) 9.60 -Area of Debridement (cm) - Length 6.0 -Area of Debridement (cm) - Width 1.6 -Total Square (Area) (cm) 9.60 -Tunneling No -Undermining/Tunneling No -Circular Undermining No -Wound/Ulcer Outcome Not Healed -Ulcer Cleansing Rinsed/ Irrigated with Saline -Foul Odor after Cleansing No -Bioengineered Tissue No -Bleeding Controlled with Pressure -Treatment Response Procedure Tolerated Well -Offloading No -Debridement - Subq, 1st 20sq cm Yes Pain Scale: 0-10 Numeric Is Patient Pain Free? Yes WC - Nurse 3 - General Ulcer D/C NN Start: 07/15/24 14:12 Freq: Status: Active Protocol: Activity Type Activity Date Activity User E-sign Co-sign Detail Recorded Client Recorded Date Recorded By Document 07/29/24 14:11 KW [id number] 07/29/24 14:12 07/29/24 14:11 Wound Care Center Nurse 3 5. L post ankle/ Achilles repair post-op -Negative Pressure Wound Therapy Continue -Setting (mmHg) 125 -Negative Pressure is Continuous -NPWT Application Charge NPWT & Debridement (nc ) left leg -Compression Wrap Mustapha Wrap Pain Scale: 0-10 Numeric Is Patient Pain Free? Yes Charges/Coding Wound Center CF Procedures HBO Supervision: [id number] Hyperbaric Oxygen; supervision Assessment/Plan Assessment/Plan (1) Skin graft (allograft) (autograft) failure: CODE(S): T86.821 - Skin graft (allograft) (autograft) failure (2) Wound of left ankle: CODE(S): S91.002A - Unspecified open wound, left ankle, initial encounter QUALIFIERS: Encounter type: subsequent encounter Qualified Code(s): S91.002D - Unspecified open wound, left ankle, subsequent encounter (3) Type 2 diabetes mellitus with hyperglycemia: CODE(S): E11.65 - Type 2 diabetes mellitus with hyperglycemia QUALIFIERS: Diabetes mellitus terminal gauger insulin use: without terminal gauger use Qualified Code(s): E11.65 - Type 2 diabetes mellitus with hyperglycemia PLAN: Plan The patient tolerated hyperbaric oxygen therapy well, which will be continued as per her medical plan. This note was generated with [employer] software. It may contain incorrect words, spelling, and punctuation that were not noted in checking the note before signing.
[2024-08-01 12:28] LABS: Bedside Glucose 132 mg/dL (74-106)
--- NOTE | 2024-08-01 13:50 | HBO.PN.PCM_ITS ---
History of Present Illness Date of Service: 07/30/24 Chief Complaint: Surgical dehiscence with exposure of the Achilles tendon left lower extremity; Allograft failure History of Wound: 59 y/o female with DM type II with peripheral polyneuropathy, peripheral vascular disease, asthma, morbid obesity, HTN, and hyperlipidemia presented to the [facility] Center for continued care of surgical dehiscence of her posterior left lower extremity with exposure of the Achilles tendon. The patient underwent surgical intervention to correct calcaneal gait with plantar ulceration of the left heel on 01/26/2024. At that time of surgery she was found to have tendo Achilles tear to the left lower extremity resulting in a calcaneal gait. Tendon was debrided and a shortening of the tendo Achilles was performed in addition to FHL tendon transfer. 3 weeks later patient had fallen placing weight to the foot resulting in a tear and dehiscence of the surgical site with exposure of the Achilles tendon. She was returned to the OR for debridement on 02/22/2024 and wound VAC was applied over ulcerative area. She did have PICC line and completed 6 weeks of IV antibiotics during stay in the transitional care unit. She completed IV antibiotic 04/04/2024 PICC line was pulled and she was discharged from the transitional care unit to home. Surgery by Dr. Solano on 06/10/24 for Split-thickness skin grafting from the left lateral thigh to the left Achilles tendon ankle wound 7 x [address] Solano on 05/20/23 for Excision of left posterior ankle wound, including biofilm, subcutaneous tissue, fascia, and tendon, 7 x 3 cm and Irrigating wound VAC, vera flow, not disposable AND 05/22/24 - Excision of left posterior ankle wound, including biofilm, subcutaneous tissue, fascia, and tendon and Placement of dermal substitute (Integra) and wound VAC placed. Operative culture 05/15/24 positive for MSSA and Anaerobic cocci. Treated with Doxy, cefdinir, and Flagyl. Patient underwent multiple debridements and eventual skin grafting on 11 June 2024. She has developed compromise of her skin graft. Progress of Wound: Progress: Today represents her hyperbaric oxygen therapy treatment. She has been scheduled for 20 sessions. Tolerance of hyperbaric oxygen therapy: Hyperbaric oxygen treatment was administered as per the facility's protocol - 100% oxygen at 2 ALEYDA for 90 minutes without air breaks. The patient tolerated the hyperbaric oxygen therapy well without complications or complaints. Upon emergence from the hyperbaric chamber, the patient's vital signs remained stable. Pre and post blood sugars as documented - Pre-HBO: 180; Post-HBO:171. She was discharged in stable condition. Subjective Subjective The patient has no concerns and is doing well Objective Data Objective Data Vital Signs: Vital Signs Temp Pulse Resp BP O2 Del Method 97.7 F L 72 16 147/82 H Room Air 08/01/24 11:57 08/01/24 11:57 08/01/24 11:57 08/01/24 11:57 07/29/24 13:26 Oxygen Delivery Method Room Air Weight: 230 lb Body Mass Index (BMI) 34.9 Lab / Micro Data Labs: Laboratory Results - last 24 hr 08/01/24 10:00: POC Glucose 135 H 08/01/24 12:06: POC Glucose 132 H Exam Physical Exam Const alert, oriented x3 and no apparent distress General Appearance: cooperative, comfortable, well kempt and well developed HEENT normocephalic, head/scalp atraumatic and hearing grossly normal bilaterally Eyes EOMs intact bilaterally Neck full ROM and supple General: normal visual inspection Resp normal respiratory effort and no use of accessory muscles Effort and Inspection: able to speak in complete sentences Neuro oriented x3, CN's II-XII intact bilaterally and moves all extremities Speech: speech normal Psych mental status grossly normal, thought process normal, cooperative and affect normal Appearance: grossly normal Speech: normal speech Nursing Assessment and Debridement Post-Debridement Measurements and Additional Note: Post-Debridement Measurements/Treatment - Nurse 1 - General Ulcer Assessment Start: 07/15/24 14:12 Freq: Status: Active Protocol: BUSTER Activity Type Activity Date Activity User E-sign Co-sign Detail Recorded Client Recorded Date Recorded By Document 07/29/24 13:26 [facility] [id number] 07/29/24 13:33 [facility] 07/29/24 13:26 - Today's Visit Information Type of service Follow-up Visit (Physician/[employer] AGENT ) Arrival Mode Ambulatory,Cane Transfer Assistance None Patient Identification Verified (Name & Yes ) Patient Requires Transmission-Based No Precautions Height and Weight Body Mass Index (BMI) 34.9 BMI Classification Obese Vital Signs Temperature (97.8 F-99.1 F) 97.1 F L Temperature Source Temporal Pulse Rate (60-100) 68 Pulse Location Monitor Respiratory Rate (12-18) 16 Respiratory rate source Observation Oxygen Delivery Method Room Air Blood Pressure (90/60-120/80) 134/72 H Blood Pressure Mean (mm Hg) 92 Source Monitor Position Sitting Blood Pressure Location Left Arm History Since Last Visit- (Skip if this is Patient's initial visit) Have you changed medications since your No last visit? Any new allergies or adverse reactions No Had a fall/change in ADL's that may No increase risk of falls Signs or symptoms of abuse and/or No neglect since last visit Have you been in the hospital since your No last visit? Has dressing in place as prescribed Yes Has compression in place as prescribed N/A Has offloadiing in place as prescribed N/A Experienced any changes in pain level or No management Left Footwear Regular Shoe Right Footwear Regular Shoe Pain Scale: 0-10 Numeric Is Patient Pain Free? Yes - Nurse 1 - General Ulcer Measurement Start: 07/15/24 14:12 Freq: Status: Active Protocol: Activity Type Activity Date Activity User E-sign Co-sign Detail Recorded Client Recorded Date Recorded By Document 07/29/24 13:26 [facility] [id number] 07/29/24 13:33 [facility] 07/29/24 13:26 Wound Center Nurse 1 5. L post ankle/ Achilles repair post-op -Combined with other wound No -Current Size (cm) - Length 6.2 -Current Size (cm) - Width 1.6 -Current Size (cm) - Depth 0.1 -Total Square Cm 9.92 -Date of Last Picture (Recall this 07/29/24 field) -Photo Taken Yes -Epithelialization Small 1-33% -Tunneling No -Undermining/Tunneling No -Circular Undermining No -Exudate Amt Medium -Exudate Type Serosanguineous -Wound Margin Distinct, Outline Attached -Granulation Amt Large (67-100%) -Granulation Quality Red -Texture (Yanely-wound Skin Appearance) Assessed, Scarring -Moisture (Yanely-wound Skin Appearance) Assessed -Color (Yanely-wound Skin Appearance) Assessed -Temperature (Yanely-wound Skin No Abnormality Appearance) (Pt Warm) -Tenderness on Palpation (Yanely-wound No Skin Appearance) -Ulcer Cleansing Soap and Water -Foul Odor after Cleansing No -Anesthetic Used 5% Lidocaine Gel - Nurse 2 - General Ulcer CM Notes Start: 07/15/24 14:12 Freq: Status: Active Protocol: Activity Type Activity Date Activity User E-sign Co-sign Detail Recorded Client Recorded Date Recorded By Document 07/29/24 14:01 [email or web address] [id number] 07/29/24 14:04 07/29/24 14:01 Wound Center Nurse 2 -Time 14:01 -Correct Patient Yes -Correct Side, Site, Position Yes -Correct Procedure Yes -Procedure Performed Yes -Type of Procedure Debridement -Clinical Debridement Subcutaneous -Tissue Removed Subcutaneous -Post Debridement (cm) - Length 6.0 -Post Debridement (cm) - Width 1.6 -Post Debridement (cm) - Depth 0.1 -Total Square (Post) (cm) 9.60 -Area of Debridement (cm) - Length 6.0 -Area of Debridement (cm) - Width 1.6 -Total Square (Area) (cm) 9.60 -Tunneling No -Undermining/Tunneling No -Circular Undermining No -Wound/Ulcer Outcome Not Healed -Ulcer Cleansing Rinsed/ Irrigated with Saline -Foul Odor after Cleansing No -Bioengineered Tissue No -Bleeding Controlled with Pressure -Treatment Response Procedure Tolerated Well -Offloading No -Debridement - Subq, 1st 20sq cm Yes Pain Scale: 0-10 Numeric Is Patient Pain Free? Yes - Nurse 3 - General Ulcer D/C NN Start: 07/15/24 14:12 Freq: Status: Active Protocol: Activity Type Activity Date Activity User E-sign Co-sign Detail Recorded Client Recorded Date Recorded By Document 07/29/24 14:11 [email or web address] [id number] 07/29/24 14:12 07/29/24 14:11 Wound Care Center Nurse 3 5. L post ankle/ Achilles repair post-op -Negative Pressure Wound Therapy Continue -Setting (mmHg) 125 -Negative Pressure is Continuous -NPWT Application Charge NPWT & Debridement (nc ) left leg -Compression Wrap Mustapha Wrap Pain Scale: 0-10 Numeric Is Patient Pain Free? Yes Charges/Coding Wound Center CF Procedures HBO Supervision: [id number] Hyperbaric Oxygen; supervision Assessment/Plan Assessment/Plan (1) Skin graft (allograft) (autograft) failure: CODE(S): T86.821 - Skin graft (allograft) (autograft) failure (2) Wound of left ankle: CODE(S): S91.002A - Unspecified open wound, left ankle, initial encounter QUALIFIERS: Encounter type: subsequent encounter Qualified Code(s): S91.002D - Unspecified open wound, left ankle, subsequent encounter (3) Type 2 diabetes mellitus with hyperglycemia: CODE(S): E11.65 - Type 2 diabetes mellitus with hyperglycemia QUALIFIERS: Diabetes mellitus watermaster insulin use: without watermaster use Qualified Code(s): E11.65 - Type 2 diabetes mellitus with hyperglycemia PLAN: Plan The patient tolerated hyperbaric oxygen therapy well, which will be continued as per her medical plan.
== END 2024-08-10 23:59 | disposition home or self-care (01) ==
LOC: WC 10:30
PROVIDERS: PCP Family Medicine Geriatric Medicine; Referring Provider Surgery Plastic and Reconstructive Surgery; Visit Provider Surgery Plastic and Reconstructive Surgery
DX: T86.821 Skin graft (allograft) (autograft) failure (principal); E66.01 Morbid (severe) obesity due to excess calories; E11.65 Type 2 diabetes mellitus with hyperglycemia; E11.42 Type 2 diabetes mellitus with diabetic polyneuropathy; E11.51 Type 2 diabetes mellitus with diabetic peripheral angiopathy without gangrene; W19.XXXA Unspecified fall, initial encounter; S91.002A Unspecified open wound, left ankle, initial encounter; I10 Essential (primary) hypertension; Z87.891 Personal history of nicotine dependence; Y83.2 Surgical operation with anastomosis, bypass or graft as the cause of abnormal reaction of the patient, or of later complication, without mention of misadventure at the time of the procedure; J45.909 Unspecified asthma, uncomplicated; E78.5 Hyperlipidemia, unspecified; Z68.34 Body mass index [BMI] 34.0-34.9, adult
CPT/HCPCS: 11042; 82962; 97605; 99183; 99213; G0277; G0463

== ENCOUNTER 2024-08-21 09:34 | Observation (INO) | payer MEDICARE, MEDICAID, SELFPAY ==
--- NOTE | 2024-08-16 13:40 | PCM.HBO.PN ---
History of Present Illness Date of Service: 08/16/24 Chief Complaint: Surgical dehiscence with exposure of the Achilles tendon left lower extremity; Allograft failure History of Wound: 59 y/o female with DM type II with peripheral polyneuropathy, peripheral vascular disease, asthma, morbid obesity, HTN, and hyperlipidemia presented to the [facility] for continued care of surgical dehiscence of her posterior left lower extremity with exposure of the Achilles tendon. The patient underwent surgical intervention to correct calcaneal gait with plantar ulceration of the left heel on 01/26/2024. At that time of surgery she was found to have tendo Achilles tear to the left lower extremity resulting in a calcaneal gait. Tendon was debrided and a shortening of the tendo Achilles was performed in addition to FHL tendon transfer. 3 weeks later patient had fallen placing weight to the foot resulting in a tear and dehiscence of the surgical site with exposure of the Achilles tendon. She was returned to the OR for debridement on 02/22/2024 and wound VAC was applied over ulcerative area. She did have PICC line and completed 6 weeks of IV antibiotics during stay in the transitional care unit. She completed IV antibiotic 04/04/2024 PICC line was pulled and she was discharged from the transitional care unit to home. Surgery by Dr. Solano on 06/10/24 for Split-thickness skin grafting from the left lateral thigh to the left Achilles tendon ankle wound 7 x [address] Solano on 05/20/23 for Excision of left posterior ankle wound, including biofilm, subcutaneous tissue, fascia, and tendon, 7 x 3 cm and Irrigating wound VAC, vera flow, not disposable AND 05/22/24 - Excision of left posterior ankle wound, including biofilm, subcutaneous tissue, fascia, and tendon and Placement of dermal substitute (Integra) and wound VAC placed. Operative culture 05/15/24 positive for MSSA and Anaerobic cocci. Treated with Doxy, cefdinir, and Flagyl. Patient underwent multiple debridements and eventual skin grafting on 11 June 2024. She has developed compromise of her skin graft. Subjective Subjective The patient appears to be tolerating hyperbaric oxygen therapy well. Today represents the 22nd such hyperbaric oxygen treatment of 30 scheduled treatments. The patient appears to be doing well. Exam Physical Exam Const alert, oriented x3 and no apparent distress HEENT Tympanic Membrane: TM's normal bilaterally Psych mental status grossly normal, thought process normal, cooperative, affect normal and speech normal Assessment/Plan Assessment/Plan (1) Skin graft (allograft) (autograft) failure: CODE(S): T86.821 - Skin graft (allograft) (autograft) failure (2) Wound of left ankle: CODE(S): S91.002A - Unspecified open wound, left ankle, initial encounter QUALIFIERS: Encounter type: subsequent encounter Qualified Code(s): S91.002D - Unspecified open wound, left ankle, subsequent encounter (3) Type 2 diabetes mellitus with hyperglycemia: CODE(S): E11.65 - Type 2 diabetes mellitus with hyperglycemia QUALIFIERS: Diabetes mellitus usp insulin use: without usp use Qualified Code(s): E11.65 - Type 2 diabetes mellitus with hyperglycemia PLAN: Plan The patient tolerated hyperbaric oxygen therapy well, which will be continued as per her medical plan. This note was generated with [employer] software. It may contain incorrect words, spelling, and punctuation that were not noted in checking the note before signing.
[2024-08-21] VITALS (12 sets, daily range): BP systolic 83–151; BP diastolic 49–84; PULSE 62–76; RESP 15–16; TEMP 36.2–36.8; O2SAT 95–99; BMI 34.4
[2024-08-21] MEDS: 0.9% Normal Saline (1000mL) 1,000 ML 15 ML IV (06:26)
--- NOTE | 2024-08-21 06:55 | PRE.ANES_ITS ---
ASA Classification* ASA Classification ASA Classification: 3 Assessment & Plan Anesthesia* Anesthesia Assessment Anesthesia Assessment: Discussed sedation and/or anesthesia options, risks, benefits, and alternatives with patient/parents/legal guardian/POA. Questions invited. The patient/parents/legal guardian/POA seems to understand and agrees to proceed with anesthesia plan. Reviewed the physical assessment, medical history, allergy history and patient home medications list prior to surgery/procedure/anesthetic and documented any changes. Performed airway and anesthesia risk assessments. Anesthesia Type Anesthesia Type: MAC Anesthesia Focused Assessment* Temperature: 97.2 F Pulse Rate: 69 Blood Pressure: 123/76 Respiratory Rate: 16 Pulse Ox: 99 Airway Assessment Mouth opens: >3 cm Mallampati Score: II Focused Labs Anesthesia Preop lab: CBC WBC 6.2 K/mm3 (4.4-11.0) 07/01/24 15:28 RBC 4.67 M/mm3 (4.2-5.4) 07/01/24 15:28 Hgb 12.1 g/dL (12.0-15.0) 07/01/24 15:28 Hct 39.2 % (37-47) 07/01/24 15:28 Plt Count 368 K/mm3 (150-450) 07/01/24 15:28 CHEMISTRY Potassium 4.2 mmol/L (3.5-5.1) 07/01/24 15:28 Sodium 138 mmol/L (136-145) 07/01/24 15:28 Magnesium 2.0 mg/dL (1.6-2.6) 05/17/24 07:22 Phosphorus 3.6 mg/dL (2.5-4.9) 05/17/24 07:22 BUN 14 mg/dL (7-18) 07/01/24 15:28 Creatinine 0.91 mg/dL (0.55-1.02) 07/01/24 15:28 Glucose 130 mg/dL (74-106) H 07/01/24 15:28 POC Glucose 178 mg/dL (74-106) H 08/20/24 12:23 TSH 0.327 uIU/mL (0.358-3.740) L 07/01/24 15:28 COAG PT 14.5 SECONDS (11.7-14.9) 05/22/24 05:13 Pre-Assessment Diagnosis/Proposed Procedure Planned Operative Procedure(s): (L) Left leg wound split thickness skin graft Anesthesia History Anesthesia History - service captain: Anesthesia History - service captain Hx Hospitalization Yes: AFTER FOOT SURGERY 08/14/24 14:23 Any Problems With Anesthesia No 08/14/24 14:23 Cholinesterase deficiency No 08/14/24 14:23 You/Your Family Experience No 08/14/24 14:23 fever (hyperthermia) with Relationship Recent Exposure to Contagious No 08/21/24 06:19 Disease Does patient have nerve No 08/14/24 14:23 stimulator Patient instructed to have device shut off --Does patient have Pacemaker No 08/21/24 06:19 or ICD? When Was Last Pacemaker Check QUESTION #4 FULL TEXT: You/Your Family Experience fever (hyperthermia) with Anesthesia Last Oral Intake Last Oral intake: Last Oral Intake NPO since 00:00 08/21/24 06:19 Meds taken in AM with sips of water? Meds patient instructed to take am of surgery PONV PONV - service captain: PONV - service captain Female Yes 08/14/24 14:23 HX of Motion Sickness No 08/14/24 14:23 HX of N/V After Surgery No 08/14/24 14:23 Non-Smoker No 08/14/24 14:23 Duration of Surgery greater Yes 08/14/24 14:23 than 60 minutes Number of Risk Factors 2 08/14/24 14:23 PONV Score Moderate Risk 08/14/24 14:23 Height & Weight Height & Weight: Anesthesia: Height & Weight Height 5 ft 8 in 08/21/24 06:19 Weight: 102.965 kg 08/21/24 06:19 Body Mass Index (BMI) 34.4 08/21/24 06:19 Respiratory Assessment Respiratory Assessment - service captain: Respiratory Tract Infection Hx - service captain Hx Respiratory Tract Infection No 08/14/24 14:23 STOP Sleep Apnea STOP Sleep Apnea - service captain: STOP Sleep Apnea - service captain Hx Hypertension Yes 08/14/24 14:23 Hx Sleep Apnea Yes 08/14/24 14:23 CPAP No: supposed to use cpap 08/14/24 14:23 BIPAP No 08/14/24 14:23 Do you snore loudly (louder than talking or can be heard Do you often feel tired/ fatigued/ sleepy during daytime? Has anyone observed you stop breathing during sleep? STOP Results Positive 08/14/24 14:23 QUESTION #5 FULL TEXT : Do you snore loudly (louder than talking or can be heard through closed doors)? 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 Specify any problems Hx of Preganancy in last 3 No 08/14/24 14:23 Months Nurse Filling Out Transfusion VCHRISTIN 08/14/24 14:23 & Questions: Date: 08/14/24 08/14/24 14:23 Time: 14:24 08/14/24 14:23 Patient unable to answer at this time (ie. confused, unrespo /Reproduction History /Reproductive History - service captain: /Reproductive Hx- service captain Hx Now No 08/14/24 14:23 Gestational Age (in weeks): EDC: Hx Hx Para Hx Section SAB No 08/14/24 14:23 Active Medications Active Medications: Current Medications Generic Name Dose Route Start Last Admin Trade Name Freq PRN Reason Stop Dose Admin Clindamycin Phosphate 900 mg in 50 mls @ 75 mls/hr 08/21/24 07:30 Cleocin IV 08/21/24 08:09 PREOP ONE Sodium Chloride 1,000 mls @ 15 mls/hr 08/21/24 06:00 08/21/24 06:26 IV 08/26/24 19:19 15 mls/hr .Q48H RUTH Administration Protocol PFSH Medical History Open wound Current use of insulin Post-menopausal Hiatal hernia Back pain due to injury Osteoporosis Sleep apnea Degeneration of Achilles tendon Insulin dependent diabetes mellitus Easy bruising Restless legs Difficulty swallowing Tachycardia Smoker Wears dentures Wears glasses Anxiety Iron deficiency Back pain Dietary restriction GERD (gastroesophageal reflux disease) Shortness of breath Asthma CPAP (continuous positive airway pressure) dependence Leg cramping History of pain when walking Edema Cardiology follow-up encounter History of stress test Normal echocardiogram Hypertension Difficulty balancing when standing Asthma Arthritis Fibromyalgia Multinodular thyroid Hypothyroidism Essential (primary) hypertension Hypergammaglobulinemia Hyperlipemia Dermatitis Depression PAD (peripheral artery disease) Other specified peripheral vascular diseases Hammertoe of left foot Skin ulcer of right foot including toes with fat layer exposed Osteomyelitis of toe Morbid obesity with BMI of 40.0-44.9, adult Diabetes type 2, uncontrolled Venous stasis dermatitis of both lower extremities Home Medications ?Medication ?Instructions ?Recorded ?Last Taken ?Type omeprazole 40 mg capsule,delayed 40 mg PO DAILY ACID REFLUX 10/18/18 05/14/24 History release paroxetine HCl 40 mg tablet 40 mg PO DAILY DEPRESSION 10/29/19 05/14/24 History pregabalin 150 mg capsule 150 mg PO TID NERVE PAIN 10/29/19 05/14/24 History aspirin 81 mg tablet,delayed 81 mg PO DAILY HEART HEALTH 07/21/20 08/14/24 History release (Adult Low Dose Aspirin) rosuvastatin 40 mg tablet (Crestor) 40 mg PO DAILY CHOLESTEROL 08/26/22 05/14/24 History pen needle, diabetic 32 gauge x #100 ea 02/13/23 Unknown Rx (BD Ultra-Fine [place]ina Pen Needle) dapagliflozin propanediol 10 mg 10 mg PO DAILY DIABETES 03/01/23 08/20/24 History tablet (Farxiga) blood sugar diagnostic (True #100 ea 03/24/23 Unknown Rx Metrix Glucose Test Strip) glimepiride 4 mg tablet 4 mg PO DAILY diabetes #30 tabs 04/10/23 08/21/24 Rx insulin aspart 10 unit subcut TID diabetes #9 mL 05/29/23 02/26/24 Rx (niacinamide)(U-100) 100 unit/mL(3 mL) subcutaneous pen (Fiasp FlexTouch U-100 Insulin) albuterol sulfate 90 mcg/actuation 1 puff inhalation Q6H PRN PRN 01/19/24 05/12/24 History aerosol inhaler shortness of breath or wheezing celecoxib 200 mg capsule 200 mg PO DAILY pain 02/21/24 08/20/24 History doxepin 25 mg capsule 25 mg PO QHS sleep 02/21/24 05/14/24 History levothyroxine 150 mcg tablet 150 mcg PO DAILY hypothyroid 02/21/24 05/22/24 History montelukast 10 mg tablet 10 mg PO DAILY allergies/asthma 02/21/24 05/14/24 History potassium chloride 20 mEq 20 meq PO DAILY potassium 02/21/24 05/14/24 History tablet,extended supplement release(part/cryst) (Klor-Con M) trazodone 150 mg tablet 150 mg PO QHS sleep 02/21/24 05/14/24 History acetaminophen 500 mg tablet 1,000 mg (2 x 500 mg) PO Q6H PRN 04/02/24 Unknown Rx PRN Pain Score 1-3 #0 tabs vitamin B complex (Vitamins B 1 cap PO DAILY 05/15/24 05/14/24 History Complex capsule) metoprolol succinate 50 mg 50 mg PO DAILY 30 days #30 tabs 05/22/24 08/20/24 12:00 Rx tablet,extended release 24 hr tirzepatide 7.5 mg/0.5 mL 10 mg subcut MO diabetes 07/04/24 08/12/24 History subcutaneous pen injector (Mounmemoro) Allergy/AdvReac Type Severity Reaction Status Date / Time piperacillin (From Zosyn) Allergy Severe Anaphylaxis Verified 08/21/24 06:14 tazobactam (From Zosyn) Allergy Severe Anaphylaxis Verified 08/21/24 06:14 sulfamethoxazole (From Allergy Unknown Anaphylaxis Verified 08/21/24 06:14 Bactrim) trimethoprim (From Bactrim) Allergy Unknown Anaphylaxis Verified 08/21/24 06:14 latex Allergy Rash Verified 08/21/24 06:14 pyrethrins Allergy Anaphylaxis Verified 08/21/24 06:14 tetanus and diphtheria Allergy Anaphylaxis Verified 08/21/24 06:14 toxoids (Tetanus&Diphtheria Toxoid) Family History Mother Diabetes Dementia Father Diabetes Myocardial infarction Surgical History Hx of toe surgery History of partial ray amputation of fifth toe of right foot Hx of total knee arthroplasty History of nasal septoplasty History of cholecystectomy History of thyroidectomy H/O arthroscopic knee surgery (11/2019) H/O amputation of lesser toe (05/05/17) Social History household members: none Smoking Status: Current every day smoker tobacco type: e-cigarettes alcohol intake: current alcohol intake frequency: holidays/special occasions only substance use type: does not use Review of Systems (Anesthesia) ROS Narrative System reviewed and no additional complaints, except as documented.
[2024-08-21 07:07] LABS: Bedside Glucose 144 mg/dL (74-106)
[2024-08-21] MEDS: Bupiv/Epi 0.25% 30 ML Vial (07:10)
--- NOTE | 2024-08-21 07:10 | PCM.HP.STD ---
HPI - General HPI Narrative REMI TREVINO, is a 59 F who presents for left lower extremity skin grafting. She has been optimized with hyperbaric oxygen therapy. Current Encounter (DATE OF SURGERY H&P UPDATE): I saw and examined the patient this morning in pre-operative holding. We discussed risks and benefits of today's surgery and they would like to proceed. NO CHANGE in health history since last seen and evaluated. Ready to proceed with surgery. [facility] Medical History Open wound Current use of insulin Post-menopausal Hiatal hernia Back pain due to injury Osteoporosis Sleep apnea Degeneration of Achilles tendon Insulin dependent diabetes mellitus Easy bruising Restless legs Difficulty swallowing Tachycardia Smoker Wears dentures Wears glasses Anxiety Iron deficiency Back pain Dietary restriction GERD (gastroesophageal reflux disease) Shortness of breath Asthma CPAP (continuous positive airway pressure) dependence Leg cramping History of pain when walking Edema Cardiology follow-up encounter History of stress test Normal echocardiogram Hypertension Difficulty balancing when standing Asthma Arthritis Fibromyalgia Multinodular thyroid Hypothyroidism Essential (primary) hypertension Hypergammaglobulinemia Hyperlipemia Dermatitis Depression PAD (peripheral artery disease) Other specified peripheral vascular diseases Hammertoe of left foot Skin ulcer of right foot including toes with fat layer exposed Osteomyelitis of toe Morbid obesity with BMI of 40.0-44.9, adult Diabetes type 2, uncontrolled Venous stasis dermatitis of both lower extremities Home Medications ?Medication ?Instructions ?Recorded ?Last Taken ?Type omeprazole 40 mg capsule,delayed 40 mg PO DAILY ACID REFLUX 10/18/18 05/14/24 History release paroxetine HCl 40 mg tablet 40 mg PO DAILY DEPRESSION 10/29/19 05/14/24 History pregabalin 150 mg capsule 150 mg PO TID NERVE PAIN 10/29/19 05/14/24 History aspirin 81 mg tablet,delayed 81 mg PO DAILY HEART HEALTH 07/21/20 08/14/24 History release (Adult Low Dose Aspirin) rosuvastatin 40 mg tablet (Crestor) 40 mg PO DAILY CHOLESTEROL 08/26/22 05/14/24 History pen needle, diabetic 32 gauge x #100 ea 02/13/23 Unknown Rx (BD Ultra-Fine Catalina Pen Needle) dapagliflozin propanediol 10 mg 10 mg PO DAILY DIABETES 03/01/23 08/20/24 History tablet (Farxiga) blood sugar diagnostic (True #100 ea 03/24/23 Unknown Rx Metrix Glucose Test Strip) glimepiride 4 mg tablet 4 mg PO DAILY diabetes #30 tabs 04/10/23 08/21/24 Rx insulin aspart 10 unit subcut TID diabetes #9 mL 05/29/23 02/26/24 Rx (niacinamide)(U-100) 100 unit/mL(3 mL) subcutaneous pen (Fiasp FlexTouch U-100 Insulin) albuterol sulfate 90 mcg/actuation 1 puff inhalation Q6H PRN PRN 01/19/24 05/12/24 History aerosol inhaler shortness of breath or wheezing celecoxib 200 mg capsule 200 mg PO DAILY pain 02/21/24 08/20/24 History doxepin 25 mg capsule 25 mg PO QHS sleep 02/21/24 05/14/24 History levothyroxine 150 mcg tablet 150 mcg PO DAILY hypothyroid 02/21/24 05/22/24 History montelukast 10 mg tablet 10 mg PO DAILY allergies/asthma 02/21/24 05/14/24 History potassium chloride 20 mEq 20 meq PO DAILY potassium 02/21/24 05/14/24 History tablet,extended supplement release(part/cryst) (Klor-Con M) trazodone 150 mg tablet 150 mg PO QHS sleep 02/21/24 05/14/24 History acetaminophen 500 mg tablet 1,000 mg (2 x 500 mg) PO Q6H PRN 04/02/24 Unknown Rx PRN Pain Score 1-3 #0 tabs vitamin B complex (Vitamins B 1 cap PO DAILY 05/15/24 05/14/24 History Complex capsule) metoprolol succinate 50 mg 50 mg PO DAILY 30 days #30 tabs 05/22/24 08/20/24 12:00 Rx tablet,extended release 24 hr tirzepatide 7.5 mg/0.5 mL 10 mg subcut MO diabetes 07/04/24 08/12/24 History subcutaneous pen injector (Rex) Allergy/AdvReac Type Severity Reaction Status Date / Time piperacillin (From Zosyn) Allergy Severe Anaphylaxis Verified 08/21/24 06:14 tazobactam (From Zosyn) Allergy Severe Anaphylaxis Verified 08/21/24 06:14 sulfamethoxazole (From Allergy Unknown Anaphylaxis Verified 08/21/24 06:14 Bactrim) trimethoprim (From Bactrim) Allergy Unknown Anaphylaxis Verified 08/21/24 06:14 latex Allergy Rash Verified 08/21/24 06:14 pyrethrins Allergy Anaphylaxis Verified 08/21/24 06:14 tetanus and diphtheria Allergy Anaphylaxis Verified 08/21/24 06:14 toxoids (Tetanus&Diphtheria Toxoid) Family History Mother Diabetes Dementia Father Diabetes Myocardial infarction Surgical History Hx of toe surgery History of partial ray amputation of fifth toe of right foot Hx of total knee arthroplasty History of nasal septoplasty History of cholecystectomy History of thyroidectomy H/O arthroscopic knee surgery (11/2019) H/O amputation of lesser toe (05/05/17) Social History household members: none Smoking Status: Current every day smoker tobacco type: e-cigarettes alcohol intake: current alcohol intake frequency: holidays/special occasions only substance use type: does not use Vital Signs Vital Signs Vital Signs: 08/21/24 06:19 08/21/24 06:19 08/21/24 06:55 Temperature 97.2 F L 97.2 F L Temperature Source Temporal Pulse Rate 69 69 Respiratory Rate 16 16 Respiratory Pattern Normal Blood Pressure 123/76 H 123/76 H Blood Pressure Mean 91 Blood Pressure Source Monitor Blood Pressure Position Semi-Fowlers Blood Pressure Location Left Arm Pulse Ox 99 99 Oxygen Delivery Method Room Air Weight Weight: 227 lb Body Mass Index (BMI) 34.4 Physical Exam Narrative LEFT LOWER EXTREMITY Persistent ulcer over the Achilles with beefy red granulation tissue. Results Lab / Micro Data Labs: Laboratory Results - last 24 hr 08/21/24 06:18: POC Glucose 144 H Assessment & Plan Assessment/Plan (1) Wound of left ankle: QUALIFIERS: Encounter type: subsequent encounter Qualified Code(s): S91.002D - Unspecified open wound, left ankle, subsequent encounter (2) Skin graft (allograft) (autograft) failure: PLAN: Plan I talked the patient extensively about the risks of surgery, including bleeding, infection, damage to surrounding structures, surgical site dehiscence and wound formation, need for wound care, need for repeat operations, failure to obtain the desired result, DVT/PE, and the risks of anesthesia including . The benefits and alternatives of this surgery were also discussed. All of their questions were answered, and they agreed to proceed with surgery. Understands risks of skin graft failure and would like to do another skin graft in the setting of better optimized wound bed (HYPERBARIC OXYGEN) to promote faster healing. INTERVAL H&P PLAN, DATE OF SURGERY: We will proceed with surgery today.
[2024-08-21] MEDS: Lidocaine 1% /Epi 1:100 (20ml) 20 ML Vial (07:11)
[2024-08-21] MEDS: Mineral Oil, Light Sterile 10 ML Vial MC (07:20)
[2024-08-21] MEDS: Clindamycin 900 MG/50 ML BAG 75 MG IV (07:28)
[2024-08-21] MEDS: Epinephrine (1 mg/ml) 1 MG/ML VIAL (07:30)
--- NOTE | 2024-08-21 08:44 | PCM.POST.ANE ---
Anesthesia: Postop Eval I Current Vital Signs Temperature: 97.6 F Pulse Rate: 68 Blood Pressure: 83/49 Respiratory Rate: 16 Pulse Ox: 99 Oxygen Delivery Method: Room Air Assessment Airway patent: Yes Spontaneous unlabored respirations: Yes Mental status: Calm nausea: No Vomiting: No Anesthesia Complication: No Fluid Hydration Crystalloid volume administer (ml): 500 Total IV fluid infused: 500 Progress Note Anesthesia document: Postop Eval 1 completed: Yes
--- NOTE | 2024-08-21 09:44 | SUR.PHASEII ---
dr. feliciano to bedside; patient to stay the night
--- NOTE | 2024-08-21 11:27 | PCM.POSTANE2 ---
Anesthesia Postop Eval I Sum Postop Eval Completion status Anesthesia document: Postop Eval 1 completed: Yes Anesthesia Postop Eval I Summary Anesthesia Postop Eval I Summary: Anesthesia Postop Eval I: Assessment Summary Airway patent Yes 08/21/24 08:46 Spontaneous unlabored Yes 08/21/24 08:46 respirations Mental status Calm 08/21/24 08:46 nausea No 08/21/24 08:46 Vomiting No 08/21/24 08:46 Anesthesia Postop Eval I: Fluid Summary Crystalloid volume administer 500 08/21/24 08:46 (ml) Colloids volume administered ( ml) Blood Product volume administered (ml) Total IV fluid infused 500 08/21/24 08:46 Anesthesia Postop Eval I: Summary Notes Anesthesia Complication No 08/21/24 08:46 Anesthesia Complication Comment: Post-operative progress note Anesthesia: Postop Eval II Evaluation Mental status: Awake Pain Level: 0 nausea: No Vomiting: No
--- NOTE | 2024-08-21 13:30 | SUR.PHASEII ---
Assisted patient up to BSC without any difficulty. Patient voided and then back to bed. Noted left thigh surgical site with small amount of blood coming out from underneath dressing. Informed Dr. Solano and he said to reinforce with ABD pad and JOE bandage; done at this time. Patient denies any needs or discomfort.
[2024-08-21] MEDS: Pregabalin 75 MG Capsule 150 MG PO ×2 (14:54→20:59)
[2024-08-21 16:35] LABS: Bedside Glucose 160 mg/dL (74-106)
[2024-08-21] MEDS: Enoxaparin 40 MG/0.4 ML Syringe SC (16:43)
[2024-08-21] MEDS: Insulin Lispro 100 UNIT/ML INSULN.PEN 10 UNIT SC (16:48)
--- NOTE | 2024-08-21 17:29 | PCM.OPRPT ---
Operative Report (Standard) Operative Information Date of Procedure: 08/21/24 Pre-Operative Diagnosis: Left lower extremity wound Post-Operative Diagnosis: Same Surgery/Procedure Performed: 1) Excision of left posterior ankle wound, 2 x 6 cm (CPT 49891) 2) Split-thickness skin graft, left ankle wound, 2 x 6 cm (CPT 93777) automobile detailer: Yes Rehabilitation Construction Specialist: Ewelina Granado Tasks completed by certified surgical tech/first assistant: Retracting Type of Anesthesia: MAC/Supplemental (30 cc of a 50/50 mixture of 1% licocaine with 1:200,000 epinephrine and 0.25% Marcaine with 1:200,000 epinephrine ) RN Documented Start/Stop Times: Operation Date: 08/21/24 07:30 Case Time Into Pre-Op 08/21/24 05:56 Out of Pre-Op 08/21/24 07:27 Anesthesia Start 08/21/24 07:28 Into Room 08/21/24 07:28 Procedure Start 08/21/24 07:51 Procedure End 08/21/24 08:19 Anesthesia End 08/21/24 08:29 Out of Room 08/21/24 08:29 Into Recovery 08/21/24 08:31 Out of Recovery 08/21/24 09:01 Into Phase II Recovery 08/21/24 09:02 Out of Phase II 08/21/24 13:55 Procedure Start Time: 07:51 Procedure Stop Time: 08:19 Select all DRAINS/GRAFTS/IMPLANTS that apply: None Estimated Blood Loss: 10 cc Specimen collected: No Description of surgery: Indications: Dewey Beltran is a 59 YO FM with a left ankle wound s/p multiple surgeries and skin grafting (graft failure), who recently started hyperbaric oxygen that has promoted better granulation at the wound bed. Presents today for skin grafting. Understands risks, benefits, and alternatives. Procedure details: Patient was correctly identified in preoperative holding and taken back to the operating room where a timeout was performed and she was administered sedation and local anesthesia (see concentration above). It was given time to take effect and he was prepped and draped in sterile fashion, The left lower extremity posterior ankle wound was excised with a curette down to healthy bleeding tissue through the granulation tissue at the base of the wound, and hemostasis was obtained with epinephrine soaked Telfa. This was a total surgical preparation of 12 cm?. Using the Innofidei dermatome a 12/1,000th of an inch split-thickness skin graft was taken from the left thigh and meshed 1-1.5 on the back table and trimmed to fit and placed over the left ankle wound. This was a total split-thickness skin graft of 12 cm?. It was sutured into place with 3-0 Chromic Gut suture. Adaptic was applied and a wound VAC was applied and was holding suction at the end of the case. A fracture boot was placed to keep the ankle in a neutral position. The donor site was dressed with epinephrine soaked Telfa's for hemostasis followed by removal of these and placement of Mepilex Ag, and ABD, and an Mustapha wrap. The patient tolerated the procedure well. She was awakened and taken to the PACU in stable condition. Post-operative plan: Admitted overnight for pain controll. Follow-up in 5 days at the wound care center for VAC removal to assess the skin graft. Surgical Findings: Healthy wound bed ready for skin grafting. Complications Complications: No Admit VTE Documentation VTE Mechan Device Prophylaxis: SCD's (On right leg )
[2024-08-21] MEDS: Acetaminophen 500 MG Tablet 1000 MG PO (18:25)
[2024-08-21] MEDS: oxyCODONE 5 MG Tablet PO ×2 (18:25→22:50)
[2024-08-21] MEDS: traZODone 50 MG Tablet 150 MG PO (20:55)
[2024-08-21] MEDS: Doxepin Hcl 25 MG Capsule PO (20:55)
[2024-08-21] MEDS: Atorvastatin Calcium 80 MG Tablet PO (20:55)
[2024-08-22] VITALS (8 sets, daily range): BP systolic 110–131; BP diastolic 62–69; PULSE 61–68; RESP 15–18; TEMP 36.3–36.8; O2SAT 93–100
[2024-08-22] MEDS: oxyCODONE 5 MG Tablet PO ×3 (03:03→22:27)
[2024-08-22] MEDS: Acetaminophen 500 MG Tablet 1000 MG PO ×2 (03:03→22:26)
[2024-08-22] MEDS: Pregabalin 75 MG Capsule 150 MG PO ×3 (06:31→22:27)
[2024-08-22] MEDS: Levothyroxine 150 MCG Tablet PO (06:31)
[2024-08-22] MEDS: Glimepiride 4 MG Tablet PO (07:28)
[2024-08-22] MEDS: Metoprolol(XL)Succ 50 MG Tablet PO (07:28)
[2024-08-22] MEDS: Aspirin E.C. 81 MG Tablet PO (07:28)
[2024-08-22] MEDS: Montelukast 10 MG Tablet PO (07:28)
[2024-08-22] MEDS: Celecoxib 200 MG Capsule PO (07:28)
[2024-08-22] MEDS: Potassium Chloride Oral Tablet 20 MEQ PO (07:29)
[2024-08-22] MEDS: Vitamin B Comp W-C Capsule 1 CAP PO (07:29)
[2024-08-22] MEDS: Paroxetine 20 MG Tablet 40 MG PO (07:29)
[2024-08-22] MEDS: Enoxaparin 40 MG/0.4 ML Syringe SC (07:29)
[2024-08-22] MEDS: Pantoprazole Sodium 40 MG Tablet PO (07:29)
[2024-08-22 07:52] LABS: Bedside Glucose 103 mg/dL (74-106)
[2024-08-22] MEDS: Insulin Lispro 100 UNIT/ML INSULN.PEN 10 UNIT SC ×3 (09:39→17:02)
--- NOTE | 2024-08-22 10:07 | PCM.PN.BLA ---
Progress Note Doing well overall. No pain today. Physical Exam Narrative LLE: VAC holding suction, leg elevated and pressure is offloaded. Left thigh site c/d/i Const alert and oriented x3 Neck full ROM Resp normal respiratory effort Cardio regular rate Extremity Extremity Narrative: SCD on the right lower extremity Assessment & Plan Assessment/Plan (1) Wound of left ankle: QUALIFIERS: Encounter type: subsequent encounter Qualified Code(s): S91.002D - Unspecified open wound, left ankle, subsequent encounter PLAN: Plan Neuro: Continue current pain meds Cards/Resp: Home meds ordered Abd: No complaints at this time. Endo: Continue home insulin (reasonable sugars thus far in hospital stay). Continue levothyroxine Hem/ID: Continue lovenox 40 mg BID daily for DVT pxx. FEN: Diabetic diet Wound: Continue VAC. Will switch to home VAC tomorrow. Continue LLE pressure offloading. O.K. to walk, but in fracture boot only. Procedures Integumentary [id number]: [id number] Global Visit
--- NOTE | 2024-08-22 11:05 | CASEMGMT ---
Met with patient to complete LAMAS form. LAMAS form explained to patient who voiced understanding and signed form. Original form placed in pt?s chart and copy provided to patient. Dorothy Kamara, Discharge Planning Asst
[2024-08-22 11:29] LABS: Bedside Glucose 182 mg/dL (74-106)
[2024-08-22] MEDS: Glucerna Shake 120 ML LIQUID PO ×3 (13:34→22:30)
--- NOTE | 2024-08-22 14:52 | CASEMGMT ---
Spoke with wound nurse who states pt will be switched over to home vac tomorrow. SID CM into pt room, pt sitting up in bed in no distress. Pt states she does not currently have home health. She has her wound vac present. Pt states she has a cane and walker at home and she drives herself to the wound healing center. 6 clicks=21. Pt denies any homegoing needs at this time.
[2024-08-22 16:15] LABS: Bedside Glucose 98 mg/dL (74-106)
[2024-08-22] MEDS: traZODone 50 MG Tablet 150 MG PO (22:28)
[2024-08-22] MEDS: Atorvastatin Calcium 80 MG Tablet PO (22:28)
[2024-08-22] MEDS: Doxepin Hcl 25 MG Capsule PO (22:29)
[2024-08-22] MEDS: 0.9% Saline Lock 10 ML Syringe IV (22:31)
[2024-08-23 05:23] VITALS: BP 141/65; PULSE 60; RESP 16; TEMP 36.6; O2SAT 95
[2024-08-23] MEDS: Pregabalin 75 MG Capsule 150 MG PO ×2 (05:30→15:04)
[2024-08-23] MEDS: Levothyroxine 150 MCG Tablet PO (05:31)
[2024-08-23] MEDS: 0.9% Normal Saline (1000mL) 1,000 ML 15 ML IV (06:37)
[2024-08-23 07:47] VITALS: BP 125/71; PULSE 60; RESP 18; TEMP 36.4; O2SAT 96
[2024-08-23] MEDS: Insulin Lispro 100 UNIT/ML INSULN.PEN 10 UNIT SC ×2 (07:58→12:30)
[2024-08-23] MEDS: Potassium Chloride Oral Tablet 20 MEQ PO (07:59)
[2024-08-23] MEDS: Vitamin B Comp W-C Capsule 1 CAP PO (07:59)
[2024-08-23] MEDS: Aspirin E.C. 81 MG Tablet PO (08:00)
[2024-08-23] MEDS: oxyCODONE 5 MG Tablet PO (08:00)
[2024-08-23] MEDS: Acetaminophen 500 MG Tablet 1000 MG PO ×2 (08:01→15:04)
[2024-08-23 08:09] LABS: Bedside Glucose 162 mg/dL (74-106)
[2024-08-23 10:53] VITALS: BP 117/67; PULSE 64
[2024-08-23] MEDS: Metoprolol(XL)Succ 50 MG Tablet PO (10:53)
[2024-08-23] MEDS: Pantoprazole Sodium 40 MG Tablet PO (10:53)
[2024-08-23] MEDS: Montelukast 10 MG Tablet PO (10:55)
[2024-08-23] MEDS: Glimepiride 4 MG Tablet PO (10:55)
[2024-08-23] MEDS: Enoxaparin 40 MG/0.4 ML Syringe SC (10:55)
[2024-08-23] MEDS: Celecoxib 200 MG Capsule PO (10:55)
[2024-08-23] MEDS: Paroxetine 20 MG Tablet 40 MG PO (10:56)
[2024-08-23] MEDS: Empagliflozin 25 MG Tablet PO (11:00)
[2024-08-23] MEDS: Glucerna Shake 120 ML LIQUID PO (11:00)
--- NOTE | 2024-08-23 11:22 | PCM.PN.SRG ---
Objective Data Objective Data Vital Signs: Vital Signs Temp Pulse Resp BP Pulse Ox O2 Del Method 97.6 F L 64 18 117/67 96 Room Air 08/23/24 07:47 08/23/24 10:53 08/23/24 07:47 08/23/24 10:53 08/23/24 07:47 08/23/24 07:47 Oxygen Delivery Method Room Air Weight: 226 lb 15.807 oz Body Mass Index (BMI) 34.4 Intake & Output: Intake and Output for Last 24 Hours 08/21/24 08/22/24 08/23/24 23:59 23:59 23:59 Intake Total 50 / 50 708.75 / 708.75 Output Total 250 / 250 800 / 800 Balance -200 / -200 -91.25 / -91.25 Lab / Micro Data Labs: Laboratory Results - last 24 hr 08/22/24 11:09: POC Glucose 182 H 08/22/24 15:56: POC Glucose 98 08/23/24 07:42: POC Glucose 162 H
--- NOTE | 2024-08-23 11:22 | PCM.DC ---
Discharge Instructions Diet Discharge Diet: Carb Control Diet (increased protein intake to help with wound healing. ) DC O2, CPAP, BIPAP needs Additional Home O2 Discharge instructions: No Dressing / Incision Weight Bearing Status: Full weight bearing Keep extremity elevated above heart level: Operative Extremity Additional Activity Instructions:: Keep Wound VAC dressing 125 mmHg. Keep wound VAC in place. Do not get wet. Cam walker boot in place. Dressing / Incision Call your doctor if your incision/area has: Continuous Slow Oozing, Increased Pain/ Swelling, Increased Redness, Foul Smelling Discharge and Swelling at the incision site Call your doctor if you observe: Fever of 101 or Higher, Inability to urinate, Inability to have a bowel movement, Shortness of breath, Chest pain, Calf discomfort and Uncontrolled pain Change Dressing in: leave in place till F/U Additional Dressing/Incision Instructions:: Keep wound VAC in place until follow up. IF have issues over the weekend, call hospital cold type composing machine operator to get in touch with Dr. Chapman or go to the ER. Follow Up Care Please Follow Up With: Victorino Chapman MD When: Monday08/26/24 at 1 pm Test Results: Test results from this visit will be discussed in further detail at your follow-up appointment, if applicable. Discharge Plan Admission Admit Date/Time: 08/21/24 09:34 Attending Provider: Victorino Chapman Primary Care Provider: Gulshan Early Chi Discharge Orders/Prescriptions Prescriptions: New oxycodone 5 mg tablet 5 mg PO Q6H PRN (Reason: pain) 5 Days Qty: 14 0RF Continued omeprazole 40 mg capsule,delayed release(DR/EC) 40 mg PO DAILY aspirin [Adult Low Dose Aspirin] 81 mg tablet,delayed release (DR/EC) 81 mg PO DAILY Patient Comments: STOP PER DR. CHAPMAN PROTOCOL (DME) pen needle, diabetic [BD Ultra-Fine Catalina Pen Needle] 32 gauge x 5/32 needle See Rx Instructions .Route Qty: 100 3RF Rx Instructions: daily Fiasp FlexTouch U-100 Insulin 100 unit/mL (3 mL) insulin pen 10 unit subcut TID Qty: 9 5RF (DME) True Metrix Glucose Test Strip Strip See Rx Instructions .Route Qty: 100 6RF Rx Instructions: three times dailyl glimepiride 4 mg tablet 4 mg PO DAILY Qty: 30 6RF paroxetine HCl 40 MG tablet 40 mg PO DAILY pregabalin 150 MG capsule 150 mg PO TID rosuvastatin [Crestor] 40 mg Tablet 40 mg PO DAILY dapagliflozin propanediol [Farxiga] 10 mg tablet 10 mg PO DAILY acetaminophen 500 mg Tablet 1,000 mg PO Q6H PRN PRN (Reason: Pain Score 1-3) Qty: 0 0RF vitamin B complex [Vitamins B Complex] Capsule 1 cap PO DAILY metoprolol succinate 50 mg Tablet Extended Release 24 Hr 50 mg PO DAILY 30 Days Qty: 30 0RF albuterol sulfate 90 mcg/actuation HFA aerosol inhaler 1 puff inhalation Q6H PRN PRN (Reason: shortness of breath or wheezing) Mounjaro 7.5 mg/0.5 mL pen injector 10 mg subcut MO celecoxib 200 mg capsule 200 mg PO DAILY doxepin 25 mg capsule 25 mg PO QHS potassium chloride [Klor-Con M20] 20 mEq Tablet,Er Particles/Crystals 20 meq PO DAILY trazodone 150 mg tablet 150 mg PO QHS levothyroxine 150 mcg tablet 150 mcg PO DAILY montelukast 10 mg tablet 10 mg PO DAILY Referrals / Follow Up: Gulshan Early Chi, MD [Primary Care Provider] - Disposition Disposition (needs filled in before D/C Order can be placed): Home, Self Care
--- NOTE | 2024-08-23 11:33 | CASEMGMT ---
Spoke with Simran Navas NP, she states pt will follow at [facility] on Monday for vac removal. No need for [facility] to be set up. Pt will dc today.
--- NOTE | 2024-08-23 11:43 | WOUNDNOTE ---
wound photo: left posterior lower leg/Achilles area
[2024-08-23 11:54] LABS: Bedside Glucose 134 mg/dL (74-106)
--- NOTE | 2024-08-23 12:22 | DS.PCM_ITS ---
<Statement entered by Victorino Chapman MD - 08/23/24 13:56> Pt seen & evaluated w/YANNA. I personally interviewed & exam the pt. I was involved in all aspects of pt's orders, interpretation of results & treatment Providers Date of Admission: 08/21/24 Date of Discharge: 08/23/24 Primary Care Physician: Dr. Gulshan Early MD Consultations 08/22/24 15:38 Consult: Onc/Wound/vending machine assembler Routine Comment: Reason for Consult:: VAC change 08/23/24 Reason For Visit: Left leg wound split thickness skin graft Diagnosis Discharge Diagnosis (1) Wound of left ankle: Status: Acute Code(s): S91.002A - Unspecified open wound, left ankle, initial encounter Qualifiers: Encounter type: subsequent encounter Qualified Code(s): S91.002D - Unspecified open wound, left ankle, subsequent encounter Plan Wound VAC at 125 mmHg to stay on until she is seen Monday08/26/24 at the wound Healing center. She is to keep this area dry and wear the Cam walker to prevent pressure on the skin graft site. She has 5 more HBO treatments that she will complete next week. Medications at Discharge Home Medications omeprazole 40 mg capsule,delayed release 40 mg PO DAILY ACID REFLUX 10/18/18 paroxetine HCl 40 mg tablet 40 mg PO DAILY DEPRESSION 10/29/19 pregabalin 150 mg capsule 150 mg PO TID NERVE PAIN 10/29/19 aspirin 81 mg tablet,delayed release (Adult Low Dose Aspirin) 81 mg PO DAILY HEART HEALTH 07/21/20 rosuvastatin 40 mg tablet (Crestor) 40 mg PO DAILY CHOLESTEROL 08/26/22 pen needle, diabetic 32 gauge x 5/32 (BD Ultra-Fine Catal[place] Pen Needle) #100 ea 02/13/23 dapagliflozin propanediol 10 mg tablet (Farxiga) 10 mg PO DAILY DIABETES 03/01/23 blood sugar diagnostic (True Metrix Glucose Test Strip) #100 ea 03/24/23 glimepiride 4 mg tablet 4 mg PO DAILY diabetes #30 tabs 04/10/23 insulin aspart (niacinamide)(U-100) 100 unit/mL(3 mL) subcutaneous pen (Fiasp FlexTouch U-100 Insulin) 10 unit subcut TID diabetes #9 mL 05/29/23 albuterol sulfate 90 mcg/actuation aerosol inhaler 1 puff inhalation Q6H PRN PRN shortness of breath or wheezing 01/19/24 celecoxib 200 mg capsule 200 mg PO DAILY pain 02/21/24 doxepin 25 mg capsule 25 mg PO QHS sleep 02/21/24 levothyroxine 150 mcg tablet 150 mcg PO DAILY hypothyroid 02/21/24 montelukast 10 mg tablet 10 mg PO DAILY allergies/asthma 02/21/24 potassium chloride 20 mEq tablet,extended release(part/cryst) (Klor-Con M) 20 meq PO DAILY potassium supplement 02/21/24 trazodone 150 mg tablet 150 mg PO QHS sleep 02/21/24 acetaminophen 500 mg tablet 1,000 mg (2 x 500 mg) PO Q6H PRN PRN Pain Score 1-3 #0 tabs 04/02/24 vitamin B complex (Vitamins B Complex capsule) 1 cap PO DAILY 05/15/24 metoprolol succinate 50 mg tablet,extended release 24 hr 50 mg PO DAILY 30 days #30 tabs 05/22/24 tirzepatide 7.5 mg/0.5 mL subcutaneous pen injector (Mounjaro) 10 mg subcut MO diabetes 07/04/24 oxycodone 5 mg tablet 5 mg PO Q6H PRN pain 5 days #14 tabs 08/21/24 Hospital Course Operations - (Left posterior ankle wound excision with placement of STSG.) Summary of Care Provided Hospital Course: Patient was brought into the hospital on 08/21/24 for her surgery for placement of a split thickness skin graft with wound VAC placement. She initially had some issues with pain control so it was decided to admit her. Placement of her home wound VAC was done today. Skin graft shows good adherence with 100% take and good vascular ingrowth. She is tolerating the wound VAC well. She is to keep the VAC in place until she is seen at the wound healing center on Monday08/26/24. Physical Exam Narrative Left posterior ankle skin graft with good adherence take. Const alert, oriented x3 and no apparent distress General Appearance: cooperative and comfortable HEENT normocephalic Eyes General Eye: normal appearance of both eyes Neck full ROM Lymph Lymphatic: no lymphedema noted Resp normal respiratory effort and normal air movement Effort and Inspection: able to speak in complete sentences Cardio regular rate and regular rhythm Back/Spine normal ROM Extremity normal capillary refill Skin Wound Narrative: Left posterior leg/ankle skin graft shows good adherence with the skin graft with 100% take and good vascular ingrowth. Home wound VAC placed at 125 mmHg without difficulty. Neuro oriented x3 Psych mental status grossly normal, thought process normal and cooperative Appearance: grossly normal Weight / BMI Weight Weight: 226 lb 15.807 oz Body Mass Index (BMI) 34.4 ABG / Lab / Microbiology Data Laboratory: Laboratory Results - last 24 hr 08/22/24 15:56: POC Glucose 98 08/23/24 07:42: POC Glucose 162 H 08/23/24 11:35: POC Glucose 134 H D/C Instructions Discharge Diet: Carb Control Diet (increased protein intake to help with wound healing. ) Weight Bearing Status: Full weight bearing Keep extremity elevated above heart level: Operative Extremity Additional Activity Instructions: Keep Wound VAC dressing 125 mmHg. Keep wound VAC in place. Do not get wet. Cam walker boot in place. Call your doctor if your incision/area has: Continuous Slow Oozing, Increased Pain/ Swelling, Increased Redness, Foul Smelling Discharge and Swelling at the incision site Call your doctor if you observe: Fever of 101 or Higher, Inability to urinate, Inability to have a bowel movement, Shortness of breath, Chest pain, Calf discomfort and Uncontrolled pain Additional Dressing/Incision Instructions: Keep wound VAC in place until follow up. IF have issues over the weekend, call hospital drilling machine operator to get in touch with Dr. Chapman or go to the ER. DC O2, CPAP, BIPAP Needs Additional Home O2 Discharge instructions: No DC home with Oxygen: No Please Follow Up With: Victorino Chapman MD When: Monday08/26/24 at 1 pm Meaningful Use Info Meaningful Use Meaningful Use Diagnoses (Choose all that apply): None applicable Ischemic Stroke Statin Dosing Therapy Reference: STATIN DOSE THERAPY REFERENCE: * Patients > 75 years receive moderate or high dose statin therapy. * Patients 75 years or YOUNGER should receive HIGH intensity statin dose unless contraindicated. You will be required to document reason for non-treatment if statin daily dose does not meet guidelines. HIGH DOSE STATIN THERAPY DAILY Atorvastatin > than or = to 40 mg Rosuvastatin > than or = to 20 mg Amlodipine + Atorvastatin > than or = to 2.5/40 mg Ezetimibe + Simvastatin 10/80 mg Simvastatin 80mg Discharge Plan Admission Admit Date/Time: 08/21/24 09:34 Attending Provider: Victorino Chapman Primary Care Provider: Gulshan Early Chi Discharge Orders/Prescriptions Prescriptions: New oxycodone 5 mg tablet 5 mg PO Q6H PRN (Reason: pain) 5 Days Qty: 14 0RF Continued omeprazole 40 mg capsule,delayed release(DR/EC) 40 mg PO DAILY aspirin [Adult Low Dose Aspirin] 81 mg tablet,delayed release (DR/EC) 81 mg PO DAILY Patient Comments: STOP PER DR. CHAPMAN PROTOCOL (DME) pen needle, diabetic [BD Ultra-Fine [place] Pen Needle] 32 gauge x 5/32 needle See Rx Instructions .Route Qty: 100 3RF Rx Instructions: daily Fiasp FlexTouch U-100 Insulin 100 unit/mL (3 mL) insulin pen 10 unit subcut TID Qty: 9 5RF (DME) True Metrix Glucose Test Strip Strip See Rx Instructions .Route Qty: 100 6RF Rx Instructions: three times dailyl glimepiride 4 mg tablet 4 mg PO DAILY Qty: 30 6RF paroxetine HCl 40 MG tablet 40 mg PO DAILY pregabalin 150 MG capsule 150 mg PO TID rosuvastatin [Crestor] 40 mg Tablet 40 mg PO DAILY dapagliflozin propanediol [Farxiga] 10 mg tablet 10 mg PO DAILY acetaminophen 500 mg Tablet 1,000 mg PO Q6H PRN PRN (Reason: Pain Score 1-3) Qty: 0 0RF vitamin B complex [Vitamins B Complex] Capsule 1 cap PO DAILY metoprolol succinate 50 mg Tablet Extended Release 24 Hr 50 mg PO DAILY 30 Days Qty: 30 0RF albuterol sulfate 90 mcg/actuation HFA aerosol inhaler 1 puff inhalation Q6H PRN PRN (Reason: shortness of breath or wheezing) Mounjaro 7.5 mg/0.5 mL pen injector 10 mg subcut MO celecoxib 200 mg capsule 200 mg PO DAILY doxepin 25 mg capsule 25 mg PO QHS potassium chloride [Klor-Con M20] 20 mEq Tablet,Er Particles/Crystals 20 meq PO DAILY trazodone 150 mg tablet 150 mg PO QHS levothyroxine 150 mcg tablet 150 mcg PO DAILY montelukast 10 mg tablet 10 mg PO DAILY Referrals / Follow Up: Gulshan Early Chi, MD [Primary Care Provider] - Disposition Disposition (needs filled in before D/C Order can be placed): Home, Self Care Charges/Coding Procedures Integumentary 111xxx-113xx: 56331 Global Visit
[2024-08-23 15:01] VITALS: BP 124/70; PULSE 58; RESP 16; TEMP 36.6; O2SAT 97
== END 2024-08-23 15:17 | disposition home or self-care (01) ==
LOC: SDC 13:31 → MS3 13:31
PROVIDERS: Admitting Provider Surgery Plastic and Reconstructive Surgery; PCP Family Medicine Geriatric Medicine; Referring Provider Surgery Plastic and Reconstructive Surgery; Visit Provider Surgery Plastic and Reconstructive Surgery
PROC: (CPT 15002; principal; 2024-08-21 07:15)
DX: T86.821 Skin graft (allograft) (autograft) failure (principal); E66.01 Morbid (severe) obesity due to excess calories; E11.51 Type 2 diabetes mellitus with diabetic peripheral angiopathy without gangrene; Z79.4 Long term (current) use of insulin; E11.42 Type 2 diabetes mellitus with diabetic polyneuropathy; Z79.84 Long term (current) use of oral hypoglycemic drugs; E78.5 Hyperlipidemia, unspecified; S91.002D Unspecified open wound, left ankle, subsequent encounter; Z79.85 Long-term (current) use of injectable non-insulin antidiabetic drugs; I10 Essential (primary) hypertension; Z68.34 Body mass index [BMI] 34.0-34.9, adult; Z79.890 Hormone replacement therapy; Z79.899 Other long term (current) drug therapy; F17.290 Nicotine dependence, other tobacco product, uncomplicated; X58.XXXD Exposure to other specified factors, subsequent encounter; Y83.2 Surgical operation with anastomosis, bypass or graft as the cause of abnormal reaction of the patient, or of later complication, without mention of misadventure at the time of the procedure
CPT/HCPCS: 15002; 15100; 00400; 82962; 94668; 96372; 97802; 99221; 99406; A4216; G0378; J2405

== ENCOUNTER → 2024-08-28 | Outpatient (CLI) | payer MEDICARE, MEDICAID, SELFPAY ==
[2024-08-28 17:33] LABS: Microalbumin,Random Urine 48.7 mg/L (NO RANGE EST.); Microalbumin:Creatinine Ratio 84.8 mg/g CRE (<30 mg/g CRE)
== END | disposition home or self-care (01) ==
LOC: POLAB3 16:19
PROVIDERS: PCP Family Medicine Geriatric Medicine; Visit Provider Family Medicine Geriatric Medicine
DX: E11.65 Type 2 diabetes mellitus with hyperglycemia (principal)
CPT/HCPCS: 82043; 82570

== ENCOUNTER 2024-09-09 13:00 | Outpatient (RCR) | payer MEDICARE, MEDICAID, SELFPAY ==
[2024-08-11 00:20] VITALS: BP 125/76; BP 128/66; BP 91/52; PULSE 76; PULSE 79; PULSE 83; RESP 18; TEMP 36.2; TEMP 36.3; BMI 34.9
[2024-08-13 10:23] LABS: Bedside Glucose 135 mg/dL (74-106)
--- NOTE | 2024-08-13 11:13 | PCM.HBO.PN ---
History of Present Illness Date of Service: 08/13/24 Chief Complaint: Surgical dehiscence with exposure of the Achilles tendon left lower extremity; Allograft failure History of Wound: 59 y/o female with DM type II with peripheral polyneuropathy, peripheral vascular disease, asthma, morbid obesity, HTN, and hyperlipidemia presented to the Wound Center for continued care of surgical dehiscence of her posterior left lower extremity with exposure of the Achilles tendon. The patient underwent surgical intervention to correct calcaneal gait with plantar ulceration of the left heel on 01/26/2024. At that time of surgery she was found to have tendo Achilles tear to the left lower extremity resulting in a calcaneal gait. Tendon was debrided and a shortening of the tendo Achilles was performed in addition to FHL tendon transfer. 3 weeks later patient had fallen placing weight to the foot resulting in a tear and dehiscence of the surgical site with exposure of the Achilles tendon. She was returned to the OR for debridement on 02/22/2024 and wound VAC was applied over ulcerative area. She did have PICC line and completed 6 weeks of IV antibiotics during stay in the transitional care unit. She completed IV antibiotic 04/04/2024 PICC line was pulled and she was discharged from the transitional care unit to home. Surgery by Dr. Solano on 06/10/24 for Split-thickness skin grafting from the left lateral thigh to the left Achilles tendon ankle wound 7 x [address] Solano on 05/20/23 for Excision of left posterior ankle wound, including biofilm, subcutaneous tissue, fascia, and tendon, 7 x 3 cm and Irrigating wound VAC, vera flow, not disposable AND 05/22/24 - Excision of left posterior ankle wound, including biofilm, subcutaneous tissue, fascia, and tendon and Placement of dermal substitute (Integra) and wound VAC placed. Operative culture 05/15/24 positive for MSSA and Anaerobic cocci. Treated with Doxy, cefdinir, and Flagyl. Patient underwent multiple debridements and eventual skin grafting on 11 June 2024. She has developed compromise of her skin graft. Progress of Wound: Progress: Today represents her 20th hyperbaric oxygen therapy treatment. She has been scheduled for 20 sessions. Tolerance of hyperbaric oxygen therapy: Hyperbaric oxygen treatment was administered as per the facility's protocol - 100% oxygen at 2 ALEYDA for 90 minutes without air breaks. The patient tolerated the hyperbaric oxygen therapy well without complications or complaints. Upon emergence from the hyperbaric chamber, the patient's vital signs remained stable. Pre and post blood sugars as documented - Pre-HBO: 180; Post-HBO:171. She was discharged in stable condition. Objective Data Objective Data Vital Signs: Vital Signs Temp Pulse Resp BP 97.3 F L 83 18 125/76 H 08/11/24 00:20 08/11/24 00:20 08/11/24 00:20 08/11/24 00:20 Weight: 230 lb Body Mass Index (BMI) 34.9 Lab / Micro Data Labs: Laboratory Results - last 24 hr 08/13/24 10:05: POC Glucose 135 H Exam Physical Exam Const alert, oriented x3 and no apparent distress General Appearance: cooperative HEENT normocephalic and TM's normal bilaterally Head and Scalp: atraumatic Eyes General Eye: normal appearance of both eyes Resp normal respiratory effort, no use of accessory muscles and clear to auscultation bilaterally Effort and Inspection: able to speak in complete sentences Cardio regular rate and regular rhythm Psych affect normal Charges/Coding Wound Center CF Procedures HBO Supervision: [id number] Hyperbaric Oxygen; supervision Assessment/Plan Assessment/Plan (1) Skin graft (allograft) (autograft) failure: CODE(S): T86.821 - Skin graft (allograft) (autograft) failure (2) Wound of left ankle: CODE(S): S91.002A - Unspecified open wound, left ankle, initial encounter QUALIFIERS: Encounter type: subsequent encounter Qualified Code(s): S91.002D - Unspecified open wound, left ankle, subsequent encounter (3) Type 2 diabetes mellitus with hyperglycemia: CODE(S): E11.65 - Type 2 diabetes mellitus with hyperglycemia QUALIFIERS: Diabetes mellitus laborer marine terminal insulin use: without nursing home use Qualified Code(s): E11.65 - Type 2 diabetes mellitus with hyperglycemia PLAN: Plan The patient tolerated hyperbaric oxygen therapy well, which will be continued as per her medical plan.
[2024-08-13 12:23] VITALS: BP 119/76; BP 122/67; PULSE 67; PULSE 70; RESP 15; RESP 16; TEMP 36.5; TEMP 36.7
[2024-08-13 12:33] LABS: Bedside Glucose 168 mg/dL (74-106)
[2024-08-15 10:26] LABS: Bedside Glucose 153 mg/dL (74-106)
[2024-08-15 12:30] VITALS: BP 109/64; BP 118/68; PULSE 62; PULSE 66; RESP 14; RESP 15; TEMP 35.7; TEMP 35.8
[2024-08-15 12:35] LABS: Bedside Glucose 104 mg/dL (74-106)
--- NOTE | 2024-08-15 12:37 | HBO.PN.PCM_ITS ---
History of Present Illness Date of Service: 08/15/24 Chief Complaint: Surgical dehiscence with exposure of the Achilles tendon left lower extremity; Allograft failure History of Wound: 59 y/o female with DM type II with peripheral polyneuropathy, peripheral vascular disease, asthma, morbid obesity, HTN, and hyperlipidemia [facility] for continued care of surgical dehiscence of her posterior left lower extremity with exposure of the Achilles tendon. The patient underwent surgical intervention to correct calcaneal gait with plantar ulceration of the left heel on 01/26/2024. At that time of surgery she was found to have tendo Achilles tear to the left lower extremity resulting in a calcaneal gait. Tendon was debrided and a shortening of the tendo Achilles was performed in addition to FHL tendon transfer. 3 weeks later patient had fallen placing weight to the foot resulting in a tear and dehiscence of the surgical site with exposure of the Achilles tendon. She was returned to the OR for debridement on 02/22/2024 and wound VAC was applied over ulcerative area. She did have PICC line and completed 6 weeks of IV antibiotics during stay in the transitional care unit. She completed IV antibiotic 04/04/2024 PICC line was pulled and she was discharged from the transitional care unit to home. Surgery by Dr. Solano on 06/10/24 for Split-thickness skin grafting from the left lateral thigh to the left Achilles tendon ankle wound 7 x [address] Solano on 05/20/23 for Excision of left posterior ankle wound, including biofilm, subcutaneous tissue, fascia, and tendon, 7 x 3 cm and Irrigating wound VAC, vera flow, not disposable AND 05/22/24 - Excision of left posterior ankle wound, including biofilm, subcutaneous tissue, fascia, and tendon and Placement of dermal substitute (Integra) and wound VAC placed. Operative culture 05/15/24 positive for MSSA and Anaerobic cocci. Treated with Doxy, cefdinir, and Flagyl. Patient underwent multiple debridements and eventual skin grafting on 11 June 2024. She has developed compromise of her skin graft. Progress of Wound: Progress: Today represents her hyperbaric oxygen therapy treatment. Tolerance of hyperbaric oxygen therapy: Hyperbaric oxygen treatment was administered as per the facility's protocol. 100% oxygen at 2 ALEYDA for 90 minutes without air breaks. She tolerated hyperbaric oxygen therapy well without complications or complaints. Upon emergence from the hyperbaric chamber, her vital signs remained stable. Vitals as documented. She was discharged in stable condition. Objective Data Objective Data Vital Signs: Vital Signs Temp Pulse Resp BP 96.2 F L 66 15 118/68 08/15/24 12:30 08/15/24 12:30 08/15/24 12:30 08/15/24 12:30 Weight: 230 lb Body Mass Index (BMI) 34.9 Lab / Micro Data Labs: Laboratory Results - last 24 hr 08/15/24 10:09: POC Glucose 153 H 08/15/24 12:13: POC Glucose 104 Exam Physical Exam Const alert, oriented x3 and no apparent distress General Appearance: cooperative, comfortable and well kempt HEENT normocephalic, head/scalp atraumatic and hearing grossly normal bilaterally Eyes EOMs intact bilaterally Neck full ROM and supple General: normal visual inspection Resp normal respiratory effort Effort and Inspection: able to speak in complete sentences Neuro oriented x3, CN's II-XII intact bilaterally and moves all extremities Psych mental status grossly normal, thought process normal, cooperative and affect normal Charges/Coding [facility] CF Procedures HBO Supervision: [id number] Hyperbaric Oxygen; supervision Assessment/Plan Assessment/Plan (1) Skin graft (allograft) (autograft) failure: CODE(S): T86.821 - Skin graft (allograft) (autograft) failure (2) Wound of left ankle: CODE(S): S91.002A - Unspecified open wound, left ankle, initial encounter QUALIFIERS: Encounter type: subsequent encounter Qualified Code(s): S91.002D - Unspecified open wound, left ankle, subsequent encounter (3) Type 2 diabetes mellitus with hyperglycemia: CODE(S): E11.65 - Type 2 diabetes mellitus with hyperglycemia QUALIFIERS: Diabetes mellitus senior living insulin use: without senior living use Qualified Code(s): E11.65 - Type 2 diabetes mellitus with hyperglycemia PLAN: Plan The patient tolerated hyperbaric oxygen therapy well, which will be continued as per her medical plan. This note was generated with [employer] software. It may contain incorrect words, spelling, and punctuation that were not noted in checking the note before signing.
[2024-08-16 10:16] LABS: Bedside Glucose 162 mg/dL (74-106)
[2024-08-16 12:30] LABS: Bedside Glucose 104 mg/dL (74-106)
[2024-08-16 12:43] VITALS: BP 121/72; BP 128/73; PULSE 67; PULSE 69; RESP 15; TEMP 35.6; TEMP 35.9
[2024-08-19 10:34] LABS: Bedside Glucose 145 mg/dL (74-106)
--- NOTE | 2024-08-19 11:55 | PCM.HBO.PN ---
History of Present Illness Date of Service: 08/19/24 Chief Complaint: Surgical dehiscence with exposure of the Achilles tendon left lower extremity; Allograft failure History of Wound: 59 y/o female with DM type II with peripheral polyneuropathy, peripheral vascular disease, asthma, morbid obesity, HTN, and hyperlipidemia presented to the [facility] for continued care of surgical dehiscence of her posterior left lower extremity with exposure of the Achilles tendon. The patient underwent surgical intervention to correct calcaneal gait with plantar ulceration of the left heel on 01/26/2024. At that time of surgery she was found to have tendo Achilles tear to the left lower extremity resulting in a calcaneal gait. Tendon was debrided and a shortening of the tendo Achilles was performed in addition to FHL tendon transfer. 3 weeks later patient had fallen placing weight to the foot resulting in a tear and dehiscence of the surgical site with exposure of the Achilles tendon. She was returned to the OR for debridement on 02/22/2024 and wound VAC was applied over ulcerative area. She did have PICC line and completed 6 weeks of IV antibiotics during stay in the transitional care unit. She completed IV antibiotic 04/04/2024 PICC line was pulled and she was discharged from the transitional care unit to home. Surgery by Dr. Solano on 06/10/24 for Split-thickness skin grafting from the left lateral thigh to the left Achilles tendon ankle wound 7 x [address] Solano on 05/20/23 for Excision of left posterior ankle wound, including biofilm, subcutaneous tissue, fascia, and tendon, 7 x 3 cm and Irrigating wound VAC, vera flow, not disposable AND 05/22/24 - Excision of left posterior ankle wound, including biofilm, subcutaneous tissue, fascia, and tendon and Placement of dermal substitute (Integra) and wound VAC placed. Operative culture 05/15/24 positive for MSSA and Anaerobic cocci. Treated with Doxy, cefdinir, and Flagyl. Patient underwent multiple debridements and eventual skin grafting on 11 June 2024. She has developed compromise of her skin graft. Progress of Wound: Progress: Today represents her hyperbaric oxygen therapy treatment. Tolerance of hyperbaric oxygen therapy: Hyperbaric oxygen treatment was administered as per the facility's protocol. 100% oxygen at 2 ALEYDA for 90 minutes without air breaks. She tolerated hyperbaric oxygen therapy well without complications or complaints. Upon emergence from the hyperbaric chamber, her vital signs remained stable. Vitals as documented. She was discharged in stable condition. Objective Data Objective Data Vital Signs: Vital Signs Temp Pulse Resp BP 96.9 F L 80 14 118/68 08/19/24 12:33 08/19/24 12:33 08/19/24 12:33 08/19/24 12:33 Weight: 230 lb Body Mass Index (BMI) 34.9 Lab / Micro Data Labs: Laboratory Results - last 24 hr 08/19/24 10:17: POC Glucose 145 H 08/19/24 12:24: POC Glucose 172 H Exam Physical Exam Const alert, oriented x3 and no apparent distress General Appearance: cooperative HEENT normocephalic and TM's normal bilaterally Head and Scalp: atraumatic Eyes General Eye: normal appearance of both eyes Resp normal respiratory effort, no use of accessory muscles and clear to auscultation bilaterally Effort and Inspection: able to speak in complete sentences Cardio regular rate and regular rhythm Psych affect normal Charges/Coding [facility] CF Procedures HBO Supervision: [id number] Hyperbaric Oxygen; supervision Assessment/Plan Assessment/Plan (1) Skin graft (allograft) (autograft) failure: CODE(S): T86.821 - Skin graft (allograft) (autograft) failure (2) Wound of left ankle: CODE(S): S91.002A - Unspecified open wound, left ankle, initial encounter QUALIFIERS: Encounter type: subsequent encounter Qualified Code(s): S91.002D - Unspecified open wound, left ankle, subsequent encounter (3) Type 2 diabetes mellitus with hyperglycemia: CODE(S): E11.65 - Type 2 diabetes mellitus with hyperglycemia QUALIFIERS: Diabetes mellitus [facility] insulin use: without 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
[2024-08-19 12:33] VITALS: BP 117/63; BP 118/68; PULSE 68; PULSE 80; RESP 14; RESP 15; TEMP 35.7; TEMP 36.1
[2024-08-19 12:46] LABS: Bedside Glucose 172 mg/dL (74-106)
[2024-08-20 10:05] LABS: Bedside Glucose 129 mg/dL (74-106)
[2024-08-20 10:27] LABS: Bedside Glucose 172 mg/dL (74-106)
[2024-08-20 12:40] LABS: Bedside Glucose 178 mg/dL (74-106)
[2024-08-20 13:43] VITALS: BP 117/70; BP 129/68; PULSE 63; PULSE 69; RESP 16; TEMP 35.6; TEMP 35.7
--- NOTE | 2024-08-21 11:24 | PCM.HBO.PN ---
History of Present Illness Date of Service: 08/20/24 Chief Complaint: Surgical dehiscence with exposure of the Achilles tendon left lower extremity; Allograft failure History of Wound: 59 y/o female with DM type II with peripheral polyneuropathy, peripheral vascular disease, asthma, morbid obesity, HTN, and hyperlipidemia presented to the [facility] for continued care of surgical dehiscence of her posterior left lower extremity with exposure of the Achilles tendon. The patient underwent surgical intervention to correct calcaneal gait with plantar ulceration of the left heel on 01/26/2024. At that time of surgery she was found to have tendo Achilles tear to the left lower extremity resulting in a calcaneal gait. Tendon was debrided and a shortening of the tendo Achilles was performed in addition to FHL tendon transfer. 3 weeks later patient had fallen placing weight to the foot resulting in a tear and dehiscence of the surgical site with exposure of the Achilles tendon. She was returned to the OR for debridement on 02/22/2024 and wound VAC was applied over ulcerative area. She did have PICC line and completed 6 weeks of IV antibiotics during stay in the transitional care unit. She completed IV antibiotic 04/04/2024 PICC line was pulled and she was discharged from the transitional care unit to home. Surgery by Dr. Solano on 06/10/24 for Split-thickness skin grafting from the left lateral thigh to the left Achilles tendon ankle wound 7 x [address] Solano on 05/20/23 for Excision of left posterior ankle wound, including biofilm, subcutaneous tissue, fascia, and tendon, 7 x 3 cm and Irrigating wound VAC, vera flow, not disposable AND 05/22/24 - Excision of left posterior ankle wound, including biofilm, subcutaneous tissue, fascia, and tendon and Placement of dermal substitute (Integra) and wound VAC placed. Operative culture 05/15/24 positive for MSSA and Anaerobic cocci. Treated with Doxy, cefdinir, and Flagyl. Patient underwent multiple debridements and eventual skin grafting on 11 June 2024. She has developed compromise of her skin graft. The patient has been undergoing hyperbaric oxygen therapy as per serial documentation, and is scheduled to undergo repeat surgical skin grafting of her wound on Monday, August 21, 2024. Hyperbaric oxygen therapy today has been performed due to a compromise of her prior skin graft, and as preparation for a repeat skin grafting procedure. Progress of Wound: Progress: Today represents her 24 hyperbaric oxygen therapy treatment. Tolerance of hyperbaric oxygen therapy: Hyperbaric oxygen treatment was administered as per the facility's protocol. 100% oxygen at 2 ALEYDA for 90 minutes without air breaks. She tolerated hyperbaric oxygen therapy well without complications or complaints. Upon emergence from the hyperbaric chamber, her vital signs remained stable. Vitals as documented. Preprocedure blood sugar was 172. Postprocedure blood sugar was 178. The patient was discharged in stable condition. Objective Data Objective Data Vital Signs: Vital Signs Temp Pulse Resp BP 96.0 F L 69 16 129/68 H 08/20/24 13:43 08/20/24 13:43 08/20/24 13:43 08/20/24 13:43 Weight: 230 lb Body Mass Index (BMI) 34.9 Lab / Micro Data Labs: Laboratory Results - last 24 hr 08/20/24 12:23: POC Glucose 178 H Exam Physical Exam Const alert, oriented x3, no apparent distress and well nourished General Appearance: cooperative and well developed HEENT normocephalic Head and Scalp: atraumatic Eyes EOMs intact bilaterally Neck no JVD General: trachea midline Resp normal respiratory effort and no use of accessory muscles Effort and Inspection: able to speak in complete sentences Cardio regular rate Psych affect normal Appearance: grossly normal Speech: normal speech Nursing Assessment and Debridement Post-Debridement Measurements and Additional Note: Post-Debridement Measurements/Treatment WC - Nurse 3 - General Ulcer D/C NN Start: 08/13/24 12:23 Freq: Status: Active Protocol: Activity Type Activity Date Activity User E-sign Co-sign Detail Recorded Client Recorded Date Recorded By Document 08/20/24 13:43 JF 0000 08/20/24 13:47 JF 08/20/24 13:43 Pain Scale: 0-10 Numeric Is Patient Pain Free? Yes WC - Visit Discharge Discharge Condition Stable Ambulatory Status Ambulatory,Cane Transportation Private Auto Medication Reconcilliation completed & No provided to patient/care provider Clinical Summary of Care Provided No Charges/Coding Wound Center CF Procedures HBO Supervision: [id number] Hyperbaric Oxygen; supervision Assessment/Plan Assessment/Plan (1) Skin graft (allograft) (autograft) failure: CODE(S): T86.821 - Skin graft (allograft) (autograft) failure (2) Wound of left ankle: CODE(S): S91.002A - Unspecified open wound, left ankle, initial encounter QUALIFIERS: Encounter type: subsequent encounter Qualified Code(s): S91.002D - Unspecified open wound, left ankle, subsequent encounter (3) Type 2 diabetes mellitus with hyperglycemia: CODE(S): E11.65 - Type 2 diabetes mellitus with hyperglycemia QUALIFIERS: Diabetes mellitus half-way insulin use: without half-way use Qualified Code(s): E11.65 - Type 2 diabetes mellitus with hyperglycemia PLAN: Plan The patient tolerated hyperbaric oxygen therapy well, which will be continued as per her medical plan. The patient is scheduled to undergo another surgical skin grafting procedure within the next 24 to 48 hours.
[2024-08-26 14:29] LABS: Bedside Glucose 112 mg/dL (74-106)
[2024-08-26 14:29] LABS: Bedside Glucose 119 mg/dL (74-106)
[2024-08-26 14:36] VITALS: BP 111/56; PULSE 74; RESP 16; TEMP 36.1; BMI 34.9
--- NOTE | 2024-08-26 17:13 | PCM.PN.BLA ---
Progress Note Post op day 5 from skin graft. Unable to do hyperbaric oxygen therapy today because sugar too low, but mentating well and had snack (seems fine overall and reports that she feels fine, just too low per our protocol). She's had the VAC on consistently. Physical Exam Narrative LLE: VAC removed. Graft with good take. Stuck down to the wound bed. Const alert and oriented x3 HEENT external ears normal, EAC's normal and TM's normal bilaterally Resp normal respiratory effort and clear to auscultation bilaterally Cardio regular rate Rhythm: regular rhythm Heart Sounds: S1 normal and S2 normal Assessment & Plan Assessment/Plan (1) Wound of left ankle: QUALIFIERS: Encounter type: subsequent encounter Qualified Code(s): S91.002D - Unspecified open wound, left ankle, subsequent encounter PLAN: XF twice daily to the skin graft with padding and bulky dressing to prevent shear forces (discussed extensively with the patient and she's in agreement). Fracture boot at all times as well while walking. (2) Skin graft (allograft) (autograft) failure: PLAN: Compromised skin graft. Continue hyperbaric oxygen to nurse the graft along. Procedures Integumentary 111xxx-113xx: [id number] Global Visit
--- NOTE | 2024-08-26 17:28 | PCM.HBO.PN ---
History of Present Illness Date of Service: 08/26/24 Chief Complaint: Surgical dehiscence with exposure of the Achilles tendon left lower extremity; Allograft failure History of Wound: 59 y/o female with DM type II with peripheral polyneuropathy, peripheral vascular disease, asthma, morbid obesity, HTN, and hyperlipidemia presented to the Wound Center for continued care of surgical dehiscence of her posterior left lower extremity with exposure of the Achilles tendon. The patient underwent surgical intervention to correct calcaneal gait with plantar ulceration of the left heel on 01/26/2024. At that time of surgery she was found to have tendo Achilles tear to the left lower extremity resulting in a calcaneal gait. Tendon was debrided and a shortening of the tendo Achilles was performed in addition to FHL tendon transfer. 3 weeks later patient had fallen placing weight to the foot resulting in a tear and dehiscence of the surgical site with exposure of the Achilles tendon. She was returned to the OR for debridement on 02/22/2024 and wound VAC was applied over ulcerative area. She did have PICC line and completed 6 weeks of IV antibiotics during stay in the transitional care unit. She completed IV antibiotic 04/04/2024 PICC line was pulled and she was discharged from the transitional care unit to home. Surgery by Dr. Solano on 06/10/24 for Split-thickness skin grafting from the left lateral thigh to the left Achilles tendon ankle wound 7 x [address] Solano on 05/20/23 for Excision of left posterior ankle wound, including biofilm, subcutaneous tissue, fascia, and tendon, 7 x 3 cm and Irrigating wound VAC, vera flow, not disposable AND 05/22/24 - Excision of left posterior ankle wound, including biofilm, subcutaneous tissue, fascia, and tendon and Placement of dermal substitute (Integra) and wound VAC placed. Operative culture 05/15/24 positive for MSSA and Anaerobic cocci. Treated with Doxy, cefdinir, and Flagyl. Patient underwent multiple debridements and eventual skin grafting on 11 June 2024. She has developed compromise of her skin graft. The patient has been undergoing hyperbaric oxygen therapy as per serial documentation, and is scheduled to undergo repeat surgical skin grafting of her wound on Monday, August 21, 2024. Hyperbaric oxygen therapy today has been performed due to a compromise of her prior skin graft, and as preparation for a repeat skin grafting procedure. Progress of Wound: unable to do today because low sugars Objective Data Objective Data Vital Signs: Vital Signs Temp Pulse Resp BP 96.9 F L 74 16 111/56 L 08/26/24 14:36 08/26/24 14:36 08/26/24 14:36 08/26/24 14:36 Weight: 230 lb Body Mass Index (BMI) 34.9 Lab / Micro Data Labs: Laboratory Results - last 24 hr 08/26/24 13:48: POC Glucose 112 H 08/26/24 14:05: POC Glucose 119 H Exam Nursing Assessment and Debridement Post-Debridement Measurements and Additional Note: Post-Debridement Measurements/Treatment WC - Nurse 1 - General Ulcer Assessment Start: 08/13/24 12:23 Freq: Status: Active Protocol: BUSTER Activity Type Activity Date Activity User E-sign Co-sign Detail Recorded Client Recorded Date Recorded By Document 08/26/24 14:36 [email or web address] [id number] 08/26/24 14:48 08/26/24 14:36 - Today's Visit Information Type of service Follow-up Visit (Physician/DIRECTOR SELECTION AND ADMINISTRATION ) Arrival Mode Ambulatory Patient Identification Verified (Name & Yes ) Patient Requires Transmission-Based No Precautions Finger Stick Blood Sugar(mg/dl) (if 112 indicated): Blood Sugar Stated by Patient Height and Weight Body Mass Index (BMI) 34.9 BMI Classification Obese Vital Signs Temperature (97.8 F-99.1 F) 96.9 F L Temperature Source Temporal Pulse Rate (60-100) 74 Pulse Location Monitor Respiratory Rate (12-18) 16 Respiratory rate source Observation Blood Pressure (90/60-120/80) 111/56 L Blood Pressure Mean (mm Hg) 74 Source Monitor Position Sitting Blood Pressure Location Left Arm History Since Last Visit- (Skip if this is Patient's initial visit) Have you changed medications since your No last visit? Any new allergies or adverse reactions No Had a fall/change in ADL's that may No increase risk of falls Signs or symptoms of abuse and/or No neglect since last visit Have you been in the hospital since your No last visit? Has dressing in place as prescribed Yes Has compression in place as prescribed Yes Has offloadiing in place as prescribed Yes Experienced any changes in pain level or No management Left Footwear Regular Shoe Right Footwear Regular Shoe Pain Scale: 0-10 Numeric Is Patient Pain Free? Yes - Nurse 1 - General Ulcer Measurement Start: 08/13/24 12:23 Freq: Status: Active Protocol: Activity Type Activity Date Activity User E-sign Co-sign Detail Recorded Client Recorded Date Recorded By Document 08/26/24 14:36 [id number] 08/26/24 14:48 08/26/24 14:36 Wound Center Nurse 1 5. L post ankle/ Achilles repair post-op -Combined with other wound No -Current Size (cm) - Length 0.1 -Current Size (cm) - Width 0.1 -Current Size (cm) - Depth 0.1 -Total Square Cm 0.01 -Photo Taken Yes -Epithelialization Large 67-100% Lower Limb Edema Present NA - Nurse 2 - General Ulcer CM Notes Start: 08/13/24 12:23 Freq: Status: Active Protocol: Activity Type Activity Date Activity User E-sign Co-sign Detail Recorded Client Recorded Date Recorded By Document 08/26/24 14:48 [id number] 08/26/24 14:49 08/26/24 14:48 Wound Center Nurse 2 5. L post ankle/ Achilles repair post-op -Correct Patient No -Correct Side, Site, Position No -Correct Procedure No -Procedure Performed No -Wound/Ulcer Outcome Not Healed Pain Scale: 0-10 Numeric Is Patient Pain Free? Yes - Nurse 3 - General Ulcer D/C NN Start: 08/13/24 12:23 Freq: Status: Active Protocol: Activity Type Activity Date Activity User E-sign Co-sign Detail Recorded Client Recorded Date Recorded By Document 08/26/24 15:06 [id number] 08/26/24 15:06 08/26/24 15:06 Wound Care Center Nurse 3 5. L post ankle/ Achilles repair post-op -Ulcer Cleansing Rinsed/ Irrigated with Saline -Primary Dressing Applied NonAdherent Contact Layer -Primary Dressing Covered/Secured with Dry Gauze & Roll Gauze, Secured with Tape left leg -Compression Wrap Mustapha Wrap -Other x2 Pain Scale: 0-10 Numeric Is Patient Pain Free? Yes - Visit Discharge Discharge Condition Stable Ambulatory Status Ambulatory,Cane Transportation Private Auto Medication Reconcilliation completed & No provided to patient/care provider Clinical Summary of Care Provided Yes Charges/Coding Procedures Integumentary 111xxx-113xx: [id number] Global Visit Assessment/Plan Assessment/Plan (1) Skin graft (allograft) (autograft) failure: CODE(S): T86.821 - Skin graft (allograft) (autograft) failure PLAN: Sugars too low today Given a snack. Feeling well, no changes in mentation. F/u tomorrow for hyperbaric oxygen
[2024-08-27 13:29] LABS: Bedside Glucose 170 mg/dL (74-106)
[2024-08-27 15:45] VITALS: BP 107/81; BP 191/64; PULSE 63; PULSE 75; RESP 16; RESP 17; TEMP 36; TEMP 36.1
[2024-08-27 15:52] LABS: Bedside Glucose 121 mg/dL (74-106)
--- NOTE | 2024-08-28 12:24 | PCM.HBO.PN ---
History of Present Illness Date of Service: 08/27/24 Chief Complaint: Surgical dehiscence with exposure of the Achilles tendon left lower extremity; Allograft failure History of Wound: 59 y/o female with DM type II with peripheral polyneuropathy, peripheral vascular disease, asthma, morbid obesity, HTN, and hyperlipidemia presented [facility] for continued care of surgical dehiscence of her posterior left lower extremity with exposure of the Achilles tendon. The patient underwent surgical intervention to correct calcaneal gait with plantar ulceration of the left heel on 01/26/2024. At that time of surgery she was found to have tendo Achilles tear to the left lower extremity resulting in a calcaneal gait. Tendon was debrided and a shortening of the tendo Achilles was performed in addition to FHL tendon transfer. 3 weeks later patient had fallen placing weight to the foot resulting in a tear and dehiscence of the surgical site with exposure of the Achilles tendon. She was returned to the OR for debridement on 02/22/2024 and wound VAC was applied over ulcerative area. She did have PICC line and completed 6 weeks of IV antibiotics during stay in the transitional care unit. She completed IV antibiotic 04/04/2024 PICC line was pulled and she was discharged from the transitional care unit to home. Surgery by Dr. Solano on 06/10/24 for Split-thickness skin grafting from the left lateral thigh to the left Achilles tendon ankle wound 7 x [address] Solano on 05/20/23 for Excision of left posterior ankle wound, including biofilm, subcutaneous tissue, fascia, and tendon, 7 x 3 cm and Irrigating wound VAC, vera flow, not disposable AND 05/22/24 - Excision of left posterior ankle wound, including biofilm, subcutaneous tissue, fascia, and tendon and Placement of dermal substitute (Integra) and wound VAC placed. Operative culture 05/15/24 positive for MSSA and Anaerobic cocci. Treated with Doxy, cefdinir, and Flagyl. Patient underwent multiple debridements and eventual skin grafting on 11 June 2024. She has developed compromise of her skin graft. The patient has been undergoing hyperbaric oxygen therapy as per serial documentation, and is scheduled to undergo repeat surgical skin grafting of her wound on Monday, August 21, 2024. Hyperbaric oxygen therapy has been performed due to a compromise of her prior skin graft, and as preparation for a repeat skin grafting procedure. Progress of Wound: Today represents the patient's 25th session of hyperbaric oxygen therapy. Tolerance of hyperbaric oxygen therapy: Hyperbaric oxygen therapy was administered as per the facility's protocol, at 100% oxygen at 2 richar for 90 minutes without air breaks. The patient tolerated hyperbaric oxygen therapy well, without complaints or complications. Upon emergence from the hyperbaric chamber, the patient's vital signs remained stable. The patient was discharged in good condition. Pre-treatment blood sugar was 170. Post-treatment blood sugar was 121. Objective Data Objective Data Vital Signs: Vital Signs Temp Pulse Resp BP 97.0 F L 75 16 191/64 H 08/27/24 15:45 08/27/24 15:45 08/27/24 15:45 08/27/24 15:45 Weight: 230 lb Body Mass Index (BMI) 34.9 Lab / Micro Data Labs: Laboratory Results - last 24 hr 08/27/24 13:11: POC Glucose 170 H 08/27/24 15:23: POC Glucose 121 H Exam Physical Exam Const alert, oriented x3 and no apparent distress General Appearance: cooperative and well developed HEENT normocephalic and EAC's normal Head and Scalp: atraumatic Eyes EOMs intact bilaterally Neck no JVD General: trachea midline Resp normal respiratory effort, no use of accessory muscles and clear to auscultation bilaterally Effort and Inspection: able to speak in complete sentences Cardio regular rate Psych affect normal Appearance: grossly normal Speech: normal speech Nursing Assessment and Debridement Post-Debridement Measurements and Additional Note: Post-Debridement Measurements/Treatment WC - Nurse 1 - General Ulcer Assessment Start: 08/13/24 12:23 Freq: Status: Active Protocol: [email or web address].[email or web address] Activity Type Activity Date Activity User E-sign Co-sign Detail Recorded Client Recorded Date Recorded By Document 08/26/24 14:36 GONZALO [id number] 08/26/24 14:48 GONZALO 08/26/24 14:36 - Today's Visit Information Type of service Follow-up Visit (Physician/COMMANDER POLICE RESERVES ) Arrival Mode Ambulatory Patient Identification Verified (Name & Yes ) Patient Requires Transmission-Based No Precautions Finger Stick Blood Sugar(mg/dl) (if 112 indicated): Blood Sugar Stated by Patient Height and Weight Body Mass Index (BMI) 34.9 BMI Classification Obese Vital Signs Temperature (97.8 F-99.1 F) 96.9 F L Temperature Source Temporal Pulse Rate (60-100) 74 Pulse Location Monitor Respiratory Rate (12-18) 16 Respiratory rate source Observation Blood Pressure (90/60-120/80) 111/56 L Blood Pressure Mean (mm Hg) 74 Source Monitor Position Sitting Blood Pressure Location Left Arm History Since Last Visit- (Skip if this is Patient's initial visit) Have you changed medications since your No last visit? Any new allergies or adverse reactions No Had a fall/change in ADL's that may No increase risk of falls Signs or symptoms of abuse and/or No neglect since last visit Have you been in the hospital since your No last visit? Has dressing in place as prescribed Yes Has compression in place as prescribed Yes Has offloadiing in place as prescribed Yes Experienced any changes in pain level or No management Left Footwear Regular Shoe Right Footwear Regular Shoe Pain Scale: 0-10 Numeric Is Patient Pain Free? Yes WC - Nurse 1 - General Ulcer Measurement Start: 08/13/24 12:23 Freq: Status: Active Protocol: Activity Type Activity Date Activity User E-sign Co-sign Detail Recorded Client Recorded Date Recorded By Document 08/26/24 14:36 JF [id number] 08/26/24 14:48 08/26/24 14:36 Wound Center Nurse 1 5. L post ankle/ Achilles repair post-op -Combined with other wound No -Current Size (cm) - Length 0.1 -Current Size (cm) - Width 0.1 -Current Size (cm) - Depth 0.1 -Total Square Cm 0.01 -Photo Taken Yes -Epithelialization Large 67-100% Lower Limb Edema Present NA WC - Nurse 2 - General Ulcer CM Notes Start: 08/13/24 12:23 Freq: Status: Active Protocol: Activity Type Activity Date Activity User E-sign Co-sign Detail Recorded Client Recorded Date Recorded By Document 08/26/24 14:48 [id number] 08/26/24 14:49 08/26/24 14:48 Wound Center Nurse 2 5. L post ankle/ Achilles repair post-op -Correct Patient No -Correct Side, Site, Position No -Correct Procedure No -Procedure Performed No -Wound/Ulcer Outcome Not Healed Pain Scale: 0-10 Numeric Is Patient Pain Free? Yes - Nurse 3 - General Ulcer D/C NN Start: 08/13/24 12:23 Freq: Status: Active Protocol: Activity Type Activity Date Activity User E-sign Co-sign Detail Recorded Client Recorded Date Recorded By Document 08/26/24 15:06 DOMO [id number] 08/26/24 15:06 DOMO 08/26/24 15:06 Wound Care Center Nurse 3 5. L post ankle/ Achilles repair post-op -Ulcer Cleansing Rinsed/ Irrigated with Saline -Primary Dressing Applied NonAdherent Contact Layer -Primary Dressing Covered/Secured with Dry Gauze & Roll Gauze, Secured with Tape left leg -Compression Wrap Mustapha Wrap -Other x2 Pain Scale: 0-10 Numeric Is Patient Pain Free? Yes WC - Visit Discharge Discharge Condition Stable Ambulatory Status Ambulatory,Cane Transportation Private Auto Medication Reconcilliation completed & No provided to patient/care provider Clinical Summary of Care Provided Yes Charges/Coding Wound Center CF Procedures HBO Supervision: [id number] Hyperbaric Oxygen; supervision Assessment/Plan Assessment/Plan (1) Skin graft (allograft) (autograft) failure: CODE(S): T86.821 - Skin graft (allograft) (autograft) failure PLAN: Sugars too low today Given a snack. Feeling well, no changes in mentation. F/u tomorrow for hyperbaric oxygen (2) Wound of left ankle: CODE(S): S91.002A - Unspecified open wound, left ankle, initial encounter QUALIFIERS: Encounter type: subsequent encounter Qualified Code(s): S91.002D - Unspecified open wound, left ankle, subsequent encounter (3) Type 2 diabetes mellitus with hyperglycemia: CODE(S): E11.65 - Type 2 diabetes mellitus with hyperglycemia QUALIFIERS: Diabetes mellitus long term acute care registered nurse insulin use: without long term acute care registered nurse use Qualified Code(s): E11.65 - Type 2 diabetes mellitus with hyperglycemia PLAN: Plan The patient appears to be tolerating hyperbaric oxygen therapy well, which will continue as per the patient's medical plan.
[2024-08-28 13:19] LABS: Bedside Glucose 133 mg/dL (74-106)
--- NOTE | 2024-08-28 13:22 | PCM.HBO.PN ---
History of Present Illness Date of Service: 08/28/24 Chief Complaint: Surgical dehiscence with exposure of the Achilles tendon left lower extremity; Allograft failure History of Wound: 59 y/o female with DM type II with peripheral polyneuropathy, peripheral vascular disease, asthma, morbid obesity, HTN, and hyperlipidemia presented to the [facility] for continued care of surgical dehiscence of her posterior left lower extremity with exposure of the Achilles tendon. The patient underwent surgical intervention to correct calcaneal gait with plantar ulceration of the left heel on 01/26/2024. At that time of surgery she was found to have tendo Achilles tear to the left lower extremity resulting in a calcaneal gait. Tendon was debrided and a shortening of the tendo Achilles was performed in addition to FHL tendon transfer. 3 weeks later patient had fallen placing weight to the foot resulting in a tear and dehiscence of the surgical site with exposure of the Achilles tendon. She was returned to the OR for debridement on 02/22/2024 and wound VAC was applied over ulcerative area. She did have PICC line and completed 6 weeks of IV antibiotics during stay in the transitional care unit. She completed IV antibiotic 04/04/2024 PICC line was pulled and she was discharged from the transitional care unit to home. Surgery by Dr. Solano on 06/10/24 for Split-thickness skin grafting from the left lateral thigh to the left Achilles tendon ankle wound 7 x [address] Solano on 05/20/23 for Excision of left posterior ankle wound, including biofilm, subcutaneous tissue, fascia, and tendon, 7 x 3 cm and Irrigating wound VAC, vera flow, not disposable AND 05/22/24 - Excision of left posterior ankle wound, including biofilm, subcutaneous tissue, fascia, and tendon and Placement of dermal substitute (Integra) and wound VAC placed. Operative culture 05/15/24 positive for MSSA and Anaerobic cocci. Treated with Doxy, cefdinir, and Flagyl. Patient underwent multiple debridements and eventual skin grafting on 11 June 2024. She has developed compromise of her skin graft. The patient has been undergoing hyperbaric oxygen therapy as per serial documentation, and is scheduled to undergo repeat surgical skin grafting of her wound on Monday, August 21, 2024. Hyperbaric oxygen therapy has been performed due to a compromise of her prior skin graft, and as preparation for a repeat skin grafting procedure. Progress of Wound: Today represents the patient's 26th session of hyperbaric oxygen therapy. Tolerance of hyperbaric oxygen therapy: Hyperbaric oxygen therapy was administered as per the facility's protocol, at 100% oxygen at 2 richar for 90 minutes without air breaks. The patient tolerated hyperbaric oxygen therapy well, without complaints or complications. Upon emergence from the hyperbaric chamber, the patient's vital signs remained stable. The patient was discharged in good condition. Blood sugars as documented. Objective Data Objective Data Vital Signs: Vital Signs Temp Pulse Resp BP 97.0 F L 75 16 191/64 H 08/27/24 15:45 08/27/24 15:45 08/27/24 15:45 08/27/24 15:45 Weight: 230 lb Body Mass Index (BMI) 34.9 Lab / Micro Data Labs: Laboratory Results - last 24 hr 08/27/24 13:11: POC Glucose 170 H 08/27/24 15:23: POC Glucose 121 H 08/28/24 13:01: POC Glucose 133 H Exam Physical Exam Narrative Left posterior ankle skin graft with adherence but has some compromise. Const alert, oriented x3 and no apparent distress General Appearance: cooperative HEENT normocephalic and TM's normal bilaterally Head and Scalp: atraumatic Eyes General Eye: normal appearance of both eyes Resp normal respiratory effort, no use of accessory muscles and clear to auscultation bilaterally Effort and Inspection: able to speak in complete sentences Cardio regular rate and regular rhythm Psych affect normal Nursing Assessment and Debridement Post-Debridement Measurements and Additional Note: Post-Debridement Measurements/Treatment - Nurse 1 - General Ulcer Assessment Start: 08/13/24 12:23 Freq: Status: Active Protocol: WC.LOWSERAT Activity Type Activity Date Activity User E-sign Co-sign Detail Recorded Client Recorded Date Recorded By Document 08/26/24 14:36 GONZALO [id number] 08/26/24 14:48 GONZALO 08/26/24 14:36 - Today's Visit Information Type of service Follow-up Visit (Physician/PATIENT SERVICES TECHNICIAN ) Arrival Mode Ambulatory Patient Identification Verified (Name & Yes ) Patient Requires Transmission-Based No Precautions Finger Stick Blood Sugar(mg/dl) (if 112 indicated): Blood Sugar Stated by Patient Height and Weight Body Mass Index (BMI) 34.9 BMI Classification Obese Vital Signs Temperature (97.8 F-99.1 F) 96.9 F L Temperature Source Temporal Pulse Rate (60-100) 74 Pulse Location Monitor Respiratory Rate (12-18) 16 Respiratory rate source Observation Blood Pressure (90/60-120/80) 111/56 L Blood Pressure Mean (mm Hg) 74 Source Monitor Position Sitting Blood Pressure Location Left Arm History Since Last Visit- (Skip if this is Patient's initial visit) Have you changed medications since your No last visit? Any new allergies or adverse reactions No Had a fall/change in ADL's that may No increase risk of falls Signs or symptoms of abuse and/or No neglect since last visit Have you been in the hospital since your No last visit? Has dressing in place as prescribed Yes Has compression in place as prescribed Yes Has offloadiing in place as prescribed Yes Experienced any changes in pain level or No management Left Footwear Regular Shoe Right Footwear Regular Shoe Pain Scale: 0-10 Numeric Is Patient Pain Free? Yes WC - Nurse 1 - General Ulcer Measurement Start: 08/13/24 12:23 Freq: Status: Active Protocol: Activity Type Activity Date Activity User E-sign Co-sign Detail Recorded Client Recorded Date Recorded By Document 08/26/24 14:36 JF [id number] 08/26/24 14:48 GONZALO 08/26/24 14:36 Wound Center Nurse 1 5. L post ankle/ Achilles repair post-op -Combined with other wound No -Current Size (cm) - Length 0.1 -Current Size (cm) - Width 0.1 -Current Size (cm) - Depth 0.1 -Total Square Cm 0.01 -Photo Taken Yes -Epithelialization Large 67-100% Lower Limb Edema Present NA WC - Nurse 2 - General Ulcer CM Notes Start: 08/13/24 12:23 Freq: Status: Active Protocol: Activity Type Activity Date Activity User E-sign Co-sign Detail Recorded Client Recorded Date Recorded By Document 08/26/24 14:48 GONZALO [id number] 08/26/24 14:49 GONZALO 08/26/24 14:48 Wound Center Nurse 2 5. L post ankle/ Achilles repair post-op -Correct Patient No -Correct Side, Site, Position No -Correct Procedure No -Procedure Performed No -Wound/Ulcer Outcome Not Healed Pain Scale: 0-10 Numeric Is Patient Pain Free? Yes - Nurse 3 - General Ulcer D/C NN Start: 08/13/24 12:23 Freq: Status: Active Protocol: Activity Type Activity Date Activity User E-sign Co-sign Detail Recorded Client Recorded Date Recorded By Document 08/26/24 15:06 ODMO [id number] 08/26/24 15:06 DOMO 08/26/24 15:06 Wound Care Center Nurse 3 5. L post ankle/ Achilles repair post-op -Ulcer Cleansing Rinsed/ Irrigated with Saline -Primary Dressing Applied NonAdherent Contact Layer -Primary Dressing Covered/Secured with Dry Gauze & Roll Gauze, Secured with Tape left leg -Compression Wrap Mustapha Wrap -Other x2 Pain Scale: 0-10 Numeric Is Patient Pain Free? Yes WC - Visit Discharge Discharge Condition Stable Ambulatory Status Ambulatory,Cane Transportation Private Auto Medication Reconcilliation completed & No provided to patient/care provider Clinical Summary of Care Provided Yes Charges/Coding Wound Center CF Procedures HBO Supervision: [id number] Hyperbaric Oxygen; supervision Assessment/Plan Assessment/Plan (1) Skin graft (allograft) (autograft) failure: CODE(S): T86.821 - Skin graft (allograft) (autograft) failure (2) Wound of left ankle: CODE(S): S91.002A - Unspecified open wound, left ankle, initial encounter QUALIFIERS: Encounter type: subsequent encounter Qualified Code(s): S91.002D - Unspecified open wound, left ankle, subsequent encounter (3) Type 2 diabetes mellitus with hyperglycemia: CODE(S): E11.65 - Type 2 diabetes mellitus with hyperglycemia QUALIFIERS: Diabetes mellitus residential insulin use: without residential use Qualified Code(s): E11.65 - Type 2 diabetes mellitus with hyperglycemia PLAN: Plan The patient tolerated hyperbaric oxygen therapy well, which will be continued as per her medical plan. Patient would benefit from additional HBO treatments. She currently has 4 more treatments from her original 30. She would benefit from an additional 30 treatments for a compromised skin graft (after her most recent surgery on 08/21/24), the HBO treatments have immensely improved her overall ulcer.
[2024-08-28 14:51] VITALS: BP 120/76; BP 129/84; PULSE 84; RESP 15; RESP 16; TEMP 35.6; TEMP 35.7
[2024-08-28 15:38] LABS: Bedside Glucose 188 mg/dL (74-106)
[2024-09-02 12:33] LABS: Bedside Glucose 128 mg/dL (74-106)
[2024-09-02 13:51] VITALS: BP 117/67; BP 141/72; PULSE 70; PULSE 83; RESP 16; RESP 17; TEMP 35.6; TEMP 36.1
--- NOTE | 2024-09-02 14:05 | PCM.HBO.PN ---
History of Present Illness Date of Service: 09/02/24 Chief Complaint: Surgical dehiscence with exposure of the Achilles tendon left lower extremity; Allograft failure History of Wound: 59 y/o female with DM type II with peripheral polyneuropathy, peripheral vascular disease, asthma, morbid obesity, HTN, and hyperlipidemia presented to the [facility] Center for continued care of surgical dehiscence of her posterior left lower extremity with exposure of the Achilles tendon. The patient underwent surgical intervention to correct calcaneal gait with plantar ulceration of the left heel on 01/26/2024. At that time of surgery she was found to have tendo Achilles tear to the left lower extremity resulting in a calcaneal gait. Tendon was debrided and a shortening of the tendo Achilles was performed in addition to FHL tendon transfer. 3 weeks later patient had fallen placing weight to the foot resulting in a tear and dehiscence of the surgical site with exposure of the Achilles tendon. She was returned to the OR for debridement on 02/22/2024 and wound VAC was applied over ulcerative area. She did have PICC line and completed 6 weeks of IV antibiotics during stay in the transitional care unit. She completed IV antibiotic 04/04/2024 PICC line was pulled and she was discharged from the transitional care unit to home. Surgery by Dr. Solano on 06/10/24 for Split-thickness skin grafting from the left lateral thigh to the left Achilles tendon ankle wound 7 x [address] Solano on 05/20/23 for Excision of left posterior ankle wound, including biofilm, subcutaneous tissue, fascia, and tendon, 7 x 3 cm and Irrigating wound VAC, vera flow, not disposable AND 05/22/24 - Excision of left posterior ankle wound, including biofilm, subcutaneous tissue, fascia, and tendon and Placement of dermal substitute (Integra) and wound VAC placed. Operative culture 05/15/24 positive for MSSA and Anaerobic cocci. Treated with Doxy, cefdinir, and Flagyl. Patient underwent multiple debridements and eventual skin grafting on 11 June 2024. She has developed compromise of her skin graft. The patient has been undergoing hyperbaric oxygen therapy as per serial documentation, and is scheduled to undergo repeat surgical skin grafting of her wound on Monday, August 21, 2024. Hyperbaric oxygen therapy has been performed due to a compromise of her prior skin graft, and as preparation for a repeat skin grafting procedure. Progress of Wound: Today represents the patient's 27th session of hyperbaric oxygen therapy. Tolerance of hyperbaric oxygen therapy: Hyperbaric oxygen therapy was administered as per the facility's protocol, at 100% oxygen at 2 richar for 90 minutes without air breaks. The patient tolerated hyperbaric oxygen therapy well, without complaints or complications. Upon emergence from the hyperbaric chamber, the patient's vital signs remained stable. The patient was discharged in good condition. Blood sugars as documented. Objective Data Objective Data Vital Signs: Vital Signs Temp Pulse Resp BP 96.9 F L 83 16 141/72 H 09/02/24 13:51 09/02/24 13:51 09/02/24 13:51 09/02/24 13:51 Weight: 230 lb Body Mass Index (BMI) 34.9 Lab / Micro Data Labs: Laboratory Results - last 24 hr 09/02/24 12:15: POC Glucose 128 H Exam Physical Exam Const alert, oriented x3 and no apparent distress General Appearance: cooperative HEENT normocephalic and TM's normal bilaterally Head and Scalp: atraumatic Eyes General Eye: normal appearance of both eyes Resp normal respiratory effort, no use of accessory muscles and clear to auscultation bilaterally Effort and Inspection: able to speak in complete sentences Cardio regular rate and regular rhythm Psych affect normal Charges/Coding Wound Center CF Procedures HBO Supervision: [id number] Hyperbaric Oxygen; supervision Assessment/Plan Assessment/Plan (1) Skin graft (allograft) (autograft) failure: CODE(S): T86.821 - Skin graft (allograft) (autograft) failure (2) Wound of left ankle: CODE(S): S91.002A - Unspecified open wound, left ankle, initial encounter QUALIFIERS: Encounter type: subsequent encounter Qualified Code(s): S91.002D - Unspecified open wound, left ankle, subsequent encounter (3) Type 2 diabetes mellitus with hyperglycemia: CODE(S): E11.65 - Type 2 diabetes mellitus with hyperglycemia QUALIFIERS: Diabetes mellitus mcc insulin use: without terminal block assembler use Qualified Code(s): E11.65 - Type 2 diabetes mellitus with hyperglycemia PLAN: Plan The patient tolerated hyperbaric oxygen therapy well, which will be continued as per her medical plan.
[2024-09-02 15:01] LABS: Bedside Glucose 135 mg/dL (74-106)
[2024-09-02 15:54] VITALS: BP 124/72; PULSE 77; RESP 16; TEMP 36.4; BMI 34.9
--- NOTE | 2024-09-02 18:45 | PN.PCM_ITS ---
History of Present Illness Date of Service: 09/02/24 Chief Complaint: Surgical dehiscence with exposure of the Achilles tendon left lower extremity; Allograft failure History of Wound: 59 y/o female with DM type II with peripheral polyneuropathy, peripheral vascular disease, asthma, morbid obesity, HTN, and hyperlipidemia presented [facility] for continued care of surgical dehiscence of her posterior left lower extremity with exposure of the Achilles tendon. The patient underwent surgical intervention to correct calcaneal gait with plantar ulceration of the left heel on 01/26/2024. At that time of surgery she was found to have tendo Achilles tear to the left lower extremity resulting in a calcaneal gait. Tendon was debrided and a shortening of the tendo Achilles was performed in addition to FHL tendon transfer. 3 weeks later patient had fallen placing weight to the foot resulting in a tear and dehiscence of the surgical site with exposure of the Achilles tendon. She was returned to the OR for debridement on 02/22/2024 and wound VAC was applied over ulcerative area. She did have PICC line and completed 6 weeks of IV antibiotics during stay in the transitional care unit. She completed IV antibiotic 04/04/2024 PICC line was pulled and she was discharged from the transitional care unit to home. Surgery by Dr. Solano on 06/10/24 for Split-thickness skin grafting from the left lateral thigh to the left Achilles tendon ankle wound 7 x [address] Solano on 05/20/23 for Excision of left posterior ankle wound, including biofilm, subcutaneous tissue, fascia, and tendon, 7 x 3 cm and Irrigating wound VAC, vera flow, not disposable AND 05/22/24 - Excision of left posterior ankle wound, including biofilm, subcutaneous tissue, fascia, and tendon and Placement of dermal substitute (Integra) and wound VAC placed. Operative culture 05/15/24 positive for MSSA and Anaerobic cocci. Treated with Doxy, cefdinir, and Flagyl. Patient underwent multiple debridements and eventual skin grafting on 11 June 2024. She has developed compromise of her skin graft. The patient has been undergoing hyperbaric oxygen therapy as per serial documentation, and is scheduled to undergo repeat surgical skin grafting of her wound on Monday, August 21, 2024. Hyperbaric oxygen therapy has been performed due to a compromise of her prior skin graft, and as preparation for a repeat skin grafting procedure. Progress of Wound: Doing well. Tolerating HBO. No signs of infection/drainage. Objective Data Objective Data Vital Signs: Vital Signs Temp Pulse Resp BP O2 Del Method 97.5 F L 77 16 124/72 H Room Air 09/02/24 15:54 09/02/24 15:54 09/02/24 15:54 09/02/24 15:54 09/02/24 15:54 Oxygen Delivery Method Room Air Weight: 230 lb Body Mass Index (BMI) 34.9 Lab / Micro Data Labs: Laboratory Results - last 24 hr 09/02/24 12:15: POC Glucose 128 H 09/02/24 14:40: POC Glucose 135 H Charges/Coding Procedures Integumentary 111xxx-113xx: [id number] Global Visit Physical Exam Narrative LLE: Xeroform removed. Graft with good take. Stuck down to the wound bed and re- epithelialized. Const alert and oriented x3 HEENT external ears normal, EAC's normal and TM's normal bilaterally Resp normal respiratory effort and clear to auscultation bilaterally Cardio regular rate Rhythm: regular rhythm Heart Sounds: S1 normal and S2 normal Debridement Note Debridement Note Post-Debridement Measurements and Additional Note: Post-Debridement Measurements/Treatment - Nurse 1 - General Ulcer Assessment Start: 08/13/24 12:23 Freq: Status: Active Protocol: BUSTER Activity Type Activity Date Activity User E-sign Co-sign Detail Recorded Client Recorded Date Recorded By Document 08/26/24 14:36 [id number] 08/26/24 14:48 Document 09/02/24 15:54 [id number] 09/02/24 15:56 08/26/24 09/02/24 14:36 15:54 - Today's Visit Information Type of service Follow-up Visit Follow-up Visit (Physician/ENHANCED ENVIRONMENTAL OPERATOR (Physician/ENHANCED ENVIRONMENTAL OPERATOR ) ) Arrival Mode Ambulatory Ambulatory Transfer Assistance None Patient Identification Verified (Name & Yes Yes ) Patient Requires Transmission-Based No Precautions Finger Stick Blood Sugar(mg/dl) (if 112 indicated): Blood Sugar Stated by Patient Height and Weight Body Mass Index (BMI) 34.9 34.9 BMI Classification Obese Obese Vital Signs Temperature (97.8 F-99.1 F) 96.9 F L 97.5 F L Temperature Source Temporal Temporal Pulse Rate (60-100) 74 77 Pulse Location Monitor Monitor Respiratory Rate (12-18) 16 16 Respiratory rate source Observation Observation Oxygen Delivery Method Room Air Blood Pressure (90/60-120/80) 111/56 L 124/72 H Blood Pressure Mean (mm Hg) 74 89 Source Monitor Monitor Position Sitting Sitting Blood Pressure Location Left Arm Left Arm History Since Last Visit- (Skip if this is Patient's initial visit) Have you changed medications since your No No last visit? Any new allergies or adverse reactions No No Had a fall/change in ADL's that may No No increase risk of falls Signs or symptoms of abuse and/or No No neglect since last visit Have you been in the hospital since your No No last visit? Has dressing in place as prescribed Yes Yes Has compression in place as prescribed Yes Yes Has offloadiing in place as prescribed Yes Yes Experienced any changes in pain level or No No management Left Footwear Regular Shoe Right Footwear Regular Shoe Pain Scale: 0-10 Numeric Is Patient Pain Free? Yes Yes WC - Nurse 1 - General Ulcer Measurement Start: 08/13/24 12:23 Freq: Status: Active Protocol: Activity Type Activity Date Activity User E-sign Co-sign Detail Recorded Client Recorded Date Recorded By Document 08/26/24 14:36 [id number] 08/26/24 14:48 Document 09/02/24 15:54 [id number] 09/02/24 15:56 08/26/24 09/02/24 14:36 15:54 Wound Center Nurse 1 5. L post ankle/ Achilles repair post-op -Combined with other wound No -Current Size (cm) - Length 0.1 6.0 -Current Size (cm) - Width 0.1 0.8 -Current Size (cm) - Depth 0.1 0.1 -Total Square Cm 0.01 4.80 -Photo Taken Yes No -Epithelialization Large 67-100% Large 67-100% -Tunneling No -Undermining/Tunneling No -Circular Undermining No -Exudate Amt Medium -Exudate Type Yellow/Green -Wound Margin Distinct, Outline Attached -Texture (Yanely-wound Skin Appearance) Assessed -Moisture (Yanely-wound Skin Appearance) Assessed -Color (Yanely-wound Skin Appearance) Assessed -Temperature (Yanely-wound Skin No Abnormality Appearance) (Pt Warm) -Ulcer Cleansing Soap and Water -Foul Odor after Cleansing No Lower Limb Edema Present NA - Nurse 2 - General Ulcer CM Notes Start: 08/13/24 12:23 Freq: Status: Active Protocol: Activity Type Activity Date Activity User E-sign Co-sign Detail Recorded Client Recorded Date Recorded By Document 08/26/24 14:48 JF [id number] 08/26/24 14:49 JF Document 09/02/24 16:34 JF [id number] 09/02/24 16:36 JF 08/26/24 09/02/24 14:48 16:34 Wound Center Nurse 2 5. L post ankle/ Achilles repair post-op -Correct Patient No Yes -Correct Side, Site, Position No No -Correct Procedure No No -Procedure Performed No No -Post Debridement (cm) - Length 0.1 -Post Debridement (cm) - Width 0.1 -Post Debridement (cm) - Depth 0.1 -Total Square (Post) (cm) 0.01 -Area of Debridement (cm) - Length 0.1 -Area of Debridement (cm) - Width 0.1 -Total Square (Area) (cm) 0.01 -Wound/Ulcer Outcome Not Healed Not Healed -Ulcer Cleansing Rinsed/ Irrigated with Saline -Foul Odor after Cleansing No -Bioengineered Tissue No -Bleeding Controlled with Pressure -Offloading No -Debridement - Subq, 1st 20sq cm No Pain Scale: 0-10 Numeric Is Patient Pain Free? Yes Yes - Nurse 3 - General Ulcer D/C NN Start: 08/13/24 12:23 Freq: Status: Active Protocol: Activity Type Activity Date Activity User E-sign Co-sign Detail Recorded Client Recorded Date Recorded By Document 08/20/24 13:43 JF 0000 08/20/24 13:47 JF Document 08/26/24 15:06 KW [id number] 08/26/24 15:06 KW Document 09/02/24 16:43 DL [id number] 09/02/24 16:44 DL 08/20/24 08/26/24 09/02/24 13:43 15:06 16:43 Wound Care Center Nurse 3 5. L post ankle/ Achilles repair post-op -Ulcer Cleansing Rinsed/ Rinsed/ Irrigated with Irrigated with Saline Saline -Foul Odor after Cleansing No -Primary Dressing Applied NonAdherent Contact Layer -Other Dressing hydrogel -Primary Dressing Covered/Secured with Dry Gauze & Dry Gauze & Roll Gauze, Roll Gauze, Secured with Secured with Tape Tape -Other Covering mustapha left leg -Compression Wrap Mustapha Wrap -Other x2 Treatment Response Procedure Tolerated Well Pain Scale: 0-10 Numeric Is Patient Pain Free? Yes Yes Yes WC - Visit Discharge Discharge Condition Stable Stable Stable Ambulatory Status Ambulatory,Cane Ambulatory,Cane Ambulatory,Cane Transportation Private Auto Private Auto Private Auto Medication Reconcilliation completed & No No provided to patient/care provider Clinical Summary of Care Provided No Yes Assessment/Plan Assessment/Plan (1) Wound of left ankle: CODE(S): S91.002A - Unspecified open wound, left ankle, initial encounter QUALIFIERS: Encounter type: subsequent encounter Qualified Code(s): S91.002D - Unspecified open wound, left ankle, subsequent encounter PLAN: Finish last 2 HBOT treatments. F/u in 1 week Continue fracture boot and Xeroform twice daily. Should heal at this point (looking good).
[2024-09-05 09:57] LABS: Bedside Glucose 164 mg/dL (74-106)
[2024-09-05 09:57] LABS: Bedside Glucose 130 mg/dL (74-106)
[2024-09-06 10:51] LABS: Bedside Glucose 160 mg/dL (74-106)
[2024-09-06 13:21] VITALS: BP 139/73; BP 150/80; PULSE 62; PULSE 71; RESP 16; RESP 17; TEMP 35.8; TEMP 35.9
[2024-09-06 13:22] LABS: Bedside Glucose 121 mg/dL (74-106)
--- NOTE | 2024-09-06 14:05 | PCM.HBO.PN ---
History of Present Illness Date of Service: 09/06/24 Chief Complaint: Surgical dehiscence with exposure of the Achilles tendon left lower extremity; Allograft failure History of Wound: 59 y/o female with DM type II with peripheral polyneuropathy, peripheral vascular disease, asthma, morbid obesity, HTN, and hyperlipidemia presented to the [facility] for continued care of surgical dehiscence of her posterior left lower extremity with exposure of the Achilles tendon. The patient underwent surgical intervention to correct calcaneal gait with plantar ulceration of the left heel on 01/26/2024. At that time of surgery she was found to have tendo Achilles tear to the left lower extremity resulting in a calcaneal gait. Tendon was debrided and a shortening of the tendo Achilles was performed in addition to FHL tendon transfer. 3 weeks later patient had fallen placing weight to the foot resulting in a tear and dehiscence of the surgical site with exposure of the Achilles tendon. She was returned to the OR for debridement on 02/22/2024 and wound VAC was applied over ulcerative area. She did have PICC line and completed 6 weeks of IV antibiotics during stay in the transitional care unit. She completed IV antibiotic 04/04/2024 PICC line was pulled and she was discharged from the transitional care unit to home. Surgery by Dr. Solano on 06/10/24 for Split-thickness skin grafting from the left lateral thigh to the left Achilles tendon ankle wound 7 x [address] Solano on 05/20/23 for Excision of left posterior ankle wound, including biofilm, subcutaneous tissue, fascia, and tendon, 7 x 3 cm and Irrigating wound VAC, vera flow, not disposable AND 05/22/24 - Excision of left posterior ankle wound, including biofilm, subcutaneous tissue, fascia, and tendon and Placement of dermal substitute (Integra) and wound VAC placed. Operative culture 05/15/24 positive for MSSA and Anaerobic cocci. Treated with Doxy, cefdinir, and Flagyl. Patient underwent multiple debridements and eventual skin grafting on 11 June 2024. She has developed compromise of her skin graft. The patient has been undergoing hyperbaric oxygen therapy as per serial documentation, and is scheduled to undergo repeat surgical skin grafting of her wound on Monday, August 21, 2024. Hyperbaric oxygen therapy has been performed due to a compromise of her prior skin graft, and as preparation for a repeat skin grafting procedure. Progress of Wound: Doing well. Tolerating HBO. No signs of infection/drainage. Subjective Subjective The patient appears to be tolerating hyperbaric oxygen therapy well. Today represents the 28th such hyperbaric oxygen treatment of 30 scheduled treatments. The patient appears to be doing well. Objective Data Objective Data Vital Signs: Vital Signs Temp Pulse Resp BP O2 Del Method 96.6 F L 62 17 150/80 H Room Air 09/06/24 13:21 09/06/24 13:21 09/06/24 13:21 09/06/24 13:21 09/02/24 15:54 Oxygen Delivery Method Room Air Weight: 104.326 kg Body Mass Index (BMI) 34.9 Lab / Micro Data Labs: Laboratory Results - last 24 hr 09/06/24 10:33: POC Glucose 160 H 09/06/24 13:05: POC Glucose 121 H Exam Physical Exam Const alert, oriented x3 and no apparent distress HEENT Tympanic Membrane: TM's normal bilaterally Psych mental status grossly normal, thought process normal, cooperative, affect normal and speech normal Assessment/Plan Assessment/Plan (1) Skin graft (allograft) (autograft) failure: CODE(S): T86.821 - Skin graft (allograft) (autograft) failure (2) Wound of left ankle: CODE(S): S91.002A - Unspecified open wound, left ankle, initial encounter QUALIFIERS: Encounter type: subsequent encounter Qualified Code(s): S91.002D - Unspecified open wound, left ankle, subsequent encounter (3) Type 2 diabetes mellitus with hyperglycemia: CODE(S): E11.65 - Type 2 diabetes mellitus with hyperglycemia QUALIFIERS: Diabetes mellitus retirement insulin use: without retirement use Qualified Code(s): E11.65 - Type 2 diabetes mellitus with hyperglycemia PLAN: Plan The patient tolerated hyperbaric oxygen therapy well, which will be continued as per her medical plan. This note was generated with [employer] software. It may contain incorrect words, spelling, and punctuation that were not noted in checking the note before signing.
[2024-09-09 13:44] LABS: Bedside Glucose 128 mg/dL (74-106)
[2024-09-09 14:05] LABS: Bedside Glucose 137 mg/dL (74-106)
[2024-09-09 15:27] VITALS: BP 136/80; BP 137/88; PULSE 72; PULSE 86; RESP 14; RESP 16; TEMP 35.8; TEMP 36.2
--- NOTE | 2024-09-09 15:41 | PCM.WC.PN ---
History of Present Illness Date of Service: 09/09/24 Chief Complaint: Surgical dehiscence with exposure of the Achilles tendon left lower extremity; Allograft failure History of Wound: 59 y/o female with DM type II with peripheral polyneuropathy, peripheral vascular disease, asthma, morbid obesity, HTN, and hyperlipidemia presented to the [facility] for continued care of surgical dehiscence of her posterior left lower extremity with exposure of the Achilles tendon. The patient underwent surgical intervention to correct calcaneal gait with plantar ulceration of the left heel on 01/26/2024. At that time of surgery she was found to have tendo Achilles tear to the left lower extremity resulting in a calcaneal gait. Tendon was debrided and a shortening of the tendo Achilles was performed in addition to FHL tendon transfer. 3 weeks later patient had fallen placing weight to the foot resulting in a tear and dehiscence of the surgical site with exposure of the Achilles tendon. She was returned to the OR for debridement on 02/22/2024 and wound VAC was applied over ulcerative area. She did have PICC line and completed 6 weeks of IV antibiotics during stay in the transitional care unit. She completed IV antibiotic 04/04/2024 PICC line was pulled and she was discharged from the transitional care unit to home. Surgery by Dr. Solano on 06/10/24 for Split-thickness skin grafting from the left lateral thigh to the left Achilles tendon ankle wound 7 x [address] Solano on 05/20/23 for Excision of left posterior ankle wound, including biofilm, subcutaneous tissue, fascia, and tendon, 7 x 3 cm and Irrigating wound VAC, vera flow, not disposable AND 05/22/24 - Excision of left posterior ankle wound, including biofilm, subcutaneous tissue, fascia, and tendon and Placement of dermal substitute (Integra) and wound VAC placed. Operative culture 05/15/24 positive for MSSA and Anaerobic cocci. Treated with Doxy, cefdinir, and Flagyl. Patient underwent multiple debridements and eventual skin grafting on 11 June 2024. She has developed compromise of her skin graft. The patient has been undergoing hyperbaric oxygen therapy as per serial documentation, and is scheduled to undergo repeat surgical skin grafting of her wound on Monday, August 21, 2024. Hyperbaric oxygen therapy has been performed due to a compromise of her prior skin graft, and as preparation for a repeat skin grafting procedure. Progress of Wound: Doing well. Tolerating HBO. No signs of infection/drainage. Subjective Subjective Doing well. Finished HBO today. Compliant with splinting and daily Hydrogel dressings. Objective Data Objective Data Vital Signs: Vital Signs Temp Pulse Resp BP O2 Del Method 96.6 F L 62 17 150/80 H Room Air 09/06/24 13:21 09/06/24 13:21 09/06/24 13:21 09/06/24 13:21 09/02/24 15:54 Oxygen Delivery Method Room Air Weight: 230 lb Body Mass Index (BMI) 34.9 Lab / Micro Data Labs: Laboratory Results - last 24 hr 09/09/24 13:26: POC Glucose 128 H 09/09/24 13:42: POC Glucose 137 H Charges/Coding Procedures Integumentary 111xxx-113xx: [id number] Global Visit Physical Exam Narrative LLE: Xeroform removed. 50% graft melt. Some open areas now. No signs of infection. No signs of exposed tendon. Const alert and oriented x3 HEENT external ears normal, EAC's normal and TM's normal bilaterally Resp normal respiratory effort and clear to auscultation bilaterally Cardio regular rate Rhythm: regular rhythm Heart Sounds: S1 normal and S2 normal Debridement Note Debridement Note Post-Debridement Measurements and Additional Note: Post-Debridement Measurements/Treatment - Nurse 1 - General Ulcer Assessment Start: 08/13/24 12:23 Freq: Status: Active Protocol: WC.LOWEXT Activity Type Activity Date Activity User E-sign Co-sign Detail Recorded Client Recorded Date Recorded By Document 08/26/24 14:36 [id number] 08/26/24 14:48 Document 09/02/24 15:54 [id number] 09/02/24 15:56 08/26/24 09/02/24 14:36 15:54 - Today's Visit Information Type of service Follow-up Visit Follow-up Visit (Physician/MARKETING REGIONAL CONSULTANT (Physician/MARKETING REGIONAL CONSULTANT ) ) Arrival Mode Ambulatory Ambulatory Transfer Assistance None Patient Identification Verified (Name & Yes Yes ) Patient Requires Transmission-Based No Precautions Finger Stick Blood Sugar(mg/dl) (if 112 indicated): Blood Sugar Stated by Patient Height and Weight Body Mass Index (BMI) 34.9 34.9 BMI Classification Obese Obese Vital Signs Temperature (97.8 F-99.1 F) 96.9 F L 97.5 F L Temperature Source Temporal Temporal Pulse Rate (60-100) 74 77 Pulse Location Monitor Monitor Respiratory Rate (12-18) 16 16 Respiratory rate source Observation Observation Oxygen Delivery Method Room Air Blood Pressure (90/60-120/80) 111/56 L 124/72 H Blood Pressure Mean (mm Hg) 74 89 Source Monitor Monitor Position Sitting Sitting Blood Pressure Location Left Arm Left Arm History Since Last Visit- (Skip if this is Patient's initial visit) Have you changed medications since your No No last visit? Any new allergies or adverse reactions No No Had a fall/change in ADL's that may No No increase risk of falls Signs or symptoms of abuse and/or No No neglect since last visit Have you been in the hospital since your No No last visit? Has dressing in place as prescribed Yes Yes Has compression in place as prescribed Yes Yes Has offloadiing in place as prescribed Yes Yes Experienced any changes in pain level or No No management Left Footwear Regular Shoe Right Footwear Regular Shoe Pain Scale: 0-10 Numeric Is Patient Pain Free? Yes Yes - Nurse 1 - General Ulcer Measurement Start: 08/13/24 12:23 Freq: Status: Active Protocol: Activity Type Activity Date Activity User E-sign Co-sign Detail Recorded Client Recorded Date Recorded By Document 08/26/24 14:36 [id number] 08/26/24 14:48 Document 09/02/24 15:54 [id number] 09/02/24 15:56 08/26/24 09/02/24 14:36 15:54 Wound Center Nurse 1 5. L post ankle/ Achilles repair post-op -Combined with other wound No -Current Size (cm) - Length 0.1 6.0 -Current Size (cm) - Width 0.1 0.8 -Current Size (cm) - Depth 0.1 0.1 -Total Square Cm 0.01 4.80 -Photo Taken Yes No -Epithelialization Large 67-100% Large 67-100% -Tunneling No -Undermining/Tunneling No -Circular Undermining No -Exudate Amt Medium -Exudate Type Yellow/Green -Wound Margin Distinct, Outline Attached -Texture (Yanely-wound Skin Appearance) Assessed -Moisture (Yanely-wound Skin Appearance) Assessed -Color (Yanely-wound Skin Appearance) Assessed -Temperature (Yanely-wound Skin No Abnormality Appearance) (Pt Warm) -Ulcer Cleansing Soap and Water -Foul Odor after Cleansing No Lower Limb Edema Present NA WC - Nurse 2 - General Ulcer CM Notes Start: 08/13/24 12:23 Freq: Status: Active Protocol: Activity Type Activity Date Activity User E-sign Co-sign Detail Recorded Client Recorded Date Recorded By Document 08/26/24 14:48 [id number] 08/26/24 14:49 JF Document 09/02/24 16:34 JF [id number] 09/02/24 16:36 JF 08/26/24 09/02/24 14:48 16:34 Wound Center Nurse 2 5. L post ankle/ Achilles repair post-op -Correct Patient No Yes -Correct Side, Site, Position No No -Correct Procedure No No -Procedure Performed No No -Post Debridement (cm) - Length 0.1 -Post Debridement (cm) - Width 0.1 -Post Debridement (cm) - Depth 0.1 -Total Square (Post) (cm) 0.01 -Area of Debridement (cm) - Length 0.1 -Area of Debridement (cm) - Width 0.1 -Total Square (Area) (cm) 0.01 -Wound/Ulcer Outcome Not Healed Not Healed -Ulcer Cleansing Rinsed/ Irrigated with Saline -Foul Odor after Cleansing No -Bioengineered Tissue No -Bleeding Controlled with Pressure -Offloading No -Debridement - Subq, 1st 20sq cm No Pain Scale: 0-10 Numeric Is Patient Pain Free? Yes Yes - Nurse 3 - General Ulcer D/C NN Start: 08/13/24 12:23 Freq: Status: Active Protocol: Activity Type Activity Date Activity User E-sign Co-sign Detail Recorded Client Recorded Date Recorded By Document 08/20/24 13:43 JF 0000 08/20/24 13:47 JF Document 08/26/24 15:06 KW [id number] 08/26/24 15:06 KW Document 09/02/24 16:43 DL [id number] 09/02/24 16:44 DL 08/20/24 08/26/24 09/02/24 13:43 15:06 16:43 Wound Care Center Nurse 3 5. L post ankle/ Achilles repair post-op -Ulcer Cleansing Rinsed/ Rinsed/ Irrigated with Irrigated with Saline Saline -Foul Odor after Cleansing No -Primary Dressing Applied NonAdherent Contact Layer -Other Dressing hydrogel -Primary Dressing Covered/Secured with Dry Gauze & Dry Gauze & Roll Gauze, Roll Gauze, Secured with Secured with Tape Tape -Other Covering mustapha left leg -Compression Wrap Mustapha Wrap -Other x2 Treatment Response Procedure Tolerated Well Pain Scale: 0-10 Numeric Is Patient Pain Free? Yes Yes Yes WC - Visit Discharge Discharge Condition Stable Stable Stable Ambulatory Status Ambulatory,Cane Ambulatory,Cane Ambulatory,Cane Transportation Private Auto Private Auto Private Auto Medication Reconcilliation completed & No No provided to patient/care provider Clinical Summary of Care Provided No Yes Assessment/Plan Assessment/Plan (1) Wound of left ankle: CODE(S): S91.002A - Unspecified open wound, left ankle, initial encounter QUALIFIERS: Encounter type: subsequent encounter Qualified Code(s): S91.002D - Unspecified open wound, left ankle, subsequent encounter PLAN: Plan OK to DC fracture boot as able. Continue hyperbaric oxygen and daily hydrogel dressings. I will consider repeating ABIs if trouble over the next month with healing (will re-evuate with vascular surgery) Continue to follow with Dr. Godinez from podiatry s/p Achilles repair. F/u with me for check up in 2 weeks.
--- NOTE | 2024-09-09 15:45 | HBO.PN.PCM_ITS ---
History of Present Illness Date of Service: 09/09/24 Chief Complaint: Surgical dehiscence with exposure of the Achilles tendon left lower extremity; Allograft failure History of Wound: 59 y/o female with DM type II with peripheral polyneuropathy, peripheral vascular disease, asthma, morbid obesity, HTN, and hyperlipidemia presented to [facility] for continued care of surgical dehiscence of her posterior left lower extremity with exposure of the Achilles tendon. The patient underwent surgical intervention to correct calcaneal gait with plantar ulceration of the left heel on 01/26/2024. At that time of surgery she was found to have tendo Achilles tear to the left lower extremity resulting in a calcaneal gait. Tendon was debrided and a shortening of the tendo Achilles was performed in addition to FHL tendon transfer. 3 weeks later patient had fallen placing weight to the foot resulting in a tear and dehiscence of the surgical site with exposure of the Achilles tendon. She was returned to the OR for debridement on 02/22/2024 and wound VAC was applied over ulcerative area. She did have PICC line and completed 6 weeks of IV antibiotics during stay in the transitional care unit. She completed IV antibiotic 04/04/2024 PICC line was pulled and she was discharged from the transitional care unit to home. Surgery by Dr. Solano on 06/10/24 for Split-thickness skin grafting from the left lateral thigh to the left Achilles tendon ankle wound 7 x [address] Solano on 05/20/23 for Excision of left posterior ankle wound, including biofilm, subcutaneous tissue, fascia, and tendon, 7 x 3 cm and Irrigating wound VAC, vera flow, not disposable AND 05/22/24 - Excision of left posterior ankle wound, including biofilm, subcutaneous tissue, fascia, and tendon and Placement of dermal substitute (Integra) and wound VAC placed. Operative culture 05/15/24 positive for MSSA and Anaerobic cocci. Treated with Doxy, cefdinir, and Flagyl. Patient underwent multiple debridements and eventual skin grafting on 11 June 2024. She has developed compromise of her skin graft. The patient has been undergoing hyperbaric oxygen therapy as per serial documentation, and is scheduled to undergo repeat surgical skin grafting of her wound on Monday, August 21, 2024. Hyperbaric oxygen therapy has been performed due to a compromise of her prior skin graft, and as preparation for a repeat skin grafting procedure. Progress of Wound: Today represents the patient's 29th session of hyperbaric oxygen therapy. Tolerance of hyperbaric oxygen therapy: Hyperbaric oxygen therapy was administered as per the facility's protocol, at 100% oxygen at 2 richar for 90 minutes without air breaks. The patient tolerated hyperbaric oxygen therapy well, without complaints or complications. Upon emergence from the hyperbaric chamber, the patient's vital signs remained stable. The patient was discharged in good condition. Blood sugars as documented. Objective Data Objective Data Vital Signs: Vital Signs Temp Pulse Resp BP O2 Del Method 96.6 F L 62 17 150/80 H Room Air 09/06/24 13:21 09/06/24 13:21 09/06/24 13:21 09/06/24 13:21 09/02/24 15:54 Oxygen Delivery Method Room Air Weight: 230 lb Body Mass Index (BMI) 34.9 Lab / Micro Data Labs: Laboratory Results - last 24 hr 09/09/24 13:26: POC Glucose 128 H 09/09/24 13:42: POC Glucose 137 H Exam Physical Exam Const alert, oriented x3 and no apparent distress General Appearance: cooperative HEENT normocephalic and TM's normal bilaterally Head and Scalp: atraumatic Eyes General Eye: normal appearance of both eyes Resp normal respiratory effort, no use of accessory muscles and clear to auscultation bilaterally Effort and Inspection: able to speak in complete sentences Cardio regular rate and regular rhythm Psych affect normal Charges/Coding [facility] CF Procedures HBO Supervision: [id number] Hyperbaric Oxygen; supervision Assessment/Plan Assessment/Plan (1) Skin graft (allograft) (autograft) failure: CODE(S): T86.821 - Skin graft (allograft) (autograft) failure (2) Wound of left ankle: CODE(S): S91.002A - Unspecified open wound, left ankle, initial encounter QUALIFIERS: Encounter type: subsequent encounter Qualified Code(s): S91.002D - Unspecified open wound, left ankle, subsequent encounter (3) Type 2 diabetes mellitus with hyperglycemia: CODE(S): E11.65 - Type 2 diabetes mellitus with hyperglycemia QUALIFIERS: 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
[2024-09-09 15:47] VITALS: BP 136/80; PULSE 72; RESP 16; TEMP 35.8; BMI 34.9
[2024-09-09 15:56] LABS: Bedside Glucose 143 mg/dL (74-106)
== END 2024-09-10 23:59 | disposition home or self-care (01) ==
LOC: WC 13:00
PROVIDERS: PCP Family Medicine Geriatric Medicine; Referring Provider Surgery Plastic and Reconstructive Surgery; Visit Provider Surgery Plastic and Reconstructive Surgery
DX: T86.821 Skin graft (allograft) (autograft) failure (principal); E66.01 Morbid (severe) obesity due to excess calories; E11.65 Type 2 diabetes mellitus with hyperglycemia; E11.42 Type 2 diabetes mellitus with diabetic polyneuropathy; E11.51 Type 2 diabetes mellitus with diabetic peripheral angiopathy without gangrene; T81.31XA Disruption of external operation (surgical) wound, not elsewhere classified, initial encounter; Y83.8 Other surgical procedures as the cause of abnormal reaction of the patient, or of later complication, without mention of misadventure at the time of the procedure; I10 Essential (primary) hypertension
CPT/HCPCS: 82962; 99183; 99213; 99214; G0277; G0463

== ENCOUNTER → 2024-10-04 | Outpatient (CLI) | payer MEDICARE, MEDICAID, SELFPAY ==
[2024-10-04 11:31] LABS: Absolute Lymphocyte Count 2.76 X10^3/uL (0.83-4.51); Absolute Neutrophil Count 1.8 X10^3/uL (2.0-7.7); Basophil# 0.07 X10^3/uL; Basophil% 1.3 % (0-1); Eosinophil# 0.43 X10^3/uL; Eosinophils% 7.7 % (0-5); Hematocrit 39.5 % (37-47); Hemoglobin 12.1 g/dL (12.0-15.0); Lymphocyte # 2.76 X10^3/ul (0.83-4.51); Lymphocyte % 49.7 % (19-41); Mean Corp Hgb Conc 30.6 g/dL (32-36); Mean Corpuscular Hgb 26.5 pg (27.0-32.0); Mean Corpuscular Volume 86.4 fL (81-99); Mean Platelet Vol. 9.8 fl (6.2-12.0); NRBC Flagged by Analyzer 0 % (0-5); Neutrophil # 1.78 X10^3/uL (2.7-7.7); Neutrophil % 32.1 % (47-70); Platelet Count 259 K/mm3 (150-450); RBC Distribution Width CV 15.2 % (11.6-14.6); RBC Distribution Width SD 47.9 fl (35.1-43.9); Red Blood Count 4.57 M/mm3 (4.2-5.4); White Blood Count 5.6 K/mm3 (4.4-11.0)
[2024-10-04 12:24] LABS: ALB/GLOB Ratio 0.8 RATIO (0.9-2.4); AST(SGOT) 18 U/L (15-37); Alanine Aminotransfer ALT/SGPT 29 U/L (13-56); Albumin, Serum 3.6 g/dL (3.2-5.0); Alkaline Phosphatase 94 U/L (45-117); Anion Gap 6 (5-15); BUN 15 mg/dL (7-18); BUN/Creat Ratio 18.1 RATIO (10-20); Calcium,Total 8.5 mg/dL (8.5-10.1); Chloride 105 mmol/L (98-107); Cholesterol 129 mg/dL (200); Creatinine, Serum 0.83 mg/dL (0.55-1.02); EST Glomerular Filtration Rate 74 mL/min (>60); Est Glom Filt Rate - Afr Amer 90 mL/min (>60); Globulin 4.4 g/dL (2.2-4.2); Glucose 160 mg/dL (74-106); High Density Lipoprotein 49 mg/dL; Potassium 3.7 mmol/L (3.5-5.1); Sodium Level 139 mmol/L (136-145); Triglycerides 331 mg/dL; Very Low Density Lipoprotein 66 mg/dL (5-40)
[2024-10-04 13:36] LABS: Hemoglobin A1c 6.9 % (3.8-5.6)
== END | disposition home or self-care (01) ==
LOC: POLAB3 11:01
PROVIDERS: PCP Family Medicine Geriatric Medicine; Visit Provider Family Medicine Geriatric Medicine
DX: E78.5 Hyperlipidemia, unspecified (principal); E11.65 Type 2 diabetes mellitus with hyperglycemia; I10 Essential (primary) hypertension
CPT/HCPCS: 36415; 80053; 80061; 83036; 84443; 85025

== ENCOUNTER 2024-10-07 15:30 | Outpatient (RCR) | payer MEDICARE, MEDICAID, SELFPAY ==
[2024-09-11 00:38] VITALS: BP 125/76; BP 128/66; BP 91/52; PULSE 76; PULSE 79; PULSE 83; RESP 18; TEMP 36.2; TEMP 36.3; BMI 34.9
[2024-09-24 13:48] LABS: Bedside Glucose 165 mg/dL (74-106)
[2024-09-24 15:55] LABS: Bedside Glucose 109 mg/dL (74-106)
[2024-09-24 16:00] VITALS: BP 130/86; BP 134/78; PULSE 77; PULSE 84; RESP 14; RESP 16; TEMP 35.5; TEMP 36.1
--- NOTE | 2024-09-25 08:26 | PCM.HBO.PN ---
History of Present Illness Date of Service: 09/24/24 Chief Complaint: Surgical dehiscence with exposure of the Achilles tendon left lower extremity; Allograft failure History of Wound: 59 y/o female with DM type II with peripheral polyneuropathy, peripheral vascular disease, asthma, morbid obesity, HTN, and hyperlipidemia presented to the [facility] for continued care of surgical dehiscence of her posterior left lower extremity with exposure of the Achilles tendon. The patient underwent surgical intervention to correct calcaneal gait with plantar ulceration of the left heel on 01/26/2024. At that time of surgery she was found to have tendo Achilles tear to the left lower extremity resulting in a calcaneal gait. Tendon was debrided and a shortening of the tendo Achilles was performed in addition to FHL tendon transfer. 3 weeks later patient had fallen placing weight to the foot resulting in a tear and dehiscence of the surgical site with exposure of the Achilles tendon. She was returned to the OR for debridement on 02/22/2024 and wound VAC was applied over ulcerative area. She did have PICC line and completed 6 weeks of IV antibiotics during stay in the transitional care unit. She completed IV antibiotic 04/04/2024 PICC line was pulled and she was discharged from the transitional care unit to home. Surgery by Dr. Solano on 06/10/24 for Split-thickness skin grafting from the left lateral thigh to the left Achilles tendon ankle wound 7 x [address] Solano on 05/20/23 for Excision of left posterior ankle wound, including biofilm, subcutaneous tissue, fascia, and tendon, 7 x 3 cm and Irrigating wound VAC, vera flow, not disposable AND 05/22/24 - Excision of left posterior ankle wound, including biofilm, subcutaneous tissue, fascia, and tendon and Placement of dermal substitute (Integra) and wound VAC placed. Operative culture 05/15/24 positive for MSSA and Anaerobic cocci. Treated with Doxy, cefdinir, and Flagyl. Patient underwent multiple debridements and eventual skin grafting on 11 June 2024. She has developed compromise of her skin graft. The patient has been undergoing hyperbaric oxygen therapy as per serial documentation. She underwent repeat surgical skin grafting of her wound on Monday, August 21, 2024. Hyperbaric oxygen therapy continues due to a compromise of her prior skin graft, and to support the healing of her most recent skin grafting procedure. Progress of Wound: Today represents the patient's 30th session of hyperbaric oxygen therapy. Tolerance of hyperbaric oxygen therapy: Hyperbaric oxygen therapy was administered as per the facility's protocol. Hyperbaric oxygen therapy was administered at 100% oxygen at 2 richar for 90 minutes without air breaks. The patient tolerated hyperbaric oxygen therapy well, without complaints or complications. Upon emergence from the hyperbaric chamber, the patient's vital signs remained stable. Preprocedure blood sugar was 165. Postprocedure blood sugar was 109. The patient was discharged in good condition. Objective Data Objective Data Vital Signs: Vital Signs Temp Pulse Resp BP 95.9 F L 84 16 130/86 H 09/24/24 16:00 09/24/24 16:00 09/24/24 16:00 09/24/24 16:00 Weight: 230 lb Body Mass Index (BMI) 34.9 Lab / Micro Data Labs: Laboratory Results - last 24 hr 09/24/24 13:20: POC Glucose 165 H 09/24/24 15:38: POC Glucose 109 H Exam Physical Exam Const alert, oriented x3, no apparent distress and well nourished General Appearance: cooperative and well developed HEENT normocephalic and EAC's normal Head and Scalp: atraumatic Eyes EOMs intact bilaterally Neck no JVD Resp normal respiratory effort and no use of accessory muscles Effort and Inspection: able to speak in complete sentences Psych affect normal Appearance: grossly normal Speech: normal speech Charges/Coding Wound Center CF Procedures HBO Supervision: [id number] Hyperbaric Oxygen; supervision Assessment/Plan Assessment/Plan (1) Skin graft (allograft) (autograft) failure: CODE(S): T86.821 - Skin graft (allograft) (autograft) failure (2) Wound of left ankle: CODE(S): S91.002A - Unspecified open wound, left ankle, initial encounter QUALIFIERS: Encounter type: subsequent encounter Qualified Code(s): S91.002D - Unspecified open wound, left ankle, subsequent encounter (3) Type 2 diabetes mellitus with hyperglycemia: CODE(S): E11.65 - Type 2 diabetes mellitus with hyperglycemia QUALIFIERS: 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 The patient's medical care will proceed as per plan.
[2024-10-07 15:21] VITALS: BP 126/70; PULSE 103; RESP 16; TEMP 36.1; BMI 34.9
--- NOTE | 2024-10-07 15:44 | WC ---
Pt called in and stated she would be here for her 1pm dive around 12:15pm.Then called back in stating that she made it to the car and then needed to use the restroom. She also stated she afraid this will continue to happen and has decided to stop HBOT.
--- NOTE | 2024-10-08 14:04 | PN.PCM_ITS ---
History of Present Illness Date of Service: 10/07/24 Chief Complaint: Surgical dehiscence with exposure of the Achilles tendon left lower extremity; Allograft failure History of Wound: 59 y/o female with DM type II with peripheral polyneuropathy, peripheral vascular disease, asthma, morbid obesity, HTN, and hyperlipidemia presented to the [facility] for continued care of surgical dehiscence of her posterior left lower extremity with exposure of the Achilles tendon. The patient underwent surgical intervention to correct calcaneal gait with plantar ulceration of the left heel on 01/26/2024. At that time of surgery she was found to have tendo Achilles tear to the left lower extremity resulting in a calcaneal gait. Tendon was debrided and a shortening of the tendo Achilles was performed in addition to FHL tendon transfer. 3 weeks later patient had fallen placing weight to the foot resulting in a tear and dehiscence of the surgical site with exposure of the Achilles tendon. She was returned to the OR for debridement on 02/22/2024 and wound VAC was applied over ulcerative area. She did have PICC line and completed 6 weeks of IV antibiotics during stay in the transitional care unit. She completed IV antibiotic 04/04/2024 PICC line was pulled and she was discharged from the transitional care unit to home. Surgery by Dr. Solano on 06/10/24 for Split-thickness skin grafting from the left lateral thigh to the left Achilles tendon ankle wound 7 x [address] Solano on 05/20/23 for Excision of left posterior ankle wound, including biofilm, subcutaneous tissue, fascia, and tendon, 7 x 3 cm and Irrigating wound VAC, vera flow, not disposable AND 05/22/24 - Excision of left posterior ankle wound, including biofilm, subcutaneous tissue, fascia, and tendon and Placement of dermal substitute (Integra) and wound VAC placed. Operative culture 05/15/24 positive for MSSA and Anaerobic cocci. Treated with Doxy, cefdinir, and Flagyl. Patient underwent multiple debridements and eventual skin grafting on 11 June 2024. She has developed compromise of her skin graft. The patient has been undergoing hyperbaric oxygen therapy as per serial documentation. She underwent repeat surgical skin grafting of her wound on Monday, August 21, 2024. Hyperbaric oxygen therapy continues due to a compromise of her prior skin graft, and to support the healing of her most recent skin grafting procedure. Progress of Wound: Today represents the patient's 30th session of hyperbaric oxygen therapy. Tolerance of hyperbaric oxygen therapy: Hyperbaric oxygen therapy was administered as per the facility's protocol. Hyperbaric oxygen therapy was administered at 100% oxygen at 2 richar for 90 minutes without air breaks. The patient tolerated hyperbaric oxygen therapy well, without complaints or complications. Upon emergence from the hyperbaric chamber, the patient's vital signs remained stable. Preprocedure blood sugar was 165. Postprocedure blood sugar was 109. The patient was discharged in good condition. Subjective Subjective Doing well. Finished HBO. Compliant with Hydrogel dressings and reports that she has been pressure offloading the wound Objective Data Objective Data Vital Signs: Vital Signs Temp Pulse Resp BP O2 Del Method 96.9 F L 103 H 16 126/70 H Room Air 10/07/24 15:21 10/07/24 15:21 10/07/24 15:21 10/07/24 15:21 10/07/24 15:21 Oxygen Delivery Method Room Air Weight: 230 lb Body Mass Index (BMI) 34.9 Charges/Coding Procedures Integumentary [id number]: [id number] Global Visit Physical Exam Narrative LLE: Very small open areas. Healing well (quite close, there is an open area of 1 x 2 cm with just raw excoriated skin). no signs of infection. No signs of exposed tendon. Const alert and oriented x3 HEENT external ears normal, EAC's normal and TM's normal bilaterally Resp normal respiratory effort and clear to auscultation bilaterally Cardio regular rate Rhythm: regular rhythm Heart Sounds: S1 normal and S2 normal Debridement Note Debridement Note No debridement was completed: No debridement was completed today Post-Debridement Measurements and Additional Note: Post-Debridement Measurements/Treatment WC - Nurse 1 - General Ulcer Assessment Start: 09/24/24 16:00 Freq: Status: Active Protocol: BUSTER Activity Type Activity Date Activity User E-sign Co-sign Detail Recorded Client Recorded Date Recorded By Document 10/07/24 15:21 KW [id number] 10/07/24 15:31 KW 10/07/24 15:21 - Today's Visit Information Type of service Follow-up Visit (Physician/JEWELRY SORTER ) Arrival Mode Ambulatory Patient Identification Verified (Name & Yes ) Height and Weight Body Mass Index (BMI) 34.9 BMI Classification Obese Vital Signs Temperature (97.8 F-99.1 F) 96.9 F L Temperature Source Temporal Pulse Rate (60-100) 103 H Pulse Location Monitor Respiratory Rate (12-18) 16 Respiratory rate source Observation Oxygen Delivery Method Room Air Blood Pressure (90/60-120/80) 126/70 H Blood Pressure Mean (mm Hg) 88 Source Monitor Position Sitting Blood Pressure Location Left Arm History Since Last Visit- (Skip if this is Patient's initial visit) Have you changed medications since your No last visit? Any new allergies or adverse reactions No Had a fall/change in ADL's that may No increase risk of falls Signs or symptoms of abuse and/or No neglect since last visit Have you been in the hospital since your No last visit? Has dressing in place as prescribed Yes Has compression in place as prescribed Yes Has offloadiing in place as prescribed N/A Experienced any changes in pain level or No management Left Footwear Regular Shoe Right Footwear Regular Shoe Pain Scale: 0-10 Numeric Is Patient Pain Free? Yes WC - Nurse 1 - General Ulcer Measurement Start: 09/24/24 16:00 Freq: Status: Active Protocol: Activity Type Activity Date Activity User E-sign Co-sign Detail Recorded Client Recorded Date Recorded By Document 10/07/24 15:21 KW [id number] 10/07/24 15:31 KW 10/07/24 15:21 Wound Center Nurse 1 5. L post ankle/ Achilles repair post-op -Current Size (cm) - Length 5 -Current Size (cm) - Width 0.6 -Current Size (cm) - Depth 0.1 -Total Square Cm 3.0 -Granulation Amt Small (1-33%) -Granulation Quality Red -Necrosis Amt Large (67-100%) -Necrotic Tissue Type Adherent Slough -Texture (Yanely-wound Skin Appearance) Assessed -Moisture (Yanely-wound Skin Appearance) Assessed -Color (Yanely-wound Skin Appearance) Assessed -Temperature (Yanely-wound Skin No Abnormality Appearance) (Pt Warm) -Tenderness on Palpation (Yanely-wound No Skin Appearance) -Ulcer Cleansing Rinsed/ Irrigated with Saline -Foul Odor after Cleansing No -Anesthetic Used 5% Lidocaine Gel WC - Nurse 2 - General Ulcer CM Notes Start: 09/24/24 16:00 Freq: Status: Active Protocol: Activity Type Activity Date Activity User E-sign Co-sign Detail Recorded Client Recorded Date Recorded By Document 10/07/24 16:22 [id number] 10/07/24 16:23 10/07/24 16:22 Wound Center Nurse 2 -Correct Patient No -Correct Side, Site, Position No -Correct Procedure No -Procedure Performed No -Post Debridement (cm) - Length 0.1 -Post Debridement (cm) - Width 0.1 -Post Debridement (cm) - Depth 0.1 -Total Square (Post) (cm) 0.01 -Area of Debridement (cm) - Length 0.1 -Area of Debridement (cm) - Width 0.1 -Total Square (Area) (cm) 0.01 -Wound/Ulcer Outcome Not Healed Pain Scale: 0-10 Numeric Is Patient Pain Free? Yes - Nurse 3 - General Ulcer D/C NN Start: 09/24/24 16:00 Freq: Status: Active Protocol: Activity Type Activity Date Activity User E-sign Co-sign Detail Recorded Client Recorded Date Recorded By Document 10/07/24 16:25 [facility] [id number] 10/07/24 16:26 [facility] 10/07/24 16:25 Wound Care Center Nurse 3 5. L post ankle/ Achilles repair post-op -Ulcer Cleansing Rinsed/ Irrigated with Saline -Foul Odor after Cleansing No -Primary Dressing Applied C Hydrogel ($) -Other Dressing drsg per dl silhouette artist -Primary Dressing Covered/Secured with Dry Gauze & Roll Gauze, Secured with Tape left leg -Compression Wrap Mustapha Wrap Treatment Response Procedure Tolerated Well Pain Scale: 0-10 Numeric Is Patient Pain Free? Yes - Visit Discharge Discharge Condition Stable Ambulatory Status Ambulatory Transportation Private Auto Assessment/Plan Assessment/Plan (1) Wound of left ankle: CODE(S): S91.002A - Unspecified open wound, left ankle, initial encounter QUALIFIERS: Encounter type: subsequent encounter Qualified Code(s): S91.002D - Unspecified open wound, left ankle, subsequent encounter PLAN: Healing quite well Continue pressure offloading and twice daily hydrogel Follow-up in 2 weeks
== END 2024-10-11 23:59 | disposition home or self-care (01) ==
LOC: WC 15:30
PROVIDERS: PCP Family Medicine Geriatric Medicine; Referring Provider Surgery Plastic and Reconstructive Surgery; Visit Provider Surgery Plastic and Reconstructive Surgery
DX: T81.31XA Disruption of external operation (surgical) wound, not elsewhere classified, initial encounter (principal); E66.01 Morbid (severe) obesity due to excess calories; E11.65 Type 2 diabetes mellitus with hyperglycemia; E11.42 Type 2 diabetes mellitus with diabetic polyneuropathy; E11.51 Type 2 diabetes mellitus with diabetic peripheral angiopathy without gangrene; Z79.4 Long term (current) use of insulin; T86.821 Skin graft (allograft) (autograft) failure; I10 Essential (primary) hypertension; J45.909 Unspecified asthma, uncomplicated; E78.5 Hyperlipidemia, unspecified; Z79.82 Long term (current) use of aspirin; Z79.84 Long term (current) use of oral hypoglycemic drugs; Z79.85 Long-term (current) use of injectable non-insulin antidiabetic drugs; Z79.899 Other long term (current) drug therapy
CPT/HCPCS: 82962; 99183; 99213; G0277; G0463

== ENCOUNTER → 2024-10-08 | Outpatient (CLI) | payer MEDICARE, MEDICAID, SELFPAY ==
--- NOTE | 2024-10-08 11:39 | BI_ITS ---
PROCEDURE: SCRN MAMM (CAD)W/RACHAEL BILAT REASON FOR EXAM: F, Age 59 y/o, routine annual mammogram. No family history. TECHNIQUE: Bilateral screening digital breast tomosynthesis with 2D and 3D images. Computer aided detection. COMPARISON: Prior exam(s) dating back to June 20, 2019.. FINDINGS: The breasts are almost entirely fatty. No change since prior study. No suspicious masses, areas of developing architectural distortion, or suspicious calcifications. BI/SCRN MAMM (CAD)W/RACHAEL BILAT IMPRESSION: BI-RADS 1: NEGATIVE. RECOMMEND ANNUAL MAMMOGRAPHIC SCREENING. Stable examinati on. Follow-up code: Routine Follow-up The patient will be notified of the results by letter. Reading Location: [place] [id number]
== END | disposition home or self-care (01) ==
PROVIDERS: PCP Family Medicine Geriatric Medicine; Referring Provider Family Medicine Geriatric Medicine; Visit Provider Family Medicine Geriatric Medicine
DX: Z12.31 Encounter for screening mammogram for malignant neoplasm of breast (principal)
CPT/HCPCS: 77063; 77067

== ENCOUNTER 2024-10-28 15:18 | Outpatient (RCR) | payer MEDICARE, MEDICAID, SELFPAY ==
[2024-10-12 00:58] VITALS: BP 126/70; BP 130/86; BP 134/78; PULSE 103; PULSE 77; PULSE 84; RESP 14; RESP 16; TEMP 35.5; TEMP 36.1; BMI 34.9
[2024-10-28 15:19] VITALS: BP 171/64; PULSE 84; RESP 18; TEMP 35.8; BMI 34.9
--- NOTE | 2024-10-28 16:15 | NURSING ---
PHOTO 10/28/24 Left Achilles
--- NOTE | 2024-10-29 07:39 | PN.PCM_ITS ---
History of Present Illness Date of Service: 10/28/24 Chief Complaint: Surgical dehiscence with exposure of the Achilles tendon left lower extremity; Allograft failure History of Wound: 59 y/o female with DM type II with peripheral polyneuropathy, peripheral vascular disease, asthma, morbid obesity, HTN, and hyperlipidemia presented [facility] for continued care of surgical dehiscence of her posterior left lower extremity with exposure of the Achilles tendon. The patient underwent surgical intervention to correct calcaneal gait with plantar ulceration of the left heel on 01/26/2024. At that time of surgery she was found to have tendo Achilles tear to the left lower extremity resulting in a calcaneal gait. Tendon was debrided and a shortening of the tendo Achilles was performed in addition to FHL tendon transfer. 3 weeks later patient had fallen placing weight to the foot resulting in a tear and dehiscence of the surgical site with exposure of the Achilles tendon. She was returned to the OR for debridement on 02/22/2024 and wound VAC was applied over ulcerative area. She did have PICC line and completed 6 weeks of IV antibiotics during stay in the transitional care unit. She completed IV antibiotic 04/04/2024 PICC line was pulled and she was discharged from the transitional care unit to home. Surgery by Dr. Solano on 06/10/24 for Split-thickness skin grafting from the left lateral thigh to the left Achilles tendon ankle wound 7 x [address] Solano on 05/20/23 for Excision of left posterior ankle wound, including biofilm, subcutaneous tissue, fascia, and tendon, 7 x 3 cm and Irrigating wound VAC, vera flow, not disposable AND 05/22/24 - Excision of left posterior ankle wound, including biofilm, subcutaneous tissue, fascia, and tendon and Placement of dermal substitute (Integra) and wound VAC placed. Operative culture 05/15/24 positive for MSSA and Anaerobic cocci. Treated with Doxy, cefdinir, and Flagyl. Patient underwent multiple debridements and eventual skin grafting on 11 June 2024. She has developed compromise of her skin graft. The patient has been undergoing hyperbaric oxygen therapy as per serial documentation. She underwent repeat surgical skin grafting of her wound on Monday, August 21, 2024. Hyperbaric oxygen therapy continues due to a compromise of her prior skin graft, and to support the healing of her most recent skin grafting procedure. Subjective Subjective Doing well. Finished HBO. Compliant with Hydrogel dressings and reports that she has been pressure offloading the wound Objective Data Objective Data Vital Signs: Vital Signs Temp Pulse Resp BP O2 Del Method 96.5 F L 84 18 171/64 H Room Air 10/28/24 15:19 10/28/24 15:19 10/28/24 15:19 10/28/24 15:19 10/28/24 15:19 Oxygen Delivery Method Room Air Weight: 230 lb Body Mass Index (BMI) 34.9 Charges/Coding Procedures Integumentary 111xxx-113xx: 90968 Global Visit Physical Exam Narrative LLE: Very small open areas. Healing well (quite close, there is an open area of 1 x 0.5 cm with just raw excoriated skin). no signs of infection. No signs of exposed tendon. Const alert and oriented x3 HEENT external ears normal, EAC's normal and TM's normal bilaterally Resp normal respiratory effort and clear to auscultation bilaterally Cardio regular rate Rhythm: regular rhythm Heart Sounds: S1 normal and S2 normal Debridement Note Debridement Note No debridement was completed: No debridement was completed today Post-Debridement Measurements and Additional Note: Post-Debridement Measurements/Treatment WC - Nurse 1 - General Ulcer Assessment Start: 10/28/24 15:19 Freq: Status: Active Protocol: BUSTER Activity Type Activity Date Activity User E-sign Co-sign Detail Recorded Client Recorded Date Recorded By Document 10/28/24 15:19 KW [id number] 10/28/24 15:26 KW 10/28/24 15:19 - Today's Visit Information Type of service Follow-up Visit (Physician/FORESTRY EXTENSION SPECIALIST ) Arrival Mode Ambulatory,Cane Patient Identification Verified (Name & Yes ) Height and Weight Body Mass Index (BMI) 34.9 BMI Classification Obese Vital Signs Temperature (97.8 F-99.1 F) 96.5 F L Temperature Source Temporal Pulse Rate (60-100) 84 Pulse Location Monitor Respiratory Rate (12-18) 18 Respiratory rate source Observation Oxygen Delivery Method Room Air Blood Pressure (90/60-120/80) 171/64 H Blood Pressure Mean (mm Hg) 99 Source Monitor Position Semi-Fowlers Blood Pressure Location Left Forearm History Since Last Visit- (Skip if this is Patient's initial visit) Have you changed medications since your No last visit? Any new allergies or adverse reactions No Had a fall/change in ADL's that may No increase risk of falls Signs or symptoms of abuse and/or No neglect since last visit Have you been in the hospital since your No last visit? Has dressing in place as prescribed Yes Has compression in place as prescribed Yes Has offloadiing in place as prescribed N/A Experienced any changes in pain level or No management Left Footwear Regular Shoe Right Footwear Regular Shoe Pain Scale: 0-10 Numeric Is Patient Pain Free? Yes WC - Nurse 1 - General Ulcer Measurement Start: 10/28/24 15:19 Freq: Status: Active Protocol: Activity Type Activity Date Activity User E-sign Co-sign Detail Recorded Client Recorded Date Recorded By Document 10/28/24 15:19 KW [id number] 10/28/24 15:26 KW 10/28/24 15:19 Wound Center Nurse 1 5. L post ankle/ Achilles repair post-op -Current Size (cm) - Length 1 -Current Size (cm) - Width 0.7 -Current Size (cm) - Depth 0 -Total Square Cm 0.7 -Date of Last Picture (Recall this 10/28/24 field) -Epithelialization Large 67-100% -Exudate Amt Small -Exudate Type Serosanguineous -Wound Margin Distinct, Outline Attached -Granulation Amt Large (67-100%) -Granulation Quality Caspian,Red -Texture (Yanely-wound Skin Appearance) Assessed -Moisture (Yanely-wound Skin Appearance) Dry/Scaly -Color (Yanely-wound Skin Appearance) Assessed -Temperature (Yanely-wound Skin No Abnormality Appearance) (Pt Warm) -Tenderness on Palpation (Yanely-wound No Skin Appearance) -Ulcer Cleansing Rinsed/ Irrigated with Saline -Foul Odor after Cleansing No -Anesthetic Used 5% Lidocaine Gel WC - Nurse 2 - General Ulcer CM Notes Start: 10/28/24 15:19 Freq: Status: Active Protocol: Activity Type Activity Date Activity User E-sign Co-sign Detail Recorded Client Recorded Date Recorded By Document 10/28/24 15:47 JF [id number] 10/28/24 15:48 JF 10/28/24 15:47 Wound Center Nurse 2 -Correct Patient No -Correct Side, Site, Position No -Correct Procedure No -Procedure Performed No -Wound/Ulcer Outcome Not Healed -Debridement - Subq, 1st 20sq cm No Pain Scale: 0-10 Numeric Is Patient Pain Free? Yes WC - Nurse 3 - General Ulcer D/C NN Start: 10/28/24 15:19 Freq: Status: Active Protocol: Activity Type Activity Date Activity User E-sign Co-sign Detail Recorded Client Recorded Date Recorded By Document 10/28/24 16:04 DL [id number] 10/28/24 16:05 DL 10/28/24 16:04 Wound Care Center Nurse 3 5. L post ankle/ Achilles repair post-op -Ulcer Cleansing Rinsed/ Irrigated with Saline -Foul Odor after Cleansing No -Primary Dressing Applied C Hydrogel, NonAdherent Contact Layer -Primary Dressing Covered/Secured with Dry Gauze & Roll Gauze, Secured with Tape Treatment Response Procedure Tolerated Well Pain Scale: 0-10 Numeric Is Patient Pain Free? Yes - Visit Discharge Discharge Condition Stable Ambulatory Status Ambulatory,Cane Transportation Private Auto Assessment/Plan Assessment/Plan (1) Wound of left ankle: CODE(S): S91.002A - Unspecified open wound, left ankle, initial encounter QUALIFIERS: Encounter type: subsequent encounter Qualified Code(s): S91.002D - Unspecified open wound, left ankle, subsequent encounter PLAN: Healing quite well Continue pressure offloading and twice daily hydrogel Follow-up in 3 weeks
== END 2024-11-08 23:59 | disposition home or self-care (01) ==
LOC: WC 15:18
PROVIDERS: PCP Family Medicine Geriatric Medicine; Referring Provider Surgery Plastic and Reconstructive Surgery; Visit Provider Surgery Plastic and Reconstructive Surgery
DX: T81.31XA Disruption of external operation (surgical) wound, not elsewhere classified, initial encounter (principal); E66.01 Morbid (severe) obesity due to excess calories; E11.42 Type 2 diabetes mellitus with diabetic polyneuropathy; Z79.4 Long term (current) use of insulin; E11.51 Type 2 diabetes mellitus with diabetic peripheral angiopathy without gangrene; Y83.8 Other surgical procedures as the cause of abnormal reaction of the patient, or of later complication, without mention of misadventure at the time of the procedure; I10 Essential (primary) hypertension; Z68.34 Body mass index [BMI] 34.0-34.9, adult; E78.5 Hyperlipidemia, unspecified; J45.909 Unspecified asthma, uncomplicated; Z79.82 Long term (current) use of aspirin; Z79.84 Long term (current) use of oral hypoglycemic drugs; Z79.85 Long-term (current) use of injectable non-insulin antidiabetic drugs; Z79.890 Hormone replacement therapy; Z79.899 Other long term (current) drug therapy
CPT/HCPCS: 99213; G0463

== ENCOUNTER 2024-11-18 15:16 | Outpatient (RCR) | payer MEDICARE, MEDICAID, SELFPAY ==
[2024-11-09 01:52] VITALS: BP 130/86; BP 134/78; BP 171/64; PULSE 77; PULSE 84; RESP 14; RESP 16; RESP 18; TEMP 35.5; TEMP 35.8; TEMP 36.1; BMI 34.9
[2024-11-18 15:17] VITALS: BP 137/77; PULSE 94; RESP 16; TEMP 36.3; BMI 34.9
--- NOTE | 2024-11-18 16:16 | WC ---
PHOTO 11/18/24 LEFT ACHILLES
--- NOTE | 2024-11-18 16:43 | PCM.WC.PN ---
History of Present Illness Date of Service: 11/18/24 Chief Complaint: Surgical dehiscence with exposure of the Achilles tendon left lower extremity; Allograft failure History of Wound: 59 y/o female with DM type II with peripheral polyneuropathy, peripheral vascular disease, asthma, morbid obesity, HTN, and hyperlipidemia presented to the [facility] for continued care of surgical dehiscence of her posterior left lower extremity with exposure of the Achilles tendon. The patient underwent surgical intervention to correct calcaneal gait with plantar ulceration of the left heel on 01/26/2024. At that time of surgery she was found to have tendo Achilles tear to the left lower extremity resulting in a calcaneal gait. Tendon was debrided and a shortening of the tendo Achilles was performed in addition to FHL tendon transfer. 3 weeks later patient had fallen placing weight to the foot resulting in a tear and dehiscence of the surgical site with exposure of the Achilles tendon. She was returned to the OR for debridement on 02/22/2024 and wound VAC was applied over ulcerative area. She did have PICC line and completed 6 weeks of IV antibiotics during stay in the transitional care unit. She completed IV antibiotic 04/04/2024 PICC line was pulled and she was discharged from the transitional care unit to home. Surgery by Dr. Solano on 06/10/24 for Split-thickness skin grafting from the left lateral thigh to the left Achilles tendon ankle wound 7 x [address] Solano on 05/20/23 for Excision of left posterior ankle wound, including biofilm, subcutaneous tissue, fascia, and tendon, 7 x 3 cm and Irrigating wound VAC, vera flow, not disposable AND 05/22/24 - Excision of left posterior ankle wound, including biofilm, subcutaneous tissue, fascia, and tendon and Placement of dermal substitute (Integra) and wound VAC placed. Operative culture 05/15/24 positive for MSSA and Anaerobic cocci. Treated with Doxy, cefdinir, and Flagyl. Patient underwent multiple debridements and eventual skin grafting on 11 June 2024. She has developed compromise of her skin graft. The patient has been undergoing hyperbaric oxygen therapy as per serial documentation. She underwent repeat surgical skin grafting of her wound on Monday, August 21, 2024. Hyperbaric oxygen therapy continues due to a compromise of her prior skin graft, and to support the healing of her most recent skin grafting procedure. Subjective Subjective Doing well. Finished HBO last month. Compliant with Hydrogel dressings and reports that she has been pressure offloading the wound. Objective Data Objective Data Vital Signs: Vital Signs Temp Pulse Resp BP O2 Del Method 97.4 F L 94 16 137/77 H Room Air 11/18/24 15:17 11/18/24 15:17 11/18/24 15:17 11/18/24 15:17 11/18/24 15:17 Oxygen Delivery Method Room Air Weight: 230 lb Body Mass Index (BMI) 34.9 Charges/Coding Procedures Integumentary 111xxx-113xx: 83766 Global Visit Physical Exam Narrative LLE: No open areas. No signs of infection. No signs of exposed tendon. Just has dry skin now. Const alert and oriented x3 HEENT external ears normal, EAC's normal and TM's normal bilaterally Resp normal respiratory effort and clear to auscultation bilaterally Cardio regular rate Rhythm: regular rhythm Heart Sounds: S1 normal and S2 normal Debridement Note Debridement Note No debridement was completed: No debridement was completed today Post-Debridement Measurements and Additional Note: Post-Debridement Measurements/Treatment - Nurse 1 - General Ulcer Assessment Start: 11/18/24 15:17 Freq: Status: Active Protocol: WC.LOWSERAT Activity Type Activity Date Activity User E-sign Co-sign Detail Recorded Client Recorded Date Recorded By Document 11/18/24 15:17 [facility] [id number] 11/18/24 15:20 [facility] 11/18/24 15:17 - Today's Visit Information Type of service Follow-up Visit (Physician/LICENSED PRACTICAL NURSE ) Arrival Mode Ambulatory,Cane Transfer Assistance None Patient Identification Verified (Name & Yes ) Patient Requires Transmission-Based No Precautions Finger Stick Blood Sugar(mg/dl) (if 185 indicated): Blood Sugar Stated by Patient Height and Weight Body Mass Index (BMI) 34.9 BMI Classification Obese Vital Signs Temperature (97.8 F-99.1 F) 97.4 F L Temperature Source Temporal Pulse Rate (60-100) 94 Pulse Location Monitor Respiratory Rate (12-18) 16 Respiratory rate source Observation Oxygen Delivery Method Room Air Blood Pressure (90/60-120/80) 137/77 H Blood Pressure Mean (mm Hg) 97 Source Monitor Position Sitting Blood Pressure Location Left Arm History Since Last Visit- (Skip if this is Patient's initial visit) Have you changed medications since your No last visit? Any new allergies or adverse reactions No Had a fall/change in ADL's that may No increase risk of falls Signs or symptoms of abuse and/or No neglect since last visit Have you been in the hospital since your No last visit? Has dressing in place as prescribed Yes Has compression in place as prescribed N/A Has offloadiing in place as prescribed N/A Experienced any changes in pain level or No management Left Footwear Regular Shoe Right Footwear Regular Shoe Pain Scale: 0-10 Numeric Is Patient Pain Free? Yes - Nurse 1 - General Ulcer Measurement Start: 11/18/24 15:17 Freq: Status: Active Protocol: Activity Type Activity Date Activity User E-sign Co-sign Detail Recorded Client Recorded Date Recorded By Document 11/18/24 15:17 [facility] [id number] 11/18/24 15:20 [facility] 11/18/24 15:17 Wound Center Nurse 1 5. L post ankle/ Achilles repair post-op -Combined with other wound No -Current Size (cm) - Length 0.1 -Current Size (cm) - Width 0.1 -Current Size (cm) - Depth 0.1 -Total Square Cm 0.01 -Date of Last Picture (Recall this 11/18/24 field) -Photo Taken Yes -Epithelialization Large 67-100% -Tunneling No -Undermining/Tunneling No -Circular Undermining No -Exudate Amt None Present -Texture (Yanely-wound Skin Appearance) Assessed, Scarring -Moisture (Yanely-wound Skin Appearance) Assessed,Dry/ Scaly -Color (Yanely-wound Skin Appearance) Assessed -Temperature (Yanely-wound Skin No Abnormality Appearance) (Pt Warm) WC - Nurse 2 - General Ulcer CM Notes Start: 11/18/24 15:17 Freq: Status: Active Protocol: Activity Type Activity Date Activity User E-sign Co-sign Detail Recorded Client Recorded Date Recorded By Document 11/18/24 15:33 GONZALO [id number] 11/18/24 15:36 GONZALO 11/18/24 15:33 Wound Center Nurse 2 -Correct Patient No -Correct Side, Site, Position No -Correct Procedure No -Procedure Performed No -Post Debridement (cm) - Length 0 -Post Debridement (cm) - Width 0 -Post Debridement (cm) - Depth 0 -Total Square (Post) (cm) 0 -Area of Debridement (cm) - Length 0 -Area of Debridement (cm) - Width 0 -Total Square (Area) (cm) 0 -Wound/Ulcer Outcome Healed- Epithelialized Pain Scale: 0-10 Numeric Is Patient Pain Free? Yes - Nurse 3 - General Ulcer D/C NN Start: 11/18/24 15:17 Freq: Status: Active Protocol: Activity Type Activity Date Activity User E-sign Co-sign Detail Recorded Client Recorded Date Recorded By Document 11/18/24 15:36 [id number] 11/18/24 15:37 11/18/24 15:36 Is Patient Pain Free? Yes WC - Visit Discharge Discharge Condition Stable Ambulatory Status Ambulatory,Cane Transportation Private Auto Medication Reconcilliation completed & Yes provided to patient/care provider Clinical Summary of Care Provided Yes Assessment/Plan Assessment/Plan (1) Wound of left ankle: CODE(S): S91.002A - Unspecified open wound, left ankle, initial encounter QUALIFIERS: Encounter type: sequela Qualified Code(s): S91.002S - Unspecified open wound, left ankle, sequela PLAN: Healed Aquafor for dry skin F/u with Dr. Godinez for foot and ankle care Discussed pressure offloading and preventing wounds. Also talked about sugar control. F/u as needed.
== END 2024-12-09 16:19 | disposition home or self-care (01) ==
LOC: WC 15:16
PROVIDERS: PCP Family Medicine Geriatric Medicine; Referring Provider Surgery Plastic and Reconstructive Surgery; Visit Provider Surgery Plastic and Reconstructive Surgery
DX: Z09 Encounter for follow-up examination after completed treatment for conditions other than malignant neoplasm (principal); E66.01 Morbid (severe) obesity due to excess calories; E11.42 Type 2 diabetes mellitus with diabetic polyneuropathy; Z79.4 Long term (current) use of insulin; I10 Essential (primary) hypertension; E78.5 Hyperlipidemia, unspecified; Z79.82 Long term (current) use of aspirin; Z79.85 Long-term (current) use of injectable non-insulin antidiabetic drugs; Z79.890 Hormone replacement therapy; Z79.899 Other long term (current) drug therapy
CPT/HCPCS: 99213; G0463

== ENCOUNTER → 2024-11-21 | Outpatient (CLI) | payer MEDICARE, MEDICAID, SELFPAY | END | disposition home or self-care (01) | LOC: POLAB3 14:22 | PROVIDERS: PCP Family Medicine Geriatric Medicine; Visit Provider Family Medicine Geriatric Medicine | DX: R68.83 Chills (without fever) (principal); E03.9 Hypothyroidism, unspecified | CPT/HCPCS: 36415; 84443; 87631 ==

== ENCOUNTER → 2024-12-30 | Outpatient (CLI) | payer MEDICARE, MEDICAID, SELFPAY ==
[2024-12-30 16:57] LABS: Bacteria 0 SEEN /hpf (None Seen); Mucous, Urine 0 SEEN /hpf (<or=2+)
[2024-12-30 17:12] LABS: Color, Urine Straw (Yellow); Glucose, Dipstick 1000 mg/dl (Normal); Ketone-Dipstick Negative (Negative); Leukocyte Esterase-Dipstick Negative /ul (Negative); Nitrite-Dipstick Negative (Negative); Occult Blood-Urine Negative /ul (Negative); Protein-Dipstick Negative (Negative); Urine Bilirubin Dipstick Negative (Negative); Urine Clarity Clear (Clear); Urine Urobilinogen Normal (Normal)
[2024-12-30 20:25] LABS: White Blood Cells 0-5 SEEN /hpf (0-5)
[2024-12-30 20:26] LABS: Red Blood Cells-Urine 0-5 SEEN /hpf (0-5); Squamous Epithelial Cells - UA 0-5 SEEN /hpf (5-10)
== END | disposition home or self-care (01) ==
PROVIDERS: PCP Family Medicine Geriatric Medicine; Referring Provider Family Medicine Geriatric Medicine; Visit Provider Family Medicine Geriatric Medicine
DX: N32.81 Overactive bladder (principal); R05.9 Cough, unspecified; R06.2 Wheezing; R68.83 Chills (without fever)
CPT/HCPCS: 36415; 81001; 87086; 87631

== ENCOUNTER → 2025-01-02 | Outpatient (CLI) | payer MEDICARE, MEDICAID, SELFPAY ==
[2025-01-02 19:02] LABS: Hemoglobin A1c 8.2 % (<=5.6)
[2025-01-02 20:00] LABS: ALB/GLOB Ratio 1.2 RATIO (0.9-2.4); AST(SGOT) 32 U/L (<=31); Alanine Aminotransfer ALT/SGPT 42 U/L (<=34); Albumin, Serum 4.4 g/dL (3.4-4.8); Alkaline Phosphatase 94 U/L (35-104); Anion Gap 16 (5-15); BUN 20 mg/dL (4-19); BUN/Creat Ratio 24.3 RATIO (10-20); Calcium,Total 9.1 mg/dL (7.6-11.0); Carbon Dioxide 22.3 mmol/L (21.0-32.0); Chloride 97 mmol/L (98-108); Creatinine, Serum 0.81 mg/dL (0.70-1.20); EST Glomerular Filtration Rate 83 (>60); Globulin 3.6 g/dL (2.2-4.2); Glucose 290 mg/dL (70-99); Potassium 4.9 mmol/L (3.3-5.1); Sodium Level 136 mmol/L (133-145)
[2025-01-02 20:37] LABS: Cholesterol 152 mg/dL (<=200); High Density Lipoprotein 55 mg/dL; Low Density Lipoprotein Calc. 45 mg/dL; Triglycerides 257 mg/dL; Very Low Density Lipoprotein 51 mg/dL (5-40); cholesterol:hdl ratio screen 2.75
[2025-01-02 23:14] LABS: Absolute Lymphocyte Count 1.33 X10^3/uL (0.83-4.51); Absolute Neutrophil Count 6.2 X10^3/uL (2.0-7.7); Basophil# 0.04 X10^3/uL; Basophil% 0.5 % (0-1); Hematocrit 38.1 % (37-47); Hemoglobin 12.1 g/dL (12.0-15.0); Lymphocyte # 1.33 X10^3/ul (0.83-4.51); Lymphocyte % 16.8 % (19-41); Mean Corp Hgb Conc 31.8 g/dL (32-36); Mean Corpuscular Hgb 26.8 pg (27.0-32.0); Mean Corpuscular Volume 84.5 fL (81-99); Mean Platelet Vol. 9.7 fl (6.2-12.0); Monocyte# 0.29 X10^3/uL; Monocyte% 3.7 % (0-10); NRBC Flagged by Analyzer 0.4 % (0-5); Neutrophil # 6.18 X10^3/uL (2.7-7.7); Neutrophil % 77.7 % (47-70); Platelet Count 383 K/mm3 (150-450); RBC Distribution Width SD 45.4 fl (35.1-43.9); Red Blood Count 4.51 M/mm3 (4.2-5.4); White Blood Count 7.9 K/mm3 (4.4-11.0)
== END | disposition home or self-care (01) ==
LOC: LAB 17:05
PROVIDERS: PCP Family Medicine Geriatric Medicine; Referring Provider Family Medicine Geriatric Medicine; Visit Provider Family Medicine Geriatric Medicine
DX: E78.5 Hyperlipidemia, unspecified (principal); E11.621 Type 2 diabetes mellitus with foot ulcer; E11.65 Type 2 diabetes mellitus with hyperglycemia; I10 Essential (primary) hypertension
CPT/HCPCS: 36415; 80053; 80061; 83036; 84443; 85025

== ENCOUNTER 2025-02-05 18:01 | Outpatient (CLI) | payer MEDICARE, MEDICAID, SELFPAY | END 2025-02-05 23:59 | disposition home or self-care (01) | PROVIDERS: PCP Family Medicine Geriatric Medicine; Visit Provider Family Medicine Geriatric Medicine | DX: R05.9 Cough, unspecified (principal) | CPT/HCPCS: 87631 ==

== ENCOUNTER → 2025-03-18 | Outpatient (CLI) | payer MEDICARE, MEDICAID, SELFPAY | END | disposition home or self-care (01) | LOC: POLAB3 15:47 | PROVIDERS: PCP Family Medicine Geriatric Medicine; Visit Provider Family Medicine Geriatric Medicine | DX: R68.83 Chills (without fever) (principal); E03.9 Hypothyroidism, unspecified | CPT/HCPCS: 36415; 84443; 87631 ==

== ENCOUNTER → 2025-04-01 | Outpatient (CLI) | payer MEDICARE, MEDICAID, SELFPAY ==
[2025-04-01 13:29] LABS: Hematocrit 40.6 % (37-47); Hemoglobin 12.7 g/dL (12.0-15.0); Immature Granulocytes Count 0.020 X10^3/uL (0.0-0.0); Mean Corp Hgb Conc 31.3 g/dL (32-36); Mean Corpuscular Volume 84.8 fL (81-99); Mean Platelet Vol. 9.3 fl (6.2-12.0); NRBC Flagged by Analyzer 0 % (0-5); Platelet Count 303 K/mm3 (150-450); RBC Distribution Width CV 16.0 % (11.6-14.6); RBC Distribution Width SD 49.9 fl (35.1-43.9); Red Blood Count 4.79 M/mm3 (4.2-5.4); White Blood Count 7.8 K/mm3 (4.4-11.0)
[2025-04-01 14:33] LABS: AST(SGOT) 28 U/L (<=31); Alanine Aminotransfer ALT/SGPT 24 U/L (<=34); Albumin, Serum 4.4 g/dL (3.4-4.8); Alkaline Phosphatase 93 U/L (35-104); Anion Gap 14 (5-15); BUN 14 mg/dL (4-19); BUN/Creat Ratio 19.7 RATIO (10-20); Calcium,Total 8.9 mg/dL (7.6-11.0); Carbon Dioxide 26.8 mmol/L (21.0-32.0); Chloride 103 mmol/L (98-108); Cholesterol 126 mg/dL (<=200); Globulin 3.5 g/dL (2.2-4.2); Glucose 123 mg/dL (70-99); Low Density Lipoprotein Calc. 34 mg/dL; Potassium 4.1 mmol/L (3.3-5.1); Triglycerides 205 mg/dL; Very Low Density Lipoprotein 41 mg/dL (5-40); cholesterol:hdl ratio screen 2.47
[2025-04-01 21:21] LABS: Xtra Tube Kwok EXTRA TUBE
== END | disposition home or self-care (01) ==
LOC: POLAB3 13:18
PROVIDERS: PCP Family Medicine Geriatric Medicine; Visit Provider Family Medicine Geriatric Medicine
DX: E78.5 Hyperlipidemia, unspecified (principal); E11.42 Type 2 diabetes mellitus with diabetic polyneuropathy; I10 Essential (primary) hypertension
CPT/HCPCS: 36415; 80053; 80061; 83036; 84443; 85025

== ENCOUNTER → 2025-04-25 | Outpatient (CLI) | payer MEDICARE, MEDICAID, SELFPAY | END | disposition home or self-care (01) | LOC: LABSPEC 12:26 | PROVIDERS: PCP Family Medicine Geriatric Medicine; Visit Provider Family Medicine Geriatric Medicine | DX: R05.9 Cough, unspecified (principal); R68.83 Chills (without fever) | CPT/HCPCS: 87631 ==

== ENCOUNTER → 2025-05-20 | Outpatient (CLI) | payer MEDICARE, MEDICAID, SELFPAY | END | disposition home or self-care (01) | LOC: POLAB3 15:04 | PROVIDERS: PCP Family Medicine Geriatric Medicine; Visit Provider Family Medicine Geriatric Medicine | DX: R68.83 Chills (without fever) (principal) | CPT/HCPCS: 87631 ==

== ENCOUNTER → 2025-07-08 | Outpatient (CLI) | payer MEDICARE, MEDICAID, SELFPAY ==
[2025-07-08 13:24] LABS: Hematocrit 40.6 % (37-47); Hemoglobin 12.5 g/dL (12.0-15.0); Immature Granulocytes Count 0.020 X10^3/uL (0.0-0.0); Mean Corp Hgb Conc 30.8 g/dL (32-36); Mean Corpuscular Volume 88.5 fL (81-99); Mean Platelet Vol. 9.3 fl (6.2-12.0); NRBC Flagged by Analyzer 0 % (0-5); Platelet Count 260 K/mm3 (150-450); RBC Distribution Width CV 15.4 % (11.6-14.6); RBC Distribution Width SD 49.5 fl (35.1-43.9); Red Blood Count 4.59 M/mm3 (4.2-5.4); White Blood Count 5.9 K/mm3 (4.4-11.0)
[2025-07-08 14:16] LABS: AST(SGOT) 22 U/L (<=31); Alanine Aminotransfer ALT/SGPT 14 U/L (<=34); Albumin, Serum 4.3 g/dL (3.4-4.8); Alkaline Phosphatase 84 U/L (35-104); Anion Gap 9 (5-15); BUN 14 mg/dL (4-19); BUN/Creat Ratio 18.7 RATIO (10-20); Calcium,Total 8.8 mg/dL (7.6-11.0); Carbon Dioxide 27.9 mmol/L (21.0-32.0); Chloride 104 mmol/L (98-108); Cholesterol 113 mg/dL (<=200); Globulin 3.3 g/dL (2.2-4.2); Glucose 184 mg/dL (70-99); Low Density Lipoprotein Calc. 34 mg/dL; Potassium 4.3 mmol/L (3.3-5.1); Triglycerides 234 mg/dL; Very Low Density Lipoprotein 47 mg/dL (5-40); cholesterol:hdl ratio screen 2.62
[2025-07-08 14:18] LABS: Creatinine, Urine (random) 62.90 mg/dL (28.00-217.00); Microalbumin,Random Urine 43.1 mg/L (<20 mg/L)
[2025-07-08 21:14] LABS: Xtra Tube Kwok EXTRA TUBE
== END | disposition home or self-care (01) ==
LOC: POLAB3 13:13
PROVIDERS: PCP Family Medicine Geriatric Medicine; Visit Provider Family Medicine Geriatric Medicine
DX: E78.5 Hyperlipidemia, unspecified (principal); E11.65 Type 2 diabetes mellitus with hyperglycemia; I10 Essential (primary) hypertension; E03.9 Hypothyroidism, unspecified; E24.9 Cushing's syndrome, unspecified
CPT/HCPCS: 36415; 80053; 80061; 82043; 82570; 83036; 84443; 85025

== ENCOUNTER → 2025-09-08 | Outpatient (CLI) | payer MEDICARE, MEDICAID, SELFPAY ==
--- OUTSIDE RECORDS SUMMARY | 2025-09-08 20:16 | XMS RPT_ITS | CCD ---
Author Organization [facility] Care Team Providers Care Senior Project Leader/Team Lead Name Role Phone Zack Borges Unavailable Unavailable Primary Care Provider Dr. Gulshan Urban Chi Primary Care Provider Sharath, Dr. Gulshan Hay Referring Provider 1([facility])[phone] Clyde Almanza Attending Provider 1([facility])342 Dr. Tylor Collins Attending Provider 1([facility]) 342 SHARATH VEGA, DR REID Primary Care Physician Sharath, Dr. Gulshan Hay Primary Care Provider Sharath, Dr. Gulshan Hay Referring Provider 1([facility])[phone] Clyde Almanza Attending Provider Sharath, Dr. Gulshan Hay Primary Care Provider 1([facility])[phone] Sharath, Dr. Gulshan Hay Referring Provider 1([facility])[phone] Clyde Almanza Attending Provider 1([facility])342 Dr. Vince Reno Attending Provider 1([facility])-[phone] Sharath, Dr. Gulshan Hay Primary Care Provider Sharath, Dr. Gulshan Hay Referring Provider Dr. Clyde Almanza Attending Provider 1([facility]) -[phone] Sharath, Dr. Gulshan Hay Primary Care Provider 1([facility])[phone] Sharath, Dr. Gulshan Hay Referring Provider Dr. Clyde Almanza Attending Provider 1([facility])342 Dr. Vince Reno Attending Provider 1([facility])-[phone] Clyde Almanza Referring Provider Sharath, Dr. Gulshan Hay Primary Care Provider Sharath, Dr. Gulshan Hay Referring Provider Dr. Clyde Almanza Attending Provider Rowdy, Dr. Clarke Attending Provider Dr. Clyde Alamnza Referring Provider Sharath, Dr. Gulshan Hay Primary Care Provider Sharath, Dr. Gulshan Hay Referring Provider Roni, AMEE Fagan Attending Provider Dr. Aditya Xiao Emergency Provider Dr. Macario Tyler Admit Provider Dr. Macario Tyler Attending Provider Dr. Macario Tyler Other Provider Dr. Tereso aNvarro Other Provider Dr. Victorino Mixon Other Provider Dr. Pérez Araya Attending Provider Dr. Pérez Araya Other Provider DINO Hughes Attending Provider Sharath, Dr. Gulshan Hay Primary Care Provider Dr. Aditya Xiao Emergency Provider Dr. Macario Tyler Admit Provider Dr. Macario Tyler Attending Provider Dr. Macario Tyler Other Provider Dr. Tereso Navarro Other Provider Dr. Victorino Mixon Other Provider Dr. Pérez Araya Other Provider Sharath, Dr. Gulshan Hay Referring Provider Dr. Adolph Leigh Attending Provider Roni, FIELD CLERK-C Gracia Attending Provider Sharath VEGA, Dr. Gulshan Hay Primary Care Provider Russ VEGA, Dr. Gleason Other Provider Emily FIELD CLERK-C, Simran E Attending Provider Emily FIELD CLERK-C, Simran E Referring Provider Russ VEGA, Dr. Gleason Referring Provider Sweta VEGA, Dr. Brambila Attending Provider Lester VEGA, Dr. Eros Dorantes Attending Provider Russ VEGA, Dr. Gleason Attending Provider Russ VEGA, Dr. Gleason Admit Provider Sharath VEGA, Dr. Gulshan Hay Attending Provider Sharath VEGA, Dr. Gulshan Hay Referring Provider Sharath VEGA, Dr. Gulshan Hay Primary Care Provider Russ VEGA, Dr. Gleason Attending Provider Russ VEGA, Dr. Gleason Referring Provider Russ VEGA, Dr. Gleason Other Provider Sharath VEGA, Dr. Gulshan Hay Attending Provider Sharath VEGA, Dr. Gulshan Hay Referring Provider Sharath VEGA, Dr. Gulshan Hay Primary Care Provider Sharath VEGA, Dr. Gulshan Hay Attending Provider Sharath VEGA, Dr. Gulshan Hay Primary Care Provider Sharath VEGA, Dr. Gulshan Hay Attending Provider Sharath VEGA, Dr. Gulshan Hay Referring Provider Sharath VEGA, Dr. Gulshan Hay Primary Care Physician Sharath VEGA, Dr. Gulshan Hay Attending Physician Sharath, Gulshan Chi Primary Care Unavailable Sharath, Gulshan Chi Attending Unavailable Emily FIELD CLERK, Simran E Referring Unavailabl e Emily FIELD CLERK, Simran E Attending Unavailabl e Siska, Victorino Consulting Unavailable Sharath, Gulshan Chi Primary Care Unavailable Sharath, Gulshan Chi Primary Care Unavailable Sharath, Gulshan Chi Referring Unavailable Sharath, Gulshan Chi Attending Unavailable Sharath, Gulshan Chi Primary Care Unavailable Sharath, Gulshan Chi Attending Unavailable Siska, Victorino Referring Unavailable Siska, Victorino Attending Unavailable Siska, Victorino Consulting Unavailable Sharath, Gulshan Chi Primary Care Unavailable Emily FIELD CLERK, Simran E Referring Unavailabl e Siska, Victorino Consulting Unavailable Emily FIELD CLERK, Simran E Attending Unavailabl e Sharath, Gulshan Chi Primary Care Unavailable Siska, Victorino Referring Unavailable Oleghe Efewongbe Attending Unavailable Siska, Victorino Consulting Unavailable Sharath, Gulshan Chi Primary Care Unavailable Emily FIELD CLERK, Simran E Attending Unavailabl e Emily FIELD CLERK, Simran E Referring Unavailabl e Siska, Victorino Consulting Unavailable Sharath, Gulshan Chi Primary Care Unavailable Siska, Victorino Referring Unavailable Oleghe, Efewongbe Attending Unavailable Siska, Victorino Consulting Unavailable Sharath, Gulshan Chi Primary Care Unavailable Sharath, Gulshan Chi Primary Care Unavailable Sharath, Gulshan Chi Attending Unavailable Siska, Victorino Attending Unavailable Sharath, Gulshan Chi Primary Care Unavailable Siska, Victorino Referring Unavailable Siska, Victorino Referring Unavailable Siska, Victorino Attending Unavailable Sharath, Gulshan Chi Primary Care Unavailable Siska, Victorino Referring Unavailable Oleghe, Efewongbe Attending Unavailable Siska, Victorino Consulting Unavailable Sharath, Gulshan Chi Primary Care Unavailable Siska, Victorino Consulting Unavailable Siska, Victorino Attending Unavailable Sharath, Gulshan Chi Primary Care Unavailable Siska, Victorino Referring Unavailable Siska, Victorino Referring Unavailable Siska, Victorino Attending Unavailable Siska, Vicotrino Consulting Unavailable Sharath, Gulshan Chi Primary Care Unavailable Siska, Victorino Attending Unavailable Siska, Victorino Referring Unavailable Sharath, Gulshan Chi Primary Care Unavailable Siska, Victorino Consulting Unavailable Emily FIELD CLERK, Simran E Attending Unavailabl e Emily FIELD CLERK, Simran E Referring Unavailabl e Sharath, Gulshan Chi Primary Care Unavailable Siska, Victorino Consulting Unavailable Siska, Victorino Referring Unavailable Siska, Victorino Consulting Unavailable Oleghe, Efewongbe Attending Unavailable Sharath, Gulshan Chi Primary Care Unavailable Emily FIELD CLERK, Simran E Attending Unavailabl e Emily FIELD CLERK, Simran E Referring Unavailabl e Siska, Victorino Consulting Unavailable Sharath, Gulshan Chi Primary Care Unavailable Siska, Victorino Referring Unavailable Siska, Victorino Attending Unavailable Sharath, Gulshan Chi Primary Care Unavailable Siska, Victorino Referring Unavailable Siska, Victorino Attending Unavailable Sharath, Gulshan Chi Primary Care Unavailable Siska, Victorino Admitting Unavailable Siska, Victorino Referring Unavailable Siska, Victorino Attending Unavailable Sharath, Gulshan Chi Primary Care Unavailable Emily FIELD CLERK, Simran E Referring Unavailabl e Emily FIELD CLERK, Simran E Attending Unavailabl e Siska, Victorino Consulting Unavailable Sharath, Gulshan Chi Primary Care Unavailable Emily FIELD CLERK, Simran E Referring Unavailabl e Emily FIELD CLERK, Simran E Attending Unavailabl e Sharath, Gulshan Chi Primary Care Unavailable Siska, Victorino Consulting Unavailable Siska, Victorino Attending Unavailable Siska, Victorino Referring Unavailable Siska, Victorino Consulting Unavailable Sharath, Gulshan Chi Primary Care Unavailable Siska, Victorino Attending Unavailable Siska, Victorino Referring Unavailable Sharath, Gulshan Chi Primary Care Unavailable Siska, Victorino Consulting Unavailable Siska, Victorino Admitting Unavailable Siska, Victorino Referring Unavailable Siska, Victorino Attending Unavailable Sharath, Gulshan Chi Primary Care Unavailable Siska, Victorino Consulting Unavailable Emily FIELD CLERK, Simran E Attending Unavailabl e Emily FIELD CLERK, Simran E Referring Unavailabl e Siska, Victorino Consulting Unavailable Sharath, Gulshan Chi Primary Care Unavailable Sharath, Gulshan Chi Primary Care Unavailable Sharath, Gulshan Chi Attending Unavailable Siska, Victorino Referring Unavailable Siska, Victorino Attending Unavailable Sharath, Gulshan Chi Primary Care Unavailable Sharath, Gulshan Chi Primary Care Unavailable Sharath, Gulshan Chi Attending Unavailable Sharaht, Gulshan Chi Primary Care Unavailable Sharath, Gulshan Chi Referring Unavailable Sharath, Gulshan Chi Attending Unavailable Siska, Victorino Attending Unavailable Siska, Victorino Referring Unavailable Sharath, Gulshan Chi Primary Care Unavailable Sharath, Gulshan Chi Attending Unavailable Sharath, Gulshan Chi Primary Care Unavailable Sharath, Gulshan Chi Primary Care Unavailable Sharath, Gulshan Chi Attending Unavailable Sharath, Gulshan Chi Primary Care Unavailable Sharath, Gulshan Chi Attending Unavailable Sharath, Gulshan Chi Primary Care Unavailable Sharath, Gulshan Chi Attending Unavailable Sharath, Gulshan Chi Primary Care Unavailable Sharath, Gulshan Chi Attending Unavailable Sharath, Gulshan Chi Primary Care Unavailable Sharath, Gulshan Chi Referring Unavailable Sharath, Gulshan Chi Attending Unavailable Sharath, Gulshan Chi Primary Care Unavailable Sharath, Gulshan Chi Referring Unavailable Sharath, Gulshan Chi Attending Unavailable Allergies Allergy Classification Reported Allergen(s) Allergy Type Date of Onset Reaction(s) Facility (20 sources) Latex; Translations: [latex] drug allergy 05-22-[address] [facility] Work Phone: (15 sources) FLEA MEDICINE drug allergy 06-30-20 21 Anaphylaxis, Diarrhea [facility] Work Phone: (2 sources) TETANUS SHOT drug allergy 05-22-[address] [facility] Work Phone: (2 sources) Tetanus vaccine Propensity to adverse reactions to drug 06-17-20 20 Shortness Of Breath [place] (2 sources) Other Propensity to adverse reactions 06-17-20 20 Shortness Of Breath [place] (20 sources) tetanus and diphtheria toxoids; Translations: [tetanus and diphtheria toxoids] Allergy to substance 08-13-20 Anaphylaxis [facility] (1 source) tetanus toxoid vaccine, inactivated; Translations: [tetanus toxoid] Drug Allergy difficulty breathing, diarrhea, vomiting [facility] (14 sources) Piperacillin Drug Allergy 03-01-20 Anaphylaxis [facility] (14 sources) tazobactam Drug Allergy 03-01-20 23 Anaphylaxis [facility] (13 sources) Sulfamethoxazole Drug Allergy 03-01-20 23 Anaphylaxis [facility] (13 sources) Trimethoprim Drug Allergy 03-01-20 Anaphylaxis [facility] (11 sources) Pyrethrins Drug Allergy 05-29-20 Anaphylaxis [facility] Comment on above: Flea medications (1 source) Piperacillin Drug Allergy 08-21-20 [facility] (1 source) Pyrethrins Drug Allergy 08-21-20 [facility] (1 source) Sulfamethoxazole Drug Allergy 08-21-20 [facility] (1 source) tazobactam Drug Allergy 08-21-20 [facility] (1 source) Trimethoprim Drug Allergy 08-21-20 [facility] Medications Current Medications Medication Drug Class(es) Dates Sig (Normalized) Sig (Original) acetaminophen 500 mg oral tablet (20 sources) Start: 04-02-2024 take 2 tablets by mouth every six hours as needed for pain Start: 03-15-2023 End: 01-19-2024 take 2 tablets by mouth every eight hours Acetaminophen 500 mg Tablet Discontinued 1000 mg PO EVERY 8 HOURS 0 0 March 15, 2023 12:00am January 19, 2024 3:03pm Start: 03-15-2023 take 1000 mg by mout h every eight hours Acetaminophen Active 1000 MG PO EVERY 8 HOURS 0 March 15, 2023 12:00am Start: 06-18-2020 acetaminophen (TYLENOL) tablet 650 mg Start: 11-13-2019 End: 07-21-2020 take 2 tablets by mouth every six hours as needed Acetaminophen 500 MG tablet Discontinued 1000 mg PO EVERY 6 HOURS NEEDED 100 1 November 13, 2019 1:15pm July 21, 2020 10:25pm Start: 11-13-2019 End: 07-21-2020 take 1000 mg by mouth every six hours as needed Acetaminophen Discontinued 1000 MG PO EVERY 6 HOURS NEEDED 100 November 13, 2019 1:15pm July 21, 2020 10:25pm Start: 04-21-2017 End: 11-13-2019 Acetaminophen 325 MG tablet Discontinued 650 mg PO EVERY 6 HOURS NEEDED as needed for Mild Pain (scale 0-3)/T>100.7 0 April 21, 2017 12:00am November 13, 2019 1:17pm Start: 04-21-2017 End: 11-13-2019 take 650 mg by mouth every six hours as needed Acetaminophen Discontinued 650 MG PO EVERY 6 HOURS NEEDED April 21, 2017 12:00am November 13, 2019 1:17pm ACETAMINOPHEN ER 650 MG CR-TABS q 6 hrs prn ACETAMINOPHEN [id number] Elsie Palomares LPN [id number] 200 actuat albuter ol 0.09 mg/actuat metered dose inhaler (20 sources) beta2-Adrenergic Agonist Start: 01-19-2024 Start: 08-26-2022 End: 03-15-2023 Albuterol Sulfate (Proair Hf a) 90 mcg/actuation Hfa Aerosol Inhaler Discontinued 1 NMA INHALATION EVERY 6 HOURS as needed for SHORTNESS OF BREATH August 26, 2022 1:00am March 15, 2023 8:12pm Start: 08-26-2022 End: 03-15-2023 Albuterol Sulfate (Proair Hf a) 90 mcg/actuation Hfa Aerosol Inhaler Discontinued 1 INH INHALATION EVERY 6 HOURS August 26, 2022 1:00am March 15, 2023 8:12pm Start: 10-07-2016 End: 07-21-2020 Albuterol Sulfate 1 PUFF inh aler Discontinued 2 NMA INHALATION 4 TIMES DAILY NEEDED as needed for Dyspnea 1 0 October 07, 2016 5:02pm July 21, 2020 10:24pm Start: 10-07-2016 End: 07-21-2020 take 1 puff(s) by inhalation four times daily as needed Albuterol Sulfate Discontinued 2 PUFF INHALATION 4 TIMES DAILY NEEDED October 07, 2016 5:02pm July 21, 2020 10:24pm Start: 11-13-2015 End: 07-21-2020 take 2.5 mg by inhalation every six hours as needed Albuterol Sulfate 2.5 MG/3 ML solution for nebulization Discontinued 2.5 mg INHALATION EVERY 6 HOURS as needed for Shortness Of Breath November 13, 2015 1:00am July 21, 2020 10:26pm Start: 11-13-2015 End: 10-07-2016 Albuterol Sulfate (Proair Hf a) 1 PUFF inhaler Discontinued 2 NMA INHALATION TWICE A DAY November 13, 2015 1:00am October 07, 2016 5:02pm Start: 11-13-2015 End: 10-07-2016 take 1 puff(s) by inhalation twice daily Albuterol Sulfate (Proair Hfa) 1 PUFF inhaler Discontinued 2 PUFF INHALATION TWICE A DAY November 13, 2015 1:00am October 07, 2016 5:02pm Start: 01-02-2015 albuterol 2.5 mg/3 mL (0.083%) inhalation solution Dose : 2.5 mg = 3 mL, Inhalation, q6hRT, PRN Wheezing, 0 Refill(s) Start Date: 01/02/15 Status: Ordered Start: 12-19-2014 take 1 dose by inhal ation every six hours as needed albuterol 2.5 mg/3 mL (0.083%) inhalation solution Dose : 2.5 mg = 3 mL, Inhalation, q6h, PRN for wheezing, 0 Refill(s) Start Date: 12/19/14 Status: Ordered PROAIR HFA 108 ( 90 Base) MCG/ACT AERS 2 puffs 4 x q d prn ALBUTEROL SULFATE [id number] Elsie Gertrudis Palomares [employer] End: 04-25-2016 PROAIR HFA 108 (90 Base) MCG /ACT AERS as needed ALBUTEROL SULFATE [id number] Zack Borges PROAIR HFA 108 ( 90 Base) MCG/ACT AERS as needed ALBUTEROL SULFATE [id number] Lucho Gertrudis Lee calcium carbonate 1250 mg oral tablet (6 sources) take 1 tablet by sue th twice daily calcium carbonate (OSCAL) 500 MG TABS tablet Take 500 mg by mouth 2 times daily 0 Active End: 04-25-2016 take 1 tablet by mouth once daily OYST-JORDAN 500 MG TABS One tablet by mouth daily OYSTER SHELL [id number] Zack Borges celecoxib 200 mg oral capsule (20 sources) Nonsteroidal Anti-inflammatory Drug Start: 02-21-2024 take 1 capsule by mouth once daily Start: 10-18-2018 End: 03-15-2023 take 1 capsule by mouth once daily Celecoxib 200 mg capsule Discontinued 20 0 mg PO DAILY October 18, 2018 1:00am March 15, 2023 8:13pm ARTHRITIS/INFLAMMATION cetirizine hydrochloride 10 mg oral tablet (1 source) Histamine-1 Receptor Antagonist Start: 06-18-2020 take 10 mg by mouth once daily 10 mg, Oral, DAILY, First dose on Mary 06/18/20 at 0900 Substituted for Loratadine (CLARITIN). cholecalciferol 1000 unt oral capsule (2 sources) Vitamin D vitamin D 25 MCG (1000 UT) CAPS Take 1,000 Units by mouth daily 0 Active dapagliflozin 10 mg oral tablet (14 sources) Sodium-Glucose Cotransporter 2 Inhibitor Start: 03-01-2023 take 1 tablet by mouth once daily doxepin hydrochloride 25 mg oral capsule (20 sources) Tricyclic Antidepressant Start: 02-21-2024 take 1 capsule by mouth at bedtime Start: 07-10-2019 End: 07-21-2020 take 1 capsule by mouth at bedtime Doxepin 25 MG capsule Discontinued 25 mg PO AT BEDTIME October 29, 2019 1:00am July 21, 2020 10:24pm sleep fluticasone propionate 0.05 mg/actuat metered dose nasal spray (1 source) Corticosteroid Start: 07-10-2019 take 1 dose nasal route twice daily fluticasone proprionate NASAL 50 mcg/ spray Dose = 2 spray(s), Nostril, each, BID, 0 Refill(s) Start Date: 07/10/19 Status: Ordered gabapentin (20 sources) Anti-epileptic Agent Start: 07-10-2016 take 1 dose by mouth three times daily gabapentin Dose : 1,200 mg =, Oral, TID Start Date: 07/10/16 Status: Ordered Start: 05-27-2016 End: 10-19-2016 GABAPENTIN 600 MG TABS twice daily GABAPENTIN [id number] Elsie Chakraborty Jelani GONZALEZ Start: 11-13-2015 End: 10-16-2019 take 1 tablet by mouth three times daily Gabapentin 600 MG tablet Discontinued 600 mg PO THREE TIMES A DAY November 13, 2015 1:00am October 16, 2019 12:44pm End: 04-25-2016 GABAPENTIN 600 MG TABS 2 tab s three times daily GABAPENTIN [id number] Lucho Lee glimepiride 4 mg oral tablet (20 sources) Sulfonylurea Start: 04-10-2023 take 1 tablet by sue th once daily Start: 03-01-2023 End: 03-15-2023 take 1 tablet by mouth twice daily Glimepiride 4 mg tablet Discontinued 4 mg PO TWICE A DAY March 01, 2023 12:00am March 15, 2023 8:13pm DIABETES glucagon (rdna) 1 mg injection (1 source) Antihypoglycemic Agent Start: 06-18-2020 take 1 mL intravenous route every hour 1 mg, Intramuscular, PRN, Low blood sugar, Blood glucose less than 70 mg/dL and patient NOT ALERT or NPO and does not have IV access., Starting Mary 06/18/20 at 0106 After administration, attempt intravenous access and start D5W at 100 mL/hr. Repeat blood glucose in 15 minutes x2 and notify provider. glucose 0.417 mg/mg oral gel (3 sources) Start: 06-18-2020 15 g, Oral, PRN, Low blood sugar, Starting Mary 06/18/20 at 0106 If blood glucose less than 50 mg/dL and patient ALERT and TOLERATING PO, give 2 tubes glucose gel. If blood glucose less than 70 mg/dL and patient ALERT and TOLERATING PO, give 1 tube glucose gel. Repeat blood glucose in 15 minutes. If blood glucose is less than 70 mg/dL, repeat treatment and recheck blood glucose in 15 minutes x2 and notify provider. Start: 06-18-2020 12.5 g, Intrav enous, PRN, Low blood sugar, Blood glucose less than 70 mg/dL and patient NOT ALERT or NPO., Starting Mary 06/18/20 at 0106 If patient does not respond within 5 minutes, repeat dose x1. Start D5W at 100 mL/hour until ordering provider can be reached. Repeat blood glucose in 15 minutes. If blood glucose is less than 70 mg/dL, repeat treatment and recheck blood glucose in 15 minutes x2. If using Glucostabilizer, dose as instructed per system. Start: 06-18-2020 100 mL/hr, Int ravenous, at 100 mL/hr, PRN, Low blood sugar, Starting Mary 06/18/20 at 0106 Start infusion following administration of dextrose 50% or glucagon. insulin glargine 100 unt/ml injectable solution (20 sources) Insulin Analog Start: 06-18-2020 inject 75 [IU] by subcutaneous injection once daily 75 Units, Subcutaneous, DAILY, First dose on Mary 06/18/20 at 0900 Start: 10-29-2019 End: 06-30-2021 inject 75 [IU] by subcutaneous injection twice daily Insulin Glargine 100 UNIT/ML insulin pen Discontinued 75 U SQ TWICE A DAY October 29, 2019 1:00am June 30, 2021 1:38pm diabetes Start: 11-13-2015 End: 11-16-2015 Insulin Glargine (Lantus (Bk c)) 100 UNITS/ML Pen Discontinued 80 U SC TWICE A DAY November 13, 2015 1:00am November 16, 2015 3:32pm Start: 11-13-2015 End: 11-16-2015 Insulin Glargine (Lantus (Bk c)) 100 UNITS/ML Pen Discontinued 80 UNITS SC TWICE A DAY November 13, 2015 1:00am November 16, 2015 3:32pm Start: 12-19-2014 Lantus Solosta r Pen 100 units/mL 3 mL Pen (NF) Dose : 80 unit(s) =, Subcutaneous, BIDAC, 0 Refill(s) Start Date: 12/19/14 Status: Ordered Start: 09-19-2014 End: 09-27-2014 Insulin Glargine (Lantus Kelsea ostar U-100 Insulin) 100 UNITS/ML Pen Discontinued 70 U SC TWICE A DAY September 19, 2014 7:28pm September 27, 2014 12:53pm Start: 09-24-2013 End: 09-06-2014 Insulin Glargine (Lantus Kelsea ostar Pen) 100 UNITS/ML Pen Discontinued 70 U SC TWICE A DAY September 24, 2013 1:00am September 06, 2014 5:15pm Start: 09-24-2013 End: 09-06-2014 Insulin Glargine (Lantus Kelsea ostar Pen) 100 UNITS/ML Pen Discontinued 70 UNITS SC TWICE A DAY September 24, 2013 1:00am September 06, 2014 5:15pm insulin glargine (BASAGLAR KWIKPEN) 100 UNIT/ML injection pen Inject 75 Units into the skin daily 0 Active insulin lispro 100 unt/ml injectable solution (2 sources) Insulin Analog Start: 06-18-2020 0-6 Units, Sub cutaneous, 3 TIMES DAILY WITH MEALS, First dose on Mary 06/18/20 at 0800 Low Dose Correction Algorithm Glucose: Dose: 70-139 No Insulin 140-199 1 Unit 200-249 2 Units 250-299 3 Units 300-349 4 Units 350-399 5 Units 400 and above 6 Units Start: 06-18-2020 0-3 Units, Subcutaneous, NIG HTLY, First dose on Mary 06/18/20 at 0115 If continuous tube feedings/TPN/NPO, give correction dose based on result, no reduction in dose. If eating or bolus tube feeding: Low Dose Bedtime Correction Algorithm Glucose: Dose: 70- 139 No Insulin 140-249 1 Unit 250-349 2 Units 350 and above 3 Units 3 ml insulin aspart, human 1 00 unt/ml pen injector (20 sources) Insulin Analogue Start: 05-29-2023 Start: 05-06-2017 End: 10-18-2018 Insulin Aspart U-100 100 UNI TS/ML insulin pen Discontinued 0 U SC AC, HS, & 0200 Protocol: - Use for Total Daily Dose of Insulin 37-55 units- Obsese, infected, or steroid patientsMEDIUM DOSING ALGORITHIM Condition: 150-189 mg/dl = 1 unit Condition: 190-229 mg/dl = 2 units Condition: 230-269 mg/dl = 3 units Condition: 270-309 mg/dl = 4 units Condition: 310-349 mg/dl = 5 units Condition: 350-399 mg/dl = 6 units Condition: 400-449 mg/dl = 7 units Condition: Greater than 449 call physician 0 0 May 06, 2017 12:00am October 18, 2018 11:34am Please contact the information source for Protocol details. Start: 05-06-2017 End: 10-18-2018 Insulin Aspart U-100 100 UNI TS/ML insulin pen Discontinued 0 U SC AC, HS, & 0200 0 0 May 06, 2017 12:00am October 18, 2018 11:34am Please contact the information source for Protocol details. Start: 05-06-2017 End: 10-18-2018 Insulin Aspart U-100 Discont inued 0 UNITS SC AC, HS, & 0200 0 May 06, 2017 12:00am October 18, 2018 11:34am Start: 05-05-2016 End: 10-07-2016 Insulin Aspart U-100 (Novolo g Flexpen U-100 Insulin) 100 UNITS/ML Flexpen Discontinued 0 U SC BEFORE MEALS AND AT BEDTIME 0 0 May 05, 2016 12:00am October 07, 2016 4:56pm Start: 05-05-2016 End: 10-04-2016 Insulin Aspart U-100 (Novolo g Flexpen U-100 Insulin) 100 UNITS/ML Flexpen Discontinued 4 U SC THREE TIMES DAILY BEFORE MEALS 0 0 May 05, 2016 12:00am October 04, 2016 7:18pm Start: 04-25-2016 NOVOLOG 100 UN IT/ML SOLJunior INSULIN ASPART [id number] Zack Borges Start: 11-16-2015 End: 05-05-2016 Insulin Aspart U-100 (Novolo g Flexpen U-100 Insulin) 100 UNITS/ML Flexpen Discontinued 1 - 7 U SC BEFORE MEALS AND AT BEDTIME 1 0 November 16, 2015 1:00am May 05, 2016 3:53pm insulin sliding scale Sliding Scale Insulin Medium Dosin-189 BS=1 u, 190-229 BS=2 u, 230-269 BS=3 u, 270-309 BS=4 u, 310-349 BS=5 u, 350-399 BS=6 u, 400 BS= 7 u Start: 11-16-2015 End: 05-05-2016 Insulin Aspart U-100 (Novolo g Flexpen U-100 Insulin) 100 UNITS/ML Flexpen Discontinued 10 U SC THREE TIMES DAILY BEFORE MEALS 1 0 November 16, 2015 1:00am May 05, 2016 3:53pm Start: 11-13-2015 End: 11-16-2015 Insulin Aspart U-100 (Novolo g Flexpen (Bkc)) 100 UNITS/ML Flexpen Discontinued 3 - 9 U SC 3 TIMES DAILY WITH MEALS November 13, 2015 1:00am November 16, 2015 3:32pm Start: 11-13-2015 End: 11-16-2015 Insulin Aspart U-100 (Novolo g Flexpen (Bkc)) 100 UNITS/ML Flexpen Discontinued 15 U SC WITH DINNER November 13, 2015 1:00am November 16, 2015 3:32pm Start: 11-13-2015 End: 11-16-2015 Insulin Aspart U-100 (Novolo g Flexpen (Bkc)) 100 UNITS/ML Flexpen Discontinued 10 U SC WITH BREAKFAST November 13, 2015 1:00am November 16, 2015 3:32pm Start: 12-19-2014 inject 1 dose by sub cutaneous injection once daily in the morning NovoLOG Dose : 10 unit(s) =, Subcutaneous, qAM, 0 Refill(s) Start Date: 12/19/14 Status: Ordered Start: 12-19-2014 NovoLOG Dose : 15 unit(s) =, Subcutaneous, 12 (noon), 0 Refill(s) Start Date: 12/19/14 Status: Ordered Start: 12-19-2014 inject 1 dose by sub cutaneous injection once daily in the evening NovoLOG Dose : 15 unit(s) =, Subcutaneous, qPM, 0 Refill(s) Start Date: 12/19/14 Status: Ordered Start: 09-19-2014 End: 09-27-2014 Insulin Aspart U-100 (Novolo g Flexpen) 100 UNITS/ML Flexpen Discontinued 15 U SC WITH DINNER September 19, 2014 1:00am September 27, 2014 12:53pm Start: 09-19-2014 End: 09-27-2014 Insulin Aspart U-100 (Novolo g Flexpen) 100 UNITS/ML Flexpen Discontinued 10 U SC WITH BREAKFAST September 19, 2014 1:00am September 27, 2014 12:53pm Start: 08-29-2013 End: 09-06-2014 Insulin Aspart U-100 (Novolo g Flexpen U-100 Insulin) 100 UNITS/ML Flexpen Discontinued 0 U SC 3 TIMES DAILY WITH MEALS 09 13August 29, 2013 1:00am September 06, 2014 5:15pm 150-200 2 units; 201-250: 4; 251-300: 6; 301-350:8; 351-300: 10 NOVOLOG 100 UNIT /ML SOLN 10 u sc tidac INSULIN ASPART [id number] Elsie Palomares LPN End: 04-25-2016 NOVOLOG SOLN twice daily INSULIN ASPART SOLN [id number] Zack Borges NOVOLOG SOLN twi ce daily INSULIN ASPART SOLN [id number] Lucho Lee magnesium oxide 400 mg oral tablet (20 sources) Start: 06-19-2020 take 1 tablet by mouth once daily magnesium oxide (MAG-OX) 400 (240 Mg) MG tablet Take 1 tablet by mouth daily 30 tablet 1 06/19/2020 Active Start: 11-13-2019 End: 12-13-2019 take 1 tablet by mouth once daily Magnesium Oxide 400 MG tablet Discontinued 400 mg PO DAILY 30 30 0 November 13, 2019 1:00am December 12, 2019 12:00am December 13, 2019 12:02am metFORMIN hydrochloride 500 mg oral tablet (20 sources) Biguanide Start: 06-18-2020 take 1000 mg by mouth twice daily at mealtime 1,000 mg, Oral, 2 TIMES DAILY WITH MEALS, First dose on Mary 06/18/20 at 0800 Start: 10-18-2018 End: 03-15-2023 take 1 tablet by mouth twice daily Metformin 1,000 mg tablet Discontinued 1000 mg PO TWICE A DAY October 18, 2018 1:00am March 15, 2023 8:13pm DIABETES Start: 05-27-2016 End: 10-19-2016 METFORMIN HCL 1000 MG TABS . 11 METFORMIN HCL [id number] Louie Lynn Pierce ELY Start: 06-25-2015 End: 10-07-2016 take 1 tablet by mouth twice daily at mealtime Metformin 1,000 MG tablet Discontinued 1000 mg PO TWICE DAILY WITH MEALS November 13, 2015 1:00am October 07, 2016 4:54pm Start: 07-08-2013 End: 08-29-2013 take 1 tablet by mouth twice daily Metformin 1,000 MG tablet Discontinued 1000 mg PO TWICE A DAY July 08, 2013 12:00am August 29, 2013 2:27pm 24 hr metoprolol succinate 50 mg extended release oral tablet (20 sources) beta-Adrenergic Zak Start: 05-22-2024 take 1 tablet by mouth once daily Start: 07-21-2020 End: 05-22-2024 take 1 tablet by mouth once daily Metoprolol Succinate 200 mg tablet extended release 24 hr Discontinued 200 mg PO DAILY July 21, 2020 1:00am May 22, 2024 4:13pm BLOOD PRESSURE Start: 06-18-2020 take 200 mg by mouth once kulwant y 200 mg, Oral, DAILY, First dose on Mary 06/18/20 at 0900 Start: 06-17-2020 5 mg, Intraven ous, EVERY 5 MIN PRN, Tachycardia, Administer for sustained HR >110bpm for duration >20min, Starting Mary 06/18/20 at 0106, For 3 doses Start: 10-18-2018 End: 07-21-2020 take 1 capsule by mouth once daily Metoprolol Succinate 200 mg capsule,sprinkle,ER 24hr Discontinued 200 mg PO DAILY October 18, 2018 1:00am July 21, 2020 10:22pm bp Start: 10-04-2016 End: 10-18-2018 take 1 tablet by mouth once daily Metoprolol Succinate 200 MG tablet extended release 24 hr Discontinued 200 mg PO DAILY October 04, 2016 1:00am October 18, 2018 11:34am Start: 12-19-2014 End: 05-05-2016 take 1 tablet by mouth once daily Metoprolol Succinate 200 MG tablet Discontinued 200 mg PO DAILY November 13, 2015 1:00am May 05, 2016 3:54pm take 2 tablets by mo [facility] once daily metoprolol (LOPRESSOR) 100 MG tablet Take 200 mg by mouth daily 0 Active montelukast 10 mg oral tablet (20 sources) Leukotriene Receptor Antagonist Start: 02-21-2024 take 1 tablet by mouth once daily Start: 10-18-2018 End: 03-15-2023 take 1 tablet by mouth at bedtime Montelukast 10 mg tablet Discontinued 10 mg PO AT BEDTIME October 18, 2018 1:00am March 15, 2023 8:14pm ASTHMA/ALLERGIES Start: 12-19-2014 End: 04-25-2016 take 10 mg by mouth once daily 10 mg, Oral, DAILY, First dose on Mary 06/18/20 at 0900 oxyCODONE hydrochloride 5 mg oral tablet (20 sources) Opioid Agonist Start: 08-21-2024 take 1 tablet by mouth every six hours as needed for pain Start: 04-02-2024 End: 07-04-2024 take 1 tablet by mouth every four hours as needed for pain Oxycodone 5 mg Tablet Discontinued 5 mg PO EVERY 4 HOURS NEEDED as needed for Pain Score 6-10 Or Pre Pt/Ot 42 5 0 May 22, 2024 July 04, 2024 4:00pm 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 Intended supply: 3 days. Take lowest dose possible to manage pain 10 tablet 0 06/19/2020 06/22/2020 Active Start: 06-18-2020 oxyCODONE (JENNIFER ICODONE) immediate release tablet 10 mg Start: 11-25-2019 End: 01-25-2021 take 1-2 tablets by mouth every four hours as needed for pain Oxycodone 5 mg capsule Discontinued 5 mg PO Q4H as needed for pain 60 0 January 10, 2020 January 25, 2021 9:28am Other acute postprocedural pain 1-2 tabs every 4 hrs as needed for pain Start: 11-13-2019 End: 07-21-2020 take 5-10 mg by mouth every four hours as needed for pain Oxycodone 5 MG tablet Discontinued 5 - 10 mg PO EVERY 4 HOURS NEEDED as needed for Pain Score 4-10/10 60 0 November 13, 2019 July 21, 2020 10:23pm Other acute postprocedural pain Start: 10-04-2016 End: 10-07-2016 take 1 tablet by mouth every four hours as needed for pain Oxycodone 5 MG tablet Discontinued 5 mg PO EVERY 4 HOURS NEEDED as needed for Pain October 04, 2016 1:00am October 07, 2016 4:54pm Start: 11-16-2015 End: 03-31-2016 take 1 tablet by mouth every four hours as needed for pain Oxycodone 5 MG tablet Discontinued 5 mg PO EVERY 4 HOURS NEEDED as needed for Moderate Pain (pain scale 4-5) 20 0 November 16, 2015 1:00am March 31, 2016 11:19am Start: 09-06-2014 End: 09-27-2014 take 1 tablet by mouth every four hours as needed for pain Oxycodone 5 MG tablet Discontinued 5 mg PO EVERY 4 HOURS NEEDED as needed for Moderate Pain (pain scale 4-5) 30 0 September 06, 2014 1:00am September 27, 2014 12:57pm PARoxetine hydrochloride 20 mg oral tablet (20 sources) Serotonin Reuptake Inhibitor Start: 06-18-2020 take 40 mg by mouth once daily in the morning 40 mg, Oral, EVERY MORNING, First dose on Mary 06/18/20 at 0900 Start: 07-10-2019 take 1 tablet by mouth once da shaniqua perflutren lipid microspheres (DEFINITY) injection 1.65 mg (1 source) Start: 06-18-2020 End: 06-21-2020 perflutren lipid microspheres (DEFINITY) injection 1.65 mg polyethylene glycol [id number] [id number] mg powder for oral solution (1 source) Osmotic Laxative Start: 06-18-2020 17 g, Oral, D AILY PRN, Constipation, Starting Mary 06/18/20 at 0106 First line therapy for constipation microencapsulated potassium chloride 20 meq extended release oral tablet (20 sources) Start: 02-21-2024 Start: 03-15-2023 End: 02-21-2024 Potassium Chloride (Klor-Con M20) 20 mEq Tablet,Er Particles/Crystals Discontinued 20 meq PO TWICE DAILY WITH MEALS 60 30 0 March 15, 2023 12:00am February 21, 2024 7:23pm Start: 06-18-2020 take 1 tablet by [facility] once daily, then take 0.5 tablet by mouth, then take 0.5 tablet by mouth 20 mEq, Oral, DAILY, First dose on Mary 06/18/20 at 0900 Do not crush, chew, or suck on tablet. Tablet may also be broken in half and each half swallowed separately. Start: 10-29-2019 End: 03-15-2023 take 1 tablet by mouth once daily Potassium Chloride 20 MEQ tablet Discontinued 20 meq PO DAILY October 29, 2019 1:00am March 15, 2023 8:14pm SUPPLEMENT Start: 07-10-2019 potassium chlo ride 20 mEq oral tablet, extended release Dose : 20 mEq = 1 tab(s), Oral, BID, # 180 tab(s), 0 Refill(s) Start Date: 07/10/19 Status: Ordered pregabalin 50 mg oral capsule (20 sources) Start: 06-18-2020 take 150 mg by mouth three times daily 150 mg, Oral, 3 TIMES DAILY, First dose on Mary 06/18/20 at 0900 Start: 10-29-2019 take 1 capsule by mo [facility] three times daily Start: 04-25-2016 End: 10-19-2016 LYRICA 150 MG CAPS 5 PREGABALIN [id number] Zack Borges Start: 11-13-2015 End: 10-07-2016 take 1 capsule by mouth three times daily Pregabalin (Lyrica) 150 MG capsule Discontinued 150 mg PO THREE TIMES A DAY November 13, 2015 1:00am October 07, 2016 4:54pm Start: 12-19-2014 take 150 mg by mouth twice daily Pregabalin Active 150 MG PO TWICE A DAY October 29, 2019 12:00am Promethazine (1 source) Phenothiazine Start: 06-18-2020 promethazine (PHENERGAN) tablet 12.5 mg rosuvastatin calcium 40 mg oral tablet (20 sources) HMG-CoA Reductase Inhibitor Start: 08-26-2022 take 1 tablet by mouth once daily 3 ml sodium chloride 9 mg/ml injection (5 sources) Start: 06-18-2020 End: 06-21-2020 sodium chloride flush 0.9 % injection 10 mL Start: 06-18-2020 10 mL, Intrave nous, EVERY 12 HOURS SCHEDULED (2 times per day), First dose on Mary 06/18/20 at 0900 Start: 06-18-2020 Intravenous, a t 100 mL/hr, CONTINUOUS, Starting [facility] 06/18/20 at 0115 Start: 06-18-2020 take 10 mL intraveno us route once as needed 10 mL, Intravenous, PRN, Line Care, After every IV line use, Starting Mary 06/18/20 at 0106 Start: 06-17-2020 End: 06-17-2020 0.9 % sodium chloride bolus levothyroxine sodium 0.15 mg oral tablet (20 sources) l-Thyroxine Start: 02-21-2024 take 1 tablet by sue th once daily Start: 07-21-2020 End: 02-21-2024 take 1 tablet by mouth once daily Levothyroxine 175 mcg tablet Discontinued 175 ug PO DAILY July 21, 2020 1:00am February 21, 2024 7:21pm THYROID Start: 06-18-2020 take 175 ug by mouth once daily 175 mcg, Oral, DAILY, First dose on Mary 06/18/20 at 0700 Tube feeding (TF) interaction, obtain physician order to manage, recommend holding TF for 30 minutes before and after dose. Start: 10-18-2018 End: 07-21-2020 Levothyroxine (Levoxyl) 175 mcg tablet Discontinued 150 ug PO DAILY October 18, 2018 1:00am July 21, 2020 10:22pm thyroid Start: 10-07-2016 End: 10-18-2018 take 1 tablet by mouth once daily Levothyroxine 175 MCG tablet Discontinued 175 ug PO DAILY@0600 0 October 07, 2016 1:00am October 18, 2018 11:34am Start: 07-10-2016 levothyroxine 175 mcg (0.175 mg) oral tablet Dose : 175 mcg = 1 tab(s), Oral, qDay Start Date: 07/10/16 Status: Ordered Start: 11-13-2015 End: 10-07-2016 Levothyroxine 75 MCG tablet Discontinued 175 ug PO DAILY November 13, 2015 1:00am October 07, 2016 5:00pm Start: 11-13-2015 End: 10-07-2016 take 175 ug by mouth once daily Levothyroxine Discontinued 175 MCG PO DAILY November 13, 2015 1:00am October 07, 2016 5:00pm take 1 tablet by sue once daily SYNTHROID 175 MCG TABS One tablet by mouth daily LEVOTHYROXINE SODIUM [id number] Elsie Palomares LPN Tirzepatide (4 sources) Start: 07-04-2024 Start: 01-19-2024 End: 07-04-2024 Tirzepatide (Mounjaro) 7.5 m g/0.5 mL pen injector Discontinued 7.5 mg SC MO January 19, 2024 12:00am July 04, 2024 4:01pm diabetes Start: 10-11-2023 End: 01-19-2024 Tirzepatide (Mounjaro) 7.5 m g/0.5 mL pen injector Discontinued 7.5 mg SC EVERY WEEK 2 3 October 11, 2023 3:05pm January 19, 2024 3:06pm Type 2 diabetes mellitus with obesity Type 2 diabetes mellitus with other specified complication Obesity, unspecified Start: 05-29-2023 End: 10-11-2023 Tirzepatide (Mounjaro) 7.5 m g/0.5 mL pen injector Discontinued 7.5 mg SC EVERY WEEK 2 3 May 29, 2023 12:00am October 11, 2023 3:05pm Type 2 diabetes mellitus with obesity Type 2 diabetes mellitus with other specified complication Obesity, unspecified Tirzepatide (Mounjaro) 7.5 mg/0.5 mL pen injector (20 sources) Start: 07-04-2024 Tirzepatide (M ounjaro) 7.5 mg/0.5 mL pen injector Active 10 mg SC July 04, 2024 4:01pm diabetes Start: 07-04-2024 Tirzepatide (M ounjaro) 7.5 mg/0.5 mL pen injector Active 10 mg SC July 04, 2024 4:01pm Start: 01-19-2024 End: 07-04-2024 Tirzepatide (Mounjaro) 7.5 m g/0.5 mL pen injector Discontinued 7.5 mg SC MO January 19, 2024 12:00am July 04, 2024 4:01pm diabetes Start: 01-19-2024 End: 07-04-2024 Tirzepatide (Mounjaro) 7.5 m g/0.5 mL pen injector Discontinued 7.5 mg SC MO January 19, 2024 12:00am July 04, 2024 4:01pm Start: 10-11-2023 End: 01-19-2024 Tirzepatide (Mounjaro) 7.5 m g/0.5 mL pen injector Discontinued 7.5 mg SC EVERY WEEK 2 3 October 11, 2023 3:05pm January 19, 2024 3:06pm Type 2 diabetes mellitus with obesity Type 2 diabetes mellitus with other specified complication Obesity, unspecified Start: 10-11-2023 End: 01-19-2024 Tirzepatide (Mounjaro) 7.5 m g/0.5 mL pen injector Discontinued 7.5 mg SC EVERY WEEK 2 October 11, 2023 3:05pm January 19, 2024 3:06pm Start: 10-11-2023 Tirzepatide (M ounjaro) 7.5 mg/0.5 mL pen injector Active 7.5 MG SC EVERY WEEK 2 October 11, 2023 3:05pm Start: 10-11-2023 Tirzepatide (M ounjaro) 7.5 mg/0.5 mL pen injector Active 7.5 MG SC EVERY WEEK 2 October 11, 2023 2:05pm Start: 05-29-2023 End: 10-11-2023 Tirzepatide (Mounjaro) 7.5 m g/0.5 mL pen injector Discontinued 7.5 mg SC EVERY WEEK 2 May 29, 2023 12:00am October 11, 2023 3:05pm Type 2 diabetes mellitus with obesity Type 2 diabetes mellitus with other specified complication Obesity, unspecified Start: 05-29-2023 End: 10-11-2023 Tirzepatide (Mounjaro) 7.5 m g/0.5 mL pen injector Discontinued 7.5 mg SC EVERY WEEK 2 May 29, 2023 12:00am October 11, 2023 3:05pm Start: 05-29-2023 End: 10-11-2023 Tirzepatide (Mounjaro) 7.5 m g/0.5 mL pen injector Discontinued 7.5 MG SC EVERY WEEK 2 May 29, 2023 12:00am October 11, 2023 3:05pm Start: 05-29-2023 End: 10-11-2023 Tirzepatide (Mounjaro) 7.5 m g/0.5 mL pen injector Discontinued 7.5 MG SC EVERY WEEK 2 May 28, 2023 11:00pm October 11, 2023 2:05pm Start: 05-29-2023 Tirzepatide (M ounjaro) 7.5 mg/0.5 mL pen injector Active 7.5 MG SC EVERY WEEK 2 May 29, 2023 12:00am traZODone hydrochloride 150 mg oral tablet (20 sources) Serotonin Reuptake Inhibitor Start: 02-21-2024 take 1 tablet by mouth at bedtime Start: 01-19-2024 End: 02-21-2024 take 2 tablets by mouth at bedtime Trazodone 100 mg Tablet Discontinued 200 mg PO AT BEDTIME January 19, 2024 12:00am February 21, 2024 7:22pm Start: 03-15-2023 End: 01-19-2024 Trazodone 100 mg Tablet Disc ontinued 150 mg PO AT BEDTIME 45 30 0 March 15, 2023 12:00am January 19, 2024 3:06pm Start: 03-15-2023 take 150 mg by mouth at bedtim e Trazodone Active 150 MG PO AT BEDTIME 45 30 March 15, 2023 12:00am Start: 03-01-2023 End: 03-15-2023 take 2 tablets by mouth at bedtime Trazodone 100 mg tablet Discontinued 200 mg PO AT BEDTIME March 01, 2023 12:00am March 15, 2023 8:14pm SLEEP Start: 03-01-2023 End: 03-15-2023 take 200 mg by mouth at bedtime Trazodone Discontinued 200 MG PO AT BEDTIME March 01, 2023 12:00am March 15, 2023 8:14pm Start: 09-15-2014 End: 04-25-2016 TRAZODONE HCL 100 MG TABS on e pill as needed for pain TRAZODONE HCL [id number] Vidhya Art MD Vitamin B Complex (B Complex) Capsule (1 source) Start: 03-01-2023 take 1 capsule by mouth once daily Vitamin B Complex (B Complex) Capsule Active 1 CAP PO DAILY March 01, 2023 12:00am Vitamin B Complex (Vitamins B Complex) capsule (7 sources) Start: 05-15-2024 Start: 05-15-2024 Vitamin B Comp kirt (Vitamins B Complex) capsule Active 1 NMA PO DAILY May 15, 2024 12:00am Vitamin D2 50,000 intl units capsule (1 source) Start: 12-19-2014 Vitamin D2 50, 000 intl units capsule Dose : 50,000 unit(s) = 1 cap(s), Oral, qWeek, 0 Refill(s) Start Date: 12/19/14 Status: Ordered Completed/Discontinued Medications Medication Drug Class(es) Dates Sig (Normalized) Sig (Original) acetaminophen 325 mg / HYDROcodone bitartrate 5 mg oral tablet (20 sources) Opioid Agonist Start: 06-12-2020 End: 06-15-2020 take 1 tablet by mouth every six hours as needed for pain [place] 325- 5 mg oral tablet Dose = 1 tab(s), Oral, q6h, PRN as needed for pain, # 12 tab(s), 0 Refill(s), Contusion of knee, 113.6 Start Date: 06/12/20 Stop Date: 06/15/20 Status: Ordered Start: 10-16-2019 End: 11-13-2019 Hydrocodone-Acetaminophen (N orco) 5-325 mg tablet Discontinued 1 {tbl} PO EVERY 6 HOURS as needed for Pain Or Fever 0 October 16, 2019 1:00am November 13, 2019 1:17pm Start: 10-07-2016 End: 10-18-2018 Hydrocodone-Acetaminophen 1 TABLET tablet Discontinued 1 - 2 {tbl} PO EVERY 4 HOURS NEEDED as needed for Severe Pain () 30 0 October 07, 2016 1:00am October 18, 2018 11:34am 1-2 q4h prn Start: 10-07-2016 End: 10-18-2018 take 1 tablet by mouth every four hours as needed Hydrocodone-Acetaminophen Discontinued 1 - 2 TABLET PO EVERY 4 HOURS NEEDED October 07, 2016 1:00am October 18, 2018 11:34am 1-2 q4h prn Start: 04-28-2016 End: 05-05-2016 Hydrocodone-Acetaminophen 1 TABLET tablet Discontinued 1 {tbl} PO EVERY 6 HOURS NEEDED as needed for Pain April 28, 2016 12:00am May 05, 2016 3:53pm Start: 04-28-2016 End: 05-05-2016 take 1 tablet by mouth every six hours as needed Hydrocodone-Acetaminophen Discontinued 1 TABLET PO EVERY 6 HOURS NEEDED April 28, 2016 12:00am May 05, 2016 3:53pm Start: 07-08-2013 End: 09-06-2014 Hydrocodone-Acetaminophen 1 TABLET tablet Discontinued 1 {tbl} PO EVERY 6 HOURS NEEDED as needed for Pain 8 July 08, 2013 12:00am September 06, 2014 5:08pm Start: 07-08-2013 End: 09-06-2014 take 1 tablet by mouth every six hours as needed Hydrocodone-Acetaminophen Discontinued 1 TABLET PO EVERY 6 HOURS NEEDED July 08, 2013 12:00am September 06, 2014 5:08pm acetaminophen 325 mg / oxyCODONE hydrochloride 5 mg oral tablet (7 sources) Opioid Agonist Start: 01-26-2024 End: 04-02-2024 Oxycodone-Acetaminophen 5-325 mg tablet Discontinued 1 {tbl} PO Q8H as needed for pain 28 7 0 January 26, 2024 April 02, 2024 8:37pm Other acute postprocedural pain Other acute postprocedural pain amitriptyline hydrochloride 150 mg oral tablet (20 sources) Tricyclic Antidepressant Start: 07-08-2013 End: 01-15-2014 take 1 tablet by mouth once daily Amitriptyline 150 MG tablet Discontinued 150 mg PO DAILY July 08, 2013 12:00am January 15, 2014 10:47am AMOXICILLIN-POT CLAVULANATE (20 sources) Penicillin-class Antibacterial Start: 04-25-2016 End: 05-27-2016 AUGMENTIN 875-125 MG TABS AMOXICILLIN-POT CLAVULANATE [id number] Louie Pelayo MA Start: 04-25-2016 AUGMENTIN 875- 125 MG TABS AMOXICILLIN-POT CLAVULANATE [id number] Zack Borges Start: 08-03-2013 End: 08-27-2013 take 1 tablet by mouth twice daily Amoxicillin-Pot Clavulanate 875 MG tablet Discontinued 875 mg PO TWICE A DAY 5 0 August 03, 2013 1:00am August 27, 2013 4:44pm Start: 08-01-2013 End: 08-27-2013 Amoxicillin-Pot Clavulanate 875 MG tablet Discontinued 1 {tbl} PO Q12H 14 0 August 01, 2013 1:00am August 27, 2013 4:44pm End: 04-25-2016 take 1 tablet by mouth once daily AMOXICILLIN-POT CLAVULANATE 875-125 MG TABS One tablet by mouth daily AMOXICILLIN-POT CLAVULANATE [id number] Lucho Chakraborty Jesus apixaban 2.5 mg oral tablet (20 sources) Factor Xa Inhibitor Start: 11-13-2019 End: 07-21-2020 take 1 tablet by mouth twice daily Apixaban 2.5 MG tablet Discontinued 2.5 mg PO TWICE A DAY 28 November 13, 2019 1:00am July 21, 2020 10:24pm Nkkoc-Rmmu-Vvcmn -Cnqmos-Dl-Fcw (Drew (With Collagen)) 7-7-1.5 gram Powder In Packet (19 sources) Start: 04-02-2024 End: 05-22-2024 Cseia-Udqt-Mwxpa-Col lag-Mv-Min (Drew (With Collagen)) 7-7-1.5 gram Powder In Packet Discontinued 1 NMA PO TWICE DAILY WITH MEALS 60 30 0 April 02, 2024 12:00am May 22, 2024 4:09pm Start: 04-02-2024 End: 05-22-2024 Jwgnk-Nssl-Qoact-Collag-Mv-M in (Drew (With Collagen)) 7-7-1.5 gram Powder In Packet Discontinued 1 NMA PO TWICE DAILY WITH MEALS 60 30 April 02, 2024 12:00am May 22, 2024 4:09pm Start: 03-15-2023 End: 04-10-2023 Rwwkm-Xyea-Zhviy-Collag-Mv-M in (Drew (With Collagen)) 7-7-1.5 gram Powder In Packet Discontinued 1 NMA PO TWICE DAILY WITH MEALS 60 30 0 March 15, 2023 12:00am April 10, 2023 9:57am Start: 03-15-2023 End: 04-10-2023 Uqith-Etrc-Tzeoq-Collag-Mv-M in (Drew (With Collagen)) 7-7-1.5 gram Powder In Packet Discontinued 1 NMA PO TWICE DAILY WITH MEALS 60 30 March 15, 2023 12:00am April 10, 2023 9:57am Start: 03-15-2023 End: 04-10-2023 Tbmdn-Dvcx-Hvfdr-Collag-Mv-M in (Drew (With Collagen)) 7-7-1.5 gram Powder In Packet Discontinued 1 PACKET PO TWICE DAILY WITH MEALS 60 30 March 14, 2023 11:00pm April 10, 2023 8:57am Start: 03-15-2023 End: 04-10-2023 Jsajw-Tkyy-Dkpjb-Collag-Mv-M in (Drew (With Collagen)) 7-7-1.5 gram Powder In Packet Discontinued 1 PACKET PO TWICE DAILY WITH MEALS 60 30 March 15, 2023 12:00am April 10, 2023 9:57am Start: 03-15-2023 Dnbgb-Jdmg-Ehz wl-Qrrqhl-Wr-Min (Drew (With Collagen)) 7-7-1.5 gram Powder In Packet Active 1 PACKET PO TWICE DAILY WITH MEALS 60 30 March 15, 2023 12:00am aspirin 325 mg oral tablet (20 sources) Nonsteroidal Anti-inflammatory Drug Start: 01-26-2024 End: 02-21-2024 take 1 capsule by mouth once daily Aspirin 325 mg capsule Discontinued 325 mg PO DAILY January 26, 2024 12:00am February 21, 2024 7:20pm Start: 07-21-2020 Start: 06-18-2020 take 81 mg by mouth once daily 81 mg, Oral, DAILY, First dose on Mon06/18/20 at 0900 Do not crush or break. Start: 11-13-2015 End: 11-13-2019 take 1 tablet by mouth once daily Aspirin 81 MG tablet,chewable Discontinued 81 mg PO DAILY@0800 November 13, 2015 1:00am November 13, 2019 1:17pm supplement will stop 1 week prior to surgery End: 04-25-2016 take 1 tablet by mouth once daily ASPIRIN 81 MG TABS One tablet by mouth daily ASPIRIN [id number] Zack Borges atorvastatin 80 mg oral tablet (20 sources) HMG-CoA Reductase Inhibitor Start: 04-28-2016 End: 01-25-2021 take 1 tablet by mouth at bedtime Atorvastatin 80 MG tablet Discontinued 80 mg PO AT BEDTIME April 28, 2016 12:00am January 25, 2021 9:27am cholesterol End: 04-25-2016 take 1 tablet by mouth once daily ATORVASTATIN CALCIUM 40 MG TABS One tablet by mouth daily ATORVASTATIN CALCIUM [id number] Zack Borges busPIRone hydrochloride 5 mg oral tablet (20 sources) Start: 08-27-2013 End: 01-15-2014 take 1 tablet by mouth twice daily Buspirone 5 MG tablet Discontinued 5 mg PO TWICE A DAY August 27, 2013 1:00am January 15, 2014 10:46am CALCIUM CARB-CHOLECALCIFEROL (2 sources) take 1 tablet by mouth once daily OYSCO D 250-125 MG-UNIT ORAL TABS One tablet by mouth daily CALCIUM CARB-CHOLECALCIFEROL [id number] Elsei Palomares [employer] calcium carbonate 1250 mg / cholecalciferol 0.01 mg oral tablet (20 sources) Vitamin D Start: 10-29-2019 End: 03-15-2023 Calcium Carbonate-Vitamin D3 1 EACH tablet Discontinued 1 NMA PO DAILY October 29, 2019 1:00am March 15, 2023 8:13pm SUPPLEMENT Start: 10-29-2019 End: 03-15-2023 Calcium Carbonate-Vitamin D3 Discontinued 1 EACH PO DAILY October 29, 2019 1:00am March 15, 2023 8:13pm canagliflozin 300 mg oral tablet (20 sources) Sodium-Glucose Cotransporter 2 Inhibitor Start: 04-19-2017 End: 04-21-2017 take 1 tablet by mouth once daily Canagliflozin (Invokana) 300 MG tablet Discontinued 300 mg PO DAILY April 19, 2017 12:00am April 21, 2017 11:46am Start: 06-25-2015 End: 10-19-2016 take 1 tablet by mouth once daily Canagliflozin (Invokana) 300 MG tablet Discontinued 300 mg PO DAILY November 13, 2015 1:00am October 07, 2016 4:57pm carbidopa 25 mg / levodopa 100 mg disintegrating oral tablet (20 sources) Aromatic Amino Acid Decarboxylation Inhibitor Start: 11-13-2015 End: 10-18-2018 Carbidopa-Levodopa 1 EACH tablet,disintegrating Discontinued 1 NMA PO AT BEDTIME November 13, 2015 1:00am October 18, 2018 11:37am Start: 11-13-2015 End: 10-18-2018 Carbidopa-Levodopa Discontin ued 1 EACH PO AT BEDTIME November 13, 2015 1:00am October 18, 2018 11:37am CARBIDOPA-LEVODO PA 25-100 MG TABS q hs CARBIDOPA-LEVODOPA [id number] Elsie Palomares [employer] End: 04-25-2016 take 1 tablet by mouth once daily CARBIDOPA-LEVODOPA 25-100 MG TABS One tablet by mouth daily CARBIDOPA-LEVODOPA [id number] Zack Borges cefadroxil 1000 mg oral tablet (4 sources) Cephalosporin Antibacterial Start: 10-28-2016 End: 11-11-2016 CEFADROXIL 1 GM TABS 1 q 12 CEFADROXIL [id number] Vidhya Art MD Start: 10-15-2014 End: 11-14-2014 CEFADROXIL 1 GM TABS 1poq12 CEFADROXIL [id number] Vidhya Art MD cefdinir 300 mg oral capsule (7 sources) Cephalosporin Antibacterial Start: 05-22-2024 End: 07-04-2024 take 1 capsule by mouth every twelve hours Cefdinir 300 mg Capsule Discontinued 300 mg PO EVERY 12 HOURS 42 21 0 May 22, 2024 12:00am July 04, 2024 3:59pm cefepime 2000 mg injection (20 sources) Cephalosporin Antibacterial Start: 02-26-2024 End: 04-02-2024 Cefepime 2 gram Recon Soln Discontinued 2 g IV EVERY 8 HOURS 114 38 0 February 26, 2024 12:00am April 02, 2024 8:35pm wound infection stop date 04/04/24. dx: ankle osteo. Weekly bmp, cbc, and esr. Fax to [phone] routine picc care per protocol Start: 08-29-2013 End: 01-15-2014 take 1.5 g intravenously every twelve hours Cefepime Discontinued 1.5 GM IV Q12H 36 August 29, 2013 1:32pm January 15, 2014 10:46am routine picc line care weekly cbc, sed rate and crp and bmp Start: 08-29-2013 End: 01-15-2014 Cefepime 1 GM/10 ML Vial Discontinued 1.5 g IV Q12H 36 0 August 29, 2013 1:00am January 15, 2014 10:46am routine picc line care weekly cbc, sed rate and crp and bmp Start: 08-29-2013 End: 01-15-2014 take 1.5 g intravenously every twelve hours Cefepime Discontinued 1.5 GM IV Q12H August 29, 2013 12:00am January 15, 2014 9:46am routine picc line care weekly cbc, sed rate and crp and bmp Start: 08-29-2013 End: 01-15-2014 take 1.5 g intravenously every twelve hours Cefepime Discontinued 1.5 GM IV Q12H August 29, 2013 1:00am January 15, 2014 10:46am routine picc line care weekly cbc, sed rate and crp and bmp Cefepime 1 GM/10 ML Vial (6 sources) Start: 08-29-2013 End: 01-15-2014 Cefepime 1 GM/10 ML Vial Dis continued 1.5 g IV Q12H 36 0 August 29, 2013 1:00am January 15, 2014 10:46am routine picc line care weekly cbc, sed rate and crp and bmp Start: 08-29-2013 End: 01-15-2014 Cefepime 1 GM/10 ML Vial Dis continued 1.5 g IV Q12H August 29, 2013 1:00am January 15, 2014 10:46am routine picc line care weekly cbc, sed rate and crp and bmp cefTRIAXone 100 mg/ml injectable solution (2 sources) Cephalosporin Antibacterial CEFTRIAXONE SODIUM 2 GM SOLR q 12 hrs CEFTRIAXONE SODIUM [id number] Elsie Palomares LPN cephalexin 500 mg oral tablet (20 sources) Cephalosporin Antibacterial Start: 2 End: 2 take 1 tablet by mouth three times daily Cephalexin 500 mg tablet Discontinued 500 mg PO THREE TIMES A DAY 15 0 April 06, 2022 12:00am May 04, 2022 1:08pm Start: 10-18-2018 End: 10-16-2019 take 1 capsule by mouth three times daily Cephalexin (Keflex) 500 mg capsule Discontinued 500 mg PO THREE TIMES A DAY 30 October 18, 2018 1:00am October 16, 2019 12:43pm cilostazol 100 mg oral tablet (20 sources) Phosphodiesterase 3 Inhibitor Start: 07-21-2020 End: 03-15-2023 take 1 tablet by mouth once daily Cilostazol 100 mg tablet Discontinued 100 mg PO DAILY July 21, 2020 1:00am March 15, 2023 8:13pm CHOLESTEROL Start: 07-10-2019 take 100 mg by mouth twice hari ly Cilostazol Active 100 MG PO TWICE A DAY July 21, 2020 1:00am Start: 05-06-2017 End: 07-21-2020 take 1 tablet by mouth twice daily before mealtime Cilostazol 50 MG tablet Discontinued 100 mg PO TWICE DAILY BEFORE MEALS October 29, 2019 11:45am July 21, 2020 10:21pm bp Start: 05-06-2017 End: 07-21-2020 take 100 mg by mouth twice daily before mealtime Cilostazol Discontinued 100 MG PO TWICE DAILY BEFORE MEALS October 29, 2019 11:45am July 21, 2020 10:21pm clindamycin 150 mg oral capsule (20 sources) Lincosamide Antibacterial Start: 11-16-2015 End: 11-25-2015 take 3 capsules by mouth every six hours Clindamycin Hcl 150 MG capsule Discontinued 450 mg PO EVERY 6 HOURS X 10 DAYS 10 November 16, 2015 1:00am November 25, 2015 1:49pm MRSA cellulitis Continue regimen 450 mg QID x 10 day duration. Start: 11-16-2015 End: 11-25-2015 take 450 mg by mouth every six hours Clindamycin Hcl Discontinued 450 MG PO EVERY 6 HOURS X 10 DAYS November 16, 2015 1:00am November 25, 2015 1:49pm Continue regimen 450 mg QID x 10 day duration. Start: 08-30-2014 End: 09-06-2014 take 3 capsules by mouth four times daily Clindamycin Hcl 150 MG capsule Discontinued 450 mg PO 4 TIMES DAILY 7 August 30, 2014 1:00am September 06, 2014 5:08pm Start: 08-30-2014 End: 09-06-2014 take 450 mg by mouth four times daily Clindamycin Hcl Discontinued 450 MG PO 4 TIMES DAILY August 30, 2014 1:00am September 06, 2014 5:08pm clonazePAM 0.5 mg oral tablet (20 sources) Benzodiazepine Start: 11-13-2015 End: 10-18-2018 take 1 tablet by mouth at bedtime Clonazepam 0.5 MG tablet Discontinued 0.5 mg PO AT BEDTIME April 19, 2017 3:02pm October 18, 2018 11:37am codeine phosphate 2 mg/ml / guaiFENesin 20 mg/ml oral solution (6 sources) Opioid Agonist Start: 04-25-2016 End: 05-27-2016 GUAIFENESIN-CODEINE 100-10 MG/5ML SOLN GUAIFENESIN-CODEINE [id number] Zack Borges GUAIFENESIN-CODE INE 100-10 MG/5ML SOLN 120ml q 4 hrs prn GUAIFENESIN-CODEINE [id number] Elsie Palomares [employer] cyclobenzaprine hydrochloride 10 mg oral tablet (20 sources) Muscle Relaxant Start: 10-18-2018 End: 07-21-2020 take 1 tablet by mouth at bedtime Cyclobenzaprine 10 mg tablet Discontinued 10 mg PO AT BEDTIME October 18, 2018 1:00am July 21, 2020 10:24pm muscle relaxant Start: 12-19-2014 End: 10-07-2016 take 1 tablet by mouth once daily Cyclobenzaprine 10 MG tablet Discontinued 10 mg PO DAILY November 13, 2015 1:00am October 07, 2016 4:57pm Start: 08-27-2013 End: 08-29-2013 take 1 tablet by mouth three times daily as needed for pain Cyclobenzaprine 10 MG tablet Discontinued 10 mg PO 3 TIMES DAILY NEEDED as needed for Pain August 27, 2013 1:00am August 29, 2013 2:27pm docusate sodium 50 mg / sennosides, nursing home 8.6 mg oral tablet (7 sources) Start: 04-02-2024 End: 05-09-2024 Sennosides-Docusate Sodium (Stimulant Laxative Plus) 8.6-50 mg Tablet Discontinued 2 {tbl} PO TWICE A DAY 120 30 0 April 02, 2024 12:00am May 09, 2024 10:36am doxycycline monohydrate 100 mg oral capsule (20 sources) Tetracyclin e-class Drug Start: 05-22-2024 End: 07-04-2024 take 1 capsule by mouth twice daily Doxycycline Monohydrate 100 mg Capsule Discontinued 100 mg PO TWICE A DAY 42 May 22, 2024 12:00am July 04, 2024 4:00pm Start: 01-26-2024 End: 02-21-2024 take 1 capsule by mouth once daily Doxycycline Hyclate 100 mg capsule Discontinued 100 mg PO DAILY January 26, 2024 12:00am February 21, 2024 7:21pm Start: 10-04-2016 End: 10-07-2016 take 1 capsule by mouth twice daily Doxycycline Hyclate 100 MG capsule Discontinued 100 mg PO TWICE A DAY October 04, 2016 1:00am October 07, 2016 4:57pm Start: 09-10-2014 End: 10-15-2014 take 1 tablet by mouth twice daily DOXYCYCLINE HYCLATE 100 MG TABS One tablet by mouth twice daily DOXYCYCLINE HYCLATE [id number] Elsie Palomares LPN 0.5 ml dulaglutide 3 mg/ml auto-injector (20 sources) GLP-1 Receptor Agonist Start: 07-10-2019 End: 07-21-2020 Dulaglutide 1.5 MG/0.5 ML pen injector Discontinued 1.5 mg SQ EVERY WEEK October 29, 2019 1:00am July 21, 2020 10:24pm diabetes takes it every monday Start: 10-04-2016 End: 10-18-2018 Dulaglutide 1.5 MG/0.5 ML pe n injector Discontinued 1.5 mg SQ Q7D October 04, 2016 1:00am October 18, 2018 11:37am TRULICITY 1.5 MG /0.5ML SOPN sq q 7 days DULAGLUTIDE [id number] Elsie Palomares LPN DULoxetine 60 mg delayed release oral capsule (20 sources) Serotonin and Norepinephrine Reuptake Inhibitor Start: 10-04-2016 End: 10-07-2016 Duloxetine 60 MG capsule Discontinued 200 mg PO AT BEDTIME October 04, 2016 1:00am October 07, 2016 5:02pm Start: 10-04-2016 End: 10-07-2016 take 200 mg by mouth at bedtime Duloxetine Discontinue d 200 MG PO AT BEDTIME October 04, 2016 1:00am October 07, 2016 5:02pm DULOXETINE HCL 6 0 MG CPEP 2 tabs q hs DULOXETINE HCL [id number] Elsie Palomares LPN empagliflozin 25 mg oral tablet (20 sources) Sodium-Glucose Cotransporter 2 Inhibitor Start: 07-10-2019 End: 01-25-2021 take 1 tablet by mouth once daily Empagliflozin 25 MG tablet Discontinued 25 mg PO DAILY October 29, 2019 1:00am January 25, 2021 9:27am diabetes 0.4 ml enoxaparin sodium 100 mg/ml prefilled syringe (20 sources) Low Molecular Weight Heparin Start: 05-22-2024 End: 07-04-2024 Enoxaparin 40 mg/0.4 mL Syringe Discontinued 40 mg SC DAILY 5.6 14 0 May 22, 2024 12:00am July 04, 2024 4:00pm Start: 06-18-2020 inject 40 mg by subc utaneous injection once daily 40 mg, Subcutaneous, DAILY, First dose on Mon06/18/20 at 0900 Start: 05-06-2017 End: 10-18-2018 Enoxaparin 40 MG/0.4 ML syri nge Discontinued 40 mg SC DAILY@0600 0 May 06, 2017 12:00am October 18, 2018 11:37am ergocalciferol 1.25 mg oral capsule (20 sources) Provitamin D2 Compound Start: 10-29-2019 End: 07-21-2020 Ergocalciferol (Vitamin D2) 50,000 UNIT capsule Discontinued 07468 U PO EVERY WEEK October 29, 2019 1:00am July 21, 2020 10:24pm supplement takes every monday Start: 11-13-2015 End: 03-31-2016 Ergocalciferol (Vitamin D2) (Vitamin D2) 50,000 UNIT capsule Discontinued 74400 U PO November 13, 2015 1:00am March 31, 2016 11:22am ERGOCALCIFEROL 5 0000 UNIT CAPS q 7 days ERGOCALCIFEROL [id number] Elsie Palomares LPN 60 actuat exenatide 0.01 mg/actuat pen injector (20 sources) GLP-1 Receptor Agonist Start: 07-08-2013 End: 08-29-2013 Exenatide ([place] ([facility])) 10 MCG/0.04 ML syringe Discontinued 10 ug SC TWICE A DAY August 27, 2013 1:00am August 29, 2013 2:27pm ferrous sulfate 325 mg oral tablet (20 sources) Start: 08-26-2022 End: 03-15-2023 take 1 tablet by mouth once daily Ferrous Sulfate (Iron) 325 mg (65 mg iron) Tablet Discontinued 325 mg PO DAILY August 26, 2022 1:00am March 15, 2023 8:13pm ANEMIA Start: 12-19-2014 End: 07-21-2020 take 1 tablet by mouth once daily Ferrous Sulfate 325 MG tablet Discontinued 325 mg PO DAILY November 13, 2015 1:00am July 21, 2020 10:24pm anemia take 1 tablet by sue once daily FERROUS SULFATE TABS One tablet by mouth daily FERROUS SULFATE TABS [id number] Lucho Chakraborty Jesus End: 04-25-2016 take 1 tablet by mouth once daily FERROUS SULFATE TABS One tablet by mouth daily FERROUS SULFATE TABS [id number] Zack Borges hydroCHLOROthiazide 25 mg oral tablet (20 sources) Thiazide Diuretic Start: 08-27-2013 End: 09-06-2014 take 1 tablet by mouth once daily Hydrochlorothiazide 25 MG tablet Discontinued 25 mg PO DAILY August 27, 2013 1:00am September 06, 2014 5:07pm 3 ml insulin detemir 100 unt/ml pen injector (20 sources) Insulin Analogue Start: 05-29-2023 End: 01-19-2024 Insulin Detemir U-100 (Levemir Flexpen) 100 unit/mL (3 mL) insulin pen Discontinued 30 U SC AT BEDTIME 05 16May 29, 2023 12:00am January 19, 2024 3:03pm Diabetes mellitus with diabetic polyneuropathy Type 2 diabetes mellitus with diabetic polyneuropathy Start: 03-01-2023 End: 03-15-2023 Insulin Detemir U-100 (Levem ir Flexpen) 100 unit/mL (3 mL) insulin pen Discontinued 55 U SC DAILY March 01, 2023 11:08am March 15, 2023 8:13pm DIABETES Start: 02-13-2023 End: 03-01-2023 Insulin Detemir U-100 (Levem ir Flexpen) 100 unit/mL (3 mL) insulin pen Discontinued 60 U SC DAILY 26 01February 13, 2023 12:00am March 01, 2023 11:08am Start: 10-04-2016 End: 10-18-2018 Insulin Detemir U-100 100 UN ITS/ML insulin pen Discontinued 75 U SC TWICE A DAY October 04, 2016 6:51pm October 18, 2018 11:34am Start: 10-04-2016 End: 10-18-2018 Insulin Detemir U-100 Discon tinued 75 UNITS SC TWICE A DAY October 04, 2016 6:51pm October 18, 2018 11:34am Start: 05-05-2016 End: 10-04-2016 Insulin Detemir U-100 (Levem ir Flextouch U100 Insulin) 100 UNITS/ML Insuln.Pen Discontinued 20 U SC AT BEDTIME 0 May 05, 2016 12:00am October 04, 2016 6:51pm Start: 05-05-2016 End: 10-04-2016 Insulin Detemir U-100 (Levem ir Flextouch U-100 Insuln) 100 UNITS/ML Insuln.Pen Discontinued 20 UNITS SC AT BEDTIME 0 May 05, 2016 12:00am October 04, 2016 6:51pm Start: 03-31-2016 End: 05-05-2016 Insulin Detemir U-100 (Levem ir Flextouch U100 Insulin) 100 UNITS/ML Insuln.Pen Discontinued 80 U SC TWICE A DAY March 31, 2016 11:24am May 05, 2016 3:53pm Start: 03-31-2016 End: 05-05-2016 Insulin Detemir U-100 (Levem ir Flextouch U-100 Insuln) 100 UNITS/ML Insuln.Pen Discontinued 80 UNITS SC TWICE A DAY March 31, 2016 11:24am May 05, 2016 3:53pm Start: 11-16-2015 End: 03-31-2016 Insulin Detemir U-100 (Levem ir Flextouch U100 Insulin) 100 UNITS/ML Insuln.Pen Discontinued 60 U SC TWICE A DAY 1 November 16, 2015 1:00am March 31, 2016 11:25am Start: 11-16-2015 End: 03-31-2016 Insulin Detemir U-100 (Levem ir Flextouch U-100 Insuln) 100 UNITS/ML Insuln.Pen Discontinued 60 UNITS SC TWICE A DAY 1 November 16, 2015 1:00am March 31, 2016 11:25am Start: 08-29-2013 End: 09-24-2013 Insulin Detemir U-100 (Levem ir Flextouch U100 Insulin) 100 UNITS/ML Flexpen Discontinued 40 U SC DAILY 1 August 29, 2013 1:00am September 24, 2013 3:38pm Start: 08-29-2013 End: 09-24-2013 Insulin Detemir U-100 (Levem ir Flextouch U-100 Insuln) 100 UNITS/ML Flexpen Discontinued 40 UNITS SC DAILY August 29, 2013 1:00am September 24, 2013 3:38pm LEVEMIR FLEXTOUC H 100 UNIT/ML SOPN 80 u bid INSULIN DETEMIR [id number] Elsie Palomares LPN Insulin Detemir U-100 (Levemir Flexpen) 100 unit/mL (3 mL) insulin pen (20 sources) Start: 05-29-2023 End: 01-19-2024 Insulin Detemir U-100 (Levem ir Flexpen) 100 unit/mL (3 mL) insulin pen Discontinued 30 U SC AT BEDTIME 05 16May 29, 2023 12:00am January 19, 2024 3:03pm Diabetes mellitus with diabetic polyneuropathy Type 2 diabetes mellitus with diabetic polyneuropathy Start: 05-29-2023 End: 01-19-2024 Insulin Detemir U-100 (Levem ir Flexpen) 100 unit/mL (3 mL) insulin pen Discontinued 30 U SC AT BEDTIME May 29, 2023 12:00am January 19, 2024 3:03pm Start: 05-29-2023 Insulin Detemi r U-100 (Levemir Flexpen) 100 unit/mL (3 mL) insulin pen Active 30 UNIT SC AT BEDTIME May 28, 2023 11:00pm Start: 05-29-2023 Insulin Detemi r U-100 (Levemir Flexpen) 100 unit/mL (3 mL) insulin pen Active 30 UNIT SC AT BEDTIME May 29, 2023 12:00am Start: 03-01-2023 End: 03-15-2023 Insulin Detemir U-100 (Levem ir Flexpen) 100 unit/mL (3 mL) insulin pen Discontinued 55 U SC DAILY March 01, 2023 11:08am March 15, 2023 8:13pm DIABETES Start: 03-01-2023 End: 03-15-2023 Insulin Detemir U-100 (Levem ir Flexpen) 100 unit/mL (3 mL) insulin pen Discontinued 55 U SC DAILY March 01, 2023 11:08am March 15, 2023 8:13pm Start: 03-01-2023 End: 03-15-2023 Insulin Detemir U-100 (Levem ir Flexpen) 100 unit/mL (3 mL) insulin pen Discontinued 55 UNIT SC DAILY March 01, 2023 10:08am March 15, 2023 7:13pm Start: 03-01-2023 End: 03-15-2023 Insulin Detemir U-100 (Levem ir Flexpen) 100 unit/mL (3 mL) insulin pen Discontinued 55 UNIT SC DAILY March 01, 2023 11:08am March 15, 2023 8:13pm Start: 03-01-2023 Insulin Detemi r U-100 (Levemir Flexpen) 100 unit/mL (3 mL) insulin pen Active 55 UNIT SC DAILY March 01, 2023 11:08am Start: 02-13-2023 End: 03-01-2023 Insulin Detemir U-100 (Levem ir Flexpen) 100 unit/mL (3 mL) insulin pen Discontinued 60 U SC DAILY 26 01February 13, 2023 12:00am March 01, 2023 11:08am Start: 02-13-2023 End: 03-01-2023 Insulin Detemir U-100 (Levem ir Flexpen) 100 unit/mL (3 mL) insulin pen Discontinued 60 U SC DAILY February 13, 2023 12:00am March 01, 2023 11:08am Start: 02-13-2023 End: 03-01-2023 Insulin Detemir U-100 (Levem ir Flexpen) 100 unit/mL (3 mL) insulin pen Discontinued 60 UNIT SC DAILY February 12, 2023 11:00pm March 01, 2023 10:08am Start: 02-13-2023 End: 03-01-2023 Insulin Detemir U-100 (Levem ir Flexpen) 100 unit/mL (3 mL) insulin pen Discontinued 60 UNIT SC DAILY February 13, 2023 12:00am March 01, 2023 11:08am Start: 02-13-2023 Insulin Detemi r U-100 (Levemir Flexpen) 100 unit/mL (3 mL) insulin pen Active 60 UNIT SC DAILY February 13, 2023 12:00am 3 ml insulin glargine 100 unt/ml / lixisenatide 0.033 mg/ml pen injector (20 sources) Insulin Analog Start: 07-13-2022 End: 02-13-2023 Insulin Glargine-Lixisenatid e (Soliqua 100/33) 100 unit-33 mcg/mL insulin pen Discontinued 60 U SC DAILY July 13, 2022 12:00am February 13, 2023 11:58am DIABETES Start: 07-13-2022 Insulin Glargi ne-Lixisenatide (Soliqua 100/33) 100 unit-33 mcg/mL insulin pen Active 60 UNIT SC July 12, 2022 11:00pm ipratropium bromide 0.042 mg/actuat metered dose nasal spray (14 sources) Anticholinergic Start: 03-01-2023 End: 03-15-2023 Ipratropium Rhine 42 mcg (0.06 %) spray,non-aerosol Discontinued 2 NMA INTRANASAL DAILY March 01, 2023 12:00am March 15, 2023 8:13pm NASAL DRAINAGE Start: 03-01-2023 End: 03-15-2023 Ipratropium Rhine Disconti nued 2 SPRAY INTRANASAL DAILY March 01, 2023 12:00am March 15, 2023 8:13pm lansoprazole 30 mg delayed release oral capsule (20 sources) Proton Pump Inhibitor Start: 10-04-2016 End: 10-07-2016 take 1 capsule by mouth once daily Lansoprazole 30 MG Capsule.Dr Discontinued 30 mg PO DAILY October 04, 2016 1:00am October 07, 2016 4:55pm levoFLOXacin 500 mg oral tablet (20 sources) Quinolone Antimicrobial Start: 03-06-2023 End: 01-19-2024 take 1 tablet by mouth once daily Levofloxacin 500 mg Tablet Discontinued 500 mg PO DAILY March 15, 2023 12:00am January 19, 2024 3:04pm Start: 04-21-2017 End: 10-18-2018 take 1 tablet by mouth once daily Levofloxacin 750 MG tablet Discontinued 750 mg PO DAILY April 21, 2017 12:00am October 18, 2018 11:34am Start: 04-25-2016 End: 05-27-2016 LEVAQUIN 750 MG TABS LEVOFLOXACIN [id number] Louie Pelayo MA lisinopril 5 mg oral tablet (20 sources) Angiotensin Converting Enzyme Inhibitor Start: 11-16-2015 End: 07-21-2020 take 1 tablet by mouth once daily Lisinopril 5 mg tablet Discontinued 5 mg PO DAILY October 18, 2018 1:00am July 21, 2020 10:22pm bp Start: 12-19-2014 End: 04-25-2016 lisinopril 20 mg oral tablet Dose : 20 mg = 1 tab(s), Oral, Daily, 0 Refill(s) Start Date: 12/19/14 Status: Ordered loratadine 10 mg oral capsule (20 sources) Start: 10-18-2018 End: 03-15-2023 take 1 capsule by mouth once daily Loratadine 10 mg capsule Discontinued 10 mg PO DAILY October 18, 2018 1:00am March 15, 2023 8:13pm ALLERGIES Start: 04-19-2017 End: 10-18-2018 take 1 tablet by mouth once daily Loratadine 10 MG tablet Discontinued 10 mg PO DAILY April 19, 2017 12:00am October 18, 2018 11:34am Start: 11-13-2015 End: 10-07-2016 take 1 tablet by mouth once daily Loratadine (Allergy Relief) 10 MG tablet Discontinued 10 mg PO DAILY October 04, 2016 1:00am October 07, 2016 4:54pm losartan potassium 100 mg oral tablet (20 sources) Angiotensin 2 Receptor Zak Start: 05-22-2024 End: 07-04-2024 Losartan 100 mg tablet Discontinued 50 mg PO DAILY 30 0 May 22, 2024 4:21pm July 04, 2024 4:00pm BLOOD PRESSURE Start: 03-01-2023 End: 05-22-2024 take 1 tablet by mouth once daily Losartan 100 mg tablet Discontinued 100 mg PO DAILY March 01, 2023 12:00am May 22, 2024 4:21pm BLOOD PRESSURE 50 ml magnesium sulfate 40 mg/ml injection (1 source) Start: 06-17-2020 End: 06-17-2020 magnesium sulfate 2 g in 50 mL IVPB premix meloxicam 7.5 mg oral tablet (20 sources) Nonsteroidal Anti-inflammatory Drug Start: 10-04-2016 End: 10-07-2016 take 1 tablet by mouth once daily Meloxicam (Mobic) 7.5 MG tablet Discontinued 7.5 mg PO DAILY October 04, 2016 1:00am October 07, 2016 4:54pm End: 04-25-2016 take 1 tablet by mouth once daily MELOXICAM 7.5 MG TABS One tablet by mouth daily MELOXICAM [id number] Zack Borges methylPREDNISolone acetate 40 mg/ml injectable suspension (3 sources) Corticosteroid Start: 01-31-2020 End: 01-25-2021 Depo-Medrol (methylprednisolone acetate) 40 mg/mL suspension for injection Discontinued 40 MG INTRAARTIC ONCE January 25, 2021 8:43am January 25, 2021 10:24am Start: 11-08-2018 End: 11-08-2018 Kenalog (triamcinolone aceto nide) 40 mg/mL suspension for injection Discontinued 40 MG INTRAARTIC ONCE November 08, 2018 10:56am November 08, 2018 11:31am metroNIDAZOLE 500 mg oral tablet (7 sources) Nitroimidazole Antimicrobial Start: 05-22-2024 End: 07-04-2024 take 1 tablet by mouth three times daily Metronidazole 500 mg Tablet Discontinued 500 mg PO THREE TIMES A DAY 63 21 0 May 22, 2024 12:00am July 04, 2024 4:00pm Multivitamin preparation (7 sources) Start: 03-01-2023 End: 03-15-2023 take 1 tablet by mouth once daily Multivitamin Discontinued 1 TABLET PO DAILY February 28, 2023 11:00pm March 15, 2023 7:14pm Start: 03-01-2023 End: 03-15-2023 take 1 tablet by mouth once daily Multivitamin Discontinued 1 TABLET PO DAILY March 01, 2023 12:00am March 15, 2023 8:14pm Start: 03-01-2023 take 1 tablet by sue th once daily Multivitamin Active 1 TABLET PO DAILY March 01, 2023 12:00am Multivitamin Tablet (7 sources) Start: 03-01-2023 End: 03-15-2023 Multivitamin Tablet Disconti nued 1 {tbl} PO DAILY March 01, 2023 12:00am March 15, 2023 8:14pm HEALTH MAINTENANCE Start: 03-01-2023 End: 03-15-2023 Multivitamin Tablet Disconti nued 1 {tbl} PO DAILY March 01, 2023 12:00am March 15, 2023 8:14pm naproxen 500 mg oral tablet (20 sources) Nonsteroidal Anti-inflammatory Drug Start: 03-28-2016 End: 05-05-2016 take 1 tablet by mouth twice daily as needed Naproxen 500 MG tablet Discontinued 500 mg PO TWICE DAILY NEEDED March 28, 2016 12:00am May 05, 2016 3:54pm 24 hr nicotine 0.875 mg/hr transdermal system (7 sources) Cholinergic Nicotinic Agonist Start: 04-02-2024 End: 05-09-2024 apply 1 dose transdermal route every twenty-four hours Nicotine 21 mg/24 hr Patch 24 Hour Discontinued 21 mg TD DAILY 30 0 April 02, 2024 12:00am May 09, 2024 10:35am omeprazole 40 mg delayed release oral capsule (20 sources) Proton Pump Inhibitor Start: 12-19-2014 End: 10-18-2018 take 1 capsule by mouth once daily Omeprazole 40 MG capsule,delayed release(DR/EC) Discontinued 40 mg PO DAILY April 28, 2016 12:00am October 18, 2018 11:34am End: 04-25-2016 take 1 tablet by mouth once daily OMEPRAZOLE 20 MG CPDR One tablet by mouth daily OMEPRAZOLE [id number] Zack Borges ondansetron 4 mg disintegrating oral tablet (20 sources) Serotonin-3 Receptor Antagonist Start: 01-26-2024 End: 04-02-2024 take 1 tablet by mouth every eight hours as needed for nausea and vomiting Ondansetron 4 mg tablet,disintegrating Discontinued 4 mg PO Q8H as needed for nausea and vomiting February 21, 2024 12:00am April 02, 2024 8:37pm Start: 10-07-2016 End: 10-18-2018 take 1 tablet by mouth every four hours as needed for nausea Ondansetron Hcl 4 MG tablet Discontinued 4 mg PO Q4H as needed for Nausea October 07, 2016 5:00pm October 18, 2018 11:35am potassium (2 sources) POTASSIUM TABS POTASSIUM TABS [id number] Vidhya Art MD predniSONE 10 mg oral tablet (4 sources) Corticosteroid Start: 6 End: 6 PREDNISONE 10 MG TABS PREDNISONE [id number] Louie Pelayo MA raNITIdine 300 mg oral tablet (20 sources) Histamine-2 Receptor Antagonist Start: 3 End: 4 take 1 tablet by mouth once daily Ranitidine (Zantac) 300 MG tablet Discontinued 300 mg PO DAILY August 27, 2013 1:00am January 15, 2014 10:42am Start: 08-27-2013 End: 01-15-2014 take 1 tablet by mouth once daily Ranitidine (Zantac) 300 MG tablet Discontinued 300 MG PO DAILY August 27, 2013 1:00am January 15, 2014 10:42am SULFAMETHOXAZOLE-TRIMETHOPRI M TABS (4 sources) Dihydrofolate Reductase Inhibitor Antibacterial, Sulfonamide Antimicrobial take 1 tablet by mouth once daily SULFAMETHOXAZOLE-TRIMETHOPRIM TABS One tablet by mouth daily SULFAMETHOXAZOLE-TRIMETHOPRIM TABS [id number] Lucho Chakraborty Jeuss End: 09-10-2014 take 1 tablet by mouth once daily SULFAMETHOXAZOLE-TRIMETHOPRIM TABS One t ablet by mouth daily SULFAMETHOXAZOLE-TRIMETHOPRIM TABS [id number] Louie Pelayo MA Tirzepatide (2 sources) Start: 03-01-2023 End: 04-10-2023 Tirzepatide (Mounjaro) 2.5 m g/0.5 mL pen injector Discontinued 2.5 mg SC WE March 01, 2023 11:08am April 10, 2023 10:11am DIABETES Start: 02-13-2023 End: 03-01-2023 Tirzepatide (Mounjaro) 2.5 m g/0.5 mL pen injector Discontinued 2.5 mg SC EVERY WEEK 2 28 February 13, 2023 12:00am March 01, 2023 11:08am Type 2 diabetes mellitus with obesity Type 2 diabetes mellitus with other specified complication Obesity, unspecified Tirzepatide (1 source) Start: 04-10-2023 End: 05-29-2023 Tirzepatide (Mounjaro) 5 mg/ 0.5 mL pen injector Discontinued 5 mg SC EVERY WEEK 2 4 April 10, 2023 12:00am May 29, 2023 2:09pm Tirzepatide (Mounjaro) 2.5 mg/0.5 mL pen injector (20 sources) Start: 03-01-2023 End: 04-10-2023 Tirzepatide (Mounjaro) 2.5 mg/0.5 mL pen injector Discontinued 2.5 mg SC WE March 01, 2023 11:08am April 10, 2023 10:11am DIABETES Start: 03-01-2023 End: 04-10-2023 Tirzepatide (Mounjaro) 2.5 m g/0.5 mL pen injector Discontinued 2.5 mg SC WE March 01, 2023 11:08am April 10, 2023 10:11am Start: 03-01-2023 End: 04-10-2023 Tirzepatide (Mounjaro) 2.5 m g/0.5 mL pen injector Discontinued 2.5 MG SC WE March 01, 2023 10:08am April 10, 2023 9:11am Start: 03-01-2023 End: 04-10-2023 Tirzepatide (Mounjaro) 2.5 m g/0.5 mL pen injector Discontinued 2.5 MG SC WE March 01, 2023 11:08am April 10, 2023 10:11am Start: 03-01-2023 Tirzepatide (M ounjaro) 2.5 mg/0.5 mL pen injector Active 2.5 MG SC WE March 01, 2023 11:08am Start: 02-13-2023 End: 03-01-2023 Tirzepatide (Mounjaro) 2.5 m g/0.5 mL pen injector Discontinued 2.5 mg SC EVERY WEEK 2 08 10February 13, 2023 12:00am March 01, 2023 11:08am Type 2 diabetes mellitus with obesity Type 2 diabetes mellitus with other specified complication Obesity, unspecified Start: 02-13-2023 End: 03-01-2023 Tirzepatide (Mounjaro) 2.5 m g/0.5 mL pen injector Discontinued 2.5 mg SC EVERY WEEK 2 February 13, 2023 12:00am March 01, 2023 11:08am Start: 02-13-2023 End: 03-01-2023 Tirzepatide (Mounjaro) 2.5 m g/0.5 mL pen injector Discontinued 2.5 MG SC EVERY WEEK 2 February 12, 2023 11:00pm March 01, 2023 10:08am Start: 02-13-2023 End: 03-01-2023 Tirzepatide (Mounjaro) 2.5 m g/0.5 mL pen injector Discontinued 2.5 MG SC EVERY WEEK 2 February 13, 2023 12:00am March 01, 2023 11:08am Start: 02-13-2023 Tirzepatide (M ounjaro) 2.5 mg/0.5 mL pen injector Active 2.5 MG SC EVERY WEEK 11 08February 13, 2023 12:00am Tirzepatide (Mounjaro) 5 mg/ 0.5 mL pen injector (10 sources) Start: 04-10-2023 End: 05-29-2023 Tirzepatide (Mounjaro) 5 mg/ 0.5 mL pen injector Discontinued 5 mg SC EVERY WEEK 2 April 10, 2023 12:00am May 29, 2023 2:09pm Start: 04-10-2023 End: 05-29-2023 Tirzepatide (Mounjaro) 5 mg/ 0.5 mL pen injector Discontinued 5 mg SC EVERY WEEK 2 April 10, 2023 12:00am May 29, 2023 2:09pm Start: 04-10-2023 End: 05-29-2023 Tirzepatide (Mounjaro) 5 mg/ 0.5 mL pen injector Discontinued 5 MG SC EVERY WEEK 2 April 09, 2023 11:00pm May 29, 2023 1:09pm Start: 04-10-2023 End: 05-29-2023 Tirzepatide (Mounjaro) 5 mg/ 0.5 mL pen injector Discontinued 5 MG SC EVERY WEEK 2 April 10, 2023 12:00am May 29, 2023 2:09pm venlafaxine 75 mg oral tablet (20 sources) Serotonin and Norepinephrine Reuptake Inhibitor Start: 11-13-2015 End: 10-07-2016 take 1 tablet by mouth twice daily Venlafaxine 75 MG tablet Discontinued 75 mg PO TWICE A DAY November 13, 2015 1:00am October 07, 2016 4:54pm Vitamin B Complex (6 sources) Start: 03-01-2023 End: 03-15-2023 take 1 capsule by mouth once daily Vitamin B Complex Discontinued 1 CAP PO DAILY February 28, 2023 11:00pm March 15, 2023 7:14pm Start: 03-01-2023 End: 03-15-2023 take 1 capsule by mouth once daily Vitamin B Complex Discontinued 1 CAP PO DAILY March 01, 2023 12:00am March 15, 2023 8:14pm Start: 03-01-2023 take 1 capsule by mo uth once daily Vitamin B Complex Active 1 CAP PO DAILY March 01, 2023 12:00am Vitamin B Complex Capsule (7 sources) Start: 03-01-2023 End: 03-15-2023 Vitamin B Complex Capsule Discontinued 1 NMA PO DAILY March 01, 2023 12:00am March 15, 2023 8:14pm SUPPLEMENT Start: 03-01-2023 End: 03-15-2023 Vitamin B Complex Capsule Di scontinued 1 NMA PO DAILY March 01, 2023 12:00am March 15, 2023 8:14pm Problems Active Problems Problem Classification Problem Date Documented Da te Episodic/Chronic Allergic reactions (20 sources) Anaphylaxis; Translations: [Anaphylactic shock, unspecified, initial encounter] 11-11-2019 Episodic Comment on above: tetanus vaccine Asthma (20 sources) Asthma; Translations: [Unspecified asthma, uncomplicated] Onset: 10-19-2016 10-20-2016 Chronic Bacterial infection (20 sources) Streptococcus, group B, as the cause of diseases classified elsewhere; Translations: [Methicillin susceptible Staphylococcus aureus infection as the cause of diseases classified elsewhere] Onset: 10-15-2014 10-15-2014 Episodic Cardiac dysrhythmias (20 sources) Tachycardia; Translations: [Tachycardia, unspecified] Onset: 06-17-2020 06-17-2020 Episodic Chronic ulcer of skin (20 sources) Pressure ulcer; Translations: [Pressure ulcer of other site, unspecified stage] Onset: 01-27-2025 11-11-2019 Chronic Coronary atherosclerosis and other heart disease (20 sources) Exercise-induced angina; Translations: [Other forms of angina pectoris] 2020 Chronic Diabetes mellitus with complications (20 sources) Type II diabetes mellitus uncontrolled; Translations: [Type 2 diabetes mellitus with hyperglycemia] Onset: 10-03-2024 Chronic Diabetes mellitus without complication (16 sources) Diabetes mellitus; Translations: [Type 2 diabetes mellitus without complications] 12-19-2014 Chronic Disorders of lipid metabolism (20 sources) Hyperlipidemia; Translations: [Hyperlipidemia, unspecified] Onset: 04-21-2025 07-21-2020 Chronic Esophageal disorders (15 sources) Acid reflux; Translations: [Gastroesophageal reflux disease] 12-19-2014 Chronic Essential hypertension (20 sources) Essential hypertension; Translations: [Essential (primary) hypertension] Onset: 07-08-2025 12-19-2014 Chronic Comment on above: CONTROLLED WITH MEDS Fluid and electrolyte disorders (14 sources) Hypokalemia; Translations: [Hypokalemia] 03-07-2023 Episodic Fracture of upper limb (20 sources) Fracture of triquetral bone of wrist; Translations: [Displaced fracture of triquetrum [cuneiform] bone, left wrist, initial encounter for closed fracture] Episodic Genitourinary symptoms and ill-defined conditions (19 sources) Microalbuminuria; Translations: [Proteinuria, unspecified] 02-13-2023 Episodic Immunity disorders (20 sources) Hypergammaglobulinem ia; 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, unspecified] 07-21-2020 Chronic Immunizations and screening for infectious disease (20 sources) Contact with and (suspected) exposure to other viral communicable diseases; Translations: [Contact with or suspected exposure to other viral communicable disease] 05-18-2021 Episodic Infective arthritis and osteomyelitis (except that caused by tuberculosis or sexually transmitted di (20 sources) Acute osteomyelitis of ankle and/or foot; Translations: [Other acute osteomyelitis, unspecified ankle and foot] Onset: 10-15-2014 10-20-2016 Chronic Joint disorders and dislocations; trauma-related (20 sources) Derangement of meniscus of right knee joint; Translations: [Other meniscus derangements, unspecified medial meniscus, right knee] Chronic Malaise and fatigue (14 sources) Asthenia; Translations: [Other malaise] 03-07-2023 Episodic Mood disorders (14 sources) Depressive disorder; Translations: [Depression] 03-07-2023 Chronic Osteoarthritis (20 sources) Osteoarthritis of knee; Translations: [Arthritis] Onset: 04-25-2016 05-04-2016 Chronic Other bone disease and musculoskeletal deformities (9 sources) Acquired absence of other right toe(s); Translations: [Other toe(s) amputation status] 03-20-2023 Episodic Other connective tissue disease (20 sources) History of total knee arthroplasty; Translations: [Presence of left artificial knee joint] 01-25-2021 Chronic Other connective tissue disease (1 source) History of left total knee replacement; Translations: [Presence of left artificial knee joint] 01-25-2021 Chronic Other connective tissue disease (20 sources) Pain in lower limb; Translations: [Pain in right leg] 01-25-2021 Episodic Other connective tissue disease (1 source) Bursitis of shoulder 12-19-2014 Episodic Comment on above: Right Other connective tissue disease (1 source) Fibromyositis 12-19-2014 Episodic Other connective tissue disease (7 sources) Achilles degeneration; Translations: [Other specified disorders of synovium and tendon, other site] 05-30-2024 Episodic Other connective tissue disease (7 sources) Left achilles tendonitis; Translations: [Achilles tendinitis, left leg] 01-26-2024 Episodic Other connective tissue disease (1 source) Pain in bilateral legs; Translations: [Pain in right leg] 01-25-2021 Episodic Other diseases of bladder and urethra (2 sources) Overactive bladder; Translations: [Overactive bladder] Onset: 02-07-2025 Chronic Other endocrine disorders (1 source) [place]ink[place]'s syndrome, unspecified; Translations: [[place]ink[place]'s syndrome, unspecified] Onset: 07-08-2025 Chronic Other hereditary and degenerative nervous system conditions (1 source) Restless legs 07-09-2015 Chronic Other injuries and conditions due to external causes (7 sources) Local infection of wound; Translations: [Other injury of unspecified body region, initial encounter] 05-20-2024 Episodic Other nervous system disorders (15 sources) Neuropathy; Translations: [Polyneuropathy, unspecified] 02-13-2023 Chronic Other nervous system disorders (7 sources) Polyneuropathy, unspecified; Translations: [Mononeuritis of unspecified site] 02-13-2023 Chronic Other nervous system disorders (20 sources) Difficulty balancing when standing; Translations: [Other abnormalities of gait and mobility] 05-18-2021 Episodic Other nervous system disorders (7 sources) Calcaneal gait; Translations: [Other abnormalities of gait and mobility] 01-26-2024 Episodic Other nervous system disorders (7 sources) Acute postoperative pain; Translations: [Other acute postprocedural pain] 01-26-2024 Episodic Other non-traumatic joint disorders (20 sources) Pain in right knee; Translations: [Mechanical pain of right knee] Episodic Other non-traumatic joint disorders (1 source) Wrist joint pain; Translations: [Pain in unspecified wrist] Onset: 04-05-2022 Episodic Other nutritional; endocrine; and metabolic disorders (2 sources) Morbid obesity; Translations: [Morbid (severe) obesity due to excess calories] Onset: 10-19-2016 10-20-2016 Chronic Other nutritional; endocrine; and metabolic disorders (20 sources) Body mass index 40+ - severely obese; Translations: [Morbid (severe) obesity due to excess calories] 07-21-2020 Chronic Other nutritional; endocrine; and metabolic disorders (20 sources) Obesity; Translations: [Obesity, unspecified] 07-13-2022 Chronic Other nutritional; endocrine; and metabolic disorders (13 sources) Obesity, unspecified; Translations: [Obesity, unspecified] Chronic Other upper respiratory infections (20 sources) Acute sinusitis; Translations: [Acute sinusitis, unspecified] 05-18-2021 Episodic Peripheral and visceral atherosclerosis (13 sources) Peripheral vascular disease; Translations: [Peripheral vascular disease, unspecified] 10-19-2023 Chronic Residual codes; unclassified (1 source) Sleep apnea 12-19-2014 Chronic Residual codes; unclassified (1 source) Edema of lower extremity 12-19-2014 Episodic Comment on above: R>L Residual codes; unclassified (12 sources) Insomnia; Translations: [Insomnia, unspecified] 03-07-2023 Episodic Residual codes; unclassified (2 sources) Insomnia, unspecified; Translations: [Insomnia, unspecified] 03-20-2023 Episodic Residual codes; unclassified (1 source) Chills (without fever); Translations: [Chills (without fever)] Onset: 06-03-2025 Episodic Spondylosis; intervertebral disc disorders; other back problems (20 sources) Lumbar radiculopathy; Translations: [Radiculopathy, lumbar region] Episodic Sprains and strains (7 sources) Partial division, tendo calcaneus (Achilles tendon); Translations: [Strain of left Achilles tendon, initial encounter] 04-13-2024 Episodic Superficial injury; contusion (20 sources) Contusion of right knee, initial encounter; Translations: [Contusion of upper limb] Onset: 04-25-2016 05-04-2016 Episodic Thyroid disorders (20 sources) Goiter; Translations: [Non-toxic multinodular goiter] Onset: 07-08-2025 05-22-2014 Chronic Unclassified (1 source) Cough, unspecified; Translations: [Cough, unspecified] Onset: 04-30-2025 Past or Other Problems Problem Classification Problem Date Documented Da te Episodic/Chronic Complication of device; implant or graft (15 sources) Skin graft failure; Translations: [Skin graft (allograft) (autograft) failure] Onset: 11-18-2024 08-31-2024 Episodic Complications of surgical procedures or medical care (8 sources) Wound dehiscence; Translations: [Disruption of wound, unspecified, initial encounter] Onset: 01-27-2025 04-13-2024 Episodic Influenza (2 sources) Influenza due to Influenza A virus; Translations: [Influenza due to identified novel influenza A virus with other respiratory manifestations] Onset: 11-28-2016 11-29-2016 Episodic Open wounds of extremities (20 sources) Open wound of toe with complication; Translations: [Disorder of ankle] Onset: 09-10-2014 09-10-2014 Episodic Comment on above: Healed 18 November 2024 Other connective tissue disease (1 source) Achilles tendinitis, left leg; Translations: [Achilles tendinitis, left leg] Onset: 01-27-2025 Episodic Other gastrointestinal disorders (2 sources) Diarrhea; Translations: [Diarrhea, unspecified] Onset: 11-10-2016 11-10-2016 Episodic Other injuries and conditions due to external causes (1 source) Other injury of unspecified body region, initial encounter; Translations: [Other injury of unspecified body region, initial encounter] Onset: 01-27-2025 Episodic Other lower respiratory disease (2 sources) Cough; Translations: [Cough] Onset: 11-28-2016 11-28-2016 Episodic Other non-traumatic joint disorders (2 sources) Knee pain; Translations: [Pain in right knee] Onset: 04-25-2016 04-25-2016 Episodic Other nutritional; endocrine; and metabolic disorders (2 sources) H/O: diabetes mellitus; Translations: [Personal history of other endocrine, nutritional and metabolic disease] Onset: 07-13-2016 07-25-2016 Episodic Other screening for suspected conditions (not mental disorders or infectious disease) (20 sources) Echocardiogram abnormal; Translations: [Abnormal findings on diagnostic imaging of heart and coronary circulation] Onset: 10-26-2024 07-21-2020 Episodic Skin and subcutaneous tissue infections (20 sources) Abscess of skin AND/OR subcutaneous tissue; Translations: [Cellulitis of neck] Onset: 09-10-2014 09-17-2014 Episodic Skull and face fractures (1 source) Closed fracture of nasal bones; Translations: [Closed fracture of nasal bone, initial encounter] Episodic Unclassified (7 sources) Disruption of internal operation (surgical) wound, not elsewhere classified, initial encounter 04-13-2024 Results Test Name Value Interpretation Reference Range Facility Influenza virus A and B and SARS-CoV-2 (COVID-19) and Respiratory syncytial virus RNAOrdered By: Gulshan Early on 05-20-2025 SARS-CoV-2 (COVID-19) RNA SEEMA+probe Ql (Unsp spec) SARS-CoV-2 (COVID 19 PCR) Abnormal [facility] Influenza virus A and B and SARS-CoV-2 (COVID-19) and Respiratory syncytial virus RNAOrdered By: Gulshan Early on 04-25-2025 SARS-CoV-2 (COVID-19) RNA SEEMA+probe Ql (Unsp spec) [facility] Absolute lymphocyte countOrd ered By: Gulshan Early on 04-01-2025 Lymphocytes Auto (Unsp spec) [#/Vol] 2.51 10*3/uL 0.83-4.51 [facility] Absolute neutrophil countOrd ered By: Gulshan Early on 04-01-2025 Neutrophils (Bld) [#/Vol] 4.5 10*3/uL 2.0-7.7 [facility] Anion gap in Serum or Plasma Ordered By: Gulshan Early on 04-01-2025 Anion gap [Moles/Vol] 14 [facility] count a s percentage of total leukocytesOrdered By: Gulshan Early on 04-01-2025 Lymphocytes/100 WBC Auto (Unsp spec) 32.1 % 19-41 [facility] BUN/creatinine ratioOrdered By: Gulshan Early 04-01-2025 Urea nitrogen/Creatinine [Mass ratio] 19.7 mg/mg 10-20 [facility] Basophil percentageOrdered B y: Gulshan Early on 04-01-2025 Basophils/100 WBC (Bld) 0.5 % 0-1 [facility] Bilirubin, totalOrdered By: Gulshan Early on 04-01-2025 Bilirubin [Mass/Vol] 0.36 mg/dL 0.00-1.30 [facility] Calculated very low density lipoprotein (VLDL) cholesterol measurementOrdered By: Gulshan Early 04-01-2025 Calculated very low density lipoprotein (VLDL) cholesterol measurement 41 mg/dL High 5-40 [facility] Carbon dioxide, total [Moles /volume] in Central venous bloodOrdered By: Gulshan Early 04-01-2025 CO2 [Moles/Vol] 26.8 mmol/L 21.0-32.0 [facility] Chloride assayOrdered By: Miko Early on 04-01-2025 Chloride [Moles/Vol] 103 mmol/L 98-108 [facility] Eosinophil percentageOrdered By: Gulshan Early 04-01-2025 Eosinophils/100 WBC (Bld) 2.3 % 0-5 [facility] Erythrocyte distribution wid th ratioOrdered By: Gulshan Early 04-01-2025 Erythrocyte distribution width (RBC) [Ratio] 16.0 % High 11.6-14.6 [facility] Erythrocyte distribution wid th standard deviationOrdered By: Gulshan Early 04-01-2025 Erythrocyte distribution width (RBC) [Ratio] 49.9 fl High 35.1-43.9 [facility] Glomerular filtration rate ( GFR) estimation/1.73 sq m using serum, plasma, or whole bOrdered By: Gulshan Early on 04-01-2025 GFR/1.73 sq M.predicted among non-blacks MDRD (S/P/Bld) [Vol rate/Area] 99 mL/min/{1.73_m2} >60 [facility] Comment on above: mL/min/1.73m2 CKD-EP I Creatinine Equation (2020) Hematocrit Auto (Bld) [Volum e fraction]Ordered By: Gulshan Early on 04-01-2025 Hematocrit (Bld) [Volume fraction] 40.6 % 37-47 [facility] Hemoglobin A1c percentageOrd ered By: Gulshan Earyl on 04-01-2025 HbA1c (Bld) [Mass fraction] 7.0 % High <5.7 [facility] Comment on above: Normal < 5.7 % Predi abetic 5.7 - 6.4 % Diabetic >or= 6.5 % Please note range changes. Hemoglobin measurementOrdere d By: Gulshan Early on 04-01-2025 Hemoglobin (Bld) [Mass/Vol] 12.7 g/dL 12.0-15.0 [facility] Immature granulocytes/100 WB C Auto (Bld)Ordered By: Gulshan Early 04-01-2025 Immature granulocytes/100 WBC (Bld) 0.300 % 0.0-0.9 [facility] Comment on above: IG% - Immature Granu locytes (promyelocytes, myelocytes and metamyelocytes) > 1% indicates that a LEFT SHIFT is Present. LDL calc ser/plasOrdered By: Gulshan Early 04-01-2025 Cholesterol in LDL [Mass/Vol] 34 mg/dL [facility] Comment on above: Vwkukabxmm=522-358 m g/dL & Higher Epld=592 mg/dL or greater Laboratory - Chemistry and C hemistry - challengeOrdered By: Gulshan Early 04-01-2025 AST [Catalytic activity/Vol] 28 U/L <32 [facility] MCV (mean corpuscular volume ) determinationOrdered By: Gulshan Early 04-01-2025 MCV (RBC) [Entitic vol] 84.8 fL 81-99 [facility] Mean corpuscular hemoglobin (MCH) determinationOrdered By: Gulshan Early 04-01-2025 MCH (RBC) [Entitic mass] 26.5 pg Low 27.0-32.0 [facility] Mean corpuscular hemoglobin concentration (MCHC) determinationOrdered By: Gulshan Early 04-01-2025 MCHC (RBC) [Mass/Vol] 31.3 g/dL Low 32-36 [facility] Mean platelet volume determi nationOrdered By: Gulshan Early on 04-01-2025 Platelet mean volume (Bld) [Entitic vol] 9.3 fL 6.2-12.0 [facility] Monocyte percentageOrdered B y: Gulshan Early on 04-01-2025 Monocytes/100 WBC (Bld) 7.9 % 0-10 [facility] Neutrophil percentageOrdered By: Gulshan Early on 04-01-2025 Neutrophils/100 WBC (Bld) 56.9 % 47-70 [facility] Nucleated red blood cell per centageOrdered By: Gulshan Early on 04-01-2025 Nucleated RBC/100 WBC (Bld) [Ratio] 0 % 0-5 [facility] Platelet countOrdered By: Miko Early on 04-01-2025 Platelets (Bld) [#/Vol] 303 10*3/uL 150-450 [facility] Potassium measurement (mass/ volume)Ordered By: Gulshan Early on 04-01-2025 Potassium (Unsp spec) [Mass/Vol] 4.1 mmol/L 3.3-5.1 [facility] RBC Auto (Bld) [#/Vol]Ordere d By: Gulshan Early on 04-01-2025 RBC (Bld) [#/Vol] 4.79 10*6/uL 4.2-5.4 [facility] Screening total cholesterol/ high density lipoprotein (HDL) cholesterol ratioOrdered By: Gulshan Early 04-01-2025 Cholesterol.total/Cholest beatrice in HDL [Mass ratio] 2.47 {ratio} [facility] Serum creatinine measurement (mass/volume)Ordered By: Gulshan Early on 04-01-2025 Creatinine [Mass/Vol] 0.70 mg/dL 0.70-1.20 [facility] Serum globulin measurementOr dered By: Gulshan Early 04-01-2025 Globulin (S) [Mass/Vol] 3.5 g/dL 2.2-4.2 [facility] Serum glucose measurement (m ass/volume)Ordered By: Gulshan Early on 04-01-2025 Glucose [Mass/Vol] 123 mg/dL High 70-[address] [facility] Serum or plasma alanine ortiz otransferase (ALT) measurementOrdered By: Gulshan Sharath 04-01-2025 ALT [Catalytic activity/Vol] 24 U/L <35 [facility] Serum or plasma albumin phani urement (mass/volume)Ordered By: Gulshan Early 04-01-2025 Albumin [Mass/Vol] 4.4 g/dL 3.4-4.[address] [facility] Serum or plasma albumin/glob ulin mass ratioOrdered By: Gulshan Early 04-01-2025 Albumin/Globulin [Mass ratio] 1.3 {ratio} 0.9-2.4 [facility] Serum or plasma alkaline linnette sphatase measurementOrdered By: Gulshan Sharath 04-01-2025 ALP [Catalytic activity/Vol] 93 U/L 35-104 [facility] Serum or plasma calcium phani urement (mass/volume)Ordered By: Gulshan Sharath 04-01-2025 Calcium [Mass/Vol] 8.9 mg/dL 7.6-11.[address] [facility] Serum or plasma cholesterol in HDL measurement (mass/volume)Ordered By: Gulshan Sharath 04-01-2025 Cholesterol in HDL [Mass/Vol] 51 mg/dL >40 [facility] Comment on above: National Cholesterol Education Program (NCEP) guidelines:<40 mg/dL: Low HDL-cholesterol (major risk factor for CHD)>= 60 mg/dL: High HDL-cholesterol (negative risk factor for CHD)HDL-cholesterol is affected by a number of factors, e.g. smoking, exercise, hormones, sex and age. Serum or plasma cholesterol measurement (mass/volume)Ordered By: Gulshan Early 04-01-2025 Cholesterol [Mass/Vol] 126 mg/dL <201 [facility] Comment on above: Cholesterol level, D esirable <200 mg/dLBorderline high cholesterol 200-239 mg/dLHigh cholesterol >=240 mg/dLRecommendations of the NCEP Adult Treatment Panel for the following risk-cutoff thresholds for the [place] population. Serum or plasma urea nitroge n measurement (mass/volume)Ordered By: Gulshan Early 04-01-2025 Urea nitrogen [Mass/Vol] 14 mg/dL 4-19 [facility] Sodium levelOrdered By: Gulshan Early 04-01-2025 Sodium [Moles/Vol] 144 mmol/L 133-[address] [facility] TSH DL <= 0.005 mIU/L QnOrde red By: Gulshan Early on 04-01-2025 TSH Qn 2.640 uIU/mL 0.300-4.20 0 [facility] Total proteinOrdered By: Gulshan Early on 04-01-2025 Protein [Mass/Vol] 7.9 g/dL 5.9-8.[address] [facility] Triglycerides measurementOrd ered By: Gulshan Early on 04-01-2025 Triglyceride [Mass/Vol] 205 mg/dL High <199 [facility] Comment on above: The drugs N-Acetylcy steine and Metamizole may falsely depress this assay. Normal range: <150 mg/dLBorderline High: 150-199 mg/dLHigh: 200-499 mg/dLVery High: >500 mg/dL White blood cell (WBC) count Ordered By: Gulshan Early on 04-01-2025 WBC (Bld) [#/Vol] 7.8 10*3/uL 4.4-11.[address] [facility] Influenza virus A and B and SARS-CoV-2 (COVID-19) and Respiratory syncytial virus RNAOrdered By: Gulshan Early on 03-18-2025 SARS-CoV-2 (COVID-19) RNA SEEMA+probe Ql (Unsp spec) [facility] TSH DL <= 0.005 mIU/L QnOrde red By: Gulshan Early on 03-18-2025 TSH Qn 0.874 uIU/mL 0.300-4.20 0 [facility] Influenza virus A and B and SARS-CoV-2 (COVID-19) and Respiratory syncytial virus RNAOrdered By: Gulshan Early on 02-05-2025 SARS-CoV-2 (COVID-19) RNA SEEMA+probe Ql (Unsp spec) [facility] Absolute lymphocyte countOrd ered By: Gulshan Early on 01-02-2025 Lymphocytes Auto (Unsp spec) [#/Vol] 1.33 10*3/uL 0.83-4.51 [facility] Absolute neutrophil countOrd ered By: Gulshan Early on 01-02-2025 Neutrophils (Bld) [#/Vol] 6.2 10*3/uL 2.0-7.7 [facility] Anion gap in Serum or Plasma Ordered By: Gulshan Early on 01-02-2025 Anion gap [Moles/Vol] 16 mmol/L High 5-15 [facility] Automated lymphocyte count a s percentage of total leukocytesOrdered By: Gulshan Early on 01-02-2025 Lymphocytes/100 WBC Auto (Unsp spec) 16.8 % Low 19-41 [facility] BUN/creatinine ratioOrdered By: Gulshan Early on 01-02-2025 Urea nitrogen/Creatinine [Mass ratio] 24.3 mg/mg High 10-20 [facility] Basophil percentageOrdered B y: Gulshan Early on 01-02-2025 Basophils/100 WBC (Bld) 0.5 % 0-1 [facility] Bilirubin, totalOrdered By: Gulshan Early on 01-02-2025 Bilirubin [Mass/Vol] 0.30 mg/dL 0.00-1.30 [facility] Calculated very low density lipoprotein (VLDL) cholesterol measurementOrdered By: Gulshan Early on 01-02-2025 Calculated very low density lipoprotein (VLDL) cholesterol measurement 51 mg/dL High 5-40 [facility] Carbon dioxide, total [Moles /volume] in Central venous bloodOrdered By: Gulshan Early on 01-02-2025 CO2 [Moles/Vol] 22.3 mmol/L 21.0-32.0 [facility] Chloride assayOrdered By: Miko Early on 01-02-2025 Chloride [Moles/Vol] 97 mmol/L Low 98-108 [facility] Eosinophil percentageOrdered By: Gulshan Early on 01-02-2025 Eosinophils/100 WBC (Bld) 0.0 % 0-5 [facility] Erythrocyte distribution wid th ratioOrdered By: Gulshan Early 01-02-2025 Erythrocyte distribution width (RBC) [Ratio] 15.0 % High 11.6-14.6 [facility] Erythrocyte distribution wid th standard deviationOrdered By: Gulshan Early on 01-02-2025 Erythrocyte distribution width (RBC) [Ratio] 45.4 fl High 35.1-43.9 [facility] Glomerular filtration rate ( GFR) estimation/1.73 sq m using serum, plasma, or whole bOrdered By: Gulshan Early on 01-02-2025 GFR/1.73 sq M.predicted among non-blacks MDRD (S/P/Bld) [Vol rate/Area] 83 mL/min/{1.73_m2} >60 [facility] Comment on above: mL/min/1.73m2 CKD-EP I Creatinine Equation (2020) Hematocrit Auto (Bld) [Volum e fraction]Ordered By: Gulshan Early on 01-02-2025 Hematocrit (Bld) [Volume fraction] 38.1 % 37-47 [facility] Hemoglobin A1c percentageOrd ered By: Gulshan Early 01-02-2025 HbA1c (Bld) [Mass fraction] 8.2 % High <5.7 [facility] Comment on above: Normal < 5.7 % Predi abetic 5.7 - 6.4 % Diabetic >or= 6.5 % Please note range changes. Hemoglobin measurementOrdere d By: Gulshan Early 01-02-2025 Hemoglobin (Bld) [Mass/Vol] 12.1 g/dL 12.0-15.0 [facility] Immature granulocytes/100 WB C Auto (Bld)Ordered By: Gulshan Early 01-02-2025 Immature granulocytes/100 WBC (Bld) 1.300 % High 0.0-0.9 [facility] Comment on above: IG% - Immature Granu locytes (promyelocytes, myelocytes and metamyelocytes) > 1% indicates that a LEFT SHIFT is Present. LDL calc ser/plasOrdered By: Gulshan Early 01-02-2025 Cholesterol in LDL [Mass/Vol] 45 mg/dL [facility] Comment on above: Svvazxqcjc=[id number] m g/dL & Higher Aipa=225 mg/dL or greater Laboratory - Chemistry and C hemistry - challengeOrdered By: Gulshan Early 01-02-2025 AST [Catalytic activity/Vol] 32 U/L <32 [facility] MCV (mean corpuscular volume ) determinationOrdered By: Gulshan Early 01-02-2025 MCV (RBC) [Entitic vol] 84.5 fL 81-99 [facility] Mean corpuscular hemoglobin (MCH) determinationOrdered By: Gulshan Sharath 01-02-2025 MCH (RBC) [Entitic mass] 26.8 pg Low 27.0-32.0 [facility] Mean corpuscular hemoglobin concentration (MCHC) determinationOrdered By: Gulshan Early on 01-02-2025 MCHC (RBC) [Mass/Vol] 31.8 g/dL Low 32-36 [facility] Mean platelet volume determi nationOrdered By: Gulshan Early on 01-02-2025 Platelet mean volume (Bld) [Entitic vol] 9.7 fL 6.2-12.0 [facility] Monocyte percentageOrdered B y: Gulshan Early on 01-02-2025 Monocytes/100 WBC (Bld) 3.7 % 0-10 [facility] Neutrophil percentageOrdered By: Gulshan Early on 01-02-2025 Neutrophils/100 WBC (Bld) 77.7 % High 47-70 [facility] Nucleated red blood cell per centageOrdered By: Gulshan Early on 01-02-2025 Nucleated RBC/100 WBC (Bld) [Ratio] 0.4 % 0-5 [facility] Platelet countOrdered By: Miko Early on 01-02-2025 Platelets (Bld) [#/Vol] 383 10*3/uL 150-450 [facility] Potassium measurement (mass/ volume)Ordered By: Gulshan Early 01-02-2025 Potassium (Unsp spec) [Mass/Vol] 4.9 mmol/L 3.3-5.1 [facility] RBC Auto (Bld) [#/Vol]Ordere d By: Gulshan Early on 01-02-2025 RBC (Bld) [#/Vol] 4.51 10*6/uL 4.2-5.4 [facility] Screening total cholesterol/ high density lipoprotein (HDL) cholesterol ratioOrdered By: Gulshan Eraly 01-02-2025 Cholesterol.total/Cholest beatrice in HDL [Mass ratio] 2.75 {ratio} [facility] Serum creatinine measurement (mass/volume)Ordered By: Gulshan Early on 01-02-2025 Creatinine [Mass/Vol] 0.81 mg/dL 0.70-1.20 [facility] Serum globulin measurementOr dered By: Gulshan Early 01-02-2025 Globulin (S) [Mass/Vol] 3.6 g/dL 2.2-4.2 [facility] Serum glucose measurement (m ass/volume)Ordered By: Gulshan Early 01-02-2025 Glucose [Mass/Vol] 290 mg/dL High 70-[address] [facility] Serum or plasma alanine ortiz otransferase (ALT) measurementOrdered By: Gulshan Early 01-02-2025 ALT [Catalytic activity/Vol] 42 U/L High <35 [facility] Serum or plasma albumin phani urement (mass/volume)Ordered By: Gulshan Early 01-02-2025 Albumin [Mass/Vol] 4.4 g/dL 3.4-4.[address] [facility] Serum or plasma albumin/glob ulin mass ratioOrdered By: Gulshan Early 01-02-2025 Albumin/Globulin [Mass ratio] 1.2 {ratio} 0.9-2.4 [facility] Serum or plasma alkaline linnette sphatase measurementOrdered By: Gulshan Early 01-02-2025 ALP [Catalytic activity/Vol] 94 U/L 35-104 [facility] Serum or plasma calcium phani urement (mass/volume)Ordered By: Gulshan Early 01-02-2025 Calcium [Mass/Vol] 9.1 mg/dL 7.6-11.[address] [facility] Serum or plasma cholesterol in HDL measurement (mass/volume)Ordered By: Gulshan Sharath 01-02-2025 Cholesterol in HDL [Mass/Vol] 55 mg/dL >40 [facility] Comment on above: National Cholesterol Education Program (NCEP) guidelines:<40 mg/dL: Low HDL-cholesterol (major risk factor for CHD)>= 60 mg/dL: High HDL-cholesterol (negative risk factor for CHD)HDL-cholesterol is affected by a number of factors, e.g. smoking, exercise, hormones, sex and age. Serum or plasma cholesterol measurement (mass/volume)Ordered By: Gulshan Early 01-02-2025 Cholesterol [Mass/Vol] 152 mg/dL <201 [facility] Comment on above: Cholesterol level, D esirable <200 mg/dLBorderline high cholesterol 200-239 mg/dLHigh cholesterol >=240 mg/dLRecommendations of the NCEP Adult Treatment Panel for the following risk-cutoff thresholds for the [place] population. Serum or plasma urea nitroge n measurement (mass/volume)Ordered By: Gulshan Early on 01-02-2025 Urea nitrogen [Mass/Vol] 20 mg/dL High 4-19 [facility] Sodium levelOrdered By: Gulshan Early 01-02-2025 Sodium [Moles/Vol] 136 mmol/L 133-[address] [facility] TSH DL <= 0.005 mIU/L QnOrde red By: Gulshan aErly 01-02-2025 TSH Qn 1.340 uIU/mL 0.300-4.20 0 [facility] Total proteinOrdered By: Gulshan Early 01-02-2025 Protein [Mass/Vol] 8.0 g/dL 5.9-8.[address] [facility] Triglycerides measurementOrd ered By: Gulshan Early 01-02-2025 Triglyceride [Mass/Vol] 257 mg/dL High <199 [facility] Comment on above: The drugs N-Acetylcy steine and Metamizole may falsely depress this assay. Normal range: <150 mg/dLBorderline High: 150-199 mg/dLHigh: 200-499 mg/dLVery High: >500 mg/dL White blood cell (WBC) count Ordered By: Gulshan Early on 01-02-2025 WBC (Bld) [#/Vol] 7.9 10*3/uL 4.4-11.[address] [facility] Bilirubin Test strip Ql (U)O rdered By: Gulshan Early 12-30-2024 Bilirubin Ql (U) Negative Negative [facility] Influenza virus A and B and SARS-CoV-2 (COVID-19) and Respiratory syncytial virus RNAOrdered By: Gulshan Early 12-30-2024 SARS-CoV-2 (COVID-19) RNA SEEMA+probe Ql (Unsp spec) [facility] Ketones Test strip Ql (U)Ord ered By: Gulshan Early 12-30-2024 Ketones Ql (U) Negative Negative [facility] Microscopic analysis of urin e for red blood cells (RBC)Ordered By: Gulshan Early on 12-30-2024 Microscopic analysis of urine for red blood cells (RBC) 0-5 SEEN /hpf 0-5 [facility] Mucus LM Ql (Urine sed)Order ed By: Gulshan Early on 12-30-2024 Mucus Ql (Urine sed) 0 SEEN /hpf [facility] Nitrite Test strip Ql (U)Ord ered By: Gulshan Early on 12-30-2024 Nitrite Ql (U) Negative Negative [facility] Protein Test strip Ql (U)Ord ered By: Gulshan Early on 12-30-2024 Protein Ql (U) Negative Negative [facility] Squamous epithelial cells de tection in urine sediment by light microscopyOrdered By: Gulshan Early on 12-30-2024 Epithelial cells.squamous LM Ql (Urine sed) 0-5 SEEN /hpf 5-10 [facility] Urine clarityOrdered By: Gulshan Early on 12-30-2024 Clarity (U) Clear Clear [facility] Urine color determinationOrd ered By: Gulshan Early on 12-30-2024 Color (U) Straw Yellow [facility] Urine cultureOrdered By: Gulshan Early on 12-30-2024 Bacteria identified Cx Nom (U) Positive Abnormal [facility] Urine glucose detectionOrder ed By: Gulshan Early on 12-30-2024 Glucose Ql (U) 1000 mg/dl High Normal [facility] Urine leukocyte esterase det ection by dipstickOrdered By: Gulshan Early 12-30-2024 Leukocyte esterase Test strip Ql (U) Negative Negative [facility] Urine pHOrdered By: Gulshan Early on 12-30-2024 pH (U) 6.0 [pH] 5.0 - 8.0 [facility] Urine sediment bacteria coun t by microscopy (number/high power field)Ordered By: Gulshan Early on 12-30-2024 Bacteria LM.HPF (Urine sed) [#/Area] 0 /[HPF] None Seen [facility] Urine specific gravity measu rementOrdered By: Gulshan Early on 12-30-2024 Specific gravity (U) [Rel density] 1.010 1.002-1.03 0 [facility] Urine urobilinogen measureme ntOrdered By: Gulshan Early on 12-30-2024 Urobilinogen Ql (U) Normal mg/dl Normal [facility] White blood cell countOrdere d By: Gulshan Early on 04-21-2025 White blood cell count 0-5 SEEN /hpf 0-5 [facility] Influenza virus A and B and SARS-CoV-2 (COVID-19) and Respiratory syncytial virus RNAOrdered By: Gulshan Early on 11-21-2024 SARS-CoV-2 (COVID-19) RNA SEEMA+probe Ql (Unsp spec) [facility] TSH DL <= 0.005 mIU/L QnOrde red By: Gulshan Early on 11-21-2024 Thyroid Stimulating Hormone (TSH) 0.110 uIU/mL Low 0.300-4.20 0 [facility] TSH Qn 0.110 uIU/mL Low 0.300-4.20 0 [facility] Absolute neutrophil countOrd ered By: Gulshan Early on 10-04-2024 Neutrophils (Bld) [#/Vol] 1.8 10*3/uL Low 2.0-7.7 [facility] Albumin to globulin ratioOrd ered By: Gulshan Early on 10-04-2024 Albumin/Globulin [Mass ratio] 0.8 {ratio} Low 0.9-2.4 [facility] Basophil percentageOrdered B y: Gulshan Early on 10-04-2024 Basophils/100 WBC (Bld) 1.3 % High 0-1 [facility] Bilirubin, totalOrdered By: Gulshan Early on 10-04-2024 Bilirubin [Mass/Vol] 0.50 mg/dL 0.20-1.00 [facility] Comment on above: For patients on eltr ombopag therapy, use of Dimension Loman TBIL is not recommended. Blood urea nitrogen (BUN)/cr eatinine ratioOrdered By: Gulshan Early on 10-04-2024 Urea nitrogen/Creatinine [Mass ratio] 18.1 mg/mg 10-20 [facility] Carbon dioxide measurementOr dered By: Gulshan Early on 10-04-2024 CO2 [Moles/Vol] 29.0 mmol/L 21.0-32.0 [facility] Chloride measurementOrdered By: Gulshan Early on 10-04-2024 Chloride [Moles/Vol] 105 mmol/L 98-107 [facility] Eosinophil percentageOrdered By: Gulshan Early on 10-04-2024 Eosinophils/100 WBC (Bld) 7.7 % High 0-5 [facility] Erythrocyte distribution wid th ratioOrdered By: Gulshan Early on 10-04-2024 Erythrocyte distribution width (RBC) [Ratio] 15.2 % High 11.6-14.6 [facility] Erythrocyte distribution wid th standard deviationOrdered By: Gulshan Early on 10-04-2024 Erythrocyte distribution width (RBC) [Entitic vol] 47.9 fL High 35.1-43.[address] [facility] Estimated glomerular filtrat ion rate (GFR) AmericanOrdered By: Gulshan Early on 10-04-2024 Estimated GFR (MDRD) Amer 90 mL/min >60 [facility] Comment on above: GFR Calc Glomerular filtration rate ( GFR) estimationOrdered By: Gulshan Early on 10-04-2024 Estimated GFR (MDRD) Non-Af Amer 74 mL/min >60 [facility] Comment on above: Non- GFR Calc Glucose measurementOrdered B y: Gulshan Early on 10-04-2024 Glucose [Mass/Vol] 160 mg/dL High 74-[address] [facility] Comment on above: Fasting Glucose resu lt greater than or equal to 126 mg/dL suggests DIABETES MELLITUS per A.D.A. criteria. Hematocrit Auto (Bld) [Volum e fraction]Ordered By: Gulshan Early 10-04-2024 Hematocrit (Bld) [Volume fraction] 39.5 % 37-47 [facility] Hemoglobin A1c percentageOrd ered By: Gulshan Early 10-04-2024 HbA1c (Bld) [Mass fraction] 6.9 % High 3.8-5.6 [facility] Comment on above: Normal < 5.7 % Predi abetic 5.7 - 6.4 % Diabetic >or= 6.5 % Please note range changes. Hemoglobin measurementOrdere d By: Gulshan Early 10-04-2024 Hemoglobin (Bld) [Mass/Vol] 12.1 g/dL 12.0-15.0 [facility] High density lipoprotein (HD L) measurementOrdered By: Gulshan Early 10-04-2024 Cholesterol in HDL [Mass/Vol] 49 mg/dL >40 [facility] Comment on above: The drugs N-Acetylcy steine and Metamizole may falsely depress this assay. Reference Range HDL <40 mg/dL Low HDL Cholesterol HDL >or= 60 mg/dL High HDL Cholesterol Immature granulocytes/100 WB C Auto (Bld)Ordered By: Gulshan Early on 10-04-2024 Immature granulocytes/100 WBC (Bld) 0.200 % 0.0-0.9 [facility] Comment on above: IG% - Immature Granu locytes (promyelocytes, myelocytes and metamyelocytes) > 1% indicates that a LEFT SHIFT is Present. Laboratory - Chemistry and C hemistry - challengeOrdered By: Gulshan Early on 10-04-2024 AST [Catalytic activity/Vol] 18 U/L 15-37 [facility] Low density lipoprotein (LDL ) cholesterol measurementOrdered By: Gulshan Early on 10-04-2024 Cholesterol in LDL [Mass/Vol] 14 mg/dL 0-130 [facility] Lymphocytes Auto (Unsp spec) [#/Vol]Ordered By: Gulshan Early on 10-04-2024 Lymphocytes (Bld) [#/Vol] 2.76 10*3/uL 0.83-4.5 1 [facility] Lymphocytes/100 WBC Auto (Un sp spec)Ordered By: Gulshan Early on 10-04-2024 Lymphocytes/100 WBC (Bld) 49.7 % High 19-41 [facility] MCV (mean corpuscular volume ) determinationOrdered By: Gulshan Early 10-04-2024 MCV (RBC) [Entitic vol] 86.4 fL 81-99 [facility] Mean corpuscular hemoglobin (MCH) determinationOrdered By: Gulshan Early on 10-04-2024 MCH (RBC) [Entitic mass] 26.5 pg Low 27.0-32.0 [facility] Mean corpuscular hemoglobin concentration (MCHC) determinationOrdered By: Gulshan Early 10-04-2024 MCHC (RBC) [Mass/Vol] 30.6 g/dL Low 32-36 [facility] Mean platelet volume determi nationOrdered By: Gulshan Early on 10-04-2024 Platelet mean volume (Bld) [Entitic vol] 9.8 fL 6.2-12.0 [facility] Monocyte percentageOrdered B y: Gulshan Early on 10-04-2024 Monocytes/100 WBC (Bld) 9.0 % 0-10 [facility] Neutrophil percentageOrdered By: Gulshan Early on 10-04-2024 Neutrophils/100 WBC (Bld) 32.1 % Low 47-70 [facility] Nucleated red blood cell per centageOrdered By: Gulshan Early on 10-04-2024 Nucleated RBC/100 WBC (Bld) [Ratio] 0 % 0-5 [facility] Platelet countOrdered By: Miko Early on 10-04-2024 Platelets (Bld) [#/Vol] 259 10*3/uL 150-450 [facility] Potassium measurementOrdered By: Guslhan Early on 10-04-2024 Potassium [Moles/Vol] 3.7 mmol/L 3.5-5.1 [facility] RBC Auto (Bld) [#/Vol]Ordere d By: Gulshan Early on 10-04-2024 RBC (Bld) [#/Vol] 4.57 10*6/uL 4.2-5.4 [facility] Serum anion gap measurementO rdered By: Gulshan Early on 10-04-2024 Anion gap [Moles/Vol] 6 mmol/L 5-15 [facility] Serum globulin measurementOr dered By: Gulshan Early on 10-04-2024 Globulin (S) [Mass/Vol] 4.4 g/dL High 2.2-4.2 [facility] Serum or plasma alanine ortiz otransferase (ALT) measurementOrdered By: Gulshan Early 10-04-2024 ALT [Catalytic activity/Vol] 29 U/L 13-56 [facility] Serum or plasma albumin phani urement (mass/volume)Ordered By: Gulshan Early 10-04-2024 Albumin [Mass/Vol] 3.6 g/dL 3.2-5.[address] [facility] Serum or plasma alkaline linnette sphatase measurementOrdered By: Gulshna Early 10-04-2024 ALP [Catalytic activity/Vol] 94 U/L 45-117 [facility] Serum or plasma calcium phani urement (mass/volume)Ordered By: Gulshan Early 10-04-2024 Calcium [Mass/Vol] 8.5 mg/dL 8.5-10.[address] [facility] Serum or plasma cholesterol measurement (mass/volume)Ordered By: Guslhan Early on 10-04-2024 Cholesterol [Mass/Vol] 129 mg/dL <200 [facility] Comment on above: <200 mg/dL Desirable 200-240 mg/dL Borderline >240 mg/dL High Risk Serum or plasma creatinine m easurement (mass/volume)Ordered By: Gulshan Early on 10-04-2024 Creatinine [Mass/Vol] 0.83 mg/dL 0.55-1.02 [facility] Comment on above: The validity of the calculated GFR & GFRAA in patients over 70 years has not been determined. Clinical correlation is essential. Serum or plasma urea nitroge n measurement (mass/volume)Ordered By: Gulshan Early on 10-04-2024 Urea nitrogen [Mass/Vol] 15 mg/dL 7-18 [facility] Sodium levelOrdered By: Gulshan Early on 10-04-2024 Sodium [Moles/Vol] 139 mmol/L 136-[address] [facility] TSH QnOrdered By: Gulshan Early o n 10-04-2024 Thyroid Stimulating Hormone (TSH) 4.510 uIU/mL High 0.358-3.74 0 [facility] Total proteinOrdered By: Gulshan Early on 10-04-2024 Protein [Mass/Vol] 8.0 g/dL 6.4-8.[address] [facility] Triglycerides measurementOrd ered By: Gulshan Early on 10-04-2024 Triglyceride [Mass/Vol] 331 mg/dL High <199 [facility] Comment on above: The drugs N-Acetylcy steine and Metamizole may falsely depress this assay.Serum Triglycerides Reference Interval Normal <150 mg/dL Borderline high 150 - 199 mg/dL High 200 - 499 mg/dL Very High > or = 500 mg/dL Very low density lipoprotein (VLDL) cholesterol measurementOrdered By: Gulshan Early on 10-04-2024 VLDL Cholesterol 66 mg/dL High 5-40 [facility] White blood cell (WBC) count Ordered By: Gulshan Early on 10-04-2024 WBC (Bld) [#/Vol] 5.6 10*3/uL 4.4-11.[address] [facility] deOrdered By: Victorino Solano on 09-24-2024 Bedside Glucose (Misc Panel) 109 mg/dL High 74-106 [facility] Comment on above: MANAGEMENT OF PATIEN T CARE PER NURSING PROTOCOL Glucose measurement at bedsi deOrdered By: Victorino Solano on 09-09-2024 Bedside Glucose (Misc Panel) 143 mg/dL High 74-106 [facility] Comment on above: MANAGEMENT OF PATIEN T CARE PER NURSING PROTOCOL Random urine microalbumin me asurementOrdered By: Gulshan Early on 08-28-2024 Urine Random Microalbumin 48.7 mg/L NO RANGE EST. [facility] Urine albumin/creatinine rat io for detection of microalbuminuriaOrdered By: Gulshan Early on 08-28-2024 Urine Microalbumin/Creatinine Ratio 84.8 mg/g CRE High <30 [facility] Urine creatinine measurement (mass/volume)Ordered By: Gulshan Early on 08-28-2024 Creatinine (U) [Mass/Vol] 57.40 mg/dL NO RANGE EST. [facility] deOrdered By: Victorino Solano on 08-23-2024 Bedside Glucose (Misc Panel) 134 mg/dL High 74-106 [facility] Comment on above: MANAGEMENT OF PATIEN T CARE PER NURSING PROTOCOL Absolute lymphocyte countOrd ered By: Gulshan Early on 12-28-2023 Lymphocytes Auto (Unsp spec) [#/Vol] 1.94 10*3/uL 0.83-4.51 [facility] Automated lymphocyte count a s percentage of total leukocytesOrdered By: Gulshan Early on 12-28-2023 Lymphocytes/100 WBC Auto (Unsp spec) 32.7 % 19-41 [facility] Basophil percentageOrdered B y: Gulshan Early on 12-28-2023 Basophils/100 WBC (Bld) 0.7 % 0-1 [facility] Bilirubin [Mass/Vol] 0.40 mg/dL 0.20-1.00 [facility] Comment on above: For patients on eltr ombopag therapy, use of Dimension Loman TBIL is not recommended. Chloride [Moles/Vol] 106 mmol/L 98-107 [facility] Cholesterol [Mass/Vol] 114 mg/dL <200 [facility] Comment on above: <200 mg/dL Desirable 200-240 mg/dL Borderline >240 mg/dL High Risk Eosinophils/100 WBC (Bld) 2.0 % 0-5 [facility] Glucose [Mass/Vol] 103 mg/dL 74-[address] [facility] Comment on above: Fasting Glucose resu lt from 100 to 125 mg/dL suggests IMPAIRED HOMEOSTASIS per A.D.A. criteria. Hemoglobin (Bld) [Mass/Vol] 11.9 g/dL 12.0-15.0 [facility] Monocytes/100 WBC (Bld) 7.8 % 0-10 [facility] Neutrophils (Bld) [#/Vol] 3.4 10*3/uL 2.0-7.7 [facility] Neutrophils/100 WBC (Bld) 56.5 % 47-70 [facility] Potassium [Moles/Vol] 4.2 mmol/L 3.5-5.1 [facility] Protein [Mass/Vol] 7.4 g/dL 6.4-8.[address] [facility] Sodium [Moles/Vol] 139 mmol/L 136-[address] [facility] Triglyceride [Mass/Vol] 167 mg/dL <199 [facility] Comment on above: The drugs N-Acetylcy steine and Metamizole may falsely depress this assay.Serum Triglycerides Reference Interval Normal <150 mg/dL Borderline high 150 - 199 mg/dL High 200 - 499 mg/dL Very High > or = 500 mg/dL WBC (Bld) [#/Vol] 5.9 10*3/uL 4.4-11.[address] [facility] Determination of erythrocyte mean corpuscular volume (MCV)Ordered By: Gulshan Early on 12-28-2023 MCV (RBC) [Entitic vol] 87.1 fL 81-99 [facility] Erythrocyte distribution wid th ratioOrdered By: [facility] Erythrocyte distribution width (RBC) [Ratio] 14.9 % 11.6-14.6 [facility] Erythrocyte distribution wid th standard deviationOrdered By: Gulshan Early on 12-28-2023 Erythrocyte distribution width (RBC) [Entitic vol] 47.8 fL 35.1-43.[address] [facility] Hematocrit Auto (Bld) [Volum e fraction]Ordered By: Gulshan Early on 12-28-2023 Hematocrit (Bld) [Volume fraction] 38.6 % 37-47 [facility] Immature granulocytes/100 WB C Auto (Bld)Ordered By: Gulshan Early on 12-28-2023 Immature granulocytes/100 WBC (Bld) 0.300 % 0.0-0.9 [facility] Comment on above: IG% - Immature Granu locytes (promyelocytes, myelocytes and metamyelocytes) > 1% indicates that a LEFT SHIFT is Present. Laboratory - Chemistry and C hemistry - challengeOrdered By: Gulshan Early on 12-28-2023 Albumin/Globulin [Mass ratio] 0.8 {ratio} 0.9-2.4 [facility] ALP [Catalytic activity/Vol] 77 U/L 45-117 [facility] ALT [Catalytic activity/Vol] 19 U/L 13-56 [facility] Cholesterol in HDL [Mass/Vol] 53 mg/dL >40 [facility] Comment on above: The drugs N-Acetylcy steine and Metamizole may falsely depress this assay. Reference Range HDL <40 mg/dL Low HDL Cholesterol HDL >or= 60 mg/dL High HDL Cholesterol Cholesterol in LDL [Mass/Vol] 28 mg/dL 0-130 [facility] CO2 [Moles/Vol] 29.0 mmol/L 21.0-32.0 [facility] Globulin (S) [Mass/Vol] 4.0 g/dL 2.2-4.2 [facility] Urea nitrogen/Creatinine [Mass ratio] 18.1 mg/mg 10-20 [facility] Laboratory - Hematology and Cell countsOrdered By: Gulshan Early on 12-28-2023 MCH (RBC) [Entitic mass] 26.9 pg 27.0-32.0 [facility] MCHC (RBC) [Mass/Vol] 30.8 g/dL 32-36 [facility] Nucleated RBC/100 WBC (Bld) [Ratio] 0 % 0-5 [facility] Platelet mean volume (Bld) [Entitic vol] 9.5 fL 6.2-12.0 [facility] Platelets (Bld) [#/Vol] 247 10*3/uL 150-450 [facility] No Panel InformationOrdered By: Gulshan Early on 12-28-2023 Estimated GFR (MDRD) Amer 107 mL/min >60 [facility] Comment on above: GFR Calc Estimated GFR (MDRD) Non-Af Amer 88 mL/min >60 [facility] Comment on above: Non- GFR Calc Vitamin D 25-Hydroxy 52.6 ng/mL [facility] Comment on above: Vitamin D 25(OH) Sta tus Range Deficiency <20 ng/mL (50nmol/L) Insufficiency 20 - 30 ng/mL (50 - 75 nmol/L) Sufficiency 30 - 100 ng/mL (75 - 250 nmol/L) Toxicity >100 ng/mL (>250 nmol/L) VLDL Cholesterol 33 mg/dL 5-40 [facility] RBC Auto (Bld) [#/Vol]Ordere d By: Gulshan Eraly on 12-28-2023 RBC (Bld) [#/Vol] 4.43 10*6/uL 4.2-5.4 [facility] Serum or plasma calcium phani urement (mass/volume)Ordered By: Gulshan Early on 12-28-2023 Calcium [Mass/Vol] 8.3 mg/dL 8.5-10.[address] [facility] Serum or plasma creatinine m easurement (mass/volume)Ordered By: Gulshan Early 12-28-2023 Creatinine [Mass/Vol] 0.72 mg/dL 0.55-1.02 [facility] Comment on above: The validity of the calculated GFR & GFRAA in patients over 70 years has not been determined. Clinical correlation is essential. Serum or plasma thyroid stim ulating hormone (TSH) measurement (units/volume)Ordered By: Gulshan Early on 12-28-2023 TSH Qn 0.10 uIU/mL 0.358-3.74 [facility] Serum or plasma urea nitroge n measurement (mass/volume)Ordered By: Glushan Early 12-28-2023 Urea nitrogen [Mass/Vol] 13 mg/dL 7-18 [facility] Thin prep Papanicolaou smear with manual screeningOrdered By: Gulshan Early 12-28-2023 Thin prep Papanicolaou smear with manual screening 3.4 g/dL 3.2-5.0 [facility] Thin prep Papanicolaou smear with manual screening 20 U/L 15-37 [facility] Thin prep Papanicolaou smear with manual screening 4 5-15 [facility] Whole blood hemoglobin A1c/t otal hemoglobin ratio (mass fraction)Ordered By: Gulshan Early on 12-28-2023 HbA1c (Bld) [Mass fraction] 6.2 % 3.8-5.6 [facility] Comment on above: Normal < 5.7 % Predi abetic 5.7 - 6.4 % Diabetic >or= 6.5 % Please note range changes. Laboratory - Microbiology an d Antimicrobial susceptibilityOrdered By: Gulshan Early on 11-01-2023 SARS-CoV-2 (COVID-19) RNA SEEMA+probe Ql (Unsp spec) [facility] SARS-CoV-2 (COVID-19) RNA SEEMA+probe Ql (Unsp spec) [facility] Absolute lymphocyte countOrd ered By: Gulshan Early on 06-27-2023 Lymphocytes Auto (Unsp spec) [#/Vol] 2.39 10*3/uL 0.83-4.51 [facility] Basophil percentageOrdered B y: Gulshan Early on 06-27-2023 Basophils/100 WBC (Bld) 0.5 % 0-1 [facility] Bilirubin [Mass/Vol] 0.70 mg/dL 0.20-1.00 [facility] Comment on above: For patients on eltr ombopag therapy, use of Dimension Loman TBIL is not recommended. Chloride [Moles/Vol] 105 mmol/L 98-107 [facility] Cholesterol [Mass/Vol] 114 mg/dL <200 [facility] Comment on above: <200 mg/dL Desirable 200-240 mg/dL Borderline >240 mg/dL High Risk Eosinophils/100 WBC (Bld) 2.8 % 0-5 [facility] Glucose [Mass/Vol] 149 mg/dL 74-[address] [facility] Comment on above: Fasting Glucose resu lt greater than or equal to 126 mg/dL suggests DIABETES MELLITUS per A.D.A. criteria. Neutrophils (Bld) [#/Vol] 3.1 10*3/uL 2.0-7.7 [facility] Neutrophils/100 WBC (Bld) 48.6 % 47-70 [facility] Potassium [Moles/Vol] 3.8 mmol/L 3.5-5.1 [facility] Protein [Mass/Vol] 7.2 g/dL 6.4-8.[address] [facility] Sodium [Moles/Vol] 138 mmol/L 136-[address] [facility] Triglyceride [Mass/Vol] 369 mg/dL <199 [facility] Comment on above: The drugs N-Acetylcy steine and Metamizole may falsely depress this assay.Serum Triglycerides Reference Interval Normal <150 mg/dL Borderline high 150 - 199 mg/dL High 200 - 499 mg/dL Very High > or = 500 mg/dL WBC (Bld) [#/Vol] 6.5 10*3/uL 4.4-11.[address] [facility] Blood erythrocytes count (nu mber/volume)Ordered By: Gulshan Early on 06-27-2023 RBC (Bld) [#/Vol] 4.57 10*6/uL 4.2-5.4 [facility] Blood hemoglobin measurement (mass/volume)Ordered By: Gulshan Early on 06-27-2023 Hemoglobin (Bld) [Mass/Vol] 12.6 g/dL 12.0-15.0 [facility] Blood lymphocytes/100 leukoc ytesOrdered By: Gulshan Early on 06-27-2023 Lymphocytes/100 WBC (Bld) 37.1 % 19-41 [facility] Blood monocytes/100 leukocyt esOrdered By: Gulshan Early on 06-27-2023 Monocytes/100 WBC (Bld) 10.7 % 0-10 [facility] Blood platelet mean volumeOr dered By: Gulshan Early on 06-27-2023 Platelet mean volume (Bld) [Entitic vol] 9.9 fL 6.2-12.0 [facility] Determination of erythrocyte mean corpuscular volume (MCV)Ordered By: Gulshan Early on 06-27-2023 MCV (RBC) [Entitic vol] 90.2 fL 81-99 [facility] Hematocrit Auto (Bld) [Volum e fraction]Ordered By: Gulshan Early on 06-27-2023 Hematocrit (Bld) [Volume fraction] 41.2 % 37-47 [facility] Laboratory - Chemistry and C hemistry - challengeOrdered By: Gulshan Early on 06-27-2023 ALP [Catalytic activity/Vol] 96 U/L 45-117 [facility] ALT [Catalytic activity/Vol] 26 U/L 13-56 [facility] CO2 [Moles/Vol] 30.0 mmol/L 21.0-32.0 [facility] Globulin (S) [Mass/Vol] 3.7 g/dL 2.2-4.2 [facility] Urea nitrogen/Creatinine [Mass ratio] 21.6 mg/mg 10-20 [facility] Laboratory - Hematology and Cell countsOrdered By: Gulshan Early on 06-27-2023 Erythrocyte distribution width (RBC) [Entitic vol] 49.1 fL 35.1-43.[address] [facility] Erythrocyte distribution width (RBC) [Ratio] 14.9 % 11.6-14.6 [facility] Immature granulocytes/100 WBC (Bld) 0.300 % 0.0-0.9 [facility] Comment on above: IG% - Immature Granu locytes (promyelocytes, myelocytes and metamyelocytes) > 1% indicates that a LEFT SHIFT is Present. MCH (RBC) [Entitic mass] 27.6 pg 27.0-32.0 [facility] Nucleated RBC/100 WBC (Bld) [Ratio] 0 % 0-5 [facility] MCHC Auto (RBC) [Mass/Vol]Or dered By: Gulshan Early on 06-27-2023 MCHC (RBC) [Mass/Vol] 30.6 g/dL 32-36 [facility] No Panel InformationOrdered By: Gulshan Early on 06-27-2023 Estimated GFR (MDRD) Amer 71 mL/min >60 [facility] Comment on above: GFR Calc Estimated GFR (MDRD) Non-Af Amer 59 mL/min >60 [facility] Comment on above: Non- GFR Calc Thyroid Stimulating Hormone (TSH) 0.03 uIU/mL 0.358-3.74 [facility] Platelets bldOrdered By: Gulshan Early on 06-27-2023 Platelets (Bld) [#/Vol] 287 10*3/uL 150-450 [facility] Serum or plasma albumin phani urement (mass/volume)Ordered By: Gulshan Early on 06-27-2023 Albumin [Mass/Vol] 3.5 g/dL 3.2-5.[address] [facility] Serum or plasma albumin/glob ulin mass ratioOrdered By: Gulshan Early on 06-27-2023 Albumin/Globulin [Mass ratio] 0.9 {ratio} 0.9-2.4 [facility] Serum or plasma calcium phani urement (mass/volume)Ordered By: Gulshan Early 06-27-2023 Calcium [Mass/Vol] 8.4 mg/dL 8.5-10.[address] [facility] Serum or plasma cholesterol in HDL measurement (mass/volume)Ordered By: Gulshan Early on 06-27-2023 Cholesterol in HDL [Mass/Vol] 46 mg/dL >40 [facility] Comment on above: The drugs N-Acetylcy steine and Metamizole may falsely depress this assay. Reference Range HDL <40 mg/dL Low HDL Cholesterol HDL >or= 60 mg/dL High HDL Cholesterol Serum or plasma cholesterol in VLDL measurement (mass/volume)Ordered By: Gulshan Early 06-27-2023 Cholesterol in VLDL [Mass/Vol] 74 mg/dL 5-40 [facility] Serum or plasma creatinine m easurement (mass/volume)Ordered By: Gulshan Early 06-27-2023 Creatinine [Mass/Vol] 1.02 mg/dL 0.55-1.02 [facility] Comment on above: The validity of the calculated GFR & GFRAA in patients over 70 years has not been determined. Clinical correlation is essential. Serum or plasma low density lipoprotein (LDL) cholesterol measurement (mass/volume)Ordered By: Gulshan Early 06-27-2023 Cholesterol in LDL [Mass/Vol] -6 mg/dL 0-130 [facility] Serum or plasma urea nitroge n measurement (mass/volume)Ordered By: Gulshan Early 06-27-2023 Urea nitrogen [Mass/Vol] 22 mg/dL 7-18 [facility] Thin prep Papanicolaou smear with manual screeningOrdered By: Gulshan Early 06-27-2023 Thin prep Papanicolaou smear with manual screening 15 U/L 15-37 [facility] Thin prep Papanicolaou smear with manual screening 3 5-15 [facility] Thin prep Papanicolaou smear with manual screening 152.0 mg/L NO RANGE EST. [facility] Whole blood hemoglobin A1c/t otal hemoglobin ratio (mass fraction)Ordered By: Gulshan Early on 06-27-2023 HbA1c (Bld) [Mass fraction] 6.7 % 3.8-5.6 [facility] Comment on above: Normal < 5.7 % Predi abetic 5.7 - 6.4 % Diabetic >or= 6.5 % Please note range changes. Laboratory - Hematology and Cell countson 05-29-2023 HbA1c (Bld) [Mass fraction] 6.8 % 4.2-6.3 [facility] Glucose Glucometer (BldC) [M ass/Vol]Ordered By: Gulshan Early on 03-20-2023 Glucose [Mass/Vol] 290 mg/dL 74-[address] [facility] Comment on above: MANAGEMENT OF PATIEN T CARE PER NURSING PROTOCOL Absolute lymphocyte countOrd ered By: Gulshan Early on 03-15-2023 Lymphocytes Auto (Unsp spec) [#/Vol] 2.32 10*3/uL 0.83-4.51 [facility] Basophil percentageOrdered B y: Gulshan Early on 03-15-2023 Basophils/100 WBC (Bld) 0.8 % 0-1 [facility] Chloride [Moles/Vol] 103 mmol/L 98-107 [facility] Eosinophils/100 WBC (Bld) 3.4 % 0-5 [facility] Glucose [Mass/Vol] 214 mg/dL 74-[address] [facility] Comment on above: Glucose result great er than or equal to 200 mg/dLsuggests DIABETES MELLITUS per A.D.A. criteria. Neutrophils (Bld) [#/Vol] 2.2 10*3/uL 2.0-7.7 [facility] Neutrophils/100 WBC (Bld) 41.9 % 47-70 [facility] Potassium [Moles/Vol] 3.8 mmol/L 3.5-5.1 [facility] Sodium [Moles/Vol] 140 mmol/L 136-[address] [facility] WBC (Bld) [#/Vol] 5.3 10*3/uL 4.4-11.[address] [facility] Blood erythrocytes count (nu mber/volume)Ordered By: Gulshan Early on 03-15-2023 RBC (Bld) [#/Vol] 3.72 10*6/uL 4.2-5.4 [facility] Blood hemoglobin measurement (mass/volume)Ordered By: Gulshan Early on 03-15-2023 Hemoglobin (Bld) [Mass/Vol] 10.2 g/dL 12.0-15.0 [facility] Blood lymphocytes/100 leukoc ytesOrdered By: Gulshan Early on 03-15-2023 Lymphocytes/100 WBC (Bld) 44.2 % 19-41 [facility] Blood monocytes/100 leukocyt esOrdered By: Gulshan Early on 03-15-2023 Monocytes/100 WBC (Bld) 9.3 % 0-10 [facility] Blood platelet mean volumeOr dered By: Gulshan Early on 03-15-2023 Platelet mean volume (Bld) [Entitic vol] 9.2 fL 6.2-12.0 [facility] Determination of erythrocyte mean corpuscular volume (MCV)Ordered By: Gulshan Early on 03-15-2023 MCV (RBC) [Entitic vol] 92.5 fL 81-99 [facility] Hematocrit Auto (Bld) [Volum e fraction][facility] Hematocrit (Bld) [Volume fraction] 34.4 % 37-47 [facility] Laboratory - Chemistry and C hemistry - challengeOrdered By: [facility] 03-[facility]23 CO2 [Moles/Vol] 33.0 mmol/L 21.0-32.0 [facility] Urea nitrogen/Creatinine [Mass ratio] 37.9 mg/mg 10-20 [facility] Laboratory - Hematology and Cell countsOrdered By: Gulshan Sharath 03-15-2023 Erythrocyte distribution width (RBC) [Entitic vol] 50.9 fL 35.1-43.[address] [facility] Erythrocyte distribution width (RBC) [Ratio] 15.2 % 11.6-14.6 [facility] Immature granulocytes/100 WBC (Bld) 0.400 % 0.0-0.9 [facility] Comment on above: IG% - Immature Granu locytes (promyelocytes, myelocytes and metamyelocytes) > 1% indicates that a LEFT SHIFT is Present. MCH (RBC) [Entitic mass] 27.4 pg 27.0-32.0 [facility] Nucleated RBC/100 WBC (Bld) [Ratio] 0 % 0-5 [facility] MCHC Auto (RBC) [Mass/Vol]Or dered By: Gulshan Early on 03-15-2023 MCHC (RBC) [Mass/Vol] 29.7 g/dL 32-36 [facility] No Panel InformationOrdered By: Gulshan Early on 03-15-2023 Estimated Creatinine Clearance Calc 98.19 ml/min [facility] Estimated GFR (MDRD) Amer 124 mL/min >60 [facility] Comment on above: GFR Calc Estimated GFR (MDRD) Non-Af Amer 102 mL/min >60 [facility] Comment on above: Non- GFR Calc Platelets bldOrdered By: Gulshan Early on 03-15-2023 Platelets (Bld) [#/Vol] 293 10*3/uL 150-450 [facility] Serum or plasma calcium phani urement (mass/volume)Ordered By: Gulshan Early on 03-15-2023 Calcium [Mass/Vol] 8.4 mg/dL 8.5-10.[address] [facility] Serum or plasma creatinine m easurement (mass/volume)Ordered By: Gulshan Early on 03-15-2023 Creatinine [Mass/Vol] 0.63 mg/dL 0.55-1.02 [facility] Comment on above: The validity of the calculated GFR & GFRAA in patients over 70 years has not been determined. Clinical correlation is essential. Serum or plasma urea nitroge n measurement (mass/volume)Ordered By: Gulshan Early on 03-15-2023 Urea nitrogen [Mass/Vol] 24 mg/dL 7-18 [facility] Thin prep Papanicolaou smear with manual screeningOrdered By: Gulshan Early 03-15-2023 Thin prep Papanicolaou smear with manual screening 4 5-15 [facility] Serum or plasma cortisol jose armando surement (mass/volume)Ordered By: Cintia Guerra on 03-11-2023 Cortisol [Mass/Vol] 7.60 ug/dL 3.44-22.45 [facility] Comment on above: Adult (AM) 5.27 - 22 .45 ug/dL Adult (PM) 3.44 - 16.76 ug/dLPlease note revised CORTISOL reference range effective 2019. Laboratory - Chemistry and C hemistry - challengeOrdered By: Cintia Guerra on 03-09-2023 Free T4 [Mass/Vol] 1.29 ng/dL 0.76-1.[address] [facility] Whole blood hemoglobin A1c/t otal hemoglobin ratio (mass fraction)Ordered By: Gulshan Early on 03-08-2023 HbA1c (Bld) [Mass fraction] 6.3 % 3.8-5.6 [facility] Comment on above: Normal < 5.7 % Predi abetic 5.7 - 6.4 % Diabetic >or= 6.5 % Please note range changes. Absolute lymphocyte countOrd ered By: Dr. Tyler on 03-07-2023 Lymphocytes Auto (Unsp spec) [#/Vol] 1.70 10*3/uL 0.83-4.51 [facility] Basophil percentageOrdered B y: Dr. Tyler on 03-07-2023 Basophils/100 WBC (Bld) 0.5 % 0-1 [facility] Chloride [Moles/Vol] 104 mmol/L 98-107 [facility] Eosinophils/100 WBC (Bld) 2.9 % 0-5 [facility] Glucose [Mass/Vol] 163 mg/dL 74-[address] [facility] Comment on above: Fasting Glucose resu lt greater than or equal to 126 mg/dL suggests DIABETES MELLITUS per A.D.A. criteria. Neutrophils (Bld) [#/Vol] 3.1 10*3/uL 2.0-7.7 [facility] Neutrophils/100 WBC (Bld) 56.4 % 47-70 [facility] Potassium [Moles/Vol] 3.4 mmol/L 3.5-5.1 [facility] Sodium [Moles/Vol] 140 mmol/L 136-[address] [facility] WBC (Bld) [#/Vol] 5.5 10*3/uL 4.4-11.[address] [facility] Blood erythrocytes count (nu mber/volume)Ordered By: Dr. Tyler on 03-07-2023 RBC (Bld) [#/Vol] 3.76 10*6/uL 4.2-5.4 [facility] Blood hemoglobin measurement (mass/volume)Ordered By: Dr. Tyler on 03-07-2023 Hemoglobin (Bld) [Mass/Vol] 10.4 g/dL 12.0-15.0 [facility] Blood lymphocytes/100 leukoc ytesOrdered By: Dr. Tyler on 03-07-2023 Lymphocytes/100 WBC (Bld) 31.1 % 19-41 [facility] Blood monocytes/100 leukocyt esOrdered By: Dr. Tyler on 03-07-2023 Monocytes/100 WBC (Bld) 8.6 % 0-10 [facility] Blood platelet mean volumeOr dered By: Dr. Tyler on 03-07-2023 Platelet mean volume (Bld) [Entitic vol] 8.6 fL 6.2-12.0 [facility] Determination of erythrocyte mean corpuscular volume (MCV)Ordered By: Dr. Tyler on 03-07-2023 MCV (RBC) [Entitic vol] 87.8 fL 81-99 [facility] Glucose Glucometer (BldC) [M ass/Vol]Ordered By: Dr. Tyler on 03-07-2023 Glucose [Mass/Vol] 185 mg/dL 74-[address] [facility] Comment on above: MANAGEMENT OF PATIEN T CARE PER NURSING PROTOCOL Hematocrit Auto (Bld) [Volum e fraction]Ordered By: Dr. Tyler on 03-07-2023 Hematocrit (Bld) [Volume fraction] 33.0 % 37-47 [facility] Laboratory - Chemistry and C hemistry - challengeOrdered By: Dr. Tyler on 03-07-2023 CO2 [Moles/Vol] 31.0 mmol/L 21.0-32.0 [facility] Urea nitrogen/Creatinine [Mass ratio] 45.5 mg/mg 10-20 [facility] Laboratory - Hematology and Cell countsOrdered By: Dr. Tyler on 03-07-2023 Erythrocyte distribution width (RBC) [Entitic vol] 44.8 fL 35.1-43.[address] [facility] Erythrocyte distribution width (RBC) [Ratio] 14.2 % 11.6-14.6 [facility] Immature granulocytes/100 WBC (Bld) 0.500 % 0.0-0.9 [facility] Comment on above: IG% - Immature Granu locytes (promyelocytes, myelocytes and metamyelocytes) > 1% indicates that a LEFT SHIFT is Present. MCH (RBC) [Entitic mass] 27.7 pg 27.0-32.0 [facility] Nucleated RBC/100 WBC (Bld) [Ratio] 0 % 0-5 [facility] Laboratory - Microbiology an d Antimicrobial susceptibilityOrdered By: Dr. Mixon on 03-07-2023 Bacteria identified Cx Nom (Bld) No growth in 5 days. [facility] MCHC Auto (RBC) [Mass/Vol]Or dered By: Dr. Tyler on 03-07-2023 MCHC (RBC) [Mass/Vol] 31.5 g/dL 32-36 [facility] No Panel InformationOrdered By: Dr. Tyler on 03-07-2023 Estimated Creatinine Clearance Calc 116.71 ml/min [facility] Estimated GFR (MDRD) Amer 153 mL/min >60 [facility] Comment on above: GFR Calc Estimated GFR (MDRD) Non-Af Amer 126 mL/min >60 [facility] Comment on above: Non- GFR Calc Platelets bldOrdered By: Dr. Tyler on 03-07-2023 Platelets (Bld) [#/Vol] 360 10*3/uL 150-450 [facility] Serum or plasma calcium phani urement (mass/volume)Ordered By: Dr. Tyler on 03-07-2023 Calcium [Mass/Vol] 8.6 mg/dL 8.5-10.[address] [facility] Serum or plasma creatinine m easurement (mass/volume)Ordered By: Dr. Tyler on 03-07-2023 Creatinine [Mass/Vol] 0.53 mg/dL 0.55-1.02 [facility] Comment on above: The validity of the calculated GFR & GFRAA in patients over 70 years has not been determined. Clinical correlation is essential. Serum or plasma urea nitroge n measurement (mass/volume)Ordered By: Dr. Tyler on 03-07-2023 Urea nitrogen [Mass/Vol] 24 mg/dL 7-18 [facility] Thin prep Papanicolaou smear with manual screeningOrdered By: Dr. Tyler on 03-07-2023 Thin prep Papanicolaou smear with manual screening 5 5-15 [facility] Bacteria identified Cx Nom ( Wound)Ordered By: Dr. Tyler on 03-04-2023 Wound Culture Staphylococcus aureus [facility] Wound Culture Streptococcus agalactiae (B) [facility] Wound Culture Proteus penneri [facility] Vancomycin troughOrdered By: Dr. Tyler on 03-04-2023 Vancomycin trough [Mass/Vol] 17.0 ug/mL 5.0-15.0 [facility] Comment on above: VANCOMYCIN STANDARED DRUG THERAPY TROUGH LEVEL: 5.0 - 15.0 mg/L VANCOMYCIN HIGH INTENSITY THERAPY TROUGH LEVEL: 15.0 - 20.0 mg/L High Intensity therapy recommended for serious lifethreatening infections include:- Pikocwtrpt-Inbfvzfxbisu-Oxtcsdmvk (Ventilator/Healtcare Associated)-Sepsis PLEASE CONTACT PHARMACY SERVICES (#[id number]) FOR INTERPRETATIONOF RESULTS. Serum or plasma vancomycin m easurement (mass/volume)Ordered By: Dr. Ervin on 03-03-2023 Vancomycin [Mass/Vol] 13.3 ug/mL 0.0-15.0 [facility] Comment on above: VANCOMYCIN STANDARD DRUG THERAPY: CRITICAL VALUE IS > 15.0 mg/L VANCOMYCIN HIGH INTENSITY THERAPY: CRITICAL VALUE IS > 20.0 mg/L PLEASE CONTACT PHARMACY SERVICES (#[id number]) FOR INTERPRETATIONOF RESULTS. THIS RESULT DOES NOT REPRESENT A PEAK OR TROUGHLEVEL FOR THIS DRUG. Acid fast bacilli (AFB) cult ureOrdered By: Tereso Navarro on 03-02-2023 Mycobacterium sp identified Org specific cx Nom (Unsp spec) [facility] Bacteria identified Anaer cx Nom (Unsp spec)Ordered By: Macario Tyler on 03-02-2023 Anaerobic Culture Anaerobic cocci [facility] Anaerobic Culture Anaerobic cocci#2 [facility] Anaerobic Culture Prevotella disiens [facility] Anaerobic Culture Fusobacterium necrophorum [facility] Anaerobic Culture Bacteroides thetaiotaomicron [facility] Bacteria identified Cx Nom ( Wound)Ordered By: Macario Tyler on 03-02-2023 Wound Culture Staphylococcus aureus [facility] Wound Culture Streptococcus agalactiae (B) [facility] Wound Culture Proteus penneri [facility] Bacteria identified Cx Nom ( Wound)Ordered By: Tereso Navarro on 03-02-2023 Wound Culture Pseudomonas aeruginosa [facility] Fungus cultureOrdered By: Tristen Navarro on 03-02-2023 Fungus identified Cx Nom (Unsp spec) [facility] Fungus stainOrdered By: Juanito Navarro on 03-02-2023 Fungus identified Fungus stain Nom (Unsp spec) [facility] Gram stain for investigation of transfusion reactionOrdered By: Macario Tyler on 03-02-2023 Microscopic observation Gram stain Nom (Unsp spec) [facility] Gram stain for investigation of transfusion reactionOrdered By: Dr. Tyler on 03-02-2023 Microscopic observation Gram stain Nom (Unsp spec) [facility] No Panel InformationOrdered By: Dr. Angelo on 03-02-2023 Thyroid Stimulating Hormone (TSH) 0.07 uIU/mL 0.358-3.74 [facility] Thin prep Papanicolaou smear with manual screeningOrdered By: Tereso Navarro on 03-02-2023 Thin prep Papanicolaou smear with manual screening [facility] Whole blood hemoglobin A1c/t otal hemoglobin ratio (mass fraction)Ordered By: Dr. Angelo on 03-02-2023 HbA1c (Bld) [Mass fraction] 6.2 % 3.8-5.6 [facility] Comment on above: Normal < 5.7 % Predi abetic 5.7 - 6.4 % Diabetic >or= 6.5 % Please note range changes. Absolute lymphocyte countOrd ered By: Dr. Xiao on 03-01-2023 Lymphocytes Auto (Unsp spec) [#/Vol] 1.29 10*3/uL 0.83-4.51 [facility] Basophil percentageOrdered B y: Dr. Xiao on 03-01-2023 Basophils/100 WBC (Bld) 0.2 % 0-1 [facility] Bilirubin [Mass/Vol] 0.60 mg/dL 0.20-1.00 [facility] Comment on above: For patients on eltr ombopag therapy, use of Dimension Loman TBIL is not recommended. Chloride [Moles/Vol] 103 mmol/L 98-107 [facility] Eosinophils/100 WBC (Bld) 0.6 % 0-5 [facility] Glucose [Mass/Vol] 204 mg/dL 74-[address] [facility] Comment on above: Glucose result great er than or equal to 200 mg/dLsuggests DIABETES MELLITUS per A.D.A. criteria. Neutrophils (Bld) [#/Vol] 6.4 10*3/uL 2.0-7.7 [facility] Neutrophils/100 WBC (Bld) 75.8 % 47-70 [facility] Potassium [Moles/Vol] 4.3 mmol/L 3.5-5.1 [facility] Protein [Mass/Vol] 7.6 g/dL 6.4-8.[address] [facility] Sodium [Moles/Vol] 136 mmol/L 136-[address] [facility] WBC (Bld) [#/Vol] 8.5 10*3/uL 4.4-11.[address] [facility] Blood erythrocytes count (nu mber/volume)Ordered By: Dr. Xiao on 03-01-2023 RBC (Bld) [#/Vol] 3.93 10*6/uL 4.2-5.4 [facility] Blood hemoglobin measurement (mass/volume)Ordered By: Dr. Xiao on 03-01-2023 Hemoglobin (Bld) [Mass/Vol] 10.9 g/dL 12.0-15.0 [facility] Blood lymphocytes/100 leukoc ytesOrdered By: Dr. Xiao on 03-01-2023 Lymphocytes/100 WBC (Bld) 15.2 % 19-41 [facility] Blood monocytes/100 leukocyt esOrdered By: Dr. Xiao on 03-01-2023 Monocytes/100 WBC (Bld) 7.8 % 0-10 [facility] Blood platelet mean volumeOr dered By: Dr. Xiao on 03-01-2023 Platelet mean volume (Bld) [Entitic vol] 9.4 fL 6.2-12.0 [facility] Determination of erythrocyte mean corpuscular volume (MCV)Ordered By: Dr. Xiao on 03-01-2023 MCV (RBC) [Entitic vol] 90.1 fL 81-99 [facility] Erythrocyte sedimentation ra teOrdered By: Dr. Xiao on 03-01-2023 ESR (Bld) [Velocity] 54 mm/h 0-30 [facility] Hematocrit Auto (Bld) [Volum e fraction]Ordered By: Dr. Xiao on 03-01-2023 Hematocrit (Bld) [Volume fraction] 35.4 % 37-47 [facility] Laboratory - Chemistry and C hemistry - challengeOrdered By: Dr. Xiao on 03-01-2023 ALP [Catalytic activity/Vol] 107 U/L 45-117 [facility] ALT [Catalytic activity/Vol] 46 U/L 13-56 [facility] CO2 [Moles/Vol] 30.0 mmol/L 21.0-32.0 [facility] Globulin (S) [Mass/Vol] 4.8 g/dL 2.2-4.2 [facility] Urea nitrogen/Creatinine [Mass ratio] 24.7 mg/mg 10-20 [facility] Laboratory - Hematology and Cell countsOrdered By: Dr. Xiao on 03-01-2023 Erythrocyte distribution width (RBC) [Entitic vol] 46.1 fL 35.1-43.[address] [facility] Erythrocyte distribution width (RBC) [Ratio] 13.9 % 11.6-14.6 [facility] Immature granulocytes/100 WBC (Bld) 0.400 % 0.0-0.9 [facility] Comment on above: IG% - Immature Granu locytes (promyelocytes, myelocytes and metamyelocytes) > 1% indicates that a LEFT SHIFT is Present. MCH (RBC) [Entitic mass] 27.7 pg 27.0-32.0 [facility] Nucleated RBC/100 WBC (Bld) [Ratio] 0 % 0-5 [facility] Laboratory - Microbiology an d Antimicrobial susceptibilityOrdered By: Victorino Mixon on 03-01-2023 Bacteria identified Cx Nom (Bld) No growth in 5 days. [facility] MCHC Auto (RBC) [Mass/Vol]Or dered By: Dr. Xiao on 03-01-2023 MCHC (RBC) [Mass/Vol] 30.8 g/dL 32-36 [facility] No Panel InformationOrdered By: Dr. Tyler on 03-01-2023 Methicillin-Resist S.aureus DNA PCR Negative Negative [facility] No Panel InformationOrdered By: Dr. Xiao on 03-01-2023 Estimated Creatinine Clearance Calc 66.51 ml/min [facility] Estimated GFR (MDRD) Amer 79 mL/min >60 [facility] Comment on above: GFR Calc Estimated GFR (MDRD) Non-Af Amer 66 mL/min >60 [facility] Comment on above: Non- GFR Calc Platelets bldOrdered By: Dr. Xiao on 03-01-2023 Platelets (Bld) [#/Vol] 313 10*3/uL 150-450 [facility] Serum or plasma C reactive p rotein measurement (mass/volume)Ordered By: Dr. Xiao on 03-01-2023 CRP [Mass/Vol] 116.00 mg/L 0.0-3.0 [facility] Comment on above: C-Reactive Protein ( CRP) provides useful information for thediagnosis, therapy and monitoring of inflammatory processesand associated diseases. For the evaluation of Relative Riskfor Cardiovascular Disease, a High Sensitivity CRP (HSCRP)should be ordered. Serum or plasma albumin phani urement (mass/volume)Ordered By: Dr. Xiao on 03-01-2023 Albumin [Mass/Vol] 2.8 g/dL 3.2-5.[address] [facility] Serum or plasma albumin/glob ulin mass ratioOrdered By: Dr. Xiao on 03-01-2023 Albumin/Globulin [Mass ratio] 0.6 {ratio} 0.9-2.4 [facility] Serum or plasma calcium phani urement (mass/volume)Ordered By: Dr. Xiao on 03-01-2023 Calcium [Mass/Vol] 8.8 mg/dL 8.5-10.[address] [facility] Serum or plasma creatinine m easurement (mass/volume)Ordered By: Dr. Xiao on 03-01-2023 Creatinine [Mass/Vol] 0.93 mg/dL 0.55-1.02 [facility] Comment on above: The validity of the calculated GFR & GFRAA in patients over 70 years has not been determined. Clinical correlation is essential. Serum or plasma urea nitroge n measurement (mass/volume)Ordered By: Dr. Xiao on 03-01-2023 Urea nitrogen [Mass/Vol] 23 mg/dL 7-18 [facility] Staphylococcus aureus DNA de tection by probe and target amplification methodOrdered By: Dr. Tyler on 03-01-2023 S. aureus DNA SEEMA+probe Ql (Unsp spec) Positive Negative [facility] Thin prep Papanicolaou smear with manual screeningOrdered By: Dr. Xiao on 03-01-2023 Thin prep Papanicolaou smear with manual screening 37 U/L 15-37 [facility] Thin prep Papanicolaou smear with manual screening 3 5-15 [facility] Absolute lymphocyte countOrd ered By: Dr. Early on 02-20-2023 Lymphocytes Auto (Unsp spec) [#/Vol] 1.40 10*3/uL 0.83-4.51 [facility] Basophil percentageOrdered B y: Dr. Early on 02-20-2023 Basophils/100 WBC (Bld) 0.3 % 0-1 [facility] Bilirubin [Mass/Vol] 0.50 mg/dL 0.20-1.00 [facility] Comment on above: For patients on eltr ombopag therapy, use of Dimension Loman TBIL is not recommended. Chloride [Moles/Vol] 105 mmol/L 98-107 [facility] Cholesterol [Mass/Vol] 93 mg/dL <200 [facility] Comment on above: <200 mg/dL Desirable 200-240 mg/dL Borderline >240 mg/dL High Risk Eosinophils/100 WBC (Bld) 1.9 % 0-5 [facility] Glucose [Mass/Vol] 91 mg/dL 74-[address] [facility] Neutrophils (Bld) [#/Vol] 5.2 10*3/uL 2.0-7.7 [facility] Neutrophils/100 WBC (Bld) 70.2 % 47-70 [facility] Potassium [Moles/Vol] 4.7 mmol/L 3.5-5.1 [facility] Protein [Mass/Vol] 8.0 g/dL 6.4-8.[address] [facility] Sodium [Moles/Vol] 139 mmol/L 136-[address] [facility] Triglyceride [Mass/Vol] 101 mg/dL <199 [facility] Comment on above: The drugs N-Acetylcy steine and Metamizole may falsely depress this assay.Serum Triglycerides Reference Interval Normal <150 mg/dL Borderline high 150 - 199 mg/dL High 200 - 499 mg/dL Very High > or = 500 mg/dL WBC (Bld) [#/Vol] 7.4 10*3/uL 4.4-11.[address] [facility] Blood erythrocytes count (nu mber/volume)Ordered By: Dr. Early on 02-20-2023 RBC (Bld) [#/Vol] 4.28 10*6/uL 4.2-5.4 [facility] Blood hemoglobin measurement (mass/volume)Ordered By: Dr. Early on 02-20-2023 Hemoglobin (Bld) [Mass/Vol] 11.9 g/dL 12.0-15.0 [facility] Blood lymphocytes/100 leukoc ytesOrdered By: Dr. Early on 02-20-2023 Lymphocytes/100 WBC (Bld) 18.8 % 19-41 [facility] Blood monocytes/100 leukocyt esOrdered By: Dr. Early on 02-20-2023 Monocytes/100 WBC (Bld) 8.5 % 0-10 [facility] Blood platelet mean volumeOr dered By: Dr. Early on 02-20-2023 Platelet mean volume (Bld) [Entitic vol] 9.3 fL 6.2-12.0 [facility] Determination of erythrocyte mean corpuscular volume (MCV)Ordered By: Dr. Early on 02-20-2023 MCV (RBC) [Entitic vol] 90.7 fL 81-99 [facility] Hematocrit Auto (Bld) [Volum e fraction]Ordered By: Dr. Early on 02-20-2023 Hematocrit (Bld) [Volume fraction] 38.8 % 37-47 [facility] Laboratory - Chemistry and C hemistry - challengeOrdered By: Dr. Early on 02-20-2023 ALP [Catalytic activity/Vol] 91 U/L 45-117 [facility] ALT [Catalytic activity/Vol] 26 U/L 13-56 [facility] CO2 [Moles/Vol] 29.0 mmol/L 21.0-32.0 [facility] Globulin (S) [Mass/Vol] 4.8 g/dL 2.2-4.2 [facility] Urea nitrogen/Creatinine [Mass ratio] 31.5 mg/mg 10-20 [facility] Laboratory - Hematology and Cell countsOrdered By: Dr. Early on 02-20-2023 Erythrocyte distribution width (RBC) [Entitic vol] 47.8 fL 35.1-43.[address] [facility] Erythrocyte distribution width (RBC) [Ratio] 14.3 % 11.6-14.6 [facility] Immature granulocytes/100 WBC (Bld) 0.300 % 0.0-0.9 [facility] Comment on above: IG% - Immature Granu locytes (promyelocytes, myelocytes and metamyelocytes) > 1% indicates that a LEFT SHIFT is Present. MCH (RBC) [Entitic mass] 27.8 pg 27.0-32.0 [facility] Nucleated RBC/100 WBC (Bld) [Ratio] 0 % 0-5 [facility] MCHC Auto (RBC) [Mass/Vol]Or dered By: Dr. Early on 02-20-2023 MCHC (RBC) [Mass/Vol] 30.7 g/dL 32-36 [facility] No Panel InformationOrdered By: Dr. Early on 02-20-2023 Estimated GFR (MDRD) Amer 123 mL/min >60 [facility] Comment on above: GFR Calc Estimated GFR (MDRD) Non-Af Amer 102 mL/min >60 [facility] Comment on above: Non- GFR Calc Thyroid Stimulating Hormone (TSH) 0.16 uIU/mL 0.358-3.74 [facility] Platelets bldOrdered By: Dr. Early on 02-20-2023 Platelets (Bld) [#/Vol] 296 10*3/uL 150-450 [facility] Serum or plasma albumin phani urement (mass/volume)Ordered By: Dr. Early on 02-20-2023 Albumin [Mass/Vol] 3.2 g/dL 3.2-5.[address] [facility] Serum or plasma albumin/glob ulin mass ratioOrdered By: Dr. Early on 02-20-2023 Albumin/Globulin [Mass ratio] 0.7 {ratio} 0.9-2.4 [facility] Serum or plasma calcium phani urement (mass/volume)Ordered By: Dr. Early on 02-20-2023 Calcium [Mass/Vol] 8.2 mg/dL 8.5-10.[address] [facility] Serum or plasma cholesterol in HDL measurement (mass/volume)Ordered By: Dr. Early on 02-20-2023 Cholesterol in HDL [Mass/Vol] 57 mg/dL >40 [facility] Comment on above: The drugs N-Acetylcy steine and Metamizole may falsely depress this assay. Reference Range HDL <40 mg/dL Low HDL Cholesterol HDL >or= 60 mg/dL High HDL Cholesterol Serum or plasma cholesterol in VLDL measurement (mass/volume)Ordered By: Dr. Early on 02-20-2023 Cholesterol in VLDL [Mass/Vol] 20 mg/dL 5-40 [facility] Serum or plasma creatinine m easurement (mass/volume)Ordered By: Dr. Early on 02-20-2023 Creatinine [Mass/Vol] 0.64 mg/dL 0.55-1.02 [facility] Comment on above: The validity of the calculated GFR & GFRAA in patients over 70 years has not been determined. Clinical correlation is essential. Serum or plasma low density lipoprotein (LDL) cholesterol measurement (mass/volume)Ordered By: Dr. Early on 02-20-2023 Cholesterol in LDL [Mass/Vol] 16 mg/dL 0-130 [facility] Serum or plasma urea nitroge n measurement (mass/volume)Ordered By: Dr. Early on 02-20-2023 Urea nitrogen [Mass/Vol] 20 mg/dL 7-18 [facility] Thin prep Papanicolaou smear with manual screeningOrdered By: Dr. Early on 02-20-2023 Thin prep Papanicolaou smear with manual screening 19 U/L 15-37 [facility] Thin prep Papanicolaou smear with manual screening 5 5-15 [facility] Whole blood hemoglobin A1c/t otal hemoglobin ratio (mass fraction)Ordered By: Dr. Early on 02-20-2023 HbA1c (Bld) [Mass fraction] 6.4 % 3.8-5.6 [facility] Comment on above: Normal < 5.7 % Predi abetic 5.7 - 6.4 % Diabetic >or= 6.5 % Please note range changes. Bacteria identified Cx Nom ( Wound)Ordered By: Dr. Navarro on 01-21-2023 Wound Culture Staphylococcus aureus [facility] Wound Culture Enterobacter cloacae complex [facility] Gram stain for investigation of transfusion reactionOrdered By: Dr. Navarro on 01-20-2023 Microscopic observation Gram stain Nom (Unsp spec) [facility] Bacteria identified Cx Nom ( Wound)Ordered By: Tereso Navarro on 01-19-2023 Wound Culture Staphylococcus aureus [facility] Wound Culture Enterobacter cloacae complex [facility] Gram stain for investigation of transfusion reactionOrdered By: Tereso Navarro on 01-19-2023 Microscopic observation Gram stain Nom (Unsp spec) [facility] Absolute lymphocyte countOrd ered By: Dr. Early on 11-21-2022 Lymphocytes Auto (Unsp spec) [#/Vol] 1.60 10*3/uL 0.83-4.51 [facility] Basophil percentageOrdered B y: Dr. Early on 11-21-2022 Basophils/100 WBC (Bld) 0.5 % 0-1 [facility] Bilirubin [Mass/Vol] 0.40 mg/dL 0.20-1.00 [facility] Comment on above: For patients on eltr ombopag therapy, use of Dimension Loman TBIL is not recommended. Chloride [Moles/Vol] 104 mmol/L 98-107 [facility] Cholesterol [Mass/Vol] 105 mg/dL <200 [facility] Comment on above: <200 mg/dL Desirable 200-240 mg/dL Borderline >240 mg/dL High Risk Eosinophils/100 WBC (Bld) 1.9 % 0-5 [facility] Glucose [Mass/Vol] 156 mg/dL 74-[address] [facility] Comment on above: Fasting Glucose resu lt greater than or equal to 126 mg/dL suggests DIABETES MELLITUS per A.D.A. criteria. Neutrophils (Bld) [#/Vol] 3.5 10*3/uL 2.0-7.7 [facility] Neutrophils/100 WBC (Bld) 61.1 % 47-70 [facility] Potassium [Moles/Vol] 4.6 mmol/L 3.5-5.1 [facility] Protein [Mass/Vol] 7.5 g/dL 6.4-8.[address] [facility] Sodium [Moles/Vol] 142 mmol/L 136-[address] [facility] Triglyceride [Mass/Vol] 243 mg/dL <199 [facility] Comment on above: The drugs N-Acetylcy steine and Metamizole may falsely depress this assay.Serum Triglycerides Reference Interval Normal <150 mg/dL Borderline high 150 - 199 mg/dL High 200 - 499 mg/dL Very High > or = 500 mg/dL WBC (Bld) [#/Vol] 5.7 10*3/uL 4.4-11.[address] [facility] Blood erythrocytes count (nu mber/volume)Ordered By: Dr. Early on 11-21-2022 RBC (Bld) [#/Vol] 4.24 10*6/uL 4.2-5.4 [facility] Blood hemoglobin measurement (mass/volume)Ordered By: Dr. Early on 11-21-2022 Hemoglobin (Bld) [Mass/Vol] 12.1 g/dL 12.0-15.0 [facility] Blood lymphocytes/100 leukoc ytesOrdered By: Dr. Early on 11-21-2022 Lymphocytes/100 WBC (Bld) 28.3 % 19-41 [facility] Blood monocytes/100 leukocyt esOrdered By: Dr. Early on 11-21-2022 Monocytes/100 WBC (Bld) 7.8 % 0-10 [facility] Blood platelet mean volumeOr dered By: Dr. aErly on 11-21-2022 Platelet mean volume (Bld) [Entitic vol] 9.5 fL 6.2-12.0 [facility] Determination of erythrocyte mean corpuscular volume (MCV)Ordered By: Dr. Early on 11-21-2022 MCV (RBC) [Entitic vol] 91.5 fL 81-99 [facility] Hematocrit Auto (Bld) [Volum e fraction]Ordered By: Dr. Early on 11-21-2022 Hematocrit (Bld) [Volume fraction] 38.8 % 37-47 [facility] Laboratory - Chemistry and C hemistry - challengeOrdered By: Dr. Early on 11-21-2022 ALP [Catalytic activity/Vol] 81 U/L 45-117 [facility] ALT [Catalytic activity/Vol] 22 U/L 13-56 [facility] CO2 [Moles/Vol] 31.0 mmol/L 21.0-32.0 [facility] Globulin (S) [Mass/Vol] 4.1 g/dL 2.2-4.2 [facility] Urea nitrogen/Creatinine [Mass ratio] 19.9 mg/mg 10-20 [facility] Laboratory - Hematology and Cell countsOrdered By: Dr. Early on 11-21-2022 Erythrocyte distribution width (RBC) [Entitic vol] 47.4 fL 35.1-43.[address] [facility] Erythrocyte distribution width (RBC) [Ratio] 14.2 % 11.6-14.6 [facility] Immature granulocytes/100 WBC (Bld) 0.400 % 0.0-0.9 [facility] Comment on above: IG% - Immature Granu locytes (promyelocytes, myelocytes and metamyelocytes) > 1% indicates that a LEFT SHIFT is Present. MCH (RBC) [Entitic mass] 28.5 pg 27.0-32.0 [facility] Nucleated RBC/100 WBC (Bld) [Ratio] 0 % 0-5 [facility] MCHC Auto (RBC) [Mass/Vol]Or dered By: Dr. Early on 11-21-2022 MCHC (RBC) [Mass/Vol] 31.2 g/dL 32-36 [facility] No Panel InformationOrdered By: Dr. Early on 11-21-2022 Estimated GFR (MDRD) Amer 102 mL/min >60 [facility] Comment on above: GFR Calc Estimated GFR (MDRD) Non-Af Amer 84 mL/min >60 [facility] Comment on above: Non- GFR Calc Thyroid Stimulating Hormone (TSH) 0.99 uIU/mL 0.358-3.74 [facility] Vitamin D 25-Hydroxy 51.4 ng/mL [facility] Comment on above: Vitamin D 25(OH) Sta tus Range Deficiency <20 ng/mL (50nmol/L) Insufficiency 20 - 30 ng/mL (50 - 75 nmol/L) Sufficiency 30 - 100 ng/mL (75 - 250 nmol/L) Toxicity >100 ng/mL (>250 nmol/L) Platelets bldOrdered By: Dr. Early on 11-21-2022 Platelets (Bld) [#/Vol] 285 10*3/uL 150-450 [facility] Serum or plasma albumin phani urement (mass/volume)Ordered By: Dr. Early on 11-21-2022 Albumin [Mass/Vol] 3.4 g/dL 3.2-5.[address] [facility] Serum or plasma albumin/glob ulin mass ratioOrdered By: Dr. Early on 11-21-2022 Albumin/Globulin [Mass ratio] 0.8 {ratio} 0.9-2.4 [facility] Serum or plasma calcium phani urement (mass/volume)Ordered By: Dr. Early on 11-21-2022 Calcium [Mass/Vol] 8.8 mg/dL 8.5-10.[address] [facility] Serum or plasma cholesterol in HDL measurement (mass/volume)Ordered By: Dr. Early on 11-21-2022 Cholesterol in HDL [Mass/Vol] 48 mg/dL >40 [facility] Comment on above: The drugs N-Acetylcy steine and Metamizole may falsely depress this assay. Reference Range HDL <40 mg/dL Low HDL Cholesterol HDL >or= 60 mg/dL High HDL Cholesterol Serum or plasma cholesterol in VLDL measurement (mass/volume)Ordered By: Dr. Early on 11-21-2022 Cholesterol in VLDL [Mass/Vol] 49 mg/dL 5-40 [facility] Serum or plasma creatinine m easurement (mass/volume)Ordered By: Dr. Early on 11-21-2022 Creatinine [Mass/Vol] 0.75 mg/dL 0.55-1.02 [facility] Comment on above: The validity of the calculated GFR & GFRAA in patients over 70 years has not been determined. Clinical correlation is essential. Serum or plasma low density lipoprotein (LDL) cholesterol measurement (mass/volume)Ordered By: Dr. Early on 11-21-2022 Cholesterol in LDL [Mass/Vol] 8 mg/dL 0-130 [facility] Serum or plasma urea nitroge n measurement (mass/volume)Ordered By: Dr. Early on 11-21-2022 Urea nitrogen [Mass/Vol] 15 mg/dL 7-18 [facility] Thin prep Papanicolaou smear with manual screeningOrdered By: Dr. Early on 11-21-2022 Thin prep Papanicolaou smear with manual screening 16 U/L 15-37 [facility] Thin prep Papanicolaou smear with manual screening 7 5-15 [facility] Laboratory - Microbiology an d Antimicrobial susceptibilityOrdered By: Dr. Early on 10-11-2022 SARS-CoV-2 (COVID-19) RNA SEEMA+probe Ql (Unsp spec) Not detected Not Detect [facility] Comment on above: Normal Reference Ran ge: Not DetectedMethod:(RT-PCR) real-time reverse transcriptase PCRLuminex PEYMAN Instrument*The Food and Drug Administration (FDA) has issued an Emergency Use Authorization (EAU) for the [employer] SARS-CoV-2 Assay for the rapid detection of the virus that causes COVID-19. This test has been validated, but the FDAs independent review of this validation is pending.*Negative results do not preclude infection and should not be used as the sole basis for treatment or patient management. Optimum specimen types and timing for peak viral levels during infections caused by SARS-CoV-2 have not been determined. Collection of multiple specimens from the same patient may be necessary to detect the virus. The possibility of a false negative result should be considered if the patient has clinical presentation or has had recent exposure. No Panel InformationOrdered By: Dr. Early on 10-11-2022 Influenza Types A,B Direct FA (SALLY) [facility] RSV Ag EIAOrdered By: Dr. Jose van on 10-11-2022 RSV Ag Immune stain Ql (Tiss) [facility] Absolute lymphocyte countOrd ered By: Dr. Early on 09-09-2022 Lymphocytes Auto (Unsp spec) [#/Vol] 1.25 10*3/uL 0.83-4.51 [facility] Basophil percentageOrdered B y: Dr. Early on 09-09-2022 Basophils/100 WBC (Bld) 0.4 % 0-1 [facility] Bilirubin [Mass/Vol] 0.40 mg/dL 0.20-1.00 [facility] Comment on above: For patients on eltr ombopag therapy, use of Dimension Loman TBIL is not recommended. Chloride [Moles/Vol] 104 mmol/L 98-107 [facility] Cholesterol [Mass/Vol] 139 mg/dL <200 [facility] Comment on above: <200 mg/dL Desirable 200-240 mg/dL Borderline >240 mg/dL High Risk Eosinophils/100 WBC (Bld) 1.8 % 0-5 [facility] Glucose [Mass/Vol] 257 mg/dL 74-[address] [facility] Comment on above: Glucose result great er than or equal to 200 mg/dLsuggests DIABETES MELLITUS per A.D.A. criteria. Neutrophils (Bld) [#/Vol] 3.7 10*3/uL 2.0-7.7 [facility] Neutrophils/100 WBC (Bld) 66.5 % 47-70 [facility] Potassium [Moles/Vol] 4.0 mmol/L 3.5-5.1 [facility] Protein [Mass/Vol] 7.6 g/dL 6.4-8.[address] [facility] Sodium [Moles/Vol] 140 mmol/L 136-[address] [facility] Triglyceride [Mass/Vol] 377 mg/dL <199 [facility] Comment on above: The drugs N-Acetylcy steine and Metamizole may falsely depress this assay.Serum Triglycerides Reference Interval Normal <150 mg/dL Borderline high 150 - 199 mg/dL High 200 - 499 mg/dL Very High > or = 500 mg/dL WBC (Bld) [#/Vol] 5.5 10*3/uL 4.4-11.[address] [facility] Blood erythrocytes count (nu mber/volume)Ordered By: Dr. Early on 09-09-2022 RBC (Bld) [#/Vol] 4.31 10*6/uL 4.2-5.4 [facility] Blood hemoglobin measurement (mass/volume)Ordered By: Dr. Early on 09-09-2022 Hemoglobin (Bld) [Mass/Vol] 12.4 g/dL 12.0-15.0 [facility] Blood lymphocytes/100 leukoc ytesOrdered By: Dr. Early on 09-09-2022 Lymphocytes/100 WBC (Bld) 22.6 % 19-41 [facility] Blood monocytes/100 leukocyt esOrdered By: Dr. Early on 09-09-2022 Monocytes/100 WBC (Bld) 8.5 % 0-10 [facility] Blood platelet mean volumeOr dered By: Dr. Early on 09-09-2022 Platelet mean volume (Bld) [Entitic vol] 9.6 fL 6.2-12.0 [facility] Determination of erythrocyte mean corpuscular volume (MCV)Ordered By: Dr. Early on 09-09-2022 MCV (RBC) [Entitic vol] 92.3 fL 81-99 [facility] Hematocrit Auto (Bld) [Volum e fraction]Ordered By: Dr. Early on 09-09-2022 Hematocrit (Bld) [Volume fraction] 39.8 % 37-47 [facility] Laboratory - Chemistry and C hemistry - challengeOrdered By: Dr. Early on 09-09-2022 ALP [Catalytic activity/Vol] 84 U/L 45-117 [facility] ALT [Catalytic activity/Vol] 21 U/L 13-56 [facility] CO2 [Moles/Vol] 30.0 mmol/L 21.0-32.0 [facility] Globulin (S) [Mass/Vol] 4.2 g/dL 2.2-4.2 [facility] Urea nitrogen/Creatinine [Mass ratio] 18.9 mg/mg 10-20 [facility] Laboratory - Hematology and Cell countsOrdered By: Dr. Early on 09-09-2022 Erythrocyte distribution width (RBC) [Entitic vol] 48.6 fL 35.1-43.[address] [facility] Erythrocyte distribution width (RBC) [Ratio] 14.3 % 11.6-14.6 [facility] Immature granulocytes/100 WBC (Bld) 0.200 % 0.0-0.9 [facility] Comment on above: IG% - Immature Granu locytes (promyelocytes, myelocytes and metamyelocytes) > 1% indicates that a LEFT SHIFT is Present. MCH (RBC) [Entitic mass] 28.8 pg 27.0-32.0 [facility] Nucleated RBC/100 WBC (Bld) [Ratio] 0 % 0-5 [facility] Laboratory - Microbiology an d Antimicrobial susceptibilityOrdered By: Dr. Early on 09-09-2022 SARS-CoV-2 (COVID-19) RNA SEEMA+probe Ql (Unsp spec) Not detected Not Detect [facility] Comment on above: Normal Reference Ran ge: Not DetectedMethod:(RT-PCR) real-time reverse transcriptase PCRLuminex Daojia Instrument*The Food and Drug Administration (FDA) has issued an Emergency Use Authorization (EAU) for the Daojia SARS-CoV-2 Assay for the rapid detection of the virus that causes COVID-19. This test has been validated, but the FDAs independent review of this validation is pending.*Negative results do not preclude infection and should not be used as the sole basis for treatment or patient management. Optimum specimen types and timing for peak viral levels during infections caused by SARS-CoV-2 have not been determined. Collection of multiple specimens from the same patient may be necessary to detect the virus. The possibility of a false negative result should be considered if the patient has clinical presentation or has had recent exposure. MCHC Auto (RBC) [Mass/Vol]Or dered By: Dr. Early on 09-09-2022 MCHC (RBC) [Mass/Vol] 31.2 g/dL 32-36 [facility] No Panel InformationOrdered By: Dr. Early on 09-09-2022 Estimated GFR (MDRD) Amer 83 mL/min >60 [facility] Comment on above: GFR Calc Estimated GFR (MDRD) Non-Af Amer 69 mL/min >60 [facility] Comment on above: Non- GFR Calc Thyroid Stimulating Hormone (TSH) 7.70 uIU/mL 0.358-3.74 [facility] Vitamin D 25-Hydroxy 46.8 ng/mL [facility] Comment on above: Vitamin D 25(OH) Sta tus Range Deficiency <20 ng/mL (50nmol/L) Insufficiency 20 - 30 ng/mL (50 - 75 nmol/L) Sufficiency 30 - 100 ng/mL (75 - 250 nmol/L) Toxicity >100 ng/mL (>250 nmol/L) Influenza Types A,B Direct FA (SALLY) [facility] No Panel InformationOrdered By: Dr. Almanza on 09-09-2022 Fructosamine 281 umol/L 0-285 [facility] Comment on above: Published reference interval for apparently healthysubjects between age 20 and 60 is 205 - 285 umol/L and in apoorly controlled diabetic population is 228 - 563 umol/Lwith a mean of 396 umol/L.Performed at: [facility] Director: Shalom Minor PhD, Phone: [phone] Platelets bldOrdered By: Dr. Early on 09-09-2022 Platelets (Bld) [#/Vol] 278 10*3/uL 150-450 [facility] RSV Ag EIAOrdered By: Dr. Jose van on 09-09-2022 RSV Ag Immune stain Ql (Tiss) [facility] Serum or plasma albumin phani urement (mass/volume)Ordered By: Dr. Early on 09-09-2022 Albumin [Mass/Vol] 3.4 g/dL 3.2-5.[address] [facility] Serum or plasma albumin/glob ulin mass ratioOrdered By: Dr. Early on 09-09-2022 Albumin/Globulin [Mass ratio] 0.8 {ratio} 0.9-2.4 [facility] Serum or plasma calcium phani urement (mass/volume)Ordered By: Dr. Early on 09-09-2022 Calcium [Mass/Vol] 8.3 mg/dL 8.5-10.[address] [facility] Serum or plasma cholesterol in HDL measurement (mass/volume)Ordered By: Dr. Early on 09-09-2022 Cholesterol in HDL [Mass/Vol] 52 mg/dL >40 [facility] Comment on above: The drugs N-Acetylcy steine and Metamizole may falsely depress this assay. Reference Range HDL <40 mg/dL Low HDL Cholesterol HDL >or= 60 mg/dL High HDL Cholesterol Serum or plasma cholesterol in VLDL measurement (mass/volume)Ordered By: Dr. Early on 09-09-2022 Cholesterol in VLDL [Mass/Vol] 75 mg/dL 5-40 [facility] Serum or plasma creatinine m easurement (mass/volume)Ordered By: Dr. Early on 09-09-2022 Creatinine [Mass/Vol] 0.90 mg/dL 0.55-1.02 [facility] Comment on above: The validity of the calculated GFR & GFRAA in patients over 70 years has not been determined. Clinical correlation is essential. Serum or plasma low density lipoprotein (LDL) cholesterol measurement (mass/volume)Ordered By: Dr. Early on 09-09-2022 Cholesterol in LDL [Mass/Vol] 12 mg/dL 0-130 [facility] Serum or plasma urea nitroge n measurement (mass/volume)Ordered By: Dr. Early on 09-09-2022 Urea nitrogen [Mass/Vol] 17 mg/dL 7-18 [facility] Thin prep Papanicolaou smear with manual screeningOrdered By: Dr. Early on 09-09-2022 Thin prep Papanicolaou smear with manual screening 14 U/L 15-37 [facility] Thin prep Papanicolaou smear with manual screening 6 5-15 [facility] No Panel InformationOrdered By: Dr. Almanza on 08-30-2022 Nasal Screen MRSA/MSSA [facility] Absolute lymphocyte countOrd ered By: Dr. Almanza on 08-29-2022 Lymphocytes Auto (Unsp spec) [#/Vol] 1.22 10*3/uL 0.83-4.51 [facility] Basophil percentageOrdered B y: Dr. Almanza on 08-29-2022 Basophils/100 WBC (Bld) 0.6 % 0-1 [facility] Chloride [Moles/Vol] 103 mmol/L 98-107 [facility] Eosinophils/100 WBC (Bld) 1.4 % 0-5 [facility] Glucose [Mass/Vol] 354 mg/dL 74-[address] [facility] Comment on above: Glucose result great er than or equal to 200 mg/dLsuggests DIABETES MELLITUS per A.D.A. criteria. Neutrophils (Bld) [#/Vol] 3.2 10*3/uL 2.0-7.7 [facility] Neutrophils/100 WBC (Bld) 64.7 % 47-70 [facility] Potassium [Moles/Vol] 3.7 mmol/L 3.5-5.1 [facility] Sodium [Moles/Vol] 138 mmol/L 136-[address] [facility] WBC (Bld) [#/Vol] 5.0 10*3/uL 4.4-11.[address] [facility] Blood erythrocytes count (nu mber/volume)Ordered By: Dr. Almanza on 08-29-2022 RBC (Bld) [#/Vol] 4.51 10*6/uL 4.2-5.4 [facility] Blood hemoglobin measurement (mass/volume)Ordered By: Dr. Almanza on 08-29-2022 Hemoglobin (Bld) [Mass/Vol] 12.8 g/dL 12.0-15.0 [facility] Blood lymphocytes/100 leukoc ytesOrdered By: Dr. Almanza on 08-29-2022 Lymphocytes/100 WBC (Bld) 24.5 % 19-41 [facility] Blood monocytes/100 leukocyt esOrdered By: Dr. Almanza on 08-29-2022 Monocytes/100 WBC (Bld) 8.6 % 0-10 [facility] Blood platelet mean volumeOr dered By: Dr. Almanza on 08-29-2022 Platelet mean volume (Bld) [Entitic vol] 9.5 fL 6.2-12.0 [facility] Determination of erythrocyte mean corpuscular volume (MCV)Ordered By: Dr. Almanza on 08-29-2022 MCV (RBC) [Entitic vol] 90.9 fL 81-99 [facility] Hematocrit Auto (Bld) [Volum e fraction]Ordered By: Dr. Almanza on 08-29-2022 Hematocrit (Bld) [Volume fraction] 41.0 % 37-47 [facility] INR in Blood by Coagulation assayOrdered By: Dr. Almanza on 08-29-2022 INR Coag (Bld) [Relative time] 1.1 {INR} [facility] Laboratory - Chemistry and C hemistry - challengeOrdered By: Dr. Almanza on 08-29-2022 CO2 [Moles/Vol] 27.0 mmol/L 21.0-32.0 [facility] Urea nitrogen/Creatinine [Mass ratio] 14.8 mg/mg 10-20 [facility] Laboratory - Chemistry and C hemistry - challengeOrdered By: Dr. Becerra on 08-29-2022 Magnesium [Mass/Vol] 1.9 mg/dL 1.6-2.6 [facility] Laboratory - CoagulationOrde red By: Dr. Almanza on 08-29-2022 aPTT Coag (Bld) [Time] 32.4 s 24.1-36.2 [facility] PT Coag (PPP) [Time] 14.1 s 11.7-14.9 [facility] Laboratory - Hematology and Cell countsOrdered By: Dr. Almanza on 08-29-2022 Erythrocyte distribution width (RBC) [Entitic vol] 48.9 fL 35.1-43.[address] [facility] Erythrocyte distribution width (RBC) [Ratio] 14.8 % 11.6-14.6 [facility] Immature granulocytes/100 WBC (Bld) 0.200 % 0.0-0.9 [facility] Comment on above: IG% - Immature Granu locytes (promyelocytes, myelocytes and metamyelocytes) > 1% indicates that a LEFT SHIFT is Present. MCH (RBC) [Entitic mass] 28.4 pg 27.0-32.0 [facility] Nucleated RBC/100 WBC (Bld) [Ratio] 0 % 0-5 [facility] MCHC Auto (RBC) [Mass/Vol]Or dered By: Dr. Almanza on 08-29-2022 MCHC (RBC) [Mass/Vol] 31.2 g/dL 32-36 [facility] No Panel InformationOrdered By: Dr. Almanza on 08-29-2022 Estimated GFR (MDRD) Amer 85 mL/min >60 [facility] Comment on above: GFR Calc Estimated GFR (MDRD) Non-Af Amer 70 mL/min >60 [facility] Comment on above: Non- GFR Calc No Panel InformationOrdered By: Dr. Becerra on 08-29-2022 Thyroid Stimulating Hormone (TSH) 3.60 uIU/mL 0.358-3.74 [facility] Platelets bldOrdered By: Dr. Almanza on 08-29-2022 Platelets (Bld) [#/Vol] 313 10*3/uL 150-450 [facility] Serum or plasma calcium phani urement (mass/volume)Ordered By: Dr. Almanza on 08-29-2022 Calcium [Mass/Vol] 8.9 mg/dL 8.5-10.[address] [facility] Serum or plasma creatinine m easurement (mass/volume)Ordered By: Dr. Almanza on 08-29-2022 Creatinine [Mass/Vol] 0.88 mg/dL 0.55-1.02 [facility] Comment on above: The validity of the calculated GFR & GFRAA in patients over 70 years has not been determined. Clinical correlation is essential. Serum or plasma urea nitroge n measurement (mass/volume)Ordered By: Dr. Almanza on 08-29-2022 Urea nitrogen [Mass/Vol] 13 mg/dL 7-18 [facility] Thin prep Papanicolaou smear with manual screeningOrdered By: Dr. Almanza on 08-29-2022 Thin prep Papanicolaou smear with manual screening 8 5-15 [facility] Whole blood hemoglobin A1c/t otal hemoglobin ratio (mass fraction)Ordered By: Dr. Almanza on 08-29-2022 HbA1c (Bld) [Mass fraction] 7.9 % 3.8-5.6 [facility] Comment on above: Normal < 5.7 % Predi abetic 5.7 - 6.4 % Diabetic >or= 6.5 % Please note range changes. No Panel InformationOrdered By: Dr. Almanza on 07-13-2022 Fructosamine 285 umol/L 0-285 [facility] Comment on above: Published reference interval for apparently healthysubjects between age 20 and 60 is 205 - 285 umol/L and in apoorly controlled diabetic population is 228 - 563 umol/Lwith a mean of 396 umol/L.Performed at: [facility] [id number] Director: Shalom Minor PhD, Phone: [phone] Whole blood hemoglobin A1c/t otal hemoglobin ratio (mass fraction)Ordered By: Dr. Almanza on 07-13-2022 HbA1c (Bld) [Mass fraction] 7.5 % 3.8-5.6 [facility] Comment on above: Normal < 5.7 % Predi abetic 5.7 - 6.4 % Diabetic >or= 6.5 % Please note range changes. XR WRIST MINIMUM 3 VIEWS LEF Ton 04-05-2022 XR WRIST MINIMUM 3 VIEWS LEFT ORIGINAL EXAMINATION: THREE XRAY VIEWS OF THE [...] Sign Date: 04/05/2022 12:20:27 PM Ordering Provider: MADELINE ALVAREZ [facility] ([place]) Absolute lymphocyte counton 11-23-2021 Lymphocytes Auto (Unsp spec) [#/Vol] 2.31 10*3/uL 0.83-4.51 [facility] Work Phone: Basophil percentageon 2021 Basophils/100 WBC (Bld) 0.5 % 0-1 [facility] Work Phone: Bilirubin [Mass/Vol] 0.70 mg/dL 0.20-1.00 [facility] Work Phone: Comment on above: For patients on eltr ombopag therapy, use of Dimension Loman TBIL is not recommended. Chloride [Moles/Vol] 105 mmol/L 98-107 [facility] Work Phone: Eosinophils/100 WBC (Bld) 1.1 % 0-5 [facility] Work Phone: [phone] Glucose [Mass/Vol] 103 mg/dL 74-[address] [facility] Work Phone: Comment on above: Fasting Glucose resu lt from 100 to 125 mg/dL suggests IMPAIRED HOMEOSTASIS per A.D.A. criteria. Neutrophils (Bld) [#/Vol] 5.0 10*3/uL 2.0-7.7 [facility] Work Phone: [phone] Neutrophils/100 WBC (Bld) 61.1 % 47-70 [facility] Work Phone: [phone] Potassium [Moles/Vol] 4.4 mmol/L 3.5-5.1 [facility] Work Phone: [phone] Protein [Mass/Vol] 7.6 g/dL 6.4-8.[address] [facility] Work Phone: [phone] Sodium [Moles/Vol] 137 mmol/L 136-[address] [facility] Work Phone: [phone] WBC (Bld) [#/Vol] 8.2 10*3/uL 4.4-11.[address] [facility] Work Phone: Blood erythrocytes count (nu mber/volume)on 11-23-2021 RBC (Bld) [#/Vol] 4.15 10*6/uL 4.2-5.4 [facility] Work Phone: [phone] Blood hemoglobin measurement (mass/volume)on 11-23-2021 Hemoglobin (Bld) [Mass/Vol] 11.9 g/dL 12.0-15.0 [facility] Work Phone: [phone] Blood lymphocytes/100 leukoc yteson 11-23-2021 Lymphocytes/100 WBC (Bld) 28.2 % 19-41 [facility] Work Phone: [phone] Blood monocytes/100 leukocyt eson 11-23-2021 Monocytes/100 WBC (Bld) 8.9 % 0-10 [facility] Work Phone: Blood platelet mean volumeon 11-23-2021 Platelet mean volume (Bld) [Entitic vol] 10.1 fL 6.2-12.0 [facility] Work Phone: Culture, urineon 11-23-2021 Bacteria identified Cx Nom (U) Klebsiella pneumoniae sp pneum [facility] Work Phone: Determination of erythrocyte mean corpuscular volume (MCV)on 11-23-2021 MCV (RBC) [Entitic vol] 91.6 fL 81-99 [facility] Work Phone: Hematocrit Auto (Bld) [Volum e fraction]on 11-23-2021 Hematocrit (Bld) [Volume fraction] 38.0 % 37-47 [facility] Work Phone: Laboratory - Chemistry and C hemistry - challengeon 11-23-2021 ALP [Catalytic activity/Vol] 80 U/L 45-117 [facility] Work Phone: ALT [Catalytic activity/Vol] 27 U/L 13-56 [facility] Work Phone: CO2 [Moles/Vol] 27.0 mmol/L 21.0-32.0 [facility] Work Phone: Globulin (S) [Mass/Vol] 4.0 g/dL 2.2-4.2 [facility] Work Phone: Urea nitrogen/Creatinine [Mass ratio] 22.1 mg/mg 10-20 [facility] Work Phone: Laboratory - Hematology and Cell countson 11-23-2021 Erythrocyte distribution width (RBC) [Entitic vol] 49.7 fL 35.1-43.[address] [facility] Work Phone: Erythrocyte distribution width (RBC) [Ratio] 14.7 % 11.6-14.6 [facility] Work Phone: Immature granulocytes/100 WBC (Bld) 0.200 % 0.0-0.9 [facility] Work Phone: Comment on above: IG% - Immature Granu locytes (promyelocytes, myelocytes and metamyelocytes) > 1% indicates that a LEFT SHIFT is Present. MCH (RBC) [Entitic mass] 28.7 pg 27.0-32.0 [facility] Work Phone: Nucleated RBC/100 WBC (Bld) [Ratio] 0 % 0-5 [facility] Work Phone: MCHC Auto (RBC) [Mass/Vol]on 11-23-2021 MCHC (RBC) [Mass/Vol] 31.3 g/dL 32-36 [facility] Work Phone: No Panel Informationon 11-23 Estimated GFR (MDRD) Amer 74 mL/min >60 [facility] Work Phone: Comment on above: GFR Calc Estimated GFR (MDRD) Non-Af Amer 61 mL/min >60 [facility] Work Phone: Comment on above: Non- GFR Calc Thyroid Stimulating Hormone (TSH) 0.92 uIU/mL 0.358-3.74 [facility] Work Phone: Vitamin D 25-Hydroxy 63.4 ng/mL [facility] Work Phone: Comment on above: Vitamin D 25(OH) Sta tus Range Deficiency <20 ng/mL (50nmol/L) Insufficiency 20 - 30 ng/mL (50 - 75 nmol/L) Sufficiency 30 - 100 ng/mL (75 - 250 nmol/L) Toxicity >100 ng/mL (>250 nmol/L) Platelets bldon 11-23-2021 Platelets (Bld) [#/Vol] 307 10*3/uL 150-450 [facility] Work Phone: Serum or plasma albumin phani urement (mass/volume)on 11-23-2021 Albumin [Mass/Vol] 3.6 g/dL 3.2-5.[address] [facility] Work Phone: Serum or plasma albumin/glob ulin mass ratioon 11-23-2021 Albumin/Globulin [Mass ratio] 0.9 {ratio} 0.9-2.4 [facility] Work Phone: Serum or plasma calcium phani urement (mass/volume)on 11-23-2021 Calcium [Mass/Vol] 8.6 mg/dL 8.5-10.1 [facility] Work Phone: Serum or plasma creatinine m easurement (mass/volume)on 11-23-2021 Creatinine [Mass/Vol] 0.99 mg/dL 0.55-1.02 [facility] Work Phone: Comment on above: The validity of the calculated GFR & GFRAA in patients over 70 years has not been determined. Clinical correlation is essential. Serum or plasma urea nitroge n measurement (mass/volume)on 11-23-2021 Urea nitrogen [Mass/Vol] 22 mg/dL 7-18 [facility] Work Phone: Serum or plasma uric acid me asurement (mass/volume)on 11-23-2021 Urate [Mass/Vol] 3.3 mg/dL 2.6-6.0 [facility] Work Phone: Comment on above: The drugs N-Acetylcy steine and Metamizole may falsely depress this assay. Thin prep Papanicolaou smear with manual screeningon 11-23-2021 Thin prep Papanicolaou smear with manual screening 18 U/L 15-37 [facility] Work Phone: Thin prep Papanicolaou smear with manual screening 5 5-15 [facility] Work Phone: Absolute lymphocyte counton 08-25-2021 Lymphocytes Auto (Unsp spec) [#/Vol] 1.69 10*3/uL 0.83-4.51 [facility] Work Phone: Basophil percentageon 2020 Bilirubin [Mass/Vol] 0.50 mg/dL 0.20-1.00 [facility] Work Phone: Comment on above: For patients on eltr ombopag therapy, use of Dimension Loman TBIL is not recommended. Chloride [Moles/Vol] 104 mmol/L 98-107 [facility] Work [facility]: Cholesterol [Mass/Vol] 114 mg/dL <200 [facility] Work Phone: Comment on above: <200 mg/dL Desirable 200-240 mg/dL Borderline >240 mg/dL High Risk Eosinophils/100 WBC (Bld) 1.1 % 0-5 [facility] Work Phone: Glucose [Mass/Vol] 127 mg/dL 74-[address] [facility] Work Phone: Comment on above: Fasting Glucose resu lt greater than or equal to 126 mg/dL suggests DIABETES MELLITUS per A.D.A. criteria.Please note revised GLUCOSE reference range effective 2017. Neutrophils (Bld) [#/Vol] 5.3 10*3/uL 2.0-7.7 [facility] Work Phone: Potassium [Moles/Vol] 4.3 mmol/L 3.5-5.1 [facility] Work Phone: Protein [Mass/Vol] 7.9 g/dL 6.4-8.[address] [facility] Work Phone: [phone] Sodium [Moles/Vol] 141 mmol/L 136-[address] [facility] Work Phone: Triglyceride [Mass/Vol] 254 mg/dL [facility] Work Phone: [phone] Comment on above: The drugs N-Acetylcy steine and Metamizole may falsely depress this assay.Serum Triglycerides Reference Interval Normal <150 mg/dL Borderline high 150 - 199 mg/dL High 200 - 499 mg/dL Very High > or = 500 mg/dL WBC (Bld) [#/Vol] 7.8 10*3/uL 4.4-11.[address] [facility] Work Phone: Blood erythrocytes count (nu mber/volume)on 08-25-2021 RBC (Bld) [#/Vol] 4.27 10*6/uL 4.2-5.4 [facility] Work Phone: Blood hemoglobin measurement (mass/volume)on 08-25-2021 Hemoglobin (Bld) [Mass/Vol] 12.4 g/dL 12.0-15.0 [facility] Work Phone: Blood lymphocytes/100 leukoc yteson 08-25-2021 Lymphocytes/100 WBC (Bld) 21.6 % 19-41 [facility] Work Phone: Blood monocytes/100 leukocyt eson 08-25-2021 Monocytes/100 WBC (Bld) 9.6 % 0-10 [facility] Work Phone: Blood platelet mean volumeon 08-25-2021 Platelet mean volume (Bld) [Entitic vol] 9.5 fL 6.2-12.0 [facility] Work Phone: Determination of erythrocyte mean corpuscular volume (MCV)on 08-25-2021 MCV (RBC) [Entitic vol] 92.5 fL 81-99 [facility] Work Phone: Hematocrit Auto (Bld) [Volum e fraction]on 08-25-2021 Hematocrit (Bld) [Volume fraction] 39.5 % 37-47 [facility] Work Phone: Laboratory - Chemistry and C hemistry - challengeon 08-25-2021 ALP [Catalytic activity/Vol] 82 U/L 45-117 [facility] Work Phone: [phone] ALT [Catalytic activity/Vol] 28 U/L 13-56 [facility] Work Phone: CO2 [Moles/Vol] 30.0 mmol/L 21.0-32.0 [facility] - [place] Work Phone: Globulin (S) [Mass/Vol] 4.5 g/dL 2.2-4.2 [facility] Work Phone: Urea nitrogen/Creatinine [Mass ratio] 21.5 mg/mg 10-20 [facility] [place] Work Phone: Laboratory - Hematology and Cell countson 08-25-2021 Basophils/100 WBC (Unsp spec) 0.4 % 0-1 [facility] [place] Work Phone: Erythrocyte distribution width (RBC) [Entitic vol] 47.7 fL 35.1-43.[address] [facility] Work Phone: Erythrocyte distribution width (RBC) [Ratio] 14.2 % 11.6-14.6 [facility] [place] Work Phone: Immature granulocytes/100 WBC (Bld) 0.300 % 0.0-0.9 [facility] [place] Work Phone: Comment on above: IG% - Immature Granu locytes (promyelocytes, myelocytes and metamyelocytes) > 1% indicates that a LEFT SHIFT is Present. MCH (RBC) [Entitic mass] 29.0 pg 27.0-32.0 [facility] [place] Work Phone: Neutrophils/100 WBC (Bld) 67.0 % 47-70 [facility] [place] Work Phone: Nucleated RBC/100 WBC (Bld) [Ratio] 0 % 0-5 [facility] [place] Work Phone: MCHC Auto (RBC) [Mass/Vol]on 08-25-2021 MCHC (RBC) [Mass/Vol] 31.4 g/dL 32-36 [facility] Work Phone: No Panel Informationon 08-25 Estimated GFR (MDRD) Amer 96 mL/min >60 [facility] [place] Work Phone: Comment on above: GFR Calc Estimated GFR (MDRD) Non-Af Amer 80 mL/min >60 [facility] [place] Work Phone: Comment on above: Non- GFR Calc Thyroid Stimulating Hormone (TSH) 2.03 uIU/mL 0.358-3.74 [facility] [place] Work Phone: Vitamin D 25-Hydroxy 68.4 ng/mL [facility] Work Phone: Comment on above: Vitamin D 25(OH) Sta tus Range Deficiency <20 ng/mL (50nmol/L) Insufficiency 20 - 30 ng/mL (50 - 75 nmol/L) Sufficiency 30 - 100 ng/mL (75 - 250 nmol/L) Toxicity >100 ng/mL (>250 nmol/L) Fructosamine 308 umol/L [facility] [place] Work Phone: Comment on above: Published reference interval for apparently healthysubjects between age 20 and 60 is 205 - 285 umol/L and in apoorly controlled diabetic population is 228 - 563 umol/Lwith a mean of 396 umol/L.Performed at: [id number] [id number] Director: Shalom Minor PhD, Phone: [phone] Platelets bldon 08-25-2021 Platelets (Bld) [#/Vol] 289 10*3/uL 150-450 [facility] [place] Work Phone: Serum or plasma albumin phani urement (mass/volume)on 08-25-2021 Albumin [Mass/Vol] 3.4 g/dL 3.2-5.[address] [facility] Work Phone: Serum or plasma albumin/glob ulin mass ratioon 08-25-2021 Albumin/Globulin [Mass ratio] 0.8 {ratio} 0.9-2.4 [facility] [place] Work Phone: Serum or plasma calcium phani urement (mass/volume)on 08-25-2021 Calcium [Mass/Vol] 8.1 mg/dL 8.5-10.[address] [facility] Work Phone: Serum or plasma cholesterol in HDL measurement (mass/volume)on 08-25-2021 Cholesterol in HDL [Mass/Vol] 52 mg/dL [facility] [place] Work Phone: Comment on above: The drugs N-Acetylcy steine and Metamizole may falsely depress this assay. Reference Range HDL <40 mg/dL Low HDL Cholesterol HDL >or= 60 mg/dL High HDL Cholesterol Serum or plasma cholesterol in VLDL measurement (mass/volume)on 08-25-2021 Cholesterol in VLDL [Mass/Vol] 51 mg/dL 5-40 [facility] [place] Work Phone: Serum or plasma creatinine m easurement (mass/volume)on 08-25-2021 Creatinine [Mass/Vol] 0.79 mg/dL 0.55-1.02 [facility] Work Phone: Comment on above: The validity of the calculated GFR & GFRAA in patients over 70 years has not been determined. Clinical correlation is essential. Serum or plasma low density lipoprotein (LDL) cholesterol measurement (mass/volume)on 08-25-2021 Cholesterol in LDL [Mass/Vol] 11 mg/dL 0-130 [facility] [place] Work Phone: Serum or plasma urea nitroge n measurement (mass/volume)on 08-25-2021 Urea nitrogen [Mass/Vol] 17 mg/dL 7-18 [facility] [place] Work Phone: Thin prep Papanicolaou smear with manual screeningon 08-25-2021 Thin prep Papanicolaou smear with manual screening 16 U/L 15-37 [facility] [place] Work Phone: Thin prep Papanicolaou smear with manual screening 7 -15 [facility] [place] Work Phone: XR WRIST MINIMUM 3 VIEWS RIG HTon 05-10-2021 XR WRIST MINIMUM 3 VIEWS RIGHT ORIGINAL EXAMINATION: THREE XRAY VIEWS OF THE RIGHT WRIST05/10/2021 8:23 pm COMPARISON: None HISTORY: ORDERING SYSTEM PROVIDED HISTORY: Reason for Exam: pain FINDINGS: No acute fracture or dislocation is identified. Severe degenerative changes seen at the 1st carpometacarpal joint.. There is no radiopaque foreign body. IMPRESSION: Severe degenerative changes at the 1st carpometacarpal joint. No fracture Interpreted by: Tod Martin Preliminary Report By: Tod Martin Electronically signed By Tod Martin Dictated Date: 05/10/2021 8:39:40 PM Prelim Date: 05/10/2021 8:40:33 PM Sign Date: 05/10/2021 8:40:33 PM Ordering Provider: HEATHER Gongora [facility] ([place]) ECHO Complete 2D W Doppler W Coloron 06-19-2020 TRANSTHORACIC ECHOCARDIOGRAM PATIENT: Remi Beltran STUDY DATE: 06/19/2020 [place] : 1965 AGE: 54 HT/WT: 172.7 cm (68 136.1 kg (299.4 in) lb) GENDER: F BP: 121 / 80 LOCATION: [facility] PATIENT Inpatient main STATUS: *ORDERING PHYSICIAN: * Micaela Chirinos *READING PHYSICIAN: * Caesar, *BELT LOOP MACHINE OPERATOR: * Ellen Campbell MD Brenda -------- INDICATIONS: TACHYCARDIA. -------- CONCLUSIONS SUMMARY: 1. Left ventricle: Systolic function is normal by the biplane method of disks. The estimated ejection fraction is 51%. 2. Right ventricle: The cavity size is mildly dilated. Systolic function is mildly decreased. 3. Inferior vena cava: The IVC is dilated and plethoric, without inspiratory collapse, consistent with elevated central venous pressure. 4. No significant valve disease. -------- STUDY DATA: Complete transthoracic echocardiogram. Procedure: Image quality was suboptimal. The study was technically limited due to poor acoustic window availability and body habitus. M-mode, complete 2D, complete spectral Doppler, and color flow Doppler images were acquired and archived for permanent storage and are available for subsequent review. Study status: Routine. Patient status: Inpatient. -------- FINDINGS LEFT VENTRICLE: The cavity size is normal. Wall thickness is normal. Systolic function is normal by the biplane method of disks. The estimated ejection fraction is 51%. There are no regional wall motion abnormalities. Left ventricular diastolic function parameters are normal. RIGHT VENTRICLE: The cavity size is mildly dilated. Systolic function is mildly decreased. VENTRICULAR SEPTUM: There is no evidence of a ventricular septal defect. LEFT ATRIUM: The atrium is normal in size. RIGHT ATRIUM: The atrium is mildly dilated. ATRIAL SEPTUM: Not well visualized. MITRAL VALVE: Structurally normal valve. Doppler: There is trivial, less than 1+ regurgitation. The valve area (LVOT continuity) is 4.2 cm^2. The mean diastolic gradient is 2 mm Hg. The peak diastolic gradient is 3 mm Hg. AORTIC VALVE: Not well visualized. Probably trileaflet. Doppler: There is no regurgitation. Dimensionless index: 0.78. The valve area by the velocity-time integral method is 3.3 cm^2. The valve area index by the velocity-time integral method is 1.3 cm^2/m^2. The mean systolic gradient is 4 mm Hg. The peak systolic gradient is 7 mm Hg. The peak systolic velocity is 1.3 m/sec. TRICUSPID VALVE: Structurally normal valve. Doppler: There is mild, 1+ regurgitation. PULMONIC VALVE: Not well visualized. Doppler: There is no significant regurgitation. AORTA: The aorta is normal. PULMONARY ARTERY: Not well visualized. Systolic pressure is within the normal range, estimated to be 35 mm Hg but may be underestimated due to a lack of tricuspid regurgitatant jet tracing. PERICARDIUM: There is no pericardial effusion. SYSTEMIC VEINS: Inferior vena cava: The IVC is dilated and plethoric, without inspiratory collapse, consistent with elevated central venous pressure. -------- Measurements Value Reference Aortic root ID 3.0 cm <4.6 Aortic root ID, STJ, ED 2.7 cm 2.0 - 3.2 Aortic root ID/bsa, STJ, ED (L) 1.0 cm/m^2 1.1 - 1.9 Value Reference Ascending aorta ID 3.2 cm 1.9 - 3.5 Ascending aorta ID/bsa, A-P 1.2 cm/m^2 1.0 - 2.2 Ascending aorta ID, A-P, S 3.2 cm Ascending aorta ID/bsa, A-P, S 1.2 cm/m^2 Left ventricle Value Reference Stroke volume/bsa, 1-p A2C 15.1 ml/m^2 LV end-diastolic volume, 1-p A4C 113 ml 48 - 140 LV end-systolic volume, 1-p A4C 38 ml 12 - 60 LV end-diastolic volume, 2-p (H) 111 ml 46 - 106 LV end-systolic volume, 2-p (H) 54 ml 14 - 42 LV ejection fraction, 2-p (L) 51 % 54 - 74 LV E/e', lateral 7.9 LV E/e', medial 9 LV E/e', average 8.4 LVOT Value Reference LVOT ID, A-P 2.3 cm LVOT mean velocity, S 0.6 m/sec LVOT peak gradient, S 3 mm Hg Stroke volume (SV), LVOT DP 77 ml Stroke index (SV/bsa), LVOT DP 29 ml/m^2 Aortic valve Value Reference Aortic valve peak velocity, S 1.3 m/sec Aortic valve mean velocity, S 0.9 m/sec Aortic mean gradient, S 4 mm Hg Aortic peak gradient, S 7 mm Hg DI 0.78 Aortic valve area, VTI 3.3 cm^2 Aortic valve area/bsa, VTI 1.3 cm^2/m^2 Left atrium Value Reference LA volume/bsa, ES, 2-p 20 ml/m^2 16 - 34 Mitral valve Value Reference Mitral E-wave peak velocity 0.8 m/sec Mitral A-wave peak velocity 0.6 m/sec Mitral deceleration time 146 ms Mitral mean gradient, D 2 mm Hg Mitral peak gradient, D 3 mm Hg Mitral E/A ratio, peak 1.3 Mitral valve area, LVOT continuity 4.2 cm^2 Tricuspid valve Value Reference Tricuspid regurg peak velocity 2.2 m/sec <=2.8 Tricuspid peak RV-RA gradient 20 mm Hg Systemic veins Value Reference Estimated RAP 15 mm Hg Right ventricle Value Reference TAPSE, 2D 1.9 cm 1.7 - 3.1 RV pressure, S, DP 35 mm Hg RV s', lateral 9.9 cm/sec 6.0 - 13.4 Legend: (L) and (H) terrell values outside specified reference range. Electronically signed by Ellen Maynard MD 06/19/2020 13:54 Prior Signatures: [facility] [place], [place] [facility] Incoming Cardiology Results From [facility] - 06/19/2020 1:54 PM EDT TRANSTHORACIC ECHOCARDIOGRAM PATIENT: Remi Beltran STUDY DATE: 06/19/2020 [place] : 1965 AGE: 54 HT/WT: 172.7 cm (68 136.1 kg (299.4 in) lb) GENDER: F BP: 121 / 80 LOCATION: [facility] PATIENT Inpatient main STATUS: *ORDERING PHYSICIAN: * Micaela Chirinos *READING PHYSICIAN: * Caesar, *BELT LOOP MACHINE OPERATOR: * Ellen Campbell MD Brenda -------- INDICATIONS: TACHYCARDIA. -------- CONCLUSIONS SUMMARY: 1. Left ventricle: Systolic function is normal by the biplane method of disks. The estimated ejection fraction is 51%. 2. Right ventricle: The cavity size is mildly dilated. Systolic function is mildly decreased. 3. Inferior vena cava: The IVC is dilated and plethoric, without inspiratory collapse, consistent with elevated central venous pressure. 4. No significant valve disease. -------- STUDY DATA: Complete transthoracic echocardiogram. Procedure: Image quality was suboptimal. The study was technically limited due to poor acoustic window availability and body habitus. M-mode, complete 2D, complete spectral Doppler, and color flow Doppler images were acquired and archived for permanent storage and are available for subsequent review. Study status: Routine. Patient status: Inpatient. -------- FINDINGS LEFT VENTRICLE: The cavity size is normal. Wall thickness is normal. Systolic function is normal by the biplane method of disks. The estimated ejection fraction is 51%. There are no regional wall motion abnormalities. Left ventricular diastolic function parameters are normal. RIGHT VENTRICLE: The cavity size is mildly dilated. Systolic function is mildly decreased. VENTRICULAR SEPTUM: There is no evidence of a ventricular septal defect. LEFT ATRIUM: The atrium is normal in size. RIGHT ATRIUM: The atrium is mildly dilated. ATRIAL SEPTUM: Not well visualized. MITRAL VALVE: Structurally normal valve. Doppler: There is trivial, less than 1+ regurgitation. The valve area (LVOT continuity) is 4.2 cm^2. The mean diastolic gradient is 2 mm Hg. The peak diastolic gradient is 3 mm Hg. AORTIC VALVE: Not well visualized. Probably trileaflet. Doppler: There is no regurgitation. Dimensionless index: 0.78. The valve area by the velocity-time integral method is 3.3 cm^2. The valve area index by the velocity-time integral method is 1.3 cm^2/m^2. The mean systolic gradient is 4 mm Hg. The peak systolic gradient is 7 mm Hg. The peak systolic velocity is 1.3 m/sec. TRICUSPID VALVE: Structurally normal valve. Doppler: There is mild, 1+ regurgitation. PULMONIC VALVE: Not well visualized. Doppler: There is no significant regurgitation. AORTA: The aorta is normal. PULMONARY ARTERY: Not well visualized. Systolic pressure is within the normal range, estimated to be 35 mm Hg but may be underestimated due to a lack of tricuspid regurgitatant jet tracing. PERICARDIUM: There is no pericardial effusion. SYSTEMIC VEINS: Inferior vena cava: The IVC is dilated and plethoric, without inspiratory collapse, consistent with elevated central venous pressure. -------- Measurements Value Reference Aortic root ID 3.0 cm <4.6 Aortic root ID, STJ, ED 2.7 cm 2.0 - 3.2 Aortic root ID/bsa, STJ, ED (L) 1.0 cm/m^2 1.1 - 1.9 Value Reference Ascending aorta ID 3.2 cm 1.9 - 3.5 Ascending aorta ID/bsa, A-P 1.2 cm/m^2 1.0 - 2.2 Ascending aorta ID, A-P, S 3.2 cm Ascending aorta ID/bsa, A-P, S 1.2 cm/m^2 Left ventricle Value Reference Stroke volume/bsa, 1-p A2C 15.1 ml/m^2 LV end-diastolic volume, 1-p A4C 113 ml 48 - 140 LV end-systolic volume, 1-p A4C 38 ml 12 - 60 LV end-diastolic volume, 2-p (H) 111 ml 46 - 106 LV end-systolic volume, 2-p (H) 54 ml 14 - 42 LV ejection fraction, 2-p (L) 51 % 54 - 74 LV E/e', lateral 7.9 LV E/e', medial 9 LV E/e', average 8.4 LVOT Value Reference LVOT ID, A-P 2.3 cm LVOT mean velocity, S 0.6 m/sec LVOT peak gradient, S 3 mm Hg Stroke volume (SV), LVOT DP 77 ml Stroke index (SV/bsa), LVOT DP 29 ml/m^2 Aortic valve Value Reference Aortic valve peak velocity, S 1.3 m/sec Aortic valve mean velocity, S 0.9 m/sec Aortic mean gradient, S 4 mm Hg Aortic peak gradient, S 7 mm Hg DI 0.78 Aortic valve area, VTI 3.3 cm^2 Aortic valve area/bsa, VTI 1.3 cm^2/m^2 Left atrium Value Reference LA volume/bsa, ES, 2-p 20 ml/m^2 16 - 34 Mitral valve Value Reference Mitral E-wave peak velocity 0.8 m/sec Mitral A-wave peak velocity 0.6 m/sec Mitral deceleration time 146 ms Mitral mean gradient, D 2 mm Hg Mitral peak gradient, D 3 mm Hg Mitral E/A ratio, peak 1.3 Mitral valve area, LVOT continuity 4.2 cm^2 Tricuspid valve Value Reference Tricuspid regurg peak velocity 2.2 m/sec <=2.8 Tricuspid peak RV-RA gradient 20 mm Hg Systemic veins Value Reference Estimated RAP 15 mm Hg Right ventricle Value Reference TAPSE, 2D 1.9 cm 1.7 - 3.1 RV pressure, S, DP 35 mm Hg RV s', lateral 9.9 cm/sec 6.0 - 13.4 Legend: (L) and (H) terrell values outside specified reference range. Electronically signed by Ellen Maynard MD 06/19/2020 13:54 Prior Signatures: [facility]- [place], [place] Echo Complete w/wo Contrasto n 06-19-2020 Echo Complete w/wo Contrast Patient Name: REMI BELTRAN Ultrasound Exam Date/Time 06/19/2020 11:09:47 EDT Exam Echo Complete w/wo Contrast Ordering Physician MICAELA CHIRINOS Accession Number [id number] Reason For Exam tachycardia Report TRANSTHORACIC ECHOCARDIOGRAM PATIENT: Remi Beltran STUDY DATE: 06/19/2020 [place] : 1965 AGE: 54 HT/WT: 172.7 cm (68 136.1 kg (299.4 in) lb) GENDER: F BP: 121 / 80 LOCATION: [facility] PATIENT Inpatient main STATUS: *ORDERING PHYSICIAN: * Micaela Chirinos *READING PHYSICIAN: * Caesar, *BELT LOOP MACHINE OPERATOR: * Ellen Campbell MD Brenda -------- INDICATIONS: TACHYCARDIA. -------- CONCLUSIONS SUMMARY: 1. Left ventricle: Systolic function is normal by the biplane method of disks. The estimated ejection fraction is 51%. 2. Right ventricle: The cavity size is mildly dilated. Systolic function is mildly decreased. 3. Inferior vena cava: The IVC is dilated and plethoric, without inspiratory collapse, consistent with elevated central venous pressure. 4. No significant valve disease. -------- STUDY DATA: Complete transthoracic echocardiogram. Procedure: Image quality was suboptimal. The study was technically limited due to poor acoustic window availability and body habitus. M-mode, complete 2D, complete spectral Doppler, and color flow Doppler images were acquired and archived for permanent storage and are available for subsequent review. Study status: Routine. Patient status: Inpatient. -------- FINDINGS LEFT VENTRICLE: The cavity size is normal. Wall thickness is normal. Systolic function is normal by the biplane method of disks. The estimated ejection fraction is 51%. There are no regional wall motion abnormalities. Left ventricular diastolic function parameters are normal. RIGHT VENTRICLE: The cavity size is mildly dilated. Systolic function is mildly decreased. VENTRICULAR SEPTUM: There is no evidence of a ventricular septal defect. LEFT ATRIUM: The atrium is normal in size. RIGHT ATRIUM: The atrium is mildly dilated. ATRIAL SEPTUM: Not well visualized. MITRAL VALVE: Structurally normal valve. Doppler: There is trivial, less than 1+ regurgitation. The valve area (LVOT continuity) is 4.2 cm^2. The mean diastolic gradient is 2 mm Hg. The peak diastolic gradient is 3 mm Hg. AORTIC VALVE: Not well visualized. Probably trileaflet. Doppler: There is no regurgitation. Dimensionless index: 0.78. The valve area by the velocity-time integral method is 3.3 cm^2. The valve area index by the velocity-time integral method is 1.3 cm^2/m^2. The mean systolic gradient is 4 mm Hg. The peak systolic gradient is 7 mm Hg. The peak systolic velocity is 1.3 m/sec. TRICUSPID VALVE: Structurally normal valve. Doppler: There is mild, 1+ regurgitation. PULMONIC VALVE: Not well visualized. Doppler: There is no significant regurgitation. AORTA: The aorta is normal. PULMONARY ARTERY: Not well visualized. Systolic pressure is within the normal range, estimated to be 35 mm Hg but may be underestimated due to a lack of tricuspid regurgitatant jet tracing. PERICARDIUM: There is no pericardial effusion. SYSTEMIC VEINS: Inferior vena cava: The IVC is dilated and plethoric, without inspiratory collapse, consistent with elevated central venous pressure. -------- Measurements Value Reference Aortic root ID 3.0 cm <4.6 Aortic root ID, STJ, ED 2.7 cm 2.0 - 3.2 Aortic root ID/bsa, STJ, ED (L) 1.0 cm/m^2 1.1 - 1.9 Value Reference Ascending aorta ID 3.2 cm 1.9 - 3.5 Ascending aorta ID/bsa, A-P 1.2 cm/m^2 1.0 - 2.2 Ascending aorta ID, A-P, S 3.2 cm Ascending aorta ID/bsa, A-P, S 1.2 cm/m^2 Left ventricle Value Reference Stroke volume/bsa, 1-p A2C 15.1 ml/m^2 LV end-diastolic volume, 1-p A4C 113 ml 48 - 140 LV end-systolic volume, 1-p A4C 38 ml 12 - 60 LV end-diastolic volume, 2-p (H) 111 ml 46 - 106 LV end-systolic volume, 2-p (H) 54 ml 14 - 42 LV ejection fraction, 2-p (L) 51 % 54 - 74 LV E/e', lateral 7.9 LV E/e', medial 9 LV E/e', average 8.4 LVOT Value Reference LVOT ID, A-P 2.3 cm LVOT mean velocity, S 0.6 m/sec LVOT peak gradient, S 3 mm Hg Stroke volume (SV), LVOT DP 77 ml Stroke index (SV/bsa), LVOT DP 29 ml/m^2 Aortic valve Value Reference Aortic valve peak velocity, S 1.3 m/sec Aortic valve mean velocity, S 0.9 m/sec Aortic mean gradient, S 4 mm Hg Aortic peak gradient, S 7 mm Hg DI 0.78 Aortic valve area, VTI 3.3 cm^2 Aortic valve area/bsa, VTI 1.3 cm^2/m^2 Left atrium Value Reference LA volume/bsa, ES, 2-p 20 ml/m^2 16 - 34 Mitral valve Value Reference Mitral E-wave peak velocity 0.8 m/sec Mitral A-wave peak velocity 0.6 m/sec Mitral deceleration time 146 ms Mitral mean gradient, D 2 mm Hg Mitral peak gradient, D 3 mm Hg Mitral E/A ratio, peak 1.3 Mitral valve area, LVOT continuity 4.2 cm^2 Tricuspid valve Value Reference Tricuspid regurg peak velocity 2.2 m/sec <=2.8 Tricuspid peak RV-RA gradient 20 mm Hg Systemic veins Value Reference Estimated RAP 15 mm Hg Right ventricle Value Reference TAPSE, 2D 1.9 cm 1.7 - 3.1 RV pressure, S, DP 35 mm Hg RV s', lateral 9.9 cm/sec 6.0 - 13.4 Legend: (L) and (H) terrell values outside specified reference range. Electronically signed by Ellen Maynard MD 06/19/2020 13:54 Prior Signatures: Final Dictated: 06/19/2020 1:54 pm Dictating Physician: ELLEN CHAIREZ Signed Date and Time: 06/19/2020 1:54 pm Signed by: ELLEN CHAIREZ [facility] Glucose,Bedsideon 06-19-2020 Glucose [Mass/Vol] 107 mg/dL High 70-100 [facility] Comment on above: Result Comment: Test performed by glucose meter. Results may be 10%-15% lower than serum/plasma values. (CLIA ID [id number]) Performed By: #### H EMDF, CMP3, MG3, TROPN, TSH5, FT4M, T3FE, DDI2 #### [place] [address] [place] [address] Glucose [Mass/Vol] 118 mg/dL High 70-100 [facility] Comment on above: Result Comment: Test performed by glucose meter. Results may be 10%-15% lower than serum/plasma values. (CLIA ID [id number]) Performed By: #### H EMDF, CMP3, MG3, TROPN, TSH5, FT4M, T3FE, DDI2 #### [place] [address] [address], [place] POCT Glucoseon 06-19-2020 Glucose [Mass/Vol] 107 mg/dL High 70 - 100 mg/dL [place], [place] Comment on above: Test performed by gl ucose meter. Results may be 10%-15% lower than serum/plasma values. (CLIA ID [id number]) Interpretation and review of laboratory results Abnormal [facility]- [place], [place] Test Performed by [facility], [address] [place] [id number] [place] [address] Glucose [Mass/Vol] 118 mg/dL High 70 - 100 mg/dL [place], [place] Comment on above: Test performed by gl ucose meter. Results may be 10%-15% lower than serum/plasma values. (CLIA ID [id number]) Interpretation and review of laboratory results Abnormal [facility]- [place], [place] Test Performed by [facility], [facility] [place], [place] [id number] [place] [address] Basic Metabolic Panelon 10-0 Anion gap [Moles/Vol] 12 Normal [facility] Comment on above: Performed By: #### H GHCT, BMP3 #### [place] [address] [address], [place] Calcium [Mass/Vol] 8.4 mg/dL Normal 8.4-10.4 [facility] Comment on above: Performed By: #### H GHCT, BMP3 #### [facility] [address], [place] CO2 [Moles/Vol] 24 mmol/L Normal 22-30 [facility] Comment on above: Performed By: #### H GHCT, BMP3 #### [facility] [address], [place] Creatinine [Mass/Vol] 0.63 mg/dL Normal 0.52-1.25 [facility] Comment on above: Performed By: #### H GHCT, BMP3 #### [address] [place] [address] [place], [place] GFR/1.73 sq M predicted among blacks MDRD (S/P/Bld) [Vol rate/Area] mL/min/{1.73_m2} Normal >60 [facility] Comment on above: Performed By: #### H GHCT, BMP3 #### [place] [address] [address], [place] GFR/1.73 sq M predicted among non-blacks MDRD (S/P/Bld) [Vol rate/Area] mL/min/{1.73_m2} Normal >60 [facility] Comment on above: Result Comment: KDIG O guidelines provide the following GFR categories: Stage GFR(ml/min/1.73 m2) Terms G1 >=90 Normal or high G2 60-89 Mildly decreased* G3a 45-59 Mildly to moderately decreased G3b 30-44 Moderately to severely decreased G4 15-29 Severely decreased G5 <15 Kidney failure *Relative to young adult level. In the absence of evidence of kidney damage, neither GFR category G1 nor G2 fulfill the criteria for CKD. The CKD-EPI equation is validated in individuals 18 years of age and older. Currently the best equation for estimating glomerular filtration rate (GFR) from serum creatinine in children is the Bedside Azul equation. It is less accurate in patients with extremes of muscle mass, restriction of dietary protein, ingestion of creatine, extra-renal metabolism of creatinine, or treatment with medications that affect renal tubular creatinine secretion. Performed By: #### H GHCT, BMP3 #### [facility] [address] [place] [address] Glucose [Mass/Vol] 173 mg/dL High 70-100 [facility] Comment on above: Performed By: #### H GHCT, BMP3 #### [facility] [address] [place] [address] Urea nitrogen [Mass/Vol] 13 mg/dL Normal 7-20 [facility] Comment on above: Performed By: #### H GHCT, BMP3 #### [facility] [address] [place] [address] Chloride [Moles/Vol] 107 mmol/L Normal 98-107 [facility] Comment on above: Performed By: #### H GHCT, BMP3 #### [facility] [address] [place] [address] Potassium [Moles/Vol] 3.7 mmol/L Normal 3.5-5.1 [facility] Comment on above: Performed By: #### H GHCT, BMP3 #### [facility] [address] [place] [address] Sodium [Moles/Vol] 143 mmol/L Normal 135-145 [facility] Comment on above: Performed By: #### H GHCT, BMP3 #### [facility] [address] [place] [address] Anion gap [Moles/Vol] 12 mmol/L [place], [place] Calcium [Mass/Vol] 8.4 mg/dL 8.4 - 10. 4 mg/dL [place] Chloride [Moles/Vol] 107 mmol/L 98 - 10 7 mmol/L [place] CO2 [Moles/Vol] 24 mmol/L 22 - 30 mmol/L [place] Creatinine [Mass/Vol] 0.63 mg/dL 0.52 - 1.25 mg/dL [place] EGFR IF NonAfrican Australian >90.0 >60 mL/min [place] Comment on above: KDIGO guidelines pro vide the following GFR categories: Stage GFR(ml/min/1.73 m2) Terms G1 >=90 Normal or high G2 60-89 Mildly decreased* G3a 45-59 Mildly to moderately decreased G3b 30-44 Moderately to severely decreased G4 15-29 Severely decreased G5 <15 Kidney failure *Relative to young adult level. In the absence of evidence of kidney damage, neither GFR category G1 nor G2 fulfill the criteria for CKD. The CKD-EPI equation is validated in individuals 18 years of age and older. Currently the best equation for estimating glomerular filtration rate (GFR) from serum creatinine in children is the Bedside Azul equation. It is less accurate in patients with extremes of muscle mass, restriction of dietary protein, ingestion of creatine, extra-renal metabolism of creatinine, or treatment with medications that affect renal tubular creatinine secretion. GFR/1.73 sq M predicted among blacks MDRD (S/P/Bld) [Vol rate/Area] mL/min/{1.73_m2} >60 mL/min [place] Glucose [Mass/Vol] 173 mg/dL High 70 - 100 mg/dL [place] Interpretation and review of laboratory results Abnormal [place] Potassium [Moles/Vol] 3.7 mmol/L 3.5 - 5.1 mmol/L [place] Sodium [Moles/Vol] 143 mmol/L 135 - 145 mmol/L [place] Urea nitrogen [Mass/Vol] 13 mg/dL 7 - 20 mg/dL [place] Glucose,Bedsideon 06-18-2020 Glucose [Mass/Vol] 131 mg/dL High 70-100 [facility] Comment on above: Result Comment: Test performed by glucose meter. Results may be 10%-15% lower than serum/plasma values. (CLIA ID [id number]) Performed By: #### H EMDF, CMP3, MG3, TROPN, TSH5, FT4M, T3FE, DDI2 #### [employer] [facility] [address] [place] [address] Glucose [Mass/Vol] 112 mg/dL High 70-100 [facility] Comment on above: Result Comment: Test performed by glucose meter. Results may be 10%-15% lower than serum/plasma values. (CLIA ID [id number]) Performed By: #### H EMDF, CMP3, MG3, TROPN, TSH5, FT4M, T3FE, DDI2 #### [facility] [address] [place] [address] Glucose [Mass/Vol] 186 mg/dL High 70-100 [facility] Comment on above: Result Comment: Test performed by glucose meter. Results may be 10%-15% lower than serum/plasma values. (CLIA ID [id number]) Performed By: #### H EMDF, CMP3, MG3, TROPN, TSH5, FT4M, T3FE, DDI2 #### [facility] [address] [place] [address] Glucose [Mass/Vol] 189 mg/dL High 70-100 [facility] Comment on above: Result Comment: Test performed by glucose meter. Results may be 10%-15% lower than serum/plasma values. (CLIA ID [id number]) Performed By: #### H EMDF, CMP3, MG3, TROPN, TSH5, FT4M, T3FE, DDI2 #### [place] [address] [place] [address] Glucose [Mass/Vol] 122 mg/dL High 70-100 [facility] Comment on above: Result Comment: Test performed by glucose meter. Results may be 10%-15% lower than serum/plasma values. (CLIA ID [id number]) Performed By: #### H EMDF, CMP3, MG3, TROPN, TSH5, FT4M, T3FE, DDI2 #### [facility] [address] [place] [address] Glucose [Mass/Vol] 169 mg/dL High 70-100 [facility] Comment on above: Result Comment: Test performed by glucose meter. Results may be 10%-15% lower than serum/plasma values. (CLIA ID [id number]) Performed By: #### H GHCT, BMP3 #### [facility] [address] [place] [address] Hemoglobin A1Con 06-18-2020 HbA1c (Bld) [Mass fraction] 160 mg/dL Normal [facility] Comment on above: Performed By: #### H ANAMARIA, BMP3 #### [address] [place] [address] HbA1c (Bld) [Mass fraction] 7.2 % High 4.0-6.0 [facility] Comment on above: Result Comment: --Hg bA1C levels may not be accurate in patients who have renal disease, received recent blood transfusions, are anemic, or who have dyshemoglobinemia. Performed By: #### H ANAMARIA, BMP3 #### [place] [address] [place] [address] Hemoglobin A1con 06-18-2020 eAG 160 mg/dL [place] HbA1c (Bld) [Mass fraction] 7.2 % High 4 - 6 % [place] Comment on above: --HgbA1C levels may not be accurate in patients who have renal disease, received recent blood transfusions, are anemic, or who have dyshemoglobinemia. Interpretation and review of laboratory results Abnormal [employer] Test Performed by [facility], [address] [place] [address] [place] Magnesiumon 06-18-2020 Magnesium [Mass/Vol] 1.8 mg/dL Normal 1.6-2.3 [facility] Comment on above: Performed By: #### H GHCT, BMP3 #### [address] [address] Magnesium [Mass/Vol] 1.8 mg/dL 1.6 - 2 .3 mg/dL [place] Otheron 06-18-2020 Test Performed by [employer] [address] [address] [place] POCT Glucoseon 06-18-2020 Glucose [Mass/Vol] 131 mg/dL High 70 - 100 mg/dL [place] Comment on above: Test performed by [employer] ucose meter. Results may be 10%-15% lower than serum/plasma values. (CLIA ID [id number]) Interpretation and review of laboratory results Abnormal [place], [employer] Test Performed by [facility], [address] [address] [facility] [place] Glucose [Mass/Vol] 112 mg/dL High 70 - 100 mg/dL [facility] [place] Comment on above: Test performed by gl ucose meter. Results may be 10%-15% lower than serum/plasma values. (CLIA ID [id number]) Interpretation and review of laboratory results Abnormal [facility] [place] Test Performed by [employer] [facility], [address] [place] [address] [facility] Glucose [Mass/Vol] 186 mg/dL High 70 - 100 mg/dL [facility] [place] Comment on above: Test performed by gl ucose meter. Results may be 10%-15% lower than serum/plasma values. (CLIA ID [id number]) Interpretation and review of laboratory results Abnormal [facility] [place] Test Performed by [employer] [facility], [address] [place] [address] [facility] [place] Glucose [Mass/Vol] 189 mg/dL High 70 - 100 mg/dL [facility] [place] Comment on above: Test performed by gl ucose meter. Results may be 10%-15% lower than serum/plasma values. (CLIA ID [id number]) Interpretation and review of laboratory results Abnormal [facility] [place] Test Performed by [employer] [facility], [address] [place] [address] [facility] Glucose [Mass/Vol] 122 mg/dL High 70 - 100 mg/dL [facility] [place] Comment on above: Test performed by gl ucose meter. Results may be 10%-15% lower than serum/plasma values. (CLIA ID [id number]) Interpretation and review of laboratory results Abnormal [facility] [place] Test Performed by [employer] [facility], [address] [place] [address] [facility] [place] Glucose [Mass/Vol] 169 mg/dL High 70 - 100 mg/dL [facility] [place] Comment on above: Test performed by gl ucose meter. Results may be 10%-15% lower than serum/plasma values. (CLIA ID [id number]) Interpretation and review of laboratory results Abnormal [place] Test Performed by [facility], [address] [place] [id number] [place] [address] Troponinon 06-18-2020 Troponin I.cardiac [Mass/Vol] ng/mL 0 - 0.034 ng/mL [place] Comment on above: . Test Performed by [facility], [address] [place] [id number] [place] [address] Troponin Ion 06-18-2020 Troponin I.cardiac [Mass/Vol] ng/mL Normal 0.000-0.03 4 [facility] Comment on above: Result Comment: . Performed By: #### H ANAMARIA BMP3 #### [address] Add On Lab Teston 06-17-2020 Sodium [Moles/Vol] Accepted [place] Comment on above: Specimen available & acceptable for analysis. Test Performed by [facility], [address] [place] [id number] [place] [address] Sodium [Moles/Vol] Accepted [place] Comment on above: Specimen available & acceptable for analysis. Test Performed by [facility], [address] [place] [id number] [place] [address] Add on test from HISon 06-17 Add on test from HIS Accepted Normal [facility] Comment on above: Result Comment: Spec imen available & acceptable for analysis. Performed By: #### H ANAMARIA BMP3 #### [address] Add on test from HIS Accepted Normal [facility] Comment on above: Result Comment: Spec imen available & acceptable for analysis. Performed By: #### H ANAMARIA BMP3 #### [address] Basic Metabolic Panelon Potassium [Moles/Vol] 3.8 mmol/L Normal 3.5-5.1 [facility] Comment on above: Performed By: #### H ANAMARIA BMP3 #### [address] [place], [place] Calcium [Mass/Vol] 9.2 mg/dL Normal 8.4-10.4 [facility] Comment on above: Performed By: #### H GHCT, BMP3 #### [facility] [address], [place] Glucose [Mass/Vol] 170 mg/dL High 70-100 [facility] Comment on above: Performed By: #### H GHCT, BMP3 #### [facility] [address], [place] Urea nitrogen [Mass/Vol] 12 mg/dL Normal 7-20 [facility] Comment on above: Performed By: #### H GHCT, BMP3 #### [place] [address], [place] Anion gap [Moles/Vol] 15 Normal [facility] Comment on above: Performed By: #### H GHCT, BMP3 #### [place] [address], [place] CO2 [Moles/Vol] 25 mmol/L Normal 22-30 [facility] Comment on above: Performed By: #### H GHCT, BMP3 #### [place] [address], [place] Creatinine [Mass/Vol] 0.63 mg/dL Normal 0.52-1.25 [facility] Comment on above: Performed By: #### H GHCT, BMP3 #### [place] [address], [place] GFR/1.73 sq M predicted among blacks MDRD (S/P/Bld) [Vol rate/Area] mL/min/{1.73_m2} Normal >60 [facility] Comment on above: Performed By: #### H GHCT, BMP3 #### [place] [address], [place] GFR/1.73 sq M predicted among non-blacks MDRD (S/P/Bld) [Vol rate/Area] mL/min/{1.73_m2} Normal >60 [facility] Comment on above: Result Comment: KDIG O guidelines provide the following GFR categories: Stage GFR(ml/min/1.73 m2) Terms G1 >=90 Normal or high G2 60-89 Mildly decreased* G3a 45-59 Mildly to moderately decreased G3b 30-44 Moderately to severely decreased G4 15-29 Severely decreased G5 <15 Kidney failure *Relative to young adult level. In the absence of evidence of kidney damage, neither GFR category G1 nor G2 fulfill the criteria for CKD. The CKD-EPI equation is validated in individuals 18 years of age and older. Currently the best equation for estimating glomerular filtration rate (GFR) from serum creatinine in children is the Bedside Azul equation. It is less accurate in patients with extremes of muscle mass, restriction of dietary protein, ingestion of creatine, extra-renal metabolism of creatinine, or treatment with medications that affect renal tubular creatinine secretion. Performed By: #### H GHCT, BMP3 #### [facility] [address] [place] [address] Chloride [Moles/Vol] 105 mmol/L Normal 98-107 [facility] Comment on above: Performed By: #### H GHCT, BMP3 #### [facility] [address] [place] [address] Sodium [Moles/Vol] 145 mmol/L Normal 135-145 [facility] Comment on above: Performed By: #### H CT, BMP3 #### [facility] [address] [place] [address] Anion gap [Moles/Vol] 15 mmol/L [place] Calcium [Mass/Vol] 9.2 mg/dL 8.4 - 10. 4 mg/dL [place] Chloride [Moles/Vol] 105 mmol/L 98 - 10 7 mmol/L [place] CO2 [Moles/Vol] 25 mmol/L 22 - 30 mmol/L [place] Creatinine [Mass/Vol] 0.63 mg/dL 0.52 - 1.25 mg/dL [place] EGFR IF NonAfrican [place] >90.0 >60 mL/min [place] Comment on above: KDIGO guidelines pro vide the following GFR categories: Stage GFR(ml/min/1.73 m2) Terms G1 >=90 Normal or high G2 60-89 Mildly decreased* G3a 45-59 Mildly to moderately decreased G3b 30-44 Moderately to severely decreased G4 15-29 Severely decreased G5 <15 Kidney failure *Relative to young adult level. In the absence of evidence of kidney damage, neither GFR category G1 nor G2 fulfill the criteria for CKD. The CKD-EPI equation is validated in individuals 18 years of age and older. Currently the best equation for estimating glomerular filtration rate (GFR) from serum creatinine in children is the Bedside Azul equation. It is less accurate in patients with extremes of muscle mass, restriction of dietary protein, ingestion of creatine, extra-renal metabolism of creatinine, or treatment with medications that affect renal tubular creatinine secretion. GFR/1.73 sq M predicted among blacks MDRD (S/P/Bld) [Vol rate/Area] mL/min/{1.73_m2} >60 mL/min [place] Glucose [Mass/Vol] 170 mg/dL High 70 - 100 mg/dL [place] Interpretation and review of laboratory results Abnormal [place] Potassium [Moles/Vol] 3.8 mmol/L 3.5 - 5.1 mmol/L [place] Sodium [Moles/Vol] 145 mmol/L 135 - 145 mmol/L [place] Urea nitrogen [Mass/Vol] 12 mg/dL 7 - 20 mg/dL [place] Test Performed by [facility], [address] [place] [address] [place] CR Chest Portableon 06-17-20 CR Chest Portable Patient Name: REMI BELTRAN Diagnostic Radiology Exam Date/Time 06/17/2020 17:47:40 EDT Exam CR Chest Portable Ordering Physician MD FRANCIS SCOTT ALAN Accession Number [id number] CPT4 Codes 44655 () Reason For Exam tachycardia Report Examination: AP portable chest Clinical Indication: tachycardia Comparison: None Findings: Lungs appear normally inflated. Trace subsegmental atelectasis in the left lower lung. There is no focal consolidation, effusion, or pulmonary edema identified. The cardiomediastinal silhouette is within normal limits. Minimal degenerative changes shoulders and spine. Impression: No acute cardiopulmonary process. Report Dictated on Final Dictated: 06/17/2020 5:43 pm Dictating Physician: MD RABAGO ANTHONY J Signed Date and Time: 06/17/2020 5:43 pm Signed by: MD RABAGO ANTHONY J Transcribed Date and Time: 06/17/2020 5:43 Normal [facility] Comp Metabolic Panelon 06-17 ALP [Catalytic activity/Vol] 115 U/L Normal 38-126 [facility] Comment on above: Performed By: #### H EMDF, CMP3, MG3, TROPN, TSH5, FT4M, T3FE, DDI2 #### [facility] [address], [place] ALT [Catalytic activity/Vol] 33 U/L Normal 0-34 [facility] Comment on above: Result Comment: The ALT test is performed by an updated assay method. Please note that the reference intervals have been changed and are now sex specific. Performed By: #### H EMDF, CMP3, MG3, TROPN, TSH5, FT4M, T3FE, DDI2 #### [place], [place] Calcium [Mass/Vol] 9.2 mg/dL Normal 8.4-10.4 [facility] Comment on above: Performed By: #### H EMDF, CMP3, MG3, TROPN, TSH5, FT4M, T3FE, DDI2 #### [facility] [address], [place] Glucose [Mass/Vol] 171 mg/dL High 70-100 [facility] Comment on above: Performed By: #### H EMDF, CMP3, MG3, TROPN, TSH5, FT4M, T3FE, DDI2 #### [facility] [address], [place] Urea nitrogen [Mass/Vol] 12 mg/dL Normal 7-20 [facility] Comment on above: Performed By: #### H EMDF, CMP3, MG3, TROPN, TSH5, FT4M, T3FE, DDI2 #### [place] [address], [place] Anion gap [Moles/Vol] 14 Normal [facility] Comment on above: Performed By: #### H EMDF, CMP3, MG3, TROPN, TSH5, FT4M, T3FE, DDI2 #### [place] [address], [place] AST [Catalytic activity/Vol] 50 U/L High 15-46 [facility] Comment on above: Performed By: #### H EMDF, CMP3, MG3, TROPN, TSH5, FT4M, T3FE, DDI2 #### [address] Bilirubin [Mass/Vol] 0.8 mg/dL Normal 0.2-1.3 [facility] Comment on above: Performed By: #### H EMDF, CMP3, MG3, TROPN, TSH5, FT4M, T3FE, DDI2 #### [place] [address], [place] CO2 [Moles/Vol] 25 mmol/L Normal 22-30 [facility] Comment on above: Performed By: #### H EMDF, CMP3, MG3, TROPN, TSH5, FT4M, T3FE, DDI2 #### [place] [address], [place] Creatinine [Mass/Vol] 0.62 mg/dL Normal 0.52-1.25 [facility] Comment on above: Performed By: #### H EMDF, CMP3, MG3, TROPN, TSH5, FT4M, T3FE, DDI2 #### [address] GFR/1.73 sq M predicted among blacks MDRD (S/P/Bld) [Vol rate/Area] mL/min/{1.73_m2} Normal >60 [facility] Comment on above: Performed By: #### H EMDF, CMP3, MG3, TROPN, TSH5, FT4M, T3FE, DDI2 #### [address] GFR/1.73 sq M predicted among non-blacks MDRD (S/P/Bld) [Vol rate/Area] mL/min/{1.73_m2} Normal >60 [facility] Comment on above: Result Comment: KDIG O guidelines provide the following GFR categories: Stage GFR(ml/min/1.73 m2) Terms G1 >=90 Normal or high G2 60-89 Mildly decreased* G3a 45-59 Mildly to moderately decreased G3b 30-44 Moderately to severely decreased G4 15-29 Severely decreased G5 <15 Kidney failure *Relative to young adult level. In the absence of evidence of kidney damage, neither GFR category G1 nor G2 fulfill the criteria for CKD. The CKD-EPI equation is validated in individuals 18 years of age and older. Currently the best equation for estimating glomerular filtration rate (GFR) from serum creatinine in children is the Bedside Azul equation. It is less accurate in patients with extremes of muscle mass, restriction of dietary protein, ingestion of creatine, extra-renal metabolism of creatinine, or treatment with medications that affect renal tubular creatinine secretion. Performed By: #### H EMDF, CMP3, MG3, TROPN, TSH5, FT4M, T3FE, DDI2 #### [address] Protein [Mass/Vol] 8.4 g/dL High 6.3-8.2 [facility] Comment on above: Performed By: #### H EMDF, CMP3, MG3, TROPN, TSH5, FT4M, T3FE, DDI2 #### [place] [address] [address], [place] Chloride [Moles/Vol] 105 mmol/L Normal 98-107 [facility] Comment on above: Performed By: #### H EMDF, CMP3, MG3, TROPN, TSH5, FT4M, T3FE, DDI2 #### [address] Potassium [Moles/Vol] 3.9 mmol/L Normal 3.5-5.1 [facility] Comment on above: Performed By: #### H EMDF, CMP3, MG3, TROPN, TSH5, FT4M, T3FE, DDI2 #### [place] [address], [place] Sodium [Moles/Vol] 145 mmol/L Normal 135-145 [facility] Comment on above: Performed By: #### H EMDF, CMP3, MG3, TROPN, TSH5, FT4M, T3FE, DDI2 #### [place], [place] Albumin [Mass/Vol] 4.5 g/dL Normal 3.5-5.0 [facility] Comment on above: Performed By: #### H EMDF, CMP3, MG3, TROPN, TSH5, FT4M, T3FE, DDI2 #### [place], [place] Complete Urinalysison 2019 Appearance (U) Clear Normal Clear [facility] Comment on above: Result Comment: . Performed By: #### H GHCT, BMP3 #### [place] [address], [place] Bilirubin,Urine Negative Normal Negative [facility] Comment on above: Result Comment: . Performed By: #### H GHCT, BMP3 #### [place] [address], [place] Cast, Hyaline 0 - 2 Abnormal Negative [facility] Comment on above: Result Comment: . Performed By: #### H GHCT, BMP3 #### [place] [address], [place] Color (U) Light-Yellow Normal Lt. Yellow [facility] Comment on above: Result Comment: . Performed By: #### H GHCT, BMP3 #### [place] [address], [place] Glucose Ql (U) > 1,000 Abnormal Normal (<70) [facility] Comment on above: Result Comment: . Performed By: #### H GHCT, BMP3 #### [place] [address], [place] Ketone,Urine Trace Abnormal Negative [facility] Comment on above: Result Comment: . Performed By: #### H GHCT, BMP3 #### [facility] [address], [place] Leukocytes,Urine Negative Normal Negative [facility] Comment on above: Result Comment: . Performed By: #### H GHCT, BMP3 #### [facility] [address], [place] Mucous Threads Few Normal Negative [facility] Comment on above: Result Comment: . Performed By: #### H GHCT, BMP3 #### [place] [address], [place] Nitrites,Urine Negative Normal Negative [facility] Comment on above: Result Comment: . Performed By: #### H GHCT, BMP3 #### [place] [address], [place] Occult Blood,Urine Negative Normal Negative [facility] Comment on above: Result Comment: . Performed By: #### H GHCT, BMP3 #### [place] [address] [place], [place] pH (U) 5.5 Normal 5.0-8.0 [facility] Comment on above: Result Comment: . Performed By: #### H GHCT, BMP3 #### [facility] [address], [place] Protein (U) [Mass/Vol] 30 mg/dL Abnormal Negative [facility] Comment on above: Result Comment: . Performed By: #### H GHCT, BMP3 #### [facility] [address], [place] RBC LM.HPF (Urine sed) [#/Area] 0 - 2 Normal 0-2 [facility] Comment on above: Result Comment: . Performed By: #### H GHCT, BMP3 #### [facility] [address], [place] Specific [place],Urine > 1.030 Abnormal 1.005 - 1.030 [facility] Comment on above: Result Comment: . Performed By: #### H GHCT, BMP3 #### [facility] [address], [place] Squamous Epithelial 0 - 2 Normal 3-5 [facility] Comment on above: Result Comment: . Performed By: #### H GHCT, BMP3 #### [facility] [address], [place] Urobilinogen,Urine Normal Normal Normal (0-1) [facility] Comment on above: Result Comment: . Performed By: #### H GHCT, BMP3 #### [facility] [address], [place] WBC LM.HPF (Urine sed) [#/Area] 0 - 2 Normal 0-5 [facility] Comment on above: Result Comment: . Performed By: #### H GHCT, BMP3 #### [facility] [address], [place] Comprehensive Metabolic Pane zahraa 06-17-2020 Albumin [Mass/Vol] 4.5 g/dL 3.5 - 5 g/dL [place] ALP [Catalytic activity/Vol] 115 U/L 38 - 126 U/L [place] ALT [Catalytic activity/Vol] 33 U/L 0 - 34 U/L [place] Comment on above: The ALT test is perf ormed by an updated assay method. Please note that the reference intervals have been changed and are now sex specific. Anion gap [Moles/Vol] 14 mmol/L [place] AST [Catalytic activity/Vol] 50 U/L High 15 - 46 U/L [place] Bilirubin Ql (U) 0.8 mg/dL 0.2 - 1.3 mg/dL [place] Calcium [Mass/Vol] 9.2 mg/dL 8.4 - 10. 4 mg/dL [place] Chloride [Moles/Vol] 105 mmol/L 98 - 10 7 mmol/L [place] CO2 [Moles/Vol] 25 mmol/L 22 - 30 mmol/L [place] Creatinine [Mass/Vol] 0.62 mg/dL 0.52 - 1.25 mg/dL [place] EGFR IF NonAfrican Australian >90.0 >60 mL/min [place] Comment on above: KDIGO guidelines pro vide the following GFR categories: Stage GFR(ml/min/1.73 m2) Terms G1 >=90 Normal or high G2 60-89 Mildly decreased* G3a 45-59 Mildly to moderately decreased G3b 30-44 Moderately to severely decreased G4 15-29 Severely decreased G5 <15 Kidney failure *Relative to young adult level. In the absence of evidence of kidney damage, neither GFR category G1 nor G2 fulfill the criteria for CKD. The CKD-EPI equation is validated in individuals 18 years of age and older. Currently the best equation for estimating glomerular filtration rate (GFR) from serum creatinine in children is the Bedside Azul equation. It is less accurate in patients with extremes of muscle mass, restriction of dietary protein, ingestion of creatine, extra-renal metabolism of creatinine, or treatment with medications that affect renal tubular creatinine secretion. GFR/1.73 sq M predicted among blacks MDRD (S/P/Bld) [Vol rate/Area] mL/min/{1.73_m2} >60 mL/min [place] Glucose [Mass/Vol] 171 mg/dL High 70 - 100 mg/dL [place] Potassium [Moles/Vol] 3.9 mmol/L 3.5 - 5.1 mmol/L [place] Protein [Mass/Vol] 8.4 g/dL High 6.3 - 8.2 g/dL [place] Sodium [Moles/Vol] 145 mmol/L 135 - 145 mmol/L [place] Urea nitrogen [Mass/Vol] 12 mg/dL 7 - 20 mg/dL [place] D-Dimer, Innovanceon 10-07-2 020 D-Dimer, Innovance 0.47 mg/L Normal 0.00-0.50 [place] [employer] [facility] Comment on above: Result Comment: Inno black D-Dimer values of <0.50 mg/L FEU can be used in combination with a pre-test probability model (e.g. Well's) to exclude pulmonary embolism (PE) disease, as well as an aid in the diagnosis of deep vein thrombosis (DVT). Performed By: #### H EMDF, CMP3, MG3, TROPN, TSH5, FT4M, T3FE, DDI2 #### [facility] [address] [id number] D-Dimer, Quantitativeon D-Dimer, Quant 0.47 mg/L 0 - 0.5 mg/L [place] Comment on above: [employer]ance D-Dimer va lues of <0.50 mg/L FEU can be used in combination with a pre-test probability model (e.g. Well's) to exclude pulmonary embolism (PE) disease, as well as an aid in the diagnosis of deep vein thrombosis (DVT). Test Performed by [facility] [address] [address] [place], [place] ED Provider Noteon 0 ED Provider Note Emergency Department Encounter [facility] EMERGENCY DEPT Patient: Remi Beltran : 1965 Date of Evaluation: 06/17/2020 ED Supervising Physician: Maria Del Rosario Segura MD I independently examined and evaluated Remi Beltran. In brief, Remi Beltran is a 54 y.o. female that presents to the emergency department evaluation for tachycardia noted while getting preop medical clearance. Focused exam: She is alert and oriented ?3. Lungs are clear to auscultation bilaterally with no wheezes or crackles appreciated. Heart tachycardic with regular rhythm. Abdomen soft nontender nondistended. Bilateral lower extremities with no edema or erythema. Brief ED course/MDM: 54-year-old presenting with tachycardia. Presentation is concerning for a cardiac etiology versus PE versus thyroid disease Workup significant for normal T3-T4 with slightly decreased thyroid-stimulating hormone, electrocardiogram sinus tachycardia, negative troponin, hypomagnesemia with magnesium 1.3 which was repleted in the emergency department, no renal function impairment, no transaminitis, no leukocytosis, no anemia, and a negative urinalysis. Patient continued to be tachycardic in the emergency department with heart rate in the 110s- 100s with blood pressure in the 100s to 1 teens. Discussed with the patient given the unclear etiology of tachycardia with start her on propranolol with the first dose given in the emergency department. I educated patient this could be rebound as she recently got discontinued from metoprolol approximately one week ago. Discussed plan for observation in the emergency department to ensure that she responds well to the propranolol. Patient verbalized understanding of information given and agreed with the plan. Admitted in stable condition. All diagnostic, treatment, and disposition decisions were made by myself in conjunction with the YANNA. For all further details of the patient's emergency department visit, please see their documentation. (Please note that portions of this note may have been completed with a voice recognition program. Efforts were made to edit the dictations but occasionally words are mis-transcribed.) Maria Del Rosario Segura MD Acute Care [facility] Maria Del Rosario Segura MD 06/17/202034 [facility] Patient: Remi Beltran : 1965 Date of Evaluation: 06/17/2020 ED YANNA Provider: Verito Tucker PA-C EDcare was supervised by Dr. Segura who independently examined and evaluated the patient. Please see their attestation note for further details. I was wearing an N95 mask, surgical mask, and goggles. Chief Complaint Chief Complaint Patient presents with ? Tachycardia pt sent over from PAT for high HR - pt denies any pain/discomfort [place] Remi Beltran is a 54 y.o. female who presents to the emergency department for evaluation of tachycardia after being sent over from the preadmission testing. She reports she recently fell and broke her nose, she has surgery scheduled tomorrow for repair of her nasal bones. Patient denies history of atrial fibrillation. Denies cardiac history of myocardial infarction and stroke. Denies pulmonary history. Denies history of blood clots and PE. Patient denies pain or discomfort at this time. Denies chest pain and shortness of breath. Denies fevers and chills. Denies abdominal pain nausea vomiting diarrhea and urinary symptoms including dysuria or increased frequency and urgency. ROS: Review of Systems At least 10 systems reviewed and otherwise acutely negative except as in the [place]. Past History Past Medical History: Diagnosis Date ? Arthritis ? Asthma ? Diabetes mellitus (HCC) ? Fibromyalgia ? Fracture of nasal bones, closed ? GERD (gastroesophageal reflux disease) ? Hyperlipidemia ? Hypertension ? DALIA on CPAP ? Thyroid disease Past Surgical History: Procedure Laterality Date ? CHOLECYSTECTOMY ? NASAL SEPTUM SURGERY ? THYROIDECTOMY ? TUBAL LIGATION Social History Socioeconomic History ? Marital status: Spouse name: Not on file ? Number of children: Not on file ? Years of education: Not on file ? Highest education level: Not on file Occupational History ? Not on file Social Needs ? Financial resource strain: Not on file ? Food insecurity Worry: Not on file Inability: Not on file ? Transportation needs Medical: Not on file Non-medical: Not on file Tobacco Use ? Smoking status: Former Smoker Packs/day: 0.50 Years: 30.00 Pack years: 15.00 Types: Cigarettes Last attempt to quit: 1996 Years since quittin.7 ? Smokeless tobacco: Never Used Substance and Sexual Activity ? Alcohol use: Yes Comment: very seldom ? Drug use: Never ? Sexual activity: Not on file Lifestyle ? Physical activity Days per week: Not on file Minutes per session: Not on file ? Stress: Not on file Relationships ? Social connections Talks on phone: Not on file Gets together: Not on file Attends yarsanism service: Not on file Active member of club or organization: Not on file Attends meetings of clubs or organizations: Not on file Relationship status: Not on file ? Intimate partner violence Fear of current or ex partner: Not on file Emotionally abused: Not on file Physically abused: Not on file Forced sexual activity: Not on file Other Topics Concern ? Not on file Social History Narrative ? Not on file Medications/Allergies Previous Medications ASPIRIN 81 MG EC TABLET Take 81 mg by mouth daily ATORVASTATIN (LIPITOR) 80 MG TABLET Take 80 mg by mouth daily CALCIUM CARBONATE (OSCAL) 500 MG TABS TABLET Take 500 mg by mouth 2 times daily CELECOXIB (CELEBREX) 200 MG CAPSULE Take 200 mg by mouth daily CILOSTAZOL (PLETAL) 100 MG TABLET Take 100 mg by mouth 2 times daily CYCLOBENZAPRINE (FLEXERIL) 10 MG TABLET Take 10 mg by mouth daily EMPAGLIFLOZIN (JARDIANCE) 25 MG TABLET Take 25 mg by mouth daily INSULIN GLARGINE (BASAGLAR KWIKPEN) 100 UNIT/ML INJECTION PEN Inject 75 Units into the skin nightly INSULIN GLARGINE (BASAGLAR KWIKPEN) 100 UNIT/ML INJECTION PEN Inject 75 Units into the skin daily LEVOTHYROXINE (SYNTHROID) 175 MCG TABLET Take 175 mcg by mouth Daily LORATADINE (CLARITIN) 10 MG TABLET Take 10 mg by mouth daily METFORMIN (GLUCOPHAGE) 1000 MG TABLET Take 1,000 mg by mouth 2 times daily (with meals) METOPROLOL (LOPRESSOR) 100 MG TABLET Take 200 mg by mouth daily MONTELUKAST (SINGULAIR) 10 MG TABLET Take 10 mg by mouth daily OMEPRAZOLE (PRILOSEC) 40 MG DELAYED RELEASE CAPSULE Take 40 mg by mouth daily PAROXETINE (PAXIL) 40 MG TABLET Take 40 mg by mouth every morning POTASSIUM CHLORIDE (KLOR-CON M) 20 MEQ EXTENDED RELEASE TABLET Take 20 mEq by mouth daily PREGABALIN (LYRICA) 150 MG CAPSULE Take 150 mg by mouth 3 times daily. VITAMIN D 25 MCG (1000 UT) CAPS Take 1,000 Units by mouth daily Allergies Allergen Reactions ? Latex Anaphylaxis ? Other Shortness Of Breath Flea and tick medicine for dogs. SOB and also Nausea and diarrhea ? Tetanus Toxoids Shortness Of Breath Nausea and diarrhea also. Physical Exam ED Triage Vitals BP Temp Temp Source Pulse Resp SpO2 Height Weight 06/17/20 1655 06/17/20 1653 06/17/20 1653 06/17/20 1653 06/17/20 1653 06/17/20 1653 06/17/20 1653 06/17/20 1653 (!) 141/74 98 ?F (36.7 ?C) Tympanic 144 18 98 % 5' 8" (1.727 m) 300 lb (136.1 kg) Physical Exam Vitals signs and nursing note reviewed. Constitutional: General: She is not in acute distress. Appearance: She is obese. She is not ill-appearing, toxic-appearing or diaphoretic. Comments: Patient is sitting in the bed. She is speaking in full sentences without difficulty. She is in no acute distress. HENT: Head: Normocephalic and atraumatic. Eyes: General: Gaze aligned appropriately. Extraocular Movements: Extraocular movements intact. Conjunctiva/sclera: Conjunctivae normal. Neck: Musculoskeletal: Full passive range of motion without pain, normal range of motion and neck supple. No neck rigidity or pain with movement. Cardiovascular: Rate and Rhythm: Regular rhythm. Tachycardia present. Pulses: Radial pulses are 2+ on the right side and 2+ on the left side. Dorsalis pedis pulses are 2+ on the right side and 2+ on the left side. Heart sounds: Normal heart sounds, S1 normal and S2 normal. Pulmonary: Effort: Pulmonary effort is normal. No accessory muscle usage or respiratory distress. Breath sounds: Normal breath sounds and air entry. Abdominal: General: Abdomen is flat. Bowel sounds are normal. Palpations: Abdomen is soft. Tenderness: There is no abdominal tenderness. There is no right CVA tenderness, left CVA tenderness or guarding. Musculoskeletal: Normal range of motion. Right lower leg: No edema. Left lower leg: No edema. Skin: General: Skin is warm. Capillary Refill: Capillary refill takes less than 2 seconds. Comments: Bilateral calves are supple and nontender. No erythema. No rash. Neurological: Mental Status: She is alert and oriented to person, place, and time. Psychiatric: Behavior: Behavior is cooperative. DIAGNOSTIC Labs: Results for orders placed or performed during the hospital encounter of 06/17/20 Comprehensive Metabolic Panel Result Value Ref Range Sodium 145 135 - 145 mmol/L Potassium 3.9 3.5 - 5.1 mmol/L Chloride 105 98 - 107 mmol/L CO2 25 22 - 30 mmol/L Anion Gap 14 NA Glucose 171 (H) 70 - 100 mg/dL BUN 12 7 - 20 mg/dL CREATININE 0.62 0.52 - 1.25 mg/dL eGFR >90.0 >60 mL/min EGFR IF NonAfrican Australian >90.0 >60 mL/min Calcium 9.2 8.4 - 10.4 mg/dL Albumin,Serum 4.5 3.5 - 5.0 g/dL Total Protein 8.4 (H) 6.3 - 8.2 g/dL Total Bilirubin 0.8 0.2 - 1.3 mg/dL Alkaline Phosphatase 115 38 - 126 U/L ALT 33 0 - 34 U/L AST 50 (H) 15 - 46 U/L Hemogram (CBC) w/Auto Diff Result Value Ref Range WBC 7.4 3.6 - 10.7 10*3/uL RBC 4.80 3.80 - 5.20 10*6/uL Hemoglobin 13.7 11.7 - 16.0 g/dL Hematocrit 41.6 35.0 - 47.0 % MCV 86.7 79.0 - 98.0 fL MCH 28.7 26.0 - 34.0 pg MCHC 33.1 32.0 - 36.0 % RDW 17.0 (H) 11.5 - 14.5 % Platelets 340 140 - 440 10*3/uL MPV 7.5 7.4 - 10.4 fL Granulocytes % 63.9 40.0 - 80.0 % Lymphocyte % 24.3 20.0 - 40.0 % Monocytes 9.0 2.0 - 10.0 % Eosinophils 2.2 1.0 - 6.0 % Basophils 0.6 0.0 - 2.0 % Absolute Neut # 4.7 1.8 - 7.0 10*3/uL Absolute Lymph # 1.8 1.0 - 4.3 10*3/uL Absolute Evangeline # 0.7 0.0 - 0.8 10*3/uL Absolute Eos # 0.2 0.0 - 0.5 10*3/uL Absolute Baso # 0.0 0.0 - 0.2 10*3/uL Magnesium Result Value Ref Range Magnesium 1.3 (L) 1.6 - 2.3 mg/dL Troponin x1 Result Value Ref Range Troponin I <0.012 0.000 - 0.034 ng/mL TSH without Reflex Result Value Ref Range TSH 0.147 (L) 0.465 - 4.680 u[IU]/mL Urinalysis Result Value Ref Range Glucose, Ur >1,000 (A) Normal (<70) mg/dL Total Protein, Urine 30 (A) Negative mg/dL Bilirubin Urine Negative Negative mg/dL Urobilinogen, Urine Normal Normal (0-1) mg/dL pH, Urine 5.5 5.0 - 8.0 NA Specific [place], Urine >1.030 (A) 1.005 - 1.030 NA Occult Blood,Urine Negative Negative mg/dL Ketones, Urine Trace (A) Negative mg/dL Nitrite, Urine Negative Negative NA LEUKOCYTES, UA Negative Negative Yajaira/uL Appearance Clear Clear NA Color, Urine Light-Yellow Lt. Yellow NA RBC, UA 0-2 0 - 2 /[HPF] WBC, UA 0-2 0 - 5 /[HPF] Squam Epithel, UA 0-2 3 - 5 /[HPF] Mucous Threads Few Negative /[LPF] Hyaline Casts, UA 0-2 (A) Negative /[LPF] Add On Lab Test Result Value Ref Range Add On Accepted NA T4, Free Result Value Ref Range T4 Free 1.54 0.78 - 2.19 ng/dL T3, Free Result Value Ref Range T3, Free 3.47 2.77 - 5.27 pg/mL Add On Lab Test Result Value Ref Range Add On Accepted NA D-Dimer, Quantitative Result Value Ref Range D-Dimer, Quant 0.47 0.00 - 0.50 mg/L Radiographs: Xr Chest Portable Result Date: 06/17/2020 Patient Name: REMI BELTRAN ---Diagnostic Radiology--- Exam Date/Time 06/17/2020 17:47:40 EDT Exam CR Chest Portable Ordering Physician MD FRANCIS SCOTT ALAN Accession Number [id number] CPT4 Codes 17612 () Reason For Exam tachycardia Report Examination: AP portable chest Clinical Indication: tachycardia Comparison: None Findings: Lungs appear normally inflated. Trace subsegmental atelectasis in the left lower lung. There is no focal consolidation, effusion, or pulmonary edema identified. The cardiomediastinal silhouette is within normal limits. Minimal degenerative changes shoulders and spine. Impression: No acute cardiopulmonary process. Report Dictated on --- Final --- Dictated: 06/17/2020 5:43 pm Dictating Physician: MD RABAGO ANTHONY J Signed Date and Time: 06/17/2020 5:43 pm Signed by: MD RABAGO ANTHONY J Transcribed Date and Time: 06/17/2020 5:43 EKG: All EKG's areinterpreted by the Emergency Department Physician in the absence of a meter maintenance person. see their note for interpretation of EKG. ED Course and MDM In brief, Remi Beltran erica 54 y.o. female who presented to the emergency department for evaluation of tachycardia. See history of present illness for further details. Old records were obtained in patient's EMR which revealed patient fell on 06/12/2020 resulting in a nasal bone fracture. Patient is following with Dr. Sexton with surgery previously scheduled for surgical repair tomorrow 06/18/2020. Upon examination, the patient did not appear to septic or toxic. No evidence of focal deficits or weakness. Patient is stable and speaking in full sentences. Blood pressure 111/69. Temperature 90.8. Tachycardic at 136. Respirations 18. Oxygen saturation 95% on room air. Labs and imaging were ordered and reviewed. Complete blood count reveals no leukocytosis. No anemia. Complete metabolic panel within appropriate limits. Magnesium slightly low at 1.3. Troponin negative. Urinalysis reveals no signs of acute infection. Glucose >1000 in urine. Specific gravity >1.030. Thyroid-stimulating hormone low at 0.147 Free T3 3.47 Free T4 1.54 Ddimer normal. Radiographs of the chest was obtained and interpreted by the radiologist and reveal no acute cardiopulmonary process. ED Course as of Jun 17 2132MonJun 17, [id number] Electrocardiogram with sinus tachycardia with a heart rate of [address] elevations or depressions concerning for STEMI. QTc 467. [PK] ED Course User Index [PK] Maria Del Rosario Segura MD Patient started on IV fluids. Also repleting magnesium, will give 2g. Upon reassessment patient's tachycardia has decreased from 144-136. Patient continues to deny pain and discomfort. She is still stable and speaking in full sentences without difficulty. We spoke with the pharmacist here at the hospital. Originally we ordered IV propranolol for patient's tachycardia. However he did speak with the pharmacist a second time who recommended 5 mg IV metoprolol instead. Upon reassessment patient's tachycardia improved to 115. Patient impression and work-up is most consistent with tachycardia. Patient will be admitted to [facility] service under Dr. Ridley for further evaluation and management of tachycardia. Patient stable at this time. Blood pressure 102/63. Temperature 98. Pulse 118. Respirations 18. Oxygen saturation 92% on room air. ED Medication Orders (From admission, onward) Start Ordered Status Ordering Provider 06/17/20 2100 06/17/202051 metoprolol (LOPRESSOR) injection 5 mg ONCE Last NOV action: Given - by ANTONI GUTIERRES on 06/17/20 at 205 VERITO TUCKER 06/17/20 1845 06/17/20 1835 magnesium sulfate 2 g in 50 mL IVPB premix ONCE Last NOV action: New Bag - by ANTONI GUTIERRES on 06/17/20 at 1931 VREITO TUCKER 06/17/20 1730 06/17/20 1726 0.9 % sodium chloride bolus ONCE Last MAR action: Stopped - by ANTONI GUTIERRES on 06/17/20 at 1940 VERITO TUCKER Final Impression 1. Tachycardia DISPOSITION Decision To Admit 06/17/2020 08:29:06 PM (Please note that portions of this note may have been completed with a voice recognition program. Efforts were made to edit the dictations but occasionally words aremis-transcribed.) Verito Tucker PA-C [employer] Verito Tucker PA-C 06/17/20 2357 Normal [facility] Free T4on 06-17-2020 Free T4 [Mass/Vol] 1.54 ng/dL Normal 0.78-2.19 [facility] Comment on above: Performed By: #### H EMDF, CMP3, MG3, TROPN, TSH5, FT4M, T3FE, DDI2 #### [address] Hemoglobin AND Hematocriton 06-17-2020 Hematocrit (Bld) [Volume fraction] 41.9 % Normal 35.0-47.0 [facility] Comment on above: Performed By: #### H ANAMARIA BMP3 #### [address] Hemoglobin (Bld) [Mass/Vol] 13.9 g/dL Normal 11.7-16.0 [facility] Comment on above: Performed By: #### H ANAMARIA BMP3 #### [address] Hemoglobin and Hematocrit, B loodon 06-17-2020 Hematocrit (Bld) [Volume fraction] 41.9 % 35 - 47 % [place] Hemoglobin (Bld) [Mass/Vol] 13.9 g/dL 11.7 - 16 g/dL [place] Test Performed by [id number] [place] [address] Hemogram (CBC) w/Auto Diffon 06-17-2020 Absolute Baso # 0.0 10*3/uL 0 - 0.2 10*3/uL [place] Absolute Neut # 4.7 10*3/uL 1.8 - 7 10*3/uL [place] Basophils/100 WBC (Bld) 0.6 % 0 - 2 % [facility] [place] [place] Eosinophils (Bld) [#/Vol] 0.2 10*3/uL 0 - 0.5 10*3/uL [place] Eosinophils/100 WBC (Bld) 2.2 % 1 - 6 % [place] Erythrocyte distribution width (RBC) [Ratio] 17.0 % High 11.5 - 14.5 % [place] Granulocytes/100 WBC (Bld) 63.9 % 40 - 80 % [place] Hematocrit (Bld) [Volume fraction] 41.6 % 35 - 47 % [place] Hemoglobin (Bld) [Mass/Vol] 13.7 g/dL 11.7 - 16 g/dL [place] Interpretation and review of laboratory results Abnormal [place], [place] Lymphocytes (Bld) [#/Vol] 1.8 10*3/uL 1 - 4.3 10*3/uL [place] Lymphocytes/100 WBC (Bld) 24.3 % 20 - 40 % [place] MCH (RBC) [Entitic mass] 28.7 pg 26 - 34 pg [place] MCHC (RBC) [Mass/Vol] 33.1 % 32 - 36 % [place] MCV (RBC) [Entitic vol] 86.7 fL 79 - 98 fL [place], [place] Monocytes (Bld) [#/Vol] 0.7 10*3/uL 0 - 0.8 10*3/uL [place] Monocytes/100 WBC (Bld) 9.0 % 2 - 10 % [place] Platelet mean volume (Bld) [Entitic vol] 7.5 fL 7.4 - 10.4 fL [place] Platelets (Bld) [#/Vol] 340 10*3/uL 140 - 440 10*3/uL [place] RBC (Bld) [#/Vol] 4.80 10*6/uL 3.8 - 5.2 10*6/uL [place] WBC (Bld) [#/Vol] 7.4 10*3/uL 3.6 - 10.7 10*3/uL [place], [place] Test Performed by [facility], [address] [place] [address] [place], [place] Hemogram w/ Autodiffon 06-17 Abs Baso Cnt 0.0 10*3/uL Normal 0.0-0.2 [facility] Comment on above: Performed By: #### H EMDF, CMP3, MG3, TROPN, TSH5, FT4M, T3FE, DDI2 #### [address] Abs Neutrophile Cnt 4.7 10*3/uL Normal 1.8-7.0 [facility] Comment on above: Performed By: #### H EMDF, CMP3, MG3, TROPN, TSH5, FT4M, T3FE, DDI2 #### [address] Basophils/100 WBC (Bld) 0.6 % Normal 0.0-2.0 [facility] Comment on above: Performed By: #### H EMDF, CMP3, MG3, TROPN, TSH5, FT4M, T3FE, DDI2 #### [address] Eosinophils (Bld) [#/Vol] 0.2 10*3/uL Normal 0.0-0.5 [facility] Comment on above: Performed By: #### H EMDF, CMP3, MG3, TROPN, TSH5, FT4M, T3FE, DDI2 #### [address] Eosinophils/100 WBC (Bld) 2.2 % Normal 1.0-6.0 [facility] Comment on above: Performed By: #### H EMDF, CMP3, MG3, TROPN, TSH5, FT4M, T3FE, DDI2 #### [address] Erythrocyte distribution width (RBC) [Ratio] 17.0 % High 11.5-14.5 [facility] Comment on above: Performed By: #### H EMDF, CMP3, MG3, TROPN, TSH5, FT4M, T3FE, DDI2 #### [address] Granulocytes/100 WBC (Bld) 63.9 % Normal 40.0-80.0 [facility] Comment on above: Performed By: #### H EMDF, CMP3, MG3, TROPN, TSH5, FT4M, T3FE, DDI2 #### [address] Hematocrit (Bld) [Volume fraction] 41.6 % Normal 35.0-47.0 [facility] Comment on above: Performed By: #### H EMDF, CMP3, MG3, TROPN, TSH5, FT4M, T3FE, DDI2 #### [address] Hemoglobin (Bld) [Mass/Vol] 13.7 g/dL Normal 11.7-16.0 [facility] Comment on above: Performed By: #### H EMDF, CMP3, MG3, TROPN, TSH5, FT4M, T3FE, DDI2 #### [address] Lymphocytes (Bld) [#/Vol] 1.8 10*3/uL Normal 1.0-4.3 [facility] Comment on above: Performed By: #### H EMDF, CMP3, MG3, TROPN, TSH5, FT4M, T3FE, DDI2 #### [address] Lymphocytes/100 WBC (Bld) 24.3 % Normal 20.0-40.0 [facility] Comment on above: Performed By: #### H EMDF, CMP3, MG3, TROPN, TSH5, FT4M, T3FE, DDI2 #### [address] MCH (RBC) [Entitic mass] 28.7 pg Normal 26.0-34.0 [facility] Comment on above: Performed By: #### H EMDF, CMP3, MG3, TROPN, TSH5, FT4M, T3FE, DDI2 #### [address] MCHC (RBC) [Mass/Vol] 33.1 % Normal 32.0-36.0 [facility] Comment on above: Performed By: #### H EMDF, CMP3, MG3, TROPN, TSH5, FT4M, T3FE, DDI2 #### [address] MCV (RBC) [Entitic vol] 86.7 fL Normal 79.0-98.0 [facility] Comment on above: Performed By: #### H EMDF, CMP3, MG3, TROPN, TSH5, FT4M, T3FE, DDI2 #### [address] Monocytes (Bld) [#/Vol] 0.7 10*3/uL Normal 0.0-0.8 [facility] Comment on above: Performed By: #### H EMDF, CMP3, MG3, TROPN, TSH5, FT4M, T3FE, DDI2 #### [address] Monocytes/100 WBC (Bld) 9.0 % Normal 2.0-10.0 [facility] Comment on above: Performed By: #### H EMDF, CMP3, MG3, TROPN, TSH5, FT4M, T3FE, DDI2 #### [address] Platelet mean volume (Bld) [Entitic vol] 7.5 fL Normal 7.4-10.4 [facility] Comment on above: Performed By: #### H EMDF, CMP3, MG3, TROPN, TSH5, FT4M, T3FE, DDI2 #### [address] Platelets (Bld) [#/Vol] 340 10*3/uL Normal 140-440 [facility] Comment on above: Performed By: #### H EMDF, CMP3, MG3, TROPN, TSH5, FT4M, T3FE, DDI2 #### [address] RBC (Bld) [#/Vol] 4.80 10*6/uL Normal 3.80-5.20 [facility] Comment on above: Performed By: #### H EMDF, CMP3, MG3, TROPN, TSH5, FT4M, T3FE, DDI2 #### [facility] [address], [place] WBC (Bld) [#/Vol] 7.4 10*3/uL Normal 3.6-10.7 [facility] Comment on above: Performed By: #### H EMDF, CMP3, MG3, TROPN, TSH5, FT4M, T3FE, DDI2 #### [place] [address] [address], [place] Magnesiumon 06-17-2020 Magnesium [Mass/Vol] 1.3 mg/dL Low 1.6-2.3 [facility] Comment on above: Performed By: #### H EMDF, CMP3, MG3, TROPN, TSH5, FT4M, T3FE, DDI2 #### [address] Magnesium [Mass/Vol] 1.3 mg/dL Low 1.6 - 2 .3 mg/dL [place], [place] Otheron 06-17-2020 Test Performed by [address] [address] [place], [place] Interpretation and review of laboratory results Abnormal [place], [place] Test Performed by [address] [address] [place] T3, Freeon 06-17-2020 Free T3 [Mass/Vol] 3.47 pg/mL Normal 2.77-5.27 [facility] Comment on above: Result Comment: . Performed By: #### H EMDF, CMP3, MG3, TROPN, TSH5, FT4M, T3FE, DDI2 #### [address] [address] Free T3 [Mass/Vol] 3.47 pg/mL 2.77 - 5.27 pg/mL [place], [place] Comment on above: . T4, Freeon 06-17-2020 Free T4 [Mass/Vol] 1.54 ng/dL 0.78 - 2.19 ng/dL [place] TSH without Reflexon 020 Interpretation and review of laboratory results Abnormal [place], [place] TSH Qn 0.147 u[IU]/mL Low 0.465 - 4.68 u[IU]/mL [place] Test Performed by [facility], [address] [place] [id number] [place] [address] Thyroid Stim. Hormoneon Thyroid Stim. Hormone 0.147 u[IU]/mL Low 0.46 5-4.68 0 [facility] Comment on above: Performed By: #### H EMDF, CMP3, MG3, TROPN, TSH5, FT4M, T3FE, DDI2 #### [address] [address] Troponin Ion 06-17-2020 Troponin I.cardiac [Mass/Vol] ng/mL Normal 0.000-0.03 4 [facility] Comment on above: Result Comment: . Performed By: #### H EMDF, CMP3, MG3, TROPN, TSH5, FT4M, T3FE, DDI2 #### [address] [address] Troponin x1on 06-17-2020 Troponin I.cardiac [Mass/Vol] ng/mL 0 - 0.034 ng/mL [place] Comment on above: . Test Performed by [facility], [address] [place] [id number] [place] [address] Urinalysison 06-17-2020 Appearance (U) Clear Clear NA [place], [place] Comment on above: . Bilirubin Urine Negative Negative mg/dL [place] Comment on above: . Color (U) Light-Yellow Lt. Yellow NA [place] Comment on above: . Glucose, Ur >1,000 Abnormal Normal (<70) mg/dL [place] Comment on above: . Hyaline Casts, UA 0-2 Abnormal Negative /[LPF] [place] Comment on above: . Interpretation and review of laboratory results Abnormal [place] Ketones Ql (U) Trace Abnormal Negative mg/dL [place] Comment on above: . LEUKOCYTES, UA Negative Negative Yajaira/uL [place] Comment on above: . Mucous Threads Few Negative /[LPF] [place] Comment on above: . Nitrite, Urine Negative Negative NA [place] Comment on above: . Occult Blood,Urine Negative Negative mg/dL [place] Comment on above: . pH (U) 5.5 [pH] [place] Comment on above: . Protein (U) [Mass/Vol] 30 mg/dL Abnormal Negative [place], [place] Comment on above: . RBC (U) [#/Vol] 0-2 0 - 2 /[HPF] [place] Comment on above: . Specific [place], Urine >1.030 Abnormal M [place], [place] Comment on above: . Squam Epithel, UA 0-2 3 - 5 /[HPF] [place] Comment on above: . Urobilinogen, Urine Normal Normal (0-1) mg/dL [place] Comment on above: . WBC, UA 0-2 0 - 5 /[HPF] [place] Comment on above: . Test Performed by [facility], [address] [place] [address] [place] XR CHEST PORTABLEon 06-17-20 Geovanny, [place] [facility] - 06/17/2020 5:48 PM EDT Patient Name: REMI BELTRAN ---Diagnostic Radiology--- Exam Date/Time 06/17/2020 17:47:40 EDT Exam CR Chest Portable Ordering Physician MD FRANCIS SCOTT ALAN Accession Number [id number] CPT4 Codes 77805 () Reason For Exam tachycardia Report Examination: AP portable chest Clinical Indication: tachycardia Comparison: None Findings: Lungs appear normally inflated. Trace subsegmental atelectasis in the left lower lung. There is no focal consolidation, effusion, or pulmonary edema identified. The cardiomediastinal silhouette is within normal limits. Minimal degenerative changes shoulders and spine. Impression: No acute cardiopulmonary process. Report Dictated on --- Final --- Dictated: 06/17/2020 5:43 pm Dictating Physician: MD RABAGO ANTHONY J Signed Date and Time: 06/17/2020 5:43 pm Signed by: MD RABAGO ANTHONY J Transcribed Date and Time: 06/17/2020 5:43 [place] Patient Name: REMI BELTRAN ---Diagnostic Radiology--- Exam Date/Time 06/17/2020 17:47:40 EDT Exam CR Chest Portable Ordering Physician MD FRANCIS SCOTT ALAN Accession Number [id number] CPT4 Codes 04760 () Reason For Exam tachycardia Report Examination: AP portable chest Clinical Indication: tachycardia Comparison: None Findings: Lungs appear normally inflated. Trace subsegmental atelectasis in the left lower lung. There is no focal consolidation, effusion, or pulmonary edema identified. The cardiomediastinal silhouette is within normal limits. Minimal degenerative changes shoulders and spine. Impression: No acute cardiopulmonary process. Report Dictated on --- Final --- Dictated: 06/17/2020 5:43 pm Dictating Physician: MD RABAGO ANTHONY J Signed Date and Time: 06/17/2020 5:43 pm Signed by: MD RABAGO ANTHONY J Transcribed Date and Time: 06/17/2020 5:43 [place] Office Visiton 01-06-2017 Documentation of current medications (procedure) Done Invalid Interpretation Code [facility] Work Phone: Tobacco smoking status NHIS Never Invalid Interpretation Code [facility] Work Phone: [phone] Tobacco use CPHS Former smoker Invalid Interpretation Code [facility] Work Phone: [phone] Microbiology: Influenza A+B (Rapid CAROLANN)on 11-28-2016 GE use only - for LinkLogic import when terms are not otherwise specified . Invalid Interpretation Code [facility] Work Phone: [phone] Office Visit: osteo R great toe s/p S.aureus bacteremia/sepsis, [id number] 10-19-2016 Adolescent depression screening assessment Adolescent depression screening assessment Invalid Interpretation Code [facility] Work Phone: [phone] Adult depression screening assessment Adult depression screening assessment Invalid Interpretation Code [facility] Work Phone: [phone] Lab Report: Basic Metabolic Profile (BMP)on 10-17-2016 Anion gap 9 mmol/L Invalid Interpretation Code 5-15 [facility] Work Phone: [phone] BUN/Creatinine Ratio 23.2 RATIO High 10-20 [facility] Work Phone: [phone] Calcium 7.5 mg/dL Low 8.5-10.1 [facility] Work Phone: [phone] Chloride 105 mmol/L Invalid Interpretation Code 98-107 [facility] Work Phone: [phone] CO2 27.0 mmol/L Invalid Interpretation Code 21.0-32.0 [facility] Work Phone: [phone] Creatinine 0.56 mg/dL Invalid Interpretation Code 0.55-1.02 [facility] Work Phone: [phone] eGFR (non-black) 146 mL/min/{1.73_m2} Invalid Interpretation Code >60 [facility] Work Phone: [phone] eGFR (non-black) 121 mL/min/{1.73_m2} Invalid Interpretation Code >60 [facility] Work Phone: [phone] Glucose 114 mg/dL High 70-110 [facility] Work Phone: [phone] Potassium 4.3 mmol/L Invalid Interpretation Code 3.5-5.1 [facility] Work Phone: [phone] Sodium 141 mmol/L Invalid Interpretation Code 136-145 [facility] Work Phone: [phone] Urea nitrogen 13 mg/dL Invalid Interpretation Code 7-18 [facility] Work Phone: [phone] Lab Report: CRPon 10-17-2016 C reactive protein (CRP) 0.979 mg/dL High Uni ts converted. See lab report for original value. [facility] Work Phone: [phone] Lab Report: Erythrocyte Sed Rateon 10-17-2016 Erythrocyte sedimentation rate 51 mm/h High 0-30 [facility] Work Phone: [phone] Replaced Document: (P) CBC-C omplete Blood Cnt No Diffon 10-17-2016 Erythrocytes (RBC) 3.95 10*6/uL Low 4.2-5.4 [facility] Work Phone: [phone] Hematocrit (HCT) 38.2 % Invalid Interpretation Code 37-47 [facility] Work Phone: [phone] Hemoglobin (HGB) 12.2 g/dL Invalid Interpretation Code 12.0-15.0 [facility] Work Phone: [phone] MCH 30.9 pg Invalid Interpretation Code 27.0-32.0 [facility] Work Phone: [phone] MCHC 31.9 G/GL Low 32-36 [facility] Work Phone: [phone] MCV 96.7 fL Invalid Interpretation Code 81-99 [facility] Work Phone: [phone] Platelets 212 10*3/mm3 Invalid Interpretation Code 150-450 [facility] Work Phone: [phone] PMV by Mayank-Matilde 9.6 fL Invalid Interpretation Code 6.2-12.0 [facility] Work Phone: [phone] RDW-CA 15.0 % High 11.6-14.6 [facility] Work Phone: [phone] red blood cell distribution width, size density 52.6 fL High 35.1-43.9 [facility] Work Phone: [phone] WBC (Leukocytes) 5.5 10*3/uL Invalid Interpretation Code 4.4-11.0 [facility] Work Phone: [phone] Replaced Document: (P) CBC W /Diff, Automatedon 05-27-2016 Basophils/100 leukocytes 0.3 % Invalid Interpretation Code 0-1 [facility] Work Phone: [phone] Eosinophils/100 leukocytes 3.3 % Invalid Interpretation Code 0-5 [facility] Work Phone: [phone] immature granulocytes, percentage of total cells, blood 0.200 % Invalid Interpretation Code 0.0-0.9 [facility] Work Phone: [phone] Lymphocytes 2.36 X10 3/UL Invalid Interpretation Code 0.83-4.51 [facility] Work Phone: [phone] Lymphocytes/100 leukocytes 35.8 % Invalid Interpretation Code 19-41 [facility] Work Phone: [phone] Monocytes/100 leukocytes 9.7 % Invalid Interpretation Code 0-10 [facility] Work Phone: [phone] neutrophil count, blood 3.3 X10 3/UL Invalid Interpretation Code 2.0-7.7 [facility] Work Phone: [phone] Neutrophils/100 leukocytes 50.7 % Invalid Interpretation Code 47-70 [facility] Work Phone: [phone] Replaced Document: (P) CBC W /Diff, Automatedon 10-20-2014 Absolute Neutrophil count 2.8 X10 3/UL Invali d Interpretation Code 2.0-7.7 [facility] Work Phone: [phone] Replaced Document: Geeta gama Metabolic Profilon 10-20-2014 Alanine aminotransferase (ALT) 55 U/L Invalid Interpretation Code 12-78 [facility] Work Phone: [phone] Albumin 3.4 g/dL Invalid Interpretation Code 3.4-5.0 [facility] Work Phone: [phone] Albumin/Globulin Ratio 0.8 {ratio} Critically low 0.9-2.4 [facility] Work Phone: [phone] Aspartate aminotransferase (AST) 47 U/L Critically high 15-37 [facility] Work Phone: [phone] Bilirubin (total) 0.40 mg/dL Invalid Interpretation Code 0.00-4.00 [facility] Work Phone: [phone] Globulin 4.2 g/dL Invalid Interpretation Code 2.7-4.2 [facility] Work Phone: [phone] Protein 7.6 g/dL Invalid Interpretation Code 6.4-8.2 [facility] Work Phone: [phone] Replaced Document: Thyroid S frank Hormone (TSH)on 10-20-2014 Thyroid stimulating hormone (TSH) 0.05 u[iU]/mL Critically low 0.358-3.74 [facility] Work Phone: [phone] Panel Information Influenza Types A,B Direct FA (SALLY) [facility] Work Phone: Nasal Screen MRSA/MSSA [facility] Work Phone: RSV Ag EIA RSV Ag Immune stain Ql (Tiss) [facility] Work Phone: Vital Signs Date Time Vital Sign Value Performing Clinician Facility 11-18-2024 15:17-0400 Body mass index (BMI) [Ratio] 34.9 kg/m2 Dr. Gulshan Early MD Work Phone: [facility] 11-18-2024 15:17-0400 Body temperature 97.4 [degF] Dr. Gulshan Early MD Work Phone: [facility] 11-18-2024 15:17-0400 Diastolic blood pressure 77 mm[Hg] Dr. Gulshan Early MD Work Phone: [facility] 11-18-2024 15:17-0400 Heart rate 94 /min Dr. Gulshan Early MD Work Phone: [facility] 11-18-2024 15:17-0400 Respiratory rate 16 /min Dr. Gulshan Early MD Work Phone: [facility] 11-18-2024 15:17-0400 Systolic blood pressure 137 mm[Hg] Dr. Gulshan Early MD Work Phone: [facility] 11-09-2024 01:52-0500 Body weight 104.[address] Gulshan Early MD Work Phone: [facility] 10-28-2024 15:19-0500 Body mass index (BMI) [Ratio] 34.9 kg/m2 Dr. Gulshan Early MD Work Phone: [facility] 10-28-2024 15:19-0500 Body temperature 96.5 [degF] Dr. Gulshan Early MD Work Phone: [facility] 10-28-2024 15:19-0500 Diastolic blood pressure 64 mm[Hg] Dr. Gulshan Early MD Work Phone: [facility] 10-28-2024 15:19-0500 Heart rate 84 /min Dr. Gulshan Early MD Work Phone: [facility] 10-28-2024 15:19-0500 Respiratory rate 18 /min Dr. Gulshan Early MD Work Phone: [facility] 10-28-2024 15:19-0500 Systolic blood pressure 171 mm[Hg] Dr. Gulshan Early MD Work Phone: [facility] 10-12-2024 00:58-0500 Body weight 104.[address] Gulshan Early MD Work Phone: 6(001)090-279554 [place] [address] 10-07-2024 15:21-0500 Body mass index (BMI) [Ratio] 34.9 kg/m2 Dr. Gulshan Early MD Work Phone: 1(512)778-299654 [place] [address] 10-07-2024 15:21-0500 Body temperature 96.9 [degF] Dr. Gulshan Early MD Work Phone: 6(301)107-389492 [place] [address] 10-07-2024 15:21-0500 Diastolic blood pressure 70 mm[Hg] Dr. Gulshan Early MD Work Phone: 5(798)319-178792 [place] [address] 10-07-2024 15:21-0500 Heart rate 103 /min Dr. Gulshan Early MD Work Phone: 2(480)600-381092 [place] [address] 10-07-2024 15:21-0500 Respiratory rate 16 /min Dr. Gulshan Early MD Work Phone: 0(182)898-138192 [place] [address] 10-07-2024 15:21-0500 Systolic blood pressure 126 mm[Hg] Dr. Gulshan Early MD Work Phone: 7(189)688-196092 [place] [address] 09-11-2024 00:38-0500 Body weight 104.[address] Gulshan Early MD Work Phone: 2(695)349-634092 [place] [address] 09-09-2024 15:47-0500 Body mass index (BMI) [Ratio] 34.9 kg/m2 Dr. Gulshan Early MD Work Phone: 0(307)436-336454 [place] [address] 09-09-2024 15:47-0500 Body temperature 96.4 [degF] Dr. Gulshan Early MD Work Phone: 9(158)167-526992 [place] [address] 09-09-2024 15:47-0500 Diastolic blood pressure 80 mm[Hg] Dr. Gulshan Early MD Work Phone: 0(074)051-143292 [place] [address] 09-09-2024 15:47-0500 Heart rate 72 /min Dr. Gulshan Early MD Work Phone: 8(237)895-564354 [place] [address] 09-09-2024 15:47-0500 Respiratory rate 16 /min Dr. Gulshan Early MD Work Phone: [facility] 09-09-2024 15:47-0500 Systolic blood pressure 136 mm[Hg] Dr. Gulshan Early MD Work Phone: 6(136)616-080554 [place] [address] 08-23-2024 15:01-0500 Body temperature 97.8 [degF] Dr. Gulshan Early MD Work Phone: 8(118)351-405592 [place] [address] 08-23-2024 15:01-0500 Diastolic blood pressure 70 mm[Hg] Dr. Gulshan Early MD Work Phone: 7(725)875-502154 [place] [address] 08-23-2024 15:01-0500 Heart rate 58 /min Dr. Gulshan Early MD Work Phone: 0(729)769-212692 [place] [address] 08-23-2024 15:01-0500 Respiratory rate 16 /min Dr. Gulshan Early MD Work Phone: 4(528)656-497792 [place] [address] 08-23-2024 15:01-0500 SaO2% (BldA) [Mass fraction] 97 % Dr. Gulshan Early MD Work Phone: 6(225)024-197254 [place] [address] 08-23-2024 15:01-0500 Systolic blood pressure 124 mm[Hg] Dr. Gulshan Early MD Work Phone: 3(453)406-729192 [place] [address] 08-22-2024 13:05-0500 Body height 172.[address] Gulshan Early MD Work Phone: 9(125)967-767254 [place] [address] 08-22-2024 13:05-0500 Body weight 102.[address] Gulshan Early MD Work Phone: 7(647)007-110592 [place] [address] 08-21-2024 14:34-0500 Body mass index (BMI) [Ratio] 34.4 kg/m2 Dr. Gulshan Early MD Work Phone: 7(219)366-493454 [place] [address] 08-11-2024 00:20-0500 Body weight 104.[address] Gulshan Early MD Work Phone: 8(198)110-712992 [place] [address] 11-02-2023 09:19-0500 Body mass index (BMI) [Ratio] 31.3 kg/m2 [facility] 11-02-2023 09:19-0500 Diastolic blood pressure 74 mm[Hg] [facility] 11-02-2023 09:19-0500 Heart rate 76 /min [facility] 11-02-2023 09:19-0500 Respiratory rate 18 /min [facility] 11-02-2023 09:19-0500 Systolic blood pressure 132 mm[Hg] [facility] 10-19-2023 10:01-0500 Body height 172.72 cm [facility] 10-19-2023 10:01-0500 Body temperature 96.5 [degF] [facility] 10-19-2023 10:01-0500 Body weight 93.44 kg [facility] 05-29-2023 13:41-0400 Body height 172.[address] Gulshan Early Work Phone: [facility] 05-29-2023 13:41-0400 Body mass index (BMI) [Ratio] 35.2 kg/m2 Dr. Gulshan Early Work Phone: [facility] 05-29-2023 13:41-0400 Body temperature 98.2 [degF] Dr. Gulshan Early Work Phone: [facility] 05-29-2023 13:41-0400 Body weight [address] Gulshan Early Work Phone: [facility] 05-29-2023 13:41-0400 Diastolic blood pressure 72 mm[Hg] Dr. Gulshan Early Work Phone: [facility] 05-29-2023 13:41-0400 Heart rate 74 /min Dr. Gulshan Early Work Phone: [facility] 05-29-2023 13:41-0400 Respiratory rate 16 /min Dr. Gulshan Early Work Phone: [facility] 05-29-2023 13:41-0400 SaO2% (BldA) [Mass fraction] 97 % Dr. Gulshan Early Work Phone: [facility] 09-18-2023 13:41-0400 Systolic blood pressure 130 mm[Hg] Dr. Gulshan Early Work Phone: [facility] 04-10-2023 09:54-0400 Body mass index (BMI) [Ratio] 36.1 kg/m2 Dr. Gulshan Early Work Phone: [facility] 04-10-2023 09:54-0400 Body temperature 98.2 [degF] Dr. Gulshan Early Work Phone: [facility] 04-10-2023 09:54-0400 Body weight 107.[address] Gulshan Early Work Phone: [facility] 04-10-2023 09:54-0400 Diastolic blood pressure 80 mm[Hg] Dr. Gulshan Early Work Phone: [facility] 04-10-2023 09:54-0400 Heart rate 78 /min Dr. Gulshan Early Work Phone: [facility] 04-10-2023 09:54-0400 Respiratory rate 16 /min Dr. Gulshan Early Work Phone: [facility] 04-10-2023 09:54-0400 SaO2% (BldA) [Mass fraction] 97 % Dr. Gulshan Early Work Phone: [facility] 04-10-2023 09:54-0400 Systolic blood pressure 128 mm[Hg] Dr. Gulshan Early Work Phone: [facility] 03-20-2023 14:56-0400 Body temperature 97.2 [degF] Dr. Gulshan Early Work Phone: [facility] 03-20-2023 14:56-0400 Diastolic blood pressure 77 mm[Hg] Dr. Gulshan Early Work Phone: [facility] 03-20-2023 14:56-0400 Heart rate 62 /min Dr. Gulshan Early Work Phone: [facility] 03-20-2023 14:56-0400 Respiratory rate 16 /min Dr. Gulshan Early Work Phone: [facility] 03-20-2023 14:56-0400 SaO2% (BldA) [Mass fraction] 98 % Dr. Gulshan Early Work Phone: [facility] 03-20-2023 14:56-0400 Systolic blood pressure 134 mm[Hg] Dr. Gulshan Early Work Phone: [facility] 03-15-2023 13:54-0400 Body height 172.[address] Gulshan Early Work Phone: [facility] 03-15-2023 13:54-0400 Body weight 110.[address] Gulshan Early Work Phone: [facility] 03-14-2023 13:29-0400 Body mass index (BMI) [Ratio] 37 kg/m2 Dr. Gulshan Early Work Phone: [facility] 03-08-2023 21:53-0400 Inhaled oxygen concentration 21 % Dr. Gulshan Early Work Phone: [facility] 03-07-2023 12:29-0400 Body temperature 97.8 [degF] Dr. Gulshan Early Work Phone: [facility] 03-07-2023 12:29-0400 Diastolic blood pressure 60 mm[Hg] Dr. Gulshan Early Work Phone: [facility] 03-07-2023 12:29-0400 Heart rate 58 /min Dr. Gulshan Early Work Phone: [facility] 03-07-2023 12:29-0400 Respiratory rate 16 /min Dr. Gulshan Early Work Phone: [facility] 03-07-2023 12:29-0400 SaO2% (BldA) [Mass fraction] 96 % Dr. Gulshan Early Work Phone: [facility] 03-07-2023 12:29-0400 Systolic blood pressure 146 mm[Hg] Dr. Gulshan Early Work Phone: [facility] 03-03-2023 12:30-0400 Body height 172.[address] Gulshan Early Work Phone: [facility] 03-03-2023 12:30-0400 Body weight 110.[address] Gulshan Early Work Phone: [facility] 03-02-2023 14:20-0400 Inhaled oxygen flow rate 6 L/min Dr. Gulshan Early Work Phone: [facility] 03-02-2023 10:53-0400 Body mass index (BMI) [Ratio] 37.1 kg/m2 Dr. Gulshan Early Work Phone: [facility] 03-01-2023 12:27-0400 Body temperature 97.8 [degF] Dr. Gulshan Early Work Phone: [facility] 03-01-2023 12:27-0400 Diastolic blood pressure 80 mm[Hg] Dr. Gulshan Early Work Phone: [facility] 03-01-2023 12:27-0400 Heart rate 86 /min Dr. Gulshan Early Work Phone: [facility] 03-01-2023 12:27-0400 Respiratory rate 18 /min Dr. Gulshan Early Work Phone: [facility] 03-01-2023 12:27-0400 SaO2% (BldA) [Mass fraction] 98 % Dr. Gulshan Early Work Phone: [facility] 03-01-2023 12:27-0400 Systolic blood pressure 142 mm[Hg] Dr. Gulshan Early Work Phone: [facility] 03-01-2023 11:52-0400 Inhaled oxygen flow rate 1 L/min Dr. Gulshan Early Work Phone: [facility] 03-01-2023 09:24-0400 Body height 172.[address] Gulshan Early Work Phone: [facility] - [place] 03-01-2023 09:24-0400 Body mass index (BMI) [Ratio] 36.5 kg/m2 Dr. Gulshan Early Work Phone: [facility] 03-01-2023 09:24-0400 Body weight 108.[address] Gulshan Early Work Phone: [facility] [place] 02-13-2023 11:11-0400 Body height 172.[address] Gulshan Early Work Phone: [facility] [place] 02-13-2023 11:11-0400 Body mass index (BMI) [Ratio] 38.1 kg/m2 Dr. Gulshan Early Work Phone: 9(322)018-778254 [place] [address] 02-13-2023 11:11-0400 Body temperature 98.6 [degF] Dr. Gulshan Early Work Phone: 7(547)635-963392 [place] [address] 02-13-2023 11:11-0400 Body weight 113.[address] Gulshan Early Work Phone: 2(793)418-130854 [place] [address] 02-13-2023 11:11-0400 Diastolic blood pressure 74 mm[Hg] Dr. Gulshan Early Work Phone: 0(954)871-323818 [address] 02-13-2023 11:11-0400 Heart rate 65 /min Dr. Gulshan Early Work Phone: 3(245)510-764092 [place] [address] 02-13-2023 11:11-0400 Respiratory rate 18 /min Dr. Gulshan Early Work Phone: 8(100)139-363692 [place] [address] 02-13-2023 11:11-0400 SaO2% (BldA) [Mass fraction] 93 % Dr. Gulshan Early Work Phone: [facility] [place] 02-13-2023 11:11-0400 Systolic blood pressure 116 mm[Hg] Dr. Gulshan Early Work Phone: 4(088)965-290654 [place] [address] 07-13-2022 10:53-0400 Body height 172.[address] Gulshan Early Work Phone: 4(308)[phone] [place] [address] 07-13-2022 10:53-0400 Body mass index (BMI) [Ratio] 36.8 kg/m2 Dr. Gulshan Early Work Phone: [facility] [place] 07-13-2022 10:53-0400 Body weight 109.[address] Gulshan Early Work Phone: [facility] [place] 04-06-2022 08:25-0400 Body height 172.[address] Gulshan Early Work Phone: [facility] [place] Work Phone: 04-06-2022 08:25-0400 Body mass index (BMI) [Ratio] 36.5 kg/m2 Dr. Gulshan Early Work Phone: [facility] [place] Work Phone: 04-06-2022 08:25-0400 Body weight 108.[address] Gulshan Early Work Phone: [facility] Work Phone: 08-09-2021 13:15-0500 Body height 172.[address] Gulshan Early Work Phone: [facility] Work Phone: 08-09-2021 13:15-0500 Body mass index (BMI) [Ratio] 38.2 kg/m2 Dr. Gulshan Early Work Phone: [facility] Work Phone: 08-09-2021 13:15-0500 Body weight 114.[address] Gulshan Early Work Phone: [facility] [place] Work Phone: 06-19-2020 12:00-0400 Pulse (Heart Rate) 89 /min [facility], [place] 06-19-2020 11:50-0400 Body Temperature 96.91 [degF] [facility] 06-19-2020 11:50-0400 BP Diastolic 68 mm[Hg] [facility] , [place] 06-19-2020 11:50-0400 BP Systolic 112 mm[Hg] [facility] , [place] 06-19-2020 11:50-0400 Pulse Oximetry 90 % [facility] [place] , [place] 06-19-2020 11:50-0400 Respiratory Rate 18 /min Maria Del Rosario [facility], [place] 06-17-2020 16:53-0400 BMI (Body Mass Index) 45.61 kg/m2 Maria Del Rosario Seg[facility], [place] 06-17-2020 16:53-0400 Body weight 136.08 kg Maria Del Rosario [facility] , [place] 06-17-2020 16:53-0400 Height 172.7 cm Maria Del Rosario [facility] , [place] 06-17-2020 15:20-0400 BMI (Body Mass Index) 38.06 kg/m2 Terrell [facility], [place] 06-17-2020 15:20-0400 Body Temperature 96.4 [degF] Terrell [facility], [place] 06-17-2020 15:20-0400 Body weight 115.21 kg Terrell [facility] , [place] 06-17-2020 15:20-0400 BP Diastolic 89 mm[Hg] [facility] , [place] 06-17-2020 15:20-0400 BP Systolic 121 mm[Hg] [facility] , [place] 06-17-2020 15:20-0400 Height 174 cm Terrell [facility] , [place] 06-17-2020 15:20-0400 Pulse (Heart Rate) 147 /min [place], [place] 06-17-2020 15:20-0400 Pulse Oximetry 92 % [facility] , [place] 06-17-2020 15:20-0400 Respiratory Rate 20 /min Terrell [facility], [place] 11-28-2016 10:29-0400 BMI (Body Mass Index) 40.94 kg/m2 [facility] Work Phone: 11-28-2016 10:29-0400 Body Temperature 98.3 [degF] Zack Deleon [facility] Work Phone: 11-28-2016 10:29-0400 BP Diastolic 91 mm[Hg] Zack [facility] Work Phone: 11-28-2016 10:29-0400 BP Systolic 141 mm[Hg] Zack [facility] Work Phone: 11-28-2016 10:29-0400 Height 172.72 cm [facility] Work Phone: 11-28-2016 10:29-0400 Pulse (Heart Rate) 97 /min [facility] Work Phone: 11-28-2016 10:29-0400 Pulse Oximetry 97 % [facility] Work Phone: 11-28-2016 10:29-0400 Respiratory Rate 18 /min [facility] Work Phone: 11-28-2016 10:29-0400 Weight 122.15 kg [facility] Work Phone: 06-16-2014 13:19-0400 BSA (Body Surface Area) 2.35 m2 [facility] Work Phone: Encounters Encounter Date Encounter Type Care Provider Facility Start: 08-07-2025 ambulatory Gulshan [facility] Facility:[facility] Start: 07-08-2025 ambulatory Gulshan [facility] Facility:[facility] Start: 05-20-2025 End: 05-20-[address] Gulshan Early MD Work Phone: -Laboratory Phy Office 3rd Flr Start: 05-20-2025 End: 05-20-[address] Gulshan Early MD -Laboratory Phy Office 3rd Flr Start: 05-20-2025 End: 05-20-2025 ambulatory Gulshan [facility] Facility:[facility] [place] Start: 04-25-2025 End: 04-25-[address] Gulshan Early MD Work Phone: -Laboratory Specimen Start: 04-25-2025 End: 04-25-[address] Gulshan Early MD -Laboratory Specimen Work Phone: Start: 04-25-2025 End: 04-25-2025 ambulatory [facility] Facility:[facility] Start: 04-01-2025 End: 04-01-[address] Gulshan Early MD Work Phone: -Laboratory Phy Office 3rd Flr Start: 04-01-2025 End: 04-01-[address] Gulshan Early MD -Laboratory Phy Office 3rd Flr Start: 04-01-2025 End: 04-01-2025 ambulatory [facility] Facility:[facility] Start: 03-18-2025 End: 03-18-[address] Gulshan Early MD Work Phone: -Laboratory Phy Office 3rd Flr Start: 03-18-2025 End: 03-18-[address] Gulshan Early MD -Laboratory Phy Office 3rd Flr Start: 03-18-2025 End: 03-18-2025 ambulatory [facility] Facility:[facility] Start: 02-05-2025 End: 02-05-[address] Gulshan Early MD -Laboratory Specimen Work Phone: Start: 02-05-2025 End: 02-05-[address] Gulshan Early MD Work Phone: [facility] [place] Work Phone: Start: 01-09-2025 ambulatory Gulshan Satnam [facility] Facility:[facility] Start: 01-02-2025 End: 01-02-[address] Gulshan Early MD -Laboratory Work Phone: Start: 01-02-2025 End: 01-02-2025 ambulatory [facility] Facility:[facility] Start: 12-30-2024 End: 12-30-[address] Gulshan Early MD -Laboratory Work Phone: Start: 12-30-2024 End: 12-30-2024 ambulatory [facility] Facility:[facility] Start: 11-21-2024 End: 11-21-[address] Gulshan Early MD Work Phone: [facility] Work Phone: Start: 11-21-2024 End: 11-21-[address] Gulshan Early MD -Laboratory, Phy Office 3rd Azr Start: 11-21-2024 End: 11-21-2024 ambulatory [facility] Facility:[facility] Start: 11-18-2024 ambulatory [facility] Facility:[facility] Start: 11-18-2024 Non-patient / Non-visit Dr. Victorino ortiz MD -[facility] Start: 11-18-2024 End: 12-09-[address] Victorino Solano MD -Wound Healing [facility] er Work Phone: Start: 11-18-[address] Victorino dorantes MD -Wound Healing Center Work Phone: Start: 11-18-2024 End: 12-09-[address] Gulshan Early MD Work Phone: [facility] [place] Work Phone: Start: 10-29-2024 ambulatory Victorino Solano [facility] Start: 10-29-2024 Non-patient / Non-visit Dr. Victorino ortiz MD -[facility] Start: 10-28-2024 End: 11-08-[address] Victorino Solano MD -[facility] Healing Cent er Work Phone: Start: 10-28-2024 End: 11-08-2024 [facility] Start: 10-08-2024 ambulatory Victorino Solano [facility] Start: 10-08-2024 Non-patient / Non-visit Dr. Victorino ortiz MD -[facility] Start: 10-08-2024 End: 10-08-[address] Gulshan Early MD -Outpatient Breast Imaging Work Phone: Start: 10-07-2024 End: 10-11-2024 ambulatory [facility] Facility:[facility] Start: 10-07-2024 End: 10-11-[address] Victorino Solano MD -[facility] Cent er Work Phone: Start: 10-04-2024 End: 10-04-[address] Gulshan Early MD -Laboratory, Phy Office 3rd Azr Start: 10-04-2024 End: 10-04-2024 ambulatory [facility] Facility:[facility] Start: 09-24-2024 [facility]-patient / [facility] Start: 09-09-2024 Non-patient / Non-visit Simranjorge Diaz NP-C -[facility] Start: 09-09-2024 End: 09-10-2024 ambulatory [facility] Facility:[facility] Start: 09-09-2024 End: 09-10-[address] Victorino Solano MD -Wound Healing [facility] er Work Phone: Start: 09-02-2024 ambulatory Simran Lyudmila StoverEmily FIELD CLERK Fa cility:[facility] Start: 09-02-2024 Non-patient / Non-visit Simran E Emily FIELD CLERK-C -[facility] Start: 08-28-2024 End: 08-28-[address] Gulshan Early MD -Laboratory, Phy Office 3rd Flr Start: 08-28-2024 ambulatory Simran Lyudmila Diaz FIELD CLERK Fa cility:[facility] Start: 08-28-2024 Non-patient / Non-visit Simran E Emily FIELD CLERK-C -[facility] Start: 08-28-2024 End: 08-28-2024 ambulatory [facility] Facility:[facility] Start: 08-27-2024 Non-patient / [facility] Start: 08-26-2024 ambulatory Victorino Solano [facility] Start: 08-26-2024 Non-patient / Non-[facility] Start: 08-23-2024 Non-patient / Non-[facility] Start: 08-22-2024 Non-patient / Non-visit Dr. Victorino ortiz MD [facility] Start: 08-21-2024 End: 08-23-2024 ambulatory [facility] Facility:[facility] Start: 08-21-2024 End: 08-23-2024 Evaluation and management of inpatient Dr. Victorino Solano MD -Medical Surgical 3 Work Phone: Start: 08-21-2024 ambulatory [facility] Start: 08-21-2024 Non-patient / Non-visit Dr. Victorino ortiz MD [facility] Start: 08-20-2024 Non-patient / Non-visit Dr. Eros Batista MD -[facility] Start: 08-19-2024 ambulatory Simranjorge Diaz FIELD CLERK Fa cility:[facility] Start: 08-19-2024 Non-patient / Non-visit Simranjorge Diaz -[facility] Start: 08-15-2024 ambulatory [facility] Start: 08-15-2024 Non-patient / Non-visit Dr. Ruperto Sol MD [facility] Work Phone: Start: 08-13-2024 ambulatory Simran Lyudmila Diaz FIELD CLERK Fa cility:[facility] Start: 08-13-2024 Non-patient / Non-visit Simranjorge Diaz -[facility] Start: 08-02-2024 End: 08-10-2024 ambulatory [facility] Facility:[facility] Start: 08-01-2024 ambulatory [facility] Start: 07-29-2024 ambulatory Simran Lyudmila CardenasEmily FIELD CLERK Fa cility:[facility] Start: 07-25-2024 ambulatory [facility] Start: 2024 ambulatory [facility] Start: 07-18-2024 ambulatory [facility] Start: 07-16-2024 ambulatory Simran E Emily FIELD CLERK Fa cility:[facility] Start: 07-15-2024 ambulatory Simran Lyudmila CardenasEmily FIELD CLERK Fa cility:[facility] Start: 07-11-2024 End: 07-11-2024 ambulatory Victorino Solano Facility:[facility] Start: 01-08-2024 End: 01-08-2024 ambulatory [facility] Work Phone: Start: 01-08-2024 End: 01-08-2024 Patient encounter procedure [facility]-Pulmonary Services/Neurology Work Phone: Start: 12-28-2023 End: 12-28-2023 ambulatory [facility] Work Phone: Start: 12-28-2023 End: 12-28-2023 Patient encounter procedure [facility]-Laboratory Work Phone: Start: 11-02-2023 End: 11-02-2023 ambulatory [facility] Work Phone: Start: 11-02-2023 End: 11-02-2023 Discharged Recurring [facility]-W[facility] Healing Center Work Phone: Start: 11-01-2023 End: 11-01-2023 Patient encounter procedure [facility]-Pulmonary Services/Neurology Work Phone: Start: 06-27-2023 End: 06-27-[address] Gulshan Early Work Phone: [facility] Work Phone: Start: 06-27-2023 End: 06-27-[address] Gulshan Early Work Phone: [facility]-Laboratory, Phy Office [address] [place] [address] Start: 05-29-2023 End: 05-29-[address] Gulshan Early Work Phone: [facility] Work Phone: Start: 04-10-2023 End: 04-10-[address] Gulshan Early Work Phone: [facility] Work Phone: Start: 03-24-2023 End: 03-24-[address] Gulshan Early Work Phone: [facility] Work Phone: Start: 03-07-2023 End: 03-20-2023 Evaluation and management of inpatient Dr. Gulshan Early Work Phone: [facility]-Transitional Care Unit Start: 03-07-2023 Non-patient / Non-visit Dr. Miko Early Work Phone: [facility] Start: 03-06-2023 Non-patient / Non-visit Dr. Miko Early Work Phone: [facility] Start: 03-05-2023 Non-patient / Non-visit Dr. Miko Early Work Phone: [facility] Start: 03-04-2023 Non-patient / Non-visit Dr. Miko Early Work Phone: [facility] Start: 03-03-2023 Non-patient / Non-visit Dr. Miko Early Work Phone: [facility] Start: 03-03-2023 Non-patient / Non-visit Dr. Miko Early Work Phone: [facility] Start: 03-02-2023 Non-patient / Non-visit Dr. Miko Early Work Phone: [facility] Start: 03-01-2023 Non-patient / Non-visit Dr. Miko Early Work Phone: [facility] Start: 03-01-2023 End: 03-07-2023 Evaluation and management of inpatient [facility] Gul[facility] Start: 02-20-2023 End: 02-20-[address] Gulshan Early Work Phone: [facility] Work Phone: Start: 02-20-2023 End: 02-20-[address] [facility] Start: 02-13-2023 End: 02-13-[address] Gulshan Early Work Phone: [facility] Start: 01-19-2023 End: 01-19-[address] Gul[facility]an [facility] Start: 11-21-2022 End: 11-21-[address] Gulshan Early Work Phone: [facility] Work Phone: Start: 11-21-2022 End: 11-21-[address] Gul[facility]an [facility] Start: 10-11-2022 End: 10-11-[address] Gulshan Early Work Phone: [facility] Work Phone: Start: 10-11-2022 End: 10-11-[address] Gul[facility]an [facility] Start: 09-09-2022 End: 09-09-[address] Gulshan Early Work Phone: [facility] Work Phone: Start: 09-09-2022 End: 09-09-[address] Gul[facility]an [facility] Start: 09-09-2022 End: 09-09-[address] Gulshan Early Work Phone: [facility] Work Phone: Start: 09-09-2022 End: 09-09-[address] Gulshan Early [facility] Start: 08-29-2022 End: 08-29-[address] Gulshan Early Work Phone: [facility] Work Phone: Start: 08-29-2022 End: 08-29-[address] Gulshan Early Work Phone: [facility]-Pre-Admission Testing Start: 08-29-2022 End: 08-29-2022 Non-patient / Non-visit Dr. Gulshan aErly Work Phone: [facility] Start: 08-26-2022 End: 08-26-[address] Gulshan Ealry Work Phone: [facility] Start: 08-19-2022 End: 08-19-[address] Gulshan Early Work Phone: [facility] Work Phone: Start: 08-19-2022 End: 08-19-[address] Gulshan Early Work Phone: [facility] Start: 07-13-2022 End: 07-13-[address] Gulshan Early Work Phone: [facility] Work Phone: Start: 07-13-2022 End: 07-13-[address] Gulshan Early Work Phone: [facility] Start: 05-04-2022 End: 05-04-[address] Gulshan Early Work Phone: [facility] Start: 04-08-2022 End: 04-08-[address] Gulshan Early Work Phone: [facility]-Cardiovascular Services Start: 04-06-2022 End: 04-06-[address] Gulshan Early Work Phone: [facility] Start: 04-05-2022 End: 04-05-2022 Emergency department patient visit ALBERTO PEREZ MD [facility] Start: 02-23-2022 End: 02-23-[address] Gulshan Early [facility] Start: 11-23-2021 End: 11-23-[address] Gulshan Early Work Phone: [facility] Flr Start: 08-25-2021 End: 08-25-[address] Gulshan Early Work Phone: [facility] Flr Start: 08-13-2021 End: 08-13-[address] Gulshan Early Work Phone: [facility] Start: 08-09-2021 End: 08-09-[address] Gulshan Early Work Phone: [facility] Start: 06-17-2020 End: 06-19-2020 Emergency department patient visit Maria Del Rosario Segura Work Phone: [facility] Comment on above: Tachycardia (Primary Dx); Closed fracture of nasal bone, initial encounter Start: 06-17-2020 End: 06-17-2020 Subsequent hospital visit by physician Terrell Sexton Work Phone: [facility] Pre-Admit Testing Comment on above: Arrived Procedures Date Procedure Procedure Detail Performing Clinician Start: 05-20-2025 SARS-CoV-2, Influenz a & RSV (PCR) Dr. Gulshan Early MD Work Phone: Start: 04-25-2025 SARS-CoV-2, Influenz a & RSV (PCR) Dr. Gulshan Early MD Work Phone: Start: 03-18-2025 SARS-CoV-2, Influenz a & RSV (PCR) Dr. Gulshan Early MD Work Phone: Start: 02-05-2025 SARS-CoV-2, Influenz a & RSV (PCR) Dr. Gulshan Early MD Work Phone: Start: 12-30-2024 Urnls dip stick/tabl et reagent auto microscopy Dr. Gulshan Early MD Work Phone: Start: 12-30-2024 SARS-CoV-2, Influenz a & RSV (PCR) Dr. Gulshan Early MD Work Phone: Start: 12-30-[address] Gulshan serra MD Work Phone: Start: 11-21-2024 SARS-CoV-2, Influenz a & RSV (PCR) Dr. Gulshan Early MD Work Phone: Start: 10-08-2024 Screening mammography D kashmir Early MD Work Phone: Start: 11-01-2023 SARS-CoV-2, Influenz a & RSV (PCR) Start: 03-02-2023 Acid fast bacilli culture Dr. Gulshan Early Work Phone: Start: 03-02-[address] Gulshan Early Work Phone: Start: 03-02-2023 Cytopathology proced ure, preparation of smear, genital source Dr. Gulshan Early Work Phone: Start: 03-02-[address] Gulshan Early Work Phone: Start: 03-02-2023 Investigation of transfusion reaction Dr. Gulshan Early Work Phone: Start: 03-02-2023 Microbial culture, routine Dr. Gulshan Early Work Phone: Start: 03-02-[address] Miko Early Work Phone: Start: 03-02-[address] Remington Early Work Phone: Start: 03-01-2023 MRI of lower extremity Dr. Gulshan Early Work Phone: Start: 03-01-2023 Bacteria identified in Blood by Culture Dr. Gulshan Early Work Phone: Start: 03-01-2023 X-ray of both feet Dr. Gulshan Early Work Phone: Start: 01-19-2023 Investigation of transfusion reaction Dr. Gulshan Early Work Phone: Start: 01-19-2023 Microbial culture, routine Dr. Gulshan Early Work Phone: Start: 08-19-2022 MRI of lower extremity Dr. Gulshan Early Work Phone: Start: 05-04-2022 Plain x-ray of wrist Dr Unique Early Work Phone: Start: 11-23-[address] Gulshan serra Work Phone: Start: 06-19-2020 Gluc bld gluc mntr d ev cleared fda spec home use Brandon Ridley Work Phone: Start: 06-19-2020 Echo tthrc r-t 2d w/wom-mode compl spec&colr d Micaela Chirinos Work Phone: Start: 06-19-2020 Gluc bld gluc [...] Phone: Start: 06-18-2020 Assay of magnesium Raman mery Ridley Work Phone: Start: 06-18-2020 Assay of troponin quantitative Brandon Ridley Work Phone: Start: 06-18-2020 Basic metabolic pane l calcium total Brandon Ridley Work Phone: Start: 06-18-2020 Hemoglobin glycosylated a1c Brandon Ridley Work Phone: Start: 06-17-2020 End: 06-17-2020 ADD ON LAB TEST [employer] Work Phone: Start: 06-17-2020 Urnls dip stick/tabl et rgnt auto w/o microscopy [employer] Work Phone: Start: 06-17-2020 Assay of free thyroxine Ochoa Francis Work Phone: Start: 06-17-2020 Assay of triiodothyr onine t3 free Ochoa Francis Work Phone: Start: 06-17-2020 Assay of magnesium Scot remington Francis Work Phone: Start: 06-17-2020 Assay of thyroid stimulating hormone tsh Ochoa Francis Work Phone: Start: 06-17-2020 Assay of troponin quantitative Ochoa Francis Work Phone: Start: 06-17-2020 Blood count complete auto&auto difrntl wbc Ochoa Francis Work Phone: Start: 06-17-2020 Comprehensive metabo lic panel Ochoa Francis Work Phone: Start: 06-17-2020 Fibrin dgradj produc ts d-dimer quantitative Ochoa Francis Work Phone: Start: 06-17-2020 Radiologic exam ches t single view Ochoa Francis Work Phone: Start: 06-17-2020 Basic metabolic pane l calcium total Nadeenstephanie Nicholson Work Phone: Start: 06-17-2020 Blood count hemoglobin Nadeen A [employer] Work Phone: Start: 06-17-2020 Ecg routine ecg [...] 09-23-2014 Amputated toe (finding) ALBERTO PEREZ MD Comment on above: L great toe partial amputation Start: 09-10-2014 End: 10-21-2014 *MISC - Miscellaneous Lab Test #1 Vidhya Art MD Bacteria identified in Blood by Culture Dr. 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 Gulshan Early Work Phone: Influenza Types A,B Direct FA (SALLY) Dr. Gulshan Early Work Phone: Influenza Types A,B Direct FA (SALLY) Dr. Gulshan Early Work Phone: Influenza Types A,B Direct FA (SALLY) Dr. Gulshan Early Work Phone: Investigation of transfusion reaction Dr. Gulshan Early Work Phone: Ligation of fallopian tube Thierno PEREZ MD Microbial culture, routine D rUnique Early Work Phone: Microbial culture, routine [facility]Unique Early Work Phone: Nasal Screen MRSA/MSSA Dr. Remington Early Work Phone: Nasal Screen MRSA/MSSA Dr. Remington Early Work Phone: Respiratory syncytia l virus antigen assay Dr. Gulshan Early Work Phone: Respiratory syncytia l virus antigen assay Dr. Gulshan Early Work Phone: Respiratory syncytia l virus antigen assay Dr. Gulshan Early Work Phone: Septoplasty/submucou s resecj w/wo cartilage grf ALBERTO PEREZ MD Plan of Treatment Date Care Activity Detail Author Start: 08-23-2024 Inhalation therapy procedure [facility] Start: 08-23-2024 Patient discharge [facility] Start: 08-22-2024 Consultation for treatment [facility] Start: 08-22-2024 Application of intermittent pneumatic compression device [facility] Start: 08-21-2024 End: 08-21-2024 [facility] Start: 08-21-2024 Following clinical pathway protocol [facility] Start: 08-21-2024 Anes integ extremities ant trunk & perineum nos ANESTH SKIN EXT/PER/ATRUNK [facility] Start: 08-21-2024 Prep site trunk/arm/leg 1st 100 sq cm/1pct WOUND PREP TRK/ARM/LEG [facility] Start: 08-21-2024 Split agrft t/a/l 1st 100 cm/&/1% bdy inft/chld SPLT AGRFT T/A/L 1ST 100SQCM [facility] Start: 08-21-2024 Provision of activity privileges [facility] Start: 08-21-2024 Assessment of risk of venous thromboembolism [facility] Start: 08-21-2024 Admission procedure [facility] Start: 08-21-2024 Application, wound VAC [facility] Start: 08-21-2024 Patient referral to dietitian [facility] Start: 04-12-2023 Blood chemistry [facility] Start: 04-05-2023 Blood chemistry [facility] Start: 03-29-2023 Blood chemistry [facility] Start: 03-22-2023 Blood chemistry [facility] Start: 03-20-2023 Development of care plan [facility] Start: 03-19-2023 [facility] Start: 03-19-2023 Patient discharge [facility] Start: 03-17-2023 Referral to service [facility] Start: 03-10-2023 [facility] Start: 03-09-2023 [facility] Start: 03-08-2023 Development of care plan [facility] Start: 03-08-2023 Developing a treatment plan [facility] Start: 03-08-2023 [facility] Start: 03-07-2023 Referral to truck driver instructor [facility] Start: 03-07-2023 [facility] Start: 03-07-2023 Patient referral to dietitian [facility] Start: 03-07-2023 Verification routine [facility] Start: 03-07-2023 Consultation for treatment [facility] Start: 03-07-2023 Wound care [facility] Start: 03-07-2023 Admission procedure [facility] Start: 03-07-2023 Measuring intake and output [facility] Start: 03-07-2023 Patient referral to dietitian [facility] Start: 03-07-2023 Referral to occupational therapist [facility] Start: 03-07-2023 Referral to service [facility] Start: 03-07-2023 Vital signs measurements [facility] Start: 03-07-2023 End: 03-07-2023 [facility] Start: 03-07-2023 Patient discharge [facility] Start: 03-07-2023 [facility] Start: 03-06-2023 Application, wound VAC [facility] Start: 03-05-2023 Referral to service [facility] Start: 03-04-2023 Referral to occupational therapist [facility] Start: 03-03-2023 Referral to service [facility] Start: 03-03-2023 Referral to vascular surgeon [facility] Start: 03-02-2023 Elevation of affected extremity [facility] Start: 03-01-2023 [facility] Start: 03-01-2023 End: 03-01-2023 [facility] Start: 03-01-2023 Ambulation without limitation [facility] Start: 03-01-2023 Assessment of risk of venous thromboembolism [facility] Start: 03-01-2023 Care regimes management [facility] Start: 03-01-2023 Consultation [facility] Start: 03-01-2023 Consultation for treatment [facility] Start: 03-01-2023 Insertion of catheter into peripheral vein [facility] Start: 03-01-2023 Providing care according to standard [facility] Start: 03-01-2023 Referral to truck driver instructor [facility] Start: 03-01-2023 Referral to service [facility] Start: 03-01-2023 Following clinical pathway protocol [facility] Start: 03-01-2023 Verification routine [facility] Start: 03-01-2023 Admission procedure [facility] Start: 03-01-2023 [facility] Start: 06-18-2020 Hospital Encounter 06/18/2020 Hospital Encounter General Surgery Terrell Sexton DO [address] [place] [address] [phone] [facility] Start: 05-12-2020 Influenza vaccination Flu vaccine (#1) [place] Start: 11-28-2016 End: 11-28-2016 Influenza virus A+B Ag [Presence] in Unspecified specimen *FLU - FLU A + B Direct AG, (Rapid) [facility] Work Phone: Start: 11-10-2016 End: 11-10-2016 *CDIF - Clostridium Diff. Toxin Stool *CDIF - Clostridium Diff. Toxin Stool [facility] Work Phone: Start: 10-27-2016 End: 10-27-2016 Jasmina subq tissue 20 sq cm/< Debridement, subcutaneous tissue first [address] sq [address] or [address] [facility] Work Phone: Start: 10-27-2016 End: 10-27-2016 X-ray exam of foot X-Ray, Foot [facility] Work Phone: Start: 05-27-2016 End: 05-27-2016 *CBC with Differential *CBC with Differential [facility] Work Phone: Start: 05-27-2016 End: 05-27-2016 C reactive protein (hsCRP) *CRP - C-Reative Protein [facility] Work Phone: Start: 05-27-2016 End: 05-27-2016 Erythrocyte sedimentation rate *Sedimentation Rate (ESR) [facility] Work Phone: Start: 04-27-2016 End: 04-27-2016 Physical Therapy General Physical Therapy [facility], [address] [place] [address], [id number] [facility] Work Phone: Start: 04-25-2016 End: 04-25-2016 X-ray exam, knee, 4 or more X-Ray, Knee [facility] Work Phone: Start: 10-15-2014 End: 10-21-2014 *BMP *BMP [facility] Work Phone: Start: 10-15-2014 End: 10-21-2014 *CBC with Differential *CBC with Differential [facility] Work Phone: Start: 10-15-2014 End: 10-21-2014 Erythrocyte sedimentation rate *Sedimentation Rate (ESR) [facility] Work Phone: Start: 09-15-2014 End: 09-15-2014 Podiatry Referral Podiatry Referral [facility] [place], [facility], [address], [place], [address] [facility] Work Phone: Start: 09-10-2014 End: 10-21-2014 *MISC - Miscellaneous Lab Test #1 *MISC - Miscellaneous Lab Test #1 [facility] Work Phone: Start: 2014 Screening for malignant neoplasm of breast Breast cancer screen [place] Start: 2014 Screening for malignant neoplasm of colon Colon cancer screen colonoscopy [place] Start: 2014 Shingles Vaccine (1 of 2) Shingles Vaccine (1 of 2) [place] Start: 2004 Diabetes screen Diabetes screen [place] Start: 1985 Screening for malignant neoplasm of cervix Cervical cancer screen [place] Start: 1982 Diabetic microalbuminuria test Diabetic microalbuminuria test [place] Start: 1979 HIV screening HIV screen [place] Start: 1974 Diabetic foot examination Diabetic foot exam [place] Start: 1974 Diabetic retinal exam Diabetic retinal exam [place], [place] Start: 1974 HbA1c (Bld) [Mass fraction] A1C test (Diabetic or Prediabetic) [place] Start: 1974 Lipid panel Lipid screen [place] Start: 1964 Hepatitis C screening Hepatitis C screen [place] Acid fast bacilli culture [facility] Anaerobic microbial culture Anaerobic Culture [facility] End: 06-18-2020 Basic metabolic 2000 panel Basic Metabolic Panel Lab Routine Tomorrow AM for 1 Occurrences starting 06/18/2020 until 06/18/2020 [place] Comment on above: Tomorrow AM for 1 Occurrences starting 1 until 06/18/2020 Basic metabolic 2000 panel Basic Metabolic Panel Lab STAT 06/18/2020 1:31 AM EDT [place] EKG 12 Lead EKG 12 Lead ECG Routine 06/17/2020 4:29 PM EDT [place] Fungal Culture Fungal Culture [facility] Fungal Smear Fungal Smear [facility] Hematocrit [Volume Fraction] of Blood [facility] Hematocrit [Volume Fraction] of Blood [facility] Hemoglobin [Mass/vol ume] in Blood [facility] Hemoglobin [Mass/vol ume] in Blood [facility] Leukocytes [#/volume ] in Blood [facility] Leukocytes [#/volume ] in Blood [facility] Mean corpuscular hemoglobin concentration determination [facility] Mean corpuscular hemoglobin concentration determination [facility] Mean corpuscular hemoglobin determination [facility] Mean corpuscular hemoglobin determination [facility] Mycobacterium sp identified in Unspecified specimen by Organism specific culture [facility] Neutrophil count [facility] Neutrophil count [facility] Neutrophil percent differential count [facility] Neutrophil percent differential count [facility] Oxygen therapy [[facility] Data Set] Initiate Oxygen Therapy Protocol Respiratory Care Routine Daily until discontinued starting 06/18/2020 [place] Comment on above: Daily until discontinued starting 2019 Patient Education [facility] Work Phone: Patient referral [facility] Work Phone: Platelets [#/volume] in Blood [facility] Platelets [#/volume] in Blood [facility] POCT glucose [facility], [place] Comment on above: 4X Daily (AC & HS) until discontinued st arting 06/18/2020 As Needed until disc ontinued starting 06/18/2020 Red blood cell count [facility] Red blood cell count [facility] Red cell distributio n width determination [facility] Red cell distributio n width determination [facility] T4 free measurement [facility] Thyroid stimulating hormone measurement [facility] Immunizations Immunization Date Immunization Notes Care Provider Fa cility 03-06-2024 Covid (Spikevax) Dr. Gulshan harding MD Work Phone: [facility] 06-27-2023 influenza, injectabl e, quadrivalent, preservative free Dr. Gulshan Early MD Work Phone: [facility] 05-14-2021 influenza, injectabl e, quadrivalent, preservative free Dr. Gulshan Early MD Work Phone: [facility] 12-25-2020 Covid (Pfizer) Dr. Gulshan Early Work Phone: [facility] 12-04-2020 Covid (Pfizer) Dr. Gulshan Early Work Phone: [facility] 06-01-2020 influenza, injectabl e, quadrivalent, preservative free Dr. Gulshan Early MD Work Phone: [facility] 07-03-[address] Gulshan Early Work Phone: [facility] 05-30-2019 influenza, injectabl e, quadrivalent, preservative free Dr. Gulshan Early MD Work Phone: [facility] 06-08-2017 influenza, injectabl e, quadrivalent, preservative free Dr. Gulshan Early MD Work Phone: [facility] 06-11-[address] Gulshan Early Work Phone: [facility] 04-28-2015 influenza, injectabl e, quadrivalent, preservative free Dr. Gulshan Early Work Phone: [facility] 04-28-2015 influenza, seasonal, injectable Dr. Gulshan Early Work Phone: [facility] 06-09-[address] Gulshan Early Work Phone: [facility] 08-02-2013 tetanus and diphther ia toxoids, adsorbed, preservative free, for adult use (2 Lf of tetanus toxoid and 2 Lf of diphtheria toxoid) Dr. Gulshan Early Work Phone: [facility] 06-19-2013 pneumococcal conjuga te vaccine, [address] Gulshan Early Work Phone: [facility] 06-11-[address] Gulshan Early Work Phone: [facility] 06-11-[address] Gulshan Early Work Phone: [facility] Work Phone: 06-11-2013 pneumococcal vaccine , unspecified formulation Dr. Gulshan Early Work Phone: [facility] Payers Date Payer Category Payer Medicare [id number] 2024 Medicare [id number] 2024 Self-pay [id number] 2017 Medicaid [id number] 2017 Medicare [id number] Private Health Insurance 101 [id number] Unknown [id number] 2.16.8 40.1.299849.3.579.2.462 Unknown [id number] 2.16.8 40.1.354507.3.579.2.462 Unknown [id number] 2.16.8 40.1.262220.3.579.2.462 Unknown [id number] 2.16.8 40.1.363533.3.579.2.462 Unknown [id number] 2.16.8 40.1.835383.3.579.2.462 Unknown [id number] 2.16.8 40.1.788483.3.579.2.462 Unknown [id number] 2.16.8 40.1.634346.3.579.2.462 Unknown [id number] 2.16.8 40.1.529992.3.579.2.462 Unknown [id number] 2.16.8 40.1.233845.3.579.2.462 Unknown [id number] 2.16.8 40.1.149988.3.579.2.462 Unknown [id number] 2.16.8 40.1.171396.3.579.2.462 Unknown [id number] 2.16.8 40.1.146701.3.579.2.462 Unknown [id number] 2.16.8 40.1.640039.3.579.2.462 Unknown [id number] 2.16.8 40.1.222895.3.579.2.462 Unknown [id number] 2.16.8 40.1.085354.3.579.2.462 Unknown [id number] 2.16.8 40.1.436679.3.579.2.462 Unknown [id number] 2.16.8 40.1.803836.3.579.2.462 Unknown [id number] 2.16.8 40.1.932521.3.579.2.462 Unknown [id number] 2.16.8 40.1.539231.3.579.2.462 Unknown [id number] 2.16.8 40.1.277180.3.579.2.462 Unknown [id number] 2.16.8 40.1.728053.3.579.2.462 Unknown [id number] 2.16.8 40.1.737872.3.579.2.462 Unknown [id number] 2.16.8 40.1.762113.3.579.2.462 Unknown [id number] 2.16.8 40.1.074013.3.579.2.462 Unknown [id number] 2.16.8 40.1.407384.3.579.2.462 Unknown [id number] 2.16.8 40.1.225216.3.579.2.462 Unknown [id number] 2.16.8 40.1.350082.3.579.2.462 Unknown [id number] 2.16.8 40.1.298097.3.579.2.462 Unknown [id number] 2.16.8 40.1.632963.3.579.2.462 Unknown [id number] 2.16.8 40.1.814209.3.579.2.462 Unknown [id number] 2.16.8 40.1.403749.3.579.2.462 Unknown [id number] 2.16.8 40.1.349263.3.579.2.462 Unknown [id number] 2.16.8 40.1.216445.3.579.2.462 Unknown [id number] 2.16.8 40.1.337832.3.579.2.462 Unknown [id number] 2.16.8 40.1.518292.3.579.2.462 Unknown [id number] 2.16.8 40.1.757576.3.579.2.462 Unknown [id number] 2.16.8 40.1.653506.3.579.2.462 Unknown [id number] 2.16.8 40.1.819486.3.579.2.462 Unknown [id number] 2.16.8 40.1.835093.3.579.2.462 Unknown [id number] 2.16.8 40.1.133795.3.579.2.462 Unknown [id number] 2.16.8 40.1.850854.3.579.2.462 Social History Date Type Detail Facility Start: 07-10-2019 End: 06-17-2020 Tobacco smoking status NHIS Former smoker [facility] End: 09-11-1996 History of tobacco use Current smoker [place] End: 09-11-1996 History of tobacco use Cigarette Smoker [place] Start: 06-17-2020 Cigarettes smoked current (pack per day) - Reported [place] Start: 06-17-2020 Tobacco use and exposure Never used [place] Start: 06-17-2020 Alcohol intake Current drinke r of alcohol (finding) [place] Start: 06-17-2020 Alcohol Comment very seldom [place], [place] Sex Assigned At Not on file [place] Exposure to SARS-CoV-2 (event) Not sure [place] Start: 08-25-2021 End: 10-19-2023 Tobacco smoking status NHIS Unknown if ever smoked [facility] Start: 01-19-2021 Rare [facility] Start: 01-19-2021 None [facility] Start: 05-05-2017 Spouse/ Signif icant Other;With Family [facility] Start: 01-19-2021 Non-smoker [facility] Start: 1965 Sex Assigned At Female [facility] Sex Assigned At Sex [facility] Start: 08-22-2024 Tobacco smoking status NHIS Smokes tobacco daily (finding) [facility] Start: 12-02-2024 End: 12-09-2024 Sex Female (finding) [facility] Sex Female [facility] NEGATED: Highlighted row [facility] NEGATED: Highlighted row Not [facility] Medical Equipment Procedure Code Equipment Code Equipment Origin al Text Equipment Identifier Dates Repair, tendon, Achilles Bioabsorbable orthopaedic bone screw [id number] FDA Start: 01-26-2024 Repair, tendon, Achilles Tendon/ligament bone anchor, non-bioabsorbable [id number] FDA Start: 01-26-2024 Debridement, wound AXIOFILL,500MG FDA St art: 02-22-2024 Debridement, wound AXIOFILL,500MG FDA St art: 02-22-2024 Debridement, wound AXIOFILL,500MG FDA St art: 02-22-2024 Debridement, wound AXIOFILL,500MG FDA St art: 02-22-2024 Debridement, wound AXIOFILL,500MG FDA St art: 02-22-2024 Debridement, wound AXIOFILL,500MG FDA St art: 02-22-2024 Debridement, wound AXIOFILL,500MG FDA St art: 02-22-2024 Debridement of wound with application of vacuum-assisted closure device [employer] FDA Start: 05-22-2024 Debridement of wound with application of vacuum-assisted closure device INTE[employer]RA [employer]RI[employer] WOUND DRESSING FDA Start: 05-22-2024 Debridement of wound with application of vacuum-assisted closure device INTE[employer]RA [employer]RIX WOUND DRESSING FDA Start: 05-22-2024 Debridement of wound with application of vacuum-assisted closure device INTE[employer]RA MATRIX WOUND DRESSING FDA Start: 05-22-2024 Debridement of wound with application of vacuum-assisted closure device INTE[employer]RA [employer]RIX WOUND DRESSING FDA Start: 05-22-2024 Debridement of wound with application of vacuum-assisted closure device INTE[employer]RA [employer]RIX WOUND DRESSING FDA Start: 05-22-2024 Debridement of wound with application of vacuum-assisted closure device INTE[employer]RA MATRIX WOUND DRESSING FDA Start: 05-22-2024 ASYMMETRIC PATELLA FDA Start: 11-12-2019 CEMENT,HV SIMPLEX FDA Start: 11-12-2019 CRUCIATE RETAINI NG FEMORAL FDA Start: 11-12-2019 TIBIAL BEARING I NSERT CS FDA Start: 11-12-2019 TIBIAL COMPONENT FDA Start: 11-12-2019 ASYMMETRIC PATELLA FDA Start: 11-12-2019 CEMENT,HV SIMPLEX FDA Start: 11-12-2019 CRUCIATE RETAINI NG FEMORAL FDA Start: 11-12-2019 TIBIAL BEARING I NSERT CS FDA Start: 11-12-2019 TIBIAL COMPONENT FDA Start: 11-12-2019 ASYMMETRIC PATELLA FDA Start: 11-12-2019 CEMENT,HV SIMPLEX FDA Start: 11-12-2019 CRUCIATE RETAINI NG FEMORAL FDA Start: 11-12-2019 TIBIAL BEARING I NSERT CS FDA Start: 11-12-2019 TIBIAL COMPONENT FDA Start: 11-12-2019 ASYMMETRIC PATELLA FDA Start: 11-12-2019 CEMENT,HV SIMPLEX FDA Start: 11-12-2019 CRUCIATE RETAINI NG FEMORAL FDA Start: 11-12-2019 TIBIAL BEARING I NSERT CS FDA Start: 11-12-2019 TIBIAL COMPONENT FDA Start: 11-12-2019 ASYMMETRIC PATELLA FDA Start: 11-12-2019 CEMENT,HV SIMPLEX FDA Start: 11-12-2019 CRUCIATE RETAINI NG FEMORAL FDA Start: 11-12-2019 TIBIAL BEARING I NSERT CS FDA Start: 11-12-2019 TIBIAL COMPONENT FDA Start: 11-12-2019 ASYMMETRIC PATELLA FDA Start: 11-12-2019 CEMENT,HV SIMPLEX FDA Start: 11-12-2019 CRUCIATE RETAINI NG FEMORAL FDA Start: 11-12-2019 TIBIAL BEARING I NSERT CS FDA Start: 11-12-2019 TIBIAL COMPONENT FDA Start: 11-12-2019 ASYMMETRIC PATELLA FDA Start: 11-12-2019 CEMENT,HV SIMPLEX FDA Start: 11-12-2019 CRUCIATE RETAINI NG FEMORAL FDA Start: 11-12-2019 TIBIAL BEARING I NSERT CS FDA Start: 11-12-2019 TIBIAL COMPONENT FDA Start: 11-12-2019 ASYMMETRIC PATELLA FDA Start: 11-12-2019 CEMENT,HV SIMPLEX FDA Start: 11-12-2019 CRUCIATE RETAINI NG FEMORAL FDA Start: 11-12-2019 TIBIAL BEARING I NSERT CS FDA Start: 11-12-2019 TIBIAL COMPONENT FDA Start: 11-12-2019 ASYMMETRIC PATELLA FDA Start: 11-12-2019 CEMENT,HV SIMPLEX FDA Start: 11-12-2019 CRUCIATE RETAINI NG FEMORAL FDA Start: 11-12-2019 TIBIAL BEARING I NSERT CS FDA Start: 11-12-2019 TIBIAL COMPONENT FDA Start: 11-12-2019 ASYMMETRIC PATELLA FDA Start: 11-12-2019 CEMENT,HV SIMPLEX FDA Start: 11-12-2019 CRUCIATE RETAINI NG FEMORAL FDA Start: 11-12-2019 TIBIAL BEARING I NSERT CS FDA Start: 11-12-2019 TIBIAL COMPONENT FDA Start: 11-12-2019 Pen Needle, Diab etic (Bd Ultra-Fine [place] Pen Needle) 32 gauge x 5/32" needle Start: 02-13-2023 ASYMMETRIC PATELLA FDA Start: 11-12-2019 CEMENT,HV SIMPLEX FDA Start: 11-12-2019 CRUCIATE RETAINI NG FEMORAL FDA Start: 11-12-2019 TIBIAL BEARING I NSERT CS FDA Start: 11-12-2019 TIBIAL COMPONENT FDA Start: 11-12-2019 Pen Needle, Diab etic (Bd Ultra-Fine [place] Pen Needle) 32 gauge x 5/32" needle Start: 02-13-2023 ASYMMETRIC PATELLA FDA Start: 11-12-2019 CEMENT,HV SIMPLEX FDA Start: 11-12-2019 CRUCIATE RETAINI NG FEMORAL FDA Start: 11-12-2019 TIBIAL BEARING I NSERT CS FDA Start: 11-12-2019 TIBIAL COMPONENT FDA Start: 11-12-2019 Pen Needle, Diab etic (Bd Ultra-Fine [place] Pen Needle) 32 gauge x 5/32" needle Start: 02-13-2023 ASYMMETRIC PATELLA FDA Start: 11-12-2019 CEMENT,HV SIMPLEX FDA Start: 11-12-2019 CRUCIATE RETAINI NG FEMORAL FDA Start: 11-12-2019 TIBIAL BEARING I NSERT CS FDA Start: 11-12-2019 TIBIAL COMPONENT FDA Start: 11-12-2019 Pen Needle, Diab etic (Bd Ultra-Fine [place] Pen Needle) 32 gauge x 5/32" needle Start: 02-13-2023 ASYMMETRIC PATELLA FDA Start: 11-12-2019 CEMENT,HV SIMPLEX FDA Start: 11-12-2019 CRUCIATE RETAINI NG FEMORAL FDA Start: 11-12-2019 TIBIAL BEARING I NSERT CS FDA Start: 11-12-2019 TIBIAL COMPONENT FDA Start: 11-12-2019 Blood Sugar Diagnostic (True Metrix Glucose Test Strip) strip Start: 03-24-2023 Pen Needle, Diab etic (Bd Ultra-Fine [place] Pen Needle) 32 gauge x 5/32" needle Start: 02-13-2023 ASYMMETRIC PATELLA FDA Start: 11-12-2019 CEMENT,HV SIMPLEX FDA Start: 11-12-2019 CRUCIATE RETAINI NG FEMORAL FDA Start: 11-12-2019 TIBIAL BEARING I NSERT CS FDA Start: 11-12-2019 TIBIAL COMPONENT FDA Start: 11-12-2019 Blood Sugar Diagnostic (True Metrix Glucose Test Strip) strip Start: 03-24-2023 Pen Needle, Diab etic (Bd Ultra-Fine [place] Pen Needle) 32 gauge x 5/32" needle Start: 02-13-2023 ASYMMETRIC PATELLA FDA Start: 11-12-2019 CEMENT,HV SIMPLEX FDA Start: 11-12-2019 CRUCIATE RETAINI NG FEMORAL FDA Start: 11-12-2019 TIBIAL BEARING I NSERT CS FDA Start: 11-12-2019 TIBIAL COMPONENT FDA Start: 11-12-2019 Blood Sugar Diagnostic (True Metrix Glucose Test Strip) strip Start: 03-24-2023 Pen Needle, Diab etic (Bd Ultra-Fine [place] Pen Needle) 32 gauge x 5/32" needle Start: 02-13-2023 ASYMMETRIC PATELLA FDA Start: 11-12-2019 CEMENT,HV SIMPLEX FDA Start: 11-12-2019 CRUCIATE RETAINI NG FEMORAL FDA Start: 11-12-2019 TIBIAL BEARING I NSERT CS FDA Start: 11-12-2019 TIBIAL COMPONENT FDA Start: 11-12-2019 Blood Sugar Diagnostic (True Metrix Glucose Test Strip) strip Start: 03-24-2023 Pen Needle, Diab etic (Bd Ultra-Fine [place] Pen Needle) 32 gauge x 5/32" needle Start: 02-13-2023 ASYMMETRIC PATELLA FDA Start: 11-12-2019 CEMENT,HV SIMPLEX FDA Start: 11-12-2019 CRUCIATE RETAINI NG FEMORAL FDA Start: 11-12-2019 TIBIAL BEARING I NSERT CS FDA Start: 11-12-2019 TIBIAL COMPONENT FDA Start: 11-12-2019 Blood Sugar Diagnostic (True Metrix Glucose Test Strip) strip Start: 03-24-2023 Pen Needle, Diab etic (Bd Ultra-Fine [place] Pen Needle) 32 gauge x 5/32" needle Start: 02-13-2023 ASYMMETRIC PATELLA FDA Start: 11-12-2019 CEMENT,HV SIMPLEX FDA Start: 11-12-2019 CRUCIATE RETAINI NG FEMORAL FDA Start: 11-12-2019 TIBIAL BEARING I NSERT CS FDA Start: 11-12-2019 TIBIAL COMPONENT FDA Start: 11-12-2019 Blood Sugar Diagnostic (True Metrix Glucose Test Strip) strip Start: 03-24-2023 Pen Needle, Diab etic (Bd Ultra-Fine [place] Pen Needle) 32 gauge x 5/32" needle Start: 02-13-2023 ASYMMETRIC PATELLA FDA Start: 11-12-2019 CEMENT,HV SIMPLEX FDA Start: 11-12-2019 CRUCIATE RETAINI NG FEMORAL FDA Start: 11-12-2019 TIBIAL BEARING I NSERT CS FDA Start: 11-12-2019 TIBIAL COMPONENT FDA Start: 11-12-2019 Blood Sugar Diagnostic (True Metrix Glucose Test Strip) strip Start: 03-24-2023 Pen Needle, Diab etic (Bd Ultra-Fine [place] Pen Needle) 32 gauge x 5/32" needle Start: 02-13-2023 ASYMMETRIC PATELLA FDA Start: 11-12-2019 CEMENT,HV SIMPLEX FDA Start: 11-12-2019 CRUCIATE RETAINI NG FEMORAL FDA Start: 11-12-2019 TIBIAL BEARING I NSERT CS FDA Start: 11-12-2019 TIBIAL COMPONENT FDA Start: 11-12-2019 Blood Sugar Diagnostic (True Metrix Glucose Test Strip) strip Start: 03-24-2023 Pen Needle, Diab etic (Bd Ultra-Fine [place] Pen Needle) 32 gauge x 5/32" needle Start: 02-13-2023 ASYMMETRIC PATELLA FDA Start: 11-12-2019 CEMENT,HV SIMPLEX FDA Start: 11-12-2019 CRUCIATE RETAINI NG FEMORAL FDA Start: 11-12-2019 TIBIAL BEARING I NSERT CS FDA Start: 11-12-2019 TIBIAL COMPONENT FDA Start: 11-12-2019 Blood Sugar Diagnostic (True Metrix Glucose Test Strip) strip Start: 03-24-2023 Pen Needle, Diab etic (Bd Ultra-Fine [place] Pen Needle) 32 gauge x 5/32" needle Start: 02-13-2023 ASYMMETRIC PATELLA FDA Start: 11-12-2019 CEMENT,HV SIMPLEX FDA Start: 11-12-2019 CRUCIATE RETAINI NG FEMORAL FDA Start: 11-12-2019 TIBIAL BEARING I NSERT CS FDA Start: 11-12-2019 TIBIAL COMPONENT FDA Start: 11-12-2019 Blood Sugar Diagnostic (True Metrix Glucose Test Strip) strip Start: 03-24-2023 Pen Needle, Diab etic (Bd Ultra-Fine [place] Pen Needle) 32 gauge x 5/32" needle Start: 02-13-2023 ASYMMETRIC PATELLA FDA Start: 11-12-2019 CEMENT,HV SIMPLEX FDA Start: 11-12-2019 CRUCIATE RETAINI NG FEMORAL FDA Start: 11-12-2019 TIBIAL BEARING I NSERT CS FDA Start: 11-12-2019 TIBIAL COMPONENT FDA Start: 11-12-2019 Blood Sugar Diagnostic (True Metrix Glucose Test Strip) strip Start: 03-24-2023 Pen Needle, Diab etic (Bd Ultra-Fine [place] Pen Needle) 32 gauge x 5/32" needle Start: 02-13-2023 Goals Date Patient Goal Desired Activity /State Functional Status Date Assessment Result Facility 08-23-2024 Functional status Ambulates;Bedrest [facility] Work Phone: 03-20-2023 Functional status Chair [facility] Work Phone: 03-18-2023 Functional status Wheelchair [facility] Work Phone: 03-07-2023 Functional status Ambulates [facility] Work Phone: 04-05-2022 Functional Status Independent [facility] Mental Status Date Assessment Result Facility 08-23-2024 Cognitive function Voice/Name [facility] Work Phone: 03-20-2023 Cognitive function Voice/Name [facility] Work Phone: 03-19-2023 Cognitive function Appropriate;Cooperativ e [facility] Work Phone: 03-07-2023 Cognitive function Voice/Name [facility] Work Phone: 04-05-2022 Mental Status Orientation Oriented x 4 [facility] Clinical Notes 04-05-2022 to 11-18-2024 Note Date & Type Note Facility 11-18-2024 Progress note Note Date/Time November 18, 2024 4:46pm [facility] [address] [place] [address] Progress Note - Wound Care 11/18/24 1643 MR#: [id number] Acct: [id number] Name: REMI BELTRAN Rep #:[id number] : 1965 59 From: Victorino Solano MD PCP: Dr. Gulshan Early MD Status:REG R CR Location: History of Present Illness Date of Service: 11/18/24 Chief Complaint: Surgical dehiscence with exposure of the Achilles tendon left lower extremity; Allograft failure History of Wound: 59 y/o female with DM type II with peripheral polyneuropathy, peripheral vascular disease, asthma, morbid obesity, HTN, and hyperlipidemia presented to the Wound Center for continued care of surgical dehiscence of her posterior left lower extremity with exposure of the Achilles tendon. The patient underwent surgical intervention to correct calcaneal gait with plantar ulceration of the left heel on 01/26/2024. At that time of surgery she was foundto have tendo Achilles tear to the left lower extremity resulting in a calcanealgait. Tendon was debrided and a shortening of the tendo Achilles was performed in addition to FHL tendon transfer. 3 weeks later patient had fallen placing weight to the foot resulting in a tear and dehiscence of the surgical site with exposure of the Achilles tendon. She was returned to the OR for debridement on 02/22/2024 and wound VAC was applied over ulcerative area. She did have PICC line and completed 6 weeks of IV antibiotics during stay in the transitional care unit. She completed IV antibiotic 04/04/2024 PICC line was pulled and she was discharged from the transitional care unit to home. Surgery by Dr. Solano on 06/10/24 for Split-thickness skin grafting from the left lateral thigh to the left Achilles tendon ankle wound 7 x [address] Solano on 05/20/23 for Excision of left posterior ankle wound, including biofilm, subcutaneous tissue, fascia, and tendon, 7 x 3 cm and Irrigating wound VAC, vera flow, not disposable AND 05/22/24 - Excision of left posterior ankle wound, including biofilm, subcutaneous tissue, fascia, and tendon and Placement of dermal substitute (Integra) and wound VAC placed. Operative culture 05/15/24 positive for MSSA and Anaerobic cocci. Treated with Doxy, cefdinir, and Flagyl. Patient underwent multiple debridements and eventual skin grafting on 11 June 2024. She has developed compromise of her skin graft. The patient has been undergoing hyperbaric oxygen therapy as per serial documentation. She underwentrepeat surgical skin grafting of her wound on Monday, August 21, 2024. Hyperbaric oxygen therapy continues due to a compromise of her prior skin graft,and to support the healing of her most recent skin grafting procedure. Subjective Subjective Doing well. Finished HBO last month. Compliant with Hydrogel dressings and reports that she has been pressure offloading the wound. Objective Data Objective Data Vital Signs: Vital Signs Temp Pulse Resp BP O2 Del Method 97.4 F L 94 16 137/77 H Room Air 11/18/24 15:17 11/18/24 15:17 11/18/24 15:17 11/18/24 15:17 11/18/24 15:17 Oxygen Delivery Method Room Air Weight: 230 lb Body Mass Index (BMI) 34.9 Charges/Coding Procedures Integumentary 111xxx-113xx: 19181 Global Visit Physical Exam Narrative LLE: No open areas. No signs of infection. No signs of exposed tendon. Just has dry skin now. Const alert and oriented x3 HEENT external ears normal, EAC's normal and TM's normal bilaterally Resp normal respiratory effort and clear to auscultation bilaterally Cardio regular rate Rhythm: regular rhythm Heart Sounds: S1 normal and S2 normal Debridement Note Debridement Note No debridement was completed: No debridement was completed today Post-Debridement Measurements and Additional Note: Post-Debridement Measurements/Treatment - Nurse 1 - General Ulcer Assessment Start: 11/18/24 15:17 Freq: Status: Active Protocol: BUSTER Activity Type Activity Date Activity User E-sign Co-sign Detail Recorded Client Recorded Date Recorded By Document 11/18/24 15:17 [facility] [id number] 11/18/24 15:20 [facility] 11/18/24 15:17 WC - Today's Visit Information Type of service 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 ) Arrival Mode Ambulatory,Cane Transfer Assistance None Patient Identification Verified (Name & Yes ) Patient Requires Transmission-Based No Precautions Finger Stick Blood Sugar(mg/dl) (if 185 indicated): Blood Sugar Stated by Patient Height and Weight Body Mass Index (BMI) 34.9 BMI Classification Obese Vital Signs Temperature (97.8 F-99.1 F) 97.4 F L Temperature Source Temporal Pulse Rate (60-100) 94 Pulse Location Monitor Respiratory Rate (12-18) 16 Respiratory rate source Observation Oxygen Delivery Method Room Air Blood Pressure (90/60-120/80) 137/77 H Blood Pressure Mean (mm Hg) 97 Source Monitor Position Sitting Blood Pressure Location Left Arm History Since Last Visit- (Skip if this is Patient's initial visit) Have you changed medications since your No last visit? Any new allergies or adverse reactions No Had a fall/change in ADL's that may No increase risk of falls Signs or symptoms of abuse and/or No neglect since last visit Have you been in the hospital since your No last visit? Has dressing in place as prescribed Yes Has compression in place as prescribed N/A Has offloadiing in place as prescribed N/A Experienced any changes in pain level or No management Left Footwear Regular Shoe Right Footwear Regular Shoe Pain Scale: 0-10 Numeric Is Patient Pain Free? Yes - Nurse 1 - General Ulcer Measurement Start: 11/18/24 15:17 Freq: Status: Active Protocol: Activity Type Activity Date Activity User E-sign Co-sign Detail Recorded Client Recorded Date Recorded By Document 11/18/24 15:17 [facility] [id number] 11/18/24 15:20 [facility] 11/18/24 15:17 Wound Center Nurse 1 5. L post ankle/ Achilles repair post-op -Combined with other wound No -Current Size (cm) - Length 0.1 -Current Size (cm) - Width 0.1 -Current Size (cm) - Depth 0.1 -Total Square Cm 0.01 -Date of Last Picture (Recall this 11/18/24 field) -Photo Taken Yes -Epithelialization Large 67-100% -Tunneling No -Undermining/Tunneling No -Circular Undermining No -Exudate Amt None Present -Texture (Yanely-wound Skin Appearance) Assessed, Scarring -Moisture (Yanely-wound Skin Appearance) Assessed,Dry/ Scaly -Color (Yanely-wound Skin Appearance) Assessed -Temperature (Yanely-wound Skin No Abnormality Appearance) (Pt Warm) - Nurse 2 - General Ulcer CM Notes Start: 11/18/24 15:17 Freq: Status: Active Protocol: Activity Type Activity Date Activity User E-sign Co-sign Detail Recorded Client Recorded Date Recorded By Document 11/18/24 15:33 [id number] 11/18/24 15:36 11/18/24 15:33 Wound Center Nurse 2 -Correct Patient No -Correct Side, Site, Position No -Correct Procedure No -Procedure Performed No -Post Debridement (cm) - Length 0 -Post Debridement (cm) - Width 0 -Post Debridement (cm) - Depth 0 -Total Square (Post) (cm) 0 -Area of Debridement (cm) - Length 0 -Area of Debridement (cm) - Width 0 -Total Square (Area) (cm) 0 -Wound/Ulcer Outcome Healed- Epithelialized Pain Scale: 0-10 Numeric Is Patient Pain Free? Yes - Nurse 3 - General Ulcer D/C NN Start: 11/18/24 15:17 Freq: Status: Active Protocol: Activity Type Activity Date Activity User E-sign Co-sign Detail Recorded Client Recorded Date Recorded By Document 11/18/24 15:36 [id number] 11/18/24 15:37 11/18/24 15:36 Is Patient Pain Free? Yes - Visit Discharge Discharge Condition Stable Ambulatory Status Ambulatory,Cane Transportation Private Auto Medication Reconcilliation completed & Yes provided to patient/care provider Clinical Summary of Care Provided Yes Assessment/Plan Assessment/Plan (1) Wound of left ankle: CODE(S): S91.002A - Unspecified open wound, left ankle, initial encounter QUALIFIERS: Encounter type: sequela Qualified Code(s): S91.002S -Unspecified open wound, left ankle, sequela PLAN: Healed Aquafor for dry skin F/u with Dr. Godinez for foot and ankle care Discussed pressure offloading and preventing wounds. Also talked about sugar control. F/u as needed. 11/18/24 1646 <Electronically signed by Victorino Solano MD> Cosigner Signature (if applicable): CC: ~ Signed [facility] Work Phone: 1(598) 940-522903-10-2025 Progress note [facility] [address] [place] [address] Progress Note - Wound Care 11/18/24 164 MR#: [id number] Acct: [id number] Name: REMI BELTRAN Rep #:[id number] : 1965 59 From: Victorino Solano MD PCP: Dr. Gulshan Early MD Status:REG R CR Location: History of Present Illness Date of Service: 11/18/24 Chief Complaint: Surgical dehiscence with exposure of the Achilles tendon left lower extremity; Allograft failure History of Wound: 59 y/o female with DM type II with peripheral polyneuropathy, peripheral vasculardisease, asthma, morbid obesity, HTN, and hyperlipidemia presented to the Wound Center for continued care of surgical dehiscence of her posterior left lower extremity with exposure of the Achilles tendon. The patient underwent surgical intervention to correct calcaneal gait with plantar ulceration of the left heel on 01/26/2024. At that time of surgery she was foundto have tendo Achilles tear to the left lower extremity resulting in a calcanealgait. Tendon was debrided and a shortening of the tendo Achilles was performed in addition to FHL tendon transfer. 3 weeks later patient had fallen placing weight to the foot resulting in a tear and dehiscence of the surgical site with exposure of the Achilles tendon. She was returned to the OR for debridement on 02/22/2024 and wound VAC was applied over ulcerative area. She did have PICC line and completed 6 weeks of IV antibiotics during stay in the transitional care unit. She completed IV antibiotic 04/04/2024 PICC line was pulled and she was discharged from the transitional care unit to home. Surgery by Dr. Solano on 06/10/24 for Split-thickness skin grafting from the left lateral thigh to the left Achilles tendon ankle wound 7 x [address] Solano on 05/20/23 for Excision of left posterior ankle wound, including biofilm, subcutaneous tissue, fascia, and tendon, 7 x 3 cm and Irrigating wound VAC, vera flow, not disposable AND05/22/24 - Excision of left posterior ankle wound, including biofilm, subcutaneous tissue, fascia, and tendon and Placement of dermal substitute (Integra) and wound VAC placed. Operative culture 05/15/24 positive for MSSA and Anaerobic cocci. Treated with Doxy, cefdinir, and Flagyl. Patient underwent multiple debridements and eventual skin grafting on 11 June 2024. She has developed compromise of her skin graft. The patient has been undergoing hyperbaric oxygen therapy as per serial documentation. She underwentrepeat surgical skin grafting of her wound on Monday, 2023. Hyperbaric oxygen therapy continues due to a compromise of her prior skin graft,and to support the healing of her most recent skin grafting procedure. Subjective Subjective Doing well. Finished HBO last month. Compliant with Hydrogel dressings and reports that she has been pressure offloading the wound. Objective Data Objective Data Vital Signs: Vital Signs Temp Pulse Resp BP O2 Del Method 97.4 F L 94 16 137/77 H Room Air 11/18/24 15:17 11/18/24 15:17 11/18/24 15:17 11/18/24 15:17 11/18/24 15:17 Oxygen Delivery Method Room Air Weight: 230 lb Body Mass Index (BMI) 34.9 Charges/Coding Procedures Integumentary 111xxx-113xx: 39287 Global Visit Physical Exam Narrative LLE: No open areas. No signs of infection. No signs of exposed tendon. Just has dry skin now. Const alert and oriented x3 HEENT external ears normal, EAC's normal and TM's normal bilaterally Resp normal respiratory effort and clear to auscultation bilaterally Cardio regular rate Rhythm: regular rhythm Heart Sounds: S1 normal and S2 normal Debridement Note Debridement Note No debridement was completed: No debridement was completed today Post-Debridement Measurements and Additional Note: Post-Debridement Measurements/Treatment WC - Nurse 1 - General Ulcer Assessment Start: 11/18/24 15:17 Freq: Status: Active Protocol: BUSTER Activity Type Activity Date Activity User E-sign Co-sign Detail Recorded Client Recorded Date Recorded By Document 11/18/24 15:17 [facility] [id number] 11/18/24 15:20 [facility] 11/18/24 15:17 WC - Today's Visit Information Type of service 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 ) Arrival Mode Ambulatory,Cane Transfer Assistance None Patient Identification Verified (Name & Yes ) Patient Requires Transmission-Based No Precautions Finger Stick Blood Sugar(mg/dl) (if 185 indicated): Blood Sugar Stated by Patient Height and Weight Body Mass Index (BMI) 34.9 BMI Classification Obese Vital Signs Temperature (97.8 F-99.1 F) 97.4 F L Temperature Source Temporal Pulse Rate (60-100) 94 Pulse Location Monitor Respiratory Rate (12-18) 16 Respiratory rate source Observation Oxygen Delivery Method Room Air Blood Pressure (90/60-120/80) 137/77 H Blood Pressure Mean (mm Hg) 97 Source Monitor Position Sitting Blood Pressure Location Left Arm History Since Last Visit- (Skip if this is Patient's initial visit) Have you changed medications since your No last visit? Any new allergies or adverse reactions No Had a fall/change in ADL's that may No increase risk of falls Signs or symptoms of abuse and/or No neglect since last visit Have you been in the hospital since your No last visit? Has dressing in place as prescribed Yes Has compression in place as prescribed N/A Has offloadiing in place as prescribed N/A Experienced any changes in pain level or No management Left Footwear Regular Shoe Right Footwear Regular Shoe Pain Scale: 0-10 Numeric Is Patient Pain Free? Yes MILADY - Nurse 1 - General Ulcer Measurement Start: 11/18/24 15:17 Freq: Status: Active Protocol: Activity Type Activity Date Activity User E-sign Co-sign Detail Recorded Client Recorded Date Recorded By Document 11/18/24 15:17 [facility] [id number] 11/18/24 15:20 [facility] 11/18/24 15:17 Wound Center Nurse 1 5. L post ankle/ Achilles repair post-op -Combined with other wound No -Current Size (cm) - Length 0.1 -Current Size (cm) - Width 0.1 -Current Size (cm) - Depth 0.1 -Total Square Cm 0.01 -Date of Last Picture (Recall this 11/18/24 field) -Photo Taken Yes -Epithelialization Large 67-100% -Tunneling No -Undermining/Tunneling No -Circular Undermining No -Exudate Amt None Present -Texture (Yanely-wound Skin Appearance) Assessed, Scarring -Moisture (Yanely-wound Skin Appearance) Assessed,Dry/ Scaly -Color (Yanely-wound Skin Appearance) Assessed -Temperature (Yanely-wound Skin No Abnormality Appearance) (Pt Warm) - Nurse 2 - General Ulcer CM Notes Start: 11/18/24 15:17 Freq: Status: Active Protocol: Activity Type Activity Date Activity User E-sign Co-sign Detail Recorded Client Recorded Date Recorded By Document 11/18/24 15:33 [id number] 11/18/24 15:36 11/18/24 15:33 Wound Center Nurse 2 -Correct Patient No -Correct Side, Site, Position No -Correct Procedure No -Procedure Performed No -Post Debridement (cm) - Length 0 -Post Debridement (cm) - Width 0 -Post Debridement (cm) - Depth 0 -Total Square (Post) (cm) 0 -Area of Debridement (cm) - Length 0 -Area of Debridement (cm) - Width 0 -Total Square (Area) (cm) 0 -Wound/Ulcer Outcome Healed- Epithelialized Pain Scale: 0-10 Numeric Is Patient Pain Free? Yes - Nurse 3 - General Ulcer D/C NN Start: 11/18/24 15:17 Freq: Status: Active Protocol: Activity Type Activity Date Activity User E-sign Co-sign Detail Recorded Client Recorded Date Recorded By Document 11/18/24 15:36 [id number] 11/18/24 15:37 11/18/24 15:36 Is Patient Pain Free? Yes - Visit Discharge Discharge Condition Stable Ambulatory Status Ambulatory,Cane Transportation Private Auto Medication Reconcilliation completed & Yes provided to patient/care provider Clinical Summary of Care Provided Yes Assessment/Plan Assessment/Plan (1) Wound of left ankle: CODE(S): S91.002A - Unspecified open wound, left ankle, initial encounter QUALIFIERS: Encounter type: sequela Qualified Code(s): S91.002S -Unspecified open wound, left ankle, sequela PLAN: Healed Aquafor for dry skin F/u with Dr. Godinez for foot and ankle care Discussed pressure offloading and preventing wounds. Also talked about sugar control. F/u as needed. 11/18/24 1646 Cosigner Signature (if applicable): CC: ~ Signed [facility]02-17-2025 Evaluation note* Diagnosis Onset Date Resolution Status Admit Date Wound of left ankle acute Febru 2024 3:18pm Wound of left ankle acute November 18, 2024 3:16pm [facility] Work Phone: 1(846) 467-243812-11-2024 Evaluation note* Diagnosis Onset Date Resolution Status Admit Date Type 2 diabetes mellitus wit h hyperglycemia acute August 21, 2 024 9:34am Wound of left ankle acute Decem 2023 9:34am Skin graft (allograft) (autograft) failure inactive August 9:34am Type 2 diabetes mellitus wit h hyperglycemia acute September 09, 024 1:00pm Wound of left ankle acute Decem 2023 1:00pm Skin graft (allograft) (autograft) failure inactive August 1:00pm Type 2 diabetes mellitus wit h hyperglycemia acute October 07 3:30pm Wound of left ankle acute Janua 2024 3:30pm Skin graft (allograft) (autograft) failure inactive September 3:30pm Wound of left ankle acute Febru 2024 3:18pm Wound of left ankle acute November 18, 2024 3:16pm [facility] Work Phone: 1(464) 313-814002-08-2024 History and physical note Author Zack Smith [facility] October 19, 2023 1:08pm Note Date/Time October 19, 2023 1 :08pm [facility] [address] [place] [address] H&P Exam - Wound Care 10/19/23 1248 MR#: [id number] Acct: [id number] Name: REMI BELTRAN Rep #:[id number] : 1965 58 From: Zack chakraborty DPM PCP: Dr. Gulshan Early MD Status:REG R CR Location: History of Present Illness Date of Service: 10/19/23 Chief Complaint: Left plantar heel ulceration History of Wound: 58 y/o woman with diabetes, neuropathy, peripheral vascular disease asthma, morbid obesity, HTN and hyperlipidemia. She presents to the wound care center for continued care of plantar heel ulceration of the left foot. She has been following with Dr. Navarro in office over the last several weeks with minimal improvement noted to left plantar heel ulceration and has been applying Neosporin and dry dressings to the site. Patient denies stepping on any objects that may have created a puncture wound however does have significant diabetic peripheral polyneuropathy with absent sensation to the foot. She is continue to change dressings daily. States ulceration has been present for a few weeks. She does have history of multiple ulcerations and multiple amputations of both feet. She is ambulating in surgical shoe with small cut out and for the heel. She denies N/V/F/chills. She denies further complaints. 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 History of stress test Hypergammaglobulinemia Hyperlipemia Hypertension Hypothyroidism Iron deficiency Leg cramping Morbid obesity with BMI of 40.0-44.9, adult Multinodular thyroid Non-smoker Normal echocardiogram Osteomyelitis of toe Other specified peripheral vascular diseases PAD (peripheral artery disease) Shortness of breath Skin ulcer of right foot including toes with fat layer exposed Venous stasis dermatitis of both lower extremities Wears glasses Home Medications omeprazole 40 mg capsule,delayed release 40 mg PO DAILY ACID REFLUX 10/18/18 [History Last Taken 02/28/23] paroxetine HCl 40 mg tablet 40 mg PO DAILY DEPRESSION 10/29/19 [History Last Taken 02/28/23] pregabalin 150 mg capsule 150 mg PO TID NERVE PAIN 10/29/19 [History Last Taken 02/28/23] aspirin 81 mg tablet,delayed release (Adult Low Dose Aspirin) 81 mg PO DAILY HEART HEALTH 07/21/20 [History Last Taken 02/28/23] levothyroxine 175 mcg tablet 175 mcg PO DAILY THYROID 07/21/20 [History Last Taken 02/28/23] metoprolol succinate 200 mg tablet,extended release 24 hr 200 mg PO DAILY BLOOD PRESSURE 07/21/20 [History Last Taken 02/28/23] rosuvastatin 40 mg tablet (Crestor) 40 mg PO DAILY CHOLESTEROL 08/26/22 [History Last Taken 02/28/23] pen needle, diabetic 32 gauge x 5/32" (BD Ultra-Fine [place] Pen Needle) #100 ea 02/13/23 [Rx Last Taken Unknown] dapagliflozin propanediol 10 mg tablet (Farxiga) 10 mg PO DAILY DIABETES 03/01/23 [History Last Taken 02/28/23] losartan 100 mg tablet 100 mg PO DAILY BLOOD PRESSURE 03/01/23 [History Last Taken 02/28/23] acetaminophen 500 mg tablet 1,000 mg (2 x 500 mg) PO Q8 #0 tabs 03/15/23 [Rx Last Taken Unknown] levofloxacin 500 mg tablet 500 mg PO DAILY 26 days #26 tabs 03/15/23 [Rx Last Taken Unknown] potassium chloride 20 mEq tablet,extended release(part/cryst) (Klor-Con M) 20 meq PO BIDCM 30 days #60 tabs 03/15/23 [Rx Last Taken Unknown] trazodone 100 mg tablet 150 mg (1.5 x 100 mg) PO QHS 30 days #45 tabs 03/15/23 [Rx Last Taken Unknown] blood sugar diagnostic (True Metrix Glucose Test Strip) #100 ea 03/24/23 [Rx Last Taken Unknown] glimepiride 4 mg tablet 4 mg PO DAILY #30 tabs 04/10/23 [Rx Last Taken Unknown] insulin aspart (niacinamide)(U-100) 100 unit/mL(3 mL) subcutaneous pen (Fiasp FlexTouch U-100 Insulin) 10 unit subcut TID #9 mL 05/29/23 [Rx Last Taken Unknown] insulin detemir U-100 100 unit/mL (3 mL) subcutaneous pen (Levemir FlexPen) 30 unit (0.3 mL) subcut QHS #9 mL 05/29/23 [Rx Last Taken Unknown] tirzepatide 7.5 mg/0.5 mL subcutaneous pen injector (Mounjaro) 7.5 mg (0.5 mL) subcut QWEEK #2 mL 10/11/23 [Rx Last Taken Unknown] Allergy/AdvReac Type Severity Reaction Status Date / Time piperacillin [From Zosyn] Allergy Severe Anaphylaxis Verified 05/29/23 13:54 tazobactam [From Zosyn] Allergy Severe Anaphylaxis Verified 05/29/23 13:54 sulfamethoxazole Allergy Unknown Anaphylaxis Verified 05/29/23 13:54 [From Bactrim] trimethoprim [From Bactrim] Allergy Unknown Anaphylaxis Verified 05/29/23 13:54 latex Allergy Rash Verified 05/29/23 13:54 pyrethrins Allergy Anaphylaxis Verified 05/29/23 13:54 tetanus and diphtheria Allergy Anaphylaxis Verified 05/29/23 13:54 toxoids [Tetanus&Diphtheria Toxoid] Family History Mother Diabetes Dementia Father Diabetes Myocardial infarction Surgical History H/O amputation of lesser toe (05/05/17) H/O arthroscopic knee surgery (11/2019) History of cholecystectomy History of nasal septoplasty History of thyroidectomy Hx of total knee arthroplasty Social History household members: none Smoking Status: Current every day smoker alcohol intake: current alcohol intake frequency: holidays/special occasions only substance use type: does not use ROS Constitutional Constitutional: Denies anorexia, change in weight, chills, fatigue or fever(s) Eyes Eyes: Denies blurry vision, change in vision or double vision ENT HEENT: Denies dysphagia, nasal congestion, nasal discharge or sore throat Cardiovascular Cardiovascular: Denies chest pain, claudication or palpitations Respiratory/Chest Respiratory/Chest: Denies cough, shortness of breath at rest or wheezing Gastrointestinal Gastrointestinal: Denies abdominal pain, constipation, diarrhea, nausea or vomiting Genitourinary Genitourinary: Denies dysuria, hematuria or urinary urgency Musculoskeletal Musculoskeletal: Denies joint pain, joint stiffness or joint swelling Integumentary Integumentary: Denies lesions, pruritus or rash Neurologic Neurologic: Denies dizziness, numbness or seizures Psychiatric Psychiatric: Reports depression Endocrine Endocrinology: Denies cold intolerance or heat intolerance Hematologic/Lymphatic Hematologic/Lymphatic: Denies easy bleeding or easy bruising Vital Signs Vital Signs Vital Signs: 10/19/23 10:01 Temperature 96.5 F L Temperature Source Temporal Pulse Rate 70 Respiratory Rate 18 Blood Pressure 130/55 H Blood Pressure Mean 80 Blood Pressure Source Monitor Blood Pressure Position Semi-Fowlers Blood Pressure Location Left Arm Weight Weight: 93.44 kg Body Mass Index (BMI) 31.3 Physical Exam Const alert, oriented x3, no apparent distress and well nourished General Appearance: cooperative HEENT normocephalic Eyes Eyes Narrative: Wears glasses General Eye: normal appearance of both eyes Neck General: normal visual inspection Lymph Lymphatic: no lymphadenopathy noted and no lymphedema noted Resp normal respiratory effort Cardio regular rate and regular rhythm Extremity normal capillary refill, no joint enlargement, no calf tenderness and no pedal edema Extremity Narrative: DP and PT pulses weakly palpable bilateral. Capillary fill time is less than 5 seconds to digits. DP and PT pulses monophasic on Doppler bilateral. Dermatological: There is a small ulceration noted in the central plantar aspect of the left heel with local hyperkeratotic tissue and serosanguineous drainage that is scant. No palpable fluctuance, no visible abscess formation, no erythema, no purulent drainage, no malodor. Surrounding skin is xerotic in nature secondary to diabetic autonomic neuropathy and trophic changes to the skin consistent with microvascular disease. Neurological: Absent protective sensation tested with 5.07 [place] monofilament consistent with diabetic peripheral polyneuropathy. Musculoskeletal: Multiple partial digit amputations noted to the left foot and partial fifth ray amputation to the right foot. Muscle strength 5 of 5 age-appropriate. Decreased range of motion of the ankle joint dorsiflexion with theknee extended without pain or crepitus. Decreased range of motion to the subtalar joint, midtarsal joint, and first metatarsophalangeal joint without pain or crepitus. No pain to palpation about ulcerative site secondary to diabetic peripheral polyneuropathy. Skin no rashes or lesions noted, skin turgor normal and no jaundice Neuro moves all extremities Debridement Note Debridement Note Wound debrided: Left heel Laterality: Left Wound Grade/Stage: Galvan stage I Type of Debridement: Excisional debridement Anesthesia Used: 5% Lidocaine Gel Depth: Down to and including healthy tissue and in the subcutaneous layer Percentage of wound debrided: 100 Instrument Used: #15 blade Tissue Removed: Fibrous, devitalized subcutaneous, biofilm, slough Severity: Fat Layer Exposed Amount of bleeding with debridement: Mild Bleeding Controlled with: Compression and gauze Patient tolerated procedure: Patient tolerated procedure well Post-Debridement Measurements and Additional Note: Post-Debridement Measurements/Treatment - Nurse 1 - General Ulcer Assessment Start: 10/19/23 10:00 Freq: Status: Active Protocol: BUSTER Activity Type Activity Date Activity User E-sign Co-sign Detail Recorded Client Recorded Date Recorded By Document 10/19/23 10:01 Laptop 10/19/23 10:16 10/19/23 10:01 - Today's Visit Information Type of service Initial Visit Arrival Mode Ambulatory,Cane Patient Identification Verified (Name & Yes ) Patient Requires Transmission-Based No Precautions Finger Stick Blood Sugar(mg/dl) (if 100 indicated): Blood Sugar Stated by Patient Height and Weight Height 5 ft 8 in Weight 93.44 kg Weight in Pounds 206.0 lbs Weight Measurement Method Estimated by Patient Body Mass Index (BMI) 31.3 BMI Classification Obese BSA - Charlene 2.07 Vital Signs Temperature (97.8 F-99.1 F) 96.5 F L Temperature Source Temporal Pulse Rate (60-100) 70 Pulse Location Monitor Respiratory Rate (12-18) 18 Respiratory rate source Observation Blood Pressure (90/60-120/80) 130/55 H Blood Pressure Mean 80 Source Monitor Position Semi-Fowlers Blood Pressure Location Left Arm History Since Last Visit- (Skip if this is Patient's initial visit) Left Footwear Surgical Shoe with pressure relief insole Right Footwear Regular Shoe Pain Scale: 0-10 Numeric Is Patient Pain Free? Yes Lower Extremity Assessment/ Foot Assessment/ Toe Nail Assessment Right -Posterior Tibial Palpable No -Posterior Tibial Doppler Inaudible -Dorsalis Pedis Palpable Yes -Dorsalis Pedis Doppler Multiphasic -Hair Growth on Legs No -Hair Growth on Toes No -Temperature of Extremity Cool -Capillary Refill Greater than 3 Seconds -Dependent Rubor No -Blanched when Elevated Yes -Thick Yes -Discolored Yes -Deformed Yes -Improper Length & Hygeine No Left -Posterior Tibial Palpable Yes -Posterior Tibial Doppler Multiphasic -Dorsalis Pedis Palpable Yes -Dorsalis Pedis Doppler Multiphasic -Extremity Color Pale -Hair Growth on Legs No -Hair Growth on Toes No -Temperature of Extremity Cool -Capillary Refill Greater than 3 Seconds -Dependent Rubor No -Blanched when Elevated Yes -Thick Yes -Discolored Yes -Deformed Yes -Improper Length & Hygeine No Communication Assessment Preferred language Malagasy Able to Read Yes Able to Write Yes Communication Tools None Right Hearing Abillity Normal Left Hearing Abillity Normal Visual Assistive Devices Glasses Teaching Assessment Preferences Verbal,Written, Audio/Visual, Demonstration Barriers to Learning None Readiness To Learn Good Willingness to Engage in Self Management Med Activies Readiness to Engage in Self Management Med Activities Anxiety Level Calm Cooperation Cooperative Perception Coherent Interest in Health Problem Asks Questions Education Importance Acknowledges Need Does Patient Smoke tobacco or other Yes substances Smoking Status Current every day smoker Is Patient Diabetic Yes Functional Assessment Recent Decline in Ability to Perform Ambulation Culture/Orthodoxy/Urgent Care Technician Cultural/Orthodoxy Needs that may affect No Treatment Plan Would you allow our hospital scientific programmer analyst to No meet you for the purpose of spiritual/ emotional support? Urgent Care Technician to contact place of quaker No WC - Nurse 1 - General Ulcer Measurement Start: 10/19/23 10:00 Freq: Status: Active Protocol: Activity Type Activity Date Activity User E-sign Co-sign Detail Recorded Client Recorded Date Recorded By Document 10/19/23 10:01 Laptop 10/19/23 10:16 10/19/23 10:01 Wound Center Nurse 1 3-left heel -Combined with other wound No -Current Size (cm) - Length 0.3 -Current Size (cm) - Width 0.2 -Current Size (cm) - Depth 0.3 -Total Square Cm 0.06 -Photo Taken Yes -Epithelialization Large 67-100% -Tunneling No -Undermining/Tunneling No -Circular Undermining No -Classification - Galvan Grading ( Grade 2 Diabetic Ulcer) -Exudate Amt Small -Exudate Type Serosanguineous -Wound Margin Flat & Intact -Granulation Amt Medium (34-66%) -Granulation Quality [place] -Slough/Fibrin Yes -Necrosis Amt Small (1-33%) -Necrotic Tissue Type Adherent Slough -Structure Exposed N/A -Texture (Yanely-wound Skin Appearance) Assessed,Callus -Moisture (Yanely-wound Skin Appearance) Assessed,Dry/ Scaly -Color (Yanely-wound Skin Appearance) Assessed -Temperature (Yanely-wound Skin No Abnormality Appearance) (Pt Warm) -Tenderness on Palpation (Yanely-wound No Skin Appearance) -Ulcer Cleansing Wound Cleanser -Foul Odor after Cleansing No -Anesthetic Used 5% Lidocaine Gel Right Calf (cm) 34.5 Right Ankle (cm) 23.0 WC - Nurse 2 - General Ulcer CM Notes Start: 10/19/23 10:00 Freq: Status: Active Protocol: Activity Type Activity Date Activity User E-sign Co-sign Detail Recorded Client Recorded Date Recorded By Document 10/19/23 12:06 PL [id number] 10/19/23 12:07 PL 10/19/23 12:06 Wound Center Nurse 2 3-left heel -Time 10:50 -Correct Patient Yes -Correct Side, Site, Position Yes -Correct Procedure Yes -Procedure Performed Yes -Type of Procedure Debridement -Clinical Debridement Subcutaneous -Tissue Removed Subcutaneous -Post Debridement (cm) - Length 0.3 -Post Debridement (cm) - Width 0.2 -Post Debridement (cm) - Depth 0.2 -Total Square (Post) (cm) 0.06 -Area of Debridement (cm) - Length 0.3 -Area of Debridement (cm) - Width 0.2 -Total Square (Area) (cm) 0.06 -Tunneling No -Undermining/Tunneling No -Circular Undermining No -Wound/Ulcer Outcome Not Healed -Ulcer Cleansing Rinsed/ Irrigated with Saline -Foul Odor after Cleansing No -Bioengineered Tissue No -Debridement - Subq, 1st 20sq cm Yes Pain Scale: 0-10 Numeric Is Patient Pain Free? Yes Assessment/Plan Assessment/Plan (1) Non-pressure chronic ulcer of left heel and midfoot with fat layer exposed: CODE(S): L97.422 - Non-pressure chronic ulcer of left heel and midfoot with fat layer exposed (2) Diabetes mellitus with diabetic polyneuropathy: CODE(S): E11.42 - Type 2 diabetes mellitus with diabetic polyneuropathy QUALIFIERS: Diabetes mellitus type: type 2 Diabetes mellitus chcf insulin use: with alf use Qualified Code(s): E11.42 - Type 2 diabetes mellitus with diabetic polyneuropathy; Z79.4 - care home (current) use of insulin (3) Type 2 diabetes mellitus with foot ulcer: CODE(S): E11.621 - Type 2 diabetes mellitus with foot ulcer; L97.509 - Non- pressure chronic ulcer of other part of unspecified foot with unspecified severity (4) Peripheral vascular disease, unspecified: CODE(S): I73.9 - Peripheral vascular disease, unspecified (5) Essential (primary) hypertension: CODE(S): I10 - Essential (primary) hypertension (6) Hyperlipidemia: CODE(S): E78.5 - Hyperlipidemia, unspecified PLAN: Plan Patient seen and evaluated Ulceration underwent debridement as noted in clinical panel above. Ulceration measures 0.3 cm x 0.2 cm x 0.2 cm. Ulcerative site was dressed with Marry to the wound base and dry sterile dressing. She is to change dressing daily. A felt offloading cut out was applied around the wound site and she may continue to ambulate in surgical shoe with a this offloading padding to left heel. Discussed with her proper diabetic diet to ensure tight glycemic control. States her last A1c was around 7%. Discussed the importance of not ambulating barefoot, this includes socks. Encouraged protective shoe gear to be worn at all times. Discussed the need for proper foot checks nightly and if any suspicious cuts or lesions or wounds appear she is to report to the foot and ankle Center. Discussed essential to continue to offload ulceration as direct pressure and continued ambulation may be affecting her healing. Discussed with her today the signs and symptoms of infection. Discussed if she notices increasing redness about the wound that creeps up to the side of the foot or up the leg, increasing foul odor from the wound site, purulent drainage from the wound site, or if she experiences fever greater than 101 degree accompanied by nausea, vomiting, and chills that these are signs of a progressing infection and she should report to the ED to receive IV antibiotics. She voices understanding of this today. The following work up and care recommendations were made: Dressing: Marry dry sterile dressing. Change dressing daily. Wash: Soap and water Tissue growth optimization: Marry Offload: Plantar offloading padding about the heel and surgical shoe to left foot Vascular: Weakly palpable DP and PT pulses that are monophasic on Doppler. There is a component of microvascular disease with trophic changes to the skin. However I do not feel this is impacting healing status at this time as wound is more related to pressure. Edema: Recommended Tubigrip compression stockings and elevation of lower extremities at times of rest Infection: No signs of infection Pain: May take [id number] Tylenol as needed for discomfort. She is to avoid ibuprofen. Host factors: DM type II with peripheral polyneuropathy, peripheral vascular disease, HTN, HLD, pressure. I answered all the patient's questions. To return to the wound healing center in 1 week or call sooner if the patient has any questions or concerns. 10/19/23 1308 <Electronically signed by Zack Smith DPM> Cosigner Signature (if applicable): CC: ~ Signed [facility] Work Phone: 1(388) 946-344007-07-2023 Progress note Author Gautam Walters [facility] March 17, 2023 9:20am Note Date/Time March 17, 2023 9:20a m [facility] Medical Records Department [address] [place] [address] Progress Note 03/17/23 0919 MR#: [id number] Acct: [id number] Name: REMI BELTRAN Rep #:[id number] : 1965 57 From: Gautam Walters DPM PCP: Dr. Gulshan Early MD Status:ADM I N Location: [place] [address] Objective Data Objective Data Vital Signs: Vital Signs Temp Pulse Resp BP Pulse Ox O2 Del Method FiO2 96.9 F L 62 14 115/51 L 96 Room Air 21 03/16/23 16:00 03/17/23 05:27 03/16/23 22:00 03/17/23 05:27 03/16/23 22:00 03/16/23 22:00 03/08/23 21:53 Oxygen Delivery Method Room Air Weight: 110.421 kg Body Mass Index (BMI) 37.0 Intake & Output: Intake and Output for Last 24 Hours 03/15/23 03/16/23 03/17/23 23:59 23:59 23:59 Intake Total 1080 / 1080 840 / 840 Output Total 500 / 500 Balance 580 / 580 840 / 840 Lab / Micro Data 03/15/23 05:13 03/15/23 05:13 Labs: Laboratory Results - last 24 hr 03/16/23 11:13: POC Glucose 240 H 03/16/23 17:18: POC Glucose 173 H 03/16/23 21:51: POC Glucose 291 H 03/17/23 06:11: POC Glucose 213 H Physical Exam Const alert, oriented x3 and no apparent distress HEENT normocephalic Eyes General Eye: normal appearance of both eyes Neck General: normal visual inspection Lymph Lymphatic: no lymphadenopathy noted and no lymphedema noted Resp normal respiratory effort Cardio regular rate and regular rhythm Extremity normal capillary refill, no calf tenderness and no pedal edema Extremity Narrative: DP and PT pulses palpable with adequate capillary fill time to the digits of theright foot. Dermatological: Right foot fifth digit amputation and fifth metatarsal head amputation noted. Distal wound is noted with proximal sutures intact. wound base is healthy and viable in appearance with goose pimple texture consistent with granular tissue. No purulent drainage, no malodor, no erythema, no palpable fluctuance/bogginess noted, no visible abscess formation, no lymphangitic streaking. Musculoskeletal: Muscle strength is 5 of 5 age-appropriate. No pain to palpation about the amputation stump or along suture line. 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 DOS: 03/02/2023, 2 weeks post op Surgical cultures demonstrate strep agalactiae and PsA. Patient on IV antibiotictherapy per infectious disease recommendation Wound VAC removed from right amputation stump and wound was inspected. Right foot fifth digit amputation and fifth metatarsal head amputation noted. Distal wound is noted with proximal sutures intact. wound base is healthy and viable inappearance with goose pimple texture consistent with granular tissue. No signs of infection. Cellulitis resolved. Currently healing well Wound VAC was reapplied to the distal amputation stump. Wound VAC seal achievedand is set to 125 mm intermittent pressure. Wound VAC to be changed M, W, F. Wound nurse is assisting in dressing changes, she is greatly appreciated Patient is to remain nonweightbearing to the right foot. Podiatry will continue to follow weekly Please do not hesitate to call for any questions or concerns Gautam Walters D.P.M. [facility] [phone] 03/17/23 0920 <Electronically signed by Gautam Walters DPM> Gautam Walters DPM Cosigner Signature (if applicable): CC: ~ Signed [facility] Work Phone: 1(318) 931-560407-05-2023 Discharge summary Author Gulshan Early [facility] March 15, 2023 8:17pm Note Date/Time March 15, 2023 8:10p m [facility] Medical Records Department [address] [place] [address] [place] [address] Discharge Summary 03/15/232007 MR#: [id number] Acct: [id number] Name: REMI BELTRAN Rep #:[id number] : 1965 57 From: Gulshan Early MD PCP: Dr. Gulshan Early MD Status:ADM I N Location: [place] [address] Providers Date of Admission: 03/07/23 Primary Care Physician: Dr. Gulshan Early MD Consultations 03/07/23 14:55 Consult: Onc/Wound/mount loader Routine Comment: wound VAC Reason for Consult:: right foot wound 03/07/23 22:42 Consult: Podiatry Routine Consulting Provider: Tereso Navarro Reason for Consult: Right foot osteo, s/p right 5th toe amp, s/p right 5th metatarsal partial EMERGENT Consult: No MD Notified: Yes Date Notified: 03/08/23 Time Notified: 09:50 Method of Notification: Answering Service Reason For Visit: OSTEO Diagnosis Discharge Diagnosis (1) Obesity: Status: Chronic Code(s): E66.9 - Obesity, unspecified (2) Diabetic foot ulcer: Status: Acute Code(s): E11.621 - Type 2 diabetes mellitus with foot ulcer; L97.509 - Non-pressure chronic ulcer of other part of unspecified foot with unspecified severity (3) Cellulitis of right lower limb: Status: Acute Code(s): L03.115 - Cellulitis of right lower limb (4) Type 2 diabetes mellitus with foot ulcer: Status: Acute Code(s): E11.621 - Type 2 diabetes mellitus with foot ulcer; L97.509 - Non-pressure chronic ulcer of other part of unspecified foot with unspecified severity (5) Foot osteomyelitis, right: Status: Acute Code(s): M86.9 - Osteomyelitis, unspecified (6) Non-pressure chronic ulcer of other part of right foot with fat layer exposed: Status: Chronic Code(s): L97.512 - Non-pressure chronic ulcer of other part of right foot with fat layer exposed (7) 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 Navarro, admitted to TCU with debility, here for rehabilitation, strengthening, prior to discharge home alone. * Debility - PT/OT. * Pain - Tylenol 1000mg q8h, Tramadol 50mg q6h prn pain (1-5), Oxycodone 5mg q4h prn pain (6-10). * Bowel - senna/colace 1 tablet bid, Magnesium citrate 300ml po x 1 prn. * Adult immunization - Administer pneumonia vaccine, covid19 vaccine, flu vaccine as appropriate. * DVT prophylaxis - Hold, monitor. * CV prophylaxis - Aspirin 81mg daily. * Hyperlipidemia - Atorvastatin 80mg qhs. * Diabetes Mellitus II - Metformin 1000mg bidcm, Glimepiride 4mg bid, Jardiance 25mg daily, Glargine 55 units daily, Mounjaro 2.5mg qweek. * Osteomyelitis right foot status post amputation - Levaquin 500mg daily thru 04/14/2023, Consult Dr. Navarro. * Hypothyroidism - Levothyroxine 175mcg daily. * Hypertension - Metoprolol succinate 200mg daily, Losartan 100mg daily. * Tinea Corporis - Nystatin topical bid. * GERD - Pantoprazole 40mg daily. * Depression - Paroxetine 40mg daily, stable chronic oil heaterman use, GDR not recommended. * Hypokalemia - KCL 20meq daily. * Diabetic polyneuropathy - Lyrica 150mg tid. * Insomnia - Trazodone 200mg qhs, stable chronic alf use, GDR not recommended. Medications at Discharge Home Medications omeprazole 40 mg capsule,delayed release 40 mg PO DAILY ACID REFLUX 10/18/18 paroxetine HCl 40 mg tablet 40 mg PO DAILY DEPRESSION 10/29/19 pregabalin 150 mg capsule 150 mg PO TID NERVE PAIN 10/29/19 aspirin 81 mg tablet,delayed release (Adult Low Dose Aspirin) 81 mg PO DAILY HEART HEALTH 07/21/20 levothyroxine 175 mcg tablet 175 mcg PO DAILY THYROID 07/21/20 metoprolol succinate 200 mg tablet,extended release 24 hr 200 mg PO DAILY BLOOD PRESSURE 07/21/20 rosuvastatin 40 mg tablet (Crestor) 40 mg PO DAILY CHOLESTEROL 08/26/22 pen needle, diabetic 32 gauge x 5/32" (BD Ultra-Fine Catalina Pen Needle) #100 ea 02/13/23 dapagliflozin propanediol 10 mg tablet (Farxiga) 10 mg PO DAILY DIABETES 03/01/23 losartan 100 mg tablet 100 mg PO DAILY BLOOD PRESSURE 03/01/23 tirzepatide 2.5 mg/0.5 mL subcutaneous pen injector (Mounmemoro) 2.5 mg subcut WE DIABETES 03/01/23 acetaminophen 500 mg tablet 1,000 mg (2 x 500 mg) PO Q8 #0 tabs 03/15/23 arginine 7 gram-glutam 7 gram-CaHMB 1.5 [id number] oral pwd pkt (Drew (with collagen)) 1 packet PO BIDCM 30 days #60 ea 03/15/23 levofloxacin 500 mg tablet 500 mg PO DAILY 26 days #26 tabs 03/15/23 potassium chloride 20 mEq tablet,extended release(part/cryst) (Klor-Con M) 20 meq PO BIDCM 30 days #60 tabs 03/15/23 trazodone 100 mg tablet 150 mg (1.5 x 100 mg) PO QHS 30 days #45 tabs 03/15/23 Hospital Course Operations - (See below.) Procedures None Summary of Care Provided Minutes Spent on Discharge: 35 Hospital Course: 57 year old female with below past medical history hospitalized for osteomyelitis right foot, underwent right 5th toe amputation, partial 5th metatarsal amputation 03/02/[address] Navarro, admitted to TCU with debility, here for rehabilitation, strengthening, prior to discharge home alone. Discharge home 03/19/2023 with daughter support, Home Health Care PT/OT/SN. Physical Exam Const alert General Appearance: cooperative HEENT normocephalic Eyes PERRL and EOMs intact bilaterally Neck supple, no JVD and no carotid bruits Resp normal respiratory effort, normal air movement and clear to auscultation bilaterally Cardio regular rate and regular rhythm GI normal to inspection, nondistended, normoactive bowel sounds, non-tender and non-distended Extremity normal capillary refill General Extremity: Negative for edema Skin no rashes or lesions noted General Skin Exam: no breakdown Psych affect normal Appearance: appropriate Weight / BMI Weight Weight: 110.421 kg Body Mass Index (BMI) 37.0 ABG / Lab / Microbiology Data 03/15/23 05:13 03/15/23 05:13 Laboratory: Laboratory Results - last 24 hr 03/03/23 16:00: POC Glucose 125 H 03/04/23 11:00: POC Glucose 125 H 03/04/23 16:00: POC Glucose 122 H 03/14/23 22:12: POC Glucose 273 H 03/15/23 05:13: WBC 5.3, RBC 3.72 L, Hgb 10.2 L, Hct 34.4 L, MCV 92.5, MCH 27.4,MCHC 29.7 L, RDW Std Deviation 50.9 H, RDW Coeff of Kami 15.2 H, Plt Count 293, MPV 9.2, Immature Gran % (Auto) 0.400, Neut % (Auto) 41.9 L, Lymph % (Auto) 44.2H, Evangeline % (Auto) 9.3, Eos % (Auto) 3.4, Baso % (Auto) 0.8, Absolute Neuts (auto)2.2, Absolute Lymphs (auto) 2.32, Nucleated RBC % 0, Sodium 140, Potassium 3.8, Chloride 103, Carbon Dioxide 33.0 H, Anion Gap 4 L, BUN 24 H, Creatinine 0.63, Estim Creat Clear Calc 98.19, Est GFR (MDRD) Af Amer 124, Est GFR (MDRD) Non-Af 102, BUN/Creatinine Ratio 37.9 H, Glucose 214 H, Calcium 8.4 L 03/15/23 06:32: POC Glucose 186 H 03/15/23 11:17: POC Glucose 269 H 03/15/23 16:15: POC Glucose 220 H D/C Instructions Discharge Diet: No restrictions Discharge Activity: Return to Normal Activity, May Shower and Use Walker Weight Bearing Status: No weight bearing (Right lower extremity.) Call your doctor if you observe: Fever of 101 or Higher, Inability to urinate, Inability to have a bowel movement, Shortness of breath, Dizziness, Fainting spells, Swelling in the ankles, Chest pain and Uncontrolled pain Additional Instructions: Discharge home 03/19/2023 with daughter support, Home Health Care PT/OT/SN. Please Follow Up With: Zack Smith DPM When: 1 week. Meaningful Use Info Meaningful Use Diagnoses (Choose all that apply): None applicable Discharge Plan Admission Admit Date/Time: 03/07/23 13:10 Primary Reason for Your Visit: Debility. Attending Provider: Gulshan Early Chi Primary Care Provider: Gulshan Early Chi Consulting Providers: Tereso Navarro Instructions Additional Instructions / Restrictions: Discharge home 03/19/2023 with daughter support, Home Health Care PT/OT/SN. Discharge Orders/Prescriptions Prescriptions: New acetaminophen 500 mg Tablet 1,000 mg PO Q8 Qty: 0 0RF potassium chloride [Klor-Con M20] 20 mEq Tablet,Er Particles/Crystals 20 meq PO BIDCM 30 Days Qty: 60 0RF trazodone 100 mg Tablet 150 mg PO QHS 30 Days Qty: 45 0RF levofloxacin 500 mg Tablet 500 mg PO DAILY 26 Days Qty: 26 0RF Drew (with collagen) 7-7-1.5 gram Powder In Packet 1 packet PO BIDCM 30 Days Qty: 60 0RF Continued omeprazole 40 mg capsule,delayed release(DR/EC) 40 mg PO DAILY levothyroxine 175 mcg tablet 175 mcg PO DAILY aspirin [Adult Low Dose Aspirin] 81 mg tablet,delayed release (DR/EC) 81 mg PO DAILY metoprolol succinate 200 mg tablet extended release 24 hr 200 mg PO DAILY paroxetine HCl 40 MG tablet 40 mg PO DAILY pregabalin 150 MG capsule 150 mg PO TID rosuvastatin [Crestor] 40 mg Tablet 40 mg PO DAILY losartan 100 mg tablet 100 mg PO DAILY Farxiga 10 mg tablet 10 mg PO DAILY Mounjaro 2.5 mg/0.5 mL pen injector 2.5 mg subcut WE Discontinued celecoxib 200 mg capsule 200 mg PO DAILY montelukast 10 mg tablet 10 mg PO QHS metformin 1,000 mg tablet 1,000 mg PO BID loratadine 10 mg capsule 10 mg PO DAILY cilostazol 100 mg tablet 100 mg PO DAILY potassium chloride 20 MEQ tablet 20 meq PO DAILY calcium carbonate-vitamin D3 1 EACH tablet 1 ea PO DAILY ferrous sulfate [iron] 325 mg (65 mg iron) Tablet 325 mg PO DAILY albuterol sulfate [ProAir HFA] 90 mcg/actuation Hfa Aerosol Inhaler 1 inh INHALATION Q6H PRN (Reason: SHORTNESS OF BREATH ) multivitamin Tablet 1 tab PO DAILY trazodone 100 mg tablet 200 mg PO QHS glimepiride 4 mg tablet 4 mg PO BID ipratropium bromide 42 mcg (0.06 %) spray,non-aerosol 2 spray INTRANASAL DAILY vitamin B complex Capsule 1 cap PO DAILY Levemir FlexPen 100 unit/mL (3 mL) insulin pen 55 unit subcut DAILY levofloxacin 500 mg tablet 500 mg PO DAILY No Action (DME) pen needle, diabetic [BD Ultra-Fine Catalina Pen Needle] 32 gauge x 5/32" needle See Rx Instructions .Route Qty: 100 3RF Rx Instructions: daily Referrals / Follow Up: Gulshan Early Chi, MD [Primary Care Provider] - Disposition Disposition (needs filled in before D/C Order can be placed): Home Health Service 03/15/232016 <Electronically signed by Gulshan Early MD> Cosigner Signature (if applicable): CC: Dr. Gulshan Early MD~ Signed [facility] Work Phone: [phone]) 435-434807-05-2023 Progress note Author Gulshan Early [facility] March 15, 2023 7:39am Note Date/Time March 10, 2023 3:44 pm [facility] Medical Records Department [address] [place] [id number] Progress Note - Pharmacy 03/10/23 1538 MR#: [id number] Acct: [id number] Name: REMI BELTRAN Rep #:[id number] : 1965 57 From: Christen Presley PCP: Dr. Gulshan Early MD Status:ADM I N Location: TCU [place] [address] TCU RX Drug Regimen Review Subjective/Objective Subjective/Objective: Subjective: TCU Admission. 57 YOF presented to the ER with a wound. Hospitalizedfor osteomyelitis right foot, underwent right 5th toe amputation, partial 5th metatarsal amputation 03/02/[address] Navarro. Admitted to TCU with debility for strengthening and rehabilitation. Objective: Allergies piperacillin [From Zosyn] Allergy (Severe, Verified 03/01/23 10:39) Anaphylaxis tazobactam [From Zosyn] Allergy (Severe, Verified 03/01/23 10:39) Anaphylaxis sulfamethoxazole [From Bactrim] Allergy (Unknown, Verified 03/01/23 13:34) Anaphylaxis trimethoprim [From Bactrim] Allergy (Unknown, Verified 03/01/23 13:34) Anaphylaxis latex Allergy (Verified 03/01/23 09:27) Rash tetanus and diphtheria toxoids [Tetanus&Diphtheria Toxoid] Allergy (Verified 03/01/23 09:27) Anaphylaxis flea medicine Allergy (Uncoded 03/01/23 09:27) Anaphylaxis, Diarrhea Current Medications Generic Name Dose Route Start Last Admin Trade Name Freq PRN Reason Stop Dose Admin Acetaminophen 1,000 mg 03/07/23 17:45 03/10/23 13:27 Acetaminophen 500 Mg Tablet PO 1,000 mg Q8 RUTH Administration Aspirin 81 mg 03/08/23 06:00 03/10/23 06:42 Aspirin E.C. 81 Mg Tablet PO 81 mg DAILY RUTH Administration Atorvastatin Calcium 80 mg 03/07/23 22:00 03/09/23 21:55 Atorvastatin Calcium 80 Mg Tablet PO 80 mg QHS RUTH Administration Empagliflozin 25 mg 03/08/23 06:00 03/10/23 06:51 Empagliflozin 25 Mg Tablet PO Not Given DAILY RUTH L-Arginine/L-Glutamine/Calcium HMB 1 packet 03/08/23 17:00 03/10/23 08:32 Drew (Unflavored) Packet PO 1 packet BIDCM RUTH Administration Levofloxacin 500 mg 03/08/23 06:00 03/10/23 06:42 Levofloxacin 500 Mg Tablet PO 04/14/23 06:01 500 mg DAILY RUTH Administration Levothyroxine Sodium 175 mcg 03/08/23 06:00 03/10/23 06:41 Levothyroxine 175 Mcg Tablet PO 175 mcg DAILY RUTH Administration Losartan Potassium 100 mg 03/08/23 06:00 03/10/23 06:42 Losartan Potassium 100 Mg Tablet PO 100 mg DAILY RUTH Administration Magnesium Citrate 300 ml 03/07/23 22:42 Magnesium Citrate 300 Ml PO X1 PRN Constipation Metoprolol Succinate 200 mg 03/08/23 06:00 03/10/23 06:45 Metoprolol(Xl)Succ 200 Mg Tablet PO 200 mg DAILY RUTH Administration Nystatin 1 applic 03/07/23 22:00 03/10/23 08:33 Nystatin Powder 15gm Bottle TOPICAL 1 applic 1000,2200 RUTH Administration Protocol Oxycodone HCl 5 mg 03/07/23 17:32 03/09/23 21:52 Oxycodone 5 Mg Tablet PO 5 mg Q4H PRN PRN Administration Pain Score 6-10 Pantoprazole Sodium 40 mg 03/08/23 06:00 03/10/23 06:41 Pantoprazole Sodium 40 Mg Tablet PO 40 mg DAILY RUTH Administration Paroxetine HCl 40 mg 03/08/23 06:00 03/10/23 06:41 Paroxetine 20 Mg Tablet PO 40 mg DAILY RUTH Administration Potassium Chloride 20 meq 03/08/23 08:00 03/10/23 08:30 Potassium Chloride Oral Tablet 20 Meq PO 20 meq BIDCM RUTH Administration Pregabalin 150 mg 03/07/23 22:00 03/10/23 13:27 Pregabalin 75 Mg Capsule PO 150 mg TID RUTH Administration Senna/Docusate Sodium 1 tablet 03/07/23 22:45 03/10/23 06:41 Senna/Docusate Sodium 1 Tablet PO 1 tablet BID RUTH Administration Tramadol HCl 50 mg 03/07/23 17:32 Tramadol 50 Mg Tablet PO Q6H PRN PRN Pain Score 1-5 Trazodone HCl 150 mg 03/09/23 22:00 03/09/23 21:54 Trazodone 100 Mg Tablet PO 150 mg QHS RUTH Administration Tuberculin PPD 0.1 ml 03/15/23 10:00 Tuberculin,Purif.Prot.Deriv. 50 Tu/Ml Vial ID 03/15/23 10:01 X1 ONE Problem List Insomnia (Acute) Hyperlipidemia (Acute) Hypothyroidism (Acute) Diabetic polyneuropathy (Acute) Hypokalemia (Acute) Depression (Acute) GERD (gastroesophageal reflux disease) (Acute) Diabetes mellitus (Acute) Foot osteomyelitis, right (Acute) Debility (Acute) Type 2 diabetes mellitus with foot ulcer (Acute) Vital Signs Temp Pulse Resp BP Pulse Ox O2 Del Method FiO2 96.5 F L 68 18 95/47 L 92 Room Air 21 03/10/23 08:26 03/10/23 11:37 03/10/23 08:26 03/10/23 11:37 03/10/23 08:26 03/10/23 08:26 03/08/23 21:53 Oxygen Delivery Method Room Air Weight: 109.679 kg Body Mass Index (BMI) 36.7 Sodium 139 mmol/L (136-145) 03/09/23 05:21 Potassium 3.8 mmol/L (3.5-5.1) 03/09/23 05:21 Chloride 103 mmol/L (98-107) 03/09/23 05:21 Carbon Dioxide 32.0 mmol/L (21.0-32.0) 03/09/23 05:21 Anion Gap 4 (5-15) L 03/09/23 05:21 BUN 25 mg/dL (7-18) H 03/09/23 05:21 Creatinine 0.57 mg/dL (0.55-1.02) 03/09/23 05:21 Est GFR (MDRD) Af Amer 141 mL/min (>60) 03/09/23 05:21 Est GFR (MDRD) Non-Af 117 mL/min (>60) 03/09/23 05:21 BUN/Creatinine Ratio 44.2 RATIO (10-20) H 03/09/23 05:21 Glucose 88 mg/dL (74-106) 03/09/23 05:21 Assessment/Plan: ? 1. Pain: acetaminophen 1000mg PO Q8, tramadol 50mg PO Q6H PRN pain 1-5 and oxycodone 5mg PO Q4H PRN pain 6-10. Resident has had 4 doses of oxycodone for a pain scores of 6 and 9 in the foot/toe. No doses of tramadol have been given. Please continue to monitor for constipation, PRN usage, increased pain and respiratory depression. 2. Bowel: senna/docusate 1T PO BID and magnesium citrate 300mL PO x1 PRN constipation. No PRN doses have been given. Please continue to monitor for constipation and PRN usage. Last documented bowel movement 03/09. 3. Osteomyelitis of R foot s/p amputation: levofloxacin 500mg PO daily thru 04/14/23 (recommended by ID). Podiatry consulted. Please continue to monitor for S/S of infection, diarrhea and renal function. 4. CV prophylaxis: aspirin 81mg PO daily. Please continue to monitor for S/S of bleeding/chest pain/stroke and hemoglobin (last 10.2g/dL). 5. Hyperlipidemia: atorvastatin 80mg PO QHS. Please continue to monitor for muscle pain, lipid panel (last 02/20/23) and LFTs (last 03/01/23). 6. Diabetes Mellitus II: empagliflozin 25mg PO daily and Mounjaro 2.5mg SC Wednesdays. Please continue to monitor for S/S of hypoglycemia, eGFR (last 117mL/min), hemoglobin A1c (last 6.3% 03/08/23), diarrhea, and glucose (last 153mg/dL). 7. Hypertension: metoprolol succinate 200mg PO daily and losartan 100mg PO daily. Please continue to monitor BP (last 95/47), renal function and HR (last 68). Please consider adding hold parameters if clinically appropriate as the last two blood pressures were 95/47 and 88/50. Thanks. 8. Hypothyroidism: levothyroxine 175mcg PO daily. Please continue to monitor forS/S of hypo/hyperthyroidism and TSH (last 03/02/23). 9. GERD: pantoprazole 40mg PO daily. Please continue to monitor for S/S of GERD and diarrhea. 10. Hypokalemia: potassium chloride 20mEq PO BIDCM. Please continue to monitor potassium (last 3.8mmol/L). Assessment/Plan for indications treated with psychotropic medications: 1. Depression: paroxetine 40mg PO daily. Please see physician note regarding GDR. Please continue to monitor for suicidal ideation (black box warning), weight gain, GI side effects, insomnia and dry mouth. 2. Insomnia: trazodone 150mg PO QHS. Please see physician note regarding GDR. Please continue to monitor for excessive drowsiness, dizziness, dry mouth and suicidal ideation (black box warning). 3. Diabetic polyneuropathy: pregabalin 150mg PO TID. GDR not appropriate as thismedication is being used for polyneuropathy. Please continue to monitor renal function and nerve pain. Medical chart and medication regimen reviewed. The following medication irregularities or issues were identified: *1. Metoprolol succinate 200mg PO daily and losartan 100mg PO daily. Please consider adding hold parameters if clinically appropriate as the last two blood pressures were 95/47 and 88/50. Thanks. Date Date of Note:: 03/10/23 03/10/23 1553 <Electronically signed by Christen Presley> Christen Parker Signature (if applicable): 03/15/23 0739 <Electronically signed by Gulshan Early MD> CC: ~ Signed [facility] Work Phone: [phone]) 624-263306-30-2023 Consult note Author Zack Smith [facility] March 10, 2023 7:17pm Note Date/Time March 10, 2023 7:17 pm [facility] Medical Records Department [address] [place] [address] Consultation 03/10/23 1845 MR#: [id number] Acct: [id number] Name: REMI BELTRAN Rep #:[id number] : 1965 57 From: Zack chakraborty DPM PCP: Dr. Gulshan Early MD Status:ADM I N Location: [place] [address] Assessment & Plan Assessment/Plan (1) Obesity: (2) Diabetic foot ulcer: (3) Cellulitis of right lower limb: (4) Type 2 diabetes mellitus with foot ulcer: (5) Foot osteomyelitis, right: (6) Non-pressure chronic ulcer of other part of right foot with fat layer exposed: (7) History of partial ray amputation of fifth toe of right foot: (8) Diabetes mellitus with diabetic polyneuropathy: PLAN: Plan Patient seen and evaluated She is s/p partial fifth ray amputation right foot. DOS: 03/02/2023, POD #8 Surgical cultures demonstrate strep agalactiae and PsA. Patient on IV antibiotictherapy per infectious disease recommendation Wound VAC removed from right amputation stump and wound was inspected. Right foot fifth digit amputation and fifth metatarsal head amputation noted. Distal wound is noted with proximal sutures intact. wound base is healthy and viable inappearance with goose pimple texture consistent with granular tissue. No signs of infection. Cellulitis resolved. Currently healing well Wound VAC was reapplied to the distal amputation stump. Wound VAC seal achievedand is set to 125 mm intermittent pressure. Wound VAC to be changed M, W, F. Wound nurse is assisting in dressing changes, she is greatly appreciated Patient is to remain nonweightbearing to the right foot. Podiatry will continue to follow weekly Please do not hesitate to call for any questions or concerns Zack Smith Jr. [facility] [phone] HPI Consult Data Date of Consult: 03/10/23 HPI Narrative Reason for Consultation: S/p partial fifth ray amputation right foot HPI Narrative: REMI BELTRAN, is a 57 F who presents to the TCU for rehabilitation s/p partialfifth ray amputation of the right foot. DOS: 03/02/2023. Podiatry consulted forcontinued management in her postoperative setting in addition to local wound care. [facility] Medical History (Updated 03/10/23 @ 19:[address] Zack Smith, DPM) Anxiety Arthritis Asthma Asthma Back pain Broken teeth Cardiology follow-up encounter Chronic steroid use CPAP (continuous positive airway pressure) dependence Depression Dermatitis Diabetes type 2, uncontrolled Dietary restriction Difficulty balancing when standing Edema Essential (primary) hypertension Fibromyalgia GERD (gastroesophageal reflux disease) Hammertoe of left foot History of pain when walking History of partial ray amputation of fifth toe of right foot History of stress test Hypergammaglobulinemia Hyperlipemia Hypertension Hypothyroidism Iron deficiency Leg cramping Morbid obesity with BMI of 40.0-44.9, adult Multinodular thyroid Non-smoker Normal echocardiogram Osteomyelitis of toe Other specified peripheral vascular diseases PAD (peripheral artery disease) Shortness of breath Skin ulcer of right foot including toes with fat layer exposed Venous stasis dermatitis of both lower extremities Wears glasses Home Medications celecoxib 200 mg capsule 200 mg PO DAILY ARTHRITIS/INFLAMMATION 10/18/18 [History Last Taken 02/28/23] loratadine 10 mg capsule 10 mg PO DAILY ALLERGIES 10/18/18 [History Last Taken 02/28/23] metformin 1,000 mg tablet 1,000 mg PO BID DIABETES 10/18/18 [History Last Taken 02/28/23] montelukast 10 mg tablet 10 mg PO QHS ASTHMA/ALLERGIES 10/18/18 [History Last Taken 02/28/23] omeprazole 40 mg capsule,delayed release 40 mg PO DAILY ACID REFLUX 10/18/18 [History Last Taken 02/28/23] calcium carbonate 500 mg-vitamin D3 10 mcg (400 unit) tablet 1 ea PO DAILY SUPPLEMENT 10/29/19 [History Last Taken 02/28/23] paroxetine HCl 40 mg tablet 40 mg PO DAILY DEPRESSION 10/29/19 [History Last Taken 02/28/23] potassium chloride 20 mEq tablet,extended release(part/cryst) 20 meq PO DAILY SUPPLEMENT 10/29/19 [History Last Taken 02/28/23] pregabalin 150 mg capsule 150 mg PO TID NERVE PAIN 10/29/19 [History Last Taken 02/28/23] aspirin 81 mg tablet,delayed release (Adult Low Dose Aspirin) 81 mg PO DAILY HEART HEALTH 07/21/20 [History Last Taken 02/28/23] cilostazol 100 mg tablet 100 mg PO DAILY CHOLESTEROL 07/21/20 [History Last Taken 02/28/23] levothyroxine 175 mcg tablet 175 mcg PO DAILY THYROID 07/21/20 [History Last Taken 02/28/23] metoprolol succinate 200 mg tablet,extended release 24 hr 200 mg PO DAILY BLOOD PRESSURE 07/21/20 [History Last Taken 02/28/23] albuterol sulfate 90 mcg/actuation aerosol inhaler (ProAir HFA) 1 inh [id number] PRN SHORTNESS OF BREATH 08/26/22 [History Last Taken 2 Days Ago ~02/27/23] ferrous sulfate 325 mg (65 mg iron) tablet (iron) 325 mg PO DAILY ANEMIA 08/26/22 [History Last Taken 02/28/23] rosuvastatin 40 mg tablet (Crestor) 40 mg PO DAILY CHOLESTEROL 08/26/22 [History Last Taken 02/28/23] pen needle, diabetic 32 gauge x 5/32" (BD Ultra-Fine Catalina Pen Needle) #100 ea 02/13/23 [Rx Last Taken Unknown] dapagliflozin propanediol 10 mg tablet (Farxiga) 10 mg PO DAILY DIABETES 03/01/23 [History Last Taken 02/28/23] glimepiride 4 mg tablet 4 mg PO BID DIABETES 03/01/23 [History Last Taken 02/28/23] insulin detemir U-100 100 unit/mL (3 mL) subcutaneous pen (Levemir FlexPen) 55 unit subcut DAILY DIABETES 03/01/23 [History Last Taken 02/28/23] ipratropium bromide 42 mcg (0.06 %) nasal spray 2 spray intranasal DAILY NASAL DRAINAGE 03/01/23 [History Last Taken 02/28/23] losartan 100 mg tablet 100 mg PO DAILY BLOOD PRESSURE 03/01/23 [History Last Taken 02/28/23] multivitamin 1 tab PO DAILY HEALTH MAINTENANCE 03/01/23 [History Last Taken 02/28/23] tirzepatide 2.5 mg/0.5 mL subcutaneous pen injector (Mounjaro) 2.5 mg subcut WE DIABETES 03/01/23 [History Last Taken 02/22/23] trazodone 100 mg tablet 200 mg PO QHS SLEEP 03/01/23 [History Last Taken 02/28/23] vitamin B complex 1 cap PO DAILY SUPPLEMENT 03/01/23 [History Last Taken 02/28/23] levofloxacin 500 mg tablet 500 mg PO DAILY antibiotic 03/07/23 [History Last Taken Unknown] Allergy/AdvReac Type Severity Reaction Status Date / Time piperacillin [From Zosyn] Allergy Severe Anaphylaxis Verified 03/01/23 10:39 tazobactam [From Zosyn] Allergy Severe Anaphylaxis Verified 03/01/23 10:39 sulfamethoxazole Allergy Unknown Anaphylaxis Verified 03/01/23 13:34 [From Bactrim] trimethoprim [From Bactrim] Allergy Unknown Anaphylaxis Verified 03/01/23 13:34 latex Allergy Rash Verified 03/01/23 09:27 tetanus and diphtheria Allergy Anaphylaxis Verified 03/01/23 09:27 toxoids [Tetanus&Diphtheria Toxoid] flea medicine Allergy Anaphylaxis, Uncoded 03/01/23 09:27 Diarrhea Family History Mother Diabetes Dementia Father Diabetes Myocardial infarction Surgical History H/O amputation of lesser toe (05/05/17) H/O arthroscopic knee surgery (11/2019) History of cholecystectomy History of nasal septoplasty History of thyroidectomy Hx of total knee arthroplasty Social History (Updated 03/07/23 @ 22:[address] Gulshan Early MD) household members: none Smoking Status: Never smoker alcohol intake: current alcohol intake frequency: holidays/special occasions only substance use type: does not use ROS Constitutional Constitutional: Denies body ache(s), chills, fatigue or fever(s) Eyes Eyes: Denies change in vision, diplopia or erythema ENT HEENT: Denies dysphagia, nasal congestion, nasal discharge or sore throat Cardiovascular Cardiovascular: Denies chest pain, claudication or palpitations Respiratory/Chest Respiratory/Chest: Denies cough, dyspnea or shortness of breath at rest Gastrointestinal Gastrointestinal: Denies constipation, diarrhea, nausea or vomiting Genitourinary Genitourinary: Denies dysuria, urinary frequency or urinary urgency Musculoskeletal Musculoskeletal: Denies joint pain, joint stiffness or joint swelling Integumentary Integumentary: Denies lesions, pruritus or rash Neurologic Neurologic: Denies dizziness, numbness or seizures Endocrine Endocrinology: Denies cold intolerance or heat intolerance Hematologic/Lymphatic Hematologic/Lymphatic: Denies easy bleeding or easy bruising Allergic/Immunologic Allergic/Immunologic: Denies wheezing Physical Exam Const alert, oriented x3 and no apparent distress HEENT normocephalic Eyes General Eye: normal appearance of both eyes Neck General: normal visual inspection Lymph Lymphatic: no lymphadenopathy noted and no lymphedema noted Resp normal respiratory effort Cardio regular rate and regular rhythm Extremity normal capillary refill, no calf tenderness and no pedal edema Extremity Narrative: DP and PT pulses palpable with adequate capillary fill time to the digits of theright foot. Dermatological: Right foot fifth digit amputation and fifth metatarsal head amputation noted. Distal wound is noted with proximal sutures intact. wound base is healthy and viable in appearance with goose pimple texture consistent with granular tissue. No purulent drainage, no malodor, no erythema, no palpable fluctuance/bogginess noted, no visible abscess formation, no lymphangitic streaking. Musculoskeletal: Muscle strength is 5 of 5 age-appropriate. No pain to palpation about the amputation stump or along suture line. Skin no rashes or lesions noted, skin turgor normal and no jaundice Neuro moves all extremities Neuro Narrative: Decreased sensation to the foot secondary to diabetic peripheral polyneuropathy Lab / Micro Data 03/08/23 05:16 03/09/23 05:21 Labs: Laboratory Results - last 24 hr 03/09/23 05:21: Free T4 1.29 03/10/23 06:18: POC Glucose 153 H 03/10/23 1917 <Electronically signed by Zack Smith DPM> Cosigner Signature (if applicable): CC: DPLambert Navarro; Dr. Gulshan Early MD~ Signed [facility] Work Phone: 1(695) 343-873406-30-2023 Progress note Author Christne Presley [facility] March 10, 2023 3:38pm Note Date/Time March 08, 2023 3:19 pm [facility] Medical Records Department [address] [place] [id number] Progress Note - Pharmacy 03/08/23 1516 MR#: [id number] Acct: [id number] Name: REMI BELTRAN Rep #:[id number] : 1965 57 From: Christen Presley PCP: Dr. Gulshan Early MD Status:ADM I N Location: [place] [address] 03/08/23 1618 <Electronically signed by Christen Presley> Christen Parker Signature (if applicable): 03/08/23 1641 < at 1538 Addendum Initial note did not file properly in the EMR. Please see note from 03/10/23.? 03/10/23 1538 <Electronically signed by Christen Presley> Date _ Christen Presley Signature (if applicable): Date Gulshan Early MD cc: ~* Signed [facility] Work Phone: 1(814) 416-894206-28-2023 History and physical note Author Gulshan Early [facility] March 07, 2023 10:42pm Note Date/Time March 07, 2023 10:3 3pm [facility] Medical Records Department [address] [place] [address] History & Physical Exam 03/07/234 MR#: [id number] Acct: [id number] Name: REMI BELTRAN Rep #:[id number] : 1965 57 From: Gulshan Early MD PCP: Dr. Gulshan Early MD Status:ADM I N Location: [place] [address] HPI - General General Date of Admission: 03/07/23 Date of Service: 03/07/23 Chief Complaint: Here for rehabilitation. HPI Narrative 03/01/2023 REMI BELTRAN, is a 57 Female who presents to [facility] Emergency Department with wound. Dr. Navarro recommend admission for diabetic foot infection. Right 5th toe wound. X-ray shows osteomyelitis. Zosyn given, anaphylaxis, resolved with Benadryl. Levaquin given instead. 03/01/2023 Admit to Hospital. 01/2023 wound culture MSSA, Enterobacter. Dr. Mixon recommended blood cultures x 2, MRI right lower extremity. Vancomycin, Cefepime, Flagyl for right foot osteomyelitis. Dr. Navarro consulted. 03/02/2023 MRI right foot showed osteomyelitis. HIMA doppler normal. 03/02/2023 Dr. Navarro amputated 5th toe, partial 5th metatarsal, right foot. 03/03/2023 Stable. 03/04/2023 Pain controlled. NWB right lower extremity. Wound culture with staph x 2, strep, gram negative rods, continue Vancomycin,Cefepime, Flagyl. 03/05/2023 PT/OT recommended SNF. Dr. Mixon wound GBS, PsA, Strep, continue Cefepime/Flagyl for now. Clearance culture positive, recommend 37 more days of Levaquin at discharge. 03/07/2023 Admit to TCU with debility, here for rehabilitation, strengthening, prior to discharge home alone. [facility] Medical History (Updated 03/07/23 @ 22:[address] Gulshan Early MD) Anxiety Arthritis Asthma Asthma Back pain Broken teeth Cardiology follow-up encounter Chronic steroid use CPAP (continuous positive airway pressure) dependence Depression Dermatitis Diabetes type 2, uncontrolled Dietary restriction Difficulty balancing when standing Edema Essential (primary) hypertension Fibromyalgia GERD (gastroesophageal reflux disease) Hammertoe of left foot History of pain when walking History of partial ray amputation of fifth toe of right foot History of stress test Hypergammaglobulinemia Hyperlipemia Hypertension Hypothyroidism Iron deficiency Leg cramping Morbid obesity with BMI of 40.0-44.9, adult Multinodular thyroid Non-smoker Normal echocardiogram Osteomyelitis of toe Other specified peripheral vascular diseases PAD (peripheral artery disease) Shortness of breath Skin ulcer of right foot including toes with fat layer exposed Venous stasis dermatitis of both lower extremities Wears glasses Home Medications celecoxib 200 mg capsule 200 mg PO DAILY ARTHRITIS/INFLAMMATION 10/18/18 [History Last Taken 02/28/23] loratadine 10 mg capsule 10 mg PO DAILY ALLERGIES 10/18/18 [History Last Taken 02/28/23] metformin 1,000 mg tablet 1,000 mg PO BID DIABETES 10/18/18 [History Last Taken 02/28/23] montelukast 10 mg tablet 10 mg PO QHS ASTHMA/ALLERGIES 10/18/18 [History Last Taken 02/28/23] omeprazole 40 mg capsule,delayed release 40 mg PO DAILY ACID REFLUX 10/18/18 [History Last Taken 02/28/23] calcium carbonate 500 mg-vitamin D3 10 mcg (400 unit) tablet 1 ea PO DAILY SUPPLEMENT 10/29/19 [History Last Taken 02/28/23] paroxetine HCl 40 mg tablet 40 mg PO DAILY DEPRESSION 10/29/19 [History Last Taken 02/28/23] potassium chloride 20 mEq tablet,extended release(part/cryst) 20 meq PO DAILY SUPPLEMENT 10/29/19 [History Last Taken 02/28/23] pregabalin 150 mg capsule 150 mg PO TID NERVE PAIN 10/29/19 [History Last Taken 02/28/23] aspirin 81 mg tablet,delayed release (Adult Low Dose Aspirin) 81 mg PO DAILY HEART HEALTH 07/21/20 [History Last Taken 02/28/23] cilostazol 100 mg tablet 100 mg PO DAILY CHOLESTEROL 07/21/20 [History Last Taken 02/28/23] levothyroxine 175 mcg tablet 175 mcg PO DAILY THYROID 07/21/20 [History Last Taken 02/28/23] metoprolol succinate 200 mg tablet,extended release 24 hr 200 mg PO DAILY BLOOD PRESSURE 07/21/20 [History Last Taken 02/28/23] albuterol sulfate 90 mcg/actuation aerosol inhaler (ProAir HFA) 1 inh [id number] PRN SHORTNESS OF BREATH 08/26/22 [History Last Taken 2 Days Ago ~02/27/23] ferrous sulfate 325 mg (65 mg iron) tablet (iron) 325 mg PO DAILY ANEMIA 08/26/22 [History Last Taken 02/28/23] rosuvastatin 40 mg tablet (Crestor) 40 mg PO DAILY CHOLESTEROL 08/26/22 [History Last Taken 02/28/23] pen needle, diabetic 32 gauge x 5/32" (BD Ultra-Fine Catalina Pen Needle) #100 ea 02/13/23 [Rx Last Taken Unknown] dapagliflozin propanediol 10 mg tablet (Farxiga) 10 mg PO DAILY DIABETES 03/01/23 [History Last Taken 02/28/23] glimepiride 4 mg tablet 4 mg PO BID DIABETES 03/01/23 [History Last Taken 02/28/23] insulin detemir U-100 100 unit/mL (3 mL) subcutaneous pen (Levemir FlexPen) 55 unit subcut DAILY DIABETES 03/01/23 [History Last Taken 02/28/23] ipratropium bromide 42 mcg (0.06 %) nasal spray 2 spray intranasal DAILY NASAL DRAINAGE 03/01/23 [History Last Taken 02/28/23] losartan 100 mg tablet 100 mg PO DAILY BLOOD PRESSURE 03/01/23 [History Last Taken 02/28/23] multivitamin 1 tab PO DAILY HEALTH MAINTENANCE 03/01/23 [History Last Taken 02/28/23] tirzepatide 2.5 mg/0.5 mL subcutaneous pen injector (Mounjaro) 2.5 mg subcut WE DIABETES 03/01/23 [History Last Taken 02/22/23] trazodone 100 mg tablet 200 mg PO QHS SLEEP 03/01/23 [History Last Taken 02/28/23] vitamin B complex 1 cap PO DAILY SUPPLEMENT 03/01/23 [History Last Taken 02/28/23] levofloxacin 500 mg tablet 500 mg PO DAILY antibiotic 03/07/23 [History Last Taken Unknown] Allergy/AdvReac Type Severity Reaction Status Date / Time piperacillin [From Zosyn] Allergy Severe Anaphylaxis Verified 03/01/23 10:39 tazobactam [From Zosyn] Allergy Severe Anaphylaxis Verified 03/01/23 10:39 sulfamethoxazole Allergy Unknown Anaphylaxis Verified 03/01/23 13:34 [From Bactrim] trimethoprim [From Bactrim] Allergy Unknown Anaphylaxis Verified 03/01/23 13:34 latex Allergy Rash Verified 03/01/23 09:27 tetanus and diphtheria Allergy Anaphylaxis Verified 03/01/23 09:27 toxoids [Tetanus&Diphtheria Toxoid] flea medicine Allergy Anaphylaxis, Uncoded 03/01/23 09:27 Diarrhea Family History Mother Diabetes Dementia Father Diabetes Myocardial infarction Surgical History H/O amputation of lesser toe (05/05/17) H/O arthroscopic knee surgery (11/2019) History of cholecystectomy History of nasal septoplasty History of thyroidectomy Hx of total knee arthroplasty Social History (Updated 03/07/23 @ 22:[address] Gulshan Early MD) household members: none Smoking Status: Never smoker alcohol intake: current alcohol intake frequency: holidays/special occasions only substance use type: does not use ROS Constitutional Constitutional: Denies chills, fever(s) or weight gain ENT HEENT: Denies headache(s), nasal congestion or nasal discharge Cardiovascular Cardiovascular: Denies chest pain or palpitations Respiratory/Chest Respiratory/Chest: Denies cough, excessive phlegm production or shortness of breath with exertion Gastrointestinal Gastrointestinal: Denies abdominal pain, nausea or vomiting Genitourinary Genitourinary: Denies dysuria Musculoskeletal Musculoskeletal: Denies joint pain or joint swelling Integumentary Integumentary: Denies rash or wounds Neurologic Neurologic: Denies focal weakness, numbness or tingling Psychiatric Psychiatric: Denies anxiety, auditory hallucinations, depression, homicidal ideation or suicidal ideation Vital Signs Vital Signs Vital Signs: 03/07/23 13:17 03/07/23 13:17 Temperature 96.6 F L Temperature Source Temporal Pulse Rate 68 Pulse Rhythm Regular Pulse Strength Normal (2+) Respiratory Rate 16 Respiratory Effort Normal Non-Labored Respiratory Depth Normal Respiratory Pattern Normal Blood Pressure 145/69 H Blood Pressure Mean 94 Blood Pressure Source Monitor Blood Pressure Position Semi-Fowlers Blood Pressure Location Right Arm Pulse Ox 95 Oxygen Delivery Method Room Air Room Air Weight Weight: 109.679 kg Body Mass Index (BMI) 36.7 Physical Exam Const alert General Appearance: cooperative HEENT normocephalic Eyes PERRL and EOMs intact bilaterally Neck supple, no JVD and no carotid bruits Resp normal respiratory effort, normal air movement and clear to auscultation bilaterally Cardio regular rate and regular rhythm GI normal to inspection, nondistended, normoactive bowel sounds, non-tender and non-distended Extremity normal capillary refill Extremity Narrative: Right foot dressed, wound VAC present. General Extremity: Negative for edema Skin no rashes or lesions noted General Skin Exam: no breakdown Psych affect normal Appearance: appropriate Results Lab / Micro Data Labs: Laboratory Results - last 24 hr 03/07/23 16:16: POC Glucose 174 H 03/07/23 21:39: POC Glucose 176 H Assessment & Plan Assessment/Plan (1) Debility: (2) Type 2 diabetes mellitus with foot ulcer: (3) Foot osteomyelitis, right: (4) Diabetes mellitus: (5) GERD (gastroesophageal reflux disease): (6) Depression: (7) Hypokalemia: (8) Diabetic polyneuropathy: (9) Hypothyroidism: (10) Hyperlipidemia: (11) Insomnia: PLAN: Plan 57 year old female with below past medical history hospitalized for osteomyelitis right foot, underwent right 5th toe amputation, partial 5th metatarsal amputation 03/02/[address] Navarro, admitted to TCU with debility, here for rehabilitation, strengthening, prior to discharge home alone. * Debility - PT/OT. * Pain - Tylenol 1000mg q8h, Tramadol 50mg q6h prn pain (1-5), Oxycodone 5mg q4h prn pain (6-10). * Bowel - senna/colace 1 tablet bid, Magnesium citrate 300ml po x 1 prn. * Adult immunization - Administer pneumonia vaccine, covid19 vaccine, flu vaccine as appropriate. * DVT prophylaxis - Hold, monitor. * CV prophylaxis - Aspirin 81mg daily. * Hyperlipidemia - Atorvastatin 80mg qhs. * Diabetes Mellitus II - Metformin 1000mg bidcm, Glimepiride 4mg bid, Jardiance 25mg daily, Glargine 55 units daily, Mounjaro 2.5mg qweek. * Osteomyelitis right foot status post amputation - Levaquin 500mg daily thru 04/14/2023, Consult Dr. Navarro. * Hypothyroidism - Levothyroxine 175mcg daily. * Hypertension - Metoprolol succinate 200mg daily, Losartan 100mg daily. * Tinea Corporis - Nystatin topical bid. * GERD - Pantoprazole 40mg daily. * Depression - Paroxetine 40mg daily, stable chronic oil heaterman use, GDR not recommended. * Hypokalemia - KCL 20meq daily. * Diabetic polyneuropathy - Lyrica 150mg tid. * Insomnia - Trazodone 200mg qhs, stable chronic alf use, GDR not recommended. 03/07/232241 <Electronically signed by Gulshan Early MD> Cosigner Signature (if applicable): CC: Dr. Gulshan Early MD~ Signed [facility] Work Phone: [phone]) 775-176706-27-2023 Progress note Author Zack mSith [facility] March 07, 2023 10:48am Note Date/Time March 07, 2023 10:4 6am [facility] Medical Records Department [address] [place] [address] Progress Note 03/07/23 1040 MR#: [id number] Acct: [id number] Name: REMI BELTRAN Rep #:[id number] : 1965 57 From: Zack chakraborty DPM PCP: Dr. Gulshan Early MD Status:ADM I N Location: [place]3 [id number] Subjective Subjective Patient seen resting in chair bedside this AM with feet elevated. Wound VAC in place to the right foot amputation site. Patient states she is doing well and is ready to go to the TCU later today. Objective Data Objective Data Vital Signs: Vital Signs Temp Pulse Resp BP Pulse Ox O2 Del Method O2 Flow Rate 97.7 F L 65 16 125/72 H 95 Room Air 6 03/07/23 08:39 03/07/23 10:09 03/07/23 08:39 03/07/23 10:09 03/07/23 08:39 03/07/23 08:46 03/02/23 14:20 Oxygen Flow Rate (L/min) 6 Oxygen Delivery Method Room Air Weight: 110.8 kg Body Mass Index (BMI) 37.1 Intake & Output: Intake and Output for Last 24 Hours 03/05/23 03/06/23 03/07/23 23:59 23:59 23:59 Intake Total 4236.75 / 4236.75 1750 / 1750 600 / 600 Output Total 4775 / 4775 2750 / 2750 600 / 600 Balance -538.25 / -538.25 -1000 / -1000 0 / 0 Lab / Micro Data Result Diagrams: 03/07/23 05:25 03/07/23 05:25 Labs: Laboratory Results - last 24 hr 03/06/23 11:21: POC Glucose 184 H 03/06/23 16:44: POC Glucose 170 H 03/06/23 21:04: POC Glucose 178 H 03/07/23 05:25: WBC 5.5, RBC 3.76 L, Hgb 10.4 L, Hct 33.0 L, MCV 87.8, MCH 27.7,MCHC 31.5 L, RDW Std Deviation 44.8 H, RDW Coeff of Kami 14.2, Plt Count 360, MPV8.6, Immature Gran % (Auto) 0.500, Neut % (Auto) 56.4, Lymph % (Auto) 31.1, Evangeline% (Auto) 8.6, Eos % (Auto) 2.9, Baso % (Auto) 0.5, Absolute Neuts (auto) 3.1, Absolute Lymphs (auto) 1.70, Nucleated RBC % 0 03/07/23 05:25: Sodium 140, Potassium 3.4 L, Chloride 104, Carbon Dioxide 31.0, Anion Gap 5, BUN 24 H, Creatinine 0.53 L, Estim Creat Clear Calc 116.71, Est GFR(MDRD) Af Amer 153, Est GFR (MDRD) Non-Af 126, BUN/Creatinine Ratio 45.5 H, Glucose 163 H, Calcium 8.6 03/07/23 05:59: POC Glucose 156 H Micro: Microbiology 03/01/23 12:45 Wound - Right Foot Gram Stain - Final 03/01/23 12:45 Wound - Right Foot Wound Culture - Final Staphylococcus aureus Streptococcus agalactiae (B) Proteus penneri 03/01/23 12:45 Wound - Right Foot Anaerobic Culture - Preliminary Anaerobic cocci Anaerobic cocci#2 03/02/23 14:10 Bone - 5th Toe Gram Stain - Final 03/02/23 14:10 Bone - 5th Toe Wound Culture - Final Streptococcus agalactiae (B) Pseudomonas aeruginosa 03/02/23 14:10 Bone - 5th Toe Anaerobic Culture - Preliminary Gram negative elizabeth Anaerobic cocci 03/02/23 14:06 Bone - 5th Toe Gram Stain - Final 03/02/23 14:06 Bone - 5th Toe Wound Culture - Final Strep anginosus Streptococcus agalactiae (B) Pseudomonas aeruginosa 03/02/23 14:06 Bone - 5th Toe Anaerobic Culture - Final Anaerobic cocci 03/01/23 15:15 Blood Culture (Wb) - Anticubital Left Blood Culture - Final No growth in 5 days. 03/01/23 14:40 Blood Culture (Wb) - Anticubital Left Blood Culture - Final No growth in 5 days. Physical Exam Narrative Left foot s/p left 5th toe and 5th met head amputation - wound is health and viable, bleeding controlled, erythema to foot with further improvement and is resolved at this time, no maloder, no fluctuance, no crepitus present - CFT < 2 seconds to remaining toes, no evidence of complication at this time. Const alert, oriented x3 and no apparent distress HEENT normocephalic Eyes General Eye: normal appearance of both eyes Neck General: normal visual inspection Lymph Lymphatic: no lymphadenopathy noted and no lymphedema noted Resp normal respiratory effort Cardio regular rate and regular rhythm Extremity normal capillary refill, no joint enlargement, no calf tenderness and no pedal edema Skin skin turgor normal and no jaundice Neuro moves all extremities Assessment & Plan Assessment/Plan (1) Cellulitis of right lower limb: (2) Diabetic foot ulcer: (3) Osteomyelitis: (4) Neuropathy: (5) Type 2 diabetes mellitus with foot ulcer: PLAN: Plan Patient seen and evaluated s/p left foot 5th toe and 5th metatarsal head amputation on 03/02/23, POD #5- site continues to heal and improve. Patient on IV antibiotic therapy per Infectious Disease - surgical culture results demonstrate strep agalactiae and PsA. Wound care: Wound VAC in place to amputation stump, changed (M, W, F) She is to remain non-weightbearing right foot. LEAS for further evaluation of arterial flow - reviewed results, some PVD noted - vascular surgery consulted. Hospital medicine following patient as well. Podiatry will continue to follow patient. 03/07/23 1048 <Electronically signed by Zack Smith DPM> Zack Jc Cosigner Signature (if applicable): CC: ~ Signed [facility] Work Phone: 1(134) 559-983806-27-[address] Tyler [facility] March 07, 2023 10:45am Note Date/Time March 07, 2023 10:4 3am [facility] Medical Records Department [address] [place] [address] Transfer to [facility] MR#: [id number] Acct: [id number] Name: REMI BELTRAN Rep #:[id number] : 1965 57 From: Macario calloway MD PCP: Dr. Gulshan Early MD Status:ADM I N Certification of patient admission REQUIRED AT TIME OF ADMISSION. I CERTIFY THAT POST-HOSPITAL ECF SERVICES ARE REQUIRED TO BE GIVEN ON AN IN-PATIENT BASIS BECAUSE OF THE ABOVE NAMED PATIENT'S NEED FOR SNF CARE ON A CONTINUING BASIS FOR THE CONDITION(S) FOR WHICH HE/SHE WAS RECEIVING IN-PATIENT HOSPITAL SERVICES PRIOR TO HIS/HER TRANSFER TO THE F. 03/07/23 1045<Electronically signed by Macario Tyler MD> Diet Diet Order/Speech Therapy: 03/02/23 14:10 Diet: Consistent Carb - Calorie Controlled Is pt able to select menu?: Yes How many daily calories?: 1800 calorie Routine Orders/Code Status Routine Lab Work: CBC and BMP Code Status: Full Code Wound(s) right outer edge of foot: Wound Type: Neuropathic/Diabetic Foot Ulcer right lateral foot: Wound Type: open surgical wound/incision Dressing Change: wound VAC to the open wound/dry dressing to incision Therapies Weight Bearing: Non weight bearing Physical Therapy: Eval and Treat Occupational Therapy: Eval and Treat Problem/Diagnosis (1) Type 2 diabetes mellitus with foot ulcer: Status: Acute Code(s): E11.621 - Type 2 diabetes mellitus with foot ulcer; L97.509 - Non-pressure chronic ulcer of other part of unspecified foot with unspecified severity (2) Cellulitis of right lower limb: Status: Acute Code(s): L03.115 - Cellulitis of right lower limb (3) Osteomyelitis: Status: Acute Code(s): M86.9 - Osteomyelitis, unspecified Plan 1. Type 2 diabetes with diabetic foot ulcer and osteomyelitis of her right fifth metatarsal and neuropathy ? She did have what appeared to be an anaphylactic reaction to Zosyn ? We will consult infectious disease for antibiotic recommendations, cultures with MSSA and Proteus as well as strep agalactiae ? MRI with osteomyelitis, status post operative intervention 03/02/2023 ? We will continue with insulin long-acting and sliding scale and make adjustments as necessary ? Accu-Cheks ACHS ? We will hold her home diabetic medications ? Continue with Lyrica ? PT/OT will likely need placement 2. HTN/HLD/peripheral artery disease ? Blood pressure are stable ? Can resume her home blood pressure medications ? We will hold aspirin secondary to possible surgical intervention ? Continue cilostazol, ABIs here show calcification, will follow-up with vascular surgery as an outpatient ? Continue with statin 3. Hypothyroidism ? Stable ? Continue with Synthroid 4. GERD ? Stable ? Continue with PPI 5. Anxiety/depression ? Stable ? Continue with her home medications DVT: Lovenox Allergies/Procedures Done in Hospital Allergies piperacillin [From Zosyn] Allergy (Severe, Verified 03/01/23 10:39) Anaphylaxis tazobactam [From Zosyn] Allergy (Severe, Verified 03/01/23 10:39) Anaphylaxis sulfamethoxazole [From Bactrim] Allergy (Unknown, Verified 03/01/23 13:34) Anaphylaxis trimethoprim [From Bactrim] Allergy (Unknown, Verified 03/01/23 13:34) Anaphylaxis latex Allergy (Verified 03/01/23 09:27) Rash tetanus and diphtheria toxoids [Tetanus&Diphtheria Toxoid] Allergy (Verified 03/01/23 09:27) Anaphylaxis flea medicine Allergy (Uncoded 03/01/23 09:27) Anaphylaxis, Diarrhea Procedures: - (ABIs, status post amputation of fifth metatarsal and toe on the right foot) Type of Care/Length of Stay Estimated LOS: Convalescent Care Less Than 30 days Type of Care Needed: Skilled Rehab Potential: Good Prognosis: Good Additional Orders/Day of Discharge Day of Discharge: 03/07/23 Dietary and Speech Recommendations Dietitian Recommendations/Changes: Will continue 1800 jordan Consistent CHO diet Will order Drew bid to help w/ wound healing. Discharge Plan Admission Admit Date/Time: 03/01/23 11:11 Attending Provider: Macario Tyler Primary Care Provider: Gulshan Early Chi Consulting Providers: Tereso Navarro ; Victorino Mixon ; Pérez Araya Discharge Orders/Prescriptions Prescriptions: New levofloxacin 500 mg tablet 500 mg PO DAILY Qty: 37 0RF Continued celecoxib 200 mg capsule 200 mg PO DAILY montelukast 10 mg tablet 10 mg PO QHS metformin 1,000 mg tablet 1,000 mg PO BID omeprazole 40 mg capsule,delayed release(DR/EC) 40 mg PO DAILY loratadine 10 mg capsule 10 mg PO DAILY cilostazol 100 mg tablet 100 mg PO DAILY levothyroxine 175 mcg tablet 175 mcg PO DAILY aspirin [Adult Low Dose Aspirin] 81 mg tablet,delayed release (DR/EC) 81 mg PO DAILY metoprolol succinate 200 mg tablet extended release 24 hr 200 mg PO DAILY (DME) pen needle, diabetic [BD Ultra-Fine Catalina Pen Needle] 32 gauge x 5/32" needle See Rx Instructions .Route Qty: 100 3RF Rx Instructions: daily potassium chloride 20 MEQ tablet 20 meq PO DAILY paroxetine HCl 40 MG tablet 40 mg PO DAILY pregabalin 150 MG capsule 150 mg PO TID calcium carbonate-vitamin D3 1 EACH tablet 1 ea PO DAILY ferrous sulfate [iron] 325 mg (65 mg iron) Tablet 325 mg PO DAILY albuterol sulfate [ProAir HFA] 90 mcg/actuation Hfa Aerosol Inhaler 1 inh INHALATION Q6H PRN (Reason: SHORTNESS OF BREATH ) rosuvastatin [Crestor] 40 mg Tablet 40 mg PO DAILY multivitamin Tablet 1 tab PO DAILY trazodone 100 mg tablet 200 mg PO QHS glimepiride 4 mg tablet 4 mg PO BID ipratropium bromide 42 mcg (0.06 %) spray,non-aerosol 2 spray INTRANASAL DAILY losartan 100 mg tablet 100 mg PO DAILY vitamin B complex Capsule 1 cap PO DAILY Farxiga 10 mg tablet 10 mg PO DAILY Levemir FlexPen 100 unit/mL (3 mL) insulin pen 55 unit subcut DAILY Mounjaro 2.5 mg/0.5 mL pen injector 2.5 mg subcut WE Referrals / Follow Up: Gulshan Early Chi, MD [Primary Care Provider] - Disposition Disposition (needs filled in before D/C Order can be placed): [facility] 03/07/23 1045 <Electronically signed by Macario Tyler MD> Cosigner Signature (if applicable): CC: DPM Dr. Tereso Navarro; Dr. Pérez Araya MD; Dr. Victorino Mixon MD; Dr. Gulshan aErly MD ~ [facility] Work Phone: [phone]) 706-354606-27-[address] Tyler [facility] March 07, 2023 8:59am Note Date/Time March 07, 2023 8:59 am [facility] Medical Records Department [address] [place] [address] Progress Note - Hospitalist 03/07/23 0856 MR#: [id number] Acct: [id number] Name: REMI BELTRAN Rep #:[id number] : 1965 57 From: Macario calloway MD PCP: Dr. Gulshan Early MD Status:ADM I N Location: [place] [address] Subjective Subjective Doing well, no issues overnight Objective Data Objective Data Vital Signs: Vital Signs Temp Pulse Resp BP Pulse Ox O2 Del Method O2 Flow Rate 97.7 F L 65 16 125/72 H 95 Room Air 6 03/07/23 08:39 03/07/23 08:39 03/07/23 08:39 03/07/23 08:39 03/07/23 08:39 03/07/23 08:46 03/02/23 14:20 Oxygen Flow Rate (L/min) 6 Oxygen Delivery Method Room Air Weight: 244 lb 4.355 oz Body Mass Index (BMI) 37.1 Intake & Output: Intake and Output for Last 24 Hours 03/06/23 03/07/23 03/08/23 03:59 03:59 03:59 Intake Total 4036.75 / 4036.75 1475 / 1475 600 / 600 Output Total 3850 / 3850 3050 / 3050 300 / 300 Balance 186.75 / 186.75 -1575 / -1575 300 / 300 Lab / Micro Data Result Diagrams: 03/07/23 05:25 03/07/23 05:25 Labs: Laboratory Results - last 24 hr 03/06/23 11:21: POC Glucose 184 H 03/06/23 16:44: POC Glucose 170 H 03/06/23 21:04: POC Glucose 178 H 03/07/23 05:25: WBC 5.5, RBC 3.76 L, Hgb 10.4 L, Hct 33.0 L, MCV 87.8, MCH 27.7,MCHC 31.5 L, RDW Std Deviation 44.8 H, RDW Coeff of Kami 14.2, Plt Count 360, MPV8.6, Immature Gran % (Auto) 0.500, Neut % (Auto) 56.4, Lymph % (Auto) 31.1, Evangeline% (Auto) 8.6, Eos % (Auto) 2.9, Baso % (Auto) 0.5, Absolute Neuts (auto) 3.1, Absolute Lymphs (auto) 1.70, Nucleated RBC % 0 03/07/23 05:25: Sodium 140, Potassium 3.4 L, Chloride 104, Carbon Dioxide 31.0, Anion Gap 5, BUN 24 H, Creatinine 0.53 L, Estim Creat Clear Calc 116.71, Est GFR(MDRD) Af Amer 153, Est GFR (MDRD) Non-Af 126, BUN/Creatinine Ratio 45.5 H, Glucose 163 H, Calcium 8.6 03/07/23 05:59: POC Glucose 156 H Micro: Microbiology 03/01/23 15:15 Blood Culture (Wb) - Anticubital Left Blood Culture - Final No growth in 5 days. 03/01/23 14:40 Blood Culture (Wb) - Anticubital Left Blood Culture - Final No growth in 5 days. 03/02/23 14:06 Bone - 5th Toe Gram Stain - Final 03/02/23 14:06 Bone - 5th Toe Wound Culture - Final Strep anginosus Streptococcus agalactiae (B) Pseudomonas aeruginosa 03/02/23 14:06 Bone - 5th Toe Anaerobic Culture - Preliminary Checking for anaerobes, further studies to follow. 03/02/23 14:10 Bone - 5th Toe Gram Stain - Final 03/02/23 14:10 Bone - 5th Toe Wound Culture - Final Streptococcus agalactiae (B) Pseudomonas aeruginosa 03/02/23 14:10 Bone - 5th Toe Anaerobic Culture - Preliminary Checking for anaerobes, further studies to follow. 03/01/23 12:45 Wound - Right Foot Gram Stain - Final 03/01/23 12:45 Wound - Right Foot Wound Culture - Final Staphylococcus aureus Streptococcus agalactiae (B) Proteus penneri 03/01/23 12:45 Wound - Right Foot Anaerobic Culture - Preliminary Checking for anaerobes, further studies to follow. Physical Exam Narrative General: Alert, Oriented x3, Cooperative, No apparent distress HEENT: Atraumatic, PERRLA, EOMI, Normocephalic Oral: Moist Mucosa Neck: Supple, No JVD Lungs: Diminished, Normal air movement, No rhonchi, No wheeze, No rales Cardiovascular: Regular rate, Regular Rhythm, Normal S1, Normal S2, No murmurs Abdomen: Soft, Non Tender, Non-Distended, No Hepato-splenomegaly Extremities: No edema, Capillary Refill Less than 3 Seconds Skin: Right lower extremity wound dressed with wound VAC in place Musculoskeletal: No Tenderness to Palpation of Joints or Extremities Neurological: Cranial nerves II-XII grossly intact, Motor Exam 5/5 strength throughout, Sensory exam intact to light touch and pain Psych/Mental Status: Normal Affect, Appropriate Assessment & Plan Assessment/Plan (1) Type 2 diabetes mellitus with foot ulcer: (2) Cellulitis of right lower limb: (3) Osteomyelitis: PLAN: Plan 1. Type 2 diabetes with diabetic foot ulcer and osteomyelitis of her right fifth metatarsal and neuropathy ? She did have what appeared to be an anaphylactic reaction to Zosyn ? We will consult infectious disease for antibiotic recommendations, cultures with MSSA and Proteus as well as strep agalactiae ? MRI with osteomyelitis, status post operative intervention 03/02/2023 ? We will continue with insulin long-acting and sliding scale and make adjustments as necessary ? Accu-Cheks ACHS ? We will hold her home diabetic medications ? Continue with Lyrica ? PT/OT will likely need placement 2. HTN/HLD/peripheral artery disease ? Blood pressure are stable ? Can resume her home blood pressure medications ? We will hold aspirin secondary to possible surgical intervention ? Continue cilostazol, ABIs here show calcification, will follow-up with vascular surgery as an outpatient ? Continue with statin 3. Hypothyroidism ? Stable ? Continue with Synthroid 4. GERD ? Stable ? Continue with PPI 5. Anxiety/depression ? Stable ? Continue with her home medications DVT: Lovenox Charges/Coding Visit Charges Inpatient E&M: 31639 Subs Hosp L2 03/07/23 0859 <Electronically signed by Macario Tyler MD> Cosigner Signature (if applicable): CC: ~ Signed [facility] Work Phone: 1(304) 163-809306-26-[address] Mixon [facility] March 06, 2023 2:00pm Note Date/Time March 06, 2023 2:00 pm [facility] Medical Records Department [address] [place] [address] Progress Note - Infect Disease 03/06/23 1358 MR#: [id number] Acct: [id number] Name: REMI BELTRAN Rep #:[id number] : 1965 57 From: Victorino waters MD PCP: Dr. Gulshan Early MD Status:ADM I N Location: OR3 RV980-7 Physical Exam Narrative Feeling better, no fever, no n/v/d. Const alert and no apparent distress General Appearance: cooperative Resp normal air movement and clear to auscultation bilaterally Cardio regular rate and regular rhythm GI soft to palpation, non-tender and non-distended Skin Skin Narrative: foot wrapped ID ID: Route of nutrition/ use of supplements: [] Nutritional Intake: [] IV Site: [] Song Catheter: [] Assessment & Plan Assessment/Plan (1) Diabetic foot ulcer: (2) Osteomyelitis: PLAN: R foot osteo seen on MRI. Dr. Navarro consulted. Wound cx with GBS, PsA, strep. Wound cx from 01/2023 with mssa and enterobacter. OR 03/02/[address] Navarro for 5th toe amp and partial 5th ray resection. Had reaction with zosyn in ED. Cont with cefepime/flagyl for now. Clearance cx (+). Will plan on 37 more days po levaquin at discharge, QTC here 453, counseled re: risk of diarrhea, peripheral neuropathy, tendonopathy. ID followup in 2 weeks. Will follow, d/w Dr. Tyler 03/06/23 1400 <Electronically signed by Victorino Mixon MD> Cosigner Signature (if applicable): CC: ~ Signed [facility] Work Phone: 1([phone]) 375-699506-26-[address] Tyler [facility] March 06, 2023 10:26am Note Date/Time March 06, 2023 10:2 6am [facility] Medical Records Department [address] [place] [address] Progress Note - Hospitalist 03/06/23 1018 MR#: [id number] Acct: [id number] Name: REMI BELTRAN Rep #:[id number] : 1965 57 From: Macario calloway MD PCP: Dr. Gulshan Early MD Status:ADM I N Location: [place] [address] Subjective Subjective Doing well, no issues overnight Objective Data Objective Data Vital Signs: Vital Signs Temp Pulse Resp BP Pulse Ox O2 Del Method O2 Flow Rate 98.3 F 73 18 119/67 95 Room Air 6 03/06/23 08:31 03/06/23 10:05 03/06/23 08:31 03/06/23 10:05 03/06/23 08:31 03/06/23 09:30 03/02/23 14:20 Oxygen Flow Rate (L/min) 6 Oxygen Delivery Method Room Air Weight: 244 lb 4.355 oz Body Mass Index (BMI) 37.1 Intake & Output: Intake and Output for Last 24 Hours 03/05/23 03/06/23 03/07/23 03:59 03:59 03:59 Intake Total 1750 / 1750 4036.75 / 4036.75 100 / 100 Output Total 4425 / 4425 3850 / 3850 600 / 600 Balance -2675 / -2675 186.75 / 186.75 -500 / -500 Lab / Micro Data Result Diagrams: 03/05/23 05:54 03/05/23 05:54 Labs: Laboratory Results - last 24 hr 03/05/23 11:04: POC Glucose 169 H 03/05/23 16:06: POC Glucose 142 H 03/05/23 21:06: POC Glucose 160 H 03/06/23 06:28: POC Glucose 125 H Micro: Microbiology 03/02/23 14:06 Bone - 5th Toe Gram Stain - Final 03/02/23 14:06 Bone - 5th Toe Wound Culture - Final Strep anginosus Streptococcus agalactiae (B) Pseudomonas aeruginosa 03/02/23 14:06 Bone - 5th Toe Anaerobic Culture - Preliminary Checking for anaerobes, further studies to follow. 03/02/23 14:10 Bone - 5th Toe Gram Stain - Final 03/02/23 14:10 Bone - 5th Toe Wound Culture - Final Streptococcus agalactiae (B) Pseudomonas aeruginosa 03/02/23 14:10 Bone - 5th Toe Anaerobic Culture - Preliminary Checking for anaerobes, further studies to follow. 03/01/23 12:45 Wound - Right Foot Gram Stain - Final 03/01/23 12:45 Wound - Right Foot Wound Culture - Final Staphylococcus aureus Streptococcus agalactiae (B) Proteus penneri 03/01/23 12:45 Wound - Right Foot Anaerobic Culture - Preliminary Checking for anaerobes, further studies to follow. 03/01/23 15:15 Blood Culture (Wb) - Anticubital Left Blood Culture - Preliminary No growth in 48 hours. 03/01/23 14:40 Blood Culture (Wb) - Anticubital Left Blood Culture - Preliminary No growth in 48 hours. Physical Exam Narrative General: Alert, Oriented x3, Cooperative, No apparent distress HEENT: Atraumatic, PERRLA, EOMI, Normocephalic Oral: Moist Mucosa Neck: Supple, No JVD Lungs: Diminished, Normal air movement, No rhonchi, No wheeze, No rales Cardiovascular: Regular rate, Regular Rhythm, Normal S1, Normal S2, No murmurs Abdomen: Soft, Non Tender, Non-Distended, No Hepato-splenomegaly Extremities: No edema, Capillary Refill Less than 3 Seconds Skin: Right lower extremity wound dressed Musculoskeletal: No Tenderness to Palpation of Joints or Extremities Neurological: Cranial nerves II-XII grossly intact, Motor Exam 5/5 strength throughout, Sensory exam intact to light touch and pain Psych/Mental Status: Normal Affect, Appropriate Assessment & Plan Assessment/Plan (1) Type 2 diabetes mellitus with foot ulcer: (2) Cellulitis of right lower limb: (3) Osteomyelitis: PLAN: Plan 1. Type 2 diabetes with diabetic foot ulcer and osteomyelitis of her right fifth metatarsal and neuropathy ? She did have what appeared to be an anaphylactic reaction to Zosyn ? We will consult infectious disease for antibiotic recommendations, cultures with MSSA and Proteus as well as strep agalactiae ? MRI with osteomyelitis, status post operative intervention 03/02/2023 ? We will continue with insulin long-acting and sliding scale and make adjustments as necessary ? Accu-Cheks ACHS ? We will hold her home diabetic medications ? Continue with Lyrica ? PT/OT will likely need placement 2. HTN/HLD/peripheral artery disease ? Blood pressure are stable ? Can resume her home blood pressure medications ? We will hold aspirin secondary to possible surgical intervention ? Continue cilostazol, ABIs here show calcification, will follow-up with vascular surgery as an outpatient ? Continue with statin 3. Hypothyroidism ? Stable ? Continue with Synthroid 4. GERD ? Stable ? Continue with PPI 5. Anxiety/depression ? Stable ? Continue with her home medications DVT: Lovenox Charges/Coding Visit Charges Inpatient E&M: 55151 Subs Hosp L2 03/06/23 1026 <Electronically signed by Macario Tyler MD> Cosigner Signature (if applicable): CC: ~ Signed [facility] Work Phone: 1(753) 221-255906-26-[address] Navarro [facility] March 06, 2023 7:25am Note Date/Time March 06, 2023 7:06 am [facility] Medical Records Department [address] [place] [address] Progress Note 03/06/23 0706 MR#: [id number] Acct: [id number] Name: REMI BELTRAN Rep #:[id number] : 1965 57 From: Tereso Navarro DPM PCP: Dr. Gulshan Early MD Status:ADM I N Location: OR3 WW413-2 Subjective Subjective Patient was seen this morning for follow up on right foot. She is resting comfortably in bed, no complaints. No f/c/n/v. Objective Data Objective Data Vital Signs: Vital Signs Temp Pulse Resp BP Pulse Ox O2 Del Method O2 Flow Rate 98.1 F 59 L 18 149/67 H 96 Room Air 6 03/06/23 02:15 03/06/23 02:15 03/06/23 02:15 03/06/23 02:15 03/06/23 02:15 03/06/23 02:15 03/02/23 14:20 Oxygen Flow Rate (L/min) 6 Oxygen Delivery Method Room Air Weight: 110.8 kg Body Mass Index (BMI) 37.1 Intake & Output: Intake and Output for Last 24 Hours 03/04/23 03/05/23 03/06/23 23:59 23:59 23:59 Intake Total 1950 / 2150 4236.75 / 4236.75 275 / 275 Output Total 3800 / 4725 4775 / 4775 Balance -1850 / -2575 -538.25 / -538.25 275 / 275 Lab / Micro Data Result Diagrams: 03/05/23 05:54 03/05/23 05:54 Labs: Laboratory Results - last 24 hr 03/05/23 11:04: POC Glucose 169 H 03/05/23 16:06: POC Glucose 142 H 03/05/23 21:06: POC Glucose 160 H Micro: Microbiology 03/02/23 14:06 Bone - 5th Toe Gram Stain - Final 03/02/23 14:06 Bone - 5th Toe Wound Culture - Preliminary Strep anginosus Streptococcus agalactiae (B) Gram negative elizabeth 03/02/23 14:06 Bone - 5th Toe Anaerobic Culture - Preliminary Checking for anaerobes, further studies to follow. 03/02/23 14:10 Bone - 5th Toe Gram Stain - Final 03/02/23 14:10 Bone - 5th Toe Wound Culture - Final Streptococcus agalactiae (B) Pseudomonas aeruginosa 03/02/23 14:10 Bone - 5th Toe Anaerobic Culture - Preliminary Checking for anaerobes, further studies to follow. 03/01/23 12:45 Wound - Right Foot Gram Stain - Final 03/01/23 12:45 Wound - Right Foot Wound Culture - Final Staphylococcus aureus Streptococcus agalactiae (B) Proteus penneri 03/01/23 12:45 Wound - Right Foot Anaerobic Culture - Preliminary Checking for anaerobes, further studies to follow. 03/01/23 15:15 Blood Culture (Wb) - Anticubital Left Blood Culture - Preliminary No growth in 48 hours. 03/01/23 14:40 Blood Culture (Wb) - Anticubital Left Blood Culture - Preliminary No growth in 48 hours. Physical Exam Narrative Left foot s/p left 5th toe and 5th met head amputation - wound is health and viable, bleeding controlled, erythema to foot with further improvement and is resolved at this time, no maloder, no fluctuance, no crepitus present - CFT < 2 seconds to remaining toes, no evidence of complication at this time. Const alert, oriented x3 and no apparent distress Assessment & Plan Assessment/Plan (1) Cellulitis of right lower limb: (2) Diabetic foot ulcer: (3) Osteomyelitis: (4) Neuropathy: (5) Type 2 diabetes mellitus with foot ulcer: PLAN: Plan s/p left foot 5th toe and 5th metatarsal head amputation on 03/02/23 - site continues to heal and improve. Patient on IV antibiotic therapy per Infectious Disease - surgical culture results pending. Wound care: Dakins wet to dry gauze dressing changes daily - will proceed with wound vac. No weightbearing right foot. LEAS for further evaluation of arterial flow - reviewed results, some PVD noted - vascular surgery consulted. Hospital medicine following patient as well. Podiatry will continue to follow patient. 03/06/23724 <Electronically signed by Tereso Navarro DPM> Tereso Navarro DPM Cosigner Signature (if applicable): CC: ~ Signed [facility] Work Phone: [phone]) 240-231706-26-[address] Araya [facility] March 06, 2023 6:34am Note Date/Time March 03, 2023 3:36 pm [facility] Medical Records Department [address] [place] [address] Consultation - Surgical 03/03/23 1251 MR#: [id number] Acct: [id number] Name: REMI BELTRAN Rep #:[id number] : 1965 57 From: Jade SUN PCP: Dr. Gulshan Early MD Status:ADM I N Location: OR3 IZ433-5 Assessment & Plan Assessment/Plan (1) Diabetic foot ulcer: PLAN: Patient has mildly diminished R TBI of 0.73 but otherwise normal LEAS withR HIMA 1.13 which suggests sufficient arterial inflow to heal R fifth digit amputation. To this point, wound bed is viable and well-healing. Maintaining good glycemic control will likely be of greatest benefit to wound healing. No further imaging or vascular intervention indicated at this time. Should wound healing be delayed or complicated would recommend reassessment on an outpatient basis. The above was discussed with the patient and she was agreeable with this plan. No medication changes recommended, continue ASA and statin. HPI Consult Data Date of Consult: 03/03/23 HPI Narrative HPI Narrative: REMI BELTRAN, is a 57 F who presented to the [facility] ED on 03/01/2023 with diabeticfoot infection involving the right fifth digit and lateral aspect of the foot. X-rays revealed evidence of osteomyelitis. She was admitted for IV antibiotics and podiatry evaluation. 03/02/2023 Dr. Navarro performed amputation of the right fifth toe and partial fifth metatarsal. The amputation site was noted to appear well perfused during the operation. In podiatry evaluation today, wound bed was noted to appear healthy and viable. A lower extremity arterial study was obtained on 03/01/2023 which revealed right HIMA 1.13 with triphasic waveforms, but with right TBI slightly diminished at 0.73. Left HIMA was 1.09 with triphasic waveforms no TBI due to prior left great toe amputation. Patient reports a history of prior diabetic foot ulcers which led to being partial amputation of multiple toes on her left foot. She reports that once palpitations occurred she had no issues healing. She denies any history of prior vascular surgical intervention, VTE. She currently has no significant painin her foot other than immediately around the surgical site. She denies symptoms such as claudication, rest/nocturnal pain, discoloration or pallor of her BLE. She is healing well following surgery and has no specific complaints today. [facility] Medical History Anxiety Arthritis Asthma Asthma Back pain Broken teeth Cardiology follow-up encounter Chronic steroid use CPAP (continuous positive airway pressure) dependence Depression Dermatitis Diabetes type 2, uncontrolled Dietary restriction Difficulty balancing when standing Edema Essential (primary) hypertension Fibromyalgia GERD (gastroesophageal reflux disease) Hammertoe of left foot History of pain when walking History of stress test Hypergammaglobulinemia Hyperlipemia Hypertension Hypothyroidism Iron deficiency Leg cramping Morbid obesity with BMI of 40.0-44.9, adult Multinodular thyroid Non-smoker Normal echocardiogram Osteomyelitis of toe Other specified peripheral vascular diseases PAD (peripheral artery disease) Shortness of breath Skin ulcer of right foot including toes with fat layer exposed Venous stasis dermatitis of both lower extremities Wears glasses Home Medications celecoxib 200 mg capsule 200 mg PO DAILY ARTHRITIS/INFLAMMATION 10/18/18 [History Last Taken 02/28/23] loratadine 10 mg capsule 10 mg PO DAILY ALLERGIES 10/18/18 [History Last Taken 02/28/23] metformin 1,000 mg tablet 1,000 mg PO BID DIABETES 10/18/18 [History Last Taken 02/28/23] montelukast 10 mg tablet 10 mg PO QHS ASTHMA/ALLERGIES 10/18/18 [History Last Taken 02/28/23] omeprazole 40 mg capsule,delayed release 40 mg PO DAILY ACID REFLUX 10/18/18 [History Last Taken 02/28/23] calcium carbonate 500 mg-vitamin D3 10 mcg (400 unit) tablet 1 ea PO DAILY SUPPLEMENT 10/29/19 [History Last Taken 02/28/23] paroxetine HCl 40 mg tablet 40 mg PO DAILY DEPRESSION 10/29/19 [History Last Taken 02/28/23] potassium chloride 20 mEq tablet,extended release(part/cryst) 20 meq PO DAILY SUPPLEMENT 10/29/19 [History Last Taken 02/28/23] pregabalin 150 mg capsule 150 mg PO TID NERVE PAIN 10/29/19 [History Last Taken 02/28/23] aspirin 81 mg tablet,delayed release (Adult Low Dose Aspirin) 81 mg PO DAILY HEART HEALTH 07/21/20 [History Last Taken 02/28/23] cilostazol 100 mg tablet 100 mg PO DAILY CHOLESTEROL 07/21/20 [History Last Taken 02/28/23] levothyroxine 175 mcg tablet 175 mcg PO DAILY THYROID 07/21/20 [History Last Taken 02/28/23] metoprolol succinate 200 mg tablet,extended release 24 hr 200 mg PO DAILY BLOOD PRESSURE 07/21/20 [History Last Taken 02/28/23] albuterol sulfate 90 mcg/actuation aerosol inhaler (ProAir HFA) 1 inh [id number] PRN SHORTNESS OF BREATH 08/26/22 [History Last Taken 2 Days Ago ~02/27/23] ferrous sulfate 325 mg (65 mg iron) tablet (iron) 325 mg PO DAILY ANEMIA 08/26/22 [History Last Taken 02/28/23] rosuvastatin 40 mg tablet (Crestor) 40 mg PO DAILY CHOLESTEROL 08/26/22 [History Last Taken 02/28/23] pen needle, diabetic 32 gauge x 5/32" (BD Ultra-Fine Catalina Pen Needle) #100 ea 02/13/23 [Rx Last Taken Unknown] dapagliflozin propanediol 10 mg tablet (Farxiga) 10 mg PO DAILY DIABETES 03/01/23 [History Last Taken 02/28/23] glimepiride 4 mg tablet 4 mg PO BID DIABETES 03/01/23 [History Last Taken 02/28/23] insulin detemir U-100 100 unit/mL (3 mL) subcutaneous pen (Levemir FlexPen) 55 unit subcut DAILY DIABETES 03/01/23 [History Last Taken 02/28/23] ipratropium bromide 42 mcg (0.06 %) nasal spray 2 spray intranasal DAILY NASAL DRAINAGE 03/01/23 [History Last Taken 02/28/23] losartan 100 mg tablet 100 mg PO DAILY BLOOD PRESSURE 03/01/23 [History Last Taken 02/28/23] multivitamin 1 tab PO DAILY HEALTH MAINTENANCE 03/01/23 [History Last Taken 02/28/23] tirzepatide 2.5 mg/0.5 mL subcutaneous pen injector (Mounjaro) 2.5 mg subcut WE DIABETES 03/01/23 [History Last Taken 02/22/23] trazodone 100 mg tablet 200 mg PO QHS SLEEP 03/01/23 [History Last Taken 02/28/23] vitamin B complex 1 cap PO DAILY SUPPLEMENT 03/01/23 [History Last Taken 02/28/23] Allergy/AdvReac Type Severity Reaction Status Date / Time piperacillin [From Zosyn] Allergy Severe Anaphylaxis Verified 03/01/23 10:39 tazobactam [From Zosyn] Allergy Severe Anaphylaxis Verified 03/01/23 10:39 sulfamethoxazole Allergy Unknown Anaphylaxis Verified 03/01/23 13:34 [From Bactrim] trimethoprim [From Bactrim] Allergy Unknown Anaphylaxis Verified 03/01/23 13:34 latex Allergy Rash Verified 03/01/23 09:27 tetanus and diphtheria Allergy Anaphylaxis Verified 03/01/23 09:27 toxoids [Tetanus&Diphtheria Toxoid] flea medicine Allergy Anaphylaxis, Uncoded 03/01/23 09:27 Diarrhea Family History Mother Diabetes Dementia Father Diabetes Myocardial infarction Surgical History H/O amputation of lesser toe (05/05/17) H/O arthroscopic knee surgery (11/2019) History of cholecystectomy History of nasal septoplasty History of thyroidectomy Hx of total knee arthroplasty Social History Smoking Status: Never smoker alcohol intake: current alcohol intake frequency: holidays/special occasions only Physical Exam Const alert, oriented x3 and no apparent distress General Appearance: cooperative and comfortable HEENT normocephalic, head/scalp atraumatic, hearing grossly normal bilaterally, external ears normal and external nose normal Eyes EOMs intact bilaterally General Eye: normal appearance of both eyes Neck full ROM General: normal visual inspection and trachea midline Resp normal respiratory effort, normal air movement, no retractions, no use of accessory muscles and clear to auscultation bilaterally Effort and Inspection: able to speak in complete sentences; Negative for labored, stridor or audible wheezes Cardio regular rate and regular rhythm Peripheral Pulses: brachial pulses present and radial pulses present Extremity Extremity Narrative: Right foot with dressing in place and was not removed for exam. PT pulses palpable bilaterally. Skin Wounds: wounds noted Wound Narrative: R 5th toe amputation site with dressing in place, no bleed through noted. Neuro oriented x3, CN's II-XII intact bilaterally, moves all extremities, no focal motor deficits and no sensory deficits noted Speech: speech normal Psych Appearance: grossly normal Attitude: calm and engaged Activity / Motor Behavior: appropriate eye contact Speech: normal speech Mood & Affect: euthymic mood Lab / Micro Data Result Diagrams: 03/03/23 05:24 03/03/23 05:24 Labs: Laboratory Results - last 24 hr 03/02/23 14:38: POC Glucose 93 03/02/23 16:41: POC Glucose 112 H 03/02/23 21:06: POC Glucose 177 H 03/02/23 22:13: Vancomycin Trough 23.7 H 03/03/23 05:24: WBC 6.4, RBC 3.51 L, Hgb 9.9 L, Hct 30.9 L, MCV 88.0, MCH 28.2, MCHC 32.0 D, RDW Std Deviation 45.3 H, RDW Coeff of Kami 14.0, Plt Count 270, MPV 8.8, Immature Gran % (Auto) 0.200, Neut % (Auto) 70.3 H, Lymph % (Auto) 17.4 L, Evangeline % (Auto) 9.8, Eos % (Auto) 2.0, Baso % (Auto) 0.3, Absolute Neuts (auto)4.5, Absolute Lymphs (auto) 1.12, Nucleated RBC % 0 03/03/23 05:24: Sodium 139, Potassium 3.6, Chloride 105, Carbon Dioxide 29.0, Anion Gap 5, BUN 17, Creatinine 0.63, Estim Creat Clear Calc 98.19, Est GFR (MDRD) Af Amer 125, Est GFR (MDRD) Non-Af 103, BUN/Creatinine Ratio 27.0 H, Glucose 101, Calcium 8.4 L 03/03/23 06:22: POC Glucose 105 03/03/23 10:10: Random Vancomycin 13.3 03/03/23 11:11: POC Glucose 139 H Micro: Microbiology 03/02/23 14:10 Bone - 5th Toe Gram Stain - Final 03/02/23 14:10 Bone - 5th Toe Wound Culture - Preliminary Gram positive organism 03/02/23 14:06 Bone - 5th Toe Gram Stain - Final 03/02/23 14:06 Bone - 5th Toe Wound Culture - Preliminary 03/01/23 15:15 Blood Culture (Wb) - Anticubital Left Blood Culture - Preliminary No growth in 48 hours. 03/01/23 14:40 Blood Culture (Wb) - Anticubital Left Blood Culture - Preliminary No growth in 48 hours. 03/01/23 12:45 Wound - Right Foot Gram Stain - Final 03/01/23 12:45 Wound - Right Foot Wound Culture - Preliminary Staphylococcus aureus Staphylococcus species Beta streptococcus Gram negative elizabeth Radiology Impression Extremity Arterial Study 03/01/23 15:27 Interpretation Summary Right HIMA 1.13, normal. Doppler/PVR waveforms of the right leg normal at rest. TBI diminished, pedal/digit disease vs spasm Left HIMA 1.09, normal. Doppler/PVR waveforms of the left leg normal at rest. Ordering Physician: Tereso Navarro Referring Physician: Gulshan Early Chi Performed By: Krystyna Rahman RVT Charges/Coding Visit Charges Inpatient E&M: 85193 Init Hosp L2 03/03/23 1753 <Electronically signed by Jade SUN> Cosigner Signature (if applicable): 03/06/23 0634 <Electronically signed by Pérez Araya MD> CC: DPM Dr. Tereso Navarro; Dr. Pérez Araya MD; Dr. Victorino Mixon MD; Dr. Gulshan Early MD~ Signed [facility] Work Phone: [phone]) 520-396406-25-[address] Navarro [facility] March 05, 2023 11:32am Note Date/Time March 05, 2023 11:3 2am [facility] Medical Records Department [address] [place] [address] Progress Note 03/05/23 1131 MR#: [id number] Acct: [id number] Name: REMI BELTRAN Rep #:[id number] : 1965 57 From: Tereso Navarro DPM PCP: Dr. Gulshan Early MD Status:ADM I N Location: [place] [address] Subjective Subjective Patient was seen this morning for follow up on right foot. She is resting, sitting in chair, no complaint. She is asking if she can go to the TCU. Objective Data Objective Data Vital Signs: Vital Signs Temp Pulse Resp BP Pulse Ox O2 Del Method O2 Flow Rate 98.1 F 60 16 119/73 95 Room Air 6 03/05/23 11:25 03/05/23 11:25 03/05/23 11:25 03/05/23 11:25 03/05/23 11:25 03/05/23 11:25 03/02/23 14:20 Oxygen Flow Rate (L/min) 6 Oxygen Delivery Method Room Air Weight: 110.8 kg Body Mass Index (BMI) 37.1 Intake & Output: Intake and Output for Last 24 Hours 03/03/23 03/04/23 03/05/23 23:59 23:59 23:59 Intake Total 1877.5 / 2277.5 1950 / 2150 1625 / 1625 Output Total 3350 / 3650 3800 / 4725 2074 Balance -1472.5 / -1372.5 -1850 / -2575 -450 / -450 Lab / Micro Data Result Diagrams: 03/05/23 05:54 03/05/23 05:54 Labs: Laboratory Results - last 24 hr 03/04/23 16:08: POC Glucose 122 H 03/04/23 21:57: POC Glucose 182 H 03/04/23 23:33: Vancomycin Trough 17.0 H 03/05/23 05:54: WBC 5.1, RBC 3.74 L, Hgb 10.3 L, Hct 33.0 L, MCV 88.2, MCH 27.5,MCHC 31.2 L, RDW Std Deviation 44.0 H, RDW Coeff of Kami 13.6, Plt Count 331, MPV8.7, Immature Gran % (Auto) 0.400, Neut % (Auto) 58.2, Lymph % (Auto) 25.2, Evangeline% (Auto) 11.5 H, Eos % (Auto) 4.1, Baso % (Auto) 0.6, Absolute Neuts (auto) 3.0,Absolute Lymphs (auto) 1.29, Nucleated RBC % 0 03/05/23 05:54: Sodium 141, Potassium 4.1, Chloride 104, Carbon Dioxide 33.0 H, Anion Gap 4 L, BUN 19 H, Creatinine 0.62, Estim Creat Clear Calc 99.77, Est GFR (MDRD) Af Amer 126, Est GFR (MDRD) Non-Af 105, BUN/Creatinine Ratio 30.5 H, Glucose 137 H, Calcium 8.4 L 03/05/23 06:04: POC Glucose 129 H 03/05/23 11:04: POC Glucose 169 H Micro: Microbiology 03/02/23 14:10 Bone - 5th Toe Gram Stain - Final 03/02/23 14:10 Bone - 5th Toe Wound Culture - Final Streptococcus agalactiae (B) Pseudomonas aeruginosa 03/02/23 14:10 Bone - 5th Toe Anaerobic Culture - Preliminary Checking for anaerobes, further studies to follow. 03/02/23 14:06 Bone - 5th Toe Gram Stain - Final 03/02/23 14:06 Bone - 5th Toe Wound Culture - Preliminary Strep anginosus Streptococcus agalactiae (B) 03/02/23 14:06 Bone - 5th Toe Anaerobic Culture - Preliminary Checking for anaerobes, further studies to follow. 03/01/23 12:45 Wound - Right Foot Gram Stain - Final 03/01/23 12:45 Wound - Right Foot Wound Culture - Final Staphylococcus aureus Streptococcus agalactiae (B) Proteus penneri 03/01/23 12:45 Wound - Right Foot Anaerobic Culture - Preliminary Checking for anaerobes, further studies to follow. 03/01/23 15:15 Blood Culture (Wb) - Anticubital Left Blood Culture - Preliminary No growth in 48 hours. 03/01/23 14:40 Blood Culture (Wb) - Anticubital Left Blood Culture - Preliminary No growth in 48 hours. Physical Exam Narrative Left foot s/p left 5th toe and 5th met head amputation - wound is health and viable, bleeding controlled, erythema to foot with further improvement, no maloder, no fluctuance, no crepitus present - CFT < 2 seconds to remaining toes,no evidence of complication at this time. Const alert, oriented x3 and no apparent distress Assessment & Plan Assessment/Plan (1) Cellulitis of right lower limb: (2) Diabetic foot ulcer: (3) Osteomyelitis: (4) Neuropathy: (5) Type 2 diabetes mellitus with foot ulcer: PLAN: Plan s/p left foot 5th toe and 5th metatarsal head amputation on 03/02/23 - site continues to heal and improve. Patient on IV antibiotic therapy per Infectious Disease - surgical culture results pending. Wound care: Dakins wet to dry gauze dressing changes daily - will likely plan for wound vac in future. No weightbearing right foot. LEAS for further evaluation of arterial flow - reviewed results, some PVD noted - vascular surgery consulted. Hospital medicine following patient as well. Podiatry will continue to follow patient. 03/05/23 1132 <Electronically signed by Tereso Navarro DPM> Tereso Navarro DPM Cosigner Signature (if applicable): CC: ~ Signed [facility] Work Phone: [phone]) [phone] Tyler [facility] March 05, 2023 9:42am Note Date/Time March 05, 2023 9:42 am [facility] Medical Records Department [address] [place] [address] Progress Note - Hospitalist 03/05/23 0940 MR#: [id number] Acct: [id number] Name: REMI BELTRAN Rep #:[id number] : 1965 57 From: Macario calloway MD PCP: Dr. Gulshan Early MD Status:ADM I N Location: [facility] IV775-6 Subjective Subjective Doing well, no issues overnight. Ambulation is difficult having to be nonweightbearing on her right leg which is her dominant leg will likely need SNFplacement for rehab Objective Data Objective Data Vital Signs: Vital Signs Temp Pulse Resp BP Pulse Ox O2 Del Method O2 Flow Rate 97.8 F 57 L 16 138/73 H 97 Room Air 6 03/05/23 08:47 03/05/23 08:47 03/05/23 08:47 03/05/23 08:47 03/05/23 08:47 03/05/23 08:47 03/02/23 14:20 Oxygen Flow Rate (L/min) 6 Oxygen Delivery Method Room Air Weight: 244 lb 4.355 oz Body Mass Index (BMI) 37.1 Intake & Output: Intake and Output for Last 24 Hours 03/04/23 03/05/23 03/06/23 03:59 03:59 03:59 Intake Total 2552.5 / 2552.5 1750 / 1750 700 / 700 Output Total 3350 / 3350 4425 / 4425 1150 / 1150 Balance -797.5 / -797.5 -2675 / -2675 -450 / -450 Lab / Micro Data Result Diagrams: 03/05/23 05:54 03/05/23 05:54 Labs: Laboratory Results - last 24 hr 03/04/23 10:57: POC Glucose 175 H 03/04/23 16:08: POC Glucose 122 H 03/04/23 21:57: POC Glucose 182 H 03/04/23 23:33: Vancomycin Trough 17.0 H 03/05/23 05:54: WBC 5.1, RBC 3.74 L, Hgb 10.3 L, Hct 33.0 L, MCV 88.2, MCH 27.5,MCHC 31.2 L, RDW Std Deviation 44.0 H, RDW Coeff of Kami 13.6, Plt Count 331, MPV8.7, Immature Gran % (Auto) 0.400, Neut % (Auto) 58.2, Lymph % (Auto) 25.2, Evangeline% (Auto) 11.5 H, Eos % (Auto) 4.1, Baso % (Auto) 0.6, Absolute Neuts (auto) 3.0,Absolute Lymphs (auto) 1.29, Nucleated RBC % 0 03/05/23 05:54: Sodium 141, Potassium 4.1, Chloride 104, Carbon Dioxide 33.0 H, Anion Gap 4 L, BUN 19 H, Creatinine 0.62, Estim Creat Clear Calc 99.77, Est GFR (MDRD) Af Amer 126, Est GFR (MDRD) Non-Af 105, BUN/Creatinine Ratio 30.5 H, Glucose 137 H, Calcium 8.4 L 03/05/23 06:04: POC Glucose 129 H Micro: Microbiology 03/01/23 12:45 Wound - Right Foot Gram Stain - Final 03/01/23 12:45 Wound - Right Foot Wound Culture - Final Staphylococcus aureus Streptococcus agalactiae (B) Proteus penneri 03/01/23 12:45 Wound - Right Foot Anaerobic Culture - Preliminary Checking for anaerobes, further studies to follow. 03/02/23 14:10 Bone - 5th Toe Gram Stain - Final 03/02/23 14:10 Bone - 5th Toe Wound Culture - Preliminary Beta streptococcus Gram negative elizabeth 03/02/23 14:10 Bone - 5th Toe Anaerobic Culture - Preliminary Checking for anaerobes, further studies to follow. 03/02/23 14:06 Bone - 5th Toe Gram Stain - Final 03/02/23 14:06 Bone - 5th Toe Wound Culture - Preliminary 03/02/23 14:06 Bone - 5th Toe Anaerobic Culture - Preliminary Checking for anaerobes, further studies to follow. 03/01/23 15:15 Blood Culture (Wb) - Anticubital Left Blood Culture - Preliminary No growth in 48 hours. 03/01/23 14:40 Blood Culture (Wb) - Anticubital Left Blood Culture - Preliminary No growth in 48 hours. Physical Exam Narrative General: Alert, Oriented x3, Cooperative, No apparent distress HEENT: Atraumatic, PERRLA, EOMI, Normocephalic Oral: Moist Mucosa Neck: Supple, No JVD Lungs: Diminished, Normal air movement, No rhonchi, No wheeze, No rales Cardiovascular: Regular rate, Regular Rhythm, Normal S1, Normal S2, No murmurs Abdomen: Soft, Non Tender, Non-Distended, No Hepato-splenomegaly Extremities: No edema, Capillary Refill Less than 3 Seconds Skin: Right lower extremity wound dressed Musculoskeletal: No Tenderness to Palpation of Joints or Extremities Neurological: Cranial nerves II-XII grossly intact, Motor Exam 5/5 strength throughout, Sensory exam intact to light touch and pain Psych/Mental Status: Normal Affect, Appropriate Assessment & Plan Assessment/Plan (1) Type 2 diabetes mellitus with foot ulcer: (2) Cellulitis of right lower limb: (3) Osteomyelitis: PLAN: Plan 1. Type 2 diabetes with diabetic foot ulcer and osteomyelitis of her right fifth metatarsal and neuropathy ? She did have what appeared to be an anaphylactic reaction to Zosyn ? We will consult infectious disease for antibiotic recommendations, triggers with MSSA and Proteus as well as strep agalactiae ? MRI with osteomyelitis, status post operative intervention 03/02/2023 ? We will continue with insulin long-acting and sliding scale and make adjustments as necessary ? Accu-Cheks ACHS ? We will hold her home diabetic medications ? Continue with Lyrica ? PT/OT for evaluation and possible placement 2. HTN/HLD/peripheral artery disease ? Blood pressure are stable ? Can resume her home blood pressure medications ? We will hold aspirin secondary to possible surgical intervention ? Continue cilostazol, it appears her last ABIs were done in 2018 we will repeat ? Continue with statin 3. Hypothyroidism ? Stable ? Continue with Synthroid 4. GERD ? Stable ? Continue with PPI 5. Anxiety/depression ? Stable ? Continue with her home medications DVT: Lovenox Charges/Coding Visit Charges Inpatient E&M: 06546 Subs Hosp L2 03/05/23 0980 <Electronically signed by Macario Tyler MD> Cosigner Signature (if applicable): CC: ~ Signed [facility] Work Phone: [phone]) 330-101506-25-2023 Consult note Author Pérez Ness [facility] March 05, 2023 12:23am Note Date/Time March 05, 2023 12:[address] [facility] Medical Records Department [address] [place] [address] Pharmacokinetic/Renal -Consult 03/05/23 0021 MR#: [id number] Acct: [id number] Name: REMI BELTRAN Rep #:[id number] : 1965 57 From: Pérez Ness PCP: Dr. Gulshan Early MD Status:ADM I N Y Location: [place] [address] Consult Pharmacy has been consulted to manage selected antiobiotic: Vancomycin Type of Consult: Follow-up Suspected Infection: Osteomyelitis Prior Doses of Antibiotics Received/Current Regimen: Medications Vancomycin HCl 1,250 mg/ (Sodium Chloride) 275 mls @ 167 mls/hr IV Q12H RUTH Last Admin: 03/04/23 23:40 Dose: 167 mls/hr Labs: Sodium 139 mmol/L (136-145) 03/03/23 05:24 Potassium 3.6 mmol/L (3.5-5.1) 03/03/23 05:24 Chloride 105 mmol/L (98-107) 03/03/23 05:24 Carbon Dioxide 29.0 mmol/L (21.0-32.0) 03/03/23 05:24 Anion Gap 5 (5-15) 03/03/23 05:24 BUN 17 mg/dL (7-18) 03/03/23 05:24 Creatinine 0.63 mg/dL (0.55-1.02) 03/03/23 05:24 Est GFR (MDRD) Af Amer 125 mL/min (>60) 03/03/23 05:24 Est GFR (MDRD) Non-Af 103 mL/min (>60) 03/03/23 05:24 BUN/Creatinine Ratio 27.0 RATIO (10-20) H 03/03/23 05:24 Glucose 101 mg/dL (74-106) 03/03/23 05:24 Vancomycin Trough 17.0 ug/mL (5.0-15.0) H 03/04/23 23:33 Random Vancomycin 13.3 ug/mL (0.0-15.0) 03/03/23 10:10 Microbiology: Microbiology 03/02/23 14:10 Bone - 5th Toe Gram Stain - Final 03/02/23 14:10 Bone - 5th Toe Wound Culture - Preliminary Beta streptococcus Gram negative elizabeth 03/02/23 14:06 Bone - 5th Toe Gram Stain - Final 03/02/23 14:06 Bone - 5th Toe Wound Culture - Preliminary 03/01/23 12:45 Wound - Right Foot Gram Stain - Final 03/01/23 12:45 Wound - Right Foot Wound Culture - Final Staphylococcus aureus Streptococcus agalactiae (B) Proteus penneri 03/01/23 15:15 Blood Culture (Wb) - Anticubital Left Blood Culture - Preliminary No growth in 48 hours. 03/01/23 14:40 Blood Culture (Wb) - Anticubital Left Blood Culture - Preliminary No growth in 48 hours. Weight used for dosin.8 kg Estimated Creatinine Clearance: >100 Goal Trough: 15-20 mcg/mL Pharmacy Plan for Drug Dosing: Vancomycin trough level, drawn 11.5hrs post-dose, was 17.0. This is within the target range of 15-20, so will continue dosing at 1250mg q12h, and will re-draw a trough in two days. Pharmacy Service will continue to monitor and adjust dosing as required. Follow-Up Labs: Trough Vancomycin Labs to be done on [date and time ordered]: 03/06/23 @2330 03/05/23 0023 <Electronically signed by Pérez simmons > Date _ Pérez Parker Signature (if applicable): Date CC: ~ Signed [facility] Work Phone: [phone]) 380-574506-24-[address] Tyler [facility] March 04, 2023 8:52am Note Date/Time March 04, 2023 8:52 am [facility] Medical Records Department [address] [place] [id number] Progress Note - Hospitalist 03/04/23 0849 MR#: [id number] Acct: [id number] Name: REMI BELTRAN Rep #:[id number] : 1965 57 From: Macario calloway MD PCP: Dr. Gulshan Early MD Status:ADM I N Location: [facility] [id number] Subjective Subjective Doing well, pain is controlled. No issues overnight Objective Data Objective Data Vital Signs: Vital Signs Temp Pulse Resp BP Pulse Ox O2 Del Method O2 Flow Rate 98 F 63 16 128/69 H 94 Room Air 6 03/04/23 08:29 03/04/23 08:29 03/04/23 08:29 03/04/23 08:29 03/04/23 08:29 03/04/23 08:29 03/02/23 14:20 Oxygen Flow Rate (L/min) 6 Oxygen Delivery Method Room Air Weight: 244 lb 4.355 oz Body Mass Index (BMI) 37.1 Intake & Output: Intake and Output for Last 24 Hours 03/03/23 03/04/23 03/05/23 03:59 03:59 03:59 Intake Total 1080 / 1080 2552.5 / 2552.5 400 / 400 Output Total 300 / 300 3350 / 3350 1000 / 1000 Balance 780 / 780 -797.5 / -797.5 -600 / -600 Lab / Micro Data Result Diagrams: 03/03/23 05:24 03/03/23 05:24 Labs: Laboratory Results - last 24 hr 03/03/23 10:10: Random Vancomycin 13.3 03/03/23 11:11: POC Glucose 139 H 03/03/23 16:05: POC Glucose 145 H 03/03/23 21:17: POC Glucose 136 H 03/04/23 06:11: POC Glucose 128 H Micro: Microbiology 03/02/23 14:10 Bone - 5th Toe Gram Stain - Final 03/02/23 14:10 Bone - 5th Toe Wound Culture - Preliminary Gram positive organism 03/02/23 14:06 Bone - 5th Toe Gram Stain - Final 03/02/23 14:06 Bone - 5th Toe Wound Culture - Preliminary 03/01/23 15:15 Blood Culture (Wb) - Anticubital Left Blood Culture - Preliminary No growth in 48 hours. 03/01/23 14:40 Blood Culture (Wb) - Anticubital Left Blood Culture - Preliminary No growth in 48 hours. 03/01/23 12:45 Wound - Right Foot Gram Stain - Final 03/01/23 12:45 Wound - Right Foot Wound Culture - Preliminary Staphylococcus aureus Staphylococcus species Beta streptococcus Gram negative elizabeth Physical Exam Narrative General: Alert, Oriented x3, Cooperative, No apparent distress HEENT: Atraumatic, PERRLA, EOMI, Normocephalic Oral: Moist Mucosa Neck: Supple, No JVD Lungs: Diminished, Normal air movement, No rhonchi, No wheeze, No rales Cardiovascular: Regular rate, Regular Rhythm, Normal S1, Normal S2, No murmurs Abdomen: Soft, Non Tender, Non-Distended, No Hepato-splenomegaly Extremities: No edema, Capillary Refill Less than 3 Seconds Skin: Right lower extremity wound dressed Musculoskeletal: No Tenderness to Palpation of Joints or Extremities Neurological: Cranial nerves II-XII grossly intact, Motor Exam 5/5 strength throughout, Sensory exam intact to light touch and pain Psych/Mental Status: Normal Affect, Appropriate Assessment & Plan Assessment/Plan (1) Type 2 diabetes mellitus with foot ulcer: (2) Cellulitis of right lower limb: (3) Osteomyelitis: PLAN: Plan 1. Type 2 diabetes with diabetic foot ulcer and osteomyelitis of her right fifth metatarsal and neuropathy ? She did have what appeared to be an anaphylactic reaction to Zosyn ? We will consult infectious disease for antibiotic recommendations, awaiting cultures ? MRI with osteomyelitis, status post operative intervention 03/02/2023 ? We will continue with insulin long-acting and sliding scale and make adjustments as necessary ? Accu-Cheks ACHS ? We will hold her home diabetic medications ? Continue with Lyrica 2. HTN/HLD/peripheral artery disease ? Blood pressure are stable ? Can resume her home blood pressure medications ? We will hold aspirin secondary to possible surgical intervention ? Continue cilostazol, it appears her last ABIs were done in 2018 we will repeat ? Continue with statin 3. Hypothyroidism ? Stable ? Continue with Synthroid 4. GERD ? Stable ? Continue with PPI 5. Anxiety/depression ? Stable ? Continue with her home medications DVT: Lovenox Charges/Coding Visit Charges Inpatient E&M: 35865 Subs Hosp L2 03/04/23 6754 <Electronically signed by Macario Tyler MD> Cosigner Signature (if applicable): CC: ~ Signed [facility] Work Phone: 1([phone]) [phone] Navarro [facility] March 04, 2023 7:18am Note Date/Time March 04, 2023 7:18 am [facility] Medical Records Department [address] [place] [address] Progress Note 03/04/23 0717 MR#: [id number] Acct: [id number] Name: REMI BELTRAN Rep #:[id number] : 1965 57 From: Tereso Navarro DPM PCP: Dr. Gulshan Early MD Status:ADM I N Location: [address] Subjective Subjective Patient was seen this morning. She is resting comfortably in bed, no complaints.No f/c/n/v. Objective Data Objective Data Vital Signs: Vital Signs Temp Pulse Resp BP Pulse Ox O2 Del Method O2 Flow Rate 98.8 F 65 16 135/71 H 93 Room Air 6 03/04/23 04:05 03/04/23 04:05 03/04/23 04:05 03/04/23 04:05 03/04/23 04:05 03/04/23 04:05 03/02/23 14:20 Oxygen Flow Rate (L/min) 6 Oxygen Delivery Method Room Air Weight: 110.8 kg Body Mass Index (BMI) 37.1 Intake & Output: Intake and Output for Last 24 Hours 03/02/23 03/03/23 03/04/23 23:59 23:59 23:59 Intake Total 2019 1877.5 / 2277.5 1075 / 1075 Output Total 3350 / 3650 1300 / 1300 Balance 2019 1720 -1472.5 / -1372.5 -225 / -225 Lab / Micro Data Result Diagrams: 03/03/23 05:24 03/03/23 05:24 Labs: Laboratory Results - last 24 hr 03/03/23 10:10: Random Vancomycin 13.3 03/03/23 11:11: POC Glucose 139 H 03/03/23 16:05: POC Glucose 145 H 03/03/23 21:17: POC Glucose 136 H 03/04/23 06:11: POC Glucose 128 H Micro: Microbiology 03/02/23 14:10 Bone - 5th Toe Gram Stain - Final 03/02/23 14:10 Bone - 5th Toe Wound Culture - Preliminary Gram positive organism 03/02/23 14:06 Bone - 5th Toe Gram Stain - Final 03/02/23 14:06 Bone - 5th Toe Wound Culture - Preliminary 03/01/23 15:15 Blood Culture (Wb) - Anticubital Left Blood Culture - Preliminary No growth in 48 hours. 03/01/23 14:40 Blood Culture (Wb) - Anticubital Left Blood Culture - Preliminary No growth in 48 hours. 03/01/23 12:45 Wound - Right Foot Gram Stain - Final 03/01/23 12:45 Wound - Right Foot Wound Culture - Preliminary Staphylococcus aureus Staphylococcus species Beta streptococcus Gram negative elizabeth Physical Exam Narrative Left foot s/p left 5th toe and 5th met head amputation - wound is health and viable, bleeding has stopped, erythema to foot significant improved, no maloder,no fluctuance, no crepitus present - CFT < 2 seconds to remaining toes, no evidence of complication at this time. Const alert, oriented x3 and no apparent distress Assessment & Plan Assessment/Plan (1) Cellulitis of right lower limb: (2) Diabetic foot ulcer: (3) Osteomyelitis: (4) Neuropathy: (5) Type 2 diabetes mellitus with foot ulcer: PLAN: Plan s/p left foot 5th toe and 5th metatarsal head amputation on 03/02/23 - site continues to heal and improve. Patient on IV antibiotic therapy per Infectious Disease - surgical culture results pending. Wound care: Dakins wet to dry gauze dressing changes daily - will likely plan for wound vac in future. No weightbearing right foot. LEAS for further evaluation of arterial flow - reviewed results, some PVD noted - will consult vascular. Hospital medicine following patient as well. Podiatry will continue to follow patient. 03/04/2318 <Electronically signed by Tereso Navarro DPM> Tereso Navarro DPM Cosigner Signature (if applicable): CC: ~ Signed [facility] Work Phone: 1(242) 104-409206-23-[address] Tyler [facility] March 03, 2023 2:30pm Note Date/Time March 03, 2023 11:[address] [facility] Medical Records Department [address] [place] [address] Pharmacokinetic/Renal -Consult 03/03/23 1112 MR#: [id number] Acct: [id number] Name: REMI BELTRAN Rep #:[id number] : 1965 57 From: Ary Montenegro PCP: Dr. Gulshan Early MD Status:ADM I N Y Location: [place] [address] Consult Type of Consult: Follow-up Suspected Infection: Osteomyelitis Labs: Sodium 139 mmol/L (136-145) 03/03/23 05:24 Potassium 3.6 mmol/L (3.5-5.1) 03/03/23 05:24 Chloride 105 mmol/L (98-107) 03/03/23 05:24 Carbon Dioxide 29.0 mmol/L (21.0-32.0) 03/03/23 05:24 Anion Gap 5 (5-15) 03/03/23 05:24 BUN 17 mg/dL (7-18) 03/03/23 05:24 Creatinine 0.63 mg/dL (0.55-1.02) 03/03/23 05:24 Est GFR (MDRD) Af Amer 125 mL/min (>60) 03/03/23 05:24 Est GFR (MDRD) Non-Af 103 mL/min (>60) 03/03/23 05:24 BUN/Creatinine Ratio 27.0 RATIO (10-20) H 03/03/23 05:24 Glucose 101 mg/dL (74-106) 03/03/23 05:24 Vancomycin Trough 23.7 ug/mL (5.0-15.0) H 03/02/23 22:13 Random Vancomycin 13.3 ug/mL (0.0-15.0) 03/03/23 10:10 Microbiology: Microbiology 03/01/23 15:15 Blood Culture (Wb) - Anticubital Left Blood Culture - Preliminary No growth in 48 hours. 03/01/23 14:40 Blood Culture (Wb) - Anticubital Left Blood Culture - Preliminary No growth in 48 hours. 03/02/23 14:10 Bone - 5th Toe Gram Stain - Final 03/02/23 14:06 Bone - 5th Toe Gram Stain - Final 03/01/23 12:45 Wound - Right Foot Gram Stain - Final 03/01/23 12:45 Wound - Right Foot Wound Culture - Preliminary Staphylococcus aureus Staphylococcus species Beta streptococcus Gram negative elizabeth Goal Trough: 15-20 mcg/mL Pharmacy Plan for Drug Dosing: VANCOMYCIN LEVEL RECEIVED Current Vancomycin Dose: on hold following SUPRAtherapeutic trough Number of Doses Received: 2000mg x2, 1500mg x1 Vancomycin Level: 13.3 Hours Since Last Dose: 23 Renal Function: sCr 0.63 (CrCl > 100 ml/min) Renal Function Trend: stable Vancomycin Plan/Comments: Resume Vancomycin 1250mg Q12H Pending Level: Vancomycin trough @ 2330 03/04/23 Pharmacy Service will continue to monitor and adjust dosing as required. Labs to be done on [date and time ordered]: Vancomycin trough @ 2330 03/04/23 03/03/23 1112 <Electronically signed by Ary Montenegro > Date _ Ary Montenegro 03/03/23 1430 <Electronically signed by Macario villa MD> Cosigner Signature (if applicable): Date Macario Tyler MD CC: ~ Signed [facility] Work Phone: [phone]) 456-234206-23-[address] Mixon [facility] March 03, 2023 1:55pm Note Date/Time March 03, 2023 1:55 pm [facility] Medical Records Department [address] [place] [address] Progress Note - Infect Disease 03/03/23 1353 MR#: [id number] Acct: [id number] Name: REMI BELTRAN Rep #:[id number] : 1965 57 From: Victorino waters MD PCP: Dr. Gulshan Early MD Status:ADM I N Location: MS3 SB646-5 Physical Exam Narrative Some pain in foot, no fever, no n/v/d. Const alert and no apparent distress General Appearance: cooperative Resp normal air movement and clear to auscultation bilaterally Cardio regular rate and regular rhythm GI soft to palpation, non-tender and non-distended Skin Skin Narrative: foot wrapped ID ID: Route of nutrition/ use of supplements: [] Nutritional Intake: [] IV Site: [] Song Catheter: [] Assessment & Plan Assessment/Plan (1) Diabetic foot ulcer: (2) Osteomyelitis: PLAN: R foot osteo seen on MRI. Dr. Navarro consulted. Wound cx with staph x2, strep, GNR. Wound cx from 01/2023 with mssa and enterobacter. OR 03/02/[address] Navarro for 5th toe amp and partial 5th ray resection. Had reaction with zosyn in ED. Cont with vanc/cefepime/flagyl for now. Will follow 03/03/23 0732 <Electronically signed by Victorino Mixon MD> Cosigner Signature (if applicable): CC: ~ Signed [facility] Work Phone: [phone] 667-642706-23-[address] Tyler [facility] March 03, 2023 9:09am Note Date/Time March 03, 2023 9:01 am [facility] Medical Records Department [address] [place] [address] Progress Note - Hospitalist 03/03/23 0858 MR#: [id number] Acct: [id number] Name: REMI BELTRAN Rep #:[id number] : 1965 57 From: Macario calloway MD PCP: Dr. Gulshan Early MD Status:ADM I N Location: MS3 YE892-5 Subjective Subjective Doing well, ABIs demonstrate calcifications. Pain is fairly well controlled Objective Data Objective Data Vital Signs: Vital Signs Temp Pulse Resp BP Pulse Ox O2 Del Method O2 Flow Rate 98.1 F 74 16 141/71 H 95 Room Air 6 03/03/23 02:20 03/03/23 08:33 03/03/23 02:20 03/03/23 02:20 03/03/23 02:20 03/03/23 02:20 03/02/23 14:20 Oxygen Flow Rate (L/min) 6 Oxygen Delivery Method Room Air Weight: 244 lb 4.355 oz Body Mass Index (BMI) 37.1 Intake & Output: Intake and Output for Last 24 Hours 03/02/23 03/03/23 03/04/23 03:59 03:59 03:59 Intake Total 2680 / 2680 1080 / 1080 100 / 100 Output Total 300 / 300 500 / 500 Balance 2680 / 2680 780 / 780 -400 / -400 Lab / Micro Data Result Diagrams: 03/03/23 05:24 03/03/23 05:24 Labs: Laboratory Results - last 24 hr 03/02/23 05:50: TSH 0.07 L 03/02/23 05:50: Hemoglobin A1c 6.2 H 03/02/23 11:00: POC Glucose 92 03/02/23 14:38: POC Glucose 93 03/02/23 16:41: POC Glucose 112 H 03/02/23 21:06: POC Glucose 177 H 03/02/23 22:13: Vancomycin Trough 23.7 H 03/03/23 05:24: WBC 6.4, RBC 3.51 L, Hgb 9.9 L, Hct 30.9 L, MCV 88.0, MCH 28.2, MCHC 32.0 D, RDW Std Deviation 45.3 H, RDW Coeff of Kami 14.0, Plt Count 270, MPV 8.8, Immature Gran % (Auto) 0.200, Neut % (Auto) 70.3 H, Lymph % (Auto) 17.4L, Evangeline % (Auto) 9.8, Eos % (Auto) 2.0, Baso % (Auto) 0.3, Absolute Neuts (auto)4.5, Absolute Lymphs (auto) 1.12, Nucleated RBC % 0 03/03/23 05:24: Sodium 139, Potassium 3.6, Chloride 105, Carbon Dioxide 29.0, Anion Gap 5, BUN 17, Creatinine 0.63, Estim Creat Clear Calc 98.19, Est GFR (MDRD) Af Amer 125, Est GFR (MDRD) Non-Af 103, BUN/Creatinine Ratio 27.0 H, Glucose 101, Calcium 8.4 L 03/03/23 06:22: POC Glucose 105 Micro: Microbiology 03/01/23 12:45 Wound - Right Foot Gram Stain - Final 03/01/23 12:45 Wound - Right Foot Wound Culture - Preliminary Staphylococcus aureus Staphylococcus species Beta streptococcus Gram negative elizabeth Radiography Diagnostic Testing: Radiology Impression Extremity Arterial Study 03/01/23 15:27 Interpretation Summary Right HIMA 1.13, normal. Doppler/PVR waveforms of the right leg normal at rest. TBI diminished, pedal/digit disease vs spasm Left HIMA 1.09, normal. Doppler/PVR waveforms of the left leg normal at rest. Ordering Physician: Tereso Navarro Referring Physician: Gulshan Early Chi Performed By: Krystyna Rahman RVT Physical Exam Narrative General: Alert, Oriented x3, Cooperative, No apparent distress HEENT: Atraumatic, PERRLA, EOMI, Normocephalic Oral: Moist Mucosa Neck: Supple, No JVD Lungs: Diminished, Normal air movement, No rhonchi, No wheeze, No rales Cardiovascular: Regular rate, Regular Rhythm, Normal S1, Normal S2, No murmurs Abdomen: Soft, Non Tender, Non-Distended, No Hepato-splenomegaly Extremities: No edema, Capillary Refill Less than 3 Seconds Skin: Right lower extremity wound dressed Musculoskeletal: No Tenderness to Palpation of Joints or Extremities Neurological: Cranial nerves II-XII grossly intact, Motor Exam 5/5 strength throughout, Sensory exam intact to light touch and pain Psych/Mental Status: Normal Affect, Appropriate Assessment & Plan Assessment/Plan (1) Type 2 diabetes mellitus with foot ulcer: (2) Cellulitis of right lower limb: (3) Osteomyelitis: PLAN: Plan 1. Type 2 diabetes with diabetic foot ulcer and osteomyelitis of her right fifth metatarsal and neuropathy ? She did have what appeared to be an anaphylactic reaction to Zosyn ? We will consult infectious disease for antibiotic recommendations, awaiting cultures ? MRI with osteomyelitis, status post operative intervention 03/02/2023 ? We will continue with insulin long-acting and sliding scale and make adjustments as necessary ? Accu-Cheks ACHS ? We will hold her home diabetic medications ? Continue with Lyrica 2. HTN/HLD/peripheral artery disease ? Blood pressure are stable ? Can resume her home blood pressure medications ? We will hold aspirin secondary to possible surgical intervention ? Continue cilostazol, it appears her last ABIs were done in 2018 we will repeat ? Continue with statin 3. Hypothyroidism ? Stable ? Continue with Synthroid 4. GERD ? Stable ? Continue with PPI 5. Anxiety/depression ? Stable ? Continue with her home medications DVT: Lovenox Charges/Coding Visit Charges Inpatient E&M: 76342 Subs Hosp L2 03/03/23 0909 <Electronically signed by Macario Tyler MD> Cosigner Signature (if applicable): CC: ~ Signed [facility] Work Phone: [phone]) 329-157106-23-[address] Navarro [facility] March 03, 2023 7:35am Note Date/Time March 03, 2023 6:59 am [facility] Medical Records Department [address] [place] [address] Progress Note 03/03/23 0659 MR#: [id number] Acct: [id number] Name: REMI BELTRAN Rep #:[id number] : 1965 57 From: Tereso Navarro DPM PCP: Dr. Gulshan Early MD Status:ADM I N Location: [place] [address] Subjective Subjective Patient was seen this morning for follow up on left foot. She is resting in bed,no complaints. She did get up and walk on foot last evening. There was bleeding and bandage was reinforced. Objective Data Objective Data Vital Signs: Vital Signs Temp Pulse Resp BP Pulse Ox O2 Del Method O2 Flow Rate 98.1 F 79 16 141/71 H 95 Room Air 6 03/03/23 02:20 03/03/23 02:20 03/03/23 02:20 03/03/23 02:20 03/03/23 02:20 03/03/23 02:20 03/02/23 14:20 Oxygen Flow Rate (L/min) 6 Oxygen Delivery Method Room Air Weight: 110.8 kg Body Mass Index (BMI) 37.1 Intake & Output: Intake and Output for Last 24 Hours 03/01/23 03/02/23 03/03/23 23:59 23:59 23:59 Intake Total 1739 Output Total 800 / 800 Balance 1740 0 2019 -800 / -800 Lab / Micro Data Result Diagrams: 03/03/23 05:24 03/03/23 05:24 Labs: Laboratory Results - last 24 hr 03/02/23 05:50: TSH 0.07 L 03/02/23 05:50: Hemoglobin A1c 6.2 H 03/02/23 11:00: POC Glucose 92 03/02/23 14:38: POC Glucose 93 03/02/23 16:41: POC Glucose 112 H 03/02/23 21:06: POC Glucose 177 H 03/02/23 22:13: Vancomycin Trough 23.7 H 03/03/23 05:24: WBC 6.4, RBC 3.51 L, Hgb 9.9 L, Hct 30.9 L, MCV 88.0, MCH 28.2, MCHC 32.0 D, RDW Std Deviation 45.3 H, RDW Coeff of Kami 14.0, Plt Count 270, MPV 8.8, Immature Gran % (Auto) 0.200, Neut % (Auto) 70.3 H, Lymph % (Auto) 17.4L, Evangeline % (Auto) 9.8, Eos % (Auto) 2.0, Baso % (Auto) 0.3, Absolute Neuts (auto)4.5, Absolute Lymphs (auto) 1.12, Nucleated RBC % 0 03/03/23 05:24: Sodium 139, Potassium 3.6, Chloride 105, Carbon Dioxide 29.0, Anion Gap 5, BUN 17, Creatinine 0.63, Estim Creat Clear Calc 98.19, Est GFR (MDRD) Af Amer 125, Est GFR (MDRD) Non-Af 103, BUN/Creatinine Ratio 27.0 H, Glucose 101, Calcium 8.4 L 03/03/23 06:22: POC Glucose 105 Micro: Microbiology 03/01/23 12:45 Wound - Right Foot Gram Stain - Final 03/01/23 12:45 Wound - Right Foot Wound Culture - Preliminary Staphylococcus aureus Staphylococcus species Beta streptococcus Radiography Diagnostic Testing: Radiology Impression Extremity Arterial Study 03/01/23 15:27 Interpretation Summary Right HIMA 1.13, normal. Doppler/PVR waveforms of the right leg normal at rest. TBI diminished, pedal/digit disease vs spasm Left HIMA 1.09, normal. Doppler/PVR waveforms of the left leg normal at rest. Ordering Physician: Tereso Navarro Referring Physician: Gulshan Early Chi Performed By: Krystyna Rahman RVT Physical Exam Narrative Left foot s/p left 5th toe and 5th met head amputation - wound is health and viable, bleeding has stopped, erythema to foot significant improved, no maloder,no fluctuance, no crepitus present - CFT < 2 seconds to remaining toes, no evidence of complication at this time. Const alert, oriented x3 and no apparent distress Assessment & Plan Assessment/Plan (1) Cellulitis of right lower limb: (2) Diabetic foot ulcer: (3) Osteomyelitis: (4) Neuropathy: (5) Type 2 diabetes mellitus with foot ulcer: PLAN: Plan s/p left foot 5th toe and 5th metatarsal head amputation on 03/02/23 - site healing and foot improved today. Patient on IV antibiotic therapy per Infectious Disease - surgical culture results pending. Wound care: Dakins wet to dry gauze dressing changes daily - will likely plan for wound vac in future. No weightbearing right foot. LEAS for further evaluation of arterial flow - reviewed results, some PVD noted - will consult vascular. Hospital medicine following patient as well. Podiatry will continue to follow patient. 03/03/23 0735 <Electronically signed by Tereso Navarro DPM> Tereso Navarro DPM Cosigner Signature (if applicable): CC: ~ Signed [facility] Work Phone: 1([phone]) [phone] Consult note Author Pérez Ness [facility] March 02, 2023 11:04pm Note Date/Time March 02, 2023 11:[address] [facility] Medical Records Department [address] [place] [address] Pharmacokinetic/Renal -Consult 03/02/23 2301 MR#: [id number] Acct: [id number] Name: REMI BELTRAN Rep #:[id number] : 1965 57 From: éPrez Ness PCP: Dr. Gulshan Early MD Status:ADM I N Y Location: [place] [address] Consult Pharmacy has been consulted to manage selected antiobiotic: Vancomycin Type of Consult: Follow-up Suspected Infection: Osteomyelitis Prior Doses of Antibiotics Received/Current Regimen: Medications Discontinued Medications Vancomycin HCl 2,000 mg/ (Sodium Chloride) 540 mls @ 250 mls/hr IV Q12H RUTH Last Admin: 03/02/23 15:21 Dose: Infused Labs: Sodium 140 mmol/L (136-145) 03/02/23 05:50 Potassium 3.9 mmol/L (3.5-5.1) 03/02/23 05:50 Chloride 107 mmol/L (98-107) 03/02/23 05:50 Carbon Dioxide 28.0 mmol/L (21.0-32.0) 03/02/23 05:50 Anion Gap 5 (5-15) 03/02/23 05:50 BUN 18 mg/dL (7-18) 03/02/23 05:50 Creatinine 0.68 mg/dL (0.55-1.02) 03/02/23 05:50 Est GFR (MDRD) Af Amer 114 mL/min (>60) 03/02/23 05:50 Est GFR (MDRD) Non-Af 94 mL/min (>60) 03/02/23 05:50 BUN/Creatinine Ratio 26.4 RATIO (10-20) H 03/02/23 05:50 Glucose 130 mg/dL (74-106) H 03/02/23 05:50 Vancomycin Trough 23.7 ug/mL (5.0-15.0) H 03/02/23 22:13 Microbiology: Microbiology 03/01/23 12:45 Wound - Right Foot Gram Stain - Final 03/01/23 12:45 Wound - Right Foot Wound Culture - Preliminary Staphylococcus aureus Staphylococcus species Beta streptococcus Weight used for dosin.8 kg Estimated Creatinine Clearance: 118 Goal Trough: 15-20 mcg/mL Pharmacy Plan for Drug Dosing: Vancomycin trough level, drawn 11.25hrs post-dose, was high at 23.7. This was despite decrease in SCr (0.93 to 0.68). Current dose was held and a random levelwas ordered in 12 hours. Further dosing will be determined from this result. Pharmacy Service will continue to monitor and adjust dosing as required. Follow-Up Labs: Trough Vancomycin - random Labs to be done on [date and time ordered]: 03/03/23 @1000 random 03/02/231 <Electronically signed by Pérez simmons > Date _ Pérez Parker Signature (if applicable): Date CC: ~ Signed [facility] Work Phone: 1(410) 471-258506-22-2023 Procedure [facility] 03-02-[address] Mixon [facility] March 02, 2023 10:03am Note Date/Time March 02, 2023 10:0 3am [facility] Medical Records Department [address] [place] [address] Progress Note - Infect Disease 03/02/23 1002 MR#: [id number] Acct: [id number] Name: REMI BELTRAN Rep #:[id number] : 1965 57 From: Victorino waters MD PCP: Dr. Gulshan Early MD Status:ADM I N Location: [place] [address] Physical Exam Narrative Feeling ok, OR today. No fever, no issues with abx. No rash, no n/v/d. Const alert and no apparent distress General Appearance: cooperative Resp normal air movement and clear to auscultation bilaterally Cardio regular rate and regular rhythm GI soft to palpation, non-tender and non-distended Skin Skin Narrative: R foot wrapped ID ID: Route of nutrition/ use of supplements: [] Nutritional Intake: [] IV Site: [] Song Catheter: [] Assessment & Plan Assessment/Plan (1) Diabetic foot ulcer: (2) Osteomyelitis: PLAN: R foot osteo seen on MRI. Dr. Navarro consulted. Wound cx pending. Wound cx from 01/2023 with mssa and enterobacter. OR today. Had reaction with zosyn in ED. Will cover with vanc/cefepime/flagyl for now. Will follow 03/02/23 1003 <Electronically signed by Victorino Mixon MD> Cosigner Signature (if applicable): CC: ~ Signed [facility] Work Phone: [phone]) 294-945806-22-[address] Tyler [facility] March 02, 2023 8:45am Note Date/Time March 02, 2023 8:45 am [facility] Medical Records Department [address] [place] [address] Progress Note - Hospitalist 03/02/23 0842 MR#: [id number] Acct: [id number] Name: REMI BELRTAN Rep #:[id number] : 1965 57 From: Macario calloway MD PCP: Dr. Gulshan Early MD Status:ADM I N Location: [place] [address] Subjective Subjective Doing well, no issues overnight Objective Data Objective Data Vital Signs: Vital Signs Temp Pulse Resp BP Pulse Ox O2 Del Method O2 Flow Rate 97.9 F 86 16 133/62 H 94 Room Air 1 03/02/23 04:46 03/02/23 04:46 03/02/23 04:46 03/02/23 04:46 03/02/23 04:46 03/02/23 07:53 03/01/23 11:52 Oxygen Flow Rate (L/min) 1 Oxygen Delivery Method Room Air Weight: 244 lb 4.355 oz Body Mass Index (BMI) 37.1 Intake & Output: Intake and Output for Last 24 Hours 03/01/23 03/02/23 03/03/23 03:59 03:59 03:59 Intake Total 2680 / 2680 100 / 100 Balance 2680 / 2680 100 / 100 Lab / Micro Data Result Diagrams: 03/02/23 05:50 03/02/23 05:50 Labs: Laboratory Results - last 24 hr 03/01/23 09:56: WBC 8.5, RBC 3.93 L, Hgb 10.9 L, Hct 35.4 L, MCV 90.1, MCH 27.7,MCHC 30.8 L, RDW Std Deviation 46.1 H, RDW Coeff of Kami 13.9, Plt Count 313, MPV9.4, Immature Gran % (Auto) 0.400, Neut % (Auto) 75.8 H, Lymph % (Auto) 15.2 L, Evangeline % (Auto) 7.8, Eos % (Auto) 0.6, Baso % (Auto) 0.2, Absolute Neuts (auto) 6.4, Absolute Lymphs (auto) 1.29, Nucleated RBC % 0, ESR 54 H 03/01/23 09:56: Sodium 136, Potassium 4.3, Chloride 103, Carbon Dioxide 30.0, Anion Gap 3 L, BUN 23 H, Creatinine 0.93, Estim Creat Clear Calc 66.51, Est GFR (MDRD) Af Amer 79, Est GFR (MDRD) Non-Af 66, BUN/Creatinine Ratio 24.7 H, Glucose 204 H, Calcium 8.8, Total Bilirubin 0.60, AST 37, ALT 46, Alkaline Phosphatase 107, C- React Prot Ext Range 116.00 H, Total Protein 7.6, Albumin 2.8L, Globulin 4.8 H, Albumin/Globulin Ratio 0.6 L 03/01/23 12:45: S.aureus Protein A PCR POSITIVE H, MRSA (PCR) Negative 03/01/23 16:18: POC Glucose 172 H 03/01/23 21:14: POC Glucose 180 H 03/02/23 05:50: WBC 6.4, RBC 3.46 L, Hgb 9.4 L, Hct 30.9 L, MCV 89.3, MCH 27.2, MCHC 30.4 L, RDW Std Deviation 45.6 H, RDW Coeff of Kami 14.0, Plt Count 252, MPV9.0, Immature Gran % (Auto) 0.500, Neut % (Auto) 70.5 H, Lymph % (Auto) 18.8 L, Evangeline % (Auto) 8.2, Eos % (Auto) 1.7, Baso % (Auto) 0.3, Absolute Neuts (auto) 4.5, Absolute Lymphs (auto) 1.20, Nucleated RBC % 0 03/02/23 05:50: Sodium 140, Potassium 3.9, Chloride 107, Carbon Dioxide 28.0, Anion Gap 5, BUN 18, Creatinine 0.68, Estim Creat Clear Calc 90.97, Est GFR (MDRD) Af Amer 114, Est GFR (MDRD) Non-Af 94, BUN/Creatinine Ratio 26.4 H, [id number] H, Calcium 8.0 L 03/02/23 06:20: POC Glucose 124 H Radiography Diagnostic Testing: Radiology Impression Foot X-Ray 03/01/23 10:00 IMPRESSION: 1. Erosion of the head of the fifth metatarsal and the fifth toe consistent with osteomyelitis. 2. Soft tissue ulceration near the fifth metatarsal phalangeal joint. Electronically Signed: Zack Montenegro MD at 10:20 EDT , Lower Extremity MRI 03/01/23 15:21 IMPRESSION: 1. Fifth digit osteomyelitis as above. 2. No soft tissue abscess or phlegmon. Electronically Signed: Oneil Botello MD at 1:13 EDT , ADDENDUM: 03/02/23 0124 IMPRESSION: 1. Fifth digit osteomyelitis as above. 2. No soft tissue abscess or phlegmon. N.B. : lenka bowen RN, confirmed on 03/02/2023 01:17:59 (ET) that the healthcare facility has received the radiology report. Electronically Signed: Oneil Botello MD at 1:13 EDT , Physical Exam Narrative General: Alert, Oriented x3, Cooperative, No apparent distress HEENT: Atraumatic, PERRLA, EOMI, Normocephalic Oral: Moist Mucosa Neck: Supple, No JVD Lungs: Diminished, Normal air movement, No rhonchi, No wheeze, No rales Cardiovascular: Regular rate, Regular Rhythm, Normal S1, Normal S2, No murmurs Abdomen: Soft, Non Tender, Non-Distended, No Hepato-splenomegaly Extremities: No edema, Capillary Refill Less than 3 Seconds Skin: Right lower extremity wound dressed Musculoskeletal: No Tenderness to Palpation of Joints or Extremities Neurological: Cranial nerves II-XII grossly intact, Motor Exam 5/5 strength throughout, Sensory exam intact to light touch and pain Psych/Mental Status: Normal Affect, Appropriate Assessment & Plan Assessment/Plan (1) Type 2 diabetes mellitus with foot ulcer: (2) Cellulitis of right lower limb: (3) Osteomyelitis: PLAN: Plan 1. Type 2 diabetes with diabetic foot ulcer and osteomyelitis of her right fifth metatarsal and neuropathy ? She did have what appeared to be an anaphylactic reaction to Zosyn ? We will consult infectious disease for antibiotic recommendations ? MRI with osteomyelitis, plan for operative treatment today ? We will continue with insulin long-acting and sliding scale and make adjustments as necessary ? Accu-Cheks ACHS ? We will hold her home diabetic medications ? Continue with Lyrica 2. HTN/HLD/peripheral artery disease ? Blood pressure are stable ? Can resume her home blood pressure medications ? We will hold aspirin secondary to possible surgical intervention ? Continue cilostazol, it appears her last ABIs were done in 2018 we will repeat ? Continue with statin 3. Hypothyroidism ? Stable ? Continue with Synthroid 4. GERD ? Stable ? Continue with PPI 5. Anxiety/depression ? Stable ? Continue with her home medications DVT: Lovenox Charges/Coding Visit Charges Inpatient E&M: 50136 Subs Hosp L2 03/02/23 0845 <Electronically signed by Macario Tyler MD> Cosigner Signature (if applicable): CC: ~ Signed [facility] Work Phone: 1([phone]) 143-607606-21-2023 History and physical note Author Dr. Tyler [facility] March 01, 2023 4:02pm Note Date/Time March 01, 2023 3:45 pm [facility] Medical Records Department [address] [place] [address] H&P Exam - Hospitalist 03/01/23 1538 MR#: [id number] Acct: [id number] Name: REMI BELTRAN Rep #:[id number] : 1965 57 From: Macario calloway MD PCP: Dr. Gulshan Early MD Status:ADM I N Location: [facility] [id number] HPI - General General Date of Admission: 03/01/23 HPI Narrative REMI BELTRAN, is a 57 F who presents to the hospital with a right foot osteo. She has a history of diabetes and was following up with podiatry secondary to a right foot wound that has since progressed. 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 In the ER x-ray demonstrated right foot osteo, she does not have a leukocytosisand she is afebrile. Unfortunately, she was started on Zosyn and had what appeared to the ED physician to be an anaphylactic reaction and she was treated appropriately with epinephrine. She never lost her airway and is completely recovered. [facility] Medical History Anxiety Arthritis Asthma Asthma Back pain Broken teeth Cardiology follow-up encounter Chronic steroid use CPAP (continuous positive airway pressure) dependence Depression Dermatitis Diabetes type 2, uncontrolled Dietary restriction Difficulty balancing when standing Edema Essential (primary) hypertension Fibromyalgia GERD (gastroesophageal reflux disease) Hammertoe of left foot History of pain when walking History of stress test Hypergammaglobulinemia Hyperlipemia Hypertension Hypothyroidism Iron deficiency Leg cramping Morbid obesity with BMI of 40.0-44.9, adult Multinodular thyroid Non-smoker Normal echocardiogram Osteomyelitis of toe Other specified peripheral vascular diseases PAD (peripheral artery disease) Shortness of breath Skin ulcer of right foot including toes with fat layer exposed Venous stasis dermatitis of both lower extremities Wears glasses Home Medications celecoxib 200 mg capsule 200 mg PO DAILY ARTHRITIS/INFLAMMATION 10/18/18 [History Last Taken 02/28/23] loratadine 10 mg capsule 10 mg PO DAILY ALLERGIES 10/18/18 [History Last Taken 02/28/23] metformin 1,000 mg tablet 1,000 mg PO BID DIABETES 10/18/18 [History Last Taken 02/28/23] montelukast 10 mg tablet 10 mg PO QHS ASTHMA/ALLERGIES 10/18/18 [History Last Taken 02/28/23] omeprazole 40 mg capsule,delayed release 40 mg PO DAILY ACID REFLUX 10/18/18 [History Last Taken 02/28/23] calcium carbonate 500 mg-vitamin D3 10 mcg (400 unit) tablet 1 ea PO DAILY SUPPLEMENT 10/29/19 [History Last Taken 02/28/23] paroxetine HCl 40 mg tablet 40 mg PO DAILY DEPRESSION 10/29/19 [History Last Taken 02/28/23] potassium chloride 20 mEq tablet,extended release(part/cryst) 20 meq PO DAILY SUPPLEMENT 10/29/19 [History Last Taken 02/28/23] pregabalin 150 mg capsule 150 mg PO TID NERVE PAIN 10/29/19 [History Last Taken 02/28/23] aspirin 81 mg tablet,delayed release (Adult Low Dose Aspirin) 81 mg PO DAILY HEART HEALTH 07/21/20 [History Last Taken 02/28/23] cilostazol 100 mg tablet 100 mg PO DAILY CHOLESTEROL 07/21/20 [History Last Taken 02/28/23] levothyroxine 175 mcg tablet 175 mcg PO DAILY THYROID 07/21/20 [History Last Taken 02/28/23] metoprolol succinate 200 mg tablet,extended release 24 hr 200 mg PO DAILY BLOOD PRESSURE 07/21/20 [History Last Taken 02/28/23] albuterol sulfate 90 mcg/actuation aerosol inhaler (ProAir HFA) 1 inh [id number] PRN SHORTNESS OF BREATH 08/26/22 [History Last Taken 2 Days Ago ~02/27/23] ferrous sulfate 325 mg (65 mg iron) tablet (iron) 325 mg PO DAILY ANEMIA 08/26/22 [History Last Taken 02/28/23] rosuvastatin 40 mg tablet (Crestor) 40 mg PO DAILY CHOLESTEROL 08/26/22 [History Last Taken 02/28/23] pen needle, diabetic 32 gauge x 5/32" (BD Ultra-Fine Catalina Pen Needle) #100 ea 02/13/23 [Rx Last Taken Unknown] dapagliflozin propanediol 10 mg tablet (Farxiga) 10 mg PO DAILY DIABETES 03/01/23 [History Last Taken 02/28/23] glimepiride 4 mg tablet 4 mg PO BID DIABETES 03/01/23 [History Last Taken 02/28/23] insulin detemir U-100 100 unit/mL (3 mL) subcutaneous pen (Levemir FlexPen) 55 unit subcut DAILY DIABETES 03/01/23 [History Last Taken 02/28/23] ipratropium bromide 42 mcg (0.06 %) nasal spray 2 spray intranasal DAILY NASAL DRAINAGE 03/01/23 [History Last Taken 02/28/23] losartan 100 mg tablet 100 mg PO DAILY BLOOD PRESSURE 03/01/23 [History Last Taken 02/28/23] multivitamin 1 tab PO DAILY HEALTH MAINTENANCE 03/01/23 [History Last Taken 02/28/23] tirzepatide 2.5 mg/0.5 mL subcutaneous pen injector (Mounjaro) 2.5 mg subcut WE DIABETES 03/01/23 [History Last Taken 02/22/23] trazodone 100 mg tablet 200 mg PO QHS SLEEP 03/01/23 [History Last Taken 02/28/23] vitamin B complex 1 cap PO DAILY SUPPLEMENT 03/01/23 [History Last Taken 02/28/23] Allergy/AdvReac Type Severity Reaction Status Date / Time piperacillin [From Zosyn] Allergy Severe Anaphylaxis Verified 03/01/23 10:39 tazobactam [From Zosyn] Allergy Severe Anaphylaxis Verified 03/01/23 10:39 sulfamethoxazole Allergy Unknown Anaphylaxis Verified 03/01/23 13:34 [From Bactrim] trimethoprim [From Bactrim] Allergy Unknown Anaphylaxis Verified 03/01/23 13:34 latex Allergy Rash Verified 03/01/23 09:27 tetanus and diphtheria Allergy Anaphylaxis Verified 03/01/23 09:27 toxoids [Tetanus&Diphtheria Toxoid] flea medicine Allergy Anaphylaxis, Uncoded 03/01/23 09:27 Diarrhea Family History Mother Diabetes Dementia Father Diabetes Myocardial infarction Surgical History H/O amputation of lesser toe (05/05/17) H/O arthroscopic knee surgery (11/2019) History of cholecystectomy History of nasal septoplasty History of thyroidectomy Hx of total knee arthroplasty Social History Smoking Status: Never smoker alcohol intake: current alcohol intake frequency: holidays/special occasions only ROS Constitutional Constitutional: Denies chills, fatigue, fever(s) or malaise Eyes Eyes: Denies blurry vision ENT HEENT: Denies headache(s) or nasal discharge Cardiovascular Cardiovascular: Denies chest pain, dyspnea on exertion or syncope Respiratory/Chest Respiratory/Chest: Denies cough, shortness of breath at rest or shortness of breath with exertion Gastrointestinal Gastrointestinal: Denies constipation, diarrhea, nausea or vomiting Genitourinary Genitourinary: Denies dysuria Integumentary Integumentary: Reports wounds Neurologic Neurologic: Denies focal weakness, numbness or tremor(s) Psychiatric Psychiatric: Denies anxiety or depression Vital Signs Vital Signs Vital Signs: 03/01/23 09:24 03/01/23 10:36 03/01/23 10:55 Temperature 97.6 F L 98.1 F Temperature Source Temporal Oral Pulse Rate 74 93 88 Respiratory Rate 16 31 H 20 H Respiratory Effort Blood Pressure 122/77 H 101/89 H 97/53 L Blood Pressure Mean 92 93 67 Blood Pressure Source Blood Pressure Position Blood Pressure Location Pulse Ox 100 79 92 Oxygen Delivery Method Room Air Room Air Nasal Cannula Oxygen Flow Rate (L/min) 5 03/01/23 11:10 03/01/23 11:00 03/01/23 12:27 Temperature 98 F 97.8 F Temperature Source Temporal Oral Pulse Rate 85 87 86 Respiratory Rate 22 H 19 H 18 Respiratory Effort Blood Pressure 108/69 112/59 L 142/80 H Blood Pressure Mean 82 76 100 Blood Pressure Source Monitor Blood Pressure Position Sitting Blood Pressure Location Left Arm Pulse Ox 95 98 98 Oxygen Delivery Method Nasal Cannula Nasal Cannula Room Air Oxygen Flow Rate (L/min) 3 3 03/01/23 11:52 03/01/23 12:00 03/01/23 12:46 Temperature 97.8 F 97.7 F L Temperature Source Temporal Temporal Pulse Rate 89 91 Respiratory Rate 22 H 21 H Respiratory Effort Normal Blood Pressure 121/78 H 117/82 H Blood Pressure Mean 92 93 Blood Pressure Source Blood Pressure Position Blood Pressure Location Pulse Ox 98 97 Oxygen Delivery Method Nasal Cannula Room Air Room Air Oxygen Flow Rate (L/min) 1 Weight Weight: 244 lb 4.355 oz Body Mass Index (BMI) 37.1 Physical Exam Narrative General: Alert, Oriented x3, Cooperative, No apparent distress HEENT: Atraumatic, PERRLA, EOMI, Normocephalic Oral: Moist Mucosa Neck: Supple, No JVD Lungs: Diminished, Normal air movement, No rhonchi, No wheeze, No rales Cardiovascular: Regular rate, Regular Rhythm, Normal S1, Normal S2, No murmurs Abdomen: Soft, Non Tender, Non-Distended, No Hepato-splenomegaly Extremities: No edema, Capillary Refill Less than 3 Seconds Skin: Right lower extremity wound dressed Musculoskeletal: No Tenderness to Palpation of Joints or Extremities Neurological: Cranial nerves II-XII grossly intact, Motor Exam 5/5 strength throughout, Sensory exam intact to light touch and pain Psych/Mental Status: Normal Affect, Appropriate Results Lab / Micro Data Result Diagrams: 03/01/23 09:56 03/01/23 09:56 Labs: Laboratory Results - last 24 hr 03/01/23 09:56: WBC 8.5, RBC 3.93 L, Hgb 10.9 L, Hct 35.4 L, MCV 90.1, MCH 27.7,MCHC 30.8 L, RDW Std Deviation 46.1 H, RDW Coeff of Kami 13.9, Plt Count 313, MPV9.4, Immature Gran % (Auto) 0.400, Neut % (Auto) 75.8 H, Lymph % (Auto) 15.2 L, Evangeline % (Auto) 7.8, Eos % (Auto) 0.6, Baso % (Auto) 0.2, Absolute Neuts (auto) 6.4, Absolute Lymphs (auto) 1.29, Nucleated RBC % 0, ESR 54 H 03/01/23 09:56: Sodium 136, Potassium 4.3, Chloride 103, Carbon Dioxide 30.0, Anion Gap 3 L, BUN 23 H, Creatinine 0.93, Estim Creat Clear Calc 66.51, Est GFR (MDRD) Af Amer 79, Est GFR (MDRD) Non-Af 66, BUN/Creatinine Ratio 24.7 H, Glucose 204 H, Calcium 8.8, Total Bilirubin 0.60, AST 37, ALT 46, Alkaline Phosphatase 107, C- React Prot Ext Range 116.00 H, Total Protein 7.6, Albumin 2.8L, Globulin 4.8 H, Albumin/Globulin Ratio 0.6 L Radiology Impression Foot X-Ray 03/01/23 10:00 IMPRESSION: 1. Erosion of the head of the fifth metatarsal and the fifth toe consistent with osteomyelitis. 2. Soft tissue ulceration near the fifth metatarsal phalangeal joint. Electronically Signed: Zack Montenegro MD at 10:20 EDT , Assessment & Plan Assessment/Plan (1) Type 2 diabetes mellitus with foot ulcer: (2) Cellulitis of right lower limb: (3) Osteomyelitis: PLAN: Plan 1. Type 2 diabetes with diabetic foot ulcer and osteomyelitis of her right fifth metatarsal and neuropathy ? She did have what appeared to be an anaphylactic reaction to Zosyn ? We will consult infectious disease for antibiotic recommendations ? We will consult podiatry for wound management ? We will continue with insulin long-acting and sliding scale and make adjustments as necessary ? Accu-Cheks ACHS ? We will hold her home diabetic medications ? Continue with Lyrica 2. HTN/HLD/peripheral artery disease ? Blood pressure are stable ? Can resume her home blood pressure medications ? We will hold aspirin secondary to possible surgical intervention ? Continue cilostazol, it appears her last ABIs were done in 2018 we will repeat ? Continue with statin 3. Hypothyroidism ? Stable ? Continue with Synthroid 4. GERD ? Stable ? Continue with PPI 5. Anxiety/depression ? Stable ? Continue with her home medications DVT: Lovenox 75 minutes was spent on direct patient care as well as chart review and collaboration with colleagues Charges/Coding Visit Charges Inpatient E&M: 31662 Init Hosp L3 03/01/23 1602 <Electronically signed by Macario Tyler MD> Cosigner Signature (if applicable): CC: Dr. Macario Tyler MD; Dr. Gulshan Early MD~ Signed [facility] Work Phone: 1(401) 688-561206-21-[address] Navarro [facility] March 01, 2023 3:27pm Note Date/Time March 01, 2023 3:27 pm [facility] Medical Records Department [address] [place] [address] Consultation 03/01/23 1522 MR#: [id number] Acct: [id number] Name: REMI BELTRAN Rep #:[id number] : 1965 57 From: Tereso Navarro DPM PCP: Dr. Gulshan Early MD Status:ADM I N Location: MS3 AZ669-9 Assessment & Plan Assessment/Plan (1) Cellulitis of right lower limb: (2) Diabetic foot ulcer: (3) Osteomyelitis: (4) Neuropathy: (5) Type 2 diabetes mellitus with foot ulcer: PLAN: Plan Patient has been admitted. She has been started on IV antibiotics and InfectiousDisease is following. A culture has been obtained and is pending. MRI was ordered for further workup. Will likely plan for OR debridement, however would like to see MRI first. Wound care: Betadine soln, gauze, kerlix and nirav - change daily. No weightbearing right foot. LEAS for further evaluation of artieral flow. Hospital medicine following patient as well. Podiatry will continue to follow patient. HPI Consult Data Date of Consult: 03/01/23 HPI Narrative HPI Narrative: REMI BELTRAN, is a 57 F who was sent from my office for right foot infection with concern for 5th metatarsal osteomyelitis. She has been followed for wound which was healing, however she missed last appointment in office and she relateslast week foot turned red, swollen and there is bad oder from it. On exam she was sent to ER to be admitted and for further work up and management. [facility] Medical History Anxiety Arthritis Asthma Asthma Back pain Broken teeth Cardiology follow-up encounter Chronic steroid use CPAP (continuous positive airway pressure) dependence Depression Dermatitis Diabetes type 2, uncontrolled Dietary restriction Difficulty balancing when standing Edema Essential (primary) hypertension Fibromyalgia GERD (gastroesophageal reflux disease) Hammertoe of left foot History of pain when walking History of stress test Hypergammaglobulinemia Hyperlipemia Hypertension Hypothyroidism Iron deficiency Leg cramping Morbid obesity with BMI of 40.0-44.9, adult Multinodular thyroid Non-smoker Normal echocardiogram Osteomyelitis of toe Other specified peripheral vascular diseases PAD (peripheral artery disease) Shortness of breath Skin ulcer of right foot including toes with fat layer exposed Venous stasis dermatitis of both lower extremities Wears glasses Home Medications celecoxib 200 mg capsule 200 mg PO DAILY ARTHRITIS/INFLAMMATION 10/18/18 [History Last Taken 02/28/23] loratadine 10 mg capsule 10 mg PO DAILY ALLERGIES 10/18/18 [History Last Taken 02/28/23] metformin 1,000 mg tablet 1,000 mg PO BID DIABETES 10/18/18 [History Last Taken 02/28/23] montelukast 10 mg tablet 10 mg PO QHS ASTHMA/ALLERGIES 10/18/18 [History Last Taken 02/28/23] omeprazole 40 mg capsule,delayed release 40 mg PO DAILY ACID REFLUX 10/18/18 [History Last Taken 02/28/23] calcium carbonate 500 mg-vitamin D3 10 mcg (400 unit) tablet 1 ea PO DAILY SUPPLEMENT 10/29/19 [History Last Taken 02/28/23] paroxetine HCl 40 mg tablet 40 mg PO DAILY DEPRESSION 10/29/19 [History Last Taken 02/28/23] potassium chloride 20 mEq tablet,extended release(part/cryst) 20 meq PO DAILY SUPPLEMENT 10/29/19 [History Last Taken 02/28/23] pregabalin 150 mg capsule 150 mg PO TID NERVE PAIN 10/29/19 [History Last Taken 02/28/23] aspirin 81 mg tablet,delayed release (Adult Low Dose Aspirin) 81 mg PO DAILY HEART HEALTH 07/21/20 [History Last Taken 02/28/23] cilostazol 100 mg tablet 100 mg PO DAILY CHOLESTEROL 07/21/20 [History Last Taken 02/28/23] levothyroxine 175 mcg tablet 175 mcg PO DAILY THYROID 07/21/20 [History Last Taken 02/28/23] metoprolol succinate 200 mg tablet,extended release 24 hr 200 mg PO DAILY BLOOD PRESSURE 07/21/20 [History Last Taken 02/28/23] albuterol sulfate 90 mcg/actuation aerosol inhaler (ProAir HFA) 1 inh [id number] PRN SHORTNESS OF BREATH 08/26/22 [History Last Taken 2 Days Ago ~02/27/23] ferrous sulfate 325 mg (65 mg iron) tablet (iron) 325 mg PO DAILY ANEMIA 08/26/22 [History Last Taken 02/28/23] rosuvastatin 40 mg tablet (Crestor) 40 mg PO DAILY CHOLESTEROL 08/26/22 [History Last Taken 02/28/23] pen needle, diabetic 32 gauge x 5/32" (BD Ultra-Fine Catalina Pen Needle) #100 ea 02/13/23 [Rx Last Taken Unknown] dapagliflozin propanediol 10 mg tablet (Farxiga) 10 mg PO DAILY DIABETES 03/01/23 [History Last Taken 02/28/23] glimepiride 4 mg tablet 4 mg PO BID DIABETES 03/01/23 [History Last Taken 02/28/23] insulin detemir U-100 100 unit/mL (3 mL) subcutaneous pen (Levemir FlexPen) 55 unit subcut DAILY DIABETES 03/01/23 [History Last Taken 02/28/23] ipratropium bromide 42 mcg (0.06 %) nasal spray 2 spray intranasal DAILY NASAL DRAINAGE 03/01/23 [History Last Taken 02/28/23] losartan 100 mg tablet 100 mg PO DAILY BLOOD PRESSURE 03/01/23 [History Last Taken 02/28/23] multivitamin 1 tab PO DAILY HEALTH MAINTENANCE 03/01/23 [History Last Taken 02/28/23] tirzepatide 2.5 mg/0.5 mL subcutaneous pen injector (Mounjaro) 2.5 mg subcut WE DIABETES 03/01/23 [History Last Taken 02/22/23] trazodone 100 mg tablet 200 mg PO QHS SLEEP 03/01/23 [History Last Taken 02/28/23] vitamin B complex 1 cap PO DAILY SUPPLEMENT 03/01/23 [History Last Taken 02/28/23] Allergy/AdvReac Type Severity Reaction Status Date / Time piperacillin [From Zosyn] Allergy Severe Anaphylaxis Verified 03/01/23 10:39 tazobactam [From Zosyn] Allergy Severe Anaphylaxis Verified 03/01/23 10:39 sulfamethoxazole Allergy Unknown Anaphylaxis Verified 03/01/23 13:34 [From Bactrim] trimethoprim [From Bactrim] Allergy Unknown Anaphylaxis Verified 03/01/23 13:34 latex Allergy Rash Verified 03/01/23 09:27 tetanus and diphtheria Allergy Anaphylaxis Verified 03/01/23 09:27 toxoids [Tetanus&Diphtheria Toxoid] flea medicine Allergy Anaphylaxis, Uncoded 03/01/23 09:27 Diarrhea Family History Mother Diabetes Dementia Father Diabetes Myocardial infarction Surgical History H/O amputation of lesser toe (05/05/17) H/O arthroscopic knee surgery (11/2019) History of cholecystectomy History of nasal septoplasty History of thyroidectomy Hx of total knee arthroplasty Social History Smoking Status: Never smoker alcohol intake: current alcohol intake frequency: holidays/special occasions only Physical Exam Narrative per exam in office this morning there was noted to be cellulitis to the right foot, there was noted to be open wound to the lateral 5th met head right foot down to nonviable fascia layer, there was probe to bone to the 5th metatarsal head, there was significant maloder present, no visible abscess or marita gangrene, no evidence of acute ischemia noted. Lab / Micro Data Result Diagrams: 03/01/23 09:56 03/01/23 09:56 Labs: Laboratory Results - last 24 hr 03/01/23 09:56: WBC 8.5, RBC 3.93 L, Hgb 10.9 L, Hct 35.4 L, MCV 90.1, MCH 27.7,MCHC 30.8 L, RDW Std Deviation 46.1 H, RDW Coeff of Kami 13.9, Plt Count 313, MPV9.4, Immature Gran % (Auto) 0.400, Neut % (Auto) 75.8 H, Lymph % (Auto) 15.2 L, Evangeline % (Auto) 7.8, Eos % (Auto) 0.6, Baso % (Auto) 0.2, Absolute Neuts (auto) 6.4, Absolute Lymphs (auto) 1.29, Nucleated RBC % 0, ESR 54 H 03/01/23 09:56: Sodium 136, Potassium 4.3, Chloride 103, Carbon Dioxide 30.0, Anion Gap 3 L, BUN 23 H, Creatinine 0.93, Estim Creat Clear Calc 66.51, Est GFR (MDRD) Af Amer 79, Est GFR (MDRD) Non-Af 66, BUN/Creatinine Ratio 24.7 H, Glucose 204 H, Calcium 8.8, Total Bilirubin 0.60, AST 37, ALT 46, Alkaline Phosphatase 107, C- React Prot Ext Range 116.00 H, Total Protein 7.6, Albumin 2.8 L, Globulin 4.8 H, Albumin/Globulin Ratio 0.6 L Radiology Impression Foot X-Ray 03/01/23 10:00 IMPRESSION: 1. Erosion of the head of the fifth metatarsal and the fifth toe consistent with osteomyelitis. 2. Soft tissue ulceration near the fifth metatarsal phalangeal joint. Electronically Signed: Zack Montenegro MD at 10:20 EDT , 03/01/23 2149 <Electronically signed by Tereso Navarro DPM> Cosigner Signature (if applicable): CC: ROXANNE Navarro; Dr. Victorino Mixon MD; Dr. Gulshan Early MD~ Signed [facility] Work Phone: 1(609) 457-701006-21-[address] Tyler [facility] March 01, 2023 3:17pm Note Date/Time March 01, 2023 1:[address] [facility] Medical Records Department [address] [place] [id number] Pharmacokinetic/Renal -Consult 03/01/23 1348 MR#: [id number] Acct: [id number] Name: REMI BELTRAN Rep #:[id number] : 1965 57 From: Ochoa solis PCP: Dr. Gulshan Early MD Status:ADM I N Y Location: [place] [address] Consult Pharmacy has been consulted to manage selected antiobiotic: Vancomycin Type of Consult: New start Suspected Infection: Osteomyelitis Prior Doses of Antibiotics Received/Current Regimen: received vanc 1500mg IV x1 in E.D. starting at 11:29 today Labs: Sodium 136 mmol/L (136-145) 03/01/23 09:56 Potassium 4.3 mmol/L (3.5-5.1) 03/01/23 09:56 Chloride 103 mmol/L (98-107) 03/01/23 09:56 Carbon Dioxide 30.0 mmol/L (21.0-32.0) 03/01/23 09:56 Anion Gap 3 (5-15) L 03/01/23 09:56 BUN 23 mg/dL (7-18) H 03/01/23 09:56 Creatinine 0.93 mg/dL (0.55-1.02) 03/01/23 09:56 Est GFR (MDRD) Af Amer 79 mL/min (>60) 03/01/23 09:56 Est GFR (MDRD) Non-Af 66 mL/min (>60) 03/01/23 09:56 BUN/Creatinine Ratio 24.7 RATIO (10-20) H 03/01/23 09:56 Glucose 204 mg/dL (74-106) H 03/01/23 09:56 Weight used for dosin.8 kg Estimated Creatinine Clearance: 86 ml/min Goal Trough: 15-20 mcg/mL Pharmacy Plan for Drug Dosing: Starting 12 hours after the dose in E.D., continue with vanc 2000mg IV q12h per [facility] dosing protocol. Will check a trough before the 4th total dose. The patient's CrCl of 86 ml/min was calculated using an adjusted body weight. Pharmacy Service will continue to monitor and adjust dosing as required. Follow-Up Labs: Trough Vancomycin Labs to be done on [date and time ordered]: 03/02/23 22:30 03/01/23 1354 <Electronically signed by Ochoa cain > Date _ Ochoa Patel 03/01/23 1517 <Electronically signed by Macario villa MD> Cosigner Signature (if applicable): Date Macario Tyler MD CC: ~ Signed [facility] Work Phone: 1(451) 442-150606-21-[address] Mixon [facility] March 01, 2023 1:42pm Note Date/Time March 01, 2023 1:42 pm [facility] Medical Records Department [address] [place] [address] Consultation - Infectious Dx 03/01/23 1336 MR#: [id number] Acct: [id number] Name: REMI BELTRAN Rep #:[id number] : 1965 57 From: Victorino waters MD PCP: Dr. Gulshan Early MD Status:ADM I N Location: MS3 LV145-4 Assessment & Plan Assessment/Plan (1) Diabetic foot ulcer: (2) Osteomyelitis: PLAN: R foot osteo seen on xray. Dr. Navarro consulted. Wound cx pending. Wound cx from 01/2023 with mssa and enterobacter. Will check bcx x2. May need MRI. Had reaction with zosyn in ED. Will cover with vanc/cefepime/flagyl for now. Will follow, thank you HPI Consult Data Date of Consult: 03/01/23 HPI Narrative Reason for Consultation: osteo HPI Narrative: REMI BELTRAN, is a 57 F with DM (last A1c 6.4), PAD, presented with one week worsening R plantar wound, has been seeing Dr. Navarro. New redness, drainage, foul odor. No recent abx. One day h/o some chills. Came to ED, given vanc/zosyn, but developed some flushing, n/v/d with zosyn; denies any trouble breathing. Abx changed to vanc/levaquin, admitted. Full ROS performed and neg except as noted above. [facility] Medical History Anxiety Arthritis Asthma Asthma Back pain Broken teeth Cardiology follow-up encounter Chronic steroid use CPAP (continuous positive airway pressure) dependence Depression Dermatitis Diabetes type 2, uncontrolled Dietary restriction Difficulty balancing when standing Edema Essential (primary) hypertension Fibromyalgia GERD (gastroesophageal reflux disease) Hammertoe of left foot History of pain when walking History of stress test Hypergammaglobulinemia Hyperlipemia Hypertension Hypothyroidism Iron deficiency Leg cramping Morbid obesity with BMI of 40.0-44.9, adult Multinodular thyroid Non-smoker Normal echocardiogram Osteomyelitis of toe Other specified peripheral vascular diseases PAD (peripheral artery disease) Shortness of breath Skin ulcer of right foot including toes with fat layer exposed Venous stasis dermatitis of both lower extremities Wears glasses Home Medications celecoxib 200 mg capsule 200 mg PO DAILY ARTHRITIS/INFLAMMATION 10/18/18 [History Last Taken 02/28/23] loratadine 10 mg capsule 10 mg PO DAILY ALLERGIES 10/18/18 [History Last Taken 02/28/23] metformin 1,000 mg tablet 1,000 mg PO BID DIABETES 10/18/18 [History Last Taken 02/28/23] montelukast 10 mg tablet 10 mg PO QHS ASTHMA/ALLERGIES 10/18/18 [History Last Taken 02/28/23] omeprazole 40 mg capsule,delayed release 40 mg PO DAILY ACID REFLUX 10/18/18 [History Last Taken 02/28/23] calcium carbonate 500 mg-vitamin D3 10 mcg (400 unit) tablet 1 ea PO DAILY SUPPLEMENT 10/29/19 [History Last Taken 02/28/23] paroxetine HCl 40 mg tablet 40 mg PO DAILY DEPRESSION 10/29/19 [History Last Taken 02/28/23] potassium chloride 20 mEq tablet,extended release(part/cryst) 20 meq PO DAILY SUPPLEMENT 10/29/19 [History Last Taken 02/28/23] pregabalin 150 mg capsule 150 mg PO TID NERVE PAIN 10/29/19 [History Last Taken 02/28/23] aspirin 81 mg tablet,delayed release (Adult Low Dose Aspirin) 81 mg PO DAILY HEART HEALTH 07/21/20 [History Last Taken 02/28/23] cilostazol 100 mg tablet 100 mg PO DAILY CHOLESTEROL 07/21/20 [History Last Taken 02/28/23] levothyroxine 175 mcg tablet 175 mcg PO DAILY THYROID 07/21/20 [History Last Taken 02/28/23] metoprolol succinate 200 mg tablet,extended release 24 hr 200 mg PO DAILY BLOOD PRESSURE 07/21/20 [History Last Taken 02/28/23] albuterol sulfate 90 mcg/actuation aerosol inhaler (ProAir HFA) 1 inh [id number] PRN SHORTNESS OF BREATH 08/26/22 [History Last Taken 2 Days Ago ~02/27/23] ferrous sulfate 325 mg (65 mg iron) tablet (iron) 325 mg PO DAILY ANEMIA 08/26/22 [History Last Taken 02/28/23] rosuvastatin 40 mg tablet (Crestor) 40 mg PO DAILY CHOLESTEROL 08/26/22 [History Last Taken 02/28/23] pen needle, diabetic 32 gauge x 5/32" (BD Ultra-Fine Catalina Pen Needle) #100 ea 02/13/23 [Rx Last Taken Unknown] dapagliflozin propanediol 10 mg tablet (Farxiga) 10 mg PO DAILY DIABETES 03/01/23 [History Last Taken 02/28/23] glimepiride 4 mg tablet 4 mg PO BID DIABETES 03/01/23 [History Last Taken 02/28/23] insulin detemir U-100 100 unit/mL (3 mL) subcutaneous pen (Levemir FlexPen) 55 unit subcut DAILY DIABETES 03/01/23 [History Last Taken 02/28/23] ipratropium bromide 42 mcg (0.06 %) nasal spray 2 spray intranasal DAILY NASAL DRAINAGE 03/01/23 [History Last Taken 02/28/23] losartan 100 mg tablet 100 mg PO DAILY BLOOD PRESSURE 03/01/23 [History Last Taken 02/28/23] multivitamin 1 tab PO DAILY HEALTH MAINTENANCE 03/01/23 [History Last Taken 02/28/23] tirzepatide 2.5 mg/0.5 mL subcutaneous pen injector (Mounjaro) 2.5 mg subcut WE DIABETES 03/01/23 [History Last Taken 02/22/23] trazodone 100 mg tablet 200 mg PO QHS SLEEP 03/01/23 [History Last Taken 02/28/23] vitamin B complex 1 cap PO DAILY SUPPLEMENT 03/01/23 [History Last Taken 02/28/23] Allergy/AdvReac Type Severity Reaction Status Date / Time piperacillin [From Zosyn] Allergy Severe Anaphylaxis Verified 03/01/23 10:39 tazobactam [From Zosyn] Allergy Severe Anaphylaxis Verified 03/01/23 10:39 sulfamethoxazole Allergy Unknown Anaphylaxis Verified 03/01/23 13:34 [From Bactrim] trimethoprim [From Bactrim] Allergy Unknown Anaphylaxis Verified 03/01/23 13:34 latex Allergy Rash Verified 03/01/23 09:27 tetanus and diphtheria Allergy Anaphylaxis Verified 03/01/23 09:27 toxoids [Tetanus&Diphtheria Toxoid] flea medicine Allergy Anaphylaxis, Uncoded 03/01/23 09:27 Diarrhea Family History Mother Diabetes Dementia Father Diabetes Myocardial infarction Surgical History H/O amputation of lesser toe (05/05/17) H/O arthroscopic knee surgery (11/2019) History of cholecystectomy History of nasal septoplasty History of thyroidectomy Hx of total knee arthroplasty Social History Smoking Status: Never smoker alcohol intake: current alcohol intake frequency: holidays/special occasions only Physical Exam Const alert, oriented x3 and no apparent distress General Appearance: cooperative Eyes PERRL and EOMs intact bilaterally Neck supple and No nodes Resp normal air movement and clear to auscultation bilaterally Cardio regular rate and regular rhythm GI soft to palpation, non-tender and non-distended Extremity General Extremity: Negative for edema Skin Skin Narrative: L plantar wound under 5th met with some redness, foul smelling drainage Neuro CN's II-XII intact bilaterally Lab / Micro Data Attestation: I reviewed the patient's lab results. Result Diagrams: 03/01/23 09:56 03/01/23 09:56 Labs: Laboratory Results - last 24 hr 03/01/23 09:56: WBC 8.5, RBC 3.93 L, Hgb 10.9 L, Hct 35.4 L, MCV 90.1, MCH 27.7,MCHC 30.8 L, RDW Std Deviation 46.1 H, RDW Coeff of Kami 13.9, Plt Count 313, MPV9.4, Immature Gran % (Auto) 0.400, Neut % (Auto) 75.8 H, Lymph % (Auto) 15.2 L, Evangeline % (Auto) 7.8, Eos % (Auto) 0.6, Baso % (Auto) 0.2, Absolute Neuts (auto) 6.4, Absolute Lymphs (auto) 1.29, Nucleated RBC % 0, ESR 54 H 03/01/23 09:56: Sodium 136, Potassium 4.3, Chloride 103, Carbon Dioxide 30.0, Anion Gap 3 L, BUN 23 H, Creatinine 0.93, Estim Creat Clear Calc 66.51, Est GFR (MDRD) Af Amer 79, Est GFR (MDRD) Non-Af 66, BUN/Creatinine Ratio 24.7 H, Glucose 204 H, Calcium 8.8, Total Bilirubin 0.60, AST 37, ALT 46, Alkaline Phosphatase 107, C- React Prot Ext Range 116.00 H, Total Protein 7.6, Albumin 2.8L, Globulin 4.8 H, Albumin/Globulin Ratio 0.6 L Radiology Impression Foot X-Ray 03/01/23 10:00 IMPRESSION: 1. Erosion of the head of the fifth metatarsal and the fifth toe consistent with osteomyelitis. 2. Soft tissue ulceration near the fifth metatarsal phalangeal joint. Electronically Signed: Zack Montenegro MD at 10:20 EDT , 03/01/23 1342 <Electronically signed by Victorino Mixon MD> Cosigner Signature (if applicable): CC: DPLambert Navarro; Dr. Victorino Mixon MD; Dr. Gulshan Early MD~ Signed [facility] Work Phone: 1(113) 734-806806-21-[address] Xiao [facility] March 01, 2023 1:23pm Note Date/Time March 01, 2023 9:34 am [facility] Medical Records Department [address] [place] [address] Emergency Department Summary 03/01/23 MR#: [id number] Acct: [id number] Name: REMI BELTRAN Rep #:[id number] : 1965 [id number] From: Aditya Puente PCP: Dr. Gulshan Early MD Status:ADM I N Location: [place] [address] HPI History of Present Illness Chief Complaint: Wound PFSH PFSH Medical History Anxiety Arthritis Asthma Asthma Back pain Broken teeth Cardiology follow-up encounter Chronic steroid use CPAP (continuous positive airway pressure) dependence Depression Dermatitis Diabetes type 2, uncontrolled Dietary restriction Difficulty balancing when standing Edema Essential (primary) hypertension Fibromyalgia GERD (gastroesophageal reflux disease) Hammertoe of left foot History of pain when walking History of stress test Hypergammaglobulinemia Hyperlipemia Hypertension Hypothyroidism Iron deficiency Leg cramping Morbid obesity with BMI of 40.0-44.9, adult Multinodular thyroid Non-smoker Normal echocardiogram Osteomyelitis of toe Other specified peripheral vascular diseases PAD (peripheral artery disease) Shortness of breath Skin ulcer of right foot including toes with fat layer exposed Venous stasis dermatitis of both lower extremities Wears glasses Home Medications celecoxib 200 mg capsule 200 mg PO DAILY ARTHRITIS/INFLAMMATION 10/18/18 [History Last Taken 02/28/23] loratadine 10 mg capsule 10 mg PO DAILY ALLERGIES 10/18/18 [History Last Taken 02/28/23] metformin 1,000 mg tablet 1,000 mg PO BID DIABETES 10/18/18 [History Last Taken 02/28/23] montelukast 10 mg tablet 10 mg PO QHS ASTHMA/ALLERGIES 10/18/18 [History Last Taken 02/28/23] omeprazole 40 mg capsule,delayed release 40 mg PO DAILY ACID REFLUX 10/18/18 [History Last Taken 02/28/23] calcium carbonate 500 mg-vitamin D3 10 mcg (400 unit) tablet 1 ea PO DAILY SUPPLEMENT 10/29/19 [History Last Taken 02/28/23] paroxetine HCl 40 mg tablet 40 mg PO DAILY DEPRESSION 10/29/19 [History Last Taken 02/28/23] potassium chloride 20 mEq tablet,extended release(part/cryst) 20 meq PO DAILY SUPPLEMENT 10/29/19 [History Last Taken 02/28/23] pregabalin 150 mg capsule 150 mg PO TID NERVE PAIN 10/29/19 [History Last Taken 02/28/23] aspirin 81 mg tablet,delayed release (Adult Low Dose Aspirin) 81 mg PO DAILY HEART HEALTH 07/21/20 [History Last Taken 02/28/23] cilostazol 100 mg tablet 100 mg PO DAILY CHOLESTEROL 07/21/20 [History Last Taken 02/28/23] levothyroxine 175 mcg tablet 175 mcg PO DAILY THYROID 07/21/20 [History Last Taken 02/28/23] metoprolol succinate 200 mg tablet,extended release 24 hr 200 mg PO DAILY BLOOD PRESSURE 07/21/20 [History Last Taken 02/28/23] albuterol sulfate 90 mcg/actuation aerosol inhaler (ProAir HFA) 1 inh [id number] PRN SHORTNESS OF BREATH 08/26/22 [History Last Taken 2 Days Ago ~02/27/23] ferrous sulfate 325 mg (65 mg iron) tablet (iron) 325 mg PO DAILY ANEMIA 08/26/22 [History Last Taken 02/28/23] rosuvastatin 40 mg tablet (Crestor) 40 mg PO DAILY CHOLESTEROL 08/26/22 [History Last Taken 02/28/23] pen needle, diabetic 32 gauge x 5/32" (BD Ultra-Fine Catalina Pen Needle) #100 ea 02/13/23 [Rx Last Taken Unknown] dapagliflozin propanediol 10 mg tablet (Farxiga) 10 mg PO DAILY DIABETES 03/01/23 [History Last Taken 02/28/23] glimepiride 4 mg tablet 4 mg PO BID DIABETES 03/01/23 [History Last Taken 02/28/23] insulin detemir U-100 100 unit/mL (3 mL) subcutaneous pen (Levemir FlexPen) 55 unit subcut DAILY DIABETES 03/01/23 [History Last Taken 02/28/23] ipratropium bromide 42 mcg (0.06 %) nasal spray 2 spray intranasal DAILY NASAL DRAINAGE 03/01/23 [History Last Taken 02/28/23] losartan 100 mg tablet 100 mg PO DAILY BLOOD PRESSURE 03/01/23 [History Last Taken 02/28/23] multivitamin 1 tab PO DAILY HEALTH MAINTENANCE 03/01/23 [History Last Taken 02/28/23] tirzepatide 2.5 mg/0.5 mL subcutaneous pen injector (Mounjaro) 2.5 mg subcut WE DIABETES 03/01/23 [History Last Taken 02/22/23] trazodone 100 mg tablet 200 mg PO QHS SLEEP 03/01/23 [History Last Taken 02/28/23] vitamin B complex 1 cap PO DAILY SUPPLEMENT 03/01/23 [History Last Taken 02/28/23] Allergy/AdvReac Type Severity Reaction Status Date / Time piperacillin [From Zosyn] Allergy Severe Anaphylaxis Verified 03/01/23 10:39 tazobactam [From Zosyn] Allergy Severe Anaphylaxis Verified 03/01/23 10:39 latex Allergy Rash Verified 03/01/23 09:27 tetanus and diphtheria Allergy Anaphylaxis Verified 03/01/23 09:27 toxoids [Tetanus&Diphtheria Toxoid] bactrim Allergy Unknown Anaphylaxis Uncoded 03/01/23 13:23 flea medicine Allergy Anaphylaxis, Uncoded 03/01/23 09:27 Diarrhea Family History Mother Diabetes Dementia Father Diabetes Myocardial infarction Surgical History H/O amputation of lesser toe (05/05/17) H/O arthroscopic knee surgery (11/2019) History of cholecystectomy History of nasal septoplasty History of thyroidectomy Hx of total knee arthroplasty Social History Smoking Status: Never smoker alcohol intake: current alcohol intake frequency: holidays/special occasions only EXAM Physical Exam Const Vital Signs: 03/01/23 09:24 03/01/23 10:36 03/01/23 10:55 Temperature 97.6 F L 98.1 F Temperature Source Temporal Oral Pulse Rate 74 93 88 Respiratory Rate 16 31 H 20 H Blood Pressure 122/77 H 101/89 H 97/53 L Blood Pressure Mean 92 93 67 Pulse Ox 100 79 92 Oxygen Delivery Method Room Air Room Air Nasal Cannula Oxygen Flow Rate (L/min) 5 03/01/23 11:10 03/01/23 11:00 Temperature 98 F Temperature Source Temporal Pulse Rate 85 87 Respiratory Rate 22 H 19 H Blood Pressure 108/69 112/59 L Blood Pressure Mean 82 76 Pulse Ox 95 98 Oxygen Delivery Method Nasal Cannula Nasal Cannula Oxygen Flow Rate (L/min) 3 3 MDM MDM MDM Narrative Medical decision making narrative: HISTORY OF PRESENT ILLNESS: 57-year-old female here with concern for diabetic foot infection. 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 Navarro who requested patient be admitted to medicine service with a podiatry consult. He further requested placing the patient on broad-spectrum antibiotics. The patient states REVIEW OF SYSTEMS: Pertinent positives: Wound Pertinent negatives: PHYSICAL EXAM: Nursing triage notes reviewed, Vital signs reviewed Constitutional: please see mdm HENT: MMM Eyes: Pupils equal round and reactive to light, Extraocular muscles intact Neck: No stridor, no JVD, full neck ROM Lungs: Clear to auscultation, No wheezing or rales. No increased work of breathing, no conversational dyspnea, no accessory muscle use, no nasal flaring. No respiratory distress noted Heart: Regular rate and rhythm, No murmurs, No rubs and No gallops, 2+ distal pulses (radial, femoral, posterior tibial) in all extremities Abdomen: Soft, there is no tenderness, rigidity, rebound or guarding, no obviousperitoneal signs, no palpable pulsatile abdominal masses, no auscultated abdominal bruit : No CVAT Extremities: No edema Neuro: Intact sensation L1-S1 dermatomal distributions. Intact 5/5 strength in hip flexion (T12-L3). Knee extension (L2-L4). Ankle dorsiflexion (L4-L5). Ankle plantar flexion (S1). Great toe extension (L5). 2+ patellar and AchillesDTRs. Skin: 2 x 2 cm ulceration noted to the lateral surface of the fifth metatarsal, fifth digit MEDICAL DECISION MAKING: Chief Complaint: Wound External records reviewed: History of cellulitis Factors affecting care: Type 2 diabetes Social determinants of health: Current alcohol History obtained from others: Consults: Internal medicine, podiatry ALL IMAGES (IF OBTAINED) HAVE BEEN PERSONALLY REVIEWED AND INTERPRETED BY MYSELF. MDM Narrative: The patient was hemodynamically stable, afebrile, nontoxic-appearing. Exam approximately 2 x 2 cm ulceration with purulent drainage. No obvious surrounding cellulitis crepitus or bullae. Will give broad-spectrum antibiotics as per podiatry recommendation. X-ray shows evidence of osteomyelitis . will admit the patient. During the patient's ED course after receiving just a small amount of Zosyn and topical bacitracin she began to have an anaphylactic reaction including throat scratchiness, shortness of breath, wheezing and nausea. She was given 1 dose ofIM epinephrine 0.3 mg. She was given 25 mg of oral Benadryl. Symptoms resolvedquickly. Zosyn was added to her allergy list. Penicillin antibiotic was changed to levofloxacin per our sepsis order set. Patient was admitted in stable condition. The patient and/or family, caregivers express understanding. The patient and/orfamily, caregivers agrees with the plan. Total critical care time today provided was at least 0 minutes. This excludes separately billable procedures. Critical care time (if documented) is secondary to the patient having high probability of clinically significant/life threatening deterioration in the patient's condition which required my urgent intervention. Shared decision making: I will have a discussion with the patient and or visitors regarding risk/benefits of further testing or admission. They will be made aware of of the risk/benefits inherent in this decision they will be given the opportunity to voice understanding. Lab Data Attestation: I reviewed the patient's lab results. Lab results narrative: BMP without significant [place] normalities, no anion gap, no JAMES CRP grossly elevated concerning for systemic inflammation LFTs show no evidence of hepatobiliary pathology. X-ray of the right foot was personally read by myself shows evidence of bony erosion into the head of the fifth metatarsal Labs: Laboratory Results - last 24 hr 03/01/23 03/01/23 09:56 09:56 WBC 8.5 RBC 3.93 L Hgb 10.9 L Hct 35.4 L MCV 90.1 MCH 27.7 MCHC 30.8 L RDW Std Deviation 46.1 H RDW Coeff of Kami 13.9 Plt Count 313 MPV 9.4 Immature Gran % (Auto) 0.400 Neut % (Auto) 75.8 H Lymph % (Auto) 15.2 L Evangeline % (Auto) 7.8 Eos % (Auto) 0.6 Baso % (Auto) 0.2 Absolute Neuts (auto) 6.4 Absolute Lymphs (auto) 1.29 Nucleated RBC % 0 ESR 54 H Sodium 136 Potassium 4.3 Chloride 103 Carbon Dioxide 30.0 Anion Gap 3 L BUN 23 H Creatinine 0.93 Estim Creat Clear Calc 66.51 Est GFR (MDRD) Af Amer 79 Est GFR (MDRD) Non-Af 66 BUN/Creatinine Ratio 24.7 H Glucose 204 H Calcium 8.8 Total Bilirubin 0.60 AST 37 ALT 46 Alkaline Phosphatase 107 C-React Prot Ext Range 116.00 H Total Protein 7.6 Albumin 2.8 L Globulin 4.8 H Albumin/Globulin Ratio 0.6 L Radiography Diagnostic Testing: Clinical Impression(s) from Imaging Studies Foot X-Ray 03/01/23 10:00 IMPRESSION: 1. Erosion of the head of the fifth metatarsal and the fifth toe consistent with osteomyelitis. 2. Soft tissue ulceration near the fifth metatarsal phalangeal joint. Electronically Signed: Zack Montenegro MD at 10:20 EDT , Discharge Plan Dx/Rx/DC Orders Clinical Impression: Diabetic foot ulcer, Osteomyelitis Disposition Disposition: Acute Care Hospital [facility] Discharge Date/Time: 03/01/23 12:05 What to do if you have Problems For any increased pain, shortness of breath, bleeding, nausea or vomiting, chestpain, or any unexpected problems, contact your Primary Care Provider. Call [facility] ([phone]) or report to the closest Emergency Room. Call 911 if necessary. 03/01/23 1323 <Electronically signed by Aditya Xiao DO> Cosigner Signature (if applicable): CC: Dr. Gulshan Early MD ~ Signed [facility] Work Phone: 1(821) 402-514507-26-2022 Hospital Discharge instructions Patient Education 04/05/2022 12:49:29 R.I.C.E. RICE [...] and reduce pain. Don t place ice directlyon your skin. Wrap a cold pack or [...] worsens and is not improved with elevation. [phone] [employer]. [address] [place] [address]. All rights reserved. This information is not intended as a substitute for professional medical care. Always follow yourhealthcare professional's instructions. Follow Up Care 04/05/2022 11:46:56 With:CLYDE ALMANZA DO Address: [address] [place] [address] [facility] [place], [place] [phone]- [phone] When:2-4 days With:Go to emergency room if symptoms worsen Address:Unknown When:2-4 days [facility] 07-26-2022 Note Discharge Instructions Thank you for allowing [facility] to assist you with your healthcare needs. The following is importantdischarge information regarding your hospital visit. Diagnosis from Today's Visit Wrist pain Wrist pain-swelling What to Do Next Instructions from Your Care Team No qualifying data available. Post Acute Orders No qualifying data available. You Need to Schedule the Following Appointments Follow Up with CLYDE ALMANZA DO When Within 2-4 days Where: [address] [place] [address] 5 [facility] [place], [place] [phone]- [phone] Follow Up with Go to emergency room if symptoms worsen When Within 2-4 days Allergies Latex (hives, swelling) tetanus toxoid (difficulty breathing, diarrhea, vomiting) Medications Please ask your primary doctor or pharmacist before taking any other medication not listed, including over the counter drugs, herbal medications, vitamins and or supplements as they may interact withyour home medications. What How Much When Why Instructions Last Dose Unchanged acetaminophen- hydrocodone ([place] 325- 5 mg oral tablet) 1 tab(s) [...] and reduce pain. Don t place ice directlyon your skin. Wrap a cold pack or [...] worsens and is not improved with elevation. [phone] [employer]. [address] [place] [address]573. All rights reserved. This information is not intended as a substitute for professional medical care. Always follow yourhealthcare professional's instructions. Additional Information VACCINATE! IT SAVES LIVES! Members of the community who have not yet received the COVID-19 vaccine and would like to receive it can visit one of [facility] vaccine clinics. There are many vaccine clinic locations within the [facility]. For locations and available times, please visit [email or web address]. It is important to note that some COVID mobile vaccine clinics are held outdoors and may be canceled in rainy orstormy conditions. To learn more about pediatric vaccinations (ages 5-11), we invite you to visit the [facility] webpage. [email or web address] learn more about the COVID-19 vaccine, we invite you to visit the [employer] website for a list of frequently asked questions. [email or web address] [facility] Patient Portal Access Instructions: Stay connected with your healthcare team and access your personal medical information anytime with the [facility] Patient Portal. If you would like a full copy of your medical records please contact the [facility] Medical Records Department Monday through Monday between 8a.m. and 4:30p.m. Please follow the directions below to access the portal: 1.Access the email account you provided upon registration to the hospital.2.Look for an invitation email from [facility].3.Open the email and access the invitation link: Accept Invitation to [facility]4.Fill in the required franco to create your account. Sign into www.Hello Chair with your username and password that you [...] you will allow to register on the [facility] Patient Portal for access to your information. You can also access the [facility] Patient Portal on the [employer] yanna. Simply click on "Health Records" under "Tie SocietyDaJammit" and then click on the [employer] logo. HOW TO SAFELY DISPOSE OF PRESCRIPTION MEDICATIONS Please use one of the following methods to safely dispose of your unused medications. 1.Use a drug disposal kit: the drug disposal pouch allows you to safely discard your old and unuseddrugs. Ask your nurse to give you one when you are discharged.2.Visit a local take-back location: Many local pharmacies and police departments have programs that collect old and unwanted prescriptiondrugs. Call your local pharmacy or go to http://Testt.Ecom Express/4D2Bu0t to find one close to you.3.Make use of household items: Use cat litter or old coffee grounds to dispose medications if other options arenot available. Mix your drugs with these household products, seal them in an airtight container andthrow it into the garbage. Call [facility]: [phone] to be sure your drugs can be [...] drowsiness, such as benzodiazepines, also known as benzos,including diazepam and alprazolam, muscle relaxants or sleep aids. Never sell or share prescriptionopioids. This is illegal. Store opioids in a secure place and out of reach of others (including children, family, friends and visitors). The last page(s) of this document has been signed and retained as a CHART COPY Signatures Patient Education Materials R.I.C.E. Medication Leaflets My discharge plan and instructions have been reviewed and explained to me and I,REMI BELTRAN M understand my current condition and have read and understand these discharge instructions. I have received a written copy of the plan/instructions. If I have questions, I am aware that I should contactmy doctor. 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 Tyler [facility] March 07, 2023 11:36am Note Date/Time March 07, 2023 11:3 6am [facility] Medical Records Department [address] [place] [address] Discharge Summary 03/07/23 1128 MR#: [id number] Acct: [id number] Name: REMI BELTRAN Rep #:[id number] : 1965 57 From: Macario calloway MD PCP: Dr. Gulshan Early MD Status:ADM I N Location: [place] [address] Providers Date of Admission: 03/01/23 Primary Care Physician: Dr. Gulshan Early MD Consultations 03/01/23 12:29 Consult: Infectious Disease Routine Consulting Provider: Victorino Mixon Reason for Consult: Diabetic foot infection with anaphylaxis to Zosyn EMERGENT Consult: No MD Notified: Yes Date Notified: 03/01/23 Time Notified: 13:20 Method of Notification: via answering servicwe Consult: Onc/Wound/mount loader Routine Comment: Consult: Podiatry Routine Consulting Provider: Tereso Navarro Reason for Consult: Osteo EMERGENT Consult: No MD Notified: Yes Date Notified: 03/01/23 Time Notified: 11:18 Method of Notification: ED Physician Initiated 03/03/23 07:35 Consult: Vascular Surgery Routine Consulting Provider: Pérez Araya Reason for Consult: Diabetic pt with PVD and foot ulcer EMERGENT Consult: No MD Notified: Yes Date Notified: 03/03/23 Time Notified: 07:35 Method of Notification: lynn Comments:: lynn says it was viewed Reason For Visit: OSTEO Diagnosis Discharge Diagnosis (1) Cellulitis of right lower limb: Status: Acute Code(s): L03.115 - Cellulitis of right lower limb (2) Diabetic foot ulcer: Status: Acute Code(s): E11.621 - Type 2 diabetes mellitus with foot ulcer; L97.509 - Non-pressure chronic ulcer of other part of unspecified foot with unspecified severity (3) Osteomyelitis: Status: Acute Code(s): M86.9 - Osteomyelitis, unspecified (4) Neuropathy: Status: Chronic Code(s): G62.9 - Polyneuropathy, unspecified (5) Type 2 diabetes mellitus with foot ulcer: Status: Acute Code(s): E11.621 - Type 2 diabetes mellitus with foot ulcer; L97.509 - Non-pressure chronic ulcer of other part of unspecified foot with unspecified severity Medications at Discharge Home Medications celecoxib 200 mg capsule 200 mg PO DAILY ARTHRITIS/INFLAMMATION 10/18/18 loratadine 10 mg capsule 10 mg PO DAILY ALLERGIES 10/18/18 metformin 1,000 mg tablet 1,000 mg PO BID DIABETES 10/18/18 montelukast 10 mg tablet 10 mg PO QHS ASTHMA/ALLERGIES 10/18/18 omeprazole 40 mg capsule,delayed release 40 mg PO DAILY ACID REFLUX 10/18/18 calcium carbonate 500 mg-vitamin D3 10 mcg (400 unit) tablet 1 ea PO DAILY SUPPLEMENT 10/29/19 paroxetine HCl 40 mg tablet 40 mg PO DAILY DEPRESSION 10/29/19 potassium chloride 20 mEq tablet,extended release(part/cryst) 20 meq PO DAILY SUPPLEMENT 10/29/19 pregabalin 150 mg capsule 150 mg PO TID NERVE PAIN 10/29/19 aspirin 81 mg tablet,delayed release (Adult Low Dose Aspirin) 81 mg PO DAILY HEART HEALTH 07/21/20 cilostazol 100 mg tablet 100 mg PO DAILY CHOLESTEROL 07/21/20 levothyroxine 175 mcg tablet 175 mcg PO DAILY THYROID 07/21/20 metoprolol succinate 200 mg tablet,extended release 24 hr 200 mg PO DAILY BLOOD PRESSURE 07/21/20 albuterol sulfate 90 mcg/actuation aerosol inhaler (ProAir HFA) 1 inh [id number] PRN SHORTNESS OF BREATH 08/26/22 ferrous sulfate 325 mg (65 mg iron) tablet (iron) 325 mg PO DAILY ANEMIA 08/26/22 rosuvastatin 40 mg tablet (Crestor) 40 mg PO DAILY CHOLESTEROL 08/26/22 pen needle, diabetic 32 gauge x 5/32" (BD Ultra-Fine Catalina Pen Needle) #100 ea 02/13/23 dapagliflozin propanediol 10 mg tablet (Farxiga) 10 mg PO DAILY DIABETES 03/01/23 glimepiride 4 mg tablet 4 mg PO BID DIABETES 03/01/23 insulin detemir U-100 100 unit/mL (3 mL) subcutaneous pen (Levemir FlexPen) 55 unit subcut DAILY DIABETES 03/01/23 ipratropium bromide 42 mcg (0.06 %) nasal spray 2 spray intranasal DAILY NASAL DRAINAGE 03/01/23 losartan 100 mg tablet 100 mg PO DAILY BLOOD PRESSURE 03/01/23 multivitamin 1 tab PO DAILY HEALTH MAINTENANCE 03/01/23 tirzepatide 2.5 mg/0.5 mL subcutaneous pen injector (Mounjaro) 2.5 mg subcut WE DIABETES 03/01/23 trazodone 100 mg tablet 200 mg PO QHS SLEEP 03/01/23 vitamin B complex 1 cap PO DAILY SUPPLEMENT 03/01/23 levofloxacin 500 mg tablet 500 mg PO DAILY #37 tabs 03/06/23 Hospital Course Procedures - (ABIs, fifth toe amputation on the right) Summary of Care Provided Minutes Spent on Discharge: 38 Hospital Course: Per HPI: REMI BELTRAN, is a 57 F who presents to the hospital with a right foot osteo.? She has a history of diabetes and was following up with podiatry secondary to a right foot wound that has since progressed.? 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 In the ER x-ray demonstrated right foot osteo, she does not have a leukocytosis and she is afebrile.? Unfortunately, she was started on Zosyn and had what appeared to the ED physician to be an anaphylactic reaction and she was treated appropriately with epinephrine.? She never lost her airway and is completely recovered. Hospital Course: 1. Type 2 diabetes with diabetic foot ulcer and osteomyelitis of her right fifth metatarsal and neuropathy?57-year-old female with a history of type 2 diabetes hospital with a worsening infected ulcer on the lateral aspect of her right foot she was taken to the OR and proceeded to have 5 toe amputation and partial metatarsal amputation secondary to osteomyelitis. Infectious disease was consulted and ordered outpatient p.o. Levaquin 500 mg daily for 37 days. She is nonweightbearing on her right lower extremity therefore based on physicaltherapy evaluation was discharged to a SNF. I discussed with her the plan for discharge today she expressed understanding of the risk benefits of going to [facility] today and would like to go today. Do recommend following up with wound care on discharge from [facility]. She does have a wound VAC in place and she can resume all of her home blood sugar medications. 2. Hypertension, hyperlipidemia, peripheral artery disease, hypothyroidism, GERD, anxiety, depression all chronic medical conditions which complicate her care. Her home medications were continued where appropriate. She did have another set of ABIs done during this admission which demonstrated calcifications. I do recommend outpatient follow-up with vascular surgery when she is discharged from SNF. Weight / BMI Weight Weight: 244 lb 4.355 oz Body Mass Index (BMI) 37.1 ABG / Lab / Microbiology Data Result Diagrams: 03/07/23 05:25 03/07/23 05:25 Laboratory: Laboratory Results - last 24 hr 03/06/23 11:21: POC Glucose 184 H 03/06/23 16:44: POC Glucose 170 H 03/06/23 21:04: POC Glucose 178 H 03/07/23 05:25: WBC 5.5, RBC 3.76 L, Hgb 10.4 L, Hct 33.0 L, MCV 87.8, MCH 27.7,MCHC 31.5 L, RDW Std Deviation 44.8 H, RDW Coeff of Kami 14.2, Plt Count 360, MPV8.6, Immature Gran % (Auto) 0.500, Neut % (Auto) 56.4, Lymph % (Auto) 31.1, Evangeline% (Auto) 8.6, Eos % (Auto) 2.9, Baso % (Auto) 0.5, Absolute Neuts (auto) 3.1, Absolute Lymphs (auto) 1.70, Nucleated RBC % 0 03/07/23 05:25: Sodium 140, Potassium 3.4 L, Chloride 104, Carbon Dioxide 31.0, Anion Gap 5, BUN 24 H, Creatinine 0.53 L, Estim Creat Clear Calc 116.71, Est GFR(MDRD) Af Amer 153, Est GFR (MDRD) Non-Af 126, BUN/Creatinine Ratio 45.5 H, Glucose 163 H, Calcium 8.6 03/07/23 05:59: POC Glucose 156 H Microbiology: Microbiology 03/01/23 12:45 Wound - Right Foot Gram Stain - Final 03/01/23 12:45 Wound - Right Foot Wound Culture - Final Staphylococcus aureus Streptococcus agalactiae (B) Proteus penneri 03/01/23 12:45 Wound - Right Foot Anaerobic Culture - Preliminary Anaerobic cocci Anaerobic cocci#2 03/02/23 14:10 Bone - 5th Toe Gram Stain - Final 03/02/23 14:10 Bone - 5th Toe Wound Culture - Final Streptococcus agalactiae (B) Pseudomonas aeruginosa 03/02/23 14:10 Bone - 5th Toe Anaerobic Culture - Preliminary Gram negative elizabeth Anaerobic cocci 03/02/23 14:06 Bone - 5th Toe Gram Stain - Final 03/02/23 14:06 Bone - 5th Toe Wound Culture - Final Strep anginosus Streptococcus agalactiae (B) Pseudomonas aeruginosa 03/02/23 14:06 Bone - 5th Toe Anaerobic Culture - Final Anaerobic cocci 03/01/23 15:15 Blood Culture (Wb) - Anticubital Left Blood Culture - Final No growth in 5 days. 03/01/23 14:40 Blood Culture (Wb) - Anticubital Left Blood Culture - Final No growth in 5 days. Meaningful Use Info Meaningful Use Diagnoses (Choose all that apply): None applicable Discharge Plan Admission Admit Date/Time: 03/01/23 11:11 Attending Provider: Macario Tyler Primary Care Provider: Gulshan Early Chi Consulting Providers: Tereso Navarro ; Victorino Mixon ; Pérez Araya Discharge Orders/Prescriptions Prescriptions: New levofloxacin 500 mg tablet 500 mg PO DAILY Qty: 37 0RF Continued celecoxib 200 mg capsule 200 mg PO DAILY montelukast 10 mg tablet 10 mg PO QHS metformin 1,000 mg tablet 1,000 mg PO BID omeprazole 40 mg capsule,delayed release(DR/EC) 40 mg PO DAILY loratadine 10 mg capsule 10 mg PO DAILY cilostazol 100 mg tablet 100 mg PO DAILY levothyroxine 175 mcg tablet 175 mcg PO DAILY aspirin [Adult Low Dose Aspirin] 81 mg tablet,delayed release (DR/EC) 81 mg PO DAILY metoprolol succinate 200 mg tablet extended release 24 hr 200 mg PO DAILY (DME) pen needle, diabetic [BD Ultra-Fine [place] Pen Needle] 32 gauge x 5/32" needle See Rx Instructions .Route Qty: 100 3RF Rx Instructions: daily potassium chloride 20 MEQ tablet 20 meq PO DAILY paroxetine HCl 40 MG tablet 40 mg PO DAILY pregabalin 150 MG capsule 150 mg PO TID calcium carbonate-vitamin D3 1 EACH tablet 1 ea PO DAILY ferrous sulfate [iron] 325 mg (65 mg iron) Tablet 325 mg PO DAILY albuterol sulfate [ProAir HFA] 90 mcg/actuation Hfa Aerosol Inhaler 1 inh INHALATION Q6H PRN (Reason: SHORTNESS OF BREATH ) rosuvastatin [Crestor] 40 mg Tablet 40 mg PO DAILY multivitamin Tablet 1 tab PO DAILY trazodone 100 mg tablet 200 mg PO QHS glimepiride 4 mg tablet 4 mg PO BID ipratropium bromide 42 mcg (0.06 %) spray,non-aerosol 2 spray INTRANASAL DAILY losartan 100 mg tablet 100 mg PO DAILY vitamin B complex Capsule 1 cap PO DAILY Farxiga 10 mg tablet 10 mg PO DAILY Levemir FlexPen 100 unit/mL (3 mL) insulin pen 55 unit subcut DAILY Mounjaro 2.5 mg/0.5 mL pen injector 2.5 mg subcut WE Referrals / Follow Up: Gulshan Early Chi, MD [Primary Care Provider] - Disposition Disposition (needs filled in before D/C Order can be placed): Half-Way Facility Charges/Coding Visit Charges Inpatient E&M: 59376 Disch Hosp >30min 03/07/23 1136 <Electronically signed by Macario Tyler MD> Cosigner Signature (if applicable): CC: Dr. Macario Tyler MD; Dr. Gulshan Early MD~ Signed [facility] Work Phone: Evaluation + Plan note No data available for this section [facility] Evaluation note* Diagnosis Onset Date Resolution Status Derangement of medial meniscus of right knee acute Right knee DJD acute Spinal stenosis of lumbar region acute Lumbar radiculopathy, chronic chronic Right knee DJD acute Spinal stenosis of lumbar region acute [facility] Work Phone: Evaluation note* Diagnosis Onset Date Resolution Status Cellulitis of right foot acu te Fracture of triquetral bone of left wrist acute [facility] Work Phone: Evaluation note* Diagnosis Onset Date Resolution Status Cellulitis of right foot acu te Fracture of triquetral bone of left wrist acute Fracture of triquetral bone of left wrist acute Diabetes mellitus type 2 in obese acute Obesity acute Right knee DJD acute Essential (primary) hypertension chronic [facility] Work Phone: Evaluation note* Diagnosis Onset Date Resolution Status Fracture of triquetral bone of left wrist acute Diabetes mellitus type 2 in obese acute Obesity acute Right knee DJD acute Essential (primary) hypertension chronic [facility] Work Phone: Evaluation note* Diagnosis Onset Date Resolution Status Diabetes mellitus type 2 in obese acute Obesity acute Right knee DJD acute Essential (primary) hypertension chronic Right knee pain acute [facility] Work Phone: Evaluation note* Diagnosis Onset Date Resolution Status Right knee pain acute [facility] Work Phone: Evaluation note* Diagnosis Onset Date Resolution Status Diabetes mellitus type 2 in obese chronic Essential (primary) hypertension chronic Hyperlipemia chronic Microalbuminuria chronic Neuropathy chronic Obesity [facility] Work Phone: Evaluation note* Diagnosis Onset Date Resolution Status Diabetes mellitus type 2 in obese chronic Essential (primary) hypertension chronic Hyperlipemia chronic Microalbuminuria chronic Neuropathy chronic Obesity chronic Diabetic foot ulcer acute Osteomyelitis acute [facility] Work Phone: Evaluation note* Diagnosis Onset Date Resolution Status Diabetes mellitus type 2 in obese chronic Essential (primary) hypertension chronic Hyperlipemia chronic Microalbuminuria chronic Neuropathy chronic Obesity chronic Cellulitis of right lower limb acute Diabetic foot ulcer acute Osteomyelitis acute Type 2 diabetes mellitus with foot ulcer acute Neuropathy chronic [facility] Work Phone: Evaluation note* Diagnosis Onset Date Resolution Status Diabetes mellitus type 2 in obese chronic Essential (primary) hypertension chronic Hyperlipemia chronic Microalbuminuria chronic Neuropathy chronic Obesity chronic Cellulitis of right lower limb acute Diabetic foot ulcer acute Osteomyelitis acute Type 2 diabetes mellitus with foot ulcer acute Neuropathy chronic Cellulitis of right lower limb acute Debility acute Depression acute Diabetes mellitus acute Diabetes mellitus with diabetic polyneuropathy acute Diabetic foot ulcer acute Diabetic polyneuropathy acut e Foot osteomyelitis, right ac simon GERD (gastroesophageal reflux disease) acute History of partial ray amput ation of fifth toe of right foot acute Hyperlipidemia acute Hypokalemia acute Hypothyroidism acute Insomnia acute Type 2 diabetes mellitus with foot ulcer acute Non-pressure chronic ulcer o f other part of right foot with fat layer exposed chronic Obesity chronic [facility] Work Phone: Evaluation note* Diagnosis Onset Date Resolution Status Osteomyelitis acute Neuropathy chronic Cellulitis of right lower limb resolved Diabetic foot ulcer resolved Type 2 diabetes mellitus with foot ulcer resolved Debility acute Depression acute Diabetic polyneuropathy acut e GERD (gastroesophageal reflux disease) acute History of partial ray amput ation of fifth toe of right foot acute Hyperlipidemia acute Hypokalemia acute Insomnia acute Diabetes mellitus chronic Diabetes mellitus with diabetic polyneuropathy chronic Hypothyroidism chronic Obesity chronic Cellulitis of right lower limb resolved Diabetic foot ulcer resolved Foot osteomyelitis, right re solved Non-pressure chronic ulcer o f other part of right foot with fat layer exposed resolved Type 2 diabetes mellitus with foot ulcer resolved Diabetes mellitus with diabetic polyneuropathy chronic Diabetes mellitus chronic Hypothyroidism chronic Obesity chronic [facility] Work Phone: Evaluation note* Diagnosis Onset Date Resolution Status Hyperlipidemia acute Peripheral vascular disease, unspecified acute Diabetes mellitus with diabetic polyneuropathy chronic Essential (primary) hypertension chronic Non-pressure chronic ulcer o f left heel and midfoot with fat layer exposed chronic Type 2 diabetes mellitus with foot ulcer resolved [facility] Work Phone: Evaluation noteNo assessment information available [facility] Work Phone: Progress note Author Zack Smith [facility] November 02, 2023 10:07am Note Date/Time November 02, 2023 10:08am [facility] [address] [place] [address] Progress Note - Wound Care 11/02/23 1003 MR#: [id number] Acct: [id number] Name: REMI BELTRAN Rep #:[id number] : [id number] 58 From: Zack chakraobrty DPM PCP: Dr. Gulshan Early MD Status:REG R CR Location: History of Present Illness Date of Service: 11/02/23 Chief Complaint: Left plantar heel ulceration History of Wound: 58 y/o woman with diabetes, neuropathy, peripheral vascular disease asthma, morbid obesity, HTN and hyperlipidemia. She presents to the wound care center for continued care of plantar heel ulceration of the left foot. She has been following with Dr. Navarro in office over the last several weeks with minimal improvement noted to left plantar heel ulceration and has been applying Neosporin and dry dressings to the site. Patient denies stepping on any objects that may have created a puncture wound however does have significant diabetic peripheral polyneuropathy with absent sensation to the foot. She is continue to change dressings daily. States ulceration has been present for a few weeks. She does have history of multiple ulcerations and multiple amputations of both feet. She is ambulating in surgical shoe with small cut out and for the heel. She denies N/V/F/chills. She denies further complaints. Subjective Subjective Patient is a 58-year-old female who follows to the wound care center for plantarcentral heel ulceration. Patient had previously missed last week's appointment and states she has been on her foot more lately. She states she continues to try to offload with surgical shoe with heel cut out. States she is continuing to change dressings daily. Denies constitutional symptoms. Denies further complaints. Objective Data Objective Data Vital Signs: Vital Signs Temp Pulse Resp BP O2 Del Method 96.5 F L 76 18 132/74 H Room Air 10/19/23 10:01 11/02/23 09:19 11/02/23 09:19 11/02/23 09:19 11/02/23 09:19 Oxygen Delivery Method Room Air Weight: 93.44 kg Body Mass Index (BMI) 31.3 Physical Exam Const alert, oriented x3, no apparent distress and well nourished General Appearance: cooperative HEENT normocephalic Eyes Eyes Narrative: Wears glasses General Eye: normal appearance of both eyes Neck General: normal visual inspection Lymph Lymphatic: no lymphadenopathy noted and no lymphedema noted Resp normal respiratory effort Cardio regular rate and regular rhythm Extremity normal capillary refill, no joint enlargement, no calf tenderness and no pedal edema Extremity Narrative: DP and PT pulses weakly palpable bilateral. Capillary fill time is less than 5 seconds to digits. DP and PT pulses monophasic on Doppler bilateral. Dermatological: There is a small ulceration noted in the central plantar aspect of the left heel with local hyperkeratotic tissue and serosanguineous drainage that is scant. No palpable fluctuance, no visible abscess formation, no erythema, no purulent drainage, no malodor. Surrounding skin is xerotic in nature secondary to diabetic autonomic neuropathy and trophic changes to the skin consistent with microvascular disease. Neurological: Absent protective sensation tested with 5.07 [place] monofilament consistent with diabetic peripheral polyneuropathy. Musculoskeletal: Multiple partial digit amputations noted to the left foot and partial fifth ray amputation to the right foot. Muscle strength 5 of 5 age-appropriate. Decreased range of motion of the ankle joint dorsiflexion with theknee extended without pain or crepitus. Decreased range of motion to the subtalar joint, midtarsal joint, and first metatarsophalangeal joint without pain or crepitus. No pain to palpation about ulcerative site secondary to diabetic peripheral polyneuropathy. Skin no rashes or lesions noted, skin turgor normal and no jaundice Neuro moves all extremities Debridement Note Debridement Note Wound debrided: Plantar central heel ulceration left foot Laterality: Left Wound Grade/Stage: Galvan stage I Type of Debridement: Excisional debridement Anesthesia Used: 5% Lidocaine Gel Depth: Down to and including healthy tissue and in the subcutaneous layer Percentage of wound debrided: 100 Instrument Used: #15 blade Tissue Removed: Fibrous, devitalized subcutaneous, biofilm, slough Severity: Fat Layer Exposed Amount of bleeding with debridement: Mild Bleeding Controlled with: Compression and gauze Patient tolerated procedure: Patient tolerated procedure well Post-Debridement Measurements and Additional Note: Post-Debridement Measurements/Treatment WC - Nurse 1 - General Ulcer Assessment Start: 10/19/23 10:00 Freq: Status: Active Protocol: WC.LOWEXT Activity Type Activity Date Activity User E-sign Co-sign Detail Recorded Client Recorded Date Recorded By Document 10/19/23 10:01 GONZALO Laptop 10/19/23 10:16 Document 11/02/23 09:19 KW Desktop 11/02/23 09:26 KW 10/19/23 11/02/23 10:01 09:19 WC - Today's Visit Information Type of service Initial Visit 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 ) Arrival Mode Ambulatory,Cane Ambulatory,Cane Patient Identification Verified (Name & Yes Yes ) Patient Requires Transmission-Based No Precautions Finger Stick Blood Sugar(mg/dl) (if 100 indicated): Blood Sugar Stated by Patient Height and Weight Height 5 ft 8 in Weight 93.44 kg Weight in Pounds 206.0 lbs Weight Measurement Method Estimated by Patient Body Mass Index (BMI) 31.3 31.3 BMI Classification Obese Obese BSA - Charlene 2.07 Vital Signs Temperature (97.8 F-99.1 F) 96.5 F L Temperature Source Temporal Pulse Rate (60-100) 70 76 Pulse Location Monitor Monitor Respiratory Rate (12-18) 18 18 Respiratory rate source Observation Observation Oxygen Delivery Method Room Air Blood Pressure (90/60-120/80) 130/55 H 132/74 H Blood Pressure Mean (mm Hg) 80 93 Source Monitor Monitor Position Semi-Fowlers Semi-Fowlers Blood Pressure Location Left Arm Left Arm History Since Last Visit- (Skip if this is Patient's initial visit) Have you changed medications since your No last visit? Any new allergies or adverse reactions No Had a fall/change in ADL's that may No increase risk of falls Signs or symptoms of abuse and/or No neglect since last visit Have you been in the hospital since your No last visit? Has dressing in place as prescribed Yes Has compression in place as prescribed N/A Has offloadiing in place as prescribed Yes Experienced any changes in pain level or No management Left Footwear Surgical Shoe Surgical Shoe with pressure with pressure relief insole relief insole Right Footwear Regular Shoe Regular Shoe Pain Scale: 0-10 Numeric Is Patient Pain Free? Yes Yes Lower Extremity Assessment/ Foot Assessment/ Toe Nail Assessment Right -Posterior Tibial Palpable No -Posterior Tibial Doppler Inaudible -Dorsalis Pedis Palpable Yes -Dorsalis Pedis Doppler Multiphasic -Hair Growth on Legs No -Hair Growth on Toes No -Temperature of Extremity Cool -Capillary Refill Greater than 3 Seconds -Dependent Rubor No -Blanched when Elevated Yes -Thick Yes -Discolored Yes -Deformed Yes -Improper Length & Hygeine No Left -Posterior Tibial Palpable Yes -Posterior Tibial Doppler Multiphasic -Dorsalis Pedis Palpable Yes -Dorsalis Pedis Doppler Multiphasic -Extremity Color Pale -Hair Growth on Legs No -Hair Growth on Toes No -Temperature of Extremity Cool -Capillary Refill Greater than 3 Seconds -Dependent Rubor No -Blanched when Elevated Yes -Thick Yes -Discolored Yes -Deformed Yes -Improper Length & Hygeine No Communication Assessment Preferred language Malagasy Able to Read Yes Able to Write Yes Communication Tools None Right Hearing Abillity Normal Left Hearing Abillity Normal Visual Assistive Devices Glasses Teaching Assessment Preferences Verbal,Written, Audio/Visual, Demonstration Barriers to Learning None Readiness To Learn Good Willingness to Engage in Self Management Med Activies Readiness to Engage in Self Management Med Activities Anxiety Level Calm Cooperation Cooperative Perception Coherent Interest in Health Problem Asks Questions Education Importance Acknowledges Need Does Patient Smoke tobacco or other Yes substances Smoking Status Current every day smoker Is Patient Diabetic Yes Functional Assessment Recent Decline in Ability to Perform Ambulation Culture/Orthodoxy/Urgent Care Technician Cultural/Orthodoxy Needs that may affect No Treatment Plan Would you allow our hospital scientific programmer analyst to No meet you for the purpose of spiritual/ emotional support? Urgent Care Technician to contact place of quaker No WC - Nurse 1 - General Ulcer Measurement Start: 10/19/23 10:00 Freq: Status: Active Protocol: Activity Type Activity Date Activity User E-sign Co-sign Detail Recorded Client Recorded Date Recorded By Document 10/19/23 10:01 Laptop 10/19/23 10:16 Document 11/02/23 09:19 KW Desktop 11/02/23 09:26 KW 10/19/23 11/02/23 10:01 09:19 Wound Center Nurse 1 3-left heel -Combined with other wound No -Current Size (cm) - Length 0.3 0.2 -Current Size (cm) - Width 0.2 0.2 -Current Size (cm) - Depth 0.3 0.5 -Total Square Cm 0.06 0.04 -Photo Taken Yes -Epithelialization Large 67-100% -Tunneling No -Undermining/Tunneling No -Undermining/Tunneling Starts (O'clock 12 ) -Undermining/Tunneling Ends (O'clock) 12 -Maximum Distance (cm) 0.4 -Circular Undermining No Yes -Classification - Galvan Grading ( Grade 2 Diabetic Ulcer) -Exudate Amt Small Small -Exudate Type Serosanguineous Serosanguineous -Wound Margin Flat & Intact Distinct, Outline Attached -Granulation Amt Medium (34-66%) Large (67-100%) -Granulation Quality [place] -Slough/Fibrin Yes -Necrosis Amt Small (1-33%) -Necrotic Tissue Type Adherent Slough -Structure Exposed N/A -Texture (Yanely-wound Skin Appearance) Assessed,Callus Assessed,Callus -Moisture (Yanely-wound Skin Appearance) Assessed,Dry/ Assessed,Dry/ Scaly Scaly -Color (Yanely-wound Skin Appearance) Assessed Assessed -Temperature (Yanely-wound Skin No Abnormality Appearance) (Pt Warm) -Tenderness on Palpation (Yanely-wound No Skin Appearance) -Ulcer Cleansing Wound Cleanser Rinsed/ Irrigated with Saline -Foul Odor after Cleansing No -Anesthetic Used 5% Lidocaine 5% Lidocaine Gel Gel Right Calf (cm) 34.5 Right Ankle (cm) 23.0 WC - Nurse 2 - General Ulcer CM Notes Start: 10/19/23 10:00 Freq: Status: Active Protocol: Activity Type Activity Date Activity User E-sign Co-sign Detail Recorded Client Recorded Date Recorded By Document 10/19/23 12:06 BIANCA [id number] 10/19/23 12:07 BIANCA 10/19/23 12:06 Wound Center Nurse 2 -Time 10:50 -Correct Patient Yes -Correct Side, Site, Position Yes -Correct Procedure Yes -Procedure Performed Yes -Type of Procedure Debridement -Clinical Debridement Subcutaneous -Tissue Removed Subcutaneous -Post Debridement (cm) - Length 0.3 -Post Debridement (cm) - Width 0.2 -Post Debridement (cm) - Depth 0.2 -Total Square (Post) (cm) 0.06 -Area of Debridement (cm) - Length 0.3 -Area of Debridement (cm) - Width 0.2 -Total Square (Area) (cm) 0.06 -Tunneling No -Undermining/Tunneling No -Circular Undermining No -Wound/Ulcer Outcome Not Healed -Ulcer Cleansing Rinsed/ Irrigated with Saline -Foul Odor after Cleansing No -Bioengineered Tissue No -Debridement - Subq, 1st 20sq cm Yes Pain Scale: 0-10 Numeric Is Patient Pain Free? Yes - Nurse 3 - General Ulcer D/C NN Start: 10/19/23 10:00 Freq: Status: Active Protocol: Activity Type Activity Date Activity User E-sign Co-sign Detail Recorded Client Recorded Date Recorded By Document 11/02/23 09:54 DL Desktop 11/02/23 09:55 DL 11/02/23 09:54 Wound Care Center Nurse 3 3-left heel -Ulcer Cleansing Rinsed/ Irrigated with Saline -Foul Odor after Cleansing No -Primary Dressing Applied Promogran Marry Matter -Primary Dressing Covered/Secured with Dry Gauze & Roll Gauze, Secured with Tape -Promogran Marry Matter 1 Treatment Response Procedure Tolerated Well Pain Scale: 0-10 Numeric Is Patient Pain Free? Yes WC - Visit Discharge Discharge Condition Stable Ambulatory Status Ambulatory,Cane Transportation Private Auto Assessment/Plan Assessment/Plan (1) Non-pressure chronic ulcer of left heel and midfoot with fat layer exposed: CODE(S): L97.422 - Non-pressure chronic ulcer of left heel and midfoot with fat layer exposed (2) Diabetes mellitus with diabetic polyneuropathy: CODE(S): E11.42 - Type 2 diabetes mellitus with diabetic polyneuropathy QUALIFIERS: Diabetes mellitus type: type 2 Diabetes mellitus chcf insulin use: with alf use Qualified Code(s): E11.42 - Type 2 diabetes mellitus with diabetic polyneuropathy; Z79.4 - care home (current) use of insulin (3) Type 2 diabetes mellitus with foot ulcer: CODE(S): E11.621 - Type 2 diabetes mellitus with foot ulcer; L97.509 - Non- pressure chronic ulcer of other part of unspecified foot with unspecified severity (4) Peripheral vascular disease, unspecified: CODE(S): I73.9 - Peripheral vascular disease, unspecified (5) Essential (primary) hypertension: CODE(S): I10 - Essential (primary) hypertension (6) Hyperlipidemia: CODE(S): E78.5 - Hyperlipidemia, unspecified PLAN: Plan Patient seen and evaluated Ulceration underwent debridement as noted in clinical panel above. Ulceration measures 0.4 cm x 0.3 cm x 0.2 cm. Ulcerative site was dressed with Marry to the wound base and dry sterile dressing. She is to change dressing daily. A felt offloading cut out was applied around the wound site and she may continue toambulate in surgical shoe with a this offloading padding to left heel. There is a slight increase in size in ulceration versus her previous visit Upon range of motion it is noted significantly increased ankle dorsiflexion of the left foot versus right foot. 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 It is likely that tendo Achilles is over length and causing calcaneal gait and contributing to her ulceration. Discussed with her proper diabetic diet to ensure tight glycemic control. States her last A1c was around 7%. Discussed the importance of not ambulating barefoot, this includes socks. Encouraged protective shoe gear to be worn at all times. Discussed the need for proper foot checks nightly and if any suspicious cuts or lesions or wounds appear she is to report to the foot and ankle Center. Discussed essential to continue to offload ulceration as direct pressure and continued ambulation may be affecting her healing. Discussed with her today the signs and symptoms of infection. Discussed if she notices increasing redness about the wound that creeps up to the side of the foot or up the leg, increasing foul odor from the wound site, purulent drainage from the wound site, or if she experiences fever greater than 101 degree accompanied by nausea, vomiting, and chills that these are signs of a progressing infection and she should report to the ED to receive IV antibiotics. She voices understanding of this today. The following work up and care recommendations were made: Dressing: Marry dry sterile dressing. Change dressing daily. Wash: Soap and water Tissue growth optimization: Marry Offload: Plantar offloading padding about the heel and surgical shoe to left foot Vascular: Weakly palpable DP and PT pulses that are monophasic on Doppler. There is a component of microvascular disease with trophic changes to the skin. However I do not feel this is impacting healing status at this time as wound is more related to pressure. Edema: Recommended Tubigrip compression stockings and elevation of lower extremities at times of rest Infection: No signs of infection Pain: May take [id number] Tylenol as needed for discomfort. She is to avoid ibuprofen. Host factors: DM type II with peripheral polyneuropathy, peripheral vascular disease, HTN, HLD, pressure. Discussed at this time all service site does not qualify for applications of advanced wound care products based upon size and thus we will continue local wound care in the office. Patient will call to make appointment in office for next week. I answered all the patient's questions. To return to the wound healing center as needed or call sooner if the patient has any questions or concerns. 11/02/23 1007 <Electronically signed by Zack Smith DPM> Keith Signature (if applicable): CC: ~ Signed [facility] Work Phone: Reason for referral (narrative)No reason for referral information [facility] Work Phone: Discharge Instructions * Instructions* Sonia Valdez RN - 06/17/2020 Trish: ? Enter through Door number 2 ? Registration department is located here ? Patient will be escorted to [facility] ? Trish does not open before 6am Please bring your [facility] Information folder on the day of [...] sent through Care Everywhere. * Nose Fracture (Malagasy) documented in this encounter History of Present [...] latex allergy. documented in this encounter* Micaela Chirinos MD - 06/18/2020 11:37 AM EDT PROGRESS NOTE SUBJECTIVE: Patient seen and examined, I was wearing N95 mask throughout the patient encounter Interval history: On admission Presented from pre-admission testing for tachycardia 145 Overnight event : No No Palpitation at this time, nose bridge pain 10/10, lower extremity dependent edema, improved in morning Review of System: No CP No SOB No fever No cough No nausea No constipation No diarrhea No Abdominal Pain No dizziness No headache No focal weakness No dysuria No edema DIET CARB CONTROL; Carb Control: 5 carb choices (75 gms)/meal VITALS: BP 119/66 Pulse 112 Temp 98.3 F (36.8 C) (Temporal) Resp 18 Ht 5' 8" (1.727 m) Wt 300 lb (136.1 kg) [...] Cranial nerves: II-XII intact LABS: Recent Labs 06/17/20164406/17/201730 WBC -- 7.4 HGB 13.9 13.7 HCT 41.9 41.6 MCV -- 86.7 PLT -- 340 Recent Labs 06/17/20164406/17/20173006/18/20 013 NA 145 145 143 K 3.8 3.9 3.7 CL 105 105 107 CO2 25 25 24 GLUCOSE 170* 171* 173* MG -- 1.3* 1.8 BUN 12 12 13 CREATININE 0.63 0.62 0.63 Ionized Calcium: No results found for: IONCA Magnesium: Lab Results Component Value Date MG 1.8 06/18/2020 Phosphorus: No results found for: PHOS LIVER PROFILE: Recent Labs 06/17/201730 AST 50* ALT 33 BILITOT 0.8 ALKPHOS 115 LABALBU 4.5 PROT 8.4* PT/INR: No results for input(s): PROTIME, INR in the last 72 hours. CARDIAC ENZYMES: Recent Labs 06/17/20 17306/18/20 013 TROPONINI <0.012 <0.012 Procalcitonin: No results [...] Daily insulin lispro 0-6 Units Subcutaneous TID WC insulin lispro 0-3 Units Subcutaneous Nightly Continuous [...] DM2 DALIA CPAP asthma Check orthostatic Echo monitoring coordinator Pain control with oxy D dimer trop [...] Hypertension DALIA on CPAP Thyroid disease Micaela Chirinos MD On 06/18/2020 at 11:37 AM documented in this encounter Summary Purpose Family History No Family History Records Found Relationship Condition Age at Onset Recorded Date/T praneeth mother Diabetes mellitus Unknown father Diabetes mellitus Unknown Myocardial infarction Unknown Relationship Condition Age at Onset Recorded Date/T praneeth mother Diabetes mellitus Unknown Dementia Unknown father Diabetes mellitus Unknown Myocardial infarction Unknown Advance Directives No Advanced Directives Records FoundLatest Code Status on File Code Status Date Activated Date Inactivated Comments Full Code 06/18/2020 1:06 AM Advance Directive Response Recorded Date/ Time Advance Directives No October 08, 2016 10:57pm Living Will No November 12, 2019 1:51pm Power of Polytechnic Registrar Yes November 11 1:51pm Advance Directive Response Recorded Date/ Time Advance Directives No October 08, 2016 9:57pm Living Will No November 12, 2019 12:51pm Power of Polytechnic Registrar Yes November 11 0 12:51pm Advance Directive Response Recorded Date/ Time Advance Directives No October 08, 2016 9:57pm Living Will No August 26, 2 022 2:54pm Power of Polytechnic Registrar No August 26, 2022 2:54pm Advance Directive Response Recorded Date/ Time Advance Directives No October 08, 2016 10:57pm Living Will No August 26, 2 022 3:54pm Power of Polytechnic Registrar No August 26, 2022 3:54pm Advance Directive Response Recorded Date/ Time Name of Medical Power of Polytechnic Registrar Radha Arsalan March 01, 2023 12:19pm Advance Directives No October 08, 2016 10:57pm Living Will No March 01, 2023 12:19pm Power of Polytechnic Registrar Yes March 01 12:19pm Advance Directive Response Recorded Date/ Time Name of Medical Power of Polytechnic Registrar Radha Arriaza March 01, 2023 12:19pm Name of Medical Power of Polytechnic Registrar Jonas [email or web address] March 08, 2023 11:12am Advance Directives No December 31 020 10:01am Living Will No March 08, 2023 11:12am Power of Polytechnic Registrar Yes March 08 11:12am Advance Directive Response Recorded Date/ Time Advance Directives No March 23 2:31pm Living Will No March 23, 2023 2:31pm Power of Polytechnic Registrar Yes March 23 2:31pm Name of Medical Power of Polytechnic Registrar Radha Arriaza March 01, 2023 12:19pm Name of Medical Power of Polytechnic Registrar Jonas [email or web address] March 08, 2023 11:12am Advance Directive Response Recorded Date/ Time Advance Directives No March 23 1:31pm Living Will No March 23, 2023 1:31pm Power of Polytechnic Registrar Yes March 23 1:31pm Advance Directive Response Recorded Date/ Time Advance Directives No March 23 2:31pm Living Will No March 23, 2023 2:31pm Power of Polytechnic Registrar Yes March 23 2:31pm Advance Directive Response Recorded Date/ Time Living Will No August 21 024 3:34pm Do you have a Healthcare Pow er of Polytechnic Registrar? Yes August 21, 2024 3:34pm Name of Medical Power of Polytechnic Registrar AIYANA ARRIAZA August 21, 2024 3:34pm Living Will No September 11 1:38am Do you have a Healthcare Pow er of Polytechnic Registrar? Yes September 11, 2024 1:38am Living Will No June 06, 2024 8:14am Do you have a Healthcare Pow er of Polytechnic Registrar? Yes June 06, 2024 8:14am Living Will No August 11 1:20am Do you have a Healthcare Pow er of Polytechnic Registrar? Yes August 11, 2024 1:20am Living Will No October 12 1:58am Do you have a Healthcare Pow er of Polytechnic Registrar? Yes October 12, 2024 1:58am Living Will No November 09, 2024 2:52am Do you have a Healthcare Pow er of Polytechnic Registrar? Yes November 09, 2024 2:52am Advance Directives No March 23 2:31pm Advance Directive Response Recorded Date/ Time Living Will No October 12 1:58am Do you have a Healthcare Power of Polytechnic Registrar? Yes October 12, 2024 1:58am Living Will No November 09, 2024 2:52am Do you have a Healthcare Power of Polytechnic Registrar? Yes November 09, 2024 2:52am Advance Directives No March 23 2:31pm Advance Directive Response Recorded Date/ Time Advance Directives No March 23 2:31pm Hospital Course Note Internal Medicine Discharge Summary Patient ID: Remi Beltran Patient's PCP: No primary care provider on file. Admit Date: 06/17/2020 Discharge Date: 06/19/2020 Visit Status: Observation Admitting Physician: Brandon Ridley MD Discharge Physician: Micaela Chirinos MD Active Hospital Problems Diagnosis Date Noted ? Tachycardia [R00.0] 06/17/2020 Diagnosis Date ? Arthritis ? Asthma ? Diabetes mellitus (HCC) ? Fibromyalgia ? Fracture of nasal bones, closed ? GERD (gastroesophageal reflux disease) ? Hyperlipidemia ? Hypertension ? DALIA on CPAP ? Thyroid disease Code Status: Full Code Hospital Course: The patient is a 54 yo female who presented from [facility] for persistent tachycardia. Sinus tachycardia 2/2 multifactorial Nose bridge fracture Hypomagnesemia dehydration Morbid obesity BMI>45 Secondary hypothyroid DM2 DALIA CPAP Asthma not in exacerbation ? She was hydrated and repleted magnesium. Pain controlled with oxycodone. Echo unremarkable. D dimer trop FT3/4 UA negative Recommends (more content not included)... Assessments Diagnosis Tachycardia Tachycardia, unspecified Closed fracture of nasal bone, initial encounter Chief Complaint and Reason for Visit Chief Complaint RIGHT KNEE lumbar RIGHT KNEE Reason for Visit Derangement of media l meniscus of right knee Right knee DJD Spinal stenosis of lumbar region Lumbar radiculopathy, chronic Right knee DJD Spinal stenosis of lumbar region Chief Complaint left wrist LEFT UPPER EXT EDEMA STAT Reason for Visit Cellulitis of right foot Fracture of triquetral bone of left wrist Chief Complaint left wrist LEFT UPPER EXT EDEMA STAT LEFT WRIST xray RIGHT KNEE EORDER Reason for Visit Cellulitis of right foot Fracture of triquetral bone of left wrist Fracture of triquetral bone of left wrist Diabetes mellitus type 2 in obese Obesity Right knee DJD Essential (primary) hypertension Chief Complaint LEFT WRIST xray RIGHT KNEE EORDER RIGHT KNEE DJD Reason for Visit Fracture of triquetr al bone of left wrist Diabetes mellitus type 2 in obese Obesity Right knee DJD Essential (primary) hypertension Chief Complaint RIGHT KNEE EORDER RIGHT KNEE DJD right knee RT TOTAL KNEE W LAZARUS VIRAL SYMPTOMS Reason for Visit Diabetes mellitus ty pe 2 in obese Obesity Right knee DJD Essential (primary) hypertension Right knee pain Chief Complaint RIGHT KNEE EORDER RIGHT KNEE DJD right knee PREOP RT TOTAL KNEE W LAZARUS VIRAL SYMPTOMS VIRAL SYMPTOMS Reason for Visit Diabetes mellitus ty pe 2 in obese Obesity Right knee DJD Essential (primary) hypertension Right knee pain Chief Complaint RIGHT KNEE DJD right knee PREOP RT TOTAL KNEE W LAZARUS VIRAL SYMPTOMS VIRAL SYMPTOMS Reason for Visit Right knee pain Chief Complaint CELLULITIS, RIGHT FO OT Diabetes Reason for Visit Diabetes mellitus ty pe 2 in obese Essential (primary) hypertension Hyperlipemia Microalbuminuria Neuropathy Obesity Chief Complaint CELLULITIS, RIGHT FO OT Diabetes OSTEO Reason for Visit Diabetes mellitus ty pe 2 in obese Essential (primary) hypertension Hyperlipemia Microalbuminuria Neuropathy Obesity Diabetic foot ulcer Osteomyelitis Chief Complaint CELLULITIS, RIGHT FO OT Diabetes OSTEO OSTEO OSTEO OSTEO OSTEO OSTEO OSTEO OSTEO OSTEO Reason for Visit Diabetes mellitus ty pe 2 in obese Essential (primary) hypertension Hyperlipemia Microalbuminuria Neuropathy Obesity Cellulitis of right lower limb Diabetic foot ulcer Osteomyelitis Type 2 diabetes mellitus with foot ulcer Neuropathy Chief Complaint CELLULITIS, RIGHT FO OT Diabetes OSTEO OSTEO OSTEO OSTEO OSTEO OSTEO OSTEO OSTEO OSTEO OSTEO Reason for Visit Diabetes mellitus ty pe 2 in obese Essential (primary) hypertension Hyperlipemia Microalbuminuria Neuropathy Obesity Cellulitis of right lower limb Diabetic foot ulcer Osteomyelitis Type 2 diabetes mellitus with foot ulcer Neuropathy Cellulitis of right lower limb Debility Depression Diabetes mellitus Diabetes mellitus with diabetic polyneuropathy Diabetic foot ulcer Diabetic polyneuropathy Foot osteomyelitis, right GERD (gastroesophageal reflux disease) History of partial ray amputation of fifth toe of right foot Hyperlipidemia Hypokalemia Hypothyroidism Insomnia Type 2 diabetes mellitus with foot ulcer Non-pressure chronic ulcer of other part of right foot with fat layer exposed Obesity Chief Complaint OSTEO OSTEO OSTEO OSTEO OSTEO Medication Check 2 M FU 3 M FU Reason for Visit Osteomyelitis Neuropathy Cellulitis of right lower limb Diabetic foot ulcer Type 2 diabetes mellitus with foot ulcer Debility Depression Diabetic polyneuropathy GERD (gastroesophageal reflux disease) History of partial ray amputation of fifth toe of right foot Hyperlipidemia Hypokalemia Insomnia Diabetes mellitus Diabetes mellitus with diabetic polyneuropathy Hypothyroidism Obesity Cellulitis of right lower limb Diabetic foot ulcer Foot osteomyelitis, right Non-pressure chronic ulcer of other part of right foot with fat layer exposed Type 2 diabetes mellitus with foot ulcer Diabetes mellitus with diabetic polyneuropathy Diabetes mellitus Hypothyroidism Obesity Chief Complaint Chills (without feve r) WOUND Reason for Visit Hyperlipidemia Peripheral vascular disease, unspecified Diabetes mellitus with diabetic polyneuropathy Essential (primary) hypertension Non-pressure chronic ulcer of left heel and midfoot with fat layer exposed Type 2 diabetes mellitus with foot ulcer Chief Complaint Chills (without feve r) WOUND SOB Reason for Visit Hyperlipidemia Peripheral vascular disease, unspecified Diabetes mellitus with diabetic polyneuropathy Essential (primary) hypertension Non-pressure chronic ulcer of left heel and midfoot with fat layer exposed Type 2 diabetes mellitus with foot ulcer Chief Complaint Admit Date [facility] August 13, 2024 1 1:13am [facility] August 15, 2024 1 2:37pm [facility] August 19, 2024 1 1:55am [facility] August 20, 2024 11:24am Left leg wound split thickness skin Dece [facility] 2023 7:10am Left leg wound split thickness skin joce t August 21, 2024 9:34am Left leg wound split thickness skin Dece [facility] 2023 10:07am Left leg wound split thickness skin joce t August 23, 2024 12:22pm [facility] August 26, 2024 5:13pm [facility] August 27, 2024 12:24pm [facility] August 28, 2024 1:22pm [facility] September 02, 2024 2:05pm [facility] September 09, 2024 1:00pm [facility] September 09, 2024 3:45pm [facility] September 24, 2024 8 :26am [facility] October 07, 2024 3 :30pm SCREENING October 08, 2024 1 1:38am [facility] October 08, 2024 2 :04pm [facility] October 28, 2024 3:18pm [facility] October 29, 2024 7:39am [facility] November 18, 2024 3:1 6pm [facility] November 18, 2024 4:4 3pm Reason for Visit Admit Date Type 2 diabetes mellitus with hyperglyce [facility] August 21, 2024 9:34am Wound of left ankle August 21, 2024 9:34am Skin graft (allograft) (autograft) failu re August 21, 2024 9:34am Type 2 diabetes mellitus with hyperglyce [facility] September 09, 2024 1:00pm Wound of left ankle September 09, 2024 1:00pm Skin graft (allograft) (autograft) failu re September 09, 2024 1:00pm Type 2 diabetes mellitus with hyperglyce [facility] October 07, 2024 3:30pm Wound of left ankle October 07, 2024 3 :30pm Skin graft (allograft) (autograft) failu re October 07, 2024 3:30pm Wound of left ankle October 28, 2024 3:18pm Wound of left ankle November 18, 2024 3:1 6pm Chief Complaint Admit Date [facility] October 28, 2024 3:18pm [facility] October 29, 2024 7:39am [facility] November 18, 2024 3:1 6pm [facility] November 18, 2024 4:4 3pm Reason for Visit Admit Date Wound of left ankle October 28, 2024 3:18pm Wound of left ankle November 18, 2024 3:1 6pm Additional Source Comments INFORMATION SOURCE (unrecogn ized section and content) DATE CREATED AUTHOR 06/25/2020 [facility] DATE CREATED AUTHOR AUTHOR'S ORGANIZ ATION 04/21/2022 [facility] ([place]) DATE CREATED AUTHOR AUTHOR'S ORGANIZ ATION 07/09/2025 [facility] Goals (unrecognized section and content) Goals may be documented in a n alternate section No data available for this sectionGoals may be documented in an alternate sectionGoals may be documented in an alternate sectionGoals may be documented in an alternate sectionGoals may be documented in an alternate sectionGoals may be documented in an alternate sectionGoals may be documented in an alternate sectionGoals may be documented in an alternate sectionGoals may be documented in an alternate sectionGoals may be documented in an alternate sectionGoals may be documented in an alternate sectionGoals may be documented in an alternate sectionGoals may be documented in an alternate sectionGoals may be documented in an alternate sectionGoals may be documented in an alternate sectionGoals may be documented in an alternate sectionGoals may be documented in an alternate sectionGoals may be documented in an alternate section Care Team (unrecognized sect ion and content) Care Team Personnel Name: FRANKLIN EARLY MD Member Role: Primary Care Physician Address: Address: [facility] [place], [place] [address] Care Team Related Persons Name: QUYNH ARRIAZA Name: QUYNH ARRIAZA Name: QUYNH ARRIAZA Care Teams (unrecognized sec tion and content) Team Status: Active Member Role Status Dates Dr. Gulshan Early MD Primary Care Provider Active Team Status: Inactive Member Role Status Dates Dr. Gulshan Early MD Primary Care Provider Active Start: October 28, 2024 End: November 08, 2024 Dr. Victorino Solano MD Attending Provider Active Start: October 28, 2024 End: November 08, 2024 Dr. Victorino Solano MD Referring Provider Active Start: October 28, 2024 End: November 08, 2024 Team Status: Active Member Role Status Dates Dr. Gulshan Early MD Primary Care Provider Active Start: October 29, 2024 Dr. Victorino Solano MD Attending Provider Active Start: October 29, 2024 Dr. Victorino Solano MD Referring Provider Active Start: October 29, 2024 Dr. Victorino Solano MD Other Provider Active Star t: October 29, 2024 Team Status: Inactive Member Role Status Dates Dr. Gulshan Early MD Primary Care Provider Active Start: November 18, 2024 End: December 09, 2024 Dr. Victorino Solano MD Attending Provider Active Start: November 18, 2024 End: December 09, 2024 Dr. Victorino Solano MD Referring Provider Active Start: November 18, 2024 End: December 09, 2024 Team Status: Active Member Role Status Dates Dr. Gulshan Early MD Primary Care Provider Active Start: November 18, 2024 Dr. Victorino Solano MD Attending Provider Active Start: November 18, 2024 Dr. Victorino Solano MD Referring Provider Active Start: November 18, 2024 Dr. Victorino Solano MD Other Provider Active Star t: November 18, 2024 Team Status: Inactive Member Role Status Dates Dr. Gulshan Early MD Primary Care Provider Active Start: November 21, 2024 End: November 21, 2024 Dr. Gulshan Early MD Attending Provider Active Start: November 21, 2024 End: November 21, 2024 Team Status: Inactive Member Role Status Dates Dr. Gulshan Early MD Primary Care Provider Active Start: December 30, 2024 End: December 30, 2024 Dr. Gulshan Early MD Attending Provider Active Start: December 30, 2024 End: December 30, 2024 Dr. Gulshan Early MD Referring Provider Active Start: December 30, 2024 End: December 30, 2024 Team Status: Inactive Member Role Status Dates Dr. Gulshan Early MD Primary Care Provider Active Start: January 02, 2025 End: January 02, 2025 Dr. Gulshan Early MD Attending Provider Active Start: January 02, 2025 End: January 02, 2025 Dr. Gulshan Early MD Referring Provider Active Start: January 02, 2025 End: January 02, 2025 Team Status: Inactive Member Role Status Dates Dr. Gulshan Early MD Primary Care Provider Active Start: February 05, 2025 End: February 05, 2025 Dr. Gulshan Early MD Attending Provider Active Start: February 05, 2025 End: February 05, 2025 Team Status: Active Member Role Status Dates Dr. Gulshan Early MD Family Provider Active Dr. Gulshan Early MD Primary Care Provider Active Team Status: Inactive Member Role Status Dates Dr. Gulshan Early MD Primary Care Provider, Referring Provider Active Dr. Clyde Almanza DO Attending Provider Active Team Status: Inactive Member Role Status Dates Dr. Gulshan Early MD Primary Care Provi lloyd, Attending Provider, Referring Provider Active Team Status: Inactive Member Role Status Dates Dr. Gulshan Early MD Primary Care Provider Active Dr. Clyde Almanza DO Attending Provider, Referring Provider Active Team Status: Inactive Member Role Status Dates Dr. Gulshan Early MD Primary Care Provider Active Dr. Clyde Almanza DO Attending Provider Active Team Status: Inactive Member Role Status Dates Dr. Gulshan Early MD Primary Care Provider, Attending Provider Active Team Status: Active Member Role Status Dates Dr. Gulshan Early MD Primary Care Provider Active Dr. Vince Reno MD Attending Provider Active Dr. Clyde Almanza DO Referring Provider Active Team Status: Inactive Member Role Status Dates Dr. Gulshan Early MD Primary Care Provider, Referring Provider Active AMEE Olivares Attending Provider Active Team Status: Inactive Member Role Status Dates Dr. Gulshan Early MD Primary Care Provider Active Dr. Tereso Navarro DPM Attending Provider, Referrin g Provider Active Team Status: Active Member Role Status Dates Dr. Gulshan Early MD Primary Care Provider Active Dr. Aditya Xiao DO Emergency Provider Active Dr. Macario Tyler MD Admit Provider, Attending Provider Active Team Status: Active Member Role Status Dates Dr. Gulshan Early MD Primary Care Provider Active Dr. Aditya Xiao DO Emergency Provider Active Dr. Macario Tyler MD Admit Provi lloyd, Attending Provider, Other Provider Active Dr. Tereso Navarro DPM Other Provider Active Dr. Victorino Mixon MD Other Provider Active Team Status: Active Member Role Status Dates Dr. Gulshan Early MD Primary Care Provider Active Dr. Pérez Araya MD Attending Provider Active Team Status: Active Member Role Status Dates Dr. Gulshan Early MD Primary Care Provider Active Dr. Aditya Xiao DO Emergency Provider Active Dr. Macario Tyler MD Admit Provi lloyd, Attending Provider, Other Provider Active Dr. Tereso Navarro DPM Other Provider Active Dr. Victorino Mixon MD Other Provider Active Dr. Pérez Araya MD Other Provider Active Team Status: Active Member Role Status Dates Dr. Gulshan Early MD Primary Care Provider Active Dr. Aditya Xiao DO Emergency Provider Active Dr. Macario Tyler MD Admit Provider, Other Pro vider Active Dr. Tereso Navarro DPM Other Provider Active Dr. Victorino Mixon MD Other Provider Active Dr. Pérez Araya MD Other Provider Active DINO Guerra Attending Provider Active Team Status: Inactive Member Role Status Dates Dr. Gulshan Early MD Primary Care Provider Active Dr. Aditya Xiao DO Emergency Provider Active Dr. Macario Tyler MD Admit Provider, Attending Provider Active Dr. Tereso Navarro DPM Other Provider Active Dr. Victorino Mixon MD Other Provider Active Dr. Pérez Araya MD Other Provider Active Team Status: Inactive Member Role Status Dates Dr. Gulshan Early MD Primary Care Provi lloyd, Admit Provider, Attending Provider Active Dr. Tereso Navarro DPM Other Provider Active Team Status: Inactive Member Role Status Dates Dr. Gulshan Early MD Primary Care Provider, Referring Provider Active Dr. Adolph Leigh MD Attending Provider Active Team Status: Inactive Member Role Status Dates Dr. Gulshan Early MD Primary Care Provider Active Dr. Zack Smith DPM Attending Provider Active Dr. Tereso Navarro DPM Referring Provider Active Team Status: Active Member Role Status Dates Dr. Gulshan Early MD Primary Care Provi lloyd, Attending Provider, Referring Provider Active Team Status: Active Member Role Status Dates Dr. Gulshan Early MD Primary Care Provider Active Start: August 13, 2024 Dr. Victorino Solano MD Other Provider Active Star t: August 13, 2024 Simranjorge Diaz FIELD CLERK, FIELD CLERK-C Attending Provider Active Start: August 13, 2024 Simranfeli CardenasEmily FIELD CLERK, FIELD CLERK-C Referring Provider Active Start: August 13, 2024 Team Status: Active Member Role Status Dates Dr. Gulshan Early MD Primary Care Provider Active Start: August 15, 2024 Dr. Victorino Solano MD Referring Provider Active Start: August 15, 2024 Dr. Victorino Solano MD Other Provider Active Star t: August 15, 2024 Dr. Patty Sol MD Attending Provider Active Start: August 15, 2024 Team Status: Active Member Role Status Dates Dr. Gulshan Early MD Primary Care Provider Active Start: August 19, 2024 Dr. Victorino Solano MD Other Provider Active Star t: August 19, 2024 Simranjorge Diaz FIELD CLERK, FIELD CLERK-C Attending Provider Active Start: August 19, 2024 Simranjorge Diaz FIELD CLERK, FIELD CLERK-C Referring Provider Active Start: August 19, 2024 Team Status: Active Member Role Status Dates Dr. Gulshan Early MD Primary Care Provider Active Start: August 20, 2024 Dr. Victorino Solano MD Referring Provider Active Start: August 20, 2024 Dr. Victorino Solano MD Other Provider Active Star t: August 20, 2024 Dr. Eros Batista MD Attending Provider Active Start: August 20, 2024 Team Status: Active Member Role Status Dates Dr. Gulshan Early MD Primary Care Provider Active Start: August 21, 2024 Dr. Victorino Solano MD Attending Provider Active Start: August 21, 2024 Dr. Victorino Solano MD Referring Provider Active Start: August 21, 2024 Dr. Victorino Solano MD Other Provider Active Star t: August 21, 2024 Team Status: Inactive Member Role Status Dates Dr. Gulshan Early MD Primary Care Provider Active Start: August 21, 2024 End: August 23, 2024 Dr. Victorino Solano MD Admit Provider Active Star t: August 21, 2024 End: August 23, 2024 Dr. Victorino Solano MD Attending Provider Active Start: August 21, 2024 End: August 23, 2024 Dr. Victorino Solano MD Referring Provider Active Start: August 21, 2024 End: August 23, 2024 Team Status: Active Member Role Status Dates Dr. Gulshan Early MD Primary Care Provider Active Start: August 22, 2024 Dr. Victorino Solano MD Admit Provider Active Star t: August 22, 2024 Dr. Victorino Solano MD Attending Provider Active Start: August 22, 2024 Dr. Victorino Solano MD Referring Provider Active Start: August 22, 2024 Dr. Victorino Solano MD Other Provider Active Star t: August 22, 2024 Team Status: Active Member Role Status Dates Dr. Gulshan Early MD Primary Care Provider Active Start: August 23, 2024 Dr. Victorino Solano MD Admit Provider Active Star t: August 23, 2024 Dr. Victorino Solano MD Attending Provider Active Start: August 23, 2024 Dr. Victorino Solano MD Referring Provider Active Start: August 23, 2024 Dr. Victorino Solano MD Other Provider Active Star t: August 23, 2024 Team Status: Active Member Role Status Dates Dr. Gulshan Early MD Primary Care Provider Active Start: August 26, 2024 Dr. Victorino Solano MD Attending Provider Active Start: August 26, 2024 Dr. Victorino Solano MD Referring Provider Active Start: August 26, 2024 Dr. Victorino Solano MD Other Provider Active Star t: August 26, 2024 Team Status: Active Member Role Status Dates Dr. Gulshan Early MD Primary Care Provider Active Start: August 27, 2024 Dr. Victorino Solano MD Referring Provider Active Start: August 27, 2024 Dr. Victorino Solano MD Other Provider Active Star t: August 27, 2024 Dr. Eros Batista MD Attending Provider Active Start: August 27, 2024 Team Status: Active Member Role Status Dates Dr. Gulshan Early MD Primary Care Provider Active Start: August 28, 2024 Dr. Victorino Solano MD Other Provider Active Star t: August 28, 2024 Simran Diaz FIELD CLERK, FIELD CLERK-C Attending Provider Active Start: August 28, 2024 Simran Diaz FIELD CLERK, FIELD CLERK-C Referring Provider Active Start: August 28, 2024 Team Status: Inactive Member Role Status Dates Dr. Gulshan Early MD Primary Care Provider Active Start: August 28, 2024 End: August 28, 2024 Dr. Gulshan Early MD Attending Provider Active Start: August 28, 2024 End: August 28, 2024 Team Status: Active Member Role Status Dates Dr. Gulshan Early MD Primary Care Provider Active Start: September 02, 2024 Dr. Victorino Solano MD Other Provider Active Star t: September 02, 2024 Simran Diaz FIELD CLERK, FIELD CLERK-C Attending Provider Active Start: September 02, 2024 Simran Diaz FIELD CLERK, FIELD CLERK-C Referring Provider Active Start: September 02, 2024 Team Status: Inactive Member Role Status Dates Dr. Gulshan Early MD Primary Care Provider Active Start: September 09, 2024 End: September 10, 2024 Dr. Victorino Solano MD Attending Provider Active Start: September 09, 2024 End: September 10, 2024 Dr. Victorino Solano MD Referring Provider Active Start: September 09, 2024 End: September 10, 2024 Team Status: Active Member Role Status Dates Dr. Gulshan Early MD Primary Care Provider Active Start: September 09, 2024 Dr. Victorino Solano MD Other Provider Active Star t: September 09, 2024 Simranjorge Diaz FIELD CLERK, FIELD CLERK-C Attending Provider Active Start: September 09, 2024 Simran Diaz FIELD CLERK, FIELD CLERK-C Referring Provider Active Start: September 09, 2024 Team Status: Active Member Role Status Dates Dr. Gulshan Early MD Primary Care Provider Active Start: September 24, 2024 Dr. Victorino Solano MD Referring Provider Active Start: September 24, 2024 Dr. Victorino Solano MD Other Provider Active Star t: September 24, 2024 Dr. Eros Batista MD Attending Provider Active Start: September 24, 2024 Team Status: Inactive Member Role Status Dates Dr. Gulshan Early MD Primary Care Provider Active Start: October 04, 2024 End: October 04, 2024 Dr. Gulshan Early MD Attending Provider Active Start: October 04, 2024 End: October 04, 2024 Team Status: Inactive Member Role Status Dates Dr. Gulshan Early MD Primary Care Provider Active Start: October 07, 2024 End: October 11, 2024 Dr. Victorino Solano MD Attending Provider Active Start: October 07, 2024 End: October 11, 2024 Dr. Victorino Solano MD Referring Provider Active Start: October 07, 2024 End: October 11, 2024 Team Status: Inactive Member Role Status Dates Dr. Gulshan Early MD Primary Care Provider Active Start: October 08, 2024 End: October 08, 2024 Dr. Gulshan Early MD Attending Provider Active Start: October 08, 2024 End: October 08, 2024 Dr. Gulshan Early MD Referring Provider Active Start: October 08, 2024 End: October 08, 2024 Team Status: Active Member Role Status Dates Dr. Gulshan Early MD Primary Care Provider Active Start: October 08, 2024 Dr. Victorino Solano MD Attending Provider Active Start: October 08, 2024 Dr. Victorino Solano MD Referring Provider Active Start: October 08, 2024 Dr. Victorino Solano MD Other Provider Active Star t: October 08, 2024 Team Status: Active Member Role Status Dates Dr. Gulshan Early MD Primary Care Provider Active Start: November 18, 2024 Dr. Victorino Solano MD Attending Provider Active Start: November 18, 2024 Dr. Victorino Solano MD Referring Provider Active Start: November 18, 2024 Team Status: Active Member Role/Relationship Status Dates Dr. Gulshan Early MD Primary Care Provider Active Team Status: Inactive Member Role/Relationship Status Dates Dr. Gulshan Early MD Primary Care Provider Active Start: December 30, 2024 End: December 30, 2024 Dr. Gulshan Early MD Attending Provider Active Start: December 30, 2024 End: December 30, 2024 Dr. Gulshan Early MD Referring Provider Active Start: December 30, 2024 End: December 30, 2024 Team Status: Inactive Member Role/Relationship Status Dates Dr. Gulshan Early MD Primary Care Provider Active Start: January 02, 2025 End: January 02, 2025 Dr. Gulshan Early MD Attending Provider Active Start: January 02, 2025 End: January 02, 2025 Dr. Gulshan Early MD Referring Provider Active Start: January 02, 2025 End: January 02, 2025 Team Status: Inactive Member Role/Relationship Status Dates Dr. Gulshan Early MD Primary Care Provider Active Start: February 05, 2025 End: February 05, 2025 Dr. Gulshan Early MD Attending Provider Active Start: February 05, 2025 End: February 05, 2025 Team Status: Inactive Member Role/Relationship Status Dates Dr. Gulshan Early MD Primary Care Provider Active Start: March 18, 2025 End: March 18, 2025 Dr. Gulshan Early MD Attending Provider Active Start: March 18, 2025 End: March 18, 2025 Team Status: Inactive Member Role/Relationship Status Dates Dr. Gulshan Early MD Primary Care Provider Active Start: April 01, 2025 End: April 01, 2025 Dr. Gulshan Early MD Attending Provider Active Start: April 01, 2025 End: April 01, 2025 Team Status: Inactive Member Role/Relationship Status Dates Dr. Gulshan Early MD Primary Care Provider Active Start: January 02, 2025 End: January 02, 2025 Dr. Gulshan Early MD Attending Provider Active Start: January 02, 2025 End: January 02, 2025 Dr. Gulshan Early MD Referring Provider Active Start: January 02, 2025 End: January 02, 2025 Team Status: Inactive Member Role/Relationship Status Dates Dr. Gulshan Early MD Primary Care Provider Active Start: February 05, 2025 End: February 05, 2025 Dr. Gulshan Early MD Attending Provider Active Start: February 05, 2025 End: February 05, 2025 Team Status: Inactive Member Role/Relationship Status Dates Dr. Gulshan Early MD Primary Care Provider Active Start: March 18, 2025 End: March 18, 2025 Dr. Gulshan Early MD Attending Provider Active Start: March 18, 2025 End: March 18, 2025 Team Status: Inactive Member Role/Relationship Status Dates Dr. Gulshan Early MD Primary Care Provider Active Start: April 01, 2025 End: April 01, 2025 Dr. Gulshan Early MD Attending Provider Active Start: April 01, 2025 End: April 01, 2025 Team Status: Inactive Member Role/Relationship Status Dates Dr. Gulshan Early MD Primary Care Provider Active Start: April 25, 2025 End: April 25, 2025 Dr. Gulshan Early MD Attending Provider Active Start: April 25, 2025 End: April 25, 2025 Team Status: Active Member Role/Relationship Status Dates Dr. Gulshan Early MD Primary care physician Active Team Status: Inactive Member Role/Relationship Status Dates Dr. Gulshan Early MD Primary care physician Active Start: March 18, 2025 End: March 18, 2025 Dr. Gulshan Early MD Attending physician Active Start: March 18, 2025 End: March 18, 2025 Team Status: Inactive Member Role/Relationship Status Dates Dr. Gulshan Early MD Primary care physician Active Start: April 01, 2025 End: April 01, 2025 Dr. Gulshan Early MD Attending physician Active Start: April 01, 2025 End: April 01, 2025 Team Status: Inactive Member Role/Relationship Status Dates Dr. Gulshan Early MD Primary care physician Active Start: April 25, 2025 End: April 25, 2025 Dr. Gulshan Early MD Attending physician Active Start: April 25, 2025 End: April 25, 2025 Team Status: Inactive Member Role/Relationship Status Dates Dr. Gulshan Early MD Primary care physician Active Start: May 20, 2025 End: May 20, 2025 Dr. Gulshan Early MD Attending physician Active Start: May 20, 2025 End: May 20, 2025 FOR RECORDS PERTAINING TO PATIENTS WHO ARE [...] BE BASED ON THE PRIMARY CLINICAL RECORDS. [employer] provides no warranty or guarantee of the accuracy or completeness of information in this document.
== END | disposition home or self-care (01) ==
LOC: LAB.FUTURE 16:53 → POLAB3 09-09 09:20
PROVIDERS: PCP Family Medicine Geriatric Medicine; Visit Provider Family Medicine Geriatric Medicine
DX: E03.9 Hypothyroidism, unspecified (principal); R06.2 Wheezing
CPT/HCPCS: 87631